=== PATIENT | female | born 1960 | race Caucasian/White ===

== ENCOUNTER 2020-04-13 11:06 | Outpatient (RCR) | payer MEDICARE, OTHER, MEDICAID, SELFPAY | END 2020-08-21 11:43 | disposition home or self-care (01) | LOC: HO.WCC 11:06 | PROVIDERS: PCP Nurse Practitioner Family; Visit Provider Physician Assistant | DX: Z09 Encounter for follow-up examination after completed treatment for conditions other than malignant neoplasm (principal); E11.51 Type 2 diabetes mellitus with diabetic peripheral angiopathy without gangrene | CPT/HCPCS: 11042; 87071; 87077; 87147; 87186; 87205; 97597; 97605; 99212 ==

== ENCOUNTER → 2020-04-24 13:15 | Outpatient (BNVA) | payer MEDICARE, OTHER, MEDICAID, SELFPAY | PROVIDERS: PCP Family Medicine; Visit Provider Internal Medicine | DX: E11.628 Type 2 diabetes mellitus with other skin complications (principal); Z79.899 Other long term (current) drug therapy | CPT/HCPCS: 99212 ==

== ENCOUNTER → 2020-05-03 13:05 | Outpatient (BNVA) | payer MEDICARE, MEDICAID, SELFPAY | PROVIDERS: PCP Family Medicine; Referring Provider Family Medicine; Visit Provider Hospitalist | DX: J44.9 Chronic obstructive pulmonary disease, unspecified (principal); F17.200 Nicotine dependence, unspecified, uncomplicated; Z71.6 Tobacco abuse counseling; Z79.899 Other long term (current) drug therapy | CPT/HCPCS: 99212 ==

== ENCOUNTER 2020-05-28 11:10 | Inpatient (IN) | payer MEDICARE, MEDICAID, SELFPAY ==
[2020-05-28] VITALS (8 sets, daily range): BP systolic 133–168; BP diastolic 53–77; PULSE 59–75; RESP 16–19; TEMP 36.3–37.7; O2SAT 93–98; BMI 33.3
--- NOTE | 2020-05-28 11:44 | ED.WOUNDLAC ---
HPI - Wound/Laceration General Chief Complaint: Wound/Laceration Stated Complaint: FOOT PAIN Time Seen by Provider: 05/28/20 11:34 Source: patient Mode of arrival: ambulatory Limitations: no limitations History of Present Illness HPI narrative: Patient with foot ulceration for 5 months with no improvement. No antibiotics at this time. Patient states no fever or redness. patient is noncompliant with her follow up with ID, and wound clinic as I have reviewed her medical history Onset (ago): month(s) Extremity Location: right: foot Related Data Home Medications Medication Instructions Recorded Confirmed albuterol sulfate 90 mcg/actuation 2 puff PO Q4H PRN 04/24/20 05/28/20 aerosol inhaler aspirin 81 mg tablet,delayed 81 mg PO DAILY 04/24/20 05/28/20 release atorvastatin 40 mg tablet 40 mg PO BEDTIME 04/24/20 05/28/20 bupropion HCl 150 mg tablet,12 hr 150 mg PO BID 04/24/20 05/28/20 sustained-release cholecalciferol (vitamin D3) 50 50 mcg PO DAILY 04/24/20 05/28/20 mcg (2,000 unit) tablet furosemide 20 mg tablet 20 mg PO QAM 04/24/20 05/28/20 insulin degludec 100 unit/mL (3 12 unit SUBCUT QAM 04/24/20 05/28/20 mL) subcutaneous pen lancets 33 gauge #100 ea 04/24/20 05/03/20 lisinopril 10 mg tablet 10 mg PO DAILY 04/24/20 05/28/20 metformin 1,000 mg tablet 1,000 mg PO BIDWMEAL 04/24/20 05/28/20 omeprazole 20 mg capsule,delayed 20 mg PO DAILY 04/24/20 05/28/20 release gabapentin 600 mg tablet 600 mg PO TID 05/03/20 05/28/20 fluticasone propionate [Flovent 2 puff INHALATION BID 05/28/20 05/28/20 HFA] insulin aspart U-100 [Novolog 0 unit SUBCUT QIDACHS 05/28/20 05/28/20 Flexpen U-100 Insulin] methadone [Methadone Intensol] 95 mg DAILY 05/28/20 05/28/20 nicotine 1 patch TRANSDERMAL DAILY 05/28/20 05/28/20 nicotine (polacrilex) 2 mg BUCCAL Q2H PRN 05/28/20 05/28/20 Allergies Allergy/AdvReac Type Severity Reaction Status Date / Time No Known Allergies Allergy Verified 05/03/20 13:17 Review of Systems Constitutional: Constitutional: Reports no additional constitutional complaints Eyes: Eyes: Reports no additional eye complaints ENT: Denies dizziness Cardiovascular: Cardiovascular: Reports no additional cardiovascular complaints Respiratory: Respiratory: Reports as per HPI Gastrointestinal: Gastrointestinal: Reports no additional gastrointestinal complaints Genitourinary: Genitourinary: Reports no additional female genitourinary complaints Musculoskeletal: Musculoskeletal: Reports no additional musculoskeletal complaints Integumentary/Breasts: Skin/Breast: Denies rash Neurologic: Reports system reviewed and no additional complaints, except as documented, Denies dizziness and Denies Sensory deficit (Neuro) Psychiatric: Psychiatric: Denies anxiety [facility] Past Medical History Medical History (Updated 05/28/20 @ 13:36 by Cory Cook MD) COPD (chronic obstructive pulmonary disease) Diabetic foot infection Pulmonary nodule Tobacco dependence Social History Social History (Updated 05/03/20 @ 13:08 by Tram Taylor MA) Alcohol intake: never Smoking Status: Current every day smoker Tobacco Type: Cigarette Packs Per Day: 1 Cigarettes Per Day: 20.0 Years Smoked: 14 years old Use of substances other than those prescribed or required for medical reasons: No Advance Directives: No Advance Directives Information Provided: No Physical Exam Vital Signs: Vital Signs: Last Vital Signs Temp 99.5 F 05/28/20 11:15 Pulse 64 05/28/20 14:00 Resp 18 05/28/20 14:00 BP 154/63 H 05/28/20 14:00 Pulse Ox 96 05/28/20 14:00 Body Mass Index 33.3 Const: Other: Female looking older than stated age Nutritional Appearance: average body habitus Orientation/consciousness: oriented to person and patient oriented x3 Limitations: no limitations HENMT: Head: Yes normal to inspection Ears: external ears normal General nose exam: Normal external nose present Mouth: Normal oral and palatal mucosa present and oropharynx normal Throat: Yes posterior oropharynx normal Eyes: General: appearance normal, both eyes and all related structures Neck: Other: supple Neck: Yes normal visual inspection Chest: Chest palpation & inspection: normal inspection of the chest Resp: Auscultation: clear to auscultation bilaterally Cardio: Jugular venous distension: no JVD Rate: regular rate Rhythm: regular rhythm Heart sounds: S1 normal heart sound present and S2 normal heart sound present GI: Inspection: Yes normal to inspection Palpation (GI): Soft to palpation, nontender and No hepatosplenomegaly present Auscultation: normal bowel sounds : General: Yes no CVA tenderness Back/Spine/Pelvis: Back: no CVA tenderness Skin: General skin exam: no rashes or lesions noted Neuro: General: oriented to person and patient oriented x3 Cranial nerves: Yes CN's II-XII intact bilaterally Motor exam (neuro): 5/5 motor strength present throughout Sensory Exam: No Sensory deficit (Neuro) Extrem: Other: right sole with large ulcer good margins, some pus drainage but not overtly infected, there is a sinus with pus drainage Psych: Appearance: grossly normal Course Course Course Narrative: patient with osteo on xray with a sinus draining pus will start abx and admit Reevaluation(s) Reevaluation #1: discussed with Dr. Spence and Dr. Caro and they agree with plan MDM - Wound/Laceration MDM Narrative Medical decision making narrative: Increasing pain and lytic lesion on foot xray will admit for osteo, increasing elevated WBC 17. Lab Data Result diagrams: 05/28/20 12:33 05/28/20 12:33 Labs: Lab Results 05/28/20 05/28/20 05/28/20 Range/Units 12:33 12:33 12:33 WBC 17.3 H (4.8-10.8) X10*3/uL RBC 4.02 L (4.20-5.50) X10*6/uL Hgb 11.5 L (12.0-16.0) g/dl Hct 35.8 L (37-47) % MCV 89.1 (80-98) fL MCH 28.6 (27.0-33.0) pg MCHC 32.1 (31.0-35.0) g/dl RDW 13.4 (11.0-16.0) % Plt Count 275 (160-400) X10*3/uL MPV 10.5 (9.4-12.3) fL Immature Gran % (Auto) 0.5 H (0.0-0.4) % Neut % (Auto) 85.6 H (45-73) % Lymph % (Auto) 7.4 L (20-40) % [place] % (Auto) 6.1 (2-11) % Eos % (Auto) 0.2 (0-4) % Baso % (Auto) 0.2 (0-2) % Lymph # (Auto) 1.3 (1.2-4.9) X10*3/uL [place] # (Auto) 1.1 (0.1-1.2) X10*3/uL Eos # (Auto) 0.0 (0.0-0.4) X10*3/uL Baso # (Auto) 0.0 (0.0-0.2) X10*3/uL Abs Immat Gran (auto) 0.08 H (0.00-0.03) X10*3/uL Absolute Neuts (auto) 14.8 H (2.0-8.3) X10*3/uL Absolute Nucleated RBC 0.000 (0.0-0.012) X10*3/uL Nucleated RBC % (auto) 0.0 (0.0-0.2) /100WBC ESR 83 H (0-20) MM/HR Sodium 137 (135-145) mmol/L Potassium 4.0 (3.3-5.1) mmol/l Chloride 99 (96-108) mmol/L Carbon Dioxide 30 H (22-29) mmol/L Anion Gap 12 (12-20) BUN 10 (9-16) mg/dL Creatinine 0.76 (0.5-1.4) mg/dL Estim Creat Clear Calc 69.4 Estimated GFR > 60 Random Glucose 274 H (60-115) mg/dL Calcium 9.0 (8.4-10.2) mg/dL Discharge Plan Discharge Clinical Impression: Diabetic foot infection Osteomyelitis Qualifiers: Osteomyelitis type: chronic, with draining sinus Osteomyelitis location: foot Laterality: right Qualified Code(s): M86.471 - Chronic osteomyelitis with draining sinus, right ankle and foot Patient Disposition: Admitted As Inpatient
--- NOTE | 2020-05-28 12:08 | XR_ITS ---
EXAMINATION: XR FOOT, RIGHT CLINICAL INFORMATION: Rule out osteomyelitis COMPARISON: Previous x-ray October 2019, CT December 2019 and MRI January 2020 TECHNIQUE: AP, lateral, and oblique views of the right foot. FINDINGS: There is increasing of bone loss seen at the third, fourth and fifth MTT joints. There is increased sclerosis of the third fourth and fifth metatarsal shafts. There is an overlying soft tissue defect along the lateral and plantar soft tissues. Differential would include chronic osteomyelitis and Charcot changes. There are are degenerative changes of the midfoot. There are plantar calcaneal spurs. No radiopaque soft tissue foreign body is seen. XR/XR foot RT min 3V IMPRESSION: Increasing bone loss at the third fourth and fifth MTT joints, increasing sclerosis of the shafts of the third fourth and fifth metatarsal bones and large overlying plantar and lateral soft tissue ulcer. Differential would include chronic osteomyelitis and Charcot changes.
[2020-05-28 12:46] LABS: Basophils Percent Auto 0.2 % (0-2); Eosinophils Percent Auto 0.2 % (0-4); Hematocrit 35.8 % (37-47); Hemoglobin 11.5 g/dl (12.0-16.0); Imm Gran Abs Auto 0.08 X10*3/uL (0.00-0.03); Imm Gran Pct Auto 0.5 % (0.0-0.4); Lymphocytes Absolute Auto 1.3 X10*3/uL (1.2-4.9); Lymphocytes Percent Auto 7.4 % (20-40); MANUAL DIFF FLAG NO; Mean Corpuscular HGB Conc 32.1 g/dl (31.0-35.0); Mean Corpuscular Hemoglobin 28.6 pg (27.0-33.0); Mean Corpuscular Volume 89.1 fL (80-98); Mean Platelet Volume 10.5 fL (9.4-12.3); Monocytes Absolute Auto 1.1 X10*3/uL (0.1-1.2); Monocytes Percent Auto 6.1 % (2-11); Neutrophils Absolute Auto 14.8 X10*3/uL (2.0-8.3); Neutrophils Percent Auto 85.6 % (45-73); Platelet Count 275 X10*3/uL (160-400); Red Blood Count 4.02 X10*6/uL (4.20-5.50); Red Cell Distribution Width 13.4 % (11.0-16.0); White Blood Count 17.3 X10*3/uL (4.8-10.8)
--- NOTE | 2020-05-28 13:04 | PC.NURSE ---
Patient arrives complaining of ulcer on bottom of right foot. Reports significant increase in pain. Being seen by wound clinic. Patient is alert and oriented. Respirations regular and even. Skin otherwise PWD. Seen by Dr. Cook. Labs drawn by fiberglass product tester. Awaiting results.
[2020-05-28 13:06] LABS: Anion Gap 12 (12-20); Blood Urea Nitrogen 10 mg/dL (9-16); Carbon Dioxide 30 mmol/L (22-29); Chloride 99 mmol/L (96-108); Creatinine Clr Calc Pharmacy 69.4; Estimated Glomerular Filt Rate > 60; Glucose Random 274 mg/dL (60-115); Sodium 137 mmol/L (135-145)
[2020-05-28 13:33] LABS: Erythrocyte Sedimentation Rate 83 MM/HR (0-20)
[2020-05-28] MEDS: Piperacillin Sodium/Tazobactam 3.375 GM in 0.9 % Sodium Chloride 50 ML IV ×2 (13:47→21:05)
--- NOTE | 2020-05-28 13:53 | PC.NURSE ---
IV established and blood cultures drawn. Patient tolerated well. Raman Sarabia Will continue to monitor.
--- NOTE | 2020-05-28 14:49 | PC.NURSE ---
Hung Vancomycin and medicated with patients dose of methadone. Patient tolerating well. Appears comfortable at this time with regular, even, and nonlabored respirations. VSS. Skin otherwise PWD. Awaiting admission orders.
[2020-05-28 15:17] LABS: COVID-19 Test Negative (Negative)
--- NOTE | 2020-05-28 15:42 | P.HPHOSP_ITS ---
History of Present Illness Date of Service: 05/28/20 Chief Complaint: foot pain This is a 60 yo F with a PMH of diabetes and prior diabetic foot infections who presents presents to the hospital with complaints of right foot pain of several days duration. She reports associated chills at home but no fevers. She r eports she is complaint with her visits to the wound care clinic. She reports that she has had a diabetic shoe prescribed to her in the past, but she has not used this. SHe also reports that she completed IV anbitoiics earlier this year for osteo of the same. In the ED, she unnder went work up which showed Leukocytosis of 17, ESR 89, XR consistant with chronic osteo vs charcot changes. She has blood cultures drawn, given a dose of vancomcyin+zosyn and admission was requested. Review of Systems Review of Systems: General - denies fevers, +chills HEENT -denies blurred vision, denies headache, denies sore throat Cardiovascular - denies chest pain or palpitations, denies edema Respiratory - denies shortness of breath, coughing, wheezing Gastrointestinal - denies abdominal pain, nausea, vomiting, diarrhea - denies flank pain, denies dysuria, denies frequency or urgency Musculoskeletal - R foot pain, +ucleration, +drainage Neurological - denies any focal weakness or numbness Skin, denies any bruising or redness Psychiatric - denies any suicidal ideation, hallucinations, homicidal ideation Endocrinology - denies intolerance to hot / cold temperatures ENT: Denies dizziness Neurologic: Reports system reviewed and no additional complaints, except as documented, Denies dizziness and Denies Sensory deficit (Neuro) [facility] Medical History (Updated 05/28/20 @ 16:04 by Leo Spence MD) Chronic prescription opiate use COPD (chronic obstructive pulmonary disease) Depression Diabetes mellitus Diabetic foot infection Dyslipidemia Glaucoma Pulmonary emboli Pulmonary nodule Tobacco dependence Family History (Updated 05/28/20 @ 16:05 by Leo Spence MD) Other CVA (cerebral vascular accident) Surgical History (Updated 05/28/20 @ 16:06 by Leo Spence MD) Cataract extraction status, left eye Cataract extraction status, right eye Hx of cholecystectomy Social History (Updated 05/03/20 @ 13:08 by Tram Taylor MA) Alcohol intake: never Smoking Status: Current every day smoker Tobacco Type: Cigarette Packs Per Day: 1 Cigarettes Per Day: 20.0 Years Smoked: 14 years old Use of substances other than those prescribed or required for medical reasons: No Advance Directives: No Advance Directives Information Provided: No Meds Allergies Allergy/AdvReac Type Severity Reaction Status Date / Time No Known Allergies Allergy Verified 05/03/20 13:17 Home Medications Medication Instructions Recorded Confirmed Type albuterol sulfate 90 mcg/actuation 2 puff PO Q4H PRN 04/24/20 05/28/20 History aerosol inhaler aspirin 81 mg tablet,delayed 81 mg PO DAILY 04/24/20 05/28/20 History release atorvastatin 40 mg tablet 40 mg PO BEDTIME 04/24/20 05/28/20 History bupropion HCl 150 mg tablet,12 hr 150 mg PO BID 04/24/20 05/28/20 History sustained-release cholecalciferol (vitamin D3) 50 50 mcg PO DAILY 04/24/20 05/28/20 History mcg (2,000 unit) tablet furosemide 20 mg tablet 20 mg PO QAM 04/24/20 05/28/20 History insulin degludec 100 unit/mL (3 12 unit SUBCUT QAM 04/24/20 05/28/20 History mL) subcutaneous pen lancets 33 gauge #100 ea 04/24/20 05/03/20 History lisinopril 10 mg tablet 10 mg PO DAILY 04/24/20 05/28/20 History metformin 1,000 mg tablet 1,000 mg PO BIDWMEAL 04/24/20 05/28/20 History omeprazole 20 mg capsule,delayed 20 mg PO DAILY 04/24/20 05/28/20 History release gabapentin 600 mg tablet 600 mg PO TID 05/03/20 05/28/20 History fluticasone propionate [Flovent 2 puff INHALATION BID 05/28/20 05/28/20 History HFA] insulin aspart U-100 [Novolog 0 unit SUBCUT QIDACHS 05/28/20 05/28/20 History Flexpen U-100 Insulin] methadone [Methadone Intensol] 95 mg DAILY 05/28/20 05/28/20 History nicotine 1 patch TRANSDERMAL DAILY 05/28/20 05/28/20 History nicotine (polacrilex) 2 mg BUCCAL Q2H PRN 05/28/20 05/28/20 History Physical Exam Vital Signs and Narrative: Vital Signs: Last Vital Signs Temp 99.5 F 05/28/20 11:15 Pulse 64 05/28/20 14:00 Resp 18 05/28/20 14:00 BP 154/63 H 05/28/20 14:00 Pulse Ox 96 05/28/20 14:00 Body Mass Index 33.3 Constitutional - Awake and Alert, No apparent distress Eyes - PERRLA, EOMI Cardiovascular - S1S2, RRR, No edema Respiratory - Normal lung expansion, Normal respiratory effort, No respiratory distress, CTA bilaterally Gastrointestinal - NT / ND; +BS; No rebound or guarding - No CVA tenderness Extremities - RLE warm compared to L Musculoskeletal - Normal inspection, normal ROM Skin - RLE plantar surface deep 5-6cm x 3-4 ucleration with purulent drainage Neurological - Alert & oriented x3, No focal deficit Psychological - Appropriate affect Neuro: Sensory Exam: No Sensory deficit (Neuro) Results Labs CBC and Chem 7: 05/28/20 12:33 05/28/20 12:33 Labs: Laboratory Results - last 24 hr 05/28/20 05/28/20 05/28/20 12:33 12:33 12:33 MCV 89.1 MCH 28.6 MCHC 32.1 RDW 13.4 Plt Count 275 MPV 10.5 Immature Gran % (Auto) 0.5 H Neut % (Auto) 85.6 H Lymph % (Auto) 7.4 L [place] % (Auto) 6.1 Eos % (Auto) 0.2 Baso % (Auto) 0.2 Lymph # (Auto) 1.3 [place] # (Auto) 1.1 Eos # (Auto) 0.0 Baso # (Auto) 0.0 Abs Immat Gran (auto) 0.08 H Absolute Neuts (auto) 14.8 H Absolute Nucleated RBC 0.000 Nucleated RBC % (auto) 0.0 ESR 83 H Anion Gap 12 Estim Creat Clear Calc 69.4 Estimated GFR > 60 Random Glucose 274 H Calcium 9.0 COVID-19 (SONG) COVID-19 Clin Com 05/28/20 14:47 MCV MCH MCHC RDW Plt Count MPV Immature Gran % (Auto) Neut % (Auto) Lymph % (Auto) [place] % (Auto) Eos % (Auto) Baso % (Auto) Lymph # (Auto) [place] # (Auto) Eos # (Auto) Baso # (Auto) Abs Immat Gran (auto) Absolute Neuts (auto) Absolute Nucleated RBC Nucleated RBC % (auto) ESR Anion Gap Estim Creat Clear Calc Estimated GFR Random Glucose Calcium COVID-19 (SONG) Negative COVID-19 Clin Com See Note Imaging Radiologist's Impressions: Impressions Foot X-Ray 05/28/20 12:08 IMPRESSION: Increasing bone loss at the third fourth and fifth MTT joints, increasing sclerosis of the shafts of the third fourth and fifth metatarsal bones and large overlying plantar and lateral soft tissue ulcer. Differential would include chronic osteomyelitis and Charcot changes. Assessment and Plan (1) Diabetes mellitus: Status: Acute (2) Osteomyelitis: Qualifiers: Laterality: right Osteomyelitis location: foot Osteomyelitis type: chronic, with draining sinus Qualified Code(s): M86.471 - Chronic osteomyelitis with draining sinus, right ankle and foot Status: Acute (3) Diabetic foot infection: Status: Acute This is a 60 yo F with a PMH of DM who presents to the hospital with complaints of R foot pain, swelling and drainage with associated chills. She has has previous OM of the RLE which was treated with IV antibiotics x 6 weeks. She reports that her foot did get better but has become worse over the last several days. She endorses continual smoking. 1. Diabetic Foot infection draining purulent discharge broad spectrum antibiotics -- vancomcyin + zosyn ID and General Surgery consults no signs of sepsis 2. Diabetes lantus + sliding scale POC QIDAC Diabetic Diet 3. HTN lisinopril 4. Chronic opiate dependence continue her methadone 5. Nicotine use patch/gum have advised her cessation 6. PAD statin, aspirin, tobacco cessation 7. Mood continue her home meds Full Code DVT pptx, lovenox
--- NOTE | 2020-05-28 16:01 | PC.NURSE ---
Patient asleep and appears comfortable. Respirations regular and even. Skin otherwise PWD. IV antibiotics almost finished infusing. Awaiting bed assignment.
--- NOTE | 2020-05-28 16:43 | PM.CNGS ---
History of Present Illness Consult details Consult date: 05/28/20 Narrative: 60-year-old female patient with a long history of diabetes and diabetic foot ulcer involving the right plantar surface. The ulcer has previously treated with IV antibiotics and she is currently undergoing [facility] with previous debridements. She presents to the emergency department today with increased pain in the right foot. Foot x-ray in the emergency department reveals: Increasing bone loss at the third fourth and fifth MTT joints, increasing sclerosis of the shafts of the third fourth and fifth metatarsal bones and large overlying plantar and lateral soft tissue ulcer. Differential would include chronic osteomyelitis and Charcot changes. She was found to have an elevated WBC of 17, and is subsequently admitted to the hospitalist service for IV antibiotics. Surgical consultation was requested for wound management and possible debridement. Review of Systems Constitutional: Constitutional: Reports chills, Denies fever(s), Denies headache(s) and Denies poor appetite ENT: Denies dizziness and Denies headache(s) Cardiovascular: Cardiovascular: Denies chest pain, Denies rapid heart rate, Denies palpitations and Denies slow heart rate Respiratory: Respiratory: Denies chest congestion, Denies cough, Denies pain on inspiration and Denies wheezing Gastrointestinal: Gastrointestinal: Denies abdominal pain, Denies bloating, Denies change in stool character, Denies constipation, Denies diarrhea, Denies nausea, Denies vomiting and Denies hematemesis Musculoskeletal: Musculoskeletal: Denies back pain, Denies arthralgias, Denies joint swelling and Denies numbness Integumentary/Breasts: Skin/Breast: Denies change in pigmentation, Denies erythema and Denies rash Neurologic: Reports system reviewed and no additional complaints, except as documented, Denies confusion, Denies dizziness, Denies headache(s), Denies numbness and Denies Sensory deficit (Neuro) Psychiatric: Psychiatric: Denies anxiety, Denies confusion and Denies depression Endocrine: Endocrine: Denies palpitations Hematologic/Lymphatic: Hematologic/Lymphatic: Denies easy bleeding, Denies easy bruising and Denies lymphadenopathy Allergic/Immunologic: Allergic/Immunologic: Denies wheezing PMFSH Past Medical History Medical History Chronic prescription opiate use COPD (chronic obstructive pulmonary disease) Depression Diabetes mellitus Diabetic foot infection Dyslipidemia Glaucoma Pulmonary emboli Pulmonary nodule Tobacco dependence Family History Family History Other CVA (cerebral vascular accident) Surgical History Surgical History Cataract extraction status, left eye Cataract extraction status, right eye Hx of cholecystectomy Social History Social History Alcohol intake: never Smoking Status: Current every day smoker Tobacco Type: Cigarette Packs Per Day: 1 Cigarettes Per Day: 20.0 Years Smoked: 14 years old Use of substances other than those prescribed or required for medical reasons: No Advance Directives: No Advance Directives Information Provided: No Meds Allergies Allergy/AdvReac Type Severity Reaction Status Date / Time No Known Allergies Allergy Verified 05/03/20 13:17 Home Medications Medication Instructions Recorded Confirmed Type albuterol sulfate 90 mcg/actuation 2 puff PO Q4H PRN 04/24/20 05/28/20 History aerosol inhaler aspirin 81 mg tablet,delayed 81 mg PO DAILY 04/24/20 05/28/20 History release atorvastatin 40 mg tablet 40 mg PO BEDTIME 04/24/20 05/28/20 History bupropion HCl 150 mg tablet,12 hr 150 mg PO BID 04/24/20 05/28/20 History sustained-release cholecalciferol (vitamin D3) 50 50 mcg PO DAILY 04/24/20 05/28/20 History mcg (2,000 unit) tablet furosemide 20 mg tablet 20 mg PO QAM 04/24/20 05/28/20 History insulin degludec 100 unit/mL (3 12 unit SUBCUT QAM 04/24/20 05/28/20 History mL) subcutaneous pen lancets 33 gauge #100 ea 04/24/20 05/03/20 History lisinopril 10 mg tablet 10 mg PO DAILY 04/24/20 05/28/20 History metformin 1,000 mg tablet 1,000 mg PO BIDWMEAL 04/24/20 05/28/20 History omeprazole 20 mg capsule,delayed 20 mg PO DAILY 04/24/20 05/28/20 History release gabapentin 600 mg tablet 600 mg PO TID 05/03/20 05/28/20 History fluticasone propionate [Flovent 2 puff INHALATION BID 05/28/20 05/28/20 History HFA] insulin aspart U-100 [Novolog 0 unit SUBCUT QIDACHS 05/28/20 05/28/20 History Flexpen U-100 Insulin] methadone [Methadone Intensol] 95 mg DAILY 05/28/20 05/28/20 History nicotine 1 patch TRANSDERMAL DAILY 05/28/20 05/28/20 History nicotine (polacrilex) 2 mg BUCCAL Q2H PRN 05/28/20 05/28/20 History Physical Exam Vital Signs: Vital Signs: Last Vital Signs Temp 99.5 F 05/28/20 11:15 Pulse 64 05/28/20 14:00 Resp 18 05/28/20 14:00 BP 154/63 H 05/28/20 14:00 Pulse Ox 96 05/28/20 14:00 Body Mass Index 33.3 Const: Other: Patient is in room 18 of the emergency department sleeping, response to voice but very somnolent General: No confusion Orientation/consciousness: No confusion Resp: Other: breathing comfortably on room air, no apparent respiratory distress, no cough no stridor Cardio: Other: regular rate and rhythm, no JVD GI: Other: soft and nondistended, Skin: Other: warm and dry, no rash Neuro: General: No confusion Sensory Exam: No Sensory deficit (Neuro) Extrem: Other: right foot with a plantar ulcer on the lateral surface with fibrin is exudate overlying which appears to be some granulation tissue. No exposed bone noted. No surrounding erythema in the skin. Small amount of purulence discharge is noted with palpation. No ulceration noted in the left foot. Ankle/foot/toe images: 1. Site of ulceration right foot Results Labs Result diagrams: 05/28/20 12:33 05/28/20 12:33 Labs: Abnormal lab results 05/28/20 05/28/20 05/28/20 Range/Units 12:33 12:33 12:33 WBC 17.3 H (4.8-10.8) X10*3/uL RBC 4.02 L (4.20-5.50) X10*6/uL Hgb 11.5 L (12.0-16.0) g/dl Hct 35.8 L (37-47) % Immature Gran % (Auto) 0.5 H (0.0-0.4) % Neut % (Auto) 85.6 H (45-73) % Lymph % (Auto) 7.4 L (20-40) % Abs Immat Gran (auto) 0.08 H (0.00-0.03) X10*3/uL Absolute Neuts (auto) 14.8 H (2.0-8.3) X10*3/uL ESR 83 H (0-20) MM/HR Carbon Dioxide 30 H (22-29) mmol/L Random Glucose 274 H (60-115) mg/dL Short CBC 05/28/20 Range/Units 12:33 WBC 17.3 H (4.8-10.8) X10*3/uL Hgb 11.5 L (12.0-16.0) g/dl Hct 35.8 L (37-47) % Plt Count 275 (160-400) X10*3/uL BMP 05/28/20 12:33 Sodium 137 Potassium 4.0 Chloride 99 Carbon Dioxide 30 H BUN 10 Creatinine 0.76 Calcium 9.0 All other labs normal. X-ray right foot:Increasing bone loss at the third fourth and fifth MTT joints, increasing sclerosis of the shafts of the third fourth and fifth metatarsal bones and large overlying plantar and lateral soft tissue ulcer. Differential would include chronic osteomyelitis and Charcot changes. Assessment and Plan (1) Diabetic foot infection: Status: Acute Patient presents with a nonhealing right foot wound with associated with diabetes mellitus. Patient has previously undergone treatment with prolonged IV antibiotics. She currently is being followed by the [facility] but apparently missed several visits as well. The ulcer is located a very difficult location and she is certainly at risk for limb loss. One option may be debridement with placement of a wound VAC. Will discuss with the primary team in the morning. Procedures Abscess I/D Date of Service: 05/28/20
--- NOTE | 2020-05-28 16:45 | PC.NURSE ---
Called floor to give report, awaiting discharge upstairs, unable to give report until after 530.
--- NOTE | 2020-05-28 18:00 | PC.NURSE ---
Patient remains comfortable resting on stretcher. Respirations remain regular and even. Awaiting available bed on med/surg.
[2020-05-28] MEDS: Enoxaparin Sodium 40 MG/0.4 ML SYRINGE SUBCUT (21:06)
[2020-05-28] MEDS: Insulin Glargine,Hum.rec.anlog 100 UNIT/ML 10 ML VIAL 10 UNIT SUBCUT (21:06)
[2020-05-28] MEDS: Acetaminophen 325 MG TABLET 650 MG PO (21:07)
[2020-05-28] MEDS: Gabapentin 600 MG TABLET PO (21:07)
[2020-05-28] MEDS: Atorvastatin Calcium 40 MG TABLET PO (21:07)
[2020-05-28 21:11] LABS: Glucose, Whole Blood 205 mg/dL (60-115)
[2020-05-28] MEDS: Insulin Lispro 100 UNIT/ML 3 ML VIAL SUBCUT (21:20)
[2020-05-28] MEDS: 0.9 % Sodium Chloride Flush 3 ML SYRINGE IVFLUSH (21:20)
[2020-05-29] VITALS (8 sets, daily range): BP systolic 112–157; BP diastolic 54–74; PULSE 56–78; RESP 15–19; TEMP 36.1–36.9; O2SAT 95–97; BMI 33.3
--- NOTE | 2020-05-29 | US_ITS ---
EXAMINATION: NONINVASIVE ASSESSMENT OF THE ARTERIES OF BOTH LOWER EXTREMITIES WITH PVR EXAM AND BILATERAL LOWER EXTREMITY DUPLEX CLINICAL INFORMATION: None healing ulcer TECHNIQUE: Ankle pulse volume recordings, ankle pressure measurements and ankle brachial indices were obtained of the lower extremity arterial system bilaterally in addition to duplex Doppler techniques with wave form analysis and measurement of velocities in the common femoral, profunda femoral, superficial femoral, popliteal and tibial arteries. The study was performed only at rest. COMPARISON: Previous exam October 2019 and January 2020 FINDINGS: a) AT REST: RIGHT LE. The right ankle-brachial index is: 0.94 2. Right ankle pressure: normal. 3. Right ankle PVR waveform: normal. 4. Right direct duplex Doppler findings: There is evidence of atherosclerotic disease. No visible stenosis is seen. * Common femoral artery: 128 cm/s, Diastolic flow reversal: Yes * Superficial femoral artery (proximal, mid, distal): 166, 181 and 197 cm/s, Diastolic flow reversal: No * Popliteal artery: 121 cm/s, Diastolic flow reversal: No * Posterior tibial artery: 67 cm/s, Diastolic flow reversal: No LEFT LE. The left ankle-brachial index is: 1.1 2. Left ankle pressure: normal. 3. Left ankle PVR waveform: Decreased compared to the right 4. Left direct duplex Doppler findings: There is evidence of atherosclerotic disease. The left distal superficial femoral artery is difficult to visualize. * Common femoral artery: 138 cm/s, Diastolic flow reversal: Yes * Superficial femoral artery (proximal, mid, distal): 155, 186 and 62 cm/s, Diastolic flow reversal: No * Popliteal artery: 104 cm/s, Diastolic flow reversal: No * Posterior tibial artery: 104 cm/s, Diastolic flow reversal: No AURELIANO Reference: * >0.97-1.25 = normal - no significant arterial disease * 0.75-0.96 = mild peripheral arterial disease * 0.5-0.74 = moderate peripheral arterial disease * <0.50 = severe peripheral arterial disease US/US arterial duplex LE BI IMPRESSION: The ankle brachial indices are normal. The right AURELIANO is 0.94 and the left AURELIANO is 1.1. Peak systolic velocities are normal throughout. There are abnormal waveforms distal to the common femoral arteries bilaterally. The left distal superficial femoral artery is difficult to visualize.
[2020-05-29] MEDS: Piperacillin Sodium/Tazobactam 3.375 GM in 0.9 % Sodium Chloride 50 ML IV ×4 (02:05→20:36)
[2020-05-29] MEDS: 0.9 % Sodium Chloride Flush 3 ML SYRINGE IVFLUSH ×4 (02:06→23:32)
[2020-05-29] MEDS: vancomycin HCL 1,000 MG in 0.9 % Sodium Chloride 250 ML 270 MG IV ×2 (05:48→18:50)
[2020-05-29 07:01] LABS: MANUAL DIFF FLAG NO
[2020-05-29 07:10] LABS: Basophils Absolute Auto 0.1 X10*3/uL (0.0-0.2); Basophils Percent Auto 0.4 % (0-2); Eosinophils Absolute Auto 0.1 X10*3/uL (0.0-0.4); Eosinophils Percent Auto 0.3 % (0-4); Hematocrit 32.5 % (37-47); Hemoglobin 10.3 g/dl (12.0-16.0); Imm Gran Abs Auto 0.06 X10*3/uL (0.00-0.03); Imm Gran Pct Auto 0.4 % (0.0-0.4); Lymphocytes Absolute Auto 1.9 X10*3/uL (1.2-4.9); Mean Corpuscular HGB Conc 31.7 g/dl (31.0-35.0); Mean Corpuscular Hemoglobin 28.5 pg (27.0-33.0); Mean Platelet Volume 11.2 fL (9.4-12.3); Monocytes Absolute Auto 1.2 X10*3/uL (0.1-1.2); Monocytes Percent Auto 8.2 % (2-11); Neutrophils Absolute Auto 11.4 X10*3/uL (2.0-8.3); Neutrophils Percent Auto 77.7 % (45-73); Platelet Count 266 X10*3/uL (160-400); Red Blood Count 3.61 X10*6/uL (4.20-5.50); Red Cell Distribution Width 13.4 % (11.0-16.0); White Blood Count 14.7 X10*3/uL (4.8-10.8)
[2020-05-29 07:44] LABS: Anion Gap 12 (12-20); Blood Urea Nitrogen 14 mg/dL (9-16); Calcium 8.4 mg/dL (8.4-10.2); Carbon Dioxide 29 mmol/L (22-29); Chloride 101 mmol/L (96-108); Creatinine Clr Calc Pharmacy 66.7; Estimated Glomerular Filt Rate > 60; Glucose Random 209 mg/dL (60-115); Potassium 3.3 mmol/l (3.3-5.1); Sodium 139 mmol/L (135-145)
[2020-05-29 08:14] LABS: Glucose, Whole Blood 234 mg/dL (60-115)
[2020-05-29] MEDS: Fluticasone Propionate 100 MCG BLST.W.DEV 2 PUFF INHALE ×2 (08:14→20:28)
[2020-05-29] MEDS: Insulin Lispro 100 UNIT/ML 3 ML VIAL SUBCUT ×4 (08:18→20:42)
[2020-05-29] MEDS: Nicotine 14 MG PATCH.TD24 TRANSDERMA (08:19)
[2020-05-29] MEDS: lisinopriL 10 MG TABLET PO (08:20)
[2020-05-29] MEDS: buPROPion HCl XL 300 MG TAB.ER.24H PO (08:20)
[2020-05-29] MEDS: Aspirin Enteric Coated 81 MG TABLET.DR PO (08:20)
[2020-05-29] MEDS: Gabapentin 600 MG TABLET PO ×3 (08:20→20:38)
[2020-05-29] MEDS: Cholecalciferol (Vitamin D3) 25 MCG TABLET 50 MCG PO (08:20)
[2020-05-29] MEDS: Omeprazole 20 MG CAPSULE.DR PO (08:20)
[2020-05-29] MEDS: Furosemide 20 MG TABLET PO (08:20)
--- NOTE | 2020-05-29 09:00 | P.PNIM_ITS ---
Subjective Subjective Date of Service: 05/29/20 Interval History: seen and examined foot pain controlled no other complaints Review of Systems General - denies fevers, +chills Cardiovascular - denies chest pain or palpitations, denies edema Respiratory - denies shortness of breath, coughing, wheezing Gastrointestinal - denies abdominal pain, nausea, vomiting, diarrhea Musculoskeletal - R foot pain, +ucleration, +drainage Physical Exam Vital Signs: Vital Signs: Last Vital Signs Temp 98.3 F 05/29/20 08:02 Pulse 72 05/29/20 08:20 Resp 18 05/29/20 08:02 BP 152/63 H 05/29/20 08:20 Pulse Ox 97 05/29/20 08:02 Body Mass Index 33.3 Constitutional - Awake and Alert, No apparent distress Eyes - PERRLA, EOMI Cardiovascular - S1S2, RRR, No edema Respiratory - Normal lung expansion, Normal respiratory effort, No respiratory distress, CTA bilaterally Gastrointestinal - NT / ND; +BS; No rebound or guarding - No CVA tenderness Extremities - RLE warm compared to L Musculoskeletal - Normal inspection, normal ROM Skin - dressing in place Neurological - Alert & oriented x3, No focal deficit Psychological - Appropriate affect Objective Data Current Medications Generic Name Dose Route Start Last Admin Trade Name Freq PRN Reason Stop Dose Admin Acetaminophen 650 mg 05/28/20 20:10 05/28/20 21:07 Acetaminophen 325 Mg Tablet PO 650 mg Q6H PRN Administration Pain and Fever Aspirin 81 mg 05/29/20 09:00 05/29/20 08:20 Aspirin Enteric Coated 81 Mg Tablet.Dr PO 81 mg DAILY PRECIOUS Administration Atorvastatin Calcium 40 mg 05/28/20 21:00 05/28/20 21:07 Atorvastatin Calcium 40 Mg Tablet PO 40 mg BEDTIME PRECIOUS Administration Bupropion HCl 300 mg 05/29/20 09:00 05/29/20 08:20 Bupropion Hcl Xl 300 Mg Tab.Er.24h PO 300 mg DAILY PRECIOUS Administration Docusate Sodium 100 mg 05/28/20 20:10 Docusate Sodium 100 Mg Capsule PO DAILY PRN Constipation Enoxaparin Sodium 40 mg 05/28/20 21:00 05/28/20 21:06 Enoxaparin Sodium 40 Mg/0.4 Ml Syringe SUBCUT 40 mg Q24H PRECIOUS Administration Fluticasone Propionate 2 puff 05/29/20 08:00 05/29/20 08:14 Fluticasone Propionate 100 Mcg Blst.W.Dev INHALE 2 puff RBID PRECIOUS Administration Furosemide 20 mg 05/29/20 09:00 05/29/20 08:20 Furosemide 20 Mg Tablet PO 20 mg DAILY PRECIOUS Administration Protocol Gabapentin 600 mg 05/28/20 21:00 05/29/20 08:20 Gabapentin 600 Mg Tablet PO 600 mg TID PRECIOUS Administration Vancomycin HCl 1,000 mg/ 270 mls @ 270 mls/hr 05/29/20 06:00 05/29/20 07:09 Sodium Chloride IV Infused Q12H PRECIOUS Infusion Piperacillin Sod/Tazobactam 50 mls @ 100 mls/hr 05/28/20 20:00 05/29/20 08:55 Sod 3.375 gm/ Sodium Chloride IV Infused Q6H PRECIOUS Infusion Insulin Human Lispro 0 unit 05/28/20 20:10 05/29/20 08:18 Insulin Lispro 100 Unit/Ml 3 Ml Vial SUBCUT 4 unit QIDACHS [facility] Administration Protocol Lisinopril 10 mg 05/29/20 09:00 05/29/20 08:20 Lisinopril 10 Mg Tablet PO 10 mg DAILY [facility] Administration Protocol Methadone HCl 90 mg 05/29/20 09:00 Methadone Hcl 1 Mg/0.1 Ml Oral.Conc PO DAILY PRECIOUS Nicotine 14 mg 05/29/20 09:00 05/29/20 08:19 Nicotine 14 Mg Patch.Td24 TRANSDERMA 14 mg DAILY PRECIOUS Administration Nicotine Polacrilex 2 mg 05/28/20 20:10 Nicotine Polacrilex 2 Mg Gum BUCCAL Q2H PRN CRAVINGS Omeprazole 20 mg 05/29/20 09:00 05/29/20 08:20 Omeprazole 20 Mg Capsule.Dr PO 20 mg DAILY PRECIOUS Administration Ondansetron HCl 4 mg 05/28/20 20:10 Ondansetron Hcl 4 Mg/2 Ml Vial IVPUSH Q8H PRN Nausea and Vomiting Pharmacy Consult 1 each 05/28/20 14:05 Consult Rx Perform Med Rec MISCELLANE ONCE PRN Consult order Pharmacy Consult 1 each 05/28/20 20:10 Consult Rx Vancomycin Dosing MISCELLANE DAILY PRN Consult order Sodium Chloride 3 ml 05/28/20 20:10 05/29/20 08:21 0.9 % Sodium Chloride Flush 3 Ml Syringe IVFLUSH 3 ml QSHIFT PRECIOUS Administration Vitamin D 50 mcg 05/29/20 09:00 05/29/20 08:20 Cholecalciferol (Vitamin D3) 25 Mcg Tablet PO 50 mcg DAILY PRECIOUS Administration Labs CBC & Chem 7: 05/29/20 06:13 05/29/20 06:13 Microbiology Microbiology Results: Microbiology 05/28/20 13:38 Blood - Venous Blood Culture - Preliminary 05/28/20 13:38 Blood - Venous Blood Culture - Preliminary Assessment and Plan (1) Diabetes mellitus: Status: Acute (2) Osteomyelitis: Status: Acute (3) Diabetic foot infection: Status: Acute Assessment and Plan: This is a 60 yo F with a PMH of DM who presents to the hospital with complaints of R foot pain, swelling and drainage with associated chills. She has has previous OM of the RLE which was treated with IV antibiotics x 6 weeks. She reports that her foot did get better but has become worse over the last several days. She endorses continual smoking. 1. Diabetic Foot infection vancomcyin/zosyn for now until blood cx negative ID consult Gen Surg input appreciated will ask vascular for input as well given her history of stenting f/u cultures 2. Diabetes lantus + sliding scale POC QIDAC Diabetic Diet 3. HTN lisinopril 4. Chronic opiate dependence continue her methadone 5. Nicotine use patch/gum have advised her cessation 6. PAD statin, aspirin, tobacco cessation 7. Mood continue her home meds Full Code DVT pptx, lovenox
[2020-05-29] MEDS: Acetaminophen 325 MG TABLET 650 MG PO (09:34)
--- NOTE | 2020-05-29 10:59 | MHC.CM.PN ---
nurse client care representative note electronic medical record reviewed along with case discussed with staff nurse and on multiple disciplinary rounds, met with patient explained the helen of the nurse client care representative ,in the transition from the hospital to home. patient reported that she lives with her and adult daughter they hep her with her poc and dressing changes and transportation to the [facility] wound clinic she also has history of substance abuse and goes to a methadone clinic, (she also has history of prescription opiod use for pain), she has no vna , no dme services presently , patient is active with the [facility] wound clinic . she was admitted as inpatient with diabetic ulcer. she has a surgical .vascular and id consult ordered. 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 home with no services vs home with vna for nursing (with patients permission imitated referrals to several vna agencies to see whom may have the nursing ability tita through weekend( pending culture reports and id consult s input . nurse client care representative to brenna loera for discharge needs. sef resumtpion of her methadone clinic ?resumption imedicately pst discharge with her [facility] wound
[2020-05-29 11:41] LABS: Glucose, Whole Blood 347 mg/dL (60-115)
--- NOTE | 2020-05-29 13:15 | PM.EVENT ---
Event Note Date of Service: 05/29/20 Event Note: Full consult dictated. Arterial testing ordered.
--- NOTE | 2020-05-29 13:26 | P.CNID_ITS ---
History of Present Illness Data of Consult Service Date: 05/29/20 Requesting physician: Leo Spence Primary Care Provider: Ellen Cheema MD [facility] Reason for consult: foot discomfort She presents to hospital with discomfort right foot. She has been using new diabetic foot shoes for last month. She feels they dont fit right. She has some increased oozing of purulent area foot She has XRay shows chronic osteomyelitis of foot She is seeing Wound Clinic Review of Systems Review of Systems: Yes all other systems are reviewed and are negative Constitutional: Constitutional: Denies headache(s) ENT: Denies dizziness and Denies headache(s) Musculoskeletal: Musculoskeletal: Denies numbness Neurologic: Reports system reviewed and no additional complaints, except as documented, Denies confusion, Denies dizziness, Denies headache(s), Denies numbness and Denies Sensory deficit (Neuro) Psychiatric: Psychiatric: Denies confusion PMFSH Past Medical History Medical History Chronic prescription opiate use COPD (chronic obstructive pulmonary disease) Depression Diabetes mellitus Diabetic foot infection Dyslipidemia Glaucoma Pulmonary emboli Pulmonary nodule Tobacco dependence Family History Family History Other CVA (cerebral vascular accident) Family history: reviewed and not pertinent Surgical History Surgical History Cataract extraction status, left eye Cataract extraction status, right eye Hx of cholecystectomy Social History Social History Household Members: Family Housing: Apartment Alcohol intake: never Smoking Status: Current every day smoker Tobacco Type: Cigarette Packs Per Day: 1 Cigarettes Per Day: 20.0 Years Smoked: 14 years old Second Hand Smoke Exposure: No service: Yes (hx on methadone) Current occupational status: unemployed Meds Allergies Allergy/AdvReac Type Severity Reaction Status Date / Time No Known Allergies Allergy Verified 05/03/20 13:17 Home Medications Medication Instructions Recorded Confirmed Type albuterol sulfate 90 mcg/actuation 2 puff PO Q4H PRN 04/24/20 05/28/20 History aerosol inhaler aspirin 81 mg tablet,delayed 81 mg PO DAILY 04/24/20 05/28/20 History release atorvastatin 40 mg tablet 40 mg PO BEDTIME 04/24/20 05/28/20 History bupropion HCl 150 mg tablet,12 hr 150 mg PO BID 04/24/20 05/28/20 History sustained-release cholecalciferol (vitamin D3) 50 50 mcg PO DAILY 04/24/20 05/28/20 History mcg (2,000 unit) tablet furosemide 20 mg tablet 20 mg PO QAM 04/24/20 05/28/20 History insulin degludec 100 unit/mL (3 12 unit SUBCUT QAM 04/24/20 05/28/20 History mL) subcutaneous pen lancets 33 gauge #100 ea 04/24/20 05/29/20 History lisinopril 10 mg tablet 10 mg PO DAILY 04/24/20 05/28/20 History metformin 1,000 mg tablet 1,000 mg PO BIDWMEAL 04/24/20 05/28/20 History omeprazole 20 mg capsule,delayed 20 mg PO DAILY 04/24/20 05/28/20 History release gabapentin 600 mg tablet 600 mg PO TID 05/03/20 05/28/20 History Flovent HFA 2 puff INHALATION BID 05/28/20 05/28/20 History insulin aspart U-100 [Novolog 0 unit SUBCUT QIDACHS 05/28/20 05/28/20 History Flexpen U-100 Insulin] methadone [Methadone Intensol] 95 mg DAILY 05/28/20 05/28/20 History nicotine 1 patch TRANSDERMAL DAILY 05/28/20 05/28/20 History nicotine (polacrilex) 2 mg BUCCAL Q2H PRN 05/28/20 05/28/20 History Physical Exam Vital Signs: Vital Signs: Last Vital Signs Temp 98.4 F 05/29/20 11:34 Pulse 56 05/29/20 11:34 Resp 18 05/29/20 11:34 BP 123/54 L 05/29/20 11:34 Pulse Ox 97 05/29/20 11:34 Body Mass Index 33.3 Const: General: No confusion Orientation/consciousness: No confusion HENMT: Head: Yes normal to inspection Resp: Effort & Inspection: normal respiratory effort Cardio: Rate: regular rate Rhythm: regular rhythm GI: Inspection: Yes normal to inspection : General: Yes no CVA tenderness Back/Spine/Pelvis: Back: no CVA tenderness Neuro: General: No confusion Sensory Exam: No Sensory deficit (Neuro) Extrem: Ankle/foot/toe images: 1. 3x6 cm area beefy red,mild exudate ulcer Assessment and Plan (1) Osteomyelitis: Qualifiers: Laterality: right Osteomyelitis location: foot Osteomyelitis type: chronic, with draining sinus Qualified Code(s): M86.471 - Chronic osteomyelitis with draining sinus, right ankle and foot Problem details: This is acute exacerbation of osteomyelitis right foot She has poorly fitting footwear as source for discomfort She has chronic osteomyelitis and organisms have included MRSA,proteus,Group A strep and Klebsiella. I had seen her last in office in April and her foot although not healing over did not have purulence but open area and foot today actually looks similar She has received IV antibiotics earlier in year She sees Wound Clinic and is seeing Vascular as well Status: Acute IV antibiotics while here Would not give PICC line with IV antibiotics for 6 weeks again as had this before and wound didnt heal over so would be pointless and potentially harmful Would see what results of Vascular evaluation is Would probably give po Doxycycline for two weeks outpatient and f/u with Wound Clinic and Vascular and obtain proper footware Would stop tobacco and maintain best possible diabetic control (2) Diabetes mellitus: Status: Acute Results Labs CBC & Chem 7: 05/31/20 04:55 05/31/20 05:00 Labs: Short CBC 05/29/20 Range/Units 06:13 WBC 14.7 H (4.8-10.8) X10*3/uL Hgb 10.3 L (12.0-16.0) g/dl Hct 32.5 L (37-47) % Plt Count 266 (160-400) X10*3/uL BMP 05/29/20 06:13 Sodium 139 Potassium 3.3 Chloride 101 Carbon Dioxide 29 BUN 14 Creatinine 0.79 Calcium 8.4 D Microbiology Microbiology Results: Microbiology 05/28/20 13:38 Blood - Venous Blood Culture - Preliminary 05/28/20 13:38 Blood - Venous Blood Culture - Preliminary
--- NOTE | 2020-05-29 14:43 | MHC.CM.PN ---
NURSE ENGINEERING OFFICER NOTE ACCEPPPTED BY ELIAS SHEFFIELD. IN [place] FOR POSSIBLE D/C THURSDAY -THU- THURSDAY BY KIRSTIN ENGINEERING OFFICER TO CONTINUE TO FOLLOW
--- NOTE | 2020-05-29 15:37 | CONS_ITS ---
DATE OF SERVICE: 05/29/2020 REASON FOR CONSULTATION: Nonhealing right lower extremity ulceration. HISTORY OF PRESENT ILLNESS: A 60-year-old female with diabetic foot ulcerations, presented with increasing pain and discomfort of the right lower extremity. She has reported some fevers and chills. She has been seen by the Wound Care Clinic. She had been treated with IV antibiotics for osteomyelitis. She actually was seen by me and on December 14, 2019 underwent plasty of the right popliteal artery by me as well. She now presents to us for vascular evaluation. PAST MEDICAL HISTORY: Significant for hypertension, hyperlipidemia, COPD, depression, diabetes, diabetic foot infection, glaucoma, pulmonary emboli, pulmonary nodule. PAST SURGICAL HISTORY: Includes the above-mentioned right lower extremity endovascular intervention, cataract extraction, right eye and left eye; and cholecystectomy. MEDICATIONS: Medication list was reviewed per nursing MAR. ALLERGIES: THE PATIENT HAS NO KNOWN DRUG ALLERGIES. SOCIAL HISTORY: Nondrinker. Smoking history. She also has a history of chronic prescription of opioid use. FAMILY HISTORY: No history of advanced coronary artery disease or peripheral vascular disease. REVIEW OF SYSTEMS: 13-point review was performed. At the current time, denies any headache, dizziness, nausea, vomiting, diarrhea, or shortness of breath. Denies any significant pain in the right lower extremity. Rest of 13-point review was essentially negative. PHYSICAL EXAMINATION: GENERAL: Afebrile. VITAL SIGNS: Stable. HEAD AND NECK: Demonstrates no bruits. CHEST: Moving air bilaterally. CARDIAC: Positive S1 and S2. ABDOMEN: Soft. EXTREMITIES: Upper extremities have good radial and ulnar pulses. Lower extremities warm with good capillary refill. Motor and sensation are intact. SKIN: Right lower extremity plantar surface approximately 5 cm diameter ulceration with some drainage. NEUROLOGIC: II through XII grossly intact. PSYCH: Mood and affect appear within normal limits. IMPRESSION: Nonhealing right lower extremity ulceration, being seen by General Surgery in regard to the wound by Dr. Bennett. I have taken the liberty of ordering noninvasive arterial testing and I will follow up after testing. We will follow with you. Thank you for allowing us to assist in this patient's care. If there are any questions or concerns, please do not hesitate to contact us. MD PRINCESS Peralta/BETHANY / [phone]
[2020-05-29 16:21] LABS: Glucose, Whole Blood 241 mg/dL (60-115)
[2020-05-29] MEDS: Atorvastatin Calcium 40 MG TABLET PO (20:38)
[2020-05-29] MEDS: Enoxaparin Sodium 40 MG/0.4 ML SYRINGE SUBCUT (20:39)
[2020-05-29 20:43] LABS: Glucose, Whole Blood 277 mg/dL (60-115)
[2020-05-30] MEDS: Piperacillin Sodium/Tazobactam 3.375 GM in 0.9 % Sodium Chloride 50 ML IV ×4 (01:41→20:10)
[2020-05-30] MEDS: vancomycin HCL 1,000 MG in 0.9 % Sodium Chloride 250 ML 250 MG IV ×2 (05:43→18:16)
[2020-05-30 06:48] LABS: Hematocrit 31.3 % (37-47); Hemoglobin 9.9 g/dl (12.0-16.0); Mean Corpuscular HGB Conc 31.6 g/dl (31.0-35.0); Mean Corpuscular Hemoglobin 28.6 pg (27.0-33.0); Mean Corpuscular Volume 90.5 fL (80-98); Mean Platelet Volume 11.2 fL (9.4-12.3); Platelet Count 250 X10*3/uL (160-400); Red Blood Count 3.46 X10*6/uL (4.20-5.50); Red Cell Distribution Width 13.5 % (11.0-16.0); White Blood Count 9.2 X10*3/uL (4.8-10.8)
[2020-05-30 07:18] VITALS: BP 156/65; PULSE 59; RESP 20; TEMP 36.9; O2SAT 97
[2020-05-30 07:22] LABS: Anion Gap 12 (12-20); Blood Urea Nitrogen 13 mg/dL (9-16); Calcium 8.4 mg/dL (8.4-10.2); Carbon Dioxide 30 mmol/L (22-29); Chloride 101 mmol/L (96-108); Creatinine Clr Calc Pharmacy 72.3; Estimated Glomerular Filt Rate > 60; Glucose Random 166 mg/dL (60-115); Potassium 3.8 mmol/l (3.3-5.1); Sodium 139 mmol/L (135-145)
[2020-05-30 08:02] LABS: Glucose, Whole Blood 179 mg/dL (60-115)
[2020-05-30 08:05] VITALS: PULSE 67; O2SAT 95
[2020-05-30] MEDS: Insulin Lispro 100 UNIT/ML 3 ML VIAL SUBCUT ×4 (08:59→21:04)
[2020-05-30] MEDS: Cholecalciferol (Vitamin D3) 25 MCG TABLET 50 MCG PO (09:03)
[2020-05-30] MEDS: Aspirin Enteric Coated 81 MG TABLET.DR PO (09:05)
[2020-05-30] MEDS: lisinopriL 10 MG TABLET PO (09:06)
[2020-05-30] MEDS: buPROPion HCl XL 300 MG TAB.ER.24H PO (09:06)
[2020-05-30] MEDS: Gabapentin 600 MG TABLET PO ×3 (09:06→21:04)
[2020-05-30] MEDS: Furosemide 20 MG TABLET PO (09:06)
[2020-05-30] MEDS: 0.9 % Sodium Chloride Flush 3 ML SYRINGE IVFLUSH ×2 (09:09→17:08)
--- NOTE | 2020-05-30 10:27 | P.PNVS_ITS ---
Subjective Subjective Date of Service: 05/30/20 Patient reports: no new complaints and feels better Interval history: Patient seen and examined for nonhealing right lower extremity ulcer. Has been maintained antibiotics. Appears to be doing relatively well. She continues to note some right lower extremity hip and leg pain. Unclear what the etiology of that is. In terms of her foot she feels fairly well. Of note she has had noninvasive arterial testing performed yesterday. Now for vascular follow-up. Physical Exam Vital Signs: Vital Signs: Last Vital Signs Temp 98.5 F 05/30/20 07:18 Pulse 67 05/30/20 08:05 Resp 20 05/30/20 07:18 BP 156/65 H 05/30/20 07:18 Pulse Ox 97 05/30/20 07:18 Body Mass Index 33.3 Const: General: cooperative, healthy appearing and no acute distress Orientation/consciousness: oriented to person, oriented to place and oriented to time HENMT: Head: Yes normal to inspection Neck: Carotids: no bruits Chest: Chest palpation & inspection: normal inspection of the chest Resp: Effort & Inspection: normal respiratory effort and able to speak in comp lete sentences Auscultation: clear to auscultation bilaterally Cardio: Rate: regular rate Heart sounds: S1 normal heart sound present and S2 normal heart sound present GI: Inspection: Yes normal to inspection Skin: General skin exam: no rashes or lesions noted Wounds: wounds noted (Right plantar surface nonhealing ulcer) Neuro: General: oriented to person, oriented to place, oriented to time and CN's II-XI intact bilaterally Extrem: General: Yes normal to inspection, Yes full ROM and Yes no clubbing, cyanosis or edema Psych: Appearance: grossly normal and well kempt Speech and movement: Normal speech and movement present Affect: normal affect Progress Note: A&P Assessment and plan (1) Osteomyelitis: Problem details: This is acute exacerbation of osteomyelitis right foot She has poorly fitting footwear as source for discomfort She has chronic osteomyelitis and organisms have included MRSA,proteus,Group A strep and Klebsiella. I had seen her last in office in April and her foot although not healing over did not have purulence but open area and foot today actually looks similar She has received IV antibiotics earlier in year She sees Wound Clinic and is seeing Vascular as well Status: Acute Assessment and Plan: Chronic nonhealing right foot ulceration. She has undergone extensive treatment in terms of antibiotics and long-term wound care. From a vascular standpoint it appears to be stable. She has an AURELIANO on the right of 0.94 with no evidence of flow-limiting stenosis. This should be enough to heal the wound. I do agree that she is at a very high risk for amputation. Continue with local wound care per General surgery. We will follow up with her as an outpatient. Thank you for allowing us to assist in her care. If there are any questions or concerns please do not hesitate to contact us. Fall Risk Details Current Medications: Current Medications Generic Name Dose Route Start Last Admin Trade Name Freq PRN Reason Stop Dose Admin Acetaminophen 650 mg 05/28/20 20:10 05/29/20 09:34 Acetaminophen 325 Mg Tablet PO 650 mg Q6H PRN Administration Pain and Fever Aspirin 81 mg 05/29/20 09:00 05/30/20 09:05 Aspirin Enteric Coated 81 Mg Tablet.Dr PO 81 mg DAILY PRECIOUS Administration Atorvastatin Calcium 40 mg 05/28/20 21:00 05/29/20 20:38 Atorvastatin Calcium 40 Mg Tablet PO 40 mg BEDTIME PRECIOUS Administration Bupropion HCl 300 mg 05/29/20 09:00 05/30/20 09:06 Bupropion Hcl Xl 300 Mg Tab.Er.24h PO 300 mg DAILY PRECIOUS Administration Docusate Sodium 100 mg 05/28/20 20:10 Docusate Sodium 100 Mg Capsule PO DAILY PRN Constipation Enoxaparin Sodium 40 mg 05/28/20 21:00 05/29/20 20:39 Enoxaparin Sodium 40 Mg/0.4 Ml Syringe SUBCUT 40 mg Q24H PRECIOUS Administration Fluticasone Propionate 2 puff 05/29/20 08:00 05/29/20 20:28 Fluticasone Propionate 100 Mcg Blst.W.Dev INHALE 2 puff RBID PRECIOUS Administration Furosemide 20 mg 05/29/20 09:00 05/30/20 09:06 Furosemide 20 Mg Tablet PO 20 mg DAILY PRECIOUS Administration Protocol Gabapentin 600 mg 05/28/20 21:00 05/30/20 09:06 Gabapentin 600 Mg Tablet PO 600 mg TID PRECIOUS Administration Vancomycin HCl 1,000 mg/ 270 mls @ 270 mls/hr 05/29/20 06:00 05/30/20 08:01 Sodium Chloride IV Infused Q12H PRECIOUS Infusion Piperacillin Sod/Tazobactam 50 mls @ 100 mls/hr 05/28/20 20:00 05/30/20 09:48 Sod 3.375 gm/ Sodium Chloride IV Infused Q6H PRECIOUS Infusion Insulin Human Lispro 0 unit 05/28/20 20:10 05/30/20 08:59 Insulin Lispro 100 Unit/Ml 3 Ml Vial SUBCUT 2 unit QIDACHS PRECIOUS Administration Protocol Lisinopril 10 mg 05/29/20 09:00 05/30/20 09:06 Lisinopril 10 Mg Tablet PO 10 mg DAILY PRECIOUS Administration Protocol Methadone HCl 90 mg 05/29/20 09:00 05/30/20 09:03 Methadone Hcl 1 Mg/0.1 Ml Oral.Conc PO 90 mg DAILY PRECIOUS Administration Nicotine 14 mg 05/29/20 09:00 05/29/20 08:19 Nicotine 14 Mg Patch.Td24 TRANSDERMA 14 mg DAILY PRECIOUS Administration Nicotine Polacrilex 2 mg 05/28/20 20:10 Nicotine Polacrilex 2 Mg Gum BUCCAL Q2H PRN CRAVINGS Omeprazole 20 mg 05/29/20 09:00 05/29/20 08:20 Omeprazole 20 Mg Capsule.Dr PO 20 mg DAILY PRECIOUS Administration Ondansetron HCl 4 mg 05/28/20 20:10 Ondansetron Hcl 4 Mg/2 Ml Vial IVPUSH Q8H PRN Nausea and Vomiting Pharmacy Consult 1 each 05/28/20 14:05 Consult Rx Perform Med Rec MISCELLANE ONCE PRN Consult order Pharmacy Consult 1 each 05/28/20 20:10 Consult Rx Vancomycin Dosing MISCELLANE DAILY PRN Consult order Sodium Chloride 3 ml 05/28/20 20:10 05/30/20 09:09 0.9 % Sodium Chloride Flush 3 Ml Syringe IVFLUSH 3 ml QSHIFT PRECIOUS Administration Vitamin D 50 mcg 05/29/20 09:00 05/30/20 09:03 Cholecalciferol (Vitamin D3) 25 Mcg Tablet PO 50 mcg DAILY PRECIOUS Administration Time Spent With Patient Time: Total time spent is greater than 50% in coordination of care (as documented) at patient's floor/unit and/or counseling patient: Time with patient: 15 - 24 minutes
--- NOTE | 2020-05-30 10:55 | HO.PM.IMPN ---
Subjective Subjective Date of Service: 05/30/20 Interval History: feels well Cardiovascular Cardiovascular: Reports no additional cardiovascular complaints Respiratory Respiratory: Reports no additional respiratory complaints Physical Exam Vital Signs: Vital Signs: Last Vital Signs Temp 98.5 F 05/30/20 07:18 Pulse 67 05/30/20 08:05 Resp 20 05/30/20 07:18 BP 156/65 H 05/30/20 07:18 Pulse Ox 97 05/30/20 07:18 Body Mass Index 33.3 General: AO X 3, no acute distress Resp: CTA bilateral CVS: S1,S2,RRR GI: soft, non tender, non distended Neuro: motor grossly intact Psych: appropriate affect RLE: right plantar nonhealing ulcer Objective Data Current Medications Generic Name Dose Route Start Last Admin Trade Name Freq PRN Reason Stop Dose Admin Acetaminophen 650 mg 05/28/20 20:10 05/29/20 09:34 Acetaminophen 325 Mg Tablet PO 650 mg Q6H PRN Administration Pain and Fever Aspirin 81 mg 05/29/20 09:00 05/30/20 09:05 Aspirin Enteric Coated 81 Mg Tablet.Dr PO 81 mg DAILY PRECIOUS Administration Atorvastatin Calcium 40 mg 05/28/20 21:00 05/29/20 20:38 Atorvastatin Calcium 40 Mg Tablet PO 40 mg BEDTIME PRECIOUS Administration Bupropion HCl 300 mg 05/29/20 09:00 05/30/20 09:06 Bupropion Hcl Xl 300 Mg Tab.Er.24h PO 300 mg DAILY PRECIOUS Administration Docusate Sodium 100 mg 05/28/20 20:10 Docusate Sodium 100 Mg Capsule PO DAILY PRN Constipation Enoxaparin Sodium 40 mg 05/28/20 21:00 05/29/20 20:39 Enoxaparin Sodium 40 Mg/0.4 Ml Syringe SUBCUT 40 mg Q24H PRECIOUS Administration Fluticasone Propionate 2 puff 05/29/20 08:00 05/29/20 20:28 Fluticasone Propionate 100 Mcg Blst.W.Dev INHALE 2 puff RBID PRECIOUS Administration Furosemide 20 mg 05/29/20 09:00 05/30/20 09:06 Furosemide 20 Mg Tablet PO 20 mg DAILY PRECIOUS Administration Protocol Gabapentin 600 mg 05/28/20 21:00 05/30/20 09:06 Gabapentin 600 Mg Tablet PO 600 mg TID PRECIOUS Administration Vancomycin HCl 1,000 mg/ 270 mls @ 270 mls/hr 05/29/20 06:00 05/30/20 08:01 Sodium Chloride IV Infused Q12H PRECIOUS Infusion Piperacillin Sod/Tazobactam 50 mls @ 100 mls/hr 05/28/20 20:00 05/30/20 09:48 Sod 3.375 gm/ Sodium Chloride IV Infused Q6H PRECIOUS Infusion Insulin Human Lispro 0 unit 05/28/20 20:10 05/30/20 08:59 Insulin Lispro 100 Unit/Ml 3 Ml Vial SUBCUT 2 unit QIDACHS PRECIOUS Administration Protocol Lisinopril 10 mg 05/29/20 09:00 05/30/20 09:06 Lisinopril 10 Mg Tablet PO 10 mg DAILY [facility] Administration Protocol Methadone HCl 90 mg 05/29/20 09:00 05/30/20 09:03 Methadone Hcl 1 Mg/0.1 Ml Oral.Conc PO 90 mg DAILY PRECIOUS Administration Nicotine 14 mg 05/29/20 09:00 05/29/20 08:19 Nicotine 14 Mg Patch.Td24 TRANSDERMA 14 mg DAILY PRECIOUS Administration Nicotine Polacrilex 2 mg 05/28/20 20:10 Nicotine Polacrilex 2 Mg Gum BUCCAL Q2H PRN CRAVINGS Omeprazole 20 mg 05/29/20 09:00 05/29/20 08:20 Omeprazole 20 Mg Capsule.Dr PO 20 mg DAILY PRECIOUS Administration Ondansetron HCl 4 mg 05/28/20 20:10 Ondansetron Hcl 4 Mg/2 Ml Vial IVPUSH Q8H PRN Nausea and Vomiting Pharmacy Consult 1 each 05/28/20 14:05 Consult Rx Perform Med Rec MISCELLANE ONCE PRN Consult order Pharmacy Consult 1 each 05/28/20 20:10 Consult Rx Vancomycin Dosing MISCELLANE DAILY PRN Consult order Sodium Chloride 3 ml 05/28/20 20:10 05/30/20 09:09 0.9 % Sodium Chloride Flush 3 Ml Syringe IVFLUSH 3 ml QSHIFT [facility] Administration Vitamin D 50 mcg 05/29/20 09:00 05/30/20 09:03 Cholecalciferol (Vitamin D3) 25 Mcg Tablet PO 50 mcg DAILY PRECIOUS Administration Labs CBC & Chem 7: 05/30/20 06:05 05/30/20 06:05 Microbiology Microbiology Results: Microbiology 05/28/20 13:38 Blood - Venous Blood Culture - Preliminary Strep agalactiae (Grp B) 05/28/20 13:38 Blood - Venous Blood Culture - Preliminary Strep agalactiae (Grp B) Assessment and Plan (1) Diabetes mellitus: Status: Acute (2) Osteomyelitis: Problem details: This is acute exacerbation of osteomyelitis right foot She has poorly fitting footwear as source for discomfort She has chronic osteomyelitis and organisms have included MRSA,proteus,Group A strep and Klebsiella. I had seen her last in office in April and her foot although not healing over did not have purulence but open area and foot today actually looks similar She has received IV antibiotics earlier in year She sees Wound Clinic and is seeing Vascular as well Status: Acute (3) Diabetic foot infection: Status: Acute Assessment and Plan: 60 yo F with a PMH of DM who presented to the hospital with complaints of R foot pain, swelling and drainage with associated chills. She has has previous OM of the RLE which was treated with IV antibiotics x 6 weeks. She reports that her foot did get better but has become worse over the last several days. She endorses continual smoking. Diabetic Foot infection vancomcyin/zosyn for now ID appreciated, likely doxy 2 weeks on dc vascular appreciated, good AURELIANO, follow up gen surg for local care Diabetes lantus + sliding scale POC QIDAC Diabetic Diet HTN lisinopril Chronic opiate dependence continue her methadone Nicotine use patch/gum have advised her cessation PAD statin, aspirin, tobacco cessation Mood continue her home meds Full Code DVT pptx, lovenox
[2020-05-30 11:20] VITALS: BP 140/58; PULSE 58; RESP 20; TEMP 36.3; O2SAT 94
[2020-05-30] MEDS: Nicotine 14 MG PATCH.TD24 TRANSDERMA (11:39)
[2020-05-30] MEDS: Omeprazole 20 MG CAPSULE.DR PO (11:39)
[2020-05-30 12:24] LABS: Glucose, Whole Blood 275 mg/dL (60-115)
--- NOTE | 2020-05-30 12:47 | PM.PNGS ---
Subjective Subjective Date of Service: 05/30/20 Interval history: Denies right foot pain, some bloody discharge noted on dressings. Physical Exam Vital Signs: Vital Signs: Last Vital Signs Temp 97.3 F 05/30/20 11:20 Pulse 58 05/30/20 11:20 Resp 20 05/30/20 11:20 BP 140/58 H 05/30/20 11:20 Pulse Ox 94 05/30/20 11:20 Body Mass Index 33.3 Const: Other: Awake and alert, in no acute distress, sitting up in chair Neck: Neck: Yes normal visual inspection Resp: Other: breathing comfortably on room air, no respiratory distress, no coughing Skin: Other: warm and dry, no rashes Extrem: Other: right foot with a plantar ulcer measuring 4 x 2.5 x 1 cm deep located on the lateral surface. Granulation tissue noted throughout the wound which bleeds easily. No purulence drainage or underlying abscess is appreciated at this time. Ankle/foot/toe images: 1. 4 x 2.5 x 1 cm ulcer right foot plantar surface Progress Note: A&P Assessment and plan (1) Diabetic foot infection: Status: Acute Assessment and Plan: patient presents with a nonhealing wound involving the plantar surface of the right foot. Excellent granulation tissue is noted at the base. I discussed the wound VAC placement with patient and she agrees with the plan. I will place the wound VAC at the bedside today. Will plan on changing in approximately 2-3 days. Fall Risk Details Current Medications: Current Medications Generic Name Dose Route Start Last Admin Trade Name Freq PRN Reason Stop Dose Admin Acetaminophen 650 mg 05/28/20 20:10 05/29/20 09:34 Acetaminophen 325 Mg Tablet PO 650 mg Q6H PRN Administration Pain and Fever Aspirin 81 mg 05/29/20 09:00 05/30/20 09:05 Aspirin Enteric Coated 81 Mg Tablet. PO 81 mg DAILY PRECIOUS Administration Atorvastatin Calcium 40 mg 05/28/20 21:00 05/29/20 20:38 Atorvastatin Calcium 40 Mg Tablet PO 40 mg BEDTIME PRECIOUS Administration Bupropion HCl 300 mg 05/29/20 09:00 05/30/20 09:06 Bupropion Hcl Xl 300 Mg Tab.Er.24h PO 300 mg DAILY PRECIOUS Administration Docusate Sodium 100 mg 05/28/20 20:10 Docusate Sodium 100 Mg Capsule PO DAILY PRN Constipation Enoxaparin Sodium 40 mg 05/28/20 21:00 05/29/20 20:39 Enoxaparin Sodium 40 Mg/0.4 Ml Syringe SUBCUT 40 mg Q24H PRECIOUS Administration Fluticasone Propionate 2 puff 05/29/20 08:00 05/29/20 20:28 Fluticasone Propionate 100 Mcg Blst.W.Dev INHALE 2 puff RBID PRECIOUS Administration Furosemide 20 mg 05/29/20 09:00 05/30/20 09:06 Furosemide 20 Mg Tablet PO 20 mg DAILY [facility] Administration Protocol Gabapentin 600 mg 05/28/20 21:00 05/30/20 09:06 Gabapentin 600 Mg Tablet PO 600 mg TID PRECIOUS Administration Vancomycin HCl 1,000 mg/ 270 mls @ 270 mls/hr 05/29/20 06:00 05/30/20 08:01 Sodium Chloride IV Infused Q12H PRECIOUS Infusion Piperacillin Sod/Tazobactam 50 mls @ 100 mls/hr 05/28/20 20:00 05/30/20 09:48 Sod 3.375 gm/ Sodium Chloride IV Infused Q6H PRECIOUS Infusion Insulin Human Lispro 0 unit 05/28/20 20:10 05/30/20 11:41 Insulin Lispro 100 Unit/Ml 3 Ml Vial SUBCUT 6 unit QIDACHS [facility] Administration Protocol Lisinopril 10 mg 05/29/20 09:00 05/30/20 09:06 Lisinopril 10 Mg Tablet PO 10 mg DAILY [facility] Administration Protocol Methadone HCl 90 mg 05/29/20 09:00 05/30/20 09:03 Methadone Hcl 1 Mg/0.1 Ml Oral.Conc PO 90 mg DAILY PRECIOUS Administration Nicotine 14 mg 05/29/20 09:00 05/30/20 11:39 Nicotine 14 Mg Patch.Td24 TRANSDERMA 14 mg DAILY PRECIOUS Administration Nicotine Polacrilex 2 mg 05/28/20 20:10 Nicotine Polacrilex 2 Mg Gum BUCCAL Q2H PRN CRAVINGS Omeprazole 20 mg 05/29/20 09:00 05/30/20 11:39 Omeprazole 20 Mg Capsule.Dr PO 20 mg DAILY PRECIOUS Administration Ondansetron HCl 4 mg 05/28/20 20:10 Ondansetron Hcl 4 Mg/2 Ml Vial IVPUSH Q8H PRN Nausea and Vomiting Pharmacy Consult 1 each 05/28/20 14:05 Consult Rx Perform Med Rec MISCELLANE ONCE PRN Consult order Pharmacy Consult 1 each 05/28/20 20:10 Consult Rx Vancomycin Dosing MISCELLANE DAILY PRN Consult order Sodium Chloride 3 ml 05/28/20 20:10 05/30/20 09:09 0.9 % Sodium Chloride Flush 3 Ml Syringe IVFLUSH 3 ml QSHIFT PRECIOUS Administration Vitamin D 50 mcg 05/29/20 09:00 05/30/20 09:03 Cholecalciferol (Vitamin D3) 25 Mcg Tablet PO 50 mcg DAILY PRECIOUS Administration Time Spent With Patient Time: Total time spent is greater than 50% in coordination of care (as documented) at patient's floor/unit and/or counseling patient: Time with patient: 25 - 35 minutes Procedures Procedure Note Procedure Note: Procedure: Placement of wound VAC right foot Anesthesia: None Indications: Nonhealing ulcer of the right foot as noted above Operative findings: 4 x 2.5 x 1 cm ulcer on the plantar surface right foot Wound VAC applied using a 4 x 2.5 cm black sponge with a bridge up the lateral surface of the foot. Excellent seal noted when connected to devices. Patient tolerated wound VAC placement well without any significant pain. Plan: Dressing change in 2-3 days.
[2020-05-30 15:54] VITALS: BP 139/66; PULSE 66; RESP 17; TEMP 36.6; O2SAT 96
[2020-05-30 16:26] LABS: Glucose, Whole Blood 327 mg/dL (60-115)
[2020-05-30] MEDS: Atorvastatin Calcium 40 MG TABLET PO (21:04)
[2020-05-30] MEDS: Enoxaparin Sodium 40 MG/0.4 ML SYRINGE SUBCUT (21:04)
[2020-05-30] MEDS: Fluticasone Propionate 100 MCG BLST.W.DEV 2 PUFF INHALE (21:06)
[2020-05-30 21:20] LABS: Glucose, Whole Blood 251 mg/dL (60-115)
[2020-05-30 23:42] VITALS: BP 139/72; PULSE 72; RESP 19; TEMP 36.4; O2SAT 98
[2020-05-31] MEDS: 0.9 % Sodium Chloride Flush 3 ML SYRINGE IVFLUSH ×4 (00:16→20:58)
[2020-05-31] MEDS: Piperacillin Sodium/Tazobactam 3.375 GM in 0.9 % Sodium Chloride 50 ML IV ×4 (02:29→20:57)
[2020-05-31 03:14] VITALS: BP 145/66; PULSE 68; RESP 19; TEMP 36.3; O2SAT 97
[2020-05-31 05:14] LABS: Basophils Percent Auto 0.4 % (0-2); Eosinophils Absolute Auto 0.1 X10*3/uL (0.0-0.4); Hematocrit 29.9 % (37-47); Hemoglobin 9.5 g/dl (12.0-16.0); Imm Gran Abs Auto 0.03 X10*3/uL (0.00-0.03); Imm Gran Pct Auto 0.4 % (0.0-0.4); Lymphocytes Absolute Auto 1.7 X10*3/uL (1.2-4.9); Lymphocytes Percent Auto 20.1 % (20-40); MANUAL DIFF FLAG NO; Mean Corpuscular HGB Conc 31.8 g/dl (31.0-35.0); Mean Corpuscular Hemoglobin 28.4 pg (27.0-33.0); Mean Corpuscular Volume 89.3 fL (80-98); Mean Platelet Volume 11.1 fL (9.4-12.3); Monocytes Absolute Auto 0.8 X10*3/uL (0.1-1.2); Monocytes Percent Auto 9.2 % (2-11); Neutrophils Absolute Auto 5.8 X10*3/uL (2.0-8.3); Neutrophils Percent Auto 68.9 % (45-73); Platelet Count 243 X10*3/uL (160-400); Red Blood Count 3.35 X10*6/uL (4.20-5.50); Red Cell Distribution Width 13.2 % (11.0-16.0); White Blood Count 8.4 X10*3/uL (4.8-10.8)
[2020-05-31 05:39] LABS: Anion Gap 10 (12-20); Blood Urea Nitrogen 11 mg/dL (9-16); Calcium 8.5 mg/dL (8.4-10.2); Carbon Dioxide 32 mmol/L (22-29); Chloride 99 mmol/L (96-108); Creatinine Clr Calc Pharmacy 69.4; Estimated Glomerular Filt Rate > 60; Glucose Fasting 287 mg/dL (60-99); Potassium 4.4 mmol/l (3.3-5.1); Sodium 137 mmol/L (135-145)
[2020-05-31 06:08] LABS: Vancomycin Trough 12.9 mcg/mL (10.0-20.0)
[2020-05-31] MEDS: vancomycin HCL 1,000 MG in 0.9 % Sodium Chloride 250 ML 250 MG IV ×2 (06:28→17:54)
[2020-05-31 08:53] VITALS: BP 188/87; PULSE 64; RESP 18; TEMP 36.6; O2SAT 97
[2020-05-31 09:11] LABS: Glucose, Whole Blood 350 mg/dL (60-115)
[2020-05-31] MEDS: Fluticasone Propionate 100 MCG BLST.W.DEV 2 PUFF INHALE ×2 (09:14→21:28)
[2020-05-31 09:21] VITALS: PULSE 65; O2SAT 96
[2020-05-31] MEDS: Insulin Lispro 100 UNIT/ML 3 ML VIAL SUBCUT ×4 (09:22→20:57)
[2020-05-31] MEDS: Nicotine 14 MG PATCH.TD24 TRANSDERMA (09:23)
[2020-05-31] MEDS: Gabapentin 600 MG TABLET PO ×3 (09:24→20:57)
[2020-05-31] MEDS: Furosemide 20 MG TABLET PO (09:24)
[2020-05-31] MEDS: Aspirin Enteric Coated 81 MG TABLET.DR PO (09:24)
[2020-05-31] MEDS: Cholecalciferol (Vitamin D3) 25 MCG TABLET 50 MCG PO (09:24)
[2020-05-31] MEDS: lisinopriL 10 MG TABLET PO (09:24)
[2020-05-31] MEDS: buPROPion HCl XL 300 MG TAB.ER.24H PO (09:25)
[2020-05-31] MEDS: Omeprazole 20 MG CAPSULE.DR PO (09:27)
--- NOTE | 2020-05-31 10:18 | PM.PNGS ---
Subjective Subjective Date of Service: 05/31/20 Patient reports: no new complaints Interval history: seen to be ambulating, putting weight on right foot Physical Exam Vital Signs: Vital Signs: Last Vital Signs Temp 97.8 F 05/31/20 08:53 Pulse 65 05/31/20 09:21 Resp 18 05/31/20 08:53 BP 188/87 H 05/31/20 08:53 Pulse Ox 97 05/31/20 08:53 Body Mass Index 33.3 Chemistry 05/28/20 05/29/20 05/30/20 12:33 06:13 06:05 Sodium 137 139 139 Potassium 4.0 3.3 3.8 Carbon Dioxide 30 H 29 30 H BUN 10 14 13 Creatinine 0.76 0.79 0.73 Calcium 9.0 8.4 D 8.4 05/31/20 05:00 Sodium 137 Potassium 4.4 Carbon Dioxide 32 H BUN 11 Creatinine 0.76 Calcium 8.5 Hematology 05/28/20 05/29/20 05/30/20 12:33 06:13 06:05 WBC 17.3 H 14.7 H 9.2 Hgb 11.5 L 10.3 L 9.9 L Plt Count 275 266 250 05/31/20 04:55 WBC 8.4 Hgb 9.5 L Plt Count 243 Const: General: comfortable and alert Extrem: Other: woundvac in place on right foot, no leak Progress Note: A&P Assessment and plan (1) Diabetic foot infection: Status: Acute Assessment and Plan: woundvac placed yesterday ok dc home after first dressing change - tommy or Sat? will need VNA lissy Hospitalist Fall Risk Details Current Medications: Current Medications Generic Name Dose Route Start Last Admin Trade Name Freq PRN Reason Stop Dose Admin Acetaminophen 650 mg 05/28/20 20:10 05/29/20 09:34 Acetaminophen 325 Mg Tablet PO 650 mg Q6H PRN Administration Pain and Fever Aspirin 81 mg 05/29/20 09:00 05/31/20 09:24 Aspirin Enteric Coated 81 Mg Tablet. PO 81 mg DAILY PRECIOUS Administration Atorvastatin Calcium 40 mg 05/28/20 21:00 05/30/20 21:04 Atorvastatin Calcium 40 Mg Tablet PO 40 mg BEDTIME PRECIOUS Administration Bupropion HCl 300 mg 05/29/20 09:00 05/31/20 09:25 Bupropion Hcl Xl 300 Mg Tab.Er.24h PO 300 mg DAILY PRECIOUS Administration Docusate Sodium 100 mg 05/28/20 20:10 Docusate Sodium 100 Mg Capsule PO DAILY PRN Constipation Enoxaparin Sodium 40 mg 05/28/20 21:00 05/30/20 21:04 Enoxaparin Sodium 40 Mg/0.4 Ml Syringe SUBCUT 40 mg Q24H PRECIOUS Administration Fluticasone Propionate 2 puff 05/29/20 08:00 05/31/20 09:14 Fluticasone Propionate 100 Mcg Blst.W.Dev INHALE 2 puff RBID PRECIOUS Administration Furosemide 20 mg 05/29/20 09:00 05/31/20 09:24 Furosemide 20 Mg Tablet PO 20 mg DAILY PRECIOUS Administration Protocol Gabapentin 600 mg 05/28/20 21:00 05/31/20 09:24 Gabapentin 600 Mg Tablet PO 600 mg TID PRECIOUS Administration Vancomycin HCl 1,000 mg/ 270 mls @ 270 mls/hr 05/29/20 06:00 05/31/20 09:26 Sodium Chloride IV Infused Q12H PRECIOUS Infusion Piperacillin Sod/Tazobactam 50 mls @ 100 mls/hr 05/28/20 20:00 05/31/20 10:01 Sod 3.375 gm/ Sodium Chloride IV Infused Q6H PRECIOUS Infusion Insulin Human Lispro 0 unit 05/28/20 20:10 05/31/20 09:22 Insulin Lispro 100 Unit/Ml 3 Ml Vial SUBCUT 8 unit QIDACHS PRECIOUS Administration Protocol Lisinopril 10 mg 05/29/20 09:00 05/31/20 09:24 Lisinopril 10 Mg Tablet PO 10 mg DAILY PRECIOUS Administration Protocol Methadone HCl 90 mg 05/29/20 09:00 05/31/20 09:22 Methadone Hcl 1 Mg/0.1 Ml Oral.Conc PO 90 mg DAILY PRECIOUS Administration Nicotine 14 mg 05/29/20 09:00 05/31/20 09:23 Nicotine 14 Mg Patch.Td24 TRANSDERMA 14 mg DAILY PRECIOUS Administration Nicotine Polacrilex 2 mg 05/28/20 20:10 Nicotine Polacrilex 2 Mg Gum BUCCAL Q2H PRN CRAVINGS Omeprazole 20 mg 05/29/20 09:00 05/31/20 09:27 Omeprazole 20 Mg Capsule.Dr PO 20 mg DAILY PRECIOUS Administration Ondansetron HCl 4 mg 05/28/20 20:10 Ondansetron Hcl 4 Mg/2 Ml Vial IVPUSH Q8H PRN Nausea and Vomiting Pharmacy Consult 1 each 05/28/20 14:05 Consult Rx Perform Med Rec MISCELLANE ONCE PRN Consult order Pharmacy Consult 1 each 05/28/20 20:10 Consult Rx Vancomycin Dosing MISCELLANE DAILY PRN Consult order Sodium Chloride 3 ml 05/28/20 20:10 05/31/20 09:22 0.9 % Sodium Chloride Flush 3 Ml Syringe IVFLUSH 3 ml QSHIFT PRECIOUS Administration Vitamin D 50 mcg 05/29/20 09:00 05/31/20 09:24 Cholecalciferol (Vitamin D3) 25 Mcg Tablet PO 50 mcg DAILY PRECIOUS Administration Time Spent With Patient Time: Total time spent is greater than 50% in coordination of care (as documented) at patient's floor/unit and/or counseling patient: Time with patient: less than 15 minutes
--- NOTE | 2020-05-31 10:54 | HO.PM.IMPN ---
Subjective Subjective Date of Service: 05/31/20 Interval History: feels well Cardiovascular Cardiovascular: Reports no additional cardiovascular complaints Respiratory Respiratory: Reports no additional respiratory complaints Physical Exam Vital Signs: Vital Signs: Last Vital Signs Temp 97.8 F 05/31/20 08:53 Pulse 65 05/31/20 09:21 Resp 18 05/31/20 08:53 BP 188/87 H 05/31/20 08:53 Pulse Ox 97 05/31/20 08:53 Body Mass Index 33.3 General: AO X 3, no acute distress Resp: CTA bilateral CVS: S1,S2,RRR GI: soft, non tender, non distended Neuro: motor grossly intact Psych: appropriate affect Objective Data Current Medications Generic Name Dose Route Start Last Admin Trade Name Freq PRN Reason Stop Dose Admin Acetaminophen 650 mg 05/28/20 20:10 05/29/20 09:34 Acetaminophen 325 Mg Tablet PO 650 mg Q6H PRN Administration Pain and Fever Aspirin 81 mg 05/29/20 09:00 05/31/20 09:24 Aspirin Enteric Coated 81 Mg Tablet.Dr PO 81 mg DAILY PRECIOUS Administration Atorvastatin Calcium 40 mg 05/28/20 21:00 05/30/20 21:04 Atorvastatin Calcium 40 Mg Tablet PO 40 mg BEDTIME PRECIOUS Administration Bupropion HCl 300 mg 05/29/20 09:00 05/31/20 09:25 Bupropion Hcl Xl 300 Mg Tab.Er.24h PO 300 mg DAILY PRECIOUS Administration Docusate Sodium 100 mg 05/28/20 20:10 Docusate Sodium 100 Mg Capsule PO DAILY PRN Constipation Enoxaparin Sodium 40 mg 05/28/20 21:00 05/30/20 21:04 Enoxaparin Sodium 40 Mg/0.4 Ml Syringe SUBCUT 40 mg Q24H PRECIOUS Administration Fluticasone Propionate 2 puff 05/29/20 08:00 05/31/20 09:14 Fluticasone Propionate 100 Mcg Blst.W.Dev INHALE 2 puff RBID PRECIOUS Administration Furosemide 20 mg 05/29/20 09:00 05/31/20 09:24 Furosemide 20 Mg Tablet PO 20 mg DAILY PRECIOUS Administration Protocol Gabapentin 600 mg 05/28/20 21:00 05/31/20 09:24 Gabapentin 600 Mg Tablet PO 600 mg TID PRECIOUS Administration Vancomycin HCl 1,000 mg/ 270 mls @ 270 mls/hr 05/29/20 06:00 05/31/20 09:26 Sodium Chloride IV Infused Q12H PRECIOUS Infusion Piperacillin Sod/Tazobactam 50 mls @ 100 mls/hr 05/28/20 20:00 05/31/20 10:01 Sod 3.375 gm/ Sodium Chloride IV Infused Q6H PRECIOUS Infusion Insulin Human Lispro 0 unit 05/28/20 20:10 05/31/20 09:22 Insulin Lispro 100 Unit/Ml 3 Ml Vial SUBCUT 8 unit QIDACHS [facility] Administration Protocol Lisinopril 10 mg 05/29/20 09:00 05/31/20 09:24 Lisinopril 10 Mg Tablet PO 10 mg DAILY [facility] Administration Protocol Methadone HCl 90 mg 05/29/20 09:00 05/31/20 09:22 Methadone Hcl 1 Mg/0.1 Ml Oral.Conc PO 90 mg DAILY PRECIOUS Administration Nicotine 14 mg 05/29/20 09:00 05/31/20 09:23 Nicotine 14 Mg Patch.Td24 TRANSDERMA 14 mg DAILY [facility] Administration Nicotine Polacrilex 2 mg 05/28/20 20:10 Nicotine Polacrilex 2 Mg Gum BUCCAL Q2H PRN CRAVINGS Omeprazole 20 mg 05/29/20 09:00 05/31/20 09:27 Omeprazole 20 Mg Capsule.Dr PO 20 mg DAILY [facility] Administration Ondansetron HCl 4 mg 05/28/20 20:10 Ondansetron Hcl 4 Mg/2 Ml Vial IVPUSH Q8H PRN Nausea and Vomiting Pharmacy Consult 1 each 05/28/20 14:05 Consult Rx Perform Med Rec MISCELLANE ONCE PRN Consult order Pharmacy Consult 1 each 05/28/20 20:10 Consult Rx Vancomycin Dosing MISCELLANE DAILY PRN Consult order Sodium Chloride 3 ml 05/28/20 20:10 05/31/20 09:22 0.9 % Sodium Chloride Flush 3 Ml Syringe IVFLUSH 3 ml QSHIFT [facility] Administration Vitamin D 50 mcg 05/29/20 09:00 05/31/20 09:24 Cholecalciferol (Vitamin D3) 25 Mcg Tablet PO 50 mcg DAILY PRECIOUS Administration Labs CBC & Chem 7: 05/31/20 04:55 05/31/20 05:00 Microbiology Microbiology Results: Microbiology 05/28/20 13:38 Blood - Venous Blood Culture - Preliminary Strep agalactiae (Grp B) 05/28/20 13:38 Blood - Venous Blood Culture - Preliminary Strep agalactiae (Grp B) Assessment and Plan (1) Diabetes mellitus: Status: Acute (2) Osteomyelitis: Problem details: This is acute exacerbation of osteomyelitis right foot She has poorly fitting footwear as source for discomfort She has chronic osteomyelitis and organisms have included MRSA,proteus,Group A strep and Klebsiella. I had seen her last in office in April and her foot although not healing over did not have purulence but open area and foot today actually looks similar She has received IV antibiotics earlier in year She sees Wound Clinic and is seeing Vascular as well Status: Acute (3) Diabetic foot infection: Status: Acute Assessment and Plan: 60 yo F with a PMH of DM who presented to the hospital with complaints of R foot pain, swelling and drainage with associated chills. She has has previous OM of the RLE which was treated with IV antibiotics x 6 weeks. She reports that her foot did get better but has become worse over the last several days. She endorses continual smoking. Diabetic Foot infection vancomcyin/zosyn for now ID appreciated, likely doxy 2 weeks on dc vascular appreciated, good AURELIANO, follow up gen surg for local care s/p wound vac yesterday, plan for dressing change tomorrow Diabetes lantus + sliding scale POC QIDAC Diabetic Diet HTN lisinopril Chronic opiate dependence continue her methadone Nicotine use patch/gum have advised her cessation PAD statin, aspirin, tobacco cessation Mood continue her home meds Full Code DVT pptx, lovenox
[2020-05-31 11:20] LABS: Glucose, Whole Blood 329 mg/dL (60-115)
[2020-05-31 15:47] VITALS: BP 167/73; PULSE 59; RESP 18; TEMP 36.8; O2SAT 96
[2020-05-31] MEDS: Acetaminophen 325 MG TABLET 650 MG PO (15:58)
[2020-05-31 16:33] LABS: Glucose, Whole Blood 295 mg/dL (60-115)
[2020-05-31] MEDS: Enoxaparin Sodium 40 MG/0.4 ML SYRINGE SUBCUT (20:57)
[2020-05-31] MEDS: Atorvastatin Calcium 40 MG TABLET PO (20:57)
[2020-05-31 20:59] LABS: Glucose, Whole Blood 303 mg/dL (60-115)
[2020-05-31 21:29] VITALS: PULSE 70; O2SAT 96
[2020-05-31 23:28] VITALS: BP 158/62; PULSE 62; RESP 16; TEMP 36.8; O2SAT 96
[2020-06-01] MEDS: Piperacillin Sodium/Tazobactam 3.375 GM in 0.9 % Sodium Chloride 50 ML IV ×2 (02:04→08:51)
[2020-06-01] MEDS: vancomycin HCL 1,000 MG in 0.9 % Sodium Chloride 250 ML 250 MG IV (05:35)
[2020-06-01 08:00] VITALS: BP 164/69; PULSE 66; RESP 16; TEMP 36.9; O2SAT 100
[2020-06-01 08:37] LABS: Glucose, Whole Blood 328 mg/dL (60-115)
--- NOTE | 2020-06-01 08:38 | P.PNGS_ITS ---
Subjective Subjective Date of Service: 06/01/20 Patient reports: no new complaints and feels better Interval history: Denies any ongoing symptoms. Tolerated the wound VAC without any issues. Physical Exam Vital Signs: Vital Signs: Last Vital Signs Temp 98.5 F 06/01/20 08:00 Pulse 66 06/01/20 08:00 Resp 16 06/01/20 08:00 BP 164/69 H 06/01/20 08:00 Pulse Ox 100 06/01/20 08:00 Body Mass Index 33.3 Const: Other: Awake and alert no apparent distress Resp: Other: breathing comfortably on room air no respiratory distress Skin: Other: warm and dry, no rash Extrem: Other: wound VAC remains in place with no air leak in no drainage. Output within the wound VAC device is serosanguineous Ankle/foot/toe images: 1. right plantar ulcer: 3.5 by 2.5 by 1 cm; wound compl etely granulated; no necrotic tissue or purulent discharge. Progress Note: A&P Assessment and plan (1) Diabetic foot infection: Status: Acute Assessment and Plan: The wound vac was changed today and definite improvement noted in the wound with granulation tissue now covering the entire wound. Wound is reduced in length by 0.5 cm. New wound vac applied today. No debridement required today. Patient is ready for discharge from my standpoint and may be followed at the wound care center post discharge. She will need a post operative shoe for the right foot. Wound vac will need to be changed 3 times per week, next change anticipated for Thursday with VNA. A small sponge measuring 3.5 x 2.5 thinned to 1/2 the thickness was applied today. A small bridge was applied and the suction tubing applied to the ventral surface of the foot. Fall Risk Details Current Medications: Current Medications Generic Name Dose Route Start Last Admin Trade Name Freq PRN Reason Stop Dose Admin Acetaminophen 650 mg 05/28/20 20:10 05/31/20 15:58 Acetaminophen 325 Mg Tablet PO 650 mg Q6H PRN Administration Pain and Fever Aspirin 81 mg 05/29/20 09:00 05/31/20 09:24 Aspirin Enteric Coated 81 Mg Tablet.Dr PO 81 mg DAILY PRECIOUS Administration Atorvastatin Calcium 40 mg 05/28/20 21:00 05/31/20 20:57 Atorvastatin Calcium 40 Mg Tablet PO 40 mg BEDTIME PRECIOUS Administration Bupropion HCl 300 mg 05/29/20 09:00 05/31/20 09:25 Bupropion Hcl Xl 300 Mg Tab.Er.24h PO 300 mg DAILY PRECIOUS Administration Docusate Sodium 100 mg 05/28/20 20:10 Docusate Sodium 100 Mg Capsule PO DAILY PRN Constipation Enoxaparin Sodium 40 mg 05/28/20 21:00 05/31/20 20:57 Enoxaparin Sodium 40 Mg/0.4 Ml Syringe SUBCUT 40 mg Q24H PRECIOUS Administration Fluticasone Propionate 2 puff 05/29/20 08:00 06/01/20 07:50 Fluticasone Propionate 100 Mcg Blst.W.Dev INHALE Not Given RBID PRECIOUS Furosemide 20 mg 05/29/20 09:00 05/31/20 09:24 Furosemide 20 Mg Tablet PO 20 mg DAILY PRECIOUS Administration Protocol Gabapentin 600 mg 05/28/20 21:00 05/31/20 20:57 Gabapentin 600 Mg Tablet PO 600 mg TID PRECIOUS Administration Vancomycin HCl 1,000 mg/ 270 mls @ 270 mls/hr 05/29/20 06:00 06/01/20 06:42 Sodium Chloride IV Infused Q12H PRECIOUS Infusion Piperacillin Sod/Tazobactam 50 mls @ 100 mls/hr 05/28/20 20:00 06/01/20 03:23 Sod 3.375 gm/ Sodium Chloride IV Infused Q6H PRECIOUS Infusion Insulin Human Lispro 0 unit 05/28/20 20:10 05/31/20 20:57 Insulin Lispro 100 Unit/Ml 3 Ml Vial SUBCUT 8 unit QIDACHS [facility] Administration Protocol Lisinopril 10 mg 05/29/20 09:00 05/31/20 09:24 Lisinopril 10 Mg Tablet PO 10 mg DAILY PRECIOUS Administration Protocol Methadone HCl 90 mg 05/29/20 09:00 05/31/20 09:22 Methadone Hcl 1 Mg/0.1 Ml Oral.Conc PO 90 mg DAILY PRECIOUS Administration Nicotine 14 mg 05/29/20 09:00 05/31/20 09:23 Nicotine 14 Mg Patch.Td24 TRANSDERMA 14 mg DAILY PRECIUOS Administration Nicotine Polacrilex 2 mg 05/28/20 20:10 Nicotine Polacrilex 2 Mg Gum BUCCAL Q2H PRN CRAVINGS Omeprazole 20 mg 05/29/20 09:00 05/31/20 09:27 Omeprazole 20 Mg Capsule. PO 20 mg DAILY PRECIOUS Administration Ondansetron HCl 4 mg 05/28/20 20:10 Ondansetron Hcl 4 Mg/2 Ml Vial IVPUSH Q8H PRN Nausea and Vomiting Pharmacy Consult 1 each 05/28/20 14:05 Consult Rx Perform Med Rec MISCELLANE ONCE PRN Consult order Pharmacy Consult 1 each 05/28/20 20:10 Consult Rx Vancomycin Dosing MISCELLANE DAILY PRN Consult order Sodium Chloride 3 ml 05/28/20 20:10 05/31/20 20:58 0.9 % Sodium Chloride Flush 3 Ml Syringe IVFLUSH 3 ml QSHIFT PRECIOUS Administration Vitamin D 50 mcg 05/29/20 09:00 05/31/20 09:24 Cholecalciferol (Vitamin D3) 25 Mcg Tablet PO 50 mcg DAILY PRECIOUS Administration Time Spent With Patient Time: Total time spent is greater than 50% in coordination of care (as documented) at patient's floor/unit and/or counseling patient: Time with patient: 25 - 35 minutes
--- NOTE | 2020-06-01 08:42 | HO.VASCPN ---
Subjective Subjective Date of Service: 06/04/20 Patient reports: no new complaints and feels better Interval history: Pt. seen and examined. Events noted. Vac placed on wound. Physical Exam Vital Signs: Vital Signs: Last Vital Signs Temp 98.5 F 06/01/20 08:00 Pulse 66 06/01/20 08:00 Resp 16 06/01/20 08:00 BP 164/69 H 06/01/20 08:00 Pulse Ox 100 06/01/20 08:00 Body Mass Index 33.3 Const: General: cooperative, healthy appearing and no acute distress Orientation/consciousness: oriented to person, oriented to place and oriented to time HENMT: Head: Yes normal to inspection Neck: Carotids: no bruits Chest: Chest palpation & inspection: normal inspection of the chest Resp: Effort & Inspection: normal respiratory effort and able to speak in complete sentences Auscultation: clear to auscultation bilaterally Cardio: Rate: regular rate Heart sounds: S1 normal heart sound present and S2 normal heart sound present GI: Inspection: Yes normal to inspection Skin: General skin exam: no rashes or lesions noted Wounds: wounds noted (vac on foot wound) Neuro: General: oriented to person, oriented to place, oriented to time and CN's II-XI intact bilaterally Extrem: General: Yes normal to inspection, Yes full ROM and Yes no clubbing, cyanosis or edema Psych: Appearance: grossly normal and well kempt Speech and movement: Normal speech and movement present Affect: normal affect Progress Note: A&P Assessment and plan (1) PAD (peripheral artery disease): Status: Acute Assessment and Plan: art status stable. See me as outpt in 2 weeks. Fall Risk Details Current Medications: Current Medications Generic Name Dose Route Start Last Admin Trade Name Freq PRN Reason Stop Dose Admin Acetaminophen 650 mg 05/28/20 20:10 05/31/20 15:58 Acetaminophen 325 Mg Tablet PO 650 mg Q6H PRN Administration Pain and Fever Aspirin 81 mg 05/29/20 09:00 05/31/20 09:24 Aspirin Enteric Coated 81 Mg Tablet. PO 81 mg DAILY PRECIOUS Administration Atorvastatin Calcium 40 mg 05/28/20 21:00 05/31/20 20:57 Atorvastatin Calcium 40 Mg Tablet PO 40 mg BEDTIME PRECIOUS Administration Bupropion HCl 300 mg 05/29/20 09:00 05/31/20 09:25 Bupropion Hcl Xl 300 Mg Tab.Er.24h PO 300 mg DAILY PRECIOUS Administration Docusate Sodium 100 mg 05/28/20 20:10 Docusate Sodium 100 Mg Capsule PO DAILY PRN Constipation Enoxaparin Sodium 40 mg 05/28/20 21:00 05/31/20 20:57 Enoxaparin Sodium 40 Mg/0.4 Ml Syringe SUBCUT 40 mg Q24H PRECIOUS Administration Fluticasone Propionate 2 puff 05/29/20 08:00 06/01/20 07:50 Fluticasone Propionate 100 Mcg Blst.W.Dev INHALE Not Given RBID PRECIOUS Furosemide 20 mg 05/29/20 09:00 05/31/20 09:24 Furosemide 20 Mg Tablet PO 20 mg DAILY PRECIOUS Administration Protocol Gabapentin 600 mg 05/28/20 21:00 05/31/20 20:57 Gabapentin 600 Mg Tablet PO 600 mg TID PRECIOUS Administration Vancomycin HCl 1,000 mg/ 270 mls @ 270 mls/hr 05/29/20 06:00 06/01/20 06:42 Sodium Chloride IV Infused Q12H PRECIOUS Infusion Piperacillin Sod/Tazobactam 50 mls @ 100 mls/hr 05/28/20 20:00 06/01/20 03:23 Sod 3.375 gm/ Sodium Chloride IV Infused Q6H PRECIOUS Infusion Insulin Human Lispro 0 unit 05/28/20 20:10 05/31/20 20:57 Insulin Lispro 100 Unit/Ml 3 Ml Vial SUBCUT 8 unit QIDACHS PRECIOUS Administration Protocol Lisinopril 10 mg 05/29/20 09:00 05/31/20 09:24 Lisinopril 10 Mg Tablet PO 10 mg DAILY PRECIOUS Administration Protocol Methadone HCl 90 mg 05/29/20 09:00 05/31/20 09:22 Methadone Hcl 1 Mg/0.1 Ml Oral.Conc PO 90 mg DAILY PRECIOUS Administration Nicotine 14 mg 05/29/20 09:00 05/31/20 09:23 Nicotine 14 Mg Patch.Td24 TRANSDERMA 14 mg DAILY PRECIOUS Administration Nicotine Polacrilex 2 mg 05/28/20 20:10 Nicotine Polacrilex 2 Mg Gum BUCCAL Q2H PRN CRAVINGS Omeprazole 20 mg 05/29/20 09:00 05/31/20 09:27 Omeprazole 20 Mg Capsule.Dr PO 20 mg DAILY PRECIOUS Administration Ondansetron HCl 4 mg 05/28/20 20:10 Ondansetron Hcl 4 Mg/2 Ml Vial IVPUSH Q8H PRN Nausea and Vomiting Pharmacy Consult 1 each 05/28/20 14:05 Consult Rx Perform Med Rec MISCELLANE ONCE PRN Consult order Pharmacy Consult 1 each 05/28/20 20:10 Consult Rx Vancomycin Dosing MISCELLANE DAILY PRN Consult order Sodium Chloride 3 ml 05/28/20 20:10 05/31/20 20:58 0.9 % Sodium Chloride Flush 3 Ml Syringe IVFLUSH 3 ml QSHIFT PRECIOUS Administration Vitamin D 50 mcg 05/29/20 09:00 05/31/20 09:24 Cholecalciferol (Vitamin D3) 25 Mcg Tablet PO 50 mcg DAILY PRECIOUS Administration Time Spent With Patient Time: Total time spent is greater than 50% in coordination of care (as documented) at patient's floor/unit and/or counseling patient: Time with patient: 15 - 24 minutes
[2020-06-01] MEDS: Insulin Lispro 100 UNIT/ML 3 ML VIAL SUBCUT ×2 (08:50→11:45)
[2020-06-01] MEDS: 0.9 % Sodium Chloride Flush 3 ML SYRINGE IVFLUSH (08:54)
[2020-06-01 08:55] VITALS: BP 164/69; PULSE 66
[2020-06-01] MEDS: buPROPion HCl XL 300 MG TAB.ER.24H PO (08:55)
[2020-06-01] MEDS: Cholecalciferol (Vitamin D3) 25 MCG TABLET 50 MCG PO (08:55)
[2020-06-01] MEDS: Aspirin Enteric Coated 81 MG TABLET.DR PO (08:55)
[2020-06-01] MEDS: Omeprazole 20 MG CAPSULE.DR PO (08:55)
[2020-06-01] MEDS: Furosemide 20 MG TABLET PO (08:55)
[2020-06-01] MEDS: Gabapentin 600 MG TABLET PO (08:55)
[2020-06-01] MEDS: lisinopriL 10 MG TABLET PO (08:55)
[2020-06-01] MEDS: Nicotine 14 MG PATCH.TD24 TRANSDERMA (08:55)
--- NOTE | 2020-06-01 09:53 | MHC.CM.PN ---
NURSE ANIMAL PHYSIOLOGY TEACHER NOTE ELECTRONIC MEDICAL RECORD REVIEWED ALONG WITH CASE DISCUSSED WITH STAFF NURSE , HOSPITLIST AND GENERAL SURGEON. MET WITH PATIENT SHE IS AWARE THAT IF ARRANGEMENTS CANE BE FINALIZED TODAY THAT SHE WILL BE DISCHARGED TODAY HOME WITH NEW WOUND VAC AND ORAL ANTIBIOTICS DISCHARGE [place]HOME WITH 1/ I WOUND VAC SUPPIER THEY WILL DELIVER TODAY TO THE HOS;IGOR ( PATIENT WILL THEN BE DISCHARGED ONCE [facility]OSPIT[facility] WOUND VAC CHNAGED TO [facility] WOUND [facility] . PER SURGEON DR [facility] AND WILL NOT NEED TO BE CHANGED UNTIL THURSDAY. I SPOKE WITH [facility] [phone] AND ALSO [facility] ALL PAPERWORK SENT VIA HAND FAX TO [facility] FAX# [phone] PER [facility] ONCE INSURANCE COVERAGE VERIFIED AND TIME OF DELIVERY I WILL INFRM PATIENT AND HOSPITLAIST 2 SEF RESUMPTION OF HER [facility] AND COUNSELING 3 PCP CASE MANAGEMENT OFFICE TO [facility] FOR APPOINTMENT [facility] FOR FOLLOW UP 4 TRANSPORTATION FAMILY TO TRANSPORT 5.[facility] NURSING FOR DIAGNOSISI SIGHN SYMPTOM MANAGEMENT AND MEDICATION RECONCILATION CARE OF WOUND VAC AND DRESISNG CHANGES MEDICARE IMM UPDATED
--- NOTE | 2020-06-01 10:04 | W.MHC.F2F ---
Service Date Service Date: 06/01/20 Reasons for Services Homebound: Leaving the home is medically contraindicated at this time without the asist of a device and/or another person due th the listed conditions above and below. Certification: Based on the above findings, I certify that this patient is confined to the home and needs intermittent assisted care, physical therapy and/or speech therapy, or continues to need occupational therapy. The patient is under my care, and I have initiated the establishment of the plan of care. The patient will be followed by a physician who will periodically review the plan of care.
--- NOTE | 2020-06-01 10:05 | PM.DS ---
DS: Providers Provider Date of admission: 05/28/20 15:25 Primary care physician: Ellen Cehema MD Consults: 05/28/20 20:10 Consult to Infectious Diseases Routine Consulting Provider: Josefina Caro Reason for consultation: diabetic foot infection Consult to Vascular Surgery Routine Consulting Provider: Hunter Lemus Reason for consultation: diabetic foot infection DS: Diagnosis Discharge Diagnosis (1) Diabetic foot infection: Status: Acute (2) COPD (chronic obstructive pulmonary disease): Status: Acute (3) Tobacco dependence: Status: Acute (4) Diabetes mellitus: Status: Acute DS: Medications Discharge Medications Home Medications: Home Medications Medication Instructions Recorded Confirmed albuterol sulfate 90 mcg/actuation 2 puff PO Q4H PRN 04/24/20 05/28/20 aerosol inhaler aspirin 81 mg tablet,delayed 81 mg PO DAILY 04/24/20 05/28/20 release atorvastatin 40 mg tablet 40 mg PO BEDTIME 04/24/20 05/28/20 bupropion HCl 150 mg tablet,12 hr 150 mg PO BID 04/24/20 05/28/20 sustained-release cholecalciferol (vitamin D3) 50 50 mcg PO DAILY 04/24/20 05/28/20 mcg (2,000 unit) tablet furosemide 20 mg tablet 20 mg PO QAM 04/24/20 05/28/20 insulin degludec 100 unit/mL (3 12 unit SUBCUT QAM 04/24/20 05/28/20 mL) subcutaneous pen lancets 33 gauge #100 ea 04/24/20 05/29/20 lisinopril 10 mg tablet 10 mg PO DAILY 04/24/20 05/28/20 metformin 1,000 mg tablet 1,000 mg PO BIDWMEAL 04/24/20 05/28/20 omeprazole 20 mg capsule,delayed 20 mg PO DAILY 04/24/20 05/28/20 release gabapentin 600 mg tablet 600 mg PO TID 05/03/20 05/28/20 Flovent HFA 2 puff INHALATION BID 05/28/20 05/28/20 insulin aspart U-100 [Novolog 0 unit SUBCUT QIDACHS 05/28/20 05/28/20 Flexpen U-100 Insulin] methadone [Methadone Intensol] 95 mg DAILY 05/28/20 05/28/20 nicotine 1 patch TRANSDERMAL DAILY 05/28/20 05/28/20 nicotine (polacrilex) 2 mg BUCCAL Q2H PRN 05/28/20 05/28/20 Previous Rx's Medication Instructions Recorded doxycycline hyclate 100 mg PO BID #28 tab 06/01/20 DS: Summary Hospital Course Hospital Course: Patient was admitted for acute exacerbation of her diabetic foot ulcer with underlying osteomyelitis. She was seen by infectious disease who recommended avoiding another course of long-term IV antibiotics. And states she will do 2 weeks of p.o. doxy at discharge. She was seen by vascular surgery, AURELIANO was performed which showed good flow. She was seen by General surgery who placed wound VAC. Patient is now medically stable will be discharged home with wound VAC and follow up with wound care. Time Spent with Patient Time attestation: Total time spent providing and/or coordinating discharge services: Physical Exam Vital Signs: Vital Signs: Last Vital Signs Temp 98.5 F 06/01/20 08:00 Pulse 66 06/01/20 08:55 Resp 16 06/01/20 08:00 BP 164/69 H 06/01/20 08:55 Pulse Ox 100 06/01/20 08:00 Body Mass Index 33.3 General: AO X 3, no acute distress Resp: CTA bilateral CVS: S1,S2,RRR GI: soft, non tender, non distended Neuro: motor grossly intact Psych: appropriate affect DS: Data Data Completed and Pending Labs on day of discharge: 05/28/20 Breakfast Diabetic Diet 05/28/20 12:08 XR foot RT min 3V Stat 05/28/20 12:33 Basic Metabolic Panel Stat Complete Blood Count Auto Diff Stat Erythrocyte Sedimentation Rate Stat 05/28/20 13:06 methADONE HCl [Methadose] 95 mg PO ONCE ONE 05/28/20 13:16 Piperacillin Sodium/Tazobactam [Zosyn] 3.375 gm 0.9 % Sodium Chloride [Ns] 50 ml IV ONCE vancomycin HCL 1,500 mg 0.9 % Sodium Chloride [Ns] 250 ml IV ONCE 05/28/20 13:41 Piperacillin Sodium/Tazobactam [Zosyn] 3.375 gm IV .STK-MED ONE 05/28/20 14:35 vancomycin HCL 750 mg IV .STK-MED ONE 05/28/20 14:47 COVID-19 ID NOW ([place]) Stat 05/28/20 15:14 Transfer Order Routine 05/28/20 20:10 Insulin Glargine,Hum.rec.anlog [Lantus] 10 unit SUBCUT BEDTIME ONE 05/28/20 21:01 Piperacillin Sodium/Tazobactam [Zosyn] 3.375 gm IV .STK-MED ONE 05/28/20 21:07 Glucose, Whole Blood Routine 05/29/20 US AURELIANO complete Routine US arterial duplex LE BI Routine 05/29/20 01:49 Piperacillin Sodium/Tazobactam [Zosyn] 3.375 gm IV .STK-MED ONE 05/29/20 05:42 vancomycin HCL 1,000 mg .ROUTE .STK-MED ONE 05/29/20 06:13 Basic Metabolic Panel DAILY@0600 Complete Blood Count Auto Diff DAILY@0600 05/29/20 08:00 Glucose, Whole Blood Routine 05/29/20 08:07 Piperacillin Sodium/Tazobactam [Zosyn] 3.375 gm IV .STK-MED ONE 05/29/20 09:00 methADONE HCl [Methadose] 90 mg PO DAILY 05/29/20 11:33 Glucose, Whole Blood Routine 05/29/20 14:23 Piperacillin Sodium/Tazobactam [Zosyn] 3.375 gm IV .STK-MED ONE 05/29/20 16:15 Glucose, Whole Blood Routine 05/29/20 17:14 Vancomycin Random Routine 05/29/20 18:46 vancomycin HCL 1,000 mg .ROUTE .STK-MED ONE 05/29/20 20:32 Piperacillin Sodium/Tazobactam [Zosyn] 3.375 gm IV .STK-MED ONE 05/29/20 20:37 Glucose, Whole Blood Routine 05/30/20 01:28 Piperacillin Sodium/Tazobactam [Zosyn] 3.375 gm IV .STK-MED ONE 05/30/20 05:39 vancomycin HCL 1,000 mg .ROUTE .STK-MED ONE 05/30/20 06:05 Basic Metabolic Panel DAILY@0600 Complete Blood Count no Diff DAILY@0600 05/30/20 07:25 Glucose, Whole Blood Routine 05/30/20 08:44 Piperacillin Sodium/Tazobactam [Zosyn] 3.375 gm IV .STK-MED ONE 05/30/20 11:18 Glucose, Whole Blood Routine 05/30/20 14:39 Piperacillin Sodium/Tazobactam [Zosyn] 3.375 gm IV .STK-MED ONE 05/30/20 16:16 Glucose, Whole Blood Routine 05/30/20 18:05 vancomycin HCL 1,000 mg .ROUTE .STK-MED ONE 05/30/20 19:53 Piperacillin Sodium/Tazobactam [Zosyn] 3.375 gm IV .STK-MED ONE 05/30/20 20:59 Glucose, Whole Blood Routine 05/31/20 02:25 Piperacillin Sodium/Tazobactam [Zosyn] 3.375 gm IV .STK-MED ONE 05/31/20 04:55 Complete Blood Count Auto Diff Routine Vancomycin Trough Stat 05/31/20 05:00 BMP [Basic Metabolic Panel Fasting] Routine 05/31/20 06:18 vancomycin HCL 1,000 mg .ROUTE .STK-MED ONE 05/31/20 09:07 Glucose, Whole Blood Routine 05/31/20 09:08 Piperacillin Sodium/Tazobactam [Zosyn] 3.375 gm IV .STK-MED ONE 05/31/20 11:15 Glucose, Whole Blood Routine 05/31/20 13:52 Piperacillin Sodium/Tazobactam [Zosyn] 3.375 gm IV .STK-MED ONE 05/31/20 16:30 Glucose, Whole Blood Routine 05/31/20 17:45 vancomycin HCL 1,000 mg .ROUTE .STK-MED ONE 05/31/20 20:48 Glucose, Whole Blood Routine 05/31/20 20:51 Piperacillin Sodium/Tazobactam [Zosyn] 3.375 gm IV .STK-MED ONE 06/01/20 01:57 Piperacillin Sodium/Tazobactam [Zosyn] 3.375 gm IV .STK-MED ONE 06/01/20 05:31 vancomycin HCL 1,000 mg .ROUTE .STK-MED ONE 06/01/20 08:32 Glucose, Whole Blood Routine 06/01/20 08:39 Piperacillin Sodium/Tazobactam [Zosyn] 3.375 gm IV .STK-MED ONE Laboratory Last Values WBC 8.4 X10*3/uL (4.8-10.8) 05/31/20 04:55 RBC 3.35 X10*6/uL (4.20-5.50) L 05/31/20 04:55 Hgb 9.5 g/dl (12.0-16.0) L 05/31/20 04:55 Hct 29.9 % (37-47) L 05/31/20 04:55 MCV 89.3 fL (80-98) 05/31/20 04:55 MCH 28.4 pg (27.0-33.0) 05/31/20 04:55 MCHC 31.8 g/dl (31.0-35.0) 05/31/20 04:55 RDW 13.2 % (11.0-16.0) 05/31/20 04:55 Plt Count 243 X10*3/uL (160-400) 05/31/20 04:55 MPV 11.1 fL (9.4-12.3) 05/31/20 04:55 Immature Gran % (Auto) 0.4 % (0.0-0.4) 05/31/20 04:55 Neut % (Auto) 68.9 % (45-73) 05/31/20 04:55 Lymph % (Auto) 20.1 % (20-40) 05/31/20 04:55 Darke % (Auto) 9.2 % (2-11) 05/31/20 04:55 Eos % (Auto) 1.0 % (0-4) 05/31/20 04:55 Baso % (Auto) 0.4 % (0-2) 05/31/20 04:55 Lymph # (Auto) 1.7 X10*3/uL (1.2-4.9) 05/31/20 04:55 Darke # (Auto) 0.8 X10*3/uL (0.1-1.2) 05/31/20 04:55 Eos # (Auto) 0.1 X10*3/uL (0.0-0.4) 05/31/20 04:55 Baso # (Auto) 0.0 X10*3/uL (0.0-0.2) 05/31/20 04:55 Abs Immat Gran (auto) 0.03 X10*3/uL (0.00-0.03) 05/31/20 04:55 Absolute Neuts (auto) 5.8 X10*3/uL (2.0-8.3) 05/31/20 04:55 Absolute Nucleated RBC 0.000 X10*3/uL (0.0-0.012) 05/31/20 04:55 Nucleated RBC % (auto) 0.0 /100WBC (0.0-0.2) 05/31/20 04:55 ESR 83 MM/HR (0-20) H 05/28/20 12:33 Sodium 137 mmol/L (135-145) 05/31/20 05:00 Potassium 4.4 mmol/l (3.3-5.1) 05/31/20 05:00 Chloride 99 mmol/L (96-108) 05/31/20 05:00 Carbon Dioxide 32 mmol/L (22-29) H 05/31/20 05:00 Anion Gap 10 (12-20) L 05/31/20 05:00 BUN 11 mg/dL (9-16) 05/31/20 05:00 Creatinine 0.76 mg/dL (0.5-1.4) 05/31/20 05:00 Estim Creat Clear Calc 69.4 05/31/20 05:00 Estimated GFR > 60 05/31/20 05:00 POC Glucose 328 mg/dL (60-115) H 06/01/20 08:32 Random Glucose 166 mg/dL (60-115) H 05/30/20 06:05 Fasting Glucose 287 mg/dL (60-99) H 05/31/20 05:00 Calcium 8.5 mg/dL (8.4-10.2) 05/31/20 05:00 Vancomycin Trough 12.9 mcg/mL (10.0-20.0) 05/31/20 04:55 Random Vancomycin 10.0 mcg/mL (15-20) L 05/29/20 17:14 COVID-19 (SONG) Negative (Negative) 05/28/20 14:47 COVID-19 Clin Com See Note 05/28/20 14:47 Preliminary micro results at discharge 05/28/20 13:38 Blood Culture - Preliminary Blood - Venous Strep agalactiae (Grp B) 05/28/20 13:38 Blood Culture - Preliminary Blood - Venous Strep agalactiae (Grp B) Discharge Plan Discharge Patient Disposition: Home Health Service Referrals: [facility] [Other] (new ref to [facility] for nrusing for diagnosis sighn symptom managament and medication reconcilation and wound vac assessment and dressing changes . they estrella start on thursday ) [facility] [Other] (SUPPLIER OF [facility] WOUND [facility] - THEY WILL DELIVVER TO THE [facility]OSP[facility]LA TODAY [facility]) [facility]SELF RESUMPTION [Other] (SELF RESUMPTION OF YOUR SERVICES WITH THEM) [facility] [Other] (PLEASE CALL THEM ON FOR APPOINTMENT IF THEY HAVE NOT CALLED YOU) Ellen Cheema MD [Primary Care Provider] - 1 Week (Nurse will call you with a follow up appointment.) Discharge Medications: New doxycycline hyclate 100 mg tablet 100 mg PO BID Qty: 28 RF: 0 Continued insulin aspart U-100 [Novolog Flexpen U-100 Insulin] 100 unit/mL (3 mL) Insulin Pen 0 unit SUBCUT QIDACHS RF: 0 Flovent HFA 110 mcg/actuation Hfa Aerosol Inhaler 2 puff INHALATION BID RF: 0 nicotine 14 mg/24 hr Patch 24 Hour 1 patch TRANSDERMAL DAILY RF: 0 nicotine (polacrilex) 2 mg Gum 2 mg BUCCAL Q2H PRN (Reason: CRAVINGS) RF: 0 methadone [Methadone Intensol] 10 mg/mL Concentrate 95 mg DAILY RF: 0 gabapentin 600 mg tablet 600 mg PO TID RF: 0 insulin degludec 100 unit/mL (3 mL) insulin pen 12 unit subcut QAM RF: 0 (DME) lancets 33 gauge misc See Rx Instructions ea Not Applicable TID Qty: 100 RF: 0 cholecalciferol (vitamin D3) 50 mcg (2,000 unit) tablet 50 mcg PO DAILY RF: 0 albuterol sulfate 90 mcg/actuation HFA aerosol inhaler 2 puff PO Q4H PRN (Reason: Respiratory Distress) RF: 0 furosemide 20 mg tablet 20 mg PO QAM RF: 0 lisinopril 10 mg tablet 10 mg PO DAILY RF: 0 omeprazole 20 mg capsule,delayed release(DR/EC) 20 mg PO DAILY RF: 0 metformin 1,000 mg tablet 1,000 mg PO BIDWMEAL RF: 0 aspirin 81 mg tablet,delayed release (DR/EC) 81 mg PO DAILY RF: 0 bupropion HCl 150 mg tablet sustained-release 12 hr 150 mg PO BID RF: 0 atorvastatin 40 mg tablet 40 mg PO BEDTIME RF: 0 Discharge Orders: Discharge Order (Routine); Ordered 06/01/20 Ordered By: Neal Ordaz Diet: advance to usual diet Activity on Discharge: As tolerated Visit Report Forms: Patient Portal Discharge page Care Plan Goals: recovery Health Concerns: dfi Plan of Treatment: 2 weeks doxy, wound vac, wound care
[2020-06-01 11:42] LABS: Glucose, Whole Blood 312 mg/dL (60-115)
[2020-06-01 12:09] VITALS: BP 169/79; PULSE 77; RESP 16; TEMP 36.6; O2SAT 96
--- NOTE | 2020-06-01 13:03 | MHC.CM.PN ---
RECEIVED A CALL FROM RAFY BUCKLEY [phone] SHE REPORTED THAT SHE HAS BEEN UNABLE TO REACH ANYONE AVAILABLE TO SALES AND SERVICE OFFICER PATIENT CASED DISCUSSED WITH CASE MANAGEMER MANAGER DISCOVERY, WHOM APPROVED BERNARDO AYALA TO TAKE PATIENT T THE FOLLOWING ADDRESS [address] [place] [address] WHERE JUSTIN IS CURRENTLY STAYING. THESE ARRANGEMENTS WERE MADE AND FINALIZED PATIENT INFORMED ASND ACCEPTING OF THIS
--- NOTE | 2020-06-01 14:26 | MHC.CM.PN ---
nurse toddler caregiver note electronic meidcal record reviewed jose botello with case discussed with discharge plan with staff leonora . patient has home wound vac and all related supplies it estrella be changed from hospitla wound vac to home wound vac and then patient estrella be discharged hoem today , family to transport . discharge packet and summary [facility] via [facility] and hand faxed at their request
--- NOTE | 2020-06-05 09:42 | MHC.CM.PN ---
POST DISCHARGE NOTE CALL RECEIVED FROM PATIENT. PATIENT REPORTS THAT SHE HAS NOT HEARD FROM [facility] AND NEEDS A DRESSING CHANGE CALL TO VASQUEZ AT [facility] ([phone]). VASQUEZ STATES THAT AGENCY SPOKE TO PATIENT ON WEDNESDAY 07/04, AND PATIENT WAS HEADED TO THE PCP OFFICE, AND DENIED A NEED FOR SERVICES ON THURSDAY. [facility] AND PATIENT AGREED THAT THURSDAY (06/06/2020) WAS A GOOD TIME FOR THE [facility] TO VISIT FOR WOUND CARE. VASQUEZ WILL CONTACT PATIENT TO REMIND HER.
== END 2020-06-01 15:00 | disposition home health service (06) | DRG 638 ==
LOC: HO.ED 13:36 → HO.S3 18:33
PROVIDERS: Nurse Practitioner Family; Admitting Provider Family Medicine; Emergency Provider Emergency Medicine; PCP Family Medicine; Visit Provider Internal Medicine
DX: E11.69 Type 2 diabetes mellitus with other specified complication (principal); F11.20 Opioid dependence, uncomplicated; L97.419 Non-pressure chronic ulcer of right heel and midfoot with unspecified severity; M86.471 Chronic osteomyelitis with draining sinus, right ankle and foot; E78.5 Hyperlipidemia, unspecified; E11.621 Type 2 diabetes mellitus with foot ulcer; F17.210 Nicotine dependence, cigarettes, uncomplicated; Z71.6 Tobacco abuse counseling; Z20.828 Contact with and (suspected) exposure to other viral communicable diseases; E11.51 Type 2 diabetes mellitus with diabetic peripheral angiopathy without gangrene; Z79.4 Long term (current) use of insulin; Z79.82 Long term (current) use of aspirin; Z79.51 Long term (current) use of inhaled steroids; Z79.899 Other long term (current) drug therapy
CPT/HCPCS: 36415; 73630; 80048; 80202; 82947; 85025; 85027; 85652; 87040; 87147; 87186; 87635; 93923; 93925; 94640; 96365; 96375; 99285; J1650; J2543; J3370

== ENCOUNTER 2020-07-03 11:39 | Emergency (ER) | payer MEDICARE, MEDICAID, SELFPAY ==
[2020-07-03 12:03] VITALS: BP 178/79; PULSE 79; RESP 20; TEMP 35.6; O2SAT 99; BMI 33.3
[2020-07-03 16:33] LABS: Basophils Percent Auto 0.1 % (0-2); Eosinophils Percent Auto 0.1 % (0-4); Hemoglobin 11.8 g/dl (12.0-16.0); Imm Gran Abs Auto 0.11 X10*3/uL (0.00-0.03); Imm Gran Pct Auto 0.6 % (0.0-0.4); Lymphocytes Absolute Auto 0.5 X10*3/uL (1.2-4.9); Lymphocytes Percent Auto 2.4 % (20-40); Mean Corpuscular HGB Conc 31.9 g/dl (31.0-35.0); Mean Corpuscular Hemoglobin 26.9 pg (27.0-33.0); Mean Corpuscular Volume 84.3 fL (80-98); Mean Platelet Volume 10.8 fL (9.4-12.3); Monocytes Percent Auto 5.4 % (2-11); Neutrophils Percent Auto 91.4 % (45-73); Platelet Count 468 X10*3/uL (160-400); Red Blood Count 4.39 X10*6/uL (4.20-5.50); Red Cell Distribution Width 13.9 % (11.0-16.0); SCAN SMEAR FLAG 1; White Blood Count 18.6 X10*3/uL (4.8-10.8)
[2020-07-03 16:35] LABS: MANUAL DIFF FLAG NO
[2020-07-03 17:24] LABS: Anion Gap 24 (12-20); Blood Urea Nitrogen 30 mg/dL (9-16); Calcium 8.8 mg/dL (8.4-10.2); Carbon Dioxide 19 mmol/L (22-29); Chloride 88 mmol/L (96-108); Creatinine Clr Calc Pharmacy 44.6; Estimated Glomerular Filt Rate 47; Glucose Random 543 mg/dL (60-115); Sodium 127 mmol/L (135-145)
[2020-07-05 07:26] LABS: Glucose, Whole Blood 445 mg/dL (60-115)
== END 2020-07-03 18:33 | disposition left against medical advice (07) ==
LOC: HO.ED 18:34
PROVIDERS: Emergency Provider Emergency Medicine; PCP Family Medicine
DX: R53.1 Weakness (principal)
CPT/HCPCS: 36415; 80048; 82947; 85025; 99282; 99283

== ENCOUNTER 2020-07-04 09:39 | Inpatient (IN) | payer MEDICARE, MEDICAID, SELFPAY ==
[2020-07-04] VITALS (8 sets, daily range): BP systolic 107–224; BP diastolic 62–99; PULSE 74–108; RESP 18–35; TEMP 36.4–37.9; O2SAT 93–100; BMI 33.3; BMI 31.1; BMI 28.3
--- NOTE | 2020-07-04 | NM_ITS ---
EXAMINATION: LIMITED 3 PHASE BONE SCAN. CLINICAL INFORMATION: Osteomyelitis of right metatarsophalangeal joints COMPARISON: Right foot x-ray 05/28/2020 TECHNIQUE: Following intravenous administration of 22 mCi of 90 9M technetium MDP, three-phase bone scan of both feet were obtained. FINDINGS: On first phase of bone scan there is increased perfusion seen in hindfoot and tarsal region. On second phase of bone scan there is increased blood pool activity seen in the similar region of mid foot including the tarsal bones and proximal metatarsals. On third phase bone scan is intense activity seen within approximate third through fifth proximal metatarsals, mid and lateral cuneiform, and talar bone. The third, fourth and fifth proximal metatarsal joint spaces are spared. These findings are highly suspicious for osteomyelitis. The third fourth and fifth tarsometatarsal joint space has no activity on all 3 phases. NM/NM bone 3 phase IMPRESSION: Abnormal three-phase bone scan involving right proximal third, fourth fifth metatarsal, mid and lateral cuneiform bones and likely the talus. These findings are suspicious and highly suggestive of osteomyelitis. Results were discussed in person with Dr. Ledy De Jesus immediately after the exam at 11:20 AM
--- NOTE | 2020-07-04 | ECG_ITS ---
Test Reason : ABDOMINAL PAIN Blood Pressure : / mmHG Vent. Rate : 105 BPM Atrial Rate : 105 BPM P-R Int : 186 ms QRS Dur : 086 ms QT Int : 368 ms P-R-T Axes : 056 004 045 degrees QTc Int : 486 ms Sinus tachycardia with Premature atrial complexes with Aberrant conduction Left ventricular hypertrophy with repolarization abnormality Abnormal ECG When compared with ECG of 04-JUL-2020 10:01, No significant change was found Referred By: Shannon Kenny Electronically Signed By:CATRACHITO NUNEZ
--- NOTE | 2020-07-04 09:56 | XR_ITS ---
EXAMINATION: XR CHEST CLINICAL INFORMATION: Shortness of breath. COMPARISON: 11/05/2018 portable chest. TECHNIQUE: Frontal view of the chest was obtained. FINDINGS: No significant abnormality is noted involving the heart, lungs, mediastinum, bony thorax or soft tissues. XR/XR chest 1V IMPRESSION: No acute cardiopulmonary process.
--- NOTE | 2020-07-04 09:56 | CT_ITS ---
EXAMINATION: CHEST, CT ABDOMEN PELVIS CONTRAST. CLINICAL INFORMATION: Epigastric pain with Covid positive COMPARISON: Chest x-ray 07/04/2020 CT chest 02/27/2020 TECHNIQUE: 5 mm thin axial and reformatted 3 mm thin sagittal and coronal images of chest, abdomen and pelvis were obtained following IV 100 mL Omnipaque 350. DLP 938 FINDINGS: Chest: The lungs are well-expanded with no acute pneumonic consolidation. There is no mass, pulmonary or groundglass density. There is nonspecific haziness in the right middle lobe and lingular segments. There is no pleural effusion on the calcification or thickening. Heart size and the great vessels are normal caliber. The central trachea and the bronchi widely patent. The thyroid lobes are symmetrical and normal. No abnormal size mediastinal or hilar lymph nodes seen. There is no pericardial effusion Abdomen and pelvis: The liver is normal size, shape and homogeneous density. There is no focal lesion or intrahepatic ductal dilatation. The gallbladder has been surgically removed. Visualized spleen, pancreas and bilateral adrenal glands are unremarkable. Both kidneys are normal size, shape and position. There are vascular calcifications in the right hilum. No hydroureteronephrosis seen. The abdominal aorta is normal caliber. No retroperitoneal lymph nodes seen. The bowel gas pattern is nonspecific with scattered stool, diverticuli and gas in the colon. The small bowel loops are normal caliber. No free air or free fluid seen. The abdomen appears unremarkable. Imaging through the pelvis reveals anteverted uterus. There is no adnexal mass, free air free fluid. Bone windows reveal no lytic or sclerotic process seen. There is mild facet joint arthropathy L4-L5 and L5-S1 disc level. No lytic process. There is moderate ventral spondylosis lower dorsal spine. CT/CT abdomen pelvis w con IMPRESSION: No evidence of PE or aortic aneurysm. Suspect mild haziness in the right middle lobe and lingula. Rest of the lungs are well-expanded and clear. No abnormal mediastinal or hilar lymph nodes or mass seen. No acute intra-abdominal process seen. Mild constipation. Scattered sigmoid and descending colon diverticulosis without diverticulitis.
--- NOTE | 2020-07-04 10:00 | ED.ABDPAIN ---
HPI - Abdominal Pain General Chief Complaint: Abdominal Pain Stated Complaint: ABD PAIN,NAUSEA,WEAKNESS X3DAYS Time Seen by Provider: 07/04/20 09:56 History of Present Illness HPI narrative: Patient is 60-year-old female presents today with generalized malaise weakness nausea vomiting for the last 3 days. Patient unable to keep down good amount of p.o.. There has been sick contact in the family that is being tested for coronavirus. Patient denies any coughing congestion upper respiratory symptoms. Positive history of diabetes. Currently on insulin and also on metformin. Patient claims she is compliant with medication. The dose of her medications unchanged. Patient denies any history of recreational drug use. Denies any travel. Denies any chest pain. Denies any a diarrhea. Vomiting mostly consistent with food. Patient from home. Related Data Home Medications Medication Instructions Recorded Confirmed albuterol sulfate 90 mcg/actuation 2 puff PO Q4H PRN 04/24/20 05/28/20 aerosol inhaler aspirin 81 mg tablet,delayed 81 mg PO DAILY 04/24/20 05/28/20 release atorvastatin 40 mg tablet 40 mg PO BEDTIME 04/24/20 05/28/20 bupropion HCl 150 mg tablet,12 hr 150 mg PO BID 04/24/20 05/28/20 sustained-release cholecalciferol (vitamin D3) 50 50 mcg PO DAILY 04/24/20 05/28/20 mcg (2,000 unit) tablet furosemide 20 mg tablet 20 mg PO QAM 04/24/20 05/28/20 insulin degludec 100 unit/mL (3 12 unit SUBCUT QAM 04/24/20 05/28/20 mL) subcutaneous pen lancets 33 gauge #100 ea 04/24/20 05/29/20 lisinopril 10 mg tablet 10 mg PO DAILY 04/24/20 05/28/20 metformin 1,000 mg tablet 1,000 mg PO BIDWMEAL 04/24/20 05/28/20 omeprazole 20 mg capsule,delayed 20 mg PO DAILY 04/24/20 05/28/20 release gabapentin 600 mg tablet 600 mg PO TID 05/03/20 05/28/20 Flovent HFA 2 puff INHALATION BID 05/28/20 05/28/20 insulin aspart U-100 [Novolog 0 unit SUBCUT QIDACHS 05/28/20 05/28/20 Flexpen U-100 Insulin] methadone [Methadone Intensol] 95 mg DAILY 05/28/20 05/28/20 nicotine 1 patch TRANSDERMAL DAILY 05/28/20 05/28/20 nicotine (polacrilex) 2 mg BUCCAL Q2H PRN 05/28/20 05/28/20 Previous Rx's Medication Instructions Recorded doxycycline hyclate 100 mg PO BID #28 tab 06/01/20 Allergies Allergy/AdvReac Type Severity Reaction Status Date / Time No Known Allergies Allergy Verified 05/03/20 13:17 Review of Systems Review of Systems Constitutional: No Weight loss, No Fever, No Chills, No Night Sweats, No Fatigue, positive Malaise ENT/Mouth: No Hearing loss, No Ear Pain, No Nasal Congestion, No Sinus Pain, No Hoarseness, No sore throat, No Rhinorrhea, No Swallowing Difficulty Eyes: No Eye Pain, No Swelling, No Redness, No Foreign Body, No Discharge, No Vision Changes Cardiovascular: No Chest Pain, No SOB, No Dyspnea on Exertion, No Orthopnea, No Edema, No Palpitations Respiratory: No Cough, No Sputum, No Wheezing, No Smoke Exposure, No Dyspnea Gastrointestinal: Positive Nausea, positive Vomiting, No Diarrhea, No Constipation, positive abdominal Pain, No Hematochezia, No Melena Genitourinary: no irregular bleeding, No Dysuria, No Urinary Frequency, No Hematuria, No Urinary Incontinence, No Urgency, No Flank Pain, No Urinary Flow Changes, No Hesitancy Musculoskeletal: No joint pain, No Myalgias, No Joint Swelling Skin: No Skin Lesions, No rash Neuro: No Weakness, No Numbness, No Paresthesias, No Loss of Consciousness, No Dizziness, No Headache Psych: No Anxiety/Panic, No Depression, No SI/HI/AH/VH, No Social Issues, Heme/Lymph: No Bruising, No Bleeding,No Lymphadenopathy Endocrine: No Polyuria, No Polydipsia, No Temperature Intolerance Physical Exam Vital Signs: Vital Signs: Last Vital Signs Temp 100.3 F 07/04/20 14:09 Pulse 105 H 07/04/20 14:09 Resp 24 H 07/04/20 14:09 BP 205/91 H 07/04/20 14:09 Pulse Ox 95 07/04/20 14:09 Body Mass Index 31.1 Appearance: Alert. Oriented X3. No acute distress. Eyes: Pupils equal, round and reactive to light. ENT: Pharynx normal. Neck: Normal inspection. Neck supple. No lymph nodes noted. No crepitus CVS: Normal heart rate and rhythm. Pulses normal. Normal S1 and S2 Respiratory: No respiratory distress. Breath sounds normal. No Wheezing. No rales Abdomen: Soft and nontender. No rigidity. No distention. good BS x4 Skin: Skin warm and dry. Normal skin color. Normal skin turgor. Extremities: No lower extremity edema. Neurovascular intact to all extremities. No Lacerations. No Rash Neuro: Oriented X 3. No motor deficit. No sensory deficit. Moving all extermities. No slurred speech MDM - Abdominal Pain MDM Narrative Medical decision making narrative: Patient's chest x-ray negative for infiltrate positive mild coughing a coronavirus test was done that was positive. Patient had diabetic foot ulcers history history of osteomyelitis right foot was examined it looks chronic ulcers was noted. Given patient did not get IV antibiotics. Was on p.o. antibiotics for 2 weeks back in May. Will start patient on meropenem and a stream in a.m. for potential infection gait based on the resistance pattern. Patient started on insulin. Insulin drip for her DKA. IV fluids ordered. Patient given total order of over 3 L of IV fluids. Cultures were obtained. Initial VBG showed a pH of 7.3 with an anion gap of 26. Patient was started on insulin drip boluses of insulin. Repeat electrolytes showed an anion gap of 24. Bicarb has actually declined. Patient's case discussed with the intensive care team. Patient to be in admitted to the intensive care unit. Tylenol given for fever. CT scan of the chest abdomen pelvis still pending. Lab Data Result diagrams: 07/04/20 10:17 07/04/20 13:10 Labs: Lab Results 07/04/20 07/04/20 07/04/20 Range/Units 10:16 10:17 10:17 WBC 14.8 H (4.8-10.8) X10*3/uL RBC 4.60 (4.20-5.50) X10*6/uL Hgb 12.3 (12.0-16.0) g/dl Hct 39.0 (37-47) % MCV 84.8 (80-98) fL MCH 26.7 L (27.0-33.0) pg MCHC 31.5 (31.0-35.0) g/dl RDW 13.8 (11.0-16.0) % Plt Count 387 (160-400) X10*3/uL MPV 11.1 (9.4-12.3) fL Immature Gran % (Auto) 0.3 (0.0-0.4) % Neut % (Auto) 95.0 H (45-73) % Lymph % (Auto) 2.2 L (20-40) % Reynolds % (Auto) 2.3 (2-11) % Eos % (Auto) 0.1 (0-4) % Baso % (Auto) 0.1 (0-2) % Lymph # (Auto) 0.3 L (1.2-4.9) X10*3/uL Reynolds # (Auto) 0.3 (0.1-1.2) X10*3/uL Eos # (Auto) 0.0 (0.0-0.4) X10*3/uL Baso # (Auto) 0.0 (0.0-0.2) X10*3/uL Abs Immat Gran (auto) 0.05 H (0.00-0.03) X10*3/uL Absolute Neuts (auto) 14.1 H (2.0-8.3) X10*3/uL Absolute Nucleated RBC 0.000 (0.0-0.012) X10*3/uL Nucleated RBC % (auto) 0.0 (0.0-0.2) /100WBC Smear Tech's Comments VERIFIED PT 15.7 H (10.8-13.0) SEC INR 1.3 H (0.9-1.1) VBG pH (7.32-7.43) Sodium (135-145) mmol/L Potassium (3.3-5.1) mmol/l Chloride (96-108) mmol/L Carbon Dioxide (22-29) mmol/L Anion Gap (12-20) BUN (9-16) mg/dL Creatinine (0.5-1.4) mg/dL Estim Creat Clear Calc Estimated GFR POC Glucose (60-115) mg/dL Random Glucose (60-115) mg/dL Lactic Acid 2.3 H* (0.5-2.0) mmol/L Lactic Acid Fup @ 2Hr (0.5-2.0) mmol/L Calcium (8.4-10.2) mg/dL Magnesium (1.6-2.6) mg/dL Total Bilirubin (0.0-1.0) mg/dL Direct Bilirubin (0.0-0.5) mg/dL AST (5-31) U/L ALT (0-31) U/L Alkaline Phosphatase (39-117) U/L Troponin I High Sens (<3.5-17.0) ng/L Total Protein (6.5-8.0) g/dL Albumin (3.5-5.0) g/dL Lipase (8-78) U/L Beta-Hydroxybutyrate/Acetoacetate Acetone, Qual (Negative) Coronavirus (PCR) (Negative) Influenza Type A (PCR) (Negative) Influenza Type B (PCR) (Negative) RSV RNA Qual (PCR) (Negative) 07/04/20 07/04/20 07/04/20 Range/Units 10:17 10:17 10:17 WBC (4.8-10.8) X10*3/uL RBC (4.20-5.50) X10*6/uL Hgb (12.0-16.0) g/dl Hct (37-47) % MCV (80-98) fL MCH (27.0-33.0) pg MCHC (31.0-35.0) g/dl RDW (11.0-16.0) % Plt Count (160-400) X10*3/uL MPV (9.4-12.3) fL Immature Gran % (Auto) (0.0-0.4) % Neut % (Auto) (45-73) % Lymph % (Auto) (20-40) % Reynolds % (Auto) (2-11) % Eos % (Auto) (0-4) % Baso % (Auto) (0-2) % Lymph # (Auto) (1.2-4.9) X10*3/uL Reynolds # (Auto) (0.1-1.2) X10*3/uL Eos # (Auto) (0.0-0.4) X10*3/uL Baso # (Auto) (0.0-0.2) X10*3/uL Abs Immat Gran (auto) (0.00-0.03) X10*3/uL Absolute Neuts (auto) (2.0-8.3) X10*3/uL Absolute Nucleated RBC (0.0-0.012) X10*3/uL Nucleated RBC % (auto) (0.0-0.2) /100WBC Smear Tech's Comments PT (10.8-13.0) SEC INR (0.9-1.1) VBG pH (7.32-7.43) Sodium 129 L (135-145) mmol/L Potassium 3.9 (3.3-5.1) mmol/l Chloride 87 L (96-108) mmol/L Carbon Dioxide 20 L (22-29) mmol/L Anion Gap 26 H (12-20) BUN 25 H (9-16) mg/dL Creatinine 1.19 (0.5-1.4) mg/dL Estim Creat Clear Calc 42.8 Estimated GFR 46 POC Glucose (60-115) mg/dL Random Glucose 517 H* (60-115) mg/dL Lactic Acid (0.5-2.0) mmol/L Lactic Acid Fup @ 2Hr (0.5-2.0) mmol/L Calcium 9.5 D (8.4-10.2) mg/dL Magnesium (1.6-2.6) mg/dL Total Bilirubin 0.6 (0.0-1.0) mg/dL Direct Bilirubin 0.4 (0.0-0.5) mg/dL AST 8 (5-31) U/L ALT 9 (0-31) U/L Alkaline Phosphatase 118 H (39-117) U/L Troponin I High Sens 6.6 (<3.5-17.0) ng/L Total Protein 8.3 H (6.5-8.0) g/dL Albumin 3.2 L (3.5-5.0) g/dL Lipase 10 (8-78) U/L Beta-Hydroxybutyrate/Acetoacetate Cancelled Acetone, Qual Small H (Negative) Coronavirus (PCR) (Negative) Influenza Type A (PCR) (Negative) Influenza Type B (PCR) (Negative) RSV RNA Qual (PCR) (Negative) 07/04/20 07/04/20 07/04/20 Range/Units 10:24 10:53 13:03 WBC (4.8-10.8) X10*3/uL RBC (4.20-5.50) X10*6/uL Hgb (12.0-16.0) g/dl Hct (37-47) % MCV (80-98) fL MCH (27.0-33.0) pg MCHC (31.0-35.0) g/dl RDW (11.0-16.0) % Plt Count (160-400) X10*3/uL MPV (9.4-12.3) fL Immature Gran % (Auto) (0.0-0.4) % Neut % (Auto) (45-73) % Lymph % (Auto) (20-40) % Reynolds % (Auto) (2-11) % Eos % (Auto) (0-4) % Baso % (Auto) (0-2) % Lymph # (Auto) (1.2-4.9) X10*3/uL Reynolds # (Auto) (0.1-1.2) X10*3/uL Eos # (Auto) (0.0-0.4) X10*3/uL Baso # (Auto) (0.0-0.2) X10*3/uL Abs Immat Gran (auto) (0.00-0.03) X10*3/uL Absolute Neuts (auto) (2.0-8.3) X10*3/uL Absolute Nucleated RBC (0.0-0.012) X10*3/uL Nucleated RBC % (auto) (0.0-0.2) /100WBC Smear Tech's Comments PT (10.8-13.0) SEC INR (0.9-1.1) VBG pH 7.30 L (7.32-7.43) Sodium (135-145) mmol/L Potassium (3.3-5.1) mmol/l Chloride (96-108) mmol/L Carbon Dioxide (22-29) mmol/L Anion Gap (12-20) BUN (9-16) mg/dL Creatinine (0.5-1.4) mg/dL Estim Creat Clear Calc Estimated GFR POC Glucose 415 H* (60-115) mg/dL Random Glucose (60-115) mg/dL Lactic Acid (0.5-2.0) mmol/L Lactic Acid Fup @ 2Hr (0.5-2.0) mmol/L Calcium (8.4-10.2) mg/dL Magnesium (1.6-2.6) mg/dL Total Bilirubin (0.0-1.0) mg/dL Direct Bilirubin (0.0-0.5) mg/dL AST (5-31) U/L ALT (0-31) U/L Alkaline Phosphatase (39-117) U/L Troponin I High Sens (<3.5-17.0) ng/L Total Protein (6.5-8.0) g/dL Albumin (3.5-5.0) g/dL Lipase (8-78) U/L Beta-Hydroxybutyrate/Acetoacetate Acetone, Qual (Negative) Coronavirus (PCR) POSITIVE A (Negative) Influenza Type A (PCR) NEGATIVE (Negative) Influenza Type B (PCR) NEGATIVE (Negative) RSV RNA Qual (PCR) NEGATIVE (Negative) 07/04/20 07/04/20 Range/Units 13:10 13:10 WBC (4.8-10.8) X10*3/uL RBC (4.20-5.50) X10*6/uL Hgb (12.0-16.0) g/dl Hct (37-47) % MCV (80-98) fL MCH (27.0-33.0) pg MCHC (31.0-35.0) g/dl RDW (11.0-16.0) % Plt Count (160-400) X10*3/uL MPV (9.4-12.3) fL Immature Gran % (Auto) (0.0-0.4) % Neut % (Auto) (45-73) % Lymph % (Auto) (20-40) % Reynolds % (Auto) (2-11) % Eos % (Auto) (0-4) % Baso % (Auto) (0-2) % Lymph # (Auto) (1.2-4.9) X10*3/uL Reynolds # (Auto) (0.1-1.2) X10*3/uL Eos # (Auto) (0.0-0.4) X10*3/uL Baso # (Auto) (0.0-0.2) X10*3/uL Abs Immat Gran (auto) (0.00-0.03) X10*3/uL Absolute Neuts (auto) (2.0-8.3) X10*3/uL Absolute Nucleated RBC (0.0-0.012) X10*3/uL Nucleated RBC % (auto) (0.0-0.2) /100WBC Smear Tech's Comments PT (10.8-13.0) SEC INR (0.9-1.1) VBG pH (7.32-7.43) Sodium 130 L (135-145) mmol/L Potassium 3.8 (3.3-5.1) mmol/l Chloride 94 L (96-108) mmol/L Carbon Dioxide 16 L (22-29) mmol/L Anion Gap 24 H (12-20) BUN 23 H (9-16) mg/dL Creatinine 0.96 (0.5-1.4) mg/dL Estim Creat Clear Calc 53.0 Estimated GFR 59 POC Glucose (60-115) mg/dL Random Glucose 446 H* (60-115) mg/dL Lactic Acid (0.5-2.0) mmol/L Lactic Acid Fup @ 2Hr 2.1 H* (0.5-2.0) mmol/L Calcium 8.5 D (8.4-10.2) mg/dL Magnesium 1.7 (1.6-2.6) mg/dL Total Bilirubin (0.0-1.0) mg/dL Direct Bilirubin (0.0-0.5) mg/dL AST (5-31) U/L ALT (0-31) U/L Alkaline Phosphatase (39-117) U/L Troponin I High Sens (<3.5-17.0) ng/L Total Protein (6.5-8.0) g/dL Albumin (3.5-5.0) g/dL Lipase (8-78) U/L Beta-Hydroxybutyrate/Acetoacetate Acetone, Qual (Negative) Coronavirus (PCR) (Negative) Influenza Type A (PCR) (Negative) Influenza Type B (PCR) (Negative) RSV RNA Qual (PCR) (Negative) Critical Care Time Critical Care Time Total Critical Care Time: 130 Attestation: I have personally provided 40 minutes of critical care time exclusive of time spent on separately billable procedures. Time includes review of lab data, radiology results, discussion with consultants, and monitoring for potential decompensation. Interventions were performed as documented above Discharge Plan Discharge Clinical Impression: Diabetic foot infection, COVID-19, DKA (diabetic ketoacidoses) Prescriptions: No Action insulin aspart U-100 [Novolog Flexpen U-100 Insulin] 100 unit/mL (3 mL) Insulin Pen 0 unit SUBCUT QIDACHS RF: 0 Flovent HFA 110 mcg/actuation Hfa Aerosol Inhaler 2 puff INHALATION BID RF: 0 nicotine 14 mg/24 hr Patch 24 Hour 1 patch TRANSDERMAL DAILY RF: 0 nicotine (polacrilex) 2 mg Gum 2 mg BUCCAL Q2H PRN (Reason: CRAVINGS) RF: 0 methadone [Methadone Intensol] 10 mg/mL Concentrate 95 mg DAILY RF: 0 doxycycline hyclate 100 mg tablet 100 mg PO BID Qty: 28 RF: 0 gabapentin 600 mg tablet 600 mg PO TID RF: 0 insulin degludec 100 unit/mL (3 mL) insulin pen 12 unit subcut QAM RF: 0 (DME) lancets 33 gauge misc See Rx Instructions ea Not Applicable TID Qty: 100 RF: 0 cholecalciferol (vitamin D3) 50 mcg (2,000 unit) tablet 50 mcg PO DAILY RF: 0 albuterol sulfate 90 mcg/actuation HFA aerosol inhaler 2 puff PO Q4H PRN (Reason: Respiratory Distress) RF: 0 furosemide 20 mg tablet 20 mg PO QAM RF: 0 lisinopril 10 mg tablet 10 mg PO DAILY RF: 0 omeprazole 20 mg capsule,delayed release(DR/EC) 20 mg PO DAILY RF: 0 metformin 1,000 mg tablet 1,000 mg PO BIDWMEAL RF: 0 aspirin 81 mg tablet,delayed release (DR/EC) 81 mg PO DAILY RF: 0 bupropion HCl 150 mg tablet sustained-release 12 hr 150 mg PO BID RF: 0 atorvastatin 40 mg tablet 40 mg PO BEDTIME RF: 0 PMFSH Past Medical History Medical History Chronic prescription opiate use COPD (chronic obstructive pulmonary disease) Depression Diabetes mellitus Diabetic foot infection Dyslipidemia Glaucoma Pulmonary emboli Pulmonary nodule Tobacco dependence Surgical History Cataract extraction status, left eye Cataract extraction status, right eye Hx of cholecystectomy Family History Family History Other CVA (cerebral vascular accident) Social History Social History Household Members: Family Housing: Apartment Alcohol intake: never Smoking Status: Current every day smoker Tobacco Type: Cigarette Packs Per Day: 1 Cigarettes Per Day: 20.0 Years Smoked: 14 years old Smoked in Last 30 Days: No Second Hand Smoke Exposure: No Use of substances other than those prescribed or required for medical reasons: No Advance Directives: No Advance Directives Information Provided: No service: Yes (hx on methadone) Current occupational status: unemployed
[2020-07-04] MEDS: 0.9 % Sodium Chloride 500 ML 999 ML IV ×3 (10:09→14:17)
[2020-07-04 10:35] LABS: Basophils Percent Auto 0.1 % (0-2); Eosinophils Percent Auto 0.1 % (0-4); Hemoglobin 12.3 g/dl (12.0-16.0); Imm Gran Abs Auto 0.05 X10*3/uL (0.00-0.03); Imm Gran Pct Auto 0.3 % (0.0-0.4); Lymphocytes Absolute Auto 0.3 X10*3/uL (1.2-4.9); Lymphocytes Percent Auto 2.2 % (20-40); MANUAL DIFF FLAG SCAN; Mean Corpuscular HGB Conc 31.5 g/dl (31.0-35.0); Mean Corpuscular Hemoglobin 26.7 pg (27.0-33.0); Mean Corpuscular Volume 84.8 fL (80-98); Mean Platelet Volume 11.1 fL (9.4-12.3); Monocytes Absolute Auto 0.3 X10*3/uL (0.1-1.2); Monocytes Percent Auto 2.3 % (2-11); Neutrophils Absolute Auto 14.1 X10*3/uL (2.0-8.3); Platelet Count 387 X10*3/uL (160-400); Red Cell Distribution Width 13.8 % (11.0-16.0); SCAN SMEAR FLAG 1; White Blood Count 14.8 X10*3/uL (4.8-10.8)
[2020-07-04 10:43] LABS: INTERNATIONAL NORM RATIO 1.3 (0.9-1.1); Prothrombin Time 15.7 SEC (10.8-13.0)
[2020-07-04 10:53] LABS: SLIDE REVIEW VERIFIED
[2020-07-04 11:00] LABS: Lactic Acid 2.3 mmol/L (0.5-2.0)
[2020-07-04 11:01] LABS: Alanine Aminotransferase 9 U/L (0-31); Albumin Level 3.2 g/dL (3.5-5.0); Alkaline Phosphatase 118 U/L (39-117); Anion Gap 26 (12-20); Aspartate Amino Transferase 8 U/L (5-31); Bilirubin Direct 0.4 mg/dL (0.0-0.5); Bilirubin Total 0.6 mg/dL (0.0-1.0); Blood Urea Nitrogen 25 mg/dL (9-16); Calcium 9.5 mg/dL (8.4-10.2); Carbon Dioxide 20 mmol/L (22-29); Chloride 87 mmol/L (96-108); Creatinine Clr Calc Pharmacy 42.8; Estimated Glomerular Filt Rate 46; Glucose Random 517 mg/dL (60-115); Lipase 10 U/L (8-78); Potassium 3.9 mmol/l (3.3-5.1); Sodium 129 mmol/L (135-145); Total Protein 8.3 g/dL (6.5-8.0); Troponin-I High Sensitivity 6.6 ng/L (<3.5-17.0)
[2020-07-04 11:07] LABS: Influenza A PCR NEGATIVE (Negative); Influenza B PCR NEGATIVE (Negative); Resp Syncy Virus RNA Qual PCR NEGATIVE (Negative); SARS COV2 PCR INHOUSE POSITIVE (Negative)
[2020-07-04 11:14] LABS: Acetone, serum QL Small (Negative)
[2020-07-04 12:31] LABS: Reflex Lactate? Lactic Acid Added
[2020-07-04] MEDS: Potassium Chloride/H20 10 MEQ/100 ML PIGGYBACK 100 MEQ IV ×2 (12:40→13:59)
[2020-07-04] MEDS: Insulin Regular/NS 100 UNIT/100 ML PLAST..BAG IVCONT (12:48)
[2020-07-04] MEDS: Insulin Regular, Human 100 UNIT/ML 3 ML VIAL IVPUSH (12:51)
[2020-07-04 13:08] LABS: Glucose, Whole Blood 415 mg/dL (60-115)
[2020-07-04 13:46] LABS: ~Lactic Acid-LAB USE ONLY 2.1 mmol/L (0.5-2.0)
[2020-07-04 13:55] LABS: Anion Gap 24 (12-20); Blood Urea Nitrogen 23 mg/dL (9-16); Calcium 8.5 mg/dL (8.4-10.2); Carbon Dioxide 16 mmol/L (22-29); Chloride 94 mmol/L (96-108); Estimated Glomerular Filt Rate 59; Glucose Random 446 mg/dL (60-115); Magnesium 1.7 mg/dL (1.6-2.6); Potassium 3.8 mmol/l (3.3-5.1); Sodium 130 mmol/L (135-145)
[2020-07-04] MEDS: 0.9 % Sodium Chloride 1,000 ML 999 ML IV ×2 (14:01→14:17)
[2020-07-04] MEDS: Acetaminophen 325 MG TABLET 975 MG PO (14:16)
--- NOTE | 2020-07-04 14:22 | PC.NURSE ---
Dr. Kenny aware of pts current BP and ok to give remaining fluid bolus.
--- NOTE | 2020-07-04 14:30 | PC.NURSE ---
Called pharmacy for azo. antibiotic- states they will call back, unsure if it is available.
[2020-07-04] MEDS: iohexoL 350 MG/ML 100 ML INFUS..BTL IV (14:47)
[2020-07-04 15:20] LABS: Reflex Lactate? 2 Y
[2020-07-04] MEDS: Enoxaparin Sodium 40 MG/0.4 ML SYRINGE SUBCUT (15:28)
--- NOTE | 2020-07-04 15:33 | PM.CCHP ---
History of Present Illness Date of Service: 07/04/20 Chief Complaint: 60-YEAR-OLD female with abdominal pain and N/V Type 2 obese diabetic with smoking and COPD several days of inability to hold down food or drink due to abdominal discomfort with nausea and vomiting noted to have positive anion gap metabolic acidosis with trivial lactate and positive urine acetone so presumably diabetic ketoacidosis with glucose of 550 and pseudo hyponatremia in addition Swab was positive for coronavirus but the CT scan shows probable mosaic perfusion pattern consistent with COPD but cannot completely rule out early ground-glass infiltration but room air oxygen saturation 95% without symptom Patient is also in on on a methadone program and denies any illicit drug use or alcohol Elevated white count with left shift and background 1 month ago of a deep penetrating foot ulcer despite circulatory adequacy with evidence of marrow edema on scan implying osteomyelitis but received 5 days of Zosyn and vancomycin and then 2 subsequent weeks of tetracycline only but this was a polymicrobial infection including Proteus methicillin sensitive Staph aureus and strep agalactiae from the wound and bacteremia so I asked after cultures were drawn to give 1 empiric dose of cefepime and meropenem and we will do a triple phase scan to look for evidence of osteomyelitis Patient was given bolus normal saline started on normal saline and potassium replacement drip along with IV insulin drip but the serum bicarb deteriorated in the emergency room so she will be admitted to the ICU Review of Systems Review of Systems: Yes all other systems are reviewed and are negative PMFSH Past Medical History Medical History Chronic prescription opiate use COPD (chronic obstructive pulmonary disease) Depression Diabetes mellitus Diabetic foot infection Dyslipidemia Glaucoma Pulmonary emboli Pulmonary nodule Tobacco dependence Family History Family History Other CVA (cerebral vascular accident) Surgical History Surgical History Cataract extraction status, left eye Cataract extraction status, right eye Hx of cholecystectomy Social History Social History Household Members: Family Housing: Apartment Alcohol intake: never Smoking Status: Current every day smoker Tobacco Type: Cigarette Packs Per Day: 1 Cigarettes Per Day: 20.0 Years Smoked: 14 years old Smoked in Last 30 Days: No Second Hand Smoke Exposure: No Use of substances other than those prescribed or required for medical reasons: No Advance Directives: No Advance Directives Information Provided: No service: Yes (hx on methadone) Current occupational status: unemployed Meds Allergies Allergy/AdvReac Type Severity Reaction Status Date / Time No Known Allergies Allergy Verified 05/03/20 13:17 Home Medications Medication Instructions Recorded Confirmed Type albuterol sulfate 90 mcg/actuation 2 puff PO Q4H PRN 04/24/20 05/28/20 History aerosol inhaler aspirin 81 mg tablet,delayed 81 mg PO DAILY 04/24/20 05/28/20 History release atorvastatin 40 mg tablet 40 mg PO BEDTIME 04/24/20 05/28/20 History bupropion HCl 150 mg tablet,12 hr 150 mg PO BID 04/24/20 05/28/20 History sustained-release cholecalciferol (vitamin D3) 50 50 mcg PO DAILY 04/24/20 05/28/20 History mcg (2,000 unit) tablet furosemide 20 mg tablet 20 mg PO QAM 04/24/20 05/28/20 History insulin degludec 100 unit/mL (3 12 unit SUBCUT QAM 04/24/20 05/28/20 History mL) subcutaneous pen lancets 33 gauge #100 ea 04/24/20 05/29/20 History lisinopril 10 mg tablet 10 mg PO DAILY 04/24/20 05/28/20 History metformin 1,000 mg tablet 1,000 mg PO BIDWMEAL 04/24/20 05/28/20 History omeprazole 20 mg capsule,delayed 20 mg PO DAILY 04/24/20 05/28/20 History release gabapentin 600 mg tablet 600 mg PO TID 05/03/20 05/28/20 History Flovent HFA 2 puff INHALATION BID 05/28/20 05/28/20 History insulin aspart U-100 [Novolog 0 unit SUBCUT QIDACHS 05/28/20 05/28/20 History Flexpen U-100 Insulin] methadone [Methadone Intensol] 95 mg DAILY 05/28/20 05/28/20 History nicotine 1 patch TRANSDERMAL DAILY 05/28/20 05/28/20 History nicotine (polacrilex) 2 mg BUCCAL Q2H PRN 05/28/20 05/28/20 History Physical Exam Vital Signs: Vital Signs: Last Vital Signs Temp 100.3 F 07/04/20 14:09 Pulse 97 07/04/20 15:32 Resp 24 H 07/04/20 15:32 BP 156/67 H 07/04/20 15:32 Pulse Ox 97 07/04/20 15:32 Body Mass Index 31.1 Oriented x3 with nonfocal neurologic exam Cardiac exam with no neck vein distension and good bilateral carotid upstrokes and normal S1 and normal S2 Chest without adventitious sounds Abdomen is soft good bowel sounds nondistended no organomegaly CT of the abdomen did not show an acute process Skin did not show any evidence of active set cellulitis and there was no acrocyanosis Results Labs CBC and Chem 7: 07/04/20 10:17 07/04/20 13:10 Labs: Laboratory Results - last 24 hr 07/04/20 07/04/20 07/04/20 10:16 10:17 10:17 MCV 84.8 MCH 26.7 L MCHC 31.5 RDW 13.8 Plt Count 387 MPV 11.1 Immature Gran % (Auto) 0.3 Neut % (Auto) 95.0 H Lymph % (Auto) 2.2 L [place] % (Auto) 2.3 Eos % (Auto) 0.1 Baso % (Auto) 0.1 Lymph # (Auto) 0.3 L [place] # (Auto) 0.3 Eos # (Auto) 0.0 Baso # (Auto) 0.0 Abs Immat Gran (auto) 0.05 H Absolute Neuts (auto) 14.1 H Absolute Nucleated RBC 0.000 Nucleated RBC % (auto) 0.0 Smear Tech's Comments VERIFIED PT 15.7 H INR 1.3 H VBG pH Anion Gap Estim Creat Clear Calc Estimated GFR POC Glucose Random Glucose Lactic Acid 2.3 H* Lactic Acid Fup @ 2Hr Calcium Magnesium Total Bilirubin Direct Bilirubin AST ALT Alkaline Phosphatase Troponin I High Sens Total Protein Albumin Lipase Beta-Hydroxybutyrate/Acetoacetate Acetone, Qual Coronavirus (PCR) Influenza Type A (PCR) Influenza Type B (PCR) RSV RNA Qual (PCR) 07/04/20 07/04/20 07/04/20 10:17 10:17 10:17 MCV MCH MCHC RDW Plt Count MPV Immature Gran % (Auto) Neut % (Auto) Lymph % (Auto) [place] % (Auto) Eos % (Auto) Baso % (Auto) Lymph # (Auto) [place] # (Auto) Eos # (Auto) Baso # (Auto) Abs Immat Gran (auto) Absolute Neuts (auto) Absolute Nucleated RBC Nucleated RBC % (auto) Smear Tech's Comments PT INR VBG pH Anion Gap 26 H Estim Creat Clear Calc 42.8 Estimated GFR 46 POC Glucose Random Glucose 517 H* Lactic Acid Lactic Acid Fup @ 2Hr Calcium 9.5 D Magnesium Total Bilirubin 0.6 Direct Bilirubin 0.4 AST 8 ALT 9 Alkaline Phosphatase 118 H Troponin I High Sens 6.6 Total Protein 8.3 H Albumin 3.2 L Lipase 10 Beta-Hydroxybutyrate/Acetoacetate Cancelled Acetone, Qual Small H Coronavirus (PCR) Influenza Type A (PCR) Influenza Type B (PCR) RSV RNA Qual (PCR) 07/04/20 07/04/20 07/04/20 10:24 10:53 13:03 MCV MCH MCHC RDW Plt Count MPV Immature Gran % (Auto) Neut % (Auto) Lymph % (Auto) [place] % (Auto) Eos % (Auto) Baso % (Auto) Lymph # (Auto) [place] # (Auto) Eos # (Auto) Baso # (Auto) Abs Immat Gran (auto) Absolute Neuts (auto) Absolute Nucleated RBC Nucleated RBC % (auto) Smear Tech's Comments PT INR VBG pH 7.30 L Anion Gap Estim Creat Clear Calc Estimated GFR POC Glucose 415 H* Random Glucose Lactic Acid Lactic Acid Fup @ 2Hr Calcium Magnesium Total Bilirubin Direct Bilirubin AST ALT Alkaline Phosphatase Troponin I High Sens Total Protein Albumin Lipase Beta-Hydroxybutyrate/Acetoacetate Acetone, Qual Coronavirus (PCR) POSITIVE A Influenza Type A (PCR) NEGATIVE Influenza Type B (PCR) NEGATIVE RSV RNA Qual (PCR) NEGATIVE 07/04/20 07/04/20 13:10 13:10 MCV MCH MCHC RDW Plt Count MPV Immature Gran % (Auto) Neut % (Auto) Lymph % (Auto) [place] % (Auto) Eos % (Auto) Baso % (Auto) Lymph # (Auto) [place] # (Auto) Eos # (Auto) Baso # (Auto) Abs Immat Gran (auto) Absolute Neuts (auto) Absolute Nucleated RBC Nucleated RBC % (auto) Smear Tech's Comments PT INR VBG pH Anion Gap 24 H Estim Creat Clear Calc 53.0 Estimated GFR 59 POC Glucose Random Glucose 446 H* Lactic Acid Lactic Acid Fup @ 2Hr 2.1 H* Calcium 8.5 D Magnesium 1.7 Total Bilirubin Direct Bilirubin AST ALT Alkaline Phosphatase Troponin I High Sens Total Protein Albumin Lipase Beta-Hydroxybutyrate/Acetoacetate Acetone, Qual Coronavirus (PCR) Influenza Type A (PCR) Influenza Type B (PCR) RSV RNA Qual (PCR) Imaging Radiologist's Impressions: Impressions Abdomen/Pelvis CT 07/04/20 09:56 IMPRESSION: No evidence of PE or aortic aneurysm. Suspect mild haziness in the right middle lobe and lingula. Rest of the lungs are well-expanded and clear. No abnormal mediastinal or hilar lymph nodes or mass seen. No acute intra-abdominal process seen. Mild constipation. Scattered sigmoid and descending colon diverticulosis without diverticulitis. Chest X-Ray 07/04/20 09:56 IMPRESSION: No acute cardiopulmonary process. Chest CT 07/04/20 14:04 IMPRESSION: No evidence of PE or aortic aneurysm. Suspect mild haziness in the right middle lobe and lingula. Rest of the lungs are well-expanded and clear. No abnormal mediastinal or hilar lymph nodes or mass seen. No acute intra-abdominal process seen. Mild constipation. Scattered sigmoid and descending colon diverticulosis without diverticulitis. Assessment and Plan (1) COVID-19: Status: Acute (2) DKA (diabetic ketoacidoses): Status: Acute (3) PAD (peripheral artery disease): Status: Acute (4) Depression: Status: Acute (5) Diabetes mellitus: Status: Acute (6) Osteomyelitis: Qualifiers: Laterality: right Osteomyelitis location: foot Osteomyelitis type: chronic, with draining sinus Qualified Code(s): M86.471 - Chronic osteomyelitis with draining sinus, right ankle and foot Problem details: This is acute exacerbation of osteomyelitis right foot She has poorly fitting footwear as source for discomfort She has chronic osteomyelitis and organisms have included MRSA,proteus,Group A strep and Klebsiella. I had seen her last in office in April and her foot although not healing over did not have purulence but open area and foot today actually looks similar She has received IV antibiotics earlier in year She sees Wound Clinic and is seeing Vascular as well Status: Acute (7) Pulmonary nodule: Status: Chronic (8) Tobacco dependence: Status: Acute (9) COPD (chronic obstructive pulmonary disease): Qualifiers: COPD type: chronic bronchitis Chronic bronchitis type: mixed simple and mucopurulent Qualified Code(s): J41.8 - Mixed simple and mucopurulent chronic bronchitis Status: Acute (10) Diabetic foot infection: Status: Acute Plan will be to continue empirically Zosyn and vancomycin for presumed osteomyelitis with bone scan pending and will continue to monitor electrolytes with ongoing of fluid and insulin drip and follow lactic acid as well and monitor oxygen saturation for any sign of progression of the COVID-19 disease
[2020-07-04 16:13] LABS: Amphetamine Screen Urine Not Detected (Not Detect); Barbiturates, Urine Not Detected (Not Detect); Benzodiazepines Screen Urine Not Detected (Not Detect); Cannabinoid Screen Urine Not Detected (Not Detect); Cocaine Screen Urine POSITIVE (Not Detect); Opiate Screen Urine POSITIVE (Not Detect); Phencyclidine Screen Urine Not Detected (Not Detect)
[2020-07-04] MEDS: cefEPime HCl 1 GM in 0.9 % Sodium Chloride 50 ML IV (16:53)
[2020-07-04] MEDS: vancomycin HCL 750 MG in 0.9 % Sodium Chloride 250 ML 265 MG IV (16:56)
--- NOTE | 2020-07-04 17:41 | PC.NURSE ---
Pt presented to the ED with c/o weakness and elevated blood sugar, reportedly in the 600 range. Upon arrival her blood sugar was 435. Dr Kenny saw pt and provided orders. Blood work, urine, and covid swab sent. Pt is covid positive. Plan is to admit to the ICU. Pt currently on an insulin drip that has been titrated to 2.5units per hour. Currently awaiting call back from [facility].
[2020-07-04 18:39] LABS: Glucose, Whole Blood 235 mg/dL (60-115)
[2020-07-04 18:39] LABS: Glucose, Whole Blood 216 mg/dL (60-115)
--- NOTE | 2020-07-04 20:19 | PC.NURSE ---
BG checked 164. pt letheragic but responds to verbal stimului.
[2020-07-04 20:42] LABS: MANUAL DIFF FLAG NO
[2020-07-04 20:44] LABS: Basophils Percent Auto 0.1 % (0-2); Eosinophils Percent Auto 0.1 % (0-4); Hematocrit 33.1 % (37-47); Hemoglobin 10.7 g/dl (12.0-16.0); Imm Gran Abs Auto 0.05 X10*3/uL (0.00-0.03); Imm Gran Pct Auto 0.4 % (0.0-0.4); Lymphocytes Percent Auto 8.1 % (20-40); Mean Corpuscular HGB Conc 32.3 g/dl (31.0-35.0); Mean Corpuscular Hemoglobin 27.2 pg (27.0-33.0); Mean Corpuscular Volume 84.2 fL (80-98); Mean Platelet Volume 10.5 fL (9.4-12.3); Monocytes Absolute Auto 0.4 X10*3/uL (0.1-1.2); Neutrophils Absolute Auto 10.5 X10*3/uL (2.0-8.3); Neutrophils Percent Auto 88.3 % (45-73); Platelet Count 263 X10*3/uL (160-400); Red Blood Count 3.93 X10*6/uL (4.20-5.50); Red Cell Distribution Width 13.8 % (11.0-16.0); White Blood Count 11.9 X10*3/uL (4.8-10.8)
--- NOTE | 2020-07-04 20:59 | PC.NURSE ---
Patient blood sugar check and was 184 and per titration schedule MD to be consulted about switching to subcutaneous insulin. Patient admitted to ICU
[2020-07-04] MEDS: Famotidine/PF 20 MG/2 ML VIAL IVPUSH (21:02)
[2020-07-04 21:16] LABS: ~Lactic Acid-LAB USE ONLY 1.4 mmol/L (0.5-2.0)
[2020-07-04 21:22] LABS: Phosphorus 1.5 mg/dL (2.7-4.5)
[2020-07-04 21:47] LABS: Glucose, Whole Blood 164 mg/dL (60-115)
[2020-07-04 21:55] LABS: Anion Gap 12 (12-20); Blood Urea Nitrogen 17 mg/dL (9-16); Carbon Dioxide 23 mmol/L (22-29); Chloride 103 mmol/L (96-108); Creatinine Clr Calc Pharmacy 79.6; Estimated Glomerular Filt Rate > 60; Glucose Random 160 mg/dL (60-115); Magnesium 1.5 mg/dL (1.6-2.6); Potassium 3.2 mmol/l (3.3-5.1); Sodium 135 mmol/L (135-145)
[2020-07-04 22:34] LABS: Glucose, Whole Blood 140 mg/dL (60-115)
[2020-07-04 22:52] LABS: HCO3 VBG 25 mmol/L; PCO2 VBG 44 mmhg; PO2 VBG 22 mmhg; pH VBG 7.38 (7.32-7.43)
[2020-07-04] MEDS: Potassium Chloride Packet 20 MEQ PACKET PO (22:52)
[2020-07-04] MEDS: Piperacillin Sodium/Tazobactam 3.375 GM in 0.9 % Sodium Chloride 50 ML IV (22:52)
[2020-07-04 22:53] LABS: Base Excess VBG -0.2 mmol/L; Blood Gas Serial # 5396; Oxygen Saturation VBG 38.5 %
[2020-07-04] MEDS: Ketorolac Tromethamine 15 MG/ML VIAL IVPUSH (22:53)
[2020-07-04] MEDS: Gabapentin 600 MG TABLET PO (22:53)
[2020-07-04] MEDS: Insulin Glargine,Hum.rec.anlog 100 UNIT/ML 10 ML VIAL 15 UNIT SUBCUT (23:00)
[2020-07-04] MEDS: lisinopriL 10 MG TABLET PO (23:21)
[2020-07-04] MEDS: Furosemide 20 MG TABLET PO (23:21)
[2020-07-05] VITALS (7 sets, daily range): BP systolic 148–168; BP diastolic 63–74; PULSE 68–99; RESP 16–30; TEMP 37.8–38.1; O2SAT 93–97; BMI 28.7
[2020-07-05 01:33] LABS: Anion Gap 15 (12-20); Blood Urea Nitrogen 15 mg/dL (9-16); Calcium 7.7 mg/dL (8.4-10.2); Carbon Dioxide 20 mmol/L (22-29); Chloride 99 mmol/L (96-108); Creatinine Clr Calc Pharmacy 83.6; Estimated Glomerular Filt Rate > 60; Glucose Random 215 mg/dL (60-115); Potassium 3.2 mmol/l (3.3-5.1); Sodium 131 mmol/L (135-145)
[2020-07-05] MEDS: Insulin Lispro 100 UNIT/ML 3 ML VIAL SUBCUT ×5 (02:13→20:33)
[2020-07-05 05:28] LABS: MANUAL DIFF FLAG NO
[2020-07-05 05:30] LABS: Basophils Percent Auto 0.1 % (0-2); Hematocrit 31.5 % (37-47); Hemoglobin 10.1 g/dl (12.0-16.0); Imm Gran Abs Auto 0.04 X10*3/uL (0.00-0.03); Imm Gran Pct Auto 0.4 % (0.0-0.4); Lymphocytes Absolute Auto 0.7 X10*3/uL (1.2-4.9); Lymphocytes Percent Auto 7.7 % (20-40); Mean Corpuscular HGB Conc 32.1 g/dl (31.0-35.0); Mean Corpuscular Hemoglobin 26.8 pg (27.0-33.0); Mean Corpuscular Volume 83.6 fL (80-98); Mean Platelet Volume 10.8 fL (9.4-12.3); Monocytes Absolute Auto 0.8 X10*3/uL (0.1-1.2); Neutrophils Percent Auto 83.8 % (45-73); Platelet Count 245 X10*3/uL (160-400); Red Blood Count 3.77 X10*6/uL (4.20-5.50); Red Cell Distribution Width 13.8 % (11.0-16.0); White Blood Count 9.6 X10*3/uL (4.8-10.8)
[2020-07-05] MEDS: Piperacillin Sodium/Tazobactam 3.375 GM in 0.9 % Sodium Chloride 50 ML IV ×4 (05:42→20:32)
[2020-07-05] MEDS: vancomycin HCL 750 MG in 0.9 % Sodium Chloride 250 ML 250 MG IV (05:42)
[2020-07-05 05:50] LABS: Base Excess VBG 0.5 mmol/L; HCO3 VBG 22 mmol/L; PCO2 VBG 25 mmhg; PO2 VBG 43 mmhg; pH VBG 7.55 (7.32-7.43)
[2020-07-05 05:56] LABS: INTERNATIONAL NORM RATIO 1.4 (0.9-1.1); Prothrombin Time 17.2 SEC (10.8-13.0)
[2020-07-05 05:59] LABS: Partial Thromboplastin Time 28.9 SEC (24.1-38.0)
[2020-07-05 06:02] LABS: Anion Gap 14 (12-20); Blood Urea Nitrogen 14 mg/dL (9-16); Calcium 7.7 mg/dL (8.4-10.2); Carbon Dioxide 20 mmol/L (22-29); Chloride 103 mmol/L (96-108); Creatinine Clr Calc Pharmacy 80.8; Estimated Glomerular Filt Rate > 60; Glucose Random 187 mg/dL (60-115); Magnesium 1.5 mg/dL (1.6-2.6); Phosphorus 1.3 mg/dL (2.7-4.5); Potassium 3.1 mmol/l (3.3-5.1); Sodium 134 mmol/L (135-145)
--- NOTE | 2020-07-05 06:55 | PM.CCN ---
Critical Care Event Note Summary Code activated: No Narrative: This case had a high probability of a clinically significant, sudden, or life threatening deterioration of this patient's condition which required my full and direct attention, intervention and personal management. Note well the results of the urine toxicology screen This is a methadone patient apparently took illicit opiate probably heroin somewhere be just before admission so this has to do with the timing of her next dose of methadone and also of course cocaine as well so when you check on the methadone dose with the clinic possibly question about timing of administration Also note well the positive blood cultures in relation to my original concern which was 4 the foot infection and possible osteomyelitis as an ongoing source There is a pending bone scan of that right foot and it to confirm and hopefully we done this morning but probably get Infectious Disease involved for this polymicrobial infection Critical Care Time (minutes): 15
[2020-07-05 07:25] LABS: Glucose, Whole Blood 406 mg/dL (60-115)
--- NOTE | 2020-07-05 07:44 | PC.NURSE ---
Patient scheduled for bone scan at 0800 - per [facility] protocol patient is okay to be off monitor for testing. Will continue to monitor.
[2020-07-05 07:51] LABS: Glucose, Whole Blood 185 mg/dL (60-115)
--- NOTE | 2020-07-05 08:15 | PC.NURSE ---
Shift eval 7p-7a: Admitted to ICU 262 @ approx 2140, +covid & DKA. Repeat labs pending upon admission to ICU. When lab results back - Potassium level 3.2 - started IV fluids late - NS w/ 20k, plus ordered extra 20MEQ by Brooke FERGUSON. Anion gap closed - Ordered to keep insulin drip off, which was stopped in ER and start lantus and cover with sliding scale. POC 140 at that time. Plan to transfer [place] [facility] [place] repeat labs at 1am. Repeat labs at 1am still stable - Dr Morillo accepted patient - plan of care changed to [facility] level. Covered lab serum glucose with unscheduled sliding scale insulin per Brooke FERGUSON. Upon admission patient c/o chronic back pain - Brooke FERGUSON made aware - ordered home dose of gabapentin & one time dose of toradol - given to patient. BP elevated upon admission as well - >200 SBP (see VS). Brooke FERGUSON made aware - PO lasix & Lisinopril given. Medicated w/ good effect - BP down to 140's-160's SBP. Right foot lateral diabetic ulcer noted - dressed, but still draining purulent discharge. Plan for bone scan r/t hx osteomyelitis. Edema worse on right lower extremity. Left eye noted to be cloudy w/ small amount discharge.
[2020-07-05] MEDS: Famotidine/PF 20 MG/2 ML VIAL IVPUSH ×2 (08:40→20:33)
[2020-07-05] MEDS: Gabapentin 600 MG TABLET PO ×3 (08:40→20:33)
[2020-07-05] MEDS: Potassium Chloride Packet 20 MEQ PACKET PO (09:36)
[2020-07-05 11:26] LABS: Glucose, Whole Blood 184 mg/dL (60-115)
--- NOTE | 2020-07-05 12:45 | MHC.CM.PN ---
Per MD rounds, pt is Covid positive, but asymptomatic. Admitted with DKA. Pt was seen at [facility] 1 month ago for foot ulcer, and TX with 2 weeks of IV antibiotics. Positive B.C. Dr. Villafana concerned about osteomyelitis. Will have bone scan today. Hx. substance misuse and is on methodone. 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 Referral made to [facility] to follow pending bone scan and need for group home IV therapy. Will follow for d/c needs
--- NOTE | 2020-07-05 12:53 | MHC.CM.PN ---
Bone scan highly suggestive of osteomyelitis. Will place referral and follow for d/c needs
--- NOTE | 2020-07-05 13:45 | P.CDIC_ITS ---
CDI Concurrent Query Service Date: 07/07/20 Documentation Clarification: Please clarify if you are treating a proba ble/suspected/likely or confirmed: Viral Sepsis, present on admission Sepsis, present on admission Provider Response: Other Other Diagnosis: Patient did not have viral sepsis she had as we some iced on upon admission an incompletely treated osteomyelitis of the right foot which was subsequently proven as the precipitating reason for diabetic ketoacidosis PLEASE DO NOT DELETE/MODIFY EXISTING CONTENT Additional information is needed in order to code to the highest accuracy and appropriate Severity of Illness (SOI). Please clarify the information noted below in your progress notes and discharge summary. Risk Factors/Clinical Indicators/Treatments 60 year old female admitted with positive COVID, DKA, PAD, Chronic Osteomyelitis right foot with draining sinus, Acute COPD Acute Diabetic foot infection. WBC 14.8 LA 2.3 T100.3, P 105, R24, BP 205/91, SAT 95% Bone scan pending Blood culture 2/2 gram positive cocci in chains CDS: Connie Gray RN Contact Number: [phone] Please Review the information above and exercise your independent professional judgment in responding to the query. If you concur, pleas document in the PROGRESS NOTES and DISCHARGE SUMMARY. If you do not agree with the query, please document in the query above. THIS QUERY IS PART OF THE PERMANENT MEDICAL RECORD
--- NOTE | 2020-07-05 13:54 | MHC.CM.PN ---
[facility] will follow till they have a bed.
[2020-07-05] MEDS: Enoxaparin Sodium 40 MG/0.4 ML SYRINGE SUBCUT (15:53)
[2020-07-05] MEDS: vancomycin HCL 750 MG in 0.9 % Sodium Chloride 250 ML 265 MG IV (15:53)
[2020-07-05 16:14] LABS: Glucose, Whole Blood 204 mg/dL (60-115)
[2020-07-05 20:13] LABS: Glucose, Whole Blood 170 mg/dL (60-115)
[2020-07-05] MEDS: lisinopriL 10 MG TABLET PO (20:33)
[2020-07-05] MEDS: Insulin Glargine,Hum.rec.anlog 100 UNIT/ML 10 ML VIAL 15 UNIT SUBCUT (20:33)
[2020-07-06] VITALS (8 sets, daily range): BP systolic 107–171; BP diastolic 53–88; PULSE 63–90; RESP 16–22; TEMP 36.3–37.8; O2SAT 96–98
--- NOTE | 2020-07-06 01:27 | PC.NURSE ---
[facility] notified of @ 0120. Declined by [facility], case # [id number].
[2020-07-06] MEDS: Piperacillin Sodium/Tazobactam 3.375 GM in 0.9 % Sodium Chloride 50 ML IV ×4 (03:17→20:18)
[2020-07-06 03:33] LABS: Vancomycin Trough 7.3 mcg/mL (10.0-20.0)
--- NOTE | 2020-07-06 04:07 | PC.NURSE ---
Vancomycin trough 7.3, reported to hospitalist. Dose increased.
[2020-07-06] MEDS: vancomycin HCL 1,000 MG in 0.9 % Sodium Chloride 250 ML 270 MG IV (04:12)
[2020-07-06 07:56] LABS: Glucose, Whole Blood 283 mg/dL (60-115)
[2020-07-06] MEDS: Insulin Lispro 100 UNIT/ML 3 ML VIAL SUBCUT ×4 (08:39→20:19)
[2020-07-06] MEDS: Famotidine/PF 20 MG/2 ML VIAL IVPUSH ×2 (08:39→20:18)
[2020-07-06] MEDS: Gabapentin 600 MG TABLET PO ×3 (08:40→20:20)
[2020-07-06 09:45] LABS: Anion Gap 10 (12-20); Blood Urea Nitrogen 7 mg/dL (9-16); Calcium 7.5 mg/dL (8.4-10.2); Carbon Dioxide 28 mmol/L (22-29); Chloride 98 mmol/L (96-108); Creatinine Clr Calc Pharmacy 85.7; Estimated Glomerular Filt Rate > 60; Glucose Random 271 mg/dL (60-115); Potassium 3.1 mmol/l (3.3-5.1); Sodium 133 mmol/L (135-145)
[2020-07-06 12:04] LABS: Glucose, Whole Blood 223 mg/dL (60-115)
--- NOTE | 2020-07-06 13:54 | P.PNIM_ITS ---
Subjective Subjective Date of Service: 07/06/20 Interval History: Patient admitted for DKA, patient treated with IV fluids insulin blood sugars improved patient transferred to hospitalist service, this a.m. the patient complaining of right foot discomfort. Review of Systems General no headache no dizziness no fever chills. CVS no chest pain, no palpitation. Respiratory no cough no sputum production no respiratory distress. Gastrointestinal no nausea no vomiting, no abdominal pain Physical Exam Vital Signs: Vital Signs: Last Vital Signs Temp 98.3 F 07/06/20 12:00 Pulse 63 07/06/20 12:00 Resp 16 07/06/20 12:00 BP 107/53 L 07/06/20 12:00 Pulse Ox 97 07/06/20 12:00 Body Mass Index 28.7 General patient resting comfortably in no acute distress. Neck is supple no JVD. CVS regular rate rhythm, Respiratory lungs clear to auscultation, no respiratory distressi. Gastrointestinal abdomen soft, nontender, bowel sounds audible, no no guarding , no rigidity. Extremities no clubbing cyanosis or edema. Neuro nonfocal patient moving all 4 extremity speech clear. Skin no rash Objective Data Current Medications Generic Name Dose Route Start Last Admin Trade Name Freq PRN Reason Stop Dose Admin Enoxaparin Sodium 40 mg 07/04/20 15:00 07/05/20 15:53 Enoxaparin Sodium 40 Mg/0.4 Ml Syringe SUBCUT 40 mg Q24H PRECIOUS Administration Famotidine 20 mg 07/04/20 21:00 07/06/20 08:39 Famotidine/Pf 20 Mg/2 Ml Vial IVPUSH 20 mg BID PRECIOUS Administration Gabapentin 600 mg 07/04/20 22:40 07/06/20 08:40 Gabapentin 600 Mg Tablet PO 600 mg TID PRECIOUS Administration Potassium Chloride/Sodium Chloride 20 meq in 1,000 mls @ 100 mls/hr 07/04/20 12:30 07/06/20 11:41 IVCONT Not Given .Q10H PRECIOUS Piperacillin Sod/Tazobactam 50 mls @ 100 mls/hr 07/04/20 22:00 07/06/20 09:14 Sod 3.375 gm/ Sodium Chloride IV Infused Q6H PRECIOUS Infusion Vancomycin HCl 750 mg/ 275 mls @ 183.333 mls/hr 07/06/20 16:00 Vancomycin HCl 500 mg/ Sodium IV Chloride Q12H PRECIOUS Insulin Glargine 15 unit 07/04/20 23:00 07/05/20 20:33 Insulin Glargine,Hum.Rec.Anlog 100 Unit/Ml 10 Ml Vial SUBCUT 15 unit BEDTIME PRECIOUS Administration Insulin Human Lispro 0 unit 07/05/20 00:00 07/06/20 11:59 Insulin Lispro 100 Unit/Ml 3 Ml Vial SUBCUT 4 unit QIDACHS [facility] Administration Protocol Lisinopril 10 mg 07/04/20 23:10 07/05/20 20:33 Lisinopril 10 Mg Tablet PO 10 mg BEDTIME PRECIOUS Administration Protocol Methadone HCl 90 mg 07/06/20 09:00 07/06/20 09:43 Methadone Hcl 1 Mg/0.1 Ml Oral.Conc PO 90 mg DAILY [facility] Administration Pharmacy Consult 1 each 07/04/20 14:30 Consult Rx Vancomycin Dosing MISCELLANE DAILY PRN Consult order Labs CBC & Chem 7: 07/05/20 05:13 07/06/20 08:48 Microbiology Microbiology Results: Microbiology 07/04/20 10:16 Blood - Venous Blood Culture - Preliminary Strep agalactiae (Grp B) 07/04/20 10:26 Blood - Venous Blood Culture - Preliminary Strep agalactiae (Grp B) Assessment and Plan (1) COVID-19: Status: Acute (2) DKA (diabetic ketoacidoses): Status: Acute (3) PAD (peripheral artery disease): Status: Acute (4) Osteomyelitis: Status: Acute (5) Diabetic foot infection: Status: Acute (6) COPD (chronic obstructive pulmonary disease): Status: Acute Assessment and Plan: 60 yo F with a PMH of DM who presented to the hospital with abdominal pain nausea and vomiting and diagnosed to have DKA and COVID infection DKA resolved Blood sugar around 200, on Lantus 15 units bedtime and insulin sliding scale will adjust dose of Lantus for better blood sugar control Sepsis present on admission due to Diabetic Foot infection/right foot osteomy elitis/Gram-positive bacteremia Patient with persistent right foot wound and significant drainage no fever, WBC normalized, blood cultures x2 grew Gram-positive cocci/strep agalactie group B Patient being followed by wound clinic for right foot wound, previously had wound VAC and evaluated by Dr. Lemus and found to have good AURELIANO Bone scan showed right proximal 3rd 4th and 5th metatarsal osteomyelitis patient on IV vancomcyin/zosyn Will obtain ID consultation for duration of antibiotic patient recently was treated with of IV vancomycin and was discharged on 2 weeks of tetracycline, will follow Vanco trough and renal function close Hypokalemia will replace and follow COVID 19 positive, no hypoxia continue supportive care HTN Continue lisinopril 10 mg daily BP stable Chronic opiate dependence Resume methadone PAD Will resume Lipitor, and aspirin Mood continue her home meds COPD no acute exacerbation continue home inhalers Full Code DVT pptx, lovenox
[2020-07-06] MEDS: Enoxaparin Sodium 40 MG/0.4 ML SYRINGE SUBCUT (14:36)
[2020-07-06] MEDS: Potassium Chloride ER 20 MEQ TAB.ER.PRT 40 MEQ PO (14:37)
[2020-07-06 17:09] LABS: Glucose, Whole Blood 171 mg/dL (60-115)
[2020-07-06 20:12] LABS: Glucose, Whole Blood 205 mg/dL (60-115)
[2020-07-06] MEDS: Insulin Glargine,Hum.rec.anlog 100 UNIT/ML 10 ML VIAL 20 UNIT SUBCUT (20:19)
[2020-07-06] MEDS: Atorvastatin Calcium 40 MG TABLET PO (20:20)
[2020-07-06] MEDS: lisinopriL 10 MG TABLET PO (20:20)
[2020-07-06] MEDS: Fluticasone Propionate 100 MCG BLST.W.DEV 2 PUFF INHALE (21:32)
[2020-07-06] MEDS: Acetaminophen 325 MG TABLET 650 MG PO (21:41)
[2020-07-06 22:05] LABS: Lactic Acid 2.4 mmol/L (0.5-2.0)
--- NOTE | 2020-07-06 22:16 | PM.EVENT ---
Event Note Date of Service: 07/06/20 Event Note: Patient had a temperature of a 100.1?. Cultured, basic lab sense, lactic acid found to be elevated at 2.4. Patient already on vanc and Zosyn. Will start him on IV fluids.
[2020-07-06] MEDS: 0.9 % Sodium Chloride 1,000 ML 100 ML IVCONT (22:28)
[2020-07-06 22:37] LABS: Basophils Percent Auto 0.1 % (0-2); Hematocrit 26.5 % (37-47); Hemoglobin 8.5 g/dl (12.0-16.0); Imm Gran Abs Auto 0.09 X10*3/uL (0.00-0.03); Imm Gran Pct Auto 1.1 % (0.0-0.4); Lymphocytes Absolute Auto 1.2 X10*3/uL (1.2-4.9); Lymphocytes Percent Auto 14.1 % (20-40); MANUAL DIFF FLAG NO; Mean Corpuscular HGB Conc 32.1 g/dl (31.0-35.0); Mean Corpuscular Hemoglobin 26.9 pg (27.0-33.0); Mean Corpuscular Volume 83.9 fL (80-98); Mean Platelet Volume 11.3 fL (9.4-12.3); Monocytes Absolute Auto 0.8 X10*3/uL (0.1-1.2); Monocytes Percent Auto 9.2 % (2-11); Neutrophils Absolute Auto 6.5 X10*3/uL (2.0-8.3); Neutrophils Percent Auto 75.5 % (45-73); Platelet Count 223 X10*3/uL (160-400); Red Blood Count 3.16 X10*6/uL (4.20-5.50); Red Cell Distribution Width 13.9 % (11.0-16.0); White Blood Count 8.6 X10*3/uL (4.8-10.8)
[2020-07-06 23:40] LABS: Reflex Lactate? Lactic Acid Added
[2020-07-07] VITALS (8 sets, daily range): BP systolic 147–187; BP diastolic 59–79; PULSE 71–81; RESP 16–20; TEMP 37.1–37.5; O2SAT 96–98
[2020-07-07 00:49] LABS: ~Lactic Acid-LAB USE ONLY 1.9 mmol/L (0.5-2.0)
[2020-07-07] MEDS: Piperacillin Sodium/Tazobactam 3.375 GM in 0.9 % Sodium Chloride 50 ML IV ×4 (05:23→20:57)
[2020-07-07] MEDS: 0.9 % Sodium Chloride 1,000 ML 100 ML IVCONT (06:05)
[2020-07-07 07:34] LABS: Anion Gap 12 (12-20); Blood Urea Nitrogen 7 mg/dL (9-16); Calcium 7.5 mg/dL (8.4-10.2); Carbon Dioxide 27 mmol/L (22-29); Chloride 100 mmol/L (96-108); Creatinine Clr Calc Pharmacy 80.1; Estimated Glomerular Filt Rate > 60; Glucose Random 265 mg/dL (60-115); Potassium 3.5 mmol/l (3.3-5.1); Sodium 135 mmol/L (135-145)
[2020-07-07 07:42] LABS: Glucose, Whole Blood 229 mg/dL (60-115)
[2020-07-07] MEDS: Famotidine/PF 20 MG/2 ML VIAL IVPUSH (08:36)
[2020-07-07] MEDS: Insulin Lispro 100 UNIT/ML 3 ML VIAL SUBCUT ×4 (08:37→20:57)
[2020-07-07] MEDS: Gabapentin 600 MG TABLET PO ×3 (08:37→20:57)
[2020-07-07] MEDS: Cholecalciferol (Vitamin D3) 25 MCG TABLET 50 MCG PO (08:37)
[2020-07-07] MEDS: Aspirin Enteric Coated 81 MG TABLET.DR PO (08:37)
[2020-07-07] MEDS: buPROPion HCl XL 300 MG TAB.ER.24H PO (08:37)
[2020-07-07] MEDS: Fluticasone Propionate 100 MCG BLST.W.DEV 2 PUFF INHALE ×2 (09:38→20:05)
[2020-07-07 11:19] LABS: Glucose, Whole Blood 216 mg/dL (60-115)
--- NOTE | 2020-07-07 13:30 | P.PNIM_ITS ---
Subjective Subjective Date of Service: 07/07/20 Interval History: Patient very upset this morning her daughter committed suicide, no acute issues overnight, patient complaining of mild right foot discomfort, no fever, no chills. Review of Systems General no headache no dizziness no fever chills. CVS no chest pain, no palpitation. Respiratory no cough no sputum production no respiratory distress. Gastrointestinal no nausea no vomiting, no abdominal pain Physical Exam Vital Signs: Vital Signs: Last Vital Signs Temp 98.7 F 07/07/20 11:54 Pulse 71 07/07/20 11:54 Resp 20 07/07/20 11:54 BP 156/70 H 07/07/20 11:54 Pulse Ox 98 07/07/20 11:54 Body Mass Index 28.7 Const: Other: General patient sobbing due to of daughter. Neck supple no JVD. CVS regular rate rhythm, Respiratory lungs clear to auscultation, no respiratory distress Gastrointestinal abdomen soft, nontender, bowel sounds audible,no rigidity. Extremities right foot and dressing in place Neuro nonfocal . Skin no rash Objective Data Current Medications Generic Name Dose Route Start Last Admin Trade Name Freq PRN Reason Stop Dose Admin Acetaminophen 650 mg 07/06/20 20:37 07/06/20 21:41 Acetaminophen 325 Mg Tablet PO 650 mg Q8H PRN Administration Fever Albuterol Sulfate 2 puff 07/06/20 14:18 Albuterol Sulfate 90 Mcg 8 Gm Inhaler INHALE Q4H PRN Respiratory Distress Aspirin 81 mg 07/07/20 09:00 07/07/20 08:37 Aspirin Enteric Coated 81 Mg Tablet. PO 81 mg DAILY PRECIOUS Administration Atorvastatin Calcium 40 mg 07/06/20 21:00 07/06/20 20:20 Atorvastatin Calcium 40 Mg Tablet PO 40 mg BEDTIME PRECIOUS Administration Bupropion HCl 300 mg 07/07/20 09:00 07/07/20 08:37 Bupropion Hcl Xl 300 Mg Tab.Er.24h PO 300 mg DAILY PRECIOUS Administration Enoxaparin Sodium 40 mg 07/04/20 15:00 07/06/20 14:36 Enoxaparin Sodium 40 Mg/0.4 Ml Syringe SUBCUT 40 mg Q24H PRECIOUS Administration Famotidine 20 mg 07/04/20 21:00 07/07/20 08:36 Famotidine/Pf 20 Mg/2 Ml Vial IVPUSH 20 mg BID PRECIOUS Administration Fluticasone Propionate 2 puff 07/06/20 20:00 07/07/20 09:38 Fluticasone Propionate 100 Mcg Blst.W.Dev INHALE 2 puff RBID PRECIOUS Administration Gabapentin 600 mg 07/04/20 22:40 07/07/20 08:37 Gabapentin 600 Mg Tablet PO 600 mg TID PRECIOUS Administration Piperacillin Sod/Tazobactam 50 mls @ 100 mls/hr 07/04/20 22:00 07/07/20 12:05 Sod 3.375 gm/ Sodium Chloride IV Infused Q6H PRECIOUS Infusion Vancomycin HCl 750 mg/ 275 mls @ 183.333 mls/hr 07/06/20 16:00 07/07/20 08:38 Vancomycin HCl 500 mg/ Sodium IV Infused Chloride Q12H PRECIOUS Infusion Sodium Chloride 1,000 mls @ 100 mls/hr 07/06/20 22:15 07/07/20 08:38 Ns IVCONT Not Given .Q10H PRECIOUS Insulin Glargine 20 unit 07/06/20 21:00 07/06/20 20:19 Insulin Glargine,Hum.Rec.Anlog 100 Unit/Ml 10 Ml Vial SUBCUT 20 unit BEDTIME [facility] Administration Insulin Human Lispro 0 unit 07/05/20 00:00 07/07/20 11:22 Insulin Lispro 100 Unit/Ml 3 Ml Vial SUBCUT 4 unit QIDACHS [facility] Administration Protocol Lisinopril 10 mg 07/04/20 23:10 07/06/20 20:20 Lisinopril 10 Mg Tablet PO 10 mg BEDTIME [facility] Administration Protocol Methadone HCl 90 mg 07/06/20 09:00 07/07/20 08:36 Methadone Hcl 1 Mg/0.1 Ml Oral.Conc PO 90 mg DAILY [facility] Administration Pharmacy Consult 1 each 07/04/20 14:30 Consult Rx Vancomycin Dosing MISCELLANE DAILY PRN Consult order Vitamin D 50 mcg 07/07/20 09:00 07/07/20 08:37 Cholecalciferol (Vitamin D3) 25 Mcg Tablet PO 50 mcg DAILY [facility] Administration Labs CBC & Chem 7: 07/06/20 22:27 07/07/20 06:19 Microbiology Microbiology Results: Microbiology 07/04/20 10:26 Blood - Venous Blood Culture - Final Strep agalactiae (Grp B) 07/04/20 10:16 Blood - Venous Blood Culture - Final Strep agalactiae (Grp B) Assessment and Plan (1) COVID-19: Status: Acute Assessment and Plan: 60 yo F with a PMH of DM who presented to the hospital with abdominal pain na usea and vomiting and diagnosed to have DKA and COVID infection DKA resolved Blood sugar around 200, on Lantus 15 units bedtime and insulin sliding scale will adjust dose of Lantus for better blood sugar control Sepsis present on admission due to Diabetic Foot infection/right foot osteomyelitis/Gram-positive bacteremia Patient with persistent right foot wound and significant drainage no fever, WBC normalized, blood cultures x2 grew strep agalactie group B Patient being followed by wound clinic for right foot wound, previously had wound VAC and evaluated by Dr. Lemus and found to have good AURELIANO Bone scan showed right proximal 3rd 4th and 5th metatarsal osteomyelitis patient on IV vancomcyin/zosyn await ID input for duration and choice of antibiotic patient recently was treated with of IV vancomycin and was discharged on 2 weeks of tetracycline, Vanco trough 7.3 will discuss Vanco dosage with pharmacy, follow renal function and Vanco trough closely Will DC IV Pepcid and changed to Prilosec home dose Chronic anemia normal MCV no overt bleeding noted, question dilutional follow hematocrit if drop will transfuse, check stool guaiac and iron studies. Hypokalemia replaced and resolved. Tobacco use disorder patient smokes 1 pack in 2-3 days, requesting for nicotine patch counseling done will place on nicotine 14 mg daily COVID 19 positive, no hypoxia, continue supportive care HTN Continue lisinopril 10 mg daily BP stable Chronic opiate dependence Resume methadone PAD Will resume Lipitor, and aspirin Mood continue home meds COPD no acute exacerbation, continue home inhalers Full Code DVT pptx, lovenox (2) DKA (diabetic ketoacidoses): Status: Acute (3) PAD (peripheral artery disease): Status: Acute (4) Osteomyelitis: Status: Acute (5) Diabetic foot infection: Status: Acute (6) COPD (chronic obstructive pulmonary disease): Status: Acute
[2020-07-07] MEDS: Nicotine 14 MG PATCH.TD24 TRANSDERMA (14:28)
[2020-07-07] MEDS: Enoxaparin Sodium 40 MG/0.4 ML SYRINGE SUBCUT (14:28)
[2020-07-07 15:56] LABS: Vancomycin Trough 15.5 mcg/mL (10.0-20.0)
[2020-07-07 16:17] LABS: Glucose, Whole Blood 287 mg/dL (60-115)
[2020-07-07 20:32] LABS: Glucose, Whole Blood 236 mg/dL (60-115)
[2020-07-07] MEDS: Atorvastatin Calcium 40 MG TABLET PO (20:57)
[2020-07-07] MEDS: Insulin Glargine,Hum.rec.anlog 100 UNIT/ML 10 ML VIAL 20 UNIT SUBCUT (20:58)
[2020-07-07] MEDS: lisinopriL 10 MG TABLET PO (20:58)
[2020-07-08] VITALS (9 sets, daily range): BP systolic 134–177; BP diastolic 62–84; PULSE 70–80; RESP 16–20; TEMP 37.2–37.9; O2SAT 93–98
[2020-07-08] MEDS: Omeprazole 20 MG CAPSULE.DR PO (06:15)
[2020-07-08] MEDS: Piperacillin Sodium/Tazobactam 3.375 GM in 0.9 % Sodium Chloride 50 ML IV ×4 (06:16→21:46)
[2020-07-08 07:15] LABS: Iron 22 mcg/dL (30-160); Percent Iron Saturation 13 % (15-50); Total Iron Binding Capacity 170 mcg/dL (228-428); Unsaturated Iron Binding 148 ug/dL
[2020-07-08] MEDS: Fluticasone Propionate 100 MCG BLST.W.DEV 2 PUFF INHALE ×2 (07:19→20:13)
[2020-07-08 07:37] LABS: Ferritin 355 ng/mL (10-250)
[2020-07-08 08:11] LABS: Glucose, Whole Blood 239 mg/dL (60-115)
[2020-07-08] MEDS: Aspirin Enteric Coated 81 MG TABLET.DR PO (08:52)
[2020-07-08] MEDS: Cholecalciferol (Vitamin D3) 25 MCG TABLET 50 MCG PO (08:52)
[2020-07-08] MEDS: Gabapentin 600 MG TABLET PO ×3 (08:52→21:16)
[2020-07-08] MEDS: Nicotine 14 MG PATCH.TD24 TRANSDERMA (08:53)
[2020-07-08] MEDS: Insulin Lispro 100 UNIT/ML 3 ML VIAL SUBCUT ×4 (08:53→21:16)
[2020-07-08] MEDS: buPROPion HCl XL 300 MG TAB.ER.24H PO (08:53)
[2020-07-08 09:18] LABS: Hematocrit 28.9 % (37-47); Hemoglobin 9.2 g/dl (12.0-16.0)
[2020-07-08 12:22] LABS: Glucose, Whole Blood 280 mg/dL (60-115)
[2020-07-08] MEDS: Enoxaparin Sodium 40 MG/0.4 ML SYRINGE SUBCUT (15:07)
[2020-07-08 16:18] LABS: Glucose, Whole Blood 196 mg/dL (60-115)
--- NOTE | 2020-07-08 16:53 | P.PNIM_ITS ---
Subjective Subjective Date of Service: 07/08/20 Interval History: Patient is sitting comfortably in chair, today is her daughter's , patient denies fever chills no other acute issues, receiving daily dressing changes still with significant drainage from right foot wound. Review of Systems General no headache no dizziness no fever chills. CVS no chest pain, no palpitation. Respiratory no cough, no sputum production no respiratory distress. Gastrointestinal no nausea no vomiting, no abdominal pain Physical Exam Vital Signs: Vital Signs: Last Vital Signs Temp 99.2 F 07/08/20 15:31 Pulse 78 07/08/20 15:31 Resp 18 07/08/20 15:31 BP 144/62 H 07/08/20 15:31 Pulse Ox 93 07/08/20 15:31 Body Mass Index 28.7 Const: Other: General no acute distress. Neck supple no JVD. CVS regular rate rhythm, Respiratory lungs clear to auscultation, no respiratory distress Gastrointestinal abdomen soft, nontender, bowel sounds audible,no rigidity. Extremities right foot dressing in place, swelling extending towards right lower leg Neuro nonfocal . Skin no rash Objective Data Current Medications Generic Name Dose Route Start Last Admin Trade Name Freq PRN Reason Stop Dose Admin Acetaminophen 650 mg 07/06/20 20:37 07/06/20 21:41 Acetaminophen 325 Mg Tablet PO 650 mg Q8H PRN Administration Fever Albuterol Sulfate 2 puff 07/06/20 14:18 Albuterol Sulfate 90 Mcg 8 Gm Inhaler INHALE Q4H PRN Respiratory Distress Aspirin 81 mg 07/07/20 09:00 07/08/20 08:52 Aspirin Enteric Coated 81 Mg Tablet. PO 81 mg DAILY PRECIOUS Administration Atorvastatin Calcium 40 mg 07/06/20 21:00 07/07/20 20:57 Atorvastatin Calcium 40 Mg Tablet PO 40 mg BEDTIME [facility] Administration Bupropion HCl 300 mg 07/07/20 09:00 07/08/20 08:53 Bupropion Hcl Xl 300 Mg Tab.Er.24h PO 300 mg DAILY [facility] Administration Enoxaparin Sodium 40 mg 07/04/20 15:00 07/08/20 15:07 Enoxaparin Sodium 40 Mg/0.4 Ml Syringe SUBCUT 40 mg Q24H PRECIOUS Administration Fluticasone Propionate 2 puff 07/06/20 20:00 07/08/20 07:19 Fluticasone Propionate 100 Mcg Blst.W.Dev INHALE 2 puff RBID PRECIOUS Administration Gabapentin 600 mg 07/04/20 22:40 07/08/20 15:07 Gabapentin 600 Mg Tablet PO 600 mg TID PRECIOUS Administration Piperacillin Sod/Tazobactam 50 mls @ 100 mls/hr 07/04/20 22:00 07/08/20 12:24 Sod 3.375 gm/ Sodium Chloride IV Infused Q6H PRECIOUS Infusion Vancomycin HCl 750 mg/ 275 mls @ 183.333 mls/hr 07/06/20 16:00 07/08/20 07:49 Vancomycin HCl 500 mg/ Sodium IV Infused Chloride Q12H PRECIOUS Infusion Insulin Glargine 20 unit 07/06/20 21:00 07/07/20 20:58 Insulin Glargine,Hum.Rec.Anlog 100 Unit/Ml 10 Ml Vial SUBCUT 20 unit BEDTIME [facility] Administration Insulin Human Lispro 0 unit 07/05/20 00:00 07/08/20 11:48 Insulin Lispro 100 Unit/Ml 3 Ml Vial SUBCUT 6 unit QIDACHS [facility] Administration Protocol Lisinopril 10 mg 07/04/20 23:10 07/07/20 20:58 Lisinopril 10 Mg Tablet PO 10 mg BEDTIME [facility] Administration Protocol Methadone HCl 90 mg 07/06/20 09:00 07/08/20 08:53 Methadone Hcl 1 Mg/0.1 Ml Oral.Conc PO 90 mg DAILY [facility] Administration Nicotine 14 mg 07/07/20 13:45 07/08/20 08:53 Nicotine 14 Mg Patch.Td24 TRANSDERMA 14 mg DAILY [facility] Administration Omeprazole 20 mg 07/08/20 06:30 07/08/20 06:15 Omeprazole 20 Mg Capsule.Dr PO 20 mg DAILY@0630 [facility] Administration Pharmacy Consult 1 each 07/04/20 14:30 Consult Rx Vancomycin Dosing MISCELLANE DAILY PRN Consult order Vitamin D 50 mcg 07/07/20 09:00 07/08/20 08:52 Cholecalciferol (Vitamin D3) 25 Mcg Tablet PO 50 mcg DAILY [facility] Administration Labs CBC & Chem 7: 07/08/20 08:59 07/07/20 06:19 Microbiology Microbiology Results: Microbiology 07/06/20 21:25 Blood - Venous Blood Culture - Preliminary No growth after 24 hours. 01/01/21 21:25 Blood - Venous Blood Culture - Preliminary No growth after 24 hours. 07/04/20 10:26 Blood - Venous Blood Culture - Final Strep agalactiae (Grp B) 07/04/20 10:16 Blood - Venous Blood Culture - Final Strep agalactiae (Grp B) Assessment and Plan (1) COVID-19: Status: Acute Assessment and Plan: 60 yo F with a PMH of DM who presented to the hospital with abdominal pain nausea and vomiting and diagnosed to have DKA and COVID infection DKA resolved Blood sugar around 200, on Lantus 15 units bedtime and insulin sliding scale will adjust dose of Lantus for better blood sugar control Sepsis present on admission due to Diabetic Foot infection/right foot osteomyelitis/Gram-positive bacteremia Patient with chronic right foot osteomyelitis status post multiple courses of IV antibiotic, persistent right foot wound and significant drainage no fever, WBC n ormalized, blood cultures x2 grew strep agalactie group B Patient being followed by wound clinic for right foot wound, previously had wound VAC and evaluated by Dr. Lemus and found to have good AURELIANO Bone scan showed right proximal 3rd 4th and 5th metatarsal osteomyelitis patient on IV vancomcyin/zosyn Vanco trough 15.5 await ID input for duration and choice of antibiotic patient recently was treated with of IV vancomycin and was discharged on 2 weeks of tetracycline, prior to that patient has been treated with 6 weeks of antibiotic follow renal function and Vanco trough closely Will consult Dr. Lemus for possible amputation if patient is not a candidate for repeat long-term antibiotic Chronic anemia normal MCV no overt bleeding noted, noted to have low hematocrit 26.5 on 07/06 repeat hct improved Hypokalemia replaced and resolved. Tobacco use disorder patient smokes 1 pack in 2-3 days, counseling done, continue nicotine 14 mg daily COVID 19 positive, no hypoxia, continue supportive care HTN Continue lisinopril 10 mg daily BP stable Chronic opiate dependence Resume methadone PAD Will resume Lipitor, and aspirin Mood continue home meds COPD no acute exacerbation, continue home inhalers Full Code DVT pptx, lovenox (2) DKA (diabetic ketoacidoses): Status: Acute (3) PAD (peripheral artery disease): Status: Acute (4) Osteomyelitis: Status: Acute (5) Diabetic foot infection: Status: Acute (6) COPD (chronic obstructive pulmonary disease): Status: Acute
[2020-07-08] MEDS: Acetaminophen 325 MG TABLET 650 MG PO (19:57)
[2020-07-08 20:34] LABS: Glucose, Whole Blood 292 mg/dL (60-115)
[2020-07-08] MEDS: lisinopriL 10 MG TABLET PO (21:15)
[2020-07-08] MEDS: Atorvastatin Calcium 40 MG TABLET PO (21:15)
[2020-07-08] MEDS: Insulin Glargine,Hum.rec.anlog 100 UNIT/ML 10 ML VIAL 20 UNIT SUBCUT (21:16)
[2020-07-09] VITALS (9 sets, daily range): BP systolic 114–189; BP diastolic 55–76; PULSE 60–82; RESP 18–20; TEMP 36.7–37.7; O2SAT 93–98
[2020-07-09] MEDS: Piperacillin Sodium/Tazobactam 3.375 GM in 0.9 % Sodium Chloride 50 ML IV ×4 (03:39→21:27)
[2020-07-09] MEDS: Omeprazole 20 MG CAPSULE.DR PO (05:56)
[2020-07-09 07:25] LABS: Anion Gap 16 (12-20); Blood Urea Nitrogen 7 mg/dL (9-16); C Reactive Protein 14.53 mg/dL (< or = 0.50); Calcium 8.4 mg/dL (8.4-10.2); Carbon Dioxide 28 mmol/L (22-29); Chloride 100 mmol/L (96-108); Creatinine Clr Calc Pharmacy 67.8; Estimated Glomerular Filt Rate > 60; Glucose Random 295 mg/dL (60-115); Potassium 3.8 mmol/l (3.3-5.1); Sodium 140 mmol/L (135-145)
[2020-07-09] MEDS: Fluticasone Propionate 100 MCG BLST.W.DEV 2 PUFF INHALE ×2 (08:22→20:14)
[2020-07-09] MEDS: Insulin Lispro 100 UNIT/ML 3 ML VIAL SUBCUT ×3 (08:23→21:33)
[2020-07-09] MEDS: Gabapentin 600 MG TABLET PO ×3 (08:23→21:26)
[2020-07-09] MEDS: Cholecalciferol (Vitamin D3) 25 MCG TABLET 50 MCG PO (08:23)
[2020-07-09] MEDS: Aspirin Enteric Coated 81 MG TABLET.DR PO (08:24)
[2020-07-09] MEDS: Nicotine 14 MG PATCH.TD24 TRANSDERMA (08:24)
[2020-07-09] MEDS: buPROPion HCl XL 300 MG TAB.ER.24H PO (08:24)
[2020-07-09 08:34] LABS: Glucose, Whole Blood 254 mg/dL (60-115)
[2020-07-09 11:39] LABS: Glucose, Whole Blood 222 mg/dL (60-115)
--- NOTE | 2020-07-09 12:04 | MHC.CM.PN ---
Female 60 DX Covid+ and Osteomyelitis. DP TBD by ID. If IV ABX needed, Pt will go to [facility]. Dr Lemus is following. She may require an AMP. CM will follow.
--- NOTE | 2020-07-09 12:14 | PM.EVENT ---
Event Note Date of Service: 07/09/20 Event Note: Nonhealing right foot ulcer. Full consult dictated
--- NOTE | 2020-07-09 13:22 | P.PNIM_ITS ---
Subjective Subjective Date of Service: 07/09/20 Interval History: right foot pain, swelling Cardiovascular Cardiovascular: Reports no additional cardiovascular complaints Respiratory Respiratory: Reports no additional respiratory complaints Physical Exam Vital Signs: Vital Signs: Last Vital Signs Temp 98.3 F 07/09/20 11:34 Pulse 70 07/09/20 11:34 Resp 18 07/09/20 11:34 BP 142/67 H 07/09/20 11:34 Pulse Ox 93 07/09/20 11:34 Body Mass Index 28.7 General: AO X 3, no acute distress Resp: CTA bilateral CVS: S1,S2,RRR GI: soft, non tender, non distended Neuro: motor grossly intact Psych: appropriate affect Objective Data Current Medications Generic Name Dose Route Start Last Admin Trade Name Freq PRN Reason Stop Dose Admin Acetaminophen 650 mg 07/06/20 20:37 07/08/20 19:57 Acetaminophen 325 Mg Tablet PO 650 mg Q8H PRN Administration Fever Albuterol Sulfate 2 puff 07/06/20 14:18 Albuterol Sulfate 90 Mcg 8 Gm Inhaler INHALE Q4H PRN Respiratory Distress Aspirin 81 mg 07/07/20 09:00 07/09/20 08:24 Aspirin Enteric Coated 81 Mg Tablet.Dr PO 81 mg DAILY PRECIOUS Administration Atorvastatin Calcium 40 mg 07/06/20 21:00 07/08/20 21:15 Atorvastatin Calcium 40 Mg Tablet PO 40 mg BEDTIME PRECIOUS Administration Bupropion HCl 300 mg 07/07/20 09:00 07/09/20 08:24 Bupropion Hcl Xl 300 Mg Tab.Er.24h PO 300 mg DAILY PRECIOUS Administration Enoxaparin Sodium 40 mg 07/04/20 15:00 07/08/20 15:07 Enoxaparin Sodium 40 Mg/0.4 Ml Syringe SUBCUT 40 mg Q24H PRECIOUS Administration Fluticasone Propionate 2 puff 07/06/20 20:00 07/09/20 08:22 Fluticasone Propionate 100 Mcg Blst.W.Dev INHALE 2 puff RBID PRECIOUS Administration Gabapentin 600 mg 07/04/20 22:40 07/09/20 08:23 Gabapentin 600 Mg Tablet PO 600 mg TID PRECIOUS Administration Piperacillin Sod/Tazobactam 50 mls @ 100 mls/hr 07/04/20 22:00 07/09/20 11:44 Sod 3.375 gm/ Sodium Chloride IV Infused Q6H PRECIOUS Infusion Vancomycin HCl 750 mg/ 275 mls @ 183.333 mls/hr 07/06/20 16:00 07/09/20 05:52 Vancomycin HCl 500 mg/ Sodium IV Infused Chloride Q12H PRECIOUS Infusion Insulin Glargine 20 unit 07/06/20 21:00 07/08/20 21:16 Insulin Glargine,Hum.Rec.Anlog 100 Unit/Ml 10 Ml Vial SUBCUT 20 unit BEDTIME [facility] Administration Insulin Human Lispro 0 unit 07/05/20 00:00 07/09/20 12:18 Insulin Lispro 100 Unit/Ml 3 Ml Vial SUBCUT 4 unit QIDACHS [facility] Administration Protocol Lisinopril 10 mg 07/04/20 23:10 07/08/20 21:15 Lisinopril 10 Mg Tablet PO 10 mg BEDTIME [facility] Administration Protocol Methadone HCl 90 mg 07/06/20 09:00 07/09/20 08:23 Methadone Hcl 1 Mg/0.1 Ml Oral.Conc PO 90 mg DAILY [facility] Administration Nicotine 14 mg 07/07/20 13:45 07/09/20 08:24 Nicotine 14 Mg Patch.Td24 TRANSDERMA 14 mg DAILY [facility] Administration Omeprazole 20 mg 07/08/20 06:30 07/09/20 05:56 Omeprazole 20 Mg Capsule.Dr PO 20 mg DAILY@0630 [facility] Administration Pharmacy Consult 1 each 07/04/20 14:30 Consult Rx Vancomycin Dosing MISCELLANE DAILY PRN Consult order Vitamin D 50 mcg 07/07/20 09:00 07/09/20 08:23 Cholecalciferol (Vitamin D3) 25 Mcg Tablet PO 50 mcg DAILY [facility] Administration Labs CBC & Chem 7: 07/08/20 08:59 07/09/20 06:19 Microbiology Microbiology Results: Microbiology 07/06/20 21:25 Blood - Venous Blood Culture - Preliminary No growth after 48 hours. 07/06/20 21:25 Blood - Venous Blood Culture - Preliminary No growth after 48 hours. 07/04/20 10:26 Blood - Venous Blood Culture - Final Strep agalactiae (Grp B) 07/04/20 10:16 Blood - Venous Blood Culture - Final Strep agalactiae (Grp B) Assessment and Plan (1) COVID-19: Status: Acute (2) DKA (diabetic ketoacidoses): Status: Acute (3) PAD (peripheral artery disease): Status: Acute (4) Osteomyelitis: Status: Acute (5) Diabetic foot infection: Status: Acute (6) COPD (chronic obstructive pulmonary disease): Status: Acute Assessment and Plan: 60 yo F with a PMH of DM who presented to the hospital with abdominal pain nausea and vomiting and diagnosed to have DKA and COVID infection DKA resolved continue insulin Sepsis present on admission due to Diabetic Foot infection/right foot osteomyelitis/Gram-positive bacteremia Patient with chronic right foot osteomyelitis status post multiple courses of IV antibiotic, persistent right foot wound and significant drainage no fever, WBC normalized, blood cultures x2 grew strep agalactie group B Patient being followed by wound clinic for right foot wound, previously had wound VAC and evaluated by Dr. Lemus and found to have good AURELIANO Bone scan showed right proximal 3rd 4th and 5th metatarsal osteomyelitis patient on IV vancomcyin/zosyn await ID input for duration and choice of antibiotic patient recently was treated with of IV vancomycin and was discharged on 2 weeks of tetracycline, prior to that patient has been treated with 6 weeks of antibiotic follow up dr lemus for possible amputation COVID 19 positive, no hypoxia, continue supportive care HTN Continue lisinopril 10 mg daily BP stable Chronic opiate dependence methadone PAD Lipitor, and aspirin Mood continue home meds COPD no acute exacerbation, continue home inhalers
--- NOTE | 2020-07-09 13:44 | CONS_ITS ---
DATE OF SERVICE: 07/09/2020 REASON FOR CONSULTATION: Nonhealing right lower extremity ulceration. HISTORY OF PRESENT ILLNESS: A 60-year-old female with a history of nonhealing right foot ulcer. She originally presented on July 04 with abdominal pain and nausea and vomiting. In addition, she was found to have respiratory issues. She was subsequently admitted to the ICU and worked up and was found to be COVID positive, have diabetic ketoacidosis along with a nonhealing right foot ulcer. She was subsequently admitted and treated. She has improved since her initial admission and she was subsequently transferred up to the floor. She now presents to us for vascular evaluation. PAST MEDICAL HISTORY: Significant for COPD, depression, diabetes, diabetic foot infections, hyperlipidemia, glaucoma. PAST SURGICAL HISTORY: Cataract surgery bilateral and cholecystectomy. MEDICATIONS: Medication list was reviewed per nursing MAR. SOCIAL HISTORY: Smokes about 1 pack of cigarettes daily. She does have a prior history of drug abuse and is currently being maintained on methadone. FAMILY HISTORY: No history of advanced coronary artery disease or peripheral vascular disease. REVIEW OF SYSTEMS: 13-point review was performed at the current time. Denies any headache, dizziness, nausea, vomiting, diarrhea, or shortness of breath. Her shortness of breath and other issues seem to have significantly improved since admission. She is now on a regular hospital floor bed in the COVID unit. PHYSICAL EXAMINATION: GENERAL: Afebrile. VITAL SIGNS: Stable. HEAD AND NECK: Demonstrates no bruits. CHEST: Moving air bilaterally. CARDIAC: Positive S1-S2. ABDOMEN: Soft. EXTREMITIES: Upper extremities have good radial and ulnar pulses. Lower extremities, warm with good capillary refill. NEUROLOGICAL: II through XII grossly intact. PSYCH: Mood and affect appear within normal limits. SKIN: Right foot ulcer significant deterioration. It appears to be a Charcot foot with a lateral foot ulcer nearly 6 to 7 cm in diameter. There is some serous drainage from there. It appears moist and macerated at the time of my exam. IMPRESSION: Nonhealing right foot ulcer. I had a very jose discussion with the patient. This is recurrent infection of that foot with her current conditions and lack of control of her blood sugars. She may need amputation in the future. I would like her acute issues to resolve including her COPD and improvement in her respiratory status and with the hopes that her positive COVID status does not affect her from a respiratory standpoint. Once these issues do resolve, would pursue possible amputation, which I would offer her as a below-knee amputation. She has completed another course of IV antibiotics from Infectious Disease, continues to be nonhealing and I think with the recurrent infections, this may be the best course of action for her. We will follow with you. Thank you for allowing us to assist in her care. MD PRINCESS Peralta/BETHANY / [phone]
[2020-07-09] MEDS: Enoxaparin Sodium 40 MG/0.4 ML SYRINGE SUBCUT (14:11)
[2020-07-09 16:12] LABS: Vancomycin Trough 22.6 mcg/mL (10.0-20.0)
[2020-07-09 16:51] LABS: Glucose, Whole Blood 131 mg/dL (60-115)
[2020-07-09 20:49] LABS: Glucose, Whole Blood 198 mg/dL (60-115)
[2020-07-09] MEDS: lisinopriL 10 MG TABLET PO (21:26)
[2020-07-09] MEDS: Atorvastatin Calcium 40 MG TABLET PO (21:26)
[2020-07-09] MEDS: Insulin Glargine,Hum.rec.anlog 100 UNIT/ML 10 ML VIAL 20 UNIT SUBCUT (21:33)
[2020-07-10] VITALS (8 sets, daily range): BP systolic 129–159; BP diastolic 61–76; PULSE 66–78; RESP 18–20; TEMP 36.3–37.2; O2SAT 94–97
[2020-07-10] MEDS: vancomycin HCL 1,000 MG in 0.9 % Sodium Chloride 250 ML 270 MG IV ×2 (03:49→18:10)
[2020-07-10] MEDS: Piperacillin Sodium/Tazobactam 3.375 GM in 0.9 % Sodium Chloride 50 ML IV ×4 (03:49→22:00)
[2020-07-10] MEDS: Omeprazole 20 MG CAPSULE.DR PO (04:52)
[2020-07-10 06:58] LABS: MANUAL DIFF FLAG NO
[2020-07-10 07:15] LABS: Basophils Percent Auto 0.2 % (0-2); Eosinophils Percent Auto 0.3 % (0-4); Hematocrit 27.7 % (37-47); Hemoglobin 8.6 g/dl (12.0-16.0); Imm Gran Abs Auto 0.13 X10*3/uL (0.00-0.03); Imm Gran Pct Auto 1.2 % (0.0-0.4); Lymphocytes Absolute Auto 1.7 X10*3/uL (1.2-4.9); Lymphocytes Percent Auto 15.6 % (20-40); Mean Corpuscular Hemoglobin 26.7 pg (27.0-33.0); Mean Platelet Volume 11.2 fL (9.4-12.3); Monocytes Percent Auto 9.5 % (2-11); Neutrophils Percent Auto 73.2 % (45-73); Platelet Count 341 X10*3/uL (160-400); Red Blood Count 3.22 X10*6/uL (4.20-5.50); Red Cell Distribution Width 14.7 % (11.0-16.0); White Blood Count 10.9 X10*3/uL (4.8-10.8)
[2020-07-10 07:34] LABS: Anion Gap 13 (12-20); Blood Urea Nitrogen 8 mg/dL (9-16); Carbon Dioxide 31 mmol/L (22-29); Chloride 98 mmol/L (96-108); Creatinine Clr Calc Pharmacy 66.9; Estimated Glomerular Filt Rate > 60; Glucose Fasting 215 mg/dL (60-99); Potassium 3.9 mmol/l (3.3-5.1); Sodium 138 mmol/L (135-145)
[2020-07-10] MEDS: Fluticasone Propionate 100 MCG BLST.W.DEV 2 PUFF INHALE ×2 (07:35→19:59)
[2020-07-10] MEDS: Insulin Lispro 100 UNIT/ML 3 ML VIAL SUBCUT ×4 (08:24→22:08)
[2020-07-10] MEDS: buPROPion HCl XL 300 MG TAB.ER.24H PO (08:25)
[2020-07-10] MEDS: Aspirin Enteric Coated 81 MG TABLET.DR PO (08:25)
[2020-07-10] MEDS: Gabapentin 600 MG TABLET PO ×3 (08:25→22:07)
[2020-07-10] MEDS: Nicotine 14 MG PATCH.TD24 TRANSDERMA (08:25)
[2020-07-10] MEDS: Cholecalciferol (Vitamin D3) 25 MCG TABLET 50 MCG PO (08:25)
[2020-07-10 08:28] LABS: Glucose, Whole Blood 192 mg/dL (60-115)
--- NOTE | 2020-07-10 11:05 | HO.VASCPN ---
Subjective Subjective Date of Service: 07/10/20 Patient reports: no new complaints and feels better Interval history: Chronic nonhealing right lower extremity ulcer. No events overnight. Doing relatively well. Physical Exam Vital Signs: Vital Signs: Last Vital Signs Temp 97.4 F 07/10/20 08:00 Pulse 71 07/10/20 08:00 Resp 18 07/10/20 08:00 BP 159/76 H 07/10/20 08:00 Pulse Ox 97 07/10/20 08:00 Body Mass Index 28.7 Const: General: cooperative, healthy appearing and no acute distress Orientation/consciousness: oriented to person, oriented to place and oriented to time HENMT: Head: Yes normal to inspection Neck: Carotids: no bruits Chest: Chest palpation & inspection: normal inspection of the chest Resp: Effort & Inspection: normal respiratory effort and able to speak in complete sentences Auscultation: clear to auscultation bilaterally Cardio: Rate: regular rate Heart sounds: S1 normal heart sound present and S2 normal heart sound present GI: Inspection: Yes normal to inspection Skin: General skin exam: no rashes or lesions noted Wounds: wounds noted (Right plantar aspect of the foot. No erythema mild serous drainage) Neuro: General: oriented to person, oriented to place, oriented to time and CN's II-XI intact bilaterally Extrem: General: Yes normal to inspection, Yes full ROM and Yes no clubbing, cyanosis or edema Psych: Appearance: grossly normal and well kempt Speech and movement: Normal speech and movement present Affect: normal affect Progress Note: A&P Assessment and plan (1) Diabetic foot infection: Status: Acute Assessment and Plan: Patient's foot appears to be stable. I did have a jose discussion with her in that she will need a below-knee amputation. Her for she has Charcot foot with a chronic ulcer that has failed conservative antibiotic therapy. I will schedule her electively. I would like the acute COVID issues to resolve prior to any intervention. Her leg appears stable at the current time. She will follow up with me as an outpatient. Thank you for allowing us to assist in her care. Fall Risk Details Current Medications: Current Medications Generic Name Dose Route Start Last Admin Trade Name Freq PRN Reason Stop Dose Admin Acetaminophen 650 mg 07/06/20 20:37 07/08/20 19:57 Acetaminophen 325 Mg Tablet PO 650 mg Q8H PRN Administration Fever Albuterol Sulfate 2 puff 07/06/20 14:18 Albuterol Sulfate 90 Mcg 8 Gm Inhaler INHALE Q4H PRN Respiratory Distress Aspirin 81 mg 07/07/20 09:00 07/10/20 08:25 Aspirin Enteric Coated 81 Mg Tablet. PO 81 mg DAILY PRECIOUS Administration Atorvastatin Calcium 40 mg 07/06/20 21:00 07/09/20 21:26 Atorvastatin Calcium 40 Mg Tablet PO 40 mg BEDTIME PRECIOUS Administration Bupropion HCl 300 mg 07/07/20 09:00 07/10/20 08:25 Bupropion Hcl Xl 300 Mg Tab.Er.24h PO 300 mg DAILY PRECIOUS Administration Enoxaparin Sodium 40 mg 07/04/20 15:00 07/09/20 14:11 Enoxaparin Sodium 40 Mg/0.4 Ml Syringe SUBCUT 40 mg Q24H PRECIOUS Administration Fluticasone Propionate 2 puff 07/06/20 20:00 07/10/20 07:35 Fluticasone Propionate 100 Mcg Blst.W.Dev INHALE 2 puff RBID PRECIOUS Administration Gabapentin 600 mg 07/04/20 22:40 07/10/20 08:25 Gabapentin 600 Mg Tablet PO 600 mg TID PRECIOUS Administration Piperacillin Sod/Tazobactam 50 mls @ 100 mls/hr 07/04/20 22:00 07/10/20 04:40 Sod 3.375 gm/ Sodium Chloride IV Infused Q6H PRECIOUS Infusion Vancomycin HCl 1,000 mg/ 270 mls @ 270 mls/hr 07/10/20 04:00 07/10/20 04:51 Sodium Chloride IV Infused Q12H PRECIOUS Infusion Insulin Glargine 20 unit 07/06/20 21:00 07/09/20 21:33 Insulin Glargine,Hum.Rec.Anlog 100 Unit/Ml 10 Ml Vial SUBCUT 20 unit BEDTIME PRECIOUS Administration Insulin Human Lispro 0 unit 07/05/20 00:00 07/10/20 08:24 Insulin Lispro 100 Unit/Ml 3 Ml Vial SUBCUT 4 unit QIDACHS PRECIOUS Administration Protocol Lisinopril 10 mg 07/04/20 23:10 07/09/20 21:26 Lisinopril 10 Mg Tablet PO 10 mg BEDTIME PRECIOUS Administration Protocol Methadone HCl 90 mg 07/06/20 09:00 07/10/20 08:25 Methadone Hcl 1 Mg/0.1 Ml Oral.Conc PO 90 mg DAILY PRECIOUS Administration Nicotine 14 mg 07/07/20 13:45 07/10/20 08:25 Nicotine 14 Mg Patch.Td24 TRANSDERMA 14 mg DAILY PRECIOUS Administration Omeprazole 20 mg 07/08/20 06:30 07/10/20 04:52 Omeprazole 20 Mg Capsule.Dr PO 20 mg DAILY@0630 PRECIOUS Administration Pharmacy Consult 1 each 07/04/20 14:30 Consult Rx Vancomycin Dosing MISCELLANE DAILY PRN Consult order Vitamin D 50 mcg 07/07/20 09:00 07/10/20 08:25 Cholecalciferol (Vitamin D3) 25 Mcg Tablet PO 50 mcg DAILY PRECIOUS Administration Time Spent With Patient Time: Total time spent is greater than 50% in coordination of care (as documented) at patient's floor/unit and/or counseling patient: Time with patient: 15 - 24 minutes
--- NOTE | 2020-07-10 11:24 | P.PNIM_ITS ---
Subjective Subjective Date of Service: 07/10/20 Interval History: no sob Cardiovascular Cardiovascular: Reports no additional cardiovascular complaints Gastrointestinal Gastrointestinal: Reports no additional gastrointestinal complaints Physical Exam Vital Signs: Vital Signs: Last Vital Signs Temp 97.4 F 07/10/20 08:00 Pulse 71 07/10/20 08:00 Resp 18 07/10/20 08:00 BP 159/76 H 07/10/20 08:00 Pulse Ox 97 07/10/20 08:00 Body Mass Index 28.7 General: AO X 3, no acute distress Resp: CTA bilateral CVS: S1,S2,RRR GI: soft, non tender, non distended Neuro: motor grossly intact Psych: appropriate affect Objective Data Current Medications Generic Name Dose Route Start Last Admin Trade Name Freq PRN Reason Stop Dose Admin Acetaminophen 650 mg 07/06/20 20:37 07/08/20 19:57 Acetaminophen 325 Mg Tablet PO 650 mg Q8H PRN Administration Fever Albuterol Sulfate 2 puff 07/06/20 14:18 Albuterol Sulfate 90 Mcg 8 Gm Inhaler INHALE Q4H PRN Respiratory Distress Aspirin 81 mg 07/07/20 09:00 07/10/20 08:25 Aspirin Enteric Coated 81 Mg Tablet.Dr PO 81 mg DAILY PRECIOUS Administration Atorvastatin Calcium 40 mg 07/06/20 21:00 07/09/20 21:26 Atorvastatin Calcium 40 Mg Tablet PO 40 mg BEDTIME PRECIOUS Administration Bupropion HCl 300 mg 07/07/20 09:00 07/10/20 08:25 Bupropion Hcl Xl 300 Mg Tab.Er.24h PO 300 mg DAILY PRECIOUS Administration Enoxaparin Sodium 40 mg 07/04/20 15:00 07/09/20 14:11 Enoxaparin Sodium 40 Mg/0.4 Ml Syringe SUBCUT 40 mg Q24H PRECIOUS Administration Fluticasone Propionate 2 puff 07/06/20 20:00 07/10/20 07:35 Fluticasone Propionate 100 Mcg Blst.W.Dev INHALE 2 puff RBID PRECIOUS Administration Gabapentin 600 mg 07/04/20 22:40 07/10/20 08:25 Gabapentin 600 Mg Tablet PO 600 mg TID PRECIOUS Administration Piperacillin Sod/Tazobactam 50 mls @ 100 mls/hr 07/04/20 22:00 07/10/20 11:18 Sod 3.375 gm/ Sodium Chloride IV 100 mls/hr Q6H PRECIOUS Administration Vancomycin HCl 1,000 mg/ 270 mls @ 270 mls/hr 07/10/20 04:00 07/10/20 04:51 Sodium Chloride IV Infused Q12H PRECIOUS Infusion Insulin Glargine 20 unit 07/06/20 21:00 07/09/20 21:33 Insulin Glargine,Hum.Rec.Anlog 100 Unit/Ml 10 Ml Vial SUBCUT 20 unit BEDTIME PRECIOUS Administration Insulin Human Lispro 0 unit 07/05/20 00:00 07/10/20 08:24 Insulin Lispro 100 Unit/Ml 3 Ml Vial SUBCUT 4 unit QIDACHS [facility] Administration Protocol Lisinopril 10 mg 07/04/20 23:10 07/09/20 21:26 Lisinopril 10 Mg Tablet PO 10 mg BEDTIME PRECIOUS Administration Protocol Methadone HCl 90 mg 07/06/20 09:00 07/10/20 08:25 Methadone Hcl 1 Mg/0.1 Ml Oral.Conc PO 90 mg DAILY PRECIOUS Administration Nicotine 14 mg 07/07/20 13:45 07/10/20 08:25 Nicotine 14 Mg Patch.Td24 TRANSDERMA 14 mg DAILY PRECIOUS Administration Omeprazole 20 mg 07/08/20 06:30 07/10/20 04:52 Omeprazole 20 Mg Capsule. PO 20 mg DAILY@0630 [facility] Administration Pharmacy Consult 1 each 07/04/20 14:30 Consult Rx Vancomycin Dosing MISCELLANE DAILY PRN Consult order Vitamin D 50 mcg 07/07/20 09:00 07/10/20 08:25 Cholecalciferol (Vitamin D3) 25 Mcg Tablet PO 50 mcg DAILY [facility] Administration Labs CBC & Chem 7: 07/10/20 06:39 07/10/20 06:39 Microbiology Microbiology Results: Microbiology 07/06/20 21:25 Blood - Venous Blood Culture - Preliminary No growth after 48 hours. 07/06/20 21:25 Blood - Venous Blood Culture - Preliminary No growth after 48 hours. 07/04/20 10:26 Blood - Venous Blood Culture - Final Strep agalactiae (Grp B) 07/04/20 10:16 Blood - Venous Blood Culture - Final Strep agalactiae (Grp B) Assessment and Plan (1) COVID-19: Status: Acute (2) DKA (diabetic ketoacidoses): Status: Acute (3) PAD (peripheral artery disease): Status: Acute (4) Osteomyelitis: Status: Acute (5) Diabetic foot infection: Status: Acute (6) COPD (chronic obstructive pulmonary disease): Status: Acute Assessment and Plan: 60 yo F with a PMH of DM who presented to the hospital with abdominal pain nausea and vomiting and diagnosed to have DKA and COVID infection DKA resolved continue insulin Sepsis present on admission due to Diabetic Foot infection/right foot osteomyelitis/GBS bacteremia Patient with chronic right foot osteomyelitis status post multiple courses of IV antibiotic, persistent right foot wound and significant drainage no fever, WBC normalized, blood cultures x2 grew strep agalactie group B Patient being followed by wound clinic for right foot wound, previously had wound VAC and evaluated by Dr. Lemus and found to have good AURELIANO Bone scan showed right proximal 3rd 4th and 5th metatarsal osteomyelitis patient on IV vancomcyin/zosyn given recent covid diagnosis and unclear if patient will develop symptoms, will plan for discharge tomorrow if stable on doxy and augmentin po to bridge for plan for elective BKA for definitive treatment COVID 19 positive, no hypoxia, continue supportive care HTN Continue lisinopril 10 mg daily BP stable Chronic opiate dependence methadone PAD Lipitor, and aspirin Mood continue home meds COPD no acute exacerbation, continue home inhalers
[2020-07-10 11:26] LABS: Glucose, Whole Blood 194 mg/dL (60-115)
--- NOTE | 2020-07-10 12:34 | MHC.CM.PN ---
DP home with PO ABX or [facility] for IV ABX. TBD by ID. Due to Covid+ a surgical intervention may be delayed. CM will follow.
[2020-07-10 16:43] LABS: Glucose, Whole Blood 192 mg/dL (60-115)
[2020-07-10] MEDS: Enoxaparin Sodium 40 MG/0.4 ML SYRINGE SUBCUT (17:14)
[2020-07-10 20:42] LABS: Glucose, Whole Blood 243 mg/dL (60-115)
[2020-07-10] MEDS: lisinopriL 10 MG TABLET PO (22:07)
[2020-07-10] MEDS: Atorvastatin Calcium 40 MG TABLET PO (22:07)
[2020-07-10] MEDS: Insulin Glargine,Hum.rec.anlog 100 UNIT/ML 10 ML VIAL 20 UNIT SUBCUT (22:07)
[2020-07-11 04:00] VITALS: BP 133/62; PULSE 77; RESP 18; TEMP 37.3; O2SAT 96
[2020-07-11] MEDS: vancomycin HCL 1,000 MG in 0.9 % Sodium Chloride 250 ML 270 MG IV (04:43)
[2020-07-11] MEDS: Piperacillin Sodium/Tazobactam 3.375 GM in 0.9 % Sodium Chloride 50 ML IV ×2 (04:43→10:22)
[2020-07-11] MEDS: Omeprazole 20 MG CAPSULE.DR PO (04:44)
[2020-07-11 06:21] LABS: MANUAL DIFF FLAG NO
[2020-07-11 06:47] LABS: Basophils Percent Auto 0.1 % (0-2); Eosinophils Percent Auto 0.3 % (0-4); Hematocrit 24.4 % (37-47); Hemoglobin 7.6 g/dl (12.0-16.0); Imm Gran Pct Auto 1.1 % (0.0-0.4); Lymphocytes Absolute Auto 1.6 X10*3/uL (1.2-4.9); Lymphocytes Percent Auto 17.7 % (20-40); Mean Corpuscular HGB Conc 31.1 g/dl (31.0-35.0); Mean Corpuscular Hemoglobin 26.8 pg (27.0-33.0); Mean Corpuscular Volume 85.9 fL (80-98); Mean Platelet Volume 11.5 fL (9.4-12.3); Monocytes Absolute Auto 0.9 X10*3/uL (0.1-1.2); Monocytes Percent Auto 10.2 % (2-11); Neutrophils Absolute Auto 6.3 X10*3/uL (2.0-8.3); Neutrophils Percent Auto 70.6 % (45-73); Platelet Count 342 X10*3/uL (160-400); Red Blood Count 2.84 X10*6/uL (4.20-5.50); Red Cell Distribution Width 14.9 % (11.0-16.0)
[2020-07-11 06:56] LABS: Anion Gap 16 (12-20); Blood Urea Nitrogen 8 mg/dL (9-16); Calcium 7.8 mg/dL (8.4-10.2); Carbon Dioxide 27 mmol/L (22-29); Chloride 97 mmol/L (96-108); Estimated Glomerular Filt Rate > 60; Glucose Fasting 281 mg/dL (60-99); Potassium 3.9 mmol/l (3.3-5.1); Sodium 136 mmol/L (135-145)
[2020-07-11 07:49] LABS: Glucose, Whole Blood 211 mg/dL (60-115)
[2020-07-11] MEDS: Fluticasone Propionate 100 MCG BLST.W.DEV 2 PUFF INHALE (07:52)
[2020-07-11 07:54] VITALS: PULSE 79; O2SAT 96
[2020-07-11] MEDS: Insulin Lispro 100 UNIT/ML 3 ML VIAL SUBCUT ×2 (07:56→12:21)
[2020-07-11 08:00] VITALS: BP 184/86; PULSE 77; RESP 18; TEMP 36.8; O2SAT 97
--- NOTE | 2020-07-11 10:07 | P.DS_ITS ---
DS: Providers Provider Date of Service: 07/11/20 Date of admission: 07/04/20 14:30 Primary care physician: Unknown Physician Consults: 07/04/20 11:46 Consult to Infectious Diseases Routine Consulting Provider: Liza Villafana Reason for consultation: osteo 07/08/20 17:01 Consult to Vascular Surgery Routine Consulting Provider: Hunter Lemus Reason for consultation: rt foot wound Has provider been notified: No DS: Diagnosis Discharge Diagnosis (1) COVID-19: Status: Acute (2) DKA (diabetic ketoacidoses): Status: Acute (3) PAD (peripheral artery disease): Status: Acute (4) Osteomyelitis: Status: Acute (5) Diabetic foot infection: Status: Acute (6) COPD (chronic obstructive pulmonary disease): Status: Acute (7) Sepsis: Status: Acute DS: Medications Discharge Medications Home Medications: Home Medications Medication Instructions Recorded Confirmed albuterol sulfate 90 mcg/actuation 2 puff PO Q4H PRN 04/24/20 07/04/20 aerosol inhaler aspirin 81 mg tablet,delayed 81 mg PO DAILY 04/24/20 07/04/20 release atorvastatin 40 mg tablet 40 mg PO BEDTIME 04/24/20 07/04/20 bupropion HCl 150 mg tablet,12 hr 150 mg PO BID 04/24/20 07/04/20 sustained-release cholecalciferol (vitamin D3) 50 50 mcg PO DAILY 04/24/20 07/04/20 mcg (2,000 unit) tablet furosemide 20 mg tablet 20 mg PO QAM 04/24/20 07/04/20 insulin degludec 100 unit/mL (3 20 unit SUBCUT BID 04/24/20 07/04/20 mL) subcutaneous pen lancets 33 gauge #100 ea 04/24/20 05/29/20 lisinopril 10 mg tablet 10 mg PO DAILY 04/24/20 07/04/20 metformin 1,000 mg tablet 1,000 mg PO BIDWMEAL 04/24/20 07/04/20 omeprazole 20 mg capsule,delayed 20 mg PO DAILY 04/24/20 07/04/20 release gabapentin 600 mg tablet 600 mg PO TID 05/03/20 07/04/20 Flovent HFA 2 puff INHALATION BID 05/28/20 07/04/20 insulin aspart U-100 [Novolog 0 unit SUBCUT QIDACHS 05/28/20 07/04/20 Flexpen U-100 Insulin] methadone [Methadone Intensol] 95 mg DAILY 05/28/20 07/05/20 Previous Rx's Medication Instructions Recorded amoxicillin-pot clavulanate 1 tab PO Q12H #42 tab 07/11/20 [Augmentin] doxycycline hyclate 100 mg PO BID #42 cap 07/11/20 DS: Summary Hospital Course Hospital Course: Patient was admitted for sepsis due to diabetic foot ulcer/osteomyelitis complicated by group B strep bacteremia and diabetic ketoacidosis. She was briefly admitted to the ICU for her DKA, which resolved, then downgraded to medical floor. Patient was also incidentally noted to have COVID 19, however, she has been asymptomatic. Patient was treated with vancomycin and Zosyn. Her sepsis resolved. She was evaluated by Infectious Disease and vascular surgery. Due to multiple unsuccessful courses of IV antibiotics, patient will need BKA for definitive treatment of her osteomyelitis. However, given COVID diagnosis so be deferred for 2-3 weeks with plan to do electively. In the meantime patient will be treated with p.o. Augmentin and doxycycline to control infection, not for curative intent. Patient is feeling will be discharged home. Time Spent with Patient Time attestation: Total time spent providing and/or coordinating discharge services: Physical Exam Vital Signs: Vital Signs: Last Vital Signs Temp 98.3 F 07/11/20 08:00 Pulse 77 07/11/20 08:00 Resp 18 07/11/20 08:00 BP 184/86 H 07/11/20 08:00 Pulse Ox 97 07/11/20 08:00 Body Mass Index 28.7 General: AO X 3, no acute distress Resp: CTA bilateral CVS: S1,S2,RRR GI: soft, non tender, non distended Neuro: motor grossly intact Psych: appropriate affect right foot: plantar ulcer, charcot, swollen DS: Data Data Completed and Pending Completed studies during hospitalization [Text1]: Procedures Compression of Right Foot using Pressure Dressing (05/28/20) Labs on day of discharge: 07/04/20 ECG 12 lead EKG Stat NM bone 3 phase Routine 07/04/20 09:56 CT abdomen pelvis w con Stat XR chest 1V Stat 07/04/20 10:00 0.9 % Sodium Chloride [Ns] 500 ml IV 999 mls/hr 07/04/20 10:16 Lactic Acid Stat 07/04/20 10:17 Acetone, serum QL Stat Basic Metabolic Panel Stat Complete Blood Count Auto Diff Stat Lipase Stat Liver Panel Stat Prothrombin Time INR Stat SLIDE REVIEW Stat Troponin-I High Sensitivity Stat 07/04/20 10:24 SARS-CoV2/FLU/RSV Stat 07/04/20 10:26 Blood Culture X2 [BC] Stat 07/04/20 10:46 EKG Documentation DIRECTED 07/04/20 10:53 pH VBG Stat 07/04/20 11:30 0.9 % Sodium Chloride [Ns] 500 ml IV 999 mls/hr Insulin Regular/NS [Myxredlin] 100 unit in 100 ml IVCONT 5 mls/hr Potassium Chloride/H20 10 meq in 100 ml IV Q1H 07/04/20 11:36 Insulin Regular, Human [Humulin R] 5 unit IVPUSH ONCE ONE 07/04/20 11:46 Meropenem 1 gm 0.9 % Sodium Chloride [Ns] 100 ml IV ONCE 07/04/20 11:52 Meropenem 1 gm IV .STK-MED ONE 07/04/20 12:30 KCl 20 mEq in 0.9 % Sodium Chl 20 meq in 1,000 ml IVCONT 100 mls/hr 07/04/20 13:03 Glucose, Whole Blood Routine 07/04/20 13:10 Basic Metabolic Panel Stat Magnesium Stat ~Lactic Acid-LAB USE ONLY Stat 07/04/20 14:00 Glucose, Whole Blood Routine 0.9 % Sodium Chloride [Ns] 1,000 ml IV 999 mls/hr 0.9 % Sodium Chloride [Ns] 1,000 ml IV 999 mls/hr 0.9 % Sodium Chloride [Ns] 500 ml IV 999 mls/hr 07/04/20 14:04 CT chest w con Stat 07/04/20 14:12 Acetaminophen [Tylenol] 975 mg PO ONCE ONE 07/04/20 14:30 Intake and Output QSHIFTE 07/04/20 14:32 cefEPime HCl [Maxipime] 1 gm 0.9 % Sodium Chloride [Ns] 50 ml IV ONCE 07/04/20 14:45 Insulin Regular/NS [Myxredlin] 100 unit in 100 ml IVCONT Per Protocol mls/hr 07/04/20 14:46 iohexoL 350 MG/ML [Omnipaque 350 MG/ML] 100 ml IV ONCE ONE 07/04/20 15:00 Piperacillin Sodium/Tazobactam [Zosyn] 3.375 gm 0.9 % Sodium Chloride [Ns] 50 ml IV Q6H 07/04/20 15:33 Drug Screen Urine Stat 07/04/20 16:00 vancomycin HCL 750 mg 0.9 % Sodium Chloride [Ns] 250 ml IV Q12H 07/04/20 16:42 cefEPime HCl [Maxipime] 1 gm IV .STK-MED ONE vancomycin HCL 750 mg IV .STK-MED ONE 07/04/20 17:25 Glucose, Whole Blood Routine 07/04/20 18:35 Glucose, Whole Blood Routine 07/04/20 20:19 Glucose, Whole Blood Routine 07/04/20 20:30 Calcium Stat Phosphorus Stat 07/04/20 20:31 Basic Metabolic Panel Stat Complete Blood Count Auto Diff Stat Magnesium Stat 07/04/20 20:32 ~Lactic Acid-LAB USE ONLY Stat 07/04/20 21:00 Famotidine/PF [Pepcid/PF] 20 mg IVPUSH BID 07/04/20 22:25 Glucose, Whole Blood Routine 07/04/20 22:28 Venous Blood Gas Stat 07/04/20 22:33 Piperacillin Sodium/Tazobactam [Zosyn] 3.375 gm IV .STK-MED ONE 07/04/20 22:37 Potassium Chloride Packet [Klor-Con Packet] 20 meq PO ONCE ONE 07/04/20 22:38 Ketorolac Tromethamine [Toradol] 15 mg IVPUSH ONCE ONE 07/04/20 23:00 Insulin Glargine,Hum.rec.anlog [Lantus] 15 unit SUBCUT BEDTIME 07/04/20 23:10 Furosemide [Lasix] 20 mg PO ONCE ONE 07/05/20 00:51 Basic Metabolic Panel Routine 07/05/20 01:42 Transfer Order Routine 07/05/20 05:13 Basic Metabolic Panel Routine Complete Blood Count Auto Diff Routine Magnesium Routine PTT [Partial Thromboplastin Time] Routine Phosphorus Routine Prothrombin Time INR Routine Venous Blood Gas Routine 07/05/20 05:29 Piperacillin Sodium/Tazobactam [Zosyn] 3.375 gm IV .STK-MED ONE vancomycin HCL 750 mg IV .STK-MED ONE 07/05/20 07:22 Glucose, Whole Blood Routine 07/05/20 08:43 Potassium Chloride Packet [Klor-Con Packet] 20 meq PO ONCE ONE 07/05/20 09:00 Insulin Glargine,Hum.rec.anlog [Lantus] 15 unit SUBCUT DAILY 07/05/20 09:17 Piperacillin Sodium/Tazobactam [Zosyn] 3.375 gm IV .STK-MED ONE 07/05/20 11:19 Glucose, Whole Blood Routine 07/05/20 15:48 Piperacillin Sodium/Tazobactam [Zosyn] 3.375 gm IV .STK-MED ONE vancomycin HCL 750 mg IV .STK-MED ONE 07/05/20 16:04 Glucose, Whole Blood Routine 07/05/20 20:06 Glucose, Whole Blood Routine 07/05/20 20:30 Piperacillin Sodium/Tazobactam [Zosyn] 3.375 gm IV .STK-MED ONE 07/06/20 02:54 Vancomycin Trough Stat 07/06/20 03:14 Piperacillin Sodium/Tazobactam [Zosyn] 3.375 gm IV .STK-MED ONE vancomycin HCL 750 mg IV .STK-MED ONE 07/06/20 04:00 vancomycin HCL 1,000 mg 0.9 % Sodium Chloride [Ns] 250 ml IV Q12H 07/06/20 04:11 vancomycin HCL 1,000 mg .ROUTE .STK-MED ONE 07/06/20 07:41 Glucose, Whole Blood Routine 07/06/20 08:37 Piperacillin Sodium/Tazobactam [Zosyn] 3.375 gm IV .STK-MED ONE 07/06/20 08:48 Basic Metabolic Panel Routine 07/06/20 11:56 Glucose, Whole Blood Routine 07/06/20 14:17 Potassium Chloride ER [Klor-con] 40 meq PO ONCE ONE 07/06/20 16:00 vancomycin HCL 750 mg vancomycin HCL 500 mg 0.9 % Sodium Chloride [Ns] 250 ml IV Q12H 07/06/20 16:39 Piperacillin Sodium/Tazobactam [Zosyn] 3.375 gm IV .STK-MED ONE 07/06/20 17:05 Glucose, Whole Blood Routine 07/06/20 17:11 vancomycin HCL 500 mg IV .STK-MED ONE 07/06/20 19:46 Glucose, Whole Blood Routine 07/06/20 20:06 Piperacillin Sodium/Tazobactam [Zosyn] 3.375 gm IV .STK-MED ONE 07/06/20 21:24 Lactic Acid Stat 07/06/20 22:15 0.9 % Sodium Chloride [Ns] 1,000 ml IVCONT 100 mls/hr 07/06/20 22:27 Complete Blood Count Auto Diff Stat 07/06/20 23:40 ~Lactic Acid-LAB USE ONLY Stat 07/07/20 04:09 Piperacillin Sodium/Tazobactam [Zosyn] 3.375 gm IV .STK-MED ONE 07/07/20 05:10 vancomycin HCL 500 mg IV .STK-MED ONE vancomycin HCL 750 mg IV .STK-MED ONE 07/07/20 06:19 Basic Metabolic Panel Routine 07/07/20 07:35 Glucose, Whole Blood Routine 07/07/20 11:00 Glucose, Whole Blood Routine 07/07/20 11:15 Piperacillin Sodium/Tazobactam [Zosyn] 3.375 gm IV .STK-MED ONE 07/07/20 15:16 Vancomycin Trough Routine 07/07/20 16:08 Glucose, Whole Blood Routine 07/07/20 16:25 Piperacillin Sodium/Tazobactam [Zosyn] 3.375 gm IV .STK-MED ONE 07/07/20 19:48 Glucose, Whole Blood Routine 07/07/20 20:49 Piperacillin Sodium/Tazobactam [Zosyn] 3.375 gm IV .STK-MED ONE 07/08/20 06:04 Piperacillin Sodium/Tazobactam [Zosyn] 3.375 gm IV .STK-MED ONE 07/08/20 06:37 Ferritin Routine IRON PROFILE Routine 07/08/20 07:49 Glucose, Whole Blood Routine 07/08/20 08:59 Hemoglobin and Hematocrit Routine 07/08/20 11:30 Piperacillin Sodium/Tazobactam [Zosyn] 3.375 gm IV .STK-MED ONE 07/08/20 11:39 Glucose, Whole Blood Routine 07/08/20 15:32 Glucose, Whole Blood Routine 07/08/20 17:04 vancomycin HCL 500 mg IV .STK-MED ONE 07/08/20 17:06 Piperacillin Sodium/Tazobactam [Zosyn] 3.375 gm IV .STK-MED ONE 07/08/20 19:37 Glucose, Whole Blood Routine 07/08/20 21:42 Piperacillin Sodium/Tazobactam [Zosyn] 3.375 gm IV .STK-MED ONE 07/09/20 03:27 Piperacillin Sodium/Tazobactam [Zosyn] 3.375 gm IV .STK-MED ONE 07/09/20 06:19 Basic Metabolic Panel Routine C Reactive Protein Routine 07/09/20 08:28 Glucose, Whole Blood Routine 07/09/20 10:30 Piperacillin Sodium/Tazobactam [Zosyn] 3.375 gm IV .STK-MED ONE 07/09/20 11:18 Glucose, Whole Blood Routine 07/09/20 14:58 Vancomycin Trough Routine 07/09/20 16:11 Piperacillin Sodium/Tazobactam [Zosyn] 3.375 gm IV .STK-MED ONE 07/09/20 16:43 Glucose, Whole Blood Routine 07/09/20 17:06 vancomycin HCL 500 mg IV .STK-MED ONE 07/09/20 20:37 Glucose, Whole Blood Routine 07/09/20 21:06 Piperacillin Sodium/Tazobactam [Zosyn] 3.375 gm IV .STK-MED ONE 07/10/20 03:30 Piperacillin Sodium/Tazobactam [Zosyn] 3.375 gm IV .STK-MED ONE 07/10/20 03:31 vancomycin HCL 1,000 mg .ROUTE .STK-MED ONE 07/10/20 06:39 BMP [Basic Metabolic Panel Fasting] Routine Complete Blood Count Auto Diff Routine 07/10/20 08:00 Glucose, Whole Blood Routine 07/10/20 11:08 Piperacillin Sodium/Tazobactam [Zosyn] 3.375 gm IV .STK-MED ONE 07/10/20 11:21 Glucose, Whole Blood Routine 07/10/20 16:37 Glucose, Whole Blood Routine 07/10/20 17:10 Piperacillin Sodium/Tazobactam [Zosyn] 3.375 gm IV .STK-MED ONE 07/10/20 18:10 vancomycin HCL 1,000 mg .ROUTE .STK-MED ONE 07/10/20 20:15 Glucose, Whole Blood Routine 07/10/20 21:58 Piperacillin Sodium/Tazobactam [Zosyn] 3.375 gm IV .STK-MED ONE 07/11/20 04:32 Piperacillin Sodium/Tazobactam [Zosyn] 3.375 gm IV .STK-MED ONE 07/11/20 04:33 vancomycin HCL 1,000 mg .ROUTE .STK-MED ONE 07/11/20 05:07 BMP [Basic Metabolic Panel Fasting] Routine Complete Blood Count Auto Diff Routine 07/11/20 07:40 Glucose, Whole Blood Routine Laboratory Last Values WBC 9.0 X10*3/uL (4.8-10.8) 07/11/20 05:07 RBC 2.84 X10*6/uL (4.20-5.50) L 07/11/20 05:07 Hgb 7.6 g/dl (12.0-16.0) L 07/11/20 05:07 Hct 24.4 % (37-47) L 07/11/20 05:07 MCV 85.9 fL (80-98) 07/11/20 05:07 MCH 26.8 pg (27.0-33.0) L 07/11/20 05:07 MCHC 31.1 g/dl (31.0-35.0) 07/11/20 05:07 RDW 14.9 % (11.0-16.0) 07/11/20 05:07 Plt Count 342 X10*3/uL (160-400) 07/11/20 05:07 MPV 11.5 fL (9.4-12.3) 07/11/20 05:07 Immature Gran % (Auto) 1.1 % (0.0-0.4) H 07/11/20 05:07 Neut % (Auto) 70.6 % (45-73) 07/11/20 05:07 Lymph % (Auto) 17.7 % (20-40) L 07/11/20 05:07 Menard % (Auto) 10.2 % (2-11) 07/11/20 05:07 Eos % (Auto) 0.3 % (0-4) 07/11/20 05:07 Baso % (Auto) 0.1 % (0-2) 07/11/20 05:07 Lymph # (Auto) 1.6 X10*3/uL (1.2-4.9) 07/11/20 05:07 Menard # (Auto) 0.9 X10*3/uL (0.1-1.2) 07/11/20 05:07 Eos # (Auto) 0.0 X10*3/uL (0.0-0.4) 07/11/20 05:07 Baso # (Auto) 0.0 X10*3/uL (0.0-0.2) 07/11/20 05:07 Abs Immat Gran (auto) 0.10 X10*3/uL (0.00-0.03) H 07/11/20 05:07 Absolute Neuts (auto) 6.3 X10*3/uL (2.0-8.3) 07/11/20 05:07 Absolute Nucleated RBC 0.000 X10*3/uL (0.0-0.012) 07/11/20 05:07 Nucleated RBC % (auto) 0.0 /100WBC (0.0-0.2) 07/11/20 05:07 Smear Tech's Comments VERIFIED 07/04/20 10:17 PT 17.2 SEC (10.8-13.0) H 07/05/20 05:13 INR 1.4 (0.9-1.1) H 07/05/20 05:13 APTT 28.9 SEC (24.1-38.0) 07/05/20 05:13 VBG pH 7.55 (7.32-7.43) H 07/05/20 05:13 VBG pCO2 25 mmhg 07/05/20 05:13 VBG pO2 43 mmhg 07/05/20 05:13 VBG HCO3 22 mmol/L 07/05/20 05:13 VBG O2 Saturation 92.0 % 07/05/20 05:13 VBG Base Excess 0.5 mmol/L 07/05/20 05:13 Sodium 136 mmol/L (135-145) 07/11/20 05:07 Potassium 3.9 mmol/l (3.3-5.1) 07/11/20 05:07 Chloride 97 mmol/L (96-108) 07/11/20 05:07 Carbon Dioxide 27 mmol/L (22-29) 07/11/20 05:07 Anion Gap 16 (12-20) 07/11/20 05:07 BUN 8 mg/dL (9-16) L 07/11/20 05:07 Creatinine 0.74 mg/dL (0.5-1.4) 07/11/20 05:07 Estim Creat Clear Calc 66.0 07/11/20 05:07 Estimated GFR > 60 07/11/20 05:07 POC Glucose 211 mg/dL (60-115) H 07/11/20 07:40 Random Glucose 295 mg/dL (60-115) H 07/09/20 06:19 Fasting Glucose 281 mg/dL (60-99) H 07/11/20 05:07 Lactic Acid 2.4 mmol/L (0.5-2.0) H* 07/06/20 21:24 Lactic Acid Fup @ 2Hr 1.9 mmol/L (0.5-2.0) 07/07/20 00:15 Lactic Acid Fup @ 4Hr 1.4 mmol/L (0.5-2.0) 07/04/20 20:32 Calcium 7.8 mg/dL (8.4-10.2) L 07/11/20 05:07 Phosphorus 1.3 mg/dL (2.7-4.5) L 07/05/20 05:13 Magnesium 1.5 mg/dL (1.6-2.6) L 07/05/20 05:13 Iron 22 mcg/dL (30-160) L 07/08/20 06:37 TIBC 170 mcg/dL (228-428) L 07/08/20 06:37 % Saturation 13 % (15-50) L 07/08/20 06:37 Unsat Iron Binding 148 ug/dL 07/08/20 06:37 Ferritin 355 ng/mL (10-250) H 07/08/20 06:37 Total Bilirubin 0.6 mg/dL (0.0-1.0) 07/04/20 10:17 Direct Bilirubin 0.4 mg/dL (0.0-0.5) 07/04/20 10:17 AST 8 U/L (5-31) 07/04/20 10:17 ALT 9 U/L (0-31) 07/04/20 10:17 Alkaline Phosphatase 118 U/L (39-117) H 07/04/20 10:17 Troponin I High Sens 6.6 ng/L (<3.5-17.0) 07/04/20 10:17 C-Reactive Protein 14.53 mg/dL (< or = 0.50) H 07/09/20 06:19 Total Protein 8.3 g/dL (6.5-8.0) H 07/04/20 10:17 Albumin 3.2 g/dL (3.5-5.0) L 07/04/20 10:17 Lipase 10 U/L (8-78) 07/04/20 10:17 Beta-Hydroxybutyrate/Acetoacetate Cancelled 07/04/20 10:17 Vancomycin Trough 22.6 mcg/mL (10.0-20.0) H 07/09/20 14:58 Urine Opiates Screen POSITIVE (Not Detect) H 07/04/20 15:33 Ur Barbiturates Screen Not Detected (Not Detect) 07/04/20 15:33 Ur Phencyclidine Scrn Not Detected (Not Detect) 07/04/20 15:33 Ur Amphetamines Screen Not Detected (Not Detect) 07/04/20 15:33 U Benzodiazepines Scrn Not Detected (Not Detect) 07/04/20 15:33 Urine Cocaine Screen POSITIVE (Not Detect) H 07/04/20 15:33 U Marijuana (THC) Screen Not Detected (Not Detect) 07/04/20 15:33 Acetone, Qual Small (Negative) H 07/04/20 10:17 Coronavirus (PCR) POSITIVE (Negative) A 07/04/20 10:24 Influenza Type A (PCR) NEGATIVE (Negative) 07/04/20 10:24 Influenza Type B (PCR) NEGATIVE (Negative) 07/04/20 10:24 RSV RNA Qual (PCR) NEGATIVE (Negative) 07/04/20 10:24 Preliminary micro results at discharge 07/06/20 21:25 Blood Culture - Preliminary Blood - Venous No growth after 48 hours. 07/06/20 21:25 Blood Culture - Preliminary Blood - Venous No growth after 48 hours. Discharge Plan Discharge Patient Disposition: Home Health Service Referrals: Lauter,Martin, ELECTRONICS TECHNICIAN [Nurse Practitioner] - 1 Week (Please call and schedule a follow up appointment within 1 week office was closed for holiday. ) Discharge Medications: New amoxicillin-pot clavulanate [Augmentin] 875-125 mg tablet 1 tab PO Q12H Qty: 42 RF: 0 doxycycline hyclate 100 mg capsule 100 mg PO BID Qty: 42 RF: 0 Continued insulin aspart U-100 [Novolog Flexpen U-100 Insulin] 100 unit/mL (3 mL) Insulin Pen 0 unit SUBCUT QIDACHS RF: 0 Flovent HFA 110 mcg/actuation Hfa Aerosol Inhaler 2 puff INHALATION BID RF: 0 methadone [Methadone Intensol] 10 mg/mL Concentrate 95 mg DAILY RF: 0 gabapentin 600 mg tablet 600 mg PO TID RF: 0 insulin degludec 100 unit/mL (3 mL) insulin pen 20 unit subcut BID RF: 0 (DME) lancets 33 gauge misc See Rx Instructions ea Not Applicable TID Qty: 100 RF: 0 cholecalciferol (vitamin D3) 50 mcg (2,000 unit) tablet 50 mcg PO DAILY RF: 0 albuterol sulfate 90 mcg/actuation HFA aerosol inhaler 2 puff PO Q4H PRN (Reason: Respiratory Distress) RF: 0 furosemide 20 mg tablet 20 mg PO QAM RF: 0 lisinopril 10 mg tablet 10 mg PO DAILY RF: 0 omeprazole 20 mg capsule,delayed release(DR/EC) 20 mg PO DAILY RF: 0 metformin 1,000 mg tablet 1,000 mg PO BIDWMEAL RF: 0 aspirin 81 mg tablet,delayed release (DR/EC) 81 mg PO DAILY RF: 0 bupropion HCl 150 mg tablet sustained-release 12 hr 150 mg PO BID RF: 0 atorvastatin 40 mg tablet 40 mg PO BEDTIME RF: 0 Discharge Orders: Discharge Order (Routine); Ordered 07/11/20 Ordered By: Neal Ordaz Diet: advance to usual diet Activity on Discharge: As tolerated Visit Report Forms: Patient Portal Discharge page Care Plan Goals: Resolve osteomyelitis Health Concerns: Osteomyelitis COVID Plan of Treatment: Continue oral antibiotics until surgery. Isolate and monitor COVID symptoms. Follow-up with vascular surgery for BKA.
[2020-07-11] MEDS: Nicotine 14 MG PATCH.TD24 TRANSDERMA (10:21)
[2020-07-11] MEDS: Gabapentin 600 MG TABLET PO (10:21)
[2020-07-11] MEDS: Aspirin Enteric Coated 81 MG TABLET.DR PO (10:21)
[2020-07-11] MEDS: Cholecalciferol (Vitamin D3) 25 MCG TABLET 50 MCG PO (10:21)
[2020-07-11] MEDS: buPROPion HCl XL 300 MG TAB.ER.24H PO (10:21)
[2020-07-11 11:21] VITALS: BP 182/84; PULSE 83; RESP 20; TEMP 37.1; O2SAT 95
[2020-07-11 11:59] LABS: Glucose, Whole Blood 234 mg/dL (60-115)
--- NOTE | 2020-07-11 12:17 | MHC.CM.PN ---
IMM 07/11/2020 Female 60 DX Covid+, RLE Osteomyelitis DC today to home with [facility]. She was active with [facility] prior to hospitalization. Referral was made, but agency declined to accept her. The Patient was notified that her prior provider is not available. Patient was provided with other options for homecare agencies. Other referrals were made. The Pt preference is, and Patient has been placed, with [facility]. Pts is providing transportation today.
--- NOTE | 2020-07-11 12:34 | W.MHC.F2F ---
Service Date Service Date: 07/11/20 Reasons for Services Homebound: Leaving the home is medically contraindicated at this time without the asist of a device and/or another person due th the listed conditions above and below. Certification: Based on the above findings, I certify that this patient is confined to the home and needs intermittent group home care, physical therapy and/or speech therapy, or continues to need occupational therapy. The patient is under my care, and I have initiated the establishment of the plan of care. The patient will be followed by a physician who will periodically review the plan of care.
== END 2020-07-11 14:55 | disposition home health service (06) | DRG 871 ==
LOC: HO.ED 14:13 → HO.ICU 17:04 → HO.IMC 07-06 16:34
PROVIDERS: Hospitalist; Internal Medicine; Physician Assistant; Admitting Provider Internal Medicine Cardiovascular Disease; Emergency Provider Emergency Medicine Emergency Medical Services; Visit Provider Internal Medicine
DX: A40.1 Sepsis due to streptococcus, group B (principal); U07.1 COVID-19; E11.10 Type 2 diabetes mellitus with ketoacidosis without coma; F11.20 Opioid dependence, uncomplicated; M86.471 Chronic osteomyelitis with draining sinus, right ankle and foot; Z86.711 Personal history of pulmonary embolism; E11.621 Type 2 diabetes mellitus with foot ulcer; L97.519 Non-pressure chronic ulcer of other part of right foot with unspecified severity; E11.51 Type 2 diabetes mellitus with diabetic peripheral angiopathy without gangrene; E11.69 Type 2 diabetes mellitus with other specified complication; J44.9 Chronic obstructive pulmonary disease, unspecified; E87.6 Hypokalemia; F17.210 Nicotine dependence, cigarettes, uncomplicated; Z71.6 Tobacco abuse counseling; Z79.82 Long term (current) use of aspirin; Z79.4 Long term (current) use of insulin; Z79.899 Other long term (current) drug therapy
CPT/HCPCS: 0241U; 36415; 71045; 71260; 74177; 78315; 80048; 80076; 80202; 80307; 82009; 82010; 82310; 82728; 82800; 82803; 82947; 83540; 83605; 83690; 83735; 84100; 84484; 85014; 85018; 85025; 85610; 85730; 86140; 87040; 87077; 87147; 87186; 93005; 94640; 94664; 96361; 96365; 96375; 99282; 99283; 99285; 99291; 99292; A9503; J0692; J1650; J1885; J2185; J2543; J3370; Q9967

== ENCOUNTER 2020-07-13 09:03 | Inpatient (IN) | payer OTHER, SELFPAY ==
[2020-07-13] VITALS (10 sets, daily range): BP systolic 142–160; BP diastolic 62–78; PULSE 69–110; RESP 19–24; TEMP 36.6–36.9; O2SAT 81–100; BMI 25.0; BMI 25.7
--- NOTE | 2020-07-13 | ECG_ITS ---
Test Reason : SOB Blood Pressure : / mmHG Vent. Rate : 096 BPM Atrial Rate : 096 BPM P-R Int : 138 ms QRS Dur : 086 ms QT Int : 378 ms P-R-T Axes : 056 012 063 degrees QTc Int : 477 ms Poor data quality Sinus rhythm with Premature supraventricular complexes Nonspecific ST and T wave abnormality Abnormal ECG When compared with ECG of 04-JUL-2020 10:08, Nonspecific T wave abnormality has replaced inverted T waves in Anterior leads T wave inversion now evident in Lateral leads Referred By: Joleen Duenas Electronically Signed By:KYAW ANGELES MD
--- NOTE | 2020-07-13 09:25 | XR_ITS ---
EXAMINATION: XR CHEST CLINICAL INFORMATION: Dyspnea. COMPARISON: Chest 07/04/2020 TECHNIQUE: Frontal view of the chest was obtained. FINDINGS: There is diffuse extensive bilateral patchy opacities most prominent and consolidative in the right lower lobe and right middle lobe. Heart size and pulmonary vascularity is normal. Subcarinal cystic changes seen in left humeral head. XR/XR chest 1V IMPRESSION: Diffuse bilateral patchy opacities new since the last study. Most prominent consolidation seen in the right lower lobe. Findings are most likely related to Covid inflammation
[2020-07-13] MEDS: Nitroglycerin 2 % Oint 1 GM Packet 1 INCH TRANSDERMA (09:26)
[2020-07-13] MEDS: Furosemide 100 MG/10 ML VIAL 60 MG IVPUSH (09:26)
[2020-07-13 09:45] LABS: ABG PCO2 43 mmhg (32-45); pH ABG 7.48 (7.35-7.45)
[2020-07-13 09:46] LABS: Blood Gas Serial # 5396; HCO3 ABG 31 mmol/l (22-26); Oxygen Saturation ABG 82.3 %
--- NOTE | 2020-07-13 09:46 | PC.NURSE ---
pt brought in by ems, 66% on ra, hands very cold, pt a&ox4. sts being covid +, test here shows covid + on 06/24/20. pt up to 88-90% on nb, skin appears dusky. pt has bl iv at this time, provider at bedside for eval. ekg completed, pt placed back on non rebreather. provider at bedside obtaining abgs, equipment available in room for potential intubation, pt educated about potential indication for such procedure. medicated per emar. resp therapy at bedside, pt placed on bipap, settings 06/10.
[2020-07-13 09:47] LABS: PO2 ABG 48 mmhg (83-108)
--- NOTE | 2020-07-13 09:55 | CT_ITS ---
EXAMINATION: CT ANGIOGRAM OF THE CHEST WITH AND WITHOUT CONTRAST (CT PULMONARY ANGIOGRAM FOR PE) CLINICAL INFORMATION: Reason for Exam dyspnea COMPARISON: None TECHNIQUE: Prior to contrast administration, noncontrast localization images were obtained. Subsequently, multidetector volumetric imaging was performed from the thoracic inlet to below the diaphragms following the administration of 80 mL Omnipaque 350 intravenous contrast. No contrast reaction reported Sagittal, coronal, and MIP oblique sagittal reformatted images were obtained on the CT workstation, uploaded to PACS, and reviewed. This CT examination was performed using dose optimization techniques as appropriate, variously including the following: *Automated exposure control *Adjustment of mA and/or kV according to patient size (this includes techniques or standardized protocols for targeted exams where dose is matched to indication/reason for exam; i.e. extremities or head) *Use of iterative reconstruction technique Total exam dose-length product 327 mGy-cm FINDINGS: QUALITY OF STUDY/CONTRAST BOLUS: Satisfactory. PULMONARY ARTERIES: No central or segmental pulmonary emboli. THORACIC AORTA: No aneurysm or dissection. LUNG: There is extensive large groundglass opacity seen in both upper lobes, lower lobes right middle lobe and lingula consistent with panlobular infiltrates likely Covid related. PLEURA: No pleural effusion or pneumothorax. MEDIASTINUM: The heart size and the great vessels are normal caliber. Central trachea and the bronchi widely patent. There is no abnormal size mediastinal or hilar lymph nodes. The thyroid lobes are symmetrical. No evidence of septal bowing or right heart strain. CHEST WALL/AXILLA: No axillary or internal mammary lymphadenopathy. There is mild asymmetry in the right breast with question mass posteriorly on axial image 27/6. OSSEOUS STRUCTURES: No lytic or sclerotic process seen. There is moderate ventral spondylosis throughout dorsal spine. UPPER ABDOMEN: Unremarkable. No reflux of contrast into the hepatic veins to suggest elevated right heart pressures. CT/CT angio chest PE protocol IMPRESSION: Diffuse panlobular infiltrates likely Covid related. No evidence of PE. No evidence of aortic dissection. VTE: negative
[2020-07-13 10:14] LABS: Basophils Percent Auto 0.1 % (0-2); Hematocrit 25.9 % (37-47); Imm Gran Abs Auto 0.26 X10*3/uL (0.00-0.03); Lymphocytes Percent Auto 3.7 % (20-40); Mean Corpuscular HGB Conc 30.9 g/dl (31.0-35.0); Mean Corpuscular Hemoglobin 26.5 pg (27.0-33.0); Mean Corpuscular Volume 85.8 fL (80-98); Mean Platelet Volume 10.5 fL (9.4-12.3); Monocytes Absolute Auto 0.7 X10*3/uL (0.1-1.2); Monocytes Percent Auto 2.5 % (2-11); Neutrophils Absolute Auto 24.6 X10*3/uL (2.0-8.3); Neutrophils Percent Auto 92.7 % (45-73); Platelet Count 414 X10*3/uL (160-400); Red Blood Count 3.02 X10*6/uL (4.20-5.50); SCAN SMEAR FLAG 1; White Blood Count 26.5 X10*3/uL (4.8-10.8)
[2020-07-13 10:17] LABS: MANUAL DIFF FLAG NO
[2020-07-13 10:42] LABS: Ethanol < 10 mg/dL
[2020-07-13 10:43] LABS: Lactic Acid 2.3 mmol/L (0.5-2.0)
[2020-07-13 10:44] LABS: Alanine Aminotransferase 8 U/L (0-31); Albumin Level 2.4 g/dL (3.5-5.0); Alkaline Phosphatase 107 U/L (39-117); Anion Gap 16 (12-20); Aspartate Amino Transferase 17 U/L (5-31); Bilirubin Direct 0.4 mg/dL (0.0-0.5); Bilirubin Total 0.7 mg/dL (0.0-1.0); Blood Urea Nitrogen 8 mg/dL (9-16); Carbon Dioxide 31 mmol/L (22-29); Chloride 95 mmol/L (96-108); Creatinine Clr Calc Pharmacy 75.8; Estimated Glomerular Filt Rate > 60; Glucose Random 157 mg/dL (60-115); Potassium 3.9 mmol/l (3.3-5.1); Sodium 138 mmol/L (135-145); Total Protein 6.4 g/dL (6.5-8.0)
[2020-07-13 10:46] LABS: B Type Natriuretic Peptide 1017 pg/mL (<100)
[2020-07-13 10:48] LABS: D Dimer 2248 NG/ML
--- NOTE | 2020-07-13 11:06 | ED_ITS ---
HPI - SOB/Dyspnea General Chief Complaint: Dyspnea Stated Complaint: cough, sob, coughing up diff colors Time Seen by Provider: 07/13/20 09:16 Source: patient and EMS Mode of arrival: EMS Limitations: other (Shortness of breath) History of Present Illness HPI Narrative: Patient comes emergency room complaining of shortness of breath. Patient states she has had shortness of breath for about a week, but it has been getting gradually worse. Patient states she tested positive for COVID on July 04. Per EMS, they were called for respiratory distress, the patient's oxygen saturation was 70% on room air. She was put on 15 L, her oxygen improved to 80%. Patient is able to speak in full sentences, but her o xygen saturation drops even further. Patient states that she has been coughing, denies fever or chills. Patient states she feels very weak, states she is very depressed, her daughter last week of an overdose. MD elicited complaint: shortness of breath Related Data Home Medications Medication Instructions Recorded Confirmed albuterol sulfate 90 mcg/actuation 2 puff PO Q4H PRN 04/24/20 07/13/20 aerosol inhaler aspirin 81 mg tablet,delayed 81 mg PO DAILY 04/24/20 07/13/20 release atorvastatin 40 mg tablet 40 mg PO BEDTIME 04/24/20 07/13/20 bupropion HCl 150 mg tablet,12 hr 150 mg PO BID 04/24/20 07/13/20 sustained-release cholecalciferol (vitamin D3) 50 50 mcg PO DAILY 04/24/20 07/13/20 mcg (2,000 unit) tablet furosemide 20 mg tablet 20 mg PO QAM 04/24/20 07/13/20 insulin degludec 100 unit/mL (3 20 unit SUBCUT BID 04/24/20 07/13/20 mL) subcutaneous pen lancets 33 gauge #100 ea 04/24/20 07/13/20 lisinopril 10 mg tablet 10 mg PO DAILY 04/24/20 07/13/20 metformin 1,000 mg tablet 1,000 mg PO BIDWMEAL 04/24/20 07/13/20 omeprazole 20 mg capsule,delayed 20 mg PO DAILY 04/24/20 07/13/20 release gabapentin 600 mg tablet 600 mg PO TID 05/03/20 07/13/20 Flovent HFA 2 puff INHALATION BID 05/28/20 07/13/20 insulin aspart U-100 [Novolog 0 unit SUBCUT QIDACHS 05/28/20 07/13/20 Flexpen U-100 Insulin] methadone [Methadone Intensol] 95 mg DAILY 05/28/20 07/13/20 Previous Rx's Medication Instructions Recorded amoxicillin-pot clavulanate 1 tab PO Q12H #42 tab 07/11/20 [Augmentin] doxycycline hyclate 100 mg PO BID #42 cap 07/11/20 Allergies Allergy/AdvReac Type Severity Reaction Status Date / Time No Known Allergies Allergy Verified 05/03/20 13:17 Review of Systems Review of Systems: Constitutional : Complaining of malaise, fatigue ENT/Mouth : No Hearing loss, No Ear Pain, No Nasal Congestion, No Sinus Pain, No Hoarseness, No sore throat, No Rhinorrhea, No Swallowing Difficulty Eyes: No Eye Pain, No Swelling, No Redness, No Foreign Body, No Discharge, No Vision Changes Cardiovascular : No Chest Pain, No SOB, No Dyspnea on Exertion, No Orthopnea, No Edema, No Palpitations Respiratory : complaining of cough, severe dyspnea Gastrointestinal : No Nausea, No Vomiting, No Diarrhea, No Constipation, No abdominal Pain, No Hematochezia, No Melena Genitourinary : no irregular bleeding, No Dysuria, No Urinary Frequency, No Hematuria, No Urinary Incontinence, No Urgency, No Flank Pain, No Urinary Flow Changes, No Hesitancy Musculoskeletal : No joint pain, No Myalgias, No Joint Swelling Skin : No Skin Lesions, No rash Neuro : No Weakness, No Numbness, No Paresthesias, No Loss of Consciousness, No Dizziness, No Headache Psych : No Anxiety/Panic, No Depression, No SI/HI/AH/VH, No Social Issues, Heme/Lymph: No Bruising, No Bleeding,No Lymphadenopathy Endocrine : No Polyuria, No Polydipsia, No Temperature Intolerance [facility] Past Medical History Medical History Chronic prescription opiate use COPD (chronic obstructive pulmonary disease) Depression Diabetes mellitus Diabetic foot infection Dyslipidemia Glaucoma Pulmonary emboli Pulmonary nodule Tobacco dependence Surgical History Cataract extraction status, left eye Cataract extraction status, right eye Hx of cholecystectomy Family History Family History Other CVA (cerebral vascular accident) Social History Social History Household Members: Significant Other Housing: Other Alcohol intake: never Smoking Status: Current some day smoker Tobacco Type: Cigarette Packs Per Day: 0.3 Cigarettes Per Day: 6.0 Years Smoked: 14 years old Smoked in Last 30 Days: Yes Second Hand Smoke Exposure: Yes Use of substances other than those prescribed or required for medical reasons: No Substance Use Type: Crack/Cocaine and Heroin Advance Directives: No Advance Directives Information Provided: No service: Yes (hx on methadone) Current occupational status: unemployed Physical Exam Vital Signs: Vital Signs: Last Vital Signs Temp 98.4 F 07/13/20 16:26 Pulse 77 07/13/20 16:26 Resp 22 H 07/13/20 16:26 BP 143/78 H 07/13/20 16:26 Pulse Ox 95 07/13/20 16:26 Body Mass Index 25.0 Appearance: Alert. Winston x3, in moderate to severe respiratory distress Eyes: Pupils equal, round and reactive to light. ENT: Pharynx normal. Neck: Normal inspection. Neck supple. No lymph nodes noted. No crepitus CVS: Normal heart rate and rhythm. Pulses normal. Normal S1 and S2 Respiratory: Moderate to severe respiratory distress, bilateral crackles, no wheezing Abdomen: Soft and nontender. No rigidity. No distention. good BS x4 Skin: Skin warm and dry. Normal skin color. Normal skin turgor. Extremities: No lower extremity edema. No lower extremity edema. No Lace rations. No Rash Neuro: Oriented X 3. No motor deficit. No sensory deficit. Moving all extermities. No slurred speech. Course Course Course Narrative: At this time, it is known that the patient has COVID-19, however she also presents with a clinical presentation likely being CHF exacerbation. Patient has no history of CHF. Patient also has history of pulmonary embolism, she has been off Xarelto. Chest CT for PE protocol pending. Patient's oxygen saturation is 80% on 15 L, however patient is breathing comfortably. At this time, patient will be started on BiPAP, and being treated as well for a possible new CHF exacerbation, pts BNP is 1017 which is new for her. Patient on BiPAP, requiring FiO2 of 100, maintaining oxygen saturation of 94%. I discussed with the patient that in the event that she decompensates, we would have to intubate her, patient agrees with plan. Currently patient remains on BiPAP, FiO2 of 70, oxygen saturation 91%. Patient cannot tolerate being off of BiPAP, patient's oxygen saturation drops to the mid 70s on 15 L on a non-rebreather. At this time, sepsis is not suspected, patient's lactic acid likely secondary to prolong hypoxia. Patient may also have a new onset CHF I discussed with the hospitalist that the patient's current troponin is 512, patient has no chest pain, oxygen saturation is 94% on high-flow, EKG has no acute changes Patient is already admitted to the hospitalist, sign-out given to Dr. Holland MDM - SOB/Dyspnea Lab Data Result diagrams: 07/13/20 10:03 07/13/20 10:03 Labs: Lab Results 07/13/20 07/13/20 07/13/20 Range/Units 09:41 10:03 10:03 WBC 26.5 H (4.8-10.8) X10*3/uL RBC 3.02 L (4.20-5.50) X10*6/uL Hgb 8.0 L (12.0-16.0) g/dl Hct 25.9 L (37-47) % MCV 85.8 (80-98) fL MCH 26.5 L (27.0-33.0) pg MCHC 30.9 L (31.0-35.0) g/dl RDW 15.0 (11.0-16.0) % Plt Count 414 H (160-400) X10*3/uL MPV 10.5 (9.4-12.3) fL Immature Gran % (Auto) 1.0 H (0.0-0.4) % Neut % (Auto) 92.7 H (45-73) % Lymph % (Auto) 3.7 L (20-40) % [place] % (Auto) 2.5 (2-11) % Eos % (Auto) 0.0 (0-4) % Baso % (Auto) 0.1 (0-2) % Lymph # (Auto) 1.0 L (1.2-4.9) X10*3/uL [place] # (Auto) 0.7 (0.1-1.2) X10*3/uL Eos # (Auto) 0.0 (0.0-0.4) X10*3/uL Baso # (Auto) 0.0 (0.0-0.2) X10*3/uL Abs Immat Gran (auto) 0.26 H (0.00-0.03) X10*3/uL Absolute Neuts (auto) 24.6 H (2.0-8.3) X10*3/uL Absolute Nucleated RBC 0.000 (0.0-0.012) X10*3/uL Nucleated RBC % (auto) 0.0 (0.0-0.2) /100WBC D-Dimer NG/ML ABG pH 7.48 H (7.35-7.45) ABG pCO2 43 (32-45) mmhg ABG pO2 48 L* (83-108) mmhg ABG HCO3 31 H (22-26) mmol/l ABG O2 Saturation 82.3 % ABG Base Excess 7.0 Oxygen Given 9-15 L Sodium 138 (135-145) mmol/L Potassium 3.9 (3.3-5.1) mmol/l Chloride 95 L (96-108) mmol/L Carbon Dioxide 31 H (22-29) mmol/L Anion Gap 16 (12-20) BUN 8 L (9-16) mg/dL Creatinine 0.71 (0.5-1.4) mg/dL Estim Creat Clear Calc 75.8 Estimated GFR > 60 Random Glucose 157 H D (60-115) mg/dL Lactic Acid (0.5-2.0) mmol/L Lactic Acid Fup @ 2Hr (0.5-2.0) mmol/L Calcium 8.0 L (8.4-10.2) mg/dL Ferritin (10-250) ng/mL Total Bilirubin 0.7 (0.0-1.0) mg/dL Direct Bilirubin 0.4 (0.0-0.5) mg/dL AST 17 D (5-31) U/L ALT 8 (0-31) U/L Alkaline Phosphatase 107 (39-117) U/L Troponin I High Sens (<3.5-17.0) ng/L B-Natriuretic Peptide (<100) pg/mL Total Protein 6.4 L D (6.5-8.0) g/dL Albumin 2.4 L D (3.5-5.0) g/dL Procalcitonin ng/mL Urine Opiates Screen (Not Detect) Ur Barbiturates Screen (Not Detect) Ur Phencyclidine Scrn (Not Detect) Ur Amphetamines Screen (Not Detect) U Benzodiazepines Scrn (Not Detect) Urine Cocaine Screen (Not Detect) U Marijuana (THC) Screen (Not Detect) Ethyl Alcohol mg/dL Coronavirus (PCR) (Negative) Influenza Type A (PCR) (Negative) Influenza Type B (PCR) (Negative) RSV RNA Qual (PCR) (Negative) 07/13/20 07/13/20 07/13/20 Range/Units 10:03 10:03 10:03 WBC (4.8-10.8) X10*3/uL RBC (4.20-5.50) X10*6/uL Hgb (12.0-16.0) g/dl Hct (37-47) % MCV (80-98) fL MCH (27.0-33.0) pg MCHC (31.0-35.0) g/dl RDW (11.0-16.0) % Plt Count (160-400) X10*3/uL MPV (9.4-12.3) fL Immature Gran % (Auto) (0.0-0.4) % Neut % (Auto) (45-73) % Lymph % (Auto) (20-40) % [place] % (Auto) (2-11) % Eos % (Auto) (0-4) % Baso % (Auto) (0-2) % Lymph # (Auto) (1.2-4.9) X10*3/uL [place] # (Auto) (0.1-1.2) X10*3/uL Eos # (Auto) (0.0-0.4) X10*3/uL Baso # (Auto) (0.0-0.2) X10*3/uL Abs Immat Gran (auto) (0.00-0.03) X10*3/uL Absolute Neuts (auto) (2.0-8.3) X10*3/uL Absolute Nucleated RBC (0.0-0.012) X10*3/uL Nucleated RBC % (auto) (0.0-0.2) /100WBC D-Dimer 2248 NG/ML ABG pH (7.35-7.45) ABG pCO2 (32-45) mmhg ABG pO2 (83-108) mmhg ABG HCO3 (22-26) mmol/l ABG O2 Saturation % ABG Base Excess Oxygen Given Sodium (135-145) mmol/L Potassium (3.3-5.1) mmol/l Chloride (96-108) mmol/L Carbon Dioxide (22-29) mmol/L Anion Gap (12-20) BUN (9-16) mg/dL Creatinine (0.5-1.4) mg/dL Estim Creat Clear Calc Estimated GFR Random Glucose (60-115) mg/dL Lactic Acid 2.3 H* (0.5-2.0) mmol/L Lactic Acid Fup @ 2Hr (0.5-2.0) mmol/L Calcium (8.4-10.2) mg/dL Ferritin (10-250) ng/mL Total Bilirubin (0.0-1.0) mg/dL Direct Bilirubin (0.0-0.5) mg/dL AST (5-31) U/L ALT (0-31) U/L Alkaline Phosphatase (39-117) U/L Troponin I High Sens (<3.5-17.0) ng/L B-Natriuretic Peptide 1017 H (<100) pg/mL Total Protein (6.5-8.0) g/dL Albumin (3.5-5.0) g/dL Procalcitonin ng/mL Urine Opiates Screen (Not Detect) Ur Barbiturates Screen (Not Detect) Ur Phencyclidine Scrn (Not Detect) Ur Amphetamines Screen (Not Detect) U Benzodiazepines Scrn (Not Detect) Urine Cocaine Screen (Not Detect) U Marijuana (THC) Screen (Not Detect) Ethyl Alcohol mg/dL Coronavirus (PCR) (Negative) Influenza Type A (PCR) (Negative) Influenza Type B (PCR) (Negative) RSV RNA Qual (PCR) (Negative) 0107/13/20 07/13/20 Range/Units 10:03 11:24 11:24 WBC (4.8-10.8) X10*3/uL RBC (4.20-5.50) X10*6/uL Hgb (12.0-16.0) g/dl Hct (37-47) % MCV (80-98) fL MCH (27.0-33.0) pg MCHC (31.0-35.0) g/dl RDW (11.0-16.0) % Plt Count (160-400) X10*3/uL MPV (9.4-12.3) fL Immature Gran % (Auto) (0.0-0.4) % Neut % (Auto) (45-73) % Lymph % (Auto) (20-40) % [place] % (Auto) (2-11) % Eos % (Auto) (0-4) % Baso % (Auto) (0-2) % Lymph # (Auto) (1.2-4.9) X10*3/uL [place] # (Auto) (0.1-1.2) X10*3/uL Eos # (Auto) (0.0-0.4) X10*3/uL Baso # (Auto) (0.0-0.2) X10*3/uL Abs Immat Gran (auto) (0.00-0.03) X10*3/uL Absolute Neuts (auto) (2.0-8.3) X10*3/uL Absolute Nucleated RBC (0.0-0.012) X10*3/uL Nucleated RBC % (auto) (0.0-0.2) /100WBC D-Dimer NG/ML ABG pH (7.35-7.45) ABG pCO2 (32-45) mmhg ABG pO2 (83-108) mmhg ABG HCO3 (22-26) mmol/l ABG O2 Saturation % ABG Base Excess Oxygen Given Sodium (135-145) mmol/L Potassium (3.3-5.1) mmol/l Chloride (96-108) mmol/L Carbon Dioxide (22-29) mmol/L Anion Gap (12-20) BUN (9-16) mg/dL Creatinine (0.5-1.4) mg/dL Estim Creat Clear Calc Estimated GFR Random Glucose (60-115) mg/dL Lactic Acid (0.5-2.0) mmol/L Lactic Acid Fup @ 2Hr (0.5-2.0) mmol/L Calcium (8.4-10.2) mg/dL Ferritin 918 H (10-250) ng/mL Total Bilirubin (0.0-1.0) mg/dL Direct Bilirubin (0.0-0.5) mg/dL AST (5-31) U/L ALT (0-31) U/L Alkaline Phosphatase (39-117) U/L Troponin I High Sens (<3.5-17.0) ng/L B-Natriuretic Peptide (<100) pg/mL Total Protein (6.5-8.0) g/dL Albumin (3.5-5.0) g/dL Procalcitonin 0.41 ng/mL Urine Opiates Screen (Not Detect) Ur Barbiturates Screen (Not Detect) Ur Phencyclidine Scrn (Not Detect) Ur Amphetamines Screen (Not Detect) U Benzodiazepines Scrn (Not Detect) Urine Cocaine Screen (Not Detect) U Marijuana (THC) Screen (Not Detect) Ethyl Alcohol < 10 mg/dL Coronavirus (PCR) (Negative) Influenza Type A (PCR) (Negative) Influenza Type B (PCR) (Negative) RSV RNA Qual (PCR) (Negative) 07/13/20 07/13/20 07/13/20 Range/Units 11:24 13:07 13:07 WBC (4.8-10.8) X10*3/uL RBC (4.20-5.50) X10*6/uL Hgb (12.0-16.0) g/dl Hct (37-47) % MCV (80-98) fL MCH (27.0-33.0) pg MCHC (31.0-35.0) g/dl RDW (11.0-16.0) % Plt Count (160-400) X10*3/uL MPV (9.4-12.3) fL Immature Gran % (Auto) (0.0-0.4) % Neut % (Auto) (45-73) % Lymph % (Auto) (20-40) % [place] % (Auto) (2-11) % Eos % (Auto) (0-4) % Baso % (Auto) (0-2) % Lymph # (Auto) (1.2-4.9) X10*3/uL [place] # (Auto) (0.1-1.2) X10*3/uL Eos # (Auto) (0.0-0.4) X10*3/uL Baso # (Auto) (0.0-0.2) X10*3/uL Abs Immat Gran (auto) (0.00-0.03) X10*3/uL Absolute Neuts (auto) (2.0-8.3) X10*3/uL Absolute Nucleated RBC (0.0-0.012) X10*3/uL Nucleated RBC % (auto) (0.0-0.2) /100WBC D-Dimer NG/ML ABG pH (7.35-7.45) ABG pCO2 (32-45) mmhg ABG pO2 (83-108) mmhg ABG HCO3 (22-26) mmol/l ABG O2 Saturation % ABG Base Excess Oxygen Given Sodium (135-145) mmol/L Potassium (3.3-5.1) mmol/l Chloride (96-108) mmol/L Carbon Dioxide (22-29) mmol/L Anion Gap (12-20) BUN (9-16) mg/dL Creatinine (0.5-1.4) mg/dL Estim Creat Clear Calc Estimated GFR Random Glucose (60-115) mg/dL Lactic Acid (0.5-2.0) mmol/L Lactic Acid Fup @ 2Hr 1.4 (0.5-2.0) mmol/L Calcium (8.4-10.2) mg/dL Ferritin (10-250) ng/mL Total Bilirubin (0.0-1.0) mg/dL Direct Bilirubin (0.0-0.5) mg/dL AST (5-31) U/L ALT (0-31) U/L Alkaline Phosphatase (39-117) U/L Troponin I High Sens 512.5 H D (<3.5-17.0) ng/L B-Natriuretic Peptide (<100) pg/mL Total Protein (6.5-8.0) g/dL Albumin (3.5-5.0) g/dL Procalcitonin ng/mL Urine Opiates Screen (Not Detect) Ur Barbiturates Screen (Not Detect) Ur Phencyclidine Scrn (Not Detect) Ur Amphetamines Screen (Not Detect) U Benzodiazepines Scrn (Not Detect) Urine Cocaine Screen (Not Detect) U Marijuana (THC) Screen (Not Detect) Ethyl Alcohol mg/dL Coronavirus (PCR) POSITIVE A (Negative) Influenza Type A (PCR) NEGATIVE (Negative) Influenza Type B (PCR) NEGATIVE (Negative) RSV RNA Qual (PCR) NEGATIVE (Negative) 07/13/20 Range/Units 13:07 WBC (4.8-10.8) X10*3/uL RBC (4.20-5.50) X10*6/uL Hgb (12.0-16.0) g/dl Hct (37-47) % MCV (80-98) fL MCH (27.0-33.0) pg MCHC (31.0-35.0) g/dl RDW (11.0-16.0) % Plt Count (160-400) X10*3/uL MPV (9.4-12.3) fL Immature Gran % (Auto) (0.0-0.4) % Neut % (Auto) (45-73) % Lymph % (Auto) (20-40) % [place] % (Auto) (2-11) % Eos % (Auto) (0-4) % Baso % (Auto) (0-2) % Lymph # (Auto) (1.2-4.9) X10*3/uL [place] # (Auto) (0.1-1.2) X10*3/uL Eos # (Auto) (0.0-0.4) X10*3/uL Baso # (Auto) (0.0-0.2) X10*3/uL Abs Immat Gran (auto) (0.00-0.03) X10*3/uL Absolute Neuts (auto) (2.0-8.3) X10*3/uL Absolute Nucleated RBC (0.0-0.012) X10*3/uL Nucleated RBC % (auto) (0.0-0.2) /100WBC D-Dimer NG/ML ABG pH (7.35-7.45) ABG pCO2 (32-45) mmhg ABG pO2 (83-108) mmhg ABG HCO3 (22-26) mmol/l ABG O2 Saturation % ABG Base Excess Oxygen Given Sodium (135-145) mmol/L Potassium (3.3-5.1) mmol/l Chloride (96-108) mmol/L Carbon Dioxide (22-29) mmol/L Anion Gap (12-20) BUN (9-16) mg/dL Creatinine (0.5-1.4) mg/dL Estim Creat Clear Calc Estimated GFR Random Glucose (60-115) mg/dL Lactic Acid (0.5-2.0) mmol/L Lactic Acid Fup @ 2Hr (0.5-2.0) mmol/L Calcium (8.4-10.2) mg/dL Ferritin (10-250) ng/mL Total Bilirubin (0.0-1.0) mg/dL Direct Bilirubin (0.0-0.5) mg/dL AST (5-31) U/L ALT (0-31) U/L Alkaline Phosphatase (39-117) U/L Troponin I High Sens (<3.5-17.0) ng/L B-Natriuretic Peptide (<100) pg/mL Total Protein (6.5-8.0) g/dL Albumin (3.5-5.0) g/dL Procalcitonin ng/mL Urine Opiates Screen POSITIVE H (Not Detect) Ur Barbiturates Screen Not Detected (Not Detect) Ur Phencyclidine Scrn Not Detected (Not Detect) Ur Amphetamines Screen Not Detected (Not Detect) U Benzodiazepines Scrn Not Detected (Not Detect) Urine Cocaine Screen POSITIVE H (Not Detect) U Marijuana (THC) Screen Not Detected (Not Detect) Ethyl Alcohol mg/dL Coronavirus (PCR) (Negative) Influenza Type A (PCR) (Negative) Influenza Type B (PCR) (Negative) RSV RNA Qual (PCR) (Negative) Imaging Data PE CTA: Radiologist's impression: QUALITY OF STUDY/CONTRAST BOLUS: Satisfactory. PULMONARY ARTERIES: No central or segmental pulmonary emboli. THORACIC AORTA: No aneurysm or dissection. LUNG: There is extensive large groundglass opacity seen in both upper lobes, lower lobes right middle lobe and lingula consistent with panlobular infiltrates likely Covid related. PLEURA: No pleural effusion or pneumothorax. MEDIASTINUM: The heart size and the great vessels are normal caliber. Central trachea and the bronchi widely patent. There is no abnormal size mediastinal or hilar lymph nodes. The thyroid lobes are symmetrical. No evidence of septal bowing or right heart strain. CHEST WALL/AXILLA: No axillary or internal mammary lymphadenopathy. There is mild asymmetry in the right breast with question mass posteriorly on axial image 27/6. OSSEOUS STRUCTURES: No lytic or sclerotic process seen. There is moderate ventral spondylosis throughout dorsal spine. UPPER ABDOMEN: Unremarkable. No reflux of contrast into the hepatic veins to suggest elevated right heart pressures. CT/CT angio chest PE protocol IMPRESSION: Diffuse panlobular infiltrates likely Covid related. No evidence of PE. No evidence of aortic dissection. VTE: negative ECG Data Attestation: I personally reviewed and interpreted this ECG as follows: (EKG 1: Heart rate 96, sinus rhythm, nonspecific ST segment changes, poor quality EKG. EKG 2: Normal sinus rhythm, QTC 486, no ST segment depressions or elevations, nonspecific T-wave inversions in lead III) Discharge Plan Discharge Clinical Impression: Pneumonia due to COVID-19 virus, New onset of congestive heart failure Patient Disposition: Admitted As Inpatient
[2020-07-13] MEDS: iohexoL 350 MG/ML 100 ML INFUS..BTL IV (11:16)
[2020-07-13] MEDS: Piperacillin Sodium/Tazobactam 3.375 GM in 0.9 % Sodium Chloride 50 ML IV (11:34)
--- NOTE | 2020-07-13 11:52 | PC.NURSE ---
blood cultures obtained and sent, medicated per emar. alert to verbal stimuli. provider at bedside, lower fio2 requirements on bipap which pt has been tolerating. wctm.
--- NOTE | 2020-07-13 12:04 | PC.NURSE ---
sterile process coordinator at bedside, lowered fio2 to 60%
[2020-07-13] MEDS: dexAMETHasone sod phosphate 4 MG/ML VIAL 6 MG IVPUSH (12:05)
[2020-07-13 12:08] LABS: Reflex Lactate? Lactic Acid Added
[2020-07-13 12:20] LABS: Procalcitonin 0.41 ng/mL
[2020-07-13 12:40] LABS: Influenza A PCR NEGATIVE (Negative); Influenza B PCR NEGATIVE (Negative); Resp Syncy Virus RNA Qual PCR NEGATIVE (Negative)
[2020-07-13 12:49] LABS: SARS COV2 PCR INHOUSE POSITIVE (Negative)
--- NOTE | 2020-07-13 13:09 | P.PNCC_ITS ---
Critical Care Event Note Summary Code activated: No Narrative: 60-year-old lady with underlying COPD, diastolic dysfunction, diabetes mellitus, hypertension, recent COVID-19 diagnosis being evaluated for admission secondary to acute hypoxic respiratory failure. Upon arrival to ER patient complained of worsening dyspnea over the last week and was noted to be hypoxemic on room air initially put on BiPAP, then titrated to CPAP, and to high-flow nasal cannula. She test positive for COVID on July 04. He will BNP noted to be significantly elevated. Her CT chest showed bilateral ground- glass infiltrate which can be eyes related to COVID, congestive heart failure, combination of post. She was started on diuresis. Since she can maintain her oxygenation on high-flow nasal cannula and has no evidence of CO2 retention at this time she does not require intensive care unit level of monitoring for hypoxia. Critical Care Time (minutes): 0
[2020-07-13 13:20] LABS: Ferritin 918 ng/mL (10-250)
[2020-07-13 13:56] LABS: Amphetamine Screen Urine Not Detected (Not Detect); Barbiturates, Urine Not Detected (Not Detect); Benzodiazepines Screen Urine Not Detected (Not Detect); Cannabinoid Screen Urine Not Detected (Not Detect); Cocaine Screen Urine POSITIVE (Not Detect); Opiate Screen Urine POSITIVE (Not Detect); Phencyclidine Screen Urine Not Detected (Not Detect)
[2020-07-13 14:02] LABS: ~Lactic Acid-LAB USE ONLY 1.4 mmol/L (0.5-2.0)
--- NOTE | 2020-07-13 14:03 | PM.EVENT ---
Event Note Date of Service: 07/13/20 Event Note: Patient seen and examined independently and was present during benjamin portion of E/M service. Agree with midlevel's history, physical, assessment, and plan. 60F presented with sob acute hypoxic respiratory failure and viral sepsis due to covid decadron o2 OM/DFU continue abx, will need bka once resp symptoms resolved
--- NOTE | 2020-07-13 14:05 | P.HPHOSP_ITS ---
History of Present Illness Date of Service: 07/13/20 <MARTY Escoto - Last Filed: 07/13/20 15:34> Chief Complaint: Shortness of breath <MARTY Escoto - Last Filed: 07/13/20 15:34> This is a 60-year-old female with history of diabetes and recent admission for sepsis secondary to diabetic foot ulcer/osteomyelitis/group B strep bacteremia, DKA and asymptomatic covid infection who presents the emergency department with shortness of breath. She was discharged home with Augmentin and doxy 5 colon with plan for BKA in the future. At that time she was asymptomatic with COVID. She now returns with shortness of breath starting last night. She was initially placed on BiPAP due to severe hypoxia. She has been able to be weaned down to high-flow oxygen. Lab work revealed leukocytosis of 26.5. Anemia was at baseline. Lactic acid was 2.3. BNP was 1017 and troponin 512.5. She was evaluated by ICU anesthesiologists' assistant who felt that she could be managed on the medical service. She was treated with a dose of IV Zosyn, IV Lasix, IV Decadron and a decision was made to admit her for further management. <MARTY Escoto - Last Filed: 07/13/20 15:34> Review of Systems Review of Systems: Yes all other systems are reviewed and are negative <MARTY Escoto - Last Filed: 07/13/20 15:34> Constitutional: Constitutional: Denies chills and Denies fever(s) <MARTY Escoto - Last Filed: 07/13/20 15:34> Cardiovascular: Cardiovascular: Denies chest pain and Reports dyspnea <MARTY Escoto - Last Filed: 07/13/20 15:34> Respiratory: Respiratory: Denies cough and Reports dyspnea <MARTY Escoto Last Filed: 07/13/20 15:34> Gastrointestinal: Gastrointestinal: Denies abdominal pain <MARTY Escoto Last Filed: 07/13/20 15:34> [facility] Medical History: Medical History Chronic prescription opiate use COPD (chronic obstructive pulmonary disease) Depression Diabetes mellitus Diabetic foot infection Dyslipidemia Glaucoma Pulmonary emboli Pulmonary nodule Tobacco dependence <MARTY Escoto - Last Filed: 07/13/20 15:34> Functional capacity: independent ambulation <MARTY Escoto - Last Filed: 07/13/20 15:34> Family History: Family History Other CVA (cerebral vascular accident) <MARTY Escoto - Last Filed: 07/13/20 15:34> Family history: reviewed and not pertinent <MARTY Escoto - Last Filed: 07/13/20 15:34> Surgical History: Surgical History Cataract extraction status, left eye Cataract extraction status, right eye Hx of cholecystectomy <MARTY Escoto - Last Filed: 07/13/20 15:34> Social History: Social History Household Members: Significant Other Housing: Other Alcohol intake: never Smoking Status: Current some day smoker Tobacco Type: Cigarette Packs Per Day: 0.3 Cigarettes Per Day: 6.0 Years Smoked: 14 years old Smoked in Last 30 Days: Yes Second Hand Smoke Exposure: Yes Use of substances other than those prescribed or required for medical reasons: No Substance Use Type: Crack/Cocaine and Heroin Advance Directives: No Advance Directives Information Provided: No service: Yes (hx on methadone) Current occupational status: unemployed <MARTY Escoto - Last Filed: 07/13/20 15:34> Meds Allergies/Adverse reactions: Allergies Allergy/AdvReac Type Severity Reaction Status Date / Time No Known Allergies Allergy Verified 05/03/20 13:17 <MARTY Escoto - Last Filed: 07/13/20 15:34> Home medications: Home Medications Medication Instructions Recorded Confirmed Type albuterol sulfate 90 mcg/actuation 2 puff PO Q4H PRN 04/24/20 07/13/20 History aerosol inhaler aspirin 81 mg tablet,delayed 81 mg PO DAILY 04/24/20 07/13/20 History release atorvastatin 40 mg tablet 40 mg PO BEDTIME 04/24/20 07/13/20 History bupropion HCl 150 mg tablet,12 hr 150 mg PO BID 04/24/20 07/13/20 History sustained-release cholecalciferol (vitamin D3) 50 50 mcg PO DAILY 04/24/20 07/13/20 History mcg (2,000 unit) tablet furosemide 20 mg tablet 20 mg PO QAM 04/24/20 07/13/20 History insulin degludec 100 unit/mL (3 20 unit SUBCUT BID 04/24/20 07/13/20 History mL) subcutaneous pen lancets 33 gauge #100 ea 04/24/20 07/13/20 History lisinopril 10 mg tablet 10 mg PO DAILY 04/24/20 07/13/20 History metformin 1,000 mg tablet 1,000 mg PO BIDWMEAL 04/24/20 07/13/20 History omeprazole 20 mg capsule,delayed 20 mg PO DAILY 04/24/20 07/13/20 History release gabapentin 600 mg tablet 600 mg PO TID 05/03/20 07/13/20 History Flovent HFA 2 puff INHALATION BID 05/28/20 07/13/20 History insulin aspart U-100 [Novolog 0 unit SUBCUT QIDACHS 05/28/20 07/13/20 History Flexpen U-100 Insulin] methadone [Methadone Intensol] 95 mg DAILY 05/28/20 07/13/20 History <MARTY Escoto - Last Filed: 07/13/20 15:34> Physical Exam Vital Signs and Narrative: Vital Signs: Last Vital Signs Temp 98.4 F 07/13/20 09:18 Pulse 97 07/13/20 09:18 Resp 23 H 07/13/20 13:04 BP 142/74 H 07/13/20 09:18 Pulse Ox 84 L 07/13/20 09:18 Body Mass Index 25.0 <MARTY Escoto - Last Filed: 07/13/20 15:34> Const: General: alert and awake <MARTY Escoto - Last Filed: 07/13/20 15:34> Nutritional Appearance: well nourished <MARTY Escoto - Last Filed: 07/13/20 15:34> Orientation/consciousness: patient oriented x3 <MARTY Escoto - Last Filed: 07/13/20 15:34> HENMT: Head: Yes normocephalic and Yes atraumatic <MARTY Escoto - Last Filed: 07/13/20 15:34> Eyes: Sclerae: sclerae normal <MARTY Escoto - Last Filed: 07/13/20 15:34> Chest: Chest palpation & inspection: normal inspection of the chest <MARTY Escoto - Last Filed: 07/13/20 15:34> Resp: Effort & Inspection: tachypneic <MARTY Escoto - Last Filed: 07/13/20 15:34> Cardio: Rate: regular rate <MARTY Escoto - Last Filed: 07/13/20 15:34> Rhythm: regular rhythm <MARTY Escoto - Last Filed: 07/13/20 15:34> GI: Palpation (GI): Soft to palpation and nontender <MARTY Escoto - Last Filed: 07/13/20 15:34> Skin: General skin exam: no rashes or lesions noted <MARTY Escoto - Last Filed: 07/13/20 15:34> Neuro: General: patient oriented x3 <MARTY Escoto - Last Filed: 07/13/20 15:34> Cranial nerves: Yes CN's II-XII intact bilaterally and Yes Bilaterally intact EOM present <MARTY Escoto - Last Filed: 07/13/20 15:34> Extrem: Other: Right foot with mild erythema, clean dressing <MARTY Escoto - Last Filed: 07/13/20 15:34> Results Labs CBC and Chem 7: : 07/13/20 10:03 07/13/20 10:03 <MARTY Escoto - Last Filed: 07/13/20 15:34> Labs: Laboratory Results - last 24 hr 07/13/20 07/13/20 07/13/20 09:41 10:03 10:03 MCV 85.8 MCH 26.5 L MCHC 30.9 L RDW 15.0 Plt Count 414 H MPV 10.5 Immature Gran % (Auto) 1.0 H Neut % (Auto) 92.7 H Lymph % (Auto) 3.7 L [place] % (Auto) 2.5 Eos % (Auto) 0.0 Baso % (Auto) 0.1 Lymph # (Auto) 1.0 L [place] # (Auto) 0.7 Eos # (Auto) 0.0 Baso # (Auto) 0.0 Abs Immat Gran (auto) 0.26 H Absolute Neuts (auto) 24.6 H Absolute Nucleated RBC 0.000 Nucleated RBC % (auto) 0.0 D-Dimer ABG pH 7.48 H ABG pCO2 43 ABG pO2 48 L* ABG HCO3 31 H ABG O2 Saturation 82.3 ABG Base Excess 7.0 Oxygen Given 9-15 L Anion Gap 16 Estim Creat Clear Calc 75.8 Estimated GFR > 60 Random Glucose 157 H D Lactic Acid Lactic Acid Fup @ 2Hr Calcium 8.0 L Ferritin Total Bilirubin 0.7 Direct Bilirubin 0.4 AST 17 D ALT 8 Alkaline Phosphatase 107 B-Natriuretic Peptide Total Protein 6.4 L D Albumin 2.4 L D Procalcitonin Urine Opiates Screen Ur Barbiturates Screen Ur Phencyclidine Scrn Ur Amphetamines Screen U Benzodiazepines Scrn Urine Cocaine Screen U Marijuana (THC) Screen Ethyl Alcohol Coronavirus (PCR) Influenza Type A (PCR) Influenza Type B (PCR) RSV RNA Qual (PCR) 07/13/20 07/13/20 07/13/20 10:03 10:03 10:03 MCV MCH MCHC RDW Plt Count MPV Immature Gran % (Auto) Neut % (Auto) Lymph % (Auto) [place] % (Auto) Eos % (Auto) Baso % (Auto) Lymph # (Auto) [place] # (Auto) Eos # (Auto) Baso # (Auto) Abs Immat Gran (auto) Absolute Neuts (auto) Absolute Nucleated RBC Nucleated RBC % (auto) D-Dimer 2248 ABG pH ABG pCO2 ABG pO2 ABG HCO3 ABG O2 Saturation ABG Base Excess Oxygen Given Anion Gap Estim Creat Clear Calc Estimated GFR Random Glucose Lactic Acid 2.3 H* Lactic Acid Fup @ 2Hr Calcium Ferritin Total Bilirubin Direct Bilirubin AST ALT Alkaline Phosphatase B-Natriuretic Peptide 1017 H Total Protein Albumin Procalcitonin Urine Opiates Screen Ur Barbiturates Screen Ur Phencyclidine Scrn Ur Amphetamines Screen U Benzodiazepines Scrn Urine Cocaine Screen U Marijuana (THC) Screen Ethyl Alcohol Coronavirus (PCR) Influenza Type A (PCR) Influenza Type B (PCR) RSV RNA Qual (PCR) 07/13/20 07/13/20 07/13/20 10:03 11:24 11:24 MCV MCH MCHC RDW Plt Count MPV Immature Gran % (Auto) Neut % (Auto) Lymph % (Auto) [place] % (Auto) Eos % (Auto) Baso % (Auto) Lymph # (Auto) [place] # (Auto) Eos # (Auto) Baso # (Auto) Abs Immat Gran (auto) Absolute Neuts (auto) Absolute Nucleated RBC Nucleated RBC % (auto) D-Dimer ABG pH ABG pCO2 ABG pO2 ABG HCO3 ABG O2 Saturation ABG Base Excess Oxygen Given Anion Gap Estim Creat Clear Calc Estimated GFR Random Glucose Lactic Acid Lactic Acid Fup @ 2Hr Calcium Ferritin 918 H Total Bilirubin Direct Bilirubin AST ALT Alkaline Phosphatase B-Natriuretic Peptide Total Protein Albumin Procalcitonin 0.41 Urine Opiates Screen Ur Barbiturates Screen Ur Phencyclidine Scrn Ur Amphetamines Screen U Benzodiazepines Scrn Urine Cocaine Screen U Marijuana (THC) Screen Ethyl Alcohol < 10 Coronavirus (PCR) Influenza Type A (PCR) Influenza Type B (PCR) RSV RNA Qual (PCR) 07/13/20 07/13/20 07/13/20 11:24 13:07 13:07 MCV MCH MCHC RDW Plt Count MPV Immature Gran % (Auto) Neut % (Auto) Lymph % (Auto) [place] % (Auto) Eos % (Auto) Baso % (Auto) Lymph # (Auto) [place] # (Auto) Eos # (Auto) Baso # (Auto) Abs Immat Gran (auto) Absolute Neuts (auto) Absolute Nucleated RBC Nucleated RBC % (auto) D-Dimer ABG pH ABG pCO2 ABG pO2 ABG HCO3 ABG O2 Saturation ABG Base Excess Oxygen Given Anion Gap Estim Creat Clear Calc Estimated GFR Random Glucose Lactic Acid Lactic Acid Fup @ 2Hr 1.4 Calcium Ferritin Total Bilirubin Direct Bilirubin AST ALT Alkaline Phosphatase B-Natriuretic Peptide Total Protein Albumin Procalcitonin Urine Opiates Screen POSITIVE H Ur Barbiturates Screen Not Detected Ur Phencyclidine Scrn Not Detected Ur Amphetamines Screen Not Detected U Benzodiazepines Scrn Not Detected Urine Cocaine Screen POSITIVE H U Marijuana (THC) Screen Not Detected Ethyl Alcohol Coronavirus (PCR) POSITIVE A Influenza Type A (PCR) NEGATIVE Influenza Type B (PCR) NEGATIVE RSV RNA Qual (PCR) NEGATIVE <MARTY Escoto - Last Filed: 07/13/20 15:34> Imaging Radiologist's Impressions: Impressions Chest X-Ray 07/13/20 09:25 IMPRESSION: Diffuse bilateral patchy opacities new since the last study. Most prominent consolidation seen in the right lower lobe. Findings are most likely related to Covid inflammation Chest CTA 07/13/20 09:55 IMPRESSION: Diffuse panlobular infiltrates likely Covid related. No evidence of PE. No evidence of aortic dissection. VTE: negative <MARTY Escoto - Last Filed: 07/13/20 15:34> Assessment and Plan (1) Pneumonia due to COVID-19 virus: Status: Acute <MARTY Escoto - Last Filed: 07/13/20 15:34> (2) Acute respiratory failure with hypoxia: Status: Acute <MARTY Escoto - Last Filed: 07/13/20 15:34> This is a 60 year with diabetes hypertension history of open COPD diastolic CHF recent admission for right diabetic infection/osteomyelitis, asymptomatic osteomyelitis who returns shortness breath found to be in respiratory failure Acute respiratory failure with hypoxia Viral sepsis COVID-19 pneumonia -supportive care with supplemental oxygen as needed, currently on high-flow -IV dexamethasone Acute on chronic diastolic CHF IV diuresis Monitor I's and O's Cardiology consult NSTEMI Troponin 515 No chest pain. Likely demand secondary to hypoxia Continue to cycle cardiac enzymes Echocardiogram Cardiology consult Aspirin, statin Right diabetic foot infection/osteomyelitis Diagnosed on last admission Continue Augmentin/doxycycline Plan for DKA in future for definitive treatment Diabetes SSI, POC Anemia H/H near baseline Trend CBC Opiate dependence Continue methadone once dose has been confirmed by pharmacy Tobacco dependence Continue nicotine replacement therapy Med reconciliation pending at this time DVT prophylaxis-Lovenox Code status-full code This case was discussed with Dr. Ordaz <MARTY Escoto - Last Filed: 07/13/20 15:34>
[2020-07-13 14:08] LABS: Troponin-I High Sensitivity 512.5 ng/L (<3.5-17.0)
[2020-07-13] MEDS: Enoxaparin Sodium 40 MG/0.4 ML SYRINGE SUBCUT (14:32)
--- NOTE | 2020-07-13 18:59 | SUR.OPER ---
CALLED FOR REPORT, AWAITING RETURN CALL FROM RN TAKING PATIENT.
[2020-07-13 20:10] LABS: Troponin-I High Sensitivity 922.4 ng/L (<3.5-17.0)
[2020-07-13 21:20] LABS: Glucose, Whole Blood 199 mg/dL (60-115)
[2020-07-13] MEDS: Furosemide 40 MG/4 ML VIAL IVPUSH (21:42)
[2020-07-13] MEDS: Insulin Lispro 100 UNIT/ML 3 ML VIAL SUBCUT (21:43)
[2020-07-13] MEDS: 0.9 % Sodium Chloride Flush 3 ML SYRINGE IVFLUSH (21:44)
[2020-07-14] VITALS (16 sets, daily range): BP systolic 110–143; BP diastolic 58–65; PULSE 64–80; RESP 18–82; TEMP 36.7–37; O2SAT 85–100
[2020-07-14 06:45] LABS: MANUAL DIFF FLAG NO
[2020-07-14 06:59] LABS: Basophils Percent Auto 0.1 % (0-2); Hematocrit 23.3 % (37-47); Hemoglobin 7.3 g/dl (12.0-16.0); Imm Gran Pct Auto 0.6 % (0.0-0.4); Lymphocytes Absolute Auto 1.2 X10*3/uL (1.2-4.9); Lymphocytes Percent Auto 7.4 % (20-40); Mean Corpuscular HGB Conc 31.3 g/dl (31.0-35.0); Mean Corpuscular Hemoglobin 26.4 pg (27.0-33.0); Mean Corpuscular Volume 84.4 fL (80-98); Mean Platelet Volume 10.7 fL (9.4-12.3); Monocytes Absolute Auto 0.6 X10*3/uL (0.1-1.2); Monocytes Percent Auto 3.5 % (2-11); Neutrophils Absolute Auto 14.5 X10*3/uL (2.0-8.3); Neutrophils Percent Auto 88.4 % (45-73); Platelet Count 389 X10*3/uL (160-400); Red Blood Count 2.76 X10*6/uL (4.20-5.50); Red Cell Distribution Width 15.4 % (11.0-16.0); White Blood Count 16.4 X10*3/uL (4.8-10.8)
[2020-07-14 07:14] LABS: Anion Gap 15 (12-20); Blood Urea Nitrogen 12 mg/dL (9-16); Calcium 7.4 mg/dL (8.4-10.2); Carbon Dioxide 32 mmol/L (22-29); Chloride 91 mmol/L (96-108); Creatinine Clr Calc Pharmacy 80.4; Estimated Glomerular Filt Rate > 60; Glucose Random 349 mg/dL (60-115); Potassium 3.7 mmol/l (3.3-5.1); Sodium 134 mmol/L (135-145)
[2020-07-14 08:05] LABS: Glucose, Whole Blood 328 mg/dL (60-115)
[2020-07-14] MEDS: Nicotine 14 MG PATCH.TD24 TRANSDERMA (08:11)
[2020-07-14] MEDS: Aspirin Enteric Coated 81 MG TABLET.DR PO (08:11)
[2020-07-14] MEDS: Furosemide 40 MG/4 ML VIAL IVPUSH ×2 (08:11→17:03)
[2020-07-14] MEDS: Insulin Lispro 100 UNIT/ML 3 ML VIAL SUBCUT ×4 (08:11→20:34)
[2020-07-14] MEDS: dexAMETHasone sod phosphate 4 MG/ML VIAL 6 MG IVPUSH (08:11)
[2020-07-14] MEDS: 0.9 % Sodium Chloride Flush 3 ML SYRINGE IVFLUSH ×3 (08:11→20:29)
[2020-07-14 12:10] LABS: Glucose, Whole Blood 305 mg/dL (60-115)
--- NOTE | 2020-07-14 12:53 | HO.PM.IMPN ---
Subjective Subjective Date of Service: 07/14/20 Interval History: sob Cardiovascular Cardiovascular: Reports no additional cardiovascular complaints Gastrointestinal Gastrointestinal: Reports no additional gastrointestinal complaints Physical Exam Vital Signs: Vital Signs: Last Vital Signs Temp 98.5 F 07/14/20 12:00 Pulse 80 07/14/20 12:00 Resp 24 H 07/14/20 12:00 BP 137/65 07/14/20 12:00 Pulse Ox 96 07/14/20 12:00 Body Mass Index 25.7 General: Alert, looks/feels better than numbers appear Resp: rhonchi CVS: S1,S2,RRR GI: soft, non tender, non distended Neuro: motor grossly intact Psych: appropriate affect Objective Data Current Medications Generic Name Dose Route Start Last Admin Trade Name Freq PRN Reason Stop Dose Admin Acetaminophen 650 mg 07/13/20 14:03 Acetaminophen 325 Mg Tablet PO Q6H PRN Pain, Mild (Pain Scale 1-3) Amoxicillin/Clavulanate Potassium 875 mg 07/14/20 14:00 Amoxicillin/Potassium Clav 875 Mg Tablet PO Q12H [facility] Aspirin 81 mg 07/14/20 12:45 Aspirin Enteric Coated 81 Mg Tablet.Dr PO DAILY [facility] Atorvastatin Calcium 40 mg 07/14/20 21:00 Atorvastatin Calcium 40 Mg Tablet PO BEDTIME [facility] Dexamethasone Sodium Phosphate 6 mg 07/14/20 09:00 07/14/20 08:11 Dexamethasone Sod Phosphate 4 Mg/Ml Vial IVPUSH 6 mg DAILY [facility] Administration Docusate Sodium 100 mg 07/13/20 14:03 Docusate Sodium 100 Mg Capsule PO DAILY PRN Constipation Enoxaparin Sodium 40 mg 07/13/20 14:03 07/13/20 14:32 Enoxaparin Sodium 40 Mg/0.4 Ml Syringe SUBCUT 40 mg Q24H [facility] Administration Furosemide 40 mg 07/13/20 18:00 07/14/20 08:11 Furosemide 40 Mg/4 Ml Vial IVPUSH 40 mg BID@0900,1800 [facility] Administration Protocol Gabapentin 600 mg 07/14/20 15:00 Gabapentin 600 Mg Tablet PO TID [facility] Insulin Glargine 20 unit 07/14/20 12:45 Insulin Glargine,Hum.Rec.Anlog 100 Unit/Ml 10 Ml Vial SUBCUT DAILY [facility] Insulin Human Lispro 0 unit 07/13/20 16:30 07/14/20 12:13 Insulin Lispro 100 Unit/Ml 3 Ml Vial SUBCUT 8 unit QIDACHS [facility] Administration Protocol Lisinopril 10 mg 07/15/20 09:00 Lisinopril 10 Mg Tablet PO DAILY [facility] Protocol Metformin HCl 1,000 mg 07/14/20 12:45 Metformin Hcl 1,000 Mg Tablet PO BIDWMEAL [facility] Methadone HCl 90 mg 07/14/20 12:45 Methadone Hcl 1 Mg/0.1 Ml Oral.Conc PO DAILY [facility] Nicotine 14 mg 07/14/20 09:00 07/14/20 08:11 Nicotine 14 Mg Patch.Td24 TRANSDERMA 14 mg DAILY [facility] Administration Non-Formulary Medication 150 mg 07/14/20 12:45 Bupropion Hcl PO BID [facility] Non-Formulary Medication 100 mg 07/14/20 12:45 Doxycycline Hyclate PO BID [facility] Non-Formulary Medication 2 puff 07/14/20 12:45 Fluticasone Propionate [Flovent Hfa] INHALE BID [facility] Omeprazole 20 mg 07/15/20 09:00 Omeprazole 20 Mg Capsule. PO DAILY [facility] Ondansetron HCl 4 mg 07/13/20 14:03 Ondansetron Hcl 4 Mg/2 Ml Vial IVPUSH Q8H PRN Nausea and Vomiting Pharmacy Consult 1 each 07/13/20 22:30 Consult Rx Perform Med Rec MISCELLANE ONCE PRN Consult order Sodium Chloride 3 ml 07/13/20 16:00 07/14/20 08:11 0.9 % Sodium Chloride Flush 3 Ml Syringe IVFLUSH 3 ml QSHIFT [facility] Administration Vitamin D 50 mcg 07/14/20 12:45 Cholecalciferol (Vitamin D3) 25 Mcg Tablet PO DAILY [facility] Labs CBC & Chem 7: 07/14/20 05:47 07/14/20 05:47 Assessment and Plan (1) Pneumonia due to COVID-19 virus: Status: Acute (2) Acute respiratory failure with hypoxia: Status: Acute Assessment and Plan: This is a 60 year with diabetes hypertension history of open COPD diastolic CHF recent admission for right diabetic infection/osteomyelitis, asymptomatic osteomyelitis who returned shortness breath found to be in respiratory failure Acute respiratory failure with hypoxia Viral sepsis COVID-19 pneumonia currently on high flow, does well with proning Acute on chronic diastolic CHF IV diuresis Monitor I's and O's Cardiology following NSTEMI likely demand ischemia Right diabetic foot infection/osteomyelitis Diagnosed on last admission Continue Augmentin/doxycycline Plan for BKA in future for definitive treatment Diabetes SSI, POC Anemia H/H near baseline Trend CBC Opiate dependence Continue methadone Tobacco dependence Continue nicotine replacement therapy
[2020-07-14] MEDS: Gabapentin 600 MG TABLET PO ×2 (14:08→20:29)
[2020-07-14] MEDS: Cholecalciferol (Vitamin D3) 25 MCG TABLET 50 MCG PO (14:08)
[2020-07-14] MEDS: Amoxicillin/Potassium Clav 875 MG TABLET PO (14:08)
[2020-07-14] MEDS: Enoxaparin Sodium 40 MG/0.4 ML SYRINGE SUBCUT (14:08)
[2020-07-14] MEDS: Insulin Glargine,Hum.rec.anlog 100 UNIT/ML 10 ML VIAL 20 UNIT SUBCUT (14:09)
--- NOTE | 2020-07-14 15:18 | PM.CNCAR ---
History of Present Illness History of Present Illness Date of Service: 07/14/20 Requesting physician: Neal Ordaz Chief complaint: COVID 19 pneumonia, Respiratory failure, ?CHF Narrative: 60-year-old female with recent COVID-19 infection who left and came back with shortness of breath. She has background history of diastolic heart failure, diabetes, peripheral arterial disease, depression, osteomyelitis, pulmonary nodules, tobacco abuse, COPD and substance abuse. She said she went home and went to methadone clinic but she was not given her medication. She said after this she had to use heroin. She said she was feeling better when she left the hospital but wonder later her breathing worsened and she came back. She said she was sweating at home. She had no chest pain. Chest x-ray is showing bilateral infiltrates. She is saying that she has been running from heroin. Review of Systems Review of Systems: Shortness of breath Yes all other systems are reviewed and are negative PMFSH Past Medical History Medical History Chronic prescription opiate use COPD (chronic obstructive pulmonary disease) Depression Diabetes mellitus Diabetic foot infection Dyslipidemia Glaucoma Pulmonary emboli Pulmonary nodule Tobacco dependence Functional capacity: independent ambulation Family History Family History Other CVA (cerebral vascular accident) Family history: reviewed and not pertinent Surgical History Surgical History Cataract extraction status, left eye Cataract extraction status, right eye Hx of cholecystectomy Social History Social History Household Members: Significant Other Housing: Other Alcohol intake: never Smoking Status: Current some day smoker Tobacco Type: Cigarette Packs Per Day: 0.3 Cigarettes Per Day: 6.0 Years Smoked: 14 years old Smoked in Last 30 Days: Yes Patient Interested in Nicotine Replacement: Yes Second Hand Smoke Exposure: Yes Use of substances other than those prescribed or required for medical reasons: No Substance Use Type: Crack/Cocaine and Heroin Currently Displaying Signs/Symptoms of Drug Intoxication Withdrawal: No Have you been hit, kicked, punched, or otherwise hurt by someone within the past year? If so, by whom?: No Do you feel safe in your current relationship?: Yes Is there a partner from a previous relationship who is making you feel unsafe now?: No Are you made to feel afraid or neglected: No Advance Directives: No Advance Directives Information Provided: No Do you have thoughts of harming others: None Do you have a plan to hurt others: No Plan Recently lost weight without trying: No service: Yes (hx on methadone) Current occupational status: unemployed Meds Allergies Allergy/AdvReac Type Severity Reaction Status Date / Time No Known Allergies Allergy Verified 05/03/20 13:17 Home Medications Medication Instructions Recorded Confirmed Type albuterol sulfate 90 mcg/actuation 2 puff PO Q4H PRN 04/24/20 07/13/20 History aerosol inhaler aspirin 81 mg tablet,delayed 81 mg PO DAILY 04/24/20 07/13/20 History release atorvastatin 40 mg tablet 40 mg PO BEDTIME 04/24/20 07/13/20 History bupropion HCl 150 mg tablet,12 hr 150 mg PO BID 04/24/20 07/13/20 History sustained-release cholecalciferol (vitamin D3) 50 50 mcg PO DAILY 04/24/20 07/13/20 History mcg (2,000 unit) tablet furosemide 20 mg tablet 20 mg PO QAM 04/24/20 07/13/20 History insulin degludec 100 unit/mL (3 20 unit SUBCUT BID 04/24/20 07/13/20 History mL) subcutaneous pen lancets 33 gauge #100 ea 04/24/20 07/13/20 History lisinopril 10 mg tablet 10 mg PO DAILY 04/24/20 07/13/20 History metformin 1,000 mg tablet 1,000 mg PO BIDWMEAL 04/24/20 07/13/20 History omeprazole 20 mg capsule,delayed 20 mg PO DAILY 04/24/20 07/13/20 History release gabapentin 600 mg tablet 600 mg PO TID 05/03/20 07/13/20 History Flovent HFA 2 puff INHALATION BID 05/28/20 07/13/20 History insulin aspart U-100 [Novolog 0 unit SUBCUT QIDACHS 05/28/20 07/13/20 History Flexpen U-100 Insulin] methadone [Methadone Intensol] 95 mg DAILY 05/28/20 07/13/20 History Physical Exam Vital Signs: Vital Signs: Last Vital Signs Temp 98.5 F 07/14/20 12:00 Pulse 80 07/14/20 12:00 Resp 24 H 07/14/20 12:00 BP 137/65 07/14/20 12:00 Pulse Ox 96 07/14/20 12:00 Body Mass Index 25.7 GENERAL APPEARANCE: Short of breath, on high-flow oxygen. HEENT: unremarkable. HEAD: normocephalic, atraumatic. NECK/THYROID: no carotid bruit, mild JVD. SKIN: no suspicious lesions, warm and dry. HEART: no murmurs, regular rate and rhythm, S1, S2 normal. LUNGS: clear to auscultation bilaterally. ABDOMEN: normal, bowel sounds present, soft, nontender, nondistended. EXTREMITIES: no clubbing, cyanosis, or edema. PERIPHERAL PULSES: equal. NEUROLOGIC: nonfocal, alert and oriented. PSYCH: mood/affect full range. Results Labs and Meds Result diagrams: 07/14/20 05:47 07/14/20 05:47 Lab results: Laboratory Results - last 24 hr 07/13/20 07/13/20 07/14/20 19:05 21:16 05:47 WBC 16.4 H RBC 2.76 L Hgb 7.3 L Hct 23.3 L MCV 84.4 MCH 26.4 L MCHC 31.3 RDW 15.4 Plt Count 389 MPV 10.7 Immature Gran % (Auto) 0.6 H Neut % (Auto) 88.4 H Lymph % (Auto) 7.4 L [place] % (Auto) 3.5 Eos % (Auto) 0.0 Baso % (Auto) 0.1 Lymph # (Auto) 1.2 [place] # (Auto) 0.6 Eos # (Auto) 0.0 Baso # (Auto) 0.0 Abs Immat Gran (auto) 0.10 H Absolute Neuts (auto) 14.5 H Absolute Nucleated RBC 0.000 Nucleated RBC % (auto) 0.0 Sodium Potassium Chloride Carbon Dioxide Anion Gap BUN Creatinine Estim Creat Clear Calc Estimated GFR POC Glucose 199 H Random Glucose Calcium Troponin I High Sens 922.4 H D 07/14/20 07/14/20 07/14/20 05:47 07:58 12:07 WBC RBC Hgb Hct MCV MCH MCHC RDW Plt Count MPV Immature Gran % (Auto) Neut % (Auto) Lymph % (Auto) [place] % (Auto) Eos % (Auto) Baso % (Auto) Lymph # (Auto) [place] # (Auto) Eos # (Auto) Baso # (Auto) Abs Immat Gran (auto) Absolute Neuts (auto) Absolute Nucleated RBC Nucleated RBC % (auto) Sodium 134 L Potassium 3.7 Chloride 91 L Carbon Dioxide 32 H Anion Gap 15 BUN 12 Creatinine 0.73 Estim Creat Clear Calc 80.4 Estimated GFR > 60 POC Glucose 328 H 305 H Random Glucose 349 H D Calcium 7.4 L D Troponin I High Sens Assessment and Plan (1) Acute respiratory failure with hypoxia: Status: Acute (2) Pneumonia due to COVID-19 virus: Status: Acute 60-year-old female with complex issues including substance abuse who recently was admitted at [facility] with COVID-19 infection and left and was quickly readmitted for hypoxic respiratory failure. Differential diagnosis include COVID-19 pneumonia versus heart failure. She has no chest pain. She has been on IV diuretics. She has mild JVD. I think she should have a repeat chest x-ray tomorrow morning to see if her lung infiltrates improved or not. If with a negative fluid balance her chest x-ray does not change then the likely thing is that this is infection from COVID-19. In any case I think today she can stay on IV diuretics. She is withdrawing from heroin and will need some medications to help her. She is also anemic and her hemoglobin has dropped significantly since last visit. I do not know the exact etiology of that. This needs further workup. We will follow along very. Thank you for allowing me to participate in the care of your patient. Please feel free to contact me if you have any questions.
[2020-07-14 16:46] LABS: Glucose, Whole Blood 237 mg/dL (60-115)
[2020-07-14] MEDS: metFORMIN HCl 1,000 MG TABLET 1000 MG PO (17:03)
--- NOTE | 2020-07-14 18:26 | PC.NURSE ---
Pt very anxious and satting 85-88% on high flow 55L 100%. Pt place on non rebreather by respiratory. This RN in to prone pt. Pt proned for 1 hr with good effect and not requiring non rebreather. Pt steady to commode by self, educated to ring when needed. Pt able to make needs known, repo's self.
[2020-07-14] MEDS: Atorvastatin Calcium 40 MG TABLET PO (20:29)
[2020-07-14] MEDS: Nystatin Powder 15 GM BOTTLE 1 APPL TOPICAL (20:31)
[2020-07-14 20:34] LABS: Glucose, Whole Blood 152 mg/dL (60-115)
[2020-07-15] VITALS (12 sets, daily range): BP systolic 106–169; BP diastolic 55–69; PULSE 63–84; RESP 18–20; TEMP 36.6–37.1; O2SAT 91–99
--- NOTE | 2020-07-15 | XR_ITS ---
EXAMINATION: XR CHEST CLINICAL INFORMATION: Shortness of breath, follow-up COMPARISON: Chest radiograph from 07/13/2020 TECHNIQUE: Frontal view of the chest was obtained. FINDINGS: Persistent patchy infiltrates throughout the bilateral lung mckeon greatest in the right mid/lower lung mckeon though slightly less dense than prior imaging. There is no pneumothorax. The trachea is midline. Cardiomediastinal silhouette is stable. There is no pleural effusion. Osseous structures are intact with subchondral cystic changes involving the bilateral humeral heads. Soft tissues are unremarkable. XR/XR chest 1V IMPRESSION: Persistent patchy infiltrates throughout the bilateral lung mckeon greatest in the right mid/lower lung mckeon though slightly less dense than prior imaging.
[2020-07-15] MEDS: Amoxicillin/Potassium Clav 875 MG TABLET PO ×2 (01:25→12:27)
[2020-07-15 07:07] LABS: MANUAL DIFF FLAG NO
[2020-07-15 07:11] LABS: Basophils Percent Auto 0.1 % (0-2); Hemoglobin 7.5 g/dl (12.0-16.0); Imm Gran Abs Auto 0.08 X10*3/uL (0.00-0.03); Imm Gran Pct Auto 0.5 % (0.0-0.4); Lymphocytes Absolute Auto 1.7 X10*3/uL (1.2-4.9); Lymphocytes Percent Auto 11.3 % (20-40); Mean Corpuscular HGB Conc 31.3 g/dl (31.0-35.0); Mean Corpuscular Hemoglobin 27.2 pg (27.0-33.0); Mean Platelet Volume 10.8 fL (9.4-12.3); Monocytes Absolute Auto 0.4 X10*3/uL (0.1-1.2); Neutrophils Absolute Auto 12.7 X10*3/uL (2.0-8.3); Neutrophils Percent Auto 85.1 % (45-73); Platelet Count 391 X10*3/uL (160-400); Red Blood Count 2.76 X10*6/uL (4.20-5.50); Red Cell Distribution Width 15.6 % (11.0-16.0); White Blood Count 14.9 X10*3/uL (4.8-10.8)
[2020-07-15 07:53] LABS: Glucose, Whole Blood 136 mg/dL (60-115)
[2020-07-15] MEDS: Fluticasone Propionate 100 MCG BLST.W.DEV 2 PUFF INHALE ×2 (07:55→20:23)
[2020-07-15 07:58] LABS: Anion Gap 13 (12-20); Blood Urea Nitrogen 12 mg/dL (9-16); Calcium 7.9 mg/dL (8.4-10.2); Carbon Dioxide 38 mmol/L (22-29); Chloride 92 mmol/L (96-108); Creatinine Clr Calc Pharmacy 87.6; Estimated Glomerular Filt Rate > 60; Glucose Fasting 146 mg/dL (60-99); Potassium 3.5 mmol/l (3.3-5.1); Sodium 139 mmol/L (135-145)
[2020-07-15] MEDS: Furosemide 40 MG/4 ML VIAL IVPUSH (08:44)
[2020-07-15] MEDS: Aspirin Enteric Coated 81 MG TABLET.DR PO (08:44)
[2020-07-15] MEDS: dexAMETHasone sod phosphate 4 MG/ML VIAL 6 MG IVPUSH (08:44)
[2020-07-15] MEDS: Omeprazole 20 MG CAPSULE.DR PO (08:45)
[2020-07-15] MEDS: lisinopriL 10 MG TABLET PO (08:45)
[2020-07-15] MEDS: Gabapentin 600 MG TABLET PO ×3 (08:45→21:29)
[2020-07-15] MEDS: Insulin Glargine,Hum.rec.anlog 100 UNIT/ML 10 ML VIAL 20 UNIT SUBCUT (08:45)
[2020-07-15] MEDS: Cholecalciferol (Vitamin D3) 25 MCG TABLET 50 MCG PO (08:45)
[2020-07-15] MEDS: buPROPion HCl XL 300 MG TAB.ER.24H PO (08:45)
[2020-07-15] MEDS: metFORMIN HCl 1,000 MG TABLET 1000 MG PO ×2 (08:45→16:53)
[2020-07-15] MEDS: 0.9 % Sodium Chloride Flush 3 ML SYRINGE IVFLUSH ×3 (08:46→21:30)
[2020-07-15] MEDS: Nicotine 14 MG PATCH.TD24 TRANSDERMA (08:46)
[2020-07-15] MEDS: Nystatin Powder 15 GM BOTTLE 1 APPL TOPICAL ×3 (08:58→21:35)
--- NOTE | 2020-07-15 10:41 | P.PNIM_ITS ---
Subjective Subjective Date of Service: 07/15/20 Interval History: a bit better today Respiratory Respiratory: Reports no additional respiratory complaints Gastrointestinal Gastrointestinal: Reports no additional gastrointestinal complaints Physical Exam Vital Signs: Vital Signs: Last Vital Signs Temp 98.7 F 07/15/20 08:00 Pulse 83 07/15/20 08:45 Resp 18 07/15/20 08:00 BP 169/69 H 07/15/20 08:45 Pulse Ox 91 L 07/15/20 08:00 Body Mass Index 25.7 General: AO X 3, no acute distress Resp: diminished CVS: S1,S2,RRR GI: soft, non tender, non distended Neuro: motor grossly intact Psych: appropriate affect Objective Data Current Medications Generic Name Dose Route Start Last Admin Trade Name Freq PRN Reason Stop Dose Admin Acetaminophen 650 mg 07/13/20 14:03 Acetaminophen 325 Mg Tablet PO Q6H PRN Pain, Mild (Pain Scale 1-3) Amoxicillin/Clavulanate Potassium 875 mg 07/14/20 14:00 07/15/20 01:25 Amoxicillin/Potassium Clav 875 Mg Tablet PO 875 mg Q12H PRECIOUS Administration Aspirin 81 mg 07/14/20 12:45 07/15/20 08:44 Aspirin Enteric Coated 81 Mg Tablet.Dr PO 81 mg DAILY PERCIOUS Administration Atorvastatin Calcium 40 mg 07/14/20 21:00 07/14/20 20:29 Atorvastatin Calcium 40 Mg Tablet PO 40 mg BEDTIME PRECIOUS Administration Bupropion HCl 300 mg 07/15/20 09:00 07/15/20 08:45 Bupropion Hcl Xl 300 Mg Tab.Er.24h PO 300 mg DAILY PRECIOUS Administration Dexamethasone Sodium Phosphate 6 mg 07/14/20 09:00 07/15/20 08:44 Dexamethasone Sod Phosphate 4 Mg/Ml Vial IVPUSH 6 mg DAILY PRECIOUS Administration Docusate Sodium 100 mg 07/13/20 14:03 Docusate Sodium 100 Mg Capsule PO DAILY PRN Constipation Doxycycline Hyclate 100 mg 07/14/20 13:00 07/15/20 01:25 Doxycycline Hyclate 100 Mg Tablet PO 100 mg Q12H PRECIOUS Administration Enoxaparin Sodium 40 mg 07/13/20 14:03 07/14/20 14:08 Enoxaparin Sodium 40 Mg/0.4 Ml Syringe SUBCUT 40 mg Q24H PRECIOUS Administration Fluticasone Propionate 2 puff 07/14/20 20:00 07/15/20 07:55 Fluticasone Propionate 100 Mcg Blst.W.Dev INHALE 2 puff RBID PRECIOUS Administration Furosemide 20 mg 07/16/20 09:00 Furosemide 20 Mg Tablet PO DAILY [facility] Protocol Gabapentin 600 mg 07/14/20 15:00 07/15/20 08:45 Gabapentin 600 Mg Tablet PO 600 mg TID PRECIOUS Administration Insulin Glargine 20 unit 07/14/20 12:45 07/15/20 08:45 Insulin Glargine,Hum.Rec.Anlog 100 Unit/Ml 10 Ml Vial SUBCUT 20 unit DAILY PRECIOUS Administration Insulin Human Lispro 0 unit 07/13/20 16:30 07/15/20 08:34 Insulin Lispro 100 Unit/Ml 3 Ml Vial SUBCUT Not Given QIDACHS [facility] Protocol Lisinopril 10 mg 07/15/20 09:00 07/15/20 08:45 Lisinopril 10 Mg Tablet PO 10 mg DAILY PRECIOUS Administration Protocol Metformin HCl 1,000 mg 07/14/20 12:45 07/15/20 08:45 Metformin Hcl 1,000 Mg Tablet PO 1,000 mg BIDWM PRECIOUS Administration Methadone HCl 90 mg 07/14/20 12:45 07/15/20 08:44 Methadone Hcl 1 Mg/0.1 Ml Oral.Conc PO 90 mg DAILY PRECIOUS Administration Nicotine 14 mg 07/14/20 09:00 07/15/20 08:46 Nicotine 14 Mg Patch.Td24 TRANSDERMA 14 mg DAILY PRECIOUS Administration Nystatin 1 appl 07/14/20 15:15 07/15/20 08:58 Nystatin Powder 15 Gm Bottle TOPICAL 1 appl TID [facility] Administration Protocol Omeprazole 20 mg 07/15/20 09:00 07/15/20 08:45 Omeprazole 20 Mg Capsule.Dr PO 20 mg DAILY PRECIOUS Administration Ondansetron HCl 4 mg 07/13/20 14:03 Ondansetron Hcl 4 Mg/2 Ml Vial IVPUSH Q8H PRN Nausea and Vomiting Pharmacy Consult 1 each 07/13/20 22:30 Consult Rx Perform Med Rec MISCELLANE ONCE PRN Consult order Sodium Chloride 3 ml 07/13/20 16:00 07/15/20 08:46 0.9 % Sodium Chloride Flush 3 Ml Syringe IVFLUSH 3 ml QSHIFT [facility] Administration Vitamin D 50 mcg 07/14/20 12:45 07/15/20 08:45 Cholecalciferol (Vitamin D3) 25 Mcg Tablet PO 50 mcg DAILY PRECIOUS Administration Labs CBC & Chem 7: 07/15/20 05:47 07/15/20 05:47 Microbiology Microbiology Results: Microbiology 07/13/20 11:31 Blood - Venous Blood Culture - Preliminary No growth after 24 hours. 07/13/20 11:24 Blood - Venous Blood Culture - Preliminary No growth after 24 hours. Assessment and Plan (1) Pneumonia due to COVID-19 virus: Status: Acute (2) Acute respiratory failure with hypoxia: Status: Acute Assessment and Plan: This is a 60 year with diabetes hypertension history of open COPD diastolic CHF recent admission for right diabetic infection/osteomyelitis, asymptomatic osteomyelitis who returned shortness breath found to be in respiratory failure Acute respiratory failure with hypoxia Viral sepsis COVID-19 pneumonia currently on high flow, taken off nrb, does well with proning Acute on chronic diastolic CHF cxr showing some improvement, evidence that some part of hypoxia due to chf will change to oral lasix anemia inflammatory due to osteomyelitis and covid, no evidence of bleed, keep hgb >7 NSTEMI likely demand ischemia Right diabetic foot infection/osteomyelitis Diagnosed on last admission, BKA was deferred until resolution of covid Continue Augmentin/doxycycline Plan for BKA in future for definitive treatment Diabetes SSI, POC Opiate dependence Continue methadone Tobacco dependence Continue nicotine replacement therapy
[2020-07-15 11:52] LABS: Glucose, Whole Blood 156 mg/dL (60-115)
[2020-07-15] MEDS: Insulin Lispro 100 UNIT/ML 3 ML VIAL SUBCUT ×3 (12:27→21:29)
[2020-07-15] MEDS: Enoxaparin Sodium 40 MG/0.4 ML SYRINGE SUBCUT (12:27)
--- NOTE | 2020-07-15 16:21 | MHC.CM.PN ---
CM ATTEMPTED TO CONTACT PT ON CELL ([phone]) WELL HER HCP, JAREN CHOI. DENTIST/OWNER COMPLETED USING EMR AND IMM WILL BE SENT TO PTS HOME VIA CERTIFIED MAIL. PT LIVES WITH HER AND HER DAUGHTER IS HER ARCHITECTURAL MODEL MAKER. PT USES A WALKER AT BASELINE. DCP TBD PENDING PTS RECOVERY. LIKELY HOME WITH [employer] ARCHITECTURAL MODEL [employer]KER [employer] FAMILY TYPICALLY TRANSPORTS PT
[2020-07-15 16:43] LABS: Glucose, Whole Blood 172 mg/dL (60-115)
--- NOTE | 2020-07-15 19:34 | PC.NURSE ---
Pt repos self, educated on importance of repo and coughing. Able to titrate pt to 60% 55L, satting 95-99%. No c/o sob, trouble breathing. Pt up to commode by self with steady gait. Some assistance needed to clean self.
[2020-07-15 21:16] LABS: Glucose, Whole Blood 164 mg/dL (60-115)
[2020-07-15] MEDS: Atorvastatin Calcium 40 MG TABLET PO (21:29)
[2020-07-16] VITALS (15 sets, daily range): BP systolic 121–162; BP diastolic 58–87; PULSE 65–86; RESP 16–22; TEMP 36.4–37.4; O2SAT 82–98; BMI 25.3
--- NOTE | 2020-07-16 | ECG_ITS ---
Test Reason : CP Blood Pressure : / mmHG Vent. Rate : 074 BPM Atrial Rate : 074 BPM P-R Int : 138 ms QRS Dur : 086 ms QT Int : 410 ms P-R-T Axes : 046 008 -37 degrees QTc Int : 455 ms Normal sinus rhythm Minimal voltage criteria for LVH, may be normal variant ST & T wave abnormality, consider inferior ischemia Abnormal ECG When compared with ECG of 13-JUL-2020 14:52, T wave inversion more evident in Inferior leads Nonspecific T wave abnormality now evident in Anterior leads Referred By: Joleen Duenas Electronically Signed By:KYAW ANGELES MD
[2020-07-16] MEDS: Amoxicillin/Potassium Clav 875 MG TABLET PO ×2 (01:48→14:51)
[2020-07-16 06:29] LABS: MANUAL DIFF FLAG NO
[2020-07-16 06:34] LABS: Basophils Percent Auto 0.1 % (0-2); Eosinophils Percent Auto 0.1 % (0-4); Hemoglobin 7.3 g/dl (12.0-16.0); Imm Gran Abs Auto 0.06 X10*3/uL (0.00-0.03); Imm Gran Pct Auto 0.6 % (0.0-0.4); Lymphocytes Absolute Auto 1.7 X10*3/uL (1.2-4.9); Lymphocytes Percent Auto 16.7 % (20-40); Mean Corpuscular HGB Conc 30.4 g/dl (31.0-35.0); Mean Corpuscular Hemoglobin 26.4 pg (27.0-33.0); Mean Platelet Volume 10.7 fL (9.4-12.3); Monocytes Absolute Auto 0.3 X10*3/uL (0.1-1.2); Monocytes Percent Auto 3.2 % (2-11); Neutrophils Absolute Auto 8.2 X10*3/uL (2.0-8.3); Neutrophils Percent Auto 79.3 % (45-73); Platelet Count 369 X10*3/uL (160-400); Red Blood Count 2.76 X10*6/uL (4.20-5.50); Red Cell Distribution Width 15.3 % (11.0-16.0); White Blood Count 10.3 X10*3/uL (4.8-10.8)
[2020-07-16 07:12] LABS: Anion Gap 14 (12-20); Blood Urea Nitrogen 13 mg/dL (9-16); Carbon Dioxide 38 mmol/L (22-29); Chloride 90 mmol/L (96-108); Estimated Glomerular Filt Rate > 60; Glucose Fasting 176 mg/dL (60-99); Magnesium 1.5 mg/dL (1.6-2.6); Potassium 3.8 mmol/l (3.3-5.1); Sodium 138 mmol/L (135-145)
[2020-07-16 07:57] LABS: Glucose, Whole Blood 151 mg/dL (60-115)
[2020-07-16] MEDS: Aspirin Enteric Coated 81 MG TABLET.DR PO (09:00)
[2020-07-16] MEDS: Gabapentin 600 MG TABLET PO ×3 (09:00→21:01)
[2020-07-16] MEDS: metFORMIN HCl 1,000 MG TABLET 1000 MG PO ×2 (09:00→17:49)
[2020-07-16] MEDS: Cholecalciferol (Vitamin D3) 25 MCG TABLET 50 MCG PO (09:00)
[2020-07-16] MEDS: Furosemide 20 MG TABLET PO (09:00)
[2020-07-16] MEDS: buPROPion HCl XL 300 MG TAB.ER.24H PO (09:00)
[2020-07-16] MEDS: Insulin Glargine,Hum.rec.anlog 100 UNIT/ML 10 ML VIAL 20 UNIT SUBCUT (09:00)
[2020-07-16] MEDS: dexAMETHasone sod phosphate 4 MG/ML VIAL 6 MG IVPUSH (09:00)
[2020-07-16] MEDS: Nicotine 14 MG PATCH.TD24 TRANSDERMA (09:00)
[2020-07-16] MEDS: 0.9 % Sodium Chloride Flush 3 ML SYRINGE IVFLUSH ×3 (09:00→21:10)
[2020-07-16] MEDS: Fluticasone Propionate 100 MCG BLST.W.DEV 2 PUFF INHALE (09:06)
[2020-07-16] MEDS: Omeprazole 20 MG CAPSULE.DR PO (11:21)
[2020-07-16] MEDS: lisinopriL 10 MG TABLET PO (11:24)
[2020-07-16] MEDS: Nystatin Powder 15 GM BOTTLE 1 APPL TOPICAL ×3 (11:58→21:09)
[2020-07-16] MEDS: Insulin Lispro 100 UNIT/ML 3 ML VIAL SUBCUT ×3 (11:58→21:01)
[2020-07-16 12:19] LABS: Glucose, Whole Blood 198 mg/dL (60-115)
[2020-07-16 12:50] LABS: Troponin-I High Sensitivity 147.3 ng/L (<3.5-17.0)
[2020-07-16] MEDS: Magnesium Sulfate/H2O 2 GM/50 ML PIGGYBACK IV (14:00)
--- NOTE | 2020-07-16 14:23 | CA_ITS ---
Transthoracic Echocardiogram Patient (Last, First, Middle): Lazara Driscoll, Gender: Female Date of : 1960 Age: 60 Procedure Date: 07/16/2020 Procedure Type: Transthoracic Echocardiogram Location: [facility] [place] Height: 165.1 cm Weight: 69.85 kg BSA: 1.77 m2 Heart Rate: bpm BP: 129 / 59 mmHg Pressroom Supervisor: KARMEN Referring MD: Rox FERGUSON Fun House Operator: Conrad Smith MD Symptoms: NSTEMI Study Quality: Good ECG Rhythm: Sinus Conclusions: - 1. Normal LV systolic function with mild LVH with pseudonormal filling pattern 2. Mild to moderate left atrial enlargement 3. Mild mitral regurgitation 4. Mildly elevated right ventricular systolic pressure 5. No pericardial effusion Findings Left Ventricle Normal left ventricular size and systolic function. There is mildly increased left ventricular wall thickness. The visually estimated ejection fraction is between 60-65%. Spectral Doppler is indicative of a pseudonormal filling pattern. Right Ventricle Normal right ventricular cavity size and systolic function. Atria The left atrium is mildly dilated. There is no evidence of interatrial shunt. The right atrium is normal in size. Aortic Valve There is mild calcification of the aortic valve. There is no aortic valve stenosis. There is no aortic valve regurgitation. Mitral Valve There is mild anterior and posterior mitral leaflet thickening. There is trace mitral valve regurgitation. There is no mitral valve stenosis. Pulmonic Valve The pulmonic valve was not well visualized. Tricuspid Valve Likely normal tricuspid valve structure and function. There is mild tricuspid valve regurgitation. Mild pulmonary hypertension is present. Great Vessels All visible segments of the aorta are normal in size. The pulmonary artery was not well visualized. Venous The inferior vena cava is normal in size and collapses greater than 50% with inspiration. Pericardium/Pleural There is no evidence of pericardial effusion. Prior Study Comparison Changes noted compared to prior study dated: 09/02/2016. Diastolic filling appears to be pseudonormal Measurements 2D Linear Measurements IVSd: 1.15 0.6-0.9/0.6-1.0 cm LVIDd: 4.13 3.9-5.3/4.2-5.9 cm LVIDd Index: 2.33 2.4-3.2/2.2-3.1 cm/m2 LVIDs: 2.52 2.0-3.6 cm LVPWd: 1.15 0.7-1.1 cm Ao Root: 3.20 2.1-3.5 cm LA Diam: 3.50 2.7-3.8/3.0-4.0 cm LAIDs Index: 1.98 1.5-2.3 cm/m2 LV Mass: 203.22 67-162/88-224 g LV Mass Index: 114.81 43-95/49-115 g/m2 LVOT Diam: 2.10 3.0+(-)1.3 cm Mitral Valve MV Pk E: 0.99 MV PK A: 0.57 MV Decel Time: 282.00 E/A: 1.70 E'Lateral: 10.60 E'Medial: 9.38 E/E' Med: 10.60 E/E' Lat: 9.30 PHT: 83.00 MVA PHT: 2.65 Decel Woodson: 3.51 Aortic Valve AoV Pk Cristi: 2.26 AoV Mn Cristi: 1.42 AoV VTI: 0.48 AoV Pk Grad: 20.00 Aov Mn Grad: 10.00 ANTHONY Cont.VTI: 1.72 LVOT LVOT Pk Cristi: 1.09 LVOT Mn Cristi: 0.71 LVOT VTI: 0.24 LVOT Pk Grad: 5.00 LVOT Mn Grad: 2.00 LVOT Diam: 2.10 LVOT Area: 3.46 Diastolic Function MV Pk E: 0.99 MV Pk A: 0.57 E/A: 1.70 E'Medial: 9.38 E/E' Med: 10.60 E' Laterial: 10.60 E/E' Lat: 9.30 Tricuspid Valve TR Pk Cristi: 3.08 TR Pk Grad: 38.00 RA Press: 3.00 RVSP: 41.00 Great Vessels Aorta Ao Root-2D: 3.20 2.0-3.7 cm Ao Asc: 3.30 2.1-3.4 cm Pulmonary Valve PV Pk Cristi: 0.98 Peak PV Grad: 4.00 Updated in Other Vendor System with Status of Final Conrad Smith MD electronically signed on 07/16/2020 4:39:32 PM with status of Final
[2020-07-16] MEDS: Enoxaparin Sodium 40 MG/0.4 ML SYRINGE SUBCUT (14:51)
--- NOTE | 2020-07-16 16:03 | HO.PM.IMPN ---
Subjective Subjective Date of Service: 07/16/20 Interval History: the patient was seen and evaluated this morning Laying in bed, feels comfortable overall but short of breath with minimal exertion Denies any fever, chills or chest pain Reports some chest tightness mainly after coughing No reported other overnight events. Systemic review: No fever, chills or weakness No chest pain, palpitation Reported shortness of breath or coughing No abdominal pain, nausea or vomiting No urinary symptoms No any rash or wounds Physical Exam Vital Signs: Vital Signs: Last Vital Signs Temp 98.5 F 07/16/20 16:02 Pulse 85 07/16/20 16:02 Resp 20 07/16/20 16:02 BP 134/87 07/16/20 16:02 Pulse Ox 82 L 07/16/20 16:02 Body Mass Index 25.7 Constitutional : Alert, oriented, not in distress Neck : Normal inspection, Supple Cardiovascular : RRR, S1 S2, no lower extremity edema Respiratory : Decreased bilateral air entry, no crackles, wheezes with bilateral rhonchi Gastrointestinal: soft, lax, Normal bowel sounds, Non tender Skin : Warm/Dry, No rash Neurological : Alert & oriented x3, No focal deficit Objective Data Current Medications Generic Name Dose Route Start Last Admin Trade Name Freq PRN Reason Stop Dose Admin Acetaminophen 650 mg 07/13/20 14:03 Acetaminophen 325 Mg Tablet PO Q6H PRN Pain, Mild (Pain Scale 1-3) Albuterol Sulfate 2 puff 07/16/20 12:00 07/16/20 15:16 Albuterol Sulfate 90 Mcg 8 Gm Inhaler INHALE Not Given RQ4H WHILE AWAKE PRECIOUS Amoxicillin/Clavulanate Potassium 875 mg 07/14/20 14:00 07/16/20 14:51 Amoxicillin/Potassium Clav 875 Mg Tablet PO 875 mg Q12H PRECIOUS Administration Aspirin 81 mg 07/14/20 12:45 07/16/20 09:00 Aspirin Enteric Coated 81 Mg Tablet.Dr PO 81 mg DAILY PRECIOUS Administration Atorvastatin Calcium 40 mg 07/14/20 21:00 07/15/20 21:29 Atorvastatin Calcium 40 Mg Tablet PO 40 mg BEDTIME PRECIOUS Administration Bupropion HCl 300 mg 07/15/20 09:00 07/16/20 09:00 Bupropion Hcl Xl 300 Mg Tab.Er.24h PO 300 mg DAILY PRECIOUS Administration Dexamethasone Sodium Phosphate 6 mg 07/14/20 09:00 07/16/20 09:00 Dexamethasone Sod Phosphate 4 Mg/Ml Vial IVPUSH 6 mg DAILY PRECIOUS Administration Docusate Sodium 100 mg 07/13/20 14:03 Docusate Sodium 100 Mg Capsule PO DAILY PRN Constipation Doxycycline Hyclate 100 mg 07/14/20 13:00 07/16/20 11:57 Doxycycline Hyclate 100 Mg Tablet PO 100 mg Q12H PRECIOUS Administration Enoxaparin Sodium 40 mg 07/13/20 14:03 07/16/20 14:51 Enoxaparin Sodium 40 Mg/0.4 Ml Syringe SUBCUT 40 mg Q24H PRECIOUS Administration Fluticasone Propionate 2 puff 07/14/20 20:00 07/16/20 09:06 Fluticasone Propionate 100 Mcg Blst.W.Dev INHALE 2 puff RBID PRECIOUS Administration Furosemide 20 mg 07/16/20 09:00 07/16/20 09:00 Furosemide 20 Mg Tablet PO 20 mg DAILY PRECIOUS Administration Protocol Gabapentin 600 mg 07/14/20 15:00 07/16/20 14:51 Gabapentin 600 Mg Tablet PO 600 mg TID PRECIOUS Administration Insulin Glargine 20 unit 07/14/20 12:45 07/16/20 09:00 Insulin Glargine,Hum.Rec.Anlog 100 Unit/Ml 10 Ml Vial SUBCUT 20 unit DAILY PRECIOUS Administration Insulin Human Lispro 0 unit 07/13/20 16:30 07/16/20 11:58 Insulin Lispro 100 Unit/Ml 3 Ml Vial SUBCUT 1 unit QIDACHS PRECIOUS Administration Protocol Lisinopril 10 mg 07/15/20 09:00 07/16/20 11:24 Lisinopril 10 Mg Tablet PO 10 mg DAILY PRECIOUS Administration Protocol Metformin HCl 1,000 mg 07/14/20 12:45 07/16/20 09:00 Metformin Hcl 1,000 Mg Tablet PO 1,000 mg BIDWM PRECIOUS Administration Methadone HCl 90 mg 07/14/20 12:45 07/16/20 09:00 Methadone Hcl 1 Mg/0.1 Ml Oral.Conc PO 90 mg DAILY PRECIOUS Administration Nicotine 14 mg 07/14/20 09:00 07/16/20 09:00 Nicotine 14 Mg Patch.Td24 TRANSDERMA 14 mg DAILY PRECIOUS Administration Nystatin 1 appl 07/14/20 15:15 07/16/20 14:52 Nystatin Powder 15 Gm Bottle TOPICAL 1 appl TID PRECIOUS Administration Protocol Omeprazole 20 mg 07/15/20 09:00 07/16/20 11:21 Omeprazole 20 Mg Capsule.Dr PO 20 mg DAILY PRECIOUS Administration Ondansetron HCl 4 mg 07/13/20 14:03 Ondansetron Hcl 4 Mg/2 Ml Vial IVPUSH Q8H PRN Nausea and Vomiting Pharmacy Consult 1 each 07/13/20 22:30 Consult Rx Perform Med Rec MISCELLANE ONCE PRN Consult order Sodium Chloride 3 ml 07/13/20 16:00 07/16/20 09:00 0.9 % Sodium Chloride Flush 3 Ml Syringe IVFLUSH 3 ml QSHIFT PRECIOUS Administration Vitamin D 50 mcg 07/14/20 12:45 07/16/20 09:00 Cholecalciferol (Vitamin D3) 25 Mcg Tablet PO 50 mcg DAILY PRECIOUS Administration Labs CBC & Chem 7: 07/16/20 05:37 07/16/20 05:37 Microbiology Microbiology Results: Microbiology 07/13/20 11:31 Blood - Venous Blood Culture - Preliminary No growth after 48 hours. 07/13/20 11:24 Blood - Venous Blood Culture - Preliminary No growth after 48 hours. Assessment and Plan (1) Pneumonia due to COVID-19 virus: Status: Acute (2) Acute respiratory failure with hypoxia: Status: Acute Assessment and Plan: This is a 60 year with diabetes hypertension history of open COPD diastolic CHF recent admission for right diabetic infection/osteomyelitis, asymptomatic osteomyelitis who returned shortness breath found to be in respiratory failure Acute respiratory failure with hypoxia Viral sepsis COVID-19 pneumonia currently on high flow Consider proning if worsen oxygen requirement Continue dexamethasone day 4 Acute on chronic diastolic CHF cxr showing some improvement, evidence that some part of hypoxia due to chf Continue oral lasix anemia inflammatory due to osteomyelitis and covid no evidence of bleed, keep hgb >7 NSTEMI likely demand ischemia Troponin repeated today, significantly Lower Right diabetic foot infection/osteomyelitis Diagnosed on last admission, BKA was deferred until resolution of covid Continue Augmentin/doxycycline Plan for BKA in future for definitive treatment Diabetes SSI, POC Opiate dependence Continue methadone Tobacco dependence Continue nicotine replacement therapy DVT PPX Lovenox
[2020-07-16] MEDS: Albuterol Sulfate 90 MCG 8 GM INHALER 2 PUFF INHALE (16:25)
[2020-07-16 16:53] LABS: Glucose, Whole Blood 160 mg/dL (60-115)
--- NOTE | 2020-07-16 18:19 | PM.PNCARD ---
Subjective Subjective Date of Service: 07/16/20 Principal diagnosis: Elevated troponin, elevated BNP, COVID Interval history: Patient complains of chest tightness. Denies orthopnea, PND. Denies shortness of breath says feels better with oxygen therapy. Currently on high-flow oxygen. Troponin was elevated, repeat pending. Review of Systems Cardiovascular: Reports chest pain (Describes as tightness) and Reports dyspnea Respiratory: Reports dyspnea Gastrointestinal: Reports no additional gastrointestinal complaints Reports system reviewed and no additional complaints, except as documented Endocrine: Reports no additional endocrine complaints Hematologic/Lymphatic: Reports no additional hematologic/lymphatic complaints Physical Exam Vital Signs: Last Vital Signs Temp 98.5 F 07/16/20 16:02 Pulse 75 07/16/20 16:25 Resp 20 07/16/20 16:02 BP 134/87 07/16/20 16:02 Pulse Ox 82 L 07/16/20 16:02 Body Mass Index 25.7 Const General: alert, awake and acute distress mild and respiratory Orientation/consciousness: patient oriented x3 HENMT Head: Yes normocephalic and Yes atraumatic Neck Neck: Yes trachea midline, Yes supple and Yes no JVD Chest Chest palpation & inspection: normal inspection of the chest Resp Auscultation: wheezes left lower and bronchovesicular breath sounds Cardio Jugular venous distension: no JVD Palpation: normal PMI Rate: regular rate Rhythm: regular rhythm Heart sounds: S1 normal heart sound present and S2 normal heart sound present Neuro General: patient oriented x3 Extrem General: Yes no clubbing, cyanosis or edema Psych Appearance: grossly normal Results Labs and Meds Result diagrams: 07/16/20 05:37 07/16/20 05:37 Lab results: Laboratory Results - last 24 hr 07/15/20 07/16/20 07/16/20 20:47 05:37 05:37 WBC 10.3 RBC 2.76 L Hgb 7.3 L Hct 24.0 L MCV 87.0 MCH 26.4 L MCHC 30.4 L RDW 15.3 Plt Count 369 MPV 10.7 Immature Gran % (Auto) 0.6 H Neut % (Auto) 79.3 H Lymph % (Auto) 16.7 L [place] % (Auto) 3.2 Eos % (Auto) 0.1 Baso % (Auto) 0.1 Lymph # (Auto) 1.7 [place] # (Auto) 0.3 Eos # (Auto) 0.0 Baso # (Auto) 0.0 Abs Immat Gran (auto) 0.06 H Absolute Neuts (auto) 8.2 Absolute Nucleated RBC 0.000 Nucleated RBC % (auto) 0.0 Sodium 138 Potassium 3.8 Chloride 90 L Carbon Dioxide 38 H Anion Gap 14 BUN 13 Creatinine 0.66 Estim Creat Clear Calc 89.0 Estimated GFR > 60 POC Glucose 164 H Fasting Glucose 176 H Calcium 8.0 L Magnesium 1.5 L Troponin I High Sens 07/16/20 07/16/20 07/16/20 07:51 11:27 11:55 WBC RBC Hgb Hct MCV MCH MCHC RDW Plt Count MPV Immature Gran % (Auto) Neut % (Auto) Lymph % (Auto) [place] % (Auto) Eos % (Auto) Baso % (Auto) Lymph # (Auto) [place] # (Auto) Eos # (Auto) Baso # (Auto) Abs Immat Gran (auto) Absolute Neuts (auto) Absolute Nucleated RBC Nucleated RBC % (auto) Sodium Potassium Chloride Carbon Dioxide Anion Gap BUN Creatinine Estim Creat Clear Calc Estimated GFR POC Glucose 151 H 198 H Fasting Glucose Calcium Magnesium Troponin I High Sens 147.3 H D 07/16/20 16:36 WBC RBC Hgb Hct MCV MCH MCHC RDW Plt Count MPV Immature Gran % (Auto) Neut % (Auto) Lymph % (Auto) [place] % (Auto) Eos % (Auto) Baso % (Auto) Lymph # (Auto) [place] # (Auto) Eos # (Auto) Baso # (Auto) Abs Immat Gran (auto) Absolute Neuts (auto) Absolute Nucleated RBC Nucleated RBC % (auto) Sodium Potassium Chloride Carbon Dioxide Anion Gap BUN Creatinine Estim Creat Clear Calc Estimated GFR POC Glucose 160 H Fasting Glucose Calcium Magnesium Troponin I High Sens Progress Note: A&P Assessment and plan (1) Acute respiratory failure with hypoxia: Status: Acute Assessment and Plan: Acute respiratory failure with hypoxia secondary to COVID pneumonia. Unlikely represents congestive heart failure despite elevated BNP. Clinically appears to be euvolemic and well compensated. Avoid diuretic therapy at this point time. Continue supportive care. Discussed with her about abstinence from cocaine as well as heroin. Complains of chest tightness which appears to be secondary to bronchospastic airway disease. Would suggest bronchodilator therapy for the same. (2) Elevated troponin: Status: Acute Assessment and Plan: Elevated troponin with rise and fall could be due to myocardial injury secondary to acute hypoxia and COVID infection. Also could be secondary NSTEMI related to hypoxia and COVID related thrombosis. Continue medical therapy and conservative oxygen replacement therapy. No obvious need for IV heparin at this point time. Patient developed recurrent elevation troponin or EKG changes may consider IV heparin at that point in time. (3) Elevated brain natriuretic peptide (BNP) level: Status: Acute Assessment and Plan: Elevated BNP without any evidence of overt heart failure. Unclear etiology could. Could be related to acute RV strain. Avoid significant diuresis. Will sign of the case. Feel free to consult us again. Fall Risk Details Current Medications: Current Medications Generic Name Dose Route Start Last Admin Trade Name Freq PRN Reason Stop Dose Admin Acetaminophen 650 mg 07/13/20 14:03 Acetaminophen 325 Mg Tablet PO Q6H PRN Pain, Mild (Pain Scale 1-3) Albuterol Sulfate 2 puff 07/16/20 12:00 07/16/20 16:25 Albuterol Sulfate 90 Mcg 8 Gm Inhaler INHALE 2 puff RQ4H WHILE AWAKE PRECIOUS Administration Amoxicillin/Clavulanate Potassium 875 mg 07/14/20 14:00 07/16/20 14:51 Amoxicillin/Potassium Clav 875 Mg Tablet PO 875 mg Q12H PRECIOUS Administration Aspirin 81 mg 07/14/20 12:45 07/16/20 09:00 Aspirin Enteric Coated 81 Mg Tablet.Dr PO 81 mg DAILY PRECIOUS Administration Atorvastatin Calcium 40 mg 07/14/20 21:00 07/15/20 21:29 Atorvastatin Calcium 40 Mg Tablet PO 40 mg BEDTIME PRECIOUS Administration Bupropion HCl 300 mg 07/15/20 09:00 07/16/20 09:00 Bupropion Hcl Xl 300 Mg Tab.Er.24h PO 300 mg DAILY PRECIOUS Administration Dexamethasone Sodium Phosphate 6 mg 07/14/20 09:00 07/16/20 09:00 Dexamethasone Sod Phosphate 4 Mg/Ml Vial IVPUSH 6 mg DAILY PRECIOUS Administration Docusate Sodium 100 mg 07/13/20 14:03 Docusate Sodium 100 Mg Capsule PO DAILY PRN Constipation Doxycycline Hyclate 100 mg 07/14/20 13:00 07/16/20 11:57 Doxycycline Hyclate 100 Mg Tablet PO 100 mg Q12H PRECIOUS Administration Enoxaparin Sodium 40 mg 07/13/20 14:03 07/16/20 14:51 Enoxaparin Sodium 40 Mg/0.4 Ml Syringe SUBCUT 40 mg Q24H PRECIOUS Administration Fluticasone Propionate 2 puff 07/14/20 20:00 07/16/20 09:06 Fluticasone Propionate 100 Mcg Blst.W.Dev INHALE 2 puff RBID PRECIOUS Administration Furosemide 20 mg 07/16/20 09:00 07/16/20 09:00 Furosemide 20 Mg Tablet PO 20 mg DAILY PRECIOUS Administration Protocol Gabapentin 600 mg 07/14/20 15:00 07/16/20 14:51 Gabapentin 600 Mg Tablet PO 600 mg TID PRECIOUS Administration Insulin Glargine 20 unit 07/14/20 12:45 07/16/20 09:00 Insulin Glargine,Hum.Rec.Anlog 100 Unit/Ml 10 Ml Vial SUBCUT 20 unit DAILY PRECIOUS Administration Insulin Human Lispro 0 unit 07/13/20 16:30 07/16/20 17:48 Insulin Lispro 100 Unit/Ml 3 Ml Vial SUBCUT 2 unit QIDACHS PRECIOUS Administration Protocol Lisinopril 10 mg 07/15/20 09:00 07/16/20 11:24 Lisinopril 10 Mg Tablet PO 10 mg DAILY PRECIOUS Administration Protocol Metformin HCl 1,000 mg 07/14/20 12:45 07/16/20 17:49 Metformin Hcl 1,000 Mg Tablet PO 1,000 mg BIDWM PRECIOUS Administration Methadone HCl 90 mg 07/14/20 12:45 07/16/20 09:00 Methadone Hcl 1 Mg/0.1 Ml Oral.Conc PO 90 mg DAILY PRECIOUS Administration Nicotine 14 mg 07/14/20 09:00 07/16/20 09:00 Nicotine 14 Mg Patch.Td24 TRANSDERMA 14 mg DAILY PRECIOUS Administration Nystatin 1 appl 07/14/20 15:15 07/16/20 14:52 Nystatin Powder 15 Gm Bottle TOPICAL 1 appl TID [facility] Administration Protocol Omeprazole 20 mg 07/15/20 09:00 07/16/20 11:21 Omeprazole 20 Mg Capsule.Dr PO 20 mg DAILY PRECIOUS Administration Ondansetron HCl 4 mg 07/13/20 14:03 Ondansetron Hcl 4 Mg/2 Ml Vial IVPUSH Q8H PRN Nausea and Vomiting Pharmacy Consult 1 each 07/13/20 22:30 Consult Rx Perform Med Rec MISCELLANE ONCE PRN Consult order Sodium Chloride 3 ml 07/13/20 16:00 07/16/20 17:48 0.9 % Sodium Chloride Flush 3 Ml Syringe IVFLUSH 3 ml QSHIFT PRECIOUS Administration Vitamin D 50 mcg 07/14/20 12:45 07/16/20 09:00 Cholecalciferol (Vitamin D3) 25 Mcg Tablet PO 50 mcg DAILY PRECIOUS Administration Time Spent With Patient Time: Total time spent is greater than 50% in coordination of care (as documented) at patient's floor/unit and/or counseling patient: Time with patient: 25 - 35 minutes
[2020-07-16 20:58] LABS: Glucose, Whole Blood 187 mg/dL (60-115)
[2020-07-16] MEDS: Atorvastatin Calcium 40 MG TABLET PO (21:01)
[2020-07-17] VITALS (14 sets, daily range): BP systolic 116–157; BP diastolic 53–78; PULSE 63–77; RESP 18–20; TEMP 36.1–37.3; O2SAT 90–99
[2020-07-17] MEDS: Amoxicillin/Potassium Clav 875 MG TABLET PO ×2 (02:04→15:01)
[2020-07-17 06:47] LABS: Hematocrit 24.5 % (37-47); Hemoglobin 7.6 g/dl (12.0-16.0); Mean Corpuscular Volume 87.2 fL (80-98); Mean Platelet Volume 10.6 fL (9.4-12.3); Platelet Count 364 X10*3/uL (160-400); Red Blood Count 2.81 X10*6/uL (4.20-5.50); Red Cell Distribution Width 15.4 % (11.0-16.0); White Blood Count 10.5 X10*3/uL (4.8-10.8)
[2020-07-17 07:16] LABS: Anion Gap 16 (12-20); Blood Urea Nitrogen 14 mg/dL (9-16); Calcium 8.2 mg/dL (8.4-10.2); Carbon Dioxide 34 mmol/L (22-29); Chloride 93 mmol/L (96-108); Creatinine Clr Calc Pharmacy 92.6; Estimated Glomerular Filt Rate > 60; Glucose Random 133 mg/dL (60-115); Potassium 4.5 mmol/l (3.3-5.1); Sodium 138 mmol/L (135-145)
[2020-07-17 07:24] LABS: B Type Natriuretic Peptide 210 pg/mL (<100)
[2020-07-17 08:02] LABS: Glucose, Whole Blood 141 mg/dL (60-115)
[2020-07-17] MEDS: dexAMETHasone sod phosphate 4 MG/ML VIAL 6 MG IVPUSH (08:45)
[2020-07-17] MEDS: 0.9 % Sodium Chloride Flush 3 ML SYRINGE IVFLUSH ×3 (08:45→20:46)
[2020-07-17] MEDS: Nicotine 14 MG PATCH.TD24 TRANSDERMA (08:45)
[2020-07-17] MEDS: Omeprazole 20 MG CAPSULE.DR PO (08:57)
[2020-07-17] MEDS: buPROPion HCl XL 300 MG TAB.ER.24H PO (08:57)
[2020-07-17] MEDS: Aspirin Enteric Coated 81 MG TABLET.DR PO (08:57)
[2020-07-17] MEDS: lisinopriL 10 MG TABLET PO (08:58)
[2020-07-17] MEDS: Cholecalciferol (Vitamin D3) 25 MCG TABLET 50 MCG PO (08:58)
[2020-07-17] MEDS: Gabapentin 600 MG TABLET PO ×3 (08:58→20:45)
[2020-07-17] MEDS: metFORMIN HCl 1,000 MG TABLET 1000 MG PO ×2 (08:58→16:44)
[2020-07-17] MEDS: Furosemide 20 MG TABLET PO (08:58)
[2020-07-17] MEDS: Insulin Glargine,Hum.rec.anlog 100 UNIT/ML 10 ML VIAL 20 UNIT SUBCUT (08:59)
[2020-07-17] MEDS: Nystatin Powder 15 GM BOTTLE 1 APPL TOPICAL ×3 (08:59→20:50)
[2020-07-17 11:26] LABS: Glucose, Whole Blood 191 mg/dL (60-115)
[2020-07-17] MEDS: Insulin Lispro 100 UNIT/ML 3 ML VIAL SUBCUT ×2 (11:32→16:44)
[2020-07-17] MEDS: Albuterol Sulfate 90 MCG 8 GM INHALER 2 PUFF INHALE ×3 (12:01→19:05)
[2020-07-17] MEDS: Enoxaparin Sodium 40 MG/0.4 ML SYRINGE SUBCUT (15:01)
--- NOTE | 2020-07-17 16:19 | P.PNIM_ITS ---
Subjective Subjective Date of Service: 07/17/20 Interval History: the patient was seen and evaluated this morning Laying in bed, feels comfortable overall but short of breath with minimal exertion Denies any fever, chills or chest pain Reports some chest tightness mainly after coughing No reported other overnight events. Systemic review: No fever, chills or weakness No chest pain, palpitation Reported shortness of breath or coughing No abdominal pain, nausea or vomiting No urinary symptoms No any rash or wounds Physical Exam Vital Signs: Vital Signs: Last Vital Signs Temp 98.3 F 07/17/20 15:47 Pulse 66 07/17/20 15:47 Resp 19 07/17/20 15:47 BP 145/66 H 07/17/20 15:47 Pulse Ox 99 07/17/20 15:47 Body Mass Index 25.3 Constitutional : Alert, oriented, not in distress Neck : Normal inspection, Supple Cardiovascular : RRR, S1 S2, no lower extremity edema Respiratory : Decreased bilateral air entry, no crackles, wheezes with bilateral rhonchi Gastrointestinal: soft, lax, Normal bowel sounds, Non tender Skin : Warm/Dry, No rash Neurological : Alert & oriented x3, No focal deficit Objective Data Current Medications Generic Name Dose Route Start Last Admin Trade Name Freq PRN Reason Stop Dose Admin Acetaminophen 650 mg 07/13/20 14:03 Acetaminophen 325 Mg Tablet PO Q6H PRN Pain, Mild (Pain Scale 1-3) Albuterol Sulfate 2 puff 07/16/20 12:00 07/17/20 15:40 Albuterol Sulfate 90 Mcg 8 Gm Inhaler INHALE 2 puff RQ4H WHILE AWAKE PRECIOUS Administration Amoxicillin/Clavulanate Potassium 875 mg 07/14/20 14:00 07/17/20 15:01 Amoxicillin/Potassium Clav 875 Mg Tablet PO 875 mg Q12H PRECIOUS Administration Aspirin 81 mg 07/14/20 12:45 07/17/20 08:57 Aspirin Enteric Coated 81 Mg Tablet.Dr PO 81 mg DAILY PRECIOUS Administration Atorvastatin Calcium 40 mg 07/14/20 21:00 07/16/20 21:01 Atorvastatin Calcium 40 Mg Tablet PO 40 mg BEDTIME PRECIOUS Administration Bupropion HCl 300 mg 07/15/20 09:00 07/17/20 08:57 Bupropion Hcl Xl 300 Mg Tab.Er.24h PO 300 mg DAILY PRECIOUS Administration Dexamethasone Sodium Phosphate 6 mg 07/14/20 09:00 07/17/20 08:45 Dexamethasone Sod Phosphate 4 Mg/Ml Vial IVPUSH 6 mg DAILY PRECIOUS Administration Docusate Sodium 100 mg 07/13/20 14:03 Docusate Sodium 100 Mg Capsule PO DAILY PRN Constipation Doxycycline Hyclate 100 mg 07/14/20 13:00 07/17/20 15:01 Doxycycline Hyclate 100 Mg Tablet PO 100 mg Q12H PRECIOUS Administration Enoxaparin Sodium 40 mg 07/13/20 14:03 07/17/20 15:01 Enoxaparin Sodium 40 Mg/0.4 Ml Syringe SUBCUT 40 mg Q24H PRECIOUS Administration Fluticasone Propionate 2 puff 07/14/20 20:00 07/17/20 08:12 Fluticasone Propionate 100 Mcg Blst.W.Dev INHALE Not Given RBID [facility] Furosemide 20 mg 07/16/20 09:00 07/17/20 08:58 Furosemide 20 Mg Tablet PO 20 mg DAILY PRECIOUS Administration Protocol Gabapentin 600 mg 07/14/20 15:00 07/17/20 15:01 Gabapentin 600 Mg Tablet PO 600 mg TID PRECIOUS Administration Insulin Glargine 20 unit 07/14/20 12:45 07/17/20 08:59 Insulin Glargine,Hum.Rec.Anlog 100 Unit/Ml 10 Ml Vial SUBCUT 20 unit DAILY PRECIOUS Administration Insulin Human Lispro 0 unit 07/13/20 16:30 07/17/20 11:32 Insulin Lispro 100 Unit/Ml 3 Ml Vial SUBCUT 2 unit QIDACHS PRECIOUS Administration Protocol Lisinopril 10 mg 07/15/20 09:00 07/17/20 08:58 Lisinopril 10 Mg Tablet PO 10 mg DAILY PRECIOUS Administration Protocol Metformin HCl 1,000 mg 07/14/20 12:45 07/17/20 08:58 Metformin Hcl 1,000 Mg Tablet PO 1,000 mg BIDWM PRECIOUS Administration Methadone HCl 90 mg 07/14/20 12:45 07/17/20 08:45 Methadone Hcl 1 Mg/0.1 Ml Oral.Conc PO 90 mg DAILY PRECIOUS Administration Nicotine 14 mg 07/14/20 09:00 07/17/20 08:45 Nicotine 14 Mg Patch.Td24 TRANSDERMA 14 mg DAILY PRECIOUS Administration Nystatin 1 appl 07/14/20 15:15 07/17/20 15:02 Nystatin Powder 15 Gm Bottle TOPICAL 1 appl TID PRECIOUS Administration Protocol Omeprazole 20 mg 07/15/20 09:00 07/17/20 08:57 Omeprazole 20 Mg Capsule. PO 20 mg DAILY PRECIOUS Administration Ondansetron HCl 4 mg 07/13/20 14:03 Ondansetron Hcl 4 Mg/2 Ml Vial IVPUSH Q8H PRN Nausea and Vomiting Pharmacy Consult 1 each 07/13/20 22:30 Consult Rx Perform Med Rec MISCELLANE ONCE PRN Consult order Sodium Chloride 3 ml 07/13/20 16:00 07/17/20 15:03 0.9 % Sodium Chloride Flush 3 Ml Syringe IVFLUSH 3 ml QSHIFT PRECIOUS Administration Vitamin D 50 mcg 07/14/20 12:45 07/17/20 08:58 Cholecalciferol (Vitamin D3) 25 Mcg Tablet PO 50 mcg DAILY PRECIOUS Administration Labs CBC & Chem 7: 07/17/20 05:39 07/17/20 05:39 Microbiology Microbiology Results: Microbiology 07/13/20 11:31 Blood - Venous Blood Culture - Preliminary No growth after 48 hours. 07/13/20 11:24 Blood - Venous Blood Culture - Preliminary No growth after 48 hours. Assessment and Plan (1) Pneumonia due to COVID-19 virus: Status: Acute (2) Acute respiratory failure with hypoxia: Status: Acute Assessment and Plan: This is a 60 year with diabetes hypertension history of open COPD diastolic CHF recent admission for right diabetic infection/osteomyelitis, asymptomatic osteomyelitis who returned shortness breath found to be in respiratory failure Acute respiratory failure with hypoxia Viral sepsis COVID-19 pneumonia currently on high flow Consider proning if worsen oxygen requirement Continue dexamethasone day 5 Acute on chronic diastolic CHF cxr showing some improvement, evidence that some part of hypoxia due to chf Continue oral lasix anemia inflammatory due to osteomyelitis and covid no evidence of bleed, keep hgb >7 NSTEMI likely demand ischemia Troponin repeated today, significantly Lower Right diabetic foot infection/osteomyelitis Diagnosed on last admission, BKA was deferred until resolution of covid Continue Augmentin/doxycycline Plan for BKA in future for definitive treatment Diabetes SSI, POC Opiate dependence Continue methadone Tobacco dependence Continue nicotine replacement therapy DVT PPX Lovenox
[2020-07-17 16:32] LABS: Glucose, Whole Blood 237 mg/dL (60-115)
[2020-07-17] MEDS: Fluticasone Propionate 100 MCG BLST.W.DEV 2 PUFF INHALE ×2 (19:05→19:06)
[2020-07-17 19:52] LABS: Glucose, Whole Blood 128 mg/dL (60-115)
[2020-07-17] MEDS: Atorvastatin Calcium 40 MG TABLET PO (20:45)
[2020-07-18] VITALS (9 sets, daily range): BP systolic 122–161; BP diastolic 58–86; PULSE 68–78; RESP 18–20; TEMP 36.8–37; O2SAT 90–96
[2020-07-18] MEDS: Amoxicillin/Potassium Clav 875 MG TABLET PO ×2 (01:54→13:02)
[2020-07-18] MEDS: ondansetron HCL 4 MG/2 ML VIAL IVPUSH (05:25)
[2020-07-18 07:18] LABS: Anion Gap 13 (12-20); Blood Urea Nitrogen 14 mg/dL (9-16); Calcium 8.3 mg/dL (8.4-10.2); Carbon Dioxide 35 mmol/L (22-29); Chloride 95 mmol/L (96-108); Creatinine Clr Calc Pharmacy 83.3; Estimated Glomerular Filt Rate > 60; Glucose Random 93 mg/dL (60-115); Potassium 4.4 mmol/l (3.3-5.1); Sodium 139 mmol/L (135-145)
[2020-07-18 07:59] LABS: Glucose, Whole Blood 127 mg/dL (60-115)
[2020-07-18] MEDS: dexAMETHasone sod phosphate 4 MG/ML VIAL 6 MG IVPUSH (08:44)
[2020-07-18] MEDS: Insulin Glargine,Hum.rec.anlog 100 UNIT/ML 10 ML VIAL 20 UNIT SUBCUT (08:44)
[2020-07-18] MEDS: 0.9 % Sodium Chloride Flush 3 ML SYRINGE IVFLUSH ×3 (08:44→20:44)
--- NOTE | 2020-07-18 09:13 | MHC.CM.PN ---
DP Female 60 DX Covid+ and DM foot infection. She was discharged last week with plan to return for a BKA. At that time Covid symptoms were not an issue. Once home Signs and symptoms of Covid emerged and the Pt returns for treatment of COVID. DP is home with services. Family will provide transportation. CM will follow.
[2020-07-18] MEDS: Gabapentin 600 MG TABLET PO ×2 (11:03→20:44)
[2020-07-18] MEDS: Furosemide 20 MG TABLET PO (11:03)
[2020-07-18] MEDS: metFORMIN HCl 1,000 MG TABLET 1000 MG PO ×2 (11:03→17:02)
[2020-07-18] MEDS: Cholecalciferol (Vitamin D3) 25 MCG TABLET 50 MCG PO (11:04)
[2020-07-18] MEDS: lisinopriL 10 MG TABLET PO (11:04)
[2020-07-18] MEDS: Aspirin Enteric Coated 81 MG TABLET.DR PO (11:04)
[2020-07-18] MEDS: buPROPion HCl XL 300 MG TAB.ER.24H PO (11:04)
[2020-07-18] MEDS: Nicotine 14 MG PATCH.TD24 TRANSDERMA (11:04)
[2020-07-18] MEDS: Nystatin Powder 15 GM BOTTLE 1 APPL TOPICAL ×3 (11:04→20:47)
[2020-07-18] MEDS: Omeprazole 20 MG CAPSULE.DR PO (11:04)
[2020-07-18] MEDS: Albuterol Sulfate 90 MCG 8 GM INHALER 2 PUFF INHALE ×2 (11:08→15:09)
[2020-07-18 11:39] LABS: Glucose, Whole Blood 176 mg/dL (60-115)
[2020-07-18] MEDS: Insulin Lispro 100 UNIT/ML 3 ML VIAL SUBCUT (11:55)
[2020-07-18] MEDS: Enoxaparin Sodium 40 MG/0.4 ML SYRINGE SUBCUT (13:02)
--- NOTE | 2020-07-18 13:52 | HO.PM.IMPN ---
Subjective Subjective Date of Service: 07/18/20 Interval History: the patient was seen and evaluated this morning Laying in bed, feels comfortable overall but short of breath with minimal exertion Decrease oxygen requirement to 8 L Denies any fever, chills or chest pain Reports some chest tightness mainly after coughing No reported other overnight events. Systemic review: No fever, chills or weakness No chest pain, palpitation Reported shortness of breath or coughing No abdominal pain, nausea or vomiting No urinary symptoms No any rash or wounds Physical Exam Vital Signs: Vital Signs: Last Vital Signs Temp 98.4 F 07/18/20 10:53 Pulse 78 07/18/20 11:04 Resp 18 07/18/20 10:53 BP 161/69 H 07/18/20 11:04 Pulse Ox 94 07/18/20 12:18 Body Mass Index 25.3 Constitutional : Alert, oriented, not in distress Neck : Normal inspection, Supple Cardiovascular : RRR, S1 S2, no lower extremity edema Respiratory : On nasal cannula, bilateral chest wall movement, in mild respiratory distress Gastrointestinal: soft, lax, Normal bowel sounds, Non tender Skin : Warm/Dry, No rash, right Charcot foot Neurological : Alert & oriented x3, No focal deficit Objective Data Current Medications Generic Name Dose Route Start Last Admin Trade Name Freq PRN Reason Stop Dose Admin Acetaminophen 650 mg 07/13/20 14:03 Acetaminophen 325 Mg Tablet PO Q6H PRN Pain, Mild (Pain Scale 1-3) Albuterol Sulfate 2 puff 07/16/20 12:00 07/18/20 11:08 Albuterol Sulfate 90 Mcg 8 Gm Inhaler INHALE 2 puff RQ4H WHILE AWAKE PRECIOUS Administration Amoxicillin/Clavulanate Potassium 875 mg 07/14/20 14:00 07/18/20 13:02 Amoxicillin/Potassium Clav 875 Mg Tablet PO 875 mg Q12H PRECIOUS Administration Aspirin 81 mg 07/14/20 12:45 07/18/20 11:04 Aspirin Enteric Coated 81 Mg Tablet.Dr PO 81 mg DAILY PRECIOUS Administration Atorvastatin Calcium 40 mg 07/14/20 21:00 07/17/20 20:45 Atorvastatin Calcium 40 Mg Tablet PO 40 mg BEDTIME PRECIOUS Administration Bupropion HCl 300 mg 07/15/20 09:00 07/18/20 11:04 Bupropion Hcl Xl 300 Mg Tab.Er.24h PO 300 mg DAILY PRECIOUS Administration Dexamethasone Sodium Phosphate 6 mg 07/14/20 09:00 07/18/20 08:44 Dexamethasone Sod Phosphate 4 Mg/Ml Vial IVPUSH 6 mg DAILY PRECIOUS Administration Docusate Sodium 100 mg 07/13/20 14:03 Docusate Sodium 100 Mg Capsule PO DAILY PRN Constipation Doxycycline Hyclate 100 mg 07/14/20 13:00 07/18/20 13:02 Doxycycline Hyclate 100 Mg Tablet PO 100 mg Q12H PRECIOUS Administration Enoxaparin Sodium 40 mg 07/13/20 14:03 07/18/20 13:02 Enoxaparin Sodium 40 Mg/0.4 Ml Syringe SUBCUT 40 mg Q24H PRECIOUS Administration Fluticasone Propionate 2 puff 07/14/20 20:00 07/18/20 07:23 Fluticasone Propionate 100 Mcg Blst.W.Dev INHALE Not Given RBID [facility] Furosemide 20 mg 07/16/20 09:00 07/18/20 11:03 Furosemide 20 Mg Tablet PO 20 mg DAILY PRECIOUS Administration Protocol Gabapentin 600 mg 07/14/20 15:00 07/18/20 11:03 Gabapentin 600 Mg Tablet PO 600 mg TID PRECIOUS Administration Insulin Glargine 20 unit 07/14/20 12:45 07/18/20 08:44 Insulin Glargine,Hum.Rec.Anlog 100 Unit/Ml 10 Ml Vial SUBCUT 20 unit DAILY PRECIOUS Administration Insulin Human Lispro 0 unit 07/13/20 16:30 07/18/20 11:55 Insulin Lispro 100 Unit/Ml 3 Ml Vial SUBCUT 2 unit QIDACHS PRECIOUS Administration Protocol Lisinopril 10 mg 07/15/20 09:00 07/18/20 11:04 Lisinopril 10 Mg Tablet PO 10 mg DAILY PRECIOUS Administration Protocol Metformin HCl 1,000 mg 07/14/20 12:45 07/18/20 11:03 Metformin Hcl 1,000 Mg Tablet PO 1,000 mg BIDWM PRECIOUS Administration Methadone HCl 90 mg 07/14/20 12:45 07/18/20 11:04 Methadone Hcl 1 Mg/0.1 Ml Oral.Conc PO 90 mg DAILY PRECIOUS Administration Nicotine 14 mg 07/14/20 09:00 07/18/20 11:04 Nicotine 14 Mg Patch.Td24 TRANSDERMA 14 mg DAILY PRECIOUS Administration Nystatin 1 appl 07/14/20 15:15 07/18/20 11:04 Nystatin Powder 15 Gm Bottle TOPICAL 1 appl TID PRECIOUS Administration Protocol Omeprazole 20 mg 07/15/20 09:00 07/18/20 11:04 Omeprazole 20 Mg Capsule. PO 20 mg DAILY PRECIOUS Administration Ondansetron HCl 4 mg 07/13/20 14:03 07/18/20 05:25 Ondansetron Hcl 4 Mg/2 Ml Vial IVPUSH 4 mg Q8H PRN Administration Nausea and Vomiting Pharmacy Consult 1 each 07/13/20 22:30 Consult Rx Perform Med Rec MISCELLANE ONCE PRN Consult order Sodium Chloride 3 ml 07/13/20 16:00 07/18/20 08:44 0.9 % Sodium Chloride Flush 3 Ml Syringe IVFLUSH 3 ml QSHIFT PRECIOUS Administration Vitamin D 50 mcg 07/14/20 12:45 07/18/20 11:04 Cholecalciferol (Vitamin D3) 25 Mcg Tablet PO 50 mcg DAILY PRECIOUS Administration Labs CBC & Chem 7: 07/17/20 05:39 07/18/20 06:04 Microbiology Microbiology Results: Microbiology 07/13/20 11:31 Blood - Venous Blood Culture - Final No growth after 5 days. 07/13/20 11:24 Blood - Venous Blood Culture - Final No growth after 5 days. Assessment and Plan (1) Pneumonia due to COVID-19 virus: Status: Acute (2) Acute respiratory failure with hypoxia: Status: Acute Assessment and Plan: This is a 60 year with diabetes hypertension history of open COPD diastolic CHF recent admission for right diabetic infection/osteomyelitis, asymptomatic osteomyelitis who returned shortness breath found to be in respiratory failure Acute respiratory failure with hypoxia Viral sepsis COVID-19 pneumonia currently on high flow Consider proning if worsen oxygen requirement Continue dexamethasone day 6 Acute on chronic diastolic CHF cxr showing some improvement, evidence that some part of hypoxia due to chf Continue oral lasix anemia inflammatory due to osteomyelitis and covid no evidence of bleed, keep hgb >7 NSTEMI likely demand ischemia Troponin repeated today, significantly Lower Right diabetic foot infection/osteomyelitis Diagnosed on last admission, BKA was deferred until resolution of covid Continue doxycycline DC Augmentin for GI symptoms Plan for BKA in future for definitive treatment Diabetes SSI, POC Opiate dependence Continue methadone Tobacco dependence Continue nicotine replacement therapy DVT PPX Lovenox
[2020-07-18 16:34] LABS: Glucose, Whole Blood 149 mg/dL (60-115)
[2020-07-18 20:41] LABS: Glucose, Whole Blood 132 mg/dL (60-115)
[2020-07-18] MEDS: Atorvastatin Calcium 40 MG TABLET PO (20:44)
[2020-07-19] VITALS (11 sets, daily range): BP systolic 122–143; BP diastolic 59–71; PULSE 60–75; RESP 17–20; TEMP 36.5–37.1; O2SAT 94–98; BMI 25.2
[2020-07-19 08:08] LABS: Glucose, Whole Blood 114 mg/dL (60-115)
[2020-07-19] MEDS: Albuterol Sulfate 90 MCG 8 GM INHALER 2 PUFF INHALE ×3 (08:12→21:11)
[2020-07-19] MEDS: Omeprazole 20 MG CAPSULE.DR PO (08:37)
[2020-07-19] MEDS: Aspirin Enteric Coated 81 MG TABLET.DR PO (08:37)
[2020-07-19] MEDS: dexAMETHasone sod phosphate 4 MG/ML VIAL 6 MG IVPUSH (08:37)
[2020-07-19] MEDS: metFORMIN HCl 1,000 MG TABLET 1000 MG PO ×2 (08:37→17:04)
[2020-07-19] MEDS: Cholecalciferol (Vitamin D3) 25 MCG TABLET 50 MCG PO (08:38)
[2020-07-19] MEDS: Furosemide 20 MG TABLET PO (08:38)
[2020-07-19] MEDS: Gabapentin 600 MG TABLET PO ×3 (08:38→20:50)
[2020-07-19] MEDS: lisinopriL 10 MG TABLET PO (08:38)
[2020-07-19] MEDS: buPROPion HCl XL 300 MG TAB.ER.24H PO (08:39)
[2020-07-19] MEDS: Insulin Glargine,Hum.rec.anlog 100 UNIT/ML 10 ML VIAL 20 UNIT SUBCUT (08:39)
[2020-07-19] MEDS: 0.9 % Sodium Chloride Flush 3 ML SYRINGE IVFLUSH ×3 (08:40→20:50)
[2020-07-19] MEDS: Nicotine 14 MG PATCH.TD24 TRANSDERMA (08:41)
[2020-07-19] MEDS: Nystatin Powder 15 GM BOTTLE 1 APPL TOPICAL ×3 (08:42→20:50)
[2020-07-19 11:36] LABS: Glucose, Whole Blood 170 mg/dL (60-115)
[2020-07-19] MEDS: Insulin Lispro 100 UNIT/ML 3 ML VIAL SUBCUT (11:57)
[2020-07-19] MEDS: Enoxaparin Sodium 40 MG/0.4 ML SYRINGE SUBCUT (14:56)
[2020-07-19 16:57] LABS: Glucose, Whole Blood 120 mg/dL (60-115)
--- NOTE | 2020-07-19 17:03 | HO.PM.IMPN ---
Subjective Subjective Date of Service: 07/19/20 Interval History: the patient was seen and evaluated this morning Laying in bed, feels comfortable overall but short of breath with minimal exertion Decrease oxygen requirement to 8 L Denies any fever, chills or chest pain Reports some chest tightness mainly after coughing No reported other overnight events. Systemic review: No fever, chills or weakness No chest pain, palpitation Reported shortness of breath or coughing No abdominal pain, nausea or vomiting No urinary symptoms No any rash or wounds Physical Exam Vital Signs: Vital Signs: Last Vital Signs Temp 98.2 F 07/19/20 15:47 Pulse 67 07/19/20 15:47 Resp 18 07/19/20 15:47 BP 124/67 07/19/20 15:47 Pulse Ox 97 07/19/20 15:47 Body Mass Index 25.3 Constitutional : Alert, oriented, not in distress Neck : Normal inspection, Supple Cardiovascular : RRR, S1 S2, no lower extremity edema Respiratory : On nasal cannula, bilateral chest wall movement, in mild respiratory distress Gastrointestinal: soft, lax, Normal bowel sounds, Non tender Skin : Warm/Dry, No rash, right Charcot foot Neurological : Alert & oriented x3, No focal deficit Objective Data Current Medications Generic Name Dose Route Start Last Admin Trade Name Freq PRN Reason Stop Dose Admin Acetaminophen 650 mg 07/13/20 14:03 Acetaminophen 325 Mg Tablet PO Q6H PRN Pain, Mild (Pain Scale 1-3) Albuterol Sulfate 2 puff 07/16/20 12:00 07/19/20 15:29 Albuterol Sulfate 90 Mcg 8 Gm Inhaler INHALE Not Given RQ4H WHILE AWAKE PRECIOUS Aspirin 81 mg 07/14/20 12:45 07/19/20 08:37 Aspirin Enteric Coated 81 Mg Tablet. PO 81 mg DAILY PRECIOUS Administration Atorvastatin Calcium 40 mg 07/14/20 21:00 07/18/20 20:44 Atorvastatin Calcium 40 Mg Tablet PO 40 mg BEDTIME PRECIOUS Administration Bupropion HCl 300 mg 07/15/20 09:00 07/19/20 08:39 Bupropion Hcl Xl 300 Mg Tab.Er.24h PO 300 mg DAILY PRECIOUS Administration Dexamethasone Sodium Phosphate 6 mg 07/14/20 09:00 07/19/20 08:37 Dexamethasone Sod Phosphate 4 Mg/Ml Vial IVPUSH 6 mg DAILY PRECIOUS Administration Docusate Sodium 100 mg 07/13/20 14:03 Docusate Sodium 100 Mg Capsule PO DAILY PRN Constipation Doxycycline Hyclate 100 mg 07/18/20 20:00 07/19/20 08:38 Doxycycline Hyclate 100 Mg Tablet PO 100 mg Q12H PRECIOUS Administration Enoxaparin Sodium 40 mg 07/13/20 14:03 07/19/20 14:56 Enoxaparin Sodium 40 Mg/0.4 Ml Syringe SUBCUT 40 mg Q24H PRECIOUS Administration Fluticasone Propionate 2 puff 07/14/20 20:00 07/19/20 08:13 Fluticasone Propionate 100 Mcg Blst.W.Dev INHALE Not Given RBID [facility] Furosemide 20 mg 07/16/20 09:00 07/19/20 08:38 Furosemide 20 Mg Tablet PO 20 mg DAILY PRECIOUS Administration Protocol Gabapentin 600 mg 07/14/20 15:00 07/19/20 14:56 Gabapentin 600 Mg Tablet PO 600 mg TID PRECIOUS Administration Insulin Glargine 20 unit 07/14/20 12:45 07/19/20 08:39 Insulin Glargine,Hum.Rec.Anlog 100 Unit/Ml 10 Ml Vial SUBCUT 20 unit DAILY PRECIOUS Administration Insulin Human Lispro 0 unit 07/13/20 16:30 07/19/20 11:57 Insulin Lispro 100 Unit/Ml 3 Ml Vial SUBCUT 2 unit QIDACHS [facility] Administration Protocol Lisinopril 10 mg 07/15/20 09:00 07/19/20 08:38 Lisinopril 10 Mg Tablet PO 10 mg DAILY PRECIOUS Administration Protocol Metformin HCl 1,000 mg 07/14/20 12:45 07/19/20 08:37 Metformin Hcl 1,000 Mg Tablet PO 1,000 mg BIDWM PRECIOUS Administration Methadone HCl 90 mg 07/14/20 12:45 07/19/20 08:40 Methadone Hcl 1 Mg/0.1 Ml Oral.Conc PO 90 mg DAILY PRECIOUS Administration Nicotine 14 mg 07/14/20 09:00 07/19/20 08:41 Nicotine 14 Mg Patch.Td24 TRANSDERMA 14 mg DAILY PRECIOUS Administration Nystatin 1 appl 07/14/20 15:15 07/19/20 15:08 Nystatin Powder 15 Gm Bottle TOPICAL 1 appl TID [facility] Administration Protocol Omeprazole 20 mg 07/15/20 09:00 07/19/20 08:37 Omeprazole 20 Mg Capsule. PO 20 mg DAILY PRECIOUS Administration Ondansetron HCl 4 mg 07/13/20 14:03 07/18/20 05:25 Ondansetron Hcl 4 Mg/2 Ml Vial IVPUSH 4 mg Q8H PRN Administration Nausea and Vomiting Pharmacy Consult 1 each 07/13/20 22:30 Consult Rx Perform Med Rec MISCELLANE ONCE PRN Consult order Sodium Chloride 3 ml 07/13/20 16:00 07/19/20 14:59 0.9 % Sodium Chloride Flush 3 Ml Syringe IVFLUSH 3 ml QSHIFT PRECIOUS Administration Vitamin D 50 mcg 07/14/20 12:45 07/19/20 08:38 Cholecalciferol (Vitamin D3) 25 Mcg Tablet PO 50 mcg DAILY PRECIOUS Administration Labs CBC & Chem 7: 07/17/20 05:39 07/18/20 06:04 Microbiology Microbiology Results: Microbiology 07/13/20 11:31 Blood - Venous Blood Culture - Final No growth after 5 days. 07/13/20 11:24 Blood - Venous Blood Culture - Final No growth after 5 days. Assessment and Plan (1) Pneumonia due to COVID-19 virus: Status: Acute (2) Acute respiratory failure with hypoxia: Status: Acute Assessment and Plan: This is a 60 year with diabetes hypertension history of open COPD diastolic CHF recent admission for right diabetic infection/osteomyelitis, asymptomatic osteomyelitis who returned shortness breath found to be in respiratory failure Acute respiratory failure with hypoxia Viral sepsis COVID-19 pneumonia currently on high flow Consider proning if worsen oxygen requirement Continue dexamethasone day 7 Acute on chronic diastolic CHF cxr showing some improvement, evidence that some part of hypoxia due to chf Continue oral lasix anemia inflammatory due to osteomyelitis and covid no evidence of bleed, keep hgb >7 NSTEMI likely demand ischemia Troponin repeated today, significantly Lower Right diabetic foot infection/osteomyelitis Diagnosed on last admission, BKA was deferred until resolution of covid Continue doxycycline DC Augmentin for GI symptoms Plan for BKA in future for definitive treatment Diabetes SSI, POC Opiate dependence Continue methadone Tobacco dependence Continue nicotine replacement therapy DVT PPX Lovenox
[2020-07-19 20:26] LABS: Glucose, Whole Blood 130 mg/dL (60-115)
[2020-07-19] MEDS: Atorvastatin Calcium 40 MG TABLET PO (20:50)
[2020-07-19] MEDS: Fluticasone Propionate 100 MCG BLST.W.DEV 2 PUFF INHALE (21:11)
[2020-07-20] VITALS (11 sets, daily range): BP systolic 99–130; BP diastolic 53–61; PULSE 62–74; RESP 16–20; TEMP 36.2–36.9; O2SAT 86–98
[2020-07-20 07:14] LABS: Anion Gap 16 (12-20); Blood Urea Nitrogen 18 mg/dL (9-16); Calcium 8.6 mg/dL (8.4-10.2); Carbon Dioxide 31 mmol/L (22-29); Chloride 94 mmol/L (96-108); Creatinine Clr Calc Pharmacy 75.7; Estimated Glomerular Filt Rate > 60; Glucose Random 149 mg/dL (60-115); Potassium 4.7 mmol/l (3.3-5.1); Sodium 136 mmol/L (135-145)
[2020-07-20] MEDS: Fluticasone Propionate 100 MCG BLST.W.DEV 2 PUFF INHALE ×2 (08:06→20:20)
[2020-07-20] MEDS: Albuterol Sulfate 90 MCG 8 GM INHALER 2 PUFF INHALE ×4 (08:07→20:05)
[2020-07-20 08:17] LABS: Glucose, Whole Blood 141 mg/dL (60-115)
[2020-07-20] MEDS: Insulin Glargine,Hum.rec.anlog 100 UNIT/ML 10 ML VIAL 20 UNIT SUBCUT (08:20)
[2020-07-20] MEDS: dexAMETHasone sod phosphate 4 MG/ML VIAL 6 MG IVPUSH (08:21)
[2020-07-20] MEDS: Aspirin Enteric Coated 81 MG TABLET.DR PO (08:22)
[2020-07-20] MEDS: Omeprazole 20 MG CAPSULE.DR PO (08:22)
[2020-07-20] MEDS: Nicotine 14 MG PATCH.TD24 TRANSDERMA (08:22)
[2020-07-20] MEDS: Gabapentin 600 MG TABLET PO ×3 (08:22→20:00)
[2020-07-20] MEDS: lisinopriL 10 MG TABLET PO (08:24)
[2020-07-20] MEDS: buPROPion HCl XL 300 MG TAB.ER.24H PO (08:24)
[2020-07-20] MEDS: metFORMIN HCl 1,000 MG TABLET 1000 MG PO ×2 (08:26→16:40)
[2020-07-20] MEDS: Cholecalciferol (Vitamin D3) 25 MCG TABLET 50 MCG PO (08:26)
[2020-07-20] MEDS: Furosemide 20 MG TABLET PO (08:26)
[2020-07-20] MEDS: Nystatin Powder 15 GM BOTTLE 1 APPL TOPICAL ×3 (08:27→20:05)
[2020-07-20] MEDS: 0.9 % Sodium Chloride Flush 3 ML SYRINGE IVFLUSH ×3 (08:27→20:22)
[2020-07-20 11:42] LABS: Glucose, Whole Blood 200 mg/dL (60-115)
[2020-07-20] MEDS: Insulin Lispro 100 UNIT/ML 3 ML VIAL SUBCUT ×3 (11:42→20:18)
--- NOTE | 2020-07-20 12:59 | MHC.CM.PN ---
Patient is on 4 liters O2 and IV dexamethasone for COVID +. Discharge plan is home with resumption of [employer] services. Patient might need transport home. CM will continue to follow patient for discharge needs.
--- NOTE | 2020-07-20 14:20 | P.PNIM_ITS ---
Subjective Subjective Date of Service: 07/20/20 Interval History: The patient was seen and evaluated this morning Laying in bed, feels comfortable overall and shortness of breath improving Decrease oxygen requirement to 4 L Denies any fever, chills or chest pain Reports some chest tightness mainly after coughing No reported other overnight events. Systemic review: No fever, chills or weakness No chest pain, palpitation Reported shortness of breath or coughing No abdominal pain, nausea or vomiting No urinary symptoms No any rash or wounds Physical Exam Vital Signs: Vital Signs: Last Vital Signs Temp 98.2 F 07/20/20 11:16 Pulse 74 07/20/20 11:16 Resp 20 07/20/20 11:16 BP 128/61 07/20/20 11:16 Pulse Ox 96 07/20/20 11:16 Body Mass Index 25.2 Constitutional : Alert, oriented, not in distress Neck : Normal inspection, Supple Cardiovascular : RRR, S1 S2, no lower extremity edema Respiratory : On nasal cannula, bilateral chest wall movement, in mild respiratory distress Gastrointestinal: soft, lax, Normal bowel sounds, Non tender Skin : Warm/Dry, No rash, right Charcot foot Neurological : Alert & oriented x3, No focal deficit Objective Data Current Medications Generic Name Dose Route Start Last Admin Trade Name Freq PRN Reason Stop Dose Admin Acetaminophen 650 mg 07/13/20 14:03 Acetaminophen 325 Mg Tablet PO Q6H PRN Pain, Mild (Pain Scale 1-3) Albuterol Sulfate 2 puff 07/16/20 12:00 07/20/20 11:44 Albuterol Sulfate 90 Mcg 8 Gm Inhaler INHALE 2 puff RQ4H WHILE AWAKE PRECIOUS Administration Aspirin 81 mg 07/14/20 12:45 07/20/20 08:22 Aspirin Enteric Coated 81 Mg Tablet.Dr PO 81 mg DAILY PRECIOUS Administration Atorvastatin Calcium 40 mg 07/14/20 21:00 07/19/20 20:50 Atorvastatin Calcium 40 Mg Tablet PO 40 mg BEDTIME PRECIOUS Administration Bupropion HCl 300 mg 07/15/20 09:00 07/20/20 08:24 Bupropion Hcl Xl 300 Mg Tab.Er.24h PO 300 mg DAILY PRECIOUS Administration Dexamethasone Sodium Phosphate 6 mg 07/14/20 09:00 07/20/20 08:21 Dexamethasone Sod Phosphate 4 Mg/Ml Vial IVPUSH 6 mg DAILY PRECIOUS Administration Docusate Sodium 100 mg 07/13/20 14:03 Docusate Sodium 100 Mg Capsule PO DAILY PRN Constipation Doxycycline Hyclate 100 mg 07/18/20 20:00 07/20/20 08:22 Doxycycline Hyclate 100 Mg Tablet PO 100 mg Q12H PRECIOUS Administration Enoxaparin Sodium 40 mg 07/13/20 14:03 07/19/20 14:56 Enoxaparin Sodium 40 Mg/0.4 Ml Syringe SUBCUT 40 mg Q24H PRECIOUS Administration Fluticasone Propionate 2 puff 07/14/20 20:00 07/20/20 08:06 Fluticasone Propionate 100 Mcg Blst.W.Dev INHALE 2 puff RBID PRECIOUS Administration Furosemide 20 mg 07/16/20 09:00 07/20/20 08:26 Furosemide 20 Mg Tablet PO 20 mg DAILY PRECIOUS Administration Protocol Gabapentin 600 mg 07/14/20 15:00 07/20/20 08:22 Gabapentin 600 Mg Tablet PO 600 mg TID PRECIOUS Administration Insulin Glargine 20 unit 07/14/20 12:45 07/20/20 08:20 Insulin Glargine,Hum.Rec.Anlog 100 Unit/Ml 10 Ml Vial SUBCUT 20 unit DAILY PRECIOUS Administration Insulin Human Lispro 0 unit 07/13/20 16:30 07/20/20 11:42 Insulin Lispro 100 Unit/Ml 3 Ml Vial SUBCUT 2 unit QIDACHS [facility] Administration Protocol Lisinopril 10 mg 07/15/20 09:00 07/20/20 08:24 Lisinopril 10 Mg Tablet PO 10 mg DAILY PRECIOUS Administration Protocol Metformin HCl 1,000 mg 07/14/20 12:45 07/20/20 08:26 Metformin Hcl 1,000 Mg Tablet PO 1,000 mg BIDWM PRECIOUS Administration Methadone HCl 90 mg 07/14/20 12:45 07/20/20 08:22 Methadone Hcl 1 Mg/0.1 Ml Oral.Conc PO 90 mg DAILY PRECIOUS Administration Nicotine 14 mg 07/14/20 09:00 07/20/20 08:22 Nicotine 14 Mg Patch.Td24 TRANSDERMA 14 mg DAILY PRECIOUS Administration Nystatin 1 appl 07/14/20 15:15 07/20/20 08:27 Nystatin Powder 15 Gm Bottle TOPICAL 1 appl TID [facility] Administration Protocol Omeprazole 20 mg 07/15/20 09:00 07/20/20 08:22 Omeprazole 20 Mg Capsule. PO 20 mg DAILY PRECIOUS Administration Ondansetron HCl 4 mg 07/13/20 14:03 07/18/20 05:25 Ondansetron Hcl 4 Mg/2 Ml Vial IVPUSH 4 mg Q8H PRN Administration Nausea and Vomiting Pharmacy Consult 1 each 07/13/20 22:30 Consult Rx Perform Med Rec MISCELLANE ONCE PRN Consult order Sodium Chloride 3 ml 07/13/20 16:00 07/20/20 08:27 0.9 % Sodium Chloride Flush 3 Ml Syringe IVFLUSH 3 ml QSHIFT PRECIOUS Administration Vitamin D 50 mcg 07/14/20 12:45 07/20/20 08:26 Cholecalciferol (Vitamin D3) 25 Mcg Tablet PO 50 mcg DAILY PRECIOUS Administration Labs CBC & Chem 7: 07/17/20 05:39 07/20/20 05:44 Microbiology Microbiology Results: Microbiology 07/13/20 11:31 Blood - Venous Blood Culture - Final No growth after 5 days. 07/13/20 11:24 Blood - Venous Blood Culture - Final No growth after 5 days. Assessment and Plan (1) Pneumonia due to COVID-19 virus: Status: Acute (2) Acute respiratory failure with hypoxia: Status: Acute Assessment and Plan: This is a 60 year with diabetes hypertension history of open COPD diastolic CHF recent admission for right diabetic infection/osteomyelitis, asymptomatic osteomyelitis who returned shortness breath found to be in respiratory failure Acute respiratory failure with hypoxia Viral sepsis COVID-19 pneumonia Decrease oxygen supplement to 4L continue to wean down as tolerated Continue dexamethasone day 8 Acute on chronic diastolic CHF CXR showing some improvement, evidence that some part of hypoxia due to chf Continue oral lasix anemia inflammatory due to osteomyelitis and covid no evidence of bleed, keep hgb >7 NSTEMI likely demand ischemia Troponin repeated today, significantly Lower Right diabetic foot infection/osteomyelitis Diagnosed on last admission, BKA was deferred until resolution of covid Continue doxycycline DC Augmentin for GI symptoms Plan for BKA in future for definitive treatment, to follow with Dr Lemus as OP post discharge Diabetes SSI, POC Opiate dependence Continue methadone Tobacco dependence Continue nicotine replacement therapy DVT PPX Lovenox
[2020-07-20] MEDS: Enoxaparin Sodium 40 MG/0.4 ML SYRINGE SUBCUT (14:26)
[2020-07-20 16:27] LABS: Glucose, Whole Blood 212 mg/dL (60-115)
--- NOTE | 2020-07-20 16:41 | W.PM.IDCN ---
History of Present Illness Data of Consult Service Date: 07/20/20 Requesting physician: Ayla Garcia Primary Care Provider: Ellen Cheema MD HPI Reason for consult: foot infection ,diabetes She presents to hospital with worsening shortness of breath She also is planned for BKA She has COVID Review of Systems Review of Systems: Yes all other systems are reviewed and are negative Neurologic: Reports system reviewed and no additional complaints, except as documented PMFSH Past Medical History Medical History Chronic prescription opiate use COPD (chronic obstructive pulmonary disease) Depression Diabetes mellitus Diabetic foot infection Dyslipidemia Glaucoma Pulmonary emboli Pulmonary nodule Tobacco dependence Functional capacity: independent ambulation Family History Family History Other CVA (cerebral vascular accident) Family history: reviewed and not pertinent Surgical History Surgical History Cataract extraction status, left eye Cataract extraction status, right eye Hx of cholecystectomy Social History Social History Household Members: Significant Other Housing: Other Alcohol intake: never Smoking Status: Current some day smoker Tobacco Type: Cigarette Packs Per Day: 0.3 Cigarettes Per Day: 6.0 Years Smoked: 14 years old Second Hand Smoke Exposure: Yes Substance Use Type: Crack/Cocaine and Heroin service: No (hx on methadone) Current occupational status: unemployed Meds Allergies Allergy/AdvReac Type Severity Reaction Status Date / Time No Known Allergies Allergy Verified 05/03/20 13:17 Home Medications Medication Instructions Recorded Confirmed Type albuterol sulfate 90 mcg/actuation 2 puff PO Q4H PRN 04/24/20 07/13/20 History aerosol inhaler aspirin 81 mg tablet,delayed 81 mg PO DAILY 04/24/20 07/13/20 History release atorvastatin 40 mg tablet 40 mg PO BEDTIME 04/24/20 07/13/20 History bupropion HCl 150 mg tablet,12 hr 150 mg PO BID 04/24/20 07/13/20 History sustained-release cholecalciferol (vitamin D3) 50 50 mcg PO DAILY 04/24/20 07/13/20 History mcg (2,000 unit) tablet furosemide 20 mg tablet 20 mg PO QAM 04/24/20 07/13/20 History insulin degludec 100 unit/mL (3 20 unit SUBCUT BID 04/24/20 07/13/20 History mL) subcutaneous pen lancets 33 gauge #100 ea 04/24/20 07/13/20 History lisinopril 10 mg tablet 10 mg PO DAILY 04/24/20 07/13/20 History metformin 1,000 mg tablet 1,000 mg PO BIDWMEAL 04/24/20 07/13/20 History omeprazole 20 mg capsule,delayed 20 mg PO DAILY 04/24/20 07/13/20 History release gabapentin 600 mg tablet 600 mg PO TID 05/03/20 07/13/20 History Flovent HFA 2 puff INHALATION BID 05/28/20 07/13/20 History insulin aspart U-100 [Novolog 0 unit SUBCUT QIDACHS 05/28/20 07/13/20 History Flexpen U-100 Insulin] methadone [Methadone Intensol] 95 mg DAILY 05/28/20 07/13/20 History Physical Exam Vital Signs: Vital Signs: Last Vital Signs Temp 97.2 F 07/20/20 15:01 Pulse 71 07/20/20 15:01 Resp 20 07/20/20 15:01 BP 107/53 L 07/20/20 15:01 Pulse Ox 97 07/20/20 15:01 Body Mass Index 25.2 HENMT: Head: Yes normal to inspection Face and sinus: Yes normal facial exam Resp: Effort & Inspection: normal respiratory effort Cardio: Rate: regular rate Rhythm: regular rhythm GI: Palpation (GI): Soft to palpation and nontender Skin: Other: diabetic foot wounds plantar Assessment and Plan (1) Osteomyelitis: Qualifiers: Laterality: right Osteomyelitis location: foot Osteomyelitis type: chronic, with draining sinus Qualified Code(s): M86.471 - Chronic osteomyelitis with draining sinus, right ankle and foot Problem details: There is concern over longstanding foot infection Status: Acute Doxycycline 100 mg po bid for 30 days (2) Pneumonia due to COVID-19 virus: Status: Resolved Results Labs CBC & Chem 7: 07/21/20 05:43 07/21/20 05:43 Labs: BMP 07/20/20 05:44 Sodium 136 Potassium 4.7 Chloride 94 L Carbon Dioxide 31 H BUN 18 H Creatinine 0.77 Calcium 8.6 Microbiology Microbiology Results: Microbiology 07/13/20 11:31 Blood - Venous Blood Culture - Final No growth after 5 days. 07/13/20 11:24 Blood - Venous Blood Culture - Final No growth after 5 days.
[2020-07-20] MEDS: Atorvastatin Calcium 40 MG TABLET PO (20:00)
[2020-07-20 20:25] LABS: Glucose, Whole Blood 169 mg/dL (60-115)
[2020-07-21] VITALS (9 sets, daily range): BP systolic 102–132; BP diastolic 52–61; PULSE 61–72; RESP 16–20; TEMP 36.6–37.1; O2SAT 93–100
--- NOTE | 2020-07-21 05:51 | PC.NURSE ---
Alert and oriented x 4, afebrile. Lung sounds clear/diminished, tolerating oxygen at 3 LPM nasal cannula. Slept all night with no acute issues noted.
[2020-07-21 06:21] LABS: Hematocrit 27.8 % (37-47); Hemoglobin 8.3 g/dl (12.0-16.0); Mean Corpuscular HGB Conc 29.9 g/dl (31.0-35.0); Mean Corpuscular Hemoglobin 26.7 pg (27.0-33.0); Mean Corpuscular Volume 89.4 fL (80-98); Mean Platelet Volume 10.6 fL (9.4-12.3); Platelet Count 349 X10*3/uL (160-400); Red Blood Count 3.11 X10*6/uL (4.20-5.50); Red Cell Distribution Width 17.1 % (11.0-16.0); White Blood Count 7.5 X10*3/uL (4.8-10.8)
[2020-07-21 06:39] LABS: Anion Gap 16 (12-20); Blood Urea Nitrogen 26 mg/dL (9-16); Carbon Dioxide 30 mmol/L (22-29); Chloride 95 mmol/L (96-108); Creatinine Clr Calc Pharmacy 63.3; Estimated Glomerular Filt Rate > 60; Glucose Random 177 mg/dL (60-115); Potassium 5.1 mmol/l (3.3-5.1); Sodium 136 mmol/L (135-145)
[2020-07-21] MEDS: Albuterol Sulfate 90 MCG 8 GM INHALER 2 PUFF INHALE ×4 (08:04→19:41)
[2020-07-21 08:05] LABS: Glucose, Whole Blood 156 mg/dL (60-115)
[2020-07-21] MEDS: Insulin Lispro 100 UNIT/ML 3 ML VIAL SUBCUT ×3 (08:21→16:40)
[2020-07-21] MEDS: Insulin Glargine,Hum.rec.anlog 100 UNIT/ML 10 ML VIAL 20 UNIT SUBCUT (08:22)
[2020-07-21] MEDS: Nicotine 14 MG PATCH.TD24 TRANSDERMA (08:22)
[2020-07-21] MEDS: dexAMETHasone sod phosphate 4 MG/ML VIAL 6 MG IVPUSH (08:23)
[2020-07-21] MEDS: 0.9 % Sodium Chloride Flush 3 ML SYRINGE IVFLUSH ×3 (08:25→20:24)
[2020-07-21] MEDS: metFORMIN HCl 1,000 MG TABLET 1000 MG PO ×2 (08:28→15:48)
[2020-07-21] MEDS: Gabapentin 600 MG TABLET PO ×3 (08:28→20:23)
[2020-07-21] MEDS: Cholecalciferol (Vitamin D3) 25 MCG TABLET 50 MCG PO (08:28)
[2020-07-21] MEDS: Omeprazole 20 MG CAPSULE.DR PO (08:28)
[2020-07-21] MEDS: Aspirin Enteric Coated 81 MG TABLET.DR PO (08:28)
[2020-07-21] MEDS: Furosemide 20 MG TABLET PO (08:29)
[2020-07-21] MEDS: buPROPion HCl XL 300 MG TAB.ER.24H PO (08:30)
[2020-07-21] MEDS: lisinopriL 10 MG TABLET PO (08:31)
[2020-07-21] MEDS: Nystatin Powder 15 GM BOTTLE 1 APPL TOPICAL ×3 (08:34→20:24)
[2020-07-21 11:46] LABS: Glucose, Whole Blood 171 mg/dL (60-115)
[2020-07-21] MEDS: Enoxaparin Sodium 40 MG/0.4 ML SYRINGE SUBCUT (12:10)
--- NOTE | 2020-07-21 15:50 | P.PNIM_ITS ---
Subjective Subjective Date of Service: 07/21/20 Interval History: The patient was seen and evaluated this morning Laying in bed, feels comfortable overall and shortness of breath improving Decrease oxygen requirement to 2L Denies any fever, chills or chest pain Reports some chest tightness mainly after coughing No reported other overnight events. Systemic review: No fever, chills or weakness No chest pain, palpitation Reported shortness of breath or coughing No abdominal pain, nausea or vomiting No urinary symptoms No any rash or wounds Physical Exam Vital Signs: Vital Signs: Last Vital Signs Temp 97.9 F 07/21/20 11:46 Pulse 68 07/21/20 11:46 Resp 18 07/21/20 11:46 BP 102/53 L 07/21/20 11:46 Pulse Ox 97 07/21/20 11:46 Body Mass Index 25.2 Constitutional : Alert, oriented, not in distress Neck : Normal inspection, Supple Cardiovascular : RRR, S1 S2, no lower extremity edema Respiratory : On nasal cannula, bilateral chest wall movement, in mild respiratory distress Gastrointestinal: soft, lax, Normal bowel sounds, Non tender Skin : Warm/Dry, No rash, right Charcot foot Neurological : Alert & oriented x3, No focal deficit Objective Data Current Medications Generic Name Dose Route Start Last Admin Trade Name Freq PRN Reason Stop Dose Admin Acetaminophen 650 mg 07/13/20 14:03 Acetaminophen 325 Mg Tablet PO Q6H PRN Pain, Mild (Pain Scale 1-3) Albuterol Sulfate 2 puff 07/16/20 12:00 07/21/20 15:34 Albuterol Sulfate 90 Mcg 8 Gm Inhaler INHALE 2 puff RQ4H WHILE AWAKE PRECIOUS Administration Aspirin 81 mg 07/14/20 12:45 07/21/20 08:28 Aspirin Enteric Coated 81 Mg Tablet.Dr PO 81 mg DAILY PRECIOUS Administration Atorvastatin Calcium 40 mg 07/14/20 21:00 07/20/20 20:00 Atorvastatin Calcium 40 Mg Tablet PO 40 mg BEDTIME PRECIOUS Administration Bupropion HCl 300 mg 07/15/20 09:00 07/21/20 08:30 Bupropion Hcl Xl 300 Mg Tab.Er.24h PO 300 mg DAILY PRECIOUS Administration Dexamethasone Sodium Phosphate 6 mg 07/14/20 09:00 07/21/20 08:23 Dexamethasone Sod Phosphate 4 Mg/Ml Vial IVPUSH 6 mg DAILY PRECIOUS Administration Docusate Sodium 100 mg 07/13/20 14:03 Docusate Sodium 100 Mg Capsule PO DAILY PRN Constipation Doxycycline Hyclate 100 mg 07/18/20 20:00 07/21/20 08:30 Doxycycline Hyclate 100 Mg Tablet PO 100 mg Q12H PRECIOUS Administration Enoxaparin Sodium 40 mg 07/13/20 14:03 07/21/20 12:10 Enoxaparin Sodium 40 Mg/0.4 Ml Syringe SUBCUT 40 mg Q24H PRECIOUS Administration Furosemide 20 mg 07/16/20 09:00 07/21/20 08:29 Furosemide 20 Mg Tablet PO 20 mg DAILY PRECIOUS Administration Protocol Gabapentin 600 mg 07/14/20 15:00 07/21/20 15:49 Gabapentin 600 Mg Tablet PO 600 mg TID PRECIOUS Administration Insulin Glargine 20 unit 07/14/20 12:45 07/21/20 08:22 Insulin Glargine,Hum.Rec.Anlog 100 Unit/Ml 10 Ml Vial SUBCUT 1 unit DAILY PRECIOUS Administration Insulin Human Lispro 0 unit 07/13/20 16:30 07/21/20 12:09 Insulin Lispro 100 Unit/Ml 3 Ml Vial SUBCUT 2 unit QIDACHS [facility] Administration Protocol Lisinopril 10 mg 07/15/20 09:00 07/21/20 08:31 Lisinopril 10 Mg Tablet PO 10 mg DAILY [facility]OSU Administration Protocol Metformin HCl 1,000 mg 07/14/20 12:45 07/21/20 15:48 Metformin Hcl 1,000 Mg Tablet PO 1,000 mg BIDWM PRECIOUS Administration Methadone HCl 90 mg 07/14/20 12:45 07/21/20 08:25 Methadone Hcl 1 Mg/0.1 Ml Oral.Conc PO 90 mg DAILY PRECIOUS Administration Nicotine 14 mg 07/14/20 09:00 07/21/20 08:22 Nicotine 14 Mg Patch.Td24 TRANSDERMA 14 mg DAILY PRECIOUS Administration Nystatin 1 appl 07/14/20 15:15 07/21/20 15:49 Nystatin Powder 15 Gm Bottle TOPICAL 1 appl TID [facility] Administration Protocol Omeprazole 20 mg 07/15/20 09:00 07/21/20 08:28 Omeprazole 20 Mg Capsule.Dr PO 20 mg DAILY PRECIOUS Administration Ondansetron HCl 4 mg 07/13/20 14:03 07/18/20 05:25 Ondansetron Hcl 4 Mg/2 Ml Vial IVPUSH 4 mg Q8H PRN Administration Nausea and Vomiting Pharmacy Consult 1 each 07/13/20 22:30 Consult Rx Perform Med Rec MISCELLANE ONCE PRN Consult order Sodium Chloride 3 ml 07/13/20 16:00 07/21/20 15:49 0.9 % Sodium Chloride Flush 3 Ml Syringe IVFLUSH 3 ml QSHIFT PRECIOUS Administration Vitamin D 50 mcg 07/14/20 12:45 07/21/20 08:28 Cholecalciferol (Vitamin D3) 25 Mcg Tablet PO 50 mcg DAILY PRECIOUS Administration Labs CBC & Chem 7: 07/21/20 05:43 07/21/20 05:43 Microbiology Microbiology Results: Microbiology 07/13/20 11:31 Blood - Venous Blood Culture - Final No growth after 5 days. 07/13/20 11:24 Blood - Venous Blood Culture - Final No growth after 5 days. Assessment and Plan (1) Pneumonia due to COVID-19 virus: Status: Acute (2) Acute respiratory failure with hypoxia: Status: Acute Assessment and Plan: This is a 60 year with diabetes hypertension history of open COPD diastolic CHF recent admission for right diabetic infection/osteomyelitis, asymptomatic osteomyelitis who returned shortness breath found to be in respiratory failure Acute respiratory failure with hypoxia Viral sepsis COVID-19 pneumonia Decrease oxygen supplement to 2L continue to wean down as tolerated Continue dexamethasone day 9 Acute on chronic diastolic CHF CXR showing some improvement, evidence that some part of hypoxia due to chf Continue oral lasix anemia inflammatory due to osteomyelitis and covid no evidence of bleed, keep hgb >7 NSTEMI likely demand ischemia Troponin repeated today, significantly Lower Right diabetic foot infection/osteomyelitis Diagnosed on last admission, BKA was deferred until resolution of covid Continue doxycycline for 30 days per ID DC Augmentin for GI symptoms Plan for BKA in future for definitive treatment, to follow with Dr Lemus as OP post discharge Diabetes SSI, POC Opiate dependence Continue methadone Tobacco dependence Continue nicotine replacement therapy DVT PPX Lovenox
[2020-07-21 16:32] LABS: Glucose, Whole Blood 177 mg/dL (60-115)
[2020-07-21 20:17] LABS: Glucose, Whole Blood 143 mg/dL (60-115)
[2020-07-21] MEDS: Atorvastatin Calcium 40 MG TABLET PO (20:23)
[2020-07-22 03:46] VITALS: BP 134/62; PULSE 61; RESP 18; TEMP 36.9; O2SAT 93
[2020-07-22 07:56] LABS: Glucose, Whole Blood 183 mg/dL (60-115)
[2020-07-22 08:00] VITALS: BP 118/60; PULSE 69; RESP 18; TEMP 36.7; O2SAT 93
[2020-07-22 08:07] VITALS: PULSE 64; O2SAT 92
[2020-07-22] MEDS: Albuterol Sulfate 90 MCG 8 GM INHALER 2 PUFF INHALE ×2 (08:07→11:35)
[2020-07-22] MEDS: Nicotine 14 MG PATCH.TD24 TRANSDERMA (08:42)
[2020-07-22] MEDS: Cholecalciferol (Vitamin D3) 25 MCG TABLET 50 MCG PO (08:42)
[2020-07-22] MEDS: Omeprazole 20 MG CAPSULE.DR PO (08:42)
[2020-07-22] MEDS: Gabapentin 600 MG TABLET PO (08:42)
[2020-07-22] MEDS: metFORMIN HCl 1,000 MG TABLET 1000 MG PO (08:42)
[2020-07-22] MEDS: Furosemide 20 MG TABLET PO (08:42)
[2020-07-22] MEDS: 0.9 % Sodium Chloride Flush 3 ML SYRINGE IVFLUSH (08:43)
[2020-07-22] MEDS: dexAMETHasone sod phosphate 4 MG/ML VIAL 6 MG IVPUSH (08:43)
[2020-07-22] MEDS: Insulin Lispro 100 UNIT/ML 3 ML VIAL SUBCUT ×2 (08:46→11:41)
[2020-07-22] MEDS: Aspirin Enteric Coated 81 MG TABLET.DR PO (08:47)
[2020-07-22] MEDS: Insulin Glargine,Hum.rec.anlog 100 UNIT/ML 10 ML VIAL 20 UNIT SUBCUT (08:47)
[2020-07-22] MEDS: buPROPion HCl XL 300 MG TAB.ER.24H PO (08:48)
[2020-07-22] MEDS: lisinopriL 10 MG TABLET PO (08:49)
[2020-07-22] MEDS: Nystatin Powder 15 GM BOTTLE 1 APPL TOPICAL (08:50)
--- NOTE | 2020-07-22 10:16 | MHC.CM.PN ---
Patient has been medically cleared for dc to home today no skilled services ([employer] services should resume as before). Last IMM addressed on 07/20/20.
[2020-07-22 11:41] LABS: Glucose, Whole Blood 162 mg/dL (60-115)
--- NOTE | 2020-07-22 14:01 | PM.DS ---
DS: Providers Provider Date of Service: 07/22/20 Date of admission: 07/13/20 14:03 Primary care physician: Ellen Cheema MD Consults: 07/13/20 14:23 Consult to Cardiology Routine Consulting Provider: Omid De Guzman Reason for consultation: NSTEMI Has provider been notified: No 07/20/20 08:26 Consult to Infectious Diseases Routine Consulting Provider: Josefina Caro Reason for consultation: Charcot foot, plan to BKA, Covid19, plan for DC until surgery DS: Diagnosis Discharge Diagnosis (1) Pneumonia due to COVID-19 virus: Status: Acute (2) Acute respiratory failure with hypoxia: Status: Acute (3) New onset of congestive heart failure: Status: Acute (4) Diabetic foot infection: Status: Acute (5) Osteomyelitis: Status: Acute Problem details: There is concern over longstanding foot infection DS: Medications Discharge Medications Home Medications: Home Medications Medication Instructions Recorded Confirmed albuterol sulfate 90 mcg/actuation 2 puff PO Q4H PRN 04/24/20 07/13/20 aerosol inhaler aspirin 81 mg tablet,delayed 81 mg PO DAILY 04/24/20 07/13/20 release atorvastatin 40 mg tablet 40 mg PO BEDTIME 04/24/20 07/13/20 bupropion HCl 150 mg tablet,12 hr 150 mg PO BID 04/24/20 07/13/20 sustained-release cholecalciferol (vitamin D3) 50 50 mcg PO DAILY 04/24/20 07/13/20 mcg (2,000 unit) tablet furosemide 20 mg tablet 20 mg PO QAM 04/24/20 07/13/20 insulin degludec 100 unit/mL (3 20 unit SUBCUT BID 04/24/20 07/13/20 mL) subcutaneous pen lancets 33 gauge #100 ea 04/24/20 07/13/20 lisinopril 10 mg tablet 10 mg PO DAILY 04/24/20 07/13/20 metformin 1,000 mg tablet 1,000 mg PO BIDWMEAL 04/24/20 07/13/20 omeprazole 20 mg capsule,delayed 20 mg PO DAILY 04/24/20 07/13/20 release gabapentin 600 mg tablet 600 mg PO TID 05/03/20 07/13/20 Flovent HFA 2 puff INHALATION BID 05/28/20 07/13/20 insulin aspart U-100 [Novolog 0 unit SUBCUT QIDACHS 05/28/20 07/13/20 Flexpen U-100 Insulin] methadone [Methadone Intensol] 95 mg DAILY 05/28/20 07/13/20 Previous Rx's Medication Instructions Recorded doxycycline hyclate 100 mg PO Q12H #60 tab 07/22/20 DS: Summary Hospital Course Hospital Course: Admission note HPI This is a 60-year-old female with history of diabetes and recent admission for sepsis secondary to diabetic foot ulcer/osteomyelitis/group B strep bacteremia, DKA and asymptomatic covid infection who presents the emergency department with shortness of breath. She was discharged home with Augmentin and doxy 5 colon with plan for BKA in the future. At that time she was asymptomatic with COVID. She now returns with shortness of breath starting last night. She was initially placed on BiPAP due to severe hypoxia. She has been able to be weaned down to high-flow oxygen. Lab work revealed leukocytosis of 26.5. Anemia was at baseline. Lactic acid was 2.3. BNP was 1017 and troponin 512.5. 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 She was treated with a dose of IV Zosyn, IV Lasix, IV Decadron and a decision was made to admit her for further management. Hospital course The patient was admitted to the hospital for evaluation of shortness of breath. Found to be in hypoxic respiratory failure secondary to COVID-19 infection. She was treated with IV dexamethasone for total of 10 days during the hospital stay with good response as her oxygen requirement decreased down to room air. She was also evaluated by Cardiology for acute CHF exacerbation. Echo was done showing EF of 60 65%. Evaluated for NSTEMI with EKG not showing any acute findings suggest ACS and mildly elevated troponin which was thought to be secondary to demand ischemia from infection. She has right diabetic foot infection with osteomyelitis and Charcot joint. Evaluated by ID and vascular surgery who recommended to hold on surgical intervention at this point at the ultimate treatment with be amputation. To be discharged on 30 days of doxycycline and to follow-up with Dr. Lemus as outpatient to arrange for the surgery. Time Spent with Patient Time attestation: Total time spent providing and/or coordinating discharge services: Discharge coordination time: Greater than 30 minutes Physical Exam Vital Signs: Vital Signs: Last Vital Signs Temp 98.1 F 07/22/20 08:00 Pulse 69 07/22/20 08:00 Resp 18 07/22/20 08:00 BP 118/60 07/22/20 08:00 Pulse Ox 93 07/22/20 08:00 Body Mass Index 25.2 Constitutional : Alert, oriented, not in distress Neck : Normal inspection, Supple Cardiovascular : RRR, S1 S2, no lower extremity edema Respiratory : On room air, bilateral chest wall movement, no respiratory distress Gastrointestinal: soft, lax, Normal bowel sounds, Non tender Skin : Warm/Dry, No rash, right Charcot foot covered with dressing Neurological : Alert & oriented x3, No focal deficit DS: Data Data Completed and Pending Completed studies during hospitalization [Text1]: Procedures Compression of Right Foot using Pressure Dressing (05/28/20) Labs on day of discharge: Laboratory Tests 07/13/20 07/13/20 07/13/20 09:41 10:03 10:03 WBC 26.5 H RBC 3.02 L Hgb 8.0 L Hct 25.9 L MCV 85.8 MCH 26.5 L MCHC 30.9 L RDW 15.0 Plt Count 414 H MPV 10.5 Immature Gran % (Auto) 1.0 H Neut % (Auto) 92.7 H Lymph % (Auto) 3.7 L [place] % (Auto) 2.5 Eos % (Auto) 0.0 Baso % (Auto) 0.1 Lymph # (Auto) 1.0 L [place] # (Auto) 0.7 Eos # (Auto) 0.0 Baso # (Auto) 0.0 Abs Immat Gran (auto) 0.26 H Absolute Neuts (auto) 24.6 H Absolute Nucleated RBC 0.000 Nucleated RBC % (auto) 0.0 D-Dimer ABG pH 7.48 H ABG pCO2 43 ABG pO2 48 L* ABG HCO3 31 H ABG O2 Saturation 82.3 ABG Base Excess 7.0 Oxygen Given 9-15 L Sodium 138 Potassium 3.9 Chloride 95 L Carbon Dioxide 31 H Anion Gap 16 BUN 8 L Creatinine 0.71 Estim Creat Clear Calc 75.8 Estimated GFR > 60 POC Glucose Random Glucose 157 H D Fasting Glucose Lactic Acid Lactic Acid Fup @ 2Hr Calcium 8.0 L Magnesium Ferritin Total Bilirubin 0.7 Direct Bilirubin 0.4 AST 17 D ALT 8 Alkaline Phosphatase 107 Troponin I High Sens B-Natriuretic Peptide Total Protein 6.4 L D Albumin 2.4 L D Procalcitonin Urine Opiates Screen Ur Barbiturates Screen Ur Phencyclidine Scrn Ur Amphetamines Screen U Benzodiazepines Scrn Urine Cocaine Screen U Marijuana (THC) Screen Ethyl Alcohol Coronavirus (PCR) Influenza Type A (PCR) Influenza Type B (PCR) RSV RNA Qual (PCR) 07/13/20 07/13/20 07/13/20 10:03 10:03 10:03 WBC RBC Hgb Hct MCV MCH MCHC RDW Plt Count MPV Immature Gran % (Auto) Neut % (Auto) Lymph % (Auto) [place] % (Auto) Eos % (Auto) Baso % (Auto) Lymph # (Auto) [place] # (Auto) Eos # (Auto) Baso # (Auto) Abs Immat Gran (auto) Absolute Neuts (auto) Absolute Nucleated RBC Nucleated RBC % (auto) D-Dimer 2248 ABG pH ABG pCO2 ABG pO2 ABG HCO3 ABG O2 Saturation ABG Base Excess Oxygen Given Sodium Potassium Chloride Carbon Dioxide Anion Gap BUN Creatinine Estim Creat Clear Calc Estimated GFR POC Glucose Random Glucose Fasting Glucose Lactic Acid 2.3 H* Lactic Acid Fup @ 2Hr Calcium Magnesium Ferritin Total Bilirubin Direct Bilirubin AST ALT Alkaline Phosphatase Troponin I High Sens B-Natriuretic Peptide 1017 H Total Protein Albumin Procalcitonin Urine Opiates Screen Ur Barbiturates Screen Ur Phencyclidine Scrn Ur Amphetamines Screen U Benzodiazepines Scrn Urine Cocaine Screen U Marijuana (THC) Screen Ethyl Alcohol Coronavirus (PCR) Influenza Type A (PCR) Influenza Type B (PCR) RSV RNA Qual (PCR) 07/13/20 07/13/20 07/13/20 10:03 11:24 11:24 WBC RBC Hgb Hct MCV MCH MCHC RDW Plt Count MPV Immature Gran % (Auto) Neut % (Auto) Lymph % (Auto) [place] % (Auto) Eos % (Auto) Baso % (Auto) Lymph # (Auto) [place] # (Auto) Eos # (Auto) Baso # (Auto) Abs Immat Gran (auto) Absolute Neuts (auto) Absolute Nucleated RBC Nucleated RBC % (auto) D-Dimer ABG pH ABG pCO2 ABG pO2 ABG HCO3 ABG O2 Saturation ABG Base Excess Oxygen Given Sodium Potassium Chloride Carbon Dioxide Anion Gap BUN Creatinine Estim Creat Clear Calc Estimated GFR POC Glucose Random Glucose Fasting Glucose Lactic Acid Lactic Acid Fup @ 2Hr Calcium Magnesium Ferritin 918 H Total Bilirubin Direct Bilirubin AST ALT Alkaline Phosphatase Troponin I High Sens B-Natriuretic Peptide Total Protein Albumin Procalcitonin 0.41 Urine Opiates Screen Ur Barbiturates Screen Ur Phencyclidine Scrn Ur Amphetamines Screen U Benzodiazepines Scrn Urine Cocaine Screen U Marijuana (THC) Screen Ethyl Alcohol < 10 Coronavirus (PCR) Influenza Type A (PCR) Influenza Type B (PCR) RSV RNA Qual (PCR) 07/13/20 07/13/20 07/13/20 11:24 13:07 13:07 WBC RBC Hgb Hct MCV MCH MCHC RDW Plt Count MPV Immature Gran % (Auto) Neut % (Auto) Lymph % (Auto) [place] % (Auto) Eos % (Auto) Baso % (Auto) Lymph # (Auto) [place] # (Auto) Eos # (Auto) Baso # (Auto) Abs Immat Gran (auto) Absolute Neuts (auto) Absolute Nucleated RBC Nucleated RBC % (auto) D-Dimer ABG pH ABG pCO2 ABG pO2 ABG HCO3 ABG O2 Saturation ABG Base Excess Oxygen Given Sodium Potassium Chloride Carbon Dioxide Anion Gap BUN Creatinine Estim Creat Clear Calc Estimated GFR POC Glucose Random Glucose Fasting Glucose Lactic Acid Lactic Acid Fup @ 2Hr 1.4 Calcium Magnesium Ferritin Total Bilirubin Direct Bilirubin AST ALT Alkaline Phosphatase Troponin I High Sens 512.5 H D B-Natriuretic Peptide Total Protein Albumin Procalcitonin Urine Opiates Screen Ur Barbiturates Screen Ur Phencyclidine Scrn Ur Amphetamines Screen U Benzodiazepines Scrn Urine Cocaine Screen U Marijuana (THC) Screen Ethyl Alcohol Coronavirus (PCR) POSITIVE A Influenza Type A (PCR) NEGATIVE Influenza Type B (PCR) NEGATIVE RSV RNA Qual (PCR) NEGATIVE 07/13/20 07/13/20 07/13/20 13:07 19:05 21:16 WBC RBC Hgb Hct MCV MCH MCHC RDW Plt Count MPV Immature Gran % (Auto) Neut % (Auto) Lymph % (Auto) [place] % (Auto) Eos % (Auto) Baso % (Auto) Lymph # (Auto) [place] # (Auto) Eos # (Auto) Baso # (Auto) Abs Immat Gran (auto) Absolute Neuts (auto) Absolute Nucleated RBC Nucleated RBC % (auto) D-Dimer ABG pH ABG pCO2 ABG pO2 ABG HCO3 ABG O2 Saturation ABG Base Excess Oxygen Given Sodium Potassium Chloride Carbon Dioxide Anion Gap BUN Creatinine Estim Creat Clear Calc Estimated GFR POC Glucose 199 H Random Glucose Fasting Glucose Lactic Acid Lactic Acid Fup @ 2Hr Calcium Magnesium Ferritin Total Bilirubin Direct Bilirubin AST ALT Alkaline Phosphatase Troponin I High Sens 922.4 H D B-Natriuretic Peptide Total Protein Albumin Procalcitonin Urine Opiates Screen POSITIVE H Ur Barbiturates Screen Not Detected Ur Phencyclidine Scrn Not Detected Ur Amphetamines Screen Not Detected U Benzodiazepines Scrn Not Detected Urine Cocaine Screen POSITIVE H U Marijuana (THC) Screen Not Detected Ethyl Alcohol Coronavirus (PCR) Influenza Type A (PCR) Influenza Type B (PCR) RSV RNA Qual (PCR) 07/14/20 07/14/20 07/14/20 05:47 05:47 07:58 WBC 16.4 H RBC 2.76 L Hgb 7.3 L Hct 23.3 L MCV 84.4 MCH 26.4 L MCHC 31.3 RDW 15.4 Plt Count 389 MPV 10.7 Immature Gran % (Auto) 0.6 H Neut % (Auto) 88.4 H Lymph % (Auto) 7.4 L [place] % (Auto) 3.5 Eos % (Auto) 0.0 Baso % (Auto) 0.1 Lymph # (Auto) 1.2 [place] # (Auto) 0.6 Eos # (Auto) 0.0 Baso # (Auto) 0.0 Abs Immat Gran (auto) 0.10 H Absolute Neuts (auto) 14.5 H Absolute Nucleated RBC 0.000 Nucleated RBC % (auto) 0.0 D-Dimer ABG pH ABG pCO2 ABG pO2 ABG HCO3 ABG O2 Saturation ABG Base Excess Oxygen Given Sodium 134 L Potassium 3.7 Chloride 91 L Carbon Dioxide 32 H Anion Gap 15 BUN 12 Creatinine 0.73 Estim Creat Clear Calc 80.4 Estimated GFR > 60 POC Glucose 328 H Random Glucose 349 H D Fasting Glucose Lactic Acid Lactic Acid Fup @ 2Hr Calcium 7.4 L D Magnesium Ferritin Total Bilirubin Direct Bilirubin AST ALT Alkaline Phosphatase Troponin I High Sens B-Natriuretic Peptide Total Protein Albumin Procalcitonin Urine Opiates Screen Ur Barbiturates Screen Ur Phencyclidine Scrn Ur Amphetamines Screen U Benzodiazepines Scrn Urine Cocaine Screen U Marijuana (THC) Screen Ethyl Alcohol Coronavirus (PCR) Influenza Type A (PCR) Influenza Type B (PCR) RSV RNA Qual (PCR) 07/14/20 07/14/20 07/14/20 12:07 16:41 20:30 WBC RBC Hgb Hct MCV MCH MCHC RDW Plt Count MPV Immature Gran % (Auto) Neut % (Auto) Lymph % (Auto) [place] % (Auto) Eos % (Auto) Baso % (Auto) Lymph # (Auto) [place] # (Auto) Eos # (Auto) Baso # (Auto) Abs Immat Gran (auto) Absolute Neuts (auto) Absolute Nucleated RBC Nucleated RBC % (auto) D-Dimer ABG pH ABG pCO2 ABG pO2 ABG HCO3 ABG O2 Saturation ABG Base Excess Oxygen Given Sodium Potassium Chloride Carbon Dioxide Anion Gap BUN Creatinine Estim Creat Clear Calc Estimated GFR POC Glucose 305 H 237 H 152 H Random Glucose Fasting Glucose Lactic Acid Lactic Acid Fup @ 2Hr Calcium Magnesium Ferritin Total Bilirubin Direct Bilirubin AST ALT Alkaline Phosphatase Troponin I High Sens B-Natriuretic Peptide Total Protein Albumin Procalcitonin Urine Opiates Screen Ur Barbiturates Screen Ur Phencyclidine Scrn Ur Amphetamines Screen U Benzodiazepines Scrn Urine Cocaine Screen U Marijuana (THC) Screen Ethyl Alcohol Coronavirus (PCR) Influenza Type A (PCR) Influenza Type B (PCR) RSV RNA Qual (PCR) 07/15/20 07/15/20 07/15/20 05:47 05:47 07:48 WBC 14.9 H RBC 2.76 L Hgb 7.5 L Hct 24.0 L MCV 87.0 MCH 27.2 MCHC 31.3 RDW 15.6 Plt Count 391 MPV 10.8 Immature Gran % (Auto) 0.5 H Neut % (Auto) 85.1 H Lymph % (Auto) 11.3 L [place] % (Auto) 3.0 Eos % (Auto) 0.0 Baso % (Auto) 0.1 Lymph # (Auto) 1.7 [place] # (Auto) 0.4 Eos # (Auto) 0.0 Baso # (Auto) 0.0 Abs Immat Gran (auto) 0.08 H Absolute Neuts (auto) 12.7 H Absolute Nucleated RBC 0.000 Nucleated RBC % (auto) 0.0 D-Dimer ABG pH ABG pCO2 ABG pO2 ABG HCO3 ABG O2 Saturation ABG Base Excess Oxygen Given Sodium 139 Potassium 3.5 Chloride 92 L Carbon Dioxide 38 H Anion Gap 13 BUN 12 Creatinine 0.67 Estim Creat Clear Calc 87.6 Estimated GFR > 60 POC Glucose 136 H Random Glucose Fasting Glucose 146 H D Lactic Acid Lactic Acid Fup @ 2Hr Calcium 7.9 L D Magnesium Ferritin Total Bilirubin Direct Bilirubin AST ALT Alkaline Phosphatase Troponin I High Sens B-Natriuretic Peptide Total Protein Albumin Procalcitonin Urine Opiates Screen Ur Barbiturates Screen Ur Phencyclidine Scrn Ur Amphetamines Screen U Benzodiazepines Scrn Urine Cocaine Screen U Marijuana (THC) Screen Ethyl Alcohol Coronavirus (PCR) Influenza Type A (PCR) Influenza Type B (PCR) RSV RNA Qual (PCR) 07/15/20 07/15/20 07/15/20 11:47 16:33 20:47 WBC RBC Hgb Hct MCV MCH MCHC RDW Plt Count MPV Immature Gran % (Auto) Neut % (Auto) Lymph % (Auto) [place] % (Auto) Eos % (Auto) Baso % (Auto) Lymph # (Auto) [place] # (Auto) Eos # (Auto) Baso # (Auto) Abs Immat Gran (auto) Absolute Neuts (auto) Absolute Nucleated RBC Nucleated RBC % (auto) D-Dimer ABG pH ABG pCO2 ABG pO2 ABG HCO3 ABG O2 Saturation ABG Base Excess Oxygen Given Sodium Potassium Chloride Carbon Dioxide Anion Gap BUN Creatinine Estim Creat Clear Calc Estimated GFR POC Glucose 156 H 172 H 164 H Random Glucose Fasting Glucose Lactic Acid Lactic Acid Fup @ 2Hr Calcium Magnesium Ferritin Total Bilirubin Direct Bilirubin AST ALT Alkaline Phosphatase Troponin I High Sens B-Natriuretic Peptide Total Protein Albumin Procalcitonin Urine Opiates Screen Ur Barbiturates Screen Ur Phencyclidine Scrn Ur Amphetamines Screen U Benzodiazepines Scrn Urine Cocaine Screen U Marijuana (THC) Screen Ethyl Alcohol Coronavirus (PCR) Influenza Type A (PCR) Influenza Type B (PCR) RSV RNA Qual (PCR) 07/16/20 07/16/20 07/16/20 05:37 05:37 07:51 WBC 10.3 RBC 2.76 L Hgb 7.3 L Hct 24.0 L MCV 87.0 MCH 26.4 L MCHC 30.4 L RDW 15.3 Plt Count 369 MPV 10.7 Immature Gran % (Auto) 0.6 H Neut % (Auto) 79.3 H Lymph % (Auto) 16.7 L [place] % (Auto) 3.2 Eos % (Auto) 0.1 Baso % (Auto) 0.1 Lymph # (Auto) 1.7 [place] # (Auto) 0.3 Eos # (Auto) 0.0 Baso # (Auto) 0.0 Abs Immat Gran (auto) 0.06 H Absolute Neuts (auto) 8.2 Absolute Nucleated RBC 0.000 Nucleated RBC % (auto) 0.0 D-Dimer ABG pH ABG pCO2 ABG pO2 ABG HCO3 ABG O2 Saturation ABG Base Excess Oxygen Given Sodium 138 Potassium 3.8 Chloride 90 L Carbon Dioxide 38 H Anion Gap 14 BUN 13 Creatinine 0.66 Estim Creat Clear Calc 89.0 Estimated GFR > 60 POC Glucose 151 H Random Glucose Fasting Glucose 176 H Lactic Acid Lactic Acid Fup @ 2Hr Calcium 8.0 L Magnesium 1.5 L Ferritin Total Bilirubin Direct Bilirubin AST ALT Alkaline Phosphatase Troponin I High Sens B-Natriuretic Peptide Total Protein Albumin Procalcitonin Urine Opiates Screen Ur Barbiturates Screen Ur Phencyclidine Scrn Ur Amphetamines Screen U Benzodiazepines Scrn Urine Cocaine Screen U Marijuana (THC) Screen Ethyl Alcohol Coronavirus (PCR) Influenza Type A (PCR) Influenza Type B (PCR) RSV RNA Qual (PCR) 07/16/20 07/16/20 07/16/20 11:27 11:55 16:36 WBC RBC Hgb Hct MCV MCH MCHC RDW Plt Count MPV Immature Gran % (Auto) Neut % (Auto) Lymph % (Auto) [place] % (Auto) Eos % (Auto) Baso % (Auto) Lymph # (Auto) [place] # (Auto) Eos # (Auto) Baso # (Auto) Abs Immat Gran (auto) Absolute Neuts (auto) Absolute Nucleated RBC Nucleated RBC % (auto) D-Dimer ABG pH ABG pCO2 ABG pO2 ABG HCO3 ABG O2 Saturation ABG Base Excess Oxygen Given Sodium Potassium Chloride Carbon Dioxide Anion Gap BUN Creatinine Estim Creat Clear Calc Estimated GFR POC Glucose 198 H 160 H Random Glucose Fasting Glucose Lactic Acid Lactic Acid Fup @ 2Hr Calcium Magnesium Ferritin Total Bilirubin Direct Bilirubin AST ALT Alkaline Phosphatase Troponin I High Sens 147.3 H D B-Natriuretic Peptide Total Protein Albumin Procalcitonin Urine Opiates Screen Ur Barbiturates Screen Ur Phencyclidine Scrn Ur Amphetamines Screen U Benzodiazepines Scrn Urine Cocaine Screen U Marijuana (THC) Screen Ethyl Alcohol Coronavirus (PCR) Influenza Type A (PCR) Influenza Type B (PCR) RSV RNA Qual (PCR) 07/16/20 07/17/20 07/17/20 20:51 05:39 05:39 WBC 10.5 RBC 2.81 L Hgb 7.6 L Hct 24.5 L MCV 87.2 MCH 27.0 MCHC 31.0 RDW 15.4 Plt Count 364 MPV 10.6 Immature Gran % (Auto) Neut % (Auto) Lymph % (Auto) [place] % (Auto) Eos % (Auto) Baso % (Auto) Lymph # (Auto) [place] # (Auto) Eos # (Auto) Baso # (Auto) Abs Immat Gran (auto) Absolute Neuts (auto) Absolute Nucleated RBC 0.000 Nucleated RBC % (auto) 0.0 D-Dimer ABG pH ABG pCO2 ABG pO2 ABG HCO3 ABG O2 Saturation ABG Base Excess Oxygen Given Sodium 138 Potassium 4.5 Chloride 93 L Carbon Dioxide 34 H Anion Gap 16 BUN 14 Creatinine 0.63 Estim Creat Clear Calc 92.6 Estimated GFR > 60 POC Glucose 187 H Random Glucose 133 H D Fasting Glucose Lactic Acid Lactic Acid Fup @ 2Hr Calcium 8.2 L Magnesium Ferritin Total Bilirubin Direct Bilirubin AST ALT Alkaline Phosphatase Troponin I High Sens B-Natriuretic Peptide Total Protein Albumin Procalcitonin Urine Opiates Screen Ur Barbiturates Screen Ur Phencyclidine Scrn Ur Amphetamines Screen U Benzodiazepines Scrn Urine Cocaine Screen U Marijuana (THC) Screen Ethyl Alcohol Coronavirus (PCR) Influenza Type A (PCR) Influenza Type B (PCR) RSV RNA Qual (PCR) 07/17/20 07/17/20 07/17/20 05:39 07:54 11:16 WBC RBC Hgb Hct MCV MCH MCHC RDW Plt Count MPV Immature Gran % (Auto) Neut % (Auto) Lymph % (Auto) [place] % (Auto) Eos % (Auto) Baso % (Auto) Lymph # (Auto) [place] # (Auto) Eos # (Auto) Baso # (Auto) Abs Immat Gran (auto) Absolute Neuts (auto) Absolute Nucleated RBC Nucleated RBC % (auto) D-Dimer ABG pH ABG pCO2 ABG pO2 ABG HCO3 ABG O2 Saturation ABG Base Excess Oxygen Given Sodium Potassium Chloride Carbon Dioxide Anion Gap BUN Creatinine Estim Creat Clear Calc Estimated GFR POC Glucose 141 H 191 H Random Glucose Fasting Glucose Lactic Acid Lactic Acid Fup @ 2Hr Calcium Magnesium Ferritin Total Bilirubin Direct Bilirubin AST ALT Alkaline Phosphatase Troponin I High Sens B-Natriuretic Peptide 210 H Total Protein Albumin Procalcitonin Urine Opiates Screen Ur Barbiturates Screen Ur Phencyclidine Scrn Ur Amphetamines Screen U Benzodiazepines Scrn Urine Cocaine Screen U Marijuana (THC) Screen Ethyl Alcohol Coronavirus (PCR) Influenza Type A (PCR) Influenza Type B (PCR) RSV RNA Qual (PCR) 07/17/20 07/17/20 07/18/20 16:27 19:45 06:04 WBC RBC Hgb Hct MCV MCH MCHC RDW Plt Count MPV Immature Gran % (Auto) Neut % (Auto) Lymph % (Auto) [place] % (Auto) Eos % (Auto) Baso % (Auto) Lymph # (Auto) [place] # (Auto) Eos # (Auto) Baso # (Auto) Abs Immat Gran (auto) Absolute Neuts (auto) Absolute Nucleated RBC Nucleated RBC % (auto) D-Dimer ABG pH ABG pCO2 ABG pO2 ABG HCO3 ABG O2 Saturation ABG Base Excess Oxygen Given Sodium 139 Potassium 4.4 Chloride 95 L Carbon Dioxide 35 H Anion Gap 13 BUN 14 Creatinine 0.70 Estim Creat Clear Calc 83.3 Estimated GFR > 60 POC Glucose 237 H 128 H Random Glucose 93 Fasting Glucose Lactic Acid Lactic Acid Fup @ 2Hr Calcium 8.3 L Magnesium Ferritin Total Bilirubin Direct Bilirubin AST ALT Alkaline Phosphatase Troponin I High Sens B-Natriuretic Peptide Total Protein Albumin Procalcitonin Urine Opiates Screen Ur Barbiturates Screen Ur Phencyclidine Scrn Ur Amphetamines Screen U Benzodiazepines Scrn Urine Cocaine Screen U Marijuana (THC) Screen Ethyl Alcohol Coronavirus (PCR) Influenza Type A (PCR) Influenza Type B (PCR) RSV RNA Qual (PCR) 07/18/20 07/18/20 07/18/20 07:51 11:34 16:30 WBC RBC Hgb Hct MCV MCH MCHC RDW Plt Count MPV Immature Gran % (Auto) Neut % (Auto) Lymph % (Auto) [place] % (Auto) Eos % (Auto) Baso % (Auto) Lymph # (Auto) [place] # (Auto) Eos # (Auto) Baso # (Auto) Abs Immat Gran (auto) Absolute Neuts (auto) Absolute Nucleated RBC Nucleated RBC % (auto) D-Dimer ABG pH ABG pCO2 ABG pO2 ABG HCO3 ABG O2 Saturation ABG Base Excess Oxygen Given Sodium Potassium Chloride Carbon Dioxide Anion Gap BUN Creatinine Estim Creat Clear Calc Estimated GFR POC Glucose 127 H 176 H 149 H Random Glucose Fasting Glucose Lactic Acid Lactic Acid Fup @ 2Hr Calcium Magnesium Ferritin Total Bilirubin Direct Bilirubin AST ALT Alkaline Phosphatase Troponin I High Sens B-Natriuretic Peptide Total Protein Albumin Procalcitonin Urine Opiates Screen Ur Barbiturates Screen Ur Phencyclidine Scrn Ur Amphetamines Screen U Benzodiazepines Scrn Urine Cocaine Screen U Marijuana (THC) Screen Ethyl Alcohol Coronavirus (PCR) Influenza Type A (PCR) Influenza Type B (PCR) RSV RNA Qual (PCR) 07/18/20 07/19/20 07/19/20 20:31 07:55 11:20 WBC RBC Hgb Hct MCV MCH MCHC RDW Plt Count MPV Immature Gran % (Auto) Neut % (Auto) Lymph % (Auto) [place] % (Auto) Eos % (Auto) Baso % (Auto) Lymph # (Auto) [place] # (Auto) Eos # (Auto) Baso # (Auto) Abs Immat Gran (auto) Absolute Neuts (auto) Absolute Nucleated RBC Nucleated RBC % (auto) D-Dimer ABG pH ABG pCO2 ABG pO2 ABG HCO3 ABG O2 Saturation ABG Base Excess Oxygen Given Sodium Potassium Chloride Carbon Dioxide Anion Gap BUN Creatinine Estim Creat Clear Calc Estimated GFR POC Glucose 132 H 114 170 H Random Glucose Fasting Glucose Lactic Acid Lactic Acid Fup @ 2Hr Calcium Magnesium Ferritin Total Bilirubin Direct Bilirubin AST ALT Alkaline Phosphatase Troponin I High Sens B-Natriuretic Peptide Total Protein Albumin Procalcitonin Urine Opiates Screen Ur Barbiturates Screen Ur Phencyclidine Scrn Ur Amphetamines Screen U Benzodiazepines Scrn Urine Cocaine Screen U Marijuana (THC) Screen Ethyl Alcohol Coronavirus (PCR) Influenza Type A (PCR) Influenza Type B (PCR) RSV RNA Qual (PCR) 07/19/20 07/19/20 07/20/20 16:47 20:16 05:44 WBC RBC Hgb Hct MCV MCH MCHC RDW Plt Count MPV Immature Gran % (Auto) Neut % (Auto) Lymph % (Auto) [place] % (Auto) Eos % (Auto) Baso % (Auto) Lymph # (Auto) [place] # (Auto) Eos # (Auto) Baso # (Auto) Abs Immat Gran (auto) Absolute Neuts (auto) Absolute Nucleated RBC Nucleated RBC % (auto) D-Dimer ABG pH ABG pCO2 ABG pO2 ABG HCO3 ABG O2 Saturation ABG Base Excess Oxygen Given Sodium 136 Potassium 4.7 Chloride 94 L Carbon Dioxide 31 H Anion Gap 16 BUN 18 H Creatinine 0.77 Estim Creat Clear Calc 75.7 Estimated GFR > 60 POC Glucose 120 H 130 H Random Glucose 149 H D Fasting Glucose Lactic Acid Lactic Acid Fup @ 2Hr Calcium 8.6 Magnesium Ferritin Total Bilirubin Direct Bilirubin AST ALT Alkaline Phosphatase Troponin I High Sens B-Natriuretic Peptide Total Protein Albumin Procalcitonin Urine Opiates Screen Ur Barbiturates Screen Ur Phencyclidine Scrn Ur Amphetamines Screen U Benzodiazepines Scrn Urine Cocaine Screen U Marijuana (THC) Screen Ethyl Alcohol Coronavirus (PCR) Influenza Type A (PCR) Influenza Type B (PCR) RSV RNA Qual (PCR) 07/20/20 07/20/20 07/20/20 08:05 11:35 16:22 WBC RBC Hgb Hct MCV MCH MCHC RDW Plt Count MPV Immature Gran % (Auto) Neut % (Auto) Lymph % (Auto) [place] % (Auto) Eos % (Auto) Baso % (Auto) Lymph # (Auto) [place] # (Auto) Eos # (Auto) Baso # (Auto) Abs Immat Gran (auto) Absolute Neuts (auto) Absolute Nucleated RBC Nucleated RBC % (auto) D-Dimer ABG pH ABG pCO2 ABG pO2 ABG HCO3 ABG O2 Saturation ABG Base Excess Oxygen Given Sodium Potassium Chloride Carbon Dioxide Anion Gap BUN Creatinine Estim Creat Clear Calc Estimated GFR POC Glucose 141 H 200 H 212 H Random Glucose Fasting Glucose Lactic Acid Lactic Acid Fup @ 2Hr Calcium Magnesium Ferritin Total Bilirubin Direct Bilirubin AST ALT Alkaline Phosphatase Troponin I High Sens B-Natriuretic Peptide Total Protein Albumin Procalcitonin Urine Opiates Screen Ur Barbiturates Screen Ur Phencyclidine Scrn Ur Amphetamines Screen U Benzodiazepines Scrn Urine Cocaine Screen U Marijuana (THC) Screen Ethyl Alcohol Coronavirus (PCR) Influenza Type A (PCR) Influenza Type B (PCR) RSV RNA Qual (PCR) 07/20/20 07/21/20 07/21/20 20:13 05:43 05:43 WBC 7.5 RBC 3.11 L Hgb 8.3 L Hct 27.8 L MCV 89.4 MCH 26.7 L MCHC 29.9 L RDW 17.1 H Plt Count 349 MPV 10.6 Immature Gran % (Auto) Neut % (Auto) Lymph % (Auto) [place] % (Auto) Eos % (Auto) Baso % (Auto) Lymph # (Auto) [place] # (Auto) Eos # (Auto) Baso # (Auto) Abs Immat Gran (auto) Absolute Neuts (auto) Absolute Nucleated RBC 0.000 Nucleated RBC % (auto) 0.0 D-Dimer ABG pH ABG pCO2 ABG pO2 ABG HCO3 ABG O2 Saturation ABG Base Excess Oxygen Given Sodium 136 Potassium 5.1 Chloride 95 L Carbon Dioxide 30 H Anion Gap 16 BUN 26 H Creatinine 0.92 Estim Creat Clear Calc 63.3 Estimated GFR > 60 POC Glucose 169 H Random Glucose 177 H Fasting Glucose Lactic Acid Lactic Acid Fup @ 2Hr Calcium 9.0 Magnesium Ferritin Total Bilirubin Direct Bilirubin AST ALT Alkaline Phosphatase Troponin I High Sens B-Natriuretic Peptide Total Protein Albumin Procalcitonin Urine Opiates Screen Ur Barbiturates Screen Ur Phencyclidine Scrn Ur Amphetamines Screen U Benzodiazepines Scrn Urine Cocaine Screen U Marijuana (THC) Screen Ethyl Alcohol Coronavirus (PCR) Influenza Type A (PCR) Influenza Type B (PCR) RSV RNA Qual (PCR) 07/21/20 07/21/20 07/21/20 07:55 11:41 16:24 WBC RBC Hgb Hct MCV MCH MCHC RDW Plt Count MPV Immature Gran % (Auto) Neut % (Auto) Lymph % (Auto) [place] % (Auto) Eos % (Auto) Baso % (Auto) Lymph # (Auto) [place] # (Auto) Eos # (Auto) Baso # (Auto) Abs Immat Gran (auto) Absolute Neuts (auto) Absolute Nucleated RBC Nucleated RBC % (auto) D-Dimer ABG pH ABG pCO2 ABG pO2 ABG HCO3 ABG O2 Saturation ABG Base Excess Oxygen Given Sodium Potassium Chloride Carbon Dioxide Anion Gap BUN Creatinine Estim Creat Clear Calc Estimated GFR POC Glucose 156 H 171 H 177 H Random Glucose Fasting Glucose Lactic Acid Lactic Acid Fup @ 2Hr Calcium Magnesium Ferritin Total Bilirubin Direct Bilirubin AST ALT Alkaline Phosphatase Troponin I High Sens B-Natriuretic Peptide Total Protein Albumin Procalcitonin Urine Opiates Screen Ur Barbiturates Screen Ur Phencyclidine Scrn Ur Amphetamines Screen U Benzodiazepines Scrn Urine Cocaine Screen U Marijuana (THC) Screen Ethyl Alcohol Coronavirus (PCR) Influenza Type A (PCR) Influenza Type B (PCR) RSV RNA Qual (PCR) 07/21/20 07/22/20 07/22/20 20:04 07:47 11:36 WBC RBC Hgb Hct MCV MCH MCHC RDW Plt Count MPV Immature Gran % (Auto) Neut % (Auto) Lymph % (Auto) [place] % (Auto) Eos % (Auto) Baso % (Auto) Lymph # (Auto) [place] # (Auto) Eos # (Auto) Baso # (Auto) Abs Immat Gran (auto) Absolute Neuts (auto) Absolute Nucleated RBC Nucleated RBC % (auto) D-Dimer ABG pH ABG pCO2 ABG pO2 ABG HCO3 ABG O2 Saturation ABG Base Excess Oxygen Given Sodium Potassium Chloride Carbon Dioxide Anion Gap BUN Creatinine Estim Creat Clear Calc Estimated GFR POC Glucose 143 H 183 H 162 H Random Glucose Fasting Glucose Lactic Acid Lactic Acid Fup @ 2Hr Calcium Magnesium Ferritin Total Bilirubin Direct Bilirubin AST ALT Alkaline Phosphatase Troponin I High Sens B-Natriuretic Peptide Total Protein Albumin Procalcitonin Urine Opiates Screen Ur Barbiturates Screen Ur Phencyclidine Scrn Ur Amphetamines Screen U Benzodiazepines Scrn Urine Cocaine Screen U Marijuana (THC) Screen Ethyl Alcohol Coronavirus (PCR) Influenza Type A (PCR) Influenza Type B (PCR) RSV RNA Qual (PCR) Discharge Plan Discharge Patient Disposition: Home, Self-Care Referrals: Ellen Cheema MD [Primary Care Provider] - 1 Week (TELE VISIT 08/03/[address] Hong will call you to discuss your hospital stay.) Discharge Medications: New doxycycline hyclate 100 mg Tablet 100 mg PO Q12H Qty: 60 RF: 0 Continued insulin aspart U-100 [Novolog Flexpen U-100 Insulin] 100 unit/mL (3 mL) Insulin Pen 0 unit SUBCUT QIDACHS RF: 0 Flovent HFA 110 mcg/actuation Hfa Aerosol Inhaler 2 puff INHALATION BID RF: 0 methadone [Methadone Intensol] 10 mg/mL Concentrate 95 mg DAILY RF: 0 gabapentin 600 mg tablet 600 mg PO TID RF: 0 insulin degludec 100 unit/mL (3 mL) insulin pen 20 unit subcut BID RF: 0 (DME) lancets 33 gauge misc See Rx Instructions ea Not Applicable TID Qty: 100 RF: 0 cholecalciferol (vitamin D3) 50 mcg (2,000 unit) tablet 50 mcg PO DAILY RF: 0 albuterol sulfate 90 mcg/actuation HFA aerosol inhaler 2 puff PO Q4H PRN (Reason: Respiratory Distress) RF: 0 furosemide 20 mg tablet 20 mg PO QAM RF: 0 lisinopril 10 mg tablet 10 mg PO DAILY RF: 0 omeprazole 20 mg capsule,delayed release(DR/EC) 20 mg PO DAILY RF: 0 metformin 1,000 mg tablet 1,000 mg PO BIDWMEAL RF: 0 aspirin 81 mg tablet,delayed release (DR/EC) 81 mg PO DAILY RF: 0 bupropion HCl 150 mg tablet sustained-release 12 hr 150 mg PO BID RF: 0 atorvastatin 40 mg tablet 40 mg PO BEDTIME RF: 0 Discontinued amoxicillin-pot clavulanate [Augmentin] 875-125 mg tablet 1 tab PO Q12H Qty: 42 RF: 0 doxycycline hyclate 100 mg capsule 100 mg PO BID Qty: 42 RF: 0 Discharge Orders: Discharge Order (Routine); Ordered 07/22/20 Ordered By: Jas Westfall Diet: advance to usual diet Activity on Discharge: As tolerated Discharge Date/Time: 07/22/20 12:56 Visit Report Forms: Patient Portal Discharge page Care Plan Goals: Read below Health Concerns: Read below Plan of Treatment: You were admitted to the hospital for evaluation of shortness of breath as a result of COVID-19 infection. You were treated for total of 10 days with steroids, oxygen with good response as you were weaned off the oxygen she. You were also evaluated by infectious disease specialist and surgeon for right foot infection. Dr. Lemus suggested surgery as definite treatment. To continue doxycycline for 30 days and to follow-up with Dr. Lemus in the office to arrange for surgery.
== END 2020-07-22 12:56 | disposition home or self-care (01) | DRG 871 ==
LOC: HO.ED 11:55 → HO.IMC 17:37
PROVIDERS: Physician Assistant Medical; Admitting Provider Internal Medicine; Emergency Provider Emergency Medicine; PCP Family Medicine; Visit Provider Student in an Organized Health Care Education/Training Program
DX: A41.89 Other specified sepsis (principal); U07.1 COVID-19; J12.82 Pneumonia due to coronavirus disease 2019; J96.01 Acute respiratory failure with hypoxia; I21.A1 Myocardial infarction type 2; I50.33 Acute on chronic diastolic (congestive) heart failure; F11.20 Opioid dependence, uncomplicated; M86.9 Osteomyelitis, unspecified; E78.5 Hyperlipidemia, unspecified; Z86.711 Personal history of pulmonary embolism; F17.210 Nicotine dependence, cigarettes, uncomplicated; E11.621 Type 2 diabetes mellitus with foot ulcer; E11.69 Type 2 diabetes mellitus with other specified complication; L97.519 Non-pressure chronic ulcer of other part of right foot with unspecified severity; Z71.6 Tobacco abuse counseling; Z79.4 Long term (current) use of insulin; Z79.899 Other long term (current) drug therapy
CPT/HCPCS: 0241U; 36415; 71045; 71275; 80048; 80076; 80307; 80320; 82728; 82803; 82947; 83605; 83735; 83880; 84145; 84484; 85025; 85027; 85379; 87040; 93005; 93306; 94640; 94660; 96365; 96375; 96376; 99285; J1100; J1650; J1940; J2405; J2543; J3475; Q9967

== ENCOUNTER 2020-10-11 12:11 | Emergency (ER) | payer OTHER, SELFPAY ==
--- NOTE | ~2020-10-11 | XR_ITS ---
EXAMINATION: XR ANKLE, RIGHT CLINICAL INFORMATION: Ankle pain. COMPARISON: 05/28/2020 x-ray. Bone scan 07/04/2020 demonstrated findings suspicious for acute osteomyelitis. TECHNIQUE: 4 views of the right ankle. FINDINGS: Soft tissue swelling around the ankle. Extensive bony bony abnormality, with bony destructive changes,, fragmentation or fractures in the mid and hindfoot, involving the talus, calcaneus; extensive involvement in the midfoot, involving the cuneiforms, cuboid, metatarsal bases, with evaluation limited due to overlapping structures. Limited evaluation the navicular, with probable involvement of this as well. There is prominent osseous displacement and prominent malalignment of the subtalar articulation, the Chopart and Lisfranc joints. No discrete fracture is identified of the distal tibia or fibula, with overlapping densities limiting evaluation. Limited evaluation of the tibiotalar articulation, with apparent mild anterior subluxation of the talus with respect to the distal tibia. XR/XR ankle RT 2V IMPRESSION: Extensive bony abnormality with bony destructive changes, comminution and marked malalignment in the mid and hindfoot. This includes prominent malalignment in the subtalar joint, the Chopart and Lisfranc joints. These findings are suspicious for extensive worsening osteomyelitis, given the abnormal bone scan on 07/04/2020. There may be component of Charcot's arthropathy. Travis Carbajal indicates history of fall, and there could be a component of acute fractures superimposed on the infectious process. This critical result was discussed with MARTY Moore at 1317 hours on 10/11/2020 and it was ascertained that the content and urgency of the report was understood at the time of direct communication.
[2020-10-11 12:21] VITALS: BP 151/73; PULSE 67; RESP 16; TEMP 36.8; O2SAT 98; BMI 33.3
--- NOTE | 2020-10-11 13:29 | ED.EXTPRO ---
HPI - Extremity Problem General Chief complaint: Extremity Problem Stated complaint: ankle pain Time Seen by Provider: 10/11/20 13:09 History of Present Illness HPI Narrative: Patient with history of osteomyelitis for many months in the right foot resistant to treatment complains of worsening pain in the right foot over the last 2 weeks with several falls She had a skin ulcer over this area which is healing, denies fever chills denies any other injury in her falls, she is diabetic Related Data Home Medications Medication Instructions Recorded Confirmed albuterol sulfate 90 mcg/actuation 2 puff PO Q4H PRN 04/24/20 07/13/20 aerosol inhaler aspirin 81 mg tablet,delayed 81 mg PO DAILY 04/24/20 07/13/20 release atorvastatin 40 mg tablet 40 mg PO BEDTIME 04/24/20 07/13/20 bupropion HCl 150 mg tablet,12 hr 150 mg PO BID 04/24/20 07/13/20 sustained-release cholecalciferol (vitamin D3) 50 50 mcg PO DAILY 04/24/20 07/13/20 mcg (2,000 unit) tablet furosemide 20 mg tablet 20 mg PO QAM 04/24/20 07/13/20 insulin degludec 100 unit/mL (3 20 unit SUBCUT BID 04/24/20 07/13/20 mL) subcutaneous pen lancets 33 gauge #100 ea 04/24/20 07/13/20 lisinopril 10 mg tablet 10 mg PO DAILY 04/24/20 07/13/20 metformin 1,000 mg tablet 1,000 mg PO BIDWMEAL 04/24/20 07/13/20 omeprazole 20 mg capsule,delayed 20 mg PO DAILY 04/24/20 07/13/20 release gabapentin 600 mg tablet 600 mg PO TID 05/03/20 07/13/20 Flovent HFA 2 puff INHALATION BID 05/28/20 07/13/20 insulin aspart U-100 [Novolog 0 unit SUBCUT QIDACHS 05/28/20 07/13/20 Flexpen U-100 Insulin] methadone [Methadone Intensol] 95 mg DAILY 05/28/20 07/13/20 Previous Rx's Medication Instructions Recorded doxycycline hyclate 100 mg PO Q12H #60 tab 07/22/20 walker #1 ea 10/11/20 Allergies Allergy/AdvReac Type Severity Reaction Status Date / Time No Known Allergies Allergy Verified 05/03/20 13:17 Review of Systems Review of Systems: Positive for right foot pain Negatives no fever no chills no dizziness no weakness no chest pain no shortness of breath no abdominal pain PMFSH Past Medical History Source: nursing notes reviewed Medical History Chronic prescription opiate use COPD (chronic obstructive pulmonary disease) Depression Diabetes mellitus Diabetic foot infection Dyslipidemia Glaucoma Pulmonary emboli Pulmonary nodule Tobacco dependence Surgical History Cataract extraction status, left eye Cataract extraction status, right eye Hx of cholecystectomy Family History Family History Other CVA (cerebral vascular accident) Social History Social History Household Members: Significant Other Housing: Other Alcohol intake: never Smoking Status: Current every day smoker Tobacco Type: Cigarette Packs Per Day: 0.3 Cigarettes Per Day: 6.0 Years Smoked: 14 years old Second Hand Smoke Exposure: Yes Use of substances other than those prescribed or required for medical reasons: No Substance Use Type: Crack/Cocaine and Heroin Advance Directives: No Advance Directives Information Provided: No service: No (hx on methadone) Current occupational status: unemployed Physical Exam Vital Signs: Vital Signs: Last Vital Signs Temp 98.3 F 10/11/20 12:21 Pulse 67 10/11/20 12:21 Resp 16 10/11/20 12:21 BP 151/73 H 10/11/20 12:21 Pulse Ox 98 10/11/20 12:21 Body Mass Index 33.3 General appearance no acute distress cooperative A&O x3 Head is normocephalic atraumatic Neck is supple Respiratory no distress Abdomen nontender Extremities is the right foot has dorsal swelling some ecchymosis there is some scarring of an old healed wound, there is decreased sensation in the toes, she can move the toes it is not red or warm there is no discharge there is no open wound Course Course Course Narrative: X-ray of the foot showed multiple pathologic fractures likely from osteomyelitis I informed patient that sugar was elevated at 525 and we would add a test to check for ketones and hydrate the patient and give insulin and when we returned to the room she had left and gone home so I called her at home she said she would take her insulin she can check her sugar she had no anion gap and bicarb was normal on her labs as well as her vital signs For major issue of pathologic fractures in her foot I advised her to follow closely with primary care for appropriate referrals and I gave her referrals to both Dr. Richter of Orthopedic I gave the phone number over the phone and Dr. Bennett surgeon so she will have follow-up for this badly injured foot, and she is informed she can return any time I did not start any new antibiotics as the medical record showed she had already been treated at length with IV without success and there was concern that her osteomyelitis had maxed out on treatment MDM - Extremity (Nontraumatic) Lab Data Attestation: I reviewed the patient's lab results. Result diagrams: 10/11/20 13:52 10/11/20 13:52 Labs: Lab Results 10/11/20 10/11/20 10/11/20 Range/Units 13:52 13:52 13:52 WBC 7.3 (4.8-10.8) X10*3/uL RBC 3.83 L D (4.20-5.50) X10*6/uL Hgb 10.5 L D (12.0-16.0) g/dl Hct 32.7 L (37-47) % MCV 85.4 (80-98) fL MCH 27.4 (27.0-33.0) pg MCHC 32.1 (31.0-35.0) g/dl RDW 14.4 (11.0-16.0) % Plt Count 248 D (160-400) X10*3/uL MPV 10.6 (9.4-12.3) fL Immature Gran % (Auto) 0.5 H (0.0-0.4) % Neut % (Auto) 62.5 (45-73) % Lymph % (Auto) 29.5 (20-40) % [place] % (Auto) 6.3 (2-11) % Eos % (Auto) 0.7 (0-4) % Baso % (Auto) 0.5 (0-2) % Lymph # (Auto) 2.2 (1.2-4.9) X10*3/uL [place] # (Auto) 0.5 (0.1-1.2) X10*3/uL Eos # (Auto) 0.1 (0.0-0.4) X10*3/uL Baso # (Auto) 0.0 (0.0-0.2) X10*3/uL Abs Immat Gran (auto) 0.04 H (0.00-0.03) X10*3/uL Absolute Neuts (auto) 4.6 (2.0-8.3) X10*3/uL Absolute Nucleated RBC 0.000 (0.0-0.012) X10*3/uL Nucleated RBC % (auto) 0.0 (0.0-0.2) /100WBC ESR 50 H (0-20) MM/HR Sodium 135 (135-145) mmol/L Potassium 4.7 (3.3-5.1) mmol/L Chloride 97 (96-108) mmol/L Carbon Dioxide 29 (22-29) mmol/L Anion Gap 14 (12-20) BUN 12 D (9-16) mg/dL Creatinine 1.29 (0.5-1.4) mg/dL Estim Creat Clear Calc 40.9 Estimated GFR 42 Random Glucose 539 H* (60-115) mg/dL Calcium 9.6 D (8.4-10.2) mg/dL C-Reactive Protein 0.59 H (< or = 0.50) mg/dL Discharge Plan Discharge Clinical Impression: Osteomyelitis Patient Disposition: Elopement Prescriptions: New (DME) walker Misc See Rx Instructions .ROUTE .MEDSUPPLY Qty: 1 RF: 0 No Action doxycycline hyclate 100 mg Tablet 100 mg PO Q12H Qty: 60 RF: 0 insulin aspart U-100 [Novolog Flexpen U-100 Insulin] 100 unit/mL (3 mL) Insulin Pen 0 unit SUBCUT QIDACHS RF: 0 Flovent HFA 110 mcg/actuation Hfa Aerosol Inhaler 2 puff INHALATION BID RF: 0 methadone [Methadone Intensol] 10 mg/mL Concentrate 95 mg DAILY RF: 0 gabapentin 600 mg tablet 600 mg PO TID RF: 0 insulin degludec 100 unit/mL (3 mL) insulin pen 20 unit subcut BID RF: 0 (DME) lancets 33 gauge misc See Rx Instructions ea Not Applicable TID Qty: 100 RF: 0 cholecalciferol (vitamin D3) 50 mcg (2,000 unit) tablet 50 mcg PO DAILY RF: 0 albuterol sulfate 90 mcg/actuation HFA aerosol inhaler 2 puff PO Q4H PRN (Reason: Respiratory Distress) RF: 0 furosemide 20 mg tablet 20 mg PO QAM RF: 0 lisinopril 10 mg tablet 10 mg PO DAILY RF: 0 omeprazole 20 mg capsule,delayed release(DR/EC) 20 mg PO DAILY RF: 0 metformin 1,000 mg tablet 1,000 mg PO BIDWMEAL RF: 0 aspirin 81 mg tablet,delayed release (DR/EC) 81 mg PO DAILY RF: 0 bupropion HCl 150 mg tablet sustained-release 12 hr 150 mg PO BID RF: 0 atorvastatin 40 mg tablet 40 mg PO BEDTIME RF: 0 Interventions: ED Discharge Assessment Last Done: 10/11/20 15:00 Discharge Date/Time: 10/11/20 15:00
[2020-10-11 13:59] LABS: MANUAL DIFF FLAG NO
[2020-10-11 14:09] LABS: Basophils Percent Auto 0.5 % (0-2); Eosinophils Absolute Auto 0.1 X10*3/uL (0.0-0.4); Eosinophils Percent Auto 0.7 % (0-4); Hematocrit 32.7 % (37-47); Hemoglobin 10.5 g/dl (12.0-16.0); Imm Gran Abs Auto 0.04 X10*3/uL (0.00-0.03); Imm Gran Pct Auto 0.5 % (0.0-0.4); Lymphocytes Absolute Auto 2.2 X10*3/uL (1.2-4.9); Lymphocytes Percent Auto 29.5 % (20-40); Mean Corpuscular HGB Conc 32.1 g/dl (31.0-35.0); Mean Corpuscular Hemoglobin 27.4 pg (27.0-33.0); Mean Corpuscular Volume 85.4 fL (80-98); Mean Platelet Volume 10.6 fL (9.4-12.3); Monocytes Absolute Auto 0.5 X10*3/uL (0.1-1.2); Monocytes Percent Auto 6.3 % (2-11); Neutrophils Absolute Auto 4.6 X10*3/uL (2.0-8.3); Neutrophils Percent Auto 62.5 % (45-73); Platelet Count 248 X10*3/uL (160-400); Red Blood Count 3.83 X10*6/uL (4.20-5.50); Red Cell Distribution Width 14.4 % (11.0-16.0); White Blood Count 7.3 X10*3/uL (4.8-10.8)
[2020-10-11 14:38] LABS: Anion Gap 14 (12-20); Blood Urea Nitrogen 12 mg/dL (9-16); C Reactive Protein 0.59 mg/dL (< or = 0.50); Calcium 9.6 mg/dL (8.4-10.2); Carbon Dioxide 29 mmol/L (22-29); Chloride 97 mmol/L (96-108); Creatinine Clr Calc Pharmacy 40.9; Estimated Glomerular Filt Rate 42; Glucose Random 539 mg/dL (60-115); Potassium 4.7 mmol/L (3.3-5.1); Sodium 135 mmol/L (135-145)
[2020-10-11 14:55] LABS: Erythrocyte Sedimentation Rate 50 MM/HR (0-20)
--- NOTE | 2020-10-11 14:57 | PC.NURSE ---
PT NOT IN ROOM, PT ELOPED. THIS NURSE WENT OUTSIDE TO FIND PATIENT. PT WAS GETTING INTO HER CAR WITH HER . STATED I'M NOT STAYING WHEN ASKED IF SHE WILL COME BACK IN SO WE CAN TREAT HER. PT DROVE AWAY WITH FAMILY.
== END 2020-10-11 15:00 | disposition left against medical advice (07) ==
PROVIDERS: Physician Assistant Medical; Emergency Provider Emergency Medicine; PCP Family Medicine
DX: M86.471 Chronic osteomyelitis with draining sinus, right ankle and foot (principal); M79.671 Pain in right foot; E11.9 Type 2 diabetes mellitus without complications; E78.5 Hyperlipidemia, unspecified; J44.9 Chronic obstructive pulmonary disease, unspecified; F17.210 Nicotine dependence, cigarettes, uncomplicated; Z86.711 Personal history of pulmonary embolism; Z79.899 Other long term (current) drug therapy; Z79.82 Long term (current) use of aspirin; Z79.02 Long term (current) use of antithrombotics/antiplatelets; Z79.4 Long term (current) use of insulin; Z79.891 Long term (current) use of opiate analgesic
CPT/HCPCS: 36415; 73600; 80048; 85025; 85652; 86140; 99283; 99284

== ENCOUNTER 2020-12-25 23:14 | Inpatient (IN) | payer MEDICARE, MEDICAID, SELFPAY ==
--- NOTE | ~2020-12-25 | MR_ITS ---
EXAMINATION: MRI FOOT WITHOUT AND WITH CONTRAST, RIGHT CLINICAL INFORMATION: Evaluate for osteomyelitis COMPARISON: Radiographs 12/26/2020. MRI 01/16/2020 TECHNIQUE: MRI without and with intravenous administration of 7 mL of Gadavist is performed of the right foot. FINDINGS: Chronic neuropathic changes throughout the midfoot with fractures and fragmentation, collapse of the arch with destruction of the distal talus and plantar flexion, as well as fragmentation of the navicular, cuboid and cuneiforms and forefoot adduction, significantly progressed since 01/16/2020. There is cutaneous irregularity and possible shallow ulceration plantar to the base of the 5th metatarsal much less conspicuous than the prior study. There is cortical irregularity with thickening, edema with loss of T1 fatty marrow signal and mild enhancement of the 4th and 5th metatarsal bases. There is a linear region of fluid plantar to the talus with surrounding soft tissue edema and enhancement. MR/MR foot RT wo/w con IMPRESSION: Chronic neuropathic changes throughout the midfoot which have significantly progressed since 01/16/2020. There is residual irregularity of the skin, possibly a persistent or recurrent shallow ulcer, plantar to the 5th metatarsal which is the site of the ulcer and underlying osteomyelitis on the prior study. Imaging features of a neuropathic foot and infection can be indistinguishable. As no sinus tract is identified extending from the skin wound to the underlying bone changes, which appear chronic, superimposed active osteomyelitis is considered less likely.
--- NOTE | ~2020-12-25 | XR_ITS ---
EXAMINATION: XR FOOT, RIGHT CLINICAL INFORMATION: Ulceration. Question osteomyelitis, lateral COMPARISON: 05/28/2020 TECHNIQUE: AP, lateral, and both oblique views of the right foot. FINDINGS: Since the prior study, there has been marked progression of neuropathic arthropathy at the right midfoot with extensive osseous destruction, fragmentation, and disorganization centered around the tarsometatarsal, naviculocuneiform, and Chopart joints. Much of the navicular, lateral cuneiform, cuboid, and anterior process of the calcaneus are fragmented and absent. There is marked remodeling at the bases of the third through fifth metatarsals. Surrounding soft tissues are edematous. Acute superimposed osteolysis is possible, though not definitively seen. Bones are osteopenic. A ulceration is present in the lateral soft tissues at the level of the fifth metatarsal base. XR/XR foot RT min 3V IMPRESSION: Marked progression of the Charcot arthropathy in the left midfoot since 05/28/2020. No clear radiographic findings of osteomyelitis, though sensitivity and specificity are somewhat limited given the background of neuropathic arthropathy. Consider correlation with MRI with and without contrast if clinically warrant.
--- NOTE | ~2020-12-25 | US_ITS ---
EXAMINATION: US VENOUS ULTRASOUND WITH DOPPLER LOWER EXTREMITY, RIGHT CLINICAL INFORMATION: Swelling. Pain. COMPARISON: CT abdomen pelvis dated 07/04/2020. TECHNIQUE: Ultrasound of the deep veins is performed from the hip to the calf with compression sonography and color and pulse Doppler assessment. Spectral analysis with color-flow imaging is performed. FINDINGS: There is normal venous compression and respiratory variation and augmented flow. The visualized common femoral vein, superficial femoral vein, profunda femoral vein, popliteal vein, and the trifurcation region shows no evidence of deep venous thrombosis. There is no significant popliteal fossa cyst. No evidence of thrombus in the left common femoral vein. Of note, there are multiple prominent right inguinal lymph nodes, similar to the prior CT from 07/04/2020. These measure up to 1.8 cm in short axis. The lymph nodes appear to have a normal morphology with fatty kiko. If the patient's symptoms persist, followup ultrasound in 5 days 7 days might be of value to exclude proximal propagation from a non-visualized calf vein. US/US venous duplex LE RT IMPRESSION: No DVT demonstrated in the right lower extremity. Enlarged right inguinal lymph nodes, measuring up to 1.8 cm in short axis diameter. These lymph nodes have a normal morphology and may be reactive in nature.
--- NOTE | ~2020-12-25 | XR_ITS ---
EXAMINATION: XR CHEST CLINICAL INFORMATION: Cough COMPARISON: Chest 07/15/2020 TECHNIQUE: Frontal view of the chest was obtained. FINDINGS: The lungs are well-expanded and clear of acute pneumonic process. The heart size and pulmonary vascularity is normal. Moderate spondylosis dorsal spine. XR/XR chest 1V IMPRESSION: Expanded lungs without acute process.
[2020-12-25 23:25] VITALS: BP 198/85; PULSE 93; RESP 20; TEMP 37.3; O2SAT 97; BMI 30.3
[2020-12-26] VITALS (12 sets, daily range): BP systolic 97–134; BP diastolic 45–68; PULSE 53–70; RESP 15–18; TEMP 36.8–37.6; O2SAT 95–99
--- NOTE | 2020-12-26 02:25 | PC.NURSE ---
pt right foot swollen and pt states she had a ulcer that started one year ago.
--- NOTE | 2020-12-26 03:59 | ECG_ITS ---
Test Reason : INFECTION Blood Pressure : / mmHG Vent. Rate : 058 BPM Atrial Rate : 058 BPM P-R Int : 134 ms QRS Dur : 086 ms QT Int : 570 ms P-R-T Axes : 060 022 010 degrees QTc Int : 559 ms Sinus bradycardia T wave abnormality, consider anterior ischemia Prolonged QT Abnormal ECG When compared with ECG of 16-JUL-2020 15:49, Inverted T waves have replaced nonspecific T wave abnormality in Anterior leads QT has lengthened Referred By: Eileen Cannon Electronically Signed By:Omid De Guzman
--- NOTE | 2020-12-26 04:01 | ED_ITS ---
HPI - General Adult General Chief complaint: General Medical Stated complaint: Leg pain/Fever/Vomiting Time Seen by Provider: 12/25/20 23:17 Source: patient Mode of arrival: wheelchair History of Present Illness HPI narrative: 60-year-old female diabetic who presents with nonhealing right foot ulcer wound and subsequent fever, chills, lower extremity swelling and pain. Otherwise, patient denies shortness of breath, chest pain/palpitations. Related Data Home Medications Medication Instructions Recorded Confirmed albuterol sulfate 90 mcg/actuation 2 puff PO Q4H PRN 04/24/20 07/13/20 aerosol inhaler aspirin 81 mg tablet,delayed 81 mg PO DAILY 04/24/20 07/13/20 release atorvastatin 40 mg tablet 40 mg PO BEDTIME 04/24/20 07/13/20 bupropion HCl 150 mg tablet,12 hr 150 mg PO BID 04/24/20 07/13/20 sustained-release cholecalciferol (vitamin D3) 50 50 mcg PO DAILY 04/24/20 07/13/20 mcg (2,000 unit) tablet furosemide 20 mg tablet 20 mg PO QAM 04/24/20 07/13/20 insulin degludec 100 unit/mL (3 20 unit SUBCUT BID 04/24/20 07/13/20 mL) subcutaneous pen lancets 33 gauge #100 ea 04/24/20 07/13/20 lisinopril 10 mg tablet 10 mg PO DAILY 04/24/20 07/13/20 metformin 1,000 mg tablet 1,000 mg PO BIDWMEAL 04/24/20 07/13/20 omeprazole 20 mg capsule,delayed 20 mg PO DAILY 04/24/20 07/13/20 release gabapentin 600 mg tablet 600 mg PO TID 05/03/20 07/13/20 Flovent HFA 2 puff INHALATION BID 05/28/20 07/13/20 insulin aspart U-100 [Novolog 0 unit SUBCUT QIDACHS 05/28/20 07/13/20 Flexpen U-100 Insulin] methadone [Methadone Intensol] 95 mg DAILY 05/28/20 07/13/20 Previous Rx's Medication Instructions Recorded doxycycline hyclate 100 mg PO Q12H #60 tab 07/22/20 walker #1 ea 10/11/20 Allergies Allergy/AdvReac Type Severity Reaction Status Date / Time No Known Allergies Allergy Verified 05/03/20 13:17 Review of Systems Review of Systems: Pertinent positives and negatives as stated in HPI 10 point review systems is otherwise negative. [facility] Past Medical History Source: nursing notes reviewed Medical History Chronic prescription opiate use COPD (chronic obstructive pulmonary disease) Depression Diabetes mellitus Diabetic foot infection Dyslipidemia Glaucoma New onset of congestive heart failure Pulmonary emboli Pulmonary nodule Tobacco dependence Surgical History Cataract extraction status, left eye Cataract extraction status, right eye Hx of cholecystectomy Family History Family History Other CVA (cerebral vascular accident) Social History Social History Household Members: Significant Other Housing: Other Housing Other:: hotel Do you presently have visiting nurse or other home services: Yes (nurse helps w/ foot ulcer) Alcohol intake: never Patient Tobacco Use Status: Current everyday Tobacco user Cigarette Packs Per Day: 0.3 Cigarettes Per Day: 6.0 Years Smoked: 14 years old Smoked in Last 30 Days: Yes Second Hand Smoke Exposure: Yes Use of substances other than those prescribed or required for medical reasons: No Substance Use Type: Crack/Cocaine and Heroin Advance Directives: No Advance Directives Information Provided: No Patient : No service: No (hx on methadone) Current occupational status: unemployed Physical Exam Vital Signs: Vital Signs: Last Vital Signs Temp 99.4 F 12/26/20 06:00 Pulse 61 12/26/20 07:19 Resp 18 12/26/20 07:19 BP 115/54 L 12/26/20 07:19 Pulse Ox 98 12/26/20 07:19 Body Mass Index 30.3 VITAL SIGNS: Reviewed. GENERAL: Well developed, well nourished, in no acute distress. 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 No adventitious sounds or accessory muscle use. SpO2<98> CARDIOVASCULAR: Regular rate and rhythm without noted murmurs ABDOMEN: Soft, non-tender, non-distended with bowel sounds. Right lower extremity: There is noted swelling and pain on palpation to the right lower leg without erythema and an obvious Charcot foot arthropathy with nonhealing ulcer to the lateral midfoot SKIN: Inspection of the skin reveals no rashes NEUROLOGIC: Alert and oriented x 4. Strength and sensation to light touch were grossly intact x 4. Course Course Course Narrative: 0400: This is a 60-year-old female with history and clinical presentation consistent with likely nonhealing ulcer and subsequent osteomyelitis but will rule out DVT. Lactic acid, blood cultures, antibiotics were completed. No indication at this time for sepsis fluids. Review of all investigations demonstrates evidence of infection with elevated CRP and leukocytosis. Ultrasound negative for DVT and plain x-ray findings consistent with OM. I discussed this case with inpatient hospitalist team who is agreeable for admission. Medical Decision Making Lab Data Result diagrams: 12/26/20 06:00 12/26/20 06:00 Labs: Lab Results 12/26/20 12/26/20 12/26/20 Range/Units 05:52 06:00 06:00 WBC 27.6 H (4.8-10.8) X10*3/uL RBC 3.93 L (4.20-5.50) X10*6/uL Hgb 11.7 L (12.0-16.0) g/dl Hct 34.6 L (37-47) % MCV 88.0 (80-98) fL MCH 29.8 (27.0-33.0) pg MCHC 33.8 (31.0-35.0) g/dl RDW 13.5 (11.0-16.0) % Plt Count 241 (160-400) X10*3/uL MPV 10.6 (9.4-12.3) fL Immature Gran % (Auto) 0.9 H (0.0-0.4) % Neut % (Auto) 88.0 H (45-73) % Lymph % (Auto) 6.3 L (20-40) % [place] % (Auto) 4.6 (2-11) % Eos % (Auto) 0.0 (0-4) % Baso % (Auto) 0.2 (0-2) % Lymph # (Auto) 1.8 (1.2-4.9) X10*3/uL [place] # (Auto) 1.3 H (0.1-1.2) X10*3/uL Eos # (Auto) 0.0 (0.0-0.4) X10*3/uL Baso # (Auto) 0.1 (0.0-0.2) X10*3/uL Abs Immat Gran (auto) 0.25 H (0.00-0.03) X10*3/uL Absolute Neuts (auto) 24.3 H (2.0-8.3) X10*3/uL Absolute Nucleated RBC 0.000 (0.0-0.012) X10*3/uL Nucleated RBC % (auto) 0.0 (0.0-0.2) /100WBC Smear Tech's Comments VERIFIED PT (10.8-13.0) SEC INR (0.9-1.1) Sodium 136 (135-145) mmol/L Potassium 5.1 (3.3-5.1) mmol/L Chloride 96 (96-108) mmol/L Carbon Dioxide 28 (22-29) mmol/L Anion Gap 17 (12-20) BUN 18 H (9-16) mg/dL Creatinine 0.91 (0.5-1.4) mg/dL Estim Creat Clear Calc 55.1 Estimated GFR > 60 POC Glucose (60-115) mg/dL Random Glucose 263 H D (60-115) mg/dL Lactic Acid (0.5-2.0) mmol/L Calcium 9.7 (8.4-10.2) mg/dL Magnesium 1.8 (1.6-2.6) mg/dL Total Bilirubin 0.9 (0.0-1.0) mg/dL AST 14 (5-31) U/L ALT < 6 (0-31) U/L Alkaline Phosphatase 93 (39-117) U/L C-Reactive Protein 7.86 H (< or = 0.50) mg/dL Total Protein 7.4 (6.5-8.0) g/dL Albumin 3.9 D (3.5-5.0) g/dL Acetone, Qual (Negative) COVID-19 ([facility]G) Negative (Negative) COVID-19 Clin Com See Note 12/26/20 12/26/20 12/26/20 Range/Units 06:00 06:00 06:00 WBC (4.8-10.8) X10*3/uL RBC (4.20-5.50) X10*6/uL Hgb (12.0-16.0) g/dl Hct (37-47) % MCV (80-98) fL MCH (27.0-33.0) pg MCHC (31.0-35.0) g/dl RDW (11.0-16.0) % Plt Count (160-400) X10*3/uL MPV (9.4-12.3) fL Immature Gran % (Auto) (0.0-0.4) % Neut % (Auto) (45-73) % Lymph % (Auto) (20-40) % [place] % (Auto) (2-11) % Eos % (Auto) (0-4) % Baso % (Auto) (0-2) % Lymph # (Auto) (1.2-4.9) X10*3/uL [place] # (Auto) (0.1-1.2) X10*3/uL Eos # (Auto) (0.0-0.4) X10*3/uL Baso # (Auto) (0.0-0.2) X10*3/uL Abs Immat Gran (auto) (0.00-0.03) X10*3/uL Absolute Neuts (auto) (2.0-8.3) X10*3/uL Absolute Nucleated RBC (0.0-0.012) X10*3/uL Nucleated RBC % (auto) (0.0-0.2) /100WBC Smear Tech's Comments PT 11.7 D (10.8-13.0) SEC INR 1.0 (0.9-1.1) Sodium (135-145) mmol/L Potassium (3.3-5.1) mmol/L Chloride (96-108) mmol/L Carbon Dioxide (22-29) mmol/L Anion Gap (12-20) BUN (9-16) mg/dL Creatinine (0.5-1.4) mg/dL Estim Creat Clear Calc Estimated GFR POC Glucose (60-115) mg/dL Random Glucose (60-115) mg/dL Lactic Acid 1.7 (0.5-2.0) mmol/L Calcium (8.4-10.2) mg/dL Magnesium (1.6-2.6) mg/dL Total Bilirubin (0.0-1.0) mg/dL AST (5-31) U/L ALT (0-31) U/L Alkaline Phosphatase (39-117) U/L C-Reactive Protein (< or = 0.50) mg/dL Total Protein (6.5-8.0) g/dL Albumin (3.5-5.0) g/dL Acetone, Qual Negative (Negative) COVID-19 ([facility]G) (Negative) COVID-19 Clin Com 12/26/20 Range/Units 06:09 WBC (4.8-10.8) X10*3/uL RBC (4.20-5.50) X10*6/uL Hgb (12.0-16.0) g/dl Hct (37-47) % MCV (80-98) fL MCH (27.0-33.0) pg MCHC (31.0-35.0) g/dl RDW (11.0-16.0) % Plt Count (160-400) X10*3/uL MPV (9.4-12.3) fL Immature Gran % (Auto) (0.0-0.4) % Neut % (Auto) (45-73) % Lymph % (Auto) (20-40) % [place] % (Auto) (2-11) % Eos % (Auto) (0-4) % Baso % (Auto) (0-2) % Lymph # (Auto) (1.2-4.9) X10*3/uL [place] # (Auto) (0.1-1.2) X10*3/uL Eos # (Auto) (0.0-0.4) X10*3/uL Baso # (Auto) (0.0-0.2) X10*3/uL Abs Immat Gran (auto) (0.00-0.03) X10*3/uL Absolute Neuts (auto) (2.0-8.3) X10*3/uL Absolute Nucleated RBC (0.0-0.012) X10*3/uL Nucleated RBC % (auto) (0.0-0.2) /100WBC Smear Tech's Comments PT (10.8-13.0) SEC INR (0.9-1.1) Sodium (135-145) mmol/L Potassium (3.3-5.1) mmol/L Chloride (96-108) mmol/L Carbon Dioxide (22-29) mmol/L Anion Gap (12-20) BUN (9-16) mg/dL Creatinine (0.5-1.4) mg/dL Estim Creat Clear Calc Estimated GFR POC Glucose 235 H (60-115) mg/dL Random Glucose (60-115) mg/dL Lactic Acid (0.5-2.0) mmol/L Calcium (8.4-10.2) mg/dL Magnesium (1.6-2.6) mg/dL Total Bilirubin (0.0-1.0) mg/dL AST (5-31) U/L ALT (0-31) U/L Alkaline Phosphatase (39-117) U/L C-Reactive Protein (< or = 0.50) mg/dL Total Protein (6.5-8.0) g/dL Albumin (3.5-5.0) g/dL Acetone, Qual (Negative) COVID-19 ([facility]) (Negative) COVID-19 Clin Com ECG Data Attestation: I personally reviewed and interpreted this ECG as follows: Prior ECG tracings: available for review (07/16/2020 changes are inverted T- waves in V3/V4) Interpretation: Sinus bradycardia, HR -58, inverted T-waves in V3/V4 but no STEMI, TX/QRS are within normal limits but QTC is prolonged at 5:59 a.m. Discharge Plan Discharge Clinical Impression: Diabetic foot infection, Sepsis Patient Disposition: Admitted As Inpatient Prescriptions: No Action doxycycline hyclate 100 mg Tablet 100 mg PO Q12H Qty: 60 RF: 0 (DME) walker Misc See Rx Instructions .ROUTE .MEDSUPPLY Qty: 1 RF: 0 insulin aspart U-100 [Novolog Flexpen U-100 Insulin] 100 unit/mL (3 mL) Insulin Pen 0 unit SUBCUT QIDACHS RF: 0 Flovent HFA 110 mcg/actuation Hfa Aerosol Inhaler 2 puff INHALATION BID RF: 0 methadone [Methadone Intensol] 10 mg/mL Concentrate 95 mg DAILY RF: 0 gabapentin 600 mg tablet 600 mg PO TID RF: 0 insulin degludec 100 unit/mL (3 mL) insulin pen 20 unit subcut BID RF: 0 (DME) lancets 33 gauge misc See Rx Instructions ea Not Applicable TID Qty: 100 RF: 0 cholecalciferol (vitamin D3) 50 mcg (2,000 unit) tablet 50 mcg PO DAILY RF: 0 albuterol sulfate 90 mcg/actuation HFA aerosol inhaler 2 puff PO Q4H PRN (Reason: Respiratory Distress) RF: 0 furosemide 20 mg tablet 20 mg PO QAM RF: 0 lisinopril 10 mg tablet 10 mg PO DAILY RF: 0 omeprazole 20 mg capsule,delayed release(DR/EC) 20 mg PO DAILY RF: 0 metformin 1,000 mg tablet 1,000 mg PO BIDWMEAL RF: 0 aspirin 81 mg tablet,delayed release (DR/EC) 81 mg PO DAILY RF: 0 bupropion HCl 150 mg tablet sustained-release 12 hr 150 mg PO BID RF: 0 atorvastatin 40 mg tablet 40 mg PO BEDTIME RF: 0
[2020-12-26 06:08] LABS: Basophils Absolute Auto 0.1 X10*3/uL (0.0-0.2); Basophils Percent Auto 0.2 % (0-2); Hematocrit 34.6 % (37-47); Hemoglobin 11.7 g/dl (12.0-16.0); Imm Gran Abs Auto 0.25 X10*3/uL (0.00-0.03); Imm Gran Pct Auto 0.9 % (0.0-0.4); Lymphocytes Absolute Auto 1.8 X10*3/uL (1.2-4.9); Lymphocytes Percent Auto 6.3 % (20-40); Mean Corpuscular HGB Conc 33.8 g/dl (31.0-35.0); Mean Corpuscular Hemoglobin 29.8 pg (27.0-33.0); Mean Platelet Volume 10.6 fL (9.4-12.3); Monocytes Absolute Auto 1.3 X10*3/uL (0.1-1.2); Monocytes Percent Auto 4.6 % (2-11); Neutrophils Absolute Auto 24.3 X10*3/uL (2.0-8.3); Platelet Count 241 X10*3/uL (160-400); Red Blood Count 3.93 X10*6/uL (4.20-5.50); Red Cell Distribution Width 13.5 % (11.0-16.0); SCAN SMEAR FLAG 1; White Blood Count 27.6 X10*3/uL (4.8-10.8)
[2020-12-26 06:09] LABS: MANUAL DIFF FLAG SCAN
[2020-12-26 06:13] LABS: Prothrombin Time 11.7 SEC (10.8-13.0)
[2020-12-26 06:17] LABS: Glucose, Whole Blood 235 mg/dL (60-115)
[2020-12-26 06:23] LABS: Acetone, serum QL Negative (Negative)
[2020-12-26 06:23] LABS: COVID-19 Test Negative (Negative); IDNOW Serial# 9DD0AD1C
[2020-12-26] MEDS: Piperacillin Sodium/Tazobactam 3.375 GM in 0.9 % Sodium Chloride 50 ML IV (06:26)
[2020-12-26 06:31] LABS: Alanine Aminotransferase < 6 U/L (0-31); Albumin Level 3.9 g/dL (3.5-5.0); Alkaline Phosphatase 93 U/L (39-117); Anion Gap 17 (12-20); Aspartate Amino Transferase 14 U/L (5-31); Bilirubin Total 0.9 mg/dL (0.0-1.0); Blood Urea Nitrogen 18 mg/dL (9-16); C Reactive Protein 7.86 mg/dL (< or = 0.50); Calcium 9.7 mg/dL (8.4-10.2); Carbon Dioxide 28 mmol/L (22-29); Chloride 96 mmol/L (96-108); Creatinine Clr Calc Pharmacy 55.1; Estimated Glomerular Filt Rate > 60; Glucose Random 263 mg/dL (60-115); Potassium 5.1 mmol/L (3.3-5.1); Sodium 136 mmol/L (135-145); Total Protein 7.4 g/dL (6.5-8.0)
[2020-12-26 06:34] LABS: SLIDE REVIEW VERIFIED
[2020-12-26 06:36] LABS: Lactic Acid 1.7 mmol/L (0.5-2.0)
[2020-12-26 07:20] LABS: Magnesium 1.8 mg/dL (1.6-2.6)
--- NOTE | 2020-12-26 10:14 | P.HPHOSP_ITS ---
History of Present Illness Date of Service: 12/26/20 Chief Complaint: right foot pain 60-year-old female with diabetes, hypertension right Charcot foot/joint who presented with apin in the right foot/ankle area. There is an open wound in the area with scant drainage. She has significant pain with ambulation, and la lately she has been experiencing fever. Workup in the emergency room revealed WBC 27K, xrau of foot showed no evidence of osteomyelitis, however an MRI and recommended. CRP is elevated 7. She has received Zosyn in the emergency room and is being admitted for further workup. Review of Systems Review of Systems: Gen: no fever Resp: no sob, no cough CV: no chest, no MÉNDEZ, no leg edema GI: No n/v, no abd pain Neuro: No confusion [place]: right foot pain PMFSH Medical History Chronic prescription opiate use COPD (chronic obstructive pulmonary disease) Depression Diabetes mellitus Diabetic foot infection Dyslipidemia Glaucoma New onset of congestive heart failure Pulmonary emboli Pulmonary nodule Tobacco dependence Family History Other CVA (cerebral vascular accident) Surgical History Cataract extraction status, left eye Cataract extraction status, right eye Hx of cholecystectomy Social History Household Members: Significant Other Housing: Other Housing Other:: hotel Do you presently have visiting nurse or other home services: Yes (nurse helps w/ foot ulcer) Alcohol intake: never Patient Tobacco Use Status: Current everyday Tobacco user Cigarette Packs Per Day: 0.3 Cigarettes Per Day: 6.0 Years Smoked: 14 years old Smoked in Last 30 Days: Yes Second Hand Smoke Exposure: Yes Use of substances other than those prescribed or required for medical reasons: No Substance Use Type: Crack/Cocaine and Heroin Advance Directives: No Advance Directives Information Provided: No Patient : No service: No (hx on methadone) Current occupational status: unemployed Meds Allergies Allergy/AdvReac Type Severity Reaction Status Date / Time No Known Allergies Allergy Verified 05/03/20 13:17 Active Medications: Current Medications Generic Name Dose Route Start Last Admin Trade Name Freq PRN Reason Stop Dose Admin Pharmacy Consult 1 each 12/26/20 07:47 Consult Rx Perform Med Rec MISCELLANE ONCE PRN Consult order Home Medications Medication Instructions Recorded Confirmed Last Taken Type albuterol sulfate 90 mcg/actuation 2 puff PO Q4H PRN 04/24/20 12/26/20 Unknown History aerosol inhaler aspirin 81 mg tablet,delayed 81 mg PO DAILY 04/24/20 12/26/20 12/24/20 History release atorvastatin 40 mg tablet 40 mg PO BEDTIME 04/24/20 12/26/20 12/24/20 History bupropion HCl 150 mg tablet,12 hr 150 mg PO BID 04/24/20 12/26/20 12/24/20 History sustained-release cholecalciferol (vitamin D3) 50 50 mcg PO DAILY 04/24/20 12/26/20 12/24/20 History mcg (2,000 unit) tablet furosemide 20 mg tablet 20 mg PO QAM 04/24/20 12/26/20 12/24/20 History insulin degludec 100 unit/mL (3 20 unit SUBCUT BID 04/24/20 12/26/20 12/25/20 History mL) subcutaneous pen lancets 33 gauge #100 ea 04/24/20 07/13/20 Unknown History lisinopril 10 mg tablet 10 mg PO DAILY 04/24/20 12/26/20 12/24/20 History metformin 1,000 mg tablet 1,000 mg PO BIDWMEAL 04/24/20 12/26/20 12/24/20 Hist ory omeprazole 20 mg capsule,delayed 20 mg PO DAILY 04/24/20 12/26/20 12/24/20 History release gabapentin 600 mg tablet 600 mg PO TID 05/03/20 12/26/20 12/24/20 History Flovent HFA 2 puff INHALATION BID 05/28/20 12/26/20 12/24/20 History methadone [Methadone Intensol] 95 mg DAILY 05/28/20 12/26/20 12/25/20 History insulin aspart U-100 [Novolog 4 - 28 unit SUBCUT TID 12/26/20 12/26/20 12/25/20 History Flexpen U-100 Insulin] Physical Exam Vital Signs and Narrative: Vital Signs: Last Vital Signs Temp 98.2 F 12/26/20 10:06 Pulse 56 12/26/20 10:06 Resp 15 12/26/20 10:06 BP 119/55 L 12/26/20 10:06 Pulse Ox 96 12/26/20 10:06 Body Mass Index 30.3 Results Labs CBC and Chem 7: 12/26/20 06:00 12/26/20 06:00 Labs: Laboratory Results - last 24 hr 12/26/20 12/26/20 12/26/20 05:52 06:00 06:00 WBC 27.6 H MCV 88.0 MCH 29.8 MCHC 33.8 RDW 13.5 Plt Count 241 MPV 10.6 Immature Gran % (Auto) 0.9 H Neut % (Auto) 88.0 H Lymph % (Auto) 6.3 L [place] % (Auto) 4.6 Eos % (Auto) 0.0 Baso % (Auto) 0.2 Lymph # (Auto) 1.8 [place] # (Auto) 1.3 H Eos # (Auto) 0.0 Baso # (Auto) 0.1 Abs Immat Gran (auto) 0.25 H Absolute Neuts (auto) 24.3 H Absolute Nucleated RBC 0.000 Nucleated RBC % (auto) 0.0 Smear Tech's Comments VERIFIED PT INR Anion Gap 17 Estim Creat Clear Calc 55.1 Estimated GFR > 60 POC Glucose Random Glucose 263 H D Lactic Acid Calcium 9.7 Magnesium 1.8 Total Bilirubin 0.9 AST 14 ALT < 6 Alkaline Phosphatase 93 Troponin I High Sens C-Reactive Protein 7.86 H Total Protein 7.4 Albumin 3.9 D Acetone, Qual COVID-19 ([facility]) Negative COVID-19 Clin Com See Note 12/26/20 12/26/20 12/26/20 06:00 06:00 06:00 WBC MCV MCH MCHC RDW Plt Count MPV Immature Gran % (Auto) Neut % (Auto) Lymph % (Auto) [place] % (Auto) Eos % (Auto) Baso % (Auto) Lymph # (Auto) [place] # (Auto) Eos # (Auto) Baso # (Auto) Abs Immat Gran (auto) Absolute Neuts (auto) Absolute Nucleated RBC Nucleated RBC % (auto) Smear Tech's Comments PT 11.7 D INR 1.0 Anion Gap Estim Creat Clear Calc Estimated GFR POC Glucose Random Glucose Lactic Acid 1.7 Calcium Magnesium Total Bilirubin AST ALT Alkaline Phosphatase Troponin I High Sens C-Reactive Protein Total Protein Albumin Acetone, Qual Negative COVID-19 ([facility]G) COVID-19 Clin Com 12/26/20 12/26/20 06:00 06:09 WBC MCV MCH MCHC RDW Plt Count MPV Immature Gran % (Auto) Neut % (Auto) Lymph % (Auto) [place] % (Auto) Eos % (Auto) Baso % (Auto) Lymph # (Auto) [place] # (Auto) Eos # (Auto) Baso # (Auto) Abs Immat Gran (auto) Absolute Neuts (auto) Absolute Nucleated RBC Nucleated RBC % (auto) Smear Tech's Comments PT INR Anion Gap Estim Creat Clear Calc Estimated GFR POC Glucose 235 H Random Glucose Lactic Acid Calcium Magnesium Total Bilirubin AST ALT Alkaline Phosphatase Troponin I High Sens 7.0 C-Reactive Protein Total Protein Albumin Acetone, Qual COVID-19 (SONG) COVID-19 Clin Com Imaging Radiologist's Impressions: Impressions Venous Duplex 12/26/20 03:59 IMPRESSION: No DVT demonstrated in the right lower extremity. Enlarged right inguinal lymph nodes, measuring up to 1.8 cm in short axis diameter. These lymph nodes have a normal morphology and may be reactive in nature. Foot X-Ray 12/26/20 04:00 IMPRESSION: Marked progression of the Charcot arthropathy in the left midfoot since 05/28/2020. No clear radiographic findings of osteomyelitis, though sensitivity and specificity are somewhat limited given the background of neuropathic arthropathy. Consider correlation with MRI with and without contrast if clinically warrant. Chest X-Ray 12/26/20 07:38 IMPRESSION: Expanded lungs without acute process. Assessment and Plan (1) Osteomyelitis: Qualifiers: Laterality: right Osteomyelitis location: foot Osteomyelitis type: chronic, with draining sinus Qualified Code(s): M86.471 - Chronic osteomyelitis with draining sinus, right ankle and foot Status: Acute (2) Diabetic foot infection: Status: Acute (3) Sepsis: Status: Acute (4) Sepsis: Status: Acute 60-year-old female with diabetes Charcot's foot presented pain in the foot concern cellulitis and osteomyelitis 1/osteomyelitis/cellulitis: Continue IV antibiotics with vancomycin and Zosyn. Id consult. MRI of the foot. 2/diabetes: Continue insulin diabetic diet. 3/hypertension continue lisinopril 4/hyperlipidemia continue Lipitor 5/opioid dependence: Continue methadone 6/GERD: Omeprazole 7/depression continue Bupropion 8/DVT prophylaxis: Lovenox Code: Full Quality Stroke Does the patient have a stroke diagnosis?: No VTE Prior VTE?: Yes VTE Risk Level:: Medical - moderate - high VTE Device Contraindication: N/A - Device Ordered VTE Drug Contraindication: N/A - Med Ordered
[2020-12-26] MEDS: Magnesium Sulfate/D5W 1 GM/100 ML PIGGYBACK IV (11:01)
[2020-12-26] MEDS: Gabapentin 600 MG TABLET PO ×3 (11:02→20:15)
[2020-12-26] MEDS: Furosemide 20 MG TABLET PO (11:02)
[2020-12-26] MEDS: buPROPion HCl XL 300 MG TAB.ER.24H PO (11:02)
[2020-12-26] MEDS: Cholecalciferol (Vitamin D3) 25 MCG TABLET 50 MCG PO (11:02)
[2020-12-26] MEDS: lisinopriL 10 MG TABLET PO (11:02)
[2020-12-26] MEDS: metFORMIN HCl 1,000 MG TABLET 1000 MG PO ×2 (11:03→17:46)
[2020-12-26] MEDS: Aspirin Enteric Coated 81 MG TABLET.DR PO (11:03)
[2020-12-26] MEDS: Enoxaparin Sodium 40 MG/0.4 ML SYRINGE SUBCUT (11:15)
[2020-12-26] MEDS: vancomycin HCL 750 MG in 0.9 % Sodium Chloride 250 ML 265 MG IV (12:24)
--- NOTE | 2020-12-26 16:39 | P.CNID_ITS ---
History of Present Illness Data of Consult Service Date: 12/26/20 Requesting physician: Leroy Espinoza Primary Care Provider: Ellen Cheema MD [facility] Reason for consult: right diabetic foot infection She presents with new onset right foot drainage and pain last two days and low grade fever I had seen her in July,Group B strep infection,chronic osteomyelitis She has [facility] Past Medical History Medical History Chronic prescription opiate use COPD (chronic obstructive pulmonary disease) Depression Diabetes mellitus Diabetic foot infection Dyslipidemia Glaucoma New onset of congestive heart failure Pulmonary emboli Pulmonary nodule Tobacco dependence Family History Family History Other CVA (cerebral vascular accident) Family history: reviewed and not pertinent Surgical History Surgical History Cataract extraction status, left eye Cataract extraction status, right eye Hx of cholecystectomy Social History Social History Household Members: Significant Other Housing: Other Housing Other:: hotel Do you presently have visiting nurse or other home services: Yes (nurse helps w/ foot ulcer) Alcohol intake: never Patient Tobacco Use Status: Current everyday Tobacco user Cigarette Packs Per Day: 0.3 Cigarettes Per Day: 6.0 Years Smoked: 14 years old Smoked in Last 30 Days: Yes Second Hand Smoke Exposure: Yes Use of substances other than those prescribed or required for medical reasons: No Substance Use Type: Crack/Cocaine and Heroin Advance Directives: No Advance Directives Information Provided: No Patient : No service: No (hx on methadone) Current occupational status: unemployed Meds Allergies Allergy/AdvReac Type Severity Reaction Status Date / Time No Known Allergies Allergy Verified 05/03/20 13:17 Active Medications: Current Medications Generic Name Dose Route Start Last Admin Trade Name Freq PRN Reason Stop Dose Admin Albuterol Sulfate 2 puff 12/26/20 10:16 Albuterol Sulfate 90 Mcg 8 Gm Inhaler INHALE Q4H PRN Respiratory Distress Aspirin 81 mg 12/26/20 10:30 12/26/20 11:03 Aspirin Enteric Coated 81 Mg Tablet. PO 81 mg DAILY [facility] Administration Atorvastatin Calcium 40 mg 12/26/20 21:00 Atorvastatin Calcium 40 Mg Tablet PO BEDTIME [facility] Bupropion HCl 300 mg 12/26/20 10:30 12/26/20 11:02 Bupropion Hcl Xl 300 Mg Tab.Er.24h PO 300 mg DAILY [facility] Administration Enoxaparin Sodium 40 mg 12/26/20 10:30 12/26/20 11:15 Enoxaparin Sodium 40 Mg/0.4 Ml Syringe SUBCUT 40 mg Q24H [facility] Administration Fluticasone Propionate 2 puff 12/26/20 20:00 Fluticasone Propionate 100 Mcg Blst.W.Dev INHALE RBID [facility] Furosemide 20 mg 12/26/20 10:30 12/26/20 11:02 Furosemide 20 Mg Tablet PO 20 mg DAILY [facility] Administration Protocol Gabapentin 600 mg 12/26/20 10:30 12/26/20 16:17 Gabapentin 600 Mg Tablet PO 600 mg TID [facility] Administration Vancomycin HCl 750 mg/ Sodium 265 mls @ 265 mls/hr 12/26/20 13:00 12/26/20 13:24 Chloride IV Infused Q12H [facility] Infusion Insulin Glargine 14 unit 12/26/20 21:00 Insulin Glargine,Hum.Rec.Anlog 100 Unit/Ml 10 Ml Vial SUBCUT BID [facility] Lisinopril 10 mg 12/26/20 11:00 12/26/20 11:02 Lisinopril 10 Mg Tablet PO 10 mg DAILY [facility] Administration Protocol Melatonin 3 mg 12/26/20 10:22 Melatonin 3 Mg Tablet PO BEDTIME PRN Sleep Metformin HCl 1,000 mg 12/26/20 10:30 12/26/20 11:03 Metformin Hcl 1,000 Mg Tablet PO 1,000 mg BIDWM [facility] Administration Methadone HCl 95 mg 12/27/20 09:00 Methadone Hcl 1 Mg/0.1 Ml Oral.Conc PO DAILY [facility] Omeprazole 20 mg 12/27/20 06:30 Omeprazole 20 Mg Capsule. PO DAILY@0630 [facility] Pharmacy Consult 1 each 12/26/20 07:47 Consult Rx Perform Med Rec MISCELLANE ONCE PRN Consult order Pharmacy Consult 1 each 12/26/20 11:56 Consult Rx Vancomycin Dosing MISCELLANE DAILY PRN Consult order Sodium Chloride 3 ml 12/26/20 16:00 0.9 % Sodium Chloride Flush 3 Ml Syringe IVFLUSH QSHIFT [facility] Vitamin D 50 mcg 12/26/20 10:30 12/26/20 11:02 Cholecalciferol (Vitamin D3) 25 Mcg Tablet PO 50 mcg DAILY [facility] Administration Home Medications Medication Instructions Recorded Confirmed Last Taken Type albuterol sulfate 90 mcg/actuation 2 puff PO Q4H PRN 04/24/20 12/26/20 Unknown History aerosol inhaler aspirin 81 mg tablet,delayed 81 mg PO DAILY 04/24/20 12/26/20 12/24/20 History release atorvastatin 40 mg tablet 40 mg PO BEDTIME 04/24/20 12/26/20 12/24/20 History bupropion HCl 150 mg tablet,12 hr 150 mg PO BID 04/24/20 12/26/20 12/24/20 History sustained-release cholecalciferol (vitamin D3) 50 50 mcg PO DAILY 04/24/20 12/26/20 12/24/20 History mcg (2,000 unit) tablet furosemide 20 mg tablet 20 mg PO QAM 04/24/20 12/26/20 12/24/20 History insulin degludec 100 unit/mL (3 20 unit SUBCUT BID 04/24/20 12/26/20 12/25/20 History mL) subcutaneous pen lancets 33 gauge #100 ea 04/24/20 07/13/20 Unknown History lisinopril 10 mg tablet 10 mg PO DAILY 04/24/20 12/26/20 12/24/20 History metformin 1,000 mg tablet 1,000 mg PO BIDWMEAL 04/24/20 12/26/20 12/24/20 Histo ry omeprazole 20 mg capsule,delayed 20 mg PO DAILY 04/24/20 12/26/20 12/24/20 History release gabapentin 600 mg tablet 600 mg PO TID 05/03/20 12/26/20 12/24/20 History Flovent HFA 2 puff INHALATION BID 05/28/20 12/26/20 12/24/20 History methadone [Methadone Intensol] 95 mg DAILY 05/28/20 12/26/20 12/25/20 History insulin aspart U-100 [Novolog 4 - 28 unit SUBCUT TID 12/26/20 12/26/20 12/25/20 History Flexpen U-100 Insulin] Physical Exam Vital Signs: Vital Signs: Last Vital Signs Temp 98.5 F 12/26/20 15:22 Pulse 53 12/26/20 15:22 Resp 16 12/26/20 15:22 BP 97/45 L 12/26/20 15:22 Pulse Ox 95 12/26/20 15:22 Body Mass Index 30.3 Const: General: cooperative HENMT: Head: Yes normal to inspection Resp: Effort & Inspection: normal respiratory effort Cardio: Rate: regular rate Rhythm: regular rhythm GI: Palpation (GI): Soft to palpation and nontender Extrem: Other: no purulence,no cellulitis,mild swelling right foot Results Labs CBC & Chem 7: 12/26/20 06:00 12/26/20 06:00 Labs: Short CBC 12/26/20 Range/Units 06:00 WBC 27.6 H (4.8-10.8) X10*3/uL Hgb 11.7 L (12.0-16.0) g/dl Hct 34.6 L (37-47) % Plt Count 241 (160-400) X10*3/uL BMP 12/26/20 06:00 Sodium 136 Potassium 5.1 Chloride 96 Carbon Dioxide 28 BUN 18 H Creatinine 0.91 Calcium 9.7 Liver Function 12/26/20 Range/Units 06:00 Total Bilirubin 0.9 (0.0-1.0) mg/dL AST 14 (5-31) U/L ALT < 6 (0-31) U/L Alkaline Phosphatase 93 (39-117) U/L Albumin 3.9 D (3.5-5.0) g/dL Assessment and Plan (1) Sepsis: Status: Acute (2) Osteomyelitis: Qualifiers: Laterality: right Osteomyelitis location: foot Osteomyelitis type: chronic, with draining sinus Qualified Code(s): M86.471 - Chronic osteomyelitis with draining sinus, right ankle and foot Status: Acute Recurrent right foot osteomyelitis Nonhealing She has some pain and swelling Suggest Continue Vancomycin at this time Await cultures MR Surgery evaluation
[2020-12-26 17:01] LABS: Glucose, Whole Blood 243 mg/dL (60-115)
[2020-12-26] MEDS: 0.9 % Sodium Chloride Flush 3 ML SYRINGE IVFLUSH (17:46)
[2020-12-26] MEDS: Atorvastatin Calcium 40 MG TABLET PO (20:15)
[2020-12-26 20:22] LABS: Glucose, Whole Blood 301 mg/dL (60-115)
--- NOTE | 2020-12-26 20:24 | PC.NURSE ---
patient stated she goes to methadone clinic in [address] . methadone clinic is closed at this time Methadone must be verified in am
[2020-12-26] MEDS: Insulin Glargine,Hum.rec.anlog 100 UNIT/ML 10 ML VIAL 14 UNIT SUBCUT (20:26)
[2020-12-27] MEDS: vancomycin HCL 750 MG in 0.9 % Sodium Chloride 250 ML 265 MG IV ×2 (00:13→13:44)
[2020-12-27] MEDS: 0.9 % Sodium Chloride Flush 3 ML SYRINGE IVFLUSH ×2 (00:18→07:50)
[2020-12-27 03:34] VITALS: BP 116/57; PULSE 58; RESP 18; TEMP 36.7; O2SAT 98
[2020-12-27] MEDS: Omeprazole 20 MG CAPSULE.DR PO (06:16)
[2020-12-27 07:15] LABS: Glucose, Whole Blood 316 mg/dL (60-115)
[2020-12-27 07:28] VITALS: BP 139/63; PULSE 55; RESP 18; TEMP 36.5; O2SAT 100
[2020-12-27] MEDS: metFORMIN HCl 1,000 MG TABLET 1000 MG PO (07:50)
[2020-12-27] MEDS: Insulin Glargine,Hum.rec.anlog 100 UNIT/ML 10 ML VIAL 14 UNIT SUBCUT (08:48)
[2020-12-27 08:49] VITALS: BP 139/63; PULSE 55
[2020-12-27] MEDS: buPROPion HCl XL 300 MG TAB.ER.24H PO (08:49)
[2020-12-27] MEDS: Gabapentin 600 MG TABLET PO ×2 (08:49→14:19)
[2020-12-27] MEDS: Cholecalciferol (Vitamin D3) 25 MCG TABLET 50 MCG PO (08:49)
[2020-12-27] MEDS: Furosemide 20 MG TABLET PO (08:49)
[2020-12-27] MEDS: lisinopriL 10 MG TABLET PO (08:49)
[2020-12-27] MEDS: Aspirin Enteric Coated 81 MG TABLET.DR PO (08:50)
[2020-12-27 08:54] LABS: Hematocrit 31.2 % (37-47); Mean Corpuscular HGB Conc 32.1 g/dl (31.0-35.0); Mean Corpuscular Hemoglobin 29.3 pg (27.0-33.0); Mean Corpuscular Volume 91.5 fL (80-98); Mean Platelet Volume 10.9 fL (9.4-12.3); Platelet Count 202 X10*3/uL (160-400); Red Blood Count 3.41 X10*6/uL (4.20-5.50); Red Cell Distribution Width 14.3 % (11.0-16.0); White Blood Count 9.1 X10*3/uL (4.8-10.8)
[2020-12-27 10:09] LABS: Erythrocyte Sedimentation Rate 69 MM/HR (0-20)
--- NOTE | 2020-12-27 10:16 | MHC.CM.PN ---
met with pt who reports having a [employer] ,she has had vna in the past but none at this time pt s drives her to [place] methad[facility] clinic daily dc plan is for home with resumption of [employer] services and methadone clinic ,new referral to a vna
[2020-12-27] MEDS: Enoxaparin Sodium 40 MG/0.4 ML SYRINGE SUBCUT (10:30)
[2020-12-27 11:02] LABS: Glucose, Whole Blood 300 mg/dL (60-115)
[2020-12-27 11:07] VITALS: BP 135/63; PULSE 56; RESP 18; TEMP 36.8; O2SAT 96
[2020-12-27] MEDS: Insulin Lispro 100 UNIT/ML 3 ML VIAL SUBCUT (11:47)
--- NOTE | 2020-12-27 12:33 | P.CONGS_ITS ---
History of Present Illness Consult details Consult date: 12/27/20 Reason for consult: wound care Narrative: Very pleasant 60-year-old female well known to me for Charcot foot and valgus deformity of the right foot. She had been doing well in all ulcers had healed. Most recently she was displaced from her home and developed a blister on the lateral aspect of her foot. She presented to the emergency room yesterday with some pain and discomfort. It was noted that she had a white count of 27. She was subsequently admitted and worked up. She now presents to us for vascular evaluation. Review of Systems Review of Systems: Yes all other systems are reviewed and are negative Constitutional: Constitutional: Reports no additional constitutional complaints ENT: Reports Normal hearing present Cardiovascular: Cardiovascular: Denies chest pain, Denies chest pain at rest, Denies chest pain with activity and Denies pedal edema Respiratory: Respiratory: Denies cough Gastrointestinal: Gastrointestinal: Denies abdominal pain Musculoskeletal: Musculoskeletal: Denies abnormal gait, Denies muscle cramps and Denies radiating pain into limb Integumentary/Breasts: Skin/Breast: Denies skin ulcer and Denies wounds Neurologic: Reports Normal hearing present and Denies abnormal gait Psychiatric: Psychiatric: Reports no additional psychiatric complaints PMFSH Past Medical History Medical History Chronic prescription opiate use COPD (chronic obstructive pulmonary disease) Depression Diabetes mellitus Diabetic foot infection Dyslipidemia Glaucoma New onset of congestive heart failure Pulmonary emboli Pulmonary nodule Tobacco dependence Family History Family History Other CVA (cerebral vascular accident) Family history: reviewed and not pertinent Surgical History Surgical History Cataract extraction status, left eye Cataract extraction status, right eye Hx of cholecystectomy Social History Social History Household Members: Spouse Housing: House Housing Other:: hotel Do you presently have visiting nurse or other home services: No Alcohol intake: never Patient Tobacco Use Status: Current everyday Tobacco user Tobacco use type: Cigarette Cigarette Packs Per Day: 0.3 Cigarettes Per Day: 6 Years Smoked: 14 years old Smoked in Last 30 Days: Yes e-Cigarette/Vaping Use: Currently Using Patient Interested in Nicotine Replacement: Yes (would like patch) Patient Given Instructions on How to Stop Smoking: Yes (would like to quit) Date Education Initiated: 12/26/20 Second Hand Smoke Exposure: No Use of substances other than those prescribed or required for medical reasons: Yes Substance Use Type: Heroin Substance Use Frequency: Daily Last Used Substance: Weeks (ago) Last Used Substance Other:: 2 months Currently Displaying Signs/Symptoms of Drug Intoxication Withdrawal: No Any prior treatment program specific to substance use: Yes ([facility]) Have you been hit, kicked, punched, or otherwise hurt by someone within the past year? If so, by whom?: No Do you feel safe in your current relationship?: Yes Is there a partner from a previous relationship who is making you feel unsafe now?: No Are you made to feel afraid or neglected: No Advance Directives: No Advance Directives Information Provided: No Do you have thoughts of harming others: None Do you have a plan to hurt others: No Plan Recently lost weight without trying: No Nutrition Risks: No Nutritional Risk Patient : No : No Poor oral hygiene: No service: No (hx on methadone) Current occupational status: unemployed Meds Allergies Allergy/AdvReac Type Severity Reaction Status Date / Time No Known Allergies Allergy Verified 05/03/20 13:17 Active Medications: Current Medications Generic Name Dose Route Start Last Admin Trade Name Freq PRN Reason Stop Dose Admin Albuterol Sulfate 2 puff 12/26/20 10:16 Albuterol Sulfate 90 Mcg 8 Gm Inhaler INHALE Q4H PRN Respiratory Distress Aspirin 81 mg 12/26/20 10:30 12/27/20 08:50 Aspirin Enteric Coated 81 Mg Tablet.Dr PO 81 mg DAILY [facility] Administration Atorvastatin Calcium 40 mg 12/26/20 21:00 12/26/20 20:15 Atorvastatin Calcium 40 Mg Tablet PO 40 mg BEDTIME [facility] Administration Bupropion HCl 300 mg 12/26/20 10:30 12/27/20 08:49 Bupropion Hcl Xl 300 Mg Tab.Er.24h PO 300 mg DAILY [facility] Administration Enoxaparin Sodium 40 mg 12/26/20 10:30 12/27/20 10:30 Enoxaparin Sodium 40 Mg/0.4 Ml Syringe SUBCUT 40 mg Q24H [facility] Administration Fluticasone Propionate 2 puff 12/26/20 20:00 12/27/20 07:22 Fluticasone Propionate 100 Mcg Blst.W.Dev INHALE Not Given RBID [facility] Furosemide 20 mg 12/26/20 10:30 12/27/20 08:49 Furosemide 20 Mg Tablet PO 20 mg DAILY [facility] Administration Protocol Gabapentin 600 mg 12/26/20 10:30 12/27/20 08:49 Gabapentin 600 Mg Tablet PO 600 mg TID [facility] Administration Vancomycin HCl 750 mg/ Sodium 265 mls @ 265 mls/hr 12/26/20 13:00 12/27/20 01:18 Chloride IV Infused Q12H [facility] Infusion Insulin Glargine 14 unit 12/26/20 21:00 12/27/20 08:48 Insulin Glargine,Hum.Rec.Anlog 100 Unit/Ml 10 Ml Vial SUBCUT 14 unit BID [facility] Administration Insulin Human Lispro 0 unit 12/27/20 11:30 12/27/20 11:47 Insulin Lispro 100 Unit/Ml 3 Ml Vial SUBCUT 6 unit QIDACHS [facility] Administration Protocol Lisinopril 10 mg 12/26/20 11:00 12/27/20 08:49 Lisinopril 10 Mg Tablet PO 10 mg DAILY [facility] Administration Protocol Melatonin 3 mg 12/26/20 10:22 Melatonin 3 Mg Tablet PO BEDTIME PRN Sleep Metformin HCl 1,000 mg 12/26/20 10:30 12/27/20 07:50 Metformin Hcl 1,000 Mg Tablet PO 1,000 mg BIDWM [facility] Administration Methadone HCl 90 mg 12/27/20 09:00 12/27/20 08:49 Methadone Hcl 1 Mg/0.1 Ml Oral.Conc PO 90 mg DAILY [facility] Administration Omeprazole 20 mg 12/27/20 06:30 12/27/20 06:16 Omeprazole 20 Mg Capsule.Dr PO 20 mg DAILY@0630 [facility] Administration Pharmacy Consult 1 each 12/26/20 07:47 Consult Rx Perform Med Rec MISCELLANE ONCE PRN Consult order Pharmacy Consult 1 each 12/26/20 11:56 Consult Rx Vancomycin Dosing MISCELLANE DAILY PRN Consult order Sodium Chloride 3 ml 12/26/20 16:00 12/27/20 07:50 0.9 % Sodium Chloride Flush 3 Ml Syringe IVFLUSH 3 ml QSHIFT [facility] Administration Vitamin D 50 mcg 12/26/20 10:30 12/27/20 08:49 Cholecalciferol (Vitamin D3) 25 Mcg Tablet PO 50 mcg DAILY [facility] Administration Home Medications Medication Instructions Recorded Confirmed Last Taken Type albuterol sulfate 90 mcg/actuation 2 puff PO Q4H PRN 04/24/20 12/26/20 Unknown History aerosol inhaler aspirin 81 mg tablet,delayed 81 mg PO DAILY 04/24/20 12/26/20 12/24/20 History release atorvastatin 40 mg tablet 40 mg PO BEDTIME 04/24/20 12/26/20 12/24/20 History bupropion HCl 150 mg tablet,12 hr 150 mg PO BID 04/24/20 12/26/20 12/24/20 History sustained-release cholecalciferol (vitamin D3) 50 50 mcg PO DAILY 04/24/20 12/26/20 12/24/20 History mcg (2,000 unit) tablet furosemide 20 mg tablet 20 mg PO QAM 04/24/20 12/26/20 12/24/20 History insulin degludec 100 unit/mL (3 20 unit SUBCUT BID 04/24/20 12/26/20 12/25/20 History mL) subcutaneous pen lancets 33 gauge #100 ea 04/24/20 07/13/20 Unknown History lisinopril 10 mg tablet 10 mg PO DAILY 04/24/20 12/26/20 12/24/20 History metformin 1,000 mg tablet 1,000 mg PO BIDWMEAL 04/24/20 12/26/20 12/24/20 History omeprazole 20 mg capsule,delayed 20 mg PO DAILY 04/24/20 12/26/20 12/24/20 History release gabapentin 600 mg tablet 600 mg PO TID 05/03/20 12/26/20 12/24/20 History Flovent HFA 2 puff INHALATION BID 05/28/20 12/26/20 12/24/20 History methadone [Methadone Intensol] 95 mg DAILY 05/28/20 12/26/20 12/25/20 History insulin aspart U-100 [Novolog 4 - 28 unit SUBCUT TID 12/26/20 12/26/20 12/25/20 History Flexpen U-100 Insulin] Physical Exam Vital Signs: Vital Signs: Last Vital Signs Temp 98.3 F 12/27/20 11:07 Pulse 56 12/27/20 11:07 Resp 18 12/27/20 11:07 BP 135/63 12/27/20 11:07 Pulse Ox 96 12/27/20 11:07 Body Mass Index 30.3 Const: General: cooperative, healthy appearing and comfortable Orientation/consciousness: oriented to person, oriented to place and oriented to time HENMT: Head: Yes normal to inspection Neck: Neck: Yes normal visual inspection Carotids: no bruits Chest: Chest palpation & inspection: normal inspection of the chest Resp: Effort & Inspection: normal respiratory effort and able to speak in complete sentences Auscultation: clear to auscultation bilaterally, no crackles, no rales, no rhonchi and no wheezes Cardio: Rate: regular rate Rhythm: regular rhythm Heart sounds: S1 normal heart sound present and S2 normal heart sound present Bruits: no carotid bruits Peripheral pulses: Peripheral pulses 2+ throughout GI: Inspection: Yes normal to inspection Skin: Wounds: wounds noted (Right lateral foot with overlying callus, clean no collection) Hair: normal Neuro: General: oriented to person, oriented to place and oriented to time Cranial nerves: Yes CN's II-XII intact bilaterally and Yes Normal hearing present Cognition (Neuro): normal cognition Motor exam (neuro): 5/5 motor strength present throughout Extrem: Other: venous exam: No significant superficial varicosities or spider telangiectasias, minimal edema General: No clubbing, No cyanosis and No edema Psych: Appearance: grossly normal Mental Status: mental status grossly normal Speech and movement: Normal speech and movement present Results Labs Result diagrams: 12/27/20 08:32 12/26/20 06:00 Labs: Abnormal lab results 12/26/20 12/26/20 12/27/20 Range/Units 16:58 20:17 07:06 RBC (4.20-5.50) X10*6/uL Hgb (12.0-16.0) g/dl Hct (37-47) % ESR (0-20) MM/HR POC Glucose 243 H 301 H 316 H (60-115) mg/dL 12/27/20 12/27/20 12/27/20 Range/Units 08:32 08:32 10:59 RBC 3.41 L (4.20-5.50) X10*6/uL Hgb 10.0 L (12.0-16.0) g/dl Hct 31.2 L (37-47) % ESR 69 H (0-20) MM/HR POC Glucose 300 H (60-115) mg/dL Short CBC 12/27/20 Range/Units 08:32 WBC 9.1 (4.8-10.8) X10*3/uL Hgb 10.0 L (12.0-16.0) g/dl Hct 31.2 L (37-47) % Plt Count 202 (160-400) X10*3/uL All other labs normal. Assessment and Plan (1) Diabetic foot ulcer: Status: Acute In short patient has diabetic foot ulcer. It appears to be clean. In addition she has palpable pulses. Her white count today is 10 and I believe the 1 yesterday was artifactually elevated. Would continue local wound care. MRI reviewed and does not appear to have osteomyelitis. Would recommend follow-up as an outpatient with me for her peripheral vascular disease and also will follow [facility] with [facility]. Stable from my perspective for discharge. Thank you for allowing us to assist in her care. Procedures Date of Service Date of Service: 12/27/20
--- NOTE | 2020-12-27 14:48 | P.DS_ITS ---
DS: Providers Provider Date of Service: 12/27/20 Date of admission: 12/26/20 10:22 Primary care physician: Ellen Cheema MD Consults: 12/26/20 11:02 Consult to Infectious Diseases Routine Consulting Provider: Josefina Caro Reason for consultation: osteomylitis Has provider been notified: No 12/27/20 08:16 Consult to Vascular Surgery Routine Consulting Provider: Hunter Lemus Reason for consultation: ? osteo ? surgery required Has provider been notified: No DS: Diagnosis Discharge Diagnosis (1) Diabetic foot ulcer: Status: Acute DS: Medications Discharge Medications Home Medications: Home Medications Medication Instructions Recorded Confirmed albuterol sulfate 90 mcg/actuation 2 puff PO Q4H PRN 04/24/20 12/26/20 aerosol inhaler aspirin 81 mg tablet,delayed 81 mg PO DAILY 04/24/20 12/26/20 release atorvastatin 40 mg tablet 40 mg PO BEDTIME 04/24/20 12/26/20 bupropion HCl 150 mg tablet,12 hr 150 mg PO BID 04/24/20 12/26/20 sustained-release cholecalciferol (vitamin D3) 50 50 mcg PO DAILY 04/24/20 12/26/20 mcg (2,000 unit) tablet furosemide 20 mg tablet 20 mg PO QAM 04/24/20 12/26/20 insulin degludec 100 unit/mL (3 20 unit SUBCUT BID 04/24/20 12/26/20 mL) subcutaneous pen lancets 33 gauge #100 ea 04/24/20 07/13/20 lisinopril 10 mg tablet 10 mg PO DAILY 04/24/20 12/26/20 metformin 1,000 mg tablet 1,000 mg PO BIDWMEAL 04/24/20 12/26/20 omeprazole 20 mg capsule,delayed 20 mg PO DAILY 04/24/20 12/26/20 release gabapentin 600 mg tablet 600 mg PO TID 05/03/20 12/26/20 Flovent HFA 2 puff INHALATION BID 05/28/20 12/26/20 methadone [Methadone Intensol] 95 mg DAILY 05/28/20 12/26/20 insulin aspart U-100 [Novolog 4 - 28 unit SUBCUT TID 12/26/20 12/26/20 Flexpen U-100 Insulin] Previous Rx's Medication Instructions Recorded walker #1 ea 04/08/21 DS: Summary Hospital Course Hospital Course: From H&P on day of admission 60-year-old female with diabetes, hypertension right Charcot foot/joint who presented with apin in the right foot/ankle area. There is an open wound in the area with scant drainage. She has significant pain with ambulation, and la lately she has been experiencing fever. Workup in the emergency room revealed WBC 27K, xrau of foot showed no evidence of osteomyelitis, however an MRI and recommended. CRP is elevated 7. She has received Zosyn in the emergency room and is being admitted for further workup. Patient was admitted due to concern for right foot osteomyelitis. Initial white count was 27, repeat today leukocytosis has resolved. Seems like initial WBC may have been lab error. X-ray of the foot showed chronic changes with no obvious osteomyelitis. She was seen in consultation by Infectious Disease who recommended MRI. MRI was done an again showed chronic changes with superimposed active osteomyelitis being less likely. He was seen in consultation by Dr. Lemus vascular surgery who did not feel like she needed any surgical intervention. Blood cultures have remained negative times 24 hours. ID has recommended to discharge the patient with 7 days of doxycycline. She should call to schedule follow-up appointment with Dr. Lemus as well as the wound clinic. Time Spent with Patient Time attestation: Total time spent providing and/or coordinating discharge services: Discharge coordination time: Greater than 30 minutes Quality: Stroke Does the patient have a stroke diagnosis?: No Physical Exam Vital Signs: Vital Signs: Last Vital Signs Temp 98.3 F 12/27/20 11:07 Pulse 56 12/27/20 11:07 Resp 18 12/27/20 11:07 BP 135/63 12/27/20 11:07 Pulse Ox 96 12/27/20 11:07 Body Mass Index 30.3 Const: Nutritional Appearance: well nourished Orientation/consciousness: patient oriented x3 HENMT: Head: Yes normocephalic and Yes atraumatic Eyes: Sclerae: sclerae normal Resp: Effort & Inspection: normal respiratory effort and no respiratory distress Cardio: Rate: regular rate Rhythm: regular rhythm GI: Palpation (GI): Soft to palpation and nontender Skin: Other: dry foot ulcer plantar aspect right foot. no drainage, no erythema Neuro: General: patient oriented x3 Cranial nerves: Yes CN's II-XII intact bilaterally and Yes Bilaterally intact EOM present DS: Data Data Completed and Pending Completed studies during hospitalization [Text1]: Procedures Compression of Right Foot using Pressure Dressing (05/28/20) Labs on day of discharge: Laboratory Results - last 24 hr 12/26/20 12/26/20 12/27/20 16:58 20:17 07:06 WBC RBC Hgb Hct MCV MCH MCHC RDW Plt Count MPV Absolute Nucleated RBC Nucleated RBC % (auto) ESR POC Glucose 243 H 301 H 316 H 12/27/20 12/27/20 12/27/20 08:32 08:32 10:59 WBC 9.1 RBC 3.41 L Hgb 10.0 L Hct 31.2 L MCV 91.5 MCH 29.3 MCHC 32.1 RDW 14.3 Plt Count 202 MPV 10.9 Absolute Nucleated RBC 0.000 Nucleated RBC % (auto) 0.0 ESR 69 H POC Glucose 300 H Preliminary micro results at discharge 12/26/20 06:00 Blood Culture - Preliminary Blood - Venous No growth after 24 hours. 12/26/20 06:00 Blood Culture - Preliminary Blood - Venous No growth after 24 hours. Discharge Plan Discharge Patient Disposition: Home, Self-Care Discharge Diagnosis: Chronic foot wound Referrals: Laura Chance PA [Physician Marketing Coordinator] - 1 Week Ellen Cheema MD [Primary Care Provider] - 1 Week Discharge Medications: New doxycycline hyclate 100 mg capsule 100 mg PO BID 7 Days Qty: 14 RF: 0 Continued Flovent HFA 110 mcg/actuation Hfa Aerosol Inhaler 2 puff INHALATION BID RF: 0 methadone [Methadone Intensol] 10 mg/mL Concentrate 95 mg DAILY RF: 0 insulin aspart U-100 [Novolog Flexpen U-100 Insulin] 100 unit/mL (3 mL) insulin pen 4 - 28 unit subcut TID RF: 0 gabapentin 600 mg tablet 600 mg PO TID RF: 0 insulin degludec 100 unit/mL (3 mL) insulin pen 20 unit subcut BID RF: 0 cholecalciferol (vitamin D3) 50 mcg (2,000 unit) tablet 50 mcg PO DAILY RF: 0 albuterol sulfate 90 mcg/actuation HFA aerosol inhaler 2 puff PO Q4H PRN (Reason: Respiratory Distress) RF: 0 furosemide 20 mg tablet 20 mg PO QAM RF: 0 lisinopril 10 mg tablet 10 mg PO DAILY RF: 0 omeprazole 20 mg capsule,delayed release(DR/EC) 20 mg PO DAILY RF: 0 metformin 1,000 mg tablet 1,000 mg PO BIDWMEAL RF: 0 aspirin 81 mg tablet,delayed release (DR/EC) 81 mg PO DAILY RF: 0 bupropion HCl 150 mg tablet sustained-release 12 hr 150 mg PO BID RF: 0 atorvastatin 40 mg tablet 40 mg PO BEDTIME RF: 0 No Action (DME) walker Misc See Rx Instructions .ROUTE .MEDSUPPLY Qty: 1 RF: 0 (DME) lancets 33 gauge misc See Rx Instructions ea Not Applicable TID Qty: 100 RF: 0 Discharge Orders: Discharge Order (Routine); Ordered 12/27/20 Ordered By: Rox Byers Activity on Discharge: As tolerated Stand Alone Forms: Patient Portal Discharge page Care Plan Goals: See below Health Concerns: Chronic foot wound Plan of Treatment: Call to schedule follow-up appointment with Dr. Lemus Call to schedule follow-up appointment with wound care center Take antibiotics untll completion Assessment: See discharge summary
[2020-12-27 15:05] VITALS: BP 124/58; PULSE 62; RESP 18; TEMP 36.7; O2SAT 97
--- NOTE | 2020-12-27 15:08 | MHC.CM.PN ---
Patient has been medically cleared for dc to home today, no services. IMM addressed this morning.
== END 2020-12-27 15:47 | disposition home or self-care (01) | DRG 638 ==
LOC: HO.ED 12-26 07:48 → HO.EDOVER 12-26 10:31 → HO.IMC 12-26 15:48
PROVIDERS: Physician Assistant Medical; Admitting Provider Internal Medicine; Emergency Provider Student in an Organized Health Care Education/Training Program; PCP Family Medicine; Visit Provider Family Medicine
DX: E11.621 Type 2 diabetes mellitus with foot ulcer (principal); M86.471 Chronic osteomyelitis with draining sinus, right ankle and foot; F11.20 Opioid dependence, uncomplicated; E11.69 Type 2 diabetes mellitus with other specified complication; K21.9 Gastro-esophageal reflux disease without esophagitis; E11.610 Type 2 diabetes mellitus with diabetic neuropathic arthropathy; E78.5 Hyperlipidemia, unspecified; I10 Essential (primary) hypertension; F17.210 Nicotine dependence, cigarettes, uncomplicated; L97.519 Non-pressure chronic ulcer of other part of right foot with unspecified severity; Z71.6 Tobacco abuse counseling; Z20.822 Contact with and (suspected) exposure to COVID-19; Z79.4 Long term (current) use of insulin; Z79.82 Long term (current) use of aspirin; Z79.899 Other long term (current) drug therapy
CPT/HCPCS: 36415; 71045; 73630; 73720; 80053; 82009; 82947; 83605; 83735; 84484; 85025; 85027; 85610; 85652; 86140; 87040; 87635; 93005; 93971; 99285; A9585; J1650; J2543; J3370; J3475

== ENCOUNTER 2021-01-03 12:46 | Outpatient (RCR) | payer MEDICARE, MEDICAID, SELFPAY ==
--- NOTE | ~2021-01-03 | XR_ITS ---
EXAMINATION: XR FOOT, RIGHT CLINICAL INFORMATION: Non-healing foot wound. COMPARISON: Previous x-rays, most recent 12/26/2020. TECHNIQUE: AP, lateral, and oblique views of the right foot. FINDINGS: There are severe Charcot changes of the foot involving the talus, talocalcaneal joint and talonavicular, naviculocuneiform and metatarsocuneiform joints with fracture or dislocation. There is marked bone loss and fragmentation of the anterior talus, navicular bone, cuneiform bones, cuboid bone and base of the 3rd through 5th metatarsal bones. This does not appear appreciably changed from recent exam. There is a visible defect in the lateral soft tissues adjacent to the 5th metatarsal bone and cuboid bone and plantar soft tissues over the midfoot. This is unchanged. No x-ray evidence of osteomyelitis is seen. There is diffuse soft tissue swelling of the foot. There are calcaneal spurs. There is soft tissue arterial calcification. XR/XR foot RT min 3V IMPRESSION: Advanced Charcot changes of the foot, unchanged from recent exam 12/26/2020.
== END 2021-05-03 12:29 | disposition home or self-care (01) ==
LOC: HO.WCC 12:46
PROVIDERS: PCP Family Medicine; Visit Provider Surgery
DX: E11.621 Type 2 diabetes mellitus with foot ulcer (principal); L97.512 Non-pressure chronic ulcer of other part of right foot with fat layer exposed; E11.610 Type 2 diabetes mellitus with diabetic neuropathic arthropathy; R60.0 Localized edema; E11.40 Type 2 diabetes mellitus with diabetic neuropathy, unspecified; I10 Essential (primary) hypertension; Z79.4 Long term (current) use of insulin; Z79.899 Other long term (current) drug therapy; F17.210 Nicotine dependence, cigarettes, uncomplicated; Z86.718 Personal history of other venous thrombosis and embolism
CPT/HCPCS: 11042; 11043; 73630; 99212

== ENCOUNTER 2021-01-12 10:57 | Observation (INO) | payer MEDICARE, MEDICAID, SELFPAY ==
[2021-01-12] VITALS (8 sets, daily range): BP systolic 132–232; BP diastolic 57–95; PULSE 61–91; RESP 13–20; TEMP 36.8–37.2; O2SAT 95–100; BMI 29.2
--- NOTE | ~2021-01-12 | CT_ITS ---
EXAMINATION: CT ABDOMEN AND PELVIS WITHOUT CONTRAST CLINICAL INFORMATION: 61-year-old female patient with vomiting. Consider small bowel obstruction. COMPARISON: Last CT of the abdomen and pelvis on 07/04/2020. (Mild constipation). Total of seven prior [address] exams of the abdomen spanning from July 2010 through February 2020. TECHNIQUE: Multidetector volumetric imaging was performed from the superior aspect of the liver through the pubic symphysis. Sagittal and coronal reformatted images were obtained on the technologist's workstation. This CT examination was performed using dose optimization techniques as appropriate, variously including the following: *Automated exposure control *Adjustment of mA and/or kV according to patient size (this includes techniques or standardized protocols for targeted exams where dose is matched to indication/reason for exam; i.e. extremities or head) *Use of iterative reconstruction technique DLP: 461 mGy-cm FINDINGS: [employer]: Clips in the right upper quadrant are secondary to previous cholecystectomy. There is no evidence of intestinal obstruction. A significant burden of formed stool is seen throughout the mildly dilated colon from cecum to sigmoid. LUNG BASES: The visualized lung bases are unremarkable except for mild subsegmental atelectasis in the left lower lobe. Focal calcification is seen in the region of the mitral valve. There is a probable small hiatal hernia. LIVER, GALLBLADDER, AND BILIARY TREE: The noncontrast enhanced liver is normal in size, shape, and attenuation. No focal hepatic lesion or biliary ductal dilatation is present. The gallbladder has been surgically removed. PANCREAS: Mild atrophy. No peripancreatic effusions. SPLEEN: Unremarkable. ADRENAL GLANDS: Unremarkable. KIDNEYS AND URETERS: The kidneys are normal in size, shape, and attenuation. No hydronephrosis, or hydroureter. A minute punctate calculus is present in the lower pole the right kidney. As mentioned previously, there is dense calcification within the peripheral portion of the right renal artery. No perinephric stranding. BLADDER: Distended showing no wall thickening or intraluminal stone formation. GASTROINTESTINAL TRACT: There is a moderately large td-Vaterian duodenal diverticulum. The small bowel and stomach are not dilated. As mentioned, there is a significant burden of formed stool in the colon from cecum to descending colon. No sign of pericolonic inflammatory reaction. The appendix is normal. ABDOMINAL WALL: No significant hernia is appreciated. LYMPH NODES: Normal. VASCULAR: Aorta is normal in caliber. Numerous arterial vascular calcifications are present throughout the aorta and branch vessels. This includes the uterine arteries. PELVIC VISCERA: Uterus is multiparous in size considering this postmenopausal patient. No abnormal pelvic masses are seen. OSSEOUS STRUCTURES: There is mild anterolisthesis of L4 and L5 due to significant erosive facet arthropathy at L4-L5 as well as L5-S1. CT/CT abdomen pelvis wo con IMPRESSION: 1. No evidence of small bowel obstruction. 2. Chronic findings as enumerated above. 3. Significant burden of formed stool in the colon.
--- NOTE | 2021-01-12 11:12 | ECG_ITS ---
Test Reason : VOMITING Blood Pressure : / mmHG Vent. Rate : 070 BPM Atrial Rate : 070 BPM P-R Int : 138 ms QRS Dur : 088 ms QT Int : 430 ms P-R-T Axes : 066 027 093 degrees QTc Int : 464 ms Normal sinus rhythm Left ventricular hypertrophy with repolarization abnormality Abnormal ECG When compared with ECG of 26-DEC-2020 06:34, T wave inversion now evident in Lateral leads QT has shortened Referred By: Soha Smith Electronically Signed By:CATRACHITO NUNEZ
[2021-01-12 11:14] LABS: Glucose, Whole Blood 368 mg/dL (60-115)
--- NOTE | 2021-01-12 11:17 | ED.NAVMDI ---
HPI - Nausea/Vomiting/Diarrhea General Chief complaint: Nausea/Vomiting/Diarrhea Stated complaint: vomiting Time Seen by Provider: 01/12/21 11:05 Source: patient and old records reviewed Mode of arrival: ambulatory Limitations: no limitations History of Present Illness HPI Narrative: 61 yo female with PAD, DM - R foot charcot just had wound completed doxy, COPD, s/p cholecystectomy comes in with c/o vomiting and nausea although able to keep her meds down x 4 days after eating a sandwhich, no diarrhea, some epigastric pain, + flatus MD elicited complaint: nausea, vomiting and abdominal pain Onset (ago): day(s) (4) Description of vomiting: food contents Associated nausea: Yes Associated abdominal pain: Yes Location of pain: epigastric Pain consistency: intermittent Severity: mild Quality: aching Exacerbating factors: eating Relieving factors: none Context: possible food poisoning Associated symptoms: loss of appetite and nausea/vomiting Related Data Home Medications Medication Instructions Recorded Confirmed albuterol sulfate 90 mcg/actuation 2 puff PO Q4H PRN 04/24/20 01/12/21 aerosol inhaler aspirin 81 mg tablet,delayed 81 mg PO DAILY 04/24/20 01/12/21 release atorvastatin 40 mg tablet 40 mg PO BEDTIME 04/24/20 01/12/21 bupropion HCl 150 mg tablet,12 hr 150 mg PO BID 04/24/20 01/12/21 sustained-release cholecalciferol (vitamin D3) 50 50 mcg PO DAILY 04/24/20 01/12/21 mcg (2,000 unit) tablet furosemide 20 mg tablet 20 mg PO QAM 04/24/20 01/12/21 lancets 33 gauge #100 ea 04/24/20 07/13/20 lisinopril 10 mg tablet 10 mg PO DAILY 04/24/20 01/12/21 metformin 1,000 mg tablet 1,000 mg PO BIDWMEAL 04/24/20 01/12/21 omeprazole 20 mg capsule,delayed 20 mg PO DAILY 04/24/20 01/12/21 release gabapentin 600 mg tablet 600 mg PO TID 05/03/20 01/12/21 Flovent HFA 2 puff INHALATION BID 05/28/20 01/12/21 methadone [Methadone Intensol] 95 mg DAILY 05/28/20 01/12/21 insulin aspart U-100 [Novolog 4 - 28 unit SUBCUT TID 12/26/20 01/12/21 Flexpen U-100 Insulin] insulin degludec [Tresiba 20 unit SUBCUT BID 01/12/21 01/12/21 FlexTouch U-100] Previous Rx's Medication Instructions Recorded walker #1 ea 10/11/20 Allergies Allergy/AdvReac Type Severity Reaction Status Date / Time No Known Allergies Allergy Verified 05/03/20 13:17 Review of Systems Review of Systems: Constitutional : No Weight loss, No Fever, No Chills ENT/Mouth : No sore throat, No Rhinorrhea Eyes: No Swelling, No Redness Cardiovascular : No Chest Pain, No SOB, NoEdema Respiratory : No Cough, No Sputum, No Wheezing Gastrointestinal : Positive Nausea, Positive Vomiting, no Diarrhea, positive abdominal Pain, No Hematochezia, No Melena Genitourinary : No Dysuria, No Urinary Frequency, No Hematuria, No Urgency Musculoskeletal : No joint pain, No Myalgias, No Joint Swelling Skin : No Skin Lesions, No rash Neuro : No Weakness, No Numbness, No Dizziness, No Headache Psych : No Anxiety/Panic, No Depression Heme/Lymph: No Bruising, No Lymphadenopathy Endocrine : No Polyuria, No Polydipsia All other systems reviewed and are negative. Gastrointestinal: Gastrointestinal: Reports nausea PMFSH Past Medical History Attestation statement: The following information was validated with the patient. Medical History Chronic prescription opiate use COPD (chronic obstructive pulmonary disease) Depression Diabetes mellitus Dyslipidemia Glaucoma New onset of congestive heart failure Pulmonary emboli Pulmonary nodule Tobacco dependence Surgical History Cataract extraction status, left eye Cataract extraction status, right eye Hx of cholecystectomy Family History Family History Other CVA (cerebral vascular accident) Social History Social History Household Members: Spouse Housing: House Housing Other:: hotel Do you presently have visiting nurse or other home services: No Alcohol intake: never Patient Tobacco Use Status: Current everyday Tobacco user Tobacco use type: Cigarette Cigarette Packs Per Day: 0.3 Cigarettes Per Day: 6 Years Smoked: 14 years old e-Cigarette/Vaping Use: Currently Using Second Hand Smoke Exposure: No Substance Use Type: Heroin Advance Directives: Yes Advance Directives on File: Yes Advance Directives Date on File: 12/26/20 Patient : No service: No (hx on methadone) Current occupational status: unemployed Physical Exam Vital Signs: Vital Signs: Last Vital Signs Temp 98.9 F 01/12/21 14:46 Pulse 67 01/12/21 15:33 Resp 16 01/12/21 15:33 BP 164/57 H 01/12/21 15:33 Pulse Ox 95 01/12/21 14:46 Body Mass Index 29.2 Appearance: Alert. Oriented X3. No acute distress. Eyes: Pupils equal, round and reactive to light. ENT: Pharynx normal. Neck: Normal inspection. Neck supple. CVS: Normal heart rate and rhythm. Pulses normal. Respiratory: No respiratory distress. Breath sounds normal. Abdomen: Soft and mild epigastric ttp no rebound or guarding Skin: Skin warm and dry. Normal skin color. Normal skin turgor. Extremities: No lower extremity edema. No calf ttp R foot well healed no signs of infection at this time Neuro: Oriented X 3. No motor deficit. No sensory deficit. Course Course Course Narrative: no response to IV hydralazine will order IV labetalol good response to labetalol, still nauseated will obtain CT scan to r/o obstruction will need admisson for intractable n/v MDM - Nausea/Vomiting/Diarrhea MDM Narrative Medical decision making narrative: 61 yo female with PAD, DM - R foot charcot just had wound completed doxy, COPD, s/p cholecystectomy comes in with c/o vomiting and nausea although able to keep her meds down x 4 days after eating a sandwhich, no diarrhea, some epigastric pain, + flatus at this time overall abdomen is benign will hydrate treat with anti emetics and pepcid, dispo per results and improvement, no lower abdominal pain + flatus seems atypical for obstruction Lab Data Result diagrams: 01/12/21 11:22 01/12/21 16:17 Labs: Lab Results 01/12/21 01/12/21 01/12/21 Range/Units 11:11 11:22 11:22 WBC 8.8 (4.8-10.8) X10*3/uL RBC 4.84 D (4.20-5.50) X10*6/uL Hgb 14.3 D (12.0-16.0) g/dl Hct 40.9 D (37-47) % MCV 84.5 (80-98) fL MCH 29.5 (27.0-33.0) pg MCHC 35.0 (31.0-35.0) g/dl RDW 12.2 (11.0-16.0) % Plt Count 291 D (160-400) X10*3/uL MPV 11.3 (9.4-12.3) fL Immature Gran % (Auto) 0.2 (0.0-0.4) % Neut % (Auto) 71.8 (45-73) % Lymph % (Auto) 18.8 L (20-40) % [place] % (Auto) 8.4 (2-11) % Eos % (Auto) 0.2 (0-4) % Baso % (Auto) 0.6 (0-2) % Lymph # (Auto) 1.7 (1.2-4.9) X10*3/uL [place] # (Auto) 0.7 (0.1-1.2) X10*3/uL Eos # (Auto) 0.0 (0.0-0.4) X10*3/uL Baso # (Auto) 0.1 (0.0-0.2) X10*3/uL Abs Immat Gran (auto) 0.02 (0.00-0.03) X10*3/uL Absolute Neuts (auto) 6.4 (2.0-8.3) X10*3/uL Absolute Nucleated RBC 0.000 (0.0-0.012) X10*3/uL Nucleated RBC % (auto) 0.0 (0.0-0.2) /100WBC VBG pH (7.32-7.43) VBG pCO2 mmHg VBG pO2 mmHg VBG HCO3 (22-26) mmol/L VBG O2 Saturation % VBG Base Excess mmol/L Sodium 131 L (135-145) mmol/L Potassium 3.8 D (3.3-5.1) mmol/L Chloride 90 L (96-108) mmol/L Carbon Dioxide 27 (22-29) mmol/L Anion Gap 18 (12-20) BUN 41 H D (9-16) mg/dL Creatinine 1.58 H (0.5-1.4) mg/dL Estim Creat Clear Calc 30.8 Estimated GFR 33 POC Glucose 368 H* (60-115) mg/dL Random Glucose 424 H* (60-115) mg/dL Calcium 10.4 H D (8.4-10.2) mg/dL Magnesium 2.2 (1.6-2.6) mg/dL Total Bilirubin 1.4 H (0.0-1.0) mg/dL Direct Bilirubin 0.4 (0.0-0.5) mg/dL AST 9 (5-31) U/L ALT < 6 (0-31) U/L Alkaline Phosphatase 112 D (39-117) U/L Troponin I High Sens (<3.5-17.0) ng/L Total Protein 8.1 H (6.5-8.0) g/dL Albumin 4.3 (3.5-5.0) g/dL Lipase 15 (8-78) U/L Urine Color Urine Appearance Urine pH (5.0-8.0) Ur Specific [place] (1.005-1.025) Urine Protein (NEG-TRACE) MG/DL Urine Glucose (UA) (NEG) MG/DL Urine Ketones (NEG) MG/DL Urine Blood (NEG) Urine Nitrite (NEG) Ur Leukocyte Esterase (NEG) Urine RBC (0) /HPF Urine WBC (0-4) /HPF Ur Squamous Epith Cells /LPF Urine Bacteria /LPF Acetone, Qual Negative (Negative) COVID-19 (SONG) (Negative) COVID-19 Clin Com 01/12/21 01/12/21 01/12/21 Range/Units 11:22 11:32 13:03 WBC (4.8-10.8) X10*3/uL RBC (4.20-5.50) X10*6/uL Hgb (12.0-16.0) g/dl Hct (37-47) % MCV (80-98) fL MCH (27.0-33.0) pg MCHC (31.0-35.0) g/dl RDW (11.0-16.0) % Plt Count (160-400) X10*3/uL MPV (9.4-12.3) fL Immature Gran % (Auto) (0.0-0.4) % Neut % (Auto) (45-73) % Lymph % (Auto) (20-40) % [place] % (Auto) (2-11) % Eos % (Auto) (0-4) % Baso % (Auto) (0-2) % Lymph # (Auto) (1.2-4.9) X10*3/uL [place] # (Auto) (0.1-1.2) X10*3/uL Eos # (Auto) (0.0-0.4) X10*3/uL Baso # (Auto) (0.0-0.2) X10*3/uL Abs Immat Gran (auto) (0.00-0.03) X10*3/uL Absolute Neuts (auto) (2.0-8.3) X10*3/uL Absolute Nucleated RBC (0.0-0.012) X10*3/uL Nucleated RBC % (auto) (0.0-0.2) /100WBC VBG pH 7.38 (7.32-7.43) VBG pCO2 45 mmHg VBG pO2 35 mmHg VBG HCO3 27 H (22-26) mmol/L VBG O2 Saturation 58.0 % VBG Base Excess 1.8 mmol/L Sodium (135-145) mmol/L Potassium (3.3-5.1) mmol/L Chloride (96-108) mmol/L Carbon Dioxide (22-29) mmol/L Anion Gap (12-20) BUN (9-16) mg/dL Creatinine (0.5-1.4) mg/dL Estim Creat Clear Calc Estimated GFR POC Glucose (60-115) mg/dL Random Glucose (60-115) mg/dL Calcium (8.4-10.2) mg/dL Magnesium (1.6-2.6) mg/dL Total Bilirubin (0.0-1.0) mg/dL Direct Bilirubin (0.0-0.5) mg/dL AST (5-31) U/L ALT (0-31) U/L Alkaline Phosphatase (39-117) U/L Troponin I High Sens 10.5 (<3.5-17.0) ng/L Total Protein (6.5-8.0) g/dL Albumin (3.5-5.0) g/dL Lipase (8-78) U/L Urine Color STRAW Urine Appearance CLEAR Urine pH 6.0 (5.0-8.0) Ur Specific [place] 1.010 (1.005-1.025) Urine Protein NEG (NEG-TRACE) MG/DL Urine Glucose (UA) >=1000 H (NEG) MG/DL Urine Ketones 15 (NEG) MG/DL Urine Blood TRACE (NEG) Urine Nitrite NEG (NEG) Ur Leukocyte Esterase NEG (NEG) Urine RBC 0-2 (0) /HPF Urine WBC 0-2 (0-4) /HPF Ur Squamous Epith Cells 1+ /LPF Urine Bacteria NONE /LPF Acetone, Qual (Negative) COVID-19 (SONG) (Negative) COVID-19 Clin Com 01/12/21 01/12/21 01/12/21 Range/Units 14:50 16:17 16:17 WBC (4.8-10.8) X10*3/uL RBC (4.20-5.50) X10*6/uL Hgb (12.0-16.0) g/dl Hct (37-47) % MCV (80-98) fL MCH (27.0-33.0) pg MCHC (31.0-35.0) g/dl RDW (11.0-16.0) % Plt Count (160-400) X10*3/uL MPV (9.4-12.3) fL Immature Gran % (Auto) (0.0-0.4) % Neut % (Auto) (45-73) % Lymph % (Auto) (20-40) % [place] % (Auto) (2-11) % Eos % (Auto) (0-4) % Baso % (Auto) (0-2) % Lymph # (Auto) (1.2-4.9) X10*3/uL [place] # (Auto) (0.1-1.2) X10*3/uL Eos # (Auto) (0.0-0.4) X10*3/uL Baso # (Auto) (0.0-0.2) X10*3/uL Abs Immat Gran (auto) (0.00-0.03) X10*3/uL Absolute Neuts (auto) (2.0-8.3) X10*3/uL Absolute Nucleated RBC (0.0-0.012) X10*3/uL Nucleated RBC % (auto) (0.0-0.2) /100WBC VBG pH (7.32-7.43) VBG pCO2 mmHg VBG pO2 mmHg VBG HCO3 (22-26) mmol/L VBG O2 Saturation % VBG Base Excess mmol/L Sodium 135 (135-145) mmol/L Potassium 3.9 (3.3-5.1) mmol/L Chloride 97 (96-108) mmol/L Carbon Dioxide 28 (22-29) mmol/L Anion Gap 14 (12-20) BUN 30 H (9-16) mg/dL Creatinine 1.25 (0.5-1.4) mg/dL Estim Creat Clear Calc 38.9 Estimated GFR 44 POC Glucose 287 H (60-115) mg/dL Random Glucose 336 H (60-115) mg/dL Calcium 9.3 D (8.4-10.2) mg/dL Magnesium (1.6-2.6) mg/dL Total Bilirubin (0.0-1.0) mg/dL Direct Bilirubin (0.0-0.5) mg/dL AST (5-31) U/L ALT (0-31) U/L Alkaline Phosphatase (39-117) U/L Troponin I High Sens (<3.5-17.0) ng/L Total Protein (6.5-8.0) g/dL Albumin (3.5-5.0) g/dL Lipase (8-78) U/L Urine Color Urine Appearance Urine pH (5.0-8.0) Ur Specific [place] (1.005-1.025) Urine Protein (NEG-TRACE) MG/DL Urine Glucose (UA) (NEG) MG/DL Urine Ketones (NEG) MG/DL Urine Blood (NEG) Urine Nitrite (NEG) Ur Leukocyte Esterase (NEG) Urine RBC (0) /HPF Urine WBC (0-4) /HPF Ur Squamous Epith Cells /LPF Urine Bacteria /LPF Acetone, Qual (Negative) COVID-19 (SONG) Negative (Negative) COVID-19 Clin Com See Note ECG Data Attestation: I personally reviewed and interpreted this ECG as follows: ECG interpretation date: 01/12/21 ECG interpretation time: 11:37 Interpretation: Rate: 70 Rhythm: NSR [place]: normal , LVH Normal P waves. Normal LUIS ALBERTO. Normal QRS complex. ST T wave : no HALIE, inverted 1 and aVL, V1-V6 qTC: normal prior studies: some mild changes in inf leads diffusely but no acute ischemia has had inversions in the past The study has been interpreted contemporaneously by me. . Critical Care Time Critical Care Time Critical Care Time: Yes Total Critical Care Time: 35 Attestation: IV HTN medications x 2, IVF x 2L I attest to this time spent taking care of the patient Discharge Plan Discharge Clinical Impression: AUBRIE (acute kidney injury), Uncontrolled hypertension, Acute hyperglycemia Vomiting Qualifiers: Vomiting type: unspecified Vomiting Intractability: intractable Nausea presence: with nausea Qualified Code(s): R11.2 - Nausea with vomiting, unspecified Patient Disposition: Admitted As Inpatient
[2021-01-12] MEDS: 0.9 % Sodium Chloride 1,000 ML 999 ML IVCONT ×2 (11:29→12:58)
[2021-01-12] MEDS: Metoclopramide HCl 10 MG/2 ML VIAL 5 MG IVPUSH (11:30)
[2021-01-12] MEDS: Famotidine/PF 20 MG/2 ML VIAL IVPUSH ×2 (11:30→21:22)
[2021-01-12] MEDS: diphenhydrAMINE HCL 50 MG/ML VIAL 25 MG IVPUSH (11:30)
[2021-01-12 11:36] LABS: MANUAL DIFF FLAG NO
[2021-01-12 11:37] LABS: Basophils Absolute Auto 0.1 X10*3/uL (0.0-0.2); Basophils Percent Auto 0.6 % (0-2); Eosinophils Percent Auto 0.2 % (0-4); Hematocrit 40.9 % (37-47); Hemoglobin 14.3 g/dl (12.0-16.0); Imm Gran Abs Auto 0.02 X10*3/uL (0.00-0.03); Imm Gran Pct Auto 0.2 % (0.0-0.4); Lymphocytes Absolute Auto 1.7 X10*3/uL (1.2-4.9); Lymphocytes Percent Auto 18.8 % (20-40); Mean Corpuscular Hemoglobin 29.5 pg (27.0-33.0); Mean Corpuscular Volume 84.5 fL (80-98); Mean Platelet Volume 11.3 fL (9.4-12.3); Monocytes Absolute Auto 0.7 X10*3/uL (0.1-1.2); Monocytes Percent Auto 8.4 % (2-11); Neutrophils Absolute Auto 6.4 X10*3/uL (2.0-8.3); Neutrophils Percent Auto 71.8 % (45-73); Platelet Count 291 X10*3/uL (160-400); Red Blood Count 4.84 X10*6/uL (4.20-5.50); Red Cell Distribution Width 12.2 % (11.0-16.0); White Blood Count 8.8 X10*3/uL (4.8-10.8)
[2021-01-12 11:40] LABS: VBG Base Excess 1.8 mmol/L; VBG HCO3 27 mmol/L (22-26); VBG pCO2 45 mmHg; VBG pH 7.38 (7.32-7.43); VBG pO2 35 mmHg
[2021-01-12 11:41] LABS: Venous Blood Gas Refer to POC result
[2021-01-12 11:54] LABS: Acetone, serum QL Negative (Negative)
[2021-01-12 12:06] LABS: Alanine Aminotransferase < 6 U/L (0-31); Albumin Level 4.3 g/dL (3.5-5.0); Alkaline Phosphatase 112 U/L (39-117); Aspartate Amino Transferase 9 U/L (5-31); Bilirubin Direct 0.4 mg/dL (0.0-0.5); Bilirubin Total 1.4 mg/dL (0.0-1.0); Lipase 15 U/L (8-78); Magnesium 2.2 mg/dL (1.6-2.6); Total Protein 8.1 g/dL (6.5-8.0)
[2021-01-12 12:31] LABS: Anion Gap 18 (12-20); Blood Urea Nitrogen 41 mg/dL (9-16); Calcium 10.4 mg/dL (8.4-10.2); Carbon Dioxide 27 mmol/L (22-29); Chloride 90 mmol/L (96-108); Creatinine Clr Calc Pharmacy 30.8; Estimated Glomerular Filt Rate 33; Glucose Random 424 mg/dL (60-115); Potassium 3.8 mmol/L (3.3-5.1); Sodium 131 mmol/L (135-145); Troponin-I High Sensitivity 10.5 ng/L (<3.5-17.0)
[2021-01-12] MEDS: Insulin Regular, Human 100 UNIT/ML 3 ML VIAL IVPUSH (12:57)
[2021-01-12 13:10] LABS: Glucose Urine UA >=1000 MG/DL (NEG); Leukocyte Esterase Urine NEG (NEG); Nitrite Urine NEG (NEG); Urine Blood TRACE (NEG); Urine Ketones 15 MG/DL (NEG); Urine Protein NEG (NEG-TRACE)
[2021-01-12 13:20] LABS: Appearance Urine CLEAR; Color Urine STRAW
[2021-01-12] MEDS: hydrALAZINE HCl 20 MG/ML VIAL 10 MG IVPUSH (13:27)
[2021-01-12 13:41] LABS: RBC Urine 0-2 /HPF (0); Squamous Epithelial Cell Urine 1+ /LPF; WBC Urine 0-2 /HPF (0-4)
[2021-01-12 14:55] LABS: Glucose, Whole Blood 287 mg/dL (60-115)
[2021-01-12] MEDS: Labetalol HCL 100 MG/20 ML VIAL 10 MG IVPUSH (14:59)
[2021-01-12] MEDS: ondansetron HCL 4 MG/2 ML VIAL IVPUSH (15:33)
--- NOTE | 2021-01-12 16:41 | PM.EVENT ---
Event Note Date of Service: 01/12/21 Event Note: Patient seen examined case discussed with APC 61-year-old female with past medical history significant for DM , R foot charcot just had wound completed doxy, COPD, came to emergency room with symptoms of nausea vomiting and epigastric pain denies diarrhea symptoms started after eating a sandwich, abdominal and pelvic CT without contrast showed no evidence of small-bowel obstruction was significant burden of formed stools in the colon On examination patient awake alert Abdomen mild epigastric tenderness, good bowel sounds, no distension Assessment and plan Intractable nausea vomiting and epigastric pain likely due to gastroenteritis/constipation Will treat patient with analgesics anti emetics and stool softener, placed on clear liquid diet IV fluids Continue home medication
[2021-01-12 16:42] LABS: COVID-19 Test Negative (Negative)
[2021-01-12 16:50] LABS: Anion Gap 14 (12-20); Blood Urea Nitrogen 30 mg/dL (9-16); Calcium 9.3 mg/dL (8.4-10.2); Carbon Dioxide 28 mmol/L (22-29); Chloride 97 mmol/L (96-108); Creatinine Clr Calc Pharmacy 38.9; Estimated Glomerular Filt Rate 44; Glucose Random 336 mg/dL (60-115); Potassium 3.9 mmol/L (3.3-5.1); Sodium 135 mmol/L (135-145)
[2021-01-12] MEDS: Enoxaparin Sodium 40 MG/0.4 ML SYRINGE SUBCUT (18:00)
[2021-01-12] MEDS: 0.9 % Sodium Chloride 1,000 ML 100 ML IVCONT (19:17)
[2021-01-12 21:16] LABS: Glucose, Whole Blood 263 mg/dL (60-115)
[2021-01-12] MEDS: Atorvastatin Calcium 40 MG TABLET PO (21:21)
[2021-01-12] MEDS: Insulin Glargine,Hum.rec.anlog 100 UNIT/ML 10 ML VIAL 30 UNIT SUBCUT (21:21)
[2021-01-12] MEDS: Gabapentin 600 MG TABLET PO (21:21)
[2021-01-13] MEDS: 0.9 % Sodium Chloride 1,000 ML 100 ML IVCONT ×2 (05:14→15:28)
[2021-01-13 05:59] VITALS: BP 161/75; PULSE 77; RESP 19; O2SAT 97
[2021-01-13 06:57] LABS: MANUAL DIFF FLAG NO
[2021-01-13 07:12] LABS: Basophils Percent Auto 0.4 % (0-2); Eosinophils Absolute Auto 0.1 X10*3/uL (0.0-0.4); Eosinophils Percent Auto 0.5 % (0-4); Hematocrit 34.8 % (37-47); Hemoglobin 11.9 g/dl (12.0-16.0); Imm Gran Abs Auto 0.04 X10*3/uL (0.00-0.03); Imm Gran Pct Auto 0.4 % (0.0-0.4); Lymphocytes Absolute Auto 2.3 X10*3/uL (1.2-4.9); Lymphocytes Percent Auto 25.1 % (20-40); Mean Corpuscular HGB Conc 34.2 g/dl (31.0-35.0); Mean Corpuscular Hemoglobin 29.8 pg (27.0-33.0); Mean Platelet Volume 11.5 fL (9.4-12.3); Monocytes Absolute Auto 0.8 X10*3/uL (0.1-1.2); Monocytes Percent Auto 8.6 % (2-11); Neutrophils Absolute Auto 6.1 X10*3/uL (2.0-8.3); Platelet Count 248 X10*3/uL (160-400); Red Cell Distribution Width 12.7 % (11.0-16.0); White Blood Count 9.3 X10*3/uL (4.8-10.8)
[2021-01-13 07:23] LABS: Glucose, Whole Blood 285 mg/dL (60-115)
[2021-01-13 07:34] LABS: Anion Gap 14 (12-20); Blood Urea Nitrogen 26 mg/dL (9-16); Calcium 9.1 mg/dL (8.4-10.2); Carbon Dioxide 26 mmol/L (22-29); Chloride 100 mmol/L (96-108); Creatinine Clr Calc Pharmacy 42.7; Estimated Glomerular Filt Rate 48; Glucose Random 352 mg/dL (60-115); Potassium 3.6 mmol/L (3.3-5.1); Sodium 136 mmol/L (135-145)
[2021-01-13] MEDS: Insulin Lispro 100 UNIT/ML 3 ML VIAL SUBCUT ×2 (07:40→17:30)
[2021-01-13 08:11] VITALS: BP 172/66; PULSE 67
[2021-01-13] MEDS: Cholecalciferol (Vitamin D3) 25 MCG TABLET 50 MCG PO (08:11)
[2021-01-13] MEDS: buPROPion HCl XL 300 MG TAB.ER.24H PO (08:11)
[2021-01-13] MEDS: lisinopriL 10 MG TABLET PO (08:11)
[2021-01-13] MEDS: Gabapentin 600 MG TABLET PO ×2 (08:11→14:08)
[2021-01-13] MEDS: Famotidine/PF 20 MG/2 ML VIAL IVPUSH (08:12)
[2021-01-13] MEDS: Furosemide 20 MG TABLET PO (08:12)
[2021-01-13] MEDS: Fluticasone Propionate 250 MCG BLST.W.DEV 1 PUFF INHALE (08:47)
[2021-01-13 10:12] VITALS: BP 146/65; PULSE 95
[2021-01-13] MEDS: polyethylene glycoL 3350 17 GM POWD.PACK PO (10:12)
[2021-01-13] MEDS: amLODIPine Besylate 2.5 MG TABLET PO (10:12)
--- NOTE | 2021-01-13 11:23 | PM.DS ---
DS: Providers Provider Date of Service: 01/13/21 Date of admission: 01/12/21 17:59 Date of discharge: 01/13/21 Primary care physician: Ellen Cheema MD Admitting clinician: Lucille Perez Attending physician on admission: Edita Choi Attending physician on discharge: Edita Choi Discharging clinician: Lucille Perez DS: Diagnosis Discharge Diagnosis (1) Gastroenteritis: Status: Acute (2) Constipation: Status: Acute DS: Medications Discharge Medications Home Medications: Home Medications Medication Instructions Recorded Confirmed albuterol sulfate 90 mcg/actuation 2 puff PO Q4H PRN 04/24/20 01/12/21 aerosol inhaler aspirin 81 mg tablet,delayed 81 mg PO DAILY 04/24/20 01/12/21 release atorvastatin 40 mg tablet 40 mg PO BEDTIME 04/24/20 01/12/21 bupropion HCl 150 mg tablet,12 hr 150 mg PO BID 04/24/20 01/12/21 sustained-release cholecalciferol (vitamin D3) 50 50 mcg PO DAILY 04/24/20 01/12/21 mcg (2,000 unit) tablet furosemide 20 mg tablet 20 mg PO QAM 04/24/20 01/12/21 lancets 33 gauge #100 ea 04/24/20 01/13/21 lisinopril 10 mg tablet 10 mg PO DAILY 04/24/20 01/12/21 metformin 1,000 mg tablet 1,000 mg PO BIDWMEAL 04/24/20 01/12/21 omeprazole 20 mg capsule,delayed 20 mg PO DAILY 04/24/20 01/12/21 release gabapentin 600 mg tablet 600 mg PO TID 05/03/20 01/12/21 Flovent HFA 2 puff INHALATION BID 05/28/20 01/12/21 methadone [Methadone Intensol] 95 mg DAILY 05/28/20 01/12/21 insulin aspart U-100 [Novolog 4 - 28 unit SUBCUT TID 12/26/20 01/12/21 Flexpen U-100 Insulin] insulin degludec [Tresiba 20 unit SUBCUT BID 01/12/21 01/12/21 FlexTouch U-100] Previous Rx's Medication Instructions Recorded walker #1 ea 10/11/20 DS: Summary Hospital Course Hospital Course: 61 year old women with history of diabetes, hypertension and tobacco use admitted with intractable nausea and vomiting. She had these symptoms for about 4 days after she had a sandwich. She was started on clear liquid diet, IV pepcid, IV fluids. Her nausea improved. Abdominal cat scan showed no bowel obstruction, but noted stool burden. She was given miralax and bisacodyl suppositories. Her diet was advanced and she had no further nausea or vomiting. Symptoms likely secondary to gastroenteritis secondary to outside food and some degree of constipation. Increase fiber in diet and may use over the counter stool softeners and laxatives. Time Spent with Patient Time attestation: Total time spent providing and/or coordinating discharge services: Discharge coordination time: Greater than 30 minutes Quality: Stroke Does the patient have a stroke diagnosis?: No Physical Exam Vital Signs: Vital Signs: Last Vital Signs Temp 98.9 F 01/12/21 14:46 Pulse 95 01/13/21 10:12 Resp 19 01/13/21 05:59 BP 146/65 H 01/13/21 10:12 Pulse Ox 97 01/13/21 05:59 Body Mass Index 29.2 Appearing in no acute distress head is normocephalic atraumatic eyes pupils are PERRLA sclera is anicteric mouth throat mucous membranes are intact and moist neck is supple no lymphadenopathy, no JVD noted lung sounds are clear to auscultation heart regular rate rhythm, clear S1, S2 positive bowel sounds, abdomen is soft, nontender neuro patient is alert x3, no focal deficits DS: Data Data Completed and Pending Completed studies during hospitalization [Text1]: Procedures Compression of Right Foot using Pressure Dressing (05/28/20) Labs on day of discharge: Laboratory Results - last 24 hr 01/12/21 01/12/21 01/12/21 11:22 11:22 11:22 WBC 8.8 RBC 4.84 D Hgb 14.3 D Hct 40.9 D MCV 84.5 MCH 29.5 MCHC 35.0 RDW 12.2 Plt Count 291 D MPV 11.3 Immature Gran % (Auto) 0.2 Neut % (Auto) 71.8 Lymph % (Auto) 18.8 L [place] % (Auto) 8.4 Eos % (Auto) 0.2 Baso % (Auto) 0.6 Lymph # (Auto) 1.7 [place] # (Auto) 0.7 Eos # (Auto) 0.0 Baso # (Auto) 0.1 Abs Immat Gran (auto) 0.02 Absolute Neuts (auto) 6.4 Absolute Nucleated RBC 0.000 Nucleated RBC % (auto) 0.0 VBG pH VBG pCO2 VBG pO2 VBG HCO3 VBG O2 Saturation VBG Base Excess Sodium 131 L Potassium 3.8 D Chloride 90 L Carbon Dioxide 27 Anion Gap 18 BUN 41 H D Creatinine 1.58 H Estim Creat Clear Calc 30.8 Estimated GFR 33 POC Glucose Random Glucose 424 H* Calcium 10.4 H D Magnesium 2.2 Total Bilirubin 1.4 H Direct Bilirubin 0.4 AST 9 ALT < 6 Alkaline Phosphatase 112 D Troponin I High Sens 10.5 Total Protein 8.1 H Albumin 4.3 Lipase 15 Urine Color Urine Appearance Urine pH Ur Specific [place] Urine Protein Urine Glucose (UA) Urine Ketones Urine Blood Urine Nitrite Ur Leukocyte Esterase Urine RBC Urine WBC Ur Squamous Epith Cells Urine Bacteria Acetone, Qual Negative COVID-19 (SONG) COVID-19 [employer] 01/12/21 01/12/21 01/12/21 11:32 13:03 14:50 WBC RBC Hgb Hct MCV MCH MCHC RDW Plt Count MPV Immature Gran % (Auto) Neut % (Auto) Lymph % (Auto) [place] % (Auto) Eos % (Auto) Baso % (Auto) Lymph # (Auto) [place] # (Auto) Eos # (Auto) Baso # (Auto) Abs Immat Gran (auto) Absolute Neuts (auto) Absolute Nucleated RBC Nucleated RBC % (auto) VBG pH 7.38 VBG pCO2 45 VBG pO2 35 VBG HCO3 27 H VBG O2 Saturation 58.0 VBG Base Excess 1.8 Sodium Potassium Chloride Carbon Dioxide Anion Gap BUN Creatinine Estim Creat Clear Calc Estimated GFR POC Glucose 287 H Random Glucose Calcium Magnesium Total Bilirubin Direct Bilirubin AST ALT Alkaline Phosphatase Troponin I High Sens Total Protein Albumin Lipase Urine Color STRAW Urine Appearance CLEAR Urine pH 6.0 Ur Specific [place] 1.010 Urine Protein NEG Urine Glucose (UA) >=1000 H Urine Ketones 15 Urine Blood TRACE Urine Nitrite NEG Ur Leukocyte Esterase NEG Urine RBC 0-2 Urine WBC 0-2 Ur Squamous Epith Cells 1+ Urine Bacteria NONE Acetone, Qual COVID-19 (SONG) COVID-19 [employer] 01/12/21 01/12/21 01/12/21 16:17 16:17 21:12 WBC RBC Hgb Hct MCV MCH MCHC RDW Plt Count MPV Immature Gran % (Auto) Neut % (Auto) Lymph % (Auto) [place] % (Auto) Eos % (Auto) Baso % (Auto) Lymph # (Auto) [place] # (Auto) Eos # (Auto) Baso # (Auto) Abs Immat Gran (auto) Absolute Neuts (auto) Absolute Nucleated RBC Nucleated RBC % (auto) VBG pH VBG pCO2 VBG pO2 VBG HCO3 VBG O2 Saturation VBG Base Excess Sodium 135 Potassium 3.9 Chloride 97 Carbon Dioxide 28 Anion Gap 14 BUN 30 H Creatinine 1.25 Estim Creat Clear Calc 38.9 Estimated GFR 44 POC Glucose 263 H Random Glucose 336 H Calcium 9.3 D Magnesium Total Bilirubin Direct Bilirubin AST ALT Alkaline Phosphatase Troponin I High Sens Total Protein Albumin Lipase Urine Color Urine Appearance Urine pH Ur Specific [place] Urine Protein Urine Glucose (UA) Urine Ketones Urine Blood Urine Nitrite Ur Leukocyte Esterase Urine RBC Urine WBC Ur Squamous Epith Cells Urine Bacteria Acetone, Qual COVID-19 (SONG) Negative COVID-19 Clin Com See Note 01/13/21 01/13/21 01/13/21 06:34 06:34 07:19 WBC 9.3 RBC 4.00 L Hgb 11.9 L Hct 34.8 L MCV 87.0 MCH 29.8 MCHC 34.2 RDW 12.7 Plt Count 248 MPV 11.5 Immature Gran % (Auto) 0.4 Neut % (Auto) 65.0 Lymph % (Auto) 25.1 [place] % (Auto) 8.6 Eos % (Auto) 0.5 Baso % (Auto) 0.4 Lymph # (Auto) 2.3 [place] # (Auto) 0.8 Eos # (Auto) 0.1 Baso # (Auto) 0.0 Abs Immat Gran (auto) 0.04 H Absolute Neuts (auto) 6.1 Absolute Nucleated RBC 0.000 Nucleated RBC % (auto) 0.0 VBG pH VBG pCO2 VBG pO2 VBG HCO3 VBG O2 Saturation VBG Base Excess Sodium 136 Potassium 3.6 Chloride 100 Carbon Dioxide 26 Anion Gap 14 BUN 26 H Creatinine 1.14 Estim Creat Clear Calc 42.7 Estimated GFR 48 POC Glucose 285 H Random Glucose 352 H* Calcium 9.1 Magnesium Total Bilirubin Direct Bilirubin AST ALT Alkaline Phosphatase Troponin I High Sens Total Protein Albumin Lipase Urine Color Urine Appearance Urine pH Ur Specific [place] Urine Protein Urine Glucose (UA) Urine Ketones Urine Blood Urine Nitrite Ur Leukocyte Esterase Urine RBC Urine WBC Ur Squamous Epith Cells Urine Bacteria Acetone, Qual COVID-19 (SONG) COVID-19 Clin Com Discharge Plan Discharge Anticipated Discharge Date/Time: 01/13/21 11:17 Patient Disposition: Home, Self-Care Discharge Diagnosis: Gastroenteritis Constipation Referrals: Ellen Cheema MD [Primary Care Provider] - 1 Week Discharge Medications: New amlodipine 2.5 mg Tablet 2.5 mg PO DAILY Qty: 30 RF: 0 Continued (DME) walker Misc See Rx Instructions .ROUTE .MEDSUPPLY Qty: 1 RF: 0 Tresiba FlexTouch U-100 100 unit/mL (3 mL) insulin pen 20 unit subcut BID RF: 0 Flovent HFA 110 mcg/actuation Hfa Aerosol Inhaler 2 puff INHALATION BID RF: 0 methadone [Methadone Intensol] 10 mg/mL Concentrate 95 mg DAILY RF: 0 insulin aspart U-100 [Novolog Flexpen U-100 Insulin] 100 unit/mL (3 mL) insulin pen 4 - 28 unit subcut TID RF: 0 gabapentin 600 mg tablet 600 mg PO TID RF: 0 (DME) lancets 33 gauge misc See Rx Instructions ea Not Applicable TID Qty: 100 RF: 0 cholecalciferol (vitamin D3) 50 mcg (2,000 unit) tablet 50 mcg PO DAILY RF: 0 albuterol sulfate 90 mcg/actuation HFA aerosol inhaler 2 puff PO Q4H PRN (Reason: Respiratory Distress) RF: 0 furosemide 20 mg tablet 20 mg PO QAM RF: 0 lisinopril 10 mg tablet 10 mg PO DAILY RF: 0 omeprazole 20 mg capsule,delayed release(DR/EC) 20 mg PO DAILY RF: 0 metformin 1,000 mg tablet 1,000 mg PO BIDWMEAL RF: 0 aspirin 81 mg tablet,delayed release (DR/EC) 81 mg PO DAILY RF: 0 bupropion HCl 150 mg tablet sustained-release 12 hr 150 mg PO BID RF: 0 atorvastatin 40 mg tablet 40 mg PO BEDTIME RF: 0 Discharge Orders: Discharge Order (Routine); Ordered 01/13/21 Ordered By: Lucille Perez Diet: advance to usual diet Activity on Discharge: As tolerated Stand Alone Forms: Patient Portal Discharge page Care Plan Goals: Resolution of nausea and vomiting Health Concerns: Gastroenteritis Constipation Plan of Treatment: Follow-up with primary care provider as needed May use over the counter stool softeners or laxatives as needed for constipation, increase fiber in your diet. Assessment: see discharge summary
[2021-01-13 13:00] VITALS: BP 125/63; PULSE 60; RESP 18; TEMP 36.1; O2SAT 99
[2021-01-13 13:08] LABS: Glucose, Whole Blood 163 mg/dL (60-115)
[2021-01-13] MEDS: bisacodyL 10 MG SUPP.RECT PR (13:16)
--- NOTE | 2021-01-13 13:52 | MHC.CM.PN ---
CM met with Patient at bedside and addressed CAMACHO with her, providing her with the original and placing a copy on the chart. Patient lives in an apartment with her and adult Daughter and she uses both a cane and a walker to assist with mobility. Patient's goal is to return home with new [facility] and CM has initiated and will follow for dc planning. PCP is Dr. Ellen Cheema.
[2021-01-13] MEDS: Acetaminophen 325 MG TABLET 650 MG PO (15:27)
[2021-01-13 15:33] VITALS: BP 172/75; PULSE 65; RESP 18; TEMP 36.6; O2SAT 65
[2021-01-13 16:20] LABS: Glucose, Whole Blood 222 mg/dL (60-115)
--- NOTE | 2021-01-13 16:59 | PM.EVENT ---
Event Note Date of Service: 01/13/21 Event Note: Patient seen examined this a.m. case discussed with APC Patient nausea vomiting and abdominal pain resolved, remained constipated, tolerating clear liquid diet, asking for methadone On examination Abdomen soft nontender bowel sounds are audible no distension Assessment and plan Intractable nausea vomiting abdominal pain and constipation, all symptoms resolved except remains constipated will be aggressively treated with bowel regimes will advance diet to regular if patient tolerates regular diet and have a bowel movement will be discharged home on all of her baseline medication since she is on methadone will need daily stool softeners and high-fiber diet.
--- NOTE | 2021-01-14 10:23 | HP_ITS ---
DATE OF SERVICE: 01/12/2021 CHIEF COMPLAINT: Nausea and vomiting. HISTORY OF PRESENT ILLNESS: A 61-year-old woman with a history of diabetes mellitus, peripheral arterial disease, COPD, presenting to the ER with complaining of worsening nausea and vomiting over the last 4-5 days. She reports epigastric pain with belching and flatus. She denies any recent travel, fever, chills. Apparently, these episodes started after eating a sandwich. She denied any diarrhea or blood in her stools or emesis. She was recently discharged from [facility] on December 27 and at that time treated for osteomyelitis of the right foot. She was discharged with 7 days of doxycycline and completed that treatment. In the ER, labs all within acceptable limits. She was noted to have elevated blood pressure with highest reading of 229/94. She was given some Zofran, IV fluid, Pepcid, Reglan and Benadryl in the ER and this seemed to help, her symptoms did improve some. She will be placed on observation for intractable nausea and vomiting. PAST MEDICAL HISTORY: 1. COPD. 2. Chronic opiate abuse, on methadone. 3. Depression. 4. Diabetes mellitus. 5. Diabetic foot infection with history of osteomyelitis. 6. Hyperlipidemia. 7. Glaucoma. 8. Congestive heart failure. 9. History of pulmonary embolus. 10. History of pulmonary nodule. 11. Tobacco dependence. 12. Left cataract extraction. 13. Right cataract extraction. 14. Cholecystectomy. SOCIAL HISTORY: Smokes half pack of cigarettes a day. Previous opiate abuse. Last use 3 years ago on methadone. Denies any heavy alcohol use. ALLERGIES: NO KNOWN ALLERGIES. MEDICATIONS: 1. Albuterol sulfate 90 mcg 2 puffs p.o. q.4 hours p.r.n. 2. Aspirin 81 mg p.o. daily. 3. Atorvastatin 40 mg p.o. at bedtime. 4. Bupropion 150 mg p.o. b.i.d. 5. Cholecalciferol 50 mcg p.o. daily. 6. Flovent 2 puffs b.i.d. 7. Furosemide 20 mg p.o. daily. 8. Gabapentin 600 mg p.o. t.i.d. 9. Insulin Aspar sliding scale t.i.d. 10. Tresiba 20 units subcu b.i.d. 11. Lisinopril 10 mg p.o. daily. 12. Metformin 1000 mg p.o. b.i.d. 13. Methadone Intensol 95 mg daily. 14. Omeprazole 20 mg p.o. daily. REVIEW OF SYSTEMS: CONSTITUTIONAL: Denies any recent fever, chills, or decrease in appetite. RESPIRATORY: Denies any shortness of breath, cough, or sputum production. CARDIOVASCULAR: Denies any chest pain, orthopnea, PND, or edema. GASTROINTESTINAL: See HPI. GENITOURINARY: Denies any dysuria, frequency, hematuria. MUSCULOSKELETAL: Denies joint pain or swelling. NEUROPSYCH: Denies any weakness or seizures. All other systems are reviewed and are negative. PHYSICAL EXAMINATION: CONSTITUTIONAL: Resting in bed. No acute distress. VITAL SIGNS: 98.9, 67, 16, 164/57, 95% on room air. SKIN: Intact without rash or open sores. HEENT: Head is normocephalic, atraumatic. Eyes, pupils are PERRLA. Sclerae anicteric. Mouth and Throat: Mucous membranes are intact and moist. NECK: Supple. No lymphadenopathy. No JVD noted. CHEST: Clear to auscultation without wheezes, rhonchi, or rales. HEART: Regular rate and rhythm. Clear S1, S2. No murmurs, rubs, gallops. ABDOMEN: Positive bowel sounds. Abdomen is soft, mildly tender to the epigastrium. NEURO: The patient is alert x3. Cranial nerves II through XII are grossly intact without focal deficits. LABORATORY DATA: Sodium 135, potassium 3.9, chloride 97, BUN 30, creatinine 1.25. WBC 8.8, hemoglobin 14.3, hematocrit 40.9, and platelets 291. COVID negative. Negative acetone. ASSESSMENT AND PLAN: A 61-year-old woman who is being admitted with intractable nausea and vomiting. No diabetic ketoacidosis. The patient reports symptoms started about 4-5 days ago, have somewhat improved. She did present with hypertensive urgency. However, this did improve with some beta-pablo. 1. Intractable nausea and vomiting. IV fluids, clear liquid diet, antiemetics, PPI. If symptoms do not improve, consider consulting Gastroenterology. 2. Hypertensive urgency. Resolved with beta-pablo and hydralazine. Continue home dose of lisinopril. Add another agent if blood pressure continues to be elevated. 3. Diabetes mellitus. No diabetes ketoacidosis. We will hold metformin for now, sliding scale. Clear liquid diet and advanced ADA when tolerating. 4. Chronic obstructive pulmonary disease. No exacerbation. Continue albuterol. 5. Peripheral arterial disease. Continue aspirin and statin. 6. Mental health. Continue bupropion. 7. Diabetic neuropathy. Continue gabapentin. 8. Deep vein thrombosis prophylaxis with heparin. 9. Case discussed with Dr. Choi. 10. Full code. RANDOLPH Pichardo MD JR/MODL / [id number]
== END 2021-01-13 18:00 | disposition home or self-care (01) ==
LOC: HO.ED 15:16 → HO.EDOVER 18:21 → HO.IMC 01-13 11:19
PROVIDERS: Admitting Provider Nurse Practitioner Acute Care; Emergency Provider Emergency Medicine; PCP Family Medicine; Visit Provider Hospitalist
DX: K52.9 Noninfective gastroenteritis and colitis, unspecified (principal); K59.00 Constipation, unspecified; N17.9 Acute kidney failure, unspecified; R11.2 Nausea with vomiting, unspecified; I10 Essential (primary) hypertension; I51.7 Cardiomegaly; R73.9 Hyperglycemia, unspecified; E78.5 Hyperlipidemia, unspecified; F17.210 Nicotine dependence, cigarettes, uncomplicated; Z20.822 Contact with and (suspected) exposure to COVID-19; Z79.899 Other long term (current) drug therapy
CPT/HCPCS: 36415; 74176; 80048; 80076; 81001; 82009; 82947; 83690; 83735; 84484; 85025; 87635; 93005; 96361; 96374; 96375; 96376; 99219; 99285; 99291; J1200; J1650; J2405; J2765

== ENCOUNTER 2021-02-06 15:40 | Outpatient (REF) | payer MEDICARE, MEDICAID, SELFPAY ==
--- NOTE | ~2021-02-06 | US_ITS ---
EXAMINATION: US VENOUS ULTRASOUND WITH DOPPLER LOWER EXTREMITY, RIGHT CLINICAL INFORMATION: Right leg pain and swelling. COMPARISON: None TECHNIQUE: Ultrasound of the deep veins is performed from the hip to the calf with compression sonography and color and pulse Doppler assessment. Spectral analysis with color-flow imaging is performed. FINDINGS: There is normal venous compression and respiratory variation and augmented flow. The visualized common femoral vein, superficial femoral vein, profunda femoral vein, popliteal vein, and the trifurcation region shows no evidence of deep venous thrombosis. There is no significant popliteal fossa cyst. The posterior tibial vein was seen with difficulty. The peroneal vein is not well visualized. If the patient's symptoms persist, followup ultrasound in 5 days 7 days might be of value to exclude proximal propagation from a non-visualized calf vein. US/US venous duplex LE RT IMPRESSION: No DVT demonstrated in the right lower extremity.
== END 2021-02-06 15:41 | disposition home or self-care (01) ==
LOC: HO.US 15:40
PROVIDERS: PCP Family Medicine; Visit Provider Surgery
DX: M79.604 Pain in right leg (principal); M79.89 Other specified soft tissue disorders
CPT/HCPCS: 93971

== ENCOUNTER 2021-05-23 12:48 | Emergency (ER) | payer MEDICARE, MEDICAID, SELFPAY ==
--- NOTE | ~2021-05-23 | XR_ITS ---
EXAMINATION: XR SHOULDER, LEFT CLINICAL INFORMATION: Trauma, pain COMPARISON: Chest radiograph 12/26/2020, 07/15/2020 TECHNIQUE: Left shoulder is imaged in 3 views. FINDINGS: There is no fracture or dislocation. Again, there are degenerative changes acromioclavicular joint and the glenohumeral joint. Chronic circumscribed small cystic changes are again seen humeral head similar to prior radiographs. No interval destructive process or periostitis. No rotator cuff calcifications. XR/XR shoulder LT min 2V IMPRESSION: 1. No fracture or dislocation. 2. Degenerative changes glenohumeral joint and acromioclavicular joint.
[2021-05-23 14:09] VITALS: BP 125/48; PULSE 64; RESP 17; TEMP 36.3; O2SAT 96; BMI 29.2
[2021-05-23 14:45] LABS: Glucose, Whole Blood 414 mg/dL (60-115)
--- NOTE | 2021-05-23 14:49 | ED_ITS ---
HPI - Extremity Problem General Chief complaint: Extremity Injury, Upper Stated complaint: FALL SHOULDER INJ Time Seen by Provider: 05/23/21 14:43 Source: patient and family (Son at the bedside) Mode of arrival: ambulatory Limitations: no limitations History of Present Illness HPI Narrative: 61-year-old female past medical history significant for peripheral artery disease, depression, diabetes, COPD presents to the emergency department with left shoulder pain status post fallyeerday at midnight. Patient states last night she was sitting on her walker, and she fell asleep and fell forward she landed on her left shoulder. She states she has been having 10/10 constant pain since last night at midnight. She has not taken anything for her pain. She states that the pain is severe and sharp. Pain is worse with movement better at rest. Patient is able to move the left upper extremity however, it causes her severe pain. No chest pain, shortness of breath, fevers, chills, headache, vision changes, loss of consciousness, vomiting, nausea, abdominal pain.Patient on ASA no other blood thinners MD Complaint: extremity pain Onset (ago): day(s) (1) Pain Consistency: constant Location: left Severity scale (1-10): 10 Quality: sharp and constant Radiation: none Relieving factors: nothing Exacerbating factors: nothing Associated symptoms: denies other symptoms Related Data Home Medications Medication Instructions Recorded Confirmed albuterol sulfate 90 mcg/actuation 2 puff PO Q4H PRN 04/24/20 01/12/21 aerosol inhaler aspirin 81 mg tablet,delayed 81 mg PO DAILY 04/24/20 01/12/21 release atorvastatin 40 mg tablet 40 mg PO BEDTIME 04/24/20 01/12/21 bupropion HCl 150 mg tablet,12 hr 150 mg PO BID 04/24/20 01/12/21 sustained-release cholecalciferol (vitamin D3) 50 50 mcg PO DAILY 04/24/20 01/12/21 mcg (2,000 unit) tablet furosemide 20 mg tablet 20 mg PO QAM 04/24/20 01/12/21 lancets 33 gauge #100 ea 04/24/20 01/13/21 lisinopril 10 mg tablet 10 mg PO DAILY 04/24/20 01/12/21 metformin 1,000 mg tablet 1,000 mg PO BIDWMEAL 04/24/20 01/12/21 omeprazole 20 mg capsule,delayed 20 mg PO DAILY 04/24/20 01/12/21 release gabapentin 600 mg tablet 600 mg PO TID 05/03/20 01/12/21 fluticasone propionate 110 2 puff INHALATION BID 05/28/20 01/12/21 mcg/actuation HFA aerosol inhaler (Flovent HFA) methadone 10 mg/mL oral 95 mg DAILY 05/28/20 01/12/21 concentrate (Methadone Intensol) insulin aspart U-100 100 unit/mL 4 - 28 unit SUBCUT TID 12/26/20 01/12/21 (3 mL) subcutaneous pen (Novolog Flexpen U-100 Insulin aspart) insulin degludec 100 unit/mL (3 20 unit SUBCUT BID 01/12/21 01/12/21 mL) subcutaneous pen (Tresiba FlexTouch U-100 insulin) Previous Rx's Medication Instructions Recorded walker #1 ea 10/11/20 amlodipine 2.5 mg tablet 2.5 mg PO DAILY #30 tab 01/13/21 Allergies Allergy/AdvReac Type Severity Reaction Status Date / Time No Known Allergies Allergy Verified 05/23/21 14:09 Review of Systems Review of Systems: Constitutional : No Weight loss, No Fever, No Chills, No Fatigue, No Malaise ENT/Mouth : No sore throat, No Rhinorrhea Eyes: No Eye Pain, No Swelling, No Redness Cardiovascular : No Chest Pain, No SOB, No Dyspnea on Exertion, No Orthopnea, No Edema, No Palpitations Respiratory : No Cough, No Sputum, No Wheezing Gastrointestinal : No Nausea, No Vomiting, No Diarrhea, No Constipation, No abdominal Pain, No Hematochezia, No Melena Genitourinary : No Dysuria, No Urinary Frequency, No Hematuria, Musculoskeletal : + joint pain, No Myalgias, No Joint Swelling Skin : No Skin Lesions, No rash Neuro : No Weakness, No Numbness, No Dizziness, No Headache All other systems reviewed and are negative [facility] Past Medical History Attestation statement: The following information was validated with the patient. Source: old records reviewed and nursing notes reviewed Medical History Chronic prescription opiate use COPD (chronic obstructive pulmonary disease) Depression Diabetes mellitus Dyslipidemia Glaucoma New onset of congestive heart failure Pulmonary emboli Pulmonary nodule Tobacco dependence Surgical History Cataract extraction status, left eye Cataract extraction status, right eye Hx of cholecystectomy Family History Family History Other CVA (cerebral vascular accident) Social History Social History Household Members: Spouse Housing: House Housing Other:: hotel Do you presently have visiting nurse or other home services: No Alcohol intake: never Patient Tobacco Use Status: Current everyday Tobacco user Tobacco use type: Cigarette Cigarette Packs Per Day: 0.5 Cigarettes Per Day: 10.0 Years Smoked: 45 e-Cigarette/Vaping Use: Currently Using Second Hand Smoke Exposure: No Substance Use Type: Heroin Advance Directives: Yes Advance Directives Information Provided: Yes Advance Directives on File: No Advance Directives Date on File: 12/26/20 Patient : No service: No (hx on methadone) Current occupational status: disabled Physical Exam Vital Signs: Vital Signs: Last Vital Signs Temp 97.4 F 05/23/21 14:09 Pulse 64 05/23/21 14:09 Resp 19 05/23/21 15:29 BP 125/48 L 05/23/21 14:09 Pulse Ox 96 05/23/21 14:09 Body Mass Index 29.2 Appearance: Alert.? Oriented X3.? No acute distress.? Head: Normocephalic, atraumatic, no step-offs or deformities Eyes: Pupils equal, round and reactive to light.? ENT: Pharynx normal.? Neck: Normal inspection.? Neck supple.? CVS: Normal heart rate and rhythm.? Pulses normal.? Respiratory: No respiratory distress.? Breath sounds normal.? Abdomen: Soft and nontender.? Skin: Skin warm and dry.? Normal skin color.? Normal skin turgor.? Extremities: No lower extremity edema.? No calf ttp. 5/5 strength to bilateral upper and lower extremities + painful range of motion to left shoulder + pain to palpation to left shoulder Right shoulder normal. 2+ pulses equal and bilateral to upper extemities. Back: No midline tenderness, no C-spine tenderness, full range of motion, no CVA tenderness bilaterally Neuro: Oriented X 3.? No motor deficit.? No sensory deficit. Course Reevaluation(s) Reevaluation #1: Patient's son and patient admits that patient ate a lot of candy this morning, therefore her sugar is elevated. They also state that she has not taken her medications today, they would rather take her medications at home when they get home. I expressed concern about patient's blood sugar, they told me that they promise that when they got home they would administer her medication, they did not get to this morning because they were in a rash, and she was in a lot of pain. For this reason I will hold on giving any medicine for diabetes as the patient and family feel more comfortable with her getting this medication at home. Time: 15:01 Reevaluation #2: X-ray of left shoulder negative for fractures and dislocations, there are degenerative changes noted. Will discuss these findings with patient. She will be placed in a sling she should wear this for a few days as needed for comfort. She has been advised to return to the emergency department with new or worsening symptoms and she should follow-up with her primary care provider. Time: 15:14 MDM - Extremity (Nontraumatic) MDM Narrative Medical decision making narrative: [id number] 61-year-old female PMHX significant for PAD, depression, DM, COPD presents to the ED with left shoulder pain status post fall off her walker yesterday at midnight landing on her left shoulder. Denies paresthesias, numbness, LOC. She did not hit her head. On ASA Upon physical examination patient appears comfortable and in no acute distress. Lungs are clear to auscultation bilaterally. S1-S2 appreciated free of murmurs.There is painful range of motion to left shoulder and pain to palpation to left shoulder. No distracting injury. Right shoulder normal. 2+ pulses equal and bilateral to upper extremities. Nuerovascularly intact. Patient sensory and motor intact to b/l uper extremities. Normal strength to upper extremities. Plan- administer toradol for pain, xray of left shoulder to rule out dislocation and fx. Lab Data Labs: Lab Results 05/23/21 Range/Units 14:38 POC Glucose 414 H* (60-115) mg/dL Imaging Data Xray left shoulder : Attestation: I personally reviewed and interpreted this imaging study as follows: Radiologist's impression: FINDINGS: There is no fracture or dislocation. Again, there are degenerative changes acromioclavicular joint and the glenohumeral joint. Chronic circumscribed small cystic changes are again seen humeral head similar to prior radiographs. No interval destructive process or periostitis. No rotator cuff calcifications.? XR/XR shoulder LT min 2V IMPRESSION: ? 1. No fracture or dislocation. 2. Degenerative changes glenohumeral joint and acromioclavicular joint. Critical Care Time Critical Care Time Critical Care Time: No Discharge Plan Discharge Clinical Impression: Osteoarthritis Patient Disposition: Home, Self-Care Instructions: Osteoarthritis (ED) Additional Instructions: Take your medications as prescribed. Follow-up with your primary care provider this week. Take ibuprofen every 6 hours and Tylenol every four as needed for pain Return to the emergency department with new or worsening symptoms. In case of emergency call 911 take your diabetic medications Prescriptions: No Action (DME) walker Misc See Rx Instructions .ROUTE .MEDSUPPLY Qty: 1 RF: 0 Tresiba FlexTouch U-100 100 unit/mL (3 mL) insulin pen 20 unit subcut BID RF: 0 amlodipine 2.5 mg Tablet 2.5 mg PO DAILY Qty: 30 RF: 0 Flovent HFA 110 mcg/actuation Hfa Aerosol Inhaler 2 puff INHALATION BID RF: 0 methadone [Methadone Intensol] 10 mg/mL Concentrate 95 mg DAILY RF: 0 insulin aspart U-100 [Novolog Flexpen U-100 Insulin] 100 unit/mL (3 mL) insulin pen 4 - 28 unit subcut TID RF: 0 gabapentin 600 mg tablet 600 mg PO TID RF: 0 (DME) lancets 33 gauge misc See Rx Instructions ea Not Applicable TID Qty: 100 RF: 0 cholecalciferol (vitamin D3) 50 mcg (2,000 unit) tablet 50 mcg PO DAILY RF: 0 albuterol sulfate 90 mcg/actuation HFA aerosol inhaler 2 puff PO Q4H PRN (Reason: Respiratory Distress) RF: 0 furosemide 20 mg tablet 20 mg PO QAM RF: 0 lisinopril 10 mg tablet 10 mg PO DAILY RF: 0 omeprazole 20 mg capsule,delayed release(DR/EC) 20 mg PO DAILY RF: 0 metformin 1,000 mg tablet 1,000 mg PO BIDWMEAL RF: 0 aspirin 81 mg tablet,delayed release (DR/EC) 81 mg PO DAILY RF: 0 bupropion HCl 150 mg tablet sustained-release 12 hr 150 mg PO BID RF: 0 atorvastatin 40 mg tablet 40 mg PO BEDTIME RF: 0 Referrals: Ellen Cheema MD [Primary Care Provider] - 2 days Interventions: ED Discharge Assessment Last Done: 05/23/21 15:30 Discharge Date/Time: 05/23/21 15:32
[2021-05-23] MEDS: Ketorolac Tromethamine 15 MG/ML VIAL 30 MG IM (14:58)
[2021-05-23 15:29] VITALS: RESP 19
--- NOTE | 2021-05-23 15:29 | PC.NURSE ---
EDUCATION DONE REGARDING BLOOD GLUCOSE. PT WILL TAKE HER DM MEDS SOON SHE LEAVES ED.
== END 2021-05-23 15:32 | disposition home or self-care (01) ==
PROVIDERS: Emergency Provider Emergency Medicine Emergency Medical Services; PCP Family Medicine
DX: M19.012 Primary osteoarthritis, left shoulder (principal); M25.512 Pain in left shoulder; E11.9 Type 2 diabetes mellitus without complications; F17.200 Nicotine dependence, unspecified, uncomplicated; E78.5 Hyperlipidemia, unspecified; Z79.02 Long term (current) use of antithrombotics/antiplatelets; Z79.4 Long term (current) use of insulin; Z79.899 Other long term (current) drug therapy
CPT/HCPCS: 73030; 82947; 96372; 99284; J1885

== ENCOUNTER 2021-06-04 12:44 | Emergency (ER) | payer MEDICARE, MEDICAID, SELFPAY ==
[2021-06-04] VITALS (11 sets, daily range): BP systolic 137–171; BP diastolic 43–83; PULSE 68–92; RESP 16–20; TEMP 36.4–37.4; O2SAT 97–100; BMI 29.2
--- NOTE | ~2021-06-04 | CT_ITS ---
EXAMINATION: CT ANGIOGRAM HEAD CT ANGIOGRAM NECK CLINICAL INFORMATION: Two days of vision change. Neck pain. Arm swelling. COMPARISON: CT head from 09/15/2019. TECHNIQUE: Initial noncontrast detective private eye imaging of the head and neck was performed. Noncontrast head CT was also performed. Test bolus sequences followed by intravenous administration 70 mL of Omnipaque 350. Helical imaging was performed in the axial plane from the aortic arch to the skull vertex. Delayed postcontrast imaging of the head was also performed. The data was processed at the wood technologist's workstation for generation of MIP sequences. Angled MIPs and volume rendered reformatted images were also generated at an offline 3D workstation. Stenoses are assessed in accordance with NASCET criteria unless otherwise indicated. This CT examination was performed using dose optimization techniques as appropriate, variously including the following: *Automated exposure control. *Adjustment of mA and/or kV according to patient size (this includes techniques or standardized protocols for targeted exams where dose is matched to indication/reason for exam; i.e. extremities or head). *Use of iterative reconstruction technique. DLP: 2290 mGy-cm FINDINGS: CT Head: There is no evidence of acute intracranial hemorrhage or edematous territorial infarction. Scattered hypoattenuation in the periventricular and deep white matter are consistent with moderate microangiopathy. Bustos-white matter differentiation is preserved. Potential absence of the septum pellucidum. Proportional prominence of the ventricles and sulcal spaces. No evidence for obstructive hydrocephalus. No abnormal mass effect or midline shift. No extra-axial fluid collections. No pathologic intra-axial enhancement or regional oligemia. No acute soft tissue or osseous abnormalities. Mild mucosal thickening of the paranasal sinuses. The mastoid air cells and middle ear cavities are clear. The patient is edentulous. Left-sided scleral banding. There is elongation of the left globe. Bilateral lens extractions. CT Neck: The thyroid gland and remaining cervical soft tissues are within normal limits. Moderate degenerative disc disease from C3-T3 with disc-osteophyte complex formation. Facet and uncovertebral joint arthropathy leads to osseous encroachment on the neural foramina from C5-T1. CT Upper Chest: Mosaic attenuation pattern of the visualized upper lungs. Coronary artery calcifications. The visualized lung apices and upper mediastinum are within normal limits. Neck CTA: Aortic Arch: Normal contour and caliber with mild calcific atherosclerotic disease. Variant three vessel branching pattern with the left common carotid artery arising from the previous trunk and the left vertebral artery arising directly from the arch between the left common carotid and left subclavian arteries. Great Vessel Origins: No significant stenosis of the branch origins. Right Common Carotid Artery: No focal stenosis or occlusion. Cervical Right Internal Carotid Artery: Atherosclerotic disease of the carotid bulb and proximal internal carotid artery causing less than 50% stenosis. Left Common Carotid Artery: No focal stenosis or occlusion. Cervical Left Internal Carotid Artery: Mild calcific atherosclerotic disease of the carotid bulb and proximal internal carotid artery without flow-limiting stenosis. Cervical Right Vertebral Artery: Mildly dominant. Atherosclerotic disease causes moderate stenosis of the origin. No additional focal stenosis or occlusion. Cervical Left Vertebral Artery: No focal stenosis or occlusion. Brain CTA: Intracranial Internal Carotid Arteries: Heavy calcific atherosclerotic disease of the intracranial internal carotid arteries without occlusion.. There is moderate stenosis of the paraophthalmic segment of the right ICA. Normal opacification of the bilateral proximal segments of the ophthalmic arteries. Right Anterior Cerebral Artery: Normal A1 segment. Normal opacification of the distal MARY segments. Left Anterior Cerebral Artery: Normal A1 segment. Normal opacification of the distal MARY segments. Anterior Communicating Artery: Normal. Right Middle Cerebral Artery: Normal M1 segment of the MCA without focal stenosis or occlusion. Normal arborization of the distal segments. Left Middle Cerebral Artery: Normal M1 segment of the MCA without focal stenosis or occlusion. Normal arborization of the distal segments. Right Vertebral Artery: Normal V4 segment. Normal opacification of the proximal segments of the posterior inferior cerebellar artery. Left Vertebral Artery: Normal V4 segment. Normal opacification of the proximal segments of the posterior inferior cerebellar artery. Basilar Artery: Normal without focal stenosis or occlusion. Normal appearance of the proximal superior cerebellar arteries. Right Posterior Cerebral Artery: Normal P1 segment. Normal opacification of the distal ASSISTANT MAINTENANCE MANAGER segments. Left Posterior Cerebral Artery: Normal P1 segment. Normal opacification of the distal ASSISTANT MAINTENANCE MANAGER segments. Normal opacification of the superior sagittal, straight, transverse, and sigmoid sinuses. CT/CT angio head neck IMPRESSION: 1. No evidence of acute intracranial hemorrhage or edematous territorial infarction. Moderate underlying microangiopathy and generalized cerebral volume loss. 2. CTA of the head and neck without proximal occlusion. Calcific atherosclerotic disease causes moderate stenosis of the paraophthalmic segment of the right ICA. No additional flow-limiting stenoses. 3. Moderate multilevel degenerative spondyloarthropathy of the cervical spine.
--- NOTE | ~2021-06-04 | US_ITS ---
EXAMINATION: US VENOUS WITH DOPPLER UPPER EXTREMITY, LEFT CLINICAL INFORMATION: Left upper extremity swelling and edema COMPARISON: None TECHNIQUE: Ultrasound of the upper extremity is performed using compression sonography and color and pulse Doppler flow with assessment of augmentation of flow. There is also imaging and Doppler assessment of the jugular and subclavian veins. Spectral analysis with color-flow imaging is performed. FINDINGS: Respiratory variation, normal compression, and augmented flow are noted throughout the upper extremity including the axillary (not optimally seen), brachial, cubital, and radial and ulnar veins. There is normal flow in the internal jugular and subclavian veins. There is no visible deep or superficial thrombophlebitis. If the patient's symptoms progress, a followup ultrasound in 5 -7 days might be of value to exclude proximal propagation from a nonvisualized distal arm vein. US/US venous duplex UE LT IMPRESSION: No DVT demonstrated in the left upper extremity
--- NOTE | ~2021-06-04 | CT_ITS ---
EXAMINATION: CT CHEST, ABDOMEN AND PELVIS WITHOUT CONTRAST CLINICAL INFORMATION: Shortness of breath, concern for bleeding COMPARISON: CT angiogram of the chest 07/13/2020 via the abdomen and pelvis 01/12/2021 TECHNIQUE: Multidetector volumetric CT imaging of the chest, abdomen, and pelvis was performed without contrast. Axial MIP volume rendering provided. Sagittal and coronal reformatted images were obtained. This CT examination was performed using dose optimization techniques as appropriate, variously including the following: *Automated exposure control *Adjustment of mA and/or kV according to patient size (this includes techniques or standardized protocols for targeted exams where dose is matched to indication/reason for exam; i.e. extremities or head) *Use of iterative reconstruction technique DLP: 1251 mGy-cm. FINDINGS: CHEST: LUNGS: There is some residual interstitial thickening and groundglass opacities in a peribronchovascular distribution throughout both lungs, significantly improved since the prior study. There is some atelectasis versus scarring in the medial left lung base in the lower right upper lobe, and in the lingula. No suspicious nodule or mass. The central airways are patent. MEDIASTINUM: Normal thyroid gland. No significant mediastinal or hilar lymphadenopathy. Normal heart size. Scattered coronary calcifications. Normal caliber of the thoracic aorta with scattered atherosclerotic calcifications. PLEURA: There is no pleural effusion. No pleural mass or thickening. AXILLA: No lymphadenopathy. ABDOMEN AND PELVIS: LIVER, GALLBLADDER, AND BILIARY TREE: The liver is normal in size, shape, and attenuation. No focal hepatic lesion or biliary ductal dilatation is present. The gallbladder is surgically absent. PANCREAS: There is fatty atrophy of the pancreas. No focal lesion. SPLEEN: Unremarkable. ADRENAL GLANDS: Unremarkable. KIDNEYS AND URETERS: The kidneys are normal in size, shape, and attenuation. No hydronephrosis, hydroureter, or calculi seen. No perinephric stranding. There is residual contrast from the earlier CT angiogram of the head and neck within the bilateral renal collecting systems and the bladder. BLADDER: Unremarkable. GASTROINTESTINAL TRACT: Stomach and small bowel are not dilated. No evidence of obstruction. No pericolonic inflammatory change. Normal appendix. ABDOMINAL WALL: No significant hernia is appreciated. LYMPH NODES: Normal. VASCULAR: Normal caliber of the abdominal aorta. Moderate atherosclerotic calcifications. PELVIC VISCERA: Unremarkable. OSSEOUS STRUCTURES: No acute or suspicious osseous abnormality. Multilevel degenerative changes of the spine. CT/CT abdomen pelvis wo con IMPRESSION: 1. Residual interstitial thickening and groundglass opacities throughout both lungs, in a peribronchovascular distribution, may represent residuum of prior infection or inflammation. 2. No acute intra-abdominal or intrapelvic pathology. No bowel obstruction or focal inflammatory change. 3. No evidence of intraperitoneal or retroperitoneal hemorrhage.
--- NOTE | ~2021-06-04 | US_ITS ---
EXAMINATION: NONINVASIVE ASSESSMENT OF THE ARTERIES OF THE LEFT UPPER EXTREMITY Cory Mott MD CLINICAL INFORMATION: Arm swelling and pain TECHNIQUE: Doppler exam of the extremities of the was performed. Velocity measurements and color flow Doppler imaging were performed in the subclavian arteries, axillary arteries, brachial arteries radial artery and ulnar artery. COMPARISON: CTA neck 06/04/2021 FINDINGS: Left upper extremity: Plaque is present in the left subclavian artery and and only a small lumen is seen. However, on the CTA performed earlier, a milder area of stenosis was present in the ultrasound which suggest. Other than plaque in the subclavian, minimal plaque is seen and multiphasic flow is noted throughout entire left upper extremity. Below, velocities are reported in cm per second along with wave form. Proximal subclavian: 172 triphasic Mid subclavian: 144 triphasic Distal subclavian: 123 triphasic Axillary artery: 147 biphasic Brachial artery proximal: 147 biphasic Brachial artery mid: 118 biphasic Brachial artery distal: 136 triphasic Radial artery mid: 87 biphasic Ulnar artery mid: 92 triphasic US/US arterial duplex UE LT IMPRESSION: A stenosis is present in the proximal left subclavian with narrowing of the lumen best demonstrated on the CTA neck performed earlier in the evening. Critical stenosis is not seen and no significant disease is seen elsewhere in the left upper extremity.
--- NOTE | 2021-06-04 16:14 | ED_ITS ---
HPI - General Adult General Chief complaint: General Medical Stated complaint: L Side Arm Pain Swollen Hand Source: patient Mode of arrival: ambulatory Limitations: no limitations History of Present Illness HPI narrative: 61-year-old female presents with left shoulder and arm pain with swelling and changes in vision. Patient does have a history of glaucoma, states that she has seen black foam around her eyes. States that she was evaluated in this emergency department 05/23/2021 for similar complaints of the arm. Onset (ago): day(s) Location: head, eyes and upper extremity Radiation: non-radiation Severity: moderate Severity scale (1-10): 6 Quality: aching Pain Consistency: constant Relieving factors: none Exacerbating factors: movement Associated symptoms: headaches and other (Changes in vision) Treatments prior to arrival: none Related Data Home Medications Medication Instructions Recorded Confirmed albuterol sulfate 90 mcg/actuation 2 puff PO Q4H PRN 04/24/20 06/04/21 aerosol inhaler aspirin 81 mg tablet,delayed 81 mg PO DAILY 04/24/20 06/04/21 release atorvastatin 40 mg tablet 40 mg PO DAILY 04/24/20 06/04/21 bupropion HCl 150 mg tablet,12 hr 150 mg PO BID 04/24/20 06/04/21 sustained-release cholecalciferol (vitamin D3) 50 50 mcg PO DAILY 04/24/20 06/04/21 mcg (2,000 unit) tablet furosemide 20 mg tablet 20 mg PO QAM 04/24/20 06/04/21 lancets 33 gauge #100 ea 04/24/20 06/04/21 lisinopril 10 mg tablet 10 mg PO DAILY 04/24/20 06/04/21 metformin 1,000 mg tablet 1,000 mg PO BIDWMEAL 04/24/20 06/04/21 omeprazole 20 mg capsule,delayed 20 mg PO DAILY 04/24/20 06/04/21 release gabapentin 600 mg tablet 600 mg PO TID 05/03/20 06/04/21 fluticasone propionate 110 2 puff INHALATION BID 05/28/20 06/04/21 mcg/actuation HFA aerosol inhaler (Flovent HFA) methadone 10 mg/mL oral 95 mg DAILY 05/28/20 06/04/21 concentrate (Methadone Intensol) insulin aspart U-100 100 unit/mL See Rx Instructions .ROUTE .COMPLEX 12/26/20 06/04/21 (3 mL) subcutaneous pen (Novolog Flexpen U-100 Insulin aspart) insulin degludec 100 unit/mL (3 40 unit SUBCUT DAILY 06/04/21 06/04/21 mL) subcutaneous pen (Tresiba FlexTouch U-100 insulin) Previous Rx's Medication Instructions Recorded walker #1 ea 10/11/20 Allergies Allergy/AdvReac Type Severity Reaction Status Date / Time No Known Allergies Allergy Verified 05/23/21 14:09 Review of Systems Review of Systems: Constitutional: No Fever, No Chills ENT/Mouth: No Ear Pain, No Hoarseness, No sore throat Eyes: Positive changes in vision, No Eye Pain, No Swelling, No Redness, No Foreign Body Cardiovascular: No Chest Pain, No SOB Respiratory: No Cough, No Dyspnea Gastrointestinal: No Nausea, No Vomiting, No Diarrhea, No abdominal Pain Genitourinary: No Dysuria, No Hematuria Musculoskeletal: positive left arm pain and swelling No Myalgias, No Joint Swelling Skin: No Skin lacerations, No rash Neuro: No Weakness, No Numbness, No Paresthesias, No Loss of Consciousness, No Dizziness, No Headache Psych: No Anxiety/Panic, No Depression Heme/Lymph: no easy bruising, no Lymphadenopathy Endocrine: No Polyuria, No Polydipsia Yes all other systems are reviewed and are negative [facility] Past Medical History Attestation statement: The following information was validated with the patient. Source: old records reviewed Medical History Chronic prescription opiate use COPD (chronic obstructive pulmonary disease) Depression Diabetes mellitus Dyslipidemia Glaucoma New onset of congestive heart failure Pulmonary emboli Pulmonary nodule Tobacco dependence Surgical History Cataract extraction status, left eye Cataract extraction status, right eye Hx of cholecystectomy Family History Family History Other CVA (cerebral vascular accident) Social History Social History Household Members: Spouse Housing: House Housing Other:: hotel Do you presently have visiting nurse or other home services: No Alcohol intake: never Patient Tobacco Use Status: Current everyday Tobacco user Tobacco use type: Cigarette Cigarette Packs Per Day: 0.5 Cigarettes Per Day: 10.0 Years Smoked: 45 e-Cigarette/Vaping Use: Currently Using Second Hand Smoke Exposure: No Use of substances other than those prescribed or required for medical reasons: No Substance Use Type: Heroin Advance Directives: No Advance Directives Information Provided: No Advance Directives Date on File: 12/26/20 service: No (hx on methadone) Current occupational status: disabled Physical Exam Vital Signs: Vital Signs: Last Vital Signs Temp 99.3 F 06/04/21 22:54 Pulse 68 06/04/21 22:54 Resp 20 06/04/21 22:54 BP 160/58 H 06/04/21 22:54 Pulse Ox 97 06/04/21 22:52 Body Mass Index 29.2 Appearance: Alert. Oriented X3. No acute distress. Head: Normal external exam. Normocephalic. Atraumatic. No Amys signs noted. No raccoon eyes noted Eyes: Bilateral glaucoma. Conjunctiva and sclera normal. Eyelids normal. ENT: TM's Normal. Pharynx normal. Uvula midline. Moist mucous membranes. No trismus noted. No drooling noted. No muffled voice noted. Neck: Normal inspection. Neck supple. No adenopathy. No meningeal signs. No ne ck mass noted. No vertebral tenderness or step-offs. CVS: Normal heart rate and rhythm. Heart sound normal. No murmurs noted. Pulses equal to all extremities. Respiratory: No respiratory distress. Painless inspiration. Breath sounds normal. No wheezes/rales/rhonchi noted. Chest nontender. No accessory muscle usage noted or decreased air movement noted. Abdomen: Soft and nontender. Bowel sounds normal in all 4 quadrants. No distention noted. No organomegaly noted. No visible injury noted. Back: No CVA tenderness. Full range of motion noted. Skin: Skin warm and dry. Normal skin color. Normal skin turgor. No rashes/lesions/lacerations noted. Extremities: No lower extremity edema. Extremities exhibit normal range of motion. Left upper extremity tender with edema. Right lower extremity with orthotic boot. Neuro: cranial nerves 2-12 intact, no focal neural deficits, strength 5/5 to all extremities, No motor deficit. No sensory deficit. NIH Stroke Scale Internal: Initial- Upon Arrival Level of Consciousness: Alert Level of Consciousness Questions: Answers both questions correctly Level of Consciousness Commands: Performs both tasks correctly Best Gaze: Normal Visual: No visual loss Facial Palsy: Normal Motor Arm (Right): No drift Motor Arm (Left): No drift Motor Leg (Right): No drift Motor Leg (Left): No drift Limb Ataxia: Absent Sensory: Normal Best Language: No aphasia Dysarthia: Normal Extinction and Inattention: No abnormality Score: 0 Course Course Course Narrative: 61-year-old female presents with left upper extremity pain and swelling as well as changes in vision for approximately [address] angio and neck and duplex of the left upper extremity. Patient was evaluated on 05/23/2021, patient stated that symptoms have progressively worsened since then. Left eye is cloudy and occluded per baseline, legally blind to that side. There is some pitting edema to the left upper extremity and decreased range of motion secondary to swelling. Decreased adduction and abduction secondary to pain. Able to flex and extend without difficulty. Patient was eating upon my assessment. She was advised to stop eating, became visibly upset and started crying. Emotional support was provided. Patient did understand that if she ate further that could delay her care. Blood consent completed. Left eye tonometry 42, right eye 14. Left eye in known to have blindness, cataract and glaucoma. 11:23 p.m. multiple discussions with hospitalist, patient's conditions are chronic with the exception left extremity swelling and pain. Do not feel that the patient is well enough to be discharged home, I will order case Management dialysis social worker for possible placement. 1:27 p.m. case management pending. Physician observation started this time. Sign-out to Dr. Cannon. Consultations Consultation #1: Yisel Time: 23:24 Medical Decision Making Differential Diagnosis Differential Diagnosis: CVA, DVT Medical Records Medical records reviewed: Yes I reviewed the patient's medical records. Lab Data Lab results reviewed: Yes I reviewed the patient's lab results. Result diagrams: 06/04/21 17:30 06/04/21 17:30 Labs: Lab Results 06/04/21 06/04/21 06/04/21 Range/Units 16:33 17:30 17:30 WBC 14.8 H (4.8-10.8) X10*3/uL RBC 2.90 L (4.20-5.50) X10*6/uL Hgb 7.2 L (12.0-16.0) g/dl Hct 24.3 L (37.0-47.0) % MCV 83.8 (80.0-98.0) fL MCH 24.8 L (27.0-33.0) pg MCHC 29.6 L (31.0-35.0) g/dl RDW 15.2 (11.0-16.0) % Plt Count 499 H (160-400) X10*3/uL MPV 10.3 (9.4-12.3) fL Immature Gran % (Auto) 1.1 H (0.0-0.4) % Neut % (Auto) 77.9 H (45-73) % Lymph % (Auto) 15.3 L (20-40) % Louisa % (Auto) 5.3 (2-11) % Eos % (Auto) 0.3 (0-4) % Baso % (Auto) 0.1 (0-2) % Lymph # (Auto) 2.3 (1.2-4.9) X10*3/uL [place] # (Auto) 0.8 (0.1-1.2) X10*3/uL Eos # (Auto) 0.0 (0.0-0.4) X10*3/uL Baso # (Auto) 0.0 (0.0-0.2) X10*3/uL Abs Immat Gran (auto) 0.16 H (0.00-0.03) X10*3/uL Absolute Neuts (auto) 11.6 H (2.0-8.3) x10*3/uL Absolute Nucleated RBC 0.000 (0.0-0.012) X10*3/uL Nucleated RBC % (auto) 0.0 (0.0-0.2) /100WBC PT 12.8 (9.9-13.0) SEC INR 1.1 (0.9-1.1) APTT 29.4 (24.1-38.0) SEC Sodium (135-145) mmol/L Potassium (3.3-5.1) mmol/L Chloride (96-108) mmol/L Carbon Dioxide (22-29) mmol/L Anion Gap (12-20) BUN (9-16) mg/dL Creatinine (0.5-1.4) mg/dL Estim Creat Clear Calc Estimated GFR POC Glucose 248 H (60-115) mg/dL Random Glucose (60-115) mg/dL Calcium (8.4-10.2) mg/dL Ferritin (10-250) ng/mL Total Bilirubin (0.0-1.0) mg/dL Direct Bilirubin (0.0-0.5) mg/dL AST (5-31) U/L ALT (0-31) U/L Alkaline Phosphatase (39-117) U/L Troponin I High Sens (<3.5-17.0) ng/L Total Protein (6.5-8.0) g/dL Albumin (3.5-5.0) g/dL Lipase (8-78) U/L Vitamin B12 (200-900) pg/mL Folate (> or = 4.0) ng/mL Urine Color Urine Appearance Urine pH (5.0-8.0) Ur Specific [place] (1.005-1.025) Urine Protein (NEG-TRACE) MG/DL Urine Glucose (UA) (NEG) MG/DL Urine Ketones (NEG) MG/DL Urine Blood (NEG) Urine Nitrite (NEG) Ur Leukocyte Esterase (NEG) Stool Occult Blood (NEGATIVE) COVID-19 (SONG) (Negative) COVID-19 Clin Com Blood Type Antibody Screen Crossmatch 06/04/21 06/04/21 06/04/21 Range/Units 17:30 17:30 17:34 WBC (4.8-10.8) X10*3/uL RBC (4.20-5.50) X10*6/uL Hgb (12.0-16.0) g/dl Hct (37.0-47.0) % MCV (80.0-98.0) fL MCH (27.0-33.0) pg MCHC (31.0-35.0) g/dl RDW (11.0-16.0) % Plt Count (160-400) X10*3/uL MPV (9.4-12.3) fL Immature Gran % (Auto) (0.0-0.4) % Neut % (Auto) (45-73) % Lymph % (Auto) (20-40) % Louisa % (Auto) (2-11) % Eos % (Auto) (0-4) % Baso % (Auto) (0-2) % Lymph # (Auto) (1.2-4.9) X10*3/uL [place] # (Auto) (0.1-1.2) X10*3/uL Eos # (Auto) (0.0-0.4) X10*3/uL Baso # (Auto) (0.0-0.2) X10*3/uL Abs Immat Gran (auto) (0.00-0.03) X10*3/uL Absolute Neuts (auto) (2.0-8.3) x10*3/uL Absolute Nucleated RBC (0.0-0.012) X10*3/uL Nucleated RBC % (auto) (0.0-0.2) /100WBC PT (9.9-13.0) SEC INR (0.9-1.1) APTT (24.1-38.0) SEC Sodium 136 (135-145) mmol/L Potassium 4.4 D (3.3-5.1) mmol/L Chloride 94 L (96-108) mmol/L Carbon Dioxide 35 H (22-29) mmol/L Anion Gap 11 L (12-20) BUN 10 D (9-16) mg/dL Creatinine 0.76 (0.5-1.4) mg/dL Estim Creat Clear Calc 64.1 Estimated GFR > 60 POC Glucose (60-115) mg/dL Random Glucose 259 H (60-115) mg/dL Calcium 8.6 (8.4-10.2) mg/dL Ferritin 405 H (10-250) ng/mL Total Bilirubin < 0.2 (0.0-1.0) mg/dL Direct Bilirubin < 0.2 (0.0-0.5) mg/dL AST 11 (5-31) U/L ALT 6 (0-31) U/L Alkaline Phosphatase 132 H (39-117) U/L Troponin I High Sens < 3.5 D (<3.5-17.0) ng/L Total Protein 7.8 (6.5-8.0) g/dL Albumin 2.4 L D (3.5-5.0) g/dL Lipase 8 (8-78) U/L Vitamin B12 246 (200-900) pg/mL Folate 8.2 (> or = 4.0) ng/mL Urine Color Urine Appearance Urine pH (5.0-8.0) Ur Specific [place] (1.005-1.025) Urine Protein (NEG-TRACE) MG/DL Urine Glucose (UA) (NEG) MG/DL Urine Ketones (NEG) MG/DL Urine Blood (NEG) Urine Nitrite (NEG) Ur Leukocyte Esterase (NEG) Stool Occult Blood (NEGATIVE) COVID-19 (SONG) (Negative) COVID-19 Clin Com Blood Type Antibody Screen Crossmatch 06/04/21 06/04/21 06/04/21 Range/Units 19:03 19:03 19:03 WBC (4.8-10.8) X10*3/uL RBC (4.20-5.50) X10*6/uL Hgb (12.0-16.0) g/dl Hct (37.0-47.0) % MCV (80.0-98.0) fL MCH (27.0-33.0) pg MCHC (31.0-35.0) g/dl RDW (11.0-16.0) % Plt Count (160-400) X10*3/uL MPV (9.4-12.3) fL Immature Gran % (Auto) (0.0-0.4) % Neut % (Auto) (45-73) % Lymph % (Auto) (20-40) % Louisa % (Auto) (2-11) % Eos % (Auto) (0-4) % Baso % (Auto) (0-2) % Lymph # (Auto) (1.2-4.9) X10*3/uL [place] # (Auto) (0.1-1.2) X10*3/uL Eos # (Auto) (0.0-0.4) X10*3/uL Baso # (Auto) (0.0-0.2) X10*3/uL Abs Immat Gran (auto) (0.00-0.03) X10*3/uL Absolute Neuts (auto) (2.0-8.3) x10*3/uL Absolute Nucleated RBC (0.0-0.012) X10*3/uL Nucleated RBC % (auto) (0.0-0.2) /100WBC PT (9.9-13.0) SEC INR (0.9-1.1) APTT (24.1-38.0) SEC Sodium (135-145) mmol/L Potassium (3.3-5.1) mmol/L Chloride (96-108) mmol/L Carbon Dioxide (22-29) mmol/L Anion Gap (12-20) BUN (9-16) mg/dL Creatinine (0.5-1.4) mg/dL Estim Creat Clear Calc Estimated GFR POC Glucose (60-115) mg/dL Random Glucose (60-115) mg/dL Calcium (8.4-10.2) mg/dL Ferritin (10-250) ng/mL Total Bilirubin (0.0-1.0) mg/dL Direct Bilirubin (0.0-0.5) mg/dL AST (5-31) U/L ALT (0-31) U/L Alkaline Phosphatase (39-117) U/L Troponin I High Sens (<3.5-17.0) ng/L Total Protein (6.5-8.0) g/dL Albumin (3.5-5.0) g/dL Lipase (8-78) U/L Vitamin B12 (200-900) pg/mL Folate (> or = 4.0) ng/mL Urine Color YELLOW Urine Appearance CLEAR Urine pH 5.5 (5.0-8.0) Ur Specific [place] 1.025 (1.005-1.025) Urine Protein TRACE (NEG-TRACE) MG/DL Urine Glucose (UA) 250 H (NEG) MG/DL Urine Ketones NEG (NEG) MG/DL Urine Blood NEG (NEG) Urine Nitrite NEG (NEG) Ur Leukocyte Esterase NEG (NEG) Stool Occult Blood (NEGATIVE) COVID-19 (SONG) Negative (Negative) COVID-19 Clin Com See Note Blood Type O Positive Antibody Screen NEGATIVE Crossmatch See Detail 06/04/21 Range/Units 19:28 WBC (4.8-10.8) X10*3/uL RBC (4.20-5.50) X10*6/uL Hgb (12.0-16.0) g/dl Hct (37.0-47.0) % MCV (80.0-98.0) fL MCH (27.0-33.0) pg MCHC (31.0-35.0) g/dl RDW (11.0-16.0) % Plt Count (160-400) X10*3/uL MPV (9.4-12.3) fL Immature Gran % (Auto) (0.0-0.4) % Neut % (Auto) (45-73) % Lymph % (Auto) (20-40) % Louis[place] % (Auto) (2-11) % Eos % (Auto) (0-4) % Baso % (Auto) (0-2) % Lymph # (Auto) (1.2-4.9) X10*3/uL [place] # (Auto) (0.1-1.2) X10*3/uL Eos # (Auto) (0.0-0.4) X10*3/uL Baso # (Auto) (0.0-0.2) X10*3/uL Abs Immat Gran (auto) (0.00-0.03) X10*3/uL Absolute Neuts (auto) (2.0-8.3) x10*3/uL Absolute Nucleated RBC (0.0-0.012) X10*3/uL Nucleated RBC % (auto) (0.0-0.2) /100WBC PT (9.9-13.0) SEC INR (0.9-1.1) APTT (24.1-38.0) SEC Sodium (135-145) mmol/L Potassium (3.3-5.1) mmol/L Chloride (96-108) mmol/L Carbon Dioxide (22-29) mmol/L Anion Gap (12-20) BUN (9-16) mg/dL Creatinine (0.5-1.4) mg/dL Estim Creat Clear Calc Estimated GFR POC Glucose (60-115) mg/dL Random Glucose (60-115) mg/dL Calcium (8.4-10.2) mg/dL Ferritin (10-250) ng/mL Total Bilirubin (0.0-1.0) mg/dL Direct Bilirubin (0.0-0.5) mg/dL AST (5-31) U/L ALT (0-31) U/L Alkaline Phosphatase (39-117) U/L Troponin I High Sens (<3.5-17.0) ng/L Total Protein (6.5-8.0) g/dL Albumin (3.5-5.0) g/dL Lipase (8-78) U/L Vitamin B12 (200-900) pg/mL Folate (> or = 4.0) ng/mL Urine Color Urine Appearance Urine pH (5.0-8.0) Ur Specific [place] (1.005-1.025) Urine Protein (NEG-TRACE) MG/DL Urine Glucose (UA) (NEG) MG/DL Urine Ketones (NEG) MG/DL Urine Blood (NEG) Urine Nitrite (NEG) Ur Leukocyte Esterase (NEG) Stool Occult Blood NEGATIVE (NEGATIVE) COVID-19 (SONG) (Negative) COVID-19 Clin Com Blood Type Antibody Screen Crossmatch Imaging Data Left upper venous duplex: Attestation: I personally reviewed and interpreted this imaging study as follows: Radiologist's impression: EXAMINATION:? US VENOUS WITH DOPPLER UPPER EXTREMITY, LEFT CLINICAL INFORMATION:? Left upper extremity swelling and edema COMPARISON:? None TECHNIQUE: Ultrasound of the upper extremity is performed using compression sonography and color and pulse Doppler flow with assessment of augmentation of flow. There is also imaging and Doppler assessment of the jugular and subclavian veins. Spectral analysis with color-flow imaging is performed. FINDINGS: Respiratory variation, normal compression, and augmented flow are noted throughout the upper extremity including the axillary (not optimally seen), brachial, cubital, and radial and ulnar veins. There is normal flow in the internal jugular and subclavian veins. There is no visible deep or superficial thrombophlebitis. If the patient's symptoms progress, a followup ultrasound in 5 -7 days might be of value to exclude proximal propagation from a nonvisualized distal arm vein. US/US venous duplex UE LT IMPRESSION: No DVT demonstrated in the left upper extremity CTA head neck: Attestation: I personally reviewed and interpreted this imaging study as follows: Radiologist's impression: FINDINGS: CT Head: There is no evidence of acute intracranial hemorrhage or edematous territorial infarction. Scattered hypoattenuation in the periventricular and deep white matter are consistent with moderate microangiopathy. Bustos-white matter differentiation is preserved. Potential absence of the septum pellucidum. Proportional prominence of the ventricles and sulcal spaces. No evidence for obstructive hydrocephalus. No abnormal mass effect or midline shift. No extra-axial fluid collections. No pathologic intra-axial enhancement or regional oligemia. No acute soft tissue or osseous abnormalities. Mild mucosal thickening of the paranasal sinuses. The mastoid air cells and middle ear cavities are clear. The patient is edentulous. Left-sided scleral banding. There is elongation of the left globe. Bilateral lens extractions. CT Neck: The thyroid gland and remaining cervical soft tissues are within normal limits. Moderate degenerative disc disease from C3-T3 with disc-osteophyte complex formation. Facet and uncovertebral joint arthropathy leads to osseous encroachment on the neural foramina from C5-T1. CT Upper Chest: Mosaic attenuation pattern of the visualized upper lungs. Coronary artery calcifications. The visualized lung apices and upper mediastinum are within normal limits. Neck CTA: Aortic Arch: Normal contour and caliber with mild calcific atherosclerotic disease. Variant three vessel branching pattern with the left common carotid artery arising from the previous trunk and the left vertebral artery arising directly from the arch between the left common carotid and left subclavian arteries. Great Vessel Origins: No significant stenosis of the branch origins. Right Common Carotid Artery: No focal stenosis or occlusion. Cervical Right Internal Carotid Artery: Atherosclerotic disease of the carotid bulb and proximal internal carotid artery causing less than 50% stenosis. Left Common Carotid Artery: No focal stenosis or occlusion. Cervical Left Internal Carotid Artery: Mild calcific atherosclerotic disease of the carotid bulb and proximal internal carotid artery without flow-limiting stenosis. Cervical Right Vertebral Artery: Mildly dominant. Atherosclerotic disease causes moderate stenosis of the origin. No additional focal stenosis or occlusion. Cervical Left Vertebral Artery: No focal stenosis or occlusion. Brain CTA: Intracranial Internal Carotid Arteries: Heavy calcific atherosclerotic disease of the intracranial internal carotid arteries without occlusion.. There is moderate stenosis of the paraophthalmic segment of the right ICA. Normal opacification of the bilateral proximal segments of the ophthalmic arteries. Right Anterior Cerebral Artery: Normal A1 segment. Normal opacification of the distal MARY segments. Left Anterior Cerebral Artery: Normal A1 segment. Normal opacification of the distal MARY segments. Anterior Communicating Artery: Normal. Right Middle Cerebral Artery: Normal M1 segment of the MCA without focal stenosis or occlusion. Normal arborization of the distal segments. Left Middle Cerebral Artery: Normal M1 segment of the MCA without focal stenosis or occlusion. Normal arborization of the distal segments. Right Vertebral Artery: Normal V4 segment. Normal opacification of the proximal segments of the posterior inferior cerebellar artery. Left Vertebral Artery: Normal V4 segment. Normal opacification of the proximal segments of the posterior inferior cerebellar artery. Basilar Artery: Normal without focal stenosis or occlusion. Normal appearance of the proximal superior cerebellar arteries. Right Posterior Cerebral Artery: Normal P1 segment. Normal opacification of the distal [employer] segments. Left Posterior Cerebral Artery: Normal P1 segment. Normal opacification of the distal [employer]OR segments. Normal opacification of the superior sagittal, straight, transverse, and sigmoid sinuses. CT/CT angio head neck IMPRESSION: 1. No evidence of acute intracranial hemorrhage or edematous territorial infarction. Moderate underlying microangiopathy and generalized cerebral volume loss. ? 2. CTA of the head and neck without proximal occlusion. Calcific atherosclerotic disease causes moderate stenosis of the paraophthalmic segment of the right ICA. No additional flow-limiting stenoses. ? 3. Moderate multilevel degenerative spondyloarthropathy of the cervical spine. CT chest abdomen: Attestation: I personally reviewed and interpreted this imaging study as follows: Radiologist's impression: FINDINGS: CHEST: LUNGS: There is some residual interstitial thickening and groundglass opacities in a peribronchovascular distribution throughout both lungs, significantly improved since the prior study. There is some atelectasis versus scarring in the medial left lung base in the lower right upper lobe, and in the lingula. No suspicious nodule or mass. The central airways are patent.? MEDIASTINUM: Normal thyroid gland. No significant mediastinal or hilar lymphadenopathy. Normal heart size. Scattered coronary calcifications. Normal caliber of the thoracic aorta with scattered atherosclerotic calcifications.? PLEURA: There is no pleural effusion. No pleural mass or thickening.? AXILLA: No lymphadenopathy.? ABDOMEN AND PELVIS: LIVER, GALLBLADDER, AND BILIARY TREE: The liver is normal in size, shape, and attenuation. No focal hepatic lesion or biliary ductal dilatation is present. The gallbladder is surgically absent.? PANCREAS: There is fatty atrophy of the pancreas. No focal lesion.? SPLEEN: Unremarkable.? ADRENAL GLANDS: Unremarkable.? KIDNEYS AND URETERS: The kidneys are normal in size, shape, and attenuation. No hydronephrosis, hydroureter, or calculi seen. No perinephric stranding. There is residual contrast from the earlier CT angiogram of the head and neck within the bilateral renal collecting systems and the bladder.? BLADDER: Unremarkable.? GASTROINTESTINAL TRACT: Stomach and small bowel are not dilated. No evidence of obstruction. No pericolonic inflammatory change. Normal appendix.? ABDOMINAL WALL: No significant hernia is appreciated.? LYMPH NODES: Normal. VASCULAR: Normal caliber of the abdominal aorta. Moderate atherosclerotic calcifications. PELVIC VISCERA: Unremarkable. OSSEOUS STRUCTURES: No acute or suspicious osseous abnormality. Multilevel degenerative changes of the spine.? CT/CT chest wo con IMPRESSION: ? 1. Residual interstitial thickening and groundglass opacities throughout both lungs, in a peribronchovascular distribution, may represent residuum of prior infection or inflammation. 2. No acute intra-abdominal or intrapelvic pathology. No bowel obstruction or focal inflammatory change. 3. No evidence of intraperitoneal or retroperitoneal hemorrhage. ? Arterial duplex: Attestation: I personally reviewed and interpreted this imaging study as follows: Radiologist's impression: EXAMINATION: NONINVASIVE ASSESSMENT OF THE ARTERIES OF THE LEFT UPPER EXTREMITY Cory Mott MD CLINICAL INFORMATION: Arm swelling and pain TECHNIQUE: Doppler exam of the extremities of the was performed. Velocity measurements and color flow Doppler imaging were performed in the subclavian arteries, axillary arteries, brachial arteries radial artery and ulnar artery. COMPARISON: CTA neck 06/04/2021 FINDINGS: Left upper extremity: Plaque is present in the left subclavian artery and and only a small lumen is seen. However, on the CTA performed earlier, a milder area of stenosis was present in the ultrasound which suggest. Other than plaque in the subclavian, minimal plaque is seen and multiphasic flow is noted throughout entire left upper extremity. Below, velocities are reported in cm per second along with wave form. Proximal subclavian: 172 triphasic Mid subclavian: 144 triphasic Distal subclavian: 123 triphasic Axillary artery: 147 biphasic Brachial artery proximal: 147 biphasic Brachial artery mid: 118 biphasic Brachial artery distal: 136 triphasic Radial artery mid: 87 biphasic Ulnar artery mid: 92 triphasic US/US arterial duplex UE LT IMPRESSION: A stenosis is present in the proximal left subclavian with narrowing of the lumen best demonstrated on the CTA neck performed earlier in the evening. Critical stenosis is not seen and no significant disease is seen elsewhere in the left upper extremity. ECG Data Attestation: I personally reviewed and interpreted this ECG as follows: Prior ECG tracings: available for review Interpretation: Vent. rate 68 BPM RI interval 128 ms QRS duration 86 ms QT/QTc 454/482 ms P-R-T axes 22 6 19 Normal sinus rhythm Normal ECG When compared with ECG of 12-JAN-2021 11:26, T wave inversion no longer evident in Jason lateral leads Critical Care Time Critical Care Time Critical Care Time: Yes Total Critical Care Time: 65 Attestation: I have personally provided critical care time exclusive of time spent on separately billable procedures. Time includes review of laboratory data, radiology results, discussion with consultants, and monitoring for potential decompensation. Interventions were performed as documented. Discharge Plan Discharge Clinical Impression: COPD (chronic obstructive pulmonary disease) Qualifiers: COPD type: unspecified COPD Qualified Code(s): J44.9 - Chronic obstructive pulmonary disease, unspecified Anemia Qualifiers: Anemia type: due to chronic kidney disease Chronic kidney disease stage: unsp ecified stage Qualified Code(s): N18.9 - Chronic kidney disease, unspecified Instructions: COPD (Chronic Obstructive Pulmonary Disease) (ED), Anemia (ED) Prescriptions: No [facility] (DME) walker Misc See Rx Instructions .ROUTE .MEDSUPPLY Qty: 1 RF: 0 Flovent HFA 110 mcg/actuation Hfa Aerosol Inhaler 2 puff INHALATION BID RF: 0 methadone [Methadone Intensol] 10 mg/mL Concentrate 95 mg DAILY RF: 0 insulin aspart U-100 [Novolog Flexpen U-100 Insulin] 100 unit/mL (3 mL) insulin pen See Rx Instructions .ROUTE .COMPLEX RF: 0 Tresiba FlexTouch U-100 100 unit/mL (3 mL) insulin pen 40 unit subcut DAILY RF: 0 gabapentin 600 mg tablet 600 mg PO TID RF: 0 (DME) lancets 33 gauge misc See Rx Instructions ea Not Applicable TID Qty: 100 RF: 0 cholecalciferol (vitamin D3) 50 mcg (2,000 unit) tablet 50 mcg PO DAILY RF: 0 albuterol sulfate 90 mcg/actuation HFA aerosol inhaler 2 puff PO Q4H PRN (Reason: Respiratory Distress) RF: 0 furosemide 20 mg tablet 20 mg PO QAM RF: 0 lisinopril 10 mg tablet 10 mg PO DAILY RF: 0 omeprazole 20 mg capsule,delayed release(DR/EC) 20 mg PO DAILY RF: 0 metformin 1,000 mg tablet 1,000 mg PO BIDWMEAL RF: 0 aspirin 81 mg tablet,delayed release (DR/EC) 81 mg PO DAILY RF: 0 bupropion HCl 150 mg tablet sustained-release 12 hr 150 mg PO BID RF: 0 atorvastatin 40 mg tablet 40 mg PO DAILY RF: 0
--- NOTE | 2021-06-04 16:19 | ECG_ITS ---
Test Reason : general Blood Pressure : / mmHG Vent. Rate : 068 BPM Atrial Rate : 068 BPM P-R Int : 128 ms QRS Dur : 086 ms QT Int : 472 ms P-R-T Axes : 022 006 019 degrees QTc Int : 502 ms Normal sinus rhythm Prolonged QT interval Abnormal EKG When compared with ECG of 12-JAN-2021 11:26, T wave inversion no longer evident in Anterolateral leads Referred By: Oxana Howell Electronically Signed By:CATRACHITO NUNEZ
[2021-06-04 16:37] LABS: Glucose, Whole Blood 248 mg/dL (60-115)
--- NOTE | 2021-06-04 16:57 | PC.NURSE ---
Pt assissted to change into jphnny at arrival to bed. LUE is swollen, cap refill is sluggish, palpable but weak radial pulse. no active ROM.
--- NOTE | 2021-06-04 17:27 | PC.NURSE ---
c/o blackness in vision o right eye. pupil is reactive . this rn will consult MD. left eye is hazy with glaucoma.
[2021-06-04 17:37] LABS: MANUAL DIFF FLAG NO
[2021-06-04 17:40] LABS: Basophils Percent Auto 0.1 % (0-2); Eosinophils Percent Auto 0.3 % (0-4); Hematocrit 24.3 % (37.0-47.0); Hemoglobin 7.2 g/dl (12.0-16.0); Imm Gran Abs Auto 0.16 X10*3/uL (0.00-0.03); Imm Gran Pct Auto 1.1 % (0.0-0.4); Lymphocytes Absolute Auto 2.3 X10*3/uL (1.2-4.9); Lymphocytes Percent Auto 15.3 % (20-40); Mean Corpuscular HGB Conc 29.6 g/dl (31.0-35.0); Mean Corpuscular Hemoglobin 24.8 pg (27.0-33.0); Mean Corpuscular Volume 83.8 fL (80.0-98.0); Mean Platelet Volume 10.3 fL (9.4-12.3); Monocytes Absolute Auto 0.8 X10*3/uL (0.1-1.2); Monocytes Percent Auto 5.3 % (2-11); Neutrophils Absolute Auto 11.6 x10*3/uL (2.0-8.3); Neutrophils Percent Auto 77.9 % (45-73); Platelet Count 499 X10*3/uL (160-400); Red Cell Distribution Width 15.2 % (11.0-16.0); White Blood Count 14.8 X10*3/uL (4.8-10.8)
[2021-06-04 17:42] LABS: INTERNATIONAL NORM RATIO 1.1 (0.9-1.1); Prothrombin Time 12.8 SEC (9.9-13.0)
[2021-06-04 17:45] LABS: Partial Thromboplastin Time 29.4 SEC (24.1-38.0)
--- NOTE | 2021-06-04 17:54 | PC.NURSE ---
update to on phone. Mr Driscoll [phone]
[2021-06-04 18:03] LABS: Alanine Aminotransferase 6 U/L (0-31); Albumin Level 2.4 g/dL (3.5-5.0); Alkaline Phosphatase 132 U/L (39-117); Anion Gap 11 (12-20); Aspartate Amino Transferase 11 U/L (5-31); Bilirubin Direct < 0.2 mg/dL (0.0-0.5); Bilirubin Total < 0.2 mg/dL (0.0-1.0); Blood Urea Nitrogen 10 mg/dL (9-16); Calcium 8.6 mg/dL (8.4-10.2); Carbon Dioxide 35 mmol/L (22-29); Chloride 94 mmol/L (96-108); Creatinine Clr Calc Pharmacy 64.1; Estimated Glomerular Filt Rate > 60; Glucose Random 259 mg/dL (60-115); Lipase 8 U/L (8-78); Potassium 4.4 mmol/L (3.3-5.1); Sodium 136 mmol/L (135-145); Total Protein 7.8 g/dL (6.5-8.0)
[2021-06-04 18:04] LABS: Troponin-I High Sensitivity < 3.5 ng/L (<3.5-17.0)
[2021-06-04] MEDS: iohexoL 350 MG/ML 100 ML INFUS..BTL IV (18:44)
--- NOTE | 2021-06-04 18:55 | PC.NURSE ---
PATIENT WAS ASSISTED ON BED [place] BY THIS PCT .
[2021-06-04 19:18] LABS: Appearance Urine CLEAR; Color Urine YELLOW; Glucose Urine UA 250 MG/DL (NEG); Leukocyte Esterase Urine NEG (NEG); Nitrite Urine NEG (NEG); PH 5.5 (5.0-8.0); Specific Gravity - Urine 1.025 (1.005-1.025); Urine Blood NEG (NEG); Urine Ketones NEG (NEG); Urine Protein TRACE MG/DL (NEG-TRACE)
--- NOTE | 2021-06-04 19:25 | PC.NURSE ---
message left to update . rings were cut off and are in patient's belonging bag.
--- NOTE | 2021-06-04 19:25 | PHA.MEDREC ---
Pharmacy Consult ? Medication Reconciliation Pharmacy has completed the medication reconciliation.
[2021-06-04 19:33] LABS: COVID-19 Test Negative (Negative); IDNOW Serial# 08D9AD1C
[2021-06-04 19:37] LABS: OBS1 NEGATIVE (NEGATIVE)
[2021-06-04 19:38] LABS: OBS Int Ctl Valid YES
[2021-06-04 21:04] LABS: Ferritin 405 ng/mL (10-250)
[2021-06-04 22:07] LABS: Folate 8.2 ng/mL (> or = 4.0); Vitamin B12 246 pg/mL (200-900)
[2021-06-04] MEDS: Morphine Sulfate 2 MG/ML CARTRIDGE IVPUSH (23:39)
[2021-06-05] VITALS (9 sets, daily range): BP systolic 128–150; BP diastolic 55–60; PULSE 55–73; RESP 12–20; TEMP 36.8–36.9; O2SAT 94–99
--- NOTE | 2021-06-05 03:35 | PC.NURSE ---
pt sleeping and repositioned or comfort. Will continue to monitor. no sign of distress at this time.
[2021-06-05] MEDS: oxyCODONE HCl Immed Release 5 MG TABLET PO (07:30)
[2021-06-05] MEDS: Acetaminophen 325 MG TABLET 650 MG PO (07:30)
[2021-06-05 07:38] LABS: Glucose, Whole Blood 119 mg/dL (60-115)
[2021-06-05] MEDS: Fluticasone Propionate 100 MCG BLST.W.DEV 2 PUFF INHALE ×2 (08:01→20:29)
[2021-06-05] MEDS: Aspirin Enteric Coated 81 MG TABLET.DR PO (08:30)
[2021-06-05] MEDS: Cholecalciferol (Vitamin D3) 25 MCG TABLET 50 MCG PO (08:30)
[2021-06-05] MEDS: lisinopriL 10 MG TABLET PO (08:31)
[2021-06-05] MEDS: Omeprazole 20 MG CAPSULE.DR PO (08:31)
[2021-06-05] MEDS: Atorvastatin Calcium 40 MG TABLET PO (08:31)
[2021-06-05] MEDS: Gabapentin 600 MG TABLET PO ×3 (08:31→20:29)
[2021-06-05] MEDS: Furosemide 20 MG TABLET PO (08:31)
[2021-06-05] MEDS: metFORMIN HCl 1,000 MG TABLET 1000 MG PO ×2 (08:31→18:24)
[2021-06-05] MEDS: methADONE HCl 20 MG/2 ML ORAL.CONC 95 MG PO (08:31)
[2021-06-05] MEDS: Insulin Glargine,Hum.rec.anlog 100 UNIT/ML 10 ML VIAL 32 UNIT SUBCUT (08:31)
[2021-06-05] MEDS: buPROPion HCl XL 300 MG TAB.ER.24H PO (08:59)
--- NOTE | 2021-06-05 11:15 | MHC.CM.ED ---
Received case management consult overnight. Patient came to ER due to arm pain. Work up essentially negative. Physical therapy eval completed. Short term rehab is recommended. Met with patient in regards to discharge planning. Patient lives in an apartment with her , uses walker/cane for mobility and is active with [facility] in [place] for Methadone. PCP verified. Copy of HCP verified to be on file. Patient received J&J vaccine on 10/13/20. Patient understands short term rehab is needed and that placement may be difficult due to Methadone. Patient agreeable to referral being broadcasted. Referral broadcasted in [employer]. Continue to monitor for d/c needs.
[2021-06-05 12:14] LABS: Glucose, Whole Blood 225 mg/dL (60-115)
--- NOTE | 2021-06-05 12:57 | MHC.RECOVSUP ---
Recovery Support note: Patient is a 61 year old Malawian speaking female who presented to [facility] ED on 06/04 due to shoulder pain, eye pain and vision issues. This remote mortgage underwriter met with patient to discuss substance use and mental health. Patient reports she has been on methadone for about two years and that it has been helpful to her recovery. Patient reports no recent heroin use. Patient denies mental health concerns at this time. Patient reports some feelings of depression, stating her daughter this month last year. Patient reports she finds it helpful to discuss these feelings with her family. Patient reports no anxiety. Patient denies SI/HI/AH/VH at this time. Discussed case with patient's senior case manager.
[2021-06-05] MEDS: Insulin Lispro 100 UNIT/ML 3 ML VIAL SUBCUT ×3 (13:35→21:00)
--- NOTE | 2021-06-05 15:22 | MHC.CM.ED ---
[facility] and [facility] are able to offer a bed. [facility] is patient's first choice. Due to methadone, patient will need an exemption letter from [facility]. Information already submitted to [facility]. Continue to monitor for d/c needs.
[2021-06-05 17:04] LABS: Glucose, Whole Blood 173 mg/dL (60-115)
[2021-06-05 20:35] LABS: Glucose, Whole Blood 213 mg/dL (60-115)
[2021-06-06 02:00] VITALS: BP 128/62; PULSE 72; RESP 20; O2SAT 98
[2021-06-06 06:11] VITALS: BP 133/58; PULSE 68; RESP 16; O2SAT 96
[2021-06-06 07:41] LABS: Glucose, Whole Blood 85 mg/dL (60-115)
[2021-06-06] MEDS: Fluticasone Propionate 100 MCG BLST.W.DEV 2 PUFF INHALE (07:45)
[2021-06-06 07:46] VITALS: PULSE 72; O2SAT 99
--- NOTE | 2021-06-06 08:26 | MHC.CM.ED ---
Patient remains in ER. Waiting for [facility] letter. T/W left voicemail at [facility] inquiring about letter. Continue to monitor for d/c needs.
--- NOTE | 2021-06-06 08:50 | MHC.CM.ED ---
[facility]RR letter obtained. Waiting to hear from [facility] if they are able to offer a bed. Continue to monitor for d/c needs.
[2021-06-06] MEDS: buPROPion HCl XL 300 MG TAB.ER.24H PO (09:00)
[2021-06-06] MEDS: Aspirin Enteric Coated 81 MG TABLET.DR PO (09:00)
[2021-06-06] MEDS: metFORMIN HCl 1,000 MG TABLET 1000 MG PO (09:00)
[2021-06-06] MEDS: Cholecalciferol (Vitamin D3) 25 MCG TABLET 50 MCG PO (09:00)
[2021-06-06] MEDS: Furosemide 20 MG TABLET PO (09:00)
[2021-06-06] MEDS: Gabapentin 600 MG TABLET PO (09:00)
[2021-06-06 09:01] VITALS: BP 134/63; PULSE 72
[2021-06-06] MEDS: Atorvastatin Calcium 40 MG TABLET PO (09:01)
[2021-06-06] MEDS: methADONE HCl 20 MG/2 ML ORAL.CONC 95 MG PO (09:01)
[2021-06-06] MEDS: Omeprazole 20 MG CAPSULE.DR PO (09:01)
[2021-06-06] MEDS: lisinopriL 10 MG TABLET PO (09:01)
--- NOTE | 2021-06-06 09:19 | PC.NURSE ---
PT FOLLOWED BY CASE MANAGEMENT, LOOKING IN TO PLACEMENT. PT IS STATING SHE HAS BEEN HAVING TROUBLE SEEING SINCE THURSDAY, PROVIDER AWARE. PT AOX3 TOLERATING PO NEEDS BEING MET.
[2021-06-06 11:00] VITALS: BP 142/73; PULSE 72; RESP 18; TEMP 37.1; O2SAT 98
--- NOTE | 2021-06-06 12:02 | PC.NURSE ---
verbal report given to [facility] in [place]
[2021-06-06 12:19] LABS: Glucose, Whole Blood 115 mg/dL (60-115)
--- NOTE | 2021-06-06 12:26 | MHC.CM.ED ---
Received notification that patient's spouse, Ashwin wants to speak to case management. Spoke with Ashwin via telephone at [phone]. Ashwin is very upset patient is going to rehab. He stated my son gets paid to take care of her. My daughter and I help her too. T/W tried to explain patient failed physical therapy and requires short term rehab. Also explained because patient is on Methadone, only rehab choices are [facility] [place] and [facility]. Ashwin stated I drive her to Methadone everyday. T/W tried to explain that [facility] would transport patient back and forth to Methadone. Ashwin concerned patient hasn't seen an eye doctor for her vision problems considering there is an eye doctor across the street. T/W tried to explain that patient's symptoms are chronic and would not require an eye doctor appointment at this time. Ashwin became aggitated via telephone and stated I'm coming in there. I can take care of her. T/W tried to inquire what has changed since patient came in and now that patient has been here for 2 days that she can safely return home. Ashwin unable to verbalize how discharge plan home would be safe. Cyndy MEZA and charge nurse, Marietta kwon.
--- NOTE | 2021-06-06 13:02 | PC.NURSE ---
patient a&o, pt refusing to discharge to rehab facility, is at bedside stating he and his family get paid to take care of her at home and that she needs an operations staff specialist security not a rehab, case management was notified, ems crew was released and is taking patient home
--- NOTE | 2021-06-06 15:21 | MHC.CM.ED ---
Late entry from 1245: Ashwin arrived to ER. Patient agreeable to being discharged home. Ashwin will transport patient home. [facility] and [facility] aware.
== END 2021-06-06 13:12 | disposition home or self-care (01) ==
PROVIDERS: Nurse Practitioner Family; Emergency Provider Emergency Medicine; PCP Family Medicine
DX: J44.9 Chronic obstructive pulmonary disease, unspecified (principal); D63.1 Anemia in chronic kidney disease; E11.22 Type 2 diabetes mellitus with diabetic chronic kidney disease; I13.0 Hypertensive heart and chronic kidney disease with heart failure and stage 1 through stage 4 chronic kidney disease, or unspecified chronic kidney disease; I50.9 Heart failure, unspecified; N18.9 Chronic kidney disease, unspecified; M79.602 Pain in left arm; R60.0 Localized edema; R51.9 Headache, unspecified; Z20.822 Contact with and (suspected) exposure to COVID-19; E78.5 Hyperlipidemia, unspecified; F17.200 Nicotine dependence, unspecified, uncomplicated; Z79.4 Long term (current) use of insulin; Z79.02 Long term (current) use of antithrombotics/antiplatelets; Z79.899 Other long term (current) drug therapy; Z79.82 Long term (current) use of aspirin; Z79.891 Long term (current) use of opiate analgesic; Z86.711 Personal history of pulmonary embolism
CPT/HCPCS: 36415; 36430; 70496; 70498; 71250; 74176; 80048; 80076; 81003; 82272; 82607; 82728; 82746; 82947; 83690; 84484; 85025; 85610; 85730; 86850; 86900; 86901; 86923; 87635; 93005; 93931; 93971; 94640; 96374; 97162; 99285; 99291; J2270; P9016; Q9967

== ENCOUNTER 2021-10-20 11:43 | Emergency (ER) | payer MEDICARE, MEDICAID, SELFPAY ==
--- NOTE | ~2021-10-20 | XR_ITS ---
EXAMINATION: XR SHOULDER, LEFT CLINICAL INFORMATION: Rule out osteomyelitis abscess in the shoulder COMPARISON: 05/23/2021 TECHNIQUE: AP external rotation, Grashey, scapular Y, and axillary views of the left shoulder. FINDINGS: There is soft tissue irregularity over the left proximal humerus with possible small bubbles of gas suggested in the biceps area as well as skin thickening. There are marked degenerative changes in the left glenohumeral joint limited for evaluation. No obvious osseous destruction seen. If clinically indicated follow-up by CT or MRI. . XR/XR shoulder LT min 2V IMPRESSION: Soft tissue abnormality suspicious for small amount of soft tissue gas and edema over the left proximal humerus with possible skin thickening. Marked changes of osteoarthritis of the left glenohumeral joint
[2021-10-20 12:31] VITALS: BP 182/68; PULSE 72; RESP 16; TEMP 37; O2SAT 98; BMI 26.2
[2021-10-20] MEDS: oxyCODONE HCl Immed Release 5 MG TABLET PO (13:43)
[2021-10-20] MEDS: Lidocaine HCl 1 % 20 ML VIAL 10 ML INFILTRATI (13:50)
--- NOTE | 2021-10-20 14:18 | ED.SKABFB ---
HPI - Skin/Abscess/Foreign Bdy General Chief complaint: Skin/Abscess/Foreign Body Stated complaint: ABSCESS Time Seen by Provider: 10/20/21 13:08 Source: patient Mode of arrival: ambulatory Limitations: no limitations History of Present Illness HPI narrative: 61-year-old female who is diabetic presents for left shoulder pain and swelling. Patient had a fall 2 months ago, had negative x-rays at that time, numerous small bump on her left anterior shoulder. Since that time the bump has gotten bigger is more painful is ?she, is warm and red. Related Data Home Medications Medication Instructions Recorded Confirmed albuterol sulfate 90 mcg/actuation 2 puff PO Q4H PRN 04/24/20 06/04/21 aerosol inhaler aspirin 81 mg tablet,delayed 81 mg PO DAILY 04/24/20 06/04/21 release atorvastatin 40 mg tablet 40 mg PO DAILY 04/24/20 06/04/21 bupropion HCl 150 mg tablet,12 hr 150 mg PO BID 04/24/20 06/04/21 sustained-release cholecalciferol (vitamin D3) 50 50 mcg PO DAILY 04/24/20 06/04/21 mcg (2,000 unit) tablet furosemide 20 mg tablet 20 mg PO QAM 04/24/20 06/04/21 lancets 33 gauge #100 ea 04/24/20 06/04/21 lisinopril 10 mg tablet 10 mg PO DAILY 04/24/20 06/04/21 metformin 1,000 mg tablet 1,000 mg PO BIDWMEAL 04/24/20 06/04/21 omeprazole 20 mg capsule,delayed 20 mg PO DAILY 04/24/20 06/04/21 release gabapentin 600 mg tablet 600 mg PO TID 05/03/20 06/04/21 fluticasone propionate 110 2 puff INHALATION BID 05/28/20 06/04/21 mcg/actuation HFA aerosol inhaler (Flovent HFA) methadone 10 mg/mL oral 95 mg DAILY 05/28/20 06/04/21 concentrate (Methadone Intensol) insulin aspart U-100 100 unit/mL See Rx Instructions .ROUTE .COMPLEX 12/26/20 06/04/21 (3 mL) subcutaneous pen (Novolog Flexpen U-100 Insulin aspart) insulin degludec 100 unit/mL (3 40 unit SUBCUT BEDTIME 06/04/21 06/06/21 mL) subcutaneous pen (Tresiba FlexTouch U-100 insulin) Previous Rx's Medication Instructions Recorded walker #1 ea 10/11/20 doxycycline hyclate 100 mg tablet 100 mg PO BID 10 Days #20 tab 10/20/21 Allergies Allergy/AdvReac Type Severity Reaction Status Date / Time No Known Allergies Allergy Verified 05/23/21 14:09 Review of Systems Constitutional: Constitutional: Denies body ache(s), Denies chills, Denies fatigue, Denies fever(s), Denies headache(s), Denies malaise and Denies weakness Eyes: Eyes: Denies diplopia ENT: Denies vertigo, Denies dizziness, Denies headache(s) and Denies throat swelling Cardiovascular: Cardiovascular: Denies chest pain, Denies syncope, Denies leg edema, Denies lightheadedness, Denies Loss of Consciousness, Denies palpitations and Denies dyspnea Respiratory: Respiratory: Denies chest congestion, Denies cough and Denies dyspnea Gastrointestinal: Gastrointestinal: Denies abdominal pain, Denies hematochezia, Denies constipation, Denies diarrhea and Denies vomiting Musculoskeletal: Musculoskeletal: Reports no additional musculoskeletal complaints Integumentary/Breasts: Skin/Breast: Reports furuncle, Reports skin pain and Reports skin swelling Neurologic: Denies confusion, Denies vertigo, Denies dizziness, Denies syncope, Denies headache(s) and Denies weakness Psychiatric: Psychiatric: Denies anxiety, Denies confusion and Denies depression Endocrine: Endocrine: Denies fatigue and Denies palpitations Allergic/Immunologic: Allergic/Immunologic: Denies throat swelling [facility] Past Medical History Medical History Chronic prescription opiate use COPD (chronic obstructive pulmonary disease) Depression Diabetes mellitus Dyslipidemia Glaucoma New onset of congestive heart failure Pulmonary emboli Pulmonary nodule Tobacco dependence Surgical History Cataract extraction status, left eye Cataract extraction status, right eye Hx of cholecystectomy Family History Family History Other CVA (cerebral vascular accident) Social History Social History Household Members: Spouse Housing: House Housing Other:: hotel Do you presently have visiting nurse or other home services: No Alcohol intake: never Patient Tobacco Use Status: Current everyday Tobacco user Tobacco use type: Cigarette Cigarette Packs Per Day: 0.5 Cigarettes Per Day: 10.0 Years Smoked: 45 e-Cigarette/Vaping Use: Currently Using Second Hand Smoke Exposure: No Substance Use Type: Heroin Advance Directives: Yes Advance Directives Information Provided: Yes Advance Directives on File: No Advance Directives Date on File: 12/26/20 Patient : No service: No (hx on methadone) Current occupational status: disabled Physical Exam Vital Signs: Vital Signs: Last Vital Signs Temp 98.6 F 10/20/21 12:31 Pulse 72 10/20/21 12:31 Resp 18 10/20/21 14:45 BP 182/68 H 10/20/21 12:31 Pulse Ox 98 10/20/21 12:31 BMI result Body Mass Index 26.2 Const: General: No confusion Nutritional Appearance: well nourished Orientation/consciousness: No confusion Limitations: no limitations Eyes: Conjunctivae: conjunctivae normal Pupils: Equal, round and reactive pupils present EOM: EOMs intact bilaterally Neck: Neck: Yes full ROM, Yes no lymphadenopathy and Yes supple Resp: Effort & Inspection: normal respiratory effort and able to speak in complete sentences Auscultation: clear to auscultation bilaterally, no crackles, no rales, no rhonchi and no wheezes Cardio: Rate: regular rate Rhythm: regular rhythm Heart sounds: S1 normal heart sound present and S2 normal heart sound present GI: Inspection: Yes normal to inspection Palpation (GI): Soft to palpation, nontender, no guarding and not rigid Percussion: Yes normal to percussion Auscultation: normal bowel sounds Skin: Other: Large abscess anterior right shoulder. Neuro: General: No confusion Cranial nerves: Yes Equal, round and reactive pupils present Extrem: General: Yes normal to inspection and Yes full ROM Psych: Appearance: grossly normal Affect: normal affect Attitude: cooperative Thought process: Normal thought process present Course Course Course Narrative: Incision and drainage was performed, a gross amount of purulence fluid was expressed, about 100 cc. Area was packed, patient was counseled to return to emergency room in 2 days for recheck. X-ray was performed to rule out osteomyelitis or in shoulder joint which was negative. Culture was obtained, patient was started on doxycycline. Return precautions were given. All patient's questions were answered. XR/XR shoulder LT min 2V IMPRESSION: Soft tissue abnormality suspicious for small amount of soft tissue gas and edema over the left proximal humerus with possible skin thickening. Marked changes of osteoarthritis of the left glenohumeral joint No osteomyelitis on XR Procedures Abscess I/D Site: upper extremity Side (if applicable): left Local Anesthetic: lidocaine 1% Amount of anesthesia used (mL): 8 Technique: incised with blade Amount of fluid expressed (mL): 100 Sent for culture/gram staining?: Yes Irrigation: No Packing used?: iodoform Discharge Plan Discharge Clinical Impression: Abscess Patient Disposition: Home, Self-Care Instructions: Abscess Follow-up (ED), Abscess Incision and Drainage (DC) Additional Instructions: Please return to the emergency room in 2 days for recheck of your abscess. Please take your antibiotic starting today as prescribed. Your x-ray did not show any bone infection. Please call your primary care provider for follow-up appointment. Prescriptions: New doxycycline hyclate 100 mg tablet 100 mg PO BID 10 Days Qty: 20 0RF No Action (DME) walker Misc See Rx Instructions .ROUTE .MEDSUPPLY Qty: 1 0RF Rx Instructions: As directed Flovent HFA 110 mcg/actuation Hfa Aerosol Inhaler 2 puff INHALATION BID 0RF methadone [Methadone Intensol] 10 mg/mL Concentrate 95 mg DAILY 0RF insulin aspart U-100 [Novolog Flexpen U-100 Insulin] 100 unit/mL (3 mL) insulin pen See Rx Instructions .ROUTE .COMPLEX 0RF Rx Instructions: SLIDING SCALE Tresiba FlexTouch U-100 100 unit/mL (3 mL) insulin pen 40 unit subcut BEDTIME 0RF Rx Instructions: TAKES 40-45 IN THE MORNING gabapentin 600 mg tablet 600 mg PO TID 0RF (DME) lancets 33 gauge misc See Rx Instructions ea Not Applicable TID Qty: 100 0RF Rx Instructions: As directed cholecalciferol (vitamin D3) 50 mcg (2,000 unit) tablet 50 mcg PO DAILY 0RF albuterol sulfate 90 mcg/actuation HFA aerosol inhaler 2 puff PO Q4H PRN (Reason: Respiratory Distress) 0RF furosemide 20 mg tablet 20 mg PO QAM 0RF lisinopril 10 mg tablet 10 mg PO DAILY 0RF omeprazole 20 mg capsule,delayed release(DR/EC) 20 mg PO DAILY 0RF metformin 1,000 mg tablet 1,000 mg PO BIDWMEAL 0RF aspirin 81 mg tablet,delayed release (DR/EC) 81 mg PO DAILY 0RF bupropion HCl 150 mg tablet sustained-release 12 hr 150 mg PO BID 0RF atorvastatin 40 mg tablet 40 mg PO DAILY 0RF Interventions: ED Discharge Assessment Last Done: 10/20/21 15:18 Discharge Date/Time: 10/20/21 15:21
[2021-10-20 14:45] VITALS: RESP 18
== END 2021-10-20 15:21 | disposition home or self-care (01) ==
PROVIDERS: Emergency Provider Emergency Medicine; PCP Family Medicine
DX: L02.414 Cutaneous abscess of left upper limb (principal); E11.9 Type 2 diabetes mellitus without complications; J44.9 Chronic obstructive pulmonary disease, unspecified; Z86.711 Personal history of pulmonary embolism
CPT/HCPCS: 10060; 73030; 87071; 87077; 87186; 87205; 99284

== ENCOUNTER 2021-10-23 12:24 | Emergency (ER) | payer MEDICARE, MEDICAID, SELFPAY ==
[2021-10-23 13:36] VITALS: BP 172/64; PULSE 83; RESP 18; TEMP 36.4; O2SAT 95; BMI 26.4
--- NOTE | 2021-10-23 15:00 | ED.WOUNDLAC ---
HPI - Wound/Laceration General Chief Complaint: Wound/Laceration Stated Complaint: last here thursday, told to return today for absces Time Seen by Provider: 10/23/21 14:59 Source: patient Mode of arrival: ambulatory Limitations: no limitations History of Present Illness HPI narrative: 61 y/o year old female presents to the ER for wound re-evaluation and packing removal. She was seen here on 10/20 for an abscess on the left proximal arm that was incised and drained and packing was placed. She was discharged on oral antibiotics which she has been compliant with. She reports significant improvement in the pain and discomfort of the area and she denies any fevers. She reports adequate glucose control. She has kept the dressing in place since she was discharged from the ER. There is some brownish discoloration of the gauze but no purulent material. She has full range of motion of the arm and shoulder. Onset (ago): day(s) Extremity Location: left: shoulder Patient tetanus UTD: Yes Associated symptoms: none Treatments prior to arrival: bandage Related Data Home Medications Medication Instructions Recorded Confirmed albuterol sulfate 90 mcg/actuation 2 puff PO Q4H PRN 04/24/20 06/04/21 aerosol inhaler aspirin 81 mg tablet,delayed 81 mg PO DAILY 04/24/20 06/04/21 release atorvastatin 40 mg tablet 40 mg PO DAILY 04/24/20 06/04/21 bupropion HCl 150 mg tablet,12 hr 150 mg PO BID 04/24/20 06/04/21 sustained-release cholecalciferol (vitamin D3) 50 50 mcg PO DAILY 04/24/20 06/04/21 mcg (2,000 unit) tablet furosemide 20 mg tablet 20 mg PO QAM 04/24/20 06/04/21 lancets 33 gauge #100 ea 04/24/20 06/04/21 lisinopril 10 mg tablet 10 mg PO DAILY 04/24/20 06/04/21 metformin 1,000 mg tablet 1,000 mg PO BIDWMEAL 04/24/20 06/04/21 omeprazole 20 mg capsule,delayed 20 mg PO DAILY 04/24/20 06/04/21 release gabapentin 600 mg tablet 600 mg PO TID 05/03/20 06/04/21 fluticasone propionate 110 2 puff INHALATION BID 05/28/20 06/04/21 mcg/actuation HFA aerosol inhaler (Flovent HFA) methadone 10 mg/mL oral 95 mg DAILY 05/28/20 06/04/21 concentrate (Methadone Intensol) insulin aspart U-100 100 unit/mL See Rx Instructions .ROUTE .COMPLEX 12/26/20 06/04/21 (3 mL) subcutaneous pen (Novolog Flexpen U-100 Insulin aspart) insulin degludec 100 unit/mL (3 40 unit SUBCUT BEDTIME 06/04/21 06/06/21 mL) subcutaneous pen (Tresiba FlexTouch U-100 insulin) Previous Rx's Medication Instructions Recorded walker #1 ea 10/11/20 doxycycline hyclate 100 mg tablet 100 mg PO BID 10 Days #20 tab 10/20/21 Allergies Allergy/AdvReac Type Severity Reaction Status Date / Time No Known Allergies Allergy Verified 10/23/21 13:36 Review of Systems Review of Systems: Constitutional: No Fever, No Chills Cardiovascular: No Chest Pain, No SOB Respiratory: No Cough, No Sputum Gastrointestinal: No Nausea, No Vomiting, No abdominal Pain Musculoskeletal: No joint pain, No Myalgias Skin: + Skin Lesions, No rash Neuro: No Weakness, No Numbness Heme/Lymph: No Bruising, No Lymphadenopathy PMFSH Past Medical History Medical History Chronic prescription opiate use COPD (chronic obstructive pulmonary disease) Depression Diabetes mellitus Dyslipidemia Glaucoma New onset of congestive heart failure Pulmonary emboli Pulmonary nodule Tobacco dependence Surgical History Cataract extraction status, left eye Cataract extraction status, right eye Hx of cholecystectomy Family History Family History Other CVA (cerebral vascular accident) Social History Social History Household Members: Spouse Housing: House Housing Other:: hotel Do you presently have visiting nurse or other home services: No Alcohol intake: never Patient Tobacco Use Status: Current everyday Tobacco user Tobacco use type: Cigarette Cigarette Packs Per Day: 0.5 Cigarettes Per Day: 10.0 Years Smoked: 45 e-Cigarette/Vaping Use: Currently Using Second Hand Smoke Exposure: No Substance Use Type: Heroin Advance Directives: No Advance Directives Information Provided: No Advance Directives Date on File: 12/26/20 service: No (hx on methadone) Current occupational status: disabled Physical Exam Vital Signs: Vital Signs: Last Vital Signs Temp 97.6 F 10/23/21 13:36 Pulse 83 10/23/21 13:36 Resp 18 10/23/21 13:36 BP 172/64 H 10/23/21 13:36 Pulse Ox 95 10/23/21 13:36 BMI result Body Mass Index 26.4 Appearance: Alert. Oriented X3. No acute distress. HEENT: normal inspection CVS: Normal heart rate and rhythm. Pulses normal. Respiratory: No respiratory distress. Skin: Skin warm and dry. Normal skin color. Normal skin turgor. No rashes. Extremities: Left proximal arm with a moderate-sized healing abscess with packing in place, this was removed with some bloody, serosanguineous discharge on the packing itself without any further drainage of pus. No further fluctuance. Mild induration with minimal erythema, improved from prior. Neuro: Oriented X 3. No motor deficit. No sensory deficit. Course Course Course Narrative: 61-year-old female presents to the ER for abscess and wound follow-up. She was here 2 days ago and had an abscess on her left shoulder it incised and drained with packing placed. She reports improvement in pain, swelling. She has had the dressing in place since discharge and is slightly soiled with brown discharge. About 3 in of packing removed from the wound in the left proximal arm patient tolerated well. A smaller amount of packing was placed and patient tolerated well. At this time the wound appears to be healing appropriately. She is agreeable to take out the packing at home and continue to monitor the wound at home. She will follow-up with her PCP. We discussed wound care management and dressing changes. Stable for DC home with continuing her oral antibiotics and local wound care. Critical Care Time Critical Care Time Critical Care Time: No Discharge Plan Discharge Clinical Impression: Abscess Patient Disposition: Home, Self-Care Instructions: Abscess Follow-up (ED) Additional Instructions: You can take your packing out in 2 days. No need for more packing. Keep wound covered with clean gauze, change the dressing whenever it gets soiled. Continue taking your previously prescribed antibiotics. Follow up with your doctor as needed. Prescriptions: No Action (DME) walker Misc See Rx Instructions .ROUTE .MEDSUPPLY Qty: 1 0RF Rx Instructions: As directed Flovent HFA 110 mcg/actuation Hfa Aerosol Inhaler 2 puff INHALATION BID 0RF methadone [Methadone Intensol] 10 mg/mL Concentrate 95 mg DAILY 0RF insulin aspart U-100 [Novolog Flexpen U-100 Insulin] 100 unit/mL (3 mL) insulin pen See Rx Instructions .ROUTE .COMPLEX 0RF Rx Instructions: SLIDING SCALE Tresiba FlexTouch U-100 100 unit/mL (3 mL) insulin pen 40 unit subcut BEDTIME 0RF Rx Instructions: TAKES 40-45 IN THE MORNING doxycycline hyclate 100 mg tablet 100 mg PO BID 10 Days Qty: 20 0RF gabapentin 600 mg tablet 600 mg PO TID 0RF (DME) lancets 33 gauge misc See Rx Instructions ea Not Applicable TID Qty: 100 0RF Rx Instructions: As directed cholecalciferol (vitamin D3) 50 mcg (2,000 unit) tablet 50 mcg PO DAILY 0RF albuterol sulfate 90 mcg/actuation HFA aerosol inhaler 2 puff PO Q4H PRN (Reason: Respiratory Distress) 0RF furosemide 20 mg tablet 20 mg PO QAM 0RF lisinopril 10 mg tablet 10 mg PO DAILY 0RF omeprazole 20 mg capsule,delayed release(DR/EC) 20 mg PO DAILY 0RF metformin 1,000 mg tablet 1,000 mg PO BIDWMEAL 0RF aspirin 81 mg tablet,delayed release (DR/EC) 81 mg PO DAILY 0RF bupropion HCl 150 mg tablet sustained-release 12 hr 150 mg PO BID 0RF atorvastatin 40 mg tablet 40 mg PO DAILY 0RF
== END 2021-10-23 15:39 | disposition home or self-care (01) ==
PROVIDERS: Emergency Provider Emergency Medicine; PCP Family Medicine
DX: L02.414 Cutaneous abscess of left upper limb (principal); E11.9 Type 2 diabetes mellitus without complications; J44.9 Chronic obstructive pulmonary disease, unspecified; F17.210 Nicotine dependence, cigarettes, uncomplicated; Z86.711 Personal history of pulmonary embolism; Z79.891 Long term (current) use of opiate analgesic; Z98.890 Other specified postprocedural states
CPT/HCPCS: 99283

== ENCOUNTER 2021-11-18 17:04 | Emergency (ER) | payer MEDICARE, MEDICAID, SELFPAY ==
[2021-11-18 17:08] VITALS: BP 165/78; PULSE 89; RESP 18; TEMP 36.2; O2SAT 99; BMI 26.2
[2021-11-18 17:18] LABS: MANUAL DIFF FLAG NO
[2021-11-18 17:20] LABS: Basophils Percent Auto 0.4 % (0-2); Eosinophils Absolute Auto 0.1 X10*3/uL (0.0-0.4); Eosinophils Percent Auto 0.8 % (0-4); Hematocrit 32.6 % (37.0-47.0); Imm Gran Abs Auto 0.02 X10*3/uL (0.00-0.03); Imm Gran Pct Auto 0.3 % (0.0-0.4); Lymphocytes Percent Auto 28.2 % (20-40); Mean Corpuscular HGB Conc 30.7 g/dl (31.0-35.0); Mean Corpuscular Hemoglobin 26.1 pg (27.0-33.0); Mean Corpuscular Volume 85.1 fL (80.0-98.0); Monocytes Absolute Auto 0.6 X10*3/uL (0.1-1.2); Neutrophils Absolute Auto 4.4 x10*3/uL (2.0-8.3); Neutrophils Percent Auto 62.3 % (45-73); Platelet Count 332 X10*3/uL (160-400); Red Blood Count 3.83 X10*6/uL (4.20-5.50); Red Cell Distribution Width 14.5 % (11.0-16.0); White Blood Count 7.1 X10*3/uL (4.8-10.8)
[2021-11-18 17:44] LABS: Anion Gap 12 (12-20); Blood Urea Nitrogen 19 mg/dL (9-16); Calcium 9.2 mg/dL (8.4-10.2); Carbon Dioxide 30 mmol/L (22-29); Chloride 95 mmol/L (96-108); Creatinine Clr Calc Pharmacy 34.2; Estimated Glomerular Filt Rate 40; Glucose Random 505 mg/dL (60-115); Potassium 4.6 mmol/L (3.3-5.1); Sodium 132 mmol/L (135-145)
== END 2021-11-18 21:52 | disposition left against medical advice (07) ==
PROVIDERS: Emergency Provider Emergency Medicine; PCP Family Medicine
DX: M25.512 Pain in left shoulder (principal); Z79.899 Other long term (current) drug therapy
CPT/HCPCS: 36415; 80048; 85025; 99283

== ENCOUNTER 2021-11-19 14:20 | Emergency (ER) | payer MEDICARE, MEDICAID, SELFPAY ==
--- NOTE | ~2021-11-19 | XR_ITS ---
EXAMINATION: XR SHOULDER, LEFT CLINICAL INFORMATION: Pain COMPARISON: 10/20/2021 TECHNIQUE: Two views of the left shoulder. XR/XR shoulder LT min 2V FINDINGS/IMPRESSION: There are mottled throughout the left humeral head with disruption of the subchondral bone plate of the humeral head and likely erosive changes along the medial humeral head and throughout the glenoid. Findings could be compatible with septic arthritis or severe inflammatory arthropathy.
[2021-11-19 14:53] VITALS: BP 176/58; PULSE 64; RESP 18; TEMP 36.9; O2SAT 98; BMI 26.2
--- NOTE | 2021-11-19 15:17 | ED_ITS ---
HPI - General Adult General Chief complaint: Skin/Abscess/Foreign Body Stated complaint: abcess Time Seen by Provider: 11/19/21 15:17 Source: patient Mode of arrival: ambulatory Limitations: no limitations History of Present Illness HPI narrative: Patient is a 61 year old female presenting to the emergency department today with left shoulder pain. Patient states that she has had an abscess on her left upper arm that keeps draining, getting better, and then coming back. Patient states that she has diabetes and that she doesn't maintain her sugars well. Patient states that she is here today because her PCP told her to come here. Patient's paperwork from her PCP shows that her culture from 10/20 of the abscessed area grew MRSA that was resistant to doxy.. Patient denies any dizziness, lightheadedness, abdominal pain, nausea, vomiting, fever, chills, blurry vision, double vision, loss of vision, chest pain, difficulty breathing, shortness of breath, back pain, night sweats, pain with urination, increased urinary frequency, increased urinary urgency, blood in her urine or stool, syncope or a near syncopal episode, recent trauma or falls, bowel incontinence, bladder incontinence, bowel retention, bladder retention, or any other complaints at this time. Onset (ago): month(s) Location: left and upper extremity Radiation: non-radiation Severity: mild Severity scale (1-10): 3 Quality: dull Pain Consistency: intermittent Relieving factors: none Exacerbating factors: movement Associated symptoms: denies other symptoms Treatments prior to arrival: none Related Data Home Medications Medication Instructions Recorded Confirmed albuterol sulfate 90 mcg/actuation 2 puff PO Q4H PRN 04/24/20 06/04/21 aerosol inhaler aspirin 81 mg tablet,delayed 81 mg PO DAILY 04/24/20 06/04/21 release atorvastatin 40 mg tablet 40 mg PO DAILY 04/24/20 06/04/21 bupropion HCl 150 mg tablet,12 hr 150 mg PO BID 04/24/20 06/04/21 sustained-release cholecalciferol (vitamin D3) 50 50 mcg PO DAILY 04/24/20 06/04/21 mcg (2,000 unit) tablet furosemide 20 mg tablet 20 mg PO QAM 04/24/20 06/04/21 lancets 33 gauge #100 ea 04/24/20 06/04/21 lisinopril 10 mg tablet 10 mg PO DAILY 04/24/20 06/04/21 metformin 1,000 mg tablet 1,000 mg PO BIDWMEAL 04/24/20 06/04/21 omeprazole 20 mg capsule,delayed 20 mg PO DAILY 04/24/20 06/04/21 release gabapentin 600 mg tablet 600 mg PO TID 05/03/20 06/04/21 fluticasone propionate 110 2 puff INHALATION BID 05/28/20 06/04/21 mcg/actuation HFA aerosol inhaler (Flovent HFA) methadone 10 mg/mL oral 95 mg DAILY 05/28/20 06/04/21 concentrate (Methadone Intensol) insulin aspart U-100 100 unit/mL See Rx Instructions .ROUTE .COMPLEX 12/26/20 06/04/21 (3 mL) subcutaneous pen (Novolog Flexpen U-100 Insulin aspart) insulin degludec 100 unit/mL (3 40 unit SUBCUT BEDTIME 06/04/21 06/06/21 mL) subcutaneous pen (Tresiba FlexTouch U-100 insulin) Previous Rx's Medication Instructions Recorded walker #1 ea 10/11/20 doxycycline hyclate 100 mg tablet 100 mg PO BID 10 Days #20 tab 10/20/21 Allergies Allergy/AdvReac Type Severity Reaction Status Date / Time No Known Allergies Allergy Verified 11/19/21 14:53 Review of Systems Constitutional: Constitutional: Reports no additional constitutional complaints, Denies chills, Denies fever(s) and Denies night sweats Eyes: Eyes: Reports no additional eye complaints, Denies blurry vision, Denies change in vision, Denies diplopia, Denies eye discharge, Denies loss of vision and Denies eye pain ENT: Denies dizziness Cardiovascular: Cardiovascular: Reports no additional cardiovascular complaints, Denies chest pain, Denies lightheadedness, Denies Loss of Consciousness and Denies dyspnea Respiratory: Respiratory: Reports no additional respiratory complaints and Denies dyspnea Gastrointestinal: Gastrointestinal: Reports no additional gastrointestinal complaints, Denies abdominal pain, Denies melena, Denies hematochezia, Denies change in bowel habits and Denies change in stool character Genitourinary: Genitourinary: Denies hematuria, Denies urinary frequency, Denies dysuria, Denies urinary incontinence, Denies urinary hesitancy and Denies urinary urgency Musculoskeletal: Musculoskeletal: Reports no additional musculoskeletal complaints, Denies numbness and Denies tingling Comments: left shoulder pain Neurologic: Denies dizziness, Denies loss of vision, Denies numbness and Denies tingling Psychiatric: Psychiatric: Reports no additional psychiatric complaints Endocrine: Endocrine: Reports no additional endocrine complaints Hematologic/Lymphatic: Hematologic/Lymphatic: Reports no additional hematologic/lymphatic complaints Allergic/Immunologic: Allergic/Immunologic: Reports no additional allergic /immunologic complaints PMFSH Past Medical History Attestation statement: The following information was validated with the patient. Source: old records reviewed Medical History Chronic prescription opiate use COPD (chronic obstructive pulmonary disease) Depression Diabetes mellitus Dyslipidemia Glaucoma New onset of congestive heart failure Pulmonary emboli Pulmonary nodule Tobacco dependence Surgical History Cataract extraction status, left eye Cataract extraction status, right eye Hx of cholecystectomy Family History Family History Other CVA (cerebral vascular accident) Social History Social History Household Members: Spouse Housing: House Housing Other:: hotel Do you presently have visiting nurse or other home services: No Alcohol intake: never Patient Tobacco Use Status: Current everyday Tobacco user Tobacco use type: Cigarette Cigarette Packs Per Day: 0.5 Cigarettes Per Day: 10.0 Years Smoked: 45 e-Cigarette/Vaping Use: Currently Using Second Hand Smoke Exposure: No Substance Use Type: Heroin Advance Directives: No Advance Directives Information Provided: No Advance Directives Date on File: 12/26/20 service: No (hx on methadone) Current occupational status: disabled Physical Exam ED Vital Signs: Vital Signs - 24 hr 11/19/21 14:53 Temperature 98.5 F Pulse Rate 64 Respiratory Rate 18 Blood Pressure 176/58 H Pulse Oximetry 98 BMI result Body Mass Index 26.2 Const General: cooperative, no acute distress, alert and awake Nutritional Appearance: well nourished Orientation/consciousness: patient oriented x3 Limitations: no limitations HENMT Head: Yes normal to inspection and Yes atraumatic Ears: hearing grossly normal bilaterally and external ears normal General nose exam: Normal external nose present, no nasal discharge noted and no epistaxis Face and sinus: Yes normal facial exam, No abrasion and No laceration Mouth: Normal oral and palatal mucosa present, no drooling and no muffled voice Eyes General: appearance normal, both eyes and all related structures Periorbital: periorbital findings normal Eyelids: Yes eyelids normal Conjunctivae: conjunctivae normal Pupils: Equal, round and reactive pupils present EOM: EOMs intact bilaterally Neck Neck: Yes normal visual inspection, Yes full ROM and Yes no lymphadenopathy Chest Chest palpation & inspection: normal inspection of the chest Resp Effort & Inspection: normal respiratory effort and able to speak in complete sentences Auscultation: clear to auscultation bilaterally Cardio Rate: regular rate Rhythm: regular rhythm GI Inspection: Yes normal to inspection Skin Other: Neuro General: patient oriented x3 and moves all extremities Cranial nerves: Yes Equal, round and reactive pupils present Cognition (Neuro): normal cognition Motor exam (neuro): 5/5 motor strength present throughout Sensory Exam: Normal double simultaneous stimulation for sensation Coordination: [id number] test normal Extrem Other: pain with abduction of the left shoulder General: Yes normal to inspection, Yes full ROM and Yes capillary refill normal Psych Appearance: grossly normal Mental Status: mental status grossly normal Affect: normal affect Attitude: cooperative Thought process: Normal thought process present Thought content: Normal thought content present Insight: Good insight present (Psych) Medical Decision Making [facility] Narrative Medical decision making narrative: Patient is a 61 year old female presenting to the emergency department today with left shoulder pain. Patient's physical exam showed slight pain with abduction of the left shoulder and a small ulcer where the previous abscess on the left lateral humerus was. There was no warmth, erythema, or swelling around the previously abscessed area. There was no signs of acute infection in the area. There was no pain to palpation of the left shoulder joint. Patient's blood work showed an elevated ESR and CRP but was otherwise unremarkable. Patient's left shoulder x-ray showed disruption of the subchondral bone plate of the humeral head and likely erosive changes along the medial humeral head and throughout the glenoid. The radiologist notes that this findings could be compatible with either septic arthritis or severe inflammatory arthropathy. However, when I compared this shoulder XR to her previous left shoulder XR, I did not see any acute changes. I spoke to Judy, the ortho PA front office clerk who agreed that the wound does not look infected at this time and she does not fit the clinical picture of an acute infection or a septic arthritis. I explained my physical exam findings as well as all test results to the patient. I answered all questions asked by the patient. I stressed the importance of the patient taking her medication as prescribed. I stressed the importance of the patient following up with her primary care provider, an orthopedist, and a corporate specialist. I stressed the importance of the patient returning to the emergency department immediately if her symptoms were to worsen or if she were to develop any dizziness, shortness of breath, difficulty breathing, chest pain, blurry vision, loss of vision, nausea, vomiting, abdominal pain, fever, chills, back pain, or any other complaints. Patient verbalized agreement and understanding with this treatment plan and discharge. Differential Diagnosis Differential Diagnosis: rotator cuff injury, poorly controlled diabetic Medical Records Medical records reviewed: Yes I reviewed the patient's medical records. Lab Data Lab results reviewed: Yes I reviewed the patient's lab results. Result diagrams: 11/19/21 15:11/19/21 15: Labs: Lab Results 11/19/21 11/19/21 11/19/21 Range/Units 15:01 15:01 15:01 WBC 7.9 (4.8-10.8) X10*3/uL RBC 3.67 L (4.20-5.50) X10*6/uL Hgb 9.7 L (12.0-16.0) g/dl Hct 31.1 L (37.0-47.0) % MCV 84.7 (80.0-98.0) fL MCH 26.4 L (27.0-33.0) pg MCHC 31.2 (31.0-35.0) g/dl RDW 13.9 (11.0-16.0) % Plt Count 294 (160-400) X10*3/uL MPV 10.3 (9.4-12.3) fL Immature Gran % (Auto) 0.3 (0.0-0.4) % Neut % (Auto) 69.7 (45-73) % Lymph % (Auto) 22.0 (20-40) % [place] % (Auto) 7.1 (2-11) % Eos % (Auto) 0.5 (0-4) % Baso % (Auto) 0.4 (0-2) % Lymph # (Auto) 1.7 (1.2-4.9) X10*3/uL [place] # (Auto) 0.6 (0.1-1.2) X10*3/uL Eos # (Auto) 0.0 (0.0-0.4) X10*3/uL Baso # (Auto) 0.0 (0.0-0.2) X10*3/uL Abs Immat Gran (auto) 0.02 (0.00-0.03) X10*3/uL Absolute Neuts (auto) 5.5 (2.0-8.3) x10*3/uL Absolute Nucleated RBC 0.000 (0.0-0.012) X10*3/uL Nucleated RBC % (auto) 0.0 (0.0-0.2) /100WBC ESR 99 H (0-20) MM/HR Sodium 132 L (135-145) mmol/L Potassium 4.8 (3.3-5.1) mmol/L Chloride 96 (96-108) mmol/L Carbon Dioxide 29 (22-29) mmol/L Anion Gap 12 (12-20) BUN 13 (9-16) mg/dL Creatinine 1.23 (0.5-1.4) mg/dL Estim Creat Clear Calc 37.5 Estimated GFR 44 Random Glucose 490 H* (60-115) mg/dL Calcium 9.4 (8.4-10.2) mg/dL C-Reactive Protein 4.84 H (< or = 0.50) mg/dL Imaging Data Left shoulder x-ray: Attestation: I personally reviewed and interpreted this imaging study as follows: Radiologist's impression: EXAMINATION: XR SHOULDER, LEFT CLINICAL INFORMATION: Pain? COMPARISON: 10/20/2021? TECHNIQUE: Two views of the left shoulder. XR/XR shoulder LT min 2V FINDINGS/IMPRESSION: There are mottled throughout the left humeral head with disruption of the subchondral bone plate of the humeral head and likely erosive changes along the medial humeral head and throughout the glenoid. Findings could be compatible with septic arthritis or severe inflammatory arthropathy. Dictated By: Conrad Recio MD Signed By: Electronically signed by Conrad Recio MD 11/19/21 [id number] Discharge Plan Discharge Clinical Impression: Acute shoulder pain, Uncontrolled diabetes mellitus with hyperglycemia Patient Disposition: Home, Self-Care Instructions: Shoulder Pain (ED) Additional Instructions: Follow up with your primary care provider, orthopedics, and wound care. Return to the emergency department immediately if your symptoms worsen or if you develo p any dizziness, shortness of breath, difficulty breathing, chest pain, blurry vision, loss of vision, nausea, vomiting, abdominal pain, fever, chills, back pain, or any other complaints. Prescriptions: No Action (DME[facility] See Rx Instructions .ROUTE .MEDSUPPLY Qty: 1 0RF Rx Instructions: As directed Flovent HFA 110 mcg/actuation Hfa Aerosol Inhaler 2 puff INHALATION BID 0RF methadone [Methadone Intensol] 10 mg/mL Concentrate 95 mg DAILY 0RF insulin aspart U-100 [Novolog Flexpen U-100 Insulin] 100 unit/mL (3 mL) insulin pen See Rx Instructions .ROUTE .COMPLEX 0RF Rx Instructions: SLIDING SCALE Tresiba FlexTouch U-100 100 unit/mL (3 mL) insulin pen 40 unit subcut BEDTIME 0RF Rx Instructions: TAKES 40-45 IN THE MORNING doxycycline hyclate 100 mg tablet 100 mg PO BID 10 Days Qty: 20 0RF gabapentin 600 mg tablet 600 mg PO TID 0RF (DME) lancets 33 gauge [facility] [place] See Rx Instructions ea Not Applicable TID Qty: 100 0RF Rx Instructions: As directed cholecalciferol (vitamin D3) 50 mcg (2,000 unit) tablet 50 mcg PO DAILY 0RF albuterol sulfate 90 mcg/actuation HFA aerosol inhaler 2 puff PO Q4H PRN (Reason: Respiratory Distress) 0RF furosemide 20 mg tablet 20 mg PO QAM 0RF lisinopril 10 mg tablet 10 mg PO DAILY 0RF omeprazole 20 mg capsule,delayed release(DR/EC) 20 mg PO DAILY 0RF metformin 1,000 mg tablet 1,000 mg PO BIDWMEAL 0RF aspirin 81 mg tablet,delayed release (DR/EC) 81 mg PO DAILY 0RF bupropion HCl 150 mg tablet sustained-release 12 hr 150 mg PO BID 0RF atorvastatin 40 mg tablet 40 mg PO DAILY 0RF Ref[place]: [facility] [place] [facility] [Provider Group] [facility] [place] [facility] [Provider Group] Ellen Cheema MD [Primary Care Provider] - Interventions: ED Discharge Assessment Last Done: 11/19/21 18:35 Discharge Date/Time: 11/19/21 18:37 Print Language: Bur[place]ian
[2021-11-19 15:21] LABS: MANUAL DIFF FLAG NO
[2021-11-19 15:25] LABS: Basophils Percent Auto 0.4 % (0-2); Eosinophils Percent Auto 0.5 % (0-4); Hematocrit 31.1 % (37.0-47.0); Hemoglobin 9.7 g/dl (12.0-16.0); Imm Gran Abs Auto 0.02 X10*3/uL (0.00-0.03); Imm Gran Pct Auto 0.3 % (0.0-0.4); Lymphocytes Absolute Auto 1.7 X10*3/uL (1.2-4.9); Mean Corpuscular HGB Conc 31.2 g/dl (31.0-35.0); Mean Corpuscular Hemoglobin 26.4 pg (27.0-33.0); Mean Corpuscular Volume 84.7 fL (80.0-98.0); Mean Platelet Volume 10.3 fL (9.4-12.3); Monocytes Absolute Auto 0.6 X10*3/uL (0.1-1.2); Monocytes Percent Auto 7.1 % (2-11); Neutrophils Absolute Auto 5.5 x10*3/uL (2.0-8.3); Neutrophils Percent Auto 69.7 % (45-73); Platelet Count 294 X10*3/uL (160-400); Red Blood Count 3.67 X10*6/uL (4.20-5.50); Red Cell Distribution Width 13.9 % (11.0-16.0); White Blood Count 7.9 X10*3/uL (4.8-10.8)
[2021-11-19 15:52] LABS: Anion Gap 12 (12-20); Blood Urea Nitrogen 13 mg/dL (9-16); Calcium 9.4 mg/dL (8.4-10.2); Carbon Dioxide 29 mmol/L (22-29); Chloride 96 mmol/L (96-108); Creatinine Clr Calc Pharmacy 37.5; Estimated Glomerular Filt Rate 44; Glucose Random 490 mg/dL (60-115); Potassium 4.8 mmol/L (3.3-5.1); Sodium 132 mmol/L (135-145)
[2021-11-19 17:46] LABS: C Reactive Protein 4.84 mg/dL (< or = 0.50)
[2021-11-19 18:19] LABS: Erythrocyte Sedimentation Rate 99 MM/HR (0-20)
== END 2021-11-19 18:37 | disposition home or self-care (01) ==
PROVIDERS: Physician Assistant Medical; Emergency Provider Emergency Medicine; PCP Family Medicine
DX: M25.512 Pain in left shoulder (principal); E11.65 Type 2 diabetes mellitus with hyperglycemia; Z79.899 Other long term (current) drug therapy
CPT/HCPCS: 36415; 73030; 80048; 85025; 85652; 86140; 99283

== ENCOUNTER 2022-01-11 12:55 | Inpatient (IN) | payer MEDICARE, MEDICAID, SELFPAY ==
--- NOTE | ~2022-01-11 | XR_ITS ---
EXAMINATION: XR FOOT, RIGHT XR ANKLE, RIGHT CLINICAL INFORMATION: Severe osteomyelitis. Wound. COMPARISON: Right foot 01/02/2021. TECHNIQUE: 3 views right foot and 3 views right ankle. FINDINGS: Right Foot and Ankle: There is significant deformity involving the tarsal bones. Most of the tarsal bones are absorbed with loss of joint space, bony erosive changes, osteopenia and bone loss consistent with severe Charcot disease. The findings have significantly progressed since the last exam 02/01/2021. There is moderate soft tissue swelling along the right ankle joint. The ankle mortise and subtalar joints are completely absorbed and not visualized. There is significant osteopenia around the ankle joint. Bilateral medial and lateral malleolar soft tissue swelling is seen slightly more prominent than last exam. XR/XR foot RT min 3V IMPRESSION: Interval worsening of deformity around the right ankle joint and right hindfoot and midfoot regions consistent with severe Charcot disease. There is deformity, moderate soft tissue swelling, bone absorption with individual tarsal bones hard to identify.
--- NOTE | ~2022-01-11 | XR_ITS ---
EXAMINATION: XR FOOT, RIGHT XR ANKLE, RIGHT CLINICAL INFORMATION: Severe osteomyelitis. Wound. COMPARISON: Right foot 01/02/2021. TECHNIQUE: 3 views right foot and 3 views right ankle. FINDINGS: Right Foot and Ankle: There is significant deformity involving the tarsal bones. Most of the tarsal bones are absorbed with loss of joint space, bony erosive changes, osteopenia and bone loss consistent with severe Charcot disease. The findings have significantly progressed since the last exam 02/01/2021. There is moderate soft tissue swelling along the right ankle joint. The ankle mortise and subtalar joints are completely absorbed and not visualized. There is significant osteopenia around the ankle joint. Bilateral medial and lateral malleolar soft tissue swelling is seen slightly more prominent than last exam. XR/XR ankle RT min 3V IMPRESSION: Interval worsening of deformity around the right ankle joint and right hindfoot and midfoot regions consistent with severe Charcot disease. There is deformity, moderate soft tissue swelling, bone absorption with individual tarsal bones hard to identify.
--- NOTE | 2022-01-11 13:09 | ED.LOWEXIN ---
HPI - Extremity Injury (Lower) General Chief Complaint: Wound/Laceration Stated Complaint: FOOT ULCER Time Seen by Provider: 01/11/22 13:09 Source: patient Mode of arrival: EMS Limitations: no limitations History of Present Illness HPI Narrative: 62-year-old female with past medical history of poorly controlled insulin-dependent diabetes, glaucoma, COPD, PE, CHF, prescribed chronic opioid use, who presents for 2 days of pain in her right foot. Patient has neuropathy in her feet, however her right heel has been very painful. Patient has had a diabetic ulcer on the lateral side of her right ankle and was being seen by wound care, her last appointment was 05/09/2020. That note states patient had missed a number of appointments Patient has another wound clinic appointment January 17. Denies chest pain, fevers, shortness of breath, abdominal pain, vomiting, diarrhea, nausea, lightheadedness, focal neuro symptoms Nursing tells me as patient was being transferred from a stretcher to hospital bed, a lot of pus came out of her foot, RN says about 50 cc Related Data Home Medications Medication Instructions Recorded Confirmed albuterol sulfate 90 mcg/actuation 2 puff PO Q4H PRN Respiratory 04/24/20 06/04/21 aerosol inhaler Distress aspirin 81 mg tablet,delayed 81 mg PO DAILY 04/24/20 06/04/21 release atorvastatin 40 mg tablet 40 mg PO DAILY 04/24/20 06/04/21 bupropion HCl 150 mg tablet,12 hr 150 mg PO BID 04/24/20 06/04/21 sustained-release cholecalciferol (vitamin D3) 50 50 mcg PO DAILY 04/24/20 06/04/21 mcg (2,000 unit) tablet furosemide 20 mg tablet 20 mg PO QAM 04/24/20 06/04/21 lancets 33 gauge #100 ea 04/24/20 06/04/21 lisinopril 10 mg tablet 10 mg PO DAILY 04/24/20 06/04/21 metformin 1,000 mg tablet 1,000 mg PO BIDWMEAL 04/24/20 06/04/21 omeprazole 20 mg capsule,delayed 20 mg PO DAILY 04/24/20 06/04/21 release gabapentin 600 mg tablet 600 mg PO TID 05/03/20 06/04/21 fluticasone propionate 110 2 puff inhalation BID 05/28/20 06/04/21 mcg/actuation HFA aerosol inhaler (Flovent HFA) methadone 10 mg/mL oral 95 mg DAILY 05/28/20 06/04/21 concentrate (Methadone Intensol) insulin aspart U-100 100 unit/mL See Rx Instructions .Route .COMPLEX 12/26/20 06/04/21 (3 mL) subcutaneous pen (Novolog Flexpen U-100 Insulin aspart) insulin degludec 100 unit/mL (3 40 unit subcut BEDTIME 06/04/21 06/06/21 mL) subcutaneous pen (Tresiba FlexTouch U-100 insulin) Previous Rx's Medication Instructions Recorded walker #1 ea 10/11/20 doxycycline hyclate 100 mg tablet 100 mg PO BID 10 days #20 tabs 10/20/21 Allergies Allergy/AdvReac Type Severity Reaction Status Date / Time No Known Allergies Allergy Verified 11/19/21 14:53 [facility] Past Medical History Medical History Chronic prescription opiate use COPD (chronic obstructive pulmonary disease) Depression Diabetes mellitus Dyslipidemia Glaucoma New onset of congestive heart failure Pulmonary emboli Pulmonary nodule Tobacco dependence Surgical History Cataract extraction status, left eye Cataract extraction status, right eye Hx of cholecystectomy Family History Family History Other CVA (cerebral vascular accident) Social History Social History Household Members: Spouse Housing: House Housing Other:: hotel Do you presently have visiting nurse or other home services: No Alcohol intake: never Patient Tobacco Use Status: Current everyday Tobacco user Tobacco use type: Cigarette Cigarette Packs Per Day: 0.5 Cigarettes Per Day: 10.0 Years Smoked: 45 e-Cigarette/Vaping Use: Currently Using Second Hand Smoke Exposure: No Substance Use Type: Heroin Advance Directives: Yes Advance Directives Information Provided: Yes Advance Directives on File: No Advance Directives Date on File: 12/26/20 service: No (hx on methadone) Current occupational status: disabled Physical Exam Vital Signs: Vital Signs: Last Vital Signs Temp 96.7 F L 01/11/22 13:10 Pulse 70 01/11/22 13:10 Resp 18 01/11/22 13:10 BP 153/68 H 01/11/22 13:10 Pulse Ox 98 01/11/22 13:10 O2 Del Method 01/11/22 13:10 BMI result Body Mass Index 25.2 Const: General: cooperative, no acute distress, alert, awake and ill appearing chronically Nutritional Appearance: underweight Orientation/consciousness: patient oriented x3 Limitations: no limitations Eyes: Conjunctivae: conjunctivae normal Pupils: Equal, round and reactive pupils present EOM: EOMs intact bilaterally Neck: Neck: Yes full ROM, Yes no lymphadenopathy and Yes supple Resp: Effort & Inspection: normal respiratory effort and able to speak in complete sentences Auscultation: clear to auscultation bilaterally, no crackles, no rales, no rhonchi and no wheezes Cardio: Rate: regular rate Rhythm: regular rhythm Heart sounds: S1 normal heart sound present and S2 normal heart sound present GI: Inspection: Yes normal to inspection Palpation (GI): Soft to palpation, nontender, no guarding and not rigid Percussion: Yes normal to percussion Auscultation: normal bowel sounds Skin: Other: Necrotic diabetic ulcer to right lateral ankle, right lateral ankle is deformed, red, swollen, warm, with necrotic lesions Neuro: General: patient oriented x3, tone normal and moves all extremities Cranial nerves: Yes Equal, round and reactive pupils present Extrem: Other: Left lower extremity: normal capillary refill, edema and foot (Necrotic diabetic ulcer to right lateral ankle) Psych: Appearance: grossly normal Affect: normal affect Attitude: cooperative Thought process: Normal thought process present Course Course Course Narrative: 62-year-old poorly controlled diabetic presents with wound to right lateral ankle with deformity, necrosis, redness, swelling, warmth Vitals are stable. Patient has no leukocytosis, white blood cell count is 10.7, H&H is 9 and 28.8. Patient is hyponatremic at 01:29, potassium 4.9, elevated blood sugar 508. Lactic 1.5, COVID negative. Blood cultures taken, wound culture taken. Patient given fluids, insulin, started on vancomycin and cefepime. X-ray shows severe Charcot foot disease with bone absorption Ordered urine, VBG, acetone in the setting of hyperglycemia, to rule out DKA Will pursue admission Reevaluation(s) Reevaluation #1: XR/XR foot RT min 3V IMPRESSION: Interval worsening of deformity around the right ankle joint and right hindfoot and midfoot regions consistent with severe Charcot disease. There is deformity, moderate soft tissue swelling, bone absorption with individual tarsal bones hard to identify.? ABG within normal limits, patient has negative acetone, patient not in DKA MDM - Extremity Injury (Lower) Lab Data Result diagrams: 01/11/22 14:32 01/11/22 14:32 Labs: Lab Results 01/11/22 01/11/22 01/11/22 Range/Units 14:32 14:32 14:32 WBC 10.7 (4.8-10.8) X10*3/uL RBC 3.35 L (4.20-5.50) X10*6/uL Hgb 9.0 L (12.0-16.0) g/dl Hct 28.8 L (37.0-47.0) % MCV 86.0 (80.0-98.0) fL MCH 26.9 L (27.0-33.0) pg MCHC 31.3 (31.0-35.0) g/dl RDW 13.5 (11.0-16.0) % Plt Count 313 (160-400) X10*3/uL MPV 10.6 (9.4-12.3) fL Immature Gran % (Auto) 0.5 H (0.0-0.4) % Neut % (Auto) 80.8 H (45-73) % Lymph % (Auto) 11.8 L (20-40) % [place] % (Auto) 6.4 (2-11) % Eos % (Auto) 0.3 (0-4) % Baso % (Auto) 0.2 (0-2) % Lymph # (Auto) 1.3 (1.2-4.9) X10*3/uL [place] # (Auto) 0.7 (0.1-1.2) X10*3/uL Eos # (Auto) 0.0 (0.0-0.4) X10*3/uL Baso # (Auto) 0.0 (0.0-0.2) X10*3/uL Abs Immat Gran (auto) 0.05 H (0.00-0.03) X10*3/uL Absolute Neuts (auto) 8.6 H (2.0-8.3) x10*3/uL Absolute Nucleated RBC 0.000 (0.0-0.012) X10*3/uL Nucleated RBC % (auto) 0.0 (0.0-0.2) /100WBC Sodium 129 L (135-145) mmol/L Potassium 4.9 (3.3-5.1) mmol/L Chloride 93 L (96-108) mmol/L Carbon Dioxide 30 H (22-29) mmol/L Anion Gap 11 L (12-20) BUN 13 (9-16) mg/dL Creatinine 1.15 (0.5-1.4) mg/dL Estim Creat Clear Calc 38.8 Estimated GFR 48 Random Glucose 508 H* (60-115) mg/dL Lactic Acid 1.5 (0.5-2.0) mmol/L Calcium 8.7 D (8.4-10.2) mg/dL Total Bilirubin 0.2 (0.0-1.0) mg/dL AST 4 L D (5-31) U/L ALT < 6 (0-31) U/L Alkaline Phosphatase 109 (39-117) U/L Total Protein 8.0 (6.5-8.0) g/dL Albumin 2.6 L (3.5-5.0) g/dL Acetone, Qual Negative (Negative) COVID-19 (SONG) (Negative) COVID-19 Clin Com 01/11/22 Range/Units 14:59 WBC (4.8-10.8) X10*3/uL RBC (4.20-5.50) X10*6/uL Hgb (12.0-16.0) g/dl Hct (37.0-47.0) % MCV (80.0-98.0) fL MCH (27.0-33.0) pg MCHC (31.0-35.0) g/dl RDW (11.0-16.0) % Plt Count (160-400) X10*3/uL MPV (9.4-12.3) fL Immature Gran % (Auto) (0.0-0.4) % Neut % (Auto) (45-73) % Lymph % (Auto) (20-40) % [place] % (Auto) (2-11) % Eos % (Auto) (0-4) % Baso % (Auto) (0-2) % Lymph # (Auto) (1.2-4.9) X10*3/uL [place] # (Auto) (0.1-1.2) X10*3/uL Eos # (Auto) (0.0-0.4) X10*3/uL Baso # (Auto) (0.0-0.2) X10*3/uL Abs Immat Gran (auto) (0.00-0.03) X10*3/uL Absolute Neuts (auto) (2.0-8.3) x10*3/uL Absolute Nucleated RBC (0.0-0.012) X10*3/uL Nucleated RBC % (auto) (0.0-0.2) /100WBC Sodium (135-145) mmol/L Potassium (3.3-5.1) mmol/L Chloride (96-108) mmol/L Carbon Dioxide (22-29) mmol/L Anion Gap (12-20) BUN (9-16) mg/dL Creatinine (0.5-1.4) mg/dL Estim Creat Clear Calc Estimated GFR Random Glucose (60-115) mg/dL Lactic Acid (0.5-2.0) mmol/L Calcium (8.4-10.2) mg/dL Total Bilirubin (0.0-1.0) mg/dL AST (5-31) U/L ALT (0-31) U/L Alkaline Phosphatase (39-117) U/L Total Protein (6.5-8.0) g/dL Albumin (3.5-5.0) g/dL Acetone, Qual (Negative) COVID-19 (SONG) Negative (Negative) COVID-19 Clin Com See Note Discharge Plan Discharge Clinical Impression: Diabetic foot ulcer, Cellulitis, Acute hyperglycemia, Charcot foot due to diabetes mellitus Patient Disposition: Admitted As Inpatient
[2022-01-11 13:10] VITALS: BP 153/68; PULSE 70; RESP 18; TEMP 35.9; O2SAT 98; BMI 25.2
[2022-01-11 14:50] LABS: MANUAL DIFF FLAG NO
[2022-01-11 14:57] LABS: Basophils Percent Auto 0.2 % (0-2); Eosinophils Percent Auto 0.3 % (0-4); Hematocrit 28.8 % (37.0-47.0); Imm Gran Abs Auto 0.05 X10*3/uL (0.00-0.03); Imm Gran Pct Auto 0.5 % (0.0-0.4); Lymphocytes Absolute Auto 1.3 X10*3/uL (1.2-4.9); Lymphocytes Percent Auto 11.8 % (20-40); Mean Corpuscular HGB Conc 31.3 g/dl (31.0-35.0); Mean Corpuscular Hemoglobin 26.9 pg (27.0-33.0); Mean Platelet Volume 10.6 fL (9.4-12.3); Monocytes Absolute Auto 0.7 X10*3/uL (0.1-1.2); Monocytes Percent Auto 6.4 % (2-11); Neutrophils Absolute Auto 8.6 x10*3/uL (2.0-8.3); Neutrophils Percent Auto 80.8 % (45-73); Platelet Count 313 X10*3/uL (160-400); Red Blood Count 3.35 X10*6/uL (4.20-5.50); Red Cell Distribution Width 13.5 % (11.0-16.0); White Blood Count 10.7 X10*3/uL (4.8-10.8)
[2022-01-11] MEDS: Morphine Sulfate 4 MG/ML CARTRIDGE IVPUSH (15:01)
[2022-01-11] MEDS: 0.9 % Sodium Chloride 1,000 ML 999 ML IV (15:02)
[2022-01-11] MEDS: cefEPime HCl 2 GM in 0.9 % Sodium Chloride 50 ML IV (15:02)
[2022-01-11 15:04] LABS: Lactic Acid 1.5 mmol/L (0.5-2.0)
[2022-01-11 15:17] LABS: Alanine Aminotransferase < 6 U/L (0-31); Albumin Level 2.6 g/dL (3.5-5.0); Alkaline Phosphatase 109 U/L (39-117); Anion Gap 11 (12-20); Aspartate Amino Transferase 4 U/L (5-31); Bilirubin Total 0.2 mg/dL (0.0-1.0); Blood Urea Nitrogen 13 mg/dL (9-16); Calcium 8.7 mg/dL (8.4-10.2); Carbon Dioxide 30 mmol/L (22-29); Chloride 93 mmol/L (96-108); Creatinine Clr Calc Pharmacy 38.8; Estimated Glomerular Filt Rate 48; Glucose Random 508 mg/dL (60-115); Potassium 4.9 mmol/L (3.3-5.1); Sodium 129 mmol/L (135-145)
[2022-01-11 15:26] LABS: COVID-19 Test Negative (Negative)
[2022-01-11] MEDS: vancomycin HCL 1,500 MG in 0.9 % Sodium Chloride 500 ML 333.33 MG IV (15:53)
[2022-01-11] MEDS: Insulin Regular, Human 100 UNIT/ML 3 ML VIAL 10 UNIT IVPUSH (16:12)
[2022-01-11 17:09] LABS: Acetone, serum QL Negative (Negative)
--- NOTE | 2022-01-11 17:51 | P.HPHOSP_ITS ---
History of Present Illness Date of Service: 01/11/22 Chief Complaint: pain in the foot, redness and drainage 62-year-old female with diabetes insulin dependent and not well controlled, hypertension, on meds, right? Charcot foot/joint With an ulcer at the right malleolus. She presents with increasing pain in the right foot, specifically at the right ankle are with an open wound with purulent drainage.. Xray shows Interval worsening of deformity around the right ankle joint and right hindfoot and midfoot regions consistent with severe Charcot disease. There is deformity, moderate soft tissue swelling, bone absorption with individual tarsal bones hard to identify. Blood sugar is 508 but without acidosis Review of Systems Review of Systems: Gen: no fever Resp: no sob, no cough CV: no chest, no MÉNDEZ, no leg edema GI: No n/v, no abd pain Neuro: No confusion MSK: right ankl pain Yes all other systems are reviewed and are negative [facility] Medical History Chronic prescription opiate use COPD (chronic obstructive pulmonary disease) Depression Diabetes mellitus Dyslipidemia Glaucoma New onset of congestive heart failure Pulmonary emboli Pulmonary nodule Tobacco dependence Family History Other CVA (cerebral vascular accident) Surgical History Cataract extraction status, left eye Cataract extraction status, right eye Hx of cholecystectomy Social History Household Members: Spouse Housing: House Housing Other:: hotel Do you presently have visiting nurse or other home services: No Alcohol intake: never Patient Tobacco Use Status: Current everyday Tobacco user Tobacco use type: Cigarette Cigarette Packs Per Day: 0.5 Cigarettes Per Day: 10.0 Years Smoked: 45 e-Cigarette/Vaping Use: Currently Using Second Hand Smoke Exposure: No Substance Use Type: Heroin Advance Directives: Yes Advance Directives Information Provided: Yes Advance Directives on File: No Advance Directives Date on File: 12/26/20 service: No (hx on methadone) Current occupational status: disabled Meds Allergies Allergy/AdvReac Type Severity Reaction Status Date / Time No Known Allergies Allergy Verified 11/19/21 14:53 Home Medications Medication Instructions Recorded Confirmed Last Taken Type albuterol sulfate 90 mcg/actuation 2 puff PO Q4H PRN Respiratory 04/24/20 01/11/22 06/03/21 History aerosol inhaler Distress aspirin 81 mg tablet,delayed 81 mg PO DAILY 04/24/20 01/11/22 06/03/21 History release atorvastatin 40 mg tablet 40 mg PO DAILY 04/24/20 01/11/22 06/03/21 History bupropion HCl 150 mg tablet,12 hr 150 mg PO BID 04/24/20 01/11/22 06/03/21 History sustained-release cholecalciferol (vitamin D3) 50 50 mcg PO DAILY 04/24/20 01/11/22 06/03/21 Histo ry mcg (2,000 unit) tablet lancets 33 gauge #100 ea 04/24/20 06/04/21 06/03/21 History lisinopril 10 mg tablet 10 mg PO DAILY 04/24/20 01/11/22 06/03/21 History metformin 1,000 mg tablet 1,000 mg PO BIDWMEAL 04/24/20 01/11/22 06/03/21 History omeprazole 20 mg capsule,delayed 20 mg PO DAILY 04/24/20 01/11/22 06/03/21 History release gabapentin 600 mg tablet 600 mg PO TID 05/03/20 01/11/22 06/03/21 History fluticasone propionate 110 2 puff inhalation BID 05/28/20 01/11/22 06/03/21 History mcg/actuation HFA aerosol inhaler (Flovent HFA) methadone 10 mg/mL oral 100 mg PO DAILY 05/28/20 01/12/22 06/04/21 History concentrate (Methadone Intensol) insulin aspart U-100 100 unit/mL See Rx Instructions .Route .COMPLEX 12/26/20 01/11/22 06/03/21 History (3 mL) subcutaneous pen (Novolog Flexpen U-100 Insulin aspart) insulin degludec 100 unit/mL (3 40 unit subcut BEDTIME 06/04/21 01/11/22 06/03/21 History mL) subcutaneous pen (Tresiba FlexTouch U-100 insulin) Physical Exam Vital Signs and Narrative: Vital Signs: Last Vital Signs Temp 96.7 F L 01/11/22 13:10 Pulse 70 01/11/22 13:10 Resp 18 01/11/22 13:10 BP 153/68 H 01/11/22 13:10 Pulse Ox 98 01/11/22 13:10 O2 Del Method 01/11/22 13:10 BMI result Body Mass Index 25.2 Const: Other: Constitutional: Alert, in no distress, overweight. Mental Status: Oriented to person, place and time. Eyes: Pupils are equal, round and reactive to light. Ear, Nose and Throat: Oropharynx clear, mucous membranes moist. Ears and nose without eformities. Trachea midline. Respiratory: Clear to auscultation. No wheezing, rales or rhonchi. Cardiovascular: S1 S2 regular. No murmurs, rubs or gallops. Gastrointestinal: Abdomen soft, non-tender, non-distended. Normal bowel sounds.? Neurologic: Cranial nerves II-XII grossly intact. No focal neurological deficits. Moves all extremities spontaneously.? Skin: deformity of right foot, drainage at right malleolous, swelling the foot, extending to leg--? Musculoskeletal: No cyanosis or clubbing. Psychiatric: Normal mood and affect? Results Labs CBC and Chem 7: 01/11/22 14:32 01/12/22 06:16 Labs: Laboratory Results - last 24 hr 01/11/22 01/11/22 01/11/22 14:32 14:32 14:32 MCV 86.0 MCH 26.9 L MCHC 31.3 RDW 13.5 Plt Count 313 MPV 10.6 Immature Gran % (Auto) 0.5 H Neut % (Auto) 80.8 H Lymph % (Auto) 11.8 L [place] % (Auto) 6.4 Eos % (Auto) 0.3 Baso % (Auto) 0.2 Lymph # (Auto) 1.3 [place] # (Auto) 0.7 Eos # (Auto) 0.0 Baso # (Auto) 0.0 Abs Immat Gran (auto) 0.05 H Absolute Neuts (auto) 8.6 H Absolute Nucleated RBC 0.000 Nucleated RBC % (auto) 0.0 Anion Gap 11 L Estim Creat Clear Calc 38.8 Estimated GFR 48 Random Glucose 508 H* Lactic Acid 1.5 Calcium 8.7 D Total Bilirubin 0.2 AST 4 L D ALT < 6 Alkaline Phosphatase 109 Total Protein 8.0 Albumin 2.6 L Acetone, Qual Negative COVID-19 (SONG) COVID-19 Clin Com 01/11/22 14:59 MCV MCH MCHC RDW Plt Count MPV Immature Gran % (Auto) Neut % (Auto) Lymph % (Auto) [place] % (Auto) Eos % (Auto) Baso % (Auto) Lymph # (Auto) [place] # (Auto) Eos # (Auto) Baso # (Auto) Abs Immat Gran (auto) Absolute Neuts (auto) Absolute Nucleated RBC Nucleated RBC % (auto) Anion Gap Estim Creat Clear Calc Estimated GFR Random Glucose Lactic Acid Calcium Total Bilirubin AST ALT Alkaline Phosphatase Total Protein Albumin Acetone, Qual COVID-19 (SONG) Negative COVID-19 Clin Com See Note Imaging Radiologist's Impressions: Impressions Ankle X-Ray 01/11/22 14:22 IMPRESSION: Interval worsening of deformity around the right ankle joint and right hindfoot and midfoot regions consistent with severe Charcot disease. There is deformity, moderate soft tissue swelling, bone absorption with individual tarsal bones hard to identify. Foot X-Ray 01/11/22 14:22 IMPRESSION: Interval worsening of deformity around the right ankle joint and right hindfoot and midfoot regions consistent with severe Charcot disease. There is deformity, moderate soft tissue swelling, bone absorption with individual tarsal bones hard to identify. Assessment and Plan (1) Cellulitis: Status: Acute (2) Charcot foot due to diabetes mellitus: Status: Acute (3) Diabetes mellitus: Status: Acute Plan 60-year-old female with diabetes Charcot's foot presented pain in the foot concern cellulitis and osteomyelitis 1/Right ankle charcoal join ulcer/ cellulitis, cannot rule osteomylitis - Continue IV antibiotics with vancomycin and Zosyn.? Id and Surgery consult.? MRI of the foot. 2/diabetes with hyperglycemia, IV, insulin and continue monitoring. diabetic diet. 3/hypertension continue meds following med rec 4/hyperlipidemia continue Lipitor 5/opioid dependence:? Continue methadone 6/GERD:? Omeprazole 7/depression continue Bupropion 8/DVT prophylaxis:? Lovenox Code: Full Admission to [facility] 2 at least 2 midnights for management of cellulitis and vigil spected osteomylitis Quality Stroke Does the patient have a stroke diagnosis?: No VTE Prior VTE?: No VTE Risk Level:: Medical - moderate - high VTE Device Contraindication: Treatment Not Indicated VTE Drug Contraindication: N/A - Med Ordered
[2022-01-11 17:55] LABS: Venous Blood Gas Refer to POC result
[2022-01-11 17:56] LABS: VBG Base Excess 3.1 mmol/L; VBG HCO3 28 mmol/L (22-26); VBG pCO2 44 mmHg; VBG pO2 65 mmHg
--- NOTE | 2022-01-11 18:23 | PHA.MEDREC ---
Pharmacy Consult ? Medication Reconciliation Pharmacy has reviewed the medication reconciliation completed by Aarti. There are no remarkable issues for provider's attention. RN still needs to contact methadone clinic for patient's methadone dose, if unreachable tonight due the time AM nurse will need to reach out. Ladonna Craig, PharmD
--- NOTE | 2022-01-11 18:49 | PHA.PROG ---
Admission Date/Time: January 11, 2022 18:12 Indication: Cellulitis, possible osteomylitis Weight in k.699 kg Adjusted body weight in Kg: N/A [place] body weight in Kg: N/A Obesity Dosing Indication % IBW: N/A Serum Creatinine - Last 168 Hours 01/11/22 14:32 Creatinine 1.15 Estimated CrCl and GFR - Last 168 Hours 01/11/22 14:32 Estim Creat Clear Calc 38.8 Estimated GFR 48 Vancomycin Loading Dose: 1500 mg (26.5 mg/kg) Current Vancomycin Dosing Regimen: 500 mg Q12H Date and Time for next Vancomycin Level to be drawn: 01/13/22 @ 0500 Pharmacist Comments on Vancomycin Plan: Patient has poor renal function with a CrCl of 38.3. Patient was given a loading dose of vancomycin 1500 mg given in the ED 01/11 @ 1553. Maintenance dose vancomcyin 500 mg Q12H to begin 01/12 @ 0700. Expected AUC 471 with a trough of 16.2. Maintenance dose is to started in 15 hours instead of 12 hours to allow some vancomcyin to clear as patient received a loading dose > 25 mg/kg and to allow for pharmacy to properly examine vancomcyin levels. Pharmacy will continue to monitor renal function daily Ladonna Craig PharmD Vancomycin dosing will take advantage of [employer] as a clinical decision support tool that uses Bayesian modeling to calculate individual patient's pharmacokinetic parameters and forecast the patient's drug concentration time course with the target goal AUC 24 range of 400 - 600 mg/L/hr.
--- NOTE | 2022-01-11 19:29 | P.CONGS_ITS ---
History of Present Illness Consult details Consult date: 01/11/22 Requesting physician: Leroy Espinoza Narrative: 62-year-old female patient returning with a right ankle abscess. She has a long history of diabetes mellitus and diabetic foot ulcers involving the plantar surface of the foot. She has undergone previous wound care treatments as well as debridement and vascular workup. Patient noted increased pain and drainage of pus from the back of the ankle with swelling extending up the leg. Foot x- ray in the emergency department revealed marked bone loss at the ankle with Charcot deformity. She is admitted to the hospitalist service for IV antibiotics and surgical consultation was requested for wound management. Review of Systems Constitutional: Constitutional: Reports chills, Denies fever(s), Denies headache(s) and Denies poor appetite ENT: Denies dizziness and Denies headache(s) Cardiovascular: Cardiovascular: Denies chest pain, Denies rapid heart rate, D enies palpitations and Denies slow heart rate Respiratory: Respiratory: Denies chest congestion, Denies cough, Denies pain on inspiration and Denies wheezing Gastrointestinal: Gastrointestinal: Denies abdominal pain, Denies bloating, Denies change in stool character, Denies constipation, Denies diarrhea, Denies nausea, Denies vomiting and Denies hematemesis Musculoskeletal: Musculoskeletal: Reports as per HPI, Denies back pain, Report s arthralgias, Reports joint swelling and Denies numbness Integumentary/Breasts: Skin/Breast: Denies change in pigmentation, Reports erythema, Denies rash, Reports skin swelling and Reports skin ulcer Neurologic: Reports system reviewed and no additional complaints, except as documented, Denies confusion, Denies dizziness, Denies headache(s), Denies numbness and Denies Sensory deficit (Neuro) Psychiatric: Psychiatric: Denies anxiety, Denies confusion and Denies depression Endocrine: Endocrine: Denies palpitations Hematologic/Lymphatic: Hematologic/Lymphatic: Denies easy bleeding, Denies easy bruising and Denies lymphadenopathy Allergic/Immunologic: Allergic/Immunologic: Denies wheezing PMFSH Past Medical History Medical History Chronic prescription opiate use COPD (chronic obstructive pulmonary disease) Depression Diabetes mellitus Dyslipidemia Glaucoma New onset of congestive heart failure Pulmonary emboli Pulmonary nodule Tobacco dependence Family History Family History Other CVA (cerebral vascular accident) Surgical History Surgical History Cataract extraction status, left eye Cataract extraction status, right eye Hx of cholecystectomy Social History Social History Household Members: Spouse Housing: House Housing Other:: hotel Do you presently have visiting nurse or other home services: No Alcohol intake: never Patient Tobacco Use Status: Current everyday Tobacco user Tobacco use type: Cigarette Cigarette Packs Per Day: 0.5 Cigarettes Per Day: 10.0 Years Smoked: 45 e-Cigarette/Vaping Use: Currently Using Second Hand Smoke Exposure: No Substance Use Type: Heroin Advance Directives: Yes Advance Directives Information Provided: Yes Advance Directives on File: No Advance Directives Date on File: 12/26/20 service: No (hx on methadone) Current occupational status: disabled Meds Allergies Allergy/AdvReac Type Severity Reaction Status Date / Time No Known Allergies Allergy Verified 11/19/21 14:53 Active Medications: Current Medications Enoxaparin Sodium (Enoxaparin Sodium 40 Mg/0.4 Ml Syringe) 40 mg SUBCUT Q24H [facility]CI[facility] Vancomycin HCl 500 mg/ Sodium (Chloride) 110 mls @ 110 mls/hr IV Q12H [facility] Insulin Human Lispro (Insulin Lispro 100 Unit/Ml 3 Ml Vial) 0 unit SUBCUT QIDACHS [facility]; Protocol Morphine Sulfate (Morphine Sulfate 2 Mg/Ml Cartridge) 2 mg IVPUSH Q4H PRN; Protocol PRN Reason: Pain, Severe (Pain Scale 7-10) Pharmacy Consult (Consult Rx Vancomycin Dosing) 1 each MISCELLANE DAILY PRN PRN Reason: Consult order Sodium Chloride (0.9 % Sodium Chloride Flush 3 Ml Syringe) 3 ml IVFLUSH QSHIFT [facility] Home Medications Medication Instructions Recorded Confirmed Last Taken Type albuterol sulfate 90 mcg/actuation 2 puff PO Q4H PRN Respiratory 04/24/20 01/11/22 06/03/21 History aerosol inhaler Distress aspirin 81 mg tablet,delayed 81 mg PO DAILY 04/24/20 01/11/22 06/03/21 History release atorvastatin 40 mg tablet 40 mg PO DAILY 04/24/20 01/11/22 06/03/21 History bupropion HCl 150 mg tablet,12 hr 150 mg PO BID 04/24/20 01/11/22 06/03/21 History sustained-release cholecalciferol (vitamin D3) 50 50 mcg PO DAILY 04/24/20 01/11/22 06/03/21 History mcg (2,000 unit) tablet lancets 33 gauge #100 ea 04/24/20 06/04/21 06/03/21 History lisinopril 10 mg tablet 10 mg PO DAILY 04/24/20 01/11/22 06/03/21 History metformin 1,000 mg tablet 1,000 mg PO BIDWMEAL 04/24/20 01/11/22 06/03/21 History omeprazole 20 mg capsule,delayed 20 mg PO DAILY 04/24/20 01/11/22 06/03/21 History release gabapentin 600 mg tablet 600 mg PO TID 05/03/20 01/11/22 06/03/21 History fluticasone propionate 110 2 puff inhalation BID 05/28/20 01/11/22 06/03/21 History mcg/actuation HFA aerosol inhaler (Flovent HFA) methadone 10 mg/mL oral 95 mg DAILY 05/28/20 06/04/21 06/04/21 History concentrate (Methadone Intensol) insulin aspart U-100 100 unit/mL See Rx Instructions .Route .COMPLEX 12/26/20 01/11/22 06/03/21 History (3 mL) subcutaneous pen (Novolog Flexpen U-100 Insulin aspart) insulin degludec 100 unit/mL (3 40 unit subcut BEDTIME 06/04/21 01/11/22 06/03/21 History mL) subcutaneous pen (Tresiba FlexTouch U-100 insulin) Physical Exam Vital Signs: Vital Signs: Last Vital Signs Temp 96.7 F L 01/11/22 13:10 Pulse 70 01/11/22 13:10 Resp 18 01/11/22 13:10 BP 153/68 H 01/11/22 13:10 Pulse Ox 98 01/11/22 13:10 O2 Del Method 01/11/22 13:10 BMI result Body Mass Index 25.2 Const: General: No confusion Orientation/consciousness: No confusion Resp: Other: breathing comfortably on room air, no apparent respiratory distress, no cough no stridor Cardio: Other: regular rate and rhythm, no JVD GI: Other: soft and nondistended, Skin: Other: warm and dry, no rash Neuro: General: No confusion Sensory Exam: No Sensory deficit (Neuro) Extrem: Other: right foot with marked swelling and deformity with ulceration in the posterior and lateral ankle. Purulent discharge is noted. There is no mobility within the ankle. Brawny edema is noted extending up the calf as well. Foot is rotated inward due to the deformity. Results Labs Result diagrams: 01/11/22 14:32 01/11/22 14:32 Labs: Abnormal lab results 01/11/22 01/11/22 01/11/22 Range/Units 14:32 14:32 17:52 RBC 3.35 L (4.20-5.50) X10*6/uL Hgb 9.0 L (12.0-16.0) g/dl Hct 28.8 L (37.0-47.0) % MCH 26.9 L (27.0-33.0) pg Immature Gran % (Auto) 0.5 H (0.0-0.4) % Neut % (Auto) 80.8 H (45-73) % Lymph % (Auto) 11.8 L (20-40) % Abs Immat Gran (auto) 0.05 H (0.00-0.03) X10*3/uL Absolute Neuts (auto) 8.6 H (2.0-8.3) x10*3/uL VBG HCO3 28 H (22-26) mmol/L Sodium 129 L (135-145) mmol/L Chloride 93 L (96-108) mmol/L Carbon Dioxide 30 H (22-29) mmol/L Anion Gap 11 L (12-20) Random Glucose 508 H* (60-115) mg/dL AST 4 L D (5-31) U/L Albumin 2.6 L (3.5-5.0) g/dL Short CBC 01/11/22 Range/Units 14:32 WBC 10.7 (4.8-10.8) X10*3/uL Hgb 9.0 L (12.0-16.0) g/dl Hct 28.8 L (37.0-47.0) % Plt Count 313 (160-400) X10*3/uL BMP 01/11/22 14:32 Sodium 129 L Potassium 4.9 Chloride 93 L Carbon Dioxide 30 H BUN 13 Creatinine 1.15 Calcium 8.7 D Liver Function 01/11/22 Range/Units 14:32 Total Bilirubin 0.2 (0.0-1.0) mg/dL AST 4 L D (5-31) U/L ALT < 6 (0-31) U/L Alkaline Phosphatase 109 (39-117) U/L Albumin 2.6 L (3.5-5.0) g/dL All other labs normal. Assessment and Plan (1) Charcot foot due to diabetes mellitus: Status: Acute (2) Diabetic foot ulcer: Status: Acute Plan Patient has severe chronic deformity of the right foot with an extensive abscess involving the ankle and cellulitis extending up leg. Wounds are unlikely to heal with continued wound care and IV antibiotics. Recommend continuing IV antibiotics to decrease the cellulitis in the calf. Patient will probably need below-knee amputation once the erythema improves. Discussed with patient and she is willing to proceed. Will discuss with Dr. Espinoza. Procedures Date of Service Date of Service: 01/11/22
[2022-01-11] MEDS: Enoxaparin Sodium 40 MG/0.4 ML SYRINGE SUBCUT (19:32)
[2022-01-11] MEDS: 0.9 % Sodium Chloride 250 ML 999 ML IV (19:33)
[2022-01-11 21:08] LABS: Glucose, Whole Blood 213 mg/dL (60-115)
[2022-01-11 21:17] VITALS: BP 146/54; PULSE 68; RESP 18; TEMP 37.1; O2SAT 100
[2022-01-11 21:24] LABS: Appearance Urine CLEAR; Color Urine YELLOW; Glucose Urine UA >=1000 MG/DL (NEG); Leukocyte Esterase Urine NEG (NEG); Nitrite Urine NEG (NEG); PH 5.5 (5.0-8.0); Specific Gravity - Urine 1.015 (1.005-1.025); UACC Culture Trigger NO; Urine Blood TRACE (NEG); Urine Ketones NEG (NEG); Urine Protein TRACE MG/DL (NEG-TRACE)
[2022-01-11 21:35] LABS: Bacteria Urine 1+ /LPF; RBC Urine 0-2 /HPF (0); Squamous Epithelial Cell Urine 1+ /LPF; WBC Urine 0 /HPF (0-4)
[2022-01-11] MEDS: Insulin Lispro 100 UNIT/ML 3 ML VIAL SUBCUT (22:19)
--- NOTE | 2022-01-11 23:39 | P.CNID_ITS ---
History of Present Illness Data of Consult Service Date: 01/11/22 Requesting physician: Leroy Espinoza Primary Care Provider: Unknown Physician HPI Reason for consult: right foot infection PMFSH Past Medical History Medical History Chronic prescription opiate use COPD (chronic obstructive pulmonary disease) Depression Diabetes mellitus Dyslipidemia Glaucoma New onset of congestive heart failure Pulmonary emboli Pulmonary nodule Tobacco dependence Family History Family History Other CVA (cerebral vascular accident) Surgical History Surgical History Cataract extraction status, left eye Cataract extraction status, right eye Hx of cholecystectomy Social History Social History Household Members: Spouse Housing: House Housing Other:: hotel Do you presently have visiting nurse or other home services: No Alcohol intake: never Patient Tobacco Use Status: Current everyday Tobacco user Tobacco use type: Cigarette Cigarette Packs Per Day: 0.5 Cigarettes Per Day: 10.0 Years Smoked: 45 e-Cigarette/Vaping Use: Currently Using Second Hand Smoke Exposure: No Substance Use Type: Heroin Advance Directives: Yes Advance Directives Information Provided: Yes Advance Directives on File: No Advance Directives Date on File: 12/26/20 service: No (hx on methadone) Current occupational status: disabled Meds Allergies Allergy/AdvReac Type Severity Reaction Status Date / Time No Known Allergies Allergy Verified 11/19/21 14:53 Active Medications: Current Medications Enoxaparin Sodium (Enoxaparin Sodium 40 Mg/0.4 Ml Syringe) 40 mg SUBCUT Q24H PRECIOUS Last Admin: 01/11/22 19:32 Dose: 40 mg Vancomycin HCl 500 mg/ Sodium (Chloride) 110 mls @ 110 mls/hr IV Q12H [facility] Insulin Human Lispro (Insulin Lispro 100 Unit/Ml 3 Ml Vial) 0 unit SUBCUT QIDACHS [facility]; Protocol Last Admin: 01/11/22 22:19 Dose: 4 unit Morphine Sulfate (Morphine Sulfate 2 Mg/Ml Cartridge) 2 mg IVPUSH Q4H PRN; Protocol PRN Reason: Pain, Severe (Pain Scale 7-10) Pharmacy Consult (Consult Rx Vancomycin Dosing) 1 each MISCELLANE DAILY PRN PRN Reason: Consult order Sodium Chloride (0.9 % Sodium Chloride Flush 3 Ml Syringe) 3 ml IVFLUSH [facility] Home Medications Medication Instructions Recorded Confirmed Last Taken Type albuterol sulfate 90 mcg/actuation 2 puff PO Q4H PRN Respiratory 04/24/20 01/11/22 06/03/21 History aerosol inhaler Distress aspirin 81 mg tablet,delayed 81 mg PO DAILY 04/24/20 01/11/22 06/03/21 History release atorvastatin 40 mg tablet 40 mg PO DAILY 04/24/20 01/11/22 06/03/21 History bupropion HCl 150 mg tablet,12 hr 150 mg PO BID 04/24/20 01/11/22 06/03/21 History sustained-release cholecalciferol (vitamin D3) 50 50 mcg PO DAILY 04/24/20 01/11/22 06/03/21 History mcg (2,000 unit) tablet lancets 33 gauge #100 ea 04/24/20 06/04/21 06/03/21 History lisinopril 10 mg tablet 10 mg PO DAILY 04/24/20 01/11/22 06/03/21 History metformin 1,000 mg tablet 1,000 mg PO BIDWMEAL 04/24/20 01/11/22 06/03/21 History omeprazole 20 mg capsule,delayed 20 mg PO DAILY 04/24/20 01/11/22 06/03/21 History release gabapentin 600 mg tablet 600 mg PO TID 05/03/20 01/11/22 06/03/21 History fluticasone propionate 110 2 puff inhalation BID 05/28/20 01/11/22 06/03/21 History mcg/actuation HFA aerosol inhaler (Flovent HFA) methadone 10 mg/mL oral 95 mg DAILY 05/28/20 06/04/21 06/04/21 History concentrate (Methadone Intensol) insulin aspart U-100 100 unit/mL See Rx Instructions .Route .COMPLEX 12/26/20 01/11/22 06/03/21 History (3 mL) subcutaneous pen (Novolog Flexpen U-100 Insulin aspart) insulin degludec 100 unit/mL (3 40 unit subcut BEDTIME 06/04/21 01/11/22 06/03/21 History mL) subcutaneous pen (Tresiba FlexTouch U-100 insulin) Physical Exam Vital Signs: Vital Signs: Last Vital Signs Temp 98.7 F 01/11/22 21:17 Pulse 68 01/11/22 21:17 Resp 18 01/11/22 21:17 BP 146/54 H 01/11/22 21:17 Pulse Ox 100 01/11/22 21:17 O2 Del Method 01/11/22 21:17 BMI result Body Mass Index 25.2 Results Labs CBC & Chem 7: 01/11/22 14:32 01/11/22 14:32 Labs: Short CBC 01/11/22 Range/Units 14:32 WBC 10.7 (4.8-10.8) X10*3/uL Hgb 9.0 L (12.0-16.0) g/dl Hct 28.8 L (37.0-47.0) % Plt Count 313 (160-400) X10*3/uL BMP 01/11/22 14:32 Sodium 129 L Potassium 4.9 Chloride 93 L Carbon Dioxide 30 H BUN 13 Creatinine 1.15 Calcium 8.7 D Liver Function 01/11/22 Range/Units 14:32 Total Bilirubin 0.2 (0.0-1.0) mg/dL AST 4 L D (5-31) U/L ALT < 6 (0-31) U/L Alkaline Phosphatase 109 (39-117) U/L Albumin 2.6 L (3.5-5.0) g/dL Urine 01/11/22 Range/Units 21:15 Urine Color YELLOW Urine Appearance CLEAR Urine pH 5.5 (5.0-8.0) Ur Specific [place] 1.015 (1.005-1.025) Urine Protein TRACE (NEG-TRACE) MG/DL Urine Glucose (UA) >=1000 H (NEG) MG/DL
[2022-01-11 23:45] VITALS: BP 148/56; PULSE 68; RESP 18; O2SAT 100
--- NOTE | 2022-01-12 05:56 | PC.NURSE ---
Pt used bed banks, changed bed faustino and the faustino for the foot, it was still draining.
[2022-01-12 07:01] VITALS: BP 141/51; PULSE 62; RESP 16; TEMP 36.9; O2SAT 98
[2022-01-12 07:12] LABS: Glucose, Whole Blood 393 mg/dL (60-115)
[2022-01-12 07:23] LABS: Creatinine Clr Calc Pharmacy 54.6; Estimated Glomerular Filt Rate > 60
[2022-01-12] MEDS: vancomycin HCL 500 MG in 0.9 % Sodium Chloride 100 ML 110 MG IV ×2 (07:29→18:04)
[2022-01-12] MEDS: Insulin Lispro 100 UNIT/ML 3 ML VIAL SUBCUT ×4 (07:29→18:07)
[2022-01-12] MEDS: 0.9 % Sodium Chloride Flush 3 ML SYRINGE IVFLUSH ×3 (07:30→21:14)
--- NOTE | 2022-01-12 07:50 | PC.NURSE ---
Spoke with Amandeep at [facility] who reports pts last Methadone dose was yesterday 03/12/22 at 1030am where she received 100mg.
--- NOTE | 2022-01-12 08:10 | PC.NURSE ---
pt POC 393 - TC sent to Dr. Espinoza regarding high POC, order to given 5 additional units of insulin on top of the 10u. awaiting orders in the computer. Dr. Bennett at bedside to see pt, plan for surgery tomorrow.
--- NOTE | 2022-01-12 08:15 | HE.PHANOTE ---
myesha martines will continue current dose for safety reasons. trough tomorrow 01/13@0500
--- NOTE | 2022-01-12 08:20 | P.PNGS_ITS ---
Subjective Subjective Date of Service: 01/12/22 Interval history: Continued right foot pain although of seems somewhat improved this morning. She continues to have purulent discharge. She feels the redness in the leg is improved however. Physical Exam Vital Signs: Vital Signs: Last Vital Signs Temp 98.5 F 01/12/22 07:01 Pulse 62 01/12/22 07:01 Resp 16 01/12/22 07:01 BP 141/51 H 01/12/22 07:01 Pulse Ox 98 01/12/22 07:01 O2 Del Method 01/12/22 07:01 BMI result Body Mass Index 25.2 Const: General: comfortable and no acute distress Nutritional Appearance: well nourished Orientation/consciousness: patient oriented x3 Resp: Effort & Inspection: normal respiratory effort, no audible wheezes, no cough and no respiratory distress GI: Inspection: Yes normal to inspection Neuro: General: patient oriented x3 Extrem: Other: Continued purulence discharge from the right foot posterior open wound. Overall the erythema is much improved extending to just above the ankle. Left foot is normal. Objective Data Active Medications Albuterol Sulfate (Albuterol Sulfate 90 Mcg 8 Gm Inhaler) 2 puff INHALE Q4H PRN PRN Reason: Respiratory Distress Aspirin (Aspirin Enteric Coated 81 Mg Tablet.) 81 mg PO DAILY [facility] Atorvastatin Calcium (Atorvastatin Calcium 40 Mg Tablet) 40 mg PO BEDTIME [facility] Enoxaparin Sodium (Enoxaparin Sodium 40 Mg/0.4 Ml Syringe) 40 mg SUBCUT Q24H [facility] Last Admin: 01/11/22 19:32 Dose: 40 mg Documented By: CHLOÉ Gabapentin (Gabapentin 600 Mg Tablet) 600 mg PO TID [facility] Vancomycin HCl 500 mg/ Sodium (Chloride) 110 mls @ 110 mls/hr IV Q12H [facility] Last Admin: 01/12/22 07:29 Dose: 110 mls/hr Documented By: CARLOS Insulin Human Lispro (Insulin Lispro 100 Unit/Ml 3 Ml Vial) 0 unit SUBCUT QIDACHS [facility]; Protocol Last Admin: 01/12/22 07:29 Dose: 10 unit Documented By: CARLOS Insulin Human Lispro (Insulin Lispro 100 Unit/Ml 3 Ml Vial) 5 unit SUBCUT QIDACHS [facility] Lisinopril (Lisinopril 10 Mg Tablet) 10 mg PO DAILY [facility]; Protocol Metformin HCl (Metformin Hcl 1,000 Mg Tablet) 1,000 mg PO BIDWM [facility] Methadone HCl (Methadone Hcl 20 Mg/2 Ml Oral.Conc) 100 mg PO DAILY [facility] Morphine Sulfate (Morphine Sulfate 2 Mg/Ml Cartridge) 2 mg IVPUSH Q4H PRN; Protocol PRN Reason: Pain, Severe (Pain Scale 7-10) Non-Formulary Medication (Bupropion Hcl) 150 mg PO BID [facility] Non-Formulary Medication (Fluticasone Propionate [Flovent Hfa]) 2 puff INHALE BID [facility] Non-Formulary Medication (Insulin Degludec [Tresiba Flextouch U-100]) 40 unit SUBCUT BEDTIME [facility] Omeprazole (Omeprazole 20 Mg Capsule.Dr) 20 mg PO DAILY@0630 [facility] Pharmacy Consult (Consult Rx Vancomycin Dosing) 1 each MISCELLANE DAILY PRN PRN Reason: Consult order Sodium Chloride (0.9 % Sodium Chloride Flush 3 Ml Syringe) 3 ml IVFLUSH QSHIFT [facility] Last Admin: 01/12/22 07:30 Dose: 3 ml Documented By: CARLOS Vitamin D (Cholecalciferol (Vitamin D3) 25 Mcg Tablet) 50 mcg PO DAILY [facility] Labs CBC & Chem 7: 01/11/22 14:32 01/12/22 06:16 Labs: Laboratory Results - last 24 hr 01/11/22 01/11/22 01/11/22 14:32 14:32 14:32 MCV 86.0 MCH 26.9 L MCHC 31.3 RDW 13.5 Plt Count 313 MPV 10.6 Immature Gran % (Auto) 0.5 H Neut % (Auto) 80.8 H Lymph % (Auto) 11.8 L [place] % (Auto) 6.4 Eos % (Auto) 0.3 Baso % (Auto) 0.2 Lymph # (Auto) 1.3 [place] # (Auto) 0.7 Eos # (Auto) 0.0 Baso # (Auto) 0.0 Abs Immat Gran (auto) 0.05 H Absolute Neuts (auto) 8.6 H Absolute Nucleated RBC 0.000 Nucleated RBC % (auto) 0.0 VBG pH VBG pCO2 VBG pO2 VBG HCO3 VBG O2 Saturation VBG Base Excess Anion Gap 11 L Estim Creat Clear Calc 38.8 Estimated GFR 48 POC Glucose Random Glucose 508 H* Lactic Acid 1.5 Calcium 8.7 D Total Bilirubin 0.2 AST 4 L D ALT < 6 Alkaline Phosphatase 109 Total Protein 8.0 Albumin 2.6 L Urine Color Urine Appearance Urine pH Ur Specific [place] Urine Protein Urine Glucose (UA) Urine Ketones Urine Blood Urine Nitrite Ur Leukocyte Esterase Urine RBC Urine WBC Ur Squamous Epith Cells Urine Bacteria Acetone, Qual Negative COVID-19 ([facility]) COVID-19 Clin Com 01/11/22 01/11/22 01/11/22 14:59 17:52 21:04 MCV MCH MCHC RDW Plt Count MPV Immature Gran % (Auto) Neut % (Auto) Lymph % (Auto) [place] % (Auto) Eos % (Auto) Baso % (Auto) Lymph # (Auto) [place] # (Auto) Eos # (Auto) Baso # (Auto) Abs Immat Gran (auto) Absolute Neuts (auto) Absolute Nucleated RBC Nucleated RBC % (auto) VBG pH 7.40 VBG pCO2 44 VBG pO2 65 VBG HCO3 28 H VBG O2 Saturation 92.0 VBG Base Excess 3.1 Anion Gap Estim Creat Clear Calc Estimated GFR POC Glucose 213 H Random Glucose Lactic Acid Calcium Total Bilirubin AST ALT Alkaline Phosphatase Total Protein Albumin Urine Color Urine Appearance Urine pH Ur Specific [place] Urine Protein Urine Glucose (UA) Urine Ketones Urine Blood Urine Nitrite Ur Leukocyte Esterase Urine RBC Urine WBC Ur Squamous Epith Cells Urine Bacteria Acetone, Qual COVID-19 ([facility]) Negative COVID-19 Clin Com See Note 01/11/22 01/12/22 01/12/22 21:15 06:16 07:00 MCV MCH MCHC RDW Plt Count MPV Immature Gran % (Auto) Neut % (Auto) Lymph % (Auto) [place] % (Auto) Eos % (Auto) Baso % (Auto) Lymph # (Auto) [place] # (Auto) Eos # (Auto) Baso # (Auto) Abs Immat Gran (auto) Absolute Neuts (auto) Absolute Nucleated RBC Nucleated RBC % (auto) VBG pH VBG pCO2 VBG pO2 VBG HCO3 VBG O2 Saturation VBG Base Excess Anion Gap Estim Creat Clear Calc 54.6 Estimated GFR > 60 POC Glucose 393 H* Random Glucose Lactic Acid Calcium Total Bilirubin AST ALT Alkaline Phosphatase Total Protein Albumin Urine Color YELLOW Urine Appearance CLEAR Urine pH 5.5 Ur Specific [place] 1.015 Urine Protein TRACE Urine Glucose (UA) >=1000 H Urine Ketones NEG Urine Blood TRACE Urine Nitrite NEG Ur Leukocyte Esterase NEG Urine RBC 0-2 Urine WBC 0 Ur Squamous Epith Cells 1+ Urine Bacteria 1+ Acetone, Qual COVID-19 ([facility]) COVID-19 Clin Com Microbiology Microbiology Results: Microbiology 01/11/22 17:46 Gram Stain - Final Foot Right Procedures Date of Service Date of Service: 01/12/22 Progress Note: A&P Assessment and plan (1) Charcot foot due to diabetes mellitus: Status: Acute (2) Osteomyelitis of ankle: Status: Acute Plan Patient with severe destruction of the right ankle with bone loss due to chronic infection. Wounds are unlikely to heal with antibiotics and patient be best served with an amputation (below-knee amputation). 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 She gives her consent for the surgery which will be placed on the add on schedule for tomorrow. Discussed with Dr. Espinoza. Time Spent With Patient Time: Total time spent is greater than 50% in coordination of care (as documented) at patient's floor/unit and/or counseling patient: Quality Stroke Does the patient have a stroke diagnosis?: No VTE Prior VTE?: No VTE Risk Level:: Medical - moderate - high VTE Device Contraindication: Treatment Not Indicated VTE Drug Contraindication: N/A - Med Ordered
[2022-01-12] MEDS: Morphine Sulfate 2 MG/ML CARTRIDGE IVPUSH (08:37)
[2022-01-12] MEDS: Gabapentin 600 MG TABLET PO ×3 (08:37→21:11)
[2022-01-12] MEDS: Cholecalciferol (Vitamin D3) 25 MCG TABLET 50 MCG PO (08:38)
[2022-01-12] MEDS: Aspirin Enteric Coated 81 MG TABLET.DR PO (08:38)
[2022-01-12] MEDS: lisinopriL 10 MG TABLET PO (08:38)
[2022-01-12] MEDS: Omeprazole 20 MG CAPSULE.DR PO (08:38)
[2022-01-12] MEDS: metFORMIN HCl 1,000 MG TABLET 1000 MG PO ×2 (08:38→17:59)
--- NOTE | 2022-01-12 08:46 | PC.NURSE ---
called pharmacy for missing med
[2022-01-12 09:29] VITALS: BP 136/64; PULSE 59; RESP 16; O2SAT 98
[2022-01-12] MEDS: methADONE HCl 20 MG/2 ML ORAL.CONC 100 MG PO (09:57)
--- NOTE | 2022-01-12 10:20 | HO.PM.IMPN ---
Subjective Subjective Date of Service: 01/12/22 Interval History: f/u on diabetic foot ulcer and likely osteomylitis interval history: persitant drainage for the right ankle, pain, swelling Review of Systems pain in the foot Physical Exam Vital Signs: Vital Signs: Last Vital Signs Temp 98.5 F 01/12/22 07:01 Pulse 59 01/12/22 09:29 Resp 16 01/12/22 09:29 BP 136/64 01/12/22 09:29 Pulse Ox 98 01/12/22 09:29 O2 Del Method 01/12/22 09:29 BMI result Body Mass Index 25.2 Const: Other: Constitutional: Alert, in no distress, overweight. Mental Status: Oriented to person, place and time. Respiratory: Clear to auscultation. No wheezing, rales or rhonchi. Cardiovascular: S1 S2 regular. No murmurs, rubs or gallops. Gastrointestinal: Abdomen soft, non-tender, non-distended. Normal bowel sounds.? Neurologic: Cranial nerves II-XII grossly intact. No focal neurological deficits. Moves all extremities spontaneously.? Skin: deformity of right foot, drainage at right malleolous, swelling the foot, extending to leg--? Musculoskeletal: No cyanosis or clubbing. Psychiatric: Normal mood and affect? Objective Data Active Medications Albuterol Sulfate (Albuterol Sulfate 90 Mcg 8 Gm Inhaler) 2 puff INHALE Q4H PRN PRN Reason: Respiratory Distress Aspirin (Aspirin Enteric Coated 81 Mg Tablet.) 81 mg PO DAILY [facility] Last Admin: 01/12/22 08:38 Dose: 81 mg Documented By: CARLOS Atorvastatin Calcium (Atorvastatin Calcium 40 Mg Tablet) 40 mg PO BEDTIME [facility] Bupropion HCl (Bupropion Hcl 75 Mg Tablet) 75 mg PO BID [facility] Enoxaparin Sodium (Enoxaparin Sodium 40 Mg/0.4 Ml Syringe) 40 mg SUBCUT Q24H [facility] Last Admin: 01/11/22 19:32 Dose: 40 mg Documented By: CHLOÉ Fluticasone Propionate (Fluticasone Propionate 100 Mcg Blst.W.Dev) 2 puff INHALE RBID [facility] Gabapentin (Gabapentin 600 Mg Tablet) 600 mg PO TID [facility] Last Admin: 01/12/22 08:37 Dose: 600 mg Documented By: CARLOS Vancomycin HCl 500 mg/ Sodium (Chloride) 110 mls @ 110 mls/hr IV Q12H [facility] Last Infusion: 01/12/22 09:09 Dose: 0 mls/hr Documented By: CARLOS Insulin Glargine (Insulin Glargine,Hum.Rec.Anlog 100 Unit/Ml 10 Ml Vial) 25 unit SUBCUT BEDTIME [facility] Insulin Human Lispro (Insulin Lispro 100 Unit/Ml 3 Ml Vial) 0 unit SUBCUT QIDACHS [facility]; Protocol Last Admin: 01/12/22 07:29 Dose: 10 unit Documented By: CARLOS Insulin Human Lispro (Insulin Lispro 100 Unit/Ml 3 Ml Vial) 5 unit SUBCUT QIDACHS [facility] Lisinopril (Lisinopril 10 Mg Tablet) 10 mg PO DAILY [facility]; Protocol Last Admin: 01/12/22 08:38 Dose: 10 mg Documented By: CARLOS Metformin HCl (Metformin Hcl 1,000 Mg Tablet) 1,000 mg PO BIDWM [facility] Last Admin: 01/12/22 08:38 Dose: 1,000 mg Documented By: CARLOS Methadone HCl (Methadone Hcl 20 Mg/2 Ml Oral.Conc) 100 mg PO DAILY [facility] Last Admin: 01/12/22 09:57 Dose: 100 mg Documented By: CARLOS Morphine Sulfate (Morphine Sulfate 2 Mg/Ml Cartridge) 2 mg IVPUSH Q4H PRN; Protocol PRN Reason: Pain, Severe (Pain Scale 7-10) Last Admin: 01/12/22 08:37 Dose: 2 mg Documented By: CARLOS Omeprazole (Omeprazole 20 Mg Capsule.Dr) 20 mg PO DAILY@0630 [facility] Last Admin: 01/12/22 08:38 Dose: 20 mg Documented By: CARLOS Pharmacy Consult (Consult Rx Vancomycin Dosing) 1 each MISCELLANE DAILY PRN PRN Reason: Consult order Sodium Chloride (0.9 % Sodium Chloride Flush 3 Ml Syringe) 3 ml IVFLUSH QSHIFT [facility] Last Admin: 01/12/22 07:30 Dose: 3 ml Documented By: CARLOS Vitamin D (Cholecalciferol (Vitamin D3) 25 Mcg Tablet) 50 mcg PO DAILY [facility] Last Admin: 01/12/22 08:38 Dose: 50 mcg Documented By: CARLOS Labs CBC & Chem 7: 01/11/22 14:32 01/12/22 06:16 Labs: Laboratory Results - last 24 hr 01/11/22 01/11/22 01/11/22 14:32 14:32 14:32 MCV 86.0 MCH 26.9 L MCHC 31.3 RDW 13.5 Plt Count 313 MPV 10.6 Immature Gran % (Auto) 0.5 H Neut % (Auto) 80.8 H Lymph % (Auto) 11.8 L K[place]haw % (Auto) 6.4 Eos % (Auto) 0.3 Baso % (Auto) 0.2 Lymph # (Auto) 1.3 [place]haw # (Auto) 0.7 Eos # (Auto) 0.0 Baso # (Auto) 0.0 Abs Immat Gran (auto) 0.05 H Absolute Neuts (auto) 8.6 H Absolute Nucleated RBC 0.000 Nucleated RBC % (auto) 0.0 VBG pH VBG pCO2 VBG pO2 VBG HCO3 VBG O2 Saturation VBG Base Excess Anion Gap 11 L Estim Creat Clear Calc 38.8 Estimated GFR 48 POC Glucose Random Glucose 508 H* Lactic Acid 1.5 Calcium 8.7 D Total Bilirubin 0.2 AST 4 L D ALT < 6 Alkaline Phosphatase 109 Total Protein 8.0 Albumin 2.6 L Urine Color Urine Appearance Urine pH Ur Specific Edison Urine Protein Urine Glucose (UA) Urine Ketones Urine Blood Urine Nitrite Ur Leukocyte Esterase Urine RBC Urine WBC Ur Squamous Epith Cells Urine Bacteria Acetone, Qual Negative COVID-19 ([facility]) COVID-19 Clin Com 01/11/22 01/11/22 01/11/22 14:59 17:52 21:04 MCV MCH MCHC RDW Plt Count MPV Immature Gran % (Auto) Neut % (Auto) Lymph % (Auto) [place]haw % (Auto) Eos % (Auto) Baso % (Auto) Lymph # (Auto) [place] # (Auto) Eos # (Auto) Baso # (Auto) Abs Immat Gran (auto) Absolute Neuts (auto) Absolute Nucleated RBC Nucleated RBC % (auto) VBG pH 7.40 VBG pCO2 44 VBG pO2 65 VBG HCO3 28 H VBG O2 Saturation 92.0 VBG Base Excess 3.1 Anion Gap Estim Creat Clear Calc Estimated GFR POC Glucose 213 H Random Glucose Lactic Acid Calcium Total Bilirubin AST ALT Alkaline Phosphatase Total Protein Albumin Urine Color Urine Appearance Urine pH Ur Specific Edison Urine Protein Urine Glucose (UA) Urine Ketones Urine Blood Urine Nitrite Ur Leukocyte Esterase Urine RBC Urine WBC Ur Squamous Epith Cells Urine Bacteria Acetone, Qual COVID-19 (SONG) Negative COVID-19 Clin Com See Note 01/11/22 01/12/22 01/12/22 21:15 06:16 07:00 MCV MCH MCHC RDW Plt Count MPV Immature Gran % (Auto) Neut % (Auto) Lymph % (Auto) [place] % (Auto) Eos % (Auto) Baso % (Auto) Lymph # (Auto) [place] # (Auto) Eos # (Auto) Baso # (Auto) Abs Immat Gran (auto) Absolute Neuts (auto) Absolute Nucleated RBC Nucleated RBC % (auto) VBG pH VBG pCO2 VBG pO2 VBG HCO3 VBG O2 Saturation VBG Base Excess Anion Gap Estim Creat Clear Calc 54.6 Estimated GFR > 60 POC Glucose 393 H* Random Glucose Lactic Acid Calcium Total Bilirubin AST ALT Alkaline Phosphatase Total Protein Albumin Urine Color YELLOW Urine Appearance CLEAR Urine pH 5.5 Ur Specific Edison 1.015 Urine Protein TRACE Urine Glucose (UA) >=1000 H Urine Ketones NEG Urine Blood TRACE Urine Nitrite NEG Ur Leukocyte Esterase NEG Urine RBC 0-2 Urine WBC 0 Ur Squamous Epith Cells 1+ Urine Bacteria 1+ Acetone, Qual COVID-19 ([facility]) COVID-19 Clin Com Microbiology Microbiology Results: Microbiology 01/11/22 17:46 Gram Stain - Final Foot Right Assessment and Plan (1) Pneumonia due to COVID-19 virus: Status: Resolved (2) Acute respiratory failure with hypoxia: Status: Resolved Plan 60-year-old female with diabetes Charcot's foot presented pain in the foot concern cellulitis and osteomyelitis 1/Right ankle charcoal join destructive ulcer/ cellulitis, cannot rule osteomylitis--low likelyhood of healing with Abx - Continue IV antibiotics with vancomycin for now.? I agree with surgery with amputation which has been discussed in the past, patient is agreable and will be done tomorrow -morphine for pain 2/diabetes with hyperglycemia, Metformin, pre meal insulin, SSI, Lantus and continue monitoring.? diabetic diet. 3/hypertension continue Lisinopril 4/hyperlipidemia continue Lipitor 5/opioid dependence:? Continue methadone 6/GERD:? Omeprazole 7/depression continue Bupropion 8/DVT prophylaxis:? Lovenox Need for inaptient: Diabetic foot ulcer that needs ampuation planned for 01/13 Quality Stroke Does the patient have a stroke diagnosis?: No VTE Prior VTE?: No VTE Risk Level:: Medical - moderate - high VTE Device Contraindication: Treatment Not Indicated VTE Drug Contraindication: N/A - Med Ordered
[2022-01-12] MEDS: buPROPion HCL 75 MG TABLET PO ×2 (10:28→21:11)
[2022-01-12 11:01] VITALS: BP 139/92; PULSE 57; RESP 19; TEMP 36.7; O2SAT 100
[2022-01-12 13:53] LABS: Glucose, Whole Blood 284 mg/dL (60-115)
[2022-01-12 14:13] VITALS: BP 150/61; PULSE 56; RESP 16; O2SAT 100
[2022-01-12] MEDS: Enoxaparin Sodium 40 MG/0.4 ML SYRINGE SUBCUT (17:59)
[2022-01-12 18:03] LABS: Glucose, Whole Blood 154 mg/dL (60-115)
[2022-01-12 20:17] LABS: Glucose, Whole Blood 75 mg/dL (60-115)
[2022-01-12] MEDS: Atorvastatin Calcium 40 MG TABLET PO (21:11)
[2022-01-12 23:19] VITALS: BP 124/63; PULSE 77; RESP 16; TEMP 36.1; O2SAT 100
[2022-01-13] VITALS (31 sets, daily range): BP systolic 117–194; BP diastolic 62–116; PULSE 61–85; RESP 12–20; TEMP 36–37.1; O2SAT 98–100
[2022-01-13] MEDS: Omeprazole 20 MG CAPSULE.DR PO (06:17)
[2022-01-13] MEDS: Lactated Ringers 1,000 ML 100 ML IVCONT ×2 (06:17→17:53)
[2022-01-13 06:29] LABS: Vancomycin Trough 14.3 mcg/mL (10.0-20.0)
[2022-01-13 06:30] LABS: Estimated Glomerular Filt Rate > 60
--- NOTE | 2022-01-13 06:35 | HE.PHANOTE ---
SUN BAKER, CONTINUE CURRENT DOSE, NEXT TROUGH SCHEDULED FOR 01/14 @1700
[2022-01-13] MEDS: vancomycin HCL 500 MG in 0.9 % Sodium Chloride 100 ML 110 MG IV ×2 (06:49→18:57)
[2022-01-13 07:35] LABS: Glucose, Whole Blood 234 mg/dL (60-115)
[2022-01-13] MEDS: Morphine Sulfate 2 MG/ML CARTRIDGE IVPUSH ×2 (07:55→17:52)
[2022-01-13] MEDS: buPROPion HCL 75 MG TABLET PO ×2 (07:56→22:41)
[2022-01-13] MEDS: Cholecalciferol (Vitamin D3) 25 MCG TABLET 50 MCG PO (07:56)
[2022-01-13] MEDS: Gabapentin 600 MG TABLET PO ×2 (07:56→22:41)
[2022-01-13] MEDS: Aspirin Enteric Coated 81 MG TABLET.DR PO (07:56)
[2022-01-13] MEDS: metFORMIN HCl 1,000 MG TABLET 1000 MG PO ×2 (07:56→18:00)
[2022-01-13] MEDS: lisinopriL 10 MG TABLET PO (07:56)
[2022-01-13] MEDS: methADONE HCl 20 MG/2 ML ORAL.CONC 100 MG PO (07:57)
--- NOTE | 2022-01-13 08:41 | P.PNIM_ITS ---
Subjective Subjective Date of Service: 01/13/22 Interval History: f/u on diabetic foot ulcer and likely osteomylitis interval history: No change in drainage, pain is controlled with IV morphine Review of Systems pain in the foot Physical Exam Vital Signs: Vital Signs: Last Vital Signs Temp 98.1 F 01/13/22 07:19 Pulse 65 01/13/22 07:19 Resp 18 01/13/22 07:19 BP 152/80 H 01/13/22 07:19 Pulse Ox 98 01/13/22 07:19 O2 Del Method 01/13/22 07:19 BMI result Body Mass Index 25.2 Const: Other: Constitutional: Alert, in no distress, overweight. Mental Status: Oriented to person, place and time. Respiratory: Clear to auscultation. No wheezing, rales or rhonchi. Cardiovascular: S1 S2 regular. No murmurs, rubs or gallops. Gastrointestinal: Abdomen soft, non-tender, non-distended. Normal bowel sounds.? Neurologic: Cranial nerves II-XII grossly intact. No focal neurological deficits. Moves all extremities spontaneously.? Skin: deformity of right foot, drainage at right malleolous, swelling the foot, extending to leg--? Musculoskeletal: No cyanosis or clubbing. Psychiatric: Normal mood and affect? Objective Data Active Medications Albuterol Sulfate (Albuterol Sulfate 90 Mcg 8 Gm Inhaler) 2 puff INHALE Q4H PRN PRN Reason: Respiratory Distress Aspirin (Aspirin Enteric Coated 81 Mg Tablet.) 81 mg PO DAILY [facility] Last Admin: 01/13/22 07:56 Dose: 81 mg Documented By: KYRA Atorvastatin Calcium (Atorvastatin Calcium 40 Mg Tablet) 40 mg PO BEDTIME [facility] Last Admin: 01/12/22 21:11 Dose: 40 mg Documented By: MARKEL Bupropion HCl (Bupropion Hcl 75 Mg Tablet) 75 mg PO BID [facility] Last Admin: 01/13/22 07:56 Dose: 75 mg Documented By: KYRA Enoxaparin Sodium (Enoxaparin Sodium 40 Mg/0.4 Ml Syringe) 40 mg SUBCUT Q24H [facility] Last Admin: 01/12/22 17:59 Dose: 40 mg Documented By: MARTI Fluticasone Propionate (Fluticasone Propionate 100 Mcg Blst.W.Dev) 2 puff INHALE RBID [facility] Last Admin: 01/12/22 19:53 Dose: Not Given Documented By: BUBBA Non-Admin Reason: Med Not Available Gabapentin (Gabapentin 600 Mg Tablet) 600 mg PO TID [facility] Last Admin: 01/13/22 07:56 Dose: 600 mg Documented By: KYRA Vancomycin HCl 500 mg/ Sodium (Chloride) 110 mls @ 110 mls/hr IV Q12H [facility] Last Infusion: 01/13/22 07:57 Dose: 0 mls/hr Documented By: KYRA Lactated Ringer's (Lr) 1,000 mls @ 100 mls/hr IVCONT .Q10H [facility] Last Admin: 01/13/22 06:17 Dose: 100 mls/hr Documented By: MARKEL Insulin Glargine (Insulin Glargine,Hum.Rec.Anlog 100 Unit/Ml 10 Ml Vial) 25 unit SUBCUT BEDTIME [facility] Last Admin: 01/12/22 21:12 Dose: Not Given Documented By: MARKEL Non-Admin Reason: No Insulin Coverage Insulin Human Lispro (Insulin Lispro 100 Unit/Ml 3 Ml Vial) 0 unit SUBCUT QIDACHS [facility]; Protocol Last Admin: 01/13/22 07:43 Dose: Not Given Documented By: KYRA Non-Admin Reason: NPO Insulin Human Lispro (Insulin Lispro 100 Unit/Ml 3 Ml Vial) 5 unit SUBCUT QIDACHS [facility] Last Admin: 01/13/22 07:43 Dose: Not Given Documented By: KYRA Non-Admin Reason: NPO Lisinopril (Lisinopril 10 Mg Tablet) 10 mg PO DAILY [facility]; Protocol Last Admin: 01/13/22 07:56 Dose: 10 mg Documented By: KYRA Metformin HCl (Metformin Hcl 1,000 Mg Tablet) 1,000 mg PO BIDWM [facility] Last Admin: 01/13/22 07:56 Dose: 1,000 mg Documented By: KYRA Methadone HCl (Methadone Hcl 20 Mg/2 Ml Oral.Conc) 100 mg PO DAILY [facility] Last Admin: 01/13/22 07:57 Dose: 100 mg Documented By: KYRA Morphine Sulfate (Morphine Sulfate 2 Mg/Ml Cartridge) 2 mg IVPUSH Q4H PRN; Pro tocol PRN Reason: Pain, Severe (Pain Scale 7-10) Last Admin: 01/13/22 07:55 Dose: 2 mg Documented By: KYRA Omeprazole (Omeprazole 20 Mg ) 20 mg PO DAILY@0630 [facility] Last Admin: 01/13/22 06:17 Dose: 20 mg Documented By: MARKEL Pharmacy Consult (Consult Rx Vancomycin Dosing) 1 each MISCELLANE DAILY PRN PRN Reason: Consult order Sodium Chloride (0.9 % Sodium Chloride Flush 3 Ml Syringe) 3 ml IVFLUSH QSHIFT [facility] Last Admin: 01/13/22 07:57 Dose: Not Given Documented By: KYRA Non-Admin Reason: IV Running Vitamin D (Cholecalciferol (Vitamin D3) 25 Mcg Tablet) 50 mcg PO DAILY [facility] Last Admin: 01/13/22 07:56 Dose: 50 mcg Documented By: KYRA Labs CBC & Chem 7: 01/11/22 14:32 01/13/22 05:08 Labs: Laboratory Results - last 24 hr 01/12/22 01/12/22 01/12/22 13:44 17:58 20:14 Estim Creat Clear Calc Estimated GFR POC Glucose 284 H 154 H 75 Vancomycin Trough 01/13/22 01/13/22 01/13/22 05:08 05:08 07:23 Estim Creat Clear Calc 52.0 Estimated GFR > 60 POC Glucose 234 H Vancomycin Trough 14.3 Microbiology Microbiology Results: Microbiology 01/11/22 17:46 Gram Stain - Final Foot Right Routine Culture - Preliminary Proteus mirabilis 01/11/22 14:59 Blood Culture - Preliminary Blood - Venous No growth after 24 hours. 01/11/22 14:32 Blood Culture - Preliminary Blood - Venous No growth after 24 hours. Assessment and Plan (1) Pneumonia due to COVID-19 virus: Status: Resolved (2) Acute respiratory failure with hypoxia: Status: Resolved Plan 60-year-old female with diabetes Charcot's foot presented pain in the foot concern cellulitis and osteomyelitis 1/Right ankle charcoal join destructive ulcer/ cellulitis, cannot rule osteomylitis--low likelyhood of healing with Abx - Continue IV antibiotics with vancomycin until after amputation. -BKA today by Dr. Bennett -IVmorphine for pain -No further testing indicating before surgery, at average risk 2/diabetes with hyperglycemia, hold Metformin, pre meal insulin, SSI, Lantus and continue monitoring.? diabetic diet. 3/hypertension continue Lisinopril 4/hyperlipidemia continue Lipitor 5/opioid dependence:? Continue methadone 6/GERD:? Omeprazole 7/depression continue Bupropion 8/DVT prophylaxis:? Lovenox Need for inaptient: Diabetic foot ulcer that needs ampuation planned for today 01/13 Quality Stroke Does the patient have a stroke diagnosis?: No VTE Prior VTE?: No VTE Risk Level:: Medical - moderate - high VTE Device Contraindication: Treatment Not Indicated VTE Drug Contraindication: N/A - Med Ordered
[2022-01-13 11:27] LABS: Glucose, Whole Blood 270 mg/dL (60-115)
--- NOTE | 2022-01-13 12:31 | P.CONAN_ITS ---
[facility] Active Problems Active Problems: All Active Problems (Updated 01/12/22 @ 08:22 by Giovany Bennett MD) Osteomyelitis of ankle (Acute) Cellulitis (Acute) Acute hyperglycemia (Acute) Charcot foot due to diabetes mellitus (Acute) Gastroenteritis (Acute) Gastritis (Acute) Constipation (Acute) Diabetic foot ulcer (Acute) COVID-19 (Acute) DKA (diabetic ketoacidoses) (Acute) PAD (peripheral artery disease) (Acute) Depression (Acute) Diabetes mellitus (Acute) Pulmonary nodule (Chronic) Tobacco dependence (Acute) COPD (chronic obstructive pulmonary disease) (Acute) Past Medical History Medical History Chronic prescription opiate use COPD (chronic obstructive pulmonary disease) Depression Diabetes mellitus Dyslipidemia Glaucoma New onset of congestive heart failure Pulmonary emboli Pulmonary nodule Tobacco dependence Family History Family History Other CVA (cerebral vascular accident) Surgical History Surgical History Cataract extraction status, left eye Cataract extraction status, right eye Hx of cholecystectomy History of Problems with Anesthesia: No Social History Social History Household Members: Spouse Housing: Apartment Housing Other:: hotel Do you presently have visiting nurse or other home services: No Unable to assess alcohol history related to: Unknown Alcohol intake: never Patient Tobacco Use Status: Current everyday Tobacco user Tobacco use type: Cigarette Cigarette Packs Per Day: 0.5 Cigarettes Per Day: 5 Years Smoked: 45 e-Cigarette/Vaping Use: Currently Using Second Hand Smoke Exposure: No Substance Use Type: Heroin Advance Directives Date on File: 01/12/22 service: No (hx on methadone) Current occupational status: disabled Meds Allergies Allergy/AdvReac Type Severity Reaction Status Date / Time No Known Allergies Allergy Verified 11/19/21 14:53 Active Medications: Current Medications Albuterol Sulfate (Albuterol Sulfate 90 Mcg 8 Gm Inhaler) 2 puff INHALE Q4H PRN PRN Reason: Respiratory Distress Aspirin (Aspirin Enteric Coated 81 Mg Tablet.) 81 mg PO DAILY PRECIOUS Last Admin: 01/13/22 07:56 Dose: 81 mg Atorvastatin Calcium (Atorvastatin Calcium 40 Mg Tablet) 40 mg PO BEDTIME PRECIOUS Last Admin: 01/12/22 21:11 Dose: 40 mg Bupropion HCl (Bupropion Hcl 75 Mg Tablet) 75 mg PO BID [facility] Last Admin: 01/13/22 07:56 Dose: 75 mg Enoxaparin Sodium (Enoxaparin Sodium 40 Mg/0.4 Ml Syringe) 40 mg SUBCUT Q24H [facility] Last Admin: 01/12/22 17:59 Dose: 40 mg Fluticasone Propionate (Fluticasone Propionate 100 Mcg Blst.W.Dev) 2 puff INHALE RBID [facility] Last Admin: 01/13/22 09:07 Dose: Not Given Gabapentin (Gabapentin 600 Mg Tablet) 600 mg PO TID [facility] Last Admin: 01/13/22 07:56 Dose: 600 mg Vancomycin HCl 500 mg/ Sodium (Chloride) 110 mls @ 110 mls/hr IV Q12H [facility] Last Infusion: 01/13/22 07:57 Dose: Infused Lactated Ringer's (Lr) 1,000 mls @ 100 mls/hr IVCONT .Q10H [facility] Last Admin: 01/13/22 06:17 Dose: 100 mls/hr Insulin Glargine (Insulin Glargine,Hum.Rec.Anlog 100 Unit/Ml 10 Ml Vial) 25 unit SUBCUT BEDTIME [facility] Last Admin: 01/12/22 21:12 Dose: Not Given Insulin Human Lispro (Insulin Lispro 100 Unit/Ml 3 Ml Vial) 0 unit SUBCUT QIDACHS [facility]; Protocol Last Admin: 01/13/22 11:27 Dose: Not Given Insulin Human Lispro (Insulin Lispro 100 Unit/Ml 3 Ml Vial) 5 unit SUBCUT QIDACHS [facility] Last Admin: 01/13/22 11:26 Dose: Not Given Lisinopril (Lisinopril 10 Mg Tablet) 10 mg PO DAILY [facility]; Protocol Last Admin: 01/13/22 07:56 Dose: 10 mg Metformin HCl (Metformin Hcl 1,000 Mg Tablet) 1,000 mg PO BIDWM [facility] Last Admin: 01/13/22 07:56 Dose: 1,000 mg Methadone HCl (Methadone Hcl 20 Mg/2 Ml Oral.Conc) 100 mg PO DAILY [facility] Last Admin: 01/13/22 07:57 Dose: 100 mg Morphine Sulfate (Morphine Sulfate 2 Mg/Ml Cartridge) 2 mg IVPUSH Q4H PRN; Protocol PRN Reason: Pain, Severe (Pain Scale 7-10) Last Admin: 01/13/22 07:55 Dose: 2 mg Omeprazole (Omeprazole 20 Mg Capsule.) 20 mg PO DAILY@0630 [facility] Last Admin: 01/13/22 06:17 Dose: 20 mg Pharmacy Consult (Consult Rx Vancomycin Dosing) 1 each MISCELLANE DAILY PRN PRN Reason: Consult order Sodium Chloride (0.9 % Sodium Chloride Flush 3 Ml Syringe) 3 ml IVFLUSH QSHIFT [facility] Last Admin: 01/13/22 07:57 Dose: Not Given Vitamin D (Cholecalciferol (Vitamin D3) 25 Mcg Tablet) 50 mcg PO DAILY [facility] Last Admin: 01/13/22 07:56 Dose: 50 mcg Home Medications Medication Instructions Recorded Confirmed Last Taken Type albuterol sulfate 90 mcg/actuation 2 puff PO Q4H PRN Respiratory 04/24/20 01/11/22 06/03/21 History aerosol inhaler Distress aspirin 81 mg tablet,delayed 81 mg PO DAILY 04/24/20 01/11/22 06/03/21 History release atorvastatin 40 mg tablet 40 mg PO DAILY 04/24/20 01/11/22 06/03/21 History bupropion HCl 150 mg tablet,12 hr 150 mg PO BID 04/24/20 01/11/22 06/03/21 History sustained-release cholecalciferol (vitamin D3) 50 50 mcg PO DAILY 04/24/20 01/11/22 06/03/21 History mcg (2,000 unit) tablet lancets 33 gauge #100 ea 04/24/20 06/04/21 06/03/21 History lisinopril 10 mg tablet 10 mg PO DAILY 04/24/20 01/11/22 06/03/21 History metformin 1,000 mg tablet 1,000 mg PO BIDWMEAL 04/24/20 01/11/22 06/03/21 History omeprazole 20 mg capsule,delayed 20 mg PO DAILY 04/24/20 01/11/22 06/03/21 History release gabapentin 600 mg tablet 600 mg PO TID 05/03/20 01/11/22 06/03/21 History fluticasone propionate 110 2 puff inhalation BID 05/28/20 01/11/22 06/03/21 History mcg/actuation HFA aerosol inhaler (Flovent HFA) methadone 10 mg/mL oral 100 mg PO DAILY 05/28/20 01/12/22 06/04/21 History concentrate (Methadone Intensol) insulin aspart U-100 100 unit/mL See Rx Instructions .Route .COMPLEX 12/26/20 01/11/22 06/03/21 History (3 mL) subcutaneous pen (Novolog Flexpen U-100 Insulin aspart) insulin degludec 100 unit/mL (3 40 unit subcut BEDTIME 06/04/21 01/11/22 06/03/21 History mL) subcutaneous pen (Tresiba FlexTouch U-100 insulin) Exam Exam Date and Time: January 13, 2022 1231 Height,Weight and Vital Signs: Height 4 ft 11 in Weight 56.699 kg Last Vital Signs Temp 97.1 F 01/13/22 11:17 Pulse 70 01/13/22 11:17 Resp 16 01/13/22 11:17 BP 168/70 H 01/13/22 11:17 Pulse Ox 99 01/13/22 11:17 O2 Del Method 01/13/22 11:17 Pertinent Lab Results Pertinent Lab Results: Laboratory Tests 01/11/22 01/11/22 01/11/22 14:32 14:32 14:32 WBC 10.7 RBC 3.35 L Hgb 9.0 L Hct 28.8 L MCV 86.0 MCH 26.9 L MCHC 31.3 RDW 13.5 Plt Count 313 MPV 10.6 Immature Gran % (Auto) 0.5 H Neut % (Auto) 80.8 H Lymph % (Auto) 11.8 L Fisher % (Auto) 6.4 Eos % (Auto) 0.3 Baso % (Auto) 0.2 Lymph # (Auto) 1.3 Fisher # (Auto) 0.7 Eos # (Auto) 0.0 Baso # (Auto) 0.0 Abs Immat Gran (auto) 0.05 H Absolute Neuts (auto) 8.6 H Absolute Nucleated RBC 0.000 Nucleated RBC % (auto) 0.0 VBG pH VBG pCO2 VBG pO2 VBG HCO3 VBG O2 Saturation VBG Base Excess Sodium 129 L Potassium 4.9 Chloride 93 L Carbon Dioxide 30 H Anion Gap 11 L BUN 13 Creatinine 1.15 Estim Creat Clear Calc 38.8 Estimated GFR 48 POC Glucose Random Glucose 508 H* Lactic Acid 1.5 Calcium 8.7 D Total Bilirubin 0.2 AST 4 L D ALT < 6 Alkaline Phosphatase 109 Total Protein 8.0 Albumin 2.6 L Urine Color Urine Appearance Urine pH Ur Specific [place] Urine Protein Urine Glucose (UA) Urine Ketones Urine Blood Urine Nitrite Ur Leukocyte Esterase Urine RBC Urine WBC Ur Squamous Epith Cells Urine Bacteria Vancomycin Trough Acetone, Qual Negative COVID-19 ([facility]) COVID-19 Clin Com 01/11/22 01/11/22 01/11/22 14:59 17:52 21:04 WBC RBC Hgb Hct MCV MCH MCHC RDW Plt Count MPV Immature Gran % (Auto) Neut % (Auto) Lymph % (Auto) Fisher % (Auto) Eos % (Auto) Baso % (Auto) Lymph # (Auto) Fisher # (Auto) Eos # (Auto) Baso # (Auto) Abs Immat Gran (auto) Absolute Neuts (auto) Absolute Nucleated RBC Nucleated RBC % (auto) VBG pH 7.40 VBG pCO2 44 VBG pO2 65 VBG HCO3 28 H VBG O2 Saturation 92.0 VBG Base Excess 3.1 Sodium Potassium Chloride Carbon Dioxide Anion Gap BUN Creatinine Estim Creat Clear Calc Estimated GFR POC Glucose 213 H Random Glucose Lactic Acid Calcium Total Bilirubin AST ALT Alkaline Phosphatase Total Protein Albumin Urine Color Urine Appearance Urine pH Ur Specific [place] Urine Protein Urine Glucose (UA) Urine Ketones Urine Blood Urine Nitrite Ur Leukocyte Esterase Urine RBC Urine WBC Ur Squamous Epith Cells Urine Bacteria Vancomycin Trough Acetone, Qual COVID-19 (SONG) Negative COVID-19 Clin Com See Note 01/11/22 01/12/22 01/12/22 21:15 06:16 07:00 WBC RBC Hgb Hct MCV MCH MCHC RDW Plt Count MPV Immature Gran % (Auto) Neut % (Auto) Lymph % (Auto) Fisher % (Auto) Eos % (Auto) Baso % (Auto) Lymph # (Auto) Fisher # (Auto) Eos # (Auto) Baso # (Auto) Abs Immat Gran (auto) Absolute Neuts (auto) Absolute Nucleated RBC Nucleated RBC % (auto) VBG pH VBG pCO2 VBG pO2 VBG HCO3 VBG O2 Saturation VBG Base Excess Sodium Potassium Chloride Carbon Dioxide Anion Gap BUN Creatinine 0.82 Estim Creat Clear Calc 54.6 Estimated GFR > 60 POC Glucose 393 H* Random Glucose Lactic Acid Calcium Total Bilirubin AST ALT Alkaline Phosphatase Total Protein Albumin Urine Color YELLOW Urine Appearance CLEAR Urine pH 5.5 Ur Specific [place] 1.015 Urine Protein TRACE Urine Glucose (UA) >=1000 H Urine Ketones NEG Urine Blood TRACE Urine Nitrite NEG Ur Leukocyte Esterase NEG Urine RBC 0-2 Urine WBC 0 Ur Squamous Epith Cells 1+ Urine Bacteria 1+ Vancomycin Trough Acetone, Qual COVID-19 (SONG) COVID-19 Clin Com 01/12/22 01/12/22 01/12/22 13:44 17:58 20:14 WBC RBC Hgb Hct MCV MCH MCHC RDW Plt Count MPV Immature Gran % (Auto) Neut % (Auto) Lymph % (Auto) Fisher % (Auto) Eos % (Auto) Baso % (Auto) Lymph # (Auto) Fisher # (Auto) Eos # (Auto) Baso # (Auto) Abs Immat Gran (auto) Absolute Neuts (auto) Absolute Nucleated RBC Nucleated RBC % (auto) VBG pH VBG pCO2 VBG pO2 VBG HCO3 VBG O2 Saturation VBG Base Excess Sodium Potassium Chloride Carbon Dioxide Anion Gap BUN Creatinine Estim Creat Clear Calc Estimated GFR POC Glucose 284 H 154 H 75 Random Glucose Lactic Acid Calcium Total Bilirubin AST ALT Alkaline Phosphatase Total Protein Albumin Urine Color Urine Appearance Urine pH Ur Specific [place] Urine Protein Urine Glucose (UA) Urine Ketones Urine Blood Urine Nitrite Ur Leukocyte Esterase Urine RBC Urine WBC Ur Squamous Epith Cells Urine Bacteria Vancomycin Trough Acetone, Qual COVID-19 (SONG) COVID-19 Clin Com 01/13/22 01/13/22 01/13/22 05:08 05:08 07:23 WBC RBC Hgb Hct MCV MCH MCHC RDW Plt Count MPV Immature Gran % (Auto) Neut % (Auto) Lymph % (Auto) Fisher % (Auto) Eos % (Auto) Baso % (Auto) Lymph # (Auto) Fisher # (Auto) Eos # (Auto) Baso # (Auto) Abs Immat Gran (auto) Absolute Neuts (auto) Absolute Nucleated RBC Nucleated RBC % (auto) VBG pH VBG pCO2 VBG pO2 VBG HCO3 VBG O2 Saturation VBG Base Excess Sodium Potassium Chloride Carbon Dioxide Anion Gap BUN Creatinine 0.86 Estim Creat Clear Calc 52.0 Estimated GFR > 60 POC Glucose 234 H Random Glucose Lactic Acid Calcium Total Bilirubin AST ALT Alkaline Phosphatase Total Protein Albumin Urine Color Urine Appearance Urine pH Ur Specific [place] Urine Protein Urine Glucose (UA) Urine Ketones Urine Blood Urine Nitrite Ur Leukocyte Esterase Urine RBC Urine WBC Ur Squamous Epith Cells Urine Bacteria Vancomycin Trough 14.3 Acetone, Qual COVID-19 ([facility]G) COVID-19 [facility] 01/13/22 11:21 WBC RBC Hgb Hct MCV MCH MCHC RDW Plt Count MPV Immature Gran % (Auto) Neut % (Auto) Lymph % (Auto) Fisher % (Auto) Eos % (Auto) Baso % (Auto) Lymph # (Auto) Fisher # (Auto) Eos # (Auto) Baso # (Auto) Abs Immat Gran (auto) Absolute Neuts (auto) Absolute Nucleated RBC Nucleated RBC % (auto) VBG pH VBG pCO2 VBG pO2 VBG HCO3 VBG O2 Saturation VBG Base Excess Sodium Potassium Chloride Carbon Dioxide Anion Gap BUN Creatinine Estim Creat Clear Calc Estimated GFR POC Glucose 270 H Random Glucose Lactic Acid Calcium Total Bilirubin AST ALT Alkaline Phosphatase Total Protein Albumin Urine Color Urine Appearance Urine pH Ur Specific [place] Urine Protein Urine Glucose (UA) Urine Ketones Urine Blood Urine Nitrite Ur Leukocyte Esterase Urine RBC Urine WBC Ur Squamous Epith Cells Urine Bacteria Vancomycin Trough Acetone, Qual COVID-19 ([facility]) COVID-19 [employer] Com Airway Mallampati Class: II TM Dist: >3cm Neck ROM: Full Loose/Missing/Broken Teeth: Yes, Upper and Lower Heart: RRR Lungs: CTA Assessment and Plan Assessment Anesthesia Assessment: Anesthesia Plan Discussed and Chart Reviewed Final Anesthetic Review History of Problems with Anesthesia: No NPO: Yes ASA Class: III Patient Risk: Intermediate Procedure Risk: Low Anesthetic Plan Anesthetic Plan: GA Disposition: Standard PACU
--- NOTE | 2022-01-13 12:53 | MHC.CDI.CONC ---
CDI Concurrent Query Documentation Clarification: PHYSICIAN'S DOCUMENTATION REQUEST Date of Query: 01/13/22 1254 Patient Name: Lazara Driscoll Admit Date: 01/11/22 Dear Doctor, A review of the medical record indicates additional documentation may be needed. Please review below and update the documentation accordingly. Clinical Indicators: Risk Factors/Clinical Indicators/Treatments PN: Plan - patient with diabetes Charcot's foot presented pain in the foot, concern cellulitis and osteomyelitis. Right ankle Charcot's joint destructive ulcer/cellulitis. BKA planned IV morphine IV antibiotics Please clarify the following regarding Diabetes Mellitus (DM)/cellulitis: Cellulitis due to Diabetes mellitus Cellulitis is not due to Diabetes mellitus (insulin dependent) No complications of DM Other complication ? please specify Unable to determine Use of terms such as suspected, likely, concern for, or probable (associated with a specific diagnosis that is being evaluated, monitored, or treated as if it exists) are acceptable and can be coded in the inpatient setting, when documented at the time of discharge. Thank you, Kaitlynn Graves [facility], CDIS Extension: [phone] Please use your independent medical judgment in providing your response. THIS QUERY IS PART OF THE PERMANENT MEDICAL RECORD Provider Response: Other Other Diagnosis: Cellulites due to complications of diabetes
--- NOTE | 2022-01-13 14:58 | P.OP_ITS ---
Operative Note Operative Note Date of Service: 01/13/22 Narrative: Preoperative diagnosis: Osteomyelitis right ankle Postoperative diagnosis: same Procedure: below-knee amputation right leg Surgeon: Giovany Bennett MD Chief Operating Officer: Lillie Braden PA-C, JLUIS Romero Anesthesia: general LMA Indications for procedure: 62-year-old female patient with a long history of diabetic foot ulcers on the right side presenting with severe osteomyelitis involving the right ankle with disintegration distal tib-fib. And ankle. Patient presents for below-knee amputation. Operative findings: Severe deformity of the right foot and ankle Specimen: right below-knee amputation Estimated blood loss: 5 mL Complications: none Procedure details: patient was brought to the OR placed in a supine position. After administering general anesthesia the patient's right foot and leg were prepped with Betadine and draped in a sterile fashion. Should be noted a tourniquet was applied above the knee. A surgical time-out was called and consent confirmed. Patient received preoperative antibiotics and Venodyne boots were in place on the left leg. A fishmouth type incision was then made in the mid calf with electrocautery. This carried down through subcutaneous tissue up to the tibia. The incision was continued down around the tibia to include muscle. Vessels were individually ligated and divided. Fibulas also encountered and freed from the surrounding muscular attachments. Periosteal elevator was used to free up the tib and fib more proximal. Bone cutter was then used to divide fibula and tibia. Remaining soft tissue was divided using electrocautery and the specimen removed. Wounds were checked for hemostasis. The muscular tissue was reapproximated using interrupted 3-0 Polysorb sutures. Dermis was reapproximated using interrupted 3-0 Polysorb sutures. Skin was closed using skin maria luisa and 3-0 nylon sutures. Sterile dressings consisting of fluff gauze, ABD pad, Kerlix and 6 in Ramiro bandage were then applied. The tourniquet was let down after approxima tely 38 minutes. The patient tolerated the procedure well. Sponge, instrument, and needle counts reported as correct. The patient was transferred to PACU in stable condition.
[2022-01-13] MEDS: fentaNYL citrate/PF 100 MCG/2 ML VIAL 50 MCG IVPUSH ×4 (15:11→15:27)
[2022-01-13] MEDS: HYDROmorphone HCl 0.5 MG/0.5 ML SYRINGE IVPUSH ×3 (15:32→15:47)
[2022-01-13] MEDS: Midazolam HCl/PF 2 MG/2 ML VIAL IVPUSH (15:48)
--- NOTE | 2022-01-13 16:09 | MHC.CM.PN ---
CM MET WITH PT AND HER AT BEDSIDE PT REPORTS SHE LIVES WITH HER WHO IS ALSO HER VALIDATION INTERN SHE REPORTS SHE HAS NO OTHER SERVICES AND HAS A CANE AND WALKER SHE USES NEEDED PT HAS A HCP ON FILE AND REPORTS SHE IS VACCINATED AGAINST COVID-19 WITH [facility] SHE REPORTS HER PCP IS MIGUEL WANG IMM DELIVERED PT REPORTS SHE FEELS SHE MAY NEED STR CM INFORMED HER OF THE LIMITED SNF CHOICES DUE TO HER BEING ON [employer] SHE REPORTS SHE UNDERSTANDS AND REQUESTS THE REFERRALS BE MADE SHE REPORTS SHE GOES TO [facility] IN [place] FOR HER MMTP HER CM AT [facility] IS ROYA MANJARREZ [facility]# [phone]
[2022-01-13] MEDS: HYDROmorphone HCl 0.5 MG/0.5 ML SYRINGE 0.25 MG IVPUSH ×2 (16:10→16:25)
[2022-01-13 17:45] LABS: Glucose, Whole Blood 237 mg/dL (60-115)
[2022-01-13] MEDS: 0.9 % Sodium Chloride Flush 3 ML SYRINGE IVFLUSH (17:53)
[2022-01-13] MEDS: Insulin Lispro 100 UNIT/ML 3 ML VIAL SUBCUT ×4 (18:00→22:45)
[2022-01-13] MEDS: Enoxaparin Sodium 40 MG/0.4 ML SYRINGE SUBCUT (18:00)
[2022-01-13 19:36] LABS: Glucose, Whole Blood 187 mg/dL (60-115)
[2022-01-13] MEDS: Morphine Sulfate 4 MG/ML CARTRIDGE 3 MG IVPUSH ×2 (20:36→23:44)
[2022-01-13] MEDS: Atorvastatin Calcium 40 MG TABLET PO (22:41)
[2022-01-13] MEDS: Insulin Glargine,Hum.rec.anlog 100 UNIT/ML 10 ML VIAL 25 UNIT SUBCUT (22:45)
[2022-01-14] VITALS (10 sets, daily range): BP systolic 115–168; BP diastolic 55–73; PULSE 60–76; RESP 16–18; TEMP 36.6–36.9; O2SAT 97–100
[2022-01-14] MEDS: Morphine Sulfate 4 MG/ML CARTRIDGE 3 MG IVPUSH ×2 (04:21→07:40)
[2022-01-14] MEDS: Lactated Ringers 1,000 ML 100 ML IVCONT (04:24)
[2022-01-14] MEDS: Omeprazole 20 MG CAPSULE.DR PO (05:49)
[2022-01-14] MEDS: vancomycin HCL 500 MG in 0.9 % Sodium Chloride 100 ML 110 MG IV (06:07)
[2022-01-14 06:57] LABS: Creatinine Clr Calc Pharmacy 57.3; Estimated Glomerular Filt Rate > 60
[2022-01-14] MEDS: Cholecalciferol (Vitamin D3) 25 MCG TABLET 50 MCG PO (07:43)
[2022-01-14] MEDS: metFORMIN HCl 1,000 MG TABLET 1000 MG PO ×2 (07:43→16:30)
[2022-01-14] MEDS: Aspirin Enteric Coated 81 MG TABLET.DR PO (07:43)
[2022-01-14] MEDS: Gabapentin 600 MG TABLET PO ×3 (07:43→21:25)
[2022-01-14] MEDS: lisinopriL 10 MG TABLET PO (07:43)
[2022-01-14] MEDS: buPROPion HCL 75 MG TABLET PO ×2 (07:43→21:25)
[2022-01-14] MEDS: methADONE HCl 20 MG/2 ML ORAL.CONC 100 MG PO (07:44)
[2022-01-14 07:50] LABS: Glucose, Whole Blood 130 mg/dL (60-115)
--- NOTE | 2022-01-14 09:16 | PM.PNGS ---
Subjective Subjective Date of Service: 01/14/22 Interval history: Pt reports pain at the site of amputation. Says she did not sleep all night. Meds are only helping a little. Reports she has been trying to move and stretch her leg. Physical Exam Vital Signs: Vital Signs: Last Vital Signs Temp 98.2 F 01/14/22 07:26 Pulse 65 01/14/22 07:26 Resp 16 01/14/22 07:26 BP 159/73 H 01/14/22 07:26 Pulse Ox 99 01/14/22 07:26 O2 Del Method 01/14/22 07:26 O2 Flow Rate 2.0 01/14/22 07:26 BMI result Body Mass Index 25.2 Const: General: cooperative and no acute distress Resp: Effort & Inspection: normal respiratory effort Extrem: Other: R BKA site dressing C/D/I, no strikethrough drainage , no visible erythema of R leg above dressing Objective Data Active Medications Albuterol Sulfate (Albuterol Sulfate 90 Mcg 8 Gm Inhaler) 2 puff INHALE Q4H PRN PRN Reason: Respiratory Distress Aspirin (Aspirin Enteric Coated 81 Mg Tablet.) 81 mg PO DAILY [facility] Last Admin: 01/14/22 07:43 Dose: 81 mg Documented By: BOBO Atorvastatin Calcium (Atorvastatin Calcium 40 Mg Tablet) 40 mg PO BEDTIME [facility] Last Admin: 01/13/22 22:41 Dose: 40 mg Documented By: IMELDA Bupropion HCl (Bupropion Hcl 75 Mg Tablet) 75 mg PO BID [facility] Last Admin: 01/14/22 07:43 Dose: 75 mg Documented By: BOBO Enoxaparin Sodium (Enoxaparin Sodium 40 Mg/0.4 Ml Syringe) 40 mg SUBCUT Q24H [facility] Last Admin: 01/13/22 18:00 Dose: 40 mg Documented By: KYRA Fluticasone Propionate (Fluticasone Propionate 100 Mcg Blst.W.Dev) 2 puff INHALE RBID [facility] Last Admin: 01/13/22 20:58 Dose: Not Given Documented By: JULIO Non-Admin Reason: Patient Asleep Gabapentin (Gabapentin 600 Mg Tablet) 600 mg PO TID [facility] Last Admin: 01/14/22 07:43 Dose: 600 mg Documented By: BOBO Hydromorphone HCl (Hydromorphone Hcl 0.5 Mg/0.5 Ml Syringe) 0.5 mg IVPUSH Q5M PRN; Protocol PRN Reason: Pain, Severe (Pain Scale 7-10) Vancomycin HCl 500 mg/ Sodium (Chloride) 110 mls @ 110 mls/hr IV Q12H [facility] Last Infusion: 01/14/22 07:10 Dose: 0 mls/hr Documented By: BOBO Lactated Ringer's (Lr) 1,000 mls @ 100 mls/hr IVCONT .Q10H [facility] Last Admin: 01/14/22 04:24 Dose: 100 mls/hr Documented By: DELROY Insulin Glargine (Insulin Glargine,Hum.Rec.Anlog 100 Unit/Ml 10 Ml Vial) 25 unit SUBCUT BEDTIME [facility] Last Admin: 01/13/22 22:45 Dose: 25 unit Documented By: IMELDA Insulin Human Lispro (Insulin Lispro 100 Unit/Ml 3 Ml Vial) 0 unit SUBCUT QIDACHS [facility]; Protocol Last Admin: 01/14/22 07:44 Dose: Not Given Documented By: BOBO Non-Admin Reason: No Insulin Coverage Insulin Human Lispro (Insulin Lispro 100 Unit/Ml 3 Ml Vial) 5 unit SUBCUT QIDACHS [facility] Last Admin: 01/13/22 22:00 Dose: 5 unit Documented By: IMELDA Lisinopril (Lisinopril 10 Mg Tablet) 10 mg PO DAILY [facility]; Protocol Last Admin: 01/14/22 07:43 Dose: 10 mg Documented By: BOBO Metformin HCl (Metformin Hcl 1,000 Mg Tablet) 1,000 mg PO BIDWM [facility] Last Admin: 01/14/22 07:43 Dose: 1,000 mg Documented By: BOBO Methadone HCl (Methadone Hcl 20 Mg/2 Ml Oral.Conc) 100 mg PO DAILY [facility] Last Admin: 01/14/22 07:44 Dose: 100 mg Documented By: BOBO Morphine Sulfate (Morphine Sulfate 4 Mg/Ml Cartridge) 5 mg IVPUSH Q3H PRN; Protocol PRN Reason: Pain, Severe (Pain Scale 7-10) Omeprazole (Omeprazole 20 Mg Capsule.Dr) 20 mg PO DAILY@0630 [facility] Last Admin: 01/14/22 05:49 Dose: 20 mg Documented By: DELROY Pharmacy Consult (Consult Rx Vancomycin Dosing) 1 each MISCELLANE DAILY PRN PRN Reason: Consult order Sodium Chloride (0.9 % Sodium Chloride Flush 3 Ml Syringe) 3 ml IVFLUSH QSHIFT [facility] Last Admin: 01/14/22 07:59 Dose: Not Given Documented By: BOBO Non-Admin Reason: IV Running Vitamin D (Cholecalciferol (Vitamin D3) 25 Mcg Tablet) 50 mcg PO DAILY [facility] Last Admin: 01/14/22 07:43 Dose: 50 mcg Documented By: BOBO Labs CBC & Chem 7: 01/11/22 14:32 01/14/22 05:11 Labs: Laboratory Results - last 24 hr 01/13/22 01/13/22 01/13/22 11:21 17:40 19:32 Estim Creat Clear Calc Estimated GFR POC Glucose 270 H 237 H 187 H 01/14/22 01/14/22 05:11 07:23 Estim Creat Clear Calc 57.3 Estimated GFR > 60 POC Glucose 130 H Microbiology Microbiology Results: Microbiology 01/11/22 17:46 Gram Stain - Final Foot Right Routine Culture - Preliminary Proteus mirabilis 01/11/22 14:59 Blood Culture - Preliminary Blood - Venous No growth after 48 hours. 01/11/22 14:32 Blood Culture - Preliminary Blood - Venous No growth after 48 hours. Procedures Date of Service Date of Service: 01/14/22 Progress Note: A&P Assessment and plan (1) Osteomyelitis of ankle: Status: Acute (2) Cellulitis: Status: Acute (3) Below-knee amputation of right lower extremity: Status: Acute Plan Increase pain meds- morphine 5mg q3h Diabetic diet Maintain dressing today Continue IV antibiotics- IV vanco Keep leg elevated, pt encouraged to continue ROM of knee joint PT consult Pt seen and discussed with Dr. Bennett. Time Spent With Patient Time: Total time spent is greater than 50% in coordination of care (as documented) at patient's floor/unit and/or counseling patient: Quality Stroke Does the patient have a stroke diagnosis?: No VTE Prior VTE?: No VTE Risk Level:: Medical - moderate - high VTE Device Contraindication: Treatment Not Indicated VTE Drug Contraindication: N/A - Med Ordered
--- NOTE | 2022-01-14 09:18 | HE.PHANOTE ---
SUN BAKER Continue current dose, next trough due @1700
[2022-01-14] MEDS: Insulin Lispro 100 UNIT/ML 3 ML VIAL SUBCUT ×4 (09:19→21:26)
[2022-01-14] MEDS: Fluticasone Propionate 100 MCG BLST.W.DEV 2 PUFF INHALE ×2 (09:56→19:52)
--- NOTE | 2022-01-14 10:34 | HO.PM.IMPN ---
Subjective Subjective Date of Service: 01/14/22 Interval History: f/u on diabetic foot ulcer and likely osteomylitis s/p BKA 01/13 interval history: amputation went well, having lots of pain this morning and did not sleep well Review of Systems pain in the foot Physical Exam Vital Signs: Vital Signs: Last Vital Signs Temp 98.2 F 01/14/22 07:26 Pulse 65 01/14/22 09:46 Resp 16 01/14/22 09:57 BP 159/73 H 01/14/22 09:46 Pulse Ox 99 01/14/22 09:46 O2 Del Method 01/14/22 07:26 O2 Flow Rate 2.0 01/14/22 07:26 BMI result Body Mass Index 25.2 Const: Other: General: AO X 3, no acute distress Resp: CTA bilateral CVS: S1,S2,RRR GI: +BS, NT, no distention Skin: R BKA, wound look dry/clean/intact Neuro: motor grossly intact Psych: appropriate affect Objective Data Active Medications Albuterol Sulfate (Albuterol Sulfate 90 Mcg 8 Gm Inhaler) 2 puff INHALE Q4H PRN PRN Reason: Respiratory Distress Aspirin (Aspirin Enteric Coated 81 Mg Tablet.) 81 mg PO DAILY [facility] Last Admin: 01/14/22 07:43 Dose: 81 mg Documented By: BOBO Atorvastatin Calcium (Atorvastatin Calcium 40 Mg Tablet) 40 mg PO BEDTIME [facility] Last Admin: 01/13/22 22:41 Dose: 40 mg Documented By: IMELDA Bupropion HCl (Bupropion Hcl 75 Mg Tablet) 75 mg PO BID [facility] Last Admin: 01/14/22 07:43 Dose: 75 mg Documented By: BOBO Enoxaparin Sodium (Enoxaparin Sodium 40 Mg/0.4 Ml Syringe) 40 mg SUBCUT Q24H [facility] Last Admin: 01/13/22 18:00 Dose: 40 mg Documented By: KYRA Fluticasone Propionate (Fluticasone Propionate 100 Mcg Blst.W.Dev) 2 puff INHALE RBID [facility] Last Admin: 01/14/22 09:56 Dose: 2 puff Documented By: MARIO Gabapentin (Gabapentin 600 Mg Tablet) 600 mg PO TID [facility] Last Admin: 01/14/22 07:43 Dose: 600 mg Documented By: BOBO Hydromorphone HCl (Hydromorphone Hcl 0.5 Mg/0.5 Ml Syringe) 0.5 mg IVPUSH Q5M PRN; Protocol PRN Reason: Pain, Severe (Pain Scale 7-10) Vancomycin HCl 500 mg/ Sodium (Chloride) 110 mls @ 110 mls/hr IV Q12H [facility] Last Infusion: 01/14/22 07:10 Dose: 0 mls/hr Documented By: BOBO Acetaminophen (Ofirmev) 1,000 mg in 100 mls @ 400 mls/hr IV Q6H [facility] Last Admin: 01/14/22 10:14 Dose: 400 mls/hr Documented By: BOBO Insulin Glargine (Insulin Glargine,Hum.Rec.Anlog 100 Unit/Ml 10 Ml Vial) 25 unit SUBCUT BEDTIME [facility] Last Admin: 01/13/22 22:45 Dose: 25 unit Documented By: IMELDA Insulin Human Lispro (Insulin Lispro 100 Unit/Ml 3 Ml Vial) 0 unit SUBCUT QIDAS [facility]; Protocol Last Admin: 01/14/22 07:44 Dose: Not Given Documented By: BOBO Non-Admin Reason: No Insulin Coverage Insulin Human Lispro (Insulin Lispro 100 Unit/Ml 3 Ml Vial) 5 unit SUBCUT QIDAS [facility] Last Admin: 01/14/22 09:19 Dose: 5 unit Documented By: BOBO Lisinopril (Lisinopril 10 Mg Tablet) 10 mg PO DAILY [facility]; Protocol Last Admin: 01/14/22 07:43 Dose: 10 mg Documented By: BOBO Metformin HCl (Metformin Hcl 1,000 Mg Tablet) 1,000 mg PO BIDWM [facility] Last Admin: 01/14/22 07:43 Dose: 1,000 mg Documented By: BOBO Methadone HCl (Methadone Hcl 20 Mg/2 Ml Oral.Conc) 100 mg PO DAILY [facility] Last Admin: 01/14/22 07:44 Dose: 100 mg Documented By: BOBO Morphine Sulfate (Morphine Sulfate 4 Mg/Ml Cartridge) 5 mg IVPUSH Q3H PRN; Protocol PRN Reason: Pain, Severe (Pain Scale 7-10) Omeprazole (Omeprazole 20 Mg Capsule.Dr) 20 mg PO DAILY@0630 [facility] Last Admin: 01/14/22 05:49 Dose: 20 mg Documented By: DELROY Pharmacy Consult (Consult Rx Vancomycin Dosing) 1 each MISCELLANE DAILY PRN PRN Reason: Consult order Sodium Chloride (0.9 % Sodium Chloride Flush 3 Ml Syringe) 3 ml IVFLUSH QSHIFT [facility] Last Admin: 01/14/22 07:59 Dose: Not Given Documented By: BOBO Non-Admin Reason: IV Running Vitamin D (Cholecalciferol (Vitamin D3) 25 Mcg Tablet) 50 mcg PO DAILY [facility] Last Admin: 01/14/22 07:43 Dose: 50 mcg Documented By: BOBO Labs CBC & Chem 7: 01/11/22 14:32 01/14/22 05:11 Labs: Laboratory Results - last 24 hr 01/13/22 01/13/22 01/13/22 11:21 17:40 19:32 Estim Creat Clear Calc Estimated GFR POC Glucose 270 H 237 H 187 H 01/14/22 01/14/22 05:11 07:23 Estim Creat Clear Calc 57.3 Estimated GFR > 60 POC Glucose 130 H Microbiology Microbiology Results: Microbiology 01/11/22 17:46 Gram Stain - Final Foot Right Routine Culture - Preliminary Proteus mirabilis 01/11/22 14:59 Blood Culture - Preliminary Blood - Venous No growth after 48 hours. 01/11/22 14:32 Blood Culture - Preliminary Blood - Venous No growth after 48 hours. Assessment and Plan (1) Pneumonia due to COVID-19 virus: Status: Resolved (2) Acute respiratory failure with hypoxia: Status: Resolved Plan 60-year-old female with diabetes Charcot's foot presented pain in the foot concern cellulitis and osteomyelitis 1/Right ankle charcoal join destructive ulcer/ cellulitis, cannot rule osteomylitis--s/p R BKA 01/13 - Continue IV antibiotics with vancomycin until after amputation. -Change morphine to dilaudid for pain 2/diabetes with hyperglycemia, hold Metformin, pre meal insulin, SSI, Lantus and continue monitoring.? diabetic diet. 3/hypertension continue Lisinopril 4/hyperlipidemia continue Lipitor 5/opioid dependence:? Continue methadone 6/GERD:? Omeprazole 7/depression continue Bupropion 8/DVT prophylaxis:? Lovenox Need for inaptient: Diabetic foot ulcer that needs ampuation planned for today 01/13 Quality Stroke Does the patient have a stroke diagnosis?: No VTE Prior VTE?: No VTE Risk Level:: Medical - moderate - high VTE Device Contraindication: Treatment Not Indicated VTE Drug Contraindication: N/A - Med Ordered
--- NOTE | 2022-01-14 11:23 | HO.POSTANES ---
Post Anesthesia Evaluation Post Anesthesia Evaluation Vital Signs: Vital Signs Temp Pulse Resp BP Pulse Ox O2 Del Method O2 Flow Rate 01/14/22 09:57 16 01/14/22 09:46 65 159/73 H 99 01/14/22 07:26 98.2 F 65 16 159/73 H 99 Nasal Cannula 2.0 01/14/22 04:00 98.1 F 67 17 168/71 H 100 Room Air 01/14/22 00:00 18 01/13/22 23:34 98.8 F 68 17 154/70 H 99 Room Air Anesthesia: General Mental Status: Awake Pain Control: Satisfactory (pain difficult to control) Nausea/Vomiting: Mild Hydration: Adequate Anesthesia-Related Issues: No Anes. Related Issues
[2022-01-14 11:28] LABS: Glucose, Whole Blood 121 mg/dL (60-115)
--- NOTE | 2022-01-14 14:27 | MHC.CM.PN ---
PATIENT ASKS TO GO HOME AND NOT DC TO SNF SHE IS AWARE THAT ONLY BED OFFER IS IN [facility] (PER PATIENT REQUEST) IS WILLING TO OFFER. PLAN IS DC HOME THURSDAY
[2022-01-14 15:43] LABS: Glucose, Whole Blood 66 mg/dL (60-115)
[2022-01-14 16:18] LABS: Glucose, Whole Blood 202 mg/dL (60-115)
[2022-01-14 17:43] LABS: Vancomycin Trough 14.1 mcg/mL (10.0-20.0)
--- NOTE | 2022-01-14 18:10 | HE.PHANOTE ---
[place] Addendum Increasing dose to 750mg Q12 with random level to be drawn 01/15/22 @1700. Predicted AUC 564mg/L hr. Kidney function has improved, will continue to monitor.
[2022-01-14] MEDS: Enoxaparin Sodium 40 MG/0.4 ML SYRINGE SUBCUT (18:54)
[2022-01-14] MEDS: vancomycin HCL 750 MG in 0.9 % Sodium Chloride 250 ML 265 MG IV (18:54)
[2022-01-14 21:18] LABS: Glucose, Whole Blood 284 mg/dL (60-115)
[2022-01-14 21:23] LABS: Glucose, Whole Blood 317 mg/dL (60-115)
[2022-01-14] MEDS: Atorvastatin Calcium 40 MG TABLET PO (21:25)
[2022-01-14] MEDS: Insulin Glargine,Hum.rec.anlog 100 UNIT/ML 10 ML VIAL 25 UNIT SUBCUT (21:26)
[2022-01-14] MEDS: 0.9 % Sodium Chloride Flush 3 ML SYRINGE IVFLUSH (22:29)
[2022-01-15] VITALS (7 sets, daily range): BP systolic 114–167; BP diastolic 49–70; PULSE 57–86; RESP 16–18; TEMP 36–36.9; O2SAT 95–100
[2022-01-15] MEDS: Omeprazole 20 MG CAPSULE.DR PO (05:51)
[2022-01-15] MEDS: vancomycin HCL 750 MG in 0.9 % Sodium Chloride 250 ML 265 MG IV (05:56)
[2022-01-15 06:25] LABS: Creatinine Clr Calc Pharmacy 55.9; Estimated Glomerular Filt Rate > 60
--- NOTE | 2022-01-15 07:30 | HE.PHANOTE ---
SUN BAKER CONTINUE CURRENT DOSE, NEXT TROUGH DUE AT 1700
[2022-01-15 07:38] LABS: Glucose, Whole Blood 64 mg/dL (60-115)
[2022-01-15] MEDS: Gabapentin 600 MG TABLET PO ×3 (07:58→20:26)
[2022-01-15] MEDS: lisinopriL 10 MG TABLET PO (07:58)
[2022-01-15] MEDS: metFORMIN HCl 1,000 MG TABLET 1000 MG PO (07:59)
[2022-01-15] MEDS: Aspirin Enteric Coated 81 MG TABLET.DR PO (07:59)
[2022-01-15] MEDS: buPROPion HCL 75 MG TABLET PO ×2 (07:59→20:26)
[2022-01-15] MEDS: Cholecalciferol (Vitamin D3) 25 MCG TABLET 50 MCG PO (07:59)
[2022-01-15] MEDS: methADONE HCl 20 MG/2 ML ORAL.CONC 100 MG PO (08:01)
[2022-01-15] MEDS: 0.9 % Sodium Chloride Flush 3 ML SYRINGE IVFLUSH ×3 (08:02→20:30)
[2022-01-15] MEDS: Fluticasone Propionate 100 MCG BLST.W.DEV 2 PUFF INHALE ×2 (09:18→19:57)
--- NOTE | 2022-01-15 10:36 | PM.PNGS ---
Subjective Subjective Date of Service: 01/15/22 Interval history: Patient feels more comfortable today still has some incisional pain at the right stump. Was able to sleep during the night. She reports getting up with a walker with physical therapy yesterday. Physical Exam Vital Signs: Vital Signs: Last Vital Signs Temp 97.3 F 01/15/22 07:31 Pulse 64 01/15/22 09:19 Resp 16 01/15/22 09:19 BP 120/56 L 01/15/22 07:31 Pulse Ox 100 01/15/22 07:31 O2 Del Method 01/15/22 07:31 O2 Flow Rate 2 01/15/22 07:31 BMI result Body Mass Index 25.2 Const: General: comfortable and no acute distress Nutritional Appearance: well nourished Orientation/consciousness: patient oriented x3 Resp: Effort & Inspection: normal respiratory effort Neuro: General: patient oriented x3 Extrem: Other: Dressings remained clean and intact without redness or discharge. Objective Data Active Medications Albuterol Sulfate (Albuterol Sulfate 90 Mcg 8 Gm Inhaler) 2 puff INHALE Q4H PRN PRN Reason: Respiratory Distress Aspirin (Aspirin Enteric Coated 81 Mg Tablet.) 81 mg PO DAILY [facility] Last Admin: 01/15/22 07:59 Dose: 81 mg Documented By: CIPRIANO Atorvastatin Calcium (Atorvastatin Calcium 40 Mg Tablet) 40 mg PO BEDTIME [facility] Last Admin: 01/14/22 21:25 Dose: 40 mg Documented By: MARYLU Bupropion HCl (Bupropion Hcl 75 Mg Tablet) 75 mg PO BID [facility] Last Admin: 01/15/22 07:59 Dose: 75 mg Documented By: CIPRIANO Enoxaparin Sodium (Enoxaparin Sodium 40 Mg/0.4 Ml Syringe) 40 mg SUBCUT Q24H [facility] Last Admin: 01/14/22 18:54 Dose: 40 mg Documented By: BOBO Fluticasone Propionate (Fluticasone Propionate 100 Mcg Blst.W.Dev) 2 puff INHALE RBID [facility] Last Admin: 01/15/22 09:18 Dose: 2 puff Documented By: LIONEL Gabapentin (Gabapentin 600 Mg Tablet) 600 mg PO TID [facility] Last Admin: 01/15/22 07:58 Dose: 600 mg Documented By: CIPRIANO Hydromorphone HCl (Hydromorphone Hcl 0.5 Mg/0.5 Ml Syringe) 0.5 mg IVPUSH Q5M PRN; Protocol PRN Reason: Pain, Severe (Pain Scale 7-10) Acetaminophen (Ofirmev) 1,000 mg in 100 mls @ 400 mls/hr IV Q6H [facility] Last Admin: 01/15/22 10:25 Dose: 400 mls/hr Documented By: CIPRIANO Vancomycin HCl 750 mg/ Sodium (Chloride) 265 mls @ 265 mls/hr IV Q12H [facility] Last Infusion: 01/15/22 07:07 Dose: 0 mls/hr Documented By: CIPRIANO Insulin Glargine (Insulin Glargine,Hum.Rec.Anlog 100 Unit/Ml 10 Ml Vial) 25 unit SUBCUT BEDTIME [facility] Last Admin: 01/14/22 21:26 Dose: 25 unit Documented By: MARYLU Insulin Human Lispro (Insulin Lispro 100 Unit/Ml 3 Ml Vial) 0 unit SUBCUT QIDACHS [facility]; Protocol Last Admin: 01/15/22 07:43 Dose: Not Given Documented By: CIPRIANO Non-Admin Reason: No Insulin Coverage Insulin Human Lispro (Insulin Lispro 100 Unit/Ml 3 Ml Vial) 5 unit SUBCUT QIDACHS [facility] Last Admin: 01/15/22 07:44 Dose: Not Given Documented By: CIPRIANO Non-Admin Reason: lower blood sugar Lisinopril (Lisinopril 10 Mg Tablet) 10 mg PO DAILY [facility]; Protocol Last Admin: 01/15/22 07:58 Dose: 10 mg Documented By: CIPRIANO Metformin HCl (Metformin Hcl 1,000 Mg Tablet) 1,000 mg PO BIDWM [facility] Last Admin: 01/15/22 07:59 Dose: 1,000 mg Documented By: CIPRIANO Methadone HCl (Methadone Hcl 20 Mg/2 Ml Oral.Conc) 100 mg PO DAILY [facility] Last Admin: 01/15/22 08:01 Dose: 100 mg Documented By: CIPRIANO Morphine Sulfate (Morphine Sulfate 4 Mg/Ml Cartridge) 5 mg IVPUSH Q3H PRN; Protocol PRN Reason: Pain, Severe (Pain Scale 7-10) Omeprazole (Omeprazole 20 Mg Capsule.Dr) 20 mg PO DAILY@0630 [facility] Last Admin: 01/15/22 05:51 Dose: 20 mg Documented By: MARYLU Pharmacy Consult (Consult Rx Vancomycin Dosing) 1 each MISCELLANE DAILY PRN PRN Reason: Consult order Sodium Chloride (0.9 % Sodium Chloride Flush 3 Ml Syringe) 3 ml IVFLUSH QSHIFT [facility] Last Admin: 01/15/22 08:02 Dose: 3 ml Documented By: CIPRIANO Vitamin D (Cholecalciferol (Vitamin D3) 25 Mcg Tablet) 50 mcg PO DAILY [facility] Last Admin: 01/15/22 07:59 Dose: 50 mcg Documented By: CIPRIANO Labs CBC & Chem 7: 01/11/22 14:32 01/15/22 05:22 Labs: Laboratory Results - last 24 hr 01/14/22 01/14/22 01/14/22 11:02 15:10 16:10 Estim Creat Clear Calc Estimated GFR POC Glucose 121 H 66 202 H Vancomycin Trough 01/14/22 01/14/22 01/14/22 17:09 19:14 21:19 Estim Creat Clear Calc Estimated GFR POC Glucose 284 H 317 H Vancomycin Trough 14.1 01/15/22 01/15/22 05:22 07:34 Estim Creat Clear Calc 55.9 Estimated GFR > 60 POC Glucose 64 Vancomycin Trough Microbiology Microbiology Results: Microbiology 01/11/22 17:46 Gram Stain - Final Foot Right Routine Culture - Preliminary Proteus mirabilis Staphylococcus aureus Procedures Date of Service Date of Service: 01/15/22 Progress Note: A&P Assessment and plan (1) Below-knee amputation of right lower extremity: Status: Acute (2) Osteomyelitis of ankle: Status: Acute Plan 62-year-old female status post right below-knee amputation for osteomyelitis of ankle. She reports improved pain control today. Will change dressings later today. Continue physical therapy. Patient is willing to go to short-term rehab upon discharge. Would anticipate two more days prior to discharge. Time Spent With Patient Time: Total time spent is greater than 50% in coordination of care (as documented) at patient's floor/unit and/or counseling patient: Quality Stroke Does the patient have a stroke diagnosis?: No VTE Prior VTE?: No VTE Risk Level:: Medical - moderate - high VTE Device Contraindication: Treatment Not Indicated VTE Drug Contraindication: N/A - Med Ordered
[2022-01-15 11:16] LABS: Glucose, Whole Blood 55 mg/dL (60-115)
[2022-01-15 11:38] LABS: Glucose, Whole Blood 66 mg/dL (60-115)
--- NOTE | 2022-01-15 12:26 | P.PNIM_ITS ---
Subjective Subjective Date of Service: 01/15/22 Interval History: postop pain at incision site no fever/chills working with PT Review of Systems Review of Systems: Yes all other systems are reviewed and are negative Physical Exam Vital Signs: Vital Signs: Last Vital Signs Temp 97.6 F 01/15/22 11:05 Pulse 75 01/15/22 11:05 Resp 18 01/15/22 11:05 BP 167/70 H 01/15/22 11:05 Pulse Ox 98 01/15/22 11:05 O2 Del Method 01/15/22 11:05 O2 Flow Rate 2 01/15/22 07:31 BMI result Body Mass Index 25.2 Gen: in no acute distress HEENT: sclera anicteric, moist mucus membranes Neck: supple Lungs: clear to auscultation bilaterally Heart: regular rate and rhythm, no murmurs Abd: soft, non-tender, non-distended Ext: s/p R BKA, wound dressing dry Skin: warm/well-perfused Neuro: alert and oriented x3, no focal findings Psych: appropriate affect Objective Data Active Medications Albuterol Sulfate (Albuterol Sulfate 90 Mcg 8 Gm Inhaler) 2 puff INHALE Q4H PRN PRN Reason: Respiratory Distress Aspirin (Aspirin Enteric Coated 81 Mg Tablet.) 81 mg PO DAILY [facility] Last Admin: 01/15/22 07:59 Dose: 81 mg Documented By: CIPRIANO Atorvastatin Calcium (Atorvastatin Calcium 40 Mg Tablet) 40 mg PO BEDTIME [facility] Last Admin: 01/14/22 21:25 Dose: 40 mg Documented By: MARYLU Bupropion HCl (Bupropion Hcl 75 Mg Tablet) 75 mg PO BID [facility] Last Admin: 01/15/22 07:59 Dose: 75 mg Documented By: CIPRIANO Enoxaparin Sodium (Enoxaparin Sodium 40 Mg/0.4 Ml Syringe) 40 mg SUBCUT Q24H [facility] Last Admin: 01/14/22 18:54 Dose: 40 mg Documented By: BOBO Fluticasone Propionate (Fluticasone Propionate 100 Mcg Blst.W.Dev) 2 puff INHALE RBID [facility] Last Admin: 01/15/22 09:18 Dose: 2 puff Documented By: LIONEL Gabapentin (Gabapentin 600 Mg Tablet) 600 mg PO TID [facility] Last Admin: 01/15/22 07:58 Dose: 600 mg Documented By: CIPRIANO Hydromorphone HCl (Hydromorphone Hcl 0.5 Mg/0.5 Ml Syringe) 0.5 mg IVPUSH Q5M PRN; Protocol PRN Reason: Pain, Severe (Pain Scale 7-10) Acetaminophen (Ofirmev) 1,000 mg in 100 mls @ 400 mls/hr IV Q6H [facility] Last Infusion: 01/15/22 10:41 Dose: 0 mls/hr Documented By: CIPRIANO Vancomycin HCl 750 mg/ Sodium (Chloride) 265 mls @ 265 mls/hr IV Q12H [facility] Last Infusion: 01/15/22 07:07 Dose: 0 mls/hr Documented By: CIPRIANO Insulin Glargine (Insulin Glargine,Hum.Rec.Anlog 100 Unit/Ml 10 Ml Vial) 25 unit SUBCUT BEDTIME [facility] Last Admin: 01/14/22 21:26 Dose: 25 unit Documented By: MARYLU Insulin Human Lispro (Insulin Lispro 100 Unit/Ml 3 Ml Vial) 0 unit SUBCUT QIDACHS [facility]; Protocol Last Admin: 01/15/22 11:38 Dose: Not Given Documented By: CIPRIANO Non-Admin Reason: No Insulin Coverage Insulin Human Lispro (Insulin Lispro 100 Unit/Ml 3 Ml Vial) 5 unit SUBCUT QIDACHS [facility] Last Admin: 01/15/22 11:38 Dose: Not Given Documented By: CIPRIANO Non-Admin Reason: blood sugar low Lisinopril (Lisinopril 10 Mg Tablet) 10 mg PO DAILY [facility]; Protocol Last Admin: 01/15/22 07:58 Dose: 10 mg Documented By: CIPRIANO Metformin HCl (Metformin Hcl 1,000 Mg Tablet) 1,000 mg PO BIDWM [facility] Last Admin: 01/15/22 07:59 Dose: 1,000 mg Documented By: CIPRIANO Methadone HCl (Methadone Hcl 20 Mg/2 Ml Oral.Conc) 100 mg PO DAILY [facility] Last Admin: 01/15/22 08:01 Dose: 100 mg Documented By: CIPRIANO Morphine Sulfate (Morphine Sulfate 4 Mg/Ml Cartridge) 5 mg IVPUSH Q3H PRN; Protocol PRN Reason: Pain, Severe (Pain Scale 7-10) Omeprazole (Omeprazole 20 Mg Capsule.) 20 mg PO DAILY@0630 [facility] Last Admin: 01/15/22 05:51 Dose: 20 mg Documented By: MARYLU Pharmacy Consult (Consult Rx Vancomycin Dosing) 1 each MISCELLANE DAILY PRN PRN Reason: Consult order Sodium Chloride (0.9 % Sodium Chloride Flush 3 Ml Syringe) 3 ml IVFLUSH QSHIFT [facility] Last Admin: 01/15/22 08:02 Dose: 3 ml Documented By: CIPRIANO Vitamin D (Cholecalciferol (Vitamin D3) 25 Mcg Tablet) 50 mcg PO DAILY [facility] Last Admin: 01/15/22 07:59 Dose: 50 mcg Documented By: CIPRIANO Labs CBC & Chem 7: 01/11/22 14:32 01/15/22 05:22 Labs: Laboratory Results - last 24 hr 01/14/22 01/14/22 01/14/22 15:10 16:10 17:09 Estim Creat Clear Calc Estimated GFR POC Glucose 66 202 H Vancomycin Trough 14.1 01/14/22 01/14/22 01/15/22 19:14 21:19 05:22 Estim Creat Clear Calc 55.9 Estimated GFR > 60 POC Glucose 284 H 317 H Vancomycin Trough 01/15/22 01/15/22 01/15/22 07:34 11:10 11:33 Estim Creat Clear Calc Estimated GFR POC Glucose 64 55 L* 66 Vancomycin Trough Microbiology Microbiology Results: Microbiology 01/11/22 17:46 Gram Stain - Final Foot Right Routine Culture - Preliminary Proteus mirabilis Staphylococcus aureus Assessment and Plan (1) Pneumonia due to COVID-19 virus: Status: Resolved (2) Acute respiratory failure with hypoxia: Status: Resolved Plan hospital d#5 60yo F with DM2 with Charcot foot admitted with severe osteomyelitis involving the right ankle with disintegration distal tib-fib and ankle, s/p BKA 01/13/22 # osteomyelitis - POD #2 BKA, Surgery following, PT/OT - currently on vancomycin, wound Cx growing St. aureus [MRSA status pending] + Proteus, ID consultation requested - prn oxycodone + IV morphine for pain # DM2 with hyperglycemia - MTF held, basal/bolus insulin # HTN - continue lisinopril # HLD - continue atorvastatin # opioid use disorder - continue methadone # DM neuropathy - continue gabapentin # GERD - continue PPI # depression - continue bupropion # VTE ppx: LMWH # dispo: STR In my clinical judgment, the patient requires continued hospitalization for the following reasons: postop, IV ABX pending wound Cx Quality Stroke Does the patient have a stroke diagnosis?: No VTE Prior VTE?: No VTE Risk Level:: Medical - moderate - high VTE Device Contraindication: Treatment Not Indicated VTE Drug Contraindication: N/A - Med Ordered
--- NOTE | 2022-01-15 13:31 | W.PM.IDCN ---
History of Present Illness Data of Consult Service Date: 01/15/22 Requesting physician: Cody Smith Primary Care Provider: Unknown Physician HPI Reason for consult: proteus,MSSA foot wound She presents to hospital with nonhealing right foot with discharge and redness. She has had multiple infections foot. She has had no fever or chills. Review of Systems Review of Systems: Yes all other systems are reviewed and are negative PMFSH Past Medical History Medical History Chronic prescription opiate use COPD (chronic obstructive pulmonary disease) Depression Diabetes mellitus Dyslipidemia Glaucoma New onset of congestive heart failure Pulmonary emboli Pulmonary nodule Tobacco dependence Family History Family History Other CVA (cerebral vascular accident) Family history: reviewed and not pertinent Surgical History Surgical History Cataract extraction status, left eye Cataract extraction status, right eye Hx of cholecystectomy Social History Social History Household Members: Spouse Housing: Apartment Housing Other:: hotel Do you presently have visiting nurse or other home services: No Unable to assess alcohol history related to: Unknown Alcohol intake: never Patient Tobacco Use Status: Current everyday Tobacco user Tobacco use type: Cigarette Cigarette Packs Per Day: 0.5 Cigarettes Per Day: 5 Years Smoked: 45 e-Cigarette/Vaping Use: Currently Using Second Hand Smoke Exposure: No Substance Use Type: Heroin Advance Directives Date on File: 01/12/22 service: No (hx on methadone) Current occupational status: disabled Meds Allergies Allergy/AdvReac Type Severity Reaction Status Date / Time No Known Allergies Allergy Verified 11/19/21 14:53 Active Medications: Current Medications Albuterol Sulfate (Albuterol Sulfate 90 Mcg 8 Gm Inhaler) 2 puff INHALE Q4H PRN PRN Reason: Respiratory Distress Aspirin (Aspirin Enteric Coated 81 Mg Tablet.) 81 mg PO DAILY [facility] Last Admin: 01/15/22 07:59 Dose: 81 mg Atorvastatin Calcium (Atorvastatin Calcium 40 Mg Tablet) 40 mg PO BEDTIME [facility] Last Admin: 01/14/22 21:25 Dose: 40 mg Bupropion HCl (Bupropion Hcl 75 Mg Tablet) 75 mg PO BID [facility] Last Admin: 01/15/22 07:59 Dose: 75 mg Enoxaparin Sodium (Enoxaparin Sodium 40 Mg/0.4 Ml Syringe) 40 mg SUBCUT Q24H [facility] Last Admin: 01/14/22 18:54 Dose: 40 mg Fluticasone Propionate (Fluticasone Propionate 100 Mcg Blst.W.Dev) 2 puff INHALE RBID [facility] Last Admin: 01/15/22 09:18 Dose: 2 puff Gabapentin (Gabapentin 600 Mg Tablet) 600 mg PO TID [facility] Last Admin: 01/15/22 07:58 Dose: 600 mg Acetaminophen (Ofirmev) 1,000 mg in 100 mls @ 400 mls/hr IV Q6H [facility] Last Infusion: 01/15/22 10:41 Dose: Infused Insulin Glargine (Insulin Glargine,Hum.Rec.Anlog 100 Unit/Ml 10 Ml Vial) 25 unit SUBCUT BEDTIME [facility] Last Admin: 01/14/22 21:26 Dose: 25 unit Insulin Human Lispro (Insulin Lispro 100 Unit/Ml 3 Ml Vial) 0 unit SUBCUT QIDACHS [facility]; Protocol Last Admin: 01/15/22 11:38 Dose: Not Given Insulin Human Lispro (Insulin Lispro 100 Unit/Ml 3 Ml Vial) 5 unit SUBCUT QIDACHS [facility] Last Admin: 01/15/22 11:38 Dose: Not Given Lisinopril (Lisinopril 10 Mg Tablet) 10 mg PO DAILY [facility]; Protocol Last Admin: 01/15/22 07:58 Dose: 10 mg Metformin HCl (Metformin Hcl 1,000 Mg Tablet) 1,000 mg PO BIDWM [facility] Last Admin: 01/15/22 07:59 Dose: 1,000 mg Methadone HCl (Methadone Hcl 20 Mg/2 Ml Oral.Conc) 100 mg PO DAILY [facility] Last Admin: 01/15/22 08:01 Dose: 100 mg Morphine Sulfate (Morphine Sulfate 4 Mg/Ml Cartridge) 5 mg IVPUSH Q3H PRN; Protocol PRN Reason: Pain, Severe (Pain Scale 7-10) Omeprazole (Omeprazole 20 Mg Capsule.Dr) 20 mg PO DAILY@0630 [facility] Last Admin: 01/15/22 05:51 Dose: 20 mg Oxycodone HCl (Oxycodone Hcl Immed Release 5 Mg Tablet) 5 mg PO Q4H PRN PRN Reason: moderate pain Pharmacy Consult (Consult Rx Vancomycin Dosing) 1 each MISCELLANE DAILY PRN PRN Reason: Consult order Sodium Chloride (0.9 % Sodium Chloride Flush 3 Ml Syringe) 3 ml IVFLUSH QSHIFT [facility] Last Admin: 01/15/22 08:02 Dose: 3 ml Vitamin D (Cholecalciferol (Vitamin D3) 25 Mcg Tablet) 50 mcg PO DAILY [facility] Last Admin: 01/15/22 07:59 Dose: 50 mcg Home Medications Medication Instructions Recorded Confirmed Last Taken Type albuterol sulfate 90 mcg/actuation 2 puff PO Q4H PRN Respiratory 04/24/20 01/11/22 06/03/21 History aerosol inhaler Distress aspirin 81 mg tablet,delayed 81 mg PO DAILY 04/24/20 01/11/22 06/03/21 History release atorvastatin 40 mg tablet 40 mg PO DAILY 04/24/20 01/11/22 06/03/21 History bupropion HCl 150 mg tablet,12 hr 150 mg PO BID 04/24/20 01/11/22 06/03/21 History sustained-release cholecalciferol (vitamin D3) 50 50 mcg PO DAILY 04/24/20 01/11/22 06/03/21 History mcg (2,000 unit) tablet lancets 33 gauge #100 ea 04/24/20 06/04/21 06/03/21 History lisinopril 10 mg tablet 10 mg PO DAILY 04/24/20 01/11/22 06/03/21 History metformin 1,000 mg tablet 1,000 mg PO BIDWMEAL 04/24/20 01/11/22 06/03/21 History omeprazole 20 mg capsule,delayed 20 mg PO DAILY 04/24/20 01/11/22 06/03/21 History release gabapentin 600 mg tablet 600 mg PO TID 05/03/20 01/11/22 06/03/21 History fluticasone propionate 110 2 puff inhalation BID 05/28/20 01/11/22 06/03/21 History mcg/actuation HFA aerosol inhaler (Flovent HFA) methadone 10 mg/mL oral 100 mg PO DAILY 05/28/20 01/12/22 06/04/21 History concentrate (Methadone Intensol) insulin aspart U-100 100 unit/mL See Rx Instructions .Route .COMPLEX 12/26/20 01/11/22 06/03/21 History (3 mL) subcutaneous pen (Novolog Flexpen U-100 Insulin aspart) insulin degludec 100 unit/mL (3 40 unit subcut BEDTIME 06/04/21 01/11/22 06/03/21 History mL) subcutaneous pen (Tresiba FlexTouch U-100 insulin) Physical Exam Vital Signs: Vital Signs: Last Vital Signs Temp 97.6 F 01/15/22 11:05 Pulse 75 01/15/22 11:05 Resp 18 01/15/22 11:05 BP 167/70 H 01/15/22 11:05 Pulse Ox 98 01/15/22 11:05 O2 Del Method 01/15/22 11:05 O2 Flow Rate 2 01/15/22 07:31 BMI result Body Mass Index 25.2 Const: General: cooperative HEENT: Head: Yes normal to inspection Face and sinus: Yes normal facial exam Mouth: Normal oral and palatal mucosa present Teeth and gingiva: dentition normal Eyes: General: appearance normal, both eyes and all related structures Pupils: Equal, round and reactive pupils present Resp: Effort & Inspection: normal respiratory effort Cardio: Rate: regular rate Rhythm: regular rhythm GI: Palpation (GI): Soft to palpation and nontender : General: Yes no CVA tenderness Back/Spine/Pelvis: Back: no CVA tenderness Skin: General skin exam: no rashes or lesions noted Neuro: General: moves all extremities Cranial nerves: Yes Equal, round and reactive pupils present Extrem: Other: right BKA ,looks clear Psych: Appearance: grossly normal Results Labs CBC & Chem 7: 01/11/22 14:32 01/15/22 05:22 Labs: BMP 01/15/22 05:22 Creatinine 0.80 Microbiology Microbiology Results: Microbiology 01/11/22 17:46 Foot Right Gram Stain - Final 01/11/22 17:46 Foot Right Routine Culture - Preliminary Proteus mirabilis Staphylococcus aureus 01/11/22 14:59 Blood - Venous Blood Culture - Preliminary No growth after 48 hours. 01/11/22 14:32 Blood - Venous Blood Culture - Preliminary No growth after 48 hours. Assessment and Plan (1) Below-knee amputation of right lower extremity: Status: Acute (2) Osteomyelitis of ankle: Status: Acute She has proteus and MSSA ankle All infected area is removed She has no bacteremia Plan Would not give any further antibiotics as all infected tissue removed and there is no bacteremia.
[2022-01-15 14:16] LABS: Glucose, Whole Blood 61 mg/dL (60-115)
--- NOTE | 2022-01-15 15:36 | MHC.CM.PN ---
Patient accepted at [facility] for STR. Met with patient, she prefers closer SNF, explained no other beds available. She is agreeable and plans to have family visit this evening prior to dc tomorrow. [facility] requested Methadone be set up through [facility] in [place]. Worked with Shanita from [facility]. She has Guest Dosing Paperwork completed, but unable to obtain their MD signature today. Will obtain tomorrow morning and fax to [facility]. [facility] able to accept patient once [facility] confirms approval with them.
[2022-01-15 15:39] LABS: Glucose, Whole Blood 108 mg/dL (60-115)
[2022-01-15] MEDS: Enoxaparin Sodium 40 MG/0.4 ML SYRINGE SUBCUT (18:06)
[2022-01-15 19:49] LABS: Glucose, Whole Blood 158 mg/dL (60-115)
[2022-01-15] MEDS: Atorvastatin Calcium 40 MG TABLET PO (20:26)
[2022-01-15] MEDS: Insulin Lispro 100 UNIT/ML 3 ML VIAL SUBCUT ×2 (20:27→20:28)
[2022-01-15] MEDS: Insulin Glargine,Hum.rec.anlog 100 UNIT/ML 10 ML VIAL 25 UNIT SUBCUT (20:28)
[2022-01-16 03:44] VITALS: BP 105/53; PULSE 64; RESP 17; TEMP 36; O2SAT 97
[2022-01-16] MEDS: Omeprazole 20 MG CAPSULE.DR PO (05:47)
[2022-01-16 06:39] LABS: Creatinine Clr Calc Pharmacy 55.9; Estimated Glomerular Filt Rate > 60
[2022-01-16 07:00] VITALS: BP 132/61; PULSE 62; RESP 18; TEMP 36.2; O2SAT 100
[2022-01-16 07:08] LABS: Glucose, Whole Blood 50 mg/dL (60-115)
[2022-01-16 07:41] LABS: Glucose, Whole Blood 76 mg/dL (60-115)
[2022-01-16] MEDS: lisinopriL 10 MG TABLET PO (07:47)
[2022-01-16] MEDS: Cholecalciferol (Vitamin D3) 25 MCG TABLET 50 MCG PO (07:47)
[2022-01-16] MEDS: methADONE HCl 20 MG/2 ML ORAL.CONC 100 MG PO (07:48)
[2022-01-16] MEDS: Gabapentin 600 MG TABLET PO ×2 (07:48→15:06)
[2022-01-16] MEDS: Aspirin Enteric Coated 81 MG TABLET.DR PO (07:48)
--- NOTE | 2022-01-16 07:55 | P.PNGS_ITS ---
Subjective Subjective Date of Service: 01/16/22 Interval history: Patient feels much improved this morning with less pain. She is able to bend her knee easily and seems very motivated to continue physical therapy. She denies any new complaints. Physical Exam Vital Signs: Vital Signs: Last Vital Signs Temp 97.2 F 01/16/22 07:00 Pulse 62 01/16/22 07:00 Resp 18 01/16/22 07:00 BP 132/61 01/16/22 07:00 Pulse Ox 100 01/16/22 07:00 O2 Del Method 01/16/22 07:00 O2 Flow Rate 2 01/15/22 07:31 BMI result Body Mass Index 25.2 Const: General: comfortable and no acute distress Nutritional Appearance: well nourished Orientation/consciousness: patient oriented x3 Resp: Other: Breathing comfortably on room air, no respiratory distress Skin: Other: Warm, dry, no rash Neuro: General: patient oriented x3 Extrem: Other: Right BKA dressing is clean and intact Objective Data Active Medications Albuterol Sulfate (Albuterol Sulfate 90 Mcg 8 Gm Inhaler) 2 puff INHALE Q4H PRN PRN Reason: Respiratory Distress Aspirin (Aspirin Enteric Coated 81 Mg Tablet.) 81 mg PO DAILY [facility] Last Admin: 01/16/22 07:48 Dose: 81 mg Documented By: CIPRIANO Atorvastatin Calcium (Atorvastatin Calcium 40 Mg Tablet) 40 mg PO BEDTIME [facility] Last Admin: 01/15/22 20:26 Dose: 40 mg Documented By: JCARLOS Bupropion HCl (Bupropion Hcl 75 Mg Tablet) 75 mg PO BID [facility] Last Admin: 01/15/22 20:26 Dose: 75 mg Documented By: JCARLOS Enoxaparin Sodium (Enoxaparin Sodium 40 Mg/0.4 Ml Syringe) 40 mg SUBCUT Q24H [facility] Last Admin: 01/15/22 18:06 Dose: 40 mg Documented By: CIPRIANO Fluticasone Propionate (Fluticasone Propionate 100 Mcg Blst.W.Dev) 2 puff INHALE RBID [facility] Last Admin: 01/15/22 19:57 Dose: 1 puff Documented By: HARINI Gabapentin (Gabapentin 600 Mg Tablet) 600 mg PO TID [facility] Last Admin: 01/16/22 07:48 Dose: 600 mg Documented By: CIPRIANO Acetaminophen (Ofirmev) 1,000 mg in 100 mls @ 400 mls/hr IV Q6H [facility] Last Infusion: 01/16/22 02:48 Dose: 0 mls/hr Documented By: JCARLOS Insulin Glargine (Insulin Glargine,Hum.Rec.Anlog 100 Unit/Ml 10 Ml Vial) 15 unit SUBCUT BEDTIME [facility] Insulin Human Lispro (Insulin Lispro 100 Unit/Ml 3 Ml Vial) 0 unit SUBCUT QIDACHS [facility]; Protocol Last Admin: 01/16/22 07:51 Dose: Not Given Documented By: CIPRIANO Non-Admin Reason: No Insulin Coverage Insulin Human Lispro (Insulin Lispro 100 Unit/Ml 3 Ml Vial) 5 unit SUBCUT QIDACHS [facility] Last Admin: 01/16/22 07:52 Dose: Not Given Documented By: CIPRIANO Non-Admin Reason: blood sugar low Lisinopril (Lisinopril 10 Mg Tablet) 10 mg PO DAILY [facility]; Protocol Last Admin: 01/16/22 07:47 Dose: 10 mg Documented By: CIPRIANO Metformin HCl (Metformin Hcl 1,000 Mg Tablet) 1,000 mg PO BIDWM [facility] Last Admin: 01/16/22 07:52 Dose: Not Given Documented By: CIPRIANO Non-Admin Reason: blood sugar low Methadone HCl (Methadone Hcl 20 Mg/2 Ml Oral.Conc) 100 mg PO DAILY [facility] Last Admin: 01/16/22 07:48 Dose: 100 mg Documented By: CIPRIANO Morphine Sulfate (Morphine Sulfate 4 Mg/Ml Cartridge) 5 mg IVPUSH Q3H PRN; Protocol PRN Reason: Pain, Severe (Pain Scale 7-10) Omeprazole (Omeprazole 20 Mg Capsule.Dr) 20 mg PO DAILY@0630 [facility] Last Admin: 01/16/22 05:47 Dose: 20 mg Documented By: JCARLOS Oxycodone HCl (Oxycodone Hcl Immed Release 5 Mg Tablet) 5 mg PO Q4H PRN PRN Reason: moderate pain Pharmacy Consult (Consult Rx Vancomycin Dosing) 1 each MISCELLANE DAILY PRN PRN Reason: Consult order Sodium Chloride (0.9 % Sodium Chloride Flush 3 Ml Syringe) 3 ml IVFLUSH QSHIFT [facility] Last Admin: 01/15/22 20:30 Dose: 3 ml Documented By: JCARLOS Vitamin D (Cholecalciferol (Vitamin D3) 25 Mcg Tablet) 50 mcg PO DAILY [facility] Last Admin: 01/16/22 07:47 Dose: 50 mcg Documented By: CIPRIANO Labs CBC & Chem 7: 01/11/22 14:32 01/16/22 05:08 Labs: Laboratory Results - last 24 hr 01/15/22 01/15/22 01/15/22 11:10 11:33 14:06 Estim Creat Clear Calc Estimated GFR POC Glucose 55 L* 66 61 01/15/22 01/15/22 01/16/22 15:35 19:45 05:08 Estim Creat Clear Calc 55.9 Estimated GFR > 60 POC Glucose 108 158 H 01/16/22 01/16/22 07:04 07:37 Estim Creat Clear Calc Estimated GFR POC Glucose 50 L* 76 Microbiology Microbiology Results: Microbiology 01/11/22 17:46 Gram Stain - Final Foot Right Routine Culture - Final Proteus mirabilis Methicillin Res Staph Aureus Procedures Date of Service Date of Service: 01/16/22 Progress Note: A&P Assessment and plan (1) Osteomyelitis of ankle: Status: Acute (2) Below-knee amputation of right lower extremity: Status: Acute Plan Patient is doing well following right BKA pod 3. Dressings were changed yesterday evening and the wounds are clean and intact without redness or discharge. Dressing should be changed every other day with 4 x 4 gauze followed by Kerlix followed by a 4 in Ramiro bandage. Patient will need to follow up in the office in approximately 2 weeks if discharged to rehab today. As per Dr. Caro no prolonged antibiotics required at this time. Time Spent With Patient Time: Total time spent is greater than 50% in coordination of care (as documented) at patient's floor/unit and/or counseling patient: Quality Stroke Does the patient have a stroke diagnosis?: No VTE Prior VTE?: No VTE Risk Level:: Medical - moderate - high VTE Device Contraindication: Treatment Not Indicated VTE Drug Contraindication: N/A - Med Ordered
[2022-01-16] MEDS: Fluticasone Propionate 100 MCG BLST.W.DEV 2 PUFF INHALE (08:10)
[2022-01-16 08:11] VITALS: PULSE 69; RESP 16; O2SAT 100
[2022-01-16] MEDS: buPROPion HCL 75 MG TABLET PO (09:10)
[2022-01-16 09:38] VITALS: PULSE 69
[2022-01-16 10:59] VITALS: BP 120/58; PULSE 65; RESP 18; TEMP 37; O2SAT 99
[2022-01-16 11:21] LABS: Glucose, Whole Blood 147 mg/dL (60-115)
[2022-01-16 12:48] LABS: COVID-19 Test Negative (Negative)
--- NOTE | 2022-01-16 13:20 | P.DS_ITS ---
DS: Providers Provider Date of Service: 01/16/22 Date of admission: 01/11/22 18:12 Date of discharge: 01/16/22 Primary care physician: Unknown Physician Consults: 01/11/22 18:14 Consult to Infectious Diseases Routine Consulting Provider: Josefina Caro Reason for consultation: cellulitis and probable osteo of right ankle Has provider been notified: No 01/11/22 18:15 Consult to General Surgery Routine Consulting Provider: Giovany Bennett Reason for consultation: foot ulcer ? need for debridment Has provider been notified: No 01/15/22 08:19 Consult to Infectious Diseases Routine Consulting Provider: Josefina Caro Reason for consultation: osteo s/p BKA, growing St aureus + proteus DS: Diagnosis Discharge Diagnosis (1) Osteomyelitis of ankle: Status: Acute (2) Below-knee amputation of right lower extremity: Status: Acute (3) Diabetic osteomyelitis: Status: Acute DS: Summary Hospital Course Hospital Course: from admission H+P by hospitalist Leroy Espinoza MD, 01/11/22: 62-year-old female with diabetes insulin dependent and not well controlled, hypertension, on meds,? right? Charcot foot/joint With an ulcer at the right malleolus. She presents with increasing pain in the right foot, specifically at the right ankle? are with an open wound with purulent drainage.. Xray shows Interval worsening of deformity around the right ankle joint and right hindfoot and midfoot regions consistent with severe Charcot disease. There is deformity, moderate soft tissue swelling, bone absorption with individual tarsal bones hard to identify. Blood sugar is 508 but without acidosis This 62yo F with DM2 with Charcot foot was admitted with severe osteomyelitis involving the right ankle with disintegration distal tib-fib and ankle. ID and General Surgery were consulted and she was placed on IV vancomycin. She underwent right BKA on 01/13/22. She was discharged to a SNF for short-term rehabilitation and given definitive source control, no further antibiotics are necessary. She will follow up with General Surgery in 1-2 weeks. She should see her primary care doctor after discharged from rehabilitation. Time Spent with Patient Time attestation: Total time spent providing and/or coordinating discharge services: Discharge coordination time: Greater than 30 minutes Quality: Safe Use of Opioids Does Pt have an Active Cancer Diagnosis on the Problem List?: No Quality: Stroke Does the patient have a stroke diagnosis?: No Physical Exam Vital Signs: Vital Signs: Last Vital Signs Temp 98.6 F 01/16/22 10:59 Pulse 65 01/16/22 10:59 Resp 18 01/16/22 10:59 BP 120/58 L 01/16/22 10:59 Pulse Ox 99 01/16/22 10:59 O2 Del Method 01/16/22 10:59 O2 Flow Rate 2 01/15/22 07:31 BMI result Body Mass Index 25.2 Gen: in no acute distress HEENT: sclera anicteric, moist mucus membranes Neck: supple Lungs: clear to auscultation bilaterally Heart: regular rate and rhythm, no murmurs Abd: soft, non-tender, non-distended Ext: s/p R BKA, wound dressing dry Skin: warm/well-perfused Neuro: alert and oriented x3, no focal findings Psych: appropriate affect DS: Data Data Completed and Pending Completed studies during hospitalization [Text1]: Laboratory Results WBC 10.7 X10*3/uL (4.8-10.8) 01/11/22 14:32 RBC 3.35 X10*6/uL (4.20-5.50) L 01/11/22 14:32 Hgb 9.0 g/dl (12.0-16.0) L 01/11/22 14:32 Hct 28.8 % (37.0-47.0) L 01/11/22 14:32 MCV 86.0 fL (80.0-98.0) 01/11/22 14:32 MCH 26.9 pg (27.0-33.0) L 01/11/22 14:32 MCHC 31.3 g/dl (31.0-35.0) 01/11/22 14:32 RDW 13.5 % (11.0-16.0) 01/11/22 14:32 Plt Count 313 X10*3/uL (160-400) 01/11/22 14:32 MPV 10.6 fL (9.4-12.3) 01/11/22 14:32 Immature Gran % (Auto) 0.5 % (0.0-0.4) H 01/11/22 14:32 Neut % (Auto) 80.8 % (45-73) H 01/11/22 14:32 Lymph % (Auto) 11.8 % (20-40) L 01/11/22 14:32 Giles % (Auto) 6.4 % (2-11) 01/11/22 14:32 Eos % (Auto) 0.3 % (0-4) 01/11/22 14:32 Baso % (Auto) 0.2 % (0-2) 01/11/22 14:32 Lymph # (Auto) 1.3 X10*3/uL (1.2-4.9) 01/11/22 14:32 Giles # (Auto) 0.7 X10*3/uL (0.1-1.2) 01/11/22 14:32 Eos # (Auto) 0.0 X10*3/uL (0.0-0.4) 01/11/22 14:32 Baso # (Auto) 0.0 X10*3/uL (0.0-0.2) 01/11/22 14:32 Abs Immat Gran (auto) 0.05 X10*3/uL (0.00-0.03) H 01/11/22 14:32 Absolute Neuts (auto) 8.6 x10*3/uL (2.0-8.3) H 01/11/22 14:32 Absolute Nucleated RBC 0.000 X10*3/uL (0.0-0.012) 01/11/22 14:32 Nucleated RBC % (auto) 0.0 /100WBC (0.0-0.2) 01/11/22 14:32 VBG pH 7.40 (7.32-7.43) 01/11/22 17:52 VBG pCO2 44 mmHg 01/11/22 17:52 VBG pO2 65 mmHg 01/11/22 17:52 VBG HCO3 28 mmol/L (22-26) H 01/11/22 17:52 VBG O2 Saturation 92.0 % 01/11/22 17:52 VBG Base Excess 3.1 mmol/L 01/11/22 17:52 Sodium 129 mmol/L (135-145) L 01/11/22 14:32 Potassium 4.9 mmol/L (3.3-5.1) 01/11/22 14:32 Chloride 93 mmol/L (96-108) L 01/11/22 14:32 Carbon Dioxide 30 mmol/L (22-29) H 01/11/22 14:32 Anion Gap 11 (12-20) L 01/11/22 14:32 BUN 13 mg/dL (9-16) 01/11/22 14:32 Creatinine 0.80 mg/dL (0.5-1.4) 01/16/22 05:08 Estim Creat Clear Calc 55.9 01/16/22 05:08 Estimated GFR > 60 01/16/22 05:08 POC Glucose 147 mg/dL (60-115) H 01/16/22 11:02 Random Glucose 508 mg/dL (60-115) H* 01/11/22 14:32 Lactic Acid 1.5 mmol/L (0.5-2.0) 01/11/22 14:32 Calcium 8.7 mg/dL (8.4-10.2) D 01/11/22 14:32 Total Bilirubin 0.2 mg/dL (0.0-1.0) 01/11/22 14:32 AST 4 U/L (5-31) L D 01/11/22 14:32 ALT < 6 U/L (0-31) 01/11/22 14:32 Alkaline Phosphatase 109 U/L (39-117) 01/11/22 14:32 Total Protein 8.0 g/dL (6.5-8.0) 01/11/22 14:32 Albumin 2.6 g/dL (3.5-5.0) L 01/11/22 14:32 Urine Color YELLOW 01/11/22 21:15 Urine Appearance CLEAR 01/11/22 21:15 Urine pH 5.5 (5.0-8.0) 01/11/22 21:15 Ur Specific [place] 1.015 (1.005-1.025) 01/11/22 21:15 Urine Protein TRACE MG/DL (NEG-TRACE) 01/11/22 21:15 Urine Glucose (UA) >=1000 MG/DL (NEG) H 01/11/22 21:15 Urine Ketones NEG MG/DL (NEG) 01/11/22 21:15 Urine Blood TRACE (NEG) 01/11/22 21:15 Urine Nitrite NEG (NEG) 01/11/22 21:15 Ur Leukocyte Esterase NEG (NEG) 01/11/22 21:15 Urine RBC 0-2 /HPF (0) 01/11/22 21:15 Urine WBC 0 /HPF (0-4) 01/11/22 21:15 Ur Squamous Epith Cells 1+ /LPF 01/11/22 21:15 Urine Bacteria 1+ /LPF 01/11/22 21:15 Vancomycin Trough 14.1 mcg/mL (10.0-20.0) 01/14/22 17:09 Acetone, Qual Negative (Negative) 01/11/22 14:32 COVID-19 (SONG) Negative (Negative) 01/16/22 12:00 COVID-19 Clin Com See Note 01/16/22 12:00 Impressions Ankle X-Ray 01/11/22 14:22 IMPRESSION: Interval worsening of deformity around the right ankle joint and right hindfoot and midfoot regions consistent with severe Charcot disease. There is deformity, moderate soft tissue swelling, bone absorption with individual tarsal bones hard to identify. Foot X-Ray 01/11/22 14:22 IMPRESSION: Interval worsening of deformity around the right ankle joint and right hindfoot and midfoot regions consistent with severe Charcot disease. There is deformity, moderate soft tissue swelling, bone absorption with individual tarsal bones hard to identify. Microbiology 01/11/22 17:46 Foot Right Gram Stain - Final 01/11/22 17:46 Foot Right Routine Culture - Final Proteus mirabilis Methicillin Res Staph Aureus 01/11/22 14:59 Blood - Venous Blood Culture - Preliminary No growth after 48 hours. 01/11/22 14:32 Blood - Venous Blood Culture - Preliminary No growth after 48 hours. Pending studies at discharge: Pending at discharge 01/13/22 14:32 Surgical [PTH] Stat Discharge Plan Discharge Patient Disposition: Xfer SNF Discharge Diagnosis: osteomyelitis Referrals: Paige Caldera [Nurse Practitioner] - 1 Week Giovany Bennett MD [Physician] - 1 Week Discharge Medications: New insulin glargine [Lantus U-100 Insulin] 100 unit/mL Solution 15 unit subcut BEDTIME Qty: 10 0RF oxycodone 5 mg Tablet 5 mg PO Q4H PRN (Reason: moderate pain) Qty: 18 0RF Rx Instructions: Partial Fill upon patient request. [place] [facility] [place] .ROUTE .MEDSUPPLY Qty: 1 0RF Rx Instructions: As directed fluticasone propionate [Flovent HFA] 110 mcg/actuation Hfa Aerosol Inhaler 2 puff INHALATION BID methadone [Methadone Intensol] 10 mg/mL Concentrate 100 mg PO DAILY insulin aspart U-100 [Novolog Flexpen U-100 Insulin] 100 unit/mL (3 mL) insulin pen See Rx Instructions .ROUTE .COMPLEX Rx Instructions: SLIDING SCALE gabapentin 600 mg tablet 600 mg PO TID (DME) lancets 33 gauge [facility] [place] See Rx Instructions Not Applicable TID Qty: 100 Rx Instructions: As directed cholecalciferol (vitamin D3) 50 mcg (2,000 unit) tablet 50 mcg PO DAILY albuterol sulfate 90 mcg/actuation HFA aerosol inhaler 2 puff PO Q4H PRN (Reason: Respiratory Distress) lisinopril 10 mg tablet 10 mg PO DAILY omeprazole 20 mg capsule,delayed release(DR/EC) 20 mg PO DAILY metformin 1,000 mg tablet 1,000 mg PO BIDWMEAL aspirin 81 mg tablet,delayed release (DR/EC) 81 mg PO DAILY bupropion HCl 150 mg tablet sustained-release 12 hr 150 mg PO BID atorvastatin 40 mg tablet 40 mg PO DAILY Discontinued Tresiba FlexTouch U-100 100 unit/mL (3 mL) insulin pen 40 unit subcut BEDTIME Rx Instructions: TAKES 40-45 IN THE MORNING Discharge Orders: Discharge Order (Routine); Ordered 01/16/22 Ordered By: Cody Smith Activity on Discharge: Walk with crutches Stand Alone Forms: Patient Portal Discharge page Care Plan Goals: recover from surgery Health Concerns: diabetic osteomyelitis Plan of Treatment: To short-term rehabilitation No antibiotics required Dressing should be changed every other day with 4 x 4 gauze followed by Kerlix followed by a 4 in Ramiro bandage.? follow up with Dr Bennett from [facility] [place] General Surgery in 1-2 weeks See your primary care doctor after discharge from rehabilitation Assessment: See Discharge Summary
--- NOTE | 2022-01-16 13:55 | MHC.CM.PN ---
Addendum entered by Gabrielle Davis 01/16/22 16:01: [facility] HAS INDICATED THEY HAVE EVERYTHING THEY NEED TO ADMIT PT TRANSPORT REQUESTED WITH [facility] FOR 1800 HOURS PT WILL START RECEIVING HER METHADONE DOSE AT [facility] IN [place] TOMORROW Original Note: PT IS CLEARED TO DC TO STR TODAY [facility] IS OFFERING A BED PENDING PT BEING SET UP AT [facility] IN [place] FOR GUEST METHADONE DOSING CM HAS CONTACTED [facility] MULTIPLE TIMES TO GET CONFIRMATION THAT PT IS SET TO DC. THEY REPORT IT IS STILL PENDING SABAS HAS CONTACTED LALO [phone] AT [facility] IN [facility] [place]. LALO REPORTS SHE SPOKE TO [facility] AND THEY INDICATED PT WOULD BE READY TO START CARE THERE TOMORROW PENDING RECEIPT OF HER DOSE HX AND SIGNED DC SUMMARY BOTH WERE FAXED TO THE NUMBER PROVIDED [phone] SABAS HAS LEFT TWO MESSAGES FOR [facility] INFORMING HER OF ABOVE. CURRENTLY AWAITING CONFIRMATION THAT THEY ARE PREPARED TO ACCEPT PT.
[2022-01-16 15:30] VITALS: BP 126/58; PULSE 66; RESP 18; TEMP 36.5; O2SAT 98
[2022-01-16 15:50] LABS: Glucose, Whole Blood 160 mg/dL (60-115)
[2022-01-16] MEDS: Insulin Lispro 100 UNIT/ML 3 ML VIAL SUBCUT ×2 (16:46→16:47)
[2022-01-16] MEDS: metFORMIN HCl 1,000 MG TABLET 1000 MG PO (16:47)
== END 2022-01-16 18:27 | disposition skilled nursing facility (03) | DRG 617 ==
LOC: HO.ED 17:24 → HO.EDOVER 18:17 → HO.S3 01-12 18:26
PROVIDERS: Physician Assistant; Surgery; Admitting Provider Internal Medicine; Emergency Provider Emergency Medicine; PCP Nurse Practitioner Family; Visit Provider Family Medicine
PROC: 0Y6H0Z2 Detachment at Right Lower Leg, Mid, Open Approach (ICD-10-PCS; CPT 27880; principal; 2022-01-13 12:30)
DX: E11.69 Type 2 diabetes mellitus with other specified complication (principal); F11.20 Opioid dependence, uncomplicated; L03.115 Cellulitis of right lower limb; M86.9 Osteomyelitis, unspecified; E11.610 Type 2 diabetes mellitus with diabetic neuropathic arthropathy; E11.621 Type 2 diabetes mellitus with foot ulcer; L97.519 Non-pressure chronic ulcer of other part of right foot with unspecified severity; E11.40 Type 2 diabetes mellitus with diabetic neuropathy, unspecified; K21.9 Gastro-esophageal reflux disease without esophagitis; E78.5 Hyperlipidemia, unspecified; E11.628 Type 2 diabetes mellitus with other skin complications; F32.A Depression, unspecified; E11.65 Type 2 diabetes mellitus with hyperglycemia; B96.4 Proteus (mirabilis) (morganii) as the cause of diseases classified elsewhere; B95.61 Methicillin susceptible Staphylococcus aureus infection as the cause of diseases classified elsewhere; F17.210 Nicotine dependence, cigarettes, uncomplicated; Z71.6 Tobacco abuse counseling; Z20.822 Contact with and (suspected) exposure to COVID-19; Z86.711 Personal history of pulmonary embolism; Z98.42 Cataract extraction status, left eye; Z98.41 Cataract extraction status, right eye; Z79.4 Long term (current) use of insulin; Z79.51 Long term (current) use of inhaled steroids; Z79.84 Long term (current) use of oral hypoglycemic drugs; Z79.899 Other long term (current) drug therapy
CPT/HCPCS: 36415; 73610; 73630; 80053; 80202; 81001; 82009; 82565; 82803; 82947; 83605; 85025; 87040; 87071; 87077; 87186; 87205; 87635; 88307; 88311; 94640; 94664; 96361; 96365; 96375; 97110; 97116; 97162; 99285; J0131; J0690; J0692; J1170; J1650; J2250; J2270; J3010; J3370

== ENCOUNTER → 2022-02-20 13:14 | Outpatient (BNVA) | payer MEDICARE, MEDICAID, SELFPAY | PROVIDERS: PCP Nurse Practitioner Family; Visit Provider Surgery | DX: E11.610 Type 2 diabetes mellitus with diabetic neuropathic arthropathy (principal); E11.69 Type 2 diabetes mellitus with other specified complication; M86.9 Osteomyelitis, unspecified; Z89.511 Acquired absence of right leg below knee; Z79.4 Long term (current) use of insulin; Z09 Encounter for follow-up examination after completed treatment for conditions other than malignant neoplasm | CPT/HCPCS: 99212 ==

== ENCOUNTER 2022-09-11 23:32 | Emergency (ER) | payer MEDICARE, MEDICAID, SELFPAY ==
--- NOTE | ~2022-09-11 | CT_ITS ---
EXAMINATION: CT ABDOMEN AND PELVIS WITHOUT CONTRAST CLINICAL INFORMATION: Upper abdominal pain COMPARISON: 06/04/2021 TECHNIQUE: Multidetector volumetric imaging was performed from the superior aspect of the liver through the pubic symphysis. Sagittal and coronal reformatted images were obtained on the technologist's workstation. This CT examination was performed using dose optimization techniques as appropriate, variously including the following: *Automated exposure control *Adjustment of mA and/or kV according to patient size (this includes techniques or standardized protocols for targeted exams where dose is matched to indication/reason for exam; i.e. extremities or head) *Use of iterative reconstruction technique DLP: 439 mGy-cm FINDINGS: IMAGED THORAX: Chronic interstitial thickening lower lungs and bronchial thickening. Coronary calcifications. LIVER, GALLBLADDER, AND BILIARY TREE: The liver is normal in size, shape, and attenuation. No focal hepatic lesion or biliary ductal dilatation is present. Cholecystectomy. PANCREAS: Unremarkable. SPLEEN: Unremarkable. ADRENAL GLANDS: Unremarkable. KIDNEYS AND URETERS: The kidneys are normal in size, shape, and attenuation. There are 2 punctate nonobstructive calculi right kidney. No hydronephrosis or hydroureter. No perinephric stranding. BLADDER: Unremarkable. GASTROINTESTINAL TRACT: The small and large bowel are unremarkable. The appendix is unremarkable. ABDOMINAL WALL: No significant hernia is appreciated. LYMPH NODES: Normal. VASCULAR: Aorta shows extensive calcific atherosclerosis. No aortic aneurysm. PELVIC VISCERA: Uterus and adnexa unremarkable. OSSEOUS STRUCTURES: No acute or suspicious osseous abnormalities. CT/CT abdomen pelvis wo IV con IMPRESSION: * No acute findings within the abdomen or pelvis to explain the patient's symptomatology. * Cholecystectomy. * Nonobstructive right intrarenal calculi.
[2022-09-11 23:46] VITALS: BP 118/60; BP 131/71; PULSE 66; PULSE 78; RESP 16; TEMP 36.9; O2SAT 97; BMI 24.5
--- NOTE | 2022-09-12 00:33 | ED_ITS ---
HPI - Abdominal Pain General Chief Complaint: Nausea/Vomiting/Diarrhea Stated Complaint: ABD Pain with N/V Time Seen by Provider: 09/12/22 00:26 Source: patient Mode of arrival: ambulatory Limitations: no limitations History of Present Illness HPI narrative: Patient diabetic otherwise healthy complaining of pain in upper abdomen epigastric area is 3 days with nausea and vomiting multiple times unable to hold any liquids down blood sugar was elevated in 300 range no history of kidney stone or gallstones no fever or chills no urinary symptoms Related Data Home Medications Medication Instructions Recorded Confirmed albuterol sulfate 90 mcg/actuation 2 puff PO Q4H PRN Respiratory 04/24/20 04/15/22 aerosol inhaler Distress aspirin 81 mg tablet,delayed 81 mg PO DAILY 04/24/20 04/15/22 release atorvastatin 40 mg tablet 40 mg PO DAILY 04/24/20 04/15/22 bupropion HCl 150 mg tablet,12 hr 150 mg PO BID 04/24/20 04/15/22 sustained-release cholecalciferol (vitamin D3) 50 50 mcg PO DAILY 04/24/20 04/15/22 mcg (2,000 unit) tablet lancets 33 gauge #100 ea 04/24/20 04/15/22 lisinopril 10 mg tablet 10 mg PO DAILY 04/24/20 04/15/22 metformin 1,000 mg tablet 1,000 mg PO BIDWMEAL 04/24/20 04/15/22 omeprazole 20 mg capsule,delayed 20 mg PO DAILY 04/24/20 04/15/22 release gabapentin 600 mg tablet 600 mg PO TID 05/03/20 04/15/22 fluticasone propionate 110 2 puff inhalation BID 05/28/20 04/15/22 mcg/actuation HFA aerosol inhaler (Flovent HFA) methadone 10 mg/mL oral 100 mg PO DAILY 05/28/20 04/15/22 concentrate (Methadone Intensol) insulin aspart U-100 100 unit/mL See Rx Instructions .Route .COMPLEX 12/26/20 04/15/22 (3 mL) subcutaneous pen (Novolog FlexPen U-100 Insulin aspart) Previous Rx's Medication Instructions Recorded walker #1 ea 10/11/20 insulin glargine 100 unit/mL 15 unit (0.15 mL) subcut BEDTIME 01/16/22 subcutaneous solution (Lantus #10 mL U-100 Insulin) oxycodone 5 mg tablet 5 mg PO Q4H PRN moderate pain #18 01/16/22 tabs Allergies Allergy/AdvReac Type Severity Reaction Status Date / Time No Known Allergies Allergy Verified 04/15/22 10:15 Review of Systems Review of Systems Constitutional : No Weight loss, No Fever, No Chills ENT/Mouth : No sore throat, No Rhinorrhea Eyes: No Eye Pain, No Swelling Cardiovascular : No Chest Pain, no palpitations Respiratory : No Cough, No Sputum, no shortness of breath Gastrointestinal : + Nausea, + Vomiting, No Diarrhea, + abdominal Pain, no black stools Genitourinary : No Dysuria, No Urinary Frequency Musculoskeletal : No joint pain, No Myalgias, No Joint Swelling Skin : No Skin Lesions, No rash Neuro : No Weakness, No Numbness, No Dizziness, No Headache Psych : No Anxiety/Panic, No Depression Heme/Lymph: No Bruising, No Lymphadenopathy Endocrine : No Polyuria, No Polydipsia All other systems reviewed and are negative Yes all other systems are reviewed and are negative [facility] Past Medical History Medical History Acute hyperglycemia Below-knee amputation of right lower extremity Cellulitis Charcot foot due to diabetes mellitus Chronic prescription opiate use COPD (chronic obstructive pulmonary disease) Depression Diabetes mellitus Diabetic foot ulcer Dyslipidemia Glaucoma New onset of congestive heart failure Osteomyelitis of ankle Pulmonary emboli Pulmonary nodule Tobacco dependence Surgical History Cataract extraction status, left eye Cataract extraction status, right eye History of below-knee amputation of right lower extremity (01/13/22) Hx of cholecystectomy Family History Family History Other CVA (cerebral vascular accident) Social History Social History Household Members: Spouse Housing: Apartment Housing Other:: hotel Do you presently have visiting nurse or other home services: No Unable to assess alcohol history related to: Unknown Alcohol intake: never Patient Tobacco Use Status: Current everyday Tobacco user Tobacco use type: Cigarette Cigarette Packs Per Day: 0.5 Cigarettes Per Day: 5 Years Smoked: 45 e-Cigarette/Vaping Use: Currently Using Second Hand Smoke Exposure: No Substance Use Type: Heroin Advance Directives: Yes Advance Directives on File: Yes Advance Directives Date on File: 01/12/22 service: No (hx on methadone) Current occupational status: disabled Physical Exam ED Vital Signs: Vital Signs - 24 hr 09/11/22 23:46 Temperature 98.4 F Pulse Rate 66 Respiratory Rate 16 Blood Pressure 131/71 Pulse Oximetry 97 Oxygen Delivery Method Room Air BMI result Body Mass Index 24.5 Appearance: Alert. Oriented X3. In mild distress. Eyes: PERRLA, No Nystagmus ENT: Pharynx normal. Oral Mucosa moist Neck: Normal inspection. Neck supple. CVS: Normal heart rate and rhythm. Pulses normal. Respiratory: No respiratory distress. Equal air entry bilateral, no wheezing/rales/rhonchi Abdomen: Soft , tenderness in epigastric no rebound tenderness or guarding Villeda sign negative Bowel sounds are present, no mass palpable, right CVA tenderness Skin: Skin warm and dry. Normal skin color. Normal skin turgor. Extremities: No lower extremity edema. No calf tenderness Neuro: Oriented X 3. No motor deficit. No sensory deficit. Medical Decision Making Medical Decision Making [facility] Narrative: Patient with upper abdominal pain for last 3 days lab workup shows leukocytosis blood glucose of 363 CT scan preliminary report read myself negative final report is pending UA is pending patient signed of Dr. Duenas for follow-up the reports and disposition accordingly Differential Diagnosis Cholecystitis/pancreatitis/gastritis/UTI Lab Data [facility] Lab Attestation statement: I reviewed the patient's lab results. 09/12/22 00:55 09/12/22 00:55 Labs: Lab Results 09/12/22 09/12/22 09/12/22 Range/Units 00:42 00:55 00:55 WBC 14.7 H (4.8-10.8) X10*3/uL RBC 4.42 D (4.20-5.50) X10*6/uL Hgb 11.3 L D (12.0-16.0) g/dl Hct 34.9 L D (37.0-47.0) % MCV 79.0 L (80.0-98.0) fL MCH 25.6 L (27.0-33.0) pg MCHC 32.4 (31.0-35.0) g/dl RDW 15.1 (11.0-16.0) % Plt Count 452 H D (160-400) X10*3/uL MPV 10.1 (9.4-12.3) fL Immature Gran % (Auto) 0.5 H (0.0-0.4) % Neut % (Auto) 80.5 H (45-73) % Lymph % (Auto) 12.0 L (20-40) % [place] % (Auto) 6.7 (2-11) % Eos % (Auto) 0.1 (0-4) % Baso % (Auto) 0.2 (0-2) % Lymph # (Auto) 1.8 (1.2-4.9) X10*3/uL [place] # (Auto) 1.0 (0.1-1.2) X10*3/uL Eos # (Auto) 0.0 (0.0-0.4) X10*3/uL Baso # (Auto) 0.0 (0.0-0.2) X10*3/uL Abs Immat Gran (auto) 0.07 H (0.00-0.03) X10*3/uL Absolute Neuts (auto) 11.9 H (2.0-8.3) x10*3/uL Absolute Nucleated RBC 0.000 (0.0-0.012) X10*3/uL Nucleated RBC % (auto) 0.0 (0.0-0.2) /100WBC Sodium 128 L (135-145) mmol/L Potassium 4.4 (3.3-5.1) mmol/L Chloride 90 L (96-108) mmol/L Carbon Dioxide 26 (22-29) mmol/L Anion Gap 16 (12-20) BUN 32 H (9-16) mg/dL Creatinine 1.31 (0.5-1.4) mg/dL Estim Creat Clear Calc 33.7 Estimated GFR 41 POC Glucose 313 H (60-115) mg/dL Random Glucose 363 H* (60-115) mg/dL Lactic Acid (0.5-2.0) mmol/L Calcium 9.6 D (8.4-10.2) mg/dL Magnesium 1.5 L (1.6-2.6) mg/dL Total Bilirubin 0.5 (0.0-1.0) mg/dL AST 7 (5-31) U/L ALT < 6 (0-31) U/L Alkaline Phosphatase 118 H (39-117) U/L Total Protein 8.0 (6.5-8.0) g/dL Albumin 3.6 (3.5-5.0) g/dL Lipase 21 (8-78) U/L Acetone, Qual Negative (Negative) COVID-19 ([facility]) (Negative) COVID-19 Clin Com 09/12/22 09/12/22 Range/Units 00:55 00:55 WBC (4.8-10.8) X10*3/uL RBC (4.20-5.50) X10*6/uL Hgb (12.0-16.0) g/dl Hct (37.0-47.0) % MCV (80.0-98.0) fL MCH (27.0-33.0) pg MCHC (31.0-35.0) g/dl RDW (11.0-16.0) % Plt Count (160-400) X10*3/uL MPV (9.4-12.3) fL Immature Gran % (Auto) (0.0-0.4) % Neut % (Auto) (45-73) % Lymph % (Auto) (20-40) % [place] % (Auto) (2-11) % Eos % (Auto) (0-4) % Baso % (Auto) (0-2) % Lymph # (Auto) (1.2-4.9) X10*3/uL [place] # (Auto) (0.1-1.2) X10*3/uL Eos # (Auto) (0.0-0.4) X10*3/uL Baso # (Auto) (0.0-0.2) X10*3/uL Abs Immat Gran (auto) (0.00-0.03) X10*3/uL Absolute Neuts (auto) (2.0-8.3) x10*3/uL Absolute Nucleated RBC (0.0-0.012) X10*3/uL Nucleated RBC % (auto) (0.0-0.2) /100WBC Sodium (135-145) mmol/L Potassium (3.3-5.1) mmol/L Chloride (96-108) mmol/L Carbon Dioxide (22-29) mmol/L Anion Gap (12-20) BUN (9-16) mg/dL Creatinine (0.5-1.4) mg/dL Estim Creat Clear Calc Estimated GFR POC Glucose (60-115) mg/dL Random Glucose (60-115) mg/dL Lactic Acid 1.0 (0.5-2.0) mmol/L Calcium (8.4-10.2) mg/dL Magnesium (1.6-2.6) mg/dL Total Bilirubin (0.0-1.0) mg/dL AST (5-31) U/L ALT (0-31) U/L Alkaline Phosphatase (39-117) U/L Total Protein (6.5-8.0) g/dL Albumin (3.5-5.0) g/dL Lipase (8-78) U/L Acetone, Qual (Negative) COVID-19 ([facility]G) Negative (Negative) COVID-19 Clin Com See Note Medications Administered Discontinued Medications Generic Name Dose Route Start Last Admin Trade Name Freq PRN Reason Stop Dose Admin Famotidine 20 mg 09/12/22 00:44 09/12/22 01:09 Famotidine/Pf 20 Mg/2 Ml Vial IVPUSH 09/12/22 00:45 20 mg ONCE ONE Administration Sodium Chloride 1,000 mls @ 999 mls/hr 09/12/22 00:44 09/12/22 00:56 Ns IV 09/12/22 01:44 999 mls/hr .Q1H1M ONE Administration Morphine Sulfate 4 mg 09/12/22 00:44 09/12/22 01:09 Morphine Sulfate 4 Mg/Ml Cartridge IVPUSH 09/12/22 00:45 4 mg ONCE ONE Administration Protocol Ondansetron HCl 4 mg 09/12/22 00:44 09/12/22 01:09 Ondansetron Hcl 4 Mg/2 Ml Vial IVPUSH 09/12/22 00:45 4 mg ONCE ONE Administration Discharge Plan Discharge Clinical Impression: Abdominal pain Patient Disposition: Still a Patient Prescriptions: No Action (DME) saad Samuel See Rx Instructions .ROUTE .MEDSUPPLY Qty: 1 0RF Rx Instructions: As directed fluticasone propionate [Flovent HFA] 110 mcg/actuation Hfa Aerosol Inhaler 2 puff INHALATION BID methadone [Methadone Intensol] 10 mg/mL Concentrate 100 mg PO DAILY insulin aspart U-100 [Novolog FlexPen U-100 Insulin] 100 unit/mL (3 mL) insulin pen See Rx Instructions .ROUTE .COMPLEX Rx Instructions: SLIDING SCALE insulin glargine [Lantus U-100 Insulin] 100 unit/mL Solution 15 unit subcut BEDTIME Qty: 10 0RF oxycodone 5 mg Tablet 5 mg PO Q4H PRN (Reason: moderate pain) Qty: 18 0RF Rx Instructions: Partial Fill upon patient request. gabapentin 600 mg tablet 600 mg PO TID (DME) lancets 33 gauge misc See Rx Instructions Not Applicable TID Qty: 100 Rx Instructions: As directed cholecalciferol (vitamin D3) 50 mcg (2,000 unit) tablet 50 mcg PO DAILY albuterol sulfate 90 mcg/actuation HFA aerosol inhaler 2 puff PO Q4H PRN (Reason: Respiratory Distress) lisinopril 10 mg tablet 10 mg PO DAILY omeprazole 20 mg capsule,delayed release(DR/EC) 20 mg PO DAILY metformin 1,000 mg tablet 1,000 mg PO BIDWMEAL aspirin 81 mg tablet,delayed release (DR/EC) 81 mg PO DAILY bupropion HCl 150 mg tablet sustained-release 12 hr 150 mg PO BID atorvastatin 40 mg tablet 40 mg PO DAILY
[2022-09-12 00:46] LABS: Glucose, Whole Blood 313 mg/dL (60-115)
[2022-09-12] MEDS: 0.9 % Sodium Chloride 1,000 ML 999 ML IV (00:56)
[2022-09-12 01:02] LABS: MANUAL DIFF FLAG NO
[2022-09-12 01:03] LABS: Basophils Percent Auto 0.2 % (0-2); Eosinophils Percent Auto 0.1 % (0-4); Hematocrit 34.9 % (37.0-47.0); Hemoglobin 11.3 g/dl (12.0-16.0); Imm Gran Abs Auto 0.07 X10*3/uL (0.00-0.03); Imm Gran Pct Auto 0.5 % (0.0-0.4); Lymphocytes Absolute Auto 1.8 X10*3/uL (1.2-4.9); Mean Corpuscular HGB Conc 32.4 g/dl (31.0-35.0); Mean Corpuscular Hemoglobin 25.6 pg (27.0-33.0); Mean Platelet Volume 10.1 fL (9.4-12.3); Monocytes Percent Auto 6.7 % (2-11); Neutrophils Absolute Auto 11.9 x10*3/uL (2.0-8.3); Neutrophils Percent Auto 80.5 % (45-73); Platelet Count 452 X10*3/uL (160-400); Red Blood Count 4.42 X10*6/uL (4.20-5.50); Red Cell Distribution Width 15.1 % (11.0-16.0); White Blood Count 14.7 X10*3/uL (4.8-10.8)
[2022-09-12] MEDS: Famotidine/PF 20 MG/2 ML VIAL IVPUSH (01:09)
[2022-09-12] MEDS: Morphine Sulfate 4 MG/ML CARTRIDGE IVPUSH (01:09)
[2022-09-12] MEDS: ondansetron HCL 4 MG/2 ML VIAL IVPUSH (01:09)
[2022-09-12 01:16] LABS: COVID-19 Test Negative (Negative); IDNOW Serial# BCCEAD1C
[2022-09-12 01:28] LABS: Acetone, serum QL Negative (Negative)
[2022-09-12 01:31] LABS: Alanine Aminotransferase < 6 U/L (0-31); Albumin Level 3.6 g/dL (3.5-5.0); Alkaline Phosphatase 118 U/L (39-117); Anion Gap 16 (12-20); Aspartate Amino Transferase 7 U/L (5-31); Bilirubin Total 0.5 mg/dL (0.0-1.0); Blood Urea Nitrogen 32 mg/dL (9-16); Calcium 9.6 mg/dL (8.4-10.2); Carbon Dioxide 26 mmol/L (22-29); Chloride 90 mmol/L (96-108); Creatinine Clr Calc Pharmacy 33.7; Estimated Glomerular Filt Rate 41; Glucose Random 363 mg/dL (60-115); Lipase 21 U/L (8-78); Magnesium 1.5 mg/dL (1.6-2.6); Potassium 4.4 mmol/L (3.3-5.1); Sodium 128 mmol/L (135-145)
[2022-09-12] MEDS: Insulin Lispro 100 UNIT/ML 3 ML VIAL 12 UNIT SUBCUT (03:06)
[2022-09-12 03:09] VITALS: BP 139/77; PULSE 62; RESP 16; TEMP 36.8; O2SAT 97
--- NOTE | 2022-09-12 03:09 | PC.NURSE ---
Medicated per Sep, Notified SUSANA [place]
[2022-09-12 06:21] VITALS: BP 117/68; PULSE 61; RESP 16; TEMP 36.9; O2SAT 96
[2022-09-12 06:40] LABS: Color Urine Yellow; Glucose Urine UA >=1000 mg/dL (Negative); Leukocyte Esterase Urine Negative (Negative); Nitrite Urine Negative (Negative); PH 5.5 (5.0-9.0); Specific Gravity - Urine 1.025 (1.005-1.025); UMIC TRIGGER UACC YES; Urine Blood Negative (Negative); Urine Ketones 15 mg/dL (Negative); Urine Protein 300 (3+) mg/dL (Neg-Trace)
[2022-09-12 06:41] LABS: Appearance Urine Hazy
[2022-09-12 06:43] LABS: Bacteria Urine None Seen (None Seen); Hyaline Casts Urine 0-2 /LPF (0-2); RBC Urine 0-2 /HPF (0-2); WBC Urine 0-5 /HPF (0-5)
[2022-09-12 06:52] LABS: Glucose, Whole Blood 116 mg/dL (60-115)
[2022-09-12 07:22] VITALS: BP 139/82; PULSE 63; RESP 16; TEMP 36.7; O2SAT 98
[2022-09-12 07:35] LABS: Anion Gap 13 (12-20); Blood Urea Nitrogen 32 mg/dL (9-16); Calcium 9.3 mg/dL (8.4-10.2); Carbon Dioxide 29 mmol/L (22-29); Chloride 96 mmol/L (96-108); Estimated Glomerular Filt Rate 49; Glucose Random 136 mg/dL (60-115); Potassium 3.6 mmol/L (3.3-5.1); Sodium 134 mmol/L (135-145)
--- NOTE | 2022-09-12 08:28 | PC.NURSE ---
Ashwin (spouse) [phone] call when pt ready for d/c
== END 2022-09-12 09:27 | disposition home or self-care (01) ==
PROVIDERS: Emergency Medicine; Emergency Provider Internal Medicine; PCP Internal Medicine
DX: R11.2 Nausea with vomiting, unspecified (principal); R19.7 Diarrhea, unspecified; Z20.822 Contact with and (suspected) exposure to COVID-19; Z20.828 Contact with and (suspected) exposure to other viral communicable diseases; Z79.899 Other long term (current) drug therapy
CPT/HCPCS: 36415; 74176; 80048; 80053; 81001; 82009; 82947; 83605; 83690; 83735; 85025; 87040; 87635; 96361; 96374; 96375; 99284; 99285; J2270; J2405

== ENCOUNTER 2022-11-25 13:14 | Outpatient (REF) | payer MEDICARE, MEDICAID, SELFPAY ==
--- NOTE | ~2022-11-25 | MM_ITS ---
EXAMINATION: MM SCREENING DIGITAL BREAST TOMOSYNTHESIS, BILATERAL CLINICAL INFORMATION: Screening. Asymptomatic. The lifetime risk of breast cancer based on the Tyrer-Cuzick Model is 5.2%. COMPARISON: Mammography: February 04, 2016 and July 18, 2009 TECHNIQUE: Digital breast tomosynthesis is performed in both the craniocaudal and mediolateral oblique views along with computer-aided detection (CAD). Synthesized 2D images are generated from the tomosynthesis. FINDINGS: The breasts are heterogeneously dense, which may obscure small masses (ACR BI-RADS breast composition Category c). There are no significant masses, abnormal calcifications, or other abnormalities. MM/MM tomosynthesis screening BI IMPRESSION: No significant changes from prior exam. ASSESSMENT: BI-RADS 1: Negative RECOMMENDATION: Routine annual mammography screening. This patient's information was entered into a reminder system with a target due date for their next mammogram.
--- NOTE | ~2022-11-25 | MM_ITS ---
EXAMINATION: BONE DENSITOMETRY CLINICAL INDICATION: Postmenopausal. COMPARISON: None (current study represents initial baseline exam). TECHNIQUE: Using a [employer] DXA System (software version: 13.1) manufactured by [email or web address], dual-energy x-ray absorptiometry was performed of the lumbar spine and left hip. The images are of good technical quality. Summary results are attached. FINDINGS: AP SPINE L1-L4: BMD 1.167 g/cm2, Z-score 1.4, T-score -0.1, normal. LEFT FEMUR, NECK: BMD 0.587 g/cm2, Z-score -1.9, T-score -3.2, osteoporosis. LEFT FEMUR, TOTAL: BMD 0.702 g/cm2, Z-score -1.3, T-score -2.4, osteopenia. IDENTIFIED RISK FACTORS: History of fracture (adult), menopause, tobacco user (current smoker), type 1 diabetes. HISTORY OF FRACTURE: Wrist. MEDICATIONS: Vitamin D. MM/XR DEXA axial skeleton IMPRESSION: 1. DIAGNOSIS: Osteoporosis based on the lowest T-score value of -3.2 in the femoral neck applying World Health Organization criteria. 2. 10-YEAR FRACTURE RISK PREDICTION, FRAX: According to the guidelines, FRAX calculation should only be performed on patients in the osteopenia bone density category. Therefore, FRAX was not performed on this patient. 3. Treatment Recommendations: NOF guidelines recommend consideration for treatment in postmenopausal women and men age 50 and older presenting with the following: -A hip or vertebral (clinical or morphometric) fracture. -T-score less than or equal to -2.5 at the femoral neck or spine after appropriate evaluation to exclude secondary causes. -Low bone mass at the hip or spine and a 10-year fracture probability by FRAX of greater than or equal to 3% for hip fracture or greater than or equal to 20% for major osteoporotic fracture based on the [place] adapted WHO algorithm. 4. Other Recommendations: All treatment decisions require clinical judgment and consideration of individual patient factors, including patient preferences, comorbidities, previous drug use, risk factors not captured in the FRAX model (e.g. frailty, falls, vitamin D deficiency, increased bone turnover, interval significant decline in bone density) and possible under or overestimation of fracture risk by FRAX. Additional medical evaluation for secondary cause of low bone mineral density may be appropriate. FUTURE SCAN RECOMMENDATION: People with diagnosed cases of osteoporosis or at high risk for fracture should have regular bone mineral density tests. For patients eligible for Medicare, routine testing is allowed once every 2 years. The testing frequency can be increased to one year for patients who have rapidly progressing disease, those who are receiving or discontinuing medical therapy to restore bone mass, or have additional risk factors.
== END 2022-11-25 13:15 | disposition home or self-care (01) ==
LOC: HO.MAMMO 13:14
PROVIDERS: PCP Internal Medicine; Visit Provider Internal Medicine
DX: Z12.31 Encounter for screening mammogram for malignant neoplasm of breast (principal); Z13.820 Encounter for screening for osteoporosis; Z78.0 Asymptomatic menopausal state
CPT/HCPCS: 77063; 77067; 77080

== ENCOUNTER 2022-12-08 23:02 | Emergency (ER) | payer MEDICARE, MEDICAID, SELFPAY ==
--- NOTE | ~2022-12-08 | CT_ITS ---
EXAMINATION: CT ABDOMEN AND PELVIS WITH CONTRAST CLINICAL INFORMATION: Diffuse abdominal pain COMPARISON: 09/12/2022 TECHNIQUE: Multidetector volumetric images were obtained from the superior aspect of the liver through the pubic symphysis following administration 85 mL of Omnipaque 350 intravenous contrast. Sagittal and coronal reformatted images were obtained on the technologist's workstation. Oral contrast: No This CT examination was performed using dose optimization techniques as appropriate, variously including the following: *Automated exposure control *Adjustment of mA and/or kV according to patient size (this includes techniques or standardized protocols for targeted exams where dose is matched to indication/reason for exam; i.e. extremities or head) *Use of iterative reconstruction technique DLP: 590 mGy-cm FINDINGS: LUNG BASES: Bibasilar atelectasis. Coronary artery calcifications. LIVER, GALLBLADDER, AND BILIARY TREE: The liver is normal in size, shape, and attenuation. No focal hepatic lesion or biliary ductal dilatation is present. Cholecystectomy. Dilated common bile duct without ductal filling defect. PANCREAS: Mild diffuse atrophy. No focal lesion. SPLEEN: Unremarkable. ADRENAL GLANDS: Unremarkable. KIDNEYS AND URETERS: The kidneys are normal in size, shape, and attenuation. No hydronephrosis, hydroureter, or calculi seen. No perinephric stranding. BLADDER: Unremarkable. GASTROINTESTINAL TRACT: The small and large bowel are unremarkable. The appendix is unremarkable. ABDOMINAL WALL: No significant hernia is appreciated. LYMPH NODES: Normal. VASCULAR: Normal caliber aorta with severe atherosclerotic calcification. PELVIC VISCERA: The uterus and adnexa are unremarkable. OSSEOUS STRUCTURES: No acute osseous abnormality. Degenerative changes throughout the spine. Vacuum disc phenomenon at L4-L5. CT/CT abdomen pelvis w IV con IMPRESSION: No acute findings in the abdomen or pelvis. No inflammatory changes. Fleischner guidelines were followed.
[2022-12-08 23:09] VITALS: BP 187/89; BP 200/72; PULSE 62; PULSE 64; RESP 20; TEMP 37.2; O2SAT 98; BMI 26.3
[2022-12-08 23:27] LABS: Glucose, Whole Blood 233 mg/dL (60-115)
[2022-12-08 23:40] LABS: MANUAL DIFF FLAG NO
[2022-12-09 00:02] LABS: Alanine Aminotransferase 9 U/L (0-31); Albumin Level 4.3 g/dL (3.5-5.0); Alkaline Phosphatase 115 U/L (39-117); Anion Gap 17 (12-20); Aspartate Amino Transferase 12 U/L (5-31); Bilirubin Total 0.5 mg/dL (0.0-1.0); Blood Urea Nitrogen 17 mg/dL (9-16); Calcium 9.9 mg/dL (8.4-10.2); Carbon Dioxide 25 mmol/L (22-29); Chloride 98 mmol/L (96-108); Creatinine Clr Calc Pharmacy 49.5; Estimated Glomerular Filt Rate > 60; Glucose Random 251 mg/dL (60-115); Potassium 4.3 mmol/L (3.3-5.1); Sodium 136 mmol/L (135-145)
--- NOTE | 2022-12-09 00:02 | ED.ABDPAIN ---
HPI - Abdominal Pain General Chief Complaint: Abdominal Pain Stated Complaint: N/V Time Seen by Provider: 12/08/22 23:12 History of Present Illness HPI narrative: Patient is a 62-year-old female with a history diabetes, hypertension, tobacco use presents today with having nausea vomiting generalized malaise diffuse abdominal pain that is been ongoing for days. Patient unable to give details. She does have a history of diabetes. She has a history of smoking history of COPD. Feels very weak tired. Patient has been admitted in the past for something similar approximately 2 years ago. Patient also has a history of diabetes. With a history of DKA in the past. Denies any chest pain. Feels very weak and tired. Related Data Home Medications Medication Instructions Recorded Confirmed albuterol sulfate 90 mcg/actuation 2 puff PO Q4H PRN Respiratory 04/24/20 04/15/22 aerosol inhaler Distress aspirin 81 mg tablet,delayed 81 mg PO DAILY 04/24/20 04/15/22 release atorvastatin 40 mg tablet 40 mg PO DAILY 04/24/20 04/15/22 bupropion HCl 150 mg tablet,12 hr 150 mg PO BID 04/24/20 04/15/22 sustained-release cholecalciferol (vitamin D3) 50 50 mcg PO DAILY 04/24/20 04/15/22 mcg (2,000 unit) tablet lancets 33 gauge #100 ea 04/24/20 04/15/22 lisinopril 10 mg tablet 10 mg PO DAILY 04/24/20 04/15/22 metformin 1,000 mg tablet 1,000 mg PO BIDWMEAL 04/24/20 04/15/22 omeprazole 20 mg capsule,delayed 20 mg PO DAILY 04/24/20 04/15/22 release gabapentin 600 mg tablet 600 mg PO TID 05/03/20 04/15/22 fluticasone propionate 110 2 puff inhalation BID 05/28/20 04/15/22 mcg/actuation HFA aerosol inhaler (Flovent HFA) methadone 10 mg/mL oral 100 mg PO DAILY 05/28/20 04/15/22 concentrate (Methadone Intensol) insulin aspart U-100 100 unit/mL See Rx Instructions .Route .COMPLEX 12/26/20 04/15/22 (3 mL) subcutaneous pen (Novolog FlexPen U-100 Insulin aspart) Previous Rx's Medication Instructions Recorded walker #1 ea 10/11/20 insulin glargine 100 unit/mL 15 unit (0.15 mL) subcut BEDTIME 01/16/22 subcutaneous solution (Lantus #10 mL U-100 Insulin) oxycodone 5 mg tablet 5 mg PO Q4H PRN moderate pain #18 01/16/22 tabs ondansetron 4 mg disintegrating 4 mg PO TID PRN nausea and 12/09/22 tablet vomiting 5 days #10 tabs Allergies Allergy/AdvReac Type Severity Reaction Status Date / Time No Known Allergies Allergy Verified 04/15/22 10:15 Review of Systems Review of Systems Positive generalized malaise nausea diarrhea abdominal pain Yes all other systems are reviewed and are negative [facility] Past Medical History Attestation statement: The following information was validated with the patient. Medical History Acute hyperglycemia Below-knee amputation of right lower extremity Cellulitis Charcot foot due to diabetes mellitus Chronic prescription opiate use COPD (chronic obstructive pulmonary disease) Depression Diabetes mellitus Diabetic foot ulcer Dyslipidemia Glaucoma New onset of congestive heart failure Osteomyelitis of ankle Pulmonary emboli Pulmonary nodule Tobacco dependence Surgical History Cataract extraction status, left eye Cataract extraction status, right eye History of below-knee amputation of right lower extremity (01/13/22) Hx of cholecystectomy Family History Family History Other CVA (cerebral vascular accident) Social History Social History Household Members: Spouse Housing: Apartment Housing Other:: hotel Do you presently have visiting nurse or other home services: No Unable to assess alcohol history related to: Unknown Alcohol intake: never Patient Tobacco Use Status: Current everyday Tobacco user Tobacco use type: Cigarette Cigarette Packs Per Day: 0.5 Cigarettes Per Day: 5 Years Smoked: 45 e-Cigarette/Vaping Use: Currently Using Second Hand Smoke Exposure: No Substance Use Type: Heroin Advance Directives: Yes Advance Directives on File: Yes Advance Directives Date on File: 01/12/22 service: No (hx on methadone) Current occupational status: disabled Physical Exam ED Vital Signs: Vital Signs - 24 hr 12/08/22 23:09 12/09/22 02:33 12/09/22 03:20 Temperature 99.0 F 99 F Pulse Rate 62 67 66 Respiratory Rate 20 21 H 18 Blood Pressure 200/72 H 204/81 H 198/79 H Pulse Oximetry 98 98 98 Oxygen Delivery Method Room Air Room Air Room Air 12/09/22 04:51 Temperature 98.2 F Pulse Rate 78 Respiratory Rate 9 L Blood Pressure 200/88 H Pulse Oximetry 96 Oxygen Delivery Method Room Air BMI result Body Mass Index 26.3 Appearance: Alert. Oriented X3. No acute distress. Eyes: Pupils equal, round and reactive to light. ENT: Pharynx normal. Neck: Normal inspection. Neck supple. No lymph nodes noted. No crepitus CVS: Normal heart rate and rhythm. Pulses normal. Normal S1 and S2 Respiratory: No respiratory distress. Breath sounds normal. No Wheezing. No rales Abdomen: Soft and nontender. No rigidity. No distention. good BS x4 Skin: Skin warm and dry. Normal skin color. Normal skin turgor. Extremities: No lower extremity edema. Neurovascular intact to all extremities. No Lacerations. No Rash Neuro: Oriented X 3. No motor deficit. No sensory deficit. Moving all extermities. No slurred speech Medical Decision Making Medical Decision Making [facility] Narrative: Patient complaining of nausea vomiting diarrhea. CT of the abdomen showed no acute evidence of obstruction. No abscess no perforation. The white count was normal. Electrolytes show a BUN of 17 creatinine of 0.92. No gross renal failure. Sugars at 250 acceptable for acute stressful event. Patient's urine showed no signs of infection. Now tolerating fluids. Will give Zofran. Will discharge patient home. Repeat abdominal exam was soft nontender. Differential Diagnosis Differential Diagnoses: The differential diagnosis associated with the presentation includes Obstruction, abscess, perforation, diverticulitis, DKA Lab Data [facility] Lab Attestation statement: I reviewed the patient's lab results. 12/08/22 23:36 12/08/22 23:36 Labs: Lab Results 12/08/22 12/08/22 12/08/22 Range/Units 23:22 23:36 23:36 WBC 7.7 (4.8-10.8) X10*3/uL RBC 4.27 (4.20-5.50) X10*6/uL Hgb 11.6 L (12.0-16.0) g/dl Hct 35.7 L (37.0-47.0) % MCV 83.6 (80.0-98.0) fL MCH 27.2 (27.0-33.0) pg MCHC 32.5 (31.0-35.0) g/dl RDW 17.6 H (11.0-16.0) % Plt Count 291 D (160-400) X10*3/uL MPV 10.2 (9.4-12.3) fL Immature Gran % (Auto) 0.5 H (0.0-0.4) % Neut % (Auto) 84.0 H (45-73) % Lymph % (Auto) 11.8 L (20-40) % [place] % (Auto) 3.4 (2-11) % Eos % (Auto) 0.0 (0-4) % Baso % (Auto) 0.3 (0-2) % Lymph # (Auto) 0.9 L (1.2-4.9) X10*3/uL [place] # (Auto) 0.3 (0.1-1.2) X10*3/uL Eos # (Auto) 0.0 (0.0-0.4) X10*3/uL Baso # (Auto) 0.0 (0.0-0.2) X10*3/uL Abs Immat Gran (auto) 0.04 H (0.00-0.03) X10*3/uL Absolute Neuts (auto) 6.5 (2.0-8.3) x10*3/uL Absolute Nucleated RBC 0.000 (0.0-0.012) X10*3/uL Nucleated RBC % (auto) 0.0 (0.0-0.2) /100WBC Sodium 136 (135-145) mmol/L Potassium 4.3 (3.3-5.1) mmol/L Chloride 98 (96-108) mmol/L Carbon Dioxide 25 (22-29) mmol/L Anion Gap 17 (12-20) BUN 17 H (9-16) mg/dL Creatinine 0.92 (0.5-1.4) mg/dL Estim Creat Clear Calc 49.5 Estimated GFR > 60 POC Glucose 233 H (60-115) mg/dL Random Glucose 251 H (60-115) mg/dL Calcium 9.9 D (8.4-10.2) mg/dL Total Bilirubin 0.5 (0.0-1.0) mg/dL AST 12 (5-31) U/L ALT 9 (0-31) U/L Alkaline Phosphatase 115 (39-117) U/L Total Protein 9.0 H (6.5-8.0) g/dL Albumin 4.3 (3.5-5.0) g/dL Urine Color Urine Appearance Urine pH (5.0-9.0) Ur Specific [place] (1.005-1.025) Urine Protein (Neg-Trace) mg/dL Urine Glucose (UA) (Negative) mg/dL Urine Ketones (Negative) mg/dL Urine Blood (Negative) Urine Nitrite (Negative) Ur Leukocyte Esterase (Negative) 12/09/22 Range/Units 05:52 WBC (4.8-10.8) X10*3/uL RBC (4.20-5.50) X10*6/uL Hgb (12.0-16.0) g/dl Hct (37.0-47.0) % MCV (80.0-98.0) fL MCH (27.0-33.0) pg MCHC (31.0-35.0) g/dl RDW (11.0-16.0) % Plt Count (160-400) X10*3/uL MPV (9.4-12.3) fL Immature Gran % (Auto) (0.0-0.4) % Neut % (Auto) (45-73) % Lymph % (Auto) (20-40) % [place] % (Auto) (2-11) % Eos % (Auto) (0-4) % Baso % (Auto) (0-2) % Lymph # (Auto) (1.2-4.9) X10*3/uL [place] # (Auto) (0.1-1.2) X10*3/uL Eos # (Auto) (0.0-0.4) X10*3/uL Baso # (Auto) (0.0-0.2) X10*3/uL Abs Immat Gran (auto) (0.00-0.03) X10*3/uL Absolute Neuts (auto) (2.0-8.3) x10*3/uL Absolute Nucleated RBC (0.0-0.012) X10*3/uL Nucleated RBC % (auto) (0.0-0.2) /100WBC Sodium (135-145) mmol/L Potassium (3.3-5.1) mmol/L Chloride (96-108) mmol/L Carbon Dioxide (22-29) mmol/L Anion Gap (12-20) BUN (9-16) mg/dL Creatinine (0.5-1.4) mg/dL Estim Creat Clear Calc Estimated GFR POC Glucose (60-115) mg/dL Random Glucose (60-115) mg/dL Calcium (8.4-10.2) mg/dL Total Bilirubin (0.0-1.0) mg/dL AST (5-31) U/L ALT (0-31) U/L Alkaline Phosphatase (39-117) U/L Total Protein (6.5-8.0) g/dL Albumin (3.5-5.0) g/dL Urine Color Yellow Urine Appearance Clear Urine pH 6.5 (5.0-9.0) Ur Specific [place] >= 1.030 H (1.005-1.025) Urine Protein 300 (3+) H (Neg-Trace) mg/dL Urine Glucose (UA) 500 H (Negative) mg/dL Urine Ketones Trace (Negative) mg/dL Urine Blood Small (1+) H (Negative) Urine Nitrite Negative (Negative) Ur Leukocyte Esterase Negative (Negative) Medications Administered Discontinued Medications Generic Name Dose Route Start Last Admin Trade Name Freq PRN Reason Stop Dose Admin Sodium Chloride 1,000 mls @ 999 mls/hr 12/09/22 00:15 12/09/22 02:32 Ns IV 12/09/22 01:15 Infused .Q1H1M PRECIOUS Infusion Iohexol 85 ml 12/09/22 04:47 12/09/22 04:47 Iohexol 350 Mg/Ml 100 Ml Infus..Btl IV 12/09/22 04:48 85 ml ONCE ONE Administration Lisinopril 10 mg 12/09/22 05:01 12/09/22 05:17 Lisinopril 10 Mg Tablet PO 12/09/22 05:02 10 mg ONCE ONE Administration Protocol Ondansetron HCl 4 mg 12/09/22 02:24 12/09/22 02:32 Ondansetron Hcl 4 Mg/2 Ml Vial IVPUSH 12/09/22 02:25 4 mg ONCE ONE Administration Discharge Plan Discharge Clinical Impression: Gastroenteritis Patient Disposition: Home, Self-Care Instructions: Gastroenteritis (DC) Prescriptions: New ondansetron 4 mg tablet,disintegrating 4 mg PO TID PRN (Reason: nausea and vomiting) 5 Days Qty: 10 0RF No Action (DME) walker Misc See Rx Instructions .ROUTE .MEDSUPPLY Qty: 1 0RF Rx Instructions: As directed fluticasone propionate [Flovent HFA] 110 mcg/actuation Hfa Aerosol Inhaler 2 puff INHALATION BID methadone [Methadone Intensol] 10 mg/mL Concentrate 100 mg PO DAILY insulin aspart U-100 [Novolog FlexPen U-100 Insulin] 100 unit/mL (3 mL) insulin pen See Rx Instructions .ROUTE .COMPLEX Rx Instructions: SLIDING SCALE insulin glargine [Lantus U-100 Insulin] 100 unit/mL Solution 15 unit subcut BEDTIME Qty: 10 0RF oxycodone 5 mg Tablet 5 mg PO Q4H PRN (Reason: moderate pain) Qty: 18 0RF Rx Instructions: Partial Fill upon patient request. gabapentin 600 mg tablet 600 mg PO TID (DME) lancets 33 gauge misc See Rx Instructions Not Applicable TID Qty: 100 Rx Instructions: As directed cholecalciferol (vitamin D3) 50 mcg (2,000 unit) tablet 50 mcg PO DAILY albuterol sulfate 90 mcg/actuation HFA aerosol inhaler 2 puff PO Q4H PRN (Reason: Respiratory Distress) lisinopril 10 mg tablet 10 mg PO DAILY omeprazole 20 mg capsule,delayed release(DR/EC) 20 mg PO DAILY metformin 1,000 mg tablet 1,000 mg PO BIDWMEAL aspirin 81 mg tablet,delayed release (DR/EC) 81 mg PO DAILY bupropion HCl 150 mg tablet sustained-release 12 hr 150 mg PO BID atorvastatin 40 mg tablet 40 mg PO DAILY Referrals: Kevon Herring MD [Primary Care Provider] - 12/11/22
[2022-12-09 00:16] LABS: Basophils Percent Auto 0.3 % (0-2); Hematocrit 35.7 % (37.0-47.0); Hemoglobin 11.6 g/dl (12.0-16.0); Imm Gran Abs Auto 0.04 X10*3/uL (0.00-0.03); Imm Gran Pct Auto 0.5 % (0.0-0.4); Lymphocytes Absolute Auto 0.9 X10*3/uL (1.2-4.9); Lymphocytes Percent Auto 11.8 % (20-40); Mean Corpuscular HGB Conc 32.5 g/dl (31.0-35.0); Mean Corpuscular Hemoglobin 27.2 pg (27.0-33.0); Mean Corpuscular Volume 83.6 fL (80.0-98.0); Mean Platelet Volume 10.2 fL (9.4-12.3); Monocytes Absolute Auto 0.3 X10*3/uL (0.1-1.2); Monocytes Percent Auto 3.4 % (2-11); Neutrophils Absolute Auto 6.5 x10*3/uL (2.0-8.3); Platelet Count 291 X10*3/uL (160-400); Red Blood Count 4.27 X10*6/uL (4.20-5.50); Red Cell Distribution Width 17.6 % (11.0-16.0); White Blood Count 7.7 X10*3/uL (4.8-10.8)
[2022-12-09] MEDS: 0.9 % Sodium Chloride 1,000 ML 999 ML IV (00:27)
[2022-12-09] MEDS: ondansetron HCL 4 MG/2 ML VIAL IVPUSH (02:32)
[2022-12-09 02:33] VITALS: BP 204/81; PULSE 67; RESP 21; O2SAT 98
--- NOTE | 2022-12-09 02:36 | PC.NURSE ---
pt had episode of vomiting pt medicated according to mar. bp elevated upon arrival. dr barber made aware. bp at this time 204/81. dr barber made aware
[2022-12-09 03:20] VITALS: BP 198/79; PULSE 66; RESP 18; TEMP 37.2; O2SAT 98
--- NOTE | 2022-12-09 03:55 | PC.NURSE ---
dr barber made aware of bp 198/79. no new orders placed pt awaiting CT scan
[2022-12-09] MEDS: iohexoL 350 MG/ML 100 ML INFUS..BTL 85 ML IV (04:47)
[2022-12-09 04:51] VITALS: BP 200/88; PULSE 78; RESP 9; TEMP 36.8; O2SAT 96
[2022-12-09] MEDS: lisinopriL 10 MG TABLET PO (05:17)
[2022-12-09 05:59] LABS: Appearance Urine Clear; Color Urine Yellow; Glucose Urine UA 500 mg/dL (Negative); Leukocyte Esterase Urine Negative (Negative); Nitrite Urine Negative (Negative); PH 6.5 (5.0-9.0); Specific Gravity - Urine >= 1.030 (1.005-1.025); UMIC TRIGGER UACC YES; Urine Blood Small (1+) (Negative); Urine Ketones Trace mg/dL (Negative); Urine Protein 300 (3+) mg/dL (Neg-Trace)
[2022-12-09 06:24] LABS: Bacteria Urine None Seen (None Seen); Hyaline Casts Urine 0-2 /LPF (0-2); WBC Urine 0-5 /HPF (0-5)
== END 2022-12-09 06:40 | disposition home or self-care (01) ==
PROVIDERS: Emergency Provider Emergency Medicine Emergency Medical Services; PCP Internal Medicine
DX: K52.9 Noninfective gastroenteritis and colitis, unspecified (principal); R11.2 Nausea with vomiting, unspecified; E11.9 Type 2 diabetes mellitus without complications; E78.5 Hyperlipidemia, unspecified; F17.210 Nicotine dependence, cigarettes, uncomplicated; Z79.899 Other long term (current) drug therapy; Z79.82 Long term (current) use of aspirin; Z79.02 Long term (current) use of antithrombotics/antiplatelets; Z79.4 Long term (current) use of insulin; Z79.891 Long term (current) use of opiate analgesic
CPT/HCPCS: 36415; 51701; 74177; 80053; 81001; 82947; 85025; 96361; 96374; 99284; J2405; Q9967

== ENCOUNTER 2022-12-10 12:04 | Emergency (ER) | payer MEDICARE, MEDICAID, SELFPAY ==
[2022-12-10 12:15] VITALS: BP 200/101; PULSE 70; O2SAT 99
[2022-12-10 12:20] VITALS: BP 203/84; PULSE 67; RESP 12; TEMP 37; O2SAT 98; BMI 26.2
--- NOTE | 2022-12-10 12:30 | ED.ABDPAIN ---
HPI - Abdominal Pain General Chief Complaint: Nausea/Vomiting/Diarrhea Stated Complaint: N/V per EMS Time Seen by Provider: 12/10/22 12:29 Source: patient Mode of arrival: EMS Limitations: no limitations History of Present Illness HPI narrative: Patient diabetic on insulin uncontrolled, hypertension, with right Charcot foot status post right BKA and? Gastroparesis was seen here on 12/08 for vomiting and upper abdominal pain which is going on for few days and history of same in the past likely patient has gastroparesis patient does get his symptoms off and on couple of times in a year not been evaluated by print production associate. Today she came as she continued to vomit and cannot take her medications patient has CT scan done of abdomen yesterday which was negative Related Data Home Medications Medication Instructions Recorded Confirmed albuterol sulfate 90 mcg/actuation 2 puff PO Q4H PRN Respiratory 04/24/20 04/15/22 aerosol inhaler Distress aspirin 81 mg tablet,delayed 81 mg PO DAILY 04/24/20 04/15/22 release atorvastatin 40 mg tablet 40 mg PO DAILY 04/24/20 04/15/22 bupropion HCl 150 mg tablet,12 hr 150 mg PO BID 04/24/20 04/15/22 sustained-release cholecalciferol (vitamin D3) 50 50 mcg PO DAILY 04/24/20 04/15/22 mcg (2,000 unit) tablet lancets 33 gauge #100 ea 04/24/20 04/15/22 lisinopril 10 mg tablet 10 mg PO DAILY 04/24/20 04/15/22 metformin 1,000 mg tablet 1,000 mg PO BIDWMEAL 04/24/20 04/15/22 omeprazole 20 mg capsule,delayed 20 mg PO DAILY 04/24/20 04/15/22 release gabapentin 600 mg tablet 600 mg PO TID 05/03/20 04/15/22 fluticasone propionate 110 2 puff inhalation BID 05/28/20 04/15/22 mcg/actuation HFA aerosol inhaler (Flovent HFA) methadone 10 mg/mL oral 100 mg PO DAILY 05/28/20 04/15/22 concentrate (Methadone Intensol) insulin aspart U-100 100 unit/mL See Rx Instructions .Route .COMPLEX 12/26/20 04/15/22 (3 mL) subcutaneous pen (Novolog FlexPen U-100 Insulin aspart) Previous Rx's Medication Instructions Recorded walker #1 ea 10/11/20 insulin glargine 100 unit/mL 15 unit (0.15 mL) subcut BEDTIME 01/16/22 subcutaneous solution (Lantus #10 mL U-100 Insulin) oxycodone 5 mg tablet 5 mg PO Q4H PRN moderate pain #18 01/16/22 tabs ondansetron 4 mg disintegrating 4 mg PO TID PRN nausea and 12/09/22 tablet vomiting 5 days #10 tabs dicyclomine 20 mg tablet 20 mg PO TID PRN abdominal pain 12/10/22 #20 tabs metoclopramide HCl 10 mg tablet 10 mg PO Q8H PRN nausea and 12/10/22 (Reglan) vomiting #40 tabs Allergies Allergy/AdvReac Type Severity Reaction Status Date / Time No Known Allergies Allergy Verified 04/15/22 10:15 Review of Systems Review of Systems Yes all other systems are reviewed and are negative PMFSH Past Medical History Medical History Acute hyperglycemia Below-knee amputation of right lower extremity Cellulitis Charcot foot due to diabetes mellitus Chronic prescription opiate use COPD (chronic obstructive pulmonary disease) Depression Diabetes mellitus Diabetic foot ulcer Dyslipidemia Glaucoma New onset of congestive heart failure Osteomyelitis of ankle Pulmonary emboli Pulmonary nodule Tobacco dependence Surgical History Cataract extraction status, left eye Cataract extraction status, right eye History of below-knee amputation of right lower extremity (01/13/22) Hx of cholecystectomy Family History Family History Other CVA (cerebral vascular accident) Social History Social History Household Members: Spouse Housing: Apartment Housing Other:: hotel Do you presently have visiting nurse or other home services: No Unable to assess alcohol history related to: Unknown Alcohol intake: never Patient Tobacco Use Status: Current everyday Tobacco user Tobacco use type: Cigarette Cigarette Packs Per Day: 0.5 Cigarettes Per Day: 5 Years Smoked: 45 e-Cigarette/Vaping Use: Currently Using Second Hand Smoke Exposure: No Substance Use Type: Heroin Advance Directives: Yes Advance Directives on File: Yes Advance Directives Date on File: 01/12/22 service: No (hx on methadone) Current occupational status: disabled Physical Exam ED Vital Signs: Vital Signs - 24 hr 12/10/22 12:20 12/10/22 15:45 Temperature 98.6 F Pulse Rate 67 66 Respiratory Rate 12 18 Blood Pressure 203/84 H 124/63 Pulse Oximetry 98 99 Oxygen Delivery Method Room Air Room Air BMI result Body Mass Index 26.2 Appearance: Alert. Oriented X3. No acute distress. Eyes: PERRLA, No Nystagmus ENT: Pharynx normal. Oral Mucosa moist Neck: Normal inspection. Neck supple. CVS: Normal heart rate and rhythm. Pulses normal. Respiratory: No respiratory distress. Equal air entry bilateral, no wheezing/rales/rhonchi Abdomen: Soft , tender upper abdomen no rebound or guard Bowel sounds are present, no mass palpable, no CVA tenderness Skin: Skin warm and dry. Normal skin color. Normal skin turgor. Extremities: No lower extremity edema. Right BKA No calf tenderness Neuro: Oriented X 3. No motor deficit. No sensory deficit.No cerebellar signs , cranial nerves II-XII intact Medical Decision Making Medical Decision Making [facility] Narrative: Patient with frequent abdominal pain with vomiting with diabetes likely gastroparesis was seen here yesterday with workup negative again today lab workup was negative unable take her blood pressure medication blood pressure slightly elevated which responded to p.o. lisinopril will discharge patient home advised to take Reglan before meals and follow up with Gastroenterology Lab Data [facility] Lab Attestation statement: I reviewed the patient's lab results. 12/10/22 12:43 12/10/22 12:43 Labs: Lab Results 12/10/22 12/10/22 Range/Units 12:43 12:43 WBC 10.1 (4.8-10.8) X10*3/uL RBC 4.40 (4.20-5.50) X10*6/uL Hgb 12.0 (12.0-16.0) g/dl Hct 37.5 (37.0-47.0) % MCV 85.2 (80.0-98.0) fL MCH 27.3 (27.0-33.0) pg MCHC 32.0 (31.0-35.0) g/dl RDW 17.2 H (11.0-16.0) % Plt Count 310 (160-400) X10*3/uL MPV 10.7 (9.4-12.3) fL Immature Gran % (Auto) 0.2 (0.0-0.4) % Neut % (Auto) 85.1 H (45-73) % Lymph % (Auto) 10.5 L (20-40) % [place] % (Auto) 3.8 (2-11) % Eos % (Auto) 0.1 (0-4) % Baso % (Auto) 0.3 (0-2) % Lymph # (Auto) 1.1 L (1.2-4.9) X10*3/uL [place] # (Auto) 0.4 (0.1-1.2) X10*3/uL Eos # (Auto) 0.0 (0.0-0.4) X10*3/uL Baso # (Auto) 0.0 (0.0-0.2) X10*3/uL Abs Immat Gran (auto) 0.02 (0.00-0.03) X10*3/uL Absolute Neuts (auto) 8.6 H (2.0-8.3) x10*3/uL Absolute Nucleated RBC 0.000 (0.0-0.012) X10*3/uL Nucleated RBC % (auto) 0.0 (0.0-0.2) /100WBC Sodium 133 L (135-145) mmol/L Potassium 3.8 (3.3-5.1) mmol/L Chloride 99 (96-108) mmol/L Carbon Dioxide 23 (22-29) mmol/L Anion Gap 15 (12-20) BUN 24 H (9-16) mg/dL Creatinine 1.07 (0.5-1.4) mg/dL Estim Creat Clear Calc 42.5 Estimated GFR 52 Random Glucose 265 H (60-115) mg/dL Calcium 9.4 (8.4-10.2) mg/dL Magnesium 1.7 (1.6-2.6) mg/dL Total Bilirubin 0.6 (0.0-1.0) mg/dL AST 12 (5-31) U/L ALT 10 (0-31) U/L Alkaline Phosphatase 108 (39-117) U/L Total Protein 8.2 H (6.5-8.0) g/dL Albumin 4.0 (3.5-5.0) g/dL Lipase 42 (8-78) U/L Medications Administered Discontinued Medications Generic Name Dose Route Start Last Admin Trade Name Freq PRN Reason Stop Dose Admin Al Hydroxide/Mg Hydroxide 30 ml 12/10/22 13:50 12/10/22 14:08 Magnesium Hydrox/Alum Hydrox 30 Ml Oral.Susp PO 12/10/22 13:51 30 ml ONCE ONE Administration Dicyclomine HCl 20 mg 12/10/22 13:49 12/10/22 14:08 Dicyclomine Hcl 10 Mg Capsule PO 12/10/22 13:50 20 mg ONCE ONE Administration Famotidine 20 mg 12/10/22 13:50 12/10/22 14:08 Famotidine/Pf 20 Mg/2 Ml Vial IVPUSH 12/10/22 13:51 20 mg ONCE ONE Administration Sodium Chloride 1,000 mls @ 999 mls/hr 12/10/22 12:30 12/10/22 14:08 Ns IV 12/10/22 13:30 Infused .Q1H1M ONE Infusion Lisinopril 10 mg 12/10/22 12:30 12/10/22 12:49 Lisinopril 10 Mg Tablet PO 12/10/22 12:31 10 mg ONCE ONE Administration Protocol Morphine Sulfate 4 mg 12/10/22 12:31 12/10/22 12:49 Morphine Sulfate 4 Mg/Ml Cartridge IVPUSH 12/10/22 12:32 4 mg ONCE ONE Administration Protocol Discharge Plan Discharge Clinical Impression: Diabetes mellitus with gastroparesis Patient Disposition: Home, Self-Care Instructions: Diabetic Gastroparesis (DC) Additional Instructions: Likely your symptoms are from gastroparesis Have small meals multiple times Take Reglan 1 tablet 1 hour before meals 3 times a day Dicyclomine 1 tablet every 8 hours as needed for abdominal cramps Follow your PCP/print production associate Prescriptions: New metoclopramide HCl [Reglan] 10 mg tablet 10 mg PO Q8H PRN (Reason: nausea and vomiting) Qty: 40 0RF Rx Instructions: Take 1 tablet 1 hour prior to meals dicyclomine 20 mg tablet 20 mg PO TID PRN (Reason: abdominal pain) Qty: 20 0RF No Action (DME) walker Misc See Rx Instructions .ROUTE .MEDSUPPLY Qty: 1 0RF Rx Instructions: As directed fluticasone propionate [Flovent HFA] 110 mcg/actuation Hfa Aerosol Inhaler 2 puff INHALATION BID methadone [Methadone Intensol] 10 mg/mL Concentrate 100 mg PO DAILY insulin aspart U-100 [Novolog FlexPen U-100 Insulin] 100 unit/mL (3 mL) insulin pen See Rx Instructions .ROUTE .COMPLEX Rx Instructions: SLIDING SCALE insulin glargine [Lantus U-100 Insulin] 100 unit/mL Solution 15 unit subcut BEDTIME Qty: 10 0RF oxycodone 5 mg Tablet 5 mg PO Q4H PRN (Reason: moderate pain) Qty: 18 0RF Rx Instructions: Partial Fill upon patient request. ondansetron 4 mg tablet,disintegrating 4 mg PO TID PRN (Reason: nausea and vomiting) 5 Days Qty: 10 0RF gabapentin 600 mg tablet 600 mg PO TID (DME) lancets 33 gauge misc See Rx Instructions Not Applicable TID Qty: 100 Rx Instructions: As directed cholecalciferol (vitamin D3) 50 mcg (2,000 unit) tablet 50 mcg PO DAILY albuterol sulfate 90 mcg/actuation HFA aerosol inhaler 2 puff PO Q4H PRN (Reason: Respiratory Distress) lisinopril 10 mg tablet 10 mg PO DAILY omeprazole 20 mg capsule,delayed release(DR/EC) 20 mg PO DAILY metformin 1,000 mg tablet 1,000 mg PO BIDWMEAL aspirin 81 mg tablet,delayed release (DR/EC) 81 mg PO DAILY bupropion HCl 150 mg tablet sustained-release 12 hr 150 mg PO BID atorvastatin 40 mg tablet 40 mg PO DAILY
[2022-12-10] MEDS: lisinopriL 10 MG TABLET PO (12:49)
[2022-12-10] MEDS: Morphine Sulfate 4 MG/ML CARTRIDGE IVPUSH (12:49)
[2022-12-10] MEDS: 0.9 % Sodium Chloride 1,000 ML 999 ML IV (12:50)
[2022-12-10 13:03] LABS: MANUAL DIFF FLAG NO
[2022-12-10 13:07] LABS: Basophils Percent Auto 0.3 % (0-2); Eosinophils Percent Auto 0.1 % (0-4); Hematocrit 37.5 % (37.0-47.0); Imm Gran Abs Auto 0.02 X10*3/uL (0.00-0.03); Imm Gran Pct Auto 0.2 % (0.0-0.4); Lymphocytes Absolute Auto 1.1 X10*3/uL (1.2-4.9); Lymphocytes Percent Auto 10.5 % (20-40); Mean Corpuscular Hemoglobin 27.3 pg (27.0-33.0); Mean Corpuscular Volume 85.2 fL (80.0-98.0); Mean Platelet Volume 10.7 fL (9.4-12.3); Monocytes Absolute Auto 0.4 X10*3/uL (0.1-1.2); Monocytes Percent Auto 3.8 % (2-11); Neutrophils Absolute Auto 8.6 x10*3/uL (2.0-8.3); Neutrophils Percent Auto 85.1 % (45-73); Platelet Count 310 X10*3/uL (160-400); Red Cell Distribution Width 17.2 % (11.0-16.0); White Blood Count 10.1 X10*3/uL (4.8-10.8)
[2022-12-10 13:30] LABS: Alanine Aminotransferase 10 U/L (0-31); Alkaline Phosphatase 108 U/L (39-117); Anion Gap 15 (12-20); Aspartate Amino Transferase 12 U/L (5-31); Bilirubin Total 0.6 mg/dL (0.0-1.0); Blood Urea Nitrogen 24 mg/dL (9-16); Calcium 9.4 mg/dL (8.4-10.2); Carbon Dioxide 23 mmol/L (22-29); Chloride 99 mmol/L (96-108); Creatinine Clr Calc Pharmacy 42.5; Estimated Glomerular Filt Rate 52; Glucose Random 265 mg/dL (60-115); Lipase 42 U/L (8-78); Magnesium 1.7 mg/dL (1.6-2.6); Potassium 3.8 mmol/L (3.3-5.1); Sodium 133 mmol/L (135-145); Total Protein 8.2 g/dL (6.5-8.0)
[2022-12-10] MEDS: Famotidine/PF 20 MG/2 ML VIAL IVPUSH (14:08)
[2022-12-10] MEDS: Magnesium Hydrox/Alum Hydrox 30 ML ORAL.SUSP PO (14:08)
[2022-12-10] MEDS: Dicyclomine HCl 10 MG CAPSULE 20 MG PO (14:08)
[2022-12-10 15:45] VITALS: BP 124/63; PULSE 66; RESP 18; O2SAT 99
== END 2022-12-10 16:56 | disposition home or self-care (01) ==
PROVIDERS: Emergency Provider Internal Medicine; PCP Internal Medicine
DX: E11.43 Type 2 diabetes mellitus with diabetic autonomic (poly)neuropathy (principal); K31.84 Gastroparesis; E78.5 Hyperlipidemia, unspecified; F17.210 Nicotine dependence, cigarettes, uncomplicated; F11.20 Opioid dependence, uncomplicated; Z79.899 Other long term (current) drug therapy
CPT/HCPCS: 36415; 80053; 83690; 83735; 85025; 96361; 96374; 96375; 99283; 99284; J2270

== ENCOUNTER 2023-02-05 10:32 | Emergency (ER) | payer MEDICARE, MEDICAID, SELFPAY ==
--- NOTE | 2023-02-05 | ECG_ITS ---
Test Reason : Fall Blood Pressure : / mmHG Vent. Rate : 062 BPM Atrial Rate : 062 BPM P-R Int : 144 ms QRS Dur : 088 ms QT Int : 460 ms P-R-T Axes : 055 004 019 degrees QTc Int : 466 ms Normal sinus rhythm Normal ECG When compared with ECG of 04-JUN-2021 17:44, No significant change was found Referred By: Generic ED Physician Electronically Signed By:CATRACHITO NUNEZ
--- NOTE | ~2023-02-05 | CT_ITS ---
Examination: CT brain, CT cervical spine and CT facial bones without contrast. CLINICAL INDICATION: Fall, head strike. COMPARISON: CT brain 06/04/2021. TECHNIQUE: 5 mm thin axial and reformatted 2 mm thin sagittal and coronal images of brain were obtained. Subsequently axial 3 mm thin and reformatted 2 minutes thin sagittal and coronal images of cervical spine were obtained. Lastly axial 3 mm thin and reformatted 1.5 mm thin sagittal and coronal images of facial bones were obtained. DLP [address] examination was performed using dose optimization technique as appropriate, variously including the following: Automated exposure control Adjustment of MA and/or KV according to patient size(this includes techniques or standardized protocols for targeted exams where dose is matched to indication/reason for exam; extremities or head. Use of iterative reconstruction techniques. FINDINGS: There is no acute intra-axial, extra-axial bleed, masses or midline shift. There is no acute infarction evolution. There is mild periventricular hypodensity in both several hemispheres especially in both frontal and parietal lobes. The lateral ventricles are moderately enlarged with absent central septum pellucidum. The cortical sulci are normal symmetrical and normal. Bone windows reveal no calvarial abnormality. There is no scalp soft tissue abnormality. There is a right periorbital soft tissue swelling at the left lobe scleral band. There are bilateral lens extractions. Facial bones: There is mild deformity of right nasal bone likely fracture but no associated soft tissue swelling. This may be an old injury. There is no visible acute fracture involving maxillofacial or nasal bones. The bony orbits are intact. There is moderate right periorbital soft tissue swelling. The paranasal sinuses are well-aerated with mild mucoperiosteal thickening left maxillary sinus. Rest of the paranasal sinuses are clear. The nasal septum is midline. Bilateral mastoid air cells are well-aerated and clear. Cervical spine: On sagittal reconstructed images is maintained cervical lordosis. The vertebral heights and alignment is normal. Mild loss of C4-C5, C5-C6, C6-C7 and C7-T1 disc heights is noted. The craniovertebral junction and the C1-C2 alignment is normal. No visible acute fracture, dislocation or subluxation seen. The prevertebral and paravertebral soft tissues are normal. No aggressive lytic or sclerotic process seen. The airway is widely patent. Lung apices are clear CT/CT cervical spine wo IV con IMPRESSION: 1. No acute intracranial process seen. 2. Age-related cerebral volume loss with chronic small vessel ischemic changes in both cerebral hemispheres. 3. There is no maxillofacial, nasal or mandibular fracture. There is right periorbital soft tissue swelling. 4. There is no acute fracture or dislocation in cervical spine. There are degenerative disc changes C4-C5 through C7-T1 disc levels.
[2023-02-05 10:42] VITALS: BP 160/96; BP 164/64; PULSE 70; PULSE 75; RESP 16; TEMP 37.2; O2SAT 98; BMI 29.1
--- NOTE | 2023-02-05 11:07 | PC.NURSE ---
pt a&ox3, vss, nsr on the radiation monitor, pt comes in via ems post fall at home around [id number] this am. pt fell from toilet after stating she was tired and fell to the ground. +headstrike, -LOC, -thinners. bruising and swelling noted to the right eye. warm to touch, tender upon palpation. pt able to open eye and visualize surroundings. no drainage noted coming from right eye. pt denies ant radiating pain. call franks placed within reach.
--- NOTE | 2023-02-05 12:10 | ED.GENADULT ---
HPI - General Adult General Chief complaint: Fall Stated complaint: FALL,-LOC,-THINNERS,+HS, Time Seen by Provider: 02/05/23 12:10 Source: patient and EMS Mode of arrival: EMS Limitations: no limitations History of Present Illness HPI narrative: Patient is a 63 year old assigned female at with a history of right BKA, diabetes, and left eye blindness presenting to the emergency department today with right sided facial swelling. Patient states that she was on the toilet this morning when she fell forward and hit the right side of her face. Patient denies any loss of consciousness. Patient denies any dizziness, lightheadedness, abdominal pain, nausea, vomiting, fever, chills, blurry vision, double vision, loss of vision, chest pain, difficulty breathing, shortness of breath, back pain, night sweats, pain with urination, increased urinary frequency, increased urinary urgency, blood in her urine or stool, syncope or a near syncopal episode, bowel incontinence, bladder incontinence, bowel retention, bladder retention, or any other complaints at this time. Onset (ago): hour(s) Location: face and right Radiation: non-radiation Severity: mild Severity scale (1-10): 3 Quality: aching and dull Pain Consistency: constant Relieving factors: none Exacerbating factors: none Associated symptoms: denies other symptoms Treatments prior to arrival: none Related Data Home Medications Medication Instructions Recorded Confirmed albuterol sulfate 90 mcg/actuation 2 puff PO Q4H PRN Respiratory 04/24/20 04/15/22 aerosol inhaler Distress aspirin 81 mg tablet,delayed 81 mg PO DAILY 04/24/20 04/15/22 release atorvastatin 40 mg tablet 40 mg PO DAILY 04/24/20 04/15/22 bupropion HCl 150 mg tablet,12 hr 150 mg PO BID 04/24/20 04/15/22 sustained-release cholecalciferol (vitamin D3) 50 50 mcg PO DAILY 04/24/20 04/15/22 mcg (2,000 unit) tablet lancets 33 gauge #100 ea 04/24/20 04/15/22 lisinopril 10 mg tablet 10 mg PO DAILY 04/24/20 04/15/22 metformin 1,000 mg tablet 1,000 mg PO BIDWMEAL 04/24/20 04/15/22 omeprazole 20 mg capsule,delayed 20 mg PO DAILY 04/24/20 04/15/22 release gabapentin 600 mg tablet 600 mg PO TID 05/03/20 04/15/22 fluticasone propionate 110 2 puff inhalation BID 05/28/20 04/15/22 mcg/actuation HFA aerosol inhaler (Flovent HFA) methadone 10 mg/mL oral 100 mg PO DAILY 05/28/20 04/15/22 concentrate (Methadone Intensol) insulin aspart U-100 100 unit/mL See Rx Instructions .Route .COMPLEX 12/26/20 04/15/22 (3 mL) subcutaneous pen (Novolog FlexPen U-100 Insulin aspart) Previous Rx's Medication Instructions Recorded walker #1 ea 10/11/20 insulin glargine 100 unit/mL 15 unit (0.15 mL) subcut BEDTIME 01/16/22 subcutaneous solution (Lantus #10 mL U-100 Insulin) oxycodone 5 mg tablet 5 mg PO Q4H PRN moderate pain #18 01/16/22 tabs ondansetron 4 mg disintegrating 4 mg PO TID PRN nausea and 12/09/22 tablet vomiting 5 days #10 tabs dicyclomine 20 mg tablet 20 mg PO TID PRN abdominal pain 12/10/22 #20 tabs metoclopramide HCl 10 mg tablet 10 mg PO Q8H PRN nausea and 12/10/22 (Reglan) vomiting #40 tabs Allergies Allergy/AdvReac Type Severity Reaction Status Date / Time No Known Allergies Allergy Verified 02/05/23 10:41 Review of Systems Constitutional: Constitutional: Reports no additional constitutional complaints, Denies chills, Denies fever(s) and Denies night sweats Eyes: Eyes: Reports no additional eye complaints, Denies blurry vision, Denies change in vision, Denies diplopia, Denies eye discharge and Denies loss of vision Comments: right eye swelling ENT: Denies dizziness Cardiovascular: Cardiovascular: Reports no additional cardiovascular complaints, Denies chest pain, Denies lightheadedness, Denies Loss of Consciousness and Denies dyspnea Respiratory: Respiratory: Reports no additional respiratory complaints and Denies dyspnea Gastrointestinal: Gastrointestinal: Reports no additional gastrointestinal complaints, Denies abdominal pain, Denies melena, Denies hematochezia, Denies change in bowel habits and Denies change in stool character Genitourinary: Genitourinary: Denies hematuria, Denies urinary frequency, Denies dysuria, Denies urinary incontinence, Denies urinary hesitancy and Denies urinary urgency Musculoskeletal: Musculoskeletal: Reports no additional musculoskeletal complaints, Denies numbness and Denies tingling Comments: right BKA - chronic for the patient Neurologic: Denies dizziness, Denies loss of vision, Denies numbness and Denies tingling Psychiatric: Psychiatric: Reports no additional psychiatric complaints Endocrine: Endocrine: Reports no additional endocrine complaints Hematologic/Lymphatic: Hematologic/Lymphatic: Reports no additional hematologic/lymphatic complaints Allergic/Immunologic: Allergic/Immunologic: Reports no additional allergic/immunologic complaints [facility] Past Medical History Attestation statement: The following information was validated with the patient. Source: old records reviewed and nursing notes reviewed Medical History Acute hyperglycemia Below-knee amputation of right lower extremity Cellulitis Charcot foot due to diabetes mellitus Chronic prescription opiate use Constipation COPD (chronic obstructive pulmonary disease) COVID-19 Depression Diabetes mellitus Diabetic foot ulcer Diabetic osteomyelitis DKA (diabetic ketoacidoses) Dyslipidemia Gastritis Gastroenteritis Glaucoma New onset of congestive heart failure Osteomyelitis of ankle Pulmonary emboli Pulmonary nodule Tobacco dependence Surgical History Cataract extraction status, left eye Cataract extraction status, right eye History of below-knee amputation of right lower extremity (01/13/22) Hx of cholecystectomy Family History Family History Other CVA (cerebral vascular accident) Social History Social History Household Members: Spouse Housing: Apartment Housing Other:: hotel Do you presently have visiting nurse or other home services: No Unable to assess alcohol history related to: Unknown Alcohol intake: never Patient Tobacco Use Status: Current everyday Tobacco user Tobacco use type: Cigarette Cigarette Packs Per Day: 0.5 Cigarettes Per Day: 5 Years Smoked: 45 Smoked in Last 30 Days: Yes e-Cigarette/Vaping Use: Currently Using Second Hand Smoke Exposure: No Use of substances other than those prescribed or required for medical reasons: No Substance Use Type: Heroin Advance Directives: Yes Advance Directives on File: Yes Advance Directives Date on File: 01/12/22 Patient : No service: No (hx on methadone) Current occupational status: disabled Physical Exam ED Vital Signs: Vital Signs - 24 hr 02/05/23 10:42 02/05/23 13:14 Temperature 99.0 F 98.4 F Pulse Rate 70 54 Respiratory Rate 16 16 Blood Pressure 164/64 H 93/71 Pulse Oximetry 98 99 Oxygen Delivery Method Room Air Room Air BMI result Body Mass Index 29.1 Const General: cooperative, no acute distress, alert and awake Nutritional Appearance: well nourished Orientation/consciousness: patient oriented x3 Limitations: no limitations HENMT Head: Yes normal to inspection and Yes atraumatic Ears: hearing grossly normal bilaterally and external ears normal General nose exam: Normal external nose present, no nasal discharge noted and no epistaxis Face and sinus: Yes normal facial exam, No abrasion and No laceration Mouth: Normal oral and palatal mucosa present, no drooling and no muffled voice Eyes Periorbital: periorbital findings abnormal right periorbital ecchymosis Conjunctivae: conjunctivae normal Pupils: Equal, round and reactive pupils present EOM: EOMs intact bilaterally Neck Neck: Yes normal visual inspection, Yes full ROM and Yes no lymphadenopathy Chest Chest palpation & inspection: normal inspection of the chest Resp Effort & Inspection: normal respiratory effort and able to speak in complete sentences GI Inspection: Yes normal to inspection Neuro General: patient oriented x3 and moves all extremities Cranial nerves: Yes Equal, round and reactive pupils present Cognition (Neuro): normal cognition Motor exam (neuro): 5/5 motor strength present throughout Sensory Exam: Normal double simultaneous stimulation for sensation Coordination: [id number] test normal Extrem Other: left BKA - chronic for the patient General: Yes capillary refill normal Psych Appearance: grossly normal Mental Status: mental status grossly normal Affect: normal affect Attitude: cooperative Thought process: Normal thought process present Thought content: Normal thought content present Insight: Good insight present (Psych) Medical Decision Making Medical Decision Making MDM Narrative: Patient is a 63 year old assigned female at with a history of left eye blindness, diabetes, and right BKA presenting to the emergency department today with right eye bruising / swelling. Patient's physical exam showed periorbital bruising of the right eye however, the globe and all eyeball related structures were normal. Patient's head, C-spine, and face CTs showed no acute process. Patient continued to adamantly deny any dizziness / lightheadedness before or after the incident and is certain this was a mechanical fall forward while leaning forward on the toilet. I explained my physical exam findings as well as all test results to the patient. I answered all questions asked by the patient. I stressed the importance of the patient taking her medication as prescribed. I stressed the importance of the patient following up with her primary care provider. I stressed the importance of the patient returning to the emergency department immediately if her symptoms were to worsen or if she were to develop any dizziness, shortness of breath, difficulty breathing, chest pain, blurry vision, loss of vision, nausea, vomiting, abdominal pain, fever, chills, back pain, or any other complaints. Patient verbalized agreement and understanding with this treatment plan and discharge. Differential Diagnosis Differential Diagnoses: The differential diagnosis associated with the presentation includes Mechanical fall Right eye bruising Maxillary fracture Orbital fracture Head injury Admission/Observation Consideration of admission/observation: Escalation of care including admission/observation considered Patient would have been admitted to the hospital had her work up had any findings where hospital admission was appropriate and her clinical presentation warranted hospital admission. Independent Interpretation I performed an independent interpretation of an: CT Scan Interpretation: My interpretation is in agreement with the radiologist's impression of these imaging studies. Examination: CT brain, CT cervical spine and CT facial bones without contrast. CLINICAL INDICATION: Fall, head strike. COMPARISON: CT brain 06/04/2021. TECHNIQUE: 5 mm thin axial and reformatted 2 mm thin sagittal and coronal images of brain were obtained. Subsequently axial 3 mm thin and reformatted 2 minutes thin sagittal and coronal images of cervical spine were obtained. Lastly axial 3 mm thin and reformatted 1.5 mm thin sagittal and coronal images of facial bones were obtained. DLP [address] examination was performed using dose optimization technique as appropriate, variously including the following: Automated exposure control Adjustment of MA and/or KV according to patient size(this includes techniques or standardized protocols for targeted exams where dose is matched to indication/reason for exam;? extremities or head. Use of iterative reconstruction techniques. FINDINGS: There is no acute intra-axial, extra-axial bleed, masses or midline shift. There is no acute infarction evolution. There is mild periventricular hypodensity in both several hemispheres especially in both frontal and parietal lobes. The lateral ventricles are moderately enlarged with absent central septum pellucidum. The cortical sulci are normal symmetrical and normal. Bone windows reveal no calvarial abnormality. There is no scalp soft tissue abnormality. There is a right periorbital soft tissue swelling at the left lobe scleral band. There are bilateral lens extractions. Facial bones: There is mild deformity of right nasal bone likely fracture but no associated soft tissue swelling. This may be an old injury. There is no visible acute fracture involving maxillofacial or nasal bones. The bony orbits are intact. There is moderate right periorbital soft tissue swelling. The paranasal sinuses are well-aerated with mild mucoperiosteal thickening left maxillary sinus. Rest of the paranasal sinuses are clear. The nasal septum is midline. Bilateral mastoid air cells are well-aerated and clear. Cervical spine: On sagittal reconstructed images is maintained cervical lordosis. The vertebral heights and alignment is normal. Mild loss of C4-C5, C5-C6, C6-C7 and C7-T1 disc heights is noted. The craniovertebral junction and the C1-C2 alignment is normal. No visible acute fracture, dislocation or subluxation seen. The prevertebral and paravertebral soft tissues are normal. No aggressive lytic or sclerotic process seen. The airway is widely patent. Lung apices are clear CT/CT head/brain wo IV con IMPRESSION: 1.? No acute intracranial process seen. 2.? Age-related cerebral volume loss with chronic small vessel ischemic changes in both cerebral hemispheres. 3.? There is no maxillofacial, nasal or mandibular fracture. There is right periorbital soft tissue swelling. 4.? There is no acute fracture or dislocation in cervical spine. There are? degenerative disc changes C4-C5 through C7-T1 disc levels. Dictated By: Luke Toscano MD Signed By: Electronically signed by Luke Toscano MD 02/05/23 1444 Vent. Rate: 062 BPM ? ? Atrial Rate: 062 BPM P-R Int: 144 ms? QRS Dur: 088 ms QT Int: 460 ms ? ? ? P-R-T Axes: 055 004 019 degrees QTc Int: 466 ms ? Normal sinus rhythm Normal ECG When compared with ECG of 04-JUN-2021 17:44, No significant change was found DD/ 1157 Radiology Impression Discussion of test interpretation with radiology: I have reviewed the radiologist's reading. Independent Historian Clinical information obtained from an independent historian. History obtained from or confirmed by: EMS (EMS provided additional history and confirmed the history provided by the patient) Chronic Conditions Patient?s care impacted by: Diabetes Discharge Plan Discharge Clinical Impression: Fall Patient Disposition: Home, Self-Care Instructions: Fall Prevention (ED) Additional Instructions: Follow up with your primary care provider. Return to the emergency department immediately if your symptoms worsen or if you develop any dizziness, shortness of breath, difficulty breathing, chest pain, blurry vision, loss of vision, nausea, vomiting, abdominal pain, fever, chills, back pain, or any other complaints. Prescriptions: No Action (DME) walker Misc See Rx Instructions .ROUTE .MEDSUPPLY Qty: 1 0RF Rx Instructions: As directed fluticasone propionate [Flovent HFA] 110 mcg/actuation Hfa Aerosol Inhaler 2 puff INHALATION BID methadone [Methadone Intensol] 10 mg/mL Concentrate 100 mg PO DAILY insulin aspart U-100 [Novolog FlexPen U-100 Insulin] 100 unit/mL (3 mL) insulin pen See Rx Instructions .ROUTE .COMPLEX Rx Instructions: SLIDING SCALE insulin glargine [Lantus U-100 Insulin] 100 unit/mL Solution 15 unit subcut BEDTIME Qty: 10 0RF oxycodone 5 mg Tablet 5 mg PO Q4H PRN (Reason: moderate pain) Qty: 18 0RF Rx Instructions: Partial Fill upon patient request. ondansetron 4 mg tablet,disintegrating 4 mg PO TID PRN (Reason: nausea and vomiting) 5 Days Qty: 10 0RF metoclopramide HCl [Reglan] 10 mg tablet 10 mg PO Q8H PRN (Reason: nausea and vomiting) Qty: 40 0RF Rx Instructions: Take 1 tablet 1 hour prior to meals dicyclomine 20 mg tablet 20 mg PO TID PRN (Reason: abdominal pain) Qty: 20 0RF gabapentin 600 mg tablet 600 mg PO TID (DME) lancets 33 gauge misc See Rx Instructions Not Applicable TID Qty: 100 Rx Instructions: As directed cholecalciferol (vitamin D3) 50 mcg (2,000 unit) tablet 50 mcg PO DAILY albuterol sulfate 90 mcg/actuation HFA aerosol inhaler 2 puff PO Q4H PRN (Reason: Respiratory Distress) lisinopril 10 mg tablet 10 mg PO DAILY omeprazole 20 mg capsule,delayed release(DR/EC) 20 mg PO DAILY metformin 1,000 mg tablet 1,000 mg PO BIDWMEAL aspirin 81 mg tablet,delayed release (DR/EC) 81 mg PO DAILY bupropion HCl 150 mg tablet sustained-release 12 hr 150 mg PO BID atorvastatin 40 mg tablet 40 mg PO DAILY Referrals: Kevon Herring MD [Primary Care Provider] - Interventions: ED Discharge Assessment Last Done: 02/05/23 15:09 Print Language: Setswana
--- NOTE | 2023-02-05 12:45 | PC.NURSE ---
pt to radiology
[2023-02-05 13:14] VITALS: BP 93/71; PULSE 54; RESP 16; TEMP 36.9; O2SAT 99
--- NOTE | 2023-02-05 13:15 | PC.NURSE ---
pt a&ox3, vss, bradycardic on the nuclear monitoring technician. pt verbalizing pain in right eye 7/10 pain level. pt resting comfortably in no apparent distress. call franks placed within reach. will continue to monitor.
== END 2023-02-05 15:10 | disposition home or self-care (01) ==
PROVIDERS: Emergency Provider Student in an Organized Health Care Education/Training Program; PCP Internal Medicine
DX: S09.90XA Unspecified injury of head, initial encounter (principal); S13.4XXA Sprain of ligaments of cervical spine, initial encounter; R51.9 Headache, unspecified; M54.2 Cervicalgia; W18.11XA Fall from or off toilet without subsequent striking against object, initial encounter; Y93.9 Activity, unspecified; Y92.9 Unspecified place or not applicable; Y99.9 Unspecified external cause status; F17.210 Nicotine dependence, cigarettes, uncomplicated; Z79.899 Other long term (current) drug therapy; Z71.6 Tobacco abuse counseling
CPT/HCPCS: 70450; 70486; 72125; 93005; 99284

== ENCOUNTER → 2023-02-05 11:57 | Outpatient (BNV) | payer MEDICARE, MEDICAID, SELFPAY | PROVIDERS: Emergency Provider Student in an Organized Health Care Education/Training Program; PCP Internal Medicine; Visit Provider Internal Medicine | DX: R55 Syncope and collapse (principal) | CPT/HCPCS: 93010 ==

== ENCOUNTER 2023-03-01 09:01 | Emergency (ER) | payer MEDICARE, MEDICAID, SELFPAY ==
--- NOTE | ~2023-03-01 | XR_ITS ---
EXAMINATION: XR SHOULDER, LEFT CLINICAL INFORMATION: Swelling and pain. Prior surgery. COMPARISON: 05/23/2021, 10/20/2021 and 11/19/2021 TECHNIQUE: Four views of the left shoulder. FINDINGS: There are old and worsening erosions of the glenoid and humeral head compared to 11/19/2021. The deformity could represent sequela of previously treated septic arthritis with osteomyelitis. There appear to be areas of curvilinear heterotopic ossification at the anterior-inferior glenoid and projecting inferiorly from the coracoid. No intra-articular osteochondral body. No aggressive periostitis. No acute fracture or malalignment. The subacromial space is maintained. No evidence of calcific tendinitis. XR/XR shoulder LT min 2V IMPRESSION: Interval worsening of chronic erosive deformity of left glenohumeral joint. Correlation with details of patient's past medical history needed. Findings could represent sequela of previously treated septic arthritis and osteomyelitis. This examination does not exclude any recurrent or ongoing indolent inflammation at the glenohumeral joint. If there is clinical suspicion for a recurrent septic arthritis or soft tissue abscess, then obtain MRI of the shoulder without and with IV contrast.
[2023-03-01 09:28] VITALS: BP 142/53; PULSE 66; RESP 16; TEMP 37.4; O2SAT 98; BMI 26.3
--- NOTE | 2023-03-01 10:40 | ED_ITS ---
HPI - Extremity Problem General Chief complaint: Extremity Injury, Upper Stated complaint: Lump L shoulder Time Seen by Provider: 03/01/23 09:39 Source: patient Mode of arrival: ambulatory Limitations: no limitations History of Present Illness HPI Narrative: Patient is a 63-year-old female presenting to the emergency department with left shoulder pain and deformity since yesterday. Reports history of surgery to left upper arm approximately 1 year prior in [place]. Patient states she is unsure of what surgery she had performed. She denies any fall or other trauma. Reports limited range of motion to left arm. States pain radiates to left upper arm. Denies any numbness or tingling to left arm. Took Tylenol prior to arrival with little relief. MD Complaint: joint swelling and joint pain Onset (ago): hour(s) Pain Consistency: constant Location: left and upper extremity Quality: aching Radiation: distal Relieving factors: rest Exacerbating factors: range of motion and palpation Associated symptoms: denies other symptoms Related Data Home Medications Medication Instructions Recorded Confirmed albuterol sulfate 90 mcg/actuation 2 puff PO Q4H PRN Respiratory 04/24/20 04/15/22 aerosol inhaler Distress aspirin 81 mg tablet,delayed 81 mg PO DAILY 04/24/20 04/15/22 release atorvastatin 40 mg tablet 40 mg PO DAILY 04/24/20 04/15/22 bupropion HCl 150 mg tablet,12 hr 150 mg PO BID 04/24/20 04/15/22 sustained-release cholecalciferol (vitamin D3) 50 50 mcg PO DAILY 04/24/20 04/15/22 mcg (2,000 unit) tablet lancets 33 gauge #100 ea 04/24/20 04/15/22 lisinopril 10 mg tablet 10 mg PO DAILY 04/24/20 04/15/22 metformin 1,000 mg tablet 1,000 mg PO BIDWMEAL 04/24/20 04/15/22 omeprazole 20 mg capsule,delayed 20 mg PO DAILY 04/24/20 04/15/22 release gabapentin 600 mg tablet 600 mg PO TID 05/03/20 04/15/22 fluticasone propionate 110 2 puff inhalation BID 05/28/20 04/15/22 mcg/actuation HFA aerosol inhaler (Flovent HFA) methadone 10 mg/mL oral 100 mg PO DAILY 05/28/20 04/15/22 concentrate (Methadone Intensol) insulin aspart U-100 100 unit/mL See Rx Instructions .Route .COMPLEX 12/26/20 04/15/22 (3 mL) subcutaneous pen (Novolog FlexPen U-100 Insulin aspart) Previous Rx's Medication Instructions Recorded walker #1 ea 10/11/20 insulin glargine 100 unit/mL 15 unit (0.15 mL) subcut BEDTIME 01/16/22 subcutaneous solution (Lantus #10 mL U-100 Insulin) oxycodone 5 mg tablet 5 mg PO Q4H PRN moderate pain #18 01/16/22 tabs ondansetron 4 mg disintegrating 4 mg PO TID PRN nausea and 12/09/22 tablet vomiting 5 days #10 tabs dicyclomine 20 mg tablet 20 mg PO TID PRN abdominal pain 12/10/22 #20 tabs metoclopramide HCl 10 mg tablet 10 mg PO Q8H PRN nausea and 12/10/22 (Reglan) vomiting #40 tabs lidocaine 5 % topical patch 1 patch topical DAILY #15 ea 03/01/23 Allergies Allergy/AdvReac Type Severity Reaction Status Date / Time No Known Allergies Allergy Verified 03/01/23 09:31 Review of Systems Review of Systems: As per HPI. Yes all other systems are reviewed and are negative Constitutional: Constitutional: Reports as per HPI [facility] Past Medical History Medical History Acute hyperglycemia Below-knee amputation of right lower extremity Cellulitis Charcot foot due to diabetes mellitus Chronic prescription opiate use Constipation COPD (chronic obstructive pulmonary disease) COVID-19 Depression Diabetes mellitus Diabetic foot ulcer Diabetic osteomyelitis DKA (diabetic ketoacidoses) Dyslipidemia Gastritis Gastroenteritis Glaucoma New onset of congestive heart failure Osteomyelitis of ankle Pulmonary emboli Pulmonary nodule Tobacco dependence Surgical History Cataract extraction status, left eye Cataract extraction status, right eye History of below-knee amputation of right lower extremity (01/13/22) Hx of cholecystectomy Family History Family History Other CVA (cerebral vascular accident) Social History Social History Household Members: Spouse Housing: Apartment Housing Other:: hotel Do you presently have visiting nurse or other home services: No Unable to assess alcohol history related to: Unknown Alcohol intake: never Patient Tobacco Use Status: Current everyday Tobacco user Tobacco use type: Cigarette Cigarette Packs Per Day: 0.5 Cigarettes Per Day: 5 Years Smoked: 45 e-Cigarette/Vaping Use: Currently Using Second Hand Smoke Exposure: No Substance Use Type: Heroin Advance Directives: No Advance Directives Information Provided: No Advance Directives Date on File: 01/12/22 service: No (hx on methadone) Current occupational status: disabled Physical Exam Vital Signs: Vital Signs: Last Vital Signs Temp 96.2 F L 03/01/23 13:24 Pulse 57 03/01/23 13:24 Resp 15 03/01/23 13:24 BP 150/72 H 03/01/23 13:24 Pulse Ox 98 03/01/23 13:24 O2 Del Method Room Air 03/01/23 13:24 BMI result Body Mass Index 26.3 Vital signs have been reviewed and appear to be correct. Blood pressure normal. Heart rate normal. Respiratory rate normal. Temperature normal. Oxygen saturation normal. Const: General: cooperative, healthy appearing and no acute distress Orientation/consciousness: oriented to person, oriented to place, oriented to time and patient oriented x3 Limitations: no limitations HEENT: Head: Yes normocephalic and Yes atraumatic Ears: external ears normal General nose exam: Normal external nose present Face and sinus: Yes face symmetric Mouth: oropharynx normal and moist mucous membranes Throat: Yes uvula midline Eyes: Pupils: Equal, round and reactive pupils present Neck: Neck: Yes normal visual inspection and Yes supple Resp: Effort & Inspection: normal respiratory effort and able to speak in complete sentences Auscultation: clear to auscultation bilaterally Cardio: Rate: regular rate Rhythm: regular rhythm Heart sounds: S1 normal heart sound present and S2 normal heart sound present GI: Palpation (GI): Soft to palpation and nontender Auscultation: normoactive bowel sounds : General: Yes no CVA tenderness Back/Spine/Pelvis: Back: no CVA tenderness Skin: General skin exam: elasticity normal and turgor normal Neuro: General: oriented to person, oriented to place, oriented to time, patient oriented x3, moves all extremities, no focal motor deficits and CN's II-XI intact bilaterally Cranial nerves: Yes Equal, round and reactive pupils present Cognition (Neuro): normal cognition Extrem: General: Yes normal exam except as noted, Yes no pedal edema and Yes no calf tenderness Right upper extremity: full ROM Left upper extremity: normal capillary refill and shoulder/upper arm (no erythema or calor) Details: abnormal to inspection (anterior deformity), tenderness Location: of the A-C joint and of the proximal humerus and abnormal ROM Details: held in an abnormal fashion Details: in ADduction; no ecchymosis and no unsual warmth Right lower extremity: full ROM Left lower extremity: full ROM Psych: Mental Status: mental status grossly normal Affect: normal affect Thought process: Normal thought process present Medical Decision Making Medical Decision Making [facility] Narrative: Patient is a 63-year-old female presenting to the emergency department with left shoulder pain and deformity since yesterday. On exam patient is awake, A+Ox3, VS WNL, afebrile, normal neurological exam without focal deficits, deformity to anterior left shoulder with extremely limited ROM, arm held in adduction, neurovascularly intact distal. Given reported symptoms and physical exam findings, initial differential includes fracture, dislocation, contusion, malign rosalind, hardware derangement. Given history septic arthritis, osteomyelitis also possible. Labs notable for no leukocytosis, no left shift, anemia consistent with baseline and patient denies any bright red blood in stool or dark, tarry stool. Potassium mildly elevated but also slightly hemolyzed. ESR and CRP elevated consistent with prior values. X-ray notable for interval worsening of chronic erosive deformity of left glenohumeral joint. My interpretation is in agreement with the radiologist's interpretation. Discussed case with Binta from ortho who feels likely chronic, patient can be seen outpatient. Discussed case with Dr. Raymond who evaluated patient, performed bedside ultrasound with no evidence of abscess. Given that patient is afebrile, not tachycardic, normotensive feel patient is stable for discharge home with outpatient ortho follow up for further evaluation/possible MRI. Advised patient to utilize Tylenol and application of ice for discomfort. Unable to prescribe opiate pain medication as patient is already on methadone. Will prescribe topical lidocaine patches. All results and plan discussed with patient patient is agreeable to this. Return precautions discussed at bedside. Differential Diagnosis Differential Diagnoses: The differential diagnosis associated with the presentation includes As per [facility] Admission/Observation Consideration of admission/observation: Escalation of care including admission/observation considered Consult Healthcare Provider Management of the patient was discussed with: Public Relations Coordinator (see Judd; Dr. Raymond) Lab Data [facility] Lab Attestation statement: I reviewed the patient's lab results. As per [facility] 03/01/23 12:06 03/01/23 12:06 Labs: Lab Results 03/01/23 03/01/23 03/01/23 Range/Units 12:06 12:06 12:06 WBC 10.8 (4.8-10.8) X10*3/uL RBC 3.17 L D (4.20-5.50) X10*6/uL Hgb 8.9 L D (12.0-16.0) g/dl Hct 28.0 L D (37.0-47.0) % MCV 88.3 (80.0-98.0) fL MCH 28.1 (27.0-33.0) pg MCHC 31.8 (31.0-35.0) g/dl RDW 13.2 (11.0-16.0) % Plt Count 375 (160-400) X10*3/uL MPV 10.0 (9.4-12.3) fL Immature Gran % (Auto) 0.2 (0.0-0.4) % Neut % (Auto) 68.1 (45-73) % Lymph % (Auto) 21.9 (20-40) % [place] % (Auto) 7.9 (2-11) % Eos % (Auto) 1.5 (0-4) % Baso % (Auto) 0.4 (0-2) % Lymph # (Auto) 2.4 (1.2-4.9) X10*3/uL [place] # (Auto) 0.9 (0.1-1.2) X10*3/uL Eos # (Auto) 0.2 (0.0-0.4) X10*3/uL Baso # (Auto) 0.0 (0.0-0.2) X10*3/uL Abs Immat Gran (auto) 0.02 (0.00-0.03) X10*3/uL Absolute Neuts (auto) 7.4 (2.0-8.3) x10*3/uL Absolute Nucleated RBC 0.000 (0.0-0.012) X10*3/uL Nucleated RBC % (auto) 0.0 (0.0-0.2) /100WBC ESR 116 H (0-20) MM/HR Sodium 139 (135-145) mmol/L Potassium 5.6 H D (3.3-5.1) mmol/L Chloride 106 (96-108) mmol/L Carbon Dioxide 23 (22-29) mmol/L Anion Gap 16 (12-20) BUN 15 (9-16) mg/dL Creatinine 0.91 (0.5-1.4) mg/dL Estim Creat Clear Calc 49.4 Estimated GFR > 60 Random Glucose 208 H (60-115) mg/dL Calcium 10.0 D (8.4-10.2) mg/dL C-Reactive Protein 12.55 H (< or = 0.50) mg/dL Independent Interpretation I performed an independent interpretation of an: Plain X-Ray Interpretation: worsening of chronic erosive deformity to left glenohumeral joint Radiology Impression Discussion of test interpretation with radiology: I have reviewed the radiologist's reading. Radiologist Impression: XR/XR shoulder LT min 2V IMPRESSION: Interval worsening of chronic erosive deformity of left glenohumeral joint. ? Correlation with details of patient's past medical history needed. Findings could represent sequela of previously treated septic arthritis and osteomyelitis. This examination does not exclude any recurrent or ongoing indolent inflammation at the glenohumeral joint. ? If there is clinical suspicion for a recurrent septic arthritis or soft tissue abscess, then obtain MRI of the shoulder without and with IV contrast. External Record Review External record reviewed: Inpatient record, Office record and Outpatient record Prescription Management I considered prescription management with: Pain Medication Chronic Conditions Patient?s care impacted by: Diabetes Discharge Plan Discharge Clinical Impression: Left shoulder pain Patient Disposition: Home, Self-Care Instructions: Shoulder Pain (ED) Additional Instructions: You were evaluated in the emergency department today for left shoulder pain and swelling. Your evaluation did not show evidence of any conditions requiring emergent treatment. It is recommended that you follow-up with orthopedics for further evaluation of your symptoms. Please call their office tomorrow morning to establish an appointment. We recommend you take Tylenol 650mg every 6 hours as needed for pain. You are being prescribed topical lidocaine patches which you can apply to the affected area for up to 12 hours in a 24 hour period, do not apply heat directly over the patches. You can also apply ice to the area for 10-15 minutes at a time several times daily, using caution not to apply ice directly to skin. You are given a sling in the emergency department today, do not wear this for more than 2 days. Return to the emergency department for worsening pain, worsening swelling, new weakness, numbness, or tingling to your arm, color change your arm, fever 100.4? F or greater, or any other concerning symptoms. Prescriptions: New lidocaine 5 % adhesive patch,medicated 1 patch topical DAILY Qty: 15 0RF Rx Instructions: leave on most painful area for up to 12 hrs No Action (DME) walker Misc See Rx Instructions .ROUTE .MEDSUPPLY Qty: 1 0RF Rx Instructions: As directed fluticasone propionate [Flovent HFA] 110 mcg/actuation Hfa Aerosol Inhaler 2 puff INHALATION BID methadone [Methadone Intensol] 10 mg/mL Concentrate 100 mg PO DAILY insulin aspart U-100 [Novolog FlexPen U-100 Insulin] 100 unit/mL (3 mL) insulin pen See Rx Instructions .ROUTE .COMPLEX Rx Instructions: SLIDING SCALE insulin glargine [Lantus U-100 Insulin] 100 unit/mL Solution 15 unit subcut BEDTIME Qty: 10 0RF oxycodone 5 mg Tablet 5 mg PO Q4H PRN (Reason: moderate pain) Qty: 18 0RF Rx Instructions: Partial Fill upon patient request. ondansetron 4 mg tablet,disintegrating 4 mg PO TID PRN (Reason: nausea and vomiting) 5 Days Qty: 10 0RF metoclopramide HCl [Reglan] 10 mg tablet 10 mg PO Q8H PRN (Reason: nausea and vomiting) Qty: 40 0RF Rx Instructions: Take 1 tablet 1 hour prior to meals dicyclomine 20 mg tablet 20 mg PO TID PRN (Reason: abdominal pain) Qty: 20 0RF gabapentin 600 mg tablet 600 mg PO TID (DME) lancets 33 gauge misc See Rx Instructions Not Applicable TID Qty: 100 Rx Instructions: As directed cholecalciferol (vitamin D3) 50 mcg (2,000 unit) tablet 50 mcg PO DAILY albuterol sulfate 90 mcg/actuation HFA aerosol inhaler 2 puff PO Q4H PRN (Reason: Respiratory Distress) lisinopril 10 mg tablet 10 mg PO DAILY omeprazole 20 mg capsule,delayed release(DR/EC) 20 mg PO DAILY metformin 1,000 mg tablet 1,000 mg PO BIDWMEAL aspirin 81 mg tablet,delayed release (DR/EC) 81 mg PO DAILY bupropion HCl 150 mg tablet sustained-release 12 hr 150 mg PO BID atorvastatin 40 mg tablet 40 mg PO DAILY Referrals: [facility] [place] [facility] [Provider Group]
[2023-03-01 12:10] LABS: MANUAL DIFF FLAG NO
[2023-03-01 12:14] LABS: Basophils Percent Auto 0.4 % (0-2); Eosinophils Absolute Auto 0.2 X10*3/uL (0.0-0.4); Eosinophils Percent Auto 1.5 % (0-4); Hemoglobin 8.9 g/dl (12.0-16.0); Imm Gran Abs Auto 0.02 X10*3/uL (0.00-0.03); Imm Gran Pct Auto 0.2 % (0.0-0.4); Lymphocytes Absolute Auto 2.4 X10*3/uL (1.2-4.9); Lymphocytes Percent Auto 21.9 % (20-40); Mean Corpuscular HGB Conc 31.8 g/dl (31.0-35.0); Mean Corpuscular Hemoglobin 28.1 pg (27.0-33.0); Mean Corpuscular Volume 88.3 fL (80.0-98.0); Monocytes Absolute Auto 0.9 X10*3/uL (0.1-1.2); Monocytes Percent Auto 7.9 % (2-11); Neutrophils Absolute Auto 7.4 x10*3/uL (2.0-8.3); Neutrophils Percent Auto 68.1 % (45-73); Platelet Count 375 X10*3/uL (160-400); Red Blood Count 3.17 X10*6/uL (4.20-5.50); Red Cell Distribution Width 13.2 % (11.0-16.0); White Blood Count 10.8 X10*3/uL (4.8-10.8)
[2023-03-01 12:25] LABS: Anion Gap 16 (12-20); Blood Urea Nitrogen 15 mg/dL (9-16); C Reactive Protein 12.55 mg/dL (< or = 0.50); Carbon Dioxide 23 mmol/L (22-29); Chloride 106 mmol/L (96-108); Creatinine Clr Calc Pharmacy 49.4; Estimated Glomerular Filt Rate > 60; Glucose Random 208 mg/dL (60-115); Potassium 5.6 mmol/L (3.3-5.1); Sodium 139 mmol/L (135-145)
[2023-03-01 12:59] LABS: Erythrocyte Sedimentation Rate 116 MM/HR (0-20)
[2023-03-01 13:24] VITALS: BP 150/72; PULSE 57; RESP 15; TEMP 35.7; O2SAT 98
== END 2023-03-01 14:42 | disposition home or self-care (01) ==
PROVIDERS: Registered Nurse Emergency; Emergency Provider Emergency Medicine; PCP Internal Medicine
DX: M25.512 Pain in left shoulder (principal)
CPT/HCPCS: 36415; 73030; 80048; 85025; 85652; 86140; 99282; 99284

== ENCOUNTER 2023-03-19 14:13 | Outpatient (AMB) | payer MEDICARE, MEDICAID, SELFPAY ==
--- NOTE | 2023-03-19 14:27 | A.OFFVIS_ITS ---
Intake Intake Visit Reasons: New Pt - Left Shoulder Pain Intake Note: Lazara is a 63 year old right hand dominant female who presents today with complaints of left shoulder pain. She was [place] [facility] due to concerns of left shoulder deformity , reports history of shoulder surgery but unsure what was done in this surgery believe it may have been muscle/tendon repair. She explains that this all started after falling on 11/19/22. Allergies No Known Allergies Allergy (Verified 03/01/23 09:31) HPI New Pt - Left Shoulder Pain HPI Details This is a 63-year-old woman with inability to abduct her left shoulder and with pain. She describes a history of left shoulder surgery in [place] She is unsure what the surgery was and exactly when it was. She does not know if she had an infection. She does have a scar over the anterior biceps of the left arm [facility] Medical History (Updated 03/20/23 @ 10:30 by Kendrick Richter MD) Diabetic osteomyelitis Below-knee amputation of right lower extremity Osteomyelitis of ankle Charcot foot due to diabetes mellitus Acute hyperglycemia Cellulitis Gastroenteritis Gastritis Constipation Diabetic foot ulcer New onset of congestive heart failure DKA (diabetic ketoacidoses) COVID-19 Dyslipidemia Glaucoma Pulmonary emboli Depression Chronic prescription opiate use Diabetes mellitus Pulmonary nodule Tobacco dependence COPD (chronic obstructive pulmonary disease) Surgical History History of below-knee amputation of right lower extremity (01/13/22) Cataract extraction status, right eye Cataract extraction status, left eye Hx of cholecystectomy Family History Other CVA (cerebral vascular accident) Social History Household Members: Spouse Housing: Apartment Housing Other:: hotel Do you presently have visiting nurse or other home services: No Unable to assess alcohol history related to: Unknown Alcohol intake: never Patient Tobacco Use Status: Current everyday Tobacco user Tobacco use type: Cigarette Cigarette Packs Per Day: 0.5 Cigarettes Per Day: 5 Years Smoked: 45 e-Cigarette/Vaping Use: Currently Using Second Hand Smoke Exposure: No Substance Use Type: Heroin Advance Directives Date on File: 01/12/22 service: No (hx on methadone) Current occupational status: disabled Physical Exam Extrem Other: 60 degrees of abduction and painful and minimal external rotation both passively and actively. She does a well-healed incision over the biceps from the mid humerus up proximally. She has some soreness in the axillary region and the biceps and adjacent to the pectoralis musculature. Results Reviewed Results Reviewed: I personally reviewed relevant radiographs. Interval worsening of chronic erosive deformity of left glenohumeral joint. Correlation with details of patient's past medical history needed. Findings could represent sequela of previously treated septic arthritis and osteomyelitis. This examination does not exclude any recurrent or ongoing indolent inflammation at the glenohumeral joint. If there is clinical suspicion for a recurrent septic arthritis or soft tissue abscess, then obtain MRI of the shoulder without and with IV contrast. Assessment & Plan Assessment & Plan (1) PAD (peripheral artery disease): Code(s): I73.9 - Peripheral vascular disease, unspecified (2) Diabetic osteomyelitis: Code(s): E11.69 - Type 2 diabetes mellitus with other specified complication; M86.9 - Osteomyelitis, unspecified Plan: This is a 63-year-old woman with what appears to be worsening degeneration of the left glenohumeral joint with pain. She has a history of diabetic osteomyelitis and reports having has surgery of her left shoulder in [place]. I would like to see the information regarding that surgery she does have a large anterior scar over her left anterior arm. It is unclear whether this was vascular orthopedic in nature. She is a poor historian. This has been ongoing for some time and there is no active evidence of infection other than pain and radiographic findings at least in her shoulder. I discussed this with her she will return when she has the information regarding her prior surgery. Quality Reporting (2019) Adult ([facility] 138/08/27/68) Smoking risk assessment performed?: Yes Patient Tobacco Use Status: Current everyday Tobacco user Coding Level of Care Code New Pt Level 4 (44748) Diagnoses PAD (peripheral artery disease) I73.9 Diabetic osteomyelitis E11.69; M86.9
== END 2023-03-19 14:57 | disposition home or self-care (01) ==
PROVIDERS: PCP Internal Medicine; Visit Provider Orthopaedic Surgery
DX: M21.211 Flexion deformity, right shoulder (principal); I73.9 Peripheral vascular disease, unspecified; M86.9 Osteomyelitis, unspecified
CPT/HCPCS: 99203

== ENCOUNTER → 2023-03-19 14:13 | Outpatient (BNVA) | payer MEDICARE, MEDICAID, SELFPAY | PROVIDERS: PCP Internal Medicine; Visit Provider Orthopaedic Surgery ==

== ENCOUNTER 2023-06-09 17:20 | Emergency (ER) | payer MEDICARE, MEDICAID, SELFPAY ==
[2023-06-09 17:32] VITALS: BP 130/78; PULSE 74; O2SAT 100
[2023-06-09 18:18] VITALS: BP 128/62; PULSE 63; RESP 16; TEMP 36.3; O2SAT 98; BMI 27.5
--- NOTE | 2023-06-09 18:23 | ED_ITS ---
HPI - General Adult General Chief complaint: Wound/Laceration Stated complaint: unkown mass on shoulder Time Seen by Provider: 06/09/23 22:38 Source: patient Mode of arrival: ambulatory History of Present Illness HPI narrative: 63-year-old female, history of diabetes who presents with worsening redness and she suspects abscess to left shoulder for 4 days denies any associated fever or chills and patient states she has tried warm moist compresses without significant success. Patient states that she has had these previously. Related Data Home Medications Medication Instructions Recorded Confirmed albuterol sulfate 90 mcg/actuation 2 puff PO Q4H PRN Respiratory 04/24/20 04/15/22 aerosol inhaler Distress aspirin 81 mg tablet,delayed 81 mg PO DAILY 04/24/20 04/15/22 release atorvastatin 40 mg tablet 40 mg PO DAILY 04/24/20 04/15/22 bupropion HCl 150 mg tablet,12 hr 150 mg PO BID 04/24/20 04/15/22 sustained-release cholecalciferol (vitamin D3) 50 50 mcg PO DAILY 04/24/20 04/15/22 mcg (2,000 unit) tablet lancets 33 gauge #100 ea 04/24/20 04/15/22 lisinopril 10 mg tablet 10 mg PO DAILY 04/24/20 04/15/22 metformin 1,000 mg tablet 1,000 mg PO BIDWMEAL 04/24/20 04/15/22 omeprazole 20 mg capsule,delayed 20 mg PO DAILY 04/24/20 04/15/22 release gabapentin 600 mg tablet 600 mg PO TID 05/03/20 04/15/22 methadone 10 mg/mL oral 100 mg PO DAILY 05/28/20 04/15/22 concentrate (Methadone Intensol) insulin aspart U-100 100 unit/mL See Rx Instructions .Route .COMPLEX 12/26/20 04/15/22 (3 mL) subcutaneous pen (Novolog FlexPen U-100 Insulin aspart) Previous Rx's Medication Instructions Recorded walker #1 ea 10/11/20 insulin glargine 100 unit/mL 15 unit (0.15 mL) subcut BEDTIME 01/16/22 subcutaneous solution (Lantus #10 mL U-100 Insulin) ondansetron 4 mg disintegrating 4 mg PO TID PRN nausea and 12/09/22 tablet vomiting 5 days #10 tabs metoclopramide HCl 10 mg tablet 10 mg PO Q8H PRN nausea and 12/10/22 (Reglan) vomiting #40 tabs lidocaine 5 % topical patch 1 patch topical DAILY #15 ea 03/01/23 cephalexin 500 mg capsule 500 mg PO BID 7 days #14 caps 06/10/23 doxycycline monohydrate 100 mg 100 mg PO BID 7 days #14 caps 06/10/23 capsule Allergies Allergy/AdvReac Type Severity Reaction Status Date / Time No Known Allergies Allergy Verified 03/01/23 09:31 Review of Systems 2 Review of Systems: Pertinent positives and negatives as stated in [facility] Past Medical History Source: nursing notes reviewed Medical History Diabetic osteomyelitis Below-knee amputation of right lower extremity Osteomyelitis of ankle Charcot foot due to diabetes mellitus Acute hyperglycemia Cellulitis Gastroenteritis Gastritis Constipation Diabetic foot ulcer New onset of congestive heart failure DKA (diabetic ketoacidoses) COVID-19 Dyslipidemia Glaucoma Pulmonary emboli Depression Chronic prescription opiate use Diabetes mellitus Pulmonary nodule Tobacco dependence COPD (chronic obstructive pulmonary disease) Surgical History History of below-knee amputation of right lower extremity (01/13/22) Cataract extraction status, right eye Cataract extraction status, left eye Hx of cholecystectomy Family History Family History Other CVA (cerebral vascular accident) Social History Social History Household Members: Spouse Housing: Apartment Housing Other:: hotel Do you presently have visiting nurse or other home services: No Unable to assess alcohol history related to: Unknown Alcohol intake: never Comment: refused telesitter Patient Tobacco Use Status: Current everyday Tobacco user Tobacco use type: Cigarette Cigarette Packs Per Day: 0.5 Cigarettes Per Day: 5 Years Smoked: 45 e-Cigarette/Vaping Use: Currently Using Second Hand Smoke Exposure: No Substance Use Type: Heroin Advance Directives: Yes Advance Directives on File: Yes Advance Directives Date on File: 01/12/22 service: No (hx on methadone) Current occupational status: disabled Physical Exam ED Vital Signs: Vital Signs - 24 hr 06/09/23 18:18 Temperature 97.3 F Pulse Rate 63 Respiratory Rate 16 Blood Pressure 128/62 Pulse Oximetry 98 Oxygen Delivery Method Room Air BMI result Body Mass Index 27.5 VITAL SIGNS: Reviewed. GENERAL: Well developed, well nourished, in no acute distress. HEAD: Normocephalic/atraumatic EYES: PERRLA, EOMI LUNGS: Normal breath sounds. No adventitious sounds or accessory muscle use. SpO2<98> CARDIOVASCULAR: Regular rate and rhythm without noted murmurs ABDOMEN: Soft, non-tender, non-distended with bowel sounds. MUSCULOSKELETAL: No tenderness, deformities, or effusions noted on gross inspection. EXTREMITIES: No cyanosis, clubbing or edema. LEFT SHOULDER: 6 cm abscess to anterior aspect of left shoulder, neurovascular intact distally SKIN: Inspection of the skin reveals no rashes NEUROLOGIC: Alert and oriented x 4. Strength and sensation to light touch were grossly intact x 4. Course Course Course Narrative: This is a rapid medical exam: Additional HPI, ROS, PE not included below will be deferred to primary provider. Patient is a 63-year-old female presenting to the emergency department with complaint of abscess to left anterior shoulder. Patient denies attempting to drain herself, denies any spontaneous drainage. Denies fevers. Plan: labs Procedures Abscess I/D Site: upper extremity Side (if applicable): left Local Anesthetic: lidocaine 1% Amount of anesthesia used (mL): 2 Technique: incised with blade Amount of fluid expressed (mL): 110 Sent for culture/gram staining?: No Irrigation: Yes Packing used?: none Medical Decision Making Medical Decision Making MDM Narrative: 63-year-old female with history and clinical presentation, DDX: Abscess, doubt fracture or dislocation. I reviewed all investigations and hematologic indices demonstrates a mild leukocytosis without left shift, there is no thrombocytopenia there is a stable normocytic anemia. Chemistry indices are grossly within normal limits and there is no demonstrated AUBRIE I or electrolyte derangement. Incision and drainage completed at the left anterior shoulder with the expression of over 100 cc of purulence drainage, irrigation was conducted, patient tolerated procedure well and received initial antibiotics here in the emergency room and is otherwise discharged home with remaining course and strict instructions to follow-up with her primary care doctor for further management. Differential Diagnosis Differential Diagnoses: The differential diagnosis associated with the presentation includes Please see the discussion above Admission/Observation Consideration of admission/observation: Escalation of care including admission/observation considered Please see the discussion above Lab Data MDM Lab Attestation statement: I reviewed the patient's lab results. Please see the discussion above 06/09/23 18:51 06/09/23 18:51 Labs: Lab Results 06/09/23 Range/Units 18:51 WBC 11.8 H (4.8-10.8) X10*3/uL RBC 3.61 L (4.20-5.50) X10*6/uL Hgb 9.5 L (12.0-16.0) g/dl Hct 31.0 L (37.0-47.0) % MCV 85.9 (80.0-98.0) fL MCH 26.3 L (27.0-33.0) pg MCHC 30.6 L (31.0-35.0) g/dl RDW 15.3 (11.0-16.0) % Plt Count 465 H (160-400) X10*3/uL MPV 9.6 (9.4-12.3) fL Immature Gran % (Auto) 0.3 (0.0-0.4) % Neut % (Auto) 71.1 (45-73) % Lymph % (Auto) 20.6 (20-40) % [place] % (Auto) 6.1 (2-11) % Eos % (Auto) 1.4 (0-4) % Baso % (Auto) 0.5 (0-2) % Lymph # (Auto) 2.4 (1.2-4.9) X10*3/uL [place] # (Auto) 0.7 (0.1-1.2) X10*3/uL Eos # (Auto) 0.2 (0.0-0.4) X10*3/uL Baso # (Auto) 0.1 (0.0-0.2) X10*3/uL Abs Immat Gran (auto) 0.04 H (0.00-0.03) X10*3/uL Absolute Neuts (auto) 8.4 H (2.0-8.3) x10*3/uL Absolute Nucleated RBC 0.000 (0.0-0.012) X10*3/uL Nucleated RBC % (auto) 0.0 (0.0-0.2) /100WBC Sodium 139 (135-145) mmol/L Potassium 4.7 (3.3-5.1) mmol/L Chloride 103 (96-108) mmol/L Carbon Dioxide 27 (22-29) mmol/L Anion Gap 14 (12-20) BUN 16 (9-16) mg/dL Creatinine 1.00 (0.5-1.4) mg/dL Estim Creat Clear Calc 46.0 Estimated GFR 56 Random Glucose 82 (60-115) mg/dL Calcium 9.7 (8.4-10.2) mg/dL External Record Review External record reviewed: Outpatient record and Prior outpatient labs Chronic Conditions Patient?s care impacted by: Diabetes Critical Care Time Critical Care Time Critical Care Time: Yes Total Critical Care Time: 30 Attestation: I personally attest to this time spent taking care of the patient. Discharge Plan Discharge Clinical Impression: Abscess, Encounter for incision and drainage procedure Patient Disposition: Home, Self-Care Instructions: Abscess (ED), Abscess Follow-up (ED), Incision and Drainage (ED) Additional Instructions: 1. Resume all home medications as prescribed 2. Complete the entire course of antibiotics as prescribed. 3. Please follow-up with your primary care provider by calling the office 1st thing in the morning and setting up an appointment for re-evaluation further outpatient management. Return to the ER for any worsening symptoms. Prescriptions: New doxycycline monohydrate 100 mg capsule 100 mg PO BID 7 Days Qty: 14 0RF cephalexin 500 mg capsule 500 mg PO BID 7 Days Qty: 14 0RF No Action (DME) [facility] See Rx Instructions .ROUTE .MEDSUPPLY Qty: 1 0RF Rx Instructions: As directed methadone [Methadone Intensol] 10 mg/mL Concentrate 100 mg PO DAILY insulin aspart U-100 [Novolog FlexPen U-100 Insulin] 100 unit/mL (3 mL) insulin pen See Rx Instructions .ROUTE .COMPLEX Rx Instructions: SLIDING SCALE insulin glargine [Lantus U-100 Insulin] 100 unit/mL Solution 15 unit subcut BEDTIME Qty: 10 0RF ondansetron 4 mg tablet,disintegrating 4 mg PO TID PRN (Reason: nausea and vomiting) 5 Days Qty: 10 0RF metoclopramide HCl [Reglan] 10 mg tablet 10 mg PO Q8H PRN (Reason: nausea and vomiting) Qty: 40 0RF Rx Instructions: Take 1 tablet 1 hour prior to meals lidocaine 5 % adhesive patch,medicated 1 patch topical DAILY Qty: 15 0RF Rx Instructions: leave on most painful area for up to 12 hrs gabapentin 600 mg tablet 600 mg PO TID (DME) lancets 33 gauge misc See Rx Instructions Not Applicable TID Qty: 100 Rx Instructions: As directed cholecalciferol (vitamin D3) 50 mcg (2,000 unit) tablet 50 mcg PO DAILY albuterol sulfate 90 mcg/actuation HFA aerosol inhaler 2 puff PO Q4H PRN (Reason: Respiratory Distress) lisinopril 10 mg tablet 10 mg PO DAILY omeprazole 20 mg capsule,delayed release(DR/EC) 20 mg PO DAILY metformin 1,000 mg tablet 1,000 mg PO BIDWMEAL aspirin 81 mg tablet,delayed release (DR/EC) 81 mg PO DAILY bupropion HCl 150 mg tablet sustained-release 12 hr 150 mg PO BID atorvastatin 40 mg tablet 40 mg PO DAILY Referrals: Kevon Herring MD [Primary Care Provider] -
[2023-06-09 18:56] LABS: MANUAL DIFF FLAG NO
[2023-06-09 19:01] LABS: Basophils Absolute Auto 0.1 X10*3/uL (0.0-0.2); Basophils Percent Auto 0.5 % (0-2); Eosinophils Absolute Auto 0.2 X10*3/uL (0.0-0.4); Eosinophils Percent Auto 1.4 % (0-4); Hemoglobin 9.5 g/dl (12.0-16.0); Imm Gran Abs Auto 0.04 X10*3/uL (0.00-0.03); Imm Gran Pct Auto 0.3 % (0.0-0.4); Lymphocytes Absolute Auto 2.4 X10*3/uL (1.2-4.9); Lymphocytes Percent Auto 20.6 % (20-40); Mean Corpuscular HGB Conc 30.6 g/dl (31.0-35.0); Mean Corpuscular Hemoglobin 26.3 pg (27.0-33.0); Mean Corpuscular Volume 85.9 fL (80.0-98.0); Mean Platelet Volume 9.6 fL (9.4-12.3); Monocytes Absolute Auto 0.7 X10*3/uL (0.1-1.2); Monocytes Percent Auto 6.1 % (2-11); Neutrophils Absolute Auto 8.4 x10*3/uL (2.0-8.3); Neutrophils Percent Auto 71.1 % (45-73); Platelet Count 465 X10*3/uL (160-400); Red Blood Count 3.61 X10*6/uL (4.20-5.50); Red Cell Distribution Width 15.3 % (11.0-16.0); White Blood Count 11.8 X10*3/uL (4.8-10.8)
[2023-06-09 19:11] LABS: Anion Gap 14 (12-20); Blood Urea Nitrogen 16 mg/dL (9-16); Calcium 9.7 mg/dL (8.4-10.2); Carbon Dioxide 27 mmol/L (22-29); Chloride 103 mmol/L (96-108); Estimated Glomerular Filt Rate 56; Glucose Random 82 mg/dL (60-115); Potassium 4.7 mmol/L (3.3-5.1); Sodium 139 mmol/L (135-145)
[2023-06-10] MEDS: Doxycycline Monohydrate 100 MG CAPSULE PO (01:06)
[2023-06-10] MEDS: cephALEXin 500 MG CAPSULE PO (01:07)
[2023-06-10 01:27] VITALS: BP 115/60; PULSE 59; RESP 18; O2SAT 99
== END 2023-06-10 01:28 | disposition home or self-care (01) ==
PROVIDERS: Registered Nurse Emergency; Emergency Provider Student in an Organized Health Care Education/Training Program; PCP Internal Medicine
DX: L02.414 Cutaneous abscess of left upper limb (principal); F17.210 Nicotine dependence, cigarettes, uncomplicated; Z79.899 Other long term (current) drug therapy; Z71.6 Tobacco abuse counseling
CPT/HCPCS: 10060; 36415; 80048; 85025; 99283; 99284

== ENCOUNTER 2023-06-25 14:03 | Emergency (ER) | payer MEDICARE, MEDICAID, SELFPAY ==
--- NOTE | ~2023-06-25 | XR_ITS ---
EXAMINATION: XR HIP, LEFT CLINICAL INFORMATION: Left-sided pain COMPARISON: None available. TECHNIQUE: Two views of the left hip. FINDINGS: No fracture, dislocation or destructive process. Joint spaces are well preserved. No erosive change. Extensive vascular calcifications however are noted in the pelvis and in the left thigh. AP view of the pelvis shows a large stool burden the colon. There is degenerative change in the right hip with vascular calcifications noted overlying the right pelvis and right thigh. XR/XR hip LT w [id number] IMPRESSION: No acute findings regarding the left hip.
[2023-06-25 15:25] VITALS: BP 164/64; PULSE 70; RESP 18; TEMP 36.2; O2SAT 99; BMI 29.3
--- NOTE | 2023-06-25 15:25 | ED_ITS ---
HPI - Extremity Injury (Upper) General Chief Complaint: Skin/Abscess/Foreign Body Stated Complaint: Lump on shoulder Time Seen by Provider: 06/25/23 18:38 Source: patient, RN notes reviewed and old records reviewed Mode of arrival: ambulatory Limitations: no limitations History of Present Illness HPI narrative: 63-year-old female presents for evaluation of multiple complaints. She reports that she has recurrent abscess to her left anterior shoulder She was seen here on 06/09/2023 and had a drain She finished a course of antibiotics She states that distally started to grow again over the last 2 days Patient reports that today it popped open and ?drained a lot of pus. ? She denies any fevers or chills She also complains of left lower back/hip pain which started today Denies any recent falls, numbness, tingling or weakness Her pain is a 12/13 Patient's glucose was checked prior to my evaluation right and was noted to be low at 41. The patient reports that she feels well but ?cold. ? She was given crackers, orange juice Related Data Home Medications Medication Instructions Recorded Confirmed albuterol sulfate 90 mcg/actuation 2 puff PO Q4H PRN Respiratory 04/24/20 04/15/22 aerosol inhaler Distress aspirin 81 mg tablet,delayed 81 mg PO DAILY 04/24/20 04/15/22 release atorvastatin 40 mg tablet 40 mg PO DAILY 04/24/20 04/15/22 bupropion HCl 150 mg tablet,12 hr 150 mg PO BID 04/24/20 04/15/22 sustained-release cholecalciferol (vitamin D3) 50 50 mcg PO DAILY 04/24/20 04/15/22 mcg (2,000 unit) tablet lancets 33 gauge #100 ea 04/24/20 04/15/22 lisinopril 10 mg tablet 10 mg PO DAILY 04/24/20 04/15/22 metformin 1,000 mg tablet 1,000 mg PO BIDWMEAL 04/24/20 04/15/22 omeprazole 20 mg capsule,delayed 20 mg PO DAILY 04/24/20 04/15/22 release gabapentin 600 mg tablet 600 mg PO TID 05/03/20 04/15/22 methadone 10 mg/mL oral 100 mg PO DAILY 05/28/20 04/15/22 concentrate (Methadone Intensol) insulin aspart U-100 100 unit/mL See Rx Instructions .Route .COMPLEX 12/26/20 04/15/22 (3 mL) subcutaneous pen (Novolog FlexPen U-100 Insulin aspart) Previous Rx's Medication Instructions Recorded walker #1 ea 10/11/20 insulin glargine 100 unit/mL 15 unit (0.15 mL) subcut BEDTIME 01/16/22 subcutaneous solution (Lantus #10 mL U-100 Insulin) ondansetron 4 mg disintegrating 4 mg PO TID PRN nausea and 12/09/22 tablet vomiting 5 days #10 tabs metoclopramide HCl 10 mg tablet 10 mg PO Q8H PRN nausea and 12/10/22 (Reglan) vomiting #40 tabs lidocaine 5 % topical patch 1 patch topical DAILY #15 ea 03/01/23 cephalexin 500 mg capsule 500 mg PO BID 7 days #14 caps 06/10/23 doxycycline monohydrate 100 mg 100 mg PO BID 7 days #14 caps 06/10/23 capsule cephalexin 500 mg capsule 500 mg PO QID #28 caps 06/25/23 doxycycline hyclate 100 mg tablet 100 mg PO BID #14 tabs 06/25/23 Allergies Allergy/AdvReac Type Severity Reaction Status Date / Time No Known Allergies Allergy Verified 06/25/23 15:25 Review of Systems Constitutional: Constitutional: Denies chills and Denies fever(s) ENT: Denies sore throat Cardiovascular: Cardiovascular: Denies chest pain and Denies dyspnea Respiratory: Respiratory: Denies cough and Denies dyspnea Gastrointestinal: Gastrointestinal: Denies abdominal pain, Denies nausea and Denies vomiting Musculoskeletal: Musculoskeletal: Reports back pain, Reports arthralgias, Denies joint swelling and Denies limited range of motion Integumentary/Breasts: Skin/Breast: Reports furuncle and Reports erythema Psychiatric: Psychiatric: Denies anxiety PMFSH Past Medical History Medical History Diabetic osteomyelitis Below-knee amputation of right lower extremity Osteomyelitis of ankle Charcot foot due to diabetes mellitus Acute hyperglycemia Cellulitis Gastroenteritis Gastritis Constipation Diabetic foot ulcer New onset of congestive heart failure DKA (diabetic ketoacidoses) COVID-19 Dyslipidemia Glaucoma Pulmonary emboli Depression Chronic prescription opiate use Diabetes mellitus Pulmonary nodule Tobacco dependence COPD (chronic obstructive pulmonary disease) Surgical History History of below-knee amputation of right lower extremity (01/13/22) Cataract extraction status, right eye Cataract extraction status, left eye Hx of cholecystectomy Family History Family History Other CVA (cerebral vascular accident) Social History Social History Household Members: Spouse Housing: Apartment Housing Other:: hotel Do you presently have visiting nurse or other home services: No Unable to assess alcohol history related to: Unknown Alcohol intake: never Comment: refused telesitter Patient Tobacco Use Status: Current everyday Tobacco user Tobacco use type: Cigarette Cigarette Packs Per Day: 0.5 Cigarettes Per Day: 5 Years Smoked: 45 e-Cigarette/Vaping Use: Currently Using Second Hand Smoke Exposure: No Substance Use Type: Heroin Advance Directives: Yes Advance Directives on File: No Advance Directives Date on File: 01/12/22 service: No (hx on methadone) Current occupational status: disabled Physical Exam Vital Signs: Vital Signs: Last Vital Signs Temp 97.2 F 06/25/23 15:25 Pulse 64 06/25/23 18:37 Resp 18 06/25/23 18:37 BP 167/55 H 06/25/23 18:37 Pulse Ox 98 06/25/23 18:37 O2 Del Method Room Air 06/25/23 18:37 BMI result Body Mass Index 29.3 Const: General: healthy appearing, comfortable, no acute distress, alert and awake Nutritional Appearance: well nourished Orientation/consciousness: patient oriented x3 HEENT: Head: Yes normocephalic and Yes atraumatic Eyes: Eyelids: Yes eyelids normal Conjunctivae: conjunctivae normal Sclerae: sclerae normal Corneas: corneas normal Pupils: Equal, round and reactive pupils present EOM: EOMs intact bilaterally Neck: Neck: Yes full ROM Resp: Effort & Inspection: normal respiratory effort, able to speak in complete sentences and not labored GI: Inspection: No distended Palpation (GI): Soft to palpation, not firm, nontender, no guarding and not rigid Back/Spine/Pelvis: Other: Mild left lumbar paraspinous muscle tenderness without vertebral tenderness or deformity. Patient has full range of motion to the left hip. There is no left hip tenderness with no shortening or rotation of the left lower extremity Skin: Other: Patient has an area of induration to the left anterior shoulder. This is approximately 6 cm in diameter. There is trace erythema. There is no fluctuance. There is a central opening with minimal purulent drainage, nontender palpation General skin exam: elasticity normal Neuro: General: patient oriented x3 Cranial nerves: Yes Equal, round and reactive pupils present and Yes Bilaterally intact EOM present Cognition (Neuro): normal cognition Course Course Course Narrative: RME: 63yoF w/PMHx COPD, depression, DM PAD, c/o abscess to L shoulder x few weeks > was seen & tx in the ED on 06/09 had I&D & Rx Abx which she reports compliance, however recollected 2-3 days ago. Also reports L hip pain since this AM, no reported falls L shoulder abscess w/central fluctuance and surrounding erythema/warmth. Difficult to fully assess in triage. Hip x-ray ordered Full HPI, ROS and PE to be performed by primary ED provider. Medical Decision Making Medical Decision Making [facility] [place] Narrative: Patient has a recurrent abscess to left shoulder, it burst open and drained prior to arrival line unwell to express any further purulent drainage from these opening. There is no fluctuance, denies see indication for further incision or drainage. There is no evidence of substance normal patient's are any fevers, chills or systemic symptoms parents she also complains of left lower back pain. This is likely muscular an urgent care The left hip was unremarkable. The patient denies any recent trauma or falls. No warning signs to suggest cauda equina syndrome. So we symptomatic treatment. Given the hypoglycemia, the patient was given orange juice and crackers, will repeat point of care glucose prior to discharge. Her 1st dose of antibiotics was given in the ER. She also be given a general surgery referral for return abscess Differential Diagnosis Differential Diagnoses: The differential diagnosis associated with the presentation includes Cellulitis Abscess Back pain Hip pain Radiculopathy Sciatica Lab Data Labs: Lab Results 06/25/23 Range/Units 18:34 POC Glucose 41 L* (60-115) mg/dL Independent Interpretation I performed an independent interpretation of an: Plain X-Ray (No obvious deformity the left hip) Radiology Impression Discussion of test interpretation with radiology: I have reviewed the radiologist's reading. (No acute findings regarding the left hip) Tests considered The following testing was considered but not selected: Labs were considered below patient has no systemic symptoms, stable vital signs. Low suspicion for sepsis. Discharge Plan Discharge Clinical Impression: Abscess, Low back pain, Hypoglycemia Patient Disposition: Home, Self-Care Instructions: Abscess (ED) Additional Instructions: You have a recurrent abscess of the left shoulder Take the antibiotics again for 7 days Call General surgery tomorrow morning to schedule follow-up due to the recurrent abscess Your x-ray did not show any concerning abnormalities Use ibuprofen or Tylenol for the pain Check your sugar frequently as your blood sugar was low in the ER today Prescriptions: New doxycycline hyclate 100 mg tablet 100 mg PO BID Qty: 14 0RF cephalexin 500 mg capsule 500 mg PO QID Qty: 28 0RF No Action (DME) walker Misc See Rx Instructions .ROUTE .MEDSUPPLY Qty: 1 0RF Rx Instructions: As directed methadone [Methadone Intensol] 10 mg/mL Concentrate 100 mg PO DAILY insulin aspart U-100 [Novolog FlexPen U-100 Insulin] 100 unit/mL (3 mL) insulin pen See Rx Instructions .ROUTE .COMPLEX Rx Instructions: SLIDING SCALE insulin glargine [Lantus U-100 Insulin] 100 unit/mL Solution 15 unit subcut BEDTIME Qty: 10 0RF ondansetron 4 mg tablet,disintegrating 4 mg PO TID PRN (Reason: nausea and vomiting) 5 Days Qty: 10 0RF metoclopramide HCl [Reglan] 10 mg tablet 10 mg PO Q8H PRN (Reason: nausea and vomiting) Qty: 40 0RF Rx Instructions: Take 1 tablet 1 hour prior to meals lidocaine 5 % adhesive patch,medicated 1 patch topical DAILY Qty: 15 0RF Rx Instructions: leave on most painful area for up to 12 hrs doxycycline monohydrate 100 mg capsule 100 mg PO BID 7 Days Qty: 14 0RF cephalexin 500 mg capsule 500 mg PO BID 7 Days Qty: 14 0RF gabapentin 600 mg tablet 600 mg PO TID (DME) lancets 33 gauge misc See Rx Instructions Not Applicable TID Qty: 100 Rx Instructions: As directed cholecalciferol (vitamin D3) 50 mcg (2,000 unit) tablet 50 mcg PO DAILY albuterol sulfate 90 mcg/actuation HFA aerosol inhaler 2 puff PO Q4H PRN (Reason: Respiratory Distress) lisinopril 10 mg tablet 10 mg PO DAILY omeprazole 20 mg capsule,delayed release(DR/EC) 20 mg PO DAILY metformin 1,000 mg tablet 1,000 mg PO BIDWMEAL aspirin 81 mg tablet,delayed release (DR/EC) 81 mg PO DAILY bupropion HCl 150 mg tablet sustained-release 12 hr 150 mg PO BID atorvastatin 40 mg tablet 40 mg PO DAILY Referrals: Hawk Fischer MD [Physician] - (Recurrent abscess left shoulder)
[2023-06-25 18:37] VITALS: BP 167/55; PULSE 64; RESP 18; O2SAT 98
[2023-06-25 18:38] LABS: Glucose, Whole Blood 41 mg/dL (60-115)
--- NOTE | 2023-06-25 18:40 | PC.NURSE ---
POC BGL 41 in triage. A and o x 4. Skin p/w/d. Speech clear and congruent. VSS. Pt given ORowdy and suad yusufers.
[2023-06-25 18:53] LABS: Glucose, Whole Blood 47 mg/dL (60-115)
[2023-06-25] MEDS: Doxycycline Monohydrate 100 MG CAPSULE PO (19:45)
[2023-06-25] MEDS: cephALEXin 500 MG CAPSULE PO (19:46)
[2023-06-25 19:47] LABS: Glucose, Whole Blood 88 mg/dL (60-115)
[2023-06-25 20:37] LABS: Glucose, Whole Blood 138 mg/dL (60-115)
[2023-06-25 21:15] VITALS: BP 138/52; PULSE 59; RESP 18; TEMP 36.9; O2SAT 100
== END 2023-06-25 21:15 | disposition home or self-care (01) ==
PROVIDERS: Emergency Provider Internal Medicine; PCP Internal Medicine
DX: L02.212 Cutaneous abscess of back [any part, except buttock and flank] (principal); E11.649 Type 2 diabetes mellitus with hypoglycemia without coma; M54.50 Low back pain, unspecified; M25.552 Pain in left hip; F17.210 Nicotine dependence, cigarettes, uncomplicated; Z79.4 Long term (current) use of insulin; Z79.899 Other long term (current) drug therapy; Z71.6 Tobacco abuse counseling
CPT/HCPCS: 73502; 82947; 99283; 99284

== ENCOUNTER 2023-09-11 11:54 | Outpatient (REF) | payer MEDICARE, MEDICAID, SELFPAY ==
--- NOTE | ~2023-09-11 | XR_ITS ---
EXAMINATION: XR SHOULDER, LEFT CLINICAL INFORMATION: Pain and unspecified shoulder. COMPARISON: 03/01/2023 TECHNIQUE: 3 views of the left shoulder. FINDINGS: The bones are diffusely demineralized. Redemonstration of advanced erosive changes and sclerosis with deformity along the superomedial aspect of the humeral head and glenoid. Redemonstration of curvilinear dense ossification, possibly heterotopic ossification, along the anterior inferior glenoid and projecting inferiorly from the coracoid. XR/XR shoulder LT min 2V IMPRESSION: Continued worsening of advanced erosive deformity of the left glenohumeral joint. Correlation with clinical exam and history recommended to determine further management including possible additional imaging with MRI. Differential considerations include infectious/inflammatory process/septic arthritis/osteomyelitis versus other pathology. MRI is recommended for further evaluation.
== END 2023-09-11 11:55 | disposition home or self-care (01) ==
LOC: HO.HOSX 11:54
PROVIDERS: PCP Internal Medicine; Visit Provider Orthopaedic Surgery
DX: M25.512 Pain in left shoulder (principal); M86.9 Osteomyelitis, unspecified; E11.69 Type 2 diabetes mellitus with other specified complication
CPT/HCPCS: 73030; 99212

== ENCOUNTER 2023-09-11 11:54 | Outpatient (AMB) | payer MEDICARE, MEDICAID, SELFPAY ==
--- NOTE | 2023-09-11 11:59 | A.OFFVIS_ITS ---
Intake Intake Visit Reasons: OV-left shoulder pain/swelling-discuss surgery? Allergies No Known Allergies Allergy (Verified 06/25/23 15:25) HPI OV-left shoulder pain/swelling-discuss surgery? HPI Details This is a 63-year-old woman with inability to abduct her left shoulder and with pain. She describes a history of left shoulder surgery in [place] She is unsure what the surgery was and exactly when it was. She does not know if she had an infection. She does have a scar over the anterior biceps of the left arm Hx of Osteomyelitis. Records from [facility] were obtained but included little additional information about the left shoulder. Left arm Intramuscular Abcess that was drained with them 03/25/2022 but patient reports that this was drained multiple other times at unknown locations. FORMERLY [facility] Medical History Diabetic osteomyelitis Below-knee amputation of right lower extremity Osteomyelitis of ankle Charcot foot due to diabetes mellitus Acute hyperglycemia Cellulitis Gastroenteritis Gastritis Constipation Diabetic foot ulcer New onset of congestive heart failure DKA (diabetic ketoacidoses) COVID-19 Dyslipidemia Glaucoma Pulmonary emboli Depression Chronic prescription opiate use Diabetes mellitus Pulmonary nodule Tobacco dependence COPD (chronic obstructive pulmonary disease) Surgical History History of below-knee amputation of right lower extremity (01/13/22) Cataract extraction status, right eye Cataract extraction status, left eye Hx of cholecystectomy Family History Other CVA (cerebral vascular accident) Social History Household Members: Spouse Housing: Apartment Housing Other:: hotel Do you presently have visiting nurse or other home services: No Unable to assess alcohol history related to: Unknown Alcohol intake: never Comment: refused telesitter Patient Tobacco Use Status: Current everyday Tobacco user Tobacco use type: Cigarette Cigarette Packs Per Day: 0.5 Cigarettes Per Day: 5 Years Smoked: 45 e-Cigarette/Vaping Use: Currently Using Second Hand Smoke Exposure: No Substance Use Type: Heroin Advance Directives Date on File: 01/12/22 service: No (hx on methadone) Current occupational status: disabled Review of Systems Const Reports body aches, Reports fatigue and Reports night sweats Endo Reports fatigue Physical Exam Const General: cooperative, healthy appearing, no acute distress, well developed and alert HEENT Head: Yes normal to inspection, Yes normocephalic and Yes atraumatic Mouth: moist mucous membranes Eyes General: appearance normal, both eyes and all related structures EOM: EOMs intact bilaterally Chest Other: no audible wheezing. Resp Other: No audible wheezing Effort & Inspection: normal respiratory effort Back/Spine/Pelvis Cervical Spine: normal cervical lordosis Skin General skin exam: no rashes or lesions noted Neuro General: no focal motor deficits Extrem Other: left arm with deltopectoral incision with jose purulent discharge Psych Appearance: grossly normal and well kempt Mental Status: mental status grossly normal Speech and movement: Normal speech and movement present Affect: normal affect Attitude: cooperative Results Reviewed Results Reviewed: I personally reviewed relevant radiographs. chronic erosive deformity of left glenohumeral joint. Assessment & Plan Assessment & Plan (1) Diabetic osteomyelitis: Code(s): E11.69 - Type 2 diabetes mellitus with other specified complication; M86.9 - Osteomyelitis, unspecified Plan: (2) Osteomyelitis of left shoulder: Code(s): M86.9 - Osteomyelitis, unspecified Plan: This is a 63 old osteomyelitis left proximal. She draining and appearing shoulder. Poor historian appears that to 2 years ago she infected left shoulder. This was treated debridement. Comes in today with purulent discharge and minimal pain. Radiographs reveal destruction of the proximal humerus. She has a draining wound I recommend debridement of the left shoulder. This includes deep debridement of the bone in the glenoid in the hopes of eradicating bony infection. She will need IV antibiotics subsequently. She will also need to cleared for surgery by her PCP. I discussed this with her. She expressed understanding proceed forward accordingly. Orders: Orders XR shoulder LT min 2V Today M25.519 - Pain in unspecified shoulder Quality Reporting (2019) Adult ([facility] /[birth year]) Smoking risk assessment performed?: Yes Patient Tobacco Use Status: Current everyday Tobacco user Coding Level of Care Code Est Pt Level 4 (64650) Diagnoses Diabetic osteomyelitis E11.69; M86.9 Osteomyelitis of left shoulder M86.9
== END 2023-09-11 12:57 | disposition home or self-care (01) ==
PROVIDERS: PCP Internal Medicine; Visit Provider Orthopaedic Surgery
DX: M86.9 Osteomyelitis, unspecified (principal); E11.69 Type 2 diabetes mellitus with other specified complication
CPT/HCPCS: 99214

== ENCOUNTER → 2023-10-13 | Outpatient (BNV) | payer MEDICARE, MEDICAID, SELFPAY | PROVIDERS: PCP Internal Medicine; Visit Provider Orthopaedic Surgery | DX: M86.9 Osteomyelitis, unspecified (principal) | CPT/HCPCS: 11044; 23035; 99024; 99499 ==

== ENCOUNTER → 2023-10-13 | Outpatient (BNV) | payer MEDICARE, MEDICAID, SELFPAY | PROVIDERS: PCP Internal Medicine; Visit Provider Physician Assistant | DX: M86.9 Osteomyelitis, unspecified (principal); E11.69 Type 2 diabetes mellitus with other specified complication | CPT/HCPCS: 99221; 99499 ==

== ENCOUNTER 2023-10-14 10:28 | Inpatient (IN) | payer MEDICARE, MEDICAID, SELFPAY ==
--- NOTE | 2023-09-25 15:08 | HO.ANESPROP2 ---
Documented by User: Natalee Felix NP 10/12/23 11:39 HPI - Anesthesia Eval Consult details Narrative: 63yo F for Left I&D of the Shoulder, 10/14/23 Methadone daily Medically cleared PMFSH Active Problems Active Problems: All Active Problems (Updated 09/11/23 @ 15:12 by Kendrick Richter MD) Osteomyelitis of left shoulder (Acute) Diabetic osteomyelitis (Acute) PAD (peripheral artery disease) (Acute) Depression (Acute) Pulmonary nodule (Chronic) Tobacco dependence (Acute) COPD (chronic obstructive pulmonary disease) (Acute) Past Medical History Medical History Diabetic osteomyelitis Below-knee amputation of right lower extremity Osteomyelitis of ankle Charcot foot due to diabetes mellitus Acute hyperglycemia Cellulitis Gastroenteritis Gastritis Constipation Diabetic foot ulcer New onset of congestive heart failure DKA (diabetic ketoacidoses) COVID-19 Dyslipidemia Glaucoma Pulmonary emboli Depression Chronic prescription opiate use Diabetes mellitus Pulmonary nodule Tobacco dependence COPD (chronic obstructive pulmonary disease) Family History Family History Other CVA (cerebral vascular accident) Surgical History Surgical History History of below-knee amputation of right lower extremity (01/13/22) Cataract extraction status, right eye Cataract extraction status, left eye Hx of cholecystectomy History of Problems with Anesthesia: No Social History Social History Household Members: Spouse Housing: Apartment Housing Other:: hotel Do you presently have visiting nurse or other home services: No Unable to assess alcohol history related to: Unknown Alcohol intake: never Comment: refused telesitter Patient Tobacco Use Status: Current everyday Tobacco user Tobacco use type: Cigarette Cigarette Packs Per Day: 0.5 Cigarettes Per Day: 5 Years Smoked: 45 e-Cigarette/Vaping Use: Currently Using Second Hand Smoke Exposure: No Substance Use Type: Heroin Are you DNR?: No Advance Directives Date on File: 01/12/22 service: No (hx on methadone) Current occupational status: disabled Meds Allergies Allergy/AdvReac Type Severity Reaction Status Date / Time No Known Allergies Allergy Verified 10/13/23 14:13 Home Medications ?Medication ?Instructions ?Recorded ?Confirmed ?Last Taken ?Type albuterol sulfate 90 mcg/actuation 2 puff PO Q4H PRN Respiratory 04/24/20 10/13/23 10/12/23 History aerosol inhaler Distress aspirin 81 mg tablet,delayed 81 mg PO DAILY 04/24/20 10/13/23 10/11/23 History release atorvastatin 40 mg tablet 40 mg PO DAILY 04/24/20 10/13/23 10/12/23 History bupropion HCl 150 mg tablet,12 hr 150 mg PO BID 04/24/20 10/13/23 10/12/23 History sustained-release lancets 33 gauge #100 ea 04/24/20 10/13/23 10/12/23 History lisinopril 10 mg tablet 10 mg PO DAILY 04/24/20 10/13/23 10/12/23 History metformin 1,000 mg tablet 1,000 mg PO BIDWMEAL 04/24/20 10/13/23 10/12/23 History omeprazole 20 mg capsule,delayed 20 mg PO DAILY 04/24/20 10/13/23 10/12/23 History release gabapentin 600 mg tablet 600 mg PO TID 05/03/20 10/13/23 10/12/23 History methadone 10 mg/mL oral 100 mg PO DAILY 05/28/20 10/13/23 10/12/23 History concentrate (Methadone Intensol) insulin aspart U-100 100 unit/mL See Rx Instructions .Route .COMPLEX 12/26/20 10/13/23 10/12/23 History (3 mL) subcutaneous pen (Novolog FlexPen U-100 Insulin aspart) Exam Pertinent Lab Results Pertinent Lab Results: Laboratory Tests 06/09/23 18:51 WBC 11.8 H Hgb 9.5 L Hct 31.0 L Plt Count 465 H Sodium 139 Potassium 4.7 Chloride 103 Carbon Dioxide 27 BUN 16 Creatinine 1.00 Narrative Narrative: EKG 02/2023 Vent. Rate : 062 BPM Atrial Rate : 062 BPM P-R Int : 144 ms QRS Dur : 088 ms QT Int : 460 ms P-R-T Axes : 055 004 019 degrees QTc Int : 466 ms Normal sinus rhythm Normal ECG When compared with ECG of 04-JUN-2021 17:44, No significant change was found ECHO 2020 Conclusions: - 1. Normal LV systolic function with mild LVH with pseudonormal filling pattern 2. Mild to moderate left atrial enlargement 3. Mild mitral regurgitation 4. Mildly elevated right ventricular systolic pressure 5. No pericardial effusion Assessment and Plan Assessment Anesthesia Assessment: Chart Reviewed Final Anesthetic Review History of Problems with Anesthesia: No Documented by User: Ajit Currie MD 10/13/23 15:08 [facility] Past Medical History Medical History Diabetic osteomyelitis Below-knee amputation of right lower extremity Osteomyelitis of ankle Charcot foot due to diabetes mellitus Acute hyperglycemia Cellulitis Gastroenteritis Gastritis Constipation Diabetic foot ulcer New onset of congestive heart failure DKA (diabetic ketoacidoses) COVID-19 Dyslipidemia Glaucoma Pulmonary emboli Depression Chronic prescription opiate use Diabetes mellitus Pulmonary nodule Tobacco dependence COPD (chronic obstructive pulmonary disease) Family History Family History Other CVA (cerebral vascular accident) Family history of problems with anesthesia: No Surgical History Surgical History History of below-knee amputation of right lower extremity (01/13/22) Cataract extraction status, right eye Cataract extraction status, left eye Hx of cholecystectomy Social History Social History Household Members: Spouse Housing: Apartment Housing Other:: hotel Do you presently have visiting nurse or other home services: No Unable to assess alcohol history related to: Unknown Alcohol intake: never Comment: refused telesitter Patient Tobacco Use Status: Current everyday Tobacco user Tobacco use type: Cigarette Cigarette Packs Per Day: 0.5 Cigarettes Per Day: 5 Years Smoked: 45 e-Cigarette/Vaping Use: Currently Using Second Hand Smoke Exposure: No Substance Use Type: Heroin Are you DNR?: No Advance Directives Date on File: 01/12/22 service: No (hx on methadone) Current occupational status: disabled Meds Allergies Allergy/AdvReac Type Severity Reaction Status Date / Time No Known Allergies Allergy Verified 10/13/23 14:13 Home Medications ?Medication ?Instructions ?Recorded ?Confirmed ?Last Taken ?Type albuterol sulfate 90 mcg/actuation 2 puff PO Q4H PRN Respiratory 04/24/20 10/13/23 10/12/23 History aerosol inhaler Distress aspirin 81 mg tablet,delayed 81 mg PO DAILY 04/24/20 10/13/23 10/11/23 History release atorvastatin 40 mg tablet 40 mg PO DAILY 04/24/20 10/13/23 10/12/23 History bupropion HCl 150 mg tablet,12 hr 150 mg PO BID 04/24/20 10/13/23 10/12/23 History sustained-release lancets 33 gauge #100 ea 04/24/20 10/13/23 10/12/23 History lisinopril 10 mg tablet 10 mg PO DAILY 04/24/20 10/13/23 10/12/23 History metformin 1,000 mg tablet 1,000 mg PO BIDWMEAL 04/24/20 10/13/23 10/12/23 History omeprazole 20 mg capsule,delayed 20 mg PO DAILY 04/24/20 10/13/23 10/12/23 History release gabapentin 600 mg tablet 600 mg PO TID 05/03/20 10/13/23 10/12/23 History methadone 10 mg/mL oral 100 mg PO DAILY 05/28/20 10/13/23 10/12/23 History concentrate (Methadone Intensol) insulin aspart U-100 100 unit/mL See Rx Instructions .Route .COMPLEX 12/26/20 10/13/23 10/12/23 History (3 mL) subcutaneous pen (Novolog FlexPen U-100 Insulin aspart) Exam Airway Mallampati Class: II TM Dist: <=3cm Neck ROM: Full Denture: Upper and Lower Loose/Missing/Broken Teeth: No Heart: rrr Lungs: cta b/l Assessment and Plan Assessment Anesthesia Assessment: Anesthesia Plan Discussed and Smoking Cess. Discussed Final Anesthetic Review Family History of Problems with Anesthesia: No NPO: Yes ASA Class: III Final Preanesthetic Review: No Changes in Pt Med Stat, Meds/Allgs Chart Reviewed, Consent Obtained/Reviewed and Anes Risks/Benef Reviewed Patient Risk: Intermediate Procedure Risk: Low Anesthetic Plan Anesthetic Plan: GA Disposition: Standard PACU
[2023-10-13] VITALS (11 sets, daily range): BP systolic 115–183; BP diastolic 39–99; PULSE 49–67; RESP 13–20; TEMP 36–36.4; O2SAT 95–100; BMI 33.3
--- NOTE | 2023-10-13 13:59 | MHC.SHP ---
Pre-Procedural Eval Section A - 24 Hr Update-Section A only Date of Service: 10/13/23 The patient is an INPATIENT: No Changes since office visit: No Cold of Flu in the past 2 weeks, No New Medical Problems, No Changes in Medication and No Patient answered all questions The patient has been examined within 24 hours of the surgical procedure. The History & Physical has been completed within 30 days and I have reviewed it.: Yes Section B - Complete if H&P > 30 days Chief Complaint: Osteomyelitis, unspecified Allergies: Allergies Allergy/AdvReac Type Severity Reaction Status Date / Time No Known Allergies Allergy Verified 06/25/23 15:25 Plan I have reviewed the history and physical and performed a pertinent physical examination on my patient. No changes have occurred unless specified. Time Spent With Patient Time: Total time managing care of this patient today ____ minutes.
[2023-10-13] MEDS: Lactated Ringers 1,000 ML 100 ML IVCONT ×2 (14:33→18:52)
[2023-10-13 16:43] LABS: Glucose, Whole Blood 144 mg/dL (60-115)
[2023-10-13] MEDS: HYDROmorphone HCl 0.5 MG/0.5 ML SYRINGE IVPUSH (16:45)
--- NOTE | 2023-10-13 16:49 | PM.OP ---
Brief Operative Note Date of Service: 10/13/23 Pre-op diagnosis: left shoulder abcess with bony involvement, likely osteomyelitis Post-op diagnosis: same Procedure: Incision and debridement left shoulder Implants: none Surgeon: Kendrick Richter MD Anesthesia: GLMA Was an Machine Tool Electrician used for this Procedure?: No Estimated blood loss (mL): 50 IV fluids (mL): 800 Pathology: other Condition: stable Disposition: PACU
--- NOTE | 2023-10-13 17:25 | P.OP_ITS ---
Operative Note Operative Note Date of Service: 10/13/23 Narrative: Date of Service: 10/13/23 Pre-op diagnosis: left shoulder abcess with bony involvement, likely osteomyelitis Post-op diagnosis: same Procedure: Incision and debridement left shoulder Implants: none Surgeon: Kendrick Richter MD Anesthesia: GLMA Was an Slide Machine Tender used for this Procedure?: No Estimated blood loss (mL): 50 IV fluids (mL): 800 Pathology: other Condition: stable Disposition: PACU Patient was brought to the operating room and placed supine on the surgical table. She was prepped and draped in standard sterile fashion and a time out was called to identify proper site, proper procedure and IV antibiotics per weight were held. I began by opening up the open and chronic draining wound approximately 3 cm proximally. Cultures were taken and IV antibiotics were started. I gently debrided down through the fibrous tissue and there was a open joint capsule and the wound travel deep into the shoulder joint. I debrided this and suctioned out fibrinous/necrotic material with minimal purulence. The bone had been infected for some time with loss of a portion of the femoral head. At this point however there was no obvious deep in active infection. I debrided with a curette and a rongeur and then copiously irrigated with pulse lavage. A drain was placed and the capsule was closed. Nylon was used to close the skin and sterile dressings were applied. Patient was extubated brought to recovery room stable condition there were no known complications.
[2023-10-13] MEDS: 0.9 % Sodium Chloride Flush 3 ML SYRINGE IVFLUSH (18:44)
[2023-10-13] MEDS: vancomycin/NS 2,000 MG/500 ML PLAST..BAG 250 MG IV (19:05)
--- NOTE | 2023-10-13 19:12 | PC.NURSE ---
pt up to floor by pacu RNs, pt drowsy upon arrival, wakes to light pain, follows simple commands while awake. DAMARIS drain emptied, sanguinous fluid - see I+O. VSS, LR started per SEP. Handoff report given to overnight RN.
[2023-10-13 19:15] LABS: Creatinine Clr Calc Pharmacy 46.6; Estimated Glomerular Filt Rate 51
[2023-10-13 19:17] LABS: Vancomycin Trough < 2.0 mcg/mL (10.0-20.0)
--- NOTE | 2023-10-13 19:46 | PHA.MEDREC ---
Pharmacy Consult ? Medication Reconciliation Pharmacy has reviewed the medication reconciliation done by nursing staff. Also spoke to patient, she said the only insulin she's taking is tresiba 20 units at bedtime.
[2023-10-13 19:57] LABS: Glucose, Whole Blood 152 mg/dL (60-115)
--- NOTE | 2023-10-13 20:03 | P.CONHOSP_ITS ---
History of Present Illness Data of Consult Service Date: 10/13/23 Requesting physician: Kendrick Richter Primary Care Provider: Kevon Herring MD HPI Reason for consult: medical management 63-year-old female with history of insulin-dependent type 2 diabetes, COPD, PAD s/p R BKA, history of opiate use disorder on methadone, GERD, hypertension admitted to orthopedic surgery for management of left shoulder abscess with osteomyelitis s/p I&D with consult placed to hospitalist service for medical management. The patient reports remote history of polysubstance abuse but has not used in years. She is compliant with methadone. Denies any alcohol use, ongoing illicit drug use. She has a current 0.5 pack per day cigarette smoker. She has no complaints at this time. She is noted to have a bandage on the stump of the right lower extremity. She reports she fell accidentally earlier today and injured the area. Denies any pain or drainage. No fevers. Review of Systems 2 Review of Systems: General: No fevers, malaise, unintentional weight loss HEENT: No blurred vision, diplopia. No sore throat, nasal congestion, rhinorrhea, sinus pain, ear pain Cardiovascular: No chest pain, palpitations, or leg edema Respiratory: No shortness of breath, wheezing, cough GI: No abdominal pain, nausea, vomiting, diarrhea, constipation, melena, hematochezia : No dysuria, hematuria, increased urinary frequency, decreased urinary output MSK: No myalgia, back pain Neuro: No headaches, weakness, paresthesias Skin: No rashes or lesions [facility] Medical History Diabetic osteomyelitis Below-knee amputation of right lower extremity Osteomyelitis of ankle Charcot foot due to diabetes mellitus Acute hyperglycemia Cellulitis Gastroenteritis Gastritis Constipation Diabetic foot ulcer New onset of congestive heart failure DKA (diabetic ketoacidoses) COVID-19 Dyslipidemia Glaucoma Pulmonary emboli Depression Chronic prescription opiate use Diabetes mellitus Pulmonary nodule Tobacco dependence COPD (chronic obstructive pulmonary disease) Family History Other CVA (cerebral vascular accident) Surgical History History of below-knee amputation of right lower extremity (01/13/22) Cataract extraction status, right eye Cataract extraction status, left eye Hx of cholecystectomy Social History Household Members: Spouse Housing: Apartment Housing Other:: hotel Do you presently have visiting nurse or other home services: Yes (VNA services) Unable to assess alcohol history related to: Unknown Alcohol intake: never Comment: refused telesitter Patient Tobacco Use Status: Current everyday Tobacco user Tobacco use type: Cigarette Cigarette Packs Per Day: 0.5 Cigarettes Per Day: 5 Years Smoked: 45 e-Cigarette/Vaping Use: Currently Using Second Hand Smoke Exposure: No Substance Use Type: Former Substance User Advance Directives Date on File: 01/12/22 service: No (hx on methadone) Current occupational status: disabled Meds Allergies Allergy/AdvReac Type Severity Reaction Status Date / Time No Known Allergies Allergy Verified 10/13/23 14:13 Active Medications: Current Medications Acetaminophen (Acetaminophen 325 Mg Tablet) 325 mg PO Q4H PRN PRN Reason: Pain, Mild (Pain Scale 1-3) Albuterol Sulfate (Albuterol Sulfate 90 Mcg 8 Gm Inhaler) 2 puff INHALE Q4H PRN PRN Reason: Respiratory Distress Bupropion HCl (Bupropion Hcl Xl 300 Mg Tab.Er.24h) 300 mg PO DAILY PRECIOUS Gabapentin (Gabapentin 600 Mg Tablet) 600 mg PO TID PRECIOUS Glucose (Glucose Gel 15 Gm Gel..Gram.) 15 gm PO Q15M PRN; Protocol PRN Reason: per Hypoglycemia Standing Ord. Hydromorphone HCl (Hydromorphone Hcl 0.5 Mg/0.5 Ml Syringe) 0.5 mg IVPUSH Q5M PRN; Protocol PRN Reason: Pain, Severe (Pain Scale 7-10) Stop: 10/13/23 22:48 Last Admin: 10/13/23 16:45 Dose: 0.5 mg Lactated Ringer's (Lr) 1,000 mls @ 100 mls/hr IVCONT .Q10H PRECIOUS Stop: 10/14/23 15:44 Last Infusion: 10/13/23 19:07 Dose: 0 mls/hr Vancomycin HCl (Vancomycin/Ns) 2,000 mg in 500 mls @ 250 mls/hr IV ONCE ONE Stop: 10/13/23 20:59 Last Admin: 10/13/23 19:05 Dose: 250 mls/hr Vancomycin HCl 750 mg/ Sodium (Chloride) 265 mls @ 265 mls/hr IV Q12H [facility] Dextrose (D10) 250 mls @ 750 mls/hr IV Q15M PRN; Protocol PRN Reason: per Hypoglycemia Standing Ord. Insulin Human Lispro (Insulin Lispro 100 Unit/Ml 3 Ml Vial) 0 unit SUBCUT QIDACHS [facility]; Protocol Methadone HCl (Methadone Hcl 20 Mg/2 Ml Oral.Conc) 100 mg PO DAILY [facility] Metoclopramide HCl (Metoclopramide Hcl 10 Mg Tablet) 10 mg PO Q8H PRN PRN Reason: nausea and vomiting Omeprazole (Omeprazole 20 Mg Capsule.Dr) 20 mg PO DAILY@0630 [facility] Ondansetron HCl (Ondansetron Hcl 4 Mg/2 Ml Vial) 4 mg IVPUSH ONCE PRN PRN Reason: Nausea and Vomiting Stop: 10/13/23 22:48 Ondansetron HCl (Ondansetron Hcl 4 Mg/2 Ml Vial) 4 mg IVPUSH ONCE PRN PRN Reason: Nausea and Vomiting Stop: 10/13/23 22:55 Oxycodone HCl (Oxycodone Hcl Immed Release 5 Mg Tablet) 10 mg PO ONCE PRN PRN Reason: Pain, Severe (Pain Scale 7-10) Stop: 10/13/23 22:48 Oxycodone HCl (Oxycodone Hcl Immed Release 5 Mg Tablet) 10 mg PO Q4H PRN PRN Reason: Pain, Moderate(Pain Scale 4-6) Pharmacy Consult (Consult Rx Vancomycin Dosing) 1 each MISCELLANE DAILY PRN PRN Reason: Consult order Sodium Chloride (0.9 % Sodium Chloride Flush 3 Ml Syringe) [facility] Last Admin: 10/13/23 18:44 Dose: 3 ml Home Medications ?Medication ?Instructions ?Recorded ?Confirmed ?Last Taken ?Type albuterol sulfate 90 mcg/actuation 2 puff PO Q4H PRN Respiratory 04/24/20 10/13/23 10/12/23 History aerosol inhaler Distress aspirin 81 mg tablet,delayed 81 mg PO DAILY 04/24/20 10/13/23 10/11/23 History release atorvastatin 40 mg tablet 40 mg PO DAILY 04/24/20 10/13/23 10/12/23 History bupropion HCl 150 mg tablet,12 hr 150 mg PO BID 04/24/20 10/13/23 10/12/23 History sustained-release lancets 33 gauge #100 ea 04/24/20 10/13/23 10/12/23 History lisinopril 10 mg tablet 10 mg PO DAILY 04/24/20 10/13/23 10/12/23 History metformin 1,000 mg tablet 1,000 mg PO BIDWMEAL 04/24/20 10/13/23 10/12/23 History omeprazole 20 mg capsule,delayed 20 mg PO DAILY 04/24/20 10/13/23 10/12/23 History release gabapentin 600 mg tablet 600 mg PO TID 05/03/20 10/13/23 10/12/23 History methadone 10 mg/mL oral 100 mg PO DAILY 05/28/20 10/13/23 10/12/23 History concentrate (Methadone Intensol) insulin degludec 100 unit/mL (3 20 unit subcut BEDTIME 10/13/23 10/13/23 10/11/23 History mL) subcutaneous pen (Tresiba FlexTouch U-100 insulin) Physical Exam 2 Vital Signs and Narrative: Vital Signs: Last Vital Signs Temp 96.8 F 10/13/23 19:42 Pulse 60 10/13/23 19:42 Resp 16 10/13/23 19:42 BP 178/66 H 10/13/23 19:42 Pulse Ox 98 10/13/23 19:42 O2 Del Method Nasal Cannula 10/13/23 19:42 O2 Flow Rate 2 10/13/23 19:42 BMI result Body Mass Index 33.3 Constitutional - Awake and Alert, No apparent distress Eyes - PERRLA, EOMI Cardiovascular - S1S2, RRR, No edema Respiratory - Normal lung expansion, Normal respiratory effort, No respiratory distress, CTA bilaterally Gastrointestinal - NT / ND; +BS; No rebound or guarding Extremities - no calf tenderness bilaterally, no swelling Musculoskeletal - post op bandage in place with drain in place Skin - Warm/Dry. Shallow ulcerations of the LLE stump. No surrounding erythema, warmth, or purulent drainage Neurological - Alert & oriented x3, CN II-XII in tact, 5/5 strength BUE and BLE Psychological - Appropriate affect Results Labs 10/13/23 18:40 Labs: Laboratory Results - last 24 hr 10/13/23 10/13/23 10/13/23 14:21 18:40 19:49 Estim Creat Clear Calc 46.6 Estimated GFR 51 POC Glucose 144 H 152 H Vancomycin Trough < 2.0 L Assessment and Plan (1) Osteomyelitis of left shoulder: Status: Acute (2) Diabetic osteomyelitis: Status: Acute Plan 63-year-old female with history of insulin-dependent type 2 diabetes, COPD, PAD s/p R BKA, history of opiate use disorder on methadone, GERD, hypertension admitted to orthopedic surgery for management of left shoulder abscess with osteomyelitis s/p I&D with consult placed to hospitalist service for medical management. #L Shoulder abscess and osteomyelitis -continue vanco. If concern for osteomyelitis, would recommend ID consult for abx recs and duration -plan per ortho surgery # insulin-dependent type 2 diabetes -dose adjusted basal insulin, Admelog on sliding scale. Hold metformin -POC glucose, diabetic diet # hypertension -resume lisinopril a.m. # COPD -no acute exacerbation -albuterol p.r.n. # history opioid use disorder maintained on methadone -continue methadone # GERD -continue PPI Thank you for allowing me to participate in this consult. Signing off at this time. Please do not hesitate to call for further questions or for any acute medical issues
[2023-10-13] MEDS: Insulin Glargine,Hum.rec.anlog 100 UNIT/ML 10 ML VIAL 10 UNIT SUBCUT (20:24)
[2023-10-13] MEDS: Insulin Lispro 100 UNIT/ML 3 ML VIAL SUBCUT (20:24)
[2023-10-13] MEDS: Gabapentin 600 MG TABLET PO (20:24)
[2023-10-14 03:06] VITALS: BP 170/81; PULSE 65; RESP 16; TEMP 36.9; O2SAT 98
[2023-10-14] MEDS: oxyCODONE HCl Immed Release 5 MG TABLET 10 MG PO ×3 (03:09→22:56)
[2023-10-14] MEDS: Lactated Ringers 1,000 ML 100 ML IVCONT ×2 (04:03→15:11)
[2023-10-14] MEDS: Gabapentin 600 MG TABLET PO ×3 (07:17→20:44)
[2023-10-14] MEDS: Acetaminophen 325 MG TABLET PO (07:17)
[2023-10-14] MEDS: buPROPion HCl XL 300 MG TAB.ER.24H PO (07:17)
[2023-10-14] MEDS: Omeprazole 20 MG CAPSULE.DR PO (07:17)
[2023-10-14 07:31] LABS: Creatinine Clr Calc Pharmacy 61.1; Estimated Glomerular Filt Rate > 60
[2023-10-14 07:34] LABS: Glucose, Whole Blood 62 mg/dL (60-115)
[2023-10-14 07:47] VITALS: BP 176/77; PULSE 61; RESP 17; TEMP 36.8; O2SAT 98
--- NOTE | 2023-10-14 09:40 | PM.PNORT ---
Subjective Subjective Date of Service: 10/14/23 Interval history: POD1 s/p left shoulder I&D Patient is resting in bed No overnight events Reports pain No additional complaints Physical Exam Vital Signs: Vital Signs: Last Vital Signs Temp 98.2 F 10/14/23 07:47 Pulse 61 10/14/23 07:47 Resp 17 10/14/23 07:47 BP 176/77 H 10/14/23 07:47 Pulse Ox 98 10/14/23 07:47 O2 Del Method Nasal Cannula 10/14/23 07:47 O2 Flow Rate 1.0 10/14/23 07:47 BMI result Body Mass Index 33.3 Const: General: cooperative, healthy appearing and no acute distress Resp: Effort & Inspection: normal respiratory effort and able to speak in complete sentences Cardio: Rate: regular rate Peripheral pulses: Peripheral pulses 2+ throughout GI: Palpation (GI): Soft to palpation Skin: Lesions: no lesions Rashes: no rashes Extrem: Other: left shoulder drain is intact. Bandages are c/d/i. Able to flex and extend the wrist. Sensation intact. Capillary refill is brisk. Procedures Date of Service Date of Service: 10/14/23 Progress Note: A&P Assessment and plan (1) Osteomyelitis of left shoulder: Status: Acute Plan Continue pain mgmnt Plan for drain removal tomorrow Sling for comfort Keep dressings c/d/i Dispo planning-Pending ID consult for likely PICC line, pain mgmnt Time Spent With Patient Time: Total time managing care of this patient today ____ minutes. Quality Stroke Does the patient have a stroke diagnosis?: No VTE Prior VTE?: No VTE Risk Level:: Medical - moderate - high VTE Device Contraindication: N/A - Device Ordered VTE Drug Contraindication: N/A - Med Ordered
[2023-10-14] MEDS: vancomycin HCL 750 MG in 0.9 % Sodium Chloride 250 ML 265 MG IV (09:43)
[2023-10-14 11:11] LABS: Glucose, Whole Blood 169 mg/dL (60-115)
[2023-10-14] MEDS: Insulin Lispro 100 UNIT/ML 3 ML VIAL SUBCUT ×2 (11:44→20:45)
--- NOTE | 2023-10-14 13:10 | HO.PICC ---
PICC Line Insertion NPICC INSERTION Diagnosis: LEFT SHOULDER INFECTION Indication: AUTO WASH BUFFER ANTIBX Pertinent Labs: REVIEWED LABS Technique: Following informed consent including risks, benefits and alternatives and using sterile technique including cap and mask, sterile gown, glove and drape, the RIGHT arm was prepped and draped in the usual sterile fashion of full barrier technique with [facility]. Following completion of [place] Protocol the skin and soft tissues were anesthetized with 1% Lidocaine plain. Using ultrasound guidance, RIGHT BASILIC vein access was obtained. Over an 0.018 wire through peel-away sheath, a 4FR SINGLE POWERPICC SOLO PASV line was positioned. Catheter length is 38CM internal length, OCM external length, for a total trimmed length of 38CM. The procedure was performed in RM 272. Tip verification was performed by Zhen Berry with Bala 3CG. Tip located in SVC. Ultrasound was used to document vein patency and for needle entry. A formal ultrasound picture and cardiac rhythm strip was recorded. Vascular Review Rn has released the line for use and it is currently dressed with a StatLock, Tegaderm, and CHG disc. Verification has been performed for blood return and line patency. Arm Circumference: 38CM Equipment:[employer] POWERPICC CATHETER Catheter Type: SINGLE LUMEN PASV POWERPICC SOLO Lot #: [id number]
--- NOTE | 2023-10-14 13:45 | MHC.CM.PN ---
pt lives with who is in rehab she has [facility] that manages her lock box daily she own transport home
[2023-10-14] MEDS: 0.9 % Sodium Chloride Flush 10 ML SYRINGE 5 ML IVFLUSH (13:51)
--- NOTE | 2023-10-14 13:54 | PM.EVENT ---
Event Note Date of Service: 10/14/23 Event Note: Pt seen in follow up for htn, copd, opiate use disorder. Recommend resuming lisinopril 10mg now due to hypertension. Discontinue supplemental O2. Continue methadone. Further abx recs per ID. Thank you for allowing me to participate in this consult. Signing off at this time. Please do not hesitate to call for further questions or for any acute medical issues. Time Spent With Patient Time: Total time managing care of this patient today ____ minutes.
[2023-10-14] MEDS: lisinopriL 10 MG TABLET PO (15:11)
[2023-10-14 15:23] VITALS: BP 160/72; PULSE 56; RESP 18; TEMP 36.2; O2SAT 98
[2023-10-14 16:04] LABS: Glucose, Whole Blood 79 mg/dL (60-115)
--- NOTE | 2023-10-14 16:41 | HO.WOUND ---
Wound Consult: Initial 63yr old [place] [facility] [place] See progress notes and H&P for detailed history.? Wound consult placed for Right Knee traumatic injury after fall at home.? Patient agreeable to assessment and photo documentation.? Patient reports she was getting ready to come to hospital for scheduled I&D and fell without her prosthetic in place on her tile floor. She reports pain and tenderness. Advised to contact her prosthetic tech is wound remains longer than one week to ensure proper fit. Right BKA Site Etiology: Traumatic injury s/p fall at home ??Present on Admission Measurements: 2.5cm x 2cm x c0.2m Wound Bed: pale pink yellow wound bed - moist Drainage / Odor: creamy yellow drainage no odor noted Edges: ? irregular Heidy wound:Intact No Induration, Fluctuance or Warmth noted Pain: tender and painful to touch Goals of Treatment: ? Moisture management with Durafiber AG and Foam dressing Recommendations: 1. Turn and Reposition every 2 hours and as needed for patient comfort.? Use pillows or wedges to support off loading positions. 2. Off Load all bony prominences with use of pillows and heel boots if needed.? Apply Preventative foams where needed. ? 3. Monitor for incontinence and moisture control, use barrier creams when needed for prevention and treatment. 4. Provide adequate and supplemental nutrition.? 5.When applicable maintain blood glucose levels per Providers order. 6. Right BKA site - Cleanse with NS moist gauze, pat dry. Apply Skin prep to periwound allow to dry cut to size Durafiber AG cover with foam dressing, Change every 2-3 days. Re-consult wound care Nurse for wound deterioration or wound changes.
[2023-10-14 16:48] VITALS: O2SAT 98
--- NOTE | 2023-10-14 18:20 | HE.PHANOTE ---
RE: METHADONE DOSING Methadone dose is 130 mg, take home filled 09/30/23 - 10/14/2023 per Josee at [facility].
[2023-10-14 19:41] VITALS: BP 148/66; PULSE 62; RESP 18; TEMP 36.5; O2SAT 97
[2023-10-14 20:10] LABS: Glucose, Whole Blood 158 mg/dL (60-115)
[2023-10-14 20:45] LABS: Vancomycin Random 22.9 mcg/mL (15-20)
[2023-10-14] MEDS: Insulin Glargine,Hum.rec.anlog 100 UNIT/ML 10 ML VIAL 10 UNIT SUBCUT (20:45)
--- NOTE | 2023-10-14 20:53 | HE.PHANOTE ---
Addendum entered by Dianne Hernandes [facility] 10/14/23 21:01: chose to push back dose a little further to ensure patients level falls into therapeutic range again before giving another dose. due to this push back we are limited to when we can get a level as pharmacy will not be open after 2 doses. Will put random in for -10/15 @1200. And dose is now pushed back by 4 hours. Original Note: RE [facility] Patients level came back this evening at 22.9. Will push back dosing interval by 1 hour to allow some more time to clear and also decrease dose to 500 mg Q12H. Next level will be after 2 doses of the 500 mg, 10/15/23 @2100. Predicted AUC 448.
--- NOTE | 2023-10-14 22:45 | P.CNID_ITS ---
History of Present Illness Data of Consult Service Date: 10/14/23 Requesting physician: Kendrick Richter Primary Care Provider: Kevon Herring MD HPI Reason for consult: left shoulder abscess She presents with left shoulder discomfort ,worse over last week. She has no fever or chills at this time. She had shoulder abscess ,deep and culture taken. Review of Systems 2 Review of Systems: Yes all other systems are reviewed and are negative PMFSH Past Medical History Medical History Diabetic osteomyelitis Below-knee amputation of right lower extremity Osteomyelitis of ankle Charcot foot due to diabetes mellitus Acute hyperglycemia Cellulitis Gastroenteritis Gastritis Constipation Diabetic foot ulcer New onset of congestive heart failure DKA (diabetic ketoacidoses) COVID-19 Dyslipidemia Glaucoma Pulmonary emboli Depression Chronic prescription opiate use Diabetes mellitus Pulmonary nodule Tobacco dependence COPD (chronic obstructive pulmonary disease) Family History Family History Other CVA (cerebral vascular accident) Family history: reviewed and not pertinent Surgical History Surgical History History of below-knee amputation of right lower extremity (01/13/22) Cataract extraction status, right eye Cataract extraction status, left eye Hx of cholecystectomy Social History Social History Household Members: Spouse Housing: Apartment Housing Other:: hotel Do you presently have visiting nurse or other home services: Yes (VNA services) Unable to assess alcohol history related to: Unknown Alcohol intake: never Comment: refused telesitter Patient Tobacco Use Status: Current everyday Tobacco user Tobacco use type: Cigarette Cigarette Packs Per Day: 0.5 Cigarettes Per Day: 5 Years Smoked: 45 Smoked in Last 30 Days: Yes e-Cigarette/Vaping Use: Currently Using Patient Interested in Nicotine Replacement: No Patient Given Instructions on How to Stop Smoking: Yes Date Education Initiated: 10/13/23 Second Hand Smoke Exposure: No Use of substances other than those prescribed or required for medical reasons: Yes Substance Use Type: Former Substance User Currently Displaying Signs/Symptoms of Drug Intoxication Withdrawal: No Have you been hit, kicked, punched, or otherwise hurt by someone within the past year? If so, by whom?: No Do you feel safe in your current relationship?: Yes Is there a partner from a previous relationship who is making you feel unsafe now?: No Are you made to feel afraid or neglected: No Are you DNR?: No Advance Directives: Yes Advance Directives on File: Yes Advance Directives Date on File: 01/12/22 Do you have thoughts of harming others: None Do you have a plan to hurt others: No Plan Recently lost weight without trying: No How much weight loss: Not applicable Eating poorly because of decreased appetite: No Nutrition screen score: 0 Nutrition Risks: No Nutritional Risk Patient : No : No Poor oral hygiene: No service: No Current occupational status: disabled Meds Allergies Allergy/AdvReac Type Severity Reaction Status Date / Time No Known Allergies Allergy Verified 10/13/23 14:13 Active Medications: Current Medications Acetaminophen (Acetaminophen 325 Mg Tablet) 325 mg PO Q4H PRN PRN Reason: Pain, Mild (Pain Scale 1-3) Last Admin: 10/14/23 07:17 Dose: 325 mg Albuterol Sulfate (Albuterol Sulfate 90 Mcg 8 Gm Inhaler) 2 puff INHALE Q4H PRN PRN Reason: Respiratory Distress Bupropion HCl (Bupropion Hcl Xl 300 Mg Tab.Er.24h) 300 mg PO DAILY [facility] Last Admin: 10/14/23 07:17 Dose: 300 mg Gabapentin (Gabapentin 600 Mg Tablet) 600 mg PO TID [facility] Last Admin: 10/14/23 20:44 Dose: 600 mg Glucose (Glucose Gel 15 Gm Gel..Gram.) 15 gm PO Q15M PRN; Protocol PRN Reason: per Hypoglycemia Standing Ord. Dextrose (D10) 250 mls @ 750 mls/hr IV Q15M PRN; Protocol PRN Reason: per Hypoglycemia Standing Ord. Vancomycin HCl 500 mg/ Sodium (Chloride) 110 mls @ 110 mls/hr IV Q12H [facility] Insulin Glargine (Insulin Glargine,Hum.Rec.Anlog 100 Unit/Ml 10 Ml Vial) 10 unit SUBCUT BEDTIME [facility] Last Admin: 10/14/23 20:45 Dose: 10 unit Insulin Human Lispro (Insulin Lispro 100 Unit/Ml 3 Ml Vial) 0 unit SUBCUT QIDACHS [facility]; Protocol Last Admin: 10/14/23 20:45 Dose: 2 unit Lisinopril (Lisinopril 10 Mg Tablet) 10 mg PO DAILY [facility]; Protocol Last Admin: 10/14/23 15:11 Dose: 10 mg Methadone HCl (Methadone Hcl 20 Mg/2 Ml Oral.Conc) 130 mg PO DAILY [facility] Last Admin: 10/14/23 18:37 Dose: Not Given Metoclopramide HCl (Metoclopramide Hcl 10 Mg Tablet) 10 mg PO Q8H PRN PRN Reason: nausea and vomiting Omeprazole (Omeprazole 20 Mg Capsule.Dr) 20 mg PO DAILY@0630 [facility] Last Admin: 10/14/23 07:17 Dose: 20 mg Oxycodone HCl (Oxycodone Hcl Immed Release 5 Mg Tablet) 10 mg PO Q4H PRN PRN Reason: Pain, Moderate(Pain Scale 4-6) Last Admin: 10/14/23 07:17 Dose: 10 mg Pharmacy Consult (Consult Rx Vancomycin Dosing) 1 each MISCELLANE DAILY PRN PRN Reason: Consult order Sodium Chloride (0.9 % Sodium Chloride Flush 3 Ml Syringe) [facility] Last Admin: 10/14/23 15:13 Dose: Not Given Home Medications ?Medication ?Instructions ?Recorded ?Confirmed ?Last Taken ?Type albuterol sulfate 90 mcg/actuation 2 puff PO Q4H PRN Respiratory 04/24/20 10/13/23 10/12/23 History aerosol inhaler Distress aspirin 81 mg tablet,delayed 81 mg PO DAILY 04/24/20 10/13/23 10/11/23 History release atorvastatin 40 mg tablet 40 mg PO DAILY 04/24/20 10/13/23 10/12/23 History bupropion HCl 150 mg tablet,12 hr 150 mg PO BID 04/24/20 10/13/23 10/12/23 History sustained-release lancets 33 gauge #100 ea 04/24/20 10/13/23 10/12/23 History lisinopril 10 mg tablet 10 mg PO DAILY 04/24/20 10/13/23 10/12/23 History metformin 1,000 mg tablet 1,000 mg PO BIDWMEAL 04/24/20 10/13/23 10/12/23 History omeprazole 20 mg capsule,delayed 20 mg PO DAILY 04/24/20 10/13/23 10/12/23 History release gabapentin 600 mg tablet 600 mg PO TID 05/03/20 10/13/23 10/12/23 History methadone 10 mg/mL oral 130 mg PO DAILY 05/28/20 10/14/23 10/12/23 History concentrate (Methadone Intensol) insulin degludec 100 unit/mL (3 20 unit subcut BEDTIME 10/13/23 10/13/23 10/11/23 History mL) subcutaneous pen (Tresiba FlexTouch U-100 insulin) Physical Exam 2 Vital Signs: Vital Signs: Last Vital Signs Temp 97.7 F 10/14/23 19:41 Pulse 62 10/14/23 19:41 Resp 18 10/14/23 19:41 BP 148/66 H 10/14/23 19:41 Pulse Ox 97 10/14/23 19:41 O2 Del Method Room Air 10/14/23 19:41 O2 Flow Rate 1.0 10/14/23 07:47 BMI result Body Mass Index 33.3 Extrem: Other: shoulder wrapped Results Labs 10/14/23 06:59 Labs: BMP 10/14/23 06:59 Creatinine 0.83 Microbiology Microbiology Results: Microbiology 10/13/23 16:11 Shoulder Left Gram Stain - Final 10/13/23 16:11 Shoulder Left Routine Culture - Preliminary Staphylococcus species 10/13/23 16:11 Shoulder Left Anaerobic Culture - Preliminary Assessment and Plan (1) Osteomyelitis of left shoulder: Status: Acute (2) Diabetic osteomyelitis: Status: Acute Plan There is concern over MSSA or MRSA since staph growing She has seen me before 01/15/2022 proteus,MSSA right foot. She has right BKA . Would continue Vancomycin. Likely need six weeks IV antibiotics followed by oral.
[2023-10-14] MEDS: Melatonin 3 MG TABLET 6 MG PO (23:44)
[2023-10-15] MEDS: vancomycin HCL 500 MG in 0.9 % Sodium Chloride 100 ML 110 MG IV ×2 (01:37→13:43)
[2023-10-15] MEDS: Metoclopramide HCl 10 MG TABLET PO (01:46)
[2023-10-15] MEDS: oxyCODONE HCl Immed Release 5 MG TABLET 10 MG PO (02:34)
[2023-10-15 04:00] VITALS: BP 167/71; PULSE 67; RESP 18; TEMP 36.3; O2SAT 98
[2023-10-15 07:20] VITALS: BP 161/80; PULSE 70; RESP 16; TEMP 36.7; O2SAT 100
[2023-10-15 07:28] LABS: Estimated Glomerular Filt Rate > 60
[2023-10-15 07:28] LABS: Glucose, Whole Blood 192 mg/dL (60-115)
[2023-10-15] MEDS: methADONE HCl 20 MG/2 ML ORAL.CONC 130 MG PO (07:44)
[2023-10-15 11:01] LABS: Glucose, Whole Blood 199 mg/dL (60-115)
[2023-10-15] MEDS: 0.9 % Sodium Chloride Flush 3 ML SYRINGE IVFLUSH ×2 (11:35→17:29)
[2023-10-15] MEDS: Acetaminophen 1,000 MG/100 ML PIGGYBACK 400 MG IV ×3 (11:35→22:19)
[2023-10-15] MEDS: ondansetron HCL 4 MG/2 ML VIAL IVPUSH ×2 (11:36→17:28)
[2023-10-15] MEDS: Insulin Lispro 100 UNIT/ML 3 ML VIAL SUBCUT (11:36)
--- NOTE | 2023-10-15 13:39 | PM.PNORT ---
Subjective Subjective Date of Service: 10/15/23 Interval history: POD2 s/p left shoulder I&D Patient is resting in bed No overnight events Reports pain and nausea No additional complaints Physical Exam Vital Signs: Vital Signs: Last Vital Signs Temp 98.1 F 10/15/23 07:20 Pulse 70 10/15/23 07:20 Resp 16 10/15/23 07:20 BP 161/80 H 10/15/23 07:20 Pulse Ox 100 10/15/23 07:20 O2 Del Method Room Air 10/15/23 07:20 O2 Flow Rate 1.0 10/14/23 07:47 BMI result Body Mass Index 33.3 Const: General: cooperative, healthy appearing and no acute distress Resp: Effort & Inspection: normal respiratory effort and able to speak in complete sentences Cardio: Rate: regular rate Peripheral pulses: Peripheral pulses 2+ throughout GI: Palpation (GI): Soft to palpation Skin: Lesions: no lesions Rashes: no rashes Extrem: Other: left shoulder drain is intact. No drainage from incision. Able to flex and extend the wrist. Sensation intact. Capillary refill is brisk. Procedures Date of Service Date of Service: 10/15/23 Progress Note: A&P Assessment and plan (1) Osteomyelitis of left shoulder: Status: Acute Plan Continue pain mgmnt drain removed with 50cc blood Sling for comfort Keep dressings c/d/i ID rec 6weeks iv vanco Dispo planning-home vs rehab Time Spent With Patient Time: Total time managing care of this patient today ____ minutes. Quality Stroke Does the patient have a stroke diagnosis?: No VTE Prior VTE?: No VTE Risk Level:: Medical - moderate - high VTE Device Contraindication: N/A - Device Ordered VTE Drug Contraindication: N/A - Med Ordered
--- NOTE | 2023-10-15 13:53 | P.DS_ITS ---
DS: Providers Provider Date of Service: 10/16/23 <ELGIN Junior Last Filed: 10/15/23 13:59> Date of admission: 10/14/23 10:28 <ELGIN Junior Last Filed: 10/15/23 13:59> Primary care physician: Kevon Herring MD <ELGIN Junior Last Filed: 10/15/23 13:59> Consults: 10/13/23 18:25 Consult to Hospitalist Routine Comment: Consulting Provider: Hospitalist Reason For Exam: diabetes management 10/13/23 20:07 Consult to Wound Care Routine Reason for consultation: superficial ulceration RLE stump 10/14/23 09:19 Consult to Infectious Diseases Routine Consulting Provider: [facility] Infectious Disease Reason for consultation: left shoulder infection <ELGIN Junior Last Filed: 10/15/23 13:59> DS: Diagnosis Discharge Diagnosis (1) Osteomyelitis of left shoulder: Status: Acute <ELGIN Junior Filed: 10/15/23 13:59> DS: Summary Hospital Course Hospital Course: The patient underwent a successful Left shoulder I&D on 10/13/23 was transferred to PACU and then to the floor to recover. During their stay, their vitals were stable, afebrile at 98.1. POD 1 she had a picc line placed PICC Line Insertion NPICC INSERTION Diagnosis: LEFT SHOULDER INFECTION Indication: INTERMEDIATE ANTIBX Pertinent Labs: REVIEWED LABS Technique: Following informed consent including risks, benefits and alternatives and using sterile technique including cap and mask, sterile gown, glove and drape, the RIGHT arm was prepped and draped in the usual sterile fashion of full barrier technique with CHG. Following completion of Sullivan Protocol the skin and soft tissues were anesthetized with 1% Lidocaine plain. Using ultrasound guidance, RIGHT BASILIC vein access was obtained. Over an 0.018 wire through peel-away sheath, a 4FR SINGLE POWERPICC SOLO PASV line was positioned. Catheter length is 38CM internal length, OCM external length, for a total trimmed length of 38CM. The procedure was performed in 272. Tip verification was performed by Zhen Berry with Bala 3CG. Tip located in SVC. Ultrasound was used to document vein patency and for needle entry. A formal ultrasound picture and cardiac rhythm strip was recorded. Vascular Heating And Ventilating Worker has released the line for use and it is currently dressed with a StatLock, Tegaderm, and CHG disc. Verification has been performed for blood return and line patency. Arm Circumference: 38CM Equipment:[employer] POWERPICC CATHETER Catheter Type: SINGLE LUMEN PASV POWERPICC SOLO Lot #: [id number] ID consult: Assessment and Plan (1) Osteomyelitis of left shoulder: Status: Acute (2) Diabetic osteomyelitis: Status: Acute Plan There is concern over MSSA or MRSA since staph growing She has seen me before 01/15/2022 proteus,MSSA right foot. She has right BKA . Would continue Vancomycin. Likely need six weeks IV antibiotics followed by oral. Picc line care and Labs: * weekly CBC w diff, BUN/creatinine * Check Vanco trough levels after 4th dose * Keep Vanco trough level between 10 and 20 * Flush PICC line with 10 cc of normal saline 3 times a day Prior to discharge, her dressing was changed, incision clean dry and intact, ok to perform dry dressing changes prn. Any concerns with the dressing, please contact orthopedic office. No showering. The plan is to be discharged to [facility] Post op appt: 10/22/23 @ 2:15pm <Binta Saucedo PA-C - Last Filed: 10/15/23 13:59> Time Attestation Total time managing care of this patient today: 30 mintues. <Judy Beckham PA-C - Last Filed: 10/16/23 08:18> Discharge Coordination Time (in mins): 30 <ELGIN Fermin Last Filed: 10/16/23 08:18> Quality: Safe Use of Opioids Does Pt have an Active Cancer Diagnosis on the Problem List?: No <Binta Saucedo PA-C - Last Filed: 10/15/23 13:59> Quality: Stroke Does the patient have a stroke diagnosis?: No <Binta Saucedo PA-C - Last Filed: 10/15/23 13:59> Physical Exam Vital Signs: Vital Signs: Last Vital Signs Temp 98.1 F 10/15/23 07:20 Pulse 70 10/15/23 07:20 Resp 16 10/15/23 07:20 BP 161/80 H 10/15/23 07:20 Pulse Ox 100 10/15/23 07:20 O2 Del Method Room Air 10/15/23 07:20 O2 Flow Rate 1.0 10/14/23 07:47 BMI result Body Mass Index 33.3 <Binta Saucedo PA-C - Last Filed: 10/15/23 13:59> Const: General: cooperative, healthy appearing and no acute distress <SAMEER FerminC - Last Filed: 10/16/23 08:18> Resp: Effort & Inspection: normal respiratory effort and able to speak in complete sentences <Judy Beckham PA-C - Last Filed: 10/16/23 08:18> Cardio: Rate: regular rate <Judy Beckham PA-C - Last Filed: 10/16/23 08:18> Peripheral pulses: Peripheral pulses 2+ throughout <Judy Beckham PA-C - Last Filed: 10/16/23 08:18> GI: Palpation (GI): Soft to palpation <Judy Beckham PA-C - Last Fi led: 10/16/23 08:18> Skin: Lesions: no lesions <SAMEER FerminC - Last Filed: 10/16/23 08:18> Rashes: no rashes <Judy Beckham PA-C - Last Filed: 10/16/23 08:18> Extrem: Other: left shoulder dressing is intact with mild staining. Able to flex and extend the wrist. Sensation intact. Capillary refill is brisk. <Judy Beckham PA-C - Last Filed: 10/16/23 08:18> DS: Data Data Completed and Pending Completed studies during hospitalization [Text1]: Procedures Compression of Right Foot using Pressure Dressing (05/28/20) Detachment at Right Lower Leg, Mid, Open Approach (01/11/22) <Binta Saucedo PA-C - Last Filed: 10/15/23 13:59> Labs on day of discharge: Laboratory Results - last 24 hr 10/14/23 10/14/23 10/14/23 15:54 19:33 20:12 Creatinine Estim Creat Clear Calc Estimated GFR POC Glucose 79 158 H Random Vancomycin 22.9 H 10/15/23 10/15/23 10/15/23 06:53 07:20 10:56 Creatinine 0.86 Estim Creat Clear Calc 59.0 Estimated GFR > 60 POC Glucose 192 H 199 H Random Vancomycin Preliminary micro results at discharge 10/13/23 16:11 Routine Culture - Preliminary Shoulder Left Staphylococcus aureus Anaerobic Culture - Preliminary Culture in progress. <Binta Saucedo PA-C - Last Filed: 10/15/23 13:59> Discharge Plan Discharge Anticipated Discharge Date/Time: 10/16/23 08:16 <Binta Saucedo PA-C - Last Filed: 10/15/23 13:59> Patient Disposition: er SNF <Binta Saucedo PA-C - Last Filed: 10/15/23 13:59> Discharge Diagnosis: LT shlder I&D <Binta Saucedo PA-C - Last Filed: 10/15/23 13:59> LT shlder I&D <Judy Beckham PA-C - Last Filed: 10/16/23 08:18> Referrals: Judy Beckham PA-C [Physician Ticket Taker] - 2 Weeks (10/22/23 2:15 [facility] Orthopedic Surgeons Judy Beckham PA-C) <Binta Saucedo PA-C - Last Filed: 10/15/23 13:59> Discharge Medications: New hydrocodone-acetaminophen 5-325 mg Tablet 1 tab PO Q4H PRN (Reason: Pain, Moderate(Pain Scale 4-6)) 7 Days Qty: 42 0RF Rx Instructions: Partial Fill upon patient request. Continued (DME) walker [facility] See Rx Instructions .ROUTE .MEDSUPPLY Qty: 1 0RF Rx Instructions: As directed methadone [Methadone Intensol] 10 mg/mL Concentrate 130 mg PO DAILY ondansetron 4 mg tablet,disintegrating 4 mg PO TID PRN (Reason: nausea and vomiting) 5 Days Qty: 10 0RF metoclopramide HCl [Reglan] 10 mg tablet 10 mg PO Q8H PRN (Reason: nausea and vomiting) Qty: 40 0RF Rx Instructions: Take 1 tablet 1 hour prior to meals insulin degludec [Tresiba FlexTouch U-100] 100 unit/mL (3 mL) insulin pen 20 unit subcut BEDTIME gabapentin 600 mg tablet 600 mg PO TID (DME) lancets 33 gauge misc See Rx Instructions Not Applicable TID Qty: 100 Rx Instructions: As directed albuterol sulfate 90 mcg/actuation HFA aerosol inhaler 2 puff PO Q4H PRN (Reason: Respiratory Distress) lisinopril 10 mg tablet 10 mg PO DAILY omeprazole 20 mg capsule,delayed release(DR/EC) 20 mg PO DAILY metformin 1,000 mg tablet 1,000 mg PO BIDWMEAL aspirin 81 mg tablet,delayed release (DR/EC) 81 mg PO DAILY bupropion HCl 150 mg tablet sustained-release 12 hr 150 mg PO BID atorvastatin 40 mg tablet 40 mg PO DAILY <ELGIN Junior Last Filed: 10/15/23 13:59> Discharge Orders: Discharge Order (Routine); Ordered 10/16/23 Ordered By: Judy Beckham <ELGIN Junior Last Filed: 10/15/23 13:59> Diet: Regular diet <ELGIN Junior Last Filed: 10/15/23 13:59> Regular diet <ELGIN Fermin Last Filed: 10/16/23 08:18> Activity on Discharge: Use cane or walker <ELGIN Junior Last Filed: 10/15/23 13:59> Use cane or walker <ELGIN Fermin Last Filed: 10/16/23 08:18> Stand Alone Forms: Patient Portal Discharge page <ELGIN Junior Last Filed: 10/15/23 13:59> Print Language: [place] Islander <ELGIN Junior Last Filed: 10/15/23 13:59> Care Plan Goals: Restore function of joint <ELGIN Junior Last Filed: 10/15/23 13:59> Health Concerns: minotor infection monitor diabetes <Binta Saucedo PA-C - Last Filed: 10/15/23 13:59> Plan of Treatment: IV abx x6 weeks <Binta Saucedo PA-C - Last Filed: 10/15/23 13:59> Assessment: * Wear sling for the first 48 hours after surgery-OK to remove for pendulum exercises throughout the day * No heavy lifting-OK to move arm at elbow and wrist * Do not bathe or shower--keep bandage clean , dry and intact * Call [facility] orthopedics with any questions or concerns. <Binta Saucedo PA-C - Last Filed: 10/15/23 13:59>
[2023-10-15 15:05] VITALS: BP 207/94; PULSE 68; RESP 20; TEMP 36.6; O2SAT 100
--- NOTE | 2023-10-15 15:46 | MHC.CM.PN ---
Addendum entered by Gabrielle Davis 10/15/23 16:22: LEVEL I COMPLETE Original Note: CM MET WITH PT TO DISCUSS DC PLANNING PT HAS A PICC AND WILL NEED LT IV ABX SHE AGREES TO STR PLACEMENT FOR THIS TREATMENT [facility] IS PREFERRED SNF PT REPORTS HER HOME [facility] CLINIC IS [facility] [place] CM WILL CONTACT [facility] IN [place] FIRST THING THURSDAY MORNING TO INITIATE GUEST DOSING
[2023-10-15 15:54] VITALS: O2SAT 100
[2023-10-15 16:28] LABS: Glucose, Whole Blood 147 mg/dL (60-115)
[2023-10-15 20:00] VITALS: BP 86/60; PULSE 72; RESP 20; TEMP 36.2; O2SAT 96
[2023-10-15 20:17] LABS: Glucose, Whole Blood 145 mg/dL (60-115)
--- NOTE | 2023-10-15 20:51 | PC.NURSE ---
Contacted Dr. Cantrell at 2039 to inform him that pt's bp was low manually at 88/60, left arm, supine. She is also a diabetic, POC at 2039 was 147 and she is scheduled for 10 units of Lantus at . Dr. Cantrell approved 5 units of Lantus, as she has not been eating today d/t N/V. Gave suad gonzalez with her Lantus.
[2023-10-15] MEDS: Gabapentin 600 MG TABLET PO (20:58)
[2023-10-15] MEDS: Insulin Glargine,Hum.rec.anlog 100 UNIT/ML 10 ML VIAL 10 UNIT SUBCUT (20:58)
[2023-10-15] MEDS: 0.9 % Sodium Chloride 1,000 ML 999 ML IV (20:59)
[2023-10-15 22:50] VITALS: BP 100/40
[2023-10-16] MEDS: 0.9 % Sodium Chloride Flush 3 ML SYRINGE IVFLUSH ×3 (00:49→16:55)
[2023-10-16] MEDS: vancomycin HCL 500 MG in 0.9 % Sodium Chloride 100 ML 110 MG IV ×2 (02:30→13:21)
[2023-10-16 04:00] VITALS: BP 162/78; PULSE 57; RESP 16; TEMP 36.2; O2SAT 98
[2023-10-16] MEDS: Acetaminophen 1,000 MG/100 ML PIGGYBACK 400 MG IV (05:43)
[2023-10-16] MEDS: Omeprazole 20 MG CAPSULE.DR PO (05:43)
[2023-10-16 07:28] LABS: Creatinine Clr Calc Pharmacy 40.3; Estimated Glomerular Filt Rate 43
[2023-10-16 07:37] VITALS: BP 120/74; PULSE 52; RESP 16; TEMP 36.3; O2SAT 99
[2023-10-16 07:49] LABS: Glucose, Whole Blood 108 mg/dL (60-115)
[2023-10-16] MEDS: buPROPion HCl XL 300 MG TAB.ER.24H PO (08:39)
[2023-10-16] MEDS: Gabapentin 600 MG TABLET PO ×3 (08:40→20:15)
[2023-10-16] MEDS: lisinopriL 10 MG TABLET PO (08:40)
[2023-10-16] MEDS: methADONE HCl 20 MG/2 ML ORAL.CONC 130 MG PO (08:40)
[2023-10-16 11:15] LABS: Glucose, Whole Blood 145 mg/dL (60-115)
[2023-10-16 12:45] LABS: Vancomycin Random 18.3 mcg/mL (15-20)
--- NOTE | 2023-10-16 12:55 | HE.PHANOTE ---
Velvet Ramsey: Renal function has decline (SCr went from 0.86 to 1.26). Continue current dose 500mg Q12H, predicted AUC 573. Next random trough to be drawn 10/16 12:00.
--- NOTE | 2023-10-16 15:34 | P.PNID_ITS ---
Subjective Subjective Date of Service: 10/16/23 Critical Care Time (minutes): 15 Comment: she has MRSA shoulder wound Objective Data Labs 10/16/23 06:47 Labs: Laboratory Results - last 24 hr 10/15/23 10/15/23 10/16/23 16:13 20:13 06:47 Creatinine 1.26 Estim Creat Clear Calc 40.3 Estimated GFR 43 POC Glucose 147 H 145 H Random Vancomycin 10/16/23 10/16/23 10/16/23 07:43 11:10 12:11 Creatinine Estim Creat Clear Calc Estimated GFR POC Glucose 108 145 H Random Vancomycin 18.3 Microbiology Microbiology Results: Microbiology 10/13/23 16:11 Shoulder Left Gram Stain - Final 10/13/23 16:11 Shoulder Left Routine Culture - Final Methicillin Res Staph Aureus 10/13/23 16:11 Shoulder Left Anaerobic Culture - Preliminary Culture in progress. Physical Exam 2 Vital Signs: Vital Signs: Last Vital Signs Temp 97.3 F 10/16/23 07:37 Pulse 52 10/16/23 07:37 Resp 16 10/16/23 07:37 BP 120/74 10/16/23 07:37 Pulse Ox 99 10/16/23 07:37 O2 Del Method Room Air 10/16/23 07:37 O2 Flow Rate 1.0 10/14/23 07:47 BMI result Body Mass Index 33.3 Const: General: cooperative HEENT: Head: Yes normal to inspection Face and sinus: Yes normal facial exam Mouth: Normal oral and palatal mucosa present Teeth and gingiva: d entition normal Eyes: General: appearance normal, both eyes and all related structures P upils: Equal, round and reactive pupils present Resp: Effort & Inspection: normal respiratory effort Cardio: Rate: regular rate Rhythm: regular rhythm GI: Palpation (GI): Soft to palpation and nontender : General: Yes no CVA tenderness Back/Spine/Pelvis: Back: no CVA tenderness Skin: General skin exam: no rashes or lesions noted Neuro: General: moves all extremities Cranial nerves: Yes Equal, round and reactive pupils present Extrem: Other: shoulder discomfort,left Psych: Appearance: grossly normal Assessment and Plan Assessment and plan (1) Osteomyelitis of left shoulder: Problem details: She should receive six weeks Vancomycin or Daptomycin and then Bactrim po DS daily for some luke Status: Acute Time Spent With Patient Time: Total time managing care of this patient today ____ minutes.
[2023-10-16 15:41] VITALS: BP 140/60; PULSE 63; RESP 18; TEMP 36.3
[2023-10-16 16:00] VITALS: O2SAT 93; O2SAT 98
[2023-10-16 16:42] LABS: Glucose, Whole Blood 210 mg/dL (60-115)
[2023-10-16] MEDS: Insulin Lispro 100 UNIT/ML 3 ML VIAL SUBCUT ×2 (16:54→20:14)
[2023-10-16 19:46] VITALS: BP 141/89; PULSE 74; RESP 16; TEMP 36.3; O2SAT 96
[2023-10-16 19:59] LABS: Glucose, Whole Blood 175 mg/dL (60-115)
[2023-10-16] MEDS: Insulin Glargine,Hum.rec.anlog 100 UNIT/ML 10 ML VIAL 10 UNIT SUBCUT (20:14)
[2023-10-17] MEDS: vancomycin HCL 500 MG in 0.9 % Sodium Chloride 100 ML 110 MG IV ×2 (01:13→13:49)
[2023-10-17 03:36] VITALS: BP 160/69; PULSE 61; RESP 16; TEMP 36.4; O2SAT 96
[2023-10-17] MEDS: Acetaminophen 325 MG TABLET 650 MG PO (03:45)
[2023-10-17 06:06] LABS: Creatinine Clr Calc Pharmacy 39.6; Estimated Glomerular Filt Rate 42
[2023-10-17] MEDS: Omeprazole 20 MG CAPSULE.DR PO (06:27)
[2023-10-17 07:49] VITALS: BP 165/60; PULSE 54; RESP 17; TEMP 36.4; O2SAT 97
[2023-10-17 07:53] LABS: Glucose, Whole Blood 96 mg/dL (60-115)
--- NOTE | 2023-10-17 08:53 | P.EN_ITS ---
Event Note Date of Service: 10/17/23 Event Note: patient was suppose to be dc to [facility] yesterday-per CM not able to dc now until Thursday. vanco trough 18 which is within recommended levels cont dry dressing changes cont iv abx Time Spent With Patient Time: Total time managing care of this patient today ____ minutes.
[2023-10-17] MEDS: methADONE HCl 20 MG/2 ML ORAL.CONC 130 MG PO (09:23)
[2023-10-17] MEDS: lisinopriL 10 MG TABLET PO (09:24)
[2023-10-17] MEDS: buPROPion HCl XL 300 MG TAB.ER.24H PO (09:24)
[2023-10-17] MEDS: Gabapentin 600 MG TABLET PO ×3 (09:24→20:44)
[2023-10-17] MEDS: 0.9 % Sodium Chloride Flush 3 ML SYRINGE IVFLUSH ×2 (09:25→16:05)
[2023-10-17 11:28] LABS: Glucose, Whole Blood 259 mg/dL (60-115)
[2023-10-17] MEDS: Insulin Lispro 100 UNIT/ML 3 ML VIAL SUBCUT ×2 (11:59→20:46)
[2023-10-17 12:25] LABS: Vancomycin Random 18.7 mcg/mL (15-20)
[2023-10-17 15:38] VITALS: BP 121/58; PULSE 55; RESP 20; TEMP 36.1; O2SAT 99
[2023-10-17 16:00] VITALS: O2SAT 99
[2023-10-17 16:30] LABS: Glucose, Whole Blood 67 mg/dL (60-115)
[2023-10-17 19:14] VITALS: BP 145/70; PULSE 69; RESP 20; TEMP 36.8; O2SAT 100
[2023-10-17 19:42] LABS: Glucose, Whole Blood 231 mg/dL (60-115)
[2023-10-17] MEDS: Insulin Glargine,Hum.rec.anlog 100 UNIT/ML 10 ML VIAL 10 UNIT SUBCUT (20:45)
[2023-10-18] MEDS: vancomycin HCL 500 MG in 0.9 % Sodium Chloride 100 ML 110 MG IV ×2 (01:25→14:02)
[2023-10-18 03:09] VITALS: BP 169/70; PULSE 60; RESP 16; TEMP 36.3; O2SAT 99
[2023-10-18] MEDS: Omeprazole 20 MG CAPSULE.DR PO (05:38)
[2023-10-18 06:42] LABS: Creatinine Clr Calc Pharmacy 61.1; Estimated Glomerular Filt Rate > 60
[2023-10-18 07:22] LABS: Glucose, Whole Blood 132 mg/dL (60-115)
[2023-10-18 07:25] VITALS: BP 161/70; PULSE 58; RESP 18; TEMP 36.7; O2SAT 97
[2023-10-18] MEDS: lisinopriL 10 MG TABLET PO (09:01)
[2023-10-18] MEDS: Gabapentin 600 MG TABLET PO ×3 (09:01→21:29)
[2023-10-18] MEDS: buPROPion HCl XL 300 MG TAB.ER.24H PO (09:01)
[2023-10-18] MEDS: 0.9 % Sodium Chloride Flush 3 ML SYRINGE IVFLUSH ×3 (09:02→21:30)
[2023-10-18] MEDS: methADONE HCl 20 MG/2 ML ORAL.CONC 130 MG PO (09:03)
[2023-10-18 11:09] LABS: Glucose, Whole Blood 246 mg/dL (60-115)
[2023-10-18] MEDS: Insulin Lispro 100 UNIT/ML 3 ML VIAL SUBCUT ×2 (11:33→21:30)
[2023-10-18 12:12] LABS: Vancomycin Random 17.2 mcg/mL (15-20)
--- NOTE | 2023-10-18 12:18 | HE.PHANOTE ---
RE: VANCO DOSING Random came back as 17.2 which is higher than the predicted 15.8. Continue on 500 mg q12h, will draw another level @1200 on 10/19/23.
[2023-10-18 15:13] VITALS: BP 125/62; PULSE 59; RESP 18; TEMP 36.1; O2SAT 95
[2023-10-18 15:37] VITALS: O2SAT 95
[2023-10-18 15:38] VITALS: O2SAT 95
[2023-10-18 16:31] LABS: Glucose, Whole Blood 144 mg/dL (60-115)
[2023-10-18 19:52] VITALS: BP 162/74; PULSE 71; RESP 18; TEMP 36.5; O2SAT 94
[2023-10-18 21:04] LABS: Glucose, Whole Blood 215 mg/dL (60-115)
[2023-10-18] MEDS: Insulin Glargine,Hum.rec.anlog 100 UNIT/ML 10 ML VIAL 10 UNIT SUBCUT (21:29)
--- NOTE | 2023-10-18 21:48 | PM.EVENT ---
Event Note Date of Service: 10/18/23 Event Note: Spoke to nurse ( sania) in regards to patient. She is currently sleeping. Vanco trough 17.2 No overnight events and no events or concerns today plan to dc to rehab tomorrow Time Spent With Patient Time: Total time managing care of this patient today ____ minutes.
[2023-10-19] MEDS: vancomycin HCL 500 MG in 0.9 % Sodium Chloride 100 ML 110 MG IV (01:38)
[2023-10-19 03:16] VITALS: BP 113/55; PULSE 61; RESP 18; TEMP 36.2; O2SAT 97
[2023-10-19] MEDS: Omeprazole 20 MG CAPSULE.DR PO (05:55)
[2023-10-19 07:17] LABS: Glucose, Whole Blood 141 mg/dL (60-115)
[2023-10-19 07:19] LABS: Creatinine Clr Calc Pharmacy 36.2; Estimated Glomerular Filt Rate 38
[2023-10-19 07:21] VITALS: BP 107/53; PULSE 62; RESP 18; TEMP 36.9; O2SAT 95
[2023-10-19] MEDS: buPROPion HCl XL 300 MG TAB.ER.24H PO (08:19)
[2023-10-19] MEDS: Gabapentin 600 MG TABLET PO (08:19)
[2023-10-19] MEDS: 0.9 % Sodium Chloride Flush 3 ML SYRINGE IVFLUSH (08:20)
[2023-10-19] MEDS: methADONE HCl 20 MG/2 ML ORAL.CONC 130 MG PO (08:20)
--- NOTE | 2023-10-19 08:21 | MHC.CM.PN ---
Addendum entered by Gabrielle Davis 10/19/23 10:40: [facility] HAS CONFIRMED THEY ARE ABLE TO ACCEPT PT TODAY DCS AND LAST DOSE LETTER SENT BLS TRANSPORT BOOKED FOR 1200 HOURS CM MT WITH PT TO CONFIRM DCP, SHE STATES HER IS AT [facility], AND SHE WISHES SHE COULD GO THERE CM EXPLAINED THEY HAVE NOT BEEN TAKING ANY NEW METHADONE PTS FOR SOME TIME AND IF THEY DID, HER GUEST DOSING WOULD NOT BE ABLE TO BE CHANGED DUE TO THE HOLIDAY SHE STATES UNDERSTANDING AND IS AGREEABLE TO DCP Original Note: PTS GUEST DOSING WAS ARRANGED WITH [facility] IN [place] BY CM ON THURSDAY. CM HAS LEFT A MESSAGE WITH [facility] TO CONFIRM THEY ARE ABLE TO TAKE PT TODAY
[2023-10-19 11:16] LABS: Glucose, Whole Blood 216 mg/dL (60-115)
--- NOTE | 2023-10-30 15:16 | P.CDIM_ITS ---
PROVIDER RESPONSE TEXT: To clarify, the appropriate diagnosis supported by the clinical indicators: Excisional debridement QUERY TEXT: PHYSICIAN'S DOCUMENTATION REQUEST Date of Query: 10/29/2023 08:01 AM EDT Patient Name: Lazara Driscoll Admit Date: 10/14/2023 Dear Kendrick Richter MD, RETROSPECTIVE QUERY A review of the medical record indicates additional documentation may be needed. Please review below and update the documentation accordingly. Clinical Indicators: I&D dated 10/13/23: Left shoulder abscess with bony involvement, likely osteomyelitis Incision and Debridement left shoulder I gently debrided down through the fibrous tissue and there was a open joint capsule and the wound tr aveled deep into the shoulder joint. The bone had been infected for some time. I debrided with curette and a rongeur and then copiously ir rigated with pulse lavage. A drain was placed and the capsule was closed. Could you provide, in the Progress Notes, further clarification regarding the type of debridement per formed: Excisional debridement Non-excisional debridement Other (explain) Clinically unable to determine (explain) Thank you, Kaitlynn Graves, CCS, CDIS Use of terms such as suspected, likely, concern for, or probable (associated with a specific diagnosi s that is being evaluated, monitored, or treated as if it exists) are acceptable and can be coded in the inpatient se tting, when documented at the time of discharge. Please use your independent medical judgment in providing your response. THIS QUERY IS PART OF THE PERMANENT MEDICAL RECORD
== END 2023-10-19 12:09 | disposition skilled nursing facility (03) | DRG 988 ==
LOC: HO.SSS 10:30 → HO.S3 10:30
PROVIDERS: Admitting Provider Physician Assistant; PCP Internal Medicine; Visit Provider Orthopaedic Surgery
PROC: 0RBK0ZZ Excision of Left Shoulder Joint, Open Approach (ICD-10-PCS; principal; 2023-10-13 15:30)
DX: E11.69 Type 2 diabetes mellitus with other specified complication (principal); F11.20 Opioid dependence, uncomplicated; Z59.01 Sheltered homelessness; M86.9 Osteomyelitis, unspecified; I10 Essential (primary) hypertension; J44.9 Chronic obstructive pulmonary disease, unspecified; K21.9 Gastro-esophageal reflux disease without esophagitis; B95.62 Methicillin resistant Staphylococcus aureus infection as the cause of diseases classified elsewhere; F17.210 Nicotine dependence, cigarettes, uncomplicated; Z71.6 Tobacco abuse counseling; Z89.511 Acquired absence of right leg below knee; Z79.4 Long term (current) use of insulin; Z79.82 Long term (current) use of aspirin; Z79.84 Long term (current) use of oral hypoglycemic drugs; Z79.899 Other long term (current) drug therapy
CPT/HCPCS: 36415; 36573; 80202; 82565; 82947; 87070; 87073; 87077; 87186; 87205; C1751; J0131; J0690; J1170; J2405; J2704; J2795; J3010; J3370; J7120

== ENCOUNTER → 2023-10-14 10:28 | Outpatient (BNV) | payer MEDICARE, MEDICAID, SELFPAY | PROVIDERS: Admitting Provider Physician Assistant; PCP Internal Medicine; Visit Provider Internal Medicine | DX: M86.9 Osteomyelitis, unspecified (principal) | CPT/HCPCS: 99222; 99232 ==

== ENCOUNTER 2023-10-22 13:56 | Outpatient (AMB) | payer MEDICARE, MEDICAID, SELFPAY ==
--- NOTE | 2023-10-22 14:12 | A.OFFVIS_ITS ---
Vital Signs 10/22/23 14:13 Height 4 ft 11 in Weight 145 lb BMI 29.3 Intake Visit Reasons: PO LT shoulder I&D 10/14/23 NE Intake Note: Lazara a 63 year old female who presents today for a post operative left shoulder I&D on 10/14/23. Patient reports that she is doing well, she denies any pain or discomfort. Allergies No Known Allergies Allergy (Verified 10/22/23 14:31) HPI HPI PO LT shoulder I&D 10/14/23 NE: Details: 63-year-old female who presents in the office today 9 days status post left shoulder incision and drainage, which was performed on 10/13/[address] Richter. [facility] Medical History Diabetic osteomyelitis Below-knee amputation of right lower extremity Osteomyelitis of ankle Charcot foot due to diabetes mellitus Acute hyperglycemia Cellulitis Gastroenteritis Gastritis Constipation Diabetic foot ulcer New onset of congestive heart failure DKA (diabetic ketoacidoses) COVID-19 Dyslipidemia Glaucoma Pulmonary emboli Depression Chronic prescription opiate use Diabetes mellitus Pulmonary nodule Tobacco dependence COPD (chronic obstructive pulmonary disease) Surgical History History of below-knee amputation of right lower extremity (01/13/22) Cataract extraction status, right eye Cataract extraction status, left eye Hx of cholecystectomy Family History Other CVA (cerebral vascular accident) Social History Household Members: Spouse Housing: Apartment Housing Other:: hotel Do you presently have visiting nurse or other home services: Yes ([facility] services) Unable to assess alcohol history related to: Unknown Alcohol intake: never Comment: refused telesitter Patient Tobacco Use Status: Current everyday Tobacco user Tobacco use type: Cigarette Cigarette Packs Per Day: 0.5 Cigarettes Per Day: 5 Years Smoked: 45 e-Cigarette/Vaping Use: Currently Using Second Hand Smoke Exposure: No Substance Use Type: Former Substance User Advance Directives Date on File: 01/12/22 service: No Current occupational status: disabled Review of Systems Const All systems reviewed & are unremarkable except as noted in HPI and below Physical Exam Vital Signs: BMI result Body Mass Index 29.3 Const General: cooperative, healthy appearing and no acute distress Resp Effort & Inspection: normal respiratory effort and able to speak in complete sentences Cardio Rate: regular rate Peripheral pulses: Peripheral pulses 2+ throughout GI Palpation (GI): Soft to palpation Skin Lesions: no lesions Rashes: no rashes Extrem Other: Left shoulder: Incision site is clean, dry, and intact. No surrounding erythema or drainage. No signs of infection. Sutures intact. Quality Reporting (2019) Adult ([facility] 138/08/27/68) Smoking risk assessment performed?: Yes Patient Tobacco Use Status: Current everyday Tobacco user Assessment & Plan Assessment & Plan (1) Diabetic osteomyelitis: Code(s): E11.69 - Type 2 diabetes mellitus with other specified complication; M86.9 - Osteomyelitis, unspecified Category: Medical (2) Osteomyelitis of left shoulder: Comment: She should receive six weeks Vancomycin or Daptomycin and then Bactrim po DS daily for some time Code(s): M86.9 - Osteomyelitis, unspecified Category: Medical Plan Ms. Driscoll is a 63-year-old female who presents in the office today 9 days status post left shoulder incision and drainage, which was performed on 10/13/[address] Richter. Sutures were removed and steri-stripes were applied. She will continue with 6 weeks of IV antibiotics. Follow up will be in [address] Richter, or sooner if needed. Patient Instructions: Scribed by Yue Aguirre medical office receptionist, for Judy Beckham PA-C on 10/22/2023 at 1:58 pm, EST.
[2023-10-22 14:13] VITALS: BMI 29.3
== END 2023-10-22 14:31 | disposition home or self-care (01) ==
PROVIDERS: PCP Internal Medicine; Visit Provider Physician Assistant
DX: E11.69 Type 2 diabetes mellitus with other specified complication (principal); M86.9 Osteomyelitis, unspecified
CPT/HCPCS: 99024

== ENCOUNTER → 2023-10-22 13:56 | Outpatient (BNVA) | payer MEDICARE, MEDICAID, SELFPAY | PROVIDERS: PCP Internal Medicine; Visit Provider Physician Assistant | DX: E11.69 Type 2 diabetes mellitus with other specified complication (principal); M86.8X1 Other osteomyelitis, shoulder; Z79.891 Long term (current) use of opiate analgesic | CPT/HCPCS: 99212 ==

== ENCOUNTER 2023-11-02 13:53 | Outpatient (AMB) | payer MEDICARE, MEDICAID, SELFPAY ==
[2023-11-02 14:38] VITALS: PULSE 61; TEMP 36.7; O2SAT 98
--- NOTE | 2023-11-02 14:38 | MHC.OFFVIS ---
Vital Signs 11/02/23 14:38 Height 4 ft 11 in Pulse 61 Pulse Source Pulse Oximeter Temp 98.1 F Temp Source Oral Pulse Oximetry (%) 98 Intake Visit Reasons: Ref.[facility].Osteomyelitis of left shoulder ([facility]) Allergies No Known Allergies Allergy (Verified 11/02/23 14:39) HPI HPI Ref.C.Osteomyelitis of left shoulder ([facility]): Details: She still has some shoulder leakage. [facility] Medical History Diabetic osteomyelitis Below-knee amputation of right lower extremity Osteomyelitis of ankle Charcot foot due to diabetes mellitus Acute hyperglycemia Cellulitis Gastroenteritis Gastritis Constipation Diabetic foot ulcer New onset of congestive heart failure DKA (diabetic ketoacidoses) COVID-19 Dyslipidemia Glaucoma Pulmonary emboli Depression Chronic prescription opiate use Diabetes mellitus Pulmonary nodule Tobacco dependence COPD (chronic obstructive pulmonary disease) Surgical History History of below-knee amputation of right lower extremity (01/13/22) Cataract extraction status, right eye Cataract extraction status, left eye Hx of cholecystectomy Family History Other CVA (cerebral vascular accident) Social History Household Members: Spouse Housing: Apartment Housing Other:: hotel Do you presently have visiting nurse or other home services: Yes (VNA services) Unable to assess alcohol history related to: Unknown Alcohol intake: never Comment: refused telesitter Patient Tobacco Use Status: Current everyday Tobacco user Tobacco use type: Cigarette Cigarette Packs Per Day: 0.5 Cigarettes Per Day: 5 Years Smoked: 45 e-Cigarette/Vaping Use: Currently Using Second Hand Smoke Exposure: No Substance Use Type: Former Substance User Advance Directives Date on File: 01/12/22 service: No Current occupational status: disabled Review of Systems Const All systems reviewed & are unremarkable except as noted in HPI and below Physical Exam Vital Signs: Last Vital Signs Temp 98.1 F 11/02/23 14:38 Pulse 61 11/02/23 14:38 Pulse Ox 98 11/02/23 14:38 Const Other: General: cooperative Orientation/consciousness: patient oriented x3 HEENT Head: Yes normal to inspection Mouth: Normal oral and palatal mucosa present Eyes General: appearance normal, both eyes and all related structures Pupils: Equal, round and reactive pupils present Resp Effort & Inspection: normal respiratory effort Cardio Rate: regular rate Rhythm: regular rhythm GI Palpation (GI): Soft to palpation and nontender General: Yes no CVA tenderness Back/Spine/Pelvis Back: no CVA tenderness Skin General skin exam: no rashes or lesions noted Neuro General: patient oriented x3 Cranial nerves: Yes CN's II-XII intact bilaterally and Yes Equal, round and reactive pupils present Extrem General: Yes normal to inspection Psych Appearance: grossly normal Quality Reporting (2019) Adult ([facility] 13808/27/68) Smoking risk assessment performed?: Yes Patient Tobacco Use Status: Current everyday Tobacco user Assessment & Plan Assessment & Plan (1) Osteomyelitis of left shoulder: Comment: She should receive six weeks Vancomycin or Daptomycin and then Bactrim po DS daily for some time Code(s): M86.9 - Osteomyelitis, unspecified Category: Medical Plan: This is 2/6 week Daptomycin. Return in 3 weeks and stop med in four weeks and then po Bactrim 3x a week. Coding Level of Care Code Est Pt Level 3 (95459) Diagnoses Osteomyelitis of left shoulder M86.9
== END 2023-11-02 15:03 | disposition home or self-care (01) ==
LOC: HO.HID 13:54
PROVIDERS: PCP Internal Medicine; Visit Provider Internal Medicine
DX: M86.9 Osteomyelitis, unspecified (principal)
CPT/HCPCS: 99213

== ENCOUNTER → 2023-11-02 13:53 | Outpatient (BNVA) | payer MEDICARE, MEDICAID, SELFPAY | PROVIDERS: PCP Internal Medicine; Visit Provider Internal Medicine | DX: M86.9 Osteomyelitis, unspecified (principal) | CPT/HCPCS: 99212 ==

== ENCOUNTER 2023-11-16 13:56 | Outpatient (AMB) | payer MEDICARE, MEDICAID, SELFPAY ==
[2023-11-16 13:57] VITALS: PULSE 61; TEMP 36.3; O2SAT 98
--- NOTE | 2023-11-16 13:57 | A.OFFVIS_ITS ---
Vital Signs 3 11/16/23 13:57 Pulse 61 Pulse Source Pulse Oximeter Temp 97.4 F Temp Source Oral Pulse Oximetry (%) 98 Intake Visit Reasons: f/u,3 wks Allergies No Known Allergies Allergy (Verified 11/19/23 10:07) HPI HPI f/u,3 wks : Details: She is doing well She is done with Daptomycin on 11/29. [facility] Medical History Diabetic osteomyelitis Below-knee amputation of right lower extremity Osteomyelitis of ankle Charcot foot due to diabetes mellitus Acute hyperglycemia Cellulitis Gastroenteritis Gastritis Constipation Diabetic foot ulcer New onset of congestive heart failure DKA (diabetic ketoacidoses) COVID-19 Dyslipidemia Glaucoma Pulmonary emboli Depression Chronic prescription opiate use Diabetes mellitus Pulmonary nodule Tobacco dependence COPD (chronic obstructive pulmonary disease) Surgical History History of below-knee amputation of right lower extremity (01/13/22) Cataract extraction status, right eye Cataract extraction status, left eye Hx of cholecystectomy Family History Other CVA (cerebral vascular accident) Social History Household Members: Spouse Housing: Apartment Housing Other:: hotel Do you presently have visiting nurse or other home services: Yes (VNA services) Unable to assess alcohol history related to: Unknown Alcohol intake: never Comment: refused telesitter Patient Tobacco Use Status: Current everyday Tobacco user Tobacco use type: Cigarette Cigarette Packs Per Day: 0.5 Cigarettes Per Day: 5 Years Smoked: 45 e-Cigarette/Vaping Use: Currently Using Second Hand Smoke Exposure: No Substance Use Type: Former Substance User Advance Directives Date on File: 01/12/22 service: No Current occupational status: disabled Physical Exam Vital Signs: Last Vital Signs Temp 97.4 F 11/16/23 13:57 Pulse 61 11/16/23 13:57 Pulse Ox 98 11/16/23 13:57 Const Other: General: cooperative Orientation/consciousness: patient oriented x3 HEENT Head: Yes normal to inspection Mouth: Normal oral and palatal mucosa present Eyes General: appearance normal, both eyes and all related structures Pupils: Equal, round and reactive pupils present Resp Effort & Inspection: normal respiratory effort Cardio Rate: regular rate Rhythm: regular rhythm GI Palpation (GI): Soft to palpation and nontender General: Yes no CVA tenderness Back/Spine/Pelvis Back: no CVA tenderness Skin General skin exam: no rashes or lesions noted Neuro General: patient oriented x3 Cranial nerves: Yes CN's II-XII intact bilaterally and Yes Equal, round and reactive pupils present Extrem General: Yes normal to inspection Psych Appearance: grossly normal Quality Reporting (2019) Adult ([facility] 138/08/27/68) Smoking risk assessment performed?: Yes Patient Tobacco Use Status: Current everyday Tobacco user Assessment & Plan Assessment & Plan (1) Osteomyelitis of left shoulder: Comment: She should receive six weeks Vancomycin or Daptomycin and then Bactrim po DS daily for some time Code(s): M86.9 - Osteomyelitis, unspecified Category: Medical Plan: na Orders: Orders 2 IR cvc remove any age 0511/16/23 M86.9 - Osteomyelitis, unspecified Medications: New 2 sulfamethoxazole-trimethoprim 800-160 mg (Bactrim DS) 1 tab PO 3XW 13 tabs 5RF 30 days Coding Level of Care Code Est Pt Level 3 (53938) Diagnoses Osteomyelitis of left shoulder M86.9
== END 2023-11-16 14:37 | disposition home or self-care (01) ==
LOC: HO.HID 13:56
PROVIDERS: PCP Internal Medicine; Visit Provider Internal Medicine
DX: M86.9 Osteomyelitis, unspecified (principal)
CPT/HCPCS: 99213

== ENCOUNTER → 2023-11-16 13:56 | Outpatient (BNVA) | payer MEDICARE, MEDICAID, SELFPAY | PROVIDERS: PCP Internal Medicine; Visit Provider Internal Medicine | DX: M86.9 Osteomyelitis, unspecified (principal) | CPT/HCPCS: 99212 ==

== ENCOUNTER 2023-11-19 09:58 | Outpatient (AMB) | payer MEDICARE, MEDICAID, SELFPAY ==
--- NOTE | 2023-11-19 10:02 | A.OFFVIS_ITS ---
Vital Signs 11/19/23 10:04 Height 4 ft 11 in Weight 175 lb BMI 35.3 Intake Visit Reasons: PO LT shoulder I&D 10/14/23 NE Intake Note: Lazara is a 63 year old female who presents today for a post operative left shoulder I&D 10/14/23. Patient reports that she is doing well, but is having some sharp stabbing pain during the night time. She has occasional numbness and tingling in bilateral hands. Allergies No Known Allergies Allergy (Verified 11/19/23 10:07) HPI HPI PO LT shoulder I&D 10/14/23 NE: Details: Six weeks status post left shoulder I and D. She continues to be on IV antibiotics. She states she feels some pressure in her left shoulder but there has been no more drainage. [facility] Medical History Diabetic osteomyelitis Below-knee amputation of right lower extremity Osteomyelitis of ankle Charcot foot due to diabetes mellitus Acute hyperglycemia Cellulitis Gastroenteritis Gastritis Constipation Diabetic foot ulcer New onset of congestive heart failure DKA (diabetic ketoacidoses) COVID-19 Dyslipidemia Glaucoma Pulmonary emboli Depression Chronic prescription opiate use Diabetes mellitus Pulmonary nodule Tobacco dependence COPD (chronic obstructive pulmonary disease) Surgical History History of below-knee amputation of right lower extremity (01/13/22) Cataract extraction status, right eye Cataract extraction status, left eye Hx of cholecystectomy Family History Other CVA (cerebral vascular accident) Social History Household Members: Spouse Housing: Apartment Housing Other:: hotel Do you presently have visiting nurse or other home services: Yes (VNA services) Unable to assess alcohol history related to: Unknown Alcohol intake: never Comment: refused telesitter Patient Tobacco Use Status: Current everyday Tobacco user Tobacco use type: Cigarette Cigarette Packs Per Day: 0.5 Cigarettes Per Day: 5 Years Smoked: 45 e-Cigarette/Vaping Use: Currently Using Second Hand Smoke Exposure: No Substance Use Type: Former Substance User Advance Directives Date on File: 01/12/22 service: No Current occupational status: disabled Physical Exam Vital Signs: BMI result Body Mass Index 35.3 Extrem Other: The wound is healed. She has minimal motion of the left shoulder. Quality Reporting (2019) Adult ([facility] 13808/27/68) Smoking risk assessment performed?: Yes Patient Tobacco Use Status: Current everyday Tobacco user Assessment & Plan Assessment & Plan (1) Osteomyelitis of left shoulder: Comment: She should receive six weeks Vancomycin or Daptomycin and then Bactrim po DS daily for some time Code(s): M86.9 - Osteomyelitis, unspecified Category: Medical Plan: This is a 63-year-old with left shoulder chronic osteomyelitis. She is being treated with antibiotics now and she should continue that course and follow up with me in approximately 6 weeks. Coding Level of Care Code Global (97950) Diagnoses Osteomyelitis of left shoulder M86.9
[2023-11-19 10:04] VITALS: BMI 35.3
== END 2023-11-19 10:28 | disposition home or self-care (01) ==
PROVIDERS: PCP Internal Medicine; Visit Provider Orthopaedic Surgery
DX: M86.9 Osteomyelitis, unspecified (principal)
CPT/HCPCS: 99024

== ENCOUNTER → 2023-11-19 09:58 | Outpatient (BNVA) | payer MEDICARE, MEDICAID, SELFPAY | PROVIDERS: PCP Internal Medicine; Visit Provider Orthopaedic Surgery | DX: M86.612 Other chronic osteomyelitis, left shoulder (principal) | CPT/HCPCS: 99212 ==

== ENCOUNTER 2023-12-29 11:27 | Emergency (ER) | payer MEDICARE, MEDICAID, SELFPAY ==
[2023-12-29] VITALS (10 sets, daily range): BP systolic 169–207; BP diastolic 52–87; PULSE 52–63; RESP 14–36; TEMP 36.6–36.9; O2SAT 93–98; BMI 23.7
--- NOTE | ~2023-12-29 | XR_ITS ---
EXAMINATION: XR CHEST CLINICAL INFORMATION: Tachypnea COMPARISON: Chest radiograph 12/26/2020 TECHNIQUE: Frontal view of the chest was obtained. FINDINGS: Heart size normal. There is upper zone redistribution. Slight increase in interstitial prominence since the prior study. No large pleural effusions are seen. There is relative increased opacity seen at the right lung apex and an area of focal consolidation could be present. Again noted are severe degenerative changes both shoulders. XR/XR chest 1V IMPRESSION: 1. Upper zone redistribution with slight increase in interstitial prominence could represent mild CHF. 2. Question of right upper lobe consolidation.
--- NOTE | ~2023-12-29 | CT_ITS ---
EXAMINATION: CT ABDOMEN AND PELVIS WITH CONTRAST CLINICAL INFORMATION: Periumbilical pain COMPARISON: 12/09/2022 TECHNIQUE: Multidetector volumetric images were obtained from the superior aspect of the liver through the pubic symphysis following administration 85 mL of Omnipaque 350 intravenous contrast. Sagittal and coronal reformatted images were obtained on the technologist's workstation. Oral contrast: No This CT examination was performed using dose optimization techniques as appropriate, variously including the following: *Automated exposure control *Adjustment of mA and/or kV according to patient size (this includes techniques or standardized protocols for targeted exams where dose is matched to indication/reason for exam; i.e. extremities or head) *Use of iterative reconstruction technique DLP: 504 mGy-cm FINDINGS: BEAD MAKER: Nonobstructive bowel pattern. Phleboliths. Increased AP diameter to the chest. LUNG BASES: Hyperinflated appearing lungs with mixed groundglass and normal-appearing lung parenchyma. 7 mm right lower lobe pleural-based nodule, 3:27 and question 3 mm subpleural RLL nodule, 8:27. Nonenlarged heart. LIVER, GALLBLADDER, AND BILIARY TREE: The liver is normal in size, shape, and attenuation. No focal hepatic lesion or biliary ductal dilatation is present. The gallbladder has been surgically removed. PANCREAS: Poorly delineated from unopacified bowel loops. SPLEEN: Unremarkable. ADRENAL GLANDS: Unremarkable. KIDNEYS AND URETERS: The kidneys are normal in size, shape, and attenuation. Mildly lobulated right renal contour. Hyperdensities in the right upper pole likely vascular. No hydronephrosis, hydroureter, or calculi seen. No perinephric stranding. BLADDER: Unremarkable. GASTROINTESTINAL TRACT: Study limited without oral contrast. Small hiatal hernia. Stomach is well distended with air-fluid level. Nonobstructive bowel pattern. Unremarkable appendix. No right lower quadrant inflammatory changes. Moderately severe fecal retention. ABDOMINAL WALL: No significant hernia is appreciated. LYMPH NODES: No pathologic lymphadenopathy. VASCULAR: Dense atherosclerotic calcifications nonaneurysmal aorta, iliac and common femoral arteries, possibly hemodynamically significant. Atherosclerotic calcifications extend into the mesenteric and renal arteries, left greater than right. Normal caliber inferior vena cava. Patent portal system. PELVIC VISCERA: Unremarkable. OSSEOUS STRUCTURES: Degenerative changes. CT/CT abdomen pelvis w IV con IMPRESSION: No acute intra-abdominal or pelvic pathology. Moderately severe fecal retention. Atherosclerotic disease, correlate clinically. Possible mosaic attenuation to the lung parenchyma and right lower lobe lung nodules, largest 7 mm. Consider completion chest CT.
--- NOTE | ~2023-12-29 | CT_ITS ---
EXAMINATION: CT CHEST WITHOUT CONTRAST CLINICAL INFORMATION: Rule out pulmonary nodule COMPARISON: Previous chest CT May 2021 and chest x-ray from earlier the same day TECHNIQUE: Multidetector volumetric CT imaging of the chest was done. Axial MIP volume rendering provided. Sagittal and coronal reformatted images were obtained. This CT examination was performed using dose optimization techniques as appropriate, variously including the following: *Automated exposure control *Adjustment of mA and/or kV according to patient size (this includes techniques or standardized protocols for targeted exams where dose is matched to indication/reason for exam; i.e. extremities or head) *Use of iterative reconstruction technique DLP: 259 mGy-cm FINDINGS: LUNGS: Exam is limited due to artifact from respiratory motion. Scattered areas of bronchial wall thickening. Diffuse central areas of increased groundglass attenuation area. Findings are increased compared to May 2021 exam. No discrete nodules seen. MEDIASTINUM: Normal heart size. No pericardial effusion. Small mediastinal lymph nodes. No enlarged lymph nodes. Severe atherosclerotic disease of the aorta. CORONARY ARTERY CALCIFICATION: Moderate to severe. There is also aortic valve calcification. PLEURA: There is no pleural effusion. No pleural mass or thickening. AXILLA: No lymphadenopathy. UPPER ABDOMEN: Treated contrast in both renal collecting systems. Constipation. Severe atherosclerotic disease. OSSEOUS STRUCTURES: Severe inflammatory arthritis at the left shoulder joint soft tissue with marked joint space narrowing, erosive or destructive changes, joint effusion and adjacent soft tissue swelling. Marked joint space narrowing at the right shoulder joint. Findings are suggestive of inflammatory arthritis. Particular rheumatoid arthritis. Multiple rib fractures of varying ages. No definite acute fracture seen. CT/CT chest wo IV con IMPRESSION: Diffuse central areas of increased groundglass attenuation. There are also scattered areas of bronchial wall thickening. Differential would include infectious and inflammatory pneumonitis. Atypical viral pneumonia, interstitial lung disease related to collagen vascular disease or arthritis such as nonspecific interstitial pneumonitis and drug reaction should be considered. Fleischner guidelines were followed.
[2023-12-29 11:56] LABS: Glucose, Whole Blood 225 mg/dL (60-115)
--- NOTE | 2023-12-29 12:09 | ECG_ITS ---
Test Reason : HTN Blood Pressure : / mmHG Vent. Rate : 056 BPM Atrial Rate : 056 BPM P-R Int : 156 ms QRS Dur : 088 ms QT Int : 484 ms P-R-T Axes : 067 026 046 degrees QTc Int : 467 ms Sinus bradycardia Otherwise normal ECG When compared with ECG of 05-FEB-2023 11:57, No significant change was found Referred By: Joleen Duenas Electronically Signed By:KYAW ANGELES MD
--- NOTE | 2023-12-29 12:14 | ED.GENADULT ---
HPI - General Adult General Chief complaint: Nausea/Vomiting/Diarrhea Stated complaint: Diabetic. Not feeling well. Nausea, per ems Time Seen by Provider: 12/29/23 12:00 Source: patient and EMS Mode of arrival: EMS Limitations: other History of Present Illness ED Provider: Dr. Joleen Duenas HPI narrative: Patient comes to the emergency room via ambulance from home. Patient states that he has not been feeling well. Patient is poor historian, selectively answering questions. Patient states that she has been vomiting and having productive cough. Patient states that she has not taking her methadone today. Of note, patient had recent osteomyelitis of the left shoulder couple of months ago. Was recently discharged from short-term rehab to home. Related Data Home Medications ?Medication ?Instructions ?Recorded ?Confirmed albuterol sulfate 90 mcg/actuation 2 puff PO Q4H PRN Respiratory 04/24/20 10/13/23 aerosol inhaler Distress aspirin 81 mg tablet,delayed 81 mg PO DAILY 04/24/20 10/13/23 release atorvastatin 40 mg tablet 40 mg PO DAILY 04/24/20 10/13/23 bupropion HCl 150 mg tablet,12 hr 150 mg PO BID 04/24/20 10/13/23 sustained-release lancets 33 gauge #100 ea 04/24/20 10/13/23 lisinopril 10 mg tablet 10 mg PO DAILY 04/24/20 10/13/23 metformin 1,000 mg tablet 1,000 mg PO BIDWMEAL 04/24/20 10/13/23 omeprazole 20 mg capsule,delayed 20 mg PO DAILY 04/24/20 10/13/23 release gabapentin 600 mg tablet 600 mg PO TID 05/03/20 10/13/23 methadone 10 mg/mL oral 130 mg PO DAILY 05/28/20 10/14/23 concentrate (Methadone Intensol) insulin degludec 100 unit/mL (3 20 unit subcut BEDTIME 10/13/23 10/13/23 mL) subcutaneous pen (Tresiba FlexTouch U-100 insulin) acetaminophen 325 mg capsule 325 mg PO QID PRN 11/02/23 bisacodyl 10 mg rectal suppository 10 mg AK DAILY PRN 11/02/23 dextrose 40 % oral gel 10 g PO Q15M PRN 11/02/23 glucagon 1 mg solution for 1 mg subcut Q20M PRN 11/02/23 injection (Glucagon Emergency Kit) insulin degludec 100 unit/mL (3 100 unit subcut DAILY 11/02/23 mL) subcutaneous pen magnesium hydroxide 400 mg/5 mL 400 mg PO DAILY PRN 11/02/23 oral suspension (Milk of Magnesia) nicotine 14 mg/24 hr daily 1 patch transdermal DAILY 11/02/23 transdermal patch sodium phosphates 19 gram-7 118 ml AK DAILY PRN 11/02/23 gram/118 mL enema (Fleet Enema) vancomycin 500 mg intravenous 500 mg PO QID 11/02/23 solution Previous Rx's ?Medication ?Instructions ?Recorded walker #1 ea 10/11/20 ondansetron 4 mg disintegrating 4 mg PO TID PRN nausea and 12/09/22 tablet vomiting 5 days #10 tabs sulfamethoxazole 800 1 tab PO 3XW 30 days #13 tabs 11/16/23 mg-trimethoprim 160 mg tablet (Bactrim DS) amlodipine 10 mg tablet 10 mg PO DAILY #90 tabs 12/29/23 lisinopril 40 mg tablet 40 mg PO DAILY #90 tabs 12/29/23 Allergies Allergy/AdvReac Type Severity Reaction Status Date / Time No Known Allergies Allergy Verified 12/29/23 11:49 Review of Systems Review of Systems: Constitutional : No Weight loss, No Fever, No Chills, No Night Sweats, No Fatigue, No Malaise ENT/Mouth : No Hearing loss, No Ear Pain, No Nasal Congestion, No Sinus Pain, No Hoarseness, No sore throat, No Rhinorrhea, No Swallowing Difficulty Eyes: No Eye Pain, No Swelling, No Redness, No Foreign Body, No Discharge, No Vision Changes Cardiovascular : No Chest Pain, No SOB, No Dyspnea on Exertion, No Orthopnea, No Edema, No Palpitations Respiratory : Complaining of productive cough, No Wheezing, No Smoke Exposure, No Dyspnea Gastrointestinal : complaining of nausea and vomiting,No Diarrhea, No Constipation, No abdominal Pain, No Hematochezia, No Melena Genitourinary : no irregular bleeding, No Dysuria, No Urinary Frequency, No Hematuria, No Urinary Incontinence, No Urgency, No Flank Pain, No Urinary Flow Changes, No Hesitancy Musculoskeletal : chronic pain of left shoulder No Myalgias, No Joint Swelling Skin : No Skin Lesions, No rash Neuro : No Weakness, No Numbness, No Paresthesias, No Loss of Consciousness, No Dizziness, No Headache Psych : No Anxiety/Panic, No Depression, No SI/HI/AH/VH, states she does not use methadone today Heme/Lymph: No Bruising, No Bleeding,No Lymphadenopathy Endocrine : No Polyuria, No Polydipsia, No Temperature Intolerance FOR[facility]LY [facility] Past Medical History Medical History Diabetic osteomyelitis Below-knee amputation of right lower extremity Osteomyelitis of ankle Charcot foot due to diabetes mellitus Acute hyperglycemia Cellulitis Gastroenteritis Gastritis Constipation Diabetic foot ulcer New onset of congestive heart failure DKA (diabetic ketoacidoses) COVID-19 Dyslipidemia Glaucoma Pulmonary emboli Depression Chronic prescription opiate use Diabetes mellitus Pulmonary nodule Tobacco dependence COPD (chronic obstructive pulmonary disease) Surgical History History of below-knee amputation of right lower extremity (01/13/22) Cataract extraction status, right eye Cataract extraction status, left eye Hx of cholecystectomy Family History Family History Other CVA (cerebral vascular accident) Social History Social History Household Members: Spouse Housing: Apartment Housing Other:: hotel Do you presently have visiting nurse or other home services: Yes ([facility] services) Unable to assess alcohol history related to: Unknown Alcohol intake: never Comment: refused telesitter Patient Tobacco Use Status: Current everyday Tobacco user Tobacco use type: Cigarette Cigarette Packs Per Day: 0.5 Cigarettes Per Day: 5 Years Smoked: 45 Smoked in Last 30 Days: No e-Cigarette/Vaping Use: Currently Using Second Hand Smoke Exposure: No Use of substances other than those prescribed or required for medical reasons: No Substance Use Type: Former Substance User Advance Directives: Yes Advance Directives on File: Yes Advance Directives Date on File: 01/12/22 service: No Current occupational status: disabled Physical Exam ED Vital Signs: Vital Signs - 24 hr 12/29/23 11:46 12/29/23 11:49 12/29/23 12:18 Temperature 98.5 F 98.5 F Pulse Rate 54 52 54 Respiratory Rate 36 H 32 H Blood Pressure 191/59 H 191/59 H 207/77 H Pulse Oximetry 98 Oxygen Delivery Method Room Air Room Air Oxygen Flow Rate 12/29/23 13:36 12/29/23 16:13 12/29/23 17:20 Temperature Pulse Rate 61 57 Respiratory Rate 26 H 26 H Blood Pressure 197/87 H 196/65 H 196/65 H Pulse Oximetry 96 95 Oxygen Delivery Method Nasal Cannula Room Air Oxygen Flow Rate 2 12/29/23 17:53 12/29/23 18:34 12/29/23 19:55 Temperature 98.1 F Pulse Rate 56 57 Respiratory Rate 14 16 Blood Pressure 206/72 H 195/73 H 169/52 H Pulse Oximetry 94 93 Oxygen Delivery Method Room Air Room Air Oxygen Flow Rate BMI result Body Mass Index 23.7 Const Other: Appearance: Alert. Oriented X3. seems weak, uncomfortable, not answering all the questions Eyes: Pupils equal, round and reactive to light. ENT: Pharynx normal. Neck: Normal inspection. Neck supple. No lymph nodes noted. No crepitus CVS: Normal heart rate and rhythm. Pulses normal. Normal S1 and S2 Respiratory: No respiratory distress. Breath sounds normal. No Wheezing. No rales Abdomen: Soft , pain to palpation in the periumbilical area, mild guarding, no rebound Skin: Skin warm and dry. Normal skin color. Normal skin turgor. Extremities: No lower extremity edema. No Lacerations. No Rash Neuro: Oriented X 3. No motor deficit. No sensory deficit. Moving all extremities. No slurred speech. CN 2 through 12 grossly intact Psych: calm, cooperative, normal affect Course Course Course Narrative: - all of patient's labs pending - CT scan pending - patient receiving IV fluids, labetalol, patient already received 4 mg of Zofran in the ambulance, he was getting prochlorperazine 10 mg IV push Medications Administered Discontinued Medications Generic Name Dose Route Start Last Admin Trade Name Freq PRN Reason Stop Dose Admin Amlodipine Besylate 10 mg 12/29/23 17:33 12/29/23 18:34 Amlodipine Besylate 10 Mg Tablet PO 12/29/23 17:34 10 mg ONCE ONE Administration Protocol Sodium Chloride 1,000 mls @ 999 mls/hr 12/29/23 12:11 12/29/23 14:02 Ns IVCONT 12/29/23 13:11 Infused .Q1H1M ONE Infusion Iohexol 100 ml 12/29/23 14:41 12/29/23 14:42 Iohexol 350 Mg/Ml 100 Ml Infus..Btl IV 12/29/23 14:42 85 ml ONCE ONE Administration Labetalol HCl 10 mg 12/29/23 12:11 12/29/23 12:18 Labetalol Hcl 100 Mg/20 Ml Vial IVPUSH 12/29/23 12:12 10 mg ONCE ONE Administration Lisinopril 40 mg 12/29/23 17:03 12/29/23 17:20 Lisinopril 40 Mg Tablet PO 12/29/23 17:04 40 mg ONCE ONE Administration Protocol Prochlorperazine Edisylate 10 mg 12/29/23 12:11 12/29/23 12:18 Prochlorperazine Edisylate 10 Mg/2 Ml Vial IVPUSH 12/29/23 12:12 10 mg ONCE ONE Administration Medical Decision Making Medical Decision Making MDM Narrative: - my interpretation of labs, hematology at baseline, chronically anemic. Patient's chemistry came at baseline, troponin negative, lipase normal, urinalysis negative for UTI, positive for fentanyl and methadone. Ethanol level negative. Serology negative for COVID and influenza - patient's blood pressure has been above 200, patient was giving labetalol, lisinopril, no changes in blood pressure, patient was given 10 mg of amlodipine. 0- My interpretation of CT scan of the abdomen: No obvious abnormality. Radiology report: Possible lung nodule, a CT scan of the lungs have urine ordered - CT scan of the chest does not mention any nodules. It had to be done without contrast a 2nd time because patient had already contrast done the 1st time. Patient instructed to follow-up with the primary care physician, they may want to repeated in a few weeks/ months with contrast. - Blood pressure improved, no 69/52, patient states that she feels well ready for discharge Differential Diagnosis Differential Diagnoses: The differential diagnosis associated with the presentation includes ( hypertension, viral illness, pulmonary nodule) Admission/Observation Consideration of admission/observation: Escalation of care including admission/observation considered ( given patient's vital signs, labs and radiology reports, admission/ observation was considered) Lab Data [facility] Lab Attestation statement: I reviewed the patient's lab results. 12/29/23 13:05 12/29/23 13:21 Labs: Lab Results 12/29/23 12/29/23 12/29/23 Range/Units 11:53 13:05 13:20 WBC 9.0 (4.8-10.8) X10*3/uL RBC 3.55 L (4.20-5.50) X10*6/uL Hgb 9.9 L (12.0-16.0) g/dl Hct 30.1 L (37.0-47.0) % MCV 84.8 (80.0-98.0) fL MCH 27.9 (27.0-33.0) pg MCHC 32.9 (31.0-35.0) g/dl RDW 16.0 (11.0-16.0) % Plt Count 257 D (160-400) X10*3/uL MPV 10.8 (9.4-12.3) fL Immature Gran % (Auto) 0.4 (0.0-0.4) % Neut % (Auto) 85.0 H (45-73) % Lymph % (Auto) 10.1 L (20-40) % Metcalfe % (Auto) 4.1 (2-11) % Eos % (Auto) 0.2 (0-4) % Baso % (Auto) 0.2 (0-2) % Lymph # (Auto) 0.9 L (1.2-4.9) X10*3/uL Metcalfe # (Auto) 0.4 (0.1-1.2) X10*3/uL Eos # (Auto) 0.0 (0.0-0.4) X10*3/uL Baso # (Auto) 0.0 (0.0-0.2) X10*3/uL Abs Immat Gran (auto) 0.04 H (0.00-0.03) X10*3/uL Absolute Neuts (auto) 7.6 (2.0-8.3) x10*3/uL Absolute Nucleated RBC 0.000 (0.0-0.012) X10*3/uL Nucleated RBC % (auto) 0.0 (0.0-0.2) /100WBC PT (11.1-13.3) SEC INR (0.9-1.1) Sodium (135-145) mmol/L Potassium (3.3-5.1) mmol/L Chloride (96-108) mmol/L Carbon Dioxide (22-29) mmol/L Anion Gap (12-20) BUN (9-16) mg/dL Creatinine (0.5-1.4) mg/dL Estim Creat Clear Calc Estimated GFR POC Glucose 225 H (60-115) mg/dL Random Glucose (60-115) mg/dL Lactic Acid (0.5-2.0) mmol/L Calcium (8.4-10.2) mg/dL Magnesium (1.6-2.6) mg/dL Total Bilirubin (0.0-1.0) mg/dL Direct Bilirubin (0.0-0.5) mg/dL AST (5-31) U/L ALT (0-31) U/L Alkaline Phosphatase (39-117) U/L Troponin I High Sens < 2.7 (<3.5-17.0) ng/L Total Protein (6.5-8.0) g/dL Albumin (3.5-5.0) g/dL Lipase (8-78) U/L Urine Color Yellow Urine Appearance Clear Urine pH 5.5 (5.0-9.0) Ur Specific Wolford 1.010 (1.005-1.025) Urine Protein 30 (1+) H (Neg-Trace) mg/dL Urine Glucose (UA) 500 H (Negative) mg/dL Urine Ketones Trace (Negative) mg/dL Urine Blood Trace H (Negative) Urine Nitrite Negative (Negative) Ur Leukocyte Esterase Negative (Negative) Urine RBC 0-2 (0-2) /HPF Urine WBC 0-5 (0-5) /HPF Ur Squamous Epith Cells 0-2 (0-2) /HPF Urine Bacteria None Seen (None Seen) Hyaline Casts 0-2 (0-2) /LPF Urine Opiates Screen Not Detected (Not Detect) Ur Buprenorphine Scrn Not Detected (Not Detect) ng/mL Ur Oxycodone Screen Not Detected (Not Detect) ng/mL Urine Methadone Screen Positive H (Not Detect) ng/mL Urine Fentanyl Screen POSITIVE H (Not Detect) Ur Barbiturates Screen Not Detected (Not Detect) Ur Phencyclidine Scrn Not Detected (Not Detect) Ur Amphetamines Screen Not Detected (Not Detect) U Benzodiazepines Scrn Not Detected (Not Detect) Urine Cocaine Screen Not Detected (Not Detect) U Marijuana (THC) Screen Not Detected (Not Detect) Ethyl Alcohol mg/dL COVID-19 (SONG) (Negative) COVID-19 Clin Com Influenza Type A (RUFUS) (Negative) Influenza Type B (RUFUS) (Negative) Influenza A & B Note 12/29/23 Range/Units 13:21 WBC (4.8-10.8) X10*3/uL RBC (4.20-5.50) X10*6/uL Hgb (12.0-16.0) g/dl Hct (37.0-47.0) % MCV (80.0-98.0) fL MCH (27.0-33.0) pg MCHC (31.0-35.0) g/dl RDW (11.0-16.0) % Plt Count (160-400) X10*3/uL MPV (9.4-12.3) fL Immature Gran % (Auto) (0.0-0.4) % Neut % (Auto) (45-73) % Lymph % (Auto) (20-40) % Metcalfe % (Auto) (2-11) % Eos % (Auto) (0-4) % Baso % (Auto) (0-2) % Lymph # (Auto) (1.2-4.9) X10*3/uL Metcalfe # (Auto) (0.1-1.2) X10*3/uL Eos # (Auto) (0.0-0.4) X10*3/uL Baso # (Auto) (0.0-0.2) X10*3/uL Abs Immat Gran (auto) (0.00-0.03) X10*3/uL Absolute Neuts (auto) (2.0-8.3) x10*3/uL Absolute Nucleated RBC (0.0-0.012) X10*3/uL Nucleated RBC % (auto) (0.0-0.2) /100WBC PT 12.8 (11.1-13.3) SEC INR 1.1 (0.9-1.1) Sodium 137 (135-145) mmol/L Potassium 4.5 (3.3-5.1) mmol/L Chloride 108 (96-108) mmol/L Carbon Dioxide 19 L (22-29) mmol/L Anion Gap 15 (12-20) BUN 19 H (9-16) mg/dL Creatinine 0.85 (0.5-1.4) mg/dL Estim Creat Clear Calc 53.6 Estimated GFR > 60 POC Glucose (60-115) mg/dL Random Glucose 239 H (60-115) mg/dL Lactic Acid 1.0 (0.5-2.0) mmol/L Calcium 9.6 (8.4-10.2) mg/dL Magnesium 1.7 (1.6-2.6) mg/dL Total Bilirubin 0.2 (0.0-1.0) mg/dL Direct Bilirubin < 0.2 (0.0-0.5) mg/dL AST 9 (5-31) U/L ALT 5 (0-31) U/L Alkaline Phosphatase 98 (39-117) U/L Troponin I High Sens (<3.5-17.0) ng/L Total Protein 9.0 H (6.5-8.0) g/dL Albumin 4.0 (3.5-5.0) g/dL Lipase 34 (8-78) U/L Urine Color Urine Appearance Urine pH (5.0-9.0) Ur Specific Wolford (1.005-1.025) Urine Protein (Neg-Trace) mg/dL Urine Glucose (UA) (Negative) mg/dL Urine Ketones (Negative) mg/dL Urine Blood (Negative) Urine Nitrite (Negative) Ur Leukocyte Esterase (Negative) Urine RBC (0-2) /HPF Urine WBC (0-5) /HPF Ur Squamous Epith Cells (0-2) /HPF Urine Bacteria (None Seen) Hyaline Casts (0-2) /LPF Urine Opiates Screen (Not Detect) Ur Buprenorphine Scrn (Not Detect) ng/mL Ur Oxycodone Screen (Not Detect) ng/mL Urine Methadone Screen (Not Detect) ng/mL Urine Fentanyl Screen (Not Detect) Ur Barbiturates Screen (Not Detect) Ur Phencyclidine Scrn (Not Detect) Ur Amphetamines Screen (Not Detect) U Benzodiazepines Scrn (Not Detect) Urine Cocaine Screen (Not Detect) U Marijuana (THC) Screen (Not Detect) Ethyl Alcohol < 10 mg/dL COVID-19 (SONG) Negative (Negative) COVID-19 Clin Com See Note Influenza Type A (RUFUS) Negative (Negative) Influenza Type B (RUFUS) Negative (Negative) Influenza A & B Note See Note Independent Interpretation I performed an independent interpretation of an: EKG ( my interpretation of EKG: Normal sinus rhythm, heart rate 54, no ST segment depression or elevation, no T-wave inversion, QTC 467) Critical Care Time Critical Care Time Critical Care Time: Yes Total Critical Care Time: 75 Attestation: I have personally provided critical care time. Time includes review of lab data, radiology results, discussion with consultants, and monitoring for potential decompensation. Intervention performed as documented. Discharge Plan Discharge Clinical Impression: Hypertension, Fentanyl adverse reaction Patient Disposition: Home, Self-Care Instructions: Hypertension (ED) Additional Instructions: Please follow-up with your primary care physician tomorrow. If you have any worsening or new symptoms, please return to the emergency room or call 911 Prescriptions: New lisinopril 40 mg tablet 40 mg PO DAILY Qty: 90 0RF amlodipine 10 mg tablet 10 mg PO DAILY Qty: 90 0RF No Action (DME) walker Misc See Rx Instructions .ROUTE .MEDSUPPLY Qty: 1 0RF Rx Instructions: As directed methadone [Methadone Intensol] 10 mg/mL Concentrate 130 mg PO DAILY ondansetron 4 mg tablet,disintegrating 4 mg PO TID PRN (Reason: nausea and vomiting) 5 Days Qty: 10 0RF insulin degludec [Tresiba FlexTouch U-100] 100 unit/mL (3 mL) insulin pen 20 unit subcut BEDTIME gabapentin 600 mg tablet 600 mg PO TID (DME) lancets 33 gauge misc See Rx Instructions Not Applicable TID Qty: 100 Rx Instructions: As directed albuterol sulfate 90 mcg/actuation HFA aerosol inhaler 2 puff PO Q4H PRN (Reason: Respiratory Distress) lisinopril 10 mg tablet 10 mg PO DAILY omeprazole 20 mg capsule,delayed release(DR/EC) 20 mg PO DAILY metformin 1,000 mg tablet 1,000 mg PO BIDWMEAL aspirin 81 mg tablet,delayed release (DR/EC) 81 mg PO DAILY bupropion HCl 150 mg tablet sustained-release 12 hr 150 mg PO BID atorvastatin 40 mg tablet 40 mg PO DAILY vancomycin 500 mg recon soln 500 mg PO QID nicotine 14 mg/24 hr patch 24 hour 1 patch transdermal DAILY insulin degludec 100 unit/mL (3 mL) insulin pen 100 unit subcut DAILY Glucagon Emergency Kit (human) 1 mg recon soln 1 mg subcut Q20M PRN Rx Instructions: until target blood sugar attained dextrose 40 % gel 10 g PO Q15M PRN Rx Instructions: until symptoms of low blood sugar are controlled Fleet Enema 19-7 gram/118 mL enema 118 ml AK DAILY PRN magnesium hydroxide [Milk of Magnesia] 400 mg/5 mL suspension 400 mg PO DAILY PRN bisacodyl 10 mg suppository 10 mg AK DAILY PRN acetaminophen 325 mg capsule 325 mg PO QID PRN sulfamethoxazole-trimethoprim [Bactrim DS] 800-160 mg tablet 1 tab PO 3XW 30 Days Qty: 13 5RF Print Language: Slovenian
[2023-12-29] MEDS: Labetalol HCL 100 MG/20 ML VIAL 10 MG IVPUSH (12:18)
[2023-12-29] MEDS: Prochlorperazine Edisylate 10 MG/2 ML VIAL IVPUSH (12:18)
[2023-12-29] MEDS: 0.9 % Sodium Chloride 1,000 ML 999 ML IVCONT (12:20)
[2023-12-29 13:08] LABS: MANUAL DIFF FLAG NO
[2023-12-29 13:25] LABS: Basophils Percent Auto 0.2 % (0-2); Eosinophils Percent Auto 0.2 % (0-4); Hematocrit 30.1 % (37.0-47.0); Hemoglobin 9.9 g/dl (12.0-16.0); Imm Gran Abs Auto 0.04 X10*3/uL (0.00-0.03); Imm Gran Pct Auto 0.4 % (0.0-0.4); Lymphocytes Absolute Auto 0.9 X10*3/uL (1.2-4.9); Lymphocytes Percent Auto 10.1 % (20-40); Mean Corpuscular HGB Conc 32.9 g/dl (31.0-35.0); Mean Corpuscular Hemoglobin 27.9 pg (27.0-33.0); Mean Corpuscular Volume 84.8 fL (80.0-98.0); Mean Platelet Volume 10.8 fL (9.4-12.3); Monocytes Absolute Auto 0.4 X10*3/uL (0.1-1.2); Monocytes Percent Auto 4.1 % (2-11); Neutrophils Absolute Auto 7.6 x10*3/uL (2.0-8.3); Platelet Count 257 X10*3/uL (160-400); Red Blood Count 3.55 X10*6/uL (4.20-5.50)
[2023-12-29 13:30] LABS: Troponin-I High Sensitivity < 2.7 ng/L (<3.5-17.0)
[2023-12-29 13:33] LABS: Appearance Urine Clear; Color Urine Yellow; Glucose Urine UA 500 mg/dL (Negative); Leukocyte Esterase Urine Negative (Negative); Nitrite Urine Negative (Negative); PH 5.5 (5.0-9.0); UMIC TRIGGER UACC YES; Urine Blood Trace (Negative); Urine Ketones Trace mg/dL (Negative); Urine Protein 30 (1+) mg/dL (Neg-Trace)
[2023-12-29 13:37] LABS: INTERNATIONAL NORM RATIO 1.1 (0.9-1.1); Prothrombin Time 12.8 SEC (11.1-13.3)
[2023-12-29 13:46] LABS: Amphetamine Screen Urine Not Detected (Not Detect); Barbiturates, Urine Not Detected (Not Detect); Benzodiazepines Screen Urine Not Detected (Not Detect); Buprenorphine Scr Not Detected (Not Detect); Cannabinoid Screen Urine Not Detected (Not Detect); Cocaine Screen Urine Not Detected (Not Detect); Fentanyl, urine POSITIVE (Not Detect); Methadone Screen, Urine Positive (Not Detect); Opiate Screen Urine Not Detected (Not Detect); Oxycodone Screen Urine Not Detected (Not Detect); Phencyclidine Screen Urine Not Detected (Not Detect)
[2023-12-29 13:54] LABS: Alanine Aminotransferase 5 U/L (0-31); Alkaline Phosphatase 98 U/L (39-117); Anion Gap 15 (12-20); Aspartate Amino Transferase 9 U/L (5-31); Bilirubin Direct < 0.2 mg/dL (0.0-0.5); Bilirubin Total 0.2 mg/dL (0.0-1.0); Blood Urea Nitrogen 19 mg/dL (9-16); Calcium 9.6 mg/dL (8.4-10.2); Carbon Dioxide 19 mmol/L (22-29); Chloride 108 mmol/L (96-108); Creatinine Clr Calc Pharmacy 53.6; Estimated Glomerular Filt Rate > 60; Ethanol < 10 mg/dL; Glucose Random 239 mg/dL (60-115); Lipase 34 U/L (8-78); Magnesium 1.7 mg/dL (1.6-2.6); Potassium 4.5 mmol/L (3.3-5.1); Sodium 137 mmol/L (135-145)
[2023-12-29 13:56] LABS: COVID-19 Test Negative (Negative); IDNOW Serial# 152EDE1D
[2023-12-29 13:57] LABS: Bacteria Urine None Seen (None Seen); Hyaline Casts Urine 0-2 /LPF (0-2); RBC Urine 0-2 /HPF (0-2); Squamous Epithelial Cell Urine 0-2 /HPF (0-2); WBC Urine 0-5 /HPF (0-5)
[2023-12-29 13:58] LABS: IDNOW Serial# 08D9AD1C; Influenza A Negative (Negative); Influenza B2 Negative (Negative)
[2023-12-29] MEDS: iohexoL 350 MG/ML 100 ML INFUS..BTL IV (14:42)
--- NOTE | 2023-12-29 15:12 | HE.PHANOTE ---
METHADONE Dose: 130mg per Melvina RN at [facility]. Last dosed on 12/29/23.
[2023-12-29] MEDS: lisinopriL 40 MG TABLET PO (17:20)
[2023-12-29] MEDS: amLODIPine Besylate 10 MG TABLET PO (18:34)
== END 2023-12-29 20:29 | disposition home or self-care (01) ==
PROVIDERS: Emergency Provider Emergency Medicine; PCP Internal Medicine
DX: R11.2 Nausea with vomiting, unspecified (principal); I10 Essential (primary) hypertension; F11.10 Opioid abuse, uncomplicated; R11.10 Vomiting, unspecified; R05.9 Cough, unspecified; F17.210 Nicotine dependence, cigarettes, uncomplicated; Z79.899 Other long term (current) drug therapy
CPT/HCPCS: 36415; 71045; 71250; 74177; 80048; 80076; 80307; 81001; 82947; 83605; 83690; 83735; 84484; 85025; 85610; 87040; 87502; 87635; 93005; 96361; 96374; 96375; 99284; 99285; J0737; J1920; Q9967

== ENCOUNTER → 2023-12-29 12:09 | Outpatient (BNV) | payer MEDICARE, MEDICAID, SELFPAY | PROVIDERS: Emergency Provider Emergency Medicine; PCP Internal Medicine; Visit Provider Internal Medicine Cardiovascular Disease | DX: I10 Essential (primary) hypertension (principal); R00.1 Bradycardia, unspecified | CPT/HCPCS: 93010 ==

== ENCOUNTER 2023-12-31 15:13 | Inpatient (IN) | payer MEDICARE, MEDICAID, SELFPAY ==
[2023-12-31] VITALS (7 sets, daily range): BP systolic 114–134; BP diastolic 63–72; PULSE 70–83; RESP 14–24; TEMP 36.5; O2SAT 87–96; BMI 24.8
--- NOTE | ~2023-12-31 | NM_ITS ---
PULMONARY PERFUSION ONLY STUDY: CLINICAL INDICATION: History of PE. Low O2 saturation. Elevated d-dimer. PROCEDURE: Following the intravenous administration of 4.0 millicuries technetium 99m MAA, images of the chest were obtained in multiple projections using a gamma scintiphotographic camera. COMPARISON: Chest radiograph done on 12/31/2023. PERFUSION IMAGES: At least one segmental perfusion defect is seen at right upper lobe of the lung. Heterogeneous radiotracer distribution is present within the remainder of the lung mckeon bilaterally. Patchy decreased tracer avidity is also noted at both lower lobes. When correlating with the chest radiograph, multilobar bilateral airspace disease is noted at right upper lobe and both lower lobe. NM/NM pul perfusion IMPRESSION: Based on perfusion only modified PIOPED 2 criteria, the findings are considered nondiagnostic for pulmonary thromboembolism. Alternative imaging modality including CTA scan of the chest with intravenous contrast per PE protocol is recommended for further clarification.
--- NOTE | ~2023-12-31 | XR_ITS ---
EXAMINATION: XR CHEST CLINICAL INFORMATION: Wheezing. COMPARISON: Chest radiograph dated 12/29/2023. TECHNIQUE: 2 views of the chest were obtained. FINDINGS: The heart is normal in size. Again seen is streaky opacity within the right upper lobe. There is a left lower lobe airspace opacity, new from prior examination. There is no pneumothorax. No pleural effusion. There are severe degenerative changes of the glenohumeral joints. XR/XR chest 2V IMPRESSION: Again seen is streaky right upper lobe airspace disease. There is new left lower lobe airspace disease. Multifocal infection is suspected.
--- NOTE | ~2023-12-31 | CT_ITS ---
EXAMINATION: CT ABDOMEN AND PELVIS WITHOUT CONTRAST CLINICAL INFORMATION: Epigastric abdominal pain COMPARISON: CT abdomen from 12/29/2023 6 TECHNIQUE: Multidetector volumetric imaging was performed from the superior aspect of the liver through the pubic symphysis. Sagittal and coronal reformatted images were obtained on the technologist's workstation. This CT examination was performed using dose optimization techniques as appropriate, variously including the following: *Automated exposure control *Adjustment of mA and/or kV according to patient size (this includes techniques or standardized protocols for targeted exams where dose is matched to indication/reason for exam; i.e. extremities or head) *Use of iterative reconstruction technique DLP: 433 mGy-cm FINDINGS: LUNG BASES: Redemonstration of extensive reticular and interstitial lung markings with bronchial thickening and groundglass opacities throughout the visualized bilateral lung mckeon, increased from prior imaging. No pneumothorax. No large pleural effusion. Elevation right hemidiaphragm. LIVER, GALLBLADDER, AND BILIARY TREE: Liver is borderline enlarged measuring 17.3 cm. Left-sided pneumobilia, unclear etiology. No focal hepatic lesion or biliary ductal dilatation is present. The gallbladder is surgically absent. PANCREAS: Fatty atrophy of the pancreas. SPLEEN: Unremarkable. ADRENAL GLANDS: Unremarkable. KIDNEYS AND URETERS: The kidneys are normal in size, shape, and attenuation. No hydronephrosis, hydroureter, or calculi seen. No perinephric stranding. BLADDER: Urinary bladder is well-distended measuring up to 10.7 cm in the craniocaudad dimension. GASTROINTESTINAL TRACT: Small hiatal hernia. Mild to moderate fecal loading throughout the colon. The small and large bowel are unremarkable. The appendix is unremarkable. ABDOMINAL WALL: Fat filled umbilical hernia. Small fat filled right inguinal hernia. LYMPH NODES: A few mildly prominent bilateral inguinal mesenteric and periaortic lymph nodes are noted the largest in the right inguinal region measuring 1.1 cm in short axis, not enlarged per size criteria. VASCULAR: Abdominal aorta is nonaneurysmal. Atherosclerotic calcifications of the abdominal aorta and its branches. Atherosclerotic calcifications with likely element of narrowing involving the celiac and superior mesenteric artery PELVIC VISCERA: Anteverted uterus with calcifications throughout the fundus which may be vascular in etiology versus underlying calcified uterine fibroids. OSSEOUS STRUCTURES: Osteopenia. Grade 1 anterolisthesis of L4 and L5. Multilevel degenerative changes of the thoracolumbar lumbosacral spine. CT/CT abdomen pelvis wo IV con IMPRESSION: 1. Redemonstration of extensive reticular and interstitial lung markings with bronchial thickening and groundglass opacities throughout the visualized bilateral lung mckeon, increased from prior imaging. 2. Liver is borderline enlarged measuring 17.3 cm. 3. Left-sided hepatic pneumobilia, unclear etiology possibly postoperative. 4. Status post cholecystectomy. 5. Urinary bladder is well-distended measuring up to 10.7 cm in the craniocaudad dimension. 6. Small hiatal hernia. 7. A few mildly prominent bilateral inguinal mesenteric and periaortic lymph nodes are noted the largest in the right inguinal region measuring 1.1 cm in short axis, not enlarged per size criteria. 8. Osteomeatal atherosclerotic calcifications but likely an element of narrowing involving the celiac and superior mesenteric artery. 9. Osteopenia. Grade 1 anterolisthesis of L4 and L5.
--- NOTE | 2023-12-31 15:30 | ECG_ITS ---
Test Reason : SOB Blood Pressure : / mmHG Vent. Rate : 076 BPM Atrial Rate : 076 BPM P-R Int : 134 ms QRS Dur : 082 ms QT Int : 462 ms P-R-T Axes : 052 019 052 degrees QTc Int : 519 ms Normal sinus rhythm Minimal voltage criteria for LVH, may be normal variant ( David product ) Nonspecific ST abnormality Prolonged QT Abnormal ECG When compared with ECG of 29-DEC-2023 12:16, QT has lengthened Referred By: Generic ED Physician Electronically Signed By:KYAW ANGELES MD
[2023-12-31 15:31] LABS: Glucose, Whole Blood 320 mg/dL (60-115)
[2023-12-31 15:58] LABS: VBG HCO3 18 mmol/L (22-26); VBG pCO2 34 mmHg; VBG pH 7.33 (7.32-7.43); VBG pO2 60 mmHg
[2023-12-31 16:02] LABS: Hematocrit 33.3 % (37.0-47.0); Hemoglobin 11.3 g/dl (12.0-16.0); Mean Corpuscular HGB Conc 33.9 g/dl (31.0-35.0); Mean Corpuscular Hemoglobin 28.1 pg (27.0-33.0); Mean Corpuscular Volume 82.8 fL (80.0-98.0); Mean Platelet Volume 10.9 fL (9.4-12.3); Platelet Count 397 X10*3/uL (160-400); Red Blood Count 4.02 X10*6/uL (4.20-5.50); Red Cell Distribution Width 15.7 % (11.0-16.0); White Blood Count 23.8 X10*3/uL (4.8-10.8)
[2023-12-31 16:11] LABS: Venous Blood Gas Refer to POC result
--- NOTE | 2023-12-31 16:14 | ED.ABDPAIN ---
HPI - Abdominal Pain General Chief Complaint: Abdominal Pain Stated Complaint: not feeling well, abd pain Time Seen by Provider: 12/31/23 16:04 Source: EMS, RN notes reviewed and old records reviewed Mode of arrival: EMS Limitations: no limitations History of Present Illness ED Provider: DAVE SUAREZ PA-C HPI narrative: 63-year-old female with past medical history significant for COPD, tobacco dependence, PE on Xarelto, PAD, type 2 diabetes presents to the ED today for evaluation of epigastric abdominal pain that began yesterday. Patient is overall poor historian and is selectively answering questions. Her abdominal pain has been constant since onset yesterday. Denies radiation. Reports multiple episodes of vomiting. Additionally she tells me she has not had a bowel movement in a few days which is typical for her. Does not take bowel regimen. Denies etoh consumption. Denies ilicit substance use. Per EMS, patient was satting 84% on room air initially. She was placed on 3 L nasal cannula with O2 improvement to 92%. She was noted to have wheezes throughout her lungs. Her POC on arrival was 320. She was seen in our ED 2 days ago with similar symptoms. Related Data Home Medications ?Medication ?Instructions ?Recorded ?Confirmed albuterol sulfate 90 mcg/actuation 2 puff PO Q4H PRN Respiratory 04/24/20 10/13/23 aerosol inhaler Distress aspirin 81 mg tablet,delayed 81 mg PO DAILY 04/24/20 10/13/23 release atorvastatin 40 mg tablet 40 mg PO DAILY 04/24/20 12/31/23 bupropion HCl 150 mg tablet,12 hr 150 mg PO BID 04/24/20 12/31/23 sustained-release lancets 33 gauge #100 ea 04/24/20 10/13/23 lisinopril 10 mg tablet 10 mg PO DAILY 04/24/20 12/31/23 metformin 1,000 mg tablet 1,000 mg PO BIDWMEAL 04/24/20 12/31/23 omeprazole 20 mg capsule,delayed 20 mg PO DAILY 04/24/20 12/31/23 release gabapentin 600 mg tablet 600 mg PO TID 05/03/20 12/31/23 methadone 10 mg/mL oral 130 mg PO DAILY 05/28/20 10/14/23 concentrate (Methadone Intensol) insulin degludec 100 unit/mL (3 20 unit subcut BEDTIME 10/13/23 10/13/23 mL) subcutaneous pen (Tresiba FlexTouch U-100 insulin) acetaminophen 325 mg capsule 325 mg PO QID PRN 11/02/23 bisacodyl 10 mg rectal suppository 10 mg SC DAILY PRN 11/02/23 dextrose 40 % oral gel 10 g PO Q15M PRN 11/02/23 glucagon 1 mg solution for 1 mg subcut Q20M PRN 11/02/23 injection (Glucagon Emergency Kit) insulin degludec 100 unit/mL (3 100 unit subcut DAILY 11/02/23 mL) subcutaneous pen magnesium hydroxide 400 mg/5 mL 400 mg PO DAILY PRN 11/02/23 oral suspension (Milk of Magnesia) nicotine 14 mg/24 hr daily 1 patch transdermal DAILY 11/02/23 transdermal patch sodium phosphates 19 gram-7 118 ml SC DAILY PRN 11/02/23 gram/118 mL enema (Fleet Enema) vancomycin 500 mg intravenous 500 mg PO QID 11/02/23 solution insulin aspart (niacinamide) 0 sliding scale dose subcut QIDACHS 12/31/23 12/31/23 (U-100) 100 unit/mL subcutaneous solution (Fiasp U-100 Insulin) metoprolol succinate 25 mg 25 mg PO DAILY 12/31/23 12/31/23 tablet,extended release 24 hr mirtazapine 7.5 mg tablet 7.5 mg PO BEDTIME 12/31/23 12/31/23 Previous Rx's ?Medication ?Instructions ?Recorded walker #1 ea 10/11/20 ondansetron 4 mg disintegrating 4 mg PO TID PRN nausea and 12/09/22 tablet vomiting 5 days #10 tabs sulfamethoxazole 800 1 tab PO 3XW 30 days #13 tabs 11/16/23 mg-trimethoprim 160 mg tablet (Bactrim DS) amlodipine 10 mg tablet 10 mg PO DAILY #90 tabs 12/29/23 lisinopril 40 mg tablet 40 mg PO DAILY #90 tabs 12/29/23 Allergies Allergy/AdvReac Type Severity Reaction Status Date / Time No Known Allergies Allergy Verified 12/31/23 15:29 Review of Systems Review of Systems Constitutional: No fever, chills, fatigue, night sweats, weight changes ENT/Mouth: No ear pain, hearing loss, nasal congestion, sinus pain, rhinorrhea, sore throat Eyes: No eye pain, swelling, redness, vision changes, discharge Cardio: No chest pain, palpitations, MÉNDEZ, orthopnea, peripheral edema Pulm: No SOB, cough, sputum, wheezing, dyspnea, hemoptysis GI: No hematemesis, diarrhea, constipation, hematochezia, melena, +epigastric pain, +nausea, +vomiting : No irregular bleeding, dysuria, frequency, urgency, hesitancy, hematuria, flank pain, urinary flow changes, urinary incontinence or retention MSK: No back pain, neck pain, joint pain, myalgias Skin: No lesions, rashes Neuro: No weakness, numbness, paresthesias, LOC, dizziness, headache Psych: No anxiety/panic, depression, SI/HI, AH/VH All other systems reviewed and are negative. [facility] Past Medical History Attestation statement: The following information was validated with the patient. Source: old records reviewed and nursing notes reviewed Medical History Diabetic osteomyelitis Below-knee amputation of right lower extremity Osteomyelitis of ankle Charcot foot due to diabetes mellitus Acute hyperglycemia Cellulitis Gastroenteritis Gastritis Constipation Diabetic foot ulcer New onset of congestive heart failure DKA (diabetic ketoacidoses) COVID-19 Dyslipidemia Glaucoma Pulmonary emboli Depression Chronic prescription opiate use Diabetes mellitus Pulmonary nodule Tobacco dependence COPD (chronic obstructive pulmonary disease) Surgical History History of below-knee amputation of right lower extremity (01/13/22) Cataract extraction status, right eye Cataract extraction status, left eye Hx of cholecystectomy Family History Family History Other CVA (cerebral vascular accident) Social History Social History Household Members: Spouse Housing: Apartment Housing Other:: hotel Do you presently have visiting nurse or other home services: Yes (VNA services) Unable to assess alcohol history related to: Unknown Alcohol intake: never Comment: refused telesitter Patient Tobacco Use Status: Current everyday Tobacco user Tobacco use type: Cigarette Cigarette Packs Per Day: 0.5 Cigarettes Per Day: 5 Years Smoked: 45 Smoked in Last 30 Days: Yes e-Cigarette/Vaping Use: Currently Using Second Hand Smoke Exposure: No Use of substances other than those prescribed or required for medical reasons: No Substance Use Type: Former Substance User Advance Directives: Yes Advance Directives on File: Yes Advance Directives Date on File: 01/12/22 Do you have a plan to hurt others: No Plan service: No Current occupational status: disabled Physical Exam ED Vital Signs: Vital Signs - 24 hr 12/31/23 15:24 12/31/23 17:10 12/31/23 18:56 Temperature 97.7 F Pulse Rate 83 75 70 Respiratory Rate 18 24 H 18 Blood Pressure 130/72 121/64 Pulse Oximetry 91 L 93 Oxygen Delivery Method Nasal Cannula Nasal Cannula Oxygen Flow Rate 2 BMI result Body Mass Index 24.8 Patient is satting 91% on 2 L nasal cannula. Vitals otherwise WNL. Afebrile. Const Other: Patient somnolent appearing, responsive to verbal stimuli General: no acute distress and ill appearing Orientation/consciousness: patient oriented x3 Limitations: no limitations HENMT Head: Yes normal to inspection Eyes General: appearance normal, both eyes and all related structures Pupils: Equal, round and reactive pupils present Neck Neck: Yes normal visual inspection, Yes full ROM, Yes no lymphadenopathy, Yes no meningeal signs and Yes no JVD Chest Chest palpation & inspection: normal inspection of the chest and normal palpation of entire chest wall Resp Other: No respiratory distress noted. No tripoding. No increased effort of breathing. On auscultation, diffuse rhonchi. Cardio Rate: regular rate Rhythm: regular rhythm GI Other: Abdomen soft, nondistended, tender to palpation of the epigastric region without rebound tenderness or guarding. Hyperactive bowel sounds. General: Yes no CVA tenderness Back/Spine/Pelvis Back: no CVA tenderness Skin General skin exam: no rashes or lesions noted Neuro General: patient oriented x3 and no meningeal signs Cranial nerves: Yes Equal, round and reactive pupils present Extrem General: Yes normal to inspection Course Course Course Narrative: 1655-- CBC with leukocytosis to 23.8 with left shift. This is quite an increase from visit to our ED 3 days ago. At that time WBC was noted to be 9. Will repeat CBC to ensure this is an accurate reading. Chronic normocytic anemia improved when compared to priors. Chemistry showing hyponatremia to 132. AUBRIE with creatinine 1.85 and BUN 32. IV fluids ordered. Glucose 354. BNP elevated to 282, there is low suspicion for acute CHF. She tested negative for COVID, flu, RSV. > ED bronch protocol ordered along with IV Solu-Medrol > urinalysis, utox, lactic, blood cultures, chest x-ray and CT abdomen/pelvis pending. > she does have a history of pulmonary emboli, previously on Xarelto however tells me that she is no longer taking this. Given she is hypoxic and does not typically require oxygen, will add on D-dimer to assess for pulmonary emboli, although less likely. 1901-- chest x-ray shows redemonstration of streaky right upper lobe airspace disease with new left lower lobe airspace disease with multifocal infection suspected. I did review CTA chest obtained 2 days ago on December 28 which shows diffuse central areas of increased ground-glass attenuation with scattered areas of bronchial wall thickening. Differential includes infectious/inflammatory pneumonitis, atypical viral pneumonia, interstitial lung disease could also be considered. As patient was seen 2 days ago for fentanyl adverse reaction, concern that patient may have. She did receive empiric vanc and Zosyn today which covers aspiration pneumonia. > her D-dimer is elevated to 1955. she does have new AUBRIE. I did discuss this with my attending Dr. White who has also evaluated patient at bedside. CT angio unable to be obtained secondary to new AUBRIE. Given suspected pneumonitis, pulmonary embolism is less likely however will speak to hospitalist regarding admission with possible V/Q scan. 2001-- I spoke with hospitalist, Dr. Shah, who agrees to admission for acute hypoxic respiratory failure likely secondary to bronchitis and AUBRIE. Dr. Shah to place admission orders. Bed request placed. Medical Decision Making Medical Decision Making [facility] Narrative: 63-year-old female with past medical history significant for COPD, tobacco dependence, PAD, type 2 diabetes presents to the ED today for evaluation of epigastric abdominal pain that began yesterday. Patient is satting 91% on 3 L nasal cannula. Vitals otherwise WNL. Afebrile. Patient somnolent however responsive to verbal stimuli. Ill appaering. nO Differential diagnosis includes pancreatitis, viral syndrome, gastritis, pneumonia, COPD exacerbation, acute bronchitis, hypoxic respiratory failure. Plan for labs, coags, trop, ekg, inglammatory markers, UA, utox, Differential Diagnosis Differential Diagnoses: The differential diagnosis associated with the presentation includes As above Admission/Observation Consideration of admission/observation: Escalation of care including admission/observation considered Patietn admitted to medicine for hypoxic respiratory failure likely secondry to acute bronchitis, AUBRIE, and leukocytosis. Consult Healthcare Provider Management of the patient was discussed with: Hospitalist (Dr. Shah) Lab Data MDM Lab Attestation statement: I reviewed the patient's lab results. As above 12/31/23 17:04 12/31/23 15:47 Labs: Lab Results 12/31/23 12/31/23 12/31/23 Range/Units 15:28 15:46 15:47 WBC 23.8 H (4.8-10.8) X10*3/uL RBC 4.02 L (4.20-5.50) X10*6/uL Hgb 11.3 L (12.0-16.0) g/dl Hct 33.3 L (37.0-47.0) % MCV 82.8 (80.0-98.0) fL MCH 28.1 (27.0-33.0) pg MCHC 33.9 (31.0-35.0) g/dl RDW 15.7 (11.0-16.0) % Plt Count 397 D (160-400) X10*3/uL MPV 10.9 (9.4-12.3) fL Immature Gran % (Auto) Cancelled Neut % (Auto) Cancelled Lymph % (Auto) Cancelled [place]land % (Auto) Cancelled Eos % (Auto) Cancelled Baso % (Auto) Cancelled Lymph # (Auto) Cancelled [place] # (Auto) Cancelled Eos # (Auto) Cancelled Baso # (Auto) Cancelled Abs Immat Gran (auto) Cancelled Absolute Neuts (auto) Cancelled Absolute Nucleated RBC 0.000 (0.0-0.012) X10*3/uL Nucleated RBC % (auto) 0.0 (0.0-0.2) /100WBC Neutrophils % (Manual) 80 H (45-73) % Band Neutrophils % 8 H (3-5) % Lymphocytes % (Manual) 9 L (20-40) % Monocytes % (Manual) 3 (2-11) % Abs Neuts (Manual) 20.9 H (2.0-8.3) X10*3/uL Lymphocytes # (Manual) 2.1 (1.2-4.9) X10*3/uL Monocytes # (Manual) 0.7 (0.1-1.2) X10*3/uL Platelet Estimate NORMAL (NORMAL) Plt Morphology Comment NORMAL RBC Morphology NORMAL Smear Tech's Comments MANUAL DIFF D-Dimer High Sensitivty NG/ML Hold Blue Top VBG pH (7.32-7.43) VBG pCO2 mmHg VBG pO2 mmHg VBG HCO3 (22-26) mmol/L VBG O2 Saturation % VBG Base Excess mmol/L Sodium 132 L (135-145) mmol/L Potassium 4.3 (3.3-5.1) mmol/L Chloride 100 (96-108) mmol/L Carbon Dioxide 20 L (22-29) mmol/L Anion Gap 16 (12-20) BUN 32 H (9-16) mg/dL Creatinine 1.85 H (0.5-1.4) mg/dL Estim Creat Clear Calc 23.6 Estimated GFR 28 POC Glucose 320 H (60-115) mg/dL Random Glucose 354 H* (60-115) mg/dL Lactic Acid (0.5-2.0) mmol/L Calcium 10.0 (8.4-10.2) mg/dL Magnesium 1.6 (1.6-2.6) mg/dL Total Bilirubin 0.4 (0.0-1.0) mg/dL AST 8 (5-31) U/L ALT 5 (0-31) U/L Alkaline Phosphatase 105 (39-117) U/L Troponin I High Sens 10.2 D (<3.5-17.0) ng/L C-Reactive Protein (< or = 0.50) mg/dL B-Natriuretic Peptide 282 H (<100) pg/mL Total Protein 8.8 H (6.5-8.0) g/dL Albumin 3.9 (3.5-5.0) g/dL Ethyl Alcohol mg/dL Influenza Type A (PCR) NEGATIVE (Negative) Influenza Type B (PCR) NEGATIVE (Negative) RSV RNA Qual (PCR) NEGATIVE (Negative) SARS-CoV-2 RNA (RT-PCR) NEGATIVE (Negative) 12/31/23 12/31/23 12/31/23 Range/Units 15:48 15:50 17:04 WBC 25.9 H (4.8-10.8) X10*3/uL RBC 3.95 L (4.20-5.50) X10*6/uL Hgb 10.9 L (12.0-16.0) g/dl Hct 32.7 L (37.0-47.0) % MCV 82.8 (80.0-98.0) fL MCH 27.6 (27.0-33.0) pg MCHC 33.3 (31.0-35.0) g/dl RDW 15.6 (11.0-16.0) % Plt Count 386 (160-400) X10*3/uL MPV 10.6 (9.4-12.3) fL Immature Gran % (Auto) 0.7 H Neut % (Auto) 89.1 H Lymph % (Auto) 5.4 L [place]land % (Auto) 4.6 Eos % (Auto) 0.0 Baso % (Auto) 0.2 Lymph # (Auto) 1.4 [place] # (Auto) 1.2 Eos # (Auto) 0.0 Baso # (Auto) 0.1 Abs Immat Gran (auto) 0.17 H Absolute Neuts (auto) 23.1 H Absolute Nucleated RBC 0.000 (0.0-0.012) X10*3/uL Nucleated RBC % (auto) 0.0 (0.0-0.2) /100WBC Neutrophils % (Manual) (45-73) % Band Neutrophils % (3-5) % Lymphocytes % (Manual) (20-40) % Monocytes % (Manual) (2-11) % Abs Neuts (Manual) (2.0-8.3) X10*3/uL Lymphocytes # (Manual) (1.2-4.9) X10*3/uL Monocytes # (Manual) (0.1-1.2) X10*3/uL Platelet Estimate (NORMAL) Plt Morphology Comment RBC Morphology Smear Tech's Comments D-Dimer High Sensitivty 1955 NG/ML Hold Blue Top SEE NOTE VBG pH 7.33 (7.32-7.43) VBG pCO2 34 mmHg VBG pO2 60 mmHg VBG HCO3 18 L (22-26) mmol/L VBG O2 Saturation 85.0 % VBG Base Excess -6.0 mmol/L Sodium (135-145) mmol/L Potassium (3.3-5.1) mmol/L Chloride (96-108) mmol/L Carbon Dioxide (22-29) mmol/L Anion Gap (12-20) BUN (9-16) mg/dL Creatinine (0.5-1.4) mg/dL Estim Creat Clear Calc Estimated GFR POC Glucose (60-115) mg/dL Random Glucose (60-115) mg/dL Lactic Acid 1.6 (0.5-2.0) mmol/L Calcium (8.4-10.2) mg/dL Magnesium (1.6-2.6) mg/dL Total Bilirubin (0.0-1.0) mg/dL AST (5-31) U/L ALT (0-31) U/L Alkaline Phosphatase (39-117) U/L Troponin I High Sens (<3.5-17.0) ng/L C-Reactive Protein 18.75 H (< or = 0.50) mg/dL B-Natriuretic Peptide (<100) pg/mL Total Protein (6.5-8.0) g/dL Albumin (3.5-5.0) g/dL Ethyl Alcohol < 10 mg/dL Influenza Type A (PCR) (Negative) Influenza Type B (PCR) (Negative) RSV RNA Qual (PCR) (Negative) SARS-CoV-2 RNA (RT-PCR) (Negative) Independent Interpretation I performed an independent interpretation of an: EKG, Plain X-Ray and CT Scan Interpretation: EKG showing normal sinus rhythm with a rate of 76 beats per minute, QT 462, QTC 519, no acute ischemic changes or ST elevations. Chest x-ray with left lower lobe opacity, agree with radiologist's interpretation. CT abdomen/ pelvis showing fecal retention, no evidence of obstruction, agree with radiologist's interpretation. Radiology Impression Discussion of test interpretation with radiology: I have reviewed the radiologist's reading. Radiologist Impression: EXAMINATION: XR CHEST CLINICAL INFORMATION: Wheezing. COMPARISON: Chest radiograph dated 12/29/2023. TECHNIQUE: 2 views of the chest were obtained. FINDINGS: The heart is normal in size. Again seen is streaky opacity within the right upper lobe. There is a left lower lobe airspace opacity, new from prior examination. There is no pneumothorax. No pleural effusion. There are severe degenerative changes of the glenohumeral joints. XR/XR chest 2V IMPRESSION: Again seen is streaky right upper lobe airspace disease. There is new left lower lobe airspace disease. Multifocal infection is suspected. EXAMINATION: CT ABDOMEN AND PELVIS WITHOUT CONTRAST CLINICAL INFORMATION: Epigastric abdominal pain COMPARISON: CT abdomen from 12/29/2023 6 TECHNIQUE: Multidetector volumetric imaging was performed from the superior aspect of the liver through the pubic symphysis. Sagittal and coronal reformatted images were obtained on the technologist's workstation. This CT examination was performed using dose optimization techniques as appropriate, variously including the following: *Automated exposure control *Adjustment of mA and/or kV according to patient size (this includes techniques or standardized protocols for targeted exams where dose is matched to indication/reason for exam; i.e. extremities or head) *Use of iterative reconstruction technique DLP: 433 mGy-cm FINDINGS: LUNG BASES: Redemonstration of extensive reticular and interstitial lung markings with bronchial thickening and groundglass opacities throughout the visualized bilateral lung mckeon, increased from prior imaging. No pneumothorax. No large pleural effusion. Elevation right hemidiaphragm. LIVER, GALLBLADDER, AND BILIARY TREE: Liver is borderline enlarged measuring 17.3 cm. Left-sided pneumobilia, unclear etiology. No focal hepatic lesion or biliary ductal dilatation is present. The gallbladder is surgically absent. PANCREAS: Fatty atrophy of the pancreas. SPLEEN: Unremarkable. ADRENAL GLANDS: Unremarkable. KIDNEYS AND URETERS: The kidneys are normal in size, shape, and attenuation. No hydronephrosis, hydroureter, or calculi seen. No perinephric stranding. BLADDER: Urinary bladder is well-distended measuring up to 10.7 cm in the craniocaudad dimension. GASTROINTESTINAL TRACT: Small hiatal hernia. Mild to moderate fecal loading throughout the colon. The small and large bowel are unremarkable. The appendix is unremarkable. ABDOMINAL WALL: Fat filled umbilical hernia. Small fat filled right inguinal hernia. LYMPH NODES: A few mildly prominent bilateral inguinal mesenteric and periaortic lymph nodes are noted the largest in the right inguinal region measuring 1.1 cm in short axis, not enlarged per size criteria. VASCULAR: Abdominal aorta is nonaneurysmal. Atherosclerotic calcifications of the abdominal aorta and its branches. Atherosclerotic calcifications with likely element of narrowing involving the celiac and superior mesenteric artery PELVIC VISCERA: Anteverted uterus with calcifications throughout the fundus which may be vascular in etiology versus underlying calcified uterine fibroids. OSSEOUS STRUCTURES: Osteopenia. Grade 1 anterolisthesis of L4 and L5. Multilevel degenerative changes of the thoracolumbar lumbosacral spine. CT/CT abdomen pelvis wo IV con IMPRESSION: 1. Redemonstration of extensive reticular and interstitial lung markings with bronchial thickening and groundglass opacities throughout the visualized bilateral lung mckeon, increased from prior imaging. 2. Liver is borderline enlarged measuring 17.3 cm. 3. Left-sided hepatic pneumobilia, unclear etiology possibly postoperative. 4. Status post cholecystectomy. 5. Urinary bladder is well-distended measuring up to 10.7 cm in the craniocaudad dimension. 6. Small hiatal hernia. 7. A few mildly prominent bilateral inguinal mesenteric and periaortic lymph nodes are noted the largest in the right inguinal region measuring 1.1 cm in short axis, not enlarged per size criteria. 8. Osteomeatal atherosclerotic calcifications but likely an element of narrowing involving the celiac and superior mesenteric artery. 9. Osteopenia. Grade 1 anterolisthesis of L4 and L5. Independent Historian Clinical information obtained from an independent historian. History obtained from or confirmed by: EMS External Record Review External record reviewed: Inpatient record, Office record, Outpatient record, Prior outpatient labs, Prior outpatient radiology, Primary care record and Outside ED record Prescription Management I considered prescription management with: Pain Medication and Antibiotic Chronic Conditions Patient?s care impacted by: Diabetes and Other (COPD) Social Determinants Patient?s care significantly limited by Social Determinants of Health including: Alcoholism and drug addiction in family and Other Social Determinant of Health Medications Administered Generic Name Dose Route Start Last Admin Trade Name Freq PRN Reason Stop Dose Admin Bisacodyl 5 mg 12/31/23 21:00 12/31/23 21:11 Bisacodyl 5 Mg Tablet.Dr PO 5 mg BEDTIME PRECIOUS Administration Enoxaparin Sodium 60 mg 12/31/23 22:00 12/31/23 22:46 Enoxaparin Sodium 60 Mg/0.6 Ml Syringe 1 mg/kg (60 mg) 60 mg SUBCUT Administration Q24H PRECIOUS Azithromycin 500 mg/ Sodium 250 mls @ 125 mls/hr 12/31/23 22:00 12/31/23 21:23 Chloride IV 125 mls/hr Q24H PRECIOUS Administration Sodium Chloride 1,000 mls @ 75 mls/hr 12/31/23 20:15 12/31/23 21:12 Ns IVCONT 75 mls/hr .[id number] PRECIOUS Administration Insulin Glargine 10 unit 12/31/23 21:00 12/31/23 21:12 Insulin Glargine,Hum.Rec.Anlog 100 Unit/Ml 10 Ml Vial SUBCUT 10 unit BEDTIME PRECIOUS Administration Insulin Human Lispro 0 unit 12/31/23 21:00 12/31/23 21:24 Insulin Lispro 100 Unit/Ml 3 Ml Vial SUBCUT 8 unit QIDACHS PRECIOUS Administration Protocol Pantoprazole Sodium 40 mg 12/31/23 20:10 12/31/23 21:11 Pantoprazole Sodium 40 Mg/10 Ml Vial IVPUSH 40 mg DAILY PRECIOUS Administration Sodium Chloride 3 ml 01/01/24 00:00 01/01/24 00:57 0.9 % Sodium Chloride Flush 3 Ml Syringe IVFLUSH Not Given QSHIFT [facility] Discontinued Medications Generic Name Dose Route Start Last Admin Trade Name Yuryq PRN Reason Stop Dose Admin Albuterol Sulfate 2.5 mg 12/31/23 20:08 12/31/23 20:22 Albuterol Sulfate (0.083%) 2.5 Mg/3 Ml Vial.Neb INHALE 12/31/23 20:09 2.5 mg ONCE STA Administration Albuterol Sulfate 5 mg/ 0 mg 12/31/23 16:57 12/31/23 17:09 Albuterol/Ipratropium 3 ml INHALE 12/31/23 16:58 5 each ONCE ONE Administration Sodium Chloride 1,000 mls @ 999 mls/hr 12/31/23 16:45 12/31/23 18:54 Ns IV 12/31/23 17:45 Infused .Q1H1M PRECIOUS Infusion Piperacillin Sod/Tazobactam 50 mls @ 100 mls/hr 12/31/23 17:55 12/31/23 19:36 Sod 3.375 gm/ Sodium Chloride IV 12/31/23 18:24 Infused ONCE ONE Infusion Vancomycin HCl 1,500 mg/ 500 mls @ 333.333 mls/hr 12/31/23 17:55 12/31/23 21:27 Sodium Chloride IV 12/31/23 19:24 Infused ONCE ONE Infusion Magnesium Sulfate 2 gm in 50 mls @ 150 mls/hr 12/31/23 18:10 12/31/23 19:37 Magnesium Sulfate/H2o IV 12/31/23 18:29 Infused ONCE ONE Infusion Insulin Human Lispro 7 unit 12/31/23 20:11 12/31/23 21:11 Insulin Lispro 100 Unit/Ml 3 Ml Vial SUBCUT 12/31/23 20:12 7 unit ONCE STA Administration Ketorolac Tromethamine 30 mg 12/31/23 17:07 12/31/23 17:15 Ketorolac Tromethamine 30 Mg/Ml Vial IVPUSH 12/31/23 17:08 30 mg ONCE ONE Administration Methylprednisolone Sodium Succinate 125 mg 12/31/23 16:43 12/31/23 17:15 Methylprednisolone Sod Succ 125 Mg/2 Ml Vial IVPUSH 12/31/23 16:44 125 mg ONCE ONE Administration Senna 15 ml 12/31/23 20:12 12/31/23 21:11 Senna [place] Extract Oral Syrup 15 Ml Syrup PO 12/31/23 20:13 15 ml ONCE STA Administration Critical Care Time Critical Care Time Critical Care Time: Yes Total Critical Care Time: 36 Attestation: Critical care time in the amount of 36 minutes has been provided to the patient in terms of direct patient care, frequent reevaluation, consultation with hospitalist, review and interpretation of medical data and results, and management of potentially life-threatening conditions. This is all outside of any medical procedures. Discharge Plan Discharge Clinical Impression: Acute hypoxic respiratory failure, Leukocytosis, Acute kidney injury, Constipation Patient Disposition: Admitted As Inpatient
[2023-12-31 16:21] LABS: B Type Natriuretic Peptide 282 pg/mL (<100)
[2023-12-31 16:24] LABS: Troponin-I High Sensitivity 10.2 ng/L (<3.5-17.0)
[2023-12-31 16:31] LABS: Alanine Aminotransferase 5 U/L (0-31); Albumin Level 3.9 g/dL (3.5-5.0); Alkaline Phosphatase 105 U/L (39-117); Anion Gap 16 (12-20); Aspartate Amino Transferase 8 U/L (5-31); Bilirubin Total 0.4 mg/dL (0.0-1.0); Blood Urea Nitrogen 32 mg/dL (9-16); Carbon Dioxide 20 mmol/L (22-29); Chloride 100 mmol/L (96-108); Creatinine Clr Calc Pharmacy 23.6; Estimated Glomerular Filt Rate 28; Glucose Random 354 mg/dL (60-115); Magnesium 1.6 mg/dL (1.6-2.6); Potassium 4.3 mmol/L (3.3-5.1); Sodium 132 mmol/L (135-145); Total Protein 8.8 g/dL (6.5-8.0)
[2023-12-31 16:43] LABS: Influenza A PCR NEGATIVE (Negative); Influenza B PCR NEGATIVE (Negative); Resp Syncy Virus RNA Qual PCR NEGATIVE (Negative); SARS COV2 PCR INHOUSE NEGATIVE (Negative)
[2023-12-31 16:45] LABS: SLIDE REVIEW MANUAL DIFF
[2023-12-31 16:49] LABS: Band Neutrophils Percent 8 % (3-5); Lymphocytes Absolute Manual 2.1 X10*3/uL (1.2-4.9); Lymphocytes Percent Manual 9 % (20-40); Monocytes Absolute Manual 0.7 X10*3/uL (0.1-1.2); Monocytes Percent Manual 3 % (2-11); Neutrophils Absolute Manual 20.9 X10*3/uL (2.0-8.3); Neutrophils Percent Manual 80 % (45-73); RBC Morphology NORMAL
[2023-12-31 16:54] LABS: Platelet Estimate NORMAL (NORMAL); Platelet Morphology Comment NORMAL
[2023-12-31] MEDS: Albuterol Sulfate 5 MG, Albuterol/Iprat 2.5/0.5MG 3 ML 3 ML INHALE (17:09)
[2023-12-31 17:13] LABS: Basophils Absolute Auto 0.1 X10*3/uL (0.0-0.2); Basophils Percent Auto 0.2 % (0-2); Hematocrit 32.7 % (37.0-47.0); Hemoglobin 10.9 g/dl (12.0-16.0); Imm Gran Abs Auto 0.17 X10*3/uL (0.00-0.03); Imm Gran Pct Auto 0.7 % (0.0-0.4); Lymphocytes Absolute Auto 1.4 X10*3/uL (1.2-4.9); Lymphocytes Percent Auto 5.4 % (20-40); MANUAL DIFF FLAG SCAN; Mean Corpuscular HGB Conc 33.3 g/dl (31.0-35.0); Mean Corpuscular Hemoglobin 27.6 pg (27.0-33.0); Mean Corpuscular Volume 82.8 fL (80.0-98.0); Mean Platelet Volume 10.6 fL (9.4-12.3); Monocytes Absolute Auto 1.2 X10*3/uL (0.1-1.2); Monocytes Percent Auto 4.6 % (2-11); Neutrophils Absolute Auto 23.1 x10*3/uL (2.0-8.3); Neutrophils Percent Auto 89.1 % (45-73); Platelet Count 386 X10*3/uL (160-400); Red Blood Count 3.95 X10*6/uL (4.20-5.50); Red Cell Distribution Width 15.6 % (11.0-16.0); SCAN SMEAR FLAG 1; White Blood Count 25.9 X10*3/uL (4.8-10.8)
[2023-12-31] MEDS: 0.9 % Sodium Chloride 1,000 ML 999 ML IV (17:15)
[2023-12-31] MEDS: Ketorolac Tromethamine 30 MG/ML VIAL IVPUSH (17:15)
[2023-12-31] MEDS: methylPREDNISolone Sod Succ 125 MG/2 ML VIAL IVPUSH (17:15)
[2023-12-31 17:22] LABS: Lactic Acid 1.6 mmol/L (0.5-2.0)
[2023-12-31 17:25] LABS: Ethanol < 10 mg/dL
[2023-12-31 17:56] LABS: D Dimer High Sensitivity 1955 NG/ML
[2023-12-31] MEDS: Magnesium Sulfate/H2O 2 GM/50 ML PIGGYBACK IV (18:51)
[2023-12-31] MEDS: Piperacillin Sodium/Tazobactam 3.375 GM in 0.9 % Sodium Chloride 50 ML IV (18:51)
[2023-12-31 19:05] LABS: C Reactive Protein 18.75 mg/dL (< or = 0.50)
[2023-12-31] MEDS: vancomycin HCL 1,500 MG in 0.9 % Sodium Chloride 500 ML 333.33 MG IV (19:38)
[2023-12-31] MEDS: Albuterol Sulfate (0.083%) 2.5 MG/3 ML VIAL.NEB INHALE (20:22)
--- NOTE | 2023-12-31 20:23 | PM.IMHP ---
History of Present Illness Date of Service: 12/31/23 Attending physician on admission: Tabatha Mittal Chief Complaint: Epigastric pain Lazara Driscoll is a 63 years old woman with past medical history significant for constipation, dyslipidemia, PE on Xarelto, COPD on home oxygen, type 2 diabetes mellitus on insulin, drug use on methadone and ongoing tobacco smoking was brought to the emergency department via EMS due to epigastric pain that started 2 days ago associated with yellowish nonbloody emesis x2. The pain is constant with an intensity of 8/10 without radiation. Denied diarrhea or constipation. She also complained of productive cough and mild shortness on breath. Her O2 sat was found to be low by EMS and was placed on supplemental oxygen. Denies chest pain, palpitations or dizziness. She did not report any fever, chills or pain with urination. Patient denied alcohol abuse or illicit drug use. Patient was evaluated in the emergency department yesterday for productive cough, vomiting and not feeling well. She underwent abdominal pelvis CT scan that is remarkable for moderate severe fecal retention. She also underwent a chest CTA that showed diffuse antral areas of increased ground-glass attenuations and also scattered areas of bronchial wall thickening, possibly due to atypical viral pneumonia, interstitial lung disease or nonspecific interstitial pneumonitis. In the ED, she was found to have stable vital signs but still requiring supplemental oxygen. Blood workup is remarkable for mild leukocytosis of 25.9, hemoglobin of 10.9 normal platelets. There is no lactic acidosis. CRP is elevated, 18.75. Her blood glucose is 254. BNP is 282. Creatinine is 1.85 (baseline is 0.85), urinalysis showed no evidence of UTI. Venous blood gas showed no respiratory acidosis. CXR showed new left lower lobe airspace disease. ED tx: NS 1 L bolus, Solu-Medrol 125 mg IV, albuterol neb, ketorolac 30 mg IV, and 3.375 g IV, vancomycin 1.5 mg IV magnesium 2 g IV. Review of Systems Review of Systems: All 12 systems were reviewed and normal except as noted in HPI. [facility] Medical History Diabetic osteomyelitis Below-knee amputation of right lower extremity Osteomyelitis of ankle Charcot foot due to diabetes mellitus Acute hyperglycemia Cellulitis Gastroenteritis Gastritis Constipation Diabetic foot ulcer New onset of congestive heart failure DKA (diabetic ketoacidoses) COVID-19 Dyslipidemia Glaucoma Pulmonary emboli Depression Chronic prescription opiate use Diabetes mellitus Pulmonary nodule Tobacco dependence COPD (chronic obstructive pulmonary disease) Family History Other CVA (cerebral vascular accident) Surgical History History of below-knee amputation of right lower extremity (01/13/22) Cataract extraction status, right eye Cataract extraction status, left eye Hx of cholecystectomy Social History Household Members: Spouse Housing: Apartment Housing Other:: hotel Do you presently have visiting nurse or other home services: Yes ([facility] services) Unable to assess alcohol history related to: Unknown Alcohol intake: never Comment: refused telesitter Patient Tobacco Use Status: Current everyday Tobacco user Tobacco use type: Cigarette Cigarette Packs Per Day: 0.5 Cigarettes Per Day: 5 Years Smoked: 45 Smoked in Last 30 Days: Yes e-Cigarette/Vaping Use: Currently Using Second Hand Smoke Exposure: No Use of substances other than those prescribed or required for medical reasons: No Substance Use Type: Former Substance User Advance Directives: Yes Advance Directives on File: Yes Advance Directives Date on File: 01/12/22 Do you have a plan to hurt others: No Plan service: No Current occupational status: disabled Meds Allergies Allergy/AdvReac Type Severity Reaction Status Date / Time No Known Allergies Allergy Verified 12/31/23 15:29 Active Medications: Current Medications Acetaminophen (Acetaminophen 325 Mg Tablet) 650 mg PO Q6H PRN PRN Reason: Pain, Mild (Pain Scale 1-3), fever or headache Albuterol/Ipratropium (Albuterol/Iprat 2.5/0.5mg 3 Ml Ampul.Neb) 3 ml INHALE RQ4H WHILE AWAKE PRECIOUS Calcium Carbonate (Calcium Carbonate 750 Mg Tab.Chew) 750 mg PO Q4H PRN PRN Reason: Heartburn Glucose (Glucose Gel 15 Gm Gel..Gram.) 15 gm PO Q15M PRN; Protocol PRN Reason: per Hypoglycemia Standing Ord. Azithromycin 500 mg/ Sodium (Chloride) 250 mls @ 125 mls/hr IV Q24H PRECIOUS Sodium Chloride (Ns) 1,000 mls @ 75 mls/hr IVCONT .[id number] [facility] Dextrose (D10) 250 mls @ 750 mls/hr IV Q15M PRN; Protocol PRN Reason: per Hypoglycemia Standing Ord. Insulin Human Lispro (Insulin Lispro 100 Unit/Ml 3 Ml Vial) 0 unit SUBCUT QIDACHS [facility]; Protocol Magnesium Hydroxide (Milk Of Magnesia 30 Ml Oral.Susp) 30 ml PO DAILY PRN PRN Reason: Constipation Melatonin (Melatonin 3 Mg Tablet) 6 mg PO BEDTIME PRN PRN Reason: Insomnia Ondansetron HCl (Ondansetron Hcl 4 Mg/2 Ml Vial) 4 mg IVPUSH Q8H PRN PRN Reason: Nausea and Vomiting Pantoprazole Sodium (Pantoprazole Sodium 40 Mg/10 Ml Vial) 40 mg IVPUSH DAILY [facility] Sodium Chloride (0.9 % Sodium Chloride Flush 3 Ml Syringe) 3 ml IVFLUSH QSHIFT [facility] Home Medications ?Medication ?Instructions ?Recorded ?Confirmed ?Last Taken ?Type albuterol sulfate 90 mcg/actuation 2 puff PO Q4H PRN Respiratory 04/24/20 10/13/23 10/12/23 History aerosol inhaler Distress aspirin 81 mg tablet,delayed 81 mg PO DAILY 04/24/20 10/13/23 10/11/23 History release atorvastatin 40 mg tablet 40 mg PO DAILY 04/24/20 10/13/23 10/12/23 History bupropion HCl 150 mg tablet,12 hr 150 mg PO BID 04/24/20 10/13/23 10/12/23 History sustained-release lancets 33 gauge #100 ea 04/24/20 10/13/23 10/12/23 History lisinopril 10 mg tablet 10 mg PO DAILY 04/24/20 10/13/23 10/12/23 History metformin 1,000 mg tablet 1,000 mg PO BIDWMEAL 04/24/20 10/13/23 10/12/23 History omeprazole 20 mg capsule,delayed 20 mg PO DAILY 04/24/20 10/13/23 10/12/23 History release gabapentin 600 mg tablet 600 mg PO TID 05/03/20 10/13/23 10/12/23 History methadone 10 mg/mL oral 130 mg PO DAILY 05/28/20 10/14/23 10/12/23 History concentrate (Methadone Intensol) insulin degludec 100 unit/mL (3 20 unit subcut BEDTIME 10/13/23 10/13/23 10/11/23 History mL) subcutaneous pen (Tresiba FlexTouch U-100 insulin) acetaminophen 325 mg capsule 325 mg PO QID PRN 11/02/23 Unknown History bisacodyl 10 mg rectal suppository 10 mg TX DAILY PRN 11/02/23 Unknown History dextrose 40 % oral gel 10 g PO Q15M PRN 11/02/23 Unknown History glucagon 1 mg solution for 1 mg subcut Q20M PRN 11/02/23 Unknown History injection (Glucagon Emergency Kit) insulin degludec 100 unit/mL (3 100 unit subcut DAILY 11/02/23 Unknown History mL) subcutaneous pen magnesium hydroxide 400 mg/5 mL 400 mg PO DAILY PRN 11/02/23 Unknown History oral suspension (Milk of Magnesia) nicotine 14 mg/24 hr daily 1 patch transdermal DAILY 11/02/23 Unknown History transdermal patch sodium phosphates 19 gram-7 118 ml TX DAILY PRN 11/02/23 Unknown History gram/118 mL enema (Fleet Enema) vancomycin 500 mg intravenous 500 mg PO QID 11/02/23 Unknown History solution Physical Exam Vital Signs and Narrative: Vital Signs: Last Vital Signs Temp 97.7 F 12/31/23 15:24 Pulse 70 12/31/23 18:56 Resp 18 12/31/23 18:56 BP 121/64 12/31/23 18:56 Pulse Ox 93 12/31/23 18:56 O2 Del Method Nasal Cannula 12/31/23 18:56 O2 Flow Rate 2 12/31/23 18:56 Oxygen Flow Rate 2 12/31/23 15:24 BMI result Body Mass Index 24.8 Constitutional - Awake and Alert. Looks uncomfortable due to pain. Pleasant. Cooperate. HEENT - PERRL, EOMI. Dry oral mucosa. Heart - RRR. No murmus. Lungs - Normal lung expansion, Normal respiratory effort, No respiratory distress. Tachypnea. Bilateral rhonchi in all lung mckeon. No wheezing. No crackles. Abdomen - Nondistended. Increased bowel sounds. Epigastric tenderness without rebound or guarding. Extremities - no calf tenderness bilaterally, no swelling Musculoskeletal - Normal inspection, normal ROM Skin - Warm/Dry Neurological - Alert & oriented x3. No facial droop. No focal weakness grossly noted. Normal speech. Psychological - Depressed affect Results Labs 12/31/23 17:04 12/31/23 15:47 Labs: Laboratory Results - last 24 hr 12/31/23 12/31/23 12/31/23 15:28 15:46 15:47 MCV 82.8 MCH 28.1 MCHC 33.9 RDW 15.7 Plt Count 397 D MPV 10.9 Immature Gran % (Auto) Cancelled Neut % (Auto) Cancelled Lymph % (Auto) Cancelled [place] % (Auto) Cancelled Eos % (Auto) Cancelled Baso % (Auto) Cancelled Lymph # (Auto) Cancelled [place] # (Auto) Cancelled Eos # (Auto) Cancelled Baso # (Auto) Cancelled Abs Immat Gran (auto) Cancelled Absolute Neuts (auto) Cancelled Absolute Nucleated RBC 0.000 Nucleated RBC % (auto) 0.0 Neutrophils % (Manual) 80 H Band Neutrophils % 8 H Lymphocytes % (Manual) 9 L Monocytes % (Manual) 3 Abs Neuts (Manual) 20.9 H Lymphocytes # (Manual) 2.1 Monocytes # (Manual) 0.7 Platelet Estimate NORMAL Plt Morphology Comment NORMAL RBC Morphology NORMAL Smear Tech's Comments MANUAL DIFF D-Dimer High Sensitivty Hold Blue Top VBG pH VBG pCO2 VBG pO2 VBG HCO3 VBG O2 Saturation VBG Base Excess Anion Gap 16 Estim Creat Clear Calc 23.6 Estimated GFR 28 POC Glucose 320 H Random Glucose 354 H* Lactic Acid Calcium 10.0 Magnesium 1.6 Total Bilirubin 0.4 AST 8 ALT 5 Alkaline Phosphatase 105 Troponin I High Sens 10.2 D C-Reactive Protein B-Natriuretic Peptide 282 H Total Protein 8.8 H Albumin 3.9 Ethyl Alcohol Influenza Type A (PCR) NEGATIVE Influenza Type B (PCR) NEGATIVE RSV RNA Qual (PCR) NEGATIVE SARS-CoV-2 RNA (RT-PCR) NEGATIVE 12/31/23 12/31/23 12/31/23 15:48 15:50 17:04 MCV 82.8 MCH 27.6 MCHC 33.3 RDW 15.6 Plt Count 386 MPV 10.6 Immature Gran % (Auto) 0.7 H Neut % (Auto) 89.1 H Lymph % (Auto) 5.4 L [place] % (Auto) 4.6 Eos % (Auto) 0.0 Baso % (Auto) 0.2 Lymph # (Auto) 1.4 [place] # (Auto) 1.2 Eos # (Auto) 0.0 Baso # (Auto) 0.1 Abs Immat Gran (auto) 0.17 H Absolute Neuts (auto) 23.1 H Absolute Nucleated RBC 0.000 Nucleated RBC % (auto) 0.0 Neutrophils % (Manual) Band Neutrophils % Lymphocytes % (Manual) Monocytes % (Manual) Abs Neuts (Manual) Lymphocytes # (Manual) Monocytes # (Manual) Platelet Estimate Plt Morphology Comment RBC Morphology Smear Tech's Comments D-Dimer High Sensitivty 1954 Hold Blue Top SEE NOTE VBG pH 7.33 VBG pCO2 34 VBG pO2 60 VBG HCO3 18 L VBG O2 Saturation 85.0 VBG Base Excess -6.0 Anion Gap Estim Creat Clear Calc Estimated GFR POC Glucose Random Glucose Lactic Acid 1.6 Calcium Magnesium Total Bilirubin AST ALT Alkaline Phosphatase Troponin I High Sens C-Reactive Protein 18.75 H B-Natriuretic Peptide Total Protein Albumin Ethyl Alcohol < 10 Influenza Type A (PCR) Influenza Type B (PCR) RSV RNA Qual (PCR) SARS-CoV-2 RNA (RT-PCR) Imaging Radiologist's Impressions: Impressions Chest X-Ray 12/31/23 18:20 IMPRESSION: Again seen is streaky right upper lobe airspace disease. There is new left lower lobe airspace disease. Multifocal infection is suspected. Assessment and Plan (1) Hypoxic respiratory failure: Qualifiers: Chronicity: acute Qualified Code(s): J96.01 - Acute respiratory failure with hypoxia Status: Acute (2) AUBRIE (acute kidney injury): Status: Resolved Plan Lazara Driscoll is a 63 y/o woman admitted with: Hypoxic respiratory failure likely secondary to acute bronchitis, possible underlying interstitial pneumonia and/or acute COPD exacerbation. Admit to hospitalist service. Telemetry. Pulse oximetry. Keep O2 sats > 90%. Elevated d-dimer (hx of PE, now hypoxic) -will obtain VQ scan and start empiric anticoagulation with Lovenox subQ. Continue bronchodilator therapy, IV steroids and empiric IV antibiotic therapy with azithromycin. Check venous blood gas stat. Avoid sedative. Acute kidney injury, likely secondary to poor p.o. intake and vomiting. Continue IV fluids. Avoid nephrotoxic agents. Continue to monitor renal function. Epigastric pain associated with nausea and vomiting, unclear etiology. Acute gastritis? Abdomen pelvis CT scan done yesterday showed severe constipation. Tylenol and Protonix IV. Elevated white count. Likely secondary to vomiting and dehydration. Doubt sepsis: No lactic acidosis, no fever, no tachycardia. Blood culture obtained follow results. Continue IV hydration. Continue to monitor WBC count. Constipation. Stool softeners, laxative. Type 2 diabetes mellitus, uncontrolled. BG checks before meals at bedtime. Insulin sliding scale. Hold metformin due to AUBRIE. Diabetic diet. History of drug abuse. Continue methadone 135 mg p.o. daily. Dyslipidemia. Continue statin. Tobacco smoking. Patient was quoted to stop tobacco smoking. History of pulmonary embolism. Lovenox subcut. DVT prophylaxis: Lovenox subQ GI prophylaxis: Protonix IV Code status: Full Patient needs hospitalization for at least 2 midnights for hypoxic respiratory failure and AUBRIE treatment with IV fluids, empiric IV antibiotic therapy, IV steroids, bronchodilator therapy and supplemental oxygen. Quality Stroke Does the patient have a stroke diagnosis?: No VTE Prior VTE?: No VTE Risk Level:: Medical - moderate - high VTE Device Contraindication: Treatment Not Indicated VTE Drug Contraindication: N/A - Med Ordered
[2023-12-31] MEDS: bisacodyL 5 MG TABLET.DR PO (21:11)
[2023-12-31] MEDS: Pantoprazole Sodium 40 MG/10 ML VIAL IVPUSH (21:11)
[2023-12-31] MEDS: Insulin Lispro 100 UNIT/ML 3 ML VIAL 7 UNIT SUBCUT (21:11)
[2023-12-31] MEDS: 0.9 % Sodium Chloride 1,000 ML 75 ML IVCONT (21:12)
[2023-12-31] MEDS: Insulin Glargine,Hum.rec.anlog 100 UNIT/ML 10 ML VIAL 10 UNIT SUBCUT (21:12)
[2023-12-31 21:23] LABS: Glucose, Whole Blood 343 mg/dL (60-115)
[2023-12-31] MEDS: Azithromycin 500 MG in 0.9 % Sodium Chloride 250 ML 125 MG IV (21:23)
[2023-12-31] MEDS: Insulin Lispro 100 UNIT/ML 3 ML VIAL SUBCUT (21:24)
--- NOTE | 2023-12-31 21:39 | PHA.MEDREC ---
Pharmacy Consult ? Medication Reconciliation Pharmacy has completed the medication reconciliation. Tried to confirm medications with patient but patient fell asleep during questioning and I attempted to call and Daughter but both phones were off. I tried calling her health care proxy [facility] with no luck and left a voicemail. I when through pharmacy claims and confirmed what I could with Pharmacy Claims. Will be following up AM 12/31/23 to confirm rest of the meds.
--- NOTE | 2023-12-31 21:56 | PC.NURSE ---
Attempted to call patient's erasto with number provided, no answer, no voicemail.
[2023-12-31 22:01] LABS: VBG Base Excess -9.6 mmol/L; VBG HCO3 16 mmol/L (22-26); VBG pCO2 35 mmHg; VBG pH 7.26 (7.32-7.43); VBG pO2 52 mmHg
[2023-12-31 22:24] LABS: Venous Blood Gas Refer to POC result
[2023-12-31 22:36] LABS: Appearance Urine Cloudy; Color Urine Yellow; Glucose Urine UA >=1000 mg/dL (Negative); Leukocyte Esterase Urine Negative (Negative); Nitrite Urine Negative (Negative); UMIC TRIGGER UACC YES; Urine Blood Negative (Negative); Urine Ketones 15 mg/dL (Negative); Urine Protein 100 (2+) mg/dL (Neg-Trace)
[2023-12-31 22:43] LABS: Amphetamine Screen Urine Not Detected (Not Detect); Barbiturates, Urine Not Detected (Not Detect); Benzodiazepines Screen Urine Not Detected (Not Detect); Buprenorphine Scr Not Detected (Not Detect); Cannabinoid Screen Urine Not Detected (Not Detect); Cocaine Screen Urine Not Detected (Not Detect); Fentanyl, urine POSITIVE (Not Detect); Methadone Screen, Urine Positive (Not Detect); Opiate Screen Urine Not Detected (Not Detect); Oxycodone Screen Urine Not Detected (Not Detect); Phencyclidine Screen Urine Not Detected (Not Detect)
[2023-12-31] MEDS: Enoxaparin Sodium 60 MG/0.6 ML SYRINGE SUBCUT (22:46)
[2023-12-31 22:48] LABS: Bacteria Urine None Seen (None Seen); Hyaline Casts Urine 0-2 /LPF (0-2); RBC Urine 0-2 /HPF (0-2); Squamous Epithelial Cell Urine 0-2 /HPF (0-2); WBC Urine 0-5 /HPF (0-5)
--- NOTE | 2024-01-01 00:59 | PC.NURSE ---
Pt resting quietly in stretcher, denies any needs at this time.
[2024-01-01 03:46] VITALS: BP 133/57; PULSE 54; RESP 13; O2SAT 99
[2024-01-01 05:57] LABS: Glucose, Whole Blood 421 mg/dL (60-115)
--- NOTE | 2024-01-01 05:57 | PC.NURSE ---
Oxygen removed per respiratory at this time. Oxygen saturation 95% on room air. Pts blood glucose 421, Dr. Shah made aware via tigertext.
[2024-01-01 06:29] LABS: Basophils Percent Auto 0.1 % (0-2); Hematocrit 28.3 % (37.0-47.0); Hemoglobin 9.5 g/dl (12.0-16.0); Imm Gran Abs Auto 0.08 X10*3/uL (0.00-0.03); Imm Gran Pct Auto 0.6 % (0.0-0.4); Lymphocytes Absolute Auto 0.6 X10*3/uL (1.2-4.9); Lymphocytes Percent Auto 3.9 % (20-40); MANUAL DIFF FLAG SCAN; Mean Corpuscular HGB Conc 33.6 g/dl (31.0-35.0); Mean Corpuscular Hemoglobin 28.4 pg (27.0-33.0); Mean Corpuscular Volume 84.7 fL (80.0-98.0); Mean Platelet Volume 10.6 fL (9.4-12.3); Monocytes Absolute Auto 0.3 X10*3/uL (0.1-1.2); Neutrophils Absolute Auto 13.2 x10*3/uL (2.0-8.3); Neutrophils Percent Auto 93.4 % (45-73); Platelet Count 270 X10*3/uL (160-400); Red Blood Count 3.34 X10*6/uL (4.20-5.50); Red Cell Distribution Width 15.9 % (11.0-16.0); SCAN SMEAR FLAG 1; White Blood Count 14.1 X10*3/uL (4.8-10.8)
[2024-01-01] MEDS: Insulin Lispro 100 UNIT/ML 3 ML VIAL 10 UNIT SUBCUT (06:38)
[2024-01-01 06:49] LABS: Anion Gap 18 (12-20); Blood Urea Nitrogen 33 mg/dL (9-16); Calcium 8.6 mg/dL (8.4-10.2); Carbon Dioxide 14 mmol/L (22-29); Chloride 105 mmol/L (96-108); Creatinine Clr Calc Pharmacy 27.5; Estimated Glomerular Filt Rate 33; Glucose Random 429 mg/dL (60-115); Potassium 3.8 mmol/L (3.3-5.1); Sodium 133 mmol/L (135-145)
--- NOTE | 2024-01-01 06:50 | PC.NURSE ---
Ashwin can be reached at [phone]
[2024-01-01 07:08] LABS: SLIDE REVIEW VERIFIED
[2024-01-01 08:00] VITALS: BP 192/82; PULSE 68; RESP 20; TEMP 36.3; O2SAT 95
[2024-01-01 08:35] LABS: Glucose, Whole Blood 371 mg/dL (60-115)
[2024-01-01] MEDS: Insulin Lispro 100 UNIT/ML 3 ML VIAL SUBCUT ×3 (08:41→21:53)
[2024-01-01] MEDS: 0.9 % Sodium Chloride Flush 3 ML SYRINGE IVFLUSH (08:42)
[2024-01-01] MEDS: Pantoprazole Sodium 40 MG/10 ML VIAL IVPUSH (08:43)
--- NOTE | 2024-01-01 11:14 | MHC.CM.PN ---
Addendum entered by Keyanna Vizcarra 01/01/24 13:11: Pt is active with [facility] Original Note: IMM 01/01/24, Pt. lives with her son, she has a nurse that visit daily to give her medication, including her Methadone, she did not know name of agency, CM wll reach out to [facility] to inquire. HCP on file and confirmed, naming [facility], PCP confirmed: Dr. Herring. Methadone clinic is [facility] in [place]. Pt has a cane and walker, her son will transport home at [place]. DCP: home, resume services. CM to follow for DC needs.
--- NOTE | 2024-01-01 11:15 | PHA.MEDREC ---
Pharmacy Consult ? Medication Reconciliation Pharmacy has completed the medication reconciliation. Spoke to patient to confirm med list. Patient was Awake and alert. She was able to confirm her medications. Patient stat she Use Fiasp U-100 per sliding scale, however she didn't know the sliding scale doses. Tresiba Flex Touch 20 units at bedtime.
[2024-01-01 11:50] VITALS: BP 167/76; PULSE 60; RESP 20; TEMP 36.1; O2SAT 97
[2024-01-01 11:50] LABS: Glucose, Whole Blood 286 mg/dL (60-115)
[2024-01-01 11:54] VITALS: BMI 25.6
--- NOTE | 2024-01-01 12:23 | HO.PM.IMPN ---
Subjective Subjective Date of Service: 01/01/24 Interval History: Being followed for acute hypoxic respiratory failure, nausea vomiting and constipation. Patient denies nausea, no vomiting, no abdominal pain, had no bowel movement complaining of mild shortness of breath, denies chest tightness, denies fever, no chills requesting for nicotine patch. No left leg swelling or pain. Review of Systems All other system reviewed and negative Physical Exam Vital Signs: Vital Signs: Last Vital Signs Temp 97.0 F 01/01/24 11:50 Pulse 60 01/01/24 11:50 Resp 20 01/01/24 11:50 BP 167/76 H 01/01/24 11:50 Pulse Ox 97 01/01/24 11:50 O2 Del Method Room Air 01/01/24 11:50 O2 Flow Rate 5 01/01/24 08:00 Oxygen Flow Rate 2 12/31/23 15:24 BMI result Body Mass Index 25.6 Const: Other: Gen: Awake alert x3, in no acute distress HEENT: sclera anicteric, moist mucus membranes Neck: supple Lungs: Coarse breath sounds bilaterally with few expiratory rhonchi Heart: regular rate and rhythm, no murmurs Abd: soft, non-tender, non-distended, bowel sounds audible Ext: s/p R BKA Skin: warm/well-perfused Neuro: alert and oriented x3, no focal findings Psych: appropriate affect Objective Data Active Medications Albuterol/Ipratropium (Albuterol/Iprat 2.5/0.5mg 3 Ml Ampul.Neb) 3 ml INHALE RQ4H WHILE AWAKE [facility] Amlodipine Besylate (Amlodipine Besylate 10 Mg Tablet) 10 mg PO DAILY [facility]; Protocol Aspirin (Aspirin Enteric Coated 81 Mg Tablet.) 81 mg PO DAILY [facility] Bisacodyl (Bisacodyl 5 Mg Tablet.) 5 mg PO BEDTIME [facility] Last Admin: 12/31/23 21:11 Dose: 5 mg Documented By: VIVIAN Calcium Carbonate (Calcium Carbonate 750 Mg Tab.Chew) 750 mg PO Q4H PRN PRN Reason: Heartburn Enoxaparin Sodium (Enoxaparin Sodium 60 Mg/0.6 Ml Syringe) 60 mg 1 mg/kg (60 mg) SUBCUT Q24H [facility] Last Admin: 12/31/23 22:46 Dose: 60 mg Documented By: VIVIAN Glucose (Glucose Gel 15 Gm Gel..Gram.) 15 gm PO Q15M PRN; Protocol PRN Reason: per Hypoglycemia Standing Ord. Azithromycin 500 mg/ Sodium (Chloride) 250 mls @ 125 mls/hr IV Q24H [facility] Last Infusion: 01/01/24 07:35 Dose: Infused Documented By: LORI Sodium Chloride (Ns) 1,000 mls @ 75 mls/hr IVCONT .[id number] [facility] Last Infusion: 01/01/24 09:42 Dose: 0 mls/hr Documented By: LORI Dextrose (D10) 250 mls @ 750 mls/hr IV Q15M PRN; Protocol PRN Reason: per Hypoglycemia Standing Ord. Acetaminophen (Ofirmev) 1,000 mg in 100 mls @ 400 mls/hr IV Q6H PRN PRN Reason: Pain, Severe (Pain Scale 7-10) Stop: 01/01/24 15:29 Insulin Glargine (Insulin Glargine,Hum.Rec.Anlog 100 Unit/Ml 10 Ml Vial) 10 unit SUBCUT BEDTIME [facility] Last Admin: 12/31/23 21:12 Dose: 10 unit Documented By: VIVIAN Insulin Human Lispro (Insulin Lispro 100 Unit/Ml 3 Ml Vial) 0 unit SUBCUT QIDACHS [facility]; Protocol Last Admin: 01/01/24 08:41 Dose: 10 unit Documented By: LORI Magnesium Hydroxide (Milk Of Magnesia 30 Ml Oral.Susp) 30 ml PO DAILY PRN PRN Reason: Constipation Melatonin (Melatonin 3 Mg Tablet) 6 mg PO BEDTIME PRN PRN Reason: Insomnia Methadone HCl (Methadone Hcl 20 Mg/2 Ml Oral.Conc) 130 mg PO DAILY [facility] Metoprolol Succinate (Metoprolol Succinate Er 25 Mg Tab.Er.24h) 25 mg PO DAILY [facility]; Protocol Mirtazapine (Mirtazapine 7.5 Mg Tablet) 7.5 mg PO BEDTIME [facility] Non-Formulary Medication (Bupropion Hcl) 150 mg PO BID [facility] Ondansetron HCl (Ondansetron Hcl 4 Mg/2 Ml Vial) 4 mg IVPUSH Q8H PRN PRN Reason: Nausea and Vomiting Pantoprazole Sodium (Pantoprazole Sodium 40 Mg/10 Ml Vial) 40 mg IVPUSH DAILY [facility] Last Admin: 01/01/24 08:43 Dose: 40 mg Documented By: LORI Prochlorperazine Edisylate (Prochlorperazine Edisylate 10 Mg/2 Ml Vial) 5 mg IVPUSH Q4H PRN PRN Reason: Nausea and Vomiting Sodium Chloride (0.9 % Sodium Chloride Flush 3 Ml Syringe) 3 ml IVFLUSH QSHIFT [facility] Last Admin: 01/01/24 08:42 Dose: 3 ml Documented By: LORI Labs 01/01/24 06:05 01/01/24 06:05 Labs: Laboratory Results - last 24 hr 12/31/23 12/31/23 12/31/23 15:28 15:46 15:47 MCV 82.8 MCH 28.1 MCHC 33.9 RDW 15.7 Plt Count 397 D MPV 10.9 Immature Gran % (Auto) Cancelled Neut % (Auto) Cancelled Lymph % (Auto) Cancelled [place] % (Auto) Cancelled Eos % (Auto) Cancelled Baso % (Auto) Cancelled Lymph # (Auto) Cancelled [place] # (Auto) Cancelled Eos # (Auto) Cancelled Baso # (Auto) Cancelled Abs Immat Gran (auto) Cancelled Absolute Neuts (auto) Cancelled Absolute Nucleated RBC 0.000 Nucleated RBC % (auto) 0.0 Neutrophils % (Manual) 80 H Band Neutrophils % 8 H Lymphocytes % (Manual) 9 L Monocytes % (Manual) 3 Abs Neuts (Manual) 20.9 H Lymphocytes # (Manual) 2.1 Monocytes # (Manual) 0.7 Platelet Estimate NORMAL Plt Morphology Comment NORMAL RBC Morphology NORMAL Smear Tech's Comments MANUAL DIFF D-Dimer High Sensitivty Hold Blue Top VBG pH VBG pCO2 VBG pO2 VBG HCO3 VBG O2 Saturation VBG Base Excess Anion Gap 16 Estim Creat Clear Calc 23.6 Estimated GFR 28 POC Glucose 320 H Random Glucose 354 H* Lactic Acid Calcium 10.0 Magnesium 1.6 Total Bilirubin 0.4 AST 8 ALT 5 Alkaline Phosphatase 105 Troponin I High Sens 10.2 D C-Reactive Protein B-Natriuretic Peptide 282 H Total Protein 8.8 H Albumin 3.9 Urine Color Urine Appearance Urine pH Ur Specific [place] Urine Protein Urine Glucose (UA) Urine Ketones Urine Blood Urine Nitrite Ur Leukocyte Esterase Urine RBC Urine WBC Ur Squamous Epith Cells Urine Bacteria Hyaline Casts Urine Opiates Screen Ur Buprenorphine Scrn Ur Oxycodone Screen Urine Methadone Screen Urine Fentanyl Screen Ur Barbiturates Screen Ur Phencyclidine Scrn Ur Amphetamines Screen U Benzodiazepines Scrn Urine Cocaine Screen U Marijuana (THC) Screen Ethyl Alcohol Influenza Type A (PCR) NEGATIVE Influenza Type B (PCR) NEGATIVE RSV RNA Qual (PCR) NEGATIVE SARS-CoV-2 RNA (RT-PCR) NEGATIVE 12/31/23 12/31/23 12/31/23 15:48 15:50 17:04 MCV 82.8 MCH 27.6 MCHC 33.3 RDW 15.6 Plt Count 386 MPV 10.6 Immature Gran % (Auto) 0.7 H Neut % (Auto) 89.1 H Lymph % (Auto) 5.4 L [place] % (Auto) 4.6 Eos % (Auto) 0.0 Baso % (Auto) 0.2 Lymph # (Auto) 1.4 [place] # (Auto) 1.2 Eos # (Auto) 0.0 Baso # (Auto) 0.1 Abs Immat Gran (auto) 0.17 H Absolute Neuts (auto) 23.1 H Absolute Nucleated RBC 0.000 Nucleated RBC % (auto) 0.0 Neutrophils % (Manual) Band Neutrophils % Lymphocytes % (Manual) Monocytes % (Manual) Abs Neuts (Manual) Lymphocytes # (Manual) Monocytes # (Manual) Platelet Estimate Plt Morphology Comment RBC Morphology Smear Tech's Comments D-Dimer High Sensitivty 1954 Hold Blue Top SEE NOTE VBG pH 7.33 VBG pCO2 34 VBG pO2 60 VBG HCO3 18 L VBG O2 Saturation 85.0 VBG Base Excess -6.0 Anion Gap Estim Creat Clear Calc Estimated GFR POC Glucose Random Glucose Lactic Acid 1.6 Calcium Magnesium Total Bilirubin AST ALT Alkaline Phosphatase Troponin I High Sens C-Reactive Protein 18.75 H B-Natriuretic Peptide Total Protein Albumin Urine Color Urine Appearance Urine pH Ur Specific [place] Urine Protein Urine Glucose (UA) Urine Ketones Urine Blood Urine Nitrite Ur Leukocyte Esterase Urine RBC Urine WBC Ur Squamous Epith Cells Urine Bacteria Hyaline Casts Urine Opiates Screen Ur Buprenorphine Scrn Ur Oxycodone Screen Urine Methadone Screen Urine Fentanyl Screen Ur Barbiturates Screen Ur Phencyclidine Scrn Ur Amphetamines Screen U Benzodiazepines Scrn Urine Cocaine Screen U Marijuana (THC) Screen Ethyl Alcohol < 10 Influenza Type A (PCR) Influenza Type B (PCR) RSV RNA Qual (PCR) SARS-CoV-2 RNA (RT-PCR) 12/31/23 12/31/23 12/31/23 21:10 21:51 22:19 MCV MCH MCHC RDW Plt Count MPV Immature Gran % (Auto) Neut % (Auto) Lymph % (Auto) [place] % (Auto) Eos % (Auto) Baso % (Auto) Lymph # (Auto) [place] # (Auto) Eos # (Auto) Baso # (Auto) Abs Immat Gran (auto) Absolute Neuts (auto) Absolute Nucleated RBC Nucleated RBC % (auto) Neutrophils % (Manual) Band Neutrophils % Lymphocytes % (Manual) Monocytes % (Manual) Abs Neuts (Manual) Lymphocytes # (Manual) Monocytes # (Manual) Platelet Estimate Plt Morphology Comment RBC Morphology Smear Tech's Comments D-Dimer High Sensitivty Hold Blue Top VBG pH 7.26 L VBG pCO2 35 VBG pO2 52 VBG HCO3 16 L VBG O2 Saturation 72.0 VBG Base Excess -9.6 Anion Gap Estim Creat Clear Calc Estimated GFR POC Glucose 343 H Random Glucose Lactic Acid Calcium Magnesium Total Bilirubin AST ALT Alkaline Phosphatase Troponin I High Sens C-Reactive Protein B-Natriuretic Peptide Total Protein Albumin Urine Color Yellow Urine Appearance Cloudy Urine pH 5.0 Ur Specific [place] 1.020 Urine Protein 100 (2+) H Urine Glucose (UA) >=1000 H Urine Ketones 15 Urine Blood Negative Urine Nitrite Negative Ur Leukocyte Esterase Negative Urine RBC 0-2 Urine WBC 0-5 Ur Squamous Epith Cells 0-2 Urine Bacteria None Seen Hyaline Casts 0-2 Urine Opiates Screen Not Detected Ur Buprenorphine Scrn Not Detected Ur Oxycodone Screen Not Detected Urine Methadone Screen Positive H Urine Fentanyl Screen POSITIVE H Ur Barbiturates Screen Not Detected Ur Phencyclidine Scrn Not Detected Ur Amphetamines Screen Not Detected U Benzodiazepines Scrn Not Detected Urine Cocaine Screen Not Detected U Marijuana (THC) Screen Not Detected Ethyl Alcohol Influenza Type A (PCR) Influenza Type B (PCR) RSV RNA Qual (PCR) SARS-CoV-2 RNA (RT-PCR) 01/01/24 01/01/24 01/01/24 05:53 06:05 07:53 MCV 84.7 MCH 28.4 MCHC 33.6 RDW 15.9 Plt Count 270 D MPV 10.6 Immature Gran % (Auto) 0.6 H Neut % (Auto) 93.4 H Lymph % (Auto) 3.9 L [place] % (Auto) 2.0 Eos % (Auto) 0.0 Baso % (Auto) 0.1 Lymph # (Auto) 0.6 L [place] # (Auto) 0.3 Eos # (Auto) 0.0 Baso # (Auto) 0.0 Abs Immat Gran (auto) 0.08 H Absolute Neuts (auto) 13.2 H Absolute Nucleated RBC 0.000 Nucleated RBC % (auto) 0.0 Neutrophils % (Manual) Band Neutrophils % Lymphocytes % (Manual) Monocytes % (Manual) Abs Neuts (Manual) Lymphocytes # (Manual) Monocytes # (Manual) Platelet Estimate Plt Morphology Comment RBC Morphology Smear Tech's Comments VERIFIED D-Dimer High Sensitivty Hold Blue Top VBG pH VBG pCO2 VBG pO2 VBG HCO3 VBG O2 Saturation VBG Base Excess Anion Gap 18 Estim Creat Clear Calc 27.5 Estimated GFR 33 POC Glucose 421 H* 371 H* Random Glucose 429 H* Lactic Acid Calcium 8.6 D Magnesium Total Bilirubin AST ALT Alkaline Phosphatase Troponin I High Sens C-Reactive Protein B-Natriuretic Peptide Total Protein Albumin Urine Color Urine Appearance Urine pH Ur Specific [place] Urine Protein Urine Glucose (UA) Urine Ketones Urine Blood Urine Nitrite Ur Leukocyte Esterase Urine RBC Urine WBC Ur Squamous Epith Cells Urine Bacteria Hyaline Casts Urine Opiates Screen Ur Buprenorphine Scrn Ur Oxycodone Screen Urine Methadone Screen Urine Fentanyl Screen Ur Barbiturates Screen Ur Phencyclidine Scrn Ur Amphetamines Screen U Benzodiazepines Scrn Urine Cocaine Screen U Marijuana (THC) Screen Ethyl Alcohol Influenza Type A (PCR) Influenza Type B (PCR) RSV RNA Qual (PCR) SARS-CoV-2 RNA (RT-PCR) 01/01/24 10:58 MCV MCH MCHC RDW Plt Count MPV Immature Gran % (Auto) Neut % (Auto) Lymph % (Auto) [place] % (Auto) Eos % (Auto) Baso % (Auto) Lymph # (Auto) [place] # (Auto) Eos # (Auto) Baso # (Auto) Abs Immat Gran (auto) Absolute Neuts (auto) Absolute Nucleated RBC Nucleated RBC % (auto) Neutrophils % (Manual) Band Neutrophils % Lymphocytes % (Manual) Monocytes % (Manual) Abs Neuts (Manual) Lymphocytes # (Manual) Monocytes # (Manual) Platelet Estimate Plt Morphology Comment RBC Morphology Smear Tech's Comments D-Dimer High Sensitivty Hold Blue Top VBG pH VBG pCO2 VBG pO2 VBG HCO3 VBG O2 Saturation VBG Base Excess Anion Gap Estim Creat Clear Calc Estimated GFR POC Glucose 286 H Random Glucose Lactic Acid Calcium Magnesium Total Bilirubin AST ALT Alkaline Phosphatase Troponin I High Sens C-Reactive Protein B-Natriuretic Peptide Total Protein Albumin Urine Color Urine Appearance Urine pH Ur Specific [place] Urine Protein Urine Glucose (UA) Urine Ketones Urine Blood Urine Nitrite Ur Leukocyte Esterase Urine RBC Urine WBC Ur Squamous Epith Cells Urine Bacteria Hyaline Casts Urine Opiates Screen Ur Buprenorphine Scrn Ur Oxycodone Screen Urine Methadone Screen Urine Fentanyl Screen Ur Barbiturates Screen Ur Phencyclidine Scrn Ur Amphetamines Screen U Benzodiazepines Scrn Urine Cocaine Screen U Marijuana (THC) Screen Ethyl Alcohol Influenza Type A (PCR) Influenza Type B (PCR) RSV RNA Qual (PCR) SARS-CoV-2 RNA (RT-PCR) Assessment and Plan (1) Acute kidney injury: Status: Acute (2) Constipation: Status: Acute (3) Leukocytosis: Status: Acute (4) Acute hypoxic respiratory failure: Status: Acute (5) Tobacco dependence: Status: Acute Plan Lazara Driscoll is a 63 y/o woman admitted with nonbloody emesis of 2 days, abdominal pain, constipation, mild shortness of breath and cough and diagnosed with following medical issues.: Hypoxic respiratory failure likely secondary to infectious/inflammatory pneumonitis, atypical pneumonia question interstitial lung disease and acute COPD exacerbation. V/Q scan nondiagnostic, chronically increased D-dimer, WBC trending down, blood cultures pending. Hypoxia resolved, not on home O2, pH 7.26, pCO2 35 bicarb 16, elevated CRP Continue IV azithromycin and IV ceftriaxone, cough medication, IV steroids Obtain pulmonary consult DC therapeutic Lovenox Acute kidney injury, likely secondary to poor p.o. intake and vomiting, creatinine improved from 1.8-1.6 continue IV fluids, avoid hypotension, hold lisinopril, Follow renal function. Epigastric pain associated with nausea and vomiting, unclear etiology, likely due to constipation, resolved, Abdomen pelvis CT scan done yesterday showed severe constipation. DC IV Protonix and transition to by mouth PPI, add lactulose Elevated white count. Likely secondary to vomiting and dehydration, No lactic acidosis, no fever, no tachycardia. Blood culture pending WBC trending down Constipation. Likely due to chronic methadone use continue stool softeners, laxative. Type 2 diabetes mellitus, uncontrolled. BG checks before meals at bedtime, hold Tresiba, placed on Lantus and Insulin sliding scale, continue diabetic diet. History of drug abuse. Continue methadone 135 mg p.o. daily. Dyslipidemia. Continue statin. Tobacco smoking. Counseling done will place on nicotine patch. History of pulmonary embolism. Pulmonary perfusion scan non diagnostic, no left lower extremity swelling, hypoxia resolved will DC anticoagulation . Hypertension elevated blood pressure resume metoprolol hold lisinopril due to AUBRIE follow BP DVT prophylaxis: Lovenox subQ Code status: Full Patient needs continued inpatient hospitalization for AUBRIE,on IV fluids, empiric IV antibiotic therapy, IV steroids, bronchodilator therapy and need for expert consultation. Quality Stroke Does the patient have a stroke diagnosis?: No VTE Prior VTE?: No VTE Risk Level:: Medical - moderate - high VTE Device Contraindication: Treatment Not Indicated VTE Drug Contraindication: N/A - Med Ordered
[2024-01-01] MEDS: 0.9 % Sodium Chloride 1,000 ML 75 ML IVCONT ×2 (12:41→23:50)
--- NOTE | 2024-01-01 12:41 | HE.PHANOTE ---
METHADONE Dose: 130mg per SUSANA Wang at [facility]. Last dose 12/30/23 [facility]NA patient, take home bottles for 1 weeks getting her through 01/06/24.
[2024-01-01] MEDS: Metoprolol Succinate ER 25 MG TAB.ER.24H PO (12:42)
[2024-01-01] MEDS: amLODIPine Besylate 10 MG TABLET PO (12:42)
[2024-01-01] MEDS: methADONE HCl 20 MG/2 ML ORAL.CONC 130 MG PO (13:07)
[2024-01-01] MEDS: Lactulose 20 GM/30 ML SOLUTION PO (14:35)
[2024-01-01] MEDS: methylPREDNISolone Sod Succ 40 MG/ML VIAL IVPUSH (14:35)
[2024-01-01] MEDS: Nicotine 14 MG PATCH.TD24 TRANSDERMA (14:35)
[2024-01-01 15:40] VITALS: BP 129/63; PULSE 54; RESP 16; TEMP 36.2; O2SAT 94
[2024-01-01 16:23] LABS: Glucose, Whole Blood 110 mg/dL (60-115)
[2024-01-01 20:00] VITALS: BP 117/53; PULSE 53; RESP 17; TEMP 36.4; O2SAT 95
[2024-01-01 21:43] LABS: Glucose, Whole Blood 336 mg/dL (60-115)
[2024-01-01] MEDS: Insulin Glargine,Hum.rec.anlog 100 UNIT/ML 10 ML VIAL 10 UNIT SUBCUT (21:53)
[2024-01-01] MEDS: Mirtazapine 7.5 MG TABLET PO (21:55)
[2024-01-01] MEDS: bisacodyL 5 MG TABLET.DR PO (21:55)
[2024-01-01] MEDS: Milk of Magnesia 30 ML ORAL.SUSP PO (21:56)
[2024-01-01] MEDS: Calcium Carbonate 750 MG TAB.CHEW PO (21:56)
[2024-01-01] MEDS: Azithromycin 500 MG in 0.9 % Sodium Chloride 250 ML 125 MG IV (21:58)
[2024-01-01] MEDS: Albuterol/Iprat 2.5/0.5MG 3 ML AMPUL.NEB INHALE (22:13)
[2024-01-01 22:14] VITALS: PULSE 65; RESP 18; O2SAT 95
[2024-01-02] VITALS (11 sets, daily range): BP systolic 128–163; BP diastolic 59–86; PULSE 59–76; RESP 16–20; TEMP 36.3–36.6; O2SAT 94–99
[2024-01-02] MEDS: methylPREDNISolone Sod Succ 40 MG/ML VIAL IVPUSH ×2 (01:02→13:06)
[2024-01-02] MEDS: Omeprazole 40 MG CAPSULE.DR PO (06:39)
[2024-01-02 07:22] LABS: Glucose, Whole Blood 323 mg/dL (60-115)
[2024-01-02] MEDS: buPROPion HCl XL 300 MG TAB.ER.24H PO (08:06)
[2024-01-02] MEDS: Aspirin Enteric Coated 81 MG TABLET.DR PO (08:06)
[2024-01-02] MEDS: Atorvastatin Calcium 40 MG TABLET PO (08:06)
[2024-01-02] MEDS: methADONE HCl 20 MG/2 ML ORAL.CONC 130 MG PO (08:07)
[2024-01-02] MEDS: Nicotine 14 MG PATCH.TD24 TRANSDERMA (08:07)
[2024-01-02] MEDS: Insulin Lispro 100 UNIT/ML 3 ML VIAL SUBCUT ×4 (08:07→21:29)
[2024-01-02] MEDS: 0.9 % Sodium Chloride Flush 3 ML SYRINGE IVFLUSH ×3 (08:08→21:29)
[2024-01-02] MEDS: Metoprolol Succinate ER 25 MG TAB.ER.24H PO (08:14)
[2024-01-02] MEDS: amLODIPine Besylate 10 MG TABLET PO (08:15)
[2024-01-02] MEDS: Albuterol/Iprat 2.5/0.5MG 3 ML AMPUL.NEB INHALE ×3 (08:30→20:01)
[2024-01-02] MEDS: Insulin Glargine,Hum.rec.anlog 100 UNIT/ML 10 ML VIAL 10 UNIT SUBCUT ×2 (09:00→21:28)
[2024-01-02] MEDS: Enoxaparin Sodium 30 MG/0.3 ML SYRINGE SUBCUT (09:01)
--- NOTE | 2024-01-02 11:43 | HO.PM.IMPN ---
Subjective Subjective Date of Service: 01/02/24 Interval History: Being followed for hypoxic respiratory failure. Complaining of feeling tired, less shortness of breath and nausea denies fever chills, tolerating diet no acute events overnight. Review of Systems All other system reviewed and are negative. Physical Exam Vital Signs: Vital Signs: Last Vital Signs Temp 97.6 F 01/02/24 08:00 Pulse 64 01/02/24 08:33 Resp 18 01/02/24 08:33 BP 163/72 H 01/02/24 08:15 Pulse Ox 96 01/02/24 08:00 O2 Del Method Room Air 01/02/24 08:00 O2 Flow Rate 5 01/01/24 08:00 Oxygen Flow Rate 2 12/31/23 15:24 BMI result Body Mass Index 25.6 Const: Other: Gen: Awake alert x3, in no acute distress. HEENT: sclera anicteric, moist mucus membranes. Neck: supple. Lungs: Bilateral expiratory wheeze Heart: regular rate and rhythm, no murmurs Abd: soft, non-tender, non-distended, bowel sounds audible Ext: s/p R BKA Skin: warm/well-perfused Neuro: alert and oriented x3, no focal findings Psych: appropriate affect Objective Data Active Medications Albuterol Sulfate (Albuterol Sulfate (0.083%) 2.5 Mg/3 Ml Vial.Neb) 2.5 mg INHALE Q2H PRN PRN Reason: Shortness of Breath/Wheezing Albuterol/Ipratropium (Albuterol/Iprat 2.5/0.5mg 3 Ml Ampul.Neb) 3 ml INHALE RQ4H WHILE AWAKE [facility] Last Admin: 01/02/24 08:30 Dose: 3 ml Documented By: UMU Amlodipine Besylate (Amlodipine Besylate 10 Mg Tablet) 10 mg PO DAILY [facility]; Protocol Last Admin: 01/02/24 08:15 Dose: 10 mg Documented By: PHUONG Aspirin (Aspirin Enteric Coated 81 Mg Tablet.) 81 mg PO DAILY [facility] Last Admin: 01/02/24 08:06 Dose: 81 mg Documented By: PHUONG Atorvastatin Calcium (Atorvastatin Calcium 40 Mg Tablet) 40 mg PO DAILY [facility] Last Admin: 01/02/24 08:06 Dose: 40 mg Documented By: PHUONG Bisacodyl (Bisacodyl 5 Mg Tablet.Dr) 5 mg PO BEDTIME [facility] Last Admin: 01/01/24 21:55 Dose: 5 mg Documented By: SARITA Bupropion HCl (Bupropion Hcl Xl 300 Mg Tab.Er.24h) 300 mg PO DAILY [facility] Last Admin: 01/02/24 08:06 Dose: 300 mg Documented By: PHUONG Calcium Carbonate (Calcium Carbonate 750 Mg Tab.Chew) 750 mg PO Q4H PRN PRN Reason: Heartburn Last Admin: 01/01/24 21:56 Dose: 750 mg Documented By: SARITA Enoxaparin Sodium (Enoxaparin Sodium 30 Mg/0.3 Ml Syringe) 30 mg SUBCUT Q24H [facility] Last Admin: 01/02/24 09:01 Dose: 30 mg Documented By: PHUONG Glucose (Glucose Gel 15 Gm Gel..Gram.) 15 gm PO Q15M PRN; Protocol PRN Reason: per Hypoglycemia Standing Ord. Guaifenesin/Dextromethorphan (Guaifenesin Dm 100/10/5 Ml 5 Ml Syrup) 5 ml PO Q6H PRN PRN Reason: cough Azithromycin 500 mg/ Sodium (Chloride) 250 mls @ 125 mls/hr IV Q24H [facility] Last Infusion: 01/02/24 02:18 Dose: Infused Documented By: SARITA Sodium Chloride (Ns) 1,000 mls @ 75 mls/hr IVCONT .[id number] [facility] Last Admin: 01/01/24 23:50 Dose: 75 mls/hr Documented By: SARITA Dextrose (D10) 250 mls @ 750 mls/hr IV Q15M PRN; Protocol PRN Reason: per Hypoglycemia Standing Ord. Insulin Glargine (Insulin Glargine,Hum.Rec.Anlog 100 Unit/Ml 10 Ml Vial) 10 unit SUBCUT BEDTIME [facility] Last Admin: 01/01/24 21:53 Dose: 10 unit Documented By: SARITA Insulin Glargine (Insulin Glargine,Hum.Rec.Anlog 100 Unit/Ml 10 Ml Vial) 10 unit SUBCUT DAILY [facility] Last Admin: 01/02/24 09:00 Dose: 10 unit Documented By: PHUONG Insulin Human Lispro (Insulin Lispro 100 Unit/Ml 3 Ml Vial) 0 unit SUBCUT QIDACHS [facility]; Protocol Last Admin: 01/02/24 08:07 Dose: 8 unit Documented By: PHUONG Magnesium Hydroxide (Milk Of Magnesia 30 Ml Oral.Susp) 30 ml PO DAILY PRN PRN Reason: Constipation Last Admin: 01/01/24 21:56 Dose: 30 ml Documented By: SARITA Melatonin (Melatonin 3 Mg Tablet) 6 mg PO BEDTIME PRN PRN Reason: Insomnia Methadone HCl (Methadone Hcl 20 Mg/2 Ml Oral.Conc) 130 mg PO DAILY [facility] Last Admin: 01/02/24 08:07 Dose: 130 mg Documented By: PHUONG Methylprednisolone Sodium Succinate (Methylprednisolone Sod Succ 40 Mg/Ml Vial) 40 mg IVPUSH Q12H [facility] Last Admin: 01/02/24 01:02 Dose: 40 mg Documented By: SARITA Metoprolol Succinate (Metoprolol Succinate Er 25 Mg Tab.Er.24h) 25 mg PO DAILY [facility]; Protocol Last Admin: 01/02/24 08:14 Dose: 25 mg Documented By: PHUONG Mirtazapine (Mirtazapine 7.5 Mg Tablet) 7.5 mg PO BEDTIME [facility] Last Admin: 01/01/24 21:55 Dose: 7.5 mg Documented By: SARITA Morphine Sulfate (Morphine Sulfate 2 Mg/Ml Cartridge) 2 mg IVPUSH Q3H PRN; Protocol PRN Reason: Pain, Severe (Pain Scale 7-10) Nicotine (Nicotine 14 Mg Patch.Td24) 14 mg TRANSDERMA DAILY [facility] Last Admin: 01/02/24 08:07 Dose: 14 mg Documented By: PHUONG Omeprazole (Omeprazole 40 Mg Capsule.Dr) 40 mg PO DAILY@0630 [facility] Last Admin: 01/02/24 06:39 Dose: 40 mg Documented By: SARITA Ondansetron HCl (Ondansetron Hcl 4 Mg/2 Ml Vial) 4 mg IVPUSH Q8H PRN PRN Reason: Nausea and Vomiting Prochlorperazine Edisylate (Prochlorperazine Edisylate 10 Mg/2 Ml Vial) 5 mg IVPUSH Q4H PRN PRN Reason: Nausea and Vomiting Sodium Chloride (0.9 % Sodium Chloride Flush 3 Ml Syringe) 3 ml IVFLUSH QSHIFT [facility]CI[facility] Last Admin: 01/02/24 08:08 Dose: 3 ml Documented By: PHUONG Labs 01/01/24 06:05 01/01/24 06:05 Labs: Laboratory Results - last 24 hr 01/01/24 01/01/24 01/01/24 10:58 16:15 21:23 POC Glucose 286 H 110 336 H 01/02/24 07:04 POC Glucose 323 H Microbiology Microbiology Results: Microbiology 12/31/23 17:04 Blood Culture - Preliminary Blood - Venous No growth after 24 hours. 12/31/23 17:04 Blood Culture - Preliminary Blood - Venous No growth after 24 hours. Assessment and Plan (1) Acute kidney injury: Status: Acute (2) Constipation: Status: Acute (3) Leukocytosis: Status: Acute (4) Acute hypoxic respiratory failure: Status: Acute (5) Tobacco dependence: Status: Acute Plan Lazara Driscoll is a 63 y/o woman admitted with nonbloody emesis of 2 days, abdominal pain, constipation, mild shortness of breath and cough and diagnosed with following medical issues.: Acute Hypoxic respiratory failure likely secondary to infectious/inflammatory pneumonitis, atypical pneumonia, question interstitial lung disease and acute COPD exacerbation. Shortness of breath improving persistent bilateral expiratory wheeze V/Q scan nondiagnostic, chronically increased D-dimer, WBC trending down, blood cultures pending. Hypoxia resolved, not on home O2, pH 7.26, pCO2 35 bicarb 16, likely due to tachypnea, elevated CRP Continue IV azithromycin and IV ceftriaxone day 2/, cough medication, IV steroids pulmonary consult Acute kidney injury, likely secondary to poor p.o. intake and vomiting, creatinine improved from 1.8-1.6 ,avoid hypotension, hold lisinopril, Follow renal function. Epigastric pain associated with nausea and vomiting, unclear etiology, likely due to constipation, resolved, Abdomen pelvis CT scan showed severe constipation. Continue PPI, lactulose, constipation resolved Constipation. Resolved, was Likely due to chronic methadone use continue stool softeners, laxative. Type 2 diabetes mellitus, uncontrolled. Likely due to steroids will place on Lantus 10 units b.i.d. adjust insulin sliding scale, follow point of care q.i.d.ac History of drug abuse. Continue methadone 135 mg p.o. daily. Dyslipidemia. Continue statin. Tobacco smoking. Counseling done , on nicotine patch. History of pulmonary embolism. Pulmonary perfusion scan non diagnostic, no left lower extremity swelling, hypoxia resolved will DC anticoagulation . Hypertension continue Norvasc, metoprolol , continue to hold lisinopril due to AUBIRE follow BP DVT prophylaxis: Lovenox subQ Code status: Full Patient needs continued inpatient hospitalization for AUBRIE,on IV fluids, empiric IV antibiotic therapy, IV steroids, bronchodilator therapy and need for expert consultation. Quality Stroke Does the patient have a stroke diagnosis?: No VTE Prior VTE?: No VTE Risk Level:: Medical - moderate - high VTE Device Contraindication: Treatment Not Indicated VTE Drug Contraindication: N/A - Med Ordered
[2024-01-02 12:01] LABS: Glucose, Whole Blood 387 mg/dL (60-115)
[2024-01-02 12:18] LABS: Hematocrit 26.9 % (37.0-47.0); Hemoglobin 8.9 g/dl (12.0-16.0); Mean Corpuscular HGB Conc 33.1 g/dl (31.0-35.0); Mean Corpuscular Hemoglobin 28.3 pg (27.0-33.0); Mean Corpuscular Volume 85.4 fL (80.0-98.0); Mean Platelet Volume 11.1 fL (9.4-12.3); Platelet Count 299 X10*3/uL (160-400); Red Blood Count 3.15 X10*6/uL (4.20-5.50); Red Cell Distribution Width 16.4 % (11.0-16.0); White Blood Count 14.7 X10*3/uL (4.8-10.8)
[2024-01-02 12:42] LABS: Anion Gap 20 (12-20); Blood Urea Nitrogen 22 mg/dL (9-16); Calcium 8.7 mg/dL (8.4-10.2); Carbon Dioxide 21 mmol/L (22-29); Chloride 104 mmol/L (96-108); Creatinine Clr Calc Pharmacy 40.4; Estimated Glomerular Filt Rate 50; Glucose Random 415 mg/dL (60-115); Potassium 4.5 mmol/L (3.3-5.1); Sodium 140 mmol/L (135-145)
[2024-01-02 16:34] LABS: Glucose, Whole Blood 266 mg/dL (60-115)
[2024-01-02] MEDS: bisacodyL 5 MG TABLET.DR PO (19:59)
[2024-01-02] MEDS: Mirtazapine 7.5 MG TABLET PO (19:59)
[2024-01-02 21:24] LABS: Glucose, Whole Blood 264 mg/dL (60-115)
[2024-01-02] MEDS: Azithromycin 500 MG in 0.9 % Sodium Chloride 250 ML 125 MG IV (21:29)
[2024-01-03] VITALS (11 sets, daily range): BP systolic 131–176; BP diastolic 64–86; PULSE 59–74; RESP 18; TEMP 36.2–36.7; O2SAT 92–98
[2024-01-03] MEDS: methylPREDNISolone Sod Succ 40 MG/ML VIAL IVPUSH ×2 (01:12→14:06)
[2024-01-03] MEDS: Omeprazole 40 MG CAPSULE.DR PO (05:11)
[2024-01-03] MEDS: Albuterol/Iprat 2.5/0.5MG 3 ML AMPUL.NEB INHALE ×4 (07:51→20:11)
[2024-01-03 07:53] LABS: Glucose, Whole Blood 309 mg/dL (60-115)
[2024-01-03] MEDS: Metoprolol Succinate ER 25 MG TAB.ER.24H PO (08:08)
[2024-01-03] MEDS: Atorvastatin Calcium 40 MG TABLET PO (08:08)
[2024-01-03] MEDS: buPROPion HCl XL 300 MG TAB.ER.24H PO (08:08)
[2024-01-03] MEDS: methADONE HCl 20 MG/2 ML ORAL.CONC 130 MG PO (08:08)
[2024-01-03] MEDS: Aspirin Enteric Coated 81 MG TABLET.DR PO (08:08)
[2024-01-03] MEDS: amLODIPine Besylate 10 MG TABLET PO (08:08)
[2024-01-03] MEDS: Insulin Lispro 100 UNIT/ML 3 ML VIAL SUBCUT ×4 (08:09→21:26)
[2024-01-03] MEDS: Enoxaparin Sodium 30 MG/0.3 ML SYRINGE SUBCUT (08:09)
[2024-01-03] MEDS: Nicotine 14 MG PATCH.TD24 TRANSDERMA (08:10)
[2024-01-03] MEDS: Insulin Glargine,Hum.rec.anlog 100 UNIT/ML 10 ML VIAL 10 UNIT SUBCUT ×2 (08:10→21:20)
[2024-01-03] MEDS: 0.9 % Sodium Chloride Flush 3 ML SYRINGE IVFLUSH ×3 (08:11→21:33)
[2024-01-03] MEDS: cefTRIAXone sodium 1 GM in 0.9 % Sodium Chloride 50 ML IV (08:18)
[2024-01-03 11:19] LABS: Glucose, Whole Blood 384 mg/dL (60-115)
--- NOTE | 2024-01-03 11:23 | P.CONPL_ITS ---
History of Present Illness History of Present Illness Consult date: 01/03/24 Chief complaint: Hypoxic respiratory failure Narrative: This is an inpatient pulmonary consultation. The patient is a 63 years old woman with past medical history significant for PE on Xarelto, COPD on home oxygen, type 2 diabetes mellitus on insulin, drug use on methadone and ongoing tobacco smoking was brought to the emergency department via EMS due to epigastric pain that started 2 days ago associated with yellowish nonbloody emesis x2. The pain is constant with an intensity of 8/10 without radiation. Denied diarrhea or constipation. She also complained of productive cough and mild shortness on breath. Her O2 sat was found to be low by EMS and was placed on supplemental oxygen. Denies chest pain, palpitations or dizziness. She did not report any fever, chills or pain with urination. Patient denied alcohol abuse or illicit drug use.The Patient was evaluated in the emergency department yesterday for productive cough, vomiting and not feeling well. She underwent abdominal pelvis CT scan that is remarkable for moderate severe fecal retention. She also underwent a chest CTA , personally reviewed by me, showed diffuse antral areas of increased ground-glass attenuations and also scattered areas of bronchial wall thickening, possibly related to aspiration pneumonitis versus drug-induced based on her positive tox screen. Current the patient has been feeling better. She is still having crackles and rhonchi on examination. Review of Systems 2 Review of Systems: General: No fevers, malaise, unintentional weight loss HEENT: No blurred vision, diplopia. No sore throat, nasal congestion, rhinorrhea, sinus pain, ear pain Cardiovascular: No chest pain, palpitations, or leg edema Respiratory: No shortness of breath, wheezing, +cough GI: No abdominal pain, nausea, vomiting, diarrhea, constipation, melena, hematochezia : No dysuria, hematuria, increased urinary frequency, decreased urinary output MSK: No myalgia, back pain Neuro: No headaches, weakness, paresthesias Skin: No rashes or lesions PMFSH Past Medical History Medical History Diabetic osteomyelitis Below-knee amputation of right lower extremity Osteomyelitis of ankle Charcot foot due to diabetes mellitus Acute hyperglycemia Cellulitis Gastroenteritis Gastritis Constipation Diabetic foot ulcer New onset of congestive heart failure DKA (diabetic ketoacidoses) COVID-19 Dyslipidemia Glaucoma Pulmonary emboli Depression Chronic prescription opiate use Diabetes mellitus Pulmonary nodule Tobacco dependence COPD (chronic obstructive pulmonary disease) Family History Family History Other CVA (cerebral vascular accident) Surgical History Surgical History History of below-knee amputation of right lower extremity (01/13/22) Cataract extraction status, right eye Cataract extraction status, left eye Hx of cholecystectomy Social History Social History Household Members: Children Housing: Apartment Housing Other:: hotel Do you presently have visiting nurse or other home services: Yes Unable to assess alcohol history related to: Unknown Alcohol intake: never Comment: refused telesitter Patient Tobacco Use Status: Current everyday Tobacco user Tobacco use type: Cigarette Cigarette Packs Per Day: 0.3 Cigarettes Per Day: 6.0 Years Smoked: 50 e-Cigarette/Vaping Use: Currently Using Second Hand Smoke Exposure: No Substance Use Type: Former Substance User Advance Directives Date on File: 01/12/22 service: No Current occupational status: disabled Meds Allergies Allergy/AdvReac Type Severity Reaction Status Date / Time No Known Allergies Allergy Verified 12/31/23 15:29 Active Medications: Current Medications Albuterol Sulfate (Albuterol Sulfate (0.083%) 2.5 Mg/3 Ml Vial.Neb) 2.5 mg INHALE Q2H PRN PRN Reason: Shortness of Breath/Wheezing Albuterol/Ipratropium (Albuterol/Iprat 2.5/0.5mg 3 Ml Ampul.Neb) 3 ml INHALE RQ4H WHILE AWAKE [facility] Last Admin: 01/03/24 07:51 Dose: 3 ml Amlodipine Besylate (Amlodipine Besylate 10 Mg Tablet) 10 mg PO DAILY [facility]; Protocol Last Admin: 01/03/24 08:08 Dose: 10 mg Aspirin (Aspirin Enteric Coated 81 Mg Tablet.) 81 mg PO DAILY [facility] Last Admin: 01/03/24 08:08 Dose: 81 mg Atorvastatin Calcium (Atorvastatin Calcium 40 Mg Tablet) 40 mg PO DAILY [facility] Last Admin: 01/03/24 08:08 Dose: 40 mg Bisacodyl (Bisacodyl 5 Mg Tablet.Dr) 5 mg PO BEDTIME [facility] Last Admin: 01/02/24 19:59 Dose: 5 mg Bupropion HCl (Bupropion Hcl Xl 300 Mg Tab.Er.24h) 300 mg PO DAILY [facility] Last Admin: 01/03/24 08:08 Dose: 300 mg Calcium Carbonate (Calcium Carbonate 750 Mg Tab.Chew) 750 mg PO Q4H PRN PRN Reason: Heartburn Last Admin: 01/01/24 21:56 Dose: 750 mg Enoxaparin Sodium (Enoxaparin Sodium 30 Mg/0.3 Ml Syringe) 30 mg SUBCUT Q24H [facility] Last Admin: 01/03/24 08:09 Dose: 30 mg Glucose (Glucose Gel 15 Gm Gel..Gram.) 15 gm PO Q15M PRN; Protocol PRN Reason: per Hypoglycemia Standing Ord. Guaifenesin/Dextromethorphan (Guaifenesin Dm 100/10/5 Ml 5 Ml Syrup) 5 ml PO Q6H PRN PRN Reason: cough Azithromycin 500 mg/ Sodium (Chloride) 250 mls @ 125 mls/hr IV Q24H [facility] Last Infusion: 01/02/24 23:56 Dose: Infused Dextrose (D10) 250 mls @ 750 mls/hr IV Q15M PRN; Protocol PRN Reason: per Hypoglycemia Standing Ord. Ceftriaxone Sodium 1 gm/ (Sodium Chloride) 50 mls @ 100 mls/hr IV Q24H [facility] Last Infusion: 01/03/24 09:37 Dose: Infused Insulin Glargine (Insulin Glargine,Hum.Rec.Anlog 100 Unit/Ml 10 Ml Vial) 10 unit SUBCUT BEDTIME [facility] Last Admin: 01/02/24 21:28 Dose: 10 unit Insulin Glargine (Insulin Glargine,Hum.Rec.Anlog 100 Unit/Ml 10 Ml Vial) 10 unit SUBCUT DAILY [facility] Last Admin: 01/03/24 08:10 Dose: 10 unit Insulin Human Lispro (Insulin Lispro 100 Unit/Ml 3 Ml Vial) 0 unit SUBCUT QIDACHS [facility]; Protocol Last Admin: 01/03/24 08:09 Dose: 12 unit Magnesium Hydroxide (Milk Of Magnesia 30 Ml Oral.Susp) 30 ml PO DAILY PRN PRN Reason: Constipation Last Admin: 01/01/24 21:56 Dose: 30 ml Melatonin (Melatonin 3 Mg Tablet) 6 mg PO BEDTIME PRN PRN Reason: Insomnia Methadone HCl (Methadone Hcl 20 Mg/2 Ml Oral.Conc) 130 mg PO DAILY [facility] Last Admin: 01/03/24 08:08 Dose: 130 mg Methylprednisolone Sodium Succinate (Methylprednisolone Sod Succ 40 Mg/Ml Vial) 40 mg IVPUSH Q12H [facility] Last Admin: 01/03/24 01:12 Dose: 40 mg Metoprolol Succinate (Metoprolol Succinate Er 25 Mg Tab.Er.24h) 25 mg PO DAILY [facility]; Protocol Last Admin: 01/03/24 08:08 Dose: 25 mg Mirtazapine (Mirtazapine 7.5 Mg Tablet) 7.5 mg PO BEDTIME [facility] Last Admin: 01/02/24 19:59 Dose: 7.5 mg Morphine Sulfate (Morphine Sulfate 2 Mg/Ml Cartridge) 2 mg IVPUSH Q3H PRN; Protocol PRN Reason: Pain, Severe (Pain Scale 7-10) Nicotine (Nicotine 14 Mg Patch.Td24) 14 mg TRANSDERMA DAILY [facility] Last Admin: 01/03/24 08:10 Dose: 14 mg Omeprazole (Omeprazole 40 Mg Capsule.Dr) 40 mg PO DAILY@0630 [facility] Last Admin: 01/03/24 05:11 Dose: 40 mg Ondansetron HCl (Ondansetron Hcl 4 Mg/2 Ml Vial) 4 mg IVPUSH Q8H PRN PRN Reason: Nausea and Vomiting Sodium Chloride (0.9 % Sodium Chloride Flush 3 Ml Syringe) 3 ml IVFLUSH QSHIFT [facility] Last Admin: 01/03/24 08:11 Dose: 3 ml Home Medications ?Medication ?Instructions ?Recorded ?Confirmed ?Last Taken ?Type albuterol sulfate 90 mcg/actuation 2 puff PO Q4H PRN Respiratory 04/24/20 01/01/24 10/12/23 History aerosol inhaler Distress aspirin 81 mg tablet,delayed 81 mg PO DAILY 04/24/20 01/01/24 12/29/23 History release atorvastatin 40 mg tablet 40 mg PO DAILY 04/24/20 01/01/24 12/29/23 History bupropion HCl 150 mg tablet,12 hr 150 mg PO BID 04/24/20 01/01/24 12/29/23 History sustained-release lancets 33 gauge #100 ea 04/24/20 10/13/2324 History lisinopril 10 mg tablet 10 mg PO DAILY 04/24/20 01/01/24 12/29/23 History metformin 1,000 mg tablet 1,000 mg PO BIDWM 04/24/20 01/01/24 12/29/23 History omeprazole 20 mg capsule,delayed 20 mg PO DAILY@0630 04/24/20 01/01/24 12/29/23 History release gabapentin 600 mg tablet 600 mg PO TID 05/03/20 01/01/24 12/29/23 History insulin degludec 100 unit/mL (3 20 unit subcut BEDTIME 10/13/23 01/01/24 12/29/23 History mL) subcutaneous pen (Tresiba FlexTouch U-100 insulin) acetaminophen 325 mg capsule 325 mg PO QID PRN Pain 11/02/23 01/01/24 Unknown History insulin aspart (niacinamide) 0 sliding scale dose subcut 12/31/23 01/01/24 12/29/23 History (U-100) 100 unit/mL subcutaneous USEASDIRECTD solution (Fiasp U-100 Insulin) metoprolol succinate 25 mg 25 mg PO DAILY 12/31/23 01/01/24 12/29/23 History tablet,extended release 24 hr mirtazapine 7.5 mg tablet 7.5 mg PO BEDTIME 12/31/23 01/01/24 12/29/23 History fluticasone furoate 100 1 inh inhalation DAILY 01/01/24 01/01/24 12/29/23 History mcg/actuation blister powder for inhalation (Arnuity Ellipta) methadone 10 mg/mL oral concentrate 130 mg PO DAILY 01/01/24 01/01/24 12/30/23 History sulfamethoxazole 800 1 tab PO MOWEFR 01/01/24 01/01/24 12/29/23 History mg-trimethoprim 160 mg tablet (Bactrim DS) zolpidem 10 mg tablet 10 mg PO BEDTIME PRN Sleep 01/01/24 01/01/24 Unknown History Physical Exam 2 Vital Signs: Vital Signs: Last Vital Signs Temp 97.2 F 01/03/24 08:00 Pulse 60 01/03/24 08:00 Resp 18 01/03/24 08:00 BP 176/86 H 01/03/24 08:00 Pulse Ox 98 01/03/24 08:00 O2 Del Method Room Air 01/03/24 08:00 O2 Flow Rate 5 01/01/24 08:00 Oxygen Flow Rate 2 12/31/23 15:24 BMI result Body Mass Index 25.6 Const: Other: Gen: Awake alert x3, in no acute distress. HEENT: sclera anicteric, moist mucus membranes. Neck: supple. Lungs: Bilateral expiratory wheeze +fine crackles and rhonhi Heart: regular rate and rhythm, no murmurs Abd: soft, non-tender, non-distended, bowel sounds audible Ext: s/p R BKA Skin: warm/well-perfused Neuro: alert and oriented x3, no focal findings Psych: appropriate affect Results Laboratory Findings 01/02/24 12:03 01/02/24 12:03 Abnormal lab findings: Abnormal Labs 12/31/23 12/31/23 12/31/23 15:28 15:47 15:50 WBC 23.8 H RBC 4.02 L Hgb 11.3 L Hct 33.3 L RDW Immature Gran % (Auto) Neut % (Auto) Lymph % (Auto) Lymph # (Auto) Abs Immat Gran (auto) Absolute Neuts (auto) Neutrophils % (Manual) 80 H Band Neutrophils % 8 H Lymphocytes % (Manual) 9 L Abs Neuts (Manual) 20.9 H VBG pH VBG HCO3 18 L Sodium 132 L Carbon Dioxide 20 L BUN 32 H Creatinine 1.85 H POC Glucose 320 H Random Glucose 354 H* C-Reactive Protein B-Natriuretic Peptide 282 H Total Protein 8.8 H Urine Protein Urine Glucose (UA) Urine Methadone Screen Urine Fentanyl Screen 12/31/23 12/31/23 12/31/23 17:04 21:10 21:51 WBC 25.9 H RBC 3.95 L Hgb 10.9 L Hct 32.7 L RDW Immature Gran % (Auto) 0.7 H Neut % (Auto) 89.1 H Lymph % (Auto) 5.4 L Lymph # (Auto) Abs Immat Gran (auto) 0.17 H Absolute Neuts (auto) 23.1 H Neutrophils % (Manual) Band Neutrophils % Lymphocytes % (Manual) Abs Neuts (Manual) VBG pH 7.26 L VBG HCO3 16 L Sodium Carbon Dioxide BUN Creatinine POC Glucose 343 H Random Glucose C-Reactive Protein 18.75 H B-Natriuretic Peptide Total Protein Urine Protein Urine Glucose (UA) Urine Methadone Screen Urine Fentanyl Screen 12/31/23 01/01/24 01/01/24 22:19 05:53 06:05 WBC 14.1 H RBC 3.34 L Hgb 9.5 L Hct 28.3 L RDW Immature Gran % (Auto) 0.6 H Neut % (Auto) 93.4 H Lymph % (Auto) 3.9 L Lymph # (Auto) 0.6 L Abs Immat Gran (auto) 0.08 H Absolute Neuts (auto) 13.2 H Neutrophils % (Manual) Band Neutrophils % Lymphocytes % (Manual) Abs Neuts (Manual) VBG pH VBG HCO3 Sodium 133 L Carbon Dioxide 14 L BUN 33 H Creatinine 1.59 H POC Glucose 421 H* Random Glucose 429 H* C-Reactive Protein B-Natriuretic Peptide Total Protein Urine Protein 100 (2+) H Urine Glucose (UA) >=1000 H Urine Methadone Screen Positive H Urine Fentanyl Screen POSITIVE H 01/01/24 01/01/24 01/01/24 07:53 10:58 21:23 WBC RBC Hgb Hct RDW Immature Gran % (Auto) Neut % (Auto) Lymph % (Auto) Lymph # (Auto) Abs Immat Gran (auto) Absolute Neuts (auto) Neutrophils % (Manual) Band Neutrophils % Lymphocytes % (Manual) Abs Neuts (Manual) VBG pH VBG HCO3 Sodium Carbon Dioxide BUN Creatinine POC Glucose 371 H* 286 H 336 H Random Glucose C-Reactive Protein B-Natriuretic Peptide Total Protein Urine Protein Urine Glucose (UA) Urine Methadone Screen Urine Fentanyl Screen 01/02/24 01/02/24 01/02/24 07:04 11:55 12:03 WBC 14.7 H RBC 3.15 L Hgb 8.9 L Hct 26.9 L RDW 16.4 H Immature Gran % (Auto) Neut % (Auto) Lymph % (Auto) Lymph # (Auto) Abs Immat Gran (auto) Absolute Neuts (auto) Neutrophils % (Manual) Band Neutrophils % Lymphocytes % (Manual) Abs Neuts (Manual) VBG pH VBG HCO3 Sodium Carbon Dioxide 21 L BUN 22 H Creatinine POC Glucose 323 H 387 H* Random Glucose 415 H* C-Reactive Protein B-Natriuretic Peptide Total Protein Urine Protein Urine Glucose (UA) Urine Methadone Screen Urine Fentanyl Screen 01/02/24 01/02/24 01/03/24 15:59 20:36 07:46 WBC RBC Hgb Hct RDW Immature Gran % (Auto) Neut % (Auto) Lymph % (Auto) Lymph # (Auto) Abs Immat Gran (auto) Absolute Neuts (auto) Neutrophils % (Manual) Band Neutrophils % Lymphocytes % (Manual) Abs Neuts (Manual) VBG pH VBG HCO3 Sodium Carbon Dioxide BUN Creatinine POC Glucose 266 H 264 H 309 H Random Glucose C-Reactive Protein B-Natriuretic Peptide Total Protein Urine Protein Urine Glucose (UA) Urine Methadone Screen Urine Fentanyl Screen 01/03/24 11:10 WBC RBC Hgb Hct RDW Immature Gran % (Auto) Neut % (Auto) Lymph % (Auto) Lymph # (Auto) Abs Immat Gran (auto) Absolute Neuts (auto) Neutrophils % (Manual) Band Neutrophils % Lymphocytes % (Manual) Abs Neuts (Manual) VBG pH VBG HCO3 Sodium Carbon Dioxide BUN Creatinine POC Glucose 384 H* Random Glucose C-Reactive Protein B-Natriuretic Peptide Total Protein Urine Protein Urine Glucose (UA) Urine Methadone Screen Urine Fentanyl Screen Microbiology: Microbiology 12/31/23 17:04 Blood - Venous Blood Culture - Preliminary No growth after 48 hours. 12/31/23 17:04 Blood - Venous Blood Culture - Preliminary No growth after 48 hours. Assessment and Plan (1) Acute hypoxic respiratory failure: Status: Acute (2) Pneumonitis: Status: Acute Plan My suspicions patient has some component of drug-induced pneumonitis due to the fact that she is positive for fentanyl her tox screen. Usually due to the in organic material added to the the drugs both in the intravenous or in the inhaled formulation. The patient also found vomiting some for aspiration pneumonitis is also in differential infectious etiologies also less likely. Patient currently on room air Would switch to p.o. prednisone with slow taper Change to p.o. antibiotics, Augmentin, to complete a 8- 10 day course Tobacco cessation Continue respiratory therapy Will benefit from outpatient pulmonary follow-up Procedures Date of Service Date of Service: 01/03/24
--- NOTE | 2024-01-03 14:32 | P.PNIM_ITS ---
Subjective Subjective Date of Service: 01/03/24 Interval History: Being followed for hypoxic respiratory failure likely secondary to infectious/inflammatory pneumonitis, atypical pneumonia/? Interstitial lung disease and acute COPD. Patient feels better this morning with less shortness of breath and cough, no fevers, no chills, does not feel to be at her baseline Tolerating diet no nausea, no vomiting, no abdominal pain Elevated blood sugars Review of Systems All other system reviewed and are negative Physical Exam 2 Vital Signs: Vital Signs: Last Vital Signs Temp 97.6 F 01/03/24 12:00 Pulse 66 01/03/24 12:25 Resp 18 01/03/24 12:25 BP 164/75 H 01/03/24 12:00 Pulse Ox 96 01/03/24 12:00 O2 Del Method Room Air 01/03/24 12:00 O2 Flow Rate 5 01/01/24 08:00 Oxygen Flow Rate 2 12/31/23 15:24 BMI result Body Mass Index 25.6 Const: Other: Gen: Awake alert x3, in no acute distress. HEENT: sclera anicteric, moist mucus membranes. Neck: supple. Lungs: Scattered expiratory wheeze, no use of accessory muscle Heart: regular rate and rhythm, no murmurs Abd: soft, non-tender, non-distended, bowel sounds audible Ext: s/p R BKA Skin: warm/well-perfused Neuro: alert and oriented x3, no focal findings Psych: appropriate affect Objective Data Active Medications Acetaminophen (Acetaminophen 325 Mg Tablet) 650 mg PO Q6H PRN PRN Reason: Pain, Mild (Pain Scale 1-3) Albuterol Sulfate (Albuterol Sulfate (0.083%) 2.5 Mg/3 Ml Vial.Neb) 2.5 mg INHALE Q2H PRN PRN Reason: Shortness of Breath/Wheezing Albuterol/Ipratropium (Albuterol/Iprat 2.5/0.5mg 3 Ml Ampul.Neb) 3 ml INHALE RQ4H WHILE AWAKE [facility] Last Admin: 01/03/24 12:24 Dose: 3 ml Documented By: CHARITY Amlodipine Besylate (Amlodipine Besylate 10 Mg Tablet) 10 mg PO DAILY [facility]; Protocol Last Admin: 01/03/24 08:08 Dose: 10 mg Documented By: ANDRES Aspirin (Aspirin Enteric Coated 81 Mg Tablet.) 81 mg PO DAILY [facility] Last Admin: 01/03/24 08:08 Dose: 81 mg Documented By: ANDRES Atorvastatin Calcium (Atorvastatin Calcium 40 Mg Tablet) 40 mg PO DAILY [facility] Last Admin: 01/03/24 08:08 Dose: 40 mg Documented By: ANDRES Bisacodyl (Bisacodyl 5 Mg Tablet.) 5 mg PO BEDTIME [facility] Last Admin: 01/02/24 19:59 Dose: 5 mg Documented By: ISSAC Bupropion HCl (Bupropion Hcl Xl 300 Mg Tab.Er.24h) 300 mg PO DAILY [facility] Last Admin: 01/03/24 08:08 Dose: 300 mg Documented By: ANDRES Calcium Carbonate (Calcium Carbonate 750 Mg Tab.Chew) 750 mg PO Q4H PRN PRN Reason: Heartburn Last Admin: 01/01/24 21:56 Dose: 750 mg Documented By: SARITA Enoxaparin Sodium (Enoxaparin Sodium 30 Mg/0.3 Ml Syringe) 30 mg SUBCUT Q24H [facility] Last Admin: 01/03/24 08:09 Dose: 30 mg Documented By: ANDRES Glucose (Glucose Gel 15 Gm Gel..Gram.) 15 gm PO Q15M PRN; Protocol PRN Reason: per Hypoglycemia Standing Ord. Guaifenesin/Dextromethorphan (Guaifenesin Dm 100/10/5 Ml 5 Ml Syrup) 5 ml PO Q6H PRN PRN Reason: cough Azithromycin 500 mg/ Sodium (Chloride) 250 mls @ 125 mls/hr IV Q24H [facility] Last Infusion: 01/02/24 23:56 Dose: Infused Documented By: ISSAC Dextrose (D10) 250 mls @ 750 mls/hr IV Q15M PRN; Protocol PRN Reason: per Hypoglycemia Standing Ord. Ceftriaxone Sodium 1 gm/ (Sodium Chloride) 50 mls @ 100 mls/hr IV Q24H [facility] Last Infusion: 01/03/24 09:37 Dose: Infused Documented By: ANDRES Insulin Glargine (Insulin Glargine,Hum.Rec.Anlog 100 Unit/Ml 10 Ml Vial) 10 unit SUBCUT BEDTIME [facility] Last Admin: 01/02/24 21:28 Dose: 10 unit Documented By: ISSAC Insulin Glargine (Insulin Glargine,Hum.Rec.Anlog 100 Unit/Ml 10 Ml Vial) 10 unit SUBCUT DAILY [facility] Last Admin: 01/03/24 08:10 Dose: 10 unit Documented By: ANDRES Insulin Human Lispro (Insulin Lispro 100 Unit/Ml 3 Ml Vial) 0 unit SUBCUT QIDACHS [facility]; Protocol Last Admin: 01/03/24 12:17 Dose: 14 unit Documented By: ANDRES Magnesium Hydroxide (Milk Of Magnesia 30 Ml Oral.Susp) 30 ml PO DAILY PRN PRN Reason: Constipation Last Admin: 01/01/24 21:56 Dose: 30 ml Documented By: SARIAT Melatonin (Melatonin 3 Mg Tablet) 6 mg PO BEDTIME PRN PRN Reason: Insomnia Methadone HCl (Methadone Hcl 20 Mg/2 Ml Oral.Conc) 130 mg PO DAILY [facility] Last Admin: 01/03/24 08:08 Dose: 130 mg Documented By: ANDRES Metoprolol Succinate (Metoprolol Succinate Er 25 Mg Tab.Er.24h) 25 mg PO DAILY [facility]; Protocol Last Admin: 01/03/24 08:08 Dose: 25 mg Documented By: ANDRES Mirtazapine (Mirtazapine 7.5 Mg Tablet) 7.5 mg PO BEDTIME [facility] Last Admin: 01/02/24 19:59 Dose: 7.5 mg Documented By: ISSAC Morphine Sulfate (Morphine Sulfate 2 Mg/Ml Cartridge) 2 mg IVPUSH Q3H PRN; Protocol PRN Reason: Pain, Severe (Pain Scale 7-10) Nicotine (Nicotine 14 Mg Patch.Td24) 14 mg TRANSDERMA DAILY [facility] Last Admin: 01/03/24 08:10 Dose: 14 mg Documented By: ANDRSE Omeprazole (Omeprazole 40 Mg Capsule.Dr) 40 mg PO DAILY@30 [facility] Last Admin: 01/03/24 05:11 Dose: 40 mg Documented By: ISSAC Ondansetron HCl (Ondansetron Hcl 4 Mg/2 Ml Vial) 4 mg IVPUSH Q8H PRN PRN Reason: Nausea and Vomiting Sodium Chloride (0.9 % Sodium Chloride Flush 3 Ml Syringe) 3 ml IVFLUSH QSHIFT [facility] Last Admin: 01/03/24 14:07 Dose: 3 ml Documented By: ANDRES Labs 01/02/24 12:03 01/02/24 12:03 Labs: Laboratory Results - last 24 hr 01/02/24 01/02/24 01/03/24 15:59 20:36 07:46 POC Glucose 266 H 264 H 309 H 01/03/24 11:10 POC Glucose 384 H* Microbiology Microbiology Results: Microbiology 12/31/23 17:04 Blood Culture - Preliminary Blood - Venous No growth after 48 hours. 12/31/23 17:04 Blood Culture - Preliminary Blood - Venous No growth after 48 hours. Assessment and Plan (1) Acute kidney injury: Status: Acute (2) Constipation: Status: Acute (3) Leukocytosis: Status: Acute (4) Acute hypoxic respiratory failure: Status: Acute (5) Tobacco dependence: Status: Acute Plan Lazara Driscoll is a 63 y/o woman admitted with nonbloody emesis of 2 days, abdominal pain, constipation, mild shortness of breath and cough and diagnosed with following medical issues.: Acute Hypoxic respiratory failure likely secondary to infectious/inflammatory pneumonitis, atypical pneumonia, question interstitial lung disease and acute COPD exacerbation. Shortness of breath improving , hypoxia resolved V/Q scan nondiagnostic, chronically increased D-dimer, WBC trending down, blood cultures neg Continue IV azithromycin and IV ceftriaxone day 3, cough medication, change IV steroids to prednisone from 01/03 Pulmonary consult pending. If remains stable will discharge home on tapering dose of steroids. Acute kidney injury, likely secondary to poor p.o. intake and vomiting, creatinine normalized, will resume lisinopril Epigastric pain associated with nausea and vomiting, unclear etiology, likely due to constipation, Abdomen pelvis CT scan showed severe constipation. Continue PPI, lactulose, constipation resolved was likely due to methadone use Type 2 diabetes mellitus, uncontrolled. Likely due to steroids will place on Lantus 10 units b.i.d. , insulin sliding scale, follow point of care q.i.d.ac, at home on Tresiba 20 units at bedtime, metformin 1000 b.i.d. and insulin aspartate sliding scale History of drug abuse. Continue methadone 135 mg p.o. daily. Dyslipidemia. Continue statin. Tobacco smoking. Counseling done , on nicotine patch 14 mg daily. History of pulmonary embolism. Pulmonary perfusion scan non diagnostic, no left lower extremity swelling, hypoxia resolved, therapeutic anticoagulation discontinued . Hypertension elevated blood pressures, continue Norvasc, metoprolol , and resume lisinopril 20 mg daily was on lisinopril 50 mg at home . DVT prophylaxis: Lovenox subQ Code status: Full Patient needs continued inpatient hospitalization for IV antibiotic therapy, IV steroids, bronchodilator therapy and need for expert consultation. Quality Stroke Does the patient have a stroke diagnosis?: No VTE Prior VTE?: No VTE Risk Level:: Medical - moderate - high VTE Device Contraindication: Treatment Not Indicated VTE Drug Contraindication: N/A - Med Ordered
[2024-01-03] MEDS: Acetaminophen 325 MG TABLET 650 MG PO (14:53)
[2024-01-03] MEDS: lisinopriL 20 MG TABLET PO (14:53)
[2024-01-03 16:25] LABS: Glucose, Whole Blood 158 mg/dL (60-115)
[2024-01-03 20:44] LABS: Glucose, Whole Blood 348 mg/dL (60-115)
[2024-01-03] MEDS: bisacodyL 5 MG TABLET.DR PO (21:20)
[2024-01-03] MEDS: Mirtazapine 7.5 MG TABLET PO (21:20)
[2024-01-03] MEDS: Azithromycin 500 MG in 0.9 % Sodium Chloride 250 ML 125 MG IV (21:26)
[2024-01-04 03:55] VITALS: BP 161/72; PULSE 56; RESP 18; TEMP 36.3; O2SAT 95
[2024-01-04] MEDS: Omeprazole 40 MG CAPSULE.DR PO (05:15)
[2024-01-04 07:13] LABS: Glucose, Whole Blood 366 mg/dL (60-115)
[2024-01-04 07:50] VITALS: PULSE 56; RESP 18
[2024-01-04] MEDS: Albuterol/Iprat 2.5/0.5MG 3 ML AMPUL.NEB INHALE ×2 (07:50→11:33)
[2024-01-04 08:00] VITALS: BP 171/77; PULSE 61; RESP 17; TEMP 36.5; O2SAT 96
[2024-01-04 08:09] LABS: Glucose, Whole Blood 150 mg/dL (60-115)
[2024-01-04] MEDS: methADONE HCl 20 MG/2 ML ORAL.CONC 130 MG PO (09:10)
[2024-01-04] MEDS: amLODIPine Besylate 10 MG TABLET PO (09:11)
[2024-01-04] MEDS: buPROPion HCl XL 300 MG TAB.ER.24H PO (09:11)
[2024-01-04] MEDS: Aspirin Enteric Coated 81 MG TABLET.DR PO (09:11)
[2024-01-04] MEDS: predniSONE 10 MG TABLET 30 MG PO (09:11)
[2024-01-04] MEDS: Atorvastatin Calcium 40 MG TABLET PO (09:12)
[2024-01-04] MEDS: Nicotine 14 MG PATCH.TD24 TRANSDERMA (09:12)
[2024-01-04] MEDS: cefTRIAXone sodium 1 GM in 0.9 % Sodium Chloride 50 ML IV (09:13)
[2024-01-04] MEDS: Metoprolol Succinate ER 25 MG TAB.ER.24H PO (09:13)
[2024-01-04] MEDS: Insulin Glargine,Hum.rec.anlog 100 UNIT/ML 10 ML VIAL 10 UNIT SUBCUT ×2 (09:13→09:15)
[2024-01-04] MEDS: lisinopriL 20 MG TABLET PO (09:13)
[2024-01-04] MEDS: 0.9 % Sodium Chloride Flush 3 ML SYRINGE IVFLUSH (09:14)
[2024-01-04] MEDS: Enoxaparin Sodium 30 MG/0.3 ML SYRINGE SUBCUT (10:54)
[2024-01-04 11:27] VITALS: BP 146/70; PULSE 76; RESP 18; TEMP 36.3; O2SAT 94
[2024-01-04 11:34] VITALS: PULSE 76; RESP 18
--- NOTE | 2024-01-04 11:55 | P.F2F_ITS ---
Service Date Service Date: 01/04/24 Encounter Date of encounter: 01/04/24 Reasons for Services Signs and symptoms assessed: weakness/balance, please attach PT evaluation from 01/04/24 Reason for physical therapy: home safety and mobility, gait/transfer training, assess need for DME, ADL training and energy conservation MD Overseeing Care: Kevon Herring Homebound: Leaving the home is medically contraindicated at this time without the asist of a device and/or another person due th the listed conditions above and below. Reason homebound: unsteady gait / fall risk and shortness of breath with minimal effort Certification: Based on the above findings, I certify that this patient is confined to the home and needs intermittent nursing home care, physical therapy and/or speech therapy, or continues to need occupational therapy. The patient is under my care, and I have initiated the establishment of the plan of care. The patient will be followed by a physician who will periodically review the plan of care. Time Spent With Patient Time: Total time managing care of this patient today ____ minutes.
--- NOTE | 2024-01-04 12:05 | P.DS_ITS ---
DS: Providers Provider Date of Service: 01/04/24 Date of admission: 12/31/23 20:05 Date of discharge: 01/04/24 Primary care physician: Kevon Herring MD Consults: 01/01/24 13:22 Consult to Pulmonology Routine Consulting Provider: Rubio Perez Reason for consultation: abnormal ct chest/hypoxia Has provider been notified: No 01/04/24 11:57 Addiction Medicine Routine Consulting Provider: Addiction Covering Reason for consultation: fentanyl on tox screen, ready for d/c today, on methadone 135 mg/d DS: Diagnosis Discharge Diagnosis (1) Acute kidney injury: Status: Acute (2) Constipation: Status: Acute (3) Acute hypoxic respiratory failure: Status: Acute (4) Tobacco dependence: Status: Acute (5) Pneumonitis: Status: Acute (6) COPD exacerbation: Status: Acute (7) Opioid use disorder: Status: Acute DS: Summary Hospital Course Hospital Course: From the history and physical by the admitting hospitalist, Tabatha Ortez MD, 12/31/23: Lazara Driscoll is a 63 years old woman with past medical history significant for constipation, dyslipidemia, PE on Xarelto, COPD on home oxygen, type 2 diabetes mellitus on insulin, drug use on methadone and ongoing tobacco smoking was brought to the emergency department via EMS due to epigastric pain that started 2 days ago associated with yellowish nonbloody emesis x2. The pain is constant with an intensity of 8/10 without radiation. Denied diarrhea or constipation. She also complained of productive cough and mild shortness on breath. Her O2 sat was found to be low by EMS and was placed on supplemental oxygen. Denies chest pain, palpitations or dizziness. She did not report any fever, chills or pain with urination. Patient denied alcohol abuse or illicit drug use. Patient was evaluated in the emergency department yesterday for productive cough, vomiting and not feeling well. She underwent abdominal pelvis CT scan that is remarkable for moderate severe fecal retention. She also underwent a chest CTA [sic; actually was CT, not a CTA] that showed diffuse antral areas of increased ground-glass attenuations and also scattered areas of bronchial wall thickening, possibly due to atypical viral pneumonia, interstitial lung disease or nonspecific interstitial pneumonitis. In the ED, she was found to have stable vital signs but still requiring supplemental oxygen. Blood workup is remarkable for mild leukocytosis of 25.9, hemoglobin of 10.9 normal platelets. There is no lactic acidosis. CRP is elevated, 18.75. Her blood glucose is 254. BNP is 282. Creatinine is 1.85 (baseline is 0.85), urinalysis showed no evidence of UTI. Venous blood gas showed no respiratory acidosis. CXR showed new left lower lobe airspace disease. ED tx: NS 1 L bolus, Solu-Medrol 125 mg IV, albuterol neb, ketorolac 30 mg IV, and 3.375 g IV, vancomycin 1.5 mg IV magnesium 2 g IV. 63yo M admitted with hypoxia due to infectious/inflammatory pneumonitis and acute COPD exacerbation. She was treated with IV ceftrixone and azithromycin as well as IV steroids. She gradually improved and was weaned off supplemental oxygen. Pulmonology was consulted and recommended prednisone taper as well as amoxicillin-clavulanate due to likely drug-induced and/or aspiration pneumonitis [she tested positive for fentanyl on her admission urine drug screen]. She met with the Addiction Medicine team, which recommended continuing her methadone dosing. She denied using fentanyl. Acute kidney injury was likely prerenal azotemia due to vomiting and resolved with holding lisinopril and giving IV fluids. Lisinopril was resumed and she should recheck BMP in 1 week. he was discharged home with [facility] services for home PT and should follow up with Primary Care and Pulmonology in 1-2 weeks. Time Attestation Discharge Coordination Time (in mins): 40 Quality: Safe Use of Opioids Does Pt have an Active Cancer Diagnosis on the Problem List?: No Quality: Stroke Does the patient have a stroke diagnosis?: No Physical Exam Vital Signs: Vital Signs: Last Vital Signs Temp 97.4 F 01/04/24 11:27 Pulse 76 01/04/24 11:34 Resp 18 01/04/24 11:34 BP 146/70 H 01/04/24 11:27 Pulse Ox 94 01/04/24 11:27 O2 Del Method Room Air 01/04/24 11:27 O2 Flow Rate 5 01/01/24 08:00 Oxygen Flow Rate 2 12/31/23 15:24 BMI result Body Mass Index 25.6 Gen: in no acute distress HEENT: sclera anicteric, moist mucus membranes Neck: supple Lungs: a few inspiratory crackles at base with inspiration but otherwise clear Heart: regular rate and rhythm, no murmurs Abd: soft, non-tender, non-distended Ext: no edema Skin: warm/well-perfused Neuro: alert and oriented x3, no focal findings Psych: appropriate affect DS: Data Data Completed and Pending Completed studies during hospitalization [Text1]: Laboratory Results WBC 14.7 X10*3/uL (4.8-10.8) H 01/02/24 12:03 RBC 3.15 X10*6/uL (4.20-5.50) L 01/02/24 12:03 Hgb 8.9 g/dl (12.0-16.0) L 01/02/24 12:03 Hct 26.9 % (37.0-47.0) L 01/02/24 12:03 MCV 85.4 fL (80.0-98.0) 01/02/24 12:03 MCH 28.3 pg (27.0-33.0) 01/02/24 12:03 MCHC 33.1 g/dl (31.0-35.0) 01/02/24 12:03 RDW 16.4 % (11.0-16.0) H 01/02/24 12:03 Plt Count 299 X10*3/uL (160-400) 01/02/24 12:03 MPV 11.1 fL (9.4-12.3) 01/02/24 12:03 Immature Gran % (Auto) 0.6 % (0.0-0.4) H 01/01/24 06:05 Neut % (Auto) 93.4 % (45-73) H 01/01/24 06:05 Lymph % (Auto) 3.9 % (20-40) L 01/01/24 06:05 [place] % (Auto) 2.0 % (2-11) 01/01/24 06:05 Eos % (Auto) 0.0 % (0-4) 01/01/24 06:05 Baso % (Auto) 0.1 % (0-2) 01/01/24 06:05 Lymph # (Auto) 0.6 X10*3/uL (1.2-4.9) L 01/01/24 06:05 [place] # (Auto) 0.3 X10*3/uL (0.1-1.2) 01/01/24 06:05 Eos # (Auto) 0.0 X10*3/uL (0.0-0.4) 01/01/24 06:05 Baso # (Auto) 0.0 X10*3/uL (0.0-0.2) 01/01/24 06:05 Abs Immat Gran (auto) 0.08 X10*3/uL (0.00-0.03) H 01/01/24 06:05 Absolute Neuts (auto) 13.2 x10*3/uL (2.0-8.3) H 01/01/24 06:05 Absolute Nucleated RBC 0.000 X10*3/uL (0.0-0.012) 01/02/24 12:03 Nucleated RBC % (auto) 0.0 /100WBC (0.0-0.2) 01/02/24 12:03 Neutrophils % (Manual) 80 % (45-73) H 12/31/23 15:47 Band Neutrophils % 8 % (3-5) H 12/31/23 15:47 Lymphocytes % (Manual) 9 % (20-40) L 12/31/23 15:47 Monocytes % (Manual) 3 % (2-11) 12/31/23 15:47 Abs Neuts (Manual) 20.9 X10*3/uL (2.0-8.3) H 12/31/23 15:47 Lymphocytes # (Manual) 2.1 X10*3/uL (1.2-4.9) 12/31/23 15:47 Monocytes # (Manual) 0.7 X10*3/uL (0.1-1.2) 12/31/23 15:47 Platelet Estimate NORMAL (NORMAL) 12/31/23 15:47 Plt Morphology Comment NORMAL 12/31/23 15:47 RBC Morphology NORMAL 12/31/23 15:47 Smear Tech's Comments VERIFIED 01/01/24 06:05 D-Dimer High Sensitivty 1955 NG/ML 12/31/23 15:48 Hold Blue Top SEE NOTE 12/31/23 15:48 VBG pH 7.26 (7.32-7.43) L 12/31/23 21:51 VBG pCO2 35 mmHg 12/31/23 21:51 VBG pO2 52 mmHg 12/31/23 21:51 VBG HCO3 16 mmol/L (22-26) L 12/31/23 21:51 VBG O2 Saturation 72.0 % 12/31/23 21:51 VBG Base Excess -9.6 mmol/L 12/31/23 21:51 Sodium 140 mmol/L (135-145) 01/02/24 12:03 Potassium 4.5 mmol/L (3.3-5.1) 01/02/24 12:03 Chloride 104 mmol/L (96-108) 01/02/24 12:03 Carbon Dioxide 21 mmol/L (22-29) L 01/02/24 12:03 Anion Gap 20 (12-20) 01/02/24 12:03 BUN 22 mg/dL (9-16) H 01/02/24 12:03 Creatinine 1.10 mg/dL (0.5-1.4) 01/02/24 12:03 Estim Creat Clear Calc 40.4 01/02/24 12:03 Estimated GFR 50 01/02/24 12:03 POC Glucose 150 mg/dL (60-115) H 01/04/24 08:05 Random Glucose 415 mg/dL (60-115) H* 01/02/24 12:03 Lactic Acid 1.6 mmol/L (0.5-2.0) 12/31/23 17:04 Calcium 8.7 mg/dL (8.4-10.2) 01/02/24 12:03 Magnesium 1.6 mg/dL (1.6-2.6) 12/31/23 15:47 Total Bilirubin 0.4 mg/dL (0.0-1.0) 12/31/23 15:47 AST 8 U/L (5-31) 12/31/23 15:47 ALT 5 U/L (0-31) 12/31/23 15:47 Alkaline Phosphatase 105 U/L (39-117) 12/31/23 15:47 Troponin I High Sens 10.2 ng/L (<3.5-17.0) D 12/31/23 15:47 C-Reactive Protein 18.75 mg/dL (< or = 0.50) H 12/31/23 17:04 B-Natriuretic Peptide 282 pg/mL (<100) H 12/31/23 15:47 Total Protein 8.8 g/dL (6.5-8.0) H 12/31/23 15:47 Albumin 3.9 g/dL (3.5-5.0) 12/31/23 15:47 Urine Color Yellow 12/31/23 22:19 Urine Appearance Cloudy 12/31/23 22:19 Urine pH 5.0 (5.0-9.0) 12/31/23 22:19 Ur Specific [place] 1.020 (1.005-1.025) 12/31/23 22:19 Urine Protein 100 (2+) mg/dL (Neg-Trace) H 12/31/23 22:19 Urine Glucose (UA) >=1000 mg/dL (Negative) H 12/31/23 22:19 Urine Ketones 15 mg/dL (Negative) 12/31/23 22:19 Urine Blood Negative (Negative) 12/31/23 22:19 Urine Nitrite Negative (Negative) 12/31/23 22:19 Ur Leukocyte Esterase Negative (Negative) 12/31/23 22:19 Urine RBC 0-2 /HPF (0-2) 12/31/23 22:19 Urine WBC 0-5 /HPF (0-5) 12/31/23 22:19 Ur Squamous Epith Cells 0-2 /HPF (0-2) 12/31/23 22:19 Urine Bacteria None Seen (None Seen) 12/31/23 22:19 Hyaline Casts 0-2 /LPF (0-2) 12/31/23 22:19 Urine Opiates Screen Not Detected (Not Detect) 12/31/23 22:19 Ur Buprenorphine Scrn Not Detected ng/mL (Not Detect) 12/31/23 22:19 Ur Oxycodone Screen Not Detected ng/mL (Not Detect) 12/31/23 22:19 Urine Methadone Screen Positive ng/mL (Not Detect) H 12/31/23 22:19 Urine Fentanyl Screen POSITIVE (Not Detect) H 12/31/23 22:19 Ur Barbiturates Screen Not Detected (Not Detect) 12/31/23 22:19 Ur Phencyclidine Scrn Not Detected (Not Detect) 12/31/23 22:19 Ur Amphetamines Screen Not Detected (Not Detect) 12/31/23 22:19 U Benzodiazepines Scrn Not Detected (Not Detect) 12/31/23 22:19 Urine Cocaine Screen Not Detected (Not Detect) 12/31/23 22:19 U Marijuana (THC) Screen Not Detected (Not Detect) 12/31/23 22:19 Ethyl Alcohol < 10 mg/dL 12/31/23 17:04 Influenza Type A (PCR) NEGATIVE (Negative) 12/31/23 15:46 Influenza Type B (PCR) NEGATIVE (Negative) 12/31/23 15:46 RSV RNA Qual (PCR) NEGATIVE (Negative) 12/31/23 15:46 SARS-CoV-2 RNA (RT-PCR) NEGATIVE (Negative) 12/31/23 15:46 Impressions Chest X-Ray 12/31/23 18:20 IMPRESSION: Again seen is streaky right upper lobe airspace disease. There is new left lower lobe airspace disease. Multifocal infection is suspected. Abdomen/Pelvis CT 12/31/23 18:52 IMPRESSION: 1. Redemonstration of extensive reticular and interstitial lung markings with bronchial thickening and groundglass opacities throughout the visualized bilateral lung mckeon, increased from prior imaging. 2. Liver is borderline enlarged measuring 17.3 cm. 3. Left-sided hepatic pneumobilia, unclear etiology possibly postoperative. 4. Status post cholecystectomy. 5. Urinary bladder is well-distended measuring up to 10.7 cm in the craniocaudad dimension. 6. Small hiatal hernia. 7. A few mildly prominent bilateral inguinal mesenteric and periaortic lymph nodes are noted the largest in the right inguinal region measuring 1.1 cm in short axis, not enlarged per size criteria. 8. Osteomeatal atherosclerotic calcifications but likely an element of narrowing involving the celiac and superior mesenteric artery. 9. Osteopenia. Grade 1 anterolisthesis of L4 and L5. Pulmonary Perfusion Imaging 01/01/24 10:00 IMPRESSION: Based on perfusion only modified PIOPED 2 criteria, the findings are considered nondiagnostic for pulmonary thromboembolism. Alternative imaging modality including CTA scan of the chest with intravenous contrast per PE protocol is recommended for further clarification. Discharge Plan Discharge Anticipated Discharge Date/Time: 01/04/24 11:54 Patient Disposition: Home Health Service Discharge Diagnosis: pneumonitis, COPD exacerbation, acute kidney injury Referrals: [facility] [Outside] - 1 Week Kevon Herring MD [Primary Care Provider] - 1 Week Discharge Medications: New nicotine 14 mg/24 hr Patch 24 Hour 14 mg transdermal DAILY Qty: 30 0RF amoxicillin-pot clavulanate 875-125 mg tablet 1 tab PO BID Qty: 12 0RF prednisone 10 mg tablet See Rx Instructions .ROUTE .COMPLEX Qty: 12 0RF Rx Instructions: 30 mg daily x 2 days, then 20 mg daily x 2 days, then 10 mg daily x 2 days Continued (DME) walker Misc See Rx Instructions .ROUTE .MEDSUPPLY Qty: 1 0RF Rx Instructions: As directed ondansetron 4 mg tablet,disintegrating 4 mg PO TID PRN (Reason: nausea and vomiting) 5 Days Qty: 10 0RF insulin degludec [Tresiba FlexTouch U-100] 100 unit/mL (3 mL) insulin pen 20 unit subcut BEDTIME lisinopril 40 mg tablet 40 mg PO DAILY Qty: 90 0RF amlodipine 10 mg tablet 10 mg PO DAILY Qty: 90 0RF metoprolol succinate 25 mg tablet extended release 24 hr 25 mg PO DAILY mirtazapine 7.5 mg tablet 7.5 mg PO BEDTIME Fiasp U-100 Insulin 100 unit/mL solution 0 sliding scale dose subcut USEASDIRECTD zolpidem 10 mg tablet 10 mg PO BEDTIME PRN (Reason: Sleep) Arnuity Ellipta 100 mcg/actuation blister with device 1 inh inhalation DAILY sulfamethoxazole-trimethoprim [Bactrim DS] 800-160 mg tablet 1 tab PO MOWEFR methadone 10 mg/mL Concentrate 130 mg PO DAILY gabapentin 600 mg tablet 600 mg PO TID (DME) lancets 33 gauge misc See Rx Instructions Not Applicable TID Qty: 100 Rx Instructions: As directed albuterol sulfate 90 mcg/actuation HFA aerosol inhaler 2 puff PO Q4H PRN (Reason: Respiratory Distress) omeprazole 20 mg capsule,delayed release(DR/EC) 20 mg PO DAILY@0630 metformin 1,000 mg tablet 1,000 mg PO BIDWM aspirin 81 mg tablet,delayed release (DR/EC) 81 mg PO DAILY bupropion HCl 150 mg tablet sustained-release 12 hr 150 mg PO BID atorvastatin 40 mg tablet 40 mg PO DAILY acetaminophen 325 mg capsule 325 mg PO QID PRN (Reason: Pain) Discontinued lisinopril 10 mg tablet 10 mg PO DAILY Discharge Orders: Discharge Order (Routine); Ordered 01/04/24 Ordered By: Coyd Smith Diet: Advance to usual diet Activity on Discharge: As tolerated Stand Alone Forms: Patient Portal Discharge page Print Language: Libyan Other Ambulatory Orders: Basic Metabolic Panel (Routine) Timeframe: 1 Week Facility: [facility] - Location: Laboratory Ordered By: Cody Smith Care Plan Goals: pulmonary health Health Concerns: pneumonitis, COPD exacerbation, acute kidney injury Plan of Treatment: prednisone 10 mg tabs, taper as follows: 30 mg (3 tabs) daily x 2 days, then 20 mg (2 tabs) daily x 2 days, then 10 mg (1 tab) daily x 2 days amoxicillin-clavulanate 875-125 mg twice daily for 6 days quit smoking; use nicotine patch to help [place] [facility] [place] 2 weeks recheck labs in 1 week: BMP [no fasting needed] Please follow up with your primary care doctor within 1 week. Return to the hospital if you experience recurrent or worsening symptoms. avoid drugs of abuse; continue methadone Assessment: See Discharge Summary.
--- NOTE | 2024-01-04 14:34 | MHC.RECOVRN ---
Met with pt in 483 after consult placed to Addiction Medicine for positive UDS. Pt had presented to the ED c/o stomach pain, sat 84% on RA, 92% on 3L wheezy throughout lungs, POC 320. Upon evaluation, pt admitted for hypoxic respiratory failure and AUBRIE. Pt sitting in bed, awake, alert, easily engages in conversation, appears comfortable. Pt reports she is currently on methadone, 130 mg daily through [facility] in [place]. Pt reports she has been at this dose for quite some time, had initiated methadone 4 years ago. Pt reports last opioid use was 4-5 months ago. Pt is unsure why UDS was positive for fentanyl on admission. Pt reports she is comfortable with her current methadone dose, denies withdrawal, denies cravings. Pt reports she has been successful with recovery due to staying busy with the [employer] and all of my appointments. Discussed recovery resources and supports, pt is not interested in referrals at this time, states I don't want to get overwhelmed. Provided pt with written resources as well as t/w contact information. Plan for pt to look over resources once at home and will call t/w if she feels she needs more support with recovery. Pt denies questions or concerns for t/w. Discussed with Rachel Payne APRN.
--- NOTE | 2024-01-04 15:27 | MHC.CM.PN ---
Second IMM 01/04/24, pt has been medically cleared for DC, her son will transport her home, she will resume home care services from [facility], with the addition of OT.
== END 2024-01-04 19:20 | disposition home health service (06) | DRG 917 ==
LOC: HO.ED 16:14 → HO.EDOVER 20:17 → HO.IMC 01-01 04:30
PROVIDERS: Hospitalist; Physician Assistant Medical; Admitting Provider Internal Medicine; Emergency Provider Emergency Medicine; PCP Internal Medicine; Visit Provider Family Medicine
DX: T40.411A Poisoning by fentanyl or fentanyl analogs, accidental (unintentional), initial encounter (principal); J69.0 Pneumonitis due to inhalation of food and vomit; J96.01 Acute respiratory failure with hypoxia; F11.20 Opioid dependence, uncomplicated; N17.9 Acute kidney failure, unspecified; Z59.01 Sheltered homelessness; J44.0 Chronic obstructive pulmonary disease with (acute) lower respiratory infection; J20.9 Acute bronchitis, unspecified; J70.4 Drug-induced interstitial lung disorders, unspecified; E11.9 Type 2 diabetes mellitus without complications; E78.5 Hyperlipidemia, unspecified; F17.210 Nicotine dependence, cigarettes, uncomplicated; K59.00 Constipation, unspecified; Z71.6 Tobacco abuse counseling; Z20.822 Contact with and (suspected) exposure to COVID-19; Z86.711 Personal history of pulmonary embolism; Z89.511 Acquired absence of right leg below knee; Z99.81 Dependence on supplemental oxygen; Z79.4 Long term (current) use of insulin; Z79.51 Long term (current) use of inhaled steroids; Z79.84 Long term (current) use of oral hypoglycemic drugs; Z79.899 Other long term (current) drug therapy
CPT/HCPCS: 0241U; 36415; 71045; 71046; 71250; 74176; 74177; 78580; 80048; 80053; 80076; 80307; 81001; 82803; 82947; 83605; 83690; 83735; 83880; 84484; 85007; 85025; 85027; 85379; 85610; 86140; 87040; 87502; 87635; 93005; 94640; 97161; 99285; A9540; C9113; J0456; J0696; J1650; J1885; J2543; J2919; J3371; J3475; Q9967

== ENCOUNTER → 2023-12-31 15:30 | Outpatient (BNV) | payer MEDICARE, MEDICAID, SELFPAY | PROVIDERS: Admitting Provider Internal Medicine; Emergency Provider Emergency Medicine; PCP Internal Medicine; Visit Provider Internal Medicine Cardiovascular Disease | DX: R06.02 Shortness of breath (principal); R94.31 Abnormal electrocardiogram [ECG] [EKG] | CPT/HCPCS: 93010 ==

== ENCOUNTER → 2023-12-31 20:05 | Outpatient (BNV) | payer MEDICARE, MEDICAID, SELFPAY | PROVIDERS: Admitting Provider Internal Medicine; Emergency Provider Emergency Medicine; PCP Internal Medicine; Visit Provider Hospitalist | DX: J96.01 Acute respiratory failure with hypoxia (principal); J98.4 Other disorders of lung | CPT/HCPCS: 99223 ==

== ENCOUNTER → 2023-12-31 20:05 | Outpatient (BNV) | payer MEDICARE, MEDICAID, SELFPAY | PROVIDERS: Admitting Provider Internal Medicine; Emergency Provider Emergency Medicine; PCP Internal Medicine; Visit Provider Internal Medicine | DX: N17.9 Acute kidney failure, unspecified (principal); K59.00 Constipation, unspecified; D72.829 Elevated white blood cell count, unspecified; J96.01 Acute respiratory failure with hypoxia; F17.200 Nicotine dependence, unspecified, uncomplicated | CPT/HCPCS: 99223; 99232; 99239; G0180 ==

== ENCOUNTER 2024-01-11 16:04 | Inpatient (IN) | payer MEDICARE, MEDICAID, SELFPAY ==
[2024-01-11] VITALS (8 sets, daily range): BP systolic 71–135; BP diastolic 37–68; PULSE 57–89; RESP 16–22; TEMP 34.6–36.8; O2SAT 96–100; BMI 22.3
--- NOTE | ~2024-01-11 | CT_ITS ---
EXAMINATION: CT ABDOMEN AND PELVIS WITHOUT CONTRAST CLINICAL INFORMATION: Elevated white blood cell count. Elevated lactic acid. COMPARISON: None available. TECHNIQUE: Multidetector volumetric imaging was performed from the superior aspect of the liver through the pubic symphysis. Sagittal and coronal reformatted images were obtained on the technologist's workstation. This CT examination was performed using dose optimization techniques as appropriate, variously including the following: *Automated exposure control *Adjustment of mA and/or kV according to patient size (this includes techniques or standardized protocols for targeted exams where dose is matched to indication/reason for exam; i.e. extremities or head) *Use of iterative reconstruction technique DLP: 661 mGy-cm FINDINGS: LUNG BASES: There are bilateral lower lung field infiltrates. LIVER, GALLBLADDER, AND BILIARY TREE: The liver is normal in size, shape, and attenuation. No focal hepatic lesion or biliary ductal dilatation is present. There has been a prior cholecystectomy. PANCREAS: Unremarkable. SPLEEN: Unremarkable. ADRENAL GLANDS: Unremarkable. KIDNEYS AND URETERS: The kidneys are normal in size, shape, and attenuation. No hydronephrosis, hydroureter, or calculi seen. No perinephric stranding. BLADDER: The urinary bladder is decompressed with a Lau catheter in place. There is a small amount of air within the urinary bladder. GASTROINTESTINAL TRACT: The colon is mostly decompressed but does appear to be mildly thickened. The appendix is visualized and is within normal limits. ABDOMINAL WALL: No significant hernia is appreciated. LYMPH NODES: Normal. VASCULAR: There is atherosclerotic plaque of the abdominal aorta and proximal branches. PELVIC VISCERA: Unremarkable. OSSEOUS STRUCTURES: There is mild to moderate diffuse thoracolumbar disc and facet degenerative change CT/CT abdomen pelvis wo IV con IMPRESSION: 1. The colon is mostly decompressed but does appear to be mildly thickened. Colitis a consideration. 2. There are bilateral lower lung field infiltrates. Suspect pneumonia.. 3.The urinary bladder is decompressed with a Lau catheter in place. There is a small amount of air within the urinary bladder. Fleischner guidelines were followed.
--- NOTE | ~2024-01-11 | XR_ITS ---
EXAMINATION: XR CHEST CLINICAL INFORMATION: Evaluate for pneumonia COMPARISON: Chest x-ray on 12/31/2023 TECHNIQUE: Frontal view of the chest was obtained. FINDINGS: The cardiac silhouette is normal. There is mild diffuse bronchial wall thickening. There are multiple bilateral areas of increased hazy opacity. There are no pleural effusions or pneumothoraces. The bones and soft tissues are unremarkable for the patient's age. XR/XR chest 1V IMPRESSION: Bronchial wall thickening and multiple bilateral areas of increased hazy opacity suspicious for multifocal pneumonia.
--- NOTE | 2024-01-11 16:59 | ED.GENADULT ---
HPI - General Adult General Chief complaint: Nausea/Vomiting/Diarrhea Stated complaint: N/V/DRUG USE PER EMS Time Seen by Provider: 01/11/24 16:32 Source: patient Mode of arrival: ambulatory Limitations: no limitations History of Present Illness ED Provider: Bobby Oliveira PA-C HPI narrative: 64 yold female with pmh of Diabetes, Peripheral Artery disease, COPD, brought to the ED for nausea and vomitting after drug use. Patient's son denies patient using drugs. EMS suspects patient using drugs. Can not get much history from patient. Arben seems under the influence. Patience is sleepy with emesis on shirt. Patient seen here before for fentanyl use Related Data Home Medications ?Medication ?Instructions ?Recorded ?Confirmed albuterol sulfate 90 mcg/actuation 2 puff PO Q4H PRN Respiratory 04/24/20 01/01/24 aerosol inhaler Distress aspirin 81 mg tablet,delayed 81 mg PO DAILY 04/24/20 01/01/24 release atorvastatin 40 mg tablet 40 mg PO DAILY 04/24/20 01/01/24 bupropion HCl 150 mg tablet,12 hr 150 mg PO BID 04/24/20 01/01/24 sustained-release lancets 33 gauge #100 ea 04/24/20 10/13/23 metformin 1,000 mg tablet 1,000 mg PO BIDWM 04/24/20 01/01/24 omeprazole 20 mg capsule,delayed 20 mg PO DAILY@0630 04/24/20 01/01/24 release gabapentin 600 mg tablet 600 mg PO TID 05/03/20 01/01/24 insulin degludec 100 unit/mL (3 20 unit subcut BEDTIME 10/13/23 01/01/24 mL) subcutaneous pen (Tresiba FlexTouch U-100 insulin) acetaminophen 325 mg capsule 325 mg PO QID PRN Pain 11/02/23 01/01/24 insulin aspart (niacinamide) 0 sliding scale dose subcut 12/31/23 01/01/24 (U-100) 100 unit/mL subcutaneous USEASDIRECTD solution (Fiasp U-100 Insulin) metoprolol succinate 25 mg 25 mg PO DAILY 12/31/23 01/01/24 tablet,extended release 24 hr mirtazapine 7.5 mg tablet 7.5 mg PO BEDTIME 12/31/23 01/01/24 fluticasone furoate 100 1 inh inhalation DAILY 01/01/24 01/01/24 mcg/actuation blister powder for inhalation (Arnuity Ellipta) methadone 10 mg/mL oral concentrate 130 mg PO DAILY 01/01/24 01/01/24 sulfamethoxazole 800 1 tab PO MOWEFR 01/01/24 01/01/24 mg-trimethoprim 160 mg tablet (Bactrim DS) zolpidem 10 mg tablet 10 mg PO BEDTIME PRN Sleep 01/01/24 01/01/24 Previous Rx's ?Medication ?Instructions ?Recorded walker #1 ea 10/11/20 ondansetron 4 mg disintegrating 4 mg PO TID PRN nausea and 12/09/22 tablet vomiting 5 days #10 tabs amlodipine 10 mg tablet 10 mg PO DAILY #90 tabs 12/29/23 lisinopril 40 mg tablet 40 mg PO DAILY #90 tabs 12/29/23 amoxicillin 875 mg-potassium 1 tab PO BID #12 tabs 01/04/24 clavulanate 125 mg tablet nicotine 14 mg/24 hr daily 14 mg transdermal DAILY #30 ea 01/04/24 transdermal patch prednisone 10 mg tablet See Rx Instructions .Route 01/04/24 .COMPLEX #12 tabs Allergies Allergy/AdvReac Type Severity Reaction Status Date / Time No Known Allergies Allergy Verified 01/11/24 16:30 Review of Systems Review of Systems: drug use Yes all other systems are reviewed and are negative [facility] Past Medical History Medical History Diabetic osteomyelitis Below-knee amputation of right lower extremity Osteomyelitis of ankle Charcot foot due to diabetes mellitus Acute hyperglycemia Cellulitis Gastroenteritis Gastritis Constipation Diabetic foot ulcer New onset of congestive heart failure DKA (diabetic ketoacidoses) COVID-19 Dyslipidemia Glaucoma Pulmonary emboli Depression Chronic prescription opiate use Diabetes mellitus Pulmonary nodule Tobacco dependence COPD (chronic obstructive pulmonary disease) Surgical History History of below-knee amputation of right lower extremity (01/13/22) Cataract extraction status, right eye Cataract extraction status, left eye Hx of cholecystectomy Family History Family History Other CVA (cerebral vascular accident) Social History Social History Household Members: Children Housing: Apartment Housing Other:: hotel Do you presently have visiting nurse or other home services: Yes Unable to assess alcohol history related to: Unknown Alcohol intake: never Comment: refused telesitter Patient Tobacco Use Status: Current everyday Tobacco user Tobacco use type: Cigarette Cigarette Packs Per Day: 0.3 Cigarettes Per Day: 6.0 Years Smoked: 50 e-Cigarette/Vaping Use: Currently Using Second Hand Smoke Exposure: No Substance Use Type: Former Substance User Advance Directives: Yes Advance Directives on File: Yes Advance Directives Date on File: 10/20/23 service: No Current occupational status: disabled Physical Exam ED Vital Signs: Vital Signs - 24 hr 01/11/24 17:30 01/11/24 19:10 01/11/24 22:30 Temperature 98.2 F Pulse Rate 60 89 62 Respiratory Rate 18 22 H 17 Blood Pressure 82/37 L 135/59 L 71/40 L Pulse Oximetry 98 96 98 Oxygen Delivery Method Room Air Nasal Cannula Nasal Cannula Oxygen Flow Rate 2 2 01/11/24 22:52 01/11/24 23:01 01/11/24 23:48 Temperature Pulse Rate 62 65 57 Respiratory Rate 17 18 16 Blood Pressure 84/42 L 93/48 L 87/44 L Pulse Oximetry 100 100 100 Oxygen Delivery Method Nasal Cannula Nasal Cannula Nasal Cannula Oxygen Flow Rate 2 2 2 01/11/24 23:55 01/12/24 00:05 01/12/24 00:18 Temperature 94.2 F L 94.1 F L Pulse Rate 61 58 Respiratory Rate 16 15 Blood Pressure 102/52 L 98/52 L Pulse Oximetry 98 95 Oxygen Delivery Method Nasal Cannula Nasal Cannula Oxygen Flow Rate 2 2 01/12/24 00:33 01/12/24 00:47 01/12/24 00:52 Temperature 94.1 F L Pulse Rate 54 56 54 Respiratory Rate 20 Blood Pressure 83/41 L 88/44 L 81/44 L Pulse Oximetry 94 Oxygen Delivery Method Nasal Cannula Oxygen Flow Rate 2 01/12/24 00:57 01/12/24 01:02 01/12/24 01:04 Temperature 94.3 F L Pulse Rate 56 61 59 Respiratory Rate 14 Blood Pressure 80/43 L 88/46 L 112/58 L Pulse Oximetry 97 Oxygen Delivery Method Nasal Cannula Oxygen Flow Rate 2 01/12/24 01:08 01/12/24 01:11 01/12/24 01:21 Temperature 94.5 F L Pulse Rate 62 61 59 Respiratory Rate 14 Blood Pressure 121/73 151/64 H 116/56 L Pulse Oximetry 97 93 Oxygen Delivery Method Nasal Cannula Nasal Cannula Oxygen Flow Rate 2 2 BMI result Body Mass Index 23.8 Const General: cooperative, healthy appearing, comfortable, no acute distress, well developed and awake [facility] Head: Yes normal to inspection, Yes No palpable skull fracture present, Yes normocephalic and Yes atraumatic Ears: hearing grossly normal bilaterally, external ears normal, TM's normal bilaterally, TM normal on the right, TM normal on the left, EAC's normal, mastoids normal and no periauricular adenopathy Eyes Other: Right eye cataract blind. Left eye pupil constricited Neck Neck: Yes normal visual inspection, Yes full ROM, Yes no lymphadenopathy, Yes no meningeal signs, Yes trachea midline, Yes supple, No anterior neck swelling and No tender Chest Chest palpation & inspection: normal inspection of the chest and normal palpation of entire chest wall Resp Effort & Inspection: normal respiratory effort and able to speak in complete sentences Auscultation: clear to auscultation bilaterally Cardio Jugular venous distension: no JVD Heart sounds: S1 normal heart sound present and S2 normal heart sound present GI Inspection: Yes normal to inspection Palpation (GI): Soft to palpation, not firm, nontender, no guarding and not rigid General: No CVA tenderness and Yes no CVA tenderness Back/Spine/Pelvis Back: no CVA tenderness, No CVA tenderness and No back tenderness Skin General skin exam: no rashes or lesions noted and elasticity normal Neuro Other: Patient is sleepy/lethargic General: no meningeal signs Extrem Other: Right BKA Psych Appearance: grossly normal, well kempt and not disheveled Medications Administered Generic Name Dose Route Start Last Admin Trade Name Freq PRN Reason Stop Dose Admin Dextrose 250 mls @ 750 mls/hr 01/11/24 18:01 01/11/24 18:27 D10 IV Infused Q15M PRN Infusion per Hypoglycemia Standing Ord. Dextrose/Sodium Chloride 1,000 mls @ 100 mls/hr 01/11/24 18:15 01/11/24 22:58 D51/2ns IVCONT 0 mls/hr .Q10H PRECIOUS Infusion Norepinephrine Bitartrate 8 mg in 250 mls @ 0 mls/hr 01/12/24 01:00 01/12/24 01:11 Levophed IV 0.05 mcg/kg/min .Q0M PRECIOUS 5.9 mls/hr Titration Protocol Per Protocol Discontinued Medications Generic Name Dose Route Start Last Admin Trade Name Freq PRN Reason Stop Dose Admin Haloperidol Lactate 5 mg 01/11/24 19:16 01/11/24 19:23 Haloperidol Lactate 5 Mg/Ml Vial IM 01/11/24 19:17 5 mg STAT STA Administration Sodium Chloride 1,000 mls @ 999 mls/hr 01/11/24 17:18 01/11/24 19:13 Ns IV 01/11/24 18:18 Infused .Q1H1M STA Infusion Ceftriaxone Sodium 1 gm/ 50 mls @ 100 mls/hr 01/11/24 18:06 01/11/24 19:13 Sodium Chloride IV 01/11/24 18:35 Infused ONCE ONE Infusion Sodium Chloride 1,000 mls @ 999 mls/hr 01/11/24 22:30 01/11/24 23:46 Ns IV 01/11/24 23:30 Infused .Q1H1M STA Infusion Sodium Chloride 1,000 mls @ 999 mls/hr 01/11/24 23:31 01/12/24 00:25 Ns IV 01/12/24 00:31 Infused .Q1H1M STA Infusion Lorazepam 1 mg 01/11/24 19:47 01/11/24 19:51 Lorazepam 2 Mg/Ml Vial IVPUSH 01/11/24 19:48 1 mg STAT STA Administration Naloxone HCl 4 mg 01/11/24 17:16 01/11/24 17:18 Naloxone Hcl Nasal 4 Mg [place] NOSTRILALT 01/11/24 17:17 4 mg ONCE ONE Administration Medical Decision Making Medical Decision Making MDM Narrative: 64-year-old female with history of testis abuse, COPD, and diabetes presents to the ED lethargic pupils constricted with nausea vomiting after drug use. Patient is drowsy and sleepy. Patient given Narcan. Patient hypotensive. Will order labs and fluids. 6:05pm: After Narcan patient is now alert oriented x3. Her visiting nurse called the ambulance. Patient will not admit to using drugs. Patient admits to not taking her diabetes medication. Fingerstick ordered for glucose 48. D10 ordered. Antibiotics ordered. 11:22pm: patient had mutliple normal blood pressure of systolic over 120's on monitor, but was not documented. Patient is now hypotenisve. I believe to be hypotensive due to being given haldol and ativan. Patient was given Ativan and Haldol due to patient's flashing herself on the bed and saying she is itchy and wants meds to help her calm down. See him as if patient is going to withdrawal due to given Narcan. Ativan have the was given. Patient fell asleep and now blood pressure soft. Patient was WIll be given more fluids. Case initially presented to Dr. Shah of hospitalist, but will presents to ICU if no improvement 1:29am: Should now hypothermic and still hypotensive. Patient is placed on Joseline huggers. Lau placed. After 3rd bag of fluids patient is still hypotensive. Patient placed on Levophed. Case discussed with Dr. Stubbs ICU for admission for multifocal pneumonia sepsis. She recommend abdominal CT scan. Differential Diagnosis Differential Diagnoses: The differential diagnosis associated with the presentation includes (UTI, pneumonia, substance abuse, rhabdomyolysis, sepsis) Admission/Observation Consideration of admission/observation: Escalation of care including admission/observation considered Consult Healthcare Provider Management of the patient was discussed with: Hospitalist (Dr. Shah) and Practice Support Specialist (Dr. Sotelo) Lab Data MDM Lab Attestation statement: I reviewed the patient's lab results. 01/11/24 17:23 01/12/24 00:23 Labs: Lab Results 01/11/24 01/11/24 01/11/24 Range/Units 17:23 17:59 18:04 WBC 23.0 H (4.8-10.8) X10*3/uL RBC 3.34 L (4.20-5.50) X10*6/uL Hgb 9.5 L (12.0-16.0) g/dl Hct 29.5 L (37.0-47.0) % MCV 88.3 (80.0-98.0) fL MCH 28.4 (27.0-33.0) pg MCHC 32.2 (31.0-35.0) g/dl RDW 16.7 H (11.0-16.0) % Plt Count 358 (160-400) X10*3/uL MPV 11.1 (9.4-12.3) fL Immature Gran % (Auto) 0.7 H (0.0-0.4) % Neut % (Auto) 85.2 H (45-73) % Lymph % (Auto) 8.9 L (20-40) % [place] % (Auto) 5.0 (2-11) % Eos % (Auto) 0.0 (0-4) % Baso % (Auto) 0.2 (0-2) % Lymph # (Auto) 2.1 (1.2-4.9) X10*3/uL [place] # (Auto) 1.2 (0.1-1.2) X10*3/uL Eos # (Auto) 0.0 (0.0-0.4) X10*3/uL Baso # (Auto) 0.0 (0.0-0.2) X10*3/uL Abs Immat Gran (auto) 0.17 H (0.00-0.03) X10*3/uL Absolute Neuts (auto) 19.6 H (2.0-8.3) x10*3/uL Absolute Nucleated RBC 0.000 (0.0-0.012) X10*3/uL Nucleated RBC % (auto) 0.0 (0.0-0.2) /100WBC Sodium 135 (135-145) mmol/L Potassium 4.7 (3.3-5.1) mmol/L Chloride 102 (96-108) mmol/L Carbon Dioxide 20 L (22-29) mmol/L Anion Gap 18 (12-20) BUN 54 H (9-16) mg/dL Creatinine 3.29 H (0.5-1.4) mg/dL Estim Creat Clear Calc 14.9 Estimated GFR 14 POC Glucose 48 L* (60-115) mg/dL Random Glucose 54 L* (60-115) mg/dL Lactic Acid 2.1 H* (0.5-2.0) mmol/L Lactic Acid F/U @ 2Hr (0.5-2.0) mmol/L Lactic Acid F/U @ 4Hr (0.5-2.0) mmol/L Calcium 9.1 (8.4-10.2) mg/dL Magnesium 1.9 (1.6-2.6) mg/dL Total Bilirubin 0.3 (0.0-1.0) mg/dL AST 11 (5-31) U/L ALT 7 (0-31) U/L Alkaline Phosphatase 104 (39-117) U/L Total Creatine Kinase 58 (26-140) U/L Troponin I High Sens (<3.5-17.0) ng/L B-Natriuretic Peptide 144 H (<100) pg/mL Total Protein 7.0 (6.5-8.0) g/dL Albumin 3.2 L (3.5-5.0) g/dL Beta-Hydroxybutyrate 0.20 (0.02-0.27) mmol/L TSH 0.30 L (0.32-4.0) uIU/mL Free T4 0.98 (0.71-1.85) ng/dL Urine Color Yellow Urine Appearance Cloudy Urine pH 5.0 (5.0-9.0) Ur Specific [place] 1.020 (1.005-1.025) Urine Protein 30 (1+) H (Neg-Trace) mg/dL Urine Glucose (UA) 250 H (Negative) mg/dL Urine Ketones Trace (Negative) mg/dL Urine Blood Negative (Negative) Urine Nitrite Negative (Negative) Ur Leukocyte Esterase Small (1+) H (Negative) Urine RBC 0-2 (0-2) /HPF Urine WBC 0-5 (0-5) /HPF Ur Squamous Epith Cells 3-5 (0-2) /HPF Urine Bacteria None Seen (None Seen) Hyaline Casts 3-5 (0-2) /LPF Urine Yeast Present Urine Opiates Screen (Not Detect) Ur Buprenorphine Scrn (Not Detect) ng/mL Ur Oxycodone Screen (Not Detect) ng/mL Urine Methadone Screen (Not Detect) ng/mL Urine Fentanyl Screen (Not Detect) Ur Barbiturates Screen (Not Detect) Ur Phencyclidine Scrn (Not Detect) Ur Amphetamines Screen (Not Detect) U Benzodiazepines Scrn (Not Detect) Urine Cocaine Screen (Not Detect) U Marijuana (THC) Screen (Not Detect) Ethyl Alcohol < 10 mg/dL 0701/11/24 01/11/24 Range/Units 18:05 18:58 21:24 WBC (4.8-10.8) X10*3/uL RBC (4.20-5.50) X10*6/uL Hgb (12.0-16.0) g/dl Hct (37.0-47.0) % MCV (80.0-98.0) fL MCH (27.0-33.0) pg MCHC (31.0-35.0) g/dl RDW (11.0-16.0) % Plt Count (160-400) X10*3/uL MPV (9.4-12.3) fL Immature Gran % (Auto) (0.0-0.4) % Neut % (Auto) (45-73) % Lymph % (Auto) (20-40) % [place] % (Auto) (2-11) % Eos % (Auto) (0-4) % Baso % (Auto) (0-2) % Lymph # (Auto) (1.2-4.9) X10*3/uL [place] # (Auto) (0.1-1.2) X10*3/uL Eos # (Auto) (0.0-0.4) X10*3/uL Baso # (Auto) (0.0-0.2) X10*3/uL Abs Immat Gran (auto) (0.00-0.03) X10*3/uL Absolute Neuts (auto) (2.0-8.3) x10*3/uL Absolute Nucleated RBC (0.0-0.012) X10*3/uL Nucleated RBC % (auto) (0.0-0.2) /100WBC Sodium (135-145) mmol/L Potassium (3.3-5.1) mmol/L Chloride (96-108) mmol/L Carbon Dioxide (22-29) mmol/L Anion Gap (12-20) BUN (9-16) mg/dL Creatinine (0.5-1.4) mg/dL Estim Creat Clear Calc Estimated GFR POC Glucose 157 H (60-115) mg/dL Random Glucose (60-115) mg/dL Lactic Acid (0.5-2.0) mmol/L Lactic Acid F/U @ 2Hr 2.6 H* (0.5-2.0) mmol/L Lactic Acid F/U @ 4Hr (0.5-2.0) mmol/L Calcium (8.4-10.2) mg/dL Magnesium (1.6-2.6) mg/dL Total Bilirubin (0.0-1.0) mg/dL AST (5-31) U/L ALT (0-31) U/L Alkaline Phosphatase (39-117) U/L Total Creatine Kinase (26-140) U/L Troponin I High Sens 8.6 (<3.5-17.0) ng/L B-Natriuretic Peptide (<100) pg/mL Total Protein (6.5-8.0) g/dL Albumin (3.5-5.0) g/dL Beta-Hydroxybutyrate (0.02-0.27) mmol/L TSH (0.32-4.0) uIU/mL Free T4 (0.71-1.85) ng/dL Urine Color Urine Appearance Urine pH (5.0-9.0) Ur Specific [place] (1.005-1.025) Urine Protein (Neg-Trace) mg/dL Urine Glucose (UA) (Negative) mg/dL Urine Ketones (Negative) mg/dL Urine Blood (Negative) Urine Nitrite (Negative) Ur Leukocyte Esterase (Negative) Urine RBC (0-2) /HPF Urine WBC (0-5) /HPF Ur Squamous Epith Cells (0-2) /HPF Urine Bacteria (None Seen) Hyaline Casts (0-2) /LPF Urine Yeast Urine Opiates Screen POSITIVE H (Not Detect) Ur Buprenorphine Scrn Not Detected (Not Detect) ng/mL Ur Oxycodone Screen Not Detected (Not Detect) ng/mL Urine Methadone Screen Positive H (Not Detect) ng/mL Urine Fentanyl Screen POSITIVE H (Not Detect) Ur Barbiturates Screen Not Detected (Not Detect) Ur Phencyclidine Scrn Not Detected (Not Detect) Ur Amphetamines Screen Not Detected (Not Detect) U Benzodiazepines Scrn Not Detected (Not Detect) Urine Cocaine Screen POSITIVE H (Not Detect) U Marijuana (THC) Screen Not Detected (Not Detect) Ethyl Alcohol mg/dL 01/11/24 01/12/24 01/12/24 Range/Units 22:27 00:23 00:38 WBC (4.8-10.8) X10*3/uL RBC (4.20-5.50) X10*6/uL Hgb (12.0-16.0) g/dl Hct (37.0-47.0) % MCV (80.0-98.0) fL MCH (27.0-33.0) pg MCHC (31.0-35.0) g/dl RDW (11.0-16.0) % Plt Count (160-400) X10*3/uL MPV (9.4-12.3) fL Immature Gran % (Auto) (0.0-0.4) % Neut % (Auto) (45-73) % Lymph % (Auto) (20-40) % [place] % (Auto) (2-11) % Eos % (Auto) (0-4) % Baso % (Auto) (0-2) % Lymph # (Auto) (1.2-4.9) X10*3/uL [place] # (Auto) (0.1-1.2) X10*3/uL Eos # (Auto) (0.0-0.4) X10*3/uL Baso # (Auto) (0.0-0.2) X10*3/uL Abs Immat Gran (auto) (0.00-0.03) X10*3/uL Absolute Neuts (auto) (2.0-8.3) x10*3/uL Absolute Nucleated RBC (0.0-0.012) X10*3/uL Nucleated RBC % (auto) (0.0-0.2) /100WBC Sodium 134 L (135-145) mmol/L Potassium 4.3 (3.3-5.1) mmol/L Chloride 106 (96-108) mmol/L Carbon Dioxide 21 L (22-29) mmol/L Anion Gap 11 L (12-20) BUN 47 H (9-16) mg/dL Creatinine 2.66 H (0.5-1.4) mg/dL Estim Creat Clear Calc 18.4 Estimated GFR 18 POC Glucose 259 H 213 H (60-115) mg/dL Random Glucose 249 H (60-115) mg/dL Lactic Acid (0.5-2.0) mmol/L Lactic Acid F/U @ 2Hr (0.5-2.0) mmol/L Lactic Acid F/U @ 4Hr 1.3 (0.5-2.0) mmol/L Calcium 7.5 L D (8.4-10.2) mg/dL Magnesium (1.6-2.6) mg/dL Total Bilirubin 0.1 (0.0-1.0) mg/dL AST 11 (5-31) U/L ALT 7 (0-31) U/L Alkaline Phosphatase 86 (39-117) U/L Total Creatine Kinase (26-140) U/L Troponin I High Sens (<3.5-17.0) ng/L B-Natriuretic Peptide (<100) pg/mL Total Protein 5.5 L (6.5-8.0) g/dL Albumin 2.5 L (3.5-5.0) g/dL Beta-Hydroxybutyrate (0.02-0.27) mmol/L TSH (0.32-4.0) uIU/mL Free T4 (0.71-1.85) ng/dL Urine Color Urine Appearance Urine pH (5.0-9.0) Ur Specific [place] (1.005-1.025) Urine Protein (Neg-Trace) mg/dL Urine Glucose (UA) (Negative) mg/dL Urine Ketones (Negative) mg/dL Urine Blood (Negative) Urine Nitrite (Negative) Ur Leukocyte Esterase (Negative) Urine RBC (0-2) /HPF Urine WBC (0-5) /HPF Ur Squamous Epith Cells (0-2) /HPF Urine Bacteria (None Seen) Hyaline Casts (0-2) /LPF Urine Yeast Urine Opiates Screen (Not Detect) Ur Buprenorphine Scrn (Not Detect) ng/mL Ur Oxycodone Screen (Not Detect) ng/mL Urine Methadone Screen (Not Detect) ng/mL Urine Fentanyl Screen (Not Detect) Ur Barbiturates Screen (Not Detect) Ur Phencyclidine Scrn (Not Detect) Ur Amphetamines Screen (Not Detect) U Benzodiazepines Scrn (Not Detect) Urine Cocaine Screen (Not Detect) U Marijuana (THC) Screen (Not Detect) Ethyl Alcohol mg/dL Independent Interpretation I performed an independent interpretation of an: Plain X-Ray Radiology Impression Discussion of test interpretation with radiology: I have reviewed the radiologist's reading. Independent Historian Clinical information obtained from an independent historian. History obtained from or confirmed by: EMS and Other (patient) External Record Review External record reviewed: Other (prior visits) Critical Care Time Critical Care Time Critical Care Time: Yes Total Critical Care Time: 60 Attestation: Patient presents hypotensive some medical workup was started. Narcan given to awaken patient. POC shows glucose of 48. D10 ordered. D5 fluids given. Antibiotics started. Patient has multifocal pneumonia. Patient is still hypotensive tugging on pressors. Patient is hypothermic patient is placed on [facility] Discharge Plan Discharge Clinical Impression: Pneumonia Patient Disposition: Admitted As Inpatient Print Language: German
[2024-01-11] MEDS: Naloxone HCl Nasal 4 MG SPRAY NOSTRILALT (17:18)
[2024-01-11 17:29] LABS: MANUAL DIFF FLAG NO
[2024-01-11 17:34] LABS: Basophils Percent Auto 0.2 % (0-2); Hematocrit 29.5 % (37.0-47.0); Hemoglobin 9.5 g/dl (12.0-16.0); Imm Gran Abs Auto 0.17 X10*3/uL (0.00-0.03); Imm Gran Pct Auto 0.7 % (0.0-0.4); Lymphocytes Absolute Auto 2.1 X10*3/uL (1.2-4.9); Lymphocytes Percent Auto 8.9 % (20-40); Mean Corpuscular HGB Conc 32.2 g/dl (31.0-35.0); Mean Corpuscular Hemoglobin 28.4 pg (27.0-33.0); Mean Corpuscular Volume 88.3 fL (80.0-98.0); Mean Platelet Volume 11.1 fL (9.4-12.3); Monocytes Absolute Auto 1.2 X10*3/uL (0.1-1.2); Neutrophils Absolute Auto 19.6 x10*3/uL (2.0-8.3); Neutrophils Percent Auto 85.2 % (45-73); Platelet Count 358 X10*3/uL (160-400); Red Blood Count 3.34 X10*6/uL (4.20-5.50); Red Cell Distribution Width 16.7 % (11.0-16.0)
--- NOTE | 2024-01-11 17:34 | ECG_ITS ---
Test Reason : HYPOTENSION Blood Pressure : / mmHG Vent. Rate : 083 BPM Atrial Rate : 083 BPM P-R Int : 284 ms QRS Dur : 092 ms QT Int : 514 ms P-R-T Axes : 063 016 049 degrees QTc Int : 603 ms Sinus rhythm with 1st degree A-V block Minimal voltage criteria for LVH, may be normal variant ( [place] product ) Nonspecific ST and T wave abnormality Abnormal ECG When compared with ECG of 31-DEC-2023 15:31, VT interval has increased Nonspecific T wave abnormality now evident in Inferior leads Nonspecific T wave abnormality now evident in Anterolateral leads QT has lengthened Referred By: Bobby Oliveira Electronically Signed By:Omid De Guzman
--- NOTE | 2024-01-11 17:36 | PC.NURSE ---
Patient alert and responsive, but slow to respond. Denies pain or discomfort. Denies drug or etoh use. Per ems patient with nausea and vomiting. VNA nurse stated to EMS that he belives patient has used drugs, son and neighbor state patient without recent drug use
[2024-01-11] MEDS: 0.9 % Sodium Chloride 1,000 ML 999 ML IV ×3 (18:05→23:47)
[2024-01-11] MEDS: Dextrose 10 % 250 ML 750 ML IV (18:06)
[2024-01-11 18:07] LABS: Glucose, Whole Blood 48 mg/dL (60-115)
[2024-01-11 18:08] LABS: B Type Natriuretic Peptide 144 pg/mL (<100)
[2024-01-11 18:12] LABS: Glucose Urine UA 250 mg/dL (Negative); Leukocyte Esterase Urine Small (1+) (Negative); Nitrite Urine Negative (Negative); UMIC TRIGGER UACC YES; Urine Blood Negative (Negative); Urine Ketones Trace mg/dL (Negative); Urine Protein 30 (1+) mg/dL (Neg-Trace)
[2024-01-11] MEDS: cefTRIAXone sodium 1 GM in 0.9 % Sodium Chloride 50 ML IV (18:14)
[2024-01-11 18:19] LABS: Appearance Urine Cloudy; Color Urine Yellow
[2024-01-11] MEDS: Dextrose 5 % and 0.45 % NaCl 1,000 ML 100 ML IVCONT (18:27)
--- NOTE | 2024-01-11 18:41 | PC.NURSE ---
Patient alert and oriented, reports feeling twitchy. maintenance fluids running per order , no s/s of hypoglycemia
[2024-01-11 18:45] LABS: Bacteria Urine None Seen (None Seen); RBC Urine 0-2 /HPF (0-2); UACC Culture Trigger YES; WBC Urine 0-5 /HPF (0-5)
[2024-01-11 18:45] LABS: Troponin-I High Sensitivity 8.6 ng/L (<3.5-17.0)
[2024-01-11 18:47] LABS: Lactic Acid 2.1 mmol/L (0.5-2.0)
[2024-01-11 18:48] LABS: Alanine Aminotransferase 7 U/L (0-31); Albumin Level 3.2 g/dL (3.5-5.0); Alkaline Phosphatase 104 U/L (39-117); Anion Gap 18 (12-20); Aspartate Amino Transferase 11 U/L (5-31); Blood Urea Nitrogen 54 mg/dL (9-16); Calcium 9.1 mg/dL (8.4-10.2); Carbon Dioxide 20 mmol/L (22-29); Chloride 102 mmol/L (96-108); Creatinine Clr Calc Pharmacy 14.9; Estimated Glomerular Filt Rate 14; Ethanol < 10 mg/dL; Glucose Random 54 mg/dL (60-115); Magnesium 1.9 mg/dL (1.6-2.6); Potassium 4.7 mmol/L (3.3-5.1); Sodium 135 mmol/L (135-145)
[2024-01-11 18:49] LABS: Amphetamine Screen Urine Not Detected (Not Detect); Barbiturates, Urine Not Detected (Not Detect); Benzodiazepines Screen Urine Not Detected (Not Detect); Buprenorphine Scr Not Detected (Not Detect); Cannabinoid Screen Urine Not Detected (Not Detect); Cocaine Screen Urine POSITIVE (Not Detect); Fentanyl, urine POSITIVE (Not Detect); Methadone Screen, Urine Positive (Not Detect); Opiate Screen Urine POSITIVE (Not Detect); Oxycodone Screen Urine Not Detected (Not Detect); Phencyclidine Screen Urine Not Detected (Not Detect)
[2024-01-11 19:02] LABS: Glucose, Whole Blood 157 mg/dL (60-115)
--- NOTE | 2024-01-11 19:04 | PC.NURSE ---
Addendum entered by Gwendolyn Valentine 01/11/24 19:13: upon entering room NS and ceftriaxone infused unsure of end time, ended in sep. Original Note: assumed care of pt at this time. pt is flailing in bed stating she is twitching d/t being narcaned. poc 157. Bobby FERGUSON to bedside.
[2024-01-11 19:09] LABS: Bilirubin Total 0.3 mg/dL (0.0-1.0)
--- NOTE | 2024-01-11 19:20 | PC.NURSE ---
Addendum entered by Gwendolyn Valentine 01/11/24 19:29: by MARTY* Original Note: haldol IM ordered per mar by ; not a restraint as pt requesting medication, pt not being held down to administer IM.
[2024-01-11] MEDS: Haloperidol Lactate 5 MG/ML VIAL IM (19:23)
--- NOTE | 2024-01-11 19:29 | PC.NURSE ---
pt medicated per sep. pt verbalized agreement for medication and administered to R. deltoid. will reassess sx.
[2024-01-11] MEDS: LORazepam 2 MG/ML VIAL 1 MG IVPUSH (19:51)
--- NOTE | 2024-01-11 19:53 | PC.NURSE ---
pt remains flailing yelling out reporting she is twitching/in pain. PA made aware and medicated per sep.
[2024-01-11 20:09] LABS: Reflex Lactate? Lactic Acid Added
--- NOTE | 2024-01-11 20:41 | PC.NURSE ---
sx improved slightly from previous assessment but patient remains uncomfortable, hyperactive in bed reporting aches and inability to stay still. pt remains axox4 speaking full clear sentences. PA made aware.
[2024-01-11 22:01] LABS: ~Lactic Acid-LAB USE ONLY 2.6 mmol/L (0.5-2.0)
[2024-01-11 22:49] LABS: Glucose, Whole Blood 259 mg/dL (60-115)
--- NOTE | 2024-01-11 22:52 | PC.NURSE ---
2229 - pt is arousable to painful stimuli. bp low 71/40 sats 98% on 2L NC. poc 259. pt repositioned PA notified. IVF Bolus hung per sep. at this time BP improving 84/42. bed linen changed td care provided. resp even and unlabored nsr on monitor at 62 bpm. sats 100% on 2L NC. pt placed in trendelenberg position and ivf infusing on pressure bag.
--- NOTE | 2024-01-11 22:59 | PC.NURSE ---
d5 paused at this time per PA as poc 259. bp improving 93/48.
[2024-01-11 23:28] LABS: Reflex Lactate? 2 Y
[2024-01-12] VITALS (40 sets, daily range): BP systolic 80–163; BP diastolic 41–73; PULSE 54–74; RESP 13–25; TEMP 34.5–37.2; O2SAT 91–100; BMI 23.8
--- NOTE | 2024-01-12 | ECG_ITS ---
Test Reason : prolong qct Blood Pressure : / mmHG Vent. Rate : 060 BPM Atrial Rate : 060 BPM P-R Int : 148 ms QRS Dur : 092 ms QT Int : 482 ms P-R-T Axes : 046 020 019 degrees QTc Int : 482 ms Normal sinus rhythm Nonspecific T wave abnormality Prolonged QT Abnormal ECG No previous ECGs available Referred By: Daniella Sotelo Electronically Signed By:Omid De Guzman
--- NOTE | 2024-01-12 00:19 | PC.NURSE ---
rectal temp 94.2 PA notified blayne graham on pt. temp sensing phipps inserted per PA. repeat chem and lactic being drawn at this time. pt arousable with painful stimuli and following commands appropriately.
[2024-01-12 00:41] LABS: ~Lactic Acid-LAB USE ONLY 1.3 mmol/L (0.5-2.0)
[2024-01-12 00:45] LABS: Glucose, Whole Blood 213 mg/dL (60-115)
[2024-01-12] MEDS: Norepinephrine Bitartrate/D5W 8 MG/250 ML PLAST..BAG 5.9 MG IV (00:47)
--- NOTE | 2024-01-12 00:47 | PC.NURSE ---
Addendum entered by Gwendolyn Valentine 01/12/24 00:48: HR 56 BP 88/44 Original Note: levophed started at bedscale weight 62.9k, at starting rate 0.05mcg/kg/min.
[2024-01-12 00:50] LABS: Alanine Aminotransferase 7 U/L (0-31); Albumin Level 2.5 g/dL (3.5-5.0); Alkaline Phosphatase 86 U/L (39-117); Anion Gap 11 (12-20); Aspartate Amino Transferase 11 U/L (5-31); Bilirubin Total 0.1 mg/dL (0.0-1.0); Blood Urea Nitrogen 47 mg/dL (9-16); Calcium 7.5 mg/dL (8.4-10.2); Carbon Dioxide 21 mmol/L (22-29); Chloride 106 mmol/L (96-108); Creatinine Clr Calc Pharmacy 18.4; Estimated Glomerular Filt Rate 18; Glucose Random 249 mg/dL (60-115); Potassium 4.3 mmol/L (3.3-5.1); Sodium 134 mmol/L (135-145); Total Protein 5.5 g/dL (6.5-8.0)
[2024-01-12 01:07] LABS: Free T4 (Free Thyroxine) 0.98 ng/dL (0.71-1.85)
[2024-01-12] MEDS: Albumin Human 25 % 100 ML 133.33 ML IV ×2 (01:41→02:37)
--- NOTE | 2024-01-12 02:14 | PM.CCHP ---
History of Present Illness Date of Service: 01/12/24 Attending physician on admission: Daniella Sotelo Chief Complaint: Nausea and vomiting The patient is a? 63-year-old female with a past medical history of COPD,? PE (?? if patient is on Xarelto),? type 2 diabetes mellitus, polysubstance abuse on methadone, dyslipidemia, constipation, tobacco use? and recent admission 12/31/23 to 01/04/24 for hypoxia due to infectious inflammatory pneumonitis, acute COPD exacerbation? and she came back positive for fentanyl? was discharged with Augmentin, prednisone taper,? home nurse? services and advised to continue her methadone.? ?She presented to the emergency department after home nurse called EMS and? reported patient confused with nausea/vomiting /diarrhea. ? She had a recent admission from. On arrival to the emergency department,? patient was lethargic,? pupils constricted,? she received Narcan and became alert and oriented x3, Vital signs were stable.? She later became confused,? agitated? require administration of Ativan and Haldol.? After Ativan and Haldol patient became obtunded,? blood pressure dropped to 80s systolic despite 3 L bolus.? Requiring initiation of pressors. ? Laboratory data was significant for WBC 23, serum bicarb 21, anion gap 11, BUN 47, creatinine 2.66, lactic acid 2.6, calcium 7.5, albumin 2.5, Finger POC was only 48.? She received dextrose.?? TOXICOLOGY:? positive for opiates, methadone, fentanyl, and cocaine IMAGING:? ?Chest x-ray:? with signs of aspiration and multifocal pneumonia ED course:? she received naloxone 4 mg IN, ? ceftriaxone 1 g, 3 L normal saline bolus, Ativan 1 g, Haldol 5 mg, and started on Levophed Review of Systems Review of Systems: Yes Unobtainable due to mental status PMFSH Past Medical History Medical History Diabetic osteomyelitis Below-knee amputation of right lower extremity Osteomyelitis of ankle Charcot foot due to diabetes mellitus Acute hyperglycemia Cellulitis Gastroenteritis Gastritis Constipation Diabetic foot ulcer New onset of congestive heart failure DKA (diabetic ketoacidoses) COVID-19 Dyslipidemia Glaucoma Pulmonary emboli Depression Chronic prescription opiate use Diabetes mellitus Pulmonary nodule Tobacco dependence COPD (chronic obstructive pulmonary disease) Family History Family History Other CVA (cerebral vascular accident) Surgical History Surgical History History of below-knee amputation of right lower extremity (01/13/22) Cataract extraction status, right eye Cataract extraction status, left eye Hx of cholecystectomy Social History Social History Household Members: Unknown / Unable to assess Housing: Unknown / Unable to assess Housing Other:: hotel Do you presently have visiting nurse or other home services: Yes Unable to assess alcohol history related to: Unknown Alcohol intake: never Comment: refused telesitter Patient Tobacco Use Status: Tobacco use Unknown Tobacco use type: Cigarette Cigarette Packs Per Day: 0.3 Cigarettes Per Day: 6.0 Years Smoked: 50 e-Cigarette/Vaping Use: Currently Using Second Hand Smoke Exposure: No Use of substances other than those prescribed or required for medical reasons: Unable to respond Substance Use Type: Former Substance User Last Used Substance: Just Prior to Admission Advance Directives: Yes Advance Directives on File: Yes Advance Directives Date on File: 10/20/23 Recently lost weight without trying: Unsure Patient : No service: No Current occupational status: disabled Meds Allergies Allergy/AdvReac Type Severity Reaction Status Date / Time No Known Allergies Allergy Verified 01/11/24 16:30 Active Medications: Current Medications Heparin Sodium (Porcine) (Heparin Sodium,Porcine 5,000 Unit/Ml Vial) 5,000 unit SUBCUT Q8H [facility] Dextrose (D10) 250 mls @ 750 mls/hr IV Q15M PRN PRN Reason: per Hypoglycemia Standing Ord. Last Infusion: 01/11/24 18:27 Dose: Infused Dextrose/Sodium Chloride (D51/2ns) 1,000 mls @ 100 mls/hr IVCONT .Q10H PRECIOUS Last Infusion: 01/12/24 01:48 Dose: Infused Norepinephrine Bitartrate (Levophed) 8 mg in 250 mls @ 0 mls/hr IV .Q0M PRECIOUS; Protocol Last Titration: 01/12/24 01:11 Dose: 0.05 mcg/kg/min, 5.9 mls/hr Albumin Human (Kedbumin 25 %) 100 mls @ 133.333 mls/hr IV Q1H [facility] Stop: 01/12/24 03:44 Last Admin: 01/12/24 01:41 Dose: 133.33 mls/hr Vancomycin HCl 1,000 mg/ (Sodium Chloride) 270 mls @ 270 mls/hr IV ONCE ONE Stop: 01/12/24 02:48 Piperacillin Sod/Tazobactam (Sod 4.5 gm/ Sodium Chloride) 100 mls @ 200 mls/hr IV Q8H [facility] Pharmacy Consult (Consult Rx Vancomycin Dosing) 1 each MISCELLANE DAILY PRN PRN Reason: Consult order Home Medications ?Medication ?Instructions ?Recorded ?Confirmed ?Last Taken ?Type albuterol sulfate 90 mcg/actuation 2 puff PO Q4H PRN Respiratory 04/24/20 01/12/24 10/12/23 History aerosol inhaler Distress aspirin 81 mg tablet,delayed 81 mg PO DAILY 04/24/20 01/12/24 12/29/23 History release atorvastatin 40 mg tablet 40 mg PO DAILY 04/24/20 01/12/24 12/29/23 History bupropion HCl 150 mg tablet,12 hr 150 mg PO BID 04/24/20 01/12/24 12/29/23 History sustained-release lancets 33 gauge #100 ea 04/24/20 01/12/24 10/12/23 History metformin 1,000 mg tablet 1,000 mg PO BIDWM 04/24/20 01/12/24 12/29/23 History omeprazole 20 mg capsule,delayed 20 mg PO DAILY@0630 04/24/20 01/12/24 12/29/23 History release gabapentin 600 mg tablet 600 mg PO TID 05/03/20 01/12/24 12/29/23 History insulin degludec 100 unit/mL (3 20 unit subcut BEDTIME 10/13/23 01/12/24 12/29/23 History mL) subcutaneous pen (Tresiba FlexTouch U-100 insulin) acetaminophen 325 mg capsule 325 mg PO QID PRN Pain 11/02/23 01/12/24 Unknown History insulin aspart (niacinamide) 0 sliding scale dose subcut 12/31/23 01/12/24 12/29/23 History (U-100) 100 unit/mL subcutaneous USEASDIRECTD solution (Fiasp U-100 Insulin) metoprolol succinate 25 mg 25 mg PO DAILY 12/31/23 01/12/24 12/29/23 History tablet,extended release 24 hr mirtazapine 7.5 mg tablet 7.5 mg PO BEDTIME 12/31/23 01/12/24 12/29/23 History fluticasone furoate 100 1 inh inhalation DAILY 01/01/24 01/12/24 12/29/23 History mcg/actuation blister powder for inhalation (Arnuity Ellipta) methadone 10 mg/mL oral concentrate 130 mg PO DAILY 01/01/24 01/12/24 12/30/23 History sulfamethoxazole 800 1 tab PO MOWEFR 01/01/24 01/12/24 12/29/23 History mg-trimethoprim 160 mg tablet (Bactrim DS) zolpidem 10 mg tablet 10 mg PO BEDTIME PRN Sleep 01/01/24 01/12/24 Unknown History Physical Exam Vital Signs: Vital Signs: Last Vital Signs Temp 94.5 F L 01/12/24 01:08 Pulse 59 01/12/24 01:21 Resp 14 01/12/24 01:08 BP 116/56 L 01/12/24 01:21 Pulse Ox 93 01/12/24 01:21 O2 Del Method Nasal Cannula 01/12/24 01:21 O2 Flow Rate 2 01/12/24 01:21 BMI result Body Mass Index 23.8 Focused assesment performed at 0130 ?General:? Patient obtunded, protecting airway, opens eyes to painful stimuli. ?HEENT:? Head is normocephalic, atraumatic, right pupil equal round reactive to light accommodation bilaterally.? Left eye has cataract, Extraocular movements appear intact.? Buccal mucosa is moist, Neck is supple ?Cardiac:? Clear S1-S2, no murmurs rubs or gallops. ?Pulmonary:? Clear to auscultation, no wheezes, rales or rhonchi. ?Abdomen:? ?Abdomen soft, non-tender, non-distended. Normal bowel sounds. No pulsatile mass. No hepatosplenomegaly. ?Musculoskeletal:? Moving all 4 extremities randomly. Right BKA, left Charcot foot ?Neurologic:? No focal deficits noted ?Skin:? Skin is dry, scattered bruises Vascular:? 2+ pulses upper extremities distally.? Left foot pulses +2 Results Labs 01/12/24 05:29 01/12/24 05:29 Labs: Laboratory Results - last 24 hr 01/11/24 01/11/24 01/11/24 17:23 17:59 18:04 MCV 88.3 MCH 28.4 MCHC 32.2 RDW 16.7 H Plt Count 358 MPV 11.1 Immature Gran % (Auto) 0.7 H Neut % (Auto) 85.2 H Lymph % (Auto) 8.9 L [place] % (Auto) 5.0 Eos % (Auto) 0.0 Baso % (Auto) 0.2 Lymph # (Auto) 2.1 [place] # (Auto) 1.2 Eos # (Auto) 0.0 Baso # (Auto) 0.0 Abs Immat Gran (auto) 0.17 H Absolute Neuts (auto) 19.6 H Absolute Nucleated RBC 0.000 Nucleated RBC % (auto) 0.0 Anion Gap 18 Estim Creat Clear Calc 14.9 Estimated GFR 14 POC Glucose 48 L* Random Glucose 54 L* Lactic Acid 2.1 H* Lactic Acid F/U @ 2Hr Lactic Acid F/U @ 4Hr Calcium 9.1 Magnesium 1.9 Total Bilirubin 0.3 AST 11 ALT 7 Alkaline Phosphatase 104 Total Creatine Kinase 58 Troponin I High Sens B-Natriuretic Peptide 144 H Total Protein 7.0 Albumin 3.2 L Beta-Hydroxybutyrate 0.20 TSH 0.30 L Free T4 0.98 Urine Color Yellow Urine Appearance Cloudy Urine pH 5.0 Ur Specific [place] 1.020 Urine Protein 30 (1+) H Urine Glucose (UA) 250 H Urine Ketones Trace Urine Blood Negative Urine Nitrite Negative Ur Leukocyte Esterase Small (1+) H Urine RBC 0-2 Urine WBC 0-5 Ur Squamous Epith Cells 3-5 Urine Bacteria None Seen Hyaline Casts 3-5 Urine Yeast Present Urine Opiates Screen Ur Buprenorphine Scrn Ur Oxycodone Screen Urine Methadone Screen Urine Fentanyl Screen Ur Barbiturates Screen Ur Phencyclidine Scrn Ur Amphetamines Screen U Benzodiazepines Scrn Urine Cocaine Screen U Marijuana (THC) Screen Ethyl Alcohol < 10 01/11/24 01/11/24 01/11/24 18:05 18:58 21:24 MCV MCH MCHC RDW Plt Count MPV Immature Gran % (Auto) Neut % (Auto) Lymph % (Auto) [place] % (Auto) Eos % (Auto) Baso % (Auto) Lymph # (Auto) [place] # (Auto) Eos # (Auto) Baso # (Auto) Abs Immat Gran (auto) Absolute Neuts (auto) Absolute Nucleated RBC Nucleated RBC % (auto) Anion Gap Estim Creat Clear Calc Estimated GFR POC Glucose 157 H Random Glucose Lactic Acid Lactic Acid F/U @ 2Hr 2.6 H* Lactic Acid F/U @ 4Hr Calcium Magnesium Total Bilirubin AST ALT Alkaline Phosphatase Total Creatine Kinase Troponin I High Sens 8.6 B-Natriuretic Peptide Total Protein Albumin Beta-Hydroxybutyrate TSH Free T4 Urine Color Urine Appearance Urine pH Ur Specific [place] Urine Protein Urine Glucose (UA) Urine Ketones Urine Blood Urine Nitrite Ur Leukocyte Esterase Urine RBC Urine WBC Ur Squamous Epith Cells Urine Bacteria Hyaline Casts Urine Yeast Urine Opiates Screen POSITIVE H Ur Buprenorphine Scrn Not Detected Ur Oxycodone Screen Not Detected Urine Methadone Screen Positive H Urine Fentanyl Screen POSITIVE H Ur Barbiturates Screen Not Detected Ur Phencyclidine Scrn Not Detected Ur Amphetamines Screen Not Detected U Benzodiazepines Scrn Not Detected Urine Cocaine Screen POSITIVE H U Marijuana (THC) Screen Not Detected Ethyl Alcohol 01/11/24 01/12/24 01/12/24 22:27 00:23 00:38 MCV MCH MCHC RDW Plt Count MPV Immature Gran % (Auto) Neut % (Auto) Lymph % (Auto) [place] % (Auto) Eos % (Auto) Baso % (Auto) Lymph # (Auto) [place] # (Auto) Eos # (Auto) Baso # (Auto) Abs Immat Gran (auto) Absolute Neuts (auto) Absolute Nucleated RBC Nucleated RBC % (auto) Anion Gap 11 L Estim Creat Clear Calc 18.4 Estimated GFR 18 POC Glucose 259 H 213 H Random Glucose 249 H Lactic Acid Lactic Acid F/U @ 2Hr Lactic Acid F/U @ 4Hr 1.3 Calcium 7.5 L D Magnesium Total Bilirubin 0.1 AST 11 ALT 7 Alkaline Phosphatase 86 Total Creatine Kinase Troponin I High Sens B-Natriuretic Peptide Total Protein 5.5 L Albumin 2.5 L Beta-Hydroxybutyrate TSH Free T4 Urine Color Urine Appearance Urine pH Ur Specific [place] Urine Protein Urine Glucose (UA) Urine Ketones Urine Blood Urine Nitrite Ur Leukocyte Esterase Urine RBC Urine WBC Ur Squamous Epith Cells Urine Bacteria Hyaline Casts Urine Yeast Urine Opiates Screen Ur Buprenorphine Scrn Ur Oxycodone Screen Urine Methadone Screen Urine Fentanyl Screen Ur Barbiturates Screen Ur Phencyclidine Scrn Ur Amphetamines Screen U Benzodiazepines Scrn Urine Cocaine Screen U Marijuana (THC) Screen Ethyl Alcohol Imaging Radiologist's Impressions: Impressions Chest X-Ray 01/11/24 18:38 IMPRESSION: Bronchial wall thickening and multiple bilateral areas of increased hazy opacity suspicious for multifocal pneumonia. Assessment and Plan (1) Septic shock: Status: Acute (2) Aspiration pneumonia: Status: Acute (3) Metabolic encephalopathy: Status: Acute (4) Acute hypoxic respiratory failure: Status: Resolved (5) AUBRIE (acute kidney injury): Status: Resolved (6) Hypoglycemia: Status: Inactive Plan 63-year-old female with a past medical history of COPD,? PE (?? if patient is on Xarelto),? type 2 diabetes mellitus, polysubstance abuse on methadone, dyslipidemia, constipation, tobacco use admitted to ICU for septic shock likely from pulmonary source Neuro:? ?Metabolic encephalopathy:? patient is obtunded,? likely from combination of Ativan and Haldol and previous drug use.? She does respond to painful stimuli,? is protecting airway.? Should resolve with more time.? Cardiac:?? ?Septic shock:? lactate was elevated to 2.6,? blood pressures dropped to systolic of 80s,? Cause for? septic shock seems to be possible aspiration due to multiple drug use.? Will also obtain abdominal CT due to chief complaint being nausea and vomiting. ? Wean off Levophed as tolerated.? Pulmonary:? ?Acute hypoxic respiratory failure:? she had a recent admission for inflammatory pneumonitis and acute COPD exacerbation and was sent home on Augmentin,? at the time of the admission cause for inflammatory pneumonitis was deemed to be drug abuse.? Hypoxia due to aspiration from multiple drug abuse this time.? Continue antibiotics.? Wean off supplemental oxygenation as tolerated.? Renal:?? AUBRIE- ? nonoliguric,? Creatinine 2.66 today, from hypoperfusion,? received 3 L of fluids in the? ED.? her albumin is low,? will add albumin replacement. . Continue to check renal indices and urine output.? GI:?? ?Nausea and vomiting:? abdomen is nondistended, ? she does have a mild degree of metabolic acidosis, ? We will obtain abdominal CT to rule out possible abdominal sources of? infection/? abnormality Endo:?? ?Hypoglycemia- ? could be related to septic shock,? she? does have underlying history of diabetes mellitus. ? Will continue? fluid with dextrose due to patient mental status Heme/Onc:? ?No acute? issues ID:? ?Aspiration pneumonia:? chest x-ray does show some signs of aspiration pneumonia,? treated with ceftriaxone in the emergency department.? Will broaden antibiotic coverage Psych:? Patient's toxicology positive for opiates, fentanyl, cocaine and methadone. Previous admission she was positive for fentanyl, but was adamant that she was not doing any drugs, she met with the addiction medicine, and recommended continue methadone. Prophylaxis:? Heparin subcut Code? status: ? ? FULL CODE Critical care time: x 60 min of critical care time?
--- NOTE | 2024-01-12 02:22 | PC.NURSE ---
pt to ct scan and back to room without issues. phipps bag emptied 1200 mL urine, Preston FERGUSON aware of output. vitals stable upon transfer to icu. verbal report given to Jessie and pt now in icu.
[2024-01-12 02:32] LABS: VBG Base Excess -4.1 mmol/L; VBG HCO3 19 mmol/L (22-26); VBG pCO2 30 mmHg; VBG pH 7.41 (7.32-7.43); VBG pO2 45 mmHg
[2024-01-12] MEDS: Piperacillin Sodium/Tazobactam 4.5 GM in 0.9 % Sodium Chloride 100 ML IV ×3 (02:38→18:21)
[2024-01-12 02:40] LABS: Venous Blood Gas Refer to POC result
[2024-01-12 02:45] LABS: Ammonia 28 umol/L (13-55)
[2024-01-12] MEDS: vancomycin HCL 1,000 MG in 0.9 % Sodium Chloride 250 ML 270 MG IV (03:10)
--- NOTE | 2024-01-12 05:31 | PC.NURSE ---
Pt admitted to ICU from ED at approx 0215. Upon initial assessment- pt obtunded, minimally responsive to noxious stimuli, FINISH OFF OPERATOR Roberts aware. Temp down to 95.5 via core bladder probe, Joseline hugger applied. NSR/SB on tele, HR 50-60s. Levophed ordered and titrated to maintain MAP > 65. SpO2 > 92% on 2L NC. Urinary catheter in place, UOP as charted. Skin overall intact, R BKA. Repositioned in bed q2hr, bed alarm on and locked in lowest position.
[2024-01-12 05:35] LABS: VBG Base Excess -1.6 mmol/L; VBG HCO3 21 mmol/L (22-26); VBG pCO2 27 mmHg; VBG pH 7.48 (7.32-7.43); VBG pO2 77 mmHg
[2024-01-12 05:43] LABS: MANUAL DIFF FLAG NO
[2024-01-12 05:44] LABS: Basophils Percent Auto 0.2 % (0-2); Eosinophils Percent Auto 0.1 % (0-4); Hematocrit 21.7 % (37.0-47.0); Hemoglobin 7.1 g/dl (12.0-16.0); Imm Gran Abs Auto 0.08 X10*3/uL (0.00-0.03); Imm Gran Pct Auto 0.5 % (0.0-0.4); Lymphocytes Absolute Auto 2.2 X10*3/uL (1.2-4.9); Lymphocytes Percent Auto 15.1 % (20-40); Mean Corpuscular HGB Conc 32.7 g/dl (31.0-35.0); Mean Corpuscular Hemoglobin 28.2 pg (27.0-33.0); Mean Corpuscular Volume 86.1 fL (80.0-98.0); Mean Platelet Volume 11.1 fL (9.4-12.3); Monocytes Absolute Auto 0.7 X10*3/uL (0.1-1.2); Monocytes Percent Auto 4.8 % (2-11); Neutrophils Absolute Auto 11.7 x10*3/uL (2.0-8.3); Neutrophils Percent Auto 79.3 % (45-73); Platelet Count 231 X10*3/uL (160-400); Red Blood Count 2.52 X10*6/uL (4.20-5.50); Red Cell Distribution Width 16.4 % (11.0-16.0); White Blood Count 14.7 X10*3/uL (4.8-10.8)
[2024-01-12 05:51] LABS: Venous Blood Gas Refer to POC result
[2024-01-12] MEDS: Heparin Sodium,Porcine 5,000 UNIT/ML VIAL 5000 UNIT SUBCUT ×2 (05:53→14:31)
[2024-01-12 06:00] LABS: Alanine Aminotransferase 6 U/L (0-31); Albumin Level 3.3 g/dL (3.5-5.0); Alkaline Phosphatase 80 U/L (39-117); Anion Gap 13 (12-20); Aspartate Amino Transferase 10 U/L (5-31); Bilirubin Total 0.3 mg/dL (0.0-1.0); Blood Urea Nitrogen 40 mg/dL (9-16); Calcium 7.9 mg/dL (8.4-10.2); Carbon Dioxide 20 mmol/L (22-29); Chloride 108 mmol/L (96-108); Creatinine Clr Calc Pharmacy 21.4; Estimated Glomerular Filt Rate 21; Glucose Random 250 mg/dL (60-115); Magnesium 1.7 mg/dL (1.6-2.6); Phosphorus 2.8 mg/dL (2.7-4.5); Potassium 4.1 mmol/L (3.3-5.1); Sodium 137 mmol/L (135-145); Total Protein 6.1 g/dL (6.5-8.0)
--- NOTE | 2024-01-12 07:31 | PHA.PROG ---
Admission Date/Time: January 12, 2024 01:47 Indication: Sepsis Weight in k.9 kg Adjusted body weight in Kg: [place] body weight in Kg: Obesity Dosing Indication % IBW: BMI 23.8 Serum Creatinine - Last 168 Hours 01/11/24 01/12/24 01/12/24 18:04 00:23 05:29 Creatinine 3.29 H 2.66 H 2.29 H Estimated CrCl and GFR - Last 168 Hours 01/11/24 01/12/24 01/12/24 18:04 00:23 05:29 Estim Creat Clear Calc 14.9 18.4 21.4 Estimated GFR 14 18 21 Vancomycin Loading Dose: 1000 X1 Current Vancomycin Dosing Regimen: 750mg Q24h Vancomycin Monitoring using AUC goal of 400 - 600 range with trough as surrogate marker: 558 Date and Time for next Vancomycin Level to be drawn: 01/12 @2100 Pharmacist Comments on Vancomycin Plan: renal function is poor, only giving one dose after load before checking level. Vancomycin dosing will take advantage of [employer] as a clinical decision support tool that uses Bayesian modeling to calculate individual patient's pharmacokinetic parameters and forecast the patient's drug concentration time course with the target goal AUC 24 range of 400 - 600 mg/L/hr.
[2024-01-12] MEDS: Calcium Gluconate/NaCl,Iso-Osm 1 GM/50 ML PLAST..BAG IV (08:17)
[2024-01-12] MEDS: 0.9 % Sodium Chloride Flush 3 ML SYRINGE IVFLUSH ×2 (08:17→16:18)
--- NOTE | 2024-01-12 09:05 | PHA.MEDREC ---
Pharmacy Consult ? Medication Reconciliation Pharmacy has reviewed the medication reconciliation completed by nursing. Patient was just here 12/30. During the last visit and this visit we have tried to confirm medications with patient but patient fell asleep during questioning. We have attempted to call and Daughter but both phones were off. We have tried calling her health care proxy Anderson with no luck and left a voicemail. Called [facility] to confirm medication directions. We've confirmed meds through pharmacy claims. Called [facility] to confirm meds, Tresiba 20 units daily, last filled 09/07. Pt was recently prescribed Augmentin 7/2 for 3 days, and Bactrim 7/2 for 6 days, if pt was taking as prescribed, she should have completed them. Pharmacy has not filled Zofran in over a year.
[2024-01-12 09:25] LABS: Glucose, Whole Blood 199 mg/dL (60-115)
[2024-01-12] MEDS: Albumin Human 25 % 100 ML IV ×2 (09:34→14:10)
--- NOTE | 2024-01-12 09:44 | MHC.CM.PN ---
Pt in ICU w/aspiration pna and hypotension. Very lethargic and unable to participate in CM assessment - falls asleep during conversation. Message left for HCP Anderson to call back. Also attempted to contact pt's spouse, Ashwin: no ability to leave a message. Information obtained from EMR notes pt has VNA services - unknown agency. and HCP in chart. CM to await HCP callback or improvement in pt mentation.
[2024-01-12] MEDS: Magnesium Sulfate/D5W 1 GM/100 ML PIGGYBACK IV (10:54)
--- NOTE | 2024-01-12 11:19 | HO.SKINPHOTO ---
Addendum entered by Christine Mittal RN 01/12/24 17:09: Location: left inner thigh Original Note: Location: Right BKA Scar Category: Stage:
[2024-01-12 12:23] LABS: MANUAL DIFF FLAG NO
[2024-01-12 12:27] LABS: Basophils Percent Auto 0.2 % (0-2); Eosinophils Percent Auto 0.3 % (0-4); Hematocrit 21.5 % (37.0-47.0); Imm Gran Abs Auto 0.05 X10*3/uL (0.00-0.03); Imm Gran Pct Auto 0.5 % (0.0-0.4); Lymphocytes Absolute Auto 1.3 X10*3/uL (1.2-4.9); Lymphocytes Percent Auto 11.5 % (20-40); Mean Corpuscular HGB Conc 32.6 g/dl (31.0-35.0); Mean Corpuscular Hemoglobin 28.5 pg (27.0-33.0); Mean Corpuscular Volume 87.4 fL (80.0-98.0); Mean Platelet Volume 11.1 fL (9.4-12.3); Monocytes Absolute Auto 0.6 X10*3/uL (0.1-1.2); Monocytes Percent Auto 5.1 % (2-11); Neutrophils Absolute Auto 9.1 x10*3/uL (2.0-8.3); Neutrophils Percent Auto 82.4 % (45-73); Platelet Count 209 X10*3/uL (160-400); Red Blood Count 2.46 X10*6/uL (4.20-5.50); Red Cell Distribution Width 16.7 % (11.0-16.0); White Blood Count 11.1 X10*3/uL (4.8-10.8)
[2024-01-12 12:38] LABS: Anion Gap 13 (12-20); Blood Urea Nitrogen 33 mg/dL (9-16); Calcium 8.4 mg/dL (8.4-10.2); Carbon Dioxide 23 mmol/L (22-29); Chloride 108 mmol/L (96-108); Creatinine Clr Calc Pharmacy 24.5; Estimated Glomerular Filt Rate 25; Glucose Random 217 mg/dL (60-115); Magnesium 1.9 mg/dL (1.6-2.6); Phosphorus 2.7 mg/dL (2.7-4.5); Sodium 140 mmol/L (135-145)
--- NOTE | 2024-01-12 15:39 | HO.WOUND ---
Wound Consult: Initial 64yr old [place] [facility] [place] See progress notes and H&P for detailed history.? Wound consult placed for Right Knee traumatic injury after fall at home.? Patient agreeable to assessment and photo documentation.? Chart review revelas patient was seen by this sign writer hand and revealed the wound is secondary to a fall. Patient reports she was getting ready to come to hospital during previous admission for scheduled I&D and fell without her prosthetic in place on her tile floor. Advised to contact her prosthetic tech to ensure proper fit. 10/2023 Todays assessment 01/12/24 Right BKA Site Etiology: Traumatic injury s/p fall at home ??Present on Admission Measurements: 1cm x 0.4cm x 0.2cm Wound Bed: pale pink yellow wound bed - moist Drainage / Odor: yellow drainage no odor noted Edges: ? irregular Heidy wound:Intact No Induration, Fluctuance or Warmth noted Pain: tender to touch Goals of Treatment: ? Moisture management with Durafiber AG and Foam dressing Recommendations: 1. Turn and Reposition every 2 hours and as needed for patient comfort.? Use pillows or wedges to support off loading positions. 2. Off Load all bony prominences with use of pillows and heel boots if needed.? Apply Preventative foams where needed. ? 3. Monitor for incontinence and moisture control, use barrier creams when needed for prevention and treatment. 4. Provide adequate and supplemental nutrition.? 5.When applicable maintain blood glucose levels per Providers order. 6. Right BKA site - Cleanse with NS moist gauze, pat dry. Apply Skin prep to periwound allow to dry cut to size Durafiber AG cover with foam dressing, Change every 2-3 days. Re-consult wound care Nurse for wound deterioration or wound changes.
[2024-01-12] MEDS: Furosemide 20 MG/2 ML VIAL 10 MG IVPUSH (16:17)
[2024-01-12 18:04] LABS: Glucose, Whole Blood 154 mg/dL (60-115)
[2024-01-12 19:34] LABS: Basophils Percent Auto 0.3 % (0-2); Eosinophils Percent Auto 0.2 % (0-4); Imm Gran Pct Auto 0.6 % (0.0-0.4); Lymphocytes Absolute Auto 1.2 X10*3/uL (1.2-4.9); Lymphocytes Percent Auto 7.7 % (20-40); MANUAL DIFF FLAG SCAN; Mean Corpuscular HGB Conc 33.3 g/dl (31.0-35.0); Mean Corpuscular Hemoglobin 28.8 pg (27.0-33.0); Mean Corpuscular Volume 86.5 fL (80.0-98.0); Mean Platelet Volume 11.4 fL (9.4-12.3); Monocytes Absolute Auto 0.8 X10*3/uL (0.1-1.2); Neutrophils Absolute Auto 13.7 x10*3/uL (2.0-8.3); Neutrophils Percent Auto 86.2 % (45-73); PLT CLUMP 1; Red Blood Count 3.12 X10*6/uL (4.20-5.50); Red Cell Distribution Width 16.8 % (11.0-16.0); SCAN SMEAR FLAG 1
[2024-01-12 19:57] LABS: Platelet Count 193 X10*3/uL (160-400); SLIDE REVIEW VERIFIED; White Blood Count 15.9 X10*3/uL (4.8-10.8)
[2024-01-12 20:29] LABS: Glucose, Whole Blood 147 mg/dL (60-115)
[2024-01-13] VITALS (9 sets, daily range): BP systolic 103–161; BP diastolic 46–82; PULSE 53–81; RESP 16–23; TEMP 36.4–37.1; O2SAT 94–99
[2024-01-13] MEDS: 0.9 % Sodium Chloride Flush 3 ML SYRINGE IVFLUSH ×4 (00:12→23:57)
[2024-01-13] MEDS: vancomycin HCL 750 MG in 0.9 % Sodium Chloride 250 ML 265 MG IV ×2 (00:12→22:35)
[2024-01-13] MEDS: Piperacillin Sodium/Tazobactam 4.5 GM in 0.9 % Sodium Chloride 100 ML IV ×3 (01:16→17:03)
[2024-01-13] MEDS: Heparin Sodium,Porcine 5,000 UNIT/ML VIAL 5000 UNIT SUBCUT ×3 (05:14→22:34)
[2024-01-13 05:43] LABS: Glucose, Whole Blood 119 mg/dL (60-115)
[2024-01-13 06:38] LABS: MANUAL DIFF FLAG NO
[2024-01-13 06:45] LABS: Basophils Percent Auto 0.2 % (0-2); Eosinophils Percent Auto 0.4 % (0-4); Hematocrit 27.4 % (37.0-47.0); Hemoglobin 9.1 g/dl (12.0-16.0); Imm Gran Abs Auto 0.06 X10*3/uL (0.00-0.03); Imm Gran Pct Auto 0.5 % (0.0-0.4); Lymphocytes Absolute Auto 1.4 X10*3/uL (1.2-4.9); Lymphocytes Percent Auto 12.4 % (20-40); Mean Corpuscular HGB Conc 33.2 g/dl (31.0-35.0); Mean Corpuscular Hemoglobin 29.4 pg (27.0-33.0); Mean Corpuscular Volume 88.4 fL (80.0-98.0); Mean Platelet Volume 11.1 fL (9.4-12.3); Monocytes Absolute Auto 0.6 X10*3/uL (0.1-1.2); Monocytes Percent Auto 5.4 % (2-11); Neutrophils Absolute Auto 9.2 x10*3/uL (2.0-8.3); Neutrophils Percent Auto 81.1 % (45-73); Platelet Count 208 X10*3/uL (160-400); Red Cell Distribution Width 16.6 % (11.0-16.0); White Blood Count 11.4 X10*3/uL (4.8-10.8)
[2024-01-13 07:01] LABS: Anion Gap 13 (12-20); Blood Urea Nitrogen 24 mg/dL (9-16); Calcium 8.8 mg/dL (8.4-10.2); Carbon Dioxide 25 mmol/L (22-29); Chloride 106 mmol/L (96-108); Creatinine Clr Calc Pharmacy 29.2; Estimated Glomerular Filt Rate 31; Glucose Random 126 mg/dL (60-115); Magnesium 1.6 mg/dL (1.6-2.6); Phosphorus 2.1 mg/dL (2.7-4.5); Potassium 4.2 mmol/L (3.3-5.1); Sodium 140 mmol/L (135-145)
--- NOTE | 2024-01-13 07:42 | HO.PM.IMPN ---
Subjective Subjective Date of Service: 01/13/24 Interval History: f/u on septic shock from PNA, complicated acute hypoxic respriatory failure and required vasopressors in the ICU overall better, no longer hypotensive, and no sob Physical Exam Vital Signs: Vital Signs: Last Vital Signs Temp 97.8 F 01/13/24 03:53 Pulse 57 01/13/24 03:53 Resp 22 H 01/13/24 03:53 BP 143/64 H 01/13/24 03:53 Pulse Ox 98 01/13/24 03:53 O2 Del Method Nasal Cannula 01/13/24 03:53 O2 Flow Rate 3 01/12/24 19:41 Oxygen Flow Rate 2 01/12/24 01:47 BMI result Body Mass Index 23.8 Const: Other: Gen: Awake alert x3, in no acute distress Lungs: Coarse breath sounds bilaterally with few expiratory rhonchi Heart: regular rate and rhythm, no murmurs Abd: soft, non-tender, non-distended, bowel sounds audible Ext: s/p R BKA, stump ok Skin: warm/well-perfused Neuro: alert and oriented x3, no focal findings Psych: appropriate affect Objective Data Active Medications Albuterol Sulfate (Albuterol Sulfate 90 Mcg 8 Gm Inhaler) 2 puff INHALE Q4H PRN PRN Reason: Respiratory Distress Amlodipine Besylate (Amlodipine Besylate 10 Mg Tablet) 10 mg PO DAILY [facility], [facility]; Protocol Aspirin (Aspirin Enteric Coated 81 Mg Tablet.Dr) 81 mg PO DAILY [facility] Atorvastatin Calcium (Atorvastatin Calcium 40 Mg Tablet) 40 mg PO DAILY [facility] Gabapentin (Gabapentin 600 Mg Tablet) 600 mg PO TID [facility] Glucose (Glucose Gel 15 Gm Gel..Gram.) 15 gm PO Q15M PRN; Protocol PRN Reason: per Hypoglycemia Standing Ord. Heparin Sodium (Porcine) (Heparin Sodium,Porcine 5,000 Unit/Ml Vial) 5,000 unit SUBCUT Q8H [facility]1983 Last Admin: 01/13/24 05:14 Dose: 5,000 unit Documented By: ANTOIC Dextrose (D10) 250 mls @ 750 mls/hr IV Q15M PRN PRN Reason: per Hypoglycemia Standing Ord. Last Infusion: 01/11/24 18:27 Dose: Infused Documented By: KENNEY Piperacillin Sod/Tazobactam (Sod 4.5 gm/ Sodium Chloride) 100 mls @ 200 mls/hr IV Q8H [facility] Last Infusion: 01/13/24 01:52 Dose: Infused Documented By: ANTOIC Vancomycin HCl 750 mg/ Sodium (Chloride) 265 mls @ 265 mls/hr IV Q24H [facility] Last Infusion: 01/13/24 01:16 Dose: Infused Documented By: ANTOIC Dextrose (D10) 250 mls @ 750 mls/hr IV Q15M PRN; Protocol PRN Reason: per Hypoglycemia Standing Ord. Insulin Human Lispro (Insulin Lispro 100 Unit/Ml 3 Ml Vial) 0 unit SUBCUT QIDACHS [facility]; Protocol Methadone HCl (Methadone Hcl 20 Mg/2 Ml Oral.Conc) 130 mg PO DAILY [facility] Metoprolol Succinate (Metoprolol Succinate Er 25 Mg Tab.Er.24h) 25 mg PO DAILY [facility]; Protocol Mirtazapine (Mirtazapine 7.5 Mg Tablet) 7.5 mg PO BEDTIME [facility] Nicotine (Nicotine 14 Mg Patch.Td24) 14 mg TRANSDERMA DAILY [facility]1983 Non-Formulary Medication (Bupropion Hcl) 150 mg PO BID [facility]1983 Non-Formulary Medication (Fluticasone Furoate [Arnuity Ellipta]) 1 inhalation INHALE DAILY [facility] Omeprazole (Omeprazole 20 Mg Capsule.Dr) 20 mg PO DAILY@0630 [facility]1983 Pharmacy Consult (Consult Rx Vancomycin Dosing) 1 each MISCELLANE DAILY PRN PRN Reason: Consult order Sodium Chloride (0.9 % Sodium Chloride Flush 3 Ml Syringe) 3 ml IVFLUSH QSHIFT [facility] Last Admin: 01/13/24 07:34 Dose: 3 ml Documented By: ANA Zolpidem Tartrate (Zolpidem Tartrate 5 Mg Tablet) 10 mg PO BEDTIME PRN PRN Reason: Sleep Labs 01/13/24 06:00 01/13/24 06:00 Labs: Laboratory Results - last 24 hr 01/12/24 01/12/24 01/12/24 08:05 09:22 12:03 MCV 87.4 MCH 28.5 MCHC 32.6 RDW 16.7 H Plt Count 209 MPV 11.1 Immature Gran % (Auto) 0.5 H Neut % (Auto) 82.4 H Lymph % (Auto) 11.5 L Nicholas % (Auto) 5.1 Eos % (Auto) 0.3 Baso % (Auto) 0.2 Lymph # (Auto) 1.3 Nicholas # (Auto) 0.6 Eos # (Auto) 0.0 Baso # (Auto) 0.0 Abs Immat Gran (auto) 0.05 H Absolute Neuts (auto) 9.1 H Absolute Nucleated RBC 0.000 Nucleated RBC % (auto) 0.0 Smear Tech's Comments Anion Gap 13 Estim Creat Clear Calc 24.5 Estimated GFR 25 POC Glucose 199 H Random Glucose 217 H Calcium 8.4 D Phosphorus 2.7 Magnesium 1.9 Blood Type O Positive Antibody Screen NEGATIVE Crossmatch See Detail 01/12/24 01/12/24 01/12/24 18:00 19:10 20:19 MCV 86.5 MCH 28.8 MCHC 33.3 RDW 16.8 H Plt Count 193 MPV 11.4 Immature Gran % (Auto) 0.6 H Neut % (Auto) 86.2 H Lymph % (Auto) 7.7 L Nicholas % (Auto) 5.0 Eos % (Auto) 0.2 Baso % (Auto) 0.3 Lymph # (Auto) 1.2 Nicholas # (Auto) 0.8 Eos # (Auto) 0.0 Baso # (Auto) 0.0 Abs Immat Gran (auto) 0.10 H Absolute Neuts (auto) 13.7 H Absolute Nucleated RBC 0.000 Nucleated RBC % (auto) 0.0 Smear Tech's Comments VERIFIED Anion Gap Estim Creat Clear Calc Estimated GFR POC Glucose 154 H 147 H Random Glucose Calcium Phosphorus Magnesium Blood Type Antibody Screen Crossmatch 01/13/24 01/13/24 05:39 06:00 MCV 88.4 MCH 29.4 MCHC 33.2 RDW 16.6 H Plt Count 208 MPV 11.1 Immature Gran % (Auto) 0.5 H Neut % (Auto) 81.1 H Lymph % (Auto) 12.4 L Nicholas % (Auto) 5.4 Eos % (Auto) 0.4 Baso % (Auto) 0.2 Lymph # (Auto) 1.4 Nicholas # (Auto) 0.6 Eos # (Auto) 0.0 Baso # (Auto) 0.0 Abs Immat Gran (auto) 0.06 H Absolute Neuts (auto) 9.2 H Absolute Nucleated RBC 0.000 Nucleated RBC % (auto) 0.0 Smear Tech's Comments Anion Gap 13 Estim Creat Clear Calc 29.2 Estimated GFR 31 POC Glucose 119 H Random Glucose 126 H Calcium 8.8 Phosphorus 2.1 L Magnesium 1.6 Blood Type Antibody Screen Crossmatch Microbiology Microbiology Results: Microbiology 01/11/24 18:22 Blood Culture - Preliminary Blood - Venous No growth after 24 hours. 01/11/24 18:05 Blood Culture - Preliminary Blood - Venous No growth after 24 hours. 01/11/24 18:04 Urine Culture - Preliminary Urine Catheterized - Straight Catheter Culture too young to evaluate. Assessment and Plan (1) Septic shock: Status: Acute (2) Metabolic encephalopathy: Status: Acute (3) Aspiration pneumonia: Status: Acute Plan 63 y/o opioid dependence, DM, HTN, HLD, recent hospitalization (12/30 to 01/03) for inflamatory PNA/copd exacerbation and acute hypoxic respiratory failure, unclear if she took Farideh. She was admitted through the ICU with acute hypoxic respiratory failure and septic shock presumed to be related to aspiration pneumonia Acute hypoxic respiratory failure d/t PNA, possibly aspiration type--hypoxia resolved -treat underlying PNA Septic shock d/t aspiration pneumonia steming from drug use, shock resolved. -continue IV Zosyn and Vanco, DC Vanco given no MRSA Metabolic encephalopathy--due to above, and drugs--resolved Acute kidney injury, likely early ATN from septic shock, resolved, back to baseline CKD ( baseline not well established) -Nephro consult Type 2 diabetes mellitus, with hypoglycemia now resolved. -hold Lantus, restart if sugar going up and Metformin (should be avoded d/t CKD) -SSI - diabetic diet - A1C = 7 Substance use disorder/opioid dependence (+cocain, fentanyl, methadone) -continue Methadone -addiction med consult -counceled on cessation. HLD--continue Lipitor HTN--septic shock and hypotension resolved -restart Norvasc 10, Toprol 25.. Hold Lisinopril 20 Tobacco smoking. Counseled, NRT DVT prophylaxis: Heparin Code status: Full Need for inatient: management for severe sepsis, septic shock needing needing vasopressors and now on broad spec Abx Quality Stroke Does the patient have a stroke diagnosis?: No VTE Prior VTE?: No VTE Risk Level:: Medical - moderate - high VTE Device Contraindication: N/A - Device Ordered VTE Drug Contraindication: N/A - Med Ordered
[2024-01-13] MEDS: Nicotine 14 MG PATCH.TD24 TRANSDERMA (08:14)
[2024-01-13] MEDS: Gabapentin 600 MG TABLET PO ×3 (08:15→20:17)
[2024-01-13] MEDS: Metoprolol Succinate ER 25 MG TAB.ER.24H PO (08:15)
[2024-01-13] MEDS: buPROPion HCl XL 300 MG TAB.ER.24H PO (08:15)
[2024-01-13] MEDS: Aspirin Enteric Coated 81 MG TABLET.DR PO (08:15)
[2024-01-13] MEDS: amLODIPine Besylate 10 MG TABLET PO (08:15)
[2024-01-13] MEDS: Atorvastatin Calcium 40 MG TABLET PO (08:15)
--- NOTE | 2024-01-13 08:28 | MHC.CM.PN ---
IMM 01/13/24, pt lives with her son, Anderson, he is her HCP. She receives home care services of daily visits to give her Methadone, from [facility]. she was DC's from this [facility] on 01/04/24, and [facility] was planning to add service of OT, they had not started this yet. Pt said she had been at [facility] in the Spring, and that had gone well for her. PCP is Dr. Herring. DCP: home with current VNA services, CM to follow for DC needs.
--- NOTE | 2024-01-13 08:37 | HE.PHANOTE ---
METHADONE Patient receives from [facility] ([phone]). Per Willa at facility states pt receives 130mg, pt given take home bottles on 01/05. Pt states she last took take home bottle on 01/11/24.
[2024-01-13 08:52] LABS: Estimated Average Glucose 169 mg/dL; Hemoglobin A1c % 7.5 % (<6.0)
[2024-01-13] MEDS: methADONE HCl 20 MG/2 ML ORAL.CONC 130 MG PO (09:24)
--- NOTE | 2024-01-13 10:37 | ECG_ITS ---
Test Reason : QTC MONITORING Blood Pressure : / mmHG Vent. Rate : 076 BPM Atrial Rate : 076 BPM P-R Int : 138 ms QRS Dur : 084 ms QT Int : 432 ms P-R-T Axes : 045 020 011 degrees QTc Int : 486 ms Normal sinus rhythm Nonspecific ST abnormality Abnormal ECG When compared with ECG of 12-JAN-2024 12:20, No significant change was found Referred By: Daniella Sotelo Electronically Signed By:Omid De Guzman
[2024-01-13 10:56] LABS: Glucose, Whole Blood 300 mg/dL (60-115)
[2024-01-13] MEDS: Insulin Lispro 100 UNIT/ML 3 ML VIAL SUBCUT ×3 (11:21→20:17)
[2024-01-13] MEDS: Fluticasone Propionate 100 MCG BLST.W.DEV 1 PUFF INHALE ×2 (11:51→19:15)
--- NOTE | 2024-01-13 14:58 | MHC.SL.SWA ---
Dysphasia Diet Status: DOWNGRADE solids Liquid Consistency and Strategies for Safe Swallow: Liquid Intake Recommendation: Thin Solid Food Consistency: Dietary Recommendations: Chopped/Advanced (NDD3) Oral Medication Intake: Whole with Liquid Please contact the pharmacy regarding appropriate crushable or liquid drug formulations that are available whenever modified delivery is recommended. Compensatory Strategies and Precautions to be Taken for Safe Swallow: Sitting Upright (90 deg) Small Bites and Sips Rate of Ingestion Change Supervision While Eating and Drinking for Safe Swallow: Intermittent Supervision Recommendation for Speech: Inpatient Speech Therapy Comment: Recommend DOWNGRADE solids to CHOPPED/ADVANCED (NDD3) d/t prolonged mastication on solids in edentulous state. Recommend pt continue w/ thin liquids and pills whole w/ liquid. SALES FLOOR MANAGER to f/u 1-2x. Frequency/Duration: 1-2x [employer] Developer Clinican/Clinical Fellow: No Supervisory Statement: I have reviewed and agree with the student/clinical fellow's documentation: N/A Speech Language Pathologist: Maryjane Atwood M.A., CCC-SALES FLOOR MANAGER
--- NOTE | 2024-01-13 15:47 | PM.CNNEP ---
History of Present Illness Reason for Consult Consult date: 01/13/24 Reason for consult: CKD Chief Complaint Chief complaint: sepsis/ hypotension History of Present Illness Narrative: 63 years old woman with a h/o constipation, dyslipidemia, PE on Xarelto, COPD on home oxygen, type 2 diabetes mellitus on insulin, drug use on methadone and ongoing tobacco smoking Consult requested for CKD Baseline creatinine < 1 Sustained AUBRIE with creatinine of 3.0 and now trending down Review of Systems Review of Systems Yes Unobtainable due to mental status PMFSH Past Medical History Medical History Diabetic osteomyelitis Below-knee amputation of right lower extremity Osteomyelitis of ankle Charcot foot due to diabetes mellitus Acute hyperglycemia Cellulitis Gastroenteritis Gastritis Constipation Diabetic foot ulcer New onset of congestive heart failure DKA (diabetic ketoacidoses) COVID-19 Dyslipidemia Glaucoma Pulmonary emboli Depression Chronic prescription opiate use Diabetes mellitus Pulmonary nodule Tobacco dependence COPD (chronic obstructive pulmonary disease) Family History Family History Other CVA (cerebral vascular accident) Surgical History Surgical History History of below-knee amputation of right lower extremity (01/13/22) Cataract extraction status, right eye Cataract extraction status, left eye Hx of cholecystectomy Social History Social History Household Members: Unknown / Unable to assess Housing: Unknown / Unable to assess Housing Other:: hotel Do you presently have visiting nurse or other home services: Yes Unable to assess alcohol history related to: Unknown Alcohol intake: never Comment: refused telesitter Patient Tobacco Use Status: Tobacco use Unknown Tobacco use type: Cigarette Cigarette Packs Per Day: 0.3 Cigarettes Per Day: 6.0 Years Smoked: 50 e-Cigarette/Vaping Use: Currently Using Second Hand Smoke Exposure: No Use of substances other than those prescribed or required for medical reasons: Unable to respond Substance Use Type: Former Substance User Last Used Substance: Just Prior to Admission Currently Displaying Signs/Symptoms of Drug Intoxication Withdrawal: No Advance Directives: Yes Advance Directives on File: Yes Advance Directives Date on File: 10/20/23 Recently lost weight without trying: Unsure Patient : No service: No Current occupational status: disabled [employer] Allergies Allergy/AdvReac Type Severity Reaction Status Date / Time No Known Allergies Allergy Verified 01/11/24 16:30 Active Medications: Current Medications Albuterol Sulfate (Albuterol Sulfate 90 Mcg 8 Gm Inhaler) 2 puff INHALE Q4H PRN PRN Reason: Respiratory Distress Amlodipine Besylate (Amlodipine Besylate 10 Mg Tablet) 10 mg PO DAILY [facility]; Protocol Last Admin: 01/13/24 08:15 Dose: 10 mg Aspirin (Aspirin Enteric Coated 81 Mg Tablet.Dr) 81 mg PO DAILY [facility] Last Admin: 01/13/24 08:15 Dose: 81 mg Atorvastatin Calcium (Atorvastatin Calcium 40 Mg Tablet) 40 mg PO DAILY [facility] Last Admin: 01/13/24 08:15 Dose: 40 mg Bupropion HCl (Bupropion Hcl Xl 300 Mg Tab.Er.24h) 300 mg PO DAILY [facility] Last Admin: 01/13/24 08:15 Dose: 300 mg Fluticasone Propionate (Fluticasone Propionate 100 Mcg Blst.W.Dev) 1 puff INHALE RBID [facility] Last Admin: 01/13/24 11:51 Dose: 1 puff Gabapentin (Gabapentin 600 Mg Tablet) 600 mg PO TID [facility] Last Admin: 01/13/24 14:51 Dose: 600 mg Glucose (Glucose Gel 15 Gm Gel..Gram.) 15 gm PO Q15M PRN; Protocol PRN Reason: per Hypoglycemia Standing Ord. Heparin Sodium (Porcine) (Heparin Sodium,Porcine 5,000 Unit/Ml Vial) 5,000 unit SUBCUT Q8H [facility] Last Admin: 01/13/24 14:51 Dose: 5,000 unit Dextrose (D10) 250 mls @ 750 mls/hr IV Q15M PRN PRN Reason: per Hypoglycemia Standing Ord. Last Infusion: 01/11/24 18:27 Dose: Infused Piperacillin Sod/Tazobactam (Sod 4.5 gm/ Sodium Chloride) 100 mls @ 200 mls/hr IV Q8H [facility] Last Infusion: 01/13/24 10:11 Dose: Infused Vancomycin HCl 750 mg/ Sodium (Chloride) 265 mls @ 265 mls/hr IV Q24H [facility] Last Infusion: 01/13/24 01:16 Dose: Infused Dextrose (D10) 250 mls @ 750 mls/hr IV Q15M PRN; Protocol PRN Reason: per Hypoglycemia Standing Ord. Insulin Human Lispro (Insulin Lispro 100 Unit/Ml 3 Ml Vial) 0 unit SUBCUT QIDACHS [facility]; Protocol Last Admin: 01/13/24 11:21 Dose: 6 unit Methadone HCl (Methadone Hcl 20 Mg/2 Ml Oral.Conc) 130 mg PO DAILY [facility] Last Admin: 01/13/24 09:24 Dose: 130 mg Metoprolol Succinate (Metoprolol Succinate Er 25 Mg Tab.Er.24h) 25 mg PO DAILY [facility]; Protocol Last Admin: 01/13/24 08:15 Dose: 25 mg Mirtazapine (Mirtazapine 7.5 Mg Tablet) 7.5 mg PO BEDTIME [facility] Nicotine (Nicotine 14 Mg Patch.Td24) 14 mg TRANSDERMA DAILY [facility] Last Admin: 01/13/24 08:14 Dose: 14 mg Omeprazole (Omeprazole 20 Mg Capsule.Dr) 20 mg PO DAILY@0630 [facility] Pharmacy Consult (Consult Rx Vancomycin Dosing) 1 each MISCELLANE DAILY PRN PRN Reason: Consult order Sodium Chloride (0.9 % Sodium Chloride Flush 3 Ml Syringe) 3 ml IVFLUSH QSHIFT [facility] Last Admin: 01/13/24 14:51 Dose: 3 ml Zolpidem Tartrate (Zolpidem Tartrate 5 Mg Tablet) 10 mg PO BEDTIME PRN PRN Reason: Sleep Home Medications ?Medication ?Instructions ?Recorded ?Confirmed ?Last Taken ?Type albuterol sulfate 90 mcg/actuation 2 puff PO Q4H PRN Respiratory 04/24/20 01/12/24 10/12/23 History aerosol inhaler Distress aspirin 81 mg tablet,delayed 81 mg PO DAILY 04/24/20 01/12/24 12/29/23 History release atorvastatin 40 mg tablet 40 mg PO DAILY 04/24/20 01/12/24 12/29/23 History bupropion HCl 150 mg tablet,12 hr 150 mg PO BID 04/24/20 01/12/24 12/29/23 History sustained-release lancets 33 gauge #100 ea 04/24/20 01/12/24 10/12/23 History metformin 1,000 mg tablet 1,000 mg PO BIDWM 04/24/20 01/12/24 12/29/23 History omeprazole 20 mg capsule,delayed 20 mg PO DAILY@0630 04/24/20 01/12/24 12/29/23 History release gabapentin 600 mg tablet 600 mg PO TID 05/03/20 01/12/24 12/29/23 History insulin degludec 100 unit/mL (3 20 unit subcut BEDTIME 10/13/23 01/12/24 12/29/23 History mL) subcutaneous pen (Tresiba FlexTouch U-100 insulin) acetaminophen 325 mg capsule 325 mg PO QID PRN Pain 11/02/23 01/12/24 Unknown History insulin aspart (niacinamide) 0 sliding scale dose subcut 12/31/23 01/12/24 12/29/23 History (U-100) 100 unit/mL subcutaneous USEASDIRECTD solution (Fiasp U-100 Insulin) metoprolol succinate 25 mg 25 mg PO DAILY 12/31/23 01/12/24 12/29/23 History tablet,extended release 24 hr mirtazapine 7.5 mg tablet 7.5 mg PO BEDTIME 12/31/23 01/12/24 12/29/23 History fluticasone furoate 100 1 inh inhalation DAILY 01/01/24 01/12/24 12/29/23 History mcg/actuation blister powder for inhalation (Arnuity Ellipta) methadone 10 mg/mL oral concentrate 130 mg PO DAILY 01/01/24 01/12/24 12/30/23 History sulfamethoxazole 800 1 tab PO MOWEFR 01/01/24 01/12/24 12/29/23 History mg-trimethoprim 160 mg tablet (Bactrim DS) zolpidem 10 mg tablet 10 mg PO BEDTIME PRN Sleep 01/01/24 01/12/24 Unknown History Physical Exam Vital Signs: Last Vital Signs Temp 98.4 F 01/13/24 11:24 Pulse 80 01/13/24 11:52 Resp 16 01/13/24 11:52 BP 120/56 L 01/13/24 11:24 Pulse Ox 96 01/13/24 11:24 O2 Del Method Nasal Cannula 01/13/24 11:24 O2 Flow Rate 3 01/13/24 11:24 Oxygen Flow Rate 2 01/12/24 01:47 BMI result Body Mass Index 23.8 Const General: ill appearing Neck Neck: Yes supple Resp Auscultation: clear to auscultation bilaterally Cardio Palpation: no palpable S3 Heart sounds: no rubs GI Palpation (GI): Soft to palpation Auscultation: normal bowel sounds Neuro Motor exam (neuro): no asterixis Results Lab Results 01/13/24 06:00 01/13/24 06:00 Lab results: Chemistry 01/11/24 01/12/24 01/12/24 18:04 00:23 05:29 Sodium 135 134 L 137 Potassium 4.7 4.3 4.1 Carbon Dioxide 20 L 21 L 20 L BUN 54 H 47 H 40 H Creatinine 3.29 H 2.66 H 2.29 H Calcium 9.1 7.5 L D 7.9 L Phosphorus 2.8 01/12/24 01/13/24 12:03 06:00 Sodium 140 140 Potassium 4.0 4.2 Carbon Dioxide 23 25 BUN 33 H 24 H Creatinine 2.00 H 1.68 H Calcium 8.4 D 8.8 Phosphorus 2.7 2.1 L Hematology 01/11/24 01/12/24 01/12/24 17:23 05:29 12:03 WBC 23.0 H 14.7 H 11.1 H Hgb 9.5 L 7.1 L D 7.0 L* Plt Count 358 231 D 209 01/12/24 01/13/24 19:10 06:00 WBC 15.9 H 11.4 H Hgb 9.0 L D 9.1 L Plt Count 193 208 Urinalysis 01/11/24 18:04 Urine Color Yellow Urine Appearance Cloudy Urine pH 5.0 Ur Specific [place] 1.020 Urine Protein 30 (1+) H Urine Glucose (UA) 250 H Urine Ketones Trace Urine Blood Negative Urine Nitrite Negative Ur Leukocyte Esterase Small (1+) H Urine RBC 0-2 Urine WBC 0-5 Ur Squamous Epith Cells 3-5 Hyaline Casts 3-5 Assessment and Plan (1) Acute kidney injury: Status: Resolved Plan AUBRIE most likely due to TUbular injury from ischemic /Low BP Renal function is improving Suggest Urine Na/CR/Pro and UA Hold ACEi Avoid hypotension Watch UO Avoid nephrotoxins /Vanco No indication for dialysis Procedures Date of Service Date of Service: 01/13/24
[2024-01-13 16:31] LABS: Glucose, Whole Blood 176 mg/dL (60-115)
[2024-01-13 19:48] LABS: Glucose, Whole Blood 195 mg/dL (60-115)
[2024-01-13] MEDS: Mirtazapine 7.5 MG TABLET PO (20:17)
[2024-01-13 21:26] LABS: Vancomycin Random 13.9 mcg/mL (15-20)
[2024-01-14] VITALS (8 sets, daily range): BP systolic 100–149; BP diastolic 52–69; PULSE 52–60; RESP 18–20; TEMP 36–37; O2SAT 94–99; BMI 22.0
[2024-01-14 00:29] LABS: Glucose, Whole Blood 319 mg/dL (60-115)
[2024-01-14] MEDS: Zolpidem Tartrate 5 MG TABLET 10 MG PO ×2 (00:55→22:40)
[2024-01-14] MEDS: Piperacillin Sodium/Tazobactam 4.5 GM in 0.9 % Sodium Chloride 100 ML IV ×3 (02:31→17:14)
[2024-01-14] MEDS: Heparin Sodium,Porcine 5,000 UNIT/ML VIAL 5000 UNIT SUBCUT ×3 (05:45→21:11)
[2024-01-14] MEDS: Omeprazole 20 MG CAPSULE.DR PO (05:46)
[2024-01-14 06:08] LABS: Glucose, Whole Blood 300 mg/dL (60-115)
[2024-01-14 06:36] LABS: MANUAL DIFF FLAG NO
[2024-01-14 07:03] LABS: Basophils Percent Auto 0.3 % (0-2); Eosinophils Absolute Auto 0.1 X10*3/uL (0.0-0.4); Hematocrit 26.8 % (37.0-47.0); Hemoglobin 8.8 g/dl (12.0-16.0); Imm Gran Abs Auto 0.04 X10*3/uL (0.00-0.03); Imm Gran Pct Auto 0.6 % (0.0-0.4); Lymphocytes Absolute Auto 1.6 X10*3/uL (1.2-4.9); Lymphocytes Percent Auto 22.1 % (20-40); Mean Corpuscular HGB Conc 32.8 g/dl (31.0-35.0); Mean Corpuscular Hemoglobin 29.1 pg (27.0-33.0); Mean Corpuscular Volume 88.7 fL (80.0-98.0); Mean Platelet Volume 10.9 fL (9.4-12.3); Monocytes Absolute Auto 0.5 X10*3/uL (0.1-1.2); Neutrophils Absolute Auto 4.9 x10*3/uL (2.0-8.3); Platelet Count 207 X10*3/uL (160-400); Red Blood Count 3.02 X10*6/uL (4.20-5.50); Red Cell Distribution Width 16.5 % (11.0-16.0); White Blood Count 7.1 X10*3/uL (4.8-10.8)
[2024-01-14 07:06] LABS: Anion Gap 13 (12-20); Blood Urea Nitrogen 18 mg/dL (9-16); Calcium 8.8 mg/dL (8.4-10.2); Carbon Dioxide 24 mmol/L (22-29); Chloride 105 mmol/L (96-108); Creatinine Clr Calc Pharmacy 32.9; Estimated Glomerular Filt Rate 35; Glucose Random 315 mg/dL (60-115); Phosphorus 2.9 mg/dL (2.7-4.5); Potassium 3.8 mmol/L (3.3-5.1); Sodium 138 mmol/L (135-145)
[2024-01-14 07:20] LABS: Glucose, Whole Blood 280 mg/dL (60-115)
[2024-01-14 07:35] LABS: Magnesium 1.4 mg/dL (1.6-2.6)
[2024-01-14] MEDS: Fluticasone Propionate 100 MCG BLST.W.DEV 1 PUFF INHALE ×2 (08:16→20:41)
[2024-01-14] MEDS: Insulin Lispro 100 UNIT/ML 3 ML VIAL SUBCUT ×4 (08:51→21:11)
[2024-01-14] MEDS: Atorvastatin Calcium 40 MG TABLET PO (08:52)
[2024-01-14] MEDS: buPROPion HCl XL 300 MG TAB.ER.24H PO (08:53)
[2024-01-14] MEDS: amLODIPine Besylate 10 MG TABLET PO (08:53)
[2024-01-14] MEDS: Aspirin Enteric Coated 81 MG TABLET.DR PO (08:53)
[2024-01-14] MEDS: Metoprolol Succinate ER 25 MG TAB.ER.24H PO (08:53)
[2024-01-14] MEDS: Gabapentin 600 MG TABLET PO ×3 (08:53→21:11)
[2024-01-14] MEDS: 0.9 % Sodium Chloride Flush 3 ML SYRINGE IVFLUSH ×3 (08:54→21:12)
[2024-01-14] MEDS: Nicotine 14 MG PATCH.TD24 TRANSDERMA (08:54)
[2024-01-14] MEDS: methADONE HCl 20 MG/2 ML ORAL.CONC 130 MG PO (08:55)
--- NOTE | 2024-01-14 09:42 | MHC.SL.SWA ---
Speech Pathologist Impression: Risk of Aspiration Due to: Dysphasia Diet Status: Recommend continue on Chopped Advanced with thin liquids, pills whole with liquid. Liquid Consistency and Strategies for Safe Swallow: Liquid Intake Recommendation: Thin Liquid Intake Strategies: Solid Food Consistency: Dietary Recommendations: Chopped/Advanced (NDD3) Additional Modifications to Solid Foods: Oral Medication Intake: Whole with Liquid Please contact the pharmacy regarding appropriate crushable or liquid drug formulations that are available whenever modified delivery is recommended. Compensatory Strategies and Precautions to be Taken for Safe Swallow: Sitting Upright (90 deg) Small Bites and Sips Rate of Ingestion Change Supervision While Eating and Drinking for Safe Swallow: Intermittent Supervision Foods to Avoid: Swallowing Recommended Treatments: Recommendation for Speech: Inpatient Speech Therapy Comment: Patient was seen at conclusion of breakfast. Communicating in Latvian, Patient reported that she had eaten everything and found the food to be delicious. Patient was observed taking sips of coffee, evidencing timely oral phase and timely swallow, no clinical signs of aspiration. Patient appears to be on appropriate diet and tolerating well. FITTER HAND to f/u X1.. Frequency/Duration: Date Range for Service Req: Timeline to reassess: Book Cleaner Clinican/Clinical Fellow: No Supervisory Statement: I have reviewed and agree with the student/clinical fellow's documentation: N/A Speech Language Pathologist: Yanique Vance M.A., CCC-FITTER HAND
--- NOTE | 2024-01-14 10:37 | ECG_ITS ---
Test Reason : QTc Monitoring Blood Pressure : / mmHG Vent. Rate : 052 BPM Atrial Rate : 052 BPM P-R Int : 146 ms QRS Dur : 082 ms QT Int : 460 ms P-R-T Axes : 002 -06 -11 degrees QTc Int : 427 ms Sinus bradycardia Otherwise normal ECG When compared with ECG of 13-JAN-2024 09:24, Inverted T waves have replaced nonspecific T wave abnormality in Inferior leads QT has shortened Referred By: Daniella Sotelo Electronically Signed By:Omid De Guzman
[2024-01-14 11:09] LABS: Glucose, Whole Blood 279 mg/dL (60-115)
--- NOTE | 2024-01-14 11:16 | P.PNIM_ITS ---
Subjective Subjective Date of Service: 01/14/24 Interval History: Seen and examined this morning Follow-up for respiratory failure, pneumonia Breathing improving, blood pressure stable Review of Systems Review of Systems: Yes all other systems are reviewed and are negative Constitutional Constitutional: Denies chills and Denies fever(s) ENT Ears, Nose, Mouth, and Throat: Denies dizziness Cardiovascular Cardiovascular: Denies chest pain and Reports dyspnea Respiratory Respiratory: Reports cough and Reports dyspnea Gastrointestinal Gastrointestinal: Denies abdominal pain Neurologic Neurologic: Denies dizziness Physical Exam 2 Vital Signs: Vital Signs: Last Vital Signs Temp 98.1 F 01/14/24 07:56 Pulse 58 01/14/24 08:16 Resp 18 01/14/24 08:16 BP 149/69 H 01/14/24 07:56 Pulse Ox 98 01/14/24 07:56 O2 Del Method Nasal Cannula 01/14/24 07:56 O2 Flow Rate 3 01/14/24 07:56 Oxygen Flow Rate 2 01/12/24 01:47 BMI result Body Mass Index 22.0 Const: General: cooperative, comfortable, alert and awake Nutritional Appearance: average body habitus Orientation/consciousness: patient oriented x3 Resp: Other: course breath sounds b/l, no wheeze Effort & Inspection: normal respiratory effort, no respiratory distress and no use of accessory muscles Cardio: Rate: regular rate GI: Inspection: No distended Palpation (GI): Soft to palpation and nontender Neuro: General: patient oriented x3 Extrem: Other: s/p rigth BKA Objective Data Active Medications Albuterol Sulfate (Albuterol Sulfate 90 Mcg 8 Gm Inhaler) 2 puff INHALE Q4H PRN PRN Reason: Respiratory Distress Amlodipine Besylate (Amlodipine Besylate 10 Mg Tablet) 10 mg PO DAILY [facility]; Protocol Last Admin: 01/14/24 08:53 Dose: 10 mg Documented By: CHIN Aspirin (Aspirin Enteric Coated 81 Mg Tablet.Dr) 81 mg PO DAILY [facility] Last Admin: 01/14/24 08:53 Dose: 81 mg Documented By: CHIN Atorvastatin Calcium (Atorvastatin Calcium 40 Mg Tablet) 40 mg PO DAILY [facility] Last Admin: 01/14/24 08:52 Dose: 40 mg Documented By: CHIN Bupropion HCl (Bupropion Hcl Xl 300 Mg Tab.Er.24h) 300 mg PO DAILY [facility] Last Admin: 01/14/24 08:53 Dose: 300 mg Documented By: CHIN Fluticasone Propionate (Fluticasone Propionate 100 Mcg Blst.W.Dev) 1 puff INHALE RBID [facility] Last Admin: 01/14/24 08:16 Dose: 1 puff Documented By: FAHEEM Gabapentin (Gabapentin 600 Mg Tablet) 600 mg PO TID [facility] Last Admin: 01/14/24 08:53 Dose: 600 mg Documented By: CHIN Glucose (Glucose Gel 15 Gm Gel..Gram.) 15 gm PO Q15M PRN; Protocol PRN Reason: per Hypoglycemia Standing Ord. Heparin Sodium (Porcine) (Heparin Sodium,Porcine 5,000 Unit/Ml Vial) 5,000 unit SUBCUT Q8H [facility] Last Admin: 01/14/24 05:45 Dose: 5,000 unit Documented By: KORINA Dextrose (D10) 250 mls @ 750 mls/hr IV Q15M PRN PRN Reason: per Hypoglycemia Standing Ord. Last Infusion: 01/11/24 18:27 Dose: Infused Documented By: KENNEY Piperacillin Sod/Tazobactam (Sod 4.5 gm/ Sodium Chloride) 100 mls @ 200 mls/hr IV Q8H [facility] Last Infusion: 01/14/24 10:19 Dose: Infused Documented By: KELLY Vancomycin HCl 750 mg/ Sodium (Chloride) 265 mls @ 265 mls/hr IV Q24H [facility] Last Infusion: 01/13/24 23:59 Dose: Infused Documented By: KORINA Dextrose (D10) 250 mls @ 750 mls/hr IV Q15M PRN; Protocol PRN Reason: per Hypoglycemia Standing Ord. Insulin Human Lispro (Insulin Lispro 100 Unit/Ml 3 Ml Vial) 0 unit SUBCUT QIDACHS [facility]; Protocol Last Admin: 01/14/24 08:51 Dose: 6 unit Documented By: CHIN Methadone HCl (Methadone Hcl 20 Mg/2 Ml Oral.Conc) 130 mg PO DAILY [facility] Last Admin: 01/14/24 08:55 Dose: 130 mg Documented By: CHIN Metoprolol Succinate (Metoprolol Succinate Er 25 Mg Tab.Er.24h) 25 mg PO DAILY [facility]; Protocol Last Admin: 01/14/24 08:53 Dose: 25 mg Documented By: CHIN Mirtazapine (Mirtazapine 7.5 Mg Tablet) 7.5 mg PO BEDTIME [facility] Last Admin: 01/13/24 20:17 Dose: 7.5 mg Documented By: THU Nicotine (Nicotine 14 Mg Patch.Td24) 14 mg TRANSDERMA DAILY [facility] Last Admin: 01/14/24 08:54 Dose: 14 mg Documented By: CHIN Omeprazole (Omeprazole 20 Mg Capsule.Dr) 20 mg PO DAILY@0630 [facility] Last Admin: 01/14/24 05:46 Dose: 20 mg Documented By: KORINA Pharmacy Consult (Consult Rx Vancomycin Dosing) 1 each MISCELLANE DAILY PRN PRN Reason: Consult order Sodium Chloride (0.9 % Sodium Chloride Flush 3 Ml Syringe) 3 ml IVFLUSH QSHIFT [facility] Last Admin: 01/14/24 08:54 Dose: 3 ml Documented By: CHIN Zolpidem Tartrate (Zolpidem Tartrate 5 Mg Tablet) 10 mg PO BEDTIME PRN PRN Reason: Sleep Last Admin: 01/14/24 00:55 Dose: 10 mg Documented By: KORINA Labs 01/14/24 06:05 01/14/24 06:05 Labs: Laboratory Results - last 24 hr 01/13/24 01/13/24 01/13/24 16:26 19:38 20:59 MCV MCH MCHC RDW Plt Count MPV Immature Gran % (Auto) Neut % (Auto) Lymph % (Auto) [place] % (Auto) Eos % (Auto) Baso % (Auto) Lymph # (Auto) [place] # (Auto) Eos # (Auto) Baso # (Auto) Abs Immat Gran (auto) Absolute Neuts (auto) Absolute Nucleated RBC Nucleated RBC % (auto) Anion Gap Estim Creat Clear Calc Estimated GFR POC Glucose 176 H 195 H Random Glucose Calcium Phosphorus Magnesium Random Vancomycin 13.9 L 01/14/24 01/14/24 01/14/24 00:25 06:04 06:05 MCV 88.7 MCH 29.1 MCHC 32.8 RDW 16.5 H Plt Count 207 MPV 10.9 Immature Gran % (Auto) 0.6 H Neut % (Auto) 69.0 Lymph % (Auto) 22.1 [place] % (Auto) 7.0 Eos % (Auto) 1.0 Baso % (Auto) 0.3 Lymph # (Auto) 1.6 [place] # (Auto) 0.5 Eos # (Auto) 0.1 Baso # (Auto) 0.0 Abs Immat Gran (auto) 0.04 H Absolute Neuts (auto) 4.9 Absolute Nucleated RBC 0.000 Nucleated RBC % (auto) 0.0 Anion Gap 13 Estim Creat Clear Calc 32.9 Estimated GFR 35 POC Glucose 319 H 300 H Random Glucose 315 H Calcium 8.8 Phosphorus 2.9 Magnesium 1.4 L* Random Vancomycin 01/14/24 01/14/24 07:03 10:50 MCV MCH MCHC RDW Plt Count MPV Immature Gran % (Auto) Neut % (Auto) Lymph % (Auto) [place] % (Auto) Eos % (Auto) Baso % (Auto) Lymph # (Auto) [place] # (Auto) Eos # (Auto) Baso # (Auto) Abs Immat Gran (auto) Absolute Neuts (auto) Absolute Nucleated RBC Nucleated RBC % (auto) Anion Gap Estim Creat Clear Calc Estimated GFR POC Glucose 280 H 279 H Random Glucose Calcium Phosphorus Magnesium Random Vancomycin Microbiology Microbiology Results: Microbiology 01/11/24 18:22 Blood Culture - Preliminary Blood - Venous No growth after 48 hours. 01/11/24 18:05 Blood Culture - Preliminary Blood - Venous No growth after 48 hours. 01/11/24 18:04 Urine Culture - Preliminary Urine Catheterized - Straight Catheter Yeast Assessment and Plan (1) Septic shock: Status: Acute (2) Aspiration pneumonia: Status: Acute Plan This is a 63 y/o female with history of opioid dependence, DM, HTN, HLD, recent hospitalization (12/30 to 01/03) for inflammatory PNA/copd exacerbation and acute hypoxic respiratory failure, unclear if she took antibiotics. She was admitted through the ICU with acute hypoxic respiratory failure and septic shock presumed to be related to aspiration pneumonia Acute hypoxic respiratory failure d/t PNA, possibly aspiration type treat underlying PNA Wean oxygen as tolerated Septic shock d/t aspiration pneumonia steming from drug use, shock resolved. continue IV Zosyn and Vanco, DC Vanco given no MRSA Blood cultures negative Metabolic encephalopathy--due to above, and drugs--resolved Acute kidney injury, likely early ATN from septic shock, resolved, back to baseline CKD ( baseline not well established) Nephro following hold lisinopril Hypomagnesemia Replace Follow levels Type 2 diabetes mellitus, with hypoglycemia now resolved. BS trending up will resume Lantus at 10U (on tresiba at baseline) hold Metformin (should be avoided d/t CKD) -SSI - diabetic diet - A1C = 7 Substance use disorder/opioid dependence (+cocain, fentanyl, methadone) -continue Methadone -addiction med consult -counseled on cessation. HLD--continue Lipitor HTN--septic shock and hypotension resolved -restart Norvasc 10, Toprol 25.. Hold Lisinopril 40 for ines Tobacco use disorder Counseled, NRT Mood continue baseline meds DVT prophylaxis: Heparin Code status: Full Need for inatient: management for severe sepsis, septic shock needing needing vasopressors and now on broad spec Abx Quality Stroke Does the patient have a stroke diagnosis?: No VTE Prior VTE?: No VTE Risk Level:: Medical - moderate - high VTE Device Contraindication: N/A - Device Ordered VTE Drug Contraindication: N/A - Med Ordered
[2024-01-14] MEDS: Magnesium Sulfate/H2O 2 GM/50 ML PIGGYBACK IV (12:06)
--- NOTE | 2024-01-14 13:20 | P.PNNP_ITS ---
Subjective Subjective Date of Service: 01/14/24 Interval history: Seen and examined this morning Follow-up for respiratory failure, pneumonia Breathing improving, blood pressure stable Physical Exam 2 Vital Signs: Vital Signs: Last Vital Signs Temp 98.2 F 01/14/24 11:24 Pulse 59 01/14/24 11:24 Resp 20 01/14/24 11:24 BP 105/56 L 01/14/24 11:24 Pulse Ox 94 01/14/24 11:24 O2 Del Method Nasal Cannula 01/14/24 11:24 O2 Flow Rate 3 01/14/24 11:24 Oxygen Flow Rate 2 01/12/24 01:47 BMI result Body Mass Index 22.0 Neck: Neck: Yes supple Resp: Auscultation: clear to auscultation bilaterally Cardio: Palpation: no palpable S3 Heart sounds: no rubs GI: Palpation (GI): Soft to palpation Auscultation: normal bowel sounds Neuro: Motor exam (neuro): no asterixis Objective Data Labs 01/14/24 06:05 01/14/24 06:05 Labs: Laboratory Results - last 24 hr 01/13/24 01/13/24 01/13/24 16:26 19:38 20:59 WBC RBC Hgb Hct MCV MCH MCHC RDW Plt Count MPV Immature Gran % (Auto) Neut % (Auto) Lymph % (Auto) [place] % (Auto) Eos % (Auto) Baso % (Auto) Lymph # (Auto) [place] # (Auto) Eos # (Auto) Baso # (Auto) Abs Immat Gran (auto) Absolute Neuts (auto) Absolute Nucleated RBC Nucleated RBC % (auto) Sodium Potassium Chloride Carbon Dioxide Anion Gap BUN Creatinine Estim Creat Clear Calc Estimated GFR POC Glucose 176 H 195 H Random Glucose Calcium Phosphorus Magnesium Random Vancomycin 13.9 L 01/14/24 01/14/24 01/14/24 00:25 06:04 06:05 WBC 7.1 RBC 3.02 L Hgb 8.8 L Hct 26.8 L MCV 88.7 MCH 29.1 MCHC 32.8 RDW 16.5 H Plt Count 207 MPV 10.9 Immature Gran % (Auto) 0.6 H Neut % (Auto) 69.0 Lymph % (Auto) 22.1 [place] % (Auto) 7.0 Eos % (Auto) 1.0 Baso % (Auto) 0.3 Lymph # (Auto) 1.6 [place] # (Auto) 0.5 Eos # (Auto) 0.1 Baso # (Auto) 0.0 Abs Immat Gran (auto) 0.04 H Absolute Neuts (auto) 4.9 Absolute Nucleated RBC 0.000 Nucleated RBC % (auto) 0.0 Sodium 138 Potassium 3.8 Chloride 105 Carbon Dioxide 24 Anion Gap 13 BUN 18 H Creatinine 1.49 H Estim Creat Clear Calc 32.9 Estimated GFR 35 POC Glucose 319 H 300 H Random Glucose 315 H Calcium 8.8 Phosphorus 2.9 Magnesium 1.4 L* Random Vancomycin 01/14/24 01/14/24 07:03 10:50 WBC RBC Hgb Hct MCV MCH MCHC RDW Plt Count MPV Immature Gran % (Auto) Neut % (Auto) Lymph % (Auto) [place] % (Auto) Eos % (Auto) Baso % (Auto) Lymph # (Auto) [place] # (Auto) Eos # (Auto) Baso # (Auto) Abs Immat Gran (auto) Absolute Neuts (auto) Absolute Nucleated RBC Nucleated RBC % (auto) Sodium Potassium Chloride Carbon Dioxide Anion Gap BUN Creatinine Estim Creat Clear Calc Estimated GFR POC Glucose 280 H 279 H Random Glucose Calcium Phosphorus Magnesium Random Vancomycin Microbiology Microbiology Results: Microbiology 01/11/24 18:04 Urine Catheterized - Straight Catheter Urine Culture - Preliminary Yeast 01/11/24 18:22 Blood - Venous Blood Culture - Preliminary No growth after 48 hours. 01/11/24 18:05 Blood - Venous Blood Culture - Preliminary No growth after 48 hours. Procedures Date of Service Date of Service: 01/14/24 Assessment & Plan Assessment and plan (1) Acute kidney injury: Status: Resolved Plan AUBRIE most likely due to TUbular injury from ischemic /Low BP Renal function is improving Suggest Urine Na/CR/Pro and UA Hold ACEi Avoid hypotension Watch UO Avoid nephrotoxins /Vanco No indication for dialysis Time Spent With Patient Time: Total time managing care of this patient today ____ minutes. Progress Note: Quality Stroke Does the patient have a stroke diagnosis?: No
--- NOTE | 2024-01-14 13:26 | MHC.RECOVRN ---
Met with pt in 468 after consult placed to Addiction Medicine for multiple substance use. Pt had presented to the ED with nausea/vomiting and ?substance use per [facility]. Upon evaluation, pt admitted for septic shock, aspiration pneumonia, metabolic encephalopathy, acute hypoxic respiratory failure, AUBRIE, and hypoglycemia. Pt sitting in bed, awake, alert, engages in conversation, familiar with t/w from consult on 01/03. Pt continues to receive methadone from [facility] in [place], 130 mg daily. Pt guarded regarding substance use, does disclose that she had used 1 or 2 bags of heroin/fentanyl, [place]. Pt reports this was precipitated by stress. Pt difficult to engage in further discussion regarding substance use. Discussed recovery resources and supports, pt is interested in meeting with a oil recovery unit operator while in the hospital. Pt was provided with additional written information, very grateful to have the opportunity to gain more support. Pt also provided with t/w contact information if needed. Denies questions or concerns at this time. Plan for oil recovery unit operator to meet with pt this evening.
[2024-01-14 15:45] LABS: Glucose, Whole Blood 201 mg/dL (60-115)
--- NOTE | 2024-01-14 18:27 | MHC.RECOVSUP ---
? Reason for consult Recovery Support. o Current location: [facility] o Identified substance use concern: Opiates - Support ? Intervention: o Community resources provided o Harm reduction discussion ? Plan: o Patient to follow up with [facility] after discharge ? Additional information: Met with Patient and we talked about recovery and harm reduction. Patient stated that she would like to start with a assistant women's tennis coach.. And maybe work on her mental health.
[2024-01-14 20:31] LABS: Glucose, Whole Blood 263 mg/dL (60-115)
[2024-01-14] MEDS: Mirtazapine 7.5 MG TABLET PO (21:11)
[2024-01-14] MEDS: Insulin Glargine,Hum.rec.anlog 100 UNIT/ML 10 ML VIAL 10 UNIT SUBCUT (21:12)
[2024-01-14 21:24] LABS: Vancomycin Random 15.5 mcg/mL (15-20)
[2024-01-15] VITALS (10 sets, daily range): BP systolic 107–153; BP diastolic 54–79; PULSE 53–69; RESP 12–20; TEMP 36.1–37.1; O2SAT 94–97; BMI 22.3
[2024-01-15] MEDS: Piperacillin Sodium/Tazobactam 4.5 GM in 0.9 % Sodium Chloride 100 ML IV ×3 (02:21→17:27)
[2024-01-15 06:19] LABS: MANUAL DIFF FLAG NO
[2024-01-15 06:23] LABS: Basophils Percent Auto 0.3 % (0-2); Eosinophils Absolute Auto 0.1 X10*3/uL (0.0-0.4); Eosinophils Percent Auto 0.9 % (0-4); Hematocrit 27.5 % (37.0-47.0); Hemoglobin 8.7 g/dl (12.0-16.0); Imm Gran Abs Auto 0.02 X10*3/uL (0.00-0.03); Imm Gran Pct Auto 0.3 % (0.0-0.4); Lymphocytes Absolute Auto 1.6 X10*3/uL (1.2-4.9); Lymphocytes Percent Auto 23.2 % (20-40); Mean Corpuscular HGB Conc 31.6 g/dl (31.0-35.0); Mean Corpuscular Hemoglobin 28.9 pg (27.0-33.0); Mean Corpuscular Volume 91.4 fL (80.0-98.0); Mean Platelet Volume 10.7 fL (9.4-12.3); Monocytes Absolute Auto 0.5 X10*3/uL (0.1-1.2); Monocytes Percent Auto 7.8 % (2-11); Neutrophils Absolute Auto 4.6 x10*3/uL (2.0-8.3); Neutrophils Percent Auto 67.5 % (45-73); Platelet Count 199 X10*3/uL (160-400); Red Blood Count 3.01 X10*6/uL (4.20-5.50); Red Cell Distribution Width 16.4 % (11.0-16.0); White Blood Count 6.8 X10*3/uL (4.8-10.8)
[2024-01-15] MEDS: Omeprazole 20 MG CAPSULE.DR PO (06:25)
[2024-01-15] MEDS: Heparin Sodium,Porcine 5,000 UNIT/ML VIAL 5000 UNIT SUBCUT ×3 (06:25→22:32)
[2024-01-15 06:51] LABS: Anion Gap 13 (12-20); Blood Urea Nitrogen 19 mg/dL (9-16); Calcium 8.9 mg/dL (8.4-10.2); Carbon Dioxide 23 mmol/L (22-29); Chloride 106 mmol/L (96-108); Creatinine Clr Calc Pharmacy 32.6; Estimated Glomerular Filt Rate 35; Glucose Random 364 mg/dL (60-115); Magnesium 1.6 mg/dL (1.6-2.6); Potassium 4.1 mmol/L (3.3-5.1); Sodium 138 mmol/L (135-145)
[2024-01-15] MEDS: Fluticasone Propionate 100 MCG BLST.W.DEV 1 PUFF INHALE ×2 (07:41→19:38)
[2024-01-15 08:02] LABS: Glucose, Whole Blood 325 mg/dL (60-115)
[2024-01-15] MEDS: Atorvastatin Calcium 40 MG TABLET PO (08:09)
[2024-01-15] MEDS: Gabapentin 600 MG TABLET PO ×3 (08:09→22:32)
[2024-01-15] MEDS: Aspirin Enteric Coated 81 MG TABLET.DR PO (08:09)
[2024-01-15] MEDS: methADONE HCl 20 MG/2 ML ORAL.CONC 130 MG PO (08:09)
[2024-01-15] MEDS: buPROPion HCl XL 300 MG TAB.ER.24H PO (08:10)
[2024-01-15] MEDS: Nicotine 14 MG PATCH.TD24 TRANSDERMA (08:10)
[2024-01-15] MEDS: amLODIPine Besylate 10 MG TABLET PO (08:10)
[2024-01-15] MEDS: Insulin Lispro 100 UNIT/ML 3 ML VIAL SUBCUT ×4 (08:11→22:31)
[2024-01-15] MEDS: 0.9 % Sodium Chloride Flush 3 ML SYRINGE IVFLUSH ×3 (08:12→22:38)
--- NOTE | 2024-01-15 09:06 | MHC.SL.SWA ---
Speech Pathologist Impression: Risk of Aspiration Due to: Dysphasia Diet Status: Recommend Patient continue on Chopped Advanced (NDD3) with THIN liquids, pills whole with liquid while inpatient. Patient can resume typical diet of softer foods on discharge/next level of care. Liquid Consistency and Strategies for Safe Swallow: Liquid Intake Recommendation: Thin Liquid Intake Strategies: Solid Food Consistency: Dietary Recommendations: Chopped/Advanced (NDD3) Additional Modifications to Solid Foods: Oral Medication Intake: Whole with Liquid Please contact the pharmacy regarding appropriate crushable or liquid drug formulations that are available whenever modified delivery is recommended. Compensatory Strategies and Precautions to be Taken for Safe Swallow: Sitting Upright (90 deg) Small Bites and Sips Rate of Ingestion Change Supervision While Eating and Drinking for Safe Swallow: Intermittent Supervision Foods to Avoid: Swallowing Recommended Treatments: Recommendation for Speech: Inpatient Speech Therapy Comment: Patient was seen at breakfast. Patient noted to eat the entirety of her meal at a rapid pace, however evidenced no difficulties, no clinical signs of aspiration. Current diet of Chopped Advanced continues to be appropriate, secondary to being in small, precut pieces as a safer consistency given patient's rate of intake, reducing choking risk. Patient also tolerating thin liquids with no restrictions very well. Recommend Patient continue on Chopped Advanced (NDD3) with THIN liquids, pills whole with liquid while inpatient. Patient can resume typical diet of softer foods on discharge/next level of care. Recommend D/C speech at this time. Frequency/Duration: Date Range for Service Req: Timeline to reassess: Inspector Advanced Composite Clinican/Clinical Fellow: No Supervisory Statement: I have reviewed and agree with the student/clinical fellow's documentation: N/A Speech Language Pathologist: Yanique Vance M.A., CCC-CHEMICAL PRODUCTION ENGINEER
--- NOTE | 2024-01-15 10:37 | ECG_ITS ---
Test Reason : qtc Blood Pressure : / mmHG Vent. Rate : 055 BPM Atrial Rate : 055 BPM P-R Int : 144 ms QRS Dur : 088 ms QT Int : 462 ms P-R-T Axes : 029 -03 019 degrees QTc Int : 441 ms Sinus bradycardia Otherwise normal ECG When compared with ECG of 14-JAN-2024 10:40, No significant change was found Referred By: Daniella Sotelo Electronically Signed By:Omid De Guzman
[2024-01-15 11:42] LABS: Glucose, Whole Blood 236 mg/dL (60-115)
--- NOTE | 2024-01-15 12:20 | PM.PNNEP ---
Subjective Subjective Date of Service: 01/15/24 Interval history: Seen and examined this morning Follow-up for respiratory failure, pneumonia Breathing improving, blood pressure stable Physical Exam Vital Signs: Vital Signs: Last Vital Signs Temp 98.7 F 01/15/24 11:49 Pulse 60 01/15/24 11:49 Resp 20 01/15/24 11:49 BP 107/57 L 01/15/24 11:49 Pulse Ox 95 01/15/24 11:49 O2 Del Method Room Air 01/15/24 11:49 O2 Flow Rate 1 01/15/24 04:00 Oxygen Flow Rate 2 01/12/24 01:47 BMI result Body Mass Index 22.3 Neck: Neck: Yes supple Resp: Auscultation: clear to auscultation bilaterally Cardio: Palpation: no palpable S3 Heart sounds: no rubs GI: Palpation (GI): Soft to palpation Auscultation: normal bowel sounds Neuro: Motor exam (neuro): no asterixis Objective Data Labs 01/15/24 06:02 01/15/24 06:02 Labs: Laboratory Results - last 24 hr 01/14/24 01/14/24 01/14/24 15:34 20:19 20:55 WBC RBC Hgb Hct MCV MCH MCHC RDW Plt Count MPV Immature Gran % (Auto) Neut % (Auto) Lymph % (Auto) [place] % (Auto) Eos % (Auto) Baso % (Auto) Lymph # (Auto) [place] # (Auto) Eos # (Auto) Baso # (Auto) Abs Immat Gran (auto) Absolute Neuts (auto) Absolute Nucleated RBC Nucleated RBC % (auto) Sodium Potassium Chloride Carbon Dioxide Anion Gap BUN Creatinine Estim Creat Clear Calc Estimated GFR POC Glucose 201 H 263 H Random Glucose Calcium Magnesium Random Vancomycin 15.5 01/15/24 01/15/24 01/15/24 06:02 07:54 11:01 WBC 6.8 RBC 3.01 L Hgb 8.7 L Hct 27.5 L MCV 91.4 MCH 28.9 MCHC 31.6 RDW 16.4 H Plt Count 199 MPV 10.7 Immature Gran % (Auto) 0.3 Neut % (Auto) 67.5 Lymph % (Auto) 23.2 [place] % (Auto) 7.8 Eos % (Auto) 0.9 Baso % (Auto) 0.3 Lymph # (Auto) 1.6 [place] # (Auto) 0.5 Eos # (Auto) 0.1 Baso # (Auto) 0.0 Abs Immat Gran (auto) 0.02 Absolute Neuts (auto) 4.6 Absolute Nucleated RBC 0.000 Nucleated RBC % (auto) 0.0 Sodium 138 Potassium 4.1 Chloride 106 Carbon Dioxide 23 Anion Gap 13 BUN 19 H Creatinine 1.50 H Estim Creat Clear Calc 32.6 Estimated GFR 35 POC Glucose 325 H 236 H Random Glucose 364 H* Calcium 8.9 Magnesium 1.6 Random Vancomycin Microbiology Microbiology Results: Microbiology 01/11/24 18:04 Urine Catheterized - Straight Catheter Urine Culture - Final Bhavya glabrata 01/11/24 18:22 Blood - Venous Blood Culture - Preliminary No growth after 48 hours. 01/11/24 18:05 Blood - Venous Blood Culture - Preliminary No growth after 48 hours. Procedures Date of Service Date of Service: 01/15/24 Assessment & Plan Assessment and plan (1) Acute kidney injury: Status: Resolved Plan AUBRIE most likely due to TUbular injury from ischemic /Low BP Renal function is improving -unchanged Suggest Urine Na/CR/Pro and UA Hold ACEi Avoid hypotension Watch UO Avoid nephrotoxins /Vanco No indication for dialysis Time Spent With Patient Time: Total time managing care of this patient today ____ minutes. Progress Note: Quality Stroke Does the patient have a stroke diagnosis?: No
--- NOTE | 2024-01-15 12:56 | P.DS_ITS ---
DS: Providers Provider Date of Service: 01/17/24 Date of admission: 01/12/24 01:47 Date of discharge: 01/17/24 Primary care physician: Unknown Physician Consults: 01/12/24 08:31 Consult to Wound Care Routine Reason for consultation: right BKA wound 01/13/24 07:40 Addiction Medicine Routine Consulting Provider: Addiction Covering Reason for consultation: mult substance use 01/13/24 07:41 Consult to Nephrology Routine Consulting Provider: [facility] Reason for consultation: AUBRIE on CKD Attending physician on discharge: Leo Spence Discharging clinician: Rox Byers DS: Diagnosis Discharge Diagnosis (1) Acute kidney injury: Status: Resolved (2) Metabolic encephalopathy: Status: Acute (3) Aspiration pneumonia: Status: Acute (4) Septic shock: Status: Acute DS: Summary Hospital Course Hospital Course: From H&P from day of admission The patient is a? 63-year-old female with a past medical history of COPD,? PE (?? if patient is on Xarelto),? type 2 diabetes mellitus, polysubstance abuse on methadone, dyslipidemia, constipation, tobacco use? and recent admission 12/31/23 to 01/04/24 for hypoxia due to infectious inflammatory pneumonitis, acute COPD exacerbation? and she came back positive for fentanyl? was discharged with Augmentin, prednisone taper,? home nurse? services and advised to continue her methadone.? ?She presented to the emergency department after home nurse called EMS and? reported patient confused with nausea/vomiting /diarrhea. ? She had a recent admission from. On arrival to the emergency department,? patient was lethargic,? pupils constricted,? she received Narcan and became alert and oriented x3, Vital signs were stable.? She later became confused,? agitated? require administration of Ativan and Haldol.? After Ativan and Haldol patient became obtunded,? blood pressure dropped to 80s systolic despite 3 L bolus.? Requiring initiation of pressors. ? Laboratory data was significant for WBC 23, serum bicarb 21, anion gap 11, BUN 47, creatinine 2.66, lactic acid 2.6, calcium 7.5, albumin 2.5, Finger POC was only 48.? She received dextrose.?? TOXICOLOGY:? positive for opiates, methadone, fentanyl, and cocaine IMAGING:? ?Chest x-ray:? with signs of aspiration and multifocal pneumonia ED course:? she received naloxone 4 mg IN, ? ceftriaxone 1 g, 3 L normal saline bolus, Ativan 1 g, Haldol 5 mg, and started on Levophed Acute hypoxic respiratory failure d/t PNA, possibly aspiration type Septic shock d/t aspiration pneumonia stemming from drug use. initially requiring ICU level of care and pressor support. shock resolved, she was downgraded to the medical floor. She was treated with IV Zosyn. Blood cultures have remained negative. seen by speech - recommend NDD3 diet. She has been weaned off of supplemental oxygen onto room air, respiratory symptoms improved. Metabolic encephalopathy due to above, and drugs-resolved Acute kidney injury, likely early ATN from septic shock, resolved, back to base line CKD ( baseline not well established) Nephro following -outpatient follow up with nephro hold lisinopril upon discharge until follow up with nephrology Hypomagnesemia Resolved with replacement Substance use disorder/opioid dependence (+cocaine, fentanyl, methadone) continue Methadone seen by addiction med consult - plan for outpatient follow up. counseled on cessation. HLD- continue Lipitor HTN--septic shock and hypotension resolved restarted on Norvasc 10, Toprol 25.. Hold Lisinopril 40 for aubrie until follow up with nephrology as outpatient DM Type 2 diabetes mellitus, with hypoglycemia now resolved. BS trending up, resumed on lower dose of Lantus at 10U (on tresiba at baseline), will be reduced to 15 units at discharge hold Metformin (should be avoided for now d/t CKD) We will be discharged home with visiting nurses for close blood sugar monitoring Time Attestation Discharge Coordination Time (in mins): 36 Quality: Safe Use of Opioids Does Pt have an Active Cancer Diagnosis on the Problem List?: No Quality: Stroke Does the patient have a stroke diagnosis?: No Physical Exam Vital Signs: Vital Signs: Last Vital Signs Temp 98.7 F 01/15/24 11:49 Pulse 60 01/15/24 11:49 Resp 20 01/15/24 11:49 BP 107/57 L 01/15/24 11:49 Pulse Ox 95 01/15/24 11:49 O2 Del Method Room Air 01/15/24 11:49 O2 Flow Rate 1 01/15/24 04:00 Oxygen Flow Rate 2 01/12/24 01:47 BMI result Body Mass Index 22.3 Const: General: cooperative, comfortable, no acute distress, alert and awake Nutritional Appearance: average body habitus Orientation/consciousness: patient oriented x3 Resp: Effort & Inspection: normal respiratory effort, able to speak in complete sentences, no respiratory distress and no use of accessory muscles Cardio: Rate: regular rate GI: Inspection: No distended Palpation (GI): Soft to palpation and nontender Neuro: General: patient oriented x3 Extrem: Other: right bka DS: Data Data Completed and Pending Completed studies during hospitalization [Text1]: Procedures Compression of Right Foot using Pressure Dressing (05/28/20) Detachment at Right Lower Leg, Mid, Open Approach (01/11/22) Excision of Left Shoulder Joint, Open Approach (10/14/23) Insertion of Infusion Device into Superior Vena Cava, Percutaneous Approach (10/14/23) Ultrasonography of Superior Vena Cava, Guidance (10/14/23) Labs on day of discharge: Laboratory Results - last 24 hr 01/14/24 01/14/24 01/14/24 15:34 20:19 20:55 WBC RBC Hgb Hct MCV MCH MCHC RDW Plt Count MPV Immature Gran % (Auto) Neut % (Auto) Lymph % (Auto) [place] % (Auto) Eos % (Auto) Baso % (Auto) Lymph # (Auto) [place] # (Auto) Eos # (Auto) Baso # (Auto) Abs Immat Gran (auto) Absolute Neuts (auto) Absolute Nucleated RBC Nucleated RBC % (auto) Sodium Potassium Chloride Carbon Dioxide Anion Gap BUN Creatinine Estim Creat Clear Calc Estimated GFR POC Glucose 201 H 263 H Random Glucose Calcium Magnesium Random Vancomycin 15.5 01/15/24 01/15/24 01/15/24 06:02 07:54 11:01 WBC 6.8 RBC 3.01 L Hgb 8.7 L Hct 27.5 L MCV 91.4 MCH 28.9 MCHC 31.6 RDW 16.4 H Plt Count 199 MPV 10.7 Immature Gran % (Auto) 0.3 Neut % (Auto) 67.5 Lymph % (Auto) 23.2 [place] % (Auto) 7.8 Eos % (Auto) 0.9 Baso % (Auto) 0.3 Lymph # (Auto) 1.6 [place] # (Auto) 0.5 Eos # (Auto) 0.1 Baso # (Auto) 0.0 Abs Immat Gran (auto) 0.02 Absolute Neuts (auto) 4.6 Absolute Nucleated RBC 0.000 Nucleated RBC % (auto) 0.0 Sodium 138 Potassium 4.1 Chloride 106 Carbon Dioxide 23 Anion Gap 13 BUN 19 H Creatinine 1.50 H Estim Creat Clear Calc 32.6 Estimated GFR 35 POC Glucose 325 H 236 H Random Glucose 364 H* Calcium 8.9 Magnesium 1.6 Random Vancomycin Preliminary micro results at discharge 01/11/24 18:22 Blood Culture - Preliminary Blood - Venous No growth after 48 hours. 01/11/24 18:05 Blood Culture - Preliminary Blood - Venous No growth after 48 hours. Discharge Plan Discharge Anticipated Discharge Date/Time: 01/15/24 13:11 Patient Disposition: Home Health Service Discharge Diagnosis: septic shock due to aspiration pneumonia AUBRIE low magnesium Referrals: Ricky Claire MD [Physician] - 1 Week Physician,Pedro J [Primary Care Provider] - 1 Week Discharge Medications: Continued ondansetron 4 mg tablet,disintegrating 4 mg PO TID PRN (Reason: nausea and vomiting) 5 Days Qty: 10 0RF amlodipine 10 mg tablet 10 mg PO DAILY Qty: 90 0RF metoprolol succinate 25 mg tablet extended release 24 hr 25 mg PO DAILY mirtazapine 7.5 mg tablet 7.5 mg PO BEDTIME Fiasp U-100 Insulin 100 unit/mL solution 0 sliding scale dose subcut USEASDIRECTD zolpidem 10 mg tablet 10 mg PO BEDTIME PRN (Reason: Sleep) Arnuity Ellipta 100 mcg/actuation blister with device 1 inh inhalation DAILY methadone 10 mg/mL Concentrate 130 mg PO DAILY nicotine 14 mg/24 hr Patch 24 Hour 14 mg transdermal DAILY Qty: 30 0RF amoxicillin-pot clavulanate 875-125 mg tablet 1 tab PO BID 4 Days Qty: 8 0RF gabapentin 600 mg tablet 600 mg PO TID albuterol sulfate 90 mcg/actuation HFA aerosol inhaler 2 puff PO Q4H PRN (Reason: Respiratory Distress) omeprazole 20 mg capsule,delayed release(DR/EC) 20 mg PO DAILY@0630 aspirin 81 mg tablet,delayed release (DR/EC) 81 mg PO DAILY bupropion HCl 150 mg tablet sustained-release 12 hr 150 mg PO BID atorvastatin 40 mg tablet 40 mg PO DAILY acetaminophen 325 mg capsule 325 mg PO QID PRN (Reason: Pain) Changed insulin degludec [Tresiba FlexTouch U-100] 100 unit/mL (3 mL) insulin pen 15 unit subcut BEDTIME Qty: 15 0RF Held lisinopril 40 mg tablet 40 mg PO DAILY Qty: 90 0RF Hold Instructions: hold until follow up with nephrology metformin 1,000 mg tablet 1,000 mg PO BIDWM Hold Instructions: hold until follow up labs done outpatient. discuss with PCP if renal function ok to continue Discontinued sulfamethoxazole-trimethoprim [Bactrim DS] 800-160 mg tablet 1 tab PO MOWEFR prednisone 10 mg tablet See Rx Instructions .ROUTE .COMPLEX Qty: 12 0RF Rx Instructions: 30 mg daily x 2 days, then 20 mg daily x 2 days, then 10 mg daily x 2 days No Action (DME) walker Misc See Rx Instructions .ROUTE .MEDSUPPLY Qty: 1 0RF Rx Instructions: As directed (DME) lancets 33 gauge misc See Rx Instructions Not Applicable TID Qty: 100 Rx Instructions: As directed Discharge Orders: Discharge Order (Routine); Ordered 01/17/24 Ordered By: Rox Byers Activity on Discharge: As tolerated Stand Alone Forms: Patient Portal Discharge page Print Language: Ukrainian Care Plan Goals: See below Health Concerns: Septic shock due to aspiration pneumonia in the setting of drug overdose Acute kidney injury on chronic kidney disease Hypomagnesemia Plan of Treatment: Complete course of antibiotics as prescribed Stopped taking lisinopril until repeat labs/follow-up with Nephrology as outpatient Do not take metformin until outpatient labs/follow-up with PCP dose of tresiba was decreased to 15U. monitor blood sugar closely Call to schedule follow-up with PCP call to schedule follow-up appointment with Nephrology for close monitoring of kidney function Assessment: See discharge summary Patient Instructions: Community Acquired Pneumonia (ED)
--- NOTE | 2024-01-15 13:13 | P.CDIM_ITS ---
PROVIDER RESPONSE TEXT: To clarify, the appropriate diagnosis supported by the clinical indicators: CKD, please provide stage: 3b QUERY TEXT: PHYSICIAN'S DOCUMENTATION REQUEST Date of Query: 01/14/2024 12:32 PM EDT Patient Name: Lazara Driscoll Admit Date: 01/12/2024 Dear Rox Byers, A review of the medical record indicates additional documentation may be needed. Please review below and update the documentation accordingly. Clinical Indicators: Progress notes within the Plan: Acute kidney injury, likely early ATN from septic shock, resolved, ba ck to baseline CKD. Please clarify which of the following accurately represents the patient's stage of CKD if known: CKD, please provide stage 1, 2, 3a, 3b, 4 Other (explain) Clinically unable to determine (explain) Thank you, Kaitlynn Graves, CCS, CDIS Use of terms such as suspected, likely, concern for, or probable (associated with a specific diagnosi s that is being evaluated, monitored, or treated as if it exists) are acceptable and can be coded in the inpatient se tting, when documented at the time of discharge. Please use your independent medical judgment in providing your response. THIS QUERY IS PART OF THE PERMANENT MEDICAL RECORD
[2024-01-15 16:38] LABS: Glucose, Whole Blood 168 mg/dL (60-115)
--- NOTE | 2024-01-15 17:07 | P.PNIM_ITS ---
Subjective Subjective Date of Service: 01/15/24 Interval History: seen and examined this morning follow up for septic shock due to pneumonia breathing improving Review of Systems Review of Systems: Yes all other systems are reviewed and are negative Constitutional Constitutional: Denies chills and Denies fever(s) Physical Exam 2 Vital Signs: Vital Signs: Last Vital Signs Temp 97.2 F 01/15/24 16:20 Pulse 69 01/15/24 16:20 Resp 12 01/15/24 16:20 BP 116/54 L 01/15/24 16:20 Pulse Ox 94 01/15/24 16:20 O2 Del Method Room Air 01/15/24 16:20 O2 Flow Rate 1 01/15/24 04:00 Oxygen Flow Rate 2 01/12/24 01:47 BMI result Body Mass Index 22.3 Const: General: cooperative, comfortable, alert and awake Nutritional Appearance: average body habitus Orientation/consciousness: patient oriented x3 Resp: Other: course breath sounds b/l, no wheeze Effort & Inspection: normal respiratory effort, no respiratory distress and no use of accessory muscles Cardio: Rate: regular rate GI: Inspection: No distended Palpation (GI): Soft to palpation and nontender Neuro: General: patient oriented x3 Extrem: Other: s/p rigth BKA Objective Data Active Medications Albuterol Sulfate (Albuterol Sulfate 90 Mcg 8 Gm Inhaler) 2 puff INHALE Q4H PRN PRN Reason: Respiratory Distress Amlodipine Besylate (Amlodipine Besylate 10 Mg Tablet) 10 mg PO DAILY [facility]; Protocol Last Admin: 01/15/24 08:10 Dose: 10 mg Documented By: KELLY Aspirin (Aspirin Enteric Coated 81 Mg Tablet.Dr) 81 mg PO DAILY [facility] Last Admin: 01/15/24 08:09 Dose: 81 mg Documented By: KELLY Atorvastatin Calcium (Atorvastatin Calcium 40 Mg Tablet) 40 mg PO DAILY [facility] Last Admin: 01/15/24 08:09 Dose: 40 mg Documented By: KELLY Bupropion HCl (Bupropion Hcl Xl 300 Mg Tab.Er.24h) 300 mg PO DAILY [facility] Last Admin: 01/15/24 08:10 Dose: 300 mg Documented By: KELLY Fluticasone Propionate (Fluticasone Propionate 100 Mcg Blst.W.Dev) 1 puff INHALE RBID [facility] Last Admin: 01/15/24 07:41 Dose: 1 puff Documented By: MARIO Gabapentin (Gabapentin 600 Mg Tablet) 600 mg PO TID [facility] Last Admin: 01/15/24 15:41 Dose: 600 mg Documented By: KELLY Glucose (Glucose Gel 15 Gm Gel..Gram.) 15 gm PO Q15M PRN; Protocol PRN Reason: per Hypoglycemia Standing Ord. Heparin Sodium (Porcine) (Heparin Sodium,Porcine 5,000 Unit/Ml Vial) 5,000 unit SUBCUT Q8H [facility] Last Admin: 01/15/24 15:41 Dose: 5,000 unit Documented By: KELLY Dextrose (D10) 250 mls @ 750 mls/hr IV Q15M PRN PRN Reason: per Hypoglycemia Standing Ord. Last Infusion: 01/11/24 18:27 Dose: Infused Documented By: KENNEY Piperacillin Sod/Tazobactam (Sod 4.5 gm/ Sodium Chloride) 100 mls @ 200 mls/hr IV Q8H [facility] Last Infusion: 01/15/24 14:02 Dose: Infused Documented By: KELLY Dextrose (D10) 250 mls @ 750 mls/hr IV Q15M PRN; Protocol PRN Reason: per Hypoglycemia Standing Ord. Insulin Glargine (Insulin Glargine,Hum.Rec.Anlog 100 Unit/Ml 10 Ml Vial) 10 unit SUBCUT BEDTIME [facility] Last Admin: 01/14/24 21:12 Dose: 10 unit Documented By: CARMELO Insulin Human Lispro (Insulin Lispro 100 Unit/Ml 3 Ml Vial) 0 unit SUBCUT QIDACHS [facility]; Protocol Last Admin: 01/15/24 12:21 Dose: 4 unit Documented By: KELLY Methadone HCl (Methadone Hcl 20 Mg/2 Ml Oral.Conc) 130 mg PO DAILY [facility] Last Admin: 01/15/24 08:09 Dose: 130 mg Documented By: KELLY Metoprolol Succinate (Metoprolol Succinate Er 25 Mg Tab.Er.24h) 25 mg PO DAILY [facility]; Protocol Last Admin: 01/15/24 07:39 Dose: Not Given Documented By: KELLY Non-Admin Reason: HR below 60 Mirtazapine (Mirtazapine 7.5 Mg Tablet) 7.5 mg PO BEDTIME [facility] Last Admin: 01/14/24 21:11 Dose: 7.5 mg Documented By: CARMELO Nicotine (Nicotine 14 Mg Patch.Td24) 14 mg TRANSDERMA DAILY [facility] Last Admin: 01/15/24 08:10 Dose: 14 mg Documented By: KELLY Omeprazole (Omeprazole 20 Mg Capsule.Dr) 20 mg PO DAILY@0630 [facility] Last Admin: 01/15/24 06:25 Dose: 20 mg Documented By: CARMELO Sodium Chloride (0.9 % Sodium Chloride Flush 3 Ml Syringe) 3 ml IVFLUSH QSHIFT [facility] Last Admin: 01/15/24 08:12 Dose: 3 ml Documented By: KELLY Zolpidem Tartrate (Zolpidem Tartrate 5 Mg Tablet) 10 mg PO BEDTIME PRN PRN Reason: Sleep Last Admin: 01/14/24 22:40 Dose: 10 mg Documented By: CARMELO Labs 01/15/24 06:02 01/15/24 06:02 Labs: Laboratory Results - last 24 hr 01/14/24 01/14/24 01/15/24 20:19 20:55 06:02 MCV 91.4 MCH 28.9 MCHC 31.6 RDW 16.4 H Plt Count 199 MPV 10.7 Immature Gran % (Auto) 0.3 Neut % (Auto) 67.5 Lymph % (Auto) 23.2 [place] % (Auto) 7.8 Eos % (Auto) 0.9 Baso % (Auto) 0.3 Lymph # (Auto) 1.6 [place] # (Auto) 0.5 Eos # (Auto) 0.1 Baso # (Auto) 0.0 Abs Immat Gran (auto) 0.02 Absolute Neuts (auto) 4.6 Absolute Nucleated RBC 0.000 Nucleated RBC % (auto) 0.0 Anion Gap 13 Estim Creat Clear Calc 32.6 Estimated GFR 35 POC Glucose 263 H Random Glucose 364 H* Calcium 8.9 Magnesium 1.6 Random Vancomycin 15.5 01/15/24 01/15/24 01/15/24 07:54 11:01 16:33 MCV MCH MCHC RDW Plt Count MPV Immature Gran % (Auto) Neut % (Auto) Lymph % (Auto) [place] % (Auto) Eos % (Auto) Baso % (Auto) Lymph # (Auto) [place] # (Auto) Eos # (Auto) Baso # (Auto) Abs Immat Gran (auto) Absolute Neuts (auto) Absolute Nucleated RBC Nucleated RBC % (auto) Anion Gap Estim Creat Clear Calc Estimated GFR POC Glucose 325 H 236 H 168 H Random Glucose Calcium Magnesium Random Vancomycin Microbiology Microbiology Results: Microbiology 01/11/24 18:04 Urine Culture - Final Urine Catheterized - Straight Catheter Bhavya glabrata Assessment and Plan (1) Septic shock: Status: Acute (2) Aspiration pneumonia: Status: Acute Plan This is a 63 y/o female with history of opioid dependence, DM, HTN, HLD, recent hospitalization (12/30 to 01/03) for inflammatory PNA/copd exacerbation and acute hypoxic respiratory failure, unclear if she took antibiotics. She was admitted through the ICU with acute hypoxic respiratory failure and septic shock presumed to be related to aspiration pneumonia Acute hypoxic respiratory failure d/t PNA, possibly aspiration type treat underlying PNA Wean oxygen as tolerated Septic shock d/t aspiration pneumonia steming from drug use, shock resolved. continue IV Zosyn and Vanco, DC Vanco given no MRSA Blood cultures negative seen by speech - see notes for details Metabolic encephalopathy--due to above, and drugs--resolved Acute kidney injury, likely early ATN from septic shock, resolved, back to baseline CKD ( baseline not well established) Nephro following -outpatient follow up with nephro hold lisinopril Hypomagnesemia Replace Follow levels Type 2 diabetes mellitus, with hypoglycemia now resolved. BS trending up will resume Lantus at 10U (on tresiba at baseline) hold Metformin (should be avoided d/t CKD) -SSI - diabetic diet - A1C = 7 Substance use disorder/opioid dependence (+cocain, fentanyl, methadone) -continue Methadone -addiction med consult -counseled on cessation. HLD--continue Lipitor HTN--septic shock and hypotension resolved -restart Norvasc 10, Toprol 25.. Hold Lisinopril 40 for ines Tobacco use disorder Counseled, NRT Mood continue baseline meds DVT prophylaxis: Heparin Code status: Full Need for inpatient: management for severe sepsis, septic shock needing needing vasopressors and now on broad spec Abx pt evaluation prior to discharge Quality Stroke Does the patient have a stroke diagnosis?: No VTE Prior VTE?: No VTE Risk Level:: Medical - moderate - high VTE Device Contraindication: N/A - Device Ordered VTE Drug Contraindication: N/A - Med Ordered
[2024-01-15 21:23] LABS: Glucose, Whole Blood 277 mg/dL (60-115)
[2024-01-15] MEDS: Mirtazapine 7.5 MG TABLET PO (22:32)
[2024-01-15] MEDS: Insulin Glargine,Hum.rec.anlog 100 UNIT/ML 10 ML VIAL 10 UNIT SUBCUT (22:32)
[2024-01-16] VITALS (9 sets, daily range): BP systolic 97–125; BP diastolic 54–60; PULSE 57–69; RESP 16–20; TEMP 36.6–37.6; O2SAT 92–98; BMI 23.5
[2024-01-16] MEDS: Zolpidem Tartrate 5 MG TABLET 10 MG PO (00:20)
[2024-01-16] MEDS: Piperacillin Sodium/Tazobactam 4.5 GM in 0.9 % Sodium Chloride 100 ML IV ×2 (02:48→09:35)
[2024-01-16] MEDS: Heparin Sodium,Porcine 5,000 UNIT/ML VIAL 5000 UNIT SUBCUT ×3 (06:12→21:02)
[2024-01-16] MEDS: Omeprazole 20 MG CAPSULE.DR PO (06:13)
[2024-01-16 07:04] LABS: MANUAL DIFF FLAG NO
[2024-01-16 07:16] LABS: Basophils Percent Auto 0.5 % (0-2); Eosinophils Absolute Auto 0.1 X10*3/uL (0.0-0.4); Eosinophils Percent Auto 1.3 % (0-4); Hematocrit 26.9 % (37.0-47.0); Hemoglobin 8.7 g/dl (12.0-16.0); Imm Gran Abs Auto 0.02 X10*3/uL (0.00-0.03); Imm Gran Pct Auto 0.3 % (0.0-0.4); Lymphocytes Absolute Auto 2.1 X10*3/uL (1.2-4.9); Lymphocytes Percent Auto 26.5 % (20-40); Mean Corpuscular HGB Conc 32.3 g/dl (31.0-35.0); Mean Corpuscular Hemoglobin 29.4 pg (27.0-33.0); Mean Corpuscular Volume 90.9 fL (80.0-98.0); Monocytes Absolute Auto 0.6 X10*3/uL (0.1-1.2); Monocytes Percent Auto 7.9 % (2-11); Neutrophils Percent Auto 63.5 % (45-73); Platelet Count 224 X10*3/uL (160-400); Red Blood Count 2.96 X10*6/uL (4.20-5.50); Red Cell Distribution Width 16.6 % (11.0-16.0); White Blood Count 7.8 X10*3/uL (4.8-10.8)
[2024-01-16 07:42] LABS: Glucose, Whole Blood 172 mg/dL (60-115)
[2024-01-16 07:46] LABS: Anion Gap 12 (12-20); Blood Urea Nitrogen 20 mg/dL (9-16); Calcium 9.6 mg/dL (8.4-10.2); Carbon Dioxide 22 mmol/L (22-29); Chloride 108 mmol/L (96-108); Creatinine Clr Calc Pharmacy 34.8; Estimated Glomerular Filt Rate 38; Glucose Random 171 mg/dL (60-115); Magnesium 1.7 mg/dL (1.6-2.6); Potassium 4.2 mmol/L (3.3-5.1); Sodium 138 mmol/L (135-145)
[2024-01-16] MEDS: 0.9 % Sodium Chloride Flush 3 ML SYRINGE IVFLUSH ×3 (07:46→23:41)
[2024-01-16] MEDS: Insulin Lispro 100 UNIT/ML 3 ML VIAL SUBCUT ×3 (07:46→21:17)
[2024-01-16] MEDS: Fluticasone Propionate 100 MCG BLST.W.DEV 1 PUFF INHALE ×2 (07:51→20:16)
[2024-01-16] MEDS: Metoprolol Succinate ER 25 MG TAB.ER.24H PO (09:29)
[2024-01-16] MEDS: Atorvastatin Calcium 40 MG TABLET PO (09:29)
[2024-01-16] MEDS: Aspirin Enteric Coated 81 MG TABLET.DR PO (09:29)
[2024-01-16] MEDS: Gabapentin 600 MG TABLET PO ×3 (09:29→21:01)
[2024-01-16] MEDS: buPROPion HCl XL 300 MG TAB.ER.24H PO (09:29)
[2024-01-16] MEDS: methADONE HCl 20 MG/2 ML ORAL.CONC 130 MG PO (09:29)
[2024-01-16] MEDS: amLODIPine Besylate 10 MG TABLET PO (09:30)
[2024-01-16] MEDS: Nicotine 14 MG PATCH.TD24 TRANSDERMA (09:33)
[2024-01-16 11:11] LABS: Glucose, Whole Blood 253 mg/dL (60-115)
--- NOTE | 2024-01-16 11:37 | HO.PM.IMPN ---
Subjective Subjective Date of Service: 01/16/24 Interval History: seen and examined this morning No overnight events No shortness of breath, no cough, no fever. No specific complaints Review of Systems Review of Systems: Yes all other systems are reviewed and are negative Constitutional Constitutional: Denies chills and Denies fever(s) ENT Ears, Nose, Mouth, and Throat: Denies dizziness Cardiovascular Cardiovascular: Denies chest pain, Denies palpitations and Denies dyspnea Respiratory Respiratory: Denies cough and Denies dyspnea Neurologic Neurologic: Denies dizziness Endocrine Endocrine: Denies palpitations Physical Exam Vital Signs: Vital Signs: Last Vital Signs Temp 97.8 F 01/16/24 07:52 Pulse 61 01/16/24 07:53 Resp 16 01/16/24 07:53 BP 125/60 01/16/24 07:52 Pulse Ox 96 01/16/24 07:52 O2 Del Method Room Air 01/16/24 07:52 O2 Flow Rate 1 01/15/24 04:00 Oxygen Flow Rate 2 01/12/24 01:47 BMI result Body Mass Index 23.5 Const: General: cooperative, comfortable, alert and awake Nutritional Appearance: average body habitus Orientation/consciousness: patient oriented x3 Resp: Effort & Inspection: normal respiratory effort, no respiratory distress and no use of accessory muscles Cardio: Rate: regular rate GI: Inspection: No distended Palpation (GI): Soft to palpation and nontender Neuro: General: patient oriented x3 Extrem: Other: s/p rigth BKA Objective Data Active Medications Albuterol Sulfate (Albuterol Sulfate 90 Mcg 8 Gm Inhaler) 2 puff INHALE Q4H PRN PRN Reason: Respiratory Distress Amlodipine Besylate (Amlodipine Besylate 10 Mg Tablet) 10 mg PO DAILY REPLACED BY [facility]; Protocol Last Admin: 01/16/24 09:30 Dose: 10 mg Documented By: ODALIS Aspirin (Aspirin Enteric Coated 81 Mg Tablet.Dr) 81 mg PO DAILY REPLACED BY [facility] Last Admin: 01/16/24 09:29 Dose: 81 mg Documented By: ODALIS Atorvastatin Calcium (Atorvastatin Calcium 40 Mg Tablet) 40 mg PO DAILY REPLACED BY [facility] Last Admin: 01/16/24 09:29 Dose: 40 mg Documented By: ODALIS Bupropion HCl (Bupropion Hcl Xl 300 Mg Tab.Er.24h) 300 mg PO DAILY REPLACED BY [facility] Last Admin: 01/16/24 09:29 Dose: 300 mg Documented By: ODALIS Fluticasone Propionate (Fluticasone Propionate 100 Mcg Blst.W.Dev) 1 puff INHALE RBID REPLACED BY [facility] Last Admin: 01/16/24 07:51 Dose: 1 puff Documented By: KAITLIN Gabapentin (Gabapentin 600 Mg Tablet) 600 mg PO TID REPLACED BY [facility] Last Admin: 01/16/24 09:29 Dose: 600 mg Documented By: ODALIS Glucose (Glucose Gel 15 Gm Gel..Gram.) 15 gm PO Q15M PRN; Protocol PRN Reason: per Hypoglycemia Standing Ord. Heparin Sodium (Porcine) (Heparin Sodium,Porcine 5,000 Unit/Ml Vial) 5,000 unit SUBCUT Q8H REPLACED BY [facility] Last Admin: 01/16/24 06:12 Dose: 5,000 unit Documented By: RENETTA Dextrose (D10) 250 mls @ 750 mls/hr IV Q15M PRN PRN Reason: per Hypoglycemia Standing Ord. Last Infusion: 01/11/24 18:27 Dose: Infused Documented By: KENNEY Piperacillin Sod/Tazobactam (Sod 4.5 gm/ Sodium Chloride) 100 mls @ 200 mls/hr IV Q8H REPLACED BY [facility] Last Infusion: 01/16/24 10:48 Dose: Infused Documented By: ODALIS Dextrose (D10) 250 mls @ 750 mls/hr IV Q15M PRN; Protocol PRN Reason: per Hypoglycemia Standing Ord. Insulin Glargine (Insulin Glargine,Hum.Rec.Anlog 100 Unit/Ml 10 Ml Vial) 10 unit SUBCUT BEDTIME REPLACED BY [facility] Last Admin: 01/15/24 22:32 Dose: 10 unit Documented By: RENETTA Insulin Human Lispro (Insulin Lispro 100 Unit/Ml 3 Ml Vial) 0 unit SUBCUT QIDACHS REPLACED BY [facility]; Protocol Last Admin: 01/16/24 07:46 Dose: 2 unit Documented By: ODALIS Methadone HCl (Methadone Hcl 20 Mg/2 Ml Oral.Conc) 130 mg PO DAILY REPLACED BY [facility] Last Admin: 01/16/24 09:29 Dose: 130 mg Documented By: ODALIS Metoprolol Succinate (Metoprolol Succinate Er 25 Mg Tab.Er.24h) 25 mg PO DAILY REPLACED BY [facility]; Protocol Last Admin: 01/16/24 09:29 Dose: 25 mg Documented By: ODALIS Mirtazapine (Mirtazapine 7.5 Mg Tablet) 7.5 mg PO BEDTIME REPLACED BY [facility] Last Admin: 01/15/24 22:32 Dose: 7.5 mg Documented By: RENETTA Nicotine (Nicotine 14 Mg Patch.Td24) 14 mg TRANSDERMA DAILY REPLACED BY [facility] Last Admin: 01/16/24 09:33 Dose: 14 mg Documented By: ODALIS Omeprazole (Omeprazole 20 Mg Capsule.Dr) 20 mg PO DAILY@0630 REPLACED BY [facility] Last Admin: 01/16/24 06:13 Dose: 20 mg Documented By: RENETTA Sodium Chloride (0.9 % Sodium Chloride Flush 3 Ml Syringe) 3 ml IVFLUSH QSHIFT REPLACED BY [facility] Last Admin: 01/16/24 07:46 Dose: 3 ml Documented By: ODALIS Zolpidem Tartrate (Zolpidem Tartrate 5 Mg Tablet) 10 mg PO BEDTIME PRN PRN Reason: Sleep Last Admin: 01/16/24 00:20 Dose: 10 mg Documented By: RENETTA Labs 01/16/24 06:42 01/16/24 06:42 Labs: Laboratory Results - last 24 hr 01/15/24 01/15/24 01/15/24 11:01 16:33 21:00 MCV MCH MCHC RDW Plt Count MPV Immature Gran % (Auto) Neut % (Auto) Lymph % (Auto) Fergus % (Auto) Eos % (Auto) Baso % (Auto) Lymph # (Auto) [place] # (Auto) Eos # (Auto) Baso # (Auto) Abs Immat Gran (auto) Absolute Neuts (auto) Absolute Nucleated RBC Nucleated RBC % (auto) Anion Gap Estim Creat Clear Calc Estimated GFR POC Glucose 236 H 168 H 277 H Random Glucose Calcium Magnesium 01/16/24 01/16/24 01/16/24 06:42 07:17 10:57 MCV 90.9 MCH 29.4 MCHC 32.3 RDW 16.6 H Plt Count 224 MPV 11.0 Immature Gran % (Auto) 0.3 Neut % (Auto) 63.5 Lymph % (Auto) 26.5 Fergus % (Auto) 7.9 Eos % (Auto) 1.3 Baso % (Auto) 0.5 Lymph # (Auto) 2.1 Fergus # (Auto) 0.6 Eos # (Auto) 0.1 Baso # (Auto) 0.0 Abs Immat Gran (auto) 0.02 Absolute Neuts (auto) 5.0 Absolute Nucleated RBC 0.000 Nucleated RBC % (auto) 0.0 Anion Gap 12 Estim Creat Clear Calc 34.8 Estimated GFR 38 POC Glucose 172 H 253 H Random Glucose 171 H Calcium 9.6 D Magnesium 1.7 Microbiology Microbiology Results: Microbiology 01/11/24 18:04 Urine Culture - Final Urine Catheterized - Straight Catheter Bhavya glabrata Assessment and Plan (1) Septic shock: Status: Acute (2) Metabolic encephalopathy: Status: Acute (3) Aspiration pneumonia: Status: Acute (4) Opioid use disorder: Status: Acute Plan This is a 63 y/o female with history of opioid dependence, DM, HTN, HLD, recent hospitalization (12/30 to 01/03) for inflammatory PNA/copd exacerbation and acute hypoxic respiratory failure, unclear if she took antibiotics. She was admitted through the ICU with acute hypoxic respiratory failure and septic shock presumed to be related to aspiration pneumonia Acute hypoxic respiratory failure d/t PNA, possibly aspiration type treat underlying PNA Weaned to room air Septic shock d/t aspiration pneumonia stemming from drug use, shock resolved. treated with IV Zosyn. DC Vanco given no MRSA. will transition to po augmentin Blood cultures negative seen by speech - see notes for details Metabolic encephalopathy due to above, and drugs--resolved Acute kidney injury, likely early ATN from septic shock, resolved, back to baseline CKD ( baseline not well established) Nephro following -outpatient follow up with nephro hold lisinopril upon discharge until follow up with nephrology Hypomagnesemia Resolved with replacement Type 2 diabetes mellitus, with hypoglycemia now resolved. BS trending up will resume Lantus at 10U (on tresiba at baseline) hold Metformin (should be avoided d/t CKD) -SSI - diabetic diet - A1C = 7 Substance use disorder/opioid dependence (+cocaine, fentanyl, methadone) -continue Methadone -addiction med consult -counseled on cessation. HLD- continue Lipitor HTN--septic shock and hypotension resolved -restart Norvasc 10, Toprol 25.. Hold Lisinopril 40 for ines Tobacco use disorder Counseled, NRT Mood continue baseline meds DVT prophylaxis: Heparin Code status: Full Need for inpatient: management for severe sepsis, septic shock needing needing vasopressors and now on broad spec Abx dispo - home with services tomorrow Quality Stroke Does the patient have a stroke diagnosis?: No VTE Prior VTE?: No VTE Risk Level:: Medical - moderate - high VTE Device Contraindication: N/A - Device Ordered VTE Drug Contraindication: N/A - Med Ordered
[2024-01-16 16:49] LABS: Glucose, Whole Blood 108 mg/dL (60-115)
[2024-01-16] MEDS: Amoxicillin/Potassium Clav 875 MG TABLET PO (21:01)
[2024-01-16] MEDS: Mirtazapine 7.5 MG TABLET PO (21:02)
[2024-01-16 21:13] LABS: Glucose, Whole Blood 222 mg/dL (60-115)
[2024-01-16] MEDS: Insulin Glargine,Hum.rec.anlog 100 UNIT/ML 10 ML VIAL 10 UNIT SUBCUT (21:17)
[2024-01-17] VITALS: BP 124/59; PULSE 61; RESP 16; TEMP 36.9; O2SAT 94
[2024-01-17 03:40] VITALS: BP 137/64; PULSE 59; RESP 18; TEMP 37.1; O2SAT 97
[2024-01-17] MEDS: Heparin Sodium,Porcine 5,000 UNIT/ML VIAL 5000 UNIT SUBCUT (05:43)
[2024-01-17] MEDS: Omeprazole 20 MG CAPSULE.DR PO (05:43)
[2024-01-17 06:00] VITALS: BMI 22.7
[2024-01-17 07:52] LABS: Glucose, Whole Blood 159 mg/dL (60-115)
[2024-01-17 08:00] VITALS: BP 166/74; PULSE 64; RESP 20; TEMP 37.1; O2SAT 96
[2024-01-17 08:03] VITALS: PULSE 68; RESP 18
[2024-01-17] MEDS: Fluticasone Propionate 100 MCG BLST.W.DEV 1 PUFF INHALE (08:03)
[2024-01-17] MEDS: amLODIPine Besylate 10 MG TABLET PO (08:31)
[2024-01-17] MEDS: Atorvastatin Calcium 40 MG TABLET PO (08:31)
[2024-01-17] MEDS: buPROPion HCl XL 300 MG TAB.ER.24H PO (08:31)
[2024-01-17] MEDS: Gabapentin 600 MG TABLET PO (08:31)
[2024-01-17] MEDS: Amoxicillin/Potassium Clav 875 MG TABLET PO (08:31)
[2024-01-17] MEDS: Aspirin Enteric Coated 81 MG TABLET.DR PO (08:31)
[2024-01-17] MEDS: Insulin Lispro 100 UNIT/ML 3 ML VIAL SUBCUT ×2 (08:32→11:53)
[2024-01-17] MEDS: Metoprolol Succinate ER 25 MG TAB.ER.24H PO (08:32)
[2024-01-17] MEDS: 0.9 % Sodium Chloride Flush 3 ML SYRINGE IVFLUSH (08:32)
[2024-01-17] MEDS: Nicotine 14 MG PATCH.TD24 TRANSDERMA (08:32)
[2024-01-17] MEDS: methADONE HCl 20 MG/2 ML ORAL.CONC 130 MG PO (08:33)
--- NOTE | 2024-01-17 09:38 | W.MHC.F2F ---
Service Date Service Date: 01/17/24 Encounter Date of encounter: 01/17/24 Reasons for Services Signs and symptoms assessed: Needs nursing home for blood sugar monitoring and physical therapy services Reason for nursing home: diabetic teaching, medication management and teach disease management Reason for physical therapy: home safety and mobility and therapeutic exercises Overseeing Care: Kevon Herring Homebound: Leaving the home is medically contraindicated at this time without the asist of a device and/or another person due th the listed conditions above and below. Reason homebound: weakness related to hospital stay Certification: Based on the above findings, I certify that this patient is confined to the home and needs intermittent nursing home care, physical therapy and/or speech therapy, or continues to need occupational therapy. The patient is under my care, and I have initiated the establishment of the plan of care. The patient will be followed by a physician who will periodically review the plan of care. Time Spent With Patient Time: Total time managing care of this patient today ____ minutes.
--- NOTE | 2024-01-17 10:30 | MHC.CM.PN ---
PT CLEARED TO DC HOME WITH RESUMPTION OF SERVICES CM SPOKE TO DRAKE AT [facility], SHE CONFIRMS THEY ARE ABLE TO GET PTS METHADONE ON THURSDAY, SO WOULD JUST NEED TO RECEIVE HER DOSE PRIOR TO DC ON THURSDAY. LAST DOSE LETTER, F2F AND DCS SENT TO [facility]IA [facility] REPORTS HER RIDE IS COMING AROUND LUNCH TIME
[2024-01-17 11:36] LABS: Glucose, Whole Blood 203 mg/dL (60-115)
== END 2024-01-17 12:00 | disposition home health service (06) | DRG 871 ==
LOC: HO.ED 01-12 01:32 → HO.EDOVER 01-12 02:02 → HO.ICU 01-12 02:12 → HO.IMC 01-12 19:38
PROVIDERS: Internal Medicine; Internal Medicine Critical Care Medicine; Physician Assistant; Admitting Provider Registered Nurse Community Health; Emergency Provider Emergency Medicine; PCP Internal Medicine; Visit Provider Physician Assistant Medical
DX: A41.9 Sepsis, unspecified organism (principal); G92.8 Other toxic encephalopathy; J69.0 Pneumonitis due to inhalation of food and vomit; R65.21 Severe sepsis with septic shock; N17.0 Acute kidney failure with tubular necrosis; F11.20 Opioid dependence, uncomplicated; T40.411A Poisoning by fentanyl or fentanyl analogs, accidental (unintentional), initial encounter; T40.3X1A Poisoning by methadone, accidental (unintentional), initial encounter; T40.5X1A Poisoning by cocaine, accidental (unintentional), initial encounter; F19.10 Other psychoactive substance abuse, uncomplicated; E11.649 Type 2 diabetes mellitus with hypoglycemia without coma; E83.42 Hypomagnesemia; I12.9 Hypertensive chronic kidney disease with stage 1 through stage 4 chronic kidney disease, or unspecified chronic kidney disease; N18.32 Chronic kidney disease, stage 3b; E11.22 Type 2 diabetes mellitus with diabetic chronic kidney disease; Z86.711 Personal history of pulmonary embolism; Z89.511 Acquired absence of right leg below knee; Z79.4 Long term (current) use of insulin; Z79.01 Long term (current) use of anticoagulants; Z79.82 Long term (current) use of aspirin; Z79.84 Long term (current) use of oral hypoglycemic drugs; Z79.899 Other long term (current) drug therapy
CPT/HCPCS: 36415; 71045; 74176; 80048; 80053; 80202; 80307; 81001; 82010; 82140; 82550; 82803; 82947; 83036; 83605; 83735; 83880; 84100; 84439; 84443; 84484; 85025; 86850; 86900; 86901; 86923; 87040; 87086; 87088; 92526; 92610; 93005; 94640; 97162; 99285; C1758; J0613; J0696; J1630; J1644; J1940; J2060; J2543; J3370; J3475; P9016; P9047

== ENCOUNTER → 2024-01-11 17:34 | Outpatient (BNV) | payer MEDICARE, MEDICAID, SELFPAY | PROVIDERS: Admitting Provider Registered Nurse Community Health; Emergency Provider Emergency Medicine; Visit Provider Internal Medicine Cardiovascular Disease | DX: I95.9 Hypotension, unspecified (principal); R94.31 Abnormal electrocardiogram [ECG] [EKG] | CPT/HCPCS: 93010 ==

== ENCOUNTER 2024-01-12 01:47 | Outpatient (BNV) | payer MEDICARE, MEDICAID, SELFPAY | END 2024-01-14 10:37 | PROVIDERS: Admitting Provider Registered Nurse Community Health; Emergency Provider Emergency Medicine; Visit Provider Internal Medicine Cardiovascular Disease | DX: R00.1 Bradycardia, unspecified (principal) | CPT/HCPCS: 93010 ==

== ENCOUNTER 2024-01-12 01:47 | Outpatient (BNV) | payer MEDICARE, MEDICAID, SELFPAY | END 2024-01-15 10:37 | PROVIDERS: Admitting Provider Registered Nurse Community Health; Emergency Provider Emergency Medicine; Visit Provider Internal Medicine Cardiovascular Disease | DX: R00.1 Bradycardia, unspecified (principal) | CPT/HCPCS: 93010 ==

== ENCOUNTER 2024-01-12 01:47 | Outpatient (BNV) | payer MEDICARE, MEDICAID, SELFPAY | END 2024-01-12 12:20 | PROVIDERS: Admitting Provider Registered Nurse Community Health; Emergency Provider Emergency Medicine; Visit Provider Internal Medicine Cardiovascular Disease | DX: R94.31 Abnormal electrocardiogram [ECG] [EKG] (principal) | CPT/HCPCS: 93010 ==

== ENCOUNTER 2024-01-12 01:47 | Outpatient (BNV) | payer MEDICARE, MEDICAID, SELFPAY | END 2024-01-13 10:37 | PROVIDERS: Admitting Provider Registered Nurse Community Health; Emergency Provider Emergency Medicine; Visit Provider Internal Medicine Cardiovascular Disease | DX: R94.31 Abnormal electrocardiogram [ECG] [EKG] (principal) | CPT/HCPCS: 93010 ==

== ENCOUNTER → 2024-01-12 01:47 | Outpatient (BNV) | payer MEDICARE, MEDICAID, SELFPAY | PROVIDERS: Admitting Provider Registered Nurse Community Health; Emergency Provider Emergency Medicine; Visit Provider Registered Nurse Community Health | DX: A41.9 Sepsis, unspecified organism (principal); R65.21 Severe sepsis with septic shock; J69.0 Pneumonitis due to inhalation of food and vomit; G93.41 Metabolic encephalopathy; J96.01 Acute respiratory failure with hypoxia; N17.9 Acute kidney failure, unspecified; E16.2 Hypoglycemia, unspecified | CPT/HCPCS: 99291 ==

== ENCOUNTER → 2024-01-12 01:47 | Outpatient (BNV) | payer MEDICARE, MEDICAID, SELFPAY | PROVIDERS: Admitting Provider Registered Nurse Community Health; Emergency Provider Emergency Medicine; Visit Provider Internal Medicine Hypertension Specialist | DX: N17.9 Acute kidney failure, unspecified (principal) | CPT/HCPCS: 99222; 99232 ==

== ENCOUNTER → 2024-01-12 01:47 | Outpatient (BNV) | payer MEDICARE, MEDICAID, SELFPAY | PROVIDERS: Admitting Provider Registered Nurse Community Health; Emergency Provider Emergency Medicine; Visit Provider Internal Medicine | DX: N17.9 Acute kidney failure, unspecified (principal); G93.41 Metabolic encephalopathy; J69.0 Pneumonitis due to inhalation of food and vomit; A41.9 Sepsis, unspecified organism; R65.21 Severe sepsis with septic shock | CPT/HCPCS: 99232; 99239; G0180 ==

== ENCOUNTER 2024-01-20 16:55 | Inpatient (IN) | payer MEDICARE, MEDICAID, SELFPAY ==
[2024-01-20] VITALS (12 sets, daily range): BP systolic 99–152; BP diastolic 47–76; PULSE 66–96; RESP 18–34; TEMP 35.3–37.9; O2SAT 68–92; BMI 28.9
--- NOTE | ~2024-01-20 | XR_ITS ---
EXAMINATION: PORTABLE CHEST 1 VIEW CLINICAL INFORMATION: hypoxia. COMPARISON: 01/11/2024. TECHNIQUE: Portable frontal view of the chest was obtained. FINDINGS: Lungs are well expanded. There is worsened patchy bilateral airspace disease now more densely opacifying both lung bases with additional scattered airspace disease which appears more similar to the prior studies. No significant effusion, edema, or pneumothorax. Cardiac silhouette remains within normal limits for size for this technique with vascular calcification in the aorta. Extensive degenerative changes in the left shoulder and chronic appearing changes in the spine and right shoulder XR/XR chest 1V IMPRESSION: Worsened patchy bilateral airspace disease now more densely opacifying both lung bases. Infectious etiology would be suspected in the acute setting. Aspiration could have this appearance and should be clinically correlated.
--- NOTE | ~2024-01-20 | XR_ITS ---
EXAMINATION: XR CHEST CLINICAL INFORMATION: Central line placement. Intubation. COMPARISON: 01/20/2024. TECHNIQUE: Frontal view of the chest was obtained. FINDINGS: The cardiomediastinal silhouette is stable. Diffuse bilateral infiltrates are again seen. There are no significant pleural effusions. There is an endotracheal tube seen in good position approximately 3.1 cm above the jabeir. A gastric tube extends into left upper quadrant also in good position. A right central line is at the lower SVC/right atrial junction. There is no pneumothorax. The bony structures are osteopenic. The soft tissues are unremarkable. XR/XR chest 1V IMPRESSION: 1. Lines and tubes in good position as described above. 2. Diffuse bilateral infiltrates are again seen, similar to the previous study. 3. No pneumothorax.
--- NOTE | ~2024-01-20 | NM_ITS ---
PULMONARY PERFUSION ONLY STUDY: CLINICAL INDICATION: CVA hypoxia. History of PE. PROCEDURE: Following the intravenous administration of 4.0 millicuries technetium 99m MAA, images of the chest were obtained in multiple projections using a gamma scintiphotographic camera. COMPARISON: Chest radiograph done on the same day and prior perfusion only scintigraphic images done on 01/01/2024. Chest x-ray (01/21/2024): Bilateral multilobar predominantly bilateral perihilar and lower lobar and right upper lobar airspace opacities are present. PERFUSION IMAGES: Heterogeneous perfusion is noted bilaterally without evidence of any definite large segmental perfusion defect on either side. When compared to the prior study dated 01/01/2024, previously documented right upper lobar segmental perfusion defect appears significantly less pronounced on the current study. NM/NM pul perfusion IMPRESSION: Based on perfusion only modified PIOPED 2 criteria, PE is considered absent.
--- NOTE | 2024-01-20 17:11 | ECG_ITS ---
Test Reason : DKA Blood Pressure : / mmHG Vent. Rate : 068 BPM Atrial Rate : 068 BPM P-R Int : 144 ms QRS Dur : 088 ms QT Int : 422 ms P-R-T Axes : 057 -03 022 degrees QTc Int : 448 ms Normal sinus rhythm Minimal voltage criteria for LVH, may be normal variant ( David product ) Borderline ECG When compared with ECG of 15-JAN-2024 07:50, T wave amplitude has decreased in Anterior leads Referred By: Alon Armando Electronically Signed By:KYAW ANGELES MD
[2024-01-20 17:35] LABS: MANUAL DIFF FLAG NO
[2024-01-20 17:40] LABS: Basophils Percent Auto 0.2 % (0-2); Eosinophils Percent Auto 0.2 % (0-4); Hematocrit 29.9 % (37.0-47.0); Hemoglobin 9.7 g/dl (12.0-16.0); Imm Gran Abs Auto 0.08 X10*3/uL (0.00-0.03); Imm Gran Pct Auto 0.6 % (0.0-0.4); Lymphocytes Percent Auto 7.3 % (20-40); Mean Corpuscular HGB Conc 32.4 g/dl (31.0-35.0); Mean Corpuscular Volume 89.5 fL (80.0-98.0); Mean Platelet Volume 11.4 fL (9.4-12.3); Monocytes Absolute Auto 0.8 X10*3/uL (0.1-1.2); Monocytes Percent Auto 5.9 % (2-11); Neutrophils Absolute Auto 11.3 x10*3/uL (2.0-8.3); Neutrophils Percent Auto 85.8 % (45-73); Platelet Count 338 X10*3/uL (160-400); Red Blood Count 3.34 X10*6/uL (4.20-5.50); Red Cell Distribution Width 15.9 % (11.0-16.0); White Blood Count 13.1 X10*3/uL (4.8-10.8)
[2024-01-20 17:42] LABS: INTERNATIONAL NORM RATIO 1.1 (0.9-1.1); Prothrombin Time 13.7 SEC (11.1-13.3)
[2024-01-20 17:46] LABS: VBG Base Excess -5.3 mmol/L; VBG HCO3 19 mmol/L (22-26); VBG pCO2 36 mmHg; VBG pH 7.34 (7.32-7.43); VBG pO2 43 mmHg
--- NOTE | 2024-01-20 17:48 | ED_ITS ---
HPI - General Adult General Chief complaint: General Medical Stated complaint: hypoglycemia,still unresponsive, poc now 160 Time Seen by Provider: 01/20/24 17:11 Source: patient, EMS, RN notes reviewed and old records reviewed Mode of arrival: EMS Limitations: no limitations History of Present Illness ED Provider: Prabha HPI narrative: 64-year-old female past medical history significant for aspiration pneumonia, COPD, osteomyelitis, diabetes, peripheral artery disease presents for evaluation of unresponsiveness Apparently the patient's home health aide called EMS as the patient was unresponsive just prior to arrival. EMS found the patient is to have a low blood sugar and to be hypoxic at 70% The patient was placed on a non-rebreather and was given IV dextrose The home health aide reported to EMS that he had given the patient 20 units of some type of insulin. On review of the patient's medical history she was prescribed insulin degludec. It appears that upon her recent discharge from this facility this was to be given 15 units subQ at bedtime only She is also on a sliding scale of insulin aspart It is not clear which type of insulin the patient received earlier today The patient was found to be hypothermic, hypoxic and tachypneic on arrival. Of note, she should be taking Augmentin as she was discharged from this facility 3 days ago for AUBRIE and aspiration pneumonia The patient also has a history of opiate abuse She did not receive any Narcan in the field The patient arrives sleepy but arousable Prior to my arrival to the patient's room respiratory had already suction the patient and remove several cc of thick green sputum. EMS reported the patient did vomit and aspirate EN route Related Data Home Medications ?Medication ?Instructions ?Recorded ?Confirmed albuterol sulfate 90 mcg/actuation 2 puff PO Q4H PRN Respiratory 04/24/20 01/12/24 aerosol inhaler Distress aspirin 81 mg tablet,delayed 81 mg PO DAILY 04/24/20 01/12/24 release atorvastatin 40 mg tablet 40 mg PO DAILY 04/24/20 01/12/24 bupropion HCl 150 mg tablet,12 hr 150 mg PO BID 04/24/20 01/12/24 sustained-release lancets 33 gauge #100 ea 04/24/20 01/12/24 metformin 1,000 mg tablet 1,000 mg PO BIDWM 04/24/20 01/12/24 omeprazole 20 mg capsule,delayed 20 mg PO DAILY@0630 04/24/20 01/12/24 release gabapentin 600 mg tablet 600 mg PO TID 05/03/20 01/12/24 acetaminophen 325 mg capsule 325 mg PO QID PRN Pain 11/02/23 01/12/24 insulin aspart (niacinamide) 0 sliding scale dose subcut 12/31/23 01/12/24 (U-100) 100 unit/mL subcutaneous USEASDIRECTD solution (Fiasp U-100 Insulin) metoprolol succinate 25 mg 25 mg PO DAILY 12/31/23 01/12/24 tablet,extended release 24 hr mirtazapine 7.5 mg tablet 7.5 mg PO BEDTIME 12/31/23 01/12/24 fluticasone furoate 100 1 inh inhalation DAILY 01/01/24 01/12/24 mcg/actuation blister powder for inhalation (Arnuity Ellipta) methadone 10 mg/mL oral concentrate 130 mg PO DAILY 01/01/24 01/12/24 zolpidem 10 mg tablet 10 mg PO BEDTIME PRN Sleep 01/01/24 01/12/24 Previous Rx's ?Medication ?Instructions ?Recorded walker #1 ea 10/11/20 ondansetron 4 mg disintegrating 4 mg PO TID PRN nausea and 12/09/22 tablet vomiting 5 days #10 tabs amlodipine 10 mg tablet 10 mg PO DAILY #90 tabs 12/29/23 lisinopril 40 mg tablet 40 mg PO DAILY #90 tabs 12/29/23 nicotine 14 mg/24 hr daily 14 mg transdermal DAILY #30 ea 01/04/24 transdermal patch amoxicillin 875 mg-potassium 1 tab PO BID 4 days #8 tabs 01/15/24 clavulanate 125 mg tablet insulin degludec 100 unit/mL (3 15 unit (0.15 mL) subcut BEDTIME 01/17/24 mL) subcutaneous pen (Tresiba #15 mL FlexTouch U-100 insulin) Allergies Allergy/AdvReac Type Severity Reaction Status Date / Time No Known Allergies Allergy Verified 01/20/24 17:38 Review of Systems 2 Constitutional: Constitutional: Denies chills, Denies fever(s) and Reports weakness Cardiovascular: Cardiovascular: Denies chest pain and Reports dyspnea Respiratory: Respiratory: Reports cough and Reports dyspnea Gastrointestinal: Gastrointestinal: Reports vomiting Integumentary/Breasts: Skin/Breast: Denies rash Neurologic: Reports weakness PMFSH Past Medical History Medical History Diabetic osteomyelitis Below-knee amputation of right lower extremity Osteomyelitis of ankle Charcot foot due to diabetes mellitus Acute hyperglycemia Cellulitis Gastroenteritis Gastritis Constipation Diabetic foot ulcer New onset of congestive heart failure DKA (diabetic ketoacidoses) COVID-19 Dyslipidemia Glaucoma Pulmonary emboli Depression Chronic prescription opiate use Diabetes mellitus Pulmonary nodule Tobacco dependence COPD (chronic obstructive pulmonary disease) Surgical History History of below-knee amputation of right lower extremity (01/13/22) Cataract extraction status, right eye Cataract extraction status, left eye Hx of cholecystectomy Family History Family History Other CVA (cerebral vascular accident) Social History Social History Household Members: Unknown / Unable to assess Housing: Unknown / Unable to assess Housing Other:: hotel Do you presently have visiting nurse or other home services: Yes Unable to assess alcohol history related to: Unknown Alcohol intake: never Comment: refused telesitter Patient Tobacco Use Status: Tobacco use Unknown Tobacco use type: Cigarette Cigarette Packs Per Day: 0.3 Cigarettes Per Day: 6.0 Years Smoked: 50 e-Cigarette/Vaping Use: Currently Using Second Hand Smoke Exposure: No Substance Use Type: Former Substance User Advance Directives: Yes Advance Directives on File: Yes Advance Directives Date on File: 10/20/23 Do you have a plan to hurt others: No Plan service: No Current occupational status: disabled Physical Exam ED Vital Signs: Vital Signs - 24 hr 01/20/24 17:23 01/20/24 17:37 01/20/24 18:49 Temperature 95.6 F L Pulse Rate 66 74 Respiratory Rate 21 H 24 H 20 Blood Pressure 152/73 H 135/74 Pulse Oximetry 68 L 92 Oxygen Delivery Method Non-Rebreather Mask High Flow Nasal Cannula 01/20/24 20:06 01/20/24 20:29 01/20/24 20:30 Temperature 96.9 F Pulse Rate 91 Respiratory Rate 22 H 34 H Blood Pressure 121/76 122/55 L Pulse Oximetry 90 L Oxygen Delivery Method CPAP 01/20/24 20:37 01/20/24 22:15 Temperature 100.3 F Pulse Rate 92 78 Respiratory Rate 34 H 18 Blood Pressure 99/47 L Pulse Oximetry 92 Oxygen Delivery Method BiPAP BMI result Body Mass Index 28.9 Const General: alert Nutritional Appearance: well nourished [facility] Head: Yes normocephalic and Yes atraumatic Eyes Other: Sclerae is glazed over and left, pupil is not visible Eyelids: Yes eyelids normal Pupils: pupils not ERRL (Pupil was round and reactive on right) EOM: EOMs intact bilaterally Resp Effort & Inspection: abnormal respiratory effort, labored and respiratory distress Auscultation: not clear to auscultation bilaterally and rhonchi (Worse in the right mid lung) Cardio Rate: regular rate Rhythm: regular rhythm GI Inspection: No distended Palpation (GI): Soft to palpation, not firm, nontender, no guarding and not rigid Skin General skin exam: elasticity normal Neuro Cranial nerves: No Equal, round and reactive pupils present (Pupil was round and reactive on right) and Yes Bilaterally intact EOM present Cognition (Neuro): normal cognition Extrem Other: Right BKA with small open wound less than the size of a dime, no surrounding inflammatory changes. No erythema, no edema, no purulence Course Reevaluation(s) Reevaluation #1: Patient arrived with chief complaint of unresponsiveness, EMS found the patient's glucose to be less than 60. She was also hypoxic to 70% on room air. She was also found to be mildly hypothermic at 95.3. Sepsis alert was called. The patient was recently admitted and subsequently discharged from this facility for AUBRIE and multifocal pneumonia thought to be related to aspiration pneumonia. We will treat with Zosyn IV given suspected pneumonia. Labs are pending at this time. The patient is on high flow with an oxygen saturation of 90% Time: 17:49 Reevaluation #2: Patient's glucose is again dropping to 59. She has received an amp of D 50. She is on D10 at 75 cc an hour. Will continue to check point of care regularly. I will give her another bolus of D50 Time: 18:14 Reevaluation #3: Patient became more hypoxic, quite wheezy on exam, she is going to continue his nebulizer with Atrovent. She did receive a L of IV fluids and additional fluids with dextrose, she has a history of CHF and likely some degree of volume overload this point, will give a dose of Lasix. Will try the patient on BiPAP she is much more awake than arrival and able to tolerate it at this time Time: 19:51 Additional Reevaluation(s): 2253- the patient has been on BiPAP for about 2 hours now, her FiO2 has remained at 80% and was just decreased 60%. The patient is somewhat sleepy but arouses to verbal stimuli. Her temperature has climbed to 100.3, ordered per rectal Tylenol, she has already received Zosyn which should cover aspiration pneumonia. I discussed with the scrap crane operator, Dr Theodore we will review the case with his PA and likely admit the patient to the ICU Medications Administered Generic Name Dose Route Start Last Admin Trade Name Freq PRN Reason Stop Dose Admin Dextrose 250 mls @ 750 mls/hr 01/20/24 18:14 01/20/24 18:44 D10 IV Infused Q15M PRN Infusion per Hypoglycemia Standing Ord. Discontinued Medications Generic Name Dose Route Start Last Admin Trade Name Freq PRN Reason Stop Dose Admin Albuterol/Ipratropium 3 ml 01/20/24 19:16 01/20/24 19:29 Albuterol/Iprat 2.5/0.5mg 3 Ml Ampul.Neb INHALE 01/20/24 19:17 3 ml ONCE ONE Administration Dextrose 25 gm 01/20/24 17:30 01/20/24 17:15 Dextrose 50 % 25 Gm/50 Ml Vial IVPUSH 01/20/24 17:31 25 gm ONCE ONE Administration Furosemide 40 mg 01/20/24 19:50 01/20/24 20:06 Furosemide 40 Mg/4 Ml Vial IVPUSH 01/20/24 19:51 40 mg STAT STA Administration Protocol Sodium Chloride 1,000 mls @ 999 mls/hr 01/20/24 17:15 01/20/24 22:22 Ns IV 01/20/24 18:15 Infused .Q1H1M PRECIOUS Infusion Piperacillin Sod/Tazobactam 50 mls @ 100 mls/hr 01/20/24 17:11 01/20/24 18:32 Sod 3.375 gm/ Sodium Chloride IV 01/20/24 17:40 Infused ONCE ONE Infusion Dextrose 1,000 mls @ 75 mls/hr 01/20/24 18:00 01/20/24 22:29 D10 IVCONT Infused .[id number] PRECIOUS Infusion Methylprednisolone Sodium Succinate 125 mg 01/20/24 19:33 01/20/24 20:06 Methylprednisolone Sod Succ 125 Mg/2 Ml Vial IVPUSH 01/20/24 19:34 125 mg ONCE ONE Administration Medical Decision Making Medical Decision Making MDM Narrative: 64-year-old female with past medical history as documented above presents for evaluation of hypoxia, hyperglycemia, unresponsiveness. This may be multifactorial in nature, could related to insulin overdose versus sepsis versus drug abuse Differential Diagnosis Differential Diagnoses: The differential diagnosis associated with the presentation includes Insulin overdose Sepsis Aspiration pneumonia Substance abuse Hypothermia Admission/Observation Consideration of admission/observation: Escalation of care including admission/observation considered Patient will require admission for hypoxic respiratory failure Consult Healthcare Provider Management of the patient was discussed with: Machine Sweeper Brush Maker ([place]) Lab Data [facility] Lab Attestation statement: I reviewed the patient's lab results. Patient has a leukocytosis, she has a mild anemia just above her baseline. She has a left shift consistent with infectious process. Patient's chemistries are significant for a mild elevation of the BUN and creatinine consistent with her baseline chronic kidney disease. Patient's lactic acid was 2.4, does not meet criteria for severe sepsis 01/20/24 17:30 01/20/24 19:09 Labs: Lab Results 01/20/24 01/20/24 01/20/24 Range/Units 17:09 17:30 17:33 WBC 13.1 H (4.8-10.8) X10*3/uL RBC 3.34 L (4.20-5.50) X10*6/uL Hgb 9.7 L (12.0-16.0) g/dl Hct 29.9 L (37.0-47.0) % MCV 89.5 (80.0-98.0) fL MCH 29.0 (27.0-33.0) pg MCHC 32.4 (31.0-35.0) g/dl RDW 15.9 (11.0-16.0) % Plt Count 338 D (160-400) X10*3/uL MPV 11.4 (9.4-12.3) fL Immature Gran % (Auto) 0.6 H (0.0-0.4) % Neut % (Auto) 85.8 H (45-73) % Lymph % (Auto) 7.3 L (20-40) % [place] % (Auto) 5.9 (2-11) % Eos % (Auto) 0.2 (0-4) % Baso % (Auto) 0.2 (0-2) % Lymph # (Auto) 1.0 L (1.2-4.9) X10*3/uL [place] # (Auto) 0.8 (0.1-1.2) X10*3/uL Eos # (Auto) 0.0 (0.0-0.4) X10*3/uL Baso # (Auto) 0.0 (0.0-0.2) X10*3/uL Abs Immat Gran (auto) 0.08 H (0.00-0.03) X10*3/uL Absolute Neuts (auto) 11.3 H (2.0-8.3) x10*3/uL Absolute Nucleated RBC 0.000 (0.0-0.012) X10*3/uL Nucleated RBC % (auto) 0.0 (0.0-0.2) /100WBC PT 13.7 H (11.1-13.3) SEC INR 1.1 (0.9-1.1) VBG pH 7.34 (7.32-7.43) VBG pCO2 36 mmHg VBG pO2 43 mmHg VBG HCO3 19 L (22-26) mmol/L VBG O2 Saturation 67.0 % VBG Base Excess -5.3 mmol/L Sodium (135-145) mmol/L Potassium (3.3-5.1) mmol/L Chloride (96-108) mmol/L Carbon Dioxide (22-29) mmol/L Anion Gap (12-20) BUN (9-16) mg/dL Creatinine (0.5-1.4) mg/dL Estim Creat Clear Calc Estimated GFR POC Glucose 69 (60-115) mg/dL Random Glucose (60-115) mg/dL Lactic Acid 2.2 H* (0.5-2.0) mmol/L Lactic Acid F/U @ 2Hr (0.5-2.0) mmol/L Calcium (8.4-10.2) mg/dL Total Bilirubin (0.0-1.0) mg/dL AST (5-31) U/L ALT (0-31) U/L Alkaline Phosphatase (39-117) U/L Troponin I High Sens 5.0 (<3.5-17.0) ng/L B-Natriuretic Peptide 263 H (<100) pg/mL Total Protein (6.5-8.0) g/dL Albumin (3.5-5.0) g/dL Lipase (8-78) U/L Urine Color Urine Appearance Urine pH (5.0-9.0) Ur Specific [place] (1.005-1.025) Urine Protein (Neg-Trace) mg/dL Urine Glucose (UA) (Negative) mg/dL Urine Ketones (Negative) mg/dL Urine Blood (Negative) Urine Nitrite (Negative) Ur Leukocyte Esterase (Negative) Urine RBC (0-2) /HPF Urine WBC (0-5) /HPF Ur Squamous Epith Cells (0-2) /HPF Urine Bacteria (None Seen) Hyaline Casts (0-2) /LPF Urine Opiates Screen (Not Detect) Ur Buprenorphine Scrn (Not Detect) ng/mL Ur Oxycodone Screen (Not Detect) ng/mL Urine Methadone Screen (Not Detect) ng/mL Urine Fentanyl Screen (Not Detect) Ur Barbiturates Screen (Not Detect) Ur Phencyclidine Scrn (Not Detect) Ur Amphetamines Screen (Not Detect) U Benzodiazepines Scrn (Not Detect) Urine Cocaine Screen (Not Detect) U Marijuana (THC) Screen (Not Detect) Influenza Type A (PCR) (Negative) Influenza Type B (PCR) (Negative) RSV RNA Qual (PCR) (Negative) SARS-CoV-2 RNA (RT-PCR) (Negative) 01/20/24 01/20/24 01/20/24 Range/Units 17:41 18:13 18:58 WBC (4.8-10.8) X10*3/uL RBC (4.20-5.50) X10*6/uL Hgb (12.0-16.0) g/dl Hct (37.0-47.0) % MCV (80.0-98.0) fL MCH (27.0-33.0) pg MCHC (31.0-35.0) g/dl RDW (11.0-16.0) % Plt Count (160-400) X10*3/uL MPV (9.4-12.3) fL Immature Gran % (Auto) (0.0-0.4) % Neut % (Auto) (45-73) % Lymph % (Auto) (20-40) % [place] % (Auto) (2-11) % Eos % (Auto) (0-4) % Baso % (Auto) (0-2) % Lymph # (Auto) (1.2-4.9) X10*3/uL [place] # (Auto) (0.1-1.2) X10*3/uL Eos # (Auto) (0.0-0.4) X10*3/uL Baso # (Auto) (0.0-0.2) X10*3/uL Abs Immat Gran (auto) (0.00-0.03) X10*3/uL Absolute Neuts (auto) (2.0-8.3) x10*3/uL Absolute Nucleated RBC (0.0-0.012) X10*3/uL Nucleated RBC % (auto) (0.0-0.2) /100WBC PT (11.1-13.3) SEC INR (0.9-1.1) VBG pH (7.32-7.43) VBG pCO2 mmHg VBG pO2 mmHg VBG HCO3 (22-26) mmol/L VBG O2 Saturation % VBG Base Excess mmol/L Sodium (135-145) mmol/L Potassium (3.3-5.1) mmol/L Chloride (96-108) mmol/L Carbon Dioxide (22-29) mmol/L Anion Gap (12-20) BUN (9-16) mg/dL Creatinine (0.5-1.4) mg/dL Estim Creat Clear Calc Estimated GFR POC Glucose 120 H 59 L* 120 H (60-115) mg/dL Random Glucose (60-115) mg/dL Lactic Acid (0.5-2.0) mmol/L Lactic Acid F/U @ 2Hr (0.5-2.0) mmol/L Calcium (8.4-10.2) mg/dL Total Bilirubin (0.0-1.0) mg/dL AST (5-31) U/L ALT (0-31) U/L Alkaline Phosphatase (39-117) U/L Troponin I High Sens (<3.5-17.0) ng/L B-Natriuretic Peptide (<100) pg/mL Total Protein (6.5-8.0) g/dL Albumin (3.5-5.0) g/dL Lipase (8-78) U/L Urine Color Urine Appearance Urine pH (5.0-9.0) Ur Specific [place] (1.005-1.025) Urine Protein (Neg-Trace) mg/dL Urine Glucose (UA) (Negative) mg/dL Urine Ketones (Negative) mg/dL Urine Blood (Negative) Urine Nitrite (Negative) Ur Leukocyte Esterase (Negative) Urine RBC (0-2) /HPF Urine WBC (0-5) /HPF Ur Squamous Epith Cells (0-2) /HPF Urine Bacteria (None Seen) Hyaline Casts (0-2) /LPF Urine Opiates Screen (Not Detect) Ur Buprenorphine Scrn (Not Detect) ng/mL Ur Oxycodone Screen (Not Detect) ng/mL Urine Methadone Screen (Not Detect) ng/mL Urine Fentanyl Screen (Not Detect) Ur Barbiturates Screen (Not Detect) Ur Phencyclidine Scrn (Not Detect) Ur Amphetamines Screen (Not Detect) U Benzodiazepines Scrn (Not Detect) Urine Cocaine Screen (Not Detect) U Marijuana (THC) Screen (Not Detect) Influenza Type A (PCR) (Negative) Influenza Type B (PCR) (Negative) RSV RNA Qual (PCR) (Negative) SARS-CoV-2 RNA (RT-PCR) (Negative) 01/20/24 01/20/24 01/20/24 Range/Units 19:09 19:20 19:28 WBC (4.8-10.8) X10*3/uL RBC (4.20-5.50) X10*6/uL Hgb (12.0-16.0) g/dl Hct (37.0-47.0) % MCV (80.0-98.0) fL MCH (27.0-33.0) pg MCHC (31.0-35.0) g/dl RDW (11.0-16.0) % Plt Count (160-400) X10*3/uL MPV (9.4-12.3) fL Immature Gran % (Auto) (0.0-0.4) % Neut % (Auto) (45-73) % Lymph % (Auto) (20-40) % [place] % (Auto) (2-11) % Eos % (Auto) (0-4) % Baso % (Auto) (0-2) % Lymph # (Auto) (1.2-4.9) X10*3/uL [place] # (Auto) (0.1-1.2) X10*3/uL Eos # (Auto) (0.0-0.4) X10*3/uL Baso # (Auto) (0.0-0.2) X10*3/uL Abs Immat Gran (auto) (0.00-0.03) X10*3/uL Absolute Neuts (auto) (2.0-8.3) x10*3/uL Absolute Nucleated RBC (0.0-0.012) X10*3/uL Nucleated RBC % (auto) (0.0-0.2) /100WBC PT (11.1-13.3) SEC INR (0.9-1.1) VBG pH (7.32-7.43) VBG pCO2 mmHg VBG pO2 mmHg VBG HCO3 (22-26) mmol/L VBG O2 Saturation % VBG Base Excess mmol/L Sodium 136 (135-145) mmol/L Potassium 4.6 (3.3-5.1) mmol/L Chloride 105 (96-108) mmol/L Carbon Dioxide 19 L (22-29) mmol/L Anion Gap 17 (12-20) BUN 26 H (9-16) mg/dL Creatinine 1.64 H (0.5-1.4) mg/dL Estim Creat Clear Calc 28.3 Estimated GFR 32 POC Glucose 83 (60-115) mg/dL Random Glucose 95 (60-115) mg/dL Lactic Acid (0.5-2.0) mmol/L Lactic Acid F/U @ 2Hr (0.5-2.0) mmol/L Calcium 9.2 (8.4-10.2) mg/dL Total Bilirubin 0.3 (0.0-1.0) mg/dL AST 17 (5-31) U/L ALT 10 (0-31) U/L Alkaline Phosphatase 78 (39-117) U/L Troponin I High Sens (<3.5-17.0) ng/L B-Natriuretic Peptide (<100) pg/mL Total Protein 7.6 (6.5-8.0) g/dL Albumin 3.5 (3.5-5.0) g/dL Lipase 28 (8-78) U/L Urine Color Yellow Urine Appearance Cloudy Urine pH 5.0 (5.0-9.0) Ur Specific [place] 1.010 (1.005-1.025) Urine Protein 30 (1+) H (Neg-Trace) mg/dL Urine Glucose (UA) 100 H (Negative) mg/dL Urine Ketones Negative (Negative) mg/dL Urine Blood Small (1+) H (Negative) Urine Nitrite Negative (Negative) Ur Leukocyte Esterase Large (3+) H (Negative) Urine RBC 6-10 H (0-2) /HPF Urine WBC 11-20 H (0-5) /HPF Ur Squamous Epith Cells 6-10 (0-2) /HPF Urine Bacteria None Seen (None Seen) Hyaline Casts 6-10 (0-2) /LPF Urine Opiates Screen Not Detected (Not Detect) Ur Buprenorphine Scrn Not Detected (Not Detect) ng/mL Ur Oxycodone Screen Not Detected (Not Detect) ng/mL Urine Methadone Screen Positive H (Not Detect) ng/mL Urine Fentanyl Screen POSITIVE H (Not Detect) Ur Barbiturates Screen Not Detected (Not Detect) Ur Phencyclidine Scrn Not Detected (Not Detect) Ur Amphetamines Screen Not Detected (Not Detect) U Benzodiazepines Scrn Not Detected (Not Detect) Urine Cocaine Screen POSITIVE H (Not Detect) U Marijuana (THC) Screen Not Detected (Not Detect) Influenza Type A (PCR) (Negative) Influenza Type B (PCR) (Negative) RSV RNA Qual (PCR) (Negative) SARS-CoV-2 RNA (RT-PCR) (Negative) 01/20/24 01/20/24 01/20/24 Range/Units 19:49 20:35 21:38 WBC (4.8-10.8) X10*3/uL RBC (4.20-5.50) X10*6/uL Hgb (12.0-16.0) g/dl Hct (37.0-47.0) % MCV (80.0-98.0) fL MCH (27.0-33.0) pg MCHC (31.0-35.0) g/dl RDW (11.0-16.0) % Plt Count (160-400) X10*3/uL MPV (9.4-12.3) fL Immature Gran % (Auto) (0.0-0.4) % Neut % (Auto) (45-73) % Lymph % (Auto) (20-40) % [place] % (Auto) (2-11) % Eos % (Auto) (0-4) % Baso % (Auto) (0-2) % Lymph # (Auto) (1.2-4.9) X10*3/uL [place] # (Auto) (0.1-1.2) X10*3/uL Eos # (Auto) (0.0-0.4) X10*3/uL Baso # (Auto) (0.0-0.2) X10*3/uL Abs Immat Gran (auto) (0.00-0.03) X10*3/uL Absolute Neuts (auto) (2.0-8.3) x10*3/uL Absolute Nucleated RBC (0.0-0.012) X10*3/uL Nucleated RBC % (auto) (0.0-0.2) /100WBC PT (11.1-13.3) SEC INR (0.9-1.1) VBG pH (7.32-7.43) VBG pCO2 mmHg VBG pO2 mmHg VBG HCO3 (22-26) mmol/L VBG O2 Saturation % VBG Base Excess mmol/L Sodium (135-145) mmol/L Potassium (3.3-5.1) mmol/L Chloride (96-108) mmol/L Carbon Dioxide (22-29) mmol/L Anion Gap (12-20) BUN (9-16) mg/dL Creatinine (0.5-1.4) mg/dL Estim Creat Clear Calc Estimated GFR POC Glucose 77 118 H (60-115) mg/dL Random Glucose (60-115) mg/dL Lactic Acid (0.5-2.0) mmol/L Lactic Acid F/U @ 2Hr (0.5-2.0) mmol/L Calcium (8.4-10.2) mg/dL Total Bilirubin (0.0-1.0) mg/dL AST (5-31) U/L ALT (0-31) U/L Alkaline Phosphatase (39-117) U/L Troponin I High Sens (<3.5-17.0) ng/L B-Natriuretic Peptide (<100) pg/mL Total Protein (6.5-8.0) g/dL Albumin (3.5-5.0) g/dL Lipase (8-78) U/L Urine Color Urine Appearance Urine pH (5.0-9.0) Ur Specific [place] (1.005-1.025) Urine Protein (Neg-Trace) mg/dL Urine Glucose (UA) (Negative) mg/dL Urine Ketones (Negative) mg/dL Urine Blood (Negative) Urine Nitrite (Negative) Ur Leukocyte Esterase (Negative) Urine RBC (0-2) /HPF Urine WBC (0-5) /HPF Ur Squamous Epith Cells (0-2) /HPF Urine Bacteria (None Seen) Hyaline Casts (0-2) /LPF Urine Opiates Screen (Not Detect) Ur Buprenorphine Scrn (Not Detect) ng/mL Ur Oxycodone Screen (Not Detect) ng/mL Urine Methadone Screen (Not Detect) ng/mL Urine Fentanyl Screen (Not Detect) Ur Barbiturates Screen (Not Detect) Ur Phencyclidine Scrn (Not Detect) Ur Amphetamines Screen (Not Detect) U Benzodiazepines Scrn (Not Detect) Urine Cocaine Screen (Not Detect) U Marijuana (THC) Screen (Not Detect) Influenza Type A (PCR) NEGATIVE (Negative) Influenza Type B (PCR) NEGATIVE (Negative) RSV RNA Qual (PCR) NEGATIVE (Negative) SARS-CoV-2 RNA (RT-PCR) NEGATIVE (Negative) 01/20/24 01/20/24 Range/Units 22:03 22:26 WBC (4.8-10.8) X10*3/uL RBC (4.20-5.50) X10*6/uL Hgb (12.0-16.0) g/dl Hct (37.0-47.0) % MCV (80.0-98.0) fL MCH (27.0-33.0) pg MCHC (31.0-35.0) g/dl RDW (11.0-16.0) % Plt Count (160-400) X10*3/uL MPV (9.4-12.3) fL Immature Gran % (Auto) (0.0-0.4) % Neut % (Auto) (45-73) % Lymph % (Auto) (20-40) % [place] % (Auto) (2-11) % Eos % (Auto) (0-4) % Baso % (Auto) (0-2) % Lymph # (Auto) (1.2-4.9) X10*3/uL [place] # (Auto) (0.1-1.2) X10*3/uL Eos # (Auto) (0.0-0.4) X10*3/uL Baso # (Auto) (0.0-0.2) X10*3/uL Abs Immat Gran (auto) (0.00-0.03) X10*3/uL Absolute Neuts (auto) (2.0-8.3) x10*3/uL Absolute Nucleated RBC (0.0-0.012) X10*3/uL Nucleated RBC % (auto) (0.0-0.2) /100WBC PT (11.1-13.3) SEC INR (0.9-1.1) VBG pH (7.32-7.43) VBG pCO2 mmHg VBG pO2 mmHg VBG HCO3 (22-26) mmol/L VBG O2 Saturation % VBG Base Excess mmol/L Sodium (135-145) mmol/L Potassium (3.3-5.1) mmol/L Chloride (96-108) mmol/L Carbon Dioxide (22-29) mmol/L Anion Gap (12-20) BUN (9-16) mg/dL Creatinine (0.5-1.4) mg/dL Estim Creat Clear Calc Estimated GFR POC Glucose 173 H (60-115) mg/dL Random Glucose (60-115) mg/dL Lactic Acid (0.5-2.0) mmol/L Lactic Acid F/U @ 2Hr 2.4 H* (0.5-2.0) mmol/L Calcium (8.4-10.2) mg/dL Total Bilirubin (0.0-1.0) mg/dL AST (5-31) U/L ALT (0-31) U/L Alkaline Phosphatase (39-117) U/L Troponin I High Sens (<3.5-17.0) ng/L B-Natriuretic Peptide (<100) pg/mL Total Protein (6.5-8.0) g/dL Albumin (3.5-5.0) g/dL Lipase (8-78) U/L Urine Color Urine Appearance Urine pH (5.0-9.0) Ur Specific [place] (1.005-1.025) Urine Protein (Neg-Trace) mg/dL Urine Glucose (UA) (Negative) mg/dL Urine Ketones (Negative) mg/dL Urine Blood (Negative) Urine Nitrite (Negative) Ur Leukocyte Esterase (Negative) Urine RBC (0-2) /HPF Urine WBC (0-5) /HPF Ur Squamous Epith Cells (0-2) /HPF Urine Bacteria (None Seen) Hyaline Casts (0-2) /LPF Urine Opiates Screen (Not Detect) Ur Buprenorphine Scrn (Not Detect) ng/mL Ur Oxycodone Screen (Not Detect) ng/mL Urine Methadone Screen (Not Detect) ng/mL Urine Fentanyl Screen (Not Detect) Ur Barbiturates Screen (Not Detect) Ur Phencyclidine Scrn (Not Detect) Ur Amphetamines Screen (Not Detect) U Benzodiazepines Scrn (Not Detect) Urine Cocaine Screen (Not Detect) U Marijuana (THC) Screen (Not Detect) Influenza Type A (PCR) (Negative) Influenza Type B (PCR) (Negative) RSV RNA Qual (PCR) (Negative) SARS-CoV-2 RNA (RT-PCR) (Negative) Independent Interpretation I performed an independent interpretation of an: EKG (Normal sinus rhythm with a rate of [address] segment elevations or depressions.) and Plain X- Ray (Diffuse Patchy infiltrates appear worse when compared to previous from last week) Radiology Impression Discussion of test interpretation with radiology: I have reviewed the radiologist's reading. Radiologist Impression: XR/XR chest 1V IMPRESSION: Worsened patchy bilateral airspace disease now more densely opacifying both lung bases. Infectious etiology would be suspected in the acute setting. Aspiration could have this appearance and should be clinically correlated. Critical Care Time Critical Care Time Critical Care Time: Yes Total Critical Care Time: 65 Attestation: [age] old female presents for evaluation of unresponsiveness. She was found to be hypoxic, hypoglycemic, she required numerous re-evaluations, multiple interventions including IV antibiotics, IV fluids, corticosteroids, nebulizers, multiple regimens of IV dextrose. She will be admitted to the ICU Discharge Plan Discharge Clinical Impression: Acute hypoxic respiratory failure, Hypoglycemia, Sepsis Patient Disposition: Admitted As Inpatient Prescriptions: No Action (DME) walker Misc See Rx Instructions .ROUTE .MEDSUPPLY Qty: 1 0RF Rx Instructions: As directed ondansetron 4 mg tablet,disintegrating 4 mg PO TID PRN (Reason: nausea and vomiting) 5 Days Qty: 10 0RF lisinopril 40 mg tablet 40 mg PO DAILY Qty: 90 0RF Hold Instructions: hold until follow up with nephrology amlodipine 10 mg tablet 10 mg PO DAILY Qty: 90 0RF metoprolol succinate 25 mg tablet extended release 24 hr 25 mg PO DAILY mirtazapine 7.5 mg tablet 7.5 mg PO BEDTIME Fiasp U-100 Insulin 100 unit/mL solution 0 sliding scale dose subcut USEASDIRECTD zolpidem 10 mg tablet 10 mg PO BEDTIME PRN (Reason: Sleep) Arnuity Ellipta 100 mcg/actuation blister with device 1 inh inhalation DAILY methadone 10 mg/mL Concentrate 130 mg PO DAILY nicotine 14 mg/24 hr Patch 24 Hour 14 mg transdermal DAILY Qty: 30 0RF amoxicillin-pot clavulanate 875-125 mg tablet 1 tab PO BID 4 Days Qty: 8 0RF insulin degludec [Tresiba FlexTouch U-100] 100 unit/mL (3 mL) insulin pen 15 unit subcut BEDTIME Qty: 15 0RF gabapentin 600 mg tablet 600 mg PO TID (DME) lancets 33 gauge misc See Rx Instructions Not Applicable TID Qty: 100 Rx Instructions: As directed albuterol sulfate 90 mcg/actuation HFA aerosol inhaler 2 puff PO Q4H PRN (Reason: Respiratory Distress) omeprazole 20 mg capsule,delayed release(DR/EC) 20 mg PO DAILY@0630 metformin 1,000 mg tablet 1,000 mg PO BIDWM Hold Instructions: hold until follow up labs done outpatient. discuss with PCP if renal function ok to continue aspirin 81 mg tablet,delayed release (DR/EC) 81 mg PO DAILY bupropion HCl 150 mg tablet sustained-release 12 hr 150 mg PO BID atorvastatin 40 mg tablet 40 mg PO DAILY acetaminophen 325 mg capsule 325 mg PO QID PRN (Reason: Pain) Print Language: Togolese
[2024-01-20 17:51] LABS: Venous Blood Gas Refer to POC result
[2024-01-20] MEDS: 0.9 % Sodium Chloride 1,000 ML 999 ML IV (17:56)
[2024-01-20] MEDS: Piperacillin Sodium/Tazobactam 3.375 GM in 0.9 % Sodium Chloride 50 ML IV (17:56)
[2024-01-20 18:10] LABS: Glucose, Whole Blood 69 mg/dL (60-115)
[2024-01-20 18:10] LABS: Glucose, Whole Blood 120 mg/dL (60-115)
[2024-01-20 18:13] LABS: B Type Natriuretic Peptide 263 pg/mL (<100)
[2024-01-20] MEDS: Dextrose 10 % 1,000 ML 75 ML IVCONT (18:15)
[2024-01-20 18:18] LABS: Lactic Acid 2.2 mmol/L (0.5-2.0)
[2024-01-20] MEDS: Dextrose 10 % 250 ML 750 ML IV (18:24)
[2024-01-20 18:30] LABS: Glucose, Whole Blood 59 mg/dL (60-115)
--- NOTE | 2024-01-20 18:53 | MHC.EDTECH ---
at this time assisted pt to use the bedpan
--- NOTE | 2024-01-20 19:16 | PC.NURSE ---
bilateral AC IV's - 18lac/20rac. patient at this time alert and oriented, remains on high flow in low 90's. prn d10 administered. iv fluids/antibiotics infused. d10 infusing via left IV. patient incontinent of stool multiple times.
[2024-01-20] MEDS: Albuterol/Iprat 2.5/0.5MG 3 ML AMPUL.NEB INHALE (19:29)
[2024-01-20 19:33] LABS: Reflex Lactate? Lactic Acid Added
[2024-01-20 19:34] LABS: Glucose, Whole Blood 83 mg/dL (60-115)
[2024-01-20 19:35] LABS: Appearance Urine Cloudy; Color Urine Yellow; Glucose Urine UA 100 mg/dL (Negative); Leukocyte Esterase Urine Large (3+) (Negative); Nitrite Urine Negative (Negative); UMIC TRIGGER UACC YES; Urine Blood Small (1+) (Negative); Urine Ketones Negative (Negative); Urine Protein 30 (1+) mg/dL (Neg-Trace)
[2024-01-20 19:37] LABS: Alanine Aminotransferase 10 U/L (0-31); Albumin Level 3.5 g/dL (3.5-5.0); Alkaline Phosphatase 78 U/L (39-117); Anion Gap 17 (12-20); Aspartate Amino Transferase 17 U/L (5-31); Bilirubin Total 0.3 mg/dL (0.0-1.0); Blood Urea Nitrogen 26 mg/dL (9-16); Calcium 9.2 mg/dL (8.4-10.2); Carbon Dioxide 19 mmol/L (22-29); Chloride 105 mmol/L (96-108); Creatinine Clr Calc Pharmacy 28.3; Estimated Glomerular Filt Rate 32; Glucose Random 95 mg/dL (60-115); Lipase 28 U/L (8-78); Potassium 4.6 mmol/L (3.3-5.1); Sodium 136 mmol/L (135-145); Total Protein 7.6 g/dL (6.5-8.0)
[2024-01-20 19:47] LABS: Bacteria Urine None Seen (None Seen); UACC Culture Trigger YES
[2024-01-20 19:48] LABS: Glucose, Whole Blood 120 mg/dL (60-115)
[2024-01-20 19:49] LABS: Amphetamine Screen Urine Not Detected (Not Detect); Barbiturates, Urine Not Detected (Not Detect); Benzodiazepines Screen Urine Not Detected (Not Detect); Buprenorphine Scr Not Detected (Not Detect); Cannabinoid Screen Urine Not Detected (Not Detect); Cocaine Screen Urine POSITIVE (Not Detect); Fentanyl, urine POSITIVE (Not Detect); Methadone Screen, Urine Positive (Not Detect); Opiate Screen Urine Not Detected (Not Detect); Oxycodone Screen Urine Not Detected (Not Detect); Phencyclidine Screen Urine Not Detected (Not Detect)
[2024-01-20 19:52] LABS: Glucose, Whole Blood 77 mg/dL (60-115)
[2024-01-20] MEDS: methylPREDNISolone Sod Succ 125 MG/2 ML VIAL IVPUSH (20:06)
[2024-01-20] MEDS: Furosemide 40 MG/4 ML VIAL IVPUSH (20:06)
[2024-01-20 20:39] LABS: Glucose, Whole Blood 118 mg/dL (60-115)
--- NOTE | 2024-01-20 20:39 | MHC.EDTECH ---
placed the pt on a pure wick at this time, explained to pt the need for the pure wick, pt tolerated well
[2024-01-20 22:07] LABS: Glucose, Whole Blood 173 mg/dL (60-115)
[2024-01-20 22:22] LABS: Influenza A PCR NEGATIVE (Negative); Influenza B PCR NEGATIVE (Negative); Resp Syncy Virus RNA Qual PCR NEGATIVE (Negative); SARS COV2 PCR INHOUSE NEGATIVE (Negative)
[2024-01-20 22:46] LABS: ~Lactic Acid-LAB USE ONLY 2.4 mmol/L (0.5-2.0)
[2024-01-20] MEDS: Acetaminophen Supp 650 MG SUPP.RECT PR (23:04)
[2024-01-20] MEDS: Naloxone HCl 2 MG/2 ML SYRINGE IVPUSH (23:09)
[2024-01-20] MEDS: LORazepam 2 MG/ML VIAL 0.5 MG IVPUSH (23:23)
[2024-01-20 23:29] LABS: ABG Refer to POC result
[2024-01-20 23:30] LABS: ABG Base Excess -8.2 mmol/L; ABG HCO3 16 mmol/L (22-26); ABG pCO2 30 mmHg (32-45); ABG pH 7.33 (7.35-7.45); ABG pO2 54 mmHg (83-108)
[2024-01-21] VITALS (55 sets, daily range): BP systolic 92–151; BP diastolic 40–75; PULSE 82–106; RESP 14–54; TEMP 34.7–37.6; O2SAT 87–98; BMI 26.9
--- NOTE | 2024-01-21 00:05 | PM.CCHP ---
History of Present Illness Date of Service: 01/20/24 <MARTY Anne - Last Filed: 01/21/24 04:08> Attending physician on admission: Felipe Theodore <MARTY Anne - Last Filed: 01/21/24 04:08> Chief Complaint: Acute hypoxic respiratory failure/polysubstance overdose/sepsis/PNA/UTI <MARTY Anne - Last Filed: 01/21/24 04:08> 64-year-old female well known to this facility who has underlying history of polysubstance abuse, recurrent episodes of hypoxic respiratory failure,Diabetic osteomyelitis with [id number] amputation of the right lower extremity, charcoal foot, cellulitis, gastritis, constipation, CHF, DKA, pulmonary embolism, pulmonary nodule, COPD, tobacco abuse, medical noncompliance among others. Patient had come to the emergency room via EMS, no family members had arrived after. Patient was recently seen in the emergency room 3 days ago and prescribed Augmentin. ?Patient was reported to be unresponsive and having low blood sugar however intervention by EMS included IV dextrose causing her blood sugar to be 160 upon arrival to the ER.? She had been hypoxic with an O2 sat of 70% and placed on a non-rebreather mask.? Per reports the patient may have had a mistaken dose administration of insulin. While in the ER, patient had been found to be hypothermic, hypoxic and tachypneic.? She had been sleepy but arousable and no Narcan had been administered even though the patient does have a history of opiate abuse.? Several cc of thick green sputum had been suctioned during ER visit.? Her workup is significant for temperature 95.6 degrees insight and 68% non-rebreather mask, subsequently placed on high-flow nasal cannula bring in her O2 sat to 92%.? According to the physician academic assistant from the ER the patient had been doing well for several hours however later on she became more somnolent and hypoxic to the point that she would not be able to sat greater than 75 or 80% despite of high-flow administration therefore the patient was tried on CPAP; venous blood gas did not show any hypercapnia.? Patient received 1 L of IV fluid, Zosyn given that her x-ray showed worsening bilateral patchy infiltrates questionable pneumonitis.? She did have recurrent hypoglycemia down to 59 and another amp of D50 had been given.? After given her her 1 L of IV fluid the patient became more wheezy and they were concerned that she went into fluid overload therefore Lasix was administered the patient was placed on BiPAP. Upon arrival to the emergency room, patient was hard to arouse, responded to painful stimuli only, on BiPAP with 60% FiO2 satting only 80%, pupils are pinpointed, I requested Narcan 4 mg IV push to be given with significantly good effect as the patient right away to open her eyes, young and became alert but at the same time agitated, more hypoxic and tachypneic. ?It is clear to me that the patient has significant respiratory distress, suffering from an overdose and also underlying infections therefore I think the best course is to transfer to the ICU for emergent intubation. <MARTY Anne - Last Filed: 01/21/24 04:08> Review of Systems Review of Systems: Unobtainable, patient in significant respiratory distress on BiPAP <MARTY Anne - Last Filed: 01/21/24 04:08> [facility] Past Medical History Medical History: Medical History Diabetic osteomyelitis Below-knee amputation of right lower extremity Osteomyelitis of ankle Charcot foot due to diabetes mellitus Acute hyperglycemia Cellulitis Gastroenteritis Gastritis Constipation Diabetic foot ulcer New onset of congestive heart failure DKA (diabetic ketoacidoses) COVID-19 Dyslipidemia Glaucoma Pulmonary emboli Depression Chronic prescription opiate use Diabetes mellitus Pulmonary nodule Tobacco dependence COPD (chronic obstructive pulmonary disease) <MARTY Anne Last Filed: 01/21/24 04:08> Family History Family History: Family History Other CVA (cerebral vascular accident) <MARTY Anne Last Filed: 01/21/24 04:08> Family history: reviewed and not pertinent <MARTY Anne Last Filed: 01/21/24 04:08> Surgical History Surgical History: Surgical History History of below-knee amputation of right lower extremity (01/13/22) Cataract extraction status, right eye Cataract extraction status, left eye Hx of cholecystectomy <MARTY Anne - Last Filed: 01/21/24 04:08> Social History Social History: Social History Household Members: Unknown / Unable to assess Housing: Unknown / Unable to assess Housing Other:: hotel Do you presently have visiting nurse or other home services: Yes Unable to assess alcohol history related to: Unknown Alcohol intake: never Comment: refused telesitter Patient Tobacco Use Status: Tobacco use Unknown Tobacco use type: Cigarette Cigarette Packs Per Day: 0.3 Cigarettes Per Day: 6.0 Years Smoked: 50 e-Cigarette/Vaping Use: Currently Using Second Hand Smoke Exposure: No Use of substances other than those prescribed or required for medical reasons: Unable to respond Substance Use Type: Former Substance User Currently Displaying Signs/Symptoms of Drug Intoxication Withdrawal: No Advance Directives: Yes Advance Directives on File: Yes Advance Directives Date on File: 10/20/23 Do you have a plan to hurt others: No Plan Nutrition Risks: On aspiration precautions Patient : No service: No Current occupational status: disabled <MARTY Anne - Last Filed: 01/21/24 04:08> Meds Allergies/Adverse reactions: Allergies Allergy/AdvReac Type Severity Reaction Status Date / Time No Known Allergies Allergy Verified 01/20/24 17:38 <MARTY Anne - Last Filed: 01/21/24 04:08> Active Medications: Current Medications Dextrose (D10) 250 mls @ 750 mls/hr IV Q15M PRN PRN Reason: per Hypoglycemia Standing Ord. Last Infusion: 01/20/24 18:44 Dose: Infused Lactated Ringer's (Lr) 1,000 mls @ 999 mls/hr IV .Q1H1M PRECIOUS Stop: 01/21/24 00:45 Vancomycin HCl 1,000 mg/ (Sodium Chloride) 270 mls @ 270 mls/hr IV PREOP ONE Stop: 01/21/24 00:53 Albumin Human (Kedbumin 25 %) 100 mls @ 133.333 mls/hr IV Q1H PRECIOUS Stop: 01/21/24 01:29 Propofol (Diprivan) 1,000 mg in 100 mls @ 0 mls/hr IVCONT .Q0M PRECIOUS; Protocol Vancomycin HCl 1,500 mg/ (Sodium Chloride) 500 mls @ 333.333 mls/hr IV ONCE ONE Stop: 01/21/24 01:44 Pantoprazole Sodium (Pantoprazole Sodium 40 Mg/10 Ml Vial) 40 mg IVPUSH DAILY [facility] Pharmacy Consult (Consult Rx Vancomycin Dosing) 1 each MISCELLANE DAILY PRN PRN Reason: Consult order <MARTY Anne - Last Filed: 01/21/24 04:08> Home medications: Home Medications ?Medication ?Instructions ?Recorded ?Confirmed ?Last Taken ?Type albuterol sulfate 90 mcg/actuation 2 puff PO Q4H PRN Respiratory 04/24/20 01/21/24 10/12/23 History aerosol inhaler Distress aspirin 81 mg tablet,delayed 81 mg PO DAILY 04/24/20 01/21/24 12/29/23 History release atorvastatin 40 mg tablet 40 mg PO DAILY 04/24/20 01/21/24 12/29/23 History bupropion HCl 150 mg tablet,12 hr 150 mg PO BID 04/24/20 01/21/24 12/29/23 History sustained-release lancets 33 gauge #100 ea 04/24/20 01/12/24 10/12/23 History metformin 1,000 mg tablet 1,000 mg PO BIDWM 04/24/20 01/21/24 12/29/23 History omeprazole 20 mg capsule,delayed 20 mg PO DAILY@0630 04/24/20 01/21/24 12/29/23 History release gabapentin 600 mg tablet 600 mg PO TID 05/03/20 01/21/24 12/29/23 History acetaminophen 325 mg capsule 325 mg PO QID PRN Pain 11/02/23 01/21/24 Unknown History insulin aspart (niacinamide) 0 sliding scale dose subcut 12/31/23 01/21/24 12/29/23 History (U-100) 100 unit/mL subcutaneous USEASDIRECTD solution (Fiasp U-100 Insulin) metoprolol succinate 25 mg 25 mg PO DAILY 12/31/23 01/21/24 12/29/23 History tablet,extended release 24 hr mirtazapine 7.5 mg tablet 7.5 mg PO BEDTIME 12/31/23 01/21/24 12/29/23 History fluticasone furoate 100 1 inh inhalation DAILY 01/01/24 01/21/24 12/29/23 History mcg/actuation blister powder for inhalation (Arnuity Ellipta) methadone 10 mg/mL oral concentrate 130 mg PO DAILY 01/01/24 01/12/24 12/30/23 History zolpidem 10 mg tablet 10 mg PO BEDTIME PRN Sleep 01/01/24 01/21/24 Unknown History <MARTY Anne - Last Filed: 01/21/24 04:08> Physical Exam Vital Signs: Vital Signs: Last Vital Signs Temp 100.3 F 01/20/24 22:15 Pulse 78 01/20/24 22:15 Resp 18 01/20/24 22:15 BP 99/47 L 01/20/24 22:15 Pulse Ox 92 01/20/24 22:15 O2 Del Method BiPAP 01/20/24 22:15 BMI result Body Mass Index 28.9 <MARTY Anne Last Filed: 01/21/24 04:08> 143/61, 103, 25, 90% VENT SETTINGS : ?AC, 300, 14, 6, 100% ? General:? Somnolent on BiPAP responded to painful stimuli, in [id number] respiratory distress ? Skin:? Intact, no lesions, edema, erythema, clubbing or cyanosis.? No ulcers. ? HEENT:? Head is normocephalic, atraumatic, pupils pinpointed and nonreactive.? Neck is supple, no JVD or lymphadenopathy, no masses. ? Cardiac:? Clear S1-S2, no murmurs rubs or gallops. ? Pulmonary:? Very diminished lung sounds bilaterally with crackles and rhonchi bilaterally and throughout ? Abdomen:? Protuberant, positive bowel sounds in all 4 quadrants.? Soft ? Musculoskeletal:? No bony abnormalities, on passive range of motion at the major joints there is no cogwheeling or crepitus, no left lower extremity edema. Right BKA ? ? Neurologic:? As above otherwise unable to assess ? Vascular:? 2+ pulses upper and lower extremities distally. ?Less than 2nd capillary refill of the finger and toes bilaterally upper and left lower extremity <MARTY Anne - Last Filed: 01/21/24 04:08> Results Labs CBC and Chem 7: 01/21/24 05:20 01/21/24 05:20 <MARTY Anne - Last Filed: 01/21/24 04:08> Labs: Laboratory Results - last 24 hr 01/20/24 01/20/24 01/20/24 17:09 17:30 17:33 MCV 89.5 MCH 29.0 MCHC 32.4 RDW 15.9 Plt Count 338 D MPV 11.4 Immature Gran % (Auto) 0.6 H Neut % (Auto) 85.8 H Lymph % (Auto) 7.3 L [place] % (Auto) 5.9 Eos % (Auto) 0.2 Baso % (Auto) 0.2 Lymph # (Auto) 1.0 L [place] # (Auto) 0.8 Eos # (Auto) 0.0 Baso # (Auto) 0.0 Abs Immat Gran (auto) 0.08 H Absolute Neuts (auto) 11.3 H Absolute Nucleated RBC 0.000 Nucleated RBC % (auto) 0.0 PT 13.7 H INR 1.1 O2 Saturation ABG pH at Pt Temp ABG pCO2 at Pt Temp ABG pO2 at Pt Temp ABG HCO3 ABG Base Excess (Actual) VBG pH 7.34 VBG pCO2 36 VBG pO2 43 VBG HCO3 19 L VBG O2 Saturation 67.0 VBG Base Excess -5.3 Anion Gap Estim Creat Clear Calc Estimated GFR POC Glucose 69 Random Glucose Lactic Acid 2.2 H* Lactic Acid F/U @ 2Hr Calcium Total Bilirubin AST ALT Alkaline Phosphatase Troponin I High Sens 5.0 B-Natriuretic Peptide 263 H Total Protein Albumin Lipase Urine Color Urine Appearance Urine pH Ur Specific [place] Urine Protein Urine Glucose (UA) Urine Ketones Urine Blood Urine Nitrite Ur Leukocyte Esterase Urine RBC Urine WBC Ur Squamous Epith Cells Urine Bacteria Hyaline Casts Urine Opiates Screen Ur Buprenorphine Scrn Ur Oxycodone Screen Urine Methadone Screen Urine Fentanyl Screen Ur Barbiturates Screen Ur Phencyclidine Scrn Ur Amphetamines Screen U Benzodiazepines Scrn Urine Cocaine Screen U Marijuana (THC) Screen Influenza Type A (PCR) Influenza Type B (PCR) RSV RNA Qual (PCR) SARS-CoV-2 RNA (RT-PCR) 01/20/24 01/20/24 01/20/24 17:41 18:13 18:58 MCV MCH MCHC RDW Plt Count MPV Immature Gran % (Auto) Neut % (Auto) Lymph % (Auto) [place] % (Auto) Eos % (Auto) Baso % (Auto) Lymph # (Auto) [place] # (Auto) Eos # (Auto) Baso # (Auto) Abs Immat Gran (auto) Absolute Neuts (auto) Absolute Nucleated RBC Nucleated RBC % (auto) PT INR O2 Saturation ABG pH at Pt Temp ABG pCO2 at Pt Temp ABG pO2 at Pt Temp ABG HCO3 ABG Base Excess (Actual) VBG pH VBG pCO2 VBG pO2 VBG HCO3 VBG O2 Saturation VBG Base Excess Anion Gap Estim Creat Clear Calc Estimated GFR POC Glucose 120 H 59 L* 120 H Random Glucose Lactic Acid Lactic Acid F/U @ 2Hr Calcium Total Bilirubin AST ALT Alkaline Phosphatase Troponin I High Sens B-Natriuretic Peptide Total Protein Albumin Lipase Urine Color Urine Appearance Urine pH Ur Specific [place] Urine Protein Urine Glucose (UA) Urine Ketones Urine Blood Urine Nitrite Ur Leukocyte Esterase Urine RBC Urine WBC Ur Squamous Epith Cells Urine Bacteria Hyaline Casts Urine Opiates Screen Ur Buprenorphine Scrn Ur Oxycodone Screen Urine Methadone Screen Urine Fentanyl Screen Ur Barbiturates Screen Ur Phencyclidine Scrn Ur Amphetamines Screen U Benzodiazepines Scrn Urine Cocaine Screen U Marijuana (THC) Screen Influenza Type A (PCR) Influenza Type B (PCR) RSV RNA Qual (PCR) SARS-CoV-2 RNA (RT-PCR) 01/20/24 01/20/24 01/20/24 19:09 19:20 19:28 MCV MCH MCHC RDW Plt Count MPV Immature Gran % (Auto) Neut % (Auto) Lymph % (Auto) [place] % (Auto) Eos % (Auto) Baso % (Auto) Lymph # (Auto) [place] # (Auto) Eos # (Auto) Baso # (Auto) Abs Immat Gran (auto) Absolute Neuts (auto) Absolute Nucleated RBC Nucleated RBC % (auto) PT INR O2 Saturation ABG pH at Pt Temp ABG pCO2 at Pt Temp ABG pO2 at Pt Temp ABG HCO3 ABG Base Excess (Actual) VBG pH VBG pCO2 VBG pO2 VBG HCO3 VBG O2 Saturation VBG Base Excess Anion Gap 17 Estim Creat Clear Calc 28.3 Estimated GFR 32 POC Glucose 83 Random Glucose 95 Lactic Acid Lactic Acid F/U @ 2Hr Calcium 9.2 Total Bilirubin 0.3 AST 17 ALT 10 Alkaline Phosphatase 78 Troponin I High Sens B-Natriuretic Peptide Total Protein 7.6 Albumin 3.5 Lipase 28 Urine Color Yellow Urine Appearance Cloudy Urine pH 5.0 Ur Specific [place] 1.010 Urine Protein 30 (1+) H Urine Glucose (UA) 100 H Urine Ketones Negative Urine Blood Small (1+) H Urine Nitrite Negative Ur Leukocyte Esterase Large (3+) H Urine RBC 6-10 H Urine WBC 11-20 H Ur Squamous Epith Cells 6-10 Urine Bacteria None Seen Hyaline Casts 6-10 Urine Opiates Screen Not Detected Ur Buprenorphine Scrn Not Detected Ur Oxycodone Screen Not Detected Urine Methadone Screen Positive H Urine Fentanyl Screen POSITIVE H Ur Barbiturates Screen Not Detected Ur Phencyclidine Scrn Not Detected Ur Amphetamines Screen Not Detected U Benzodiazepines Scrn Not Detected Urine Cocaine Screen POSITIVE H U Marijuana (THC) Screen Not Detected Influenza Type A (PCR) Influenza Type B (PCR) RSV RNA Qual (PCR) SARS-CoV-2 RNA (RT-PCR) 01/20/24 01/20/24 01/20/24 19:49 20:35 21:38 MCV MCH MCHC RDW Plt Count MPV Immature Gran % (Auto) Neut % (Auto) Lymph % (Auto) [place] % (Auto) Eos % (Auto) Baso % (Auto) Lymph # (Auto) [place] # (Auto) Eos # (Auto) Baso # (Auto) Abs Immat Gran (auto) Absolute Neuts (auto) Absolute Nucleated RBC Nucleated RBC % (auto) PT INR O2 Saturation ABG pH at Pt Temp ABG pCO2 at Pt Temp ABG pO2 at Pt Temp ABG HCO3 ABG Base Excess (Actual) VBG pH VBG pCO2 VBG pO2 VBG HCO3 VBG O2 Saturation VBG Base Excess Anion Gap Estim Creat Clear Calc Estimated GFR POC Glucose 77 118 H Random Glucose Lactic Acid Lactic Acid F/U @ 2Hr Calcium Total Bilirubin AST ALT Alkaline Phosphatase Troponin I High Sens B-Natriuretic Peptide Total Protein Albumin Lipase Urine Color Urine Appearance Urine pH Ur Specific [place] Urine Protein Urine Glucose (UA) Urine Ketones Urine Blood Urine Nitrite Ur Leukocyte Esterase Urine RBC Urine WBC Ur Squamous Epith Cells Urine Bacteria Hyaline Casts Urine Opiates Screen Ur Buprenorphine Scrn Ur Oxycodone Screen Urine Methadone Screen Urine Fentanyl Screen Ur Barbiturates Screen Ur Phencyclidine Scrn Ur Amphetamines Screen U Benzodiazepines Scrn Urine Cocaine Screen U Marijuana (THC) Screen Influenza Type A (PCR) NEGATIVE Influenza Type B (PCR) NEGATIVE RSV RNA Qual (PCR) NEGATIVE SARS-CoV-2 RNA (RT-PCR) NEGATIVE 01/20/24 01/20/24 01/20/24 22:03 22:26 23:22 MCV MCH MCHC RDW Plt Count MPV Immature Gran % (Auto) Neut % (Auto) Lymph % (Auto) [place] % (Auto) Eos % (Auto) Baso % (Auto) Lymph # (Auto) [place] # (Auto) Eos # (Auto) Baso # (Auto) Abs Immat Gran (auto) Absolute Neuts (auto) Absolute Nucleated RBC Nucleated RBC % (auto) PT INR O2 Saturation 81.0 ABG pH at Pt Temp 7.33 L ABG pCO2 at Pt Temp 30 L ABG pO2 at Pt Temp 54 L ABG HCO3 16 L ABG Base Excess (Actual) -8.2 VBG pH VBG pCO2 VBG pO2 VBG HCO3 VBG O2 Saturation VBG Base Excess Anion Gap Estim Creat Clear Calc Estimated GFR POC Glucose 173 H Random Glucose Lactic Acid Lactic Acid F/U @ 2Hr 2.4 H* Calcium Total Bilirubin AST ALT Alkaline Phosphatase Troponin I High Sens B-Natriuretic Peptide Total Protein Albumin Lipase Urine Color Urine Appearance Urine pH Ur Specific [place] Urine Protein Urine Glucose (UA) Urine Ketones Urine Blood Urine Nitrite Ur Leukocyte Esterase Urine RBC Urine WBC Ur Squamous Epith Cells Urine Bacteria Hyaline Casts Urine Opiates Screen Ur Buprenorphine Scrn Ur Oxycodone Screen Urine Methadone Screen Urine Fentanyl Screen Ur Barbiturates Screen Ur Phencyclidine Scrn Ur Amphetamines Screen U Benzodiazepines Scrn Urine Cocaine Screen U Marijuana (THC) Screen Influenza Type A (PCR) Influenza Type B (PCR) RSV RNA Qual (PCR) SARS-CoV-2 RNA (RT-PCR) <MARTY Anne - Last Filed: 01/21/24 04:08> Imaging Radiologist's Impressions: Impressions Chest X-Ray 01/20/24 18:38 IMPRESSION: Worsened patchy bilateral airspace disease now more densely opacifying both lung bases. Infectious etiology would be suspected in the acute setting. Aspiration could have this appearance and should be clinically correlated. <MARTY Anne - Last Filed: 01/21/24 04:08> Assessment and Plan (1) Acute on chronic hypoxic respiratory failure: Status: Acute <Isaak Rene, PA - Last Filed: 01/21/24 04:08> (2) Sepsis: Status: Acute <Isaak Rene, PA - Last Filed: 01/21/24 04:08> (3) Aspiration pneumonia: Status: Acute <Isaak Rene, PA - Last Filed: 01/21/24 04:08> (4) COPD exacerbation: Status: Acute <Isaak Rene, PA - Last Filed: 01/21/24 04:08> (5) Opioid overdose: Status: Acute <Isaak Rene, PA - Last Filed: 01/21/24 04:08> (6) UTI (urinary tract infection): Status: Acute <Isaak Rene, PA - Last Filed: 01/21/24 04:08> (7) COPD with acute exacerbation: Status: Acute <Isaakdariel SchaferRene, PA - Last Filed: 01/21/24 04:08> Patient will be admitted to the ICU, monitor vital signs, I's and O's, she appears to be in significant respiratory distress, using accessory muscles and tachypneic at 40 breaths per minute clearly tiring out. I do not think that CPAP is doing of any help, review of the ABG shows no hypercapnia, when she was tried on high-flow O2 the patient was not able to keep a sat above 75% on 100% delivery. Patient will need to be intubated immediately for airway protection and further oxygenation management, I am concerned that she also may have mucus plug, will order a sputum culture and Gram stain, start her on vancomycin given her recent admissions to the hospital, continue with Zosyn, continue with Solu-Medrol, albuterol, DuoNebs. Patient has a history of PE, given the significant hypoxia I can not rule out pulmonary embolism, a CT angiogram of the chest can not be done given her renal dysfunction, rather I will treat her with Lovenox 1 milligram/kilogram every 12 hours assuming that she does have a pulmonary embolism, she could have a ventilation perfusion scan later on for further definition. We will order a 2 L of IV fluids, repeat laboratories including lactic acid. We will also give her albumin. Start insulin sliding scale Patient will be kept sedated with propofol and if needed fentanyl. If she does become hypotensive given the effects of propofol, Levophed will be added but at this point she is hemodynamically stable. Review of the post intubation, post central line and post OG tube insertion shows all lines are in good position, there is no pneumothorax. Continues appearance of bilateral patchy infiltrates GI prophylaxis will start her on IV PPI DVT prophylaxis: As above-mentioned will treat her with 1 milligram/kilogram Lovenox subQ q 24h Critical care time used for critical evaluation of this patient, diagnosis, treatment and coordination of care, review her records and documentation TOTAL CRITICAL CARE TIME 90??? MIN . discussion and coordination with consultants, completely separate from any procedures performed. Patient's care was discussed in detail with Dr. Theodore is aware of all the above as well as the plan of care for this patient. <MARTY Anne - Last Filed: 01/21/24 04:08> Patient will be admitted to the ICU, monitor vital signs, I's and O's, she appears to be in significant respiratory distress, using accessory muscles and tachypneic at 40 breaths per minute clearly tiring out. I do not think that CPAP is doing of any help, review of the ABG shows no hypercapnia, when she was tried on high-flow O2 the patient was not able to keep a sat above 75% on 100% delivery. Patient will need to be intubated immediately for airway protection and further oxygenation management, I am concerned that she also may have mucus plug, will order a sputum culture and Gram stain, start her on vancomycin given her recent admissions to the hospital, continue with Zosyn, continue with Solu-Medrol, albuterol, DuoNebs. Patient has a history of PE, given the significant hypoxia I can not rule out pulmonary embolism, a CT angiogram of the chest can not be done given her renal dysfunction, rather I will treat her with Lovenox 1 milligram/kilogram every 12 hours assuming that she does have a pulmonary embolism, she could have a ventilation perfusion scan later on for further definition. We will order a 2 L of IV fluids, repeat laboratories including lactic acid. We will also give her albumin. Start insulin sliding scale Patient will be kept sedated with propofol and if needed fentanyl. If she does become hypotensive given the effects of propofol, Levophed will be added but at this point she is hemodynamically stable. Review of the post intubation, post central line and post OG tube insertion shows all lines are in good position, there is no pneumothorax. Continues appearance of bilateral patchy infiltrates In summary this lady with history of COPD, diabetes, history of drug abuse presented to the ED with multiple drug overdose where her UDS was positive for cocaine, fentanyl and methadone with altered sensorium for the leading to aspiration and aspiration pneumonia thereby causing the hypoxic respiratory failure needing intubation and ventilator support. She is also in shock possibly cardiogenic from positive pressure ventilation in the setting of propofol and possible underlying RV dysfunction from chronic COPD needing Levophed support. Currently on Zosyn and vancomycin for antibiotic coverage, around the clock Duo nebs and IV steroids for the management of COPD exacerbation. She is on Precedex, propofol and drip for analgesia, sedation and anxiolysis. We will start the patient on tube feeds, we will closely monitor renal function. Patient had multiple episodes of hypotension and this is related to titration of sedation. Given patient's ongoing agitation she required significant doses of titration of propofol and Precedex leading to fluctuation in blood pressures. GI prophylaxis will start her on IV PPI DVT prophylaxis: As above-mentioned will treat her with 1 milligram/kilogram Lovenox subQ q 24h Critical care time used for critical evaluation of this patient in the ED, admission to the critical care unit, formulating critical care plan and management, ventilator management, sedation management, managing episodes of hypotension, vasopressor management diagnosis, treatment and coordination of care, review her records and documentation TOTAL CRITICAL CARE TIME 90??? MIN . discussion and coordination with consultants, completely separate from any procedures performed. . <Felipe Theodore MD - Last Filed: 01/21/24 11:17> Total time managing care of this patient today: 90 minutes. <MARTY Anne - Last Filed: 01/21/24 04:08>
--- NOTE | 2024-01-21 00:07 | W.PM.CCHP ---
Procedures Date of Service Date of Service: 01/21/24 Abscess I/D Consent for Procedure: Emergent-no informed consent obtained Intubation Consent for Procedure: Emergent-no informed consent obtained Time out performed: Yes Sedative: propofol Mg given: 50 Paralytic: rocuronium Mg given: 30 Laryngoscope: fiber optic video scope ET tube size: 7 ET tube uncuffed: Yes Tube secured depth (cm): 22 Tube secured location: lips Tube placement confirmation: visualized tube passing through cords, equal breath sounds bilaterally, no breath sounds over epigastrium and confirmation by capnometry Patient tolerated procedure: well Intubation complications: none
--- NOTE | 2024-01-21 00:09 | W.PM.CCHP ---
Procedures Date of Service Date of Service: 01/21/24 Central Line Placement Left IJ: Consent for Procedure: Emergent-no informed consent obtained Time out performed: Yes Sterile Technique Used: Yes Patient placed on monitor/pulse ox: Yes MD prep: mask, gown and gloves Central line prep: Chlorhexidine scrub Ultrasound used for placement: Yes Central line lumen inserted: triple Post procedure: sutured in place, good blood return, all ports aspirated, flushed, capped and sterile dressing applied Post procedure x-ray: tip of catheter in good position and no pneumothorax seen Patient tolerated procedure: well and no complications Complications: none
[2024-01-21] MEDS: propofoL 200 MG/20 ML VIAL 50 MG IVPUSH ×3 (00:15→00:16)
[2024-01-21] MEDS: Rocuronium Bromide 50 MG/5 ML VIAL 30 MG IVPUSH (00:17)
[2024-01-21] MEDS: propofoL 1,000 MG/100 ML VIAL 11.66 MG IVCONT (00:20)
[2024-01-21 00:29] LABS: Reflex Lactate? 2 Y
[2024-01-21 01:04] LABS: Glucose, Whole Blood 304 mg/dL (60-115)
[2024-01-21] MEDS: Enoxaparin Sodium 80 MG/0.8 ML SYRINGE 70 MG SUBCUT (01:10)
[2024-01-21] MEDS: Norepinephrine Bitartrate/D5W 8 MG/250 ML PLAST..BAG 6.08 MG IV (01:28)
[2024-01-21] MEDS: Sodium Bicarbonate 8.4% 50 MEQ/50 ML SYRINGE 100 MEQ IVPUSH ×2 (01:36→03:26)
[2024-01-21] MEDS: fentaNYL citrate/NS 1,000 MCG/100 ML PLAST..BAG 10 MCG IVCONT (01:37)
[2024-01-21] MEDS: Albumin Human 25 % 100 ML 133.33 ML IV ×2 (01:42→02:46)
[2024-01-21 01:43] LABS: Venous Blood Gas Refer to POC result
[2024-01-21 01:44] LABS: Basophils Percent Auto 0.2 % (0-2); Eosinophils Absolute Auto 0.2 X10*3/uL (0.0-0.4); Eosinophils Percent Auto 1.1 % (0-4); Hematocrit 26.7 % (37.0-47.0); Hemoglobin 8.8 g/dl (12.0-16.0); Imm Gran Abs Auto 0.05 X10*3/uL (0.00-0.03); Imm Gran Pct Auto 0.3 % (0.0-0.4); Lymphocytes Absolute Auto 0.3 X10*3/uL (1.2-4.9); Lymphocytes Percent Auto 1.5 % (20-40); MANUAL DIFF FLAG NO; Mean Corpuscular Hemoglobin 29.1 pg (27.0-33.0); Mean Corpuscular Volume 88.4 fL (80.0-98.0); Mean Platelet Volume 10.9 fL (9.4-12.3); Monocytes Absolute Auto 0.6 X10*3/uL (0.1-1.2); Monocytes Percent Auto 3.1 % (2-11); Neutrophils Absolute Auto 16.5 x10*3/uL (2.0-8.3); Neutrophils Percent Auto 93.8 % (45-73); Platelet Count 328 X10*3/uL (160-400); Red Blood Count 3.02 X10*6/uL (4.20-5.50); Red Cell Distribution Width 15.8 % (11.0-16.0); SCAN SMEAR FLAG 1; White Blood Count 17.6 X10*3/uL (4.8-10.8)
[2024-01-21] MEDS: methylPREDNISolone Sod Succ 40 MG/ML VIAL IVPUSH ×2 (01:44→09:58)
[2024-01-21] MEDS: Lactated Ringers 1,000 ML 999 ML IV (01:45)
[2024-01-21] MEDS: vancomycin HCL 1,500 MG in 0.9 % Sodium Chloride 500 ML 333.33 MG IV (01:46)
[2024-01-21 01:49] LABS: VBG Base Excess -7.2 mmol/L; VBG HCO3 18 mmol/L (22-26); VBG pCO2 36 mmHg; VBG pO2 83 mmHg
[2024-01-21 01:52] LABS: ~Lactic Acid-LAB USE ONLY 1.3 mmol/L (0.5-2.0)
[2024-01-21 01:58] LABS: Alanine Aminotransferase 9 U/L (0-31); Albumin Level 3.1 g/dL (3.5-5.0); Alkaline Phosphatase 70 U/L (39-117); Anion Gap 21 (12-20); Aspartate Amino Transferase 19 U/L (5-31); Bilirubin Total 0.3 mg/dL (0.0-1.0); Blood Urea Nitrogen 26 mg/dL (9-16); Calcium 8.7 mg/dL (8.4-10.2); Carbon Dioxide 16 mmol/L (22-29); Chloride 102 mmol/L (96-108); Estimated Glomerular Filt Rate 31; Glucose Random 324 mg/dL (60-115); Potassium 4.1 mmol/L (3.3-5.1); Sodium 135 mmol/L (135-145); Total Protein 6.8 g/dL (6.5-8.0)
[2024-01-21 03:20] LABS: Glucose, Whole Blood 314 mg/dL (60-115)
[2024-01-21] MEDS: Insulin Lispro 100 UNIT/ML 3 ML VIAL SUBCUT ×4 (03:25→21:50)
[2024-01-21] MEDS: dexmedeTOMIDidine HCL/NS 400 MCG/100 ML INFUS..BTL 16.2 MCG IVCONT (03:30)
[2024-01-21] MEDS: Lactated Ringers 1,000 ML 100 ML IVCONT ×3 (03:31→19:37)
[2024-01-21] MEDS: Albuterol/Iprat 2.5/0.5MG 3 ML AMPUL.NEB INHALE ×4 (03:50→20:33)
[2024-01-21] MEDS: Albumin Human 25 % 100 ML IV ×2 (03:53→05:08)
[2024-01-21] MEDS: propofoL 1,000 MG/100 ML VIAL 19.44 MG IVCONT ×2 (04:14→09:02)
[2024-01-21] MEDS: Albuterol Sulfate (0.083%) 2.5 MG/3 ML VIAL.NEB INHALE (04:17)
[2024-01-21 05:32] LABS: Hematocrit 22.4 % (37.0-47.0); Hemoglobin 7.5 g/dl (12.0-16.0); Mean Corpuscular HGB Conc 33.5 g/dl (31.0-35.0); Mean Corpuscular Hemoglobin 28.8 pg (27.0-33.0); Mean Corpuscular Volume 86.2 fL (80.0-98.0); Mean Platelet Volume 10.7 fL (9.4-12.3); Platelet Count 259 X10*3/uL (160-400); Red Cell Distribution Width 15.9 % (11.0-16.0); VBG Base Excess 1.9 mmol/L; VBG HCO3 25 mmol/L (22-26); VBG pCO2 34 mmHg; VBG pH 7.47 (7.32-7.43); VBG pO2 51 mmHg
[2024-01-21 05:33] LABS: Venous Blood Gas Refer to POC result
[2024-01-21 05:42] LABS: WBC ABN SCTR FOR CBC 1; White Blood Count 19.2 X10*3/uL (4.8-10.8)
[2024-01-21 05:54] LABS: Alanine Aminotransferase 7 U/L (0-31); Albumin Level 4.3 g/dL (3.5-5.0); Alkaline Phosphatase 57 U/L (39-117); Anion Gap 22 (12-20); Aspartate Amino Transferase 14 U/L (5-31); Bilirubin Total 0.4 mg/dL (0.0-1.0); Blood Urea Nitrogen 22 mg/dL (9-16); Calcium 8.9 mg/dL (8.4-10.2); Carbon Dioxide 23 mmol/L (22-29); Chloride 101 mmol/L (96-108); Creatinine Clr Calc Pharmacy 30.2; Estimated Glomerular Filt Rate 34; Glucose Random 384 mg/dL (60-115); Potassium 3.2 mmol/L (3.3-5.1); Sodium 143 mmol/L (135-145); Total Protein 7.2 g/dL (6.5-8.0)
[2024-01-21 05:57] LABS: Band Neutrophils Percent 19 % (3-5); Lymphocytes Absolute Manual 0.4 X10*3/uL (1.2-4.9); Lymphocytes Percent Manual 2 % (20-40); Monocytes Absolute Manual 0.2 X10*3/uL (0.1-1.2); Monocytes Percent Manual 1 % (2-11); Neutrophils Absolute Manual 18.6 X10*3/uL (2.0-8.3); Neutrophils Percent Manual 78 % (45-73)
[2024-01-21 06:00] LABS: Ovalocytes 1+ (5-14) /OIF; Platelet Estimate NORMAL (NORMAL); Platelet Morphology Comment NORMAL; RBC Morphology NOTED
[2024-01-21 06:01] LABS: Burr Cells 1+ (0-2) /OIF
[2024-01-21] MEDS: Insulin Regular, Human 100 UNIT/ML 10 ML VIAL 10 UNIT IVPUSH (06:06)
--- NOTE | 2024-01-21 07:00 | PC.NURSE ---
Patient arrived to ICU from ED at approximately 0010. On arrival- pt on Bipap 60%, tachypneic, sating 87-88%. Drowsy but arousable to name, tracking speaker, restless/ pulling at bipap, able to follow simple commands, MORAES. Pt emergently intubated- premedicated with 150mg IVP Propofol and 30mg IVP Rocuronium. ETT 7.0, 22 at the lip. Propofol gtt started and titrated per SEP. OGT and right TLC placed. XR obtained to confirm placement- see report. Thick yellow inline secretions- sputum culture obtained. Lau placed- draining pale yellow. Levophed gtt started and titrated per SEP. Pt remained tachypneic and was started on Fentanyl gtt per SEP then changed to Precedex gtt- started and titrated per SEP. SubQ lovenox, IV Vanco, 1L bolus of LR and 4 bags of Albumin given per SEP. Report given to oncoming RN.
--- NOTE | 2024-01-21 07:49 | PHA.MEDREC ---
Pharmacy Consult ? Medication Reconciliation Pharmacy has completed the medication reconciliation. Pt was recently discharged on 01/16 with a pharmacy med rec done on 01/11. No changes noted on fill history compared to discharge med list. Leaving Methadone unverified until we can confirm via verification form.
[2024-01-21] MEDS: Pantoprazole Sodium 40 MG/10 ML VIAL IVPUSH (07:51)
[2024-01-21] MEDS: dexmedeTOMIDidine HCL/NS 400 MCG/100 ML INFUS..BTL 24.3 MCG IVCONT ×5 (07:51→22:40)
[2024-01-21] MEDS: Potassium Chloride Packet 20 MEQ PACKET 40 MEQ PO (07:52)
--- NOTE | 2024-01-21 07:55 | HO.SKINPHOTO ---
Location: Right ischium Category: PI
--- NOTE | 2024-01-21 08:08 | PHA.PROG ---
Addendum entered by Nancie Adhikari reny 01/21/24 08:23: Predicted trough: 14. Original Note: Admission Date/Time: January 20, 2024 23:44 Indication: sepsis Weight in k.5 kg Adjusted body weight in Kg: [place] body weight in Kg: Obesity Dosing Indication % IBW: BMI 26.9 Serum Creatinine - Last 168 Hours 01/20/24 01/21/24 01/21/24 19:09 01:34 05:20 Creatinine 1.64 H 1.66 H 1.54 H Estimated CrCl and GFR - Last 168 Hours 01/20/24 01/21/24 01/21/24 19:09 01:34 05:20 Estim Creat Clear Calc 28.3 28.0 30.2 Estimated GFR 32 31 34 Vancomycin Loading Dose: 1500 x1 Current Vancomycin Dosing Regimen: 750 Q24H Vancomycin Monitoring using AUC goal of 400 - 600 range with trough as surrogate marker: 439 Date and Time for next Vancomycin Level to be drawn: 01/21 @2100 Pharmacist Comments on Vancomycin Plan: moved dose up to 2300 to be able to manage trough. renal function is poor, to be monitored and adjusted as needed. Vancomycin dosing will take advantage of [employer] as a clinical decision support tool that uses Bayesian modeling to calculate individual patient's pharmacokinetic parameters and forecast the patient's drug concentration time course with the target goal AUC 24 range of 400 - 600 mg/L/hr.
[2024-01-21] MEDS: fentaNYL citrate/NS 1,000 MCG/100 ML PLAST..BAG 2.5 MCG IVCONT (09:59)
[2024-01-21] MEDS: Piperacillin Sodium/Tazobactam 3.375 GM in 0.9 % Sodium Chloride 50 ML IV ×3 (09:59→21:40)
[2024-01-21 10:15] LABS: Glucose, Whole Blood 366 mg/dL (60-115)
--- NOTE | 2024-01-21 13:13 | MHC.CM.PN ---
Addendum entered by Jessie Ren 01/21/24 13:19: IMM in chart: HCP on file and verified w/[facility] Original Note: Pt admitted to ICU with respiratory distress: required intubation and unable to participate in CM assessment. Information obtained from HCP/son [facility] and review of previous visit a week prior. Pt resides w/[facility] and has VNA services. She receives Methadone from [facility] in [place]. Pt has a walker and cane but no other DME. /C planning ongoing but will likely include a return to home w/existing [facility] and family support. Son to transport.
[2024-01-21 13:48] LABS: Glucose, Whole Blood 335 mg/dL (60-115)
[2024-01-21] MEDS: Insulin Glargine,Hum.rec.anlog 100 UNIT/ML 10 ML VIAL 15 UNIT SUBCUT (14:24)
[2024-01-21 14:25] LABS: Glucose, Whole Blood 301 mg/dL (60-115)
[2024-01-21] MEDS: Enoxaparin Sodium 40 MG/0.4 ML SYRINGE SUBCUT (19:42)
[2024-01-21 21:45] LABS: MANUAL DIFF FLAG NO
[2024-01-21 21:47] LABS: Basophils Percent Auto 0.1 % (0-2); Hematocrit 23.3 % (37.0-47.0); Hemoglobin 7.8 g/dl (12.0-16.0); Imm Gran Abs Auto 0.06 X10*3/uL (0.00-0.03); Imm Gran Pct Auto 0.4 % (0.0-0.4); Lymphocytes Absolute Auto 0.8 X10*3/uL (1.2-4.9); Lymphocytes Percent Auto 5.6 % (20-40); Mean Corpuscular HGB Conc 33.5 g/dl (31.0-35.0); Mean Corpuscular Volume 86.6 fL (80.0-98.0); Monocytes Absolute Auto 0.8 X10*3/uL (0.1-1.2); Monocytes Percent Auto 5.8 % (2-11); Neutrophils Absolute Auto 12.2 x10*3/uL (2.0-8.3); Neutrophils Percent Auto 88.1 % (45-73); Platelet Count 236 X10*3/uL (160-400); Red Blood Count 2.69 X10*6/uL (4.20-5.50); Red Cell Distribution Width 15.9 % (11.0-16.0); White Blood Count 13.9 X10*3/uL (4.8-10.8)
[2024-01-21 21:49] LABS: Glucose, Whole Blood 240 mg/dL (60-115)
[2024-01-21 22:17] LABS: Alanine Aminotransferase 6 U/L (0-31); Albumin Level 3.9 g/dL (3.5-5.0); Alkaline Phosphatase 66 U/L (39-117); Anion Gap 17 (12-20); Aspartate Amino Transferase 13 U/L (5-31); Bilirubin Total 0.4 mg/dL (0.0-1.0); Blood Urea Nitrogen 18 mg/dL (9-16); Calcium 8.7 mg/dL (8.4-10.2); Carbon Dioxide 27 mmol/L (22-29); Chloride 107 mmol/L (96-108); Estimated Glomerular Filt Rate 41; Glucose Random 248 mg/dL (60-115); Potassium 4.1 mmol/L (3.3-5.1); Sodium 147 mmol/L (135-145); Total Protein 6.8 g/dL (6.5-8.0)
[2024-01-21] MEDS: fentaNYL citrate/NS 1,000 MCG/100 ML PLAST..BAG 7.5 MCG IVCONT (23:02)
[2024-01-21] MEDS: vancomycin HCL 750 MG in 0.9 % Sodium Chloride 250 ML 265 MG IV (23:11)
[2024-01-22] VITALS (52 sets, daily range): BP systolic 137–165; BP diastolic 64–81; PULSE 65–99; RESP 15–36; TEMP 34.9–37.4; O2SAT 86–99; BMI 26.7
[2024-01-22] MEDS: Piperacillin Sodium/Tazobactam 3.375 GM in 0.9 % Sodium Chloride 50 ML IV ×4 (02:47→21:21)
[2024-01-22] MEDS: dexmedeTOMIDidine HCL/NS 400 MCG/100 ML INFUS..BTL 24.3 MCG IVCONT ×3 (02:49→12:02)
[2024-01-22] MEDS: Lactated Ringers 1,000 ML 100 ML IVCONT (02:55)
[2024-01-22] MEDS: propofoL 1,000 MG/100 ML VIAL 19.44 MG IVCONT (03:48)
--- NOTE | 2024-01-22 04:05 | PC.NURSE ---
CARE ASSUMED 7PM..REMAINS TUBE/VENTED...PCV VENT SUPPORT,,,ORECIDEX 1.5 MCG/KG/HR AND FENTANYL 25 MCG/HR AT 7PM..INTERMITTANT PERIODS OF AGITATION..ATTEMPTING TO SIT UP IN BED AND SELF-EXTUBATED DESPITE BILATERAL WRIST RESTRAINTS...FENTANYL TITRATED TO 100 MCG/HR BUT INCREASED FREQUENCY OF PERIODS OF AGITATION...0330 AWAKE..AGITATED..MORAES..ATTEMPTING TO SIT UP AND SELF-EXTUBATED..DECREASED SAO2 WITH AGITATION TO 86%,,,FIO2 TITRATED TO 50%...ROPOFOL DRIP RESTARTED PER ICU PA WITH RESTFUL EFFECTSAO2 IMPROVED TO 85%...PRECIDEX WEANED PER MAR AFTER PROPOFOL DRIP INITIATED....PURWIK CATHETER COLLECTING YELLOW URINE....TUBE FEEDS HELD 8PM FOR RESIDUAL ASPIRATE 350ML...TUBE FEEDS RESTARTED 3AM AT 10 CC/HR..TO MONITOR RESIDUAL ASPIRATE..NSR,,NO ECTOPY
[2024-01-22] MEDS: Albuterol/Iprat 2.5/0.5MG 3 ML AMPUL.NEB INHALE ×5 (04:50→23:57)
[2024-01-22 05:18] LABS: Hematocrit 22.9 % (37.0-47.0); Hemoglobin 7.5 g/dl (12.0-16.0); Mean Corpuscular HGB Conc 32.8 g/dl (31.0-35.0); Mean Corpuscular Hemoglobin 29.2 pg (27.0-33.0); Mean Corpuscular Volume 89.1 fL (80.0-98.0); Mean Platelet Volume 11.3 fL (9.4-12.3); Platelet Count 238 X10*3/uL (160-400); Red Blood Count 2.57 X10*6/uL (4.20-5.50); Red Cell Distribution Width 16.2 % (11.0-16.0); White Blood Count 14.9 X10*3/uL (4.8-10.8)
[2024-01-22 05:47] LABS: Estimated Glomerular Filt Rate 44
[2024-01-22 05:48] LABS: Anion Gap 18 (12-20); Blood Urea Nitrogen 20 mg/dL (9-16); Carbon Dioxide 25 mmol/L (22-29); Chloride 108 mmol/L (96-108); Sodium 147 mmol/L (135-145)
[2024-01-22 05:49] LABS: Alanine Aminotransferase 6 U/L (0-31); Albumin Level 3.6 g/dL (3.5-5.0); Alkaline Phosphatase 65 U/L (39-117); Aspartate Amino Transferase 13 U/L (5-31); Bilirubin Total 0.4 mg/dL (0.0-1.0); Calcium 8.6 mg/dL (8.4-10.2); Glucose Random 210 mg/dL (60-115); Total Protein 6.5 g/dL (6.5-8.0)
[2024-01-22 06:09] LABS: Glucose, Whole Blood 148 mg/dL (60-115)
[2024-01-22] MEDS: fentaNYL citrate/NS 1,000 MCG/100 ML PLAST..BAG 2.5 MCG IVCONT (07:48)
[2024-01-22 08:19] LABS: Glucose, Whole Blood 226 mg/dL (60-115)
[2024-01-22] MEDS: methylPREDNISolone Sod Succ 40 MG/ML VIAL IVPUSH (08:21)
[2024-01-22] MEDS: Pantoprazole Sodium 40 MG/10 ML VIAL IVPUSH (08:21)
[2024-01-22] MEDS: Insulin Glargine,Hum.rec.anlog 100 UNIT/ML 10 ML VIAL 15 UNIT SUBCUT (08:21)
[2024-01-22] MEDS: Insulin Lispro 100 UNIT/ML 3 ML VIAL SUBCUT ×2 (08:22→14:48)
--- NOTE | 2024-01-22 08:56 | P.PNCC_ITS ---
Subjective Subjective Date of Service: 01/22/24 Critical Care Time (minutes): 40 Comment: On ventilator support this morning Physical Exam 2 Vital Signs: Vital Signs: Last Vital Signs Temp 98.9 F 01/22/24 03:00 Pulse 99 01/22/24 08:00 Resp 22 H 01/22/24 08:00 BP 156/75 H 01/22/24 08:00 Pulse Ox 96 01/22/24 08:00 O2 Del Method Mechanical Ventil ation 01/22/24 08:00 FiO2 40 01/22/24 08:00 BMI result Body Mass Index 26.7 General: acute distress, ill appearing and tired appearing Nutritional Appearance: Poorly nourished, poor hygiene Eyes: appearance normal, both eyes and all related structures; Alignment and Position: alignment normal and position normal Neck: No lymphadenopathy, no thyromegaly Resp: bilateral air entry equal, bilateral crackles heard Cardio: Regular rate, regular rhythm; Heart sounds: S1 normal heart sound present and S2 normal heart sound present GI: soft, nontender, no guarding, no hepatosplenomegaly : bladder normal to inspection, bladder normal to palpation, no renal angle tenderness Skin: no rashes or lesions noted and elasticity normal Neuro: Sedated and intubated, status post below-knee amputation of 1 leg Objective Data Labs 01/22/24 04:50 01/22/24 04:50 Labs: Laboratory Results - last 24 hr 01/21/24 01/21/24 01/21/24 09:56 13:44 14:21 WBC RBC Hgb Hct MCV MCH MCHC RDW Plt Count MPV Immature Gran % (Auto) Neut % (Auto) Lymph % (Auto) [place] % (Auto) Eos % (Auto) Baso % (Auto) Lymph # (Auto) [place] # (Auto) Eos # (Auto) Baso # (Auto) Abs Immat Gran (auto) Absolute Neuts (auto) Absolute Nucleated RBC Nucleated RBC % (auto) Sodium Potassium Chloride Carbon Dioxide Anion Gap BUN Creatinine Estim Creat Clear Calc Estimated GFR POC Glucose 366 H* 335 H 301 H Random Glucose Calcium Total Bilirubin AST ALT Alkaline Phosphatase Total Protein Albumin 01/21/24 01/21/24 01/22/24 21:31 21:46 02:40 WBC 13.9 H RBC 2.69 L Hgb 7.8 L Hct 23.3 L MCV 86.6 MCH 29.0 MCHC 33.5 RDW 15.9 Plt Count 236 MPV 11.0 Immature Gran % (Auto) 0.4 Neut % (Auto) 88.1 H Lymph % (Auto) 5.6 L [place] % (Auto) 5.8 Eos % (Auto) 0.0 Baso % (Auto) 0.1 Lymph # (Auto) 0.8 L [place] # (Auto) 0.8 Eos # (Auto) 0.0 Baso # (Auto) 0.0 Abs Immat Gran (auto) 0.06 H Absolute Neuts (auto) 12.2 H Absolute Nucleated RBC 0.000 Nucleated RBC % (auto) 0.0 Sodium 147 H Potassium 4.1 D Chloride 107 Carbon Dioxide 27 Anion Gap 17 BUN 18 H Creatinine 1.32 Estim Creat Clear Calc 34.0 Estimated GFR 41 POC Glucose 240 H 148 H Random Glucose 248 H Calcium 8.7 Total Bilirubin 0.4 AST 13 ALT 6 Alkaline Phosphatase 66 Total Protein 6.8 Albumin 3.9 01/22/24 01/22/24 04:50 08:16 WBC 14.9 H RBC 2.57 L Hgb 7.5 L Hct 22.9 L MCV 89.1 MCH 29.2 MCHC 32.8 RDW 16.2 H Plt Count 238 MPV 11.3 Immature Gran % (Auto) Neut % (Auto) Lymph % (Auto) [place] % (Auto) Eos % (Auto) Baso % (Auto) Lymph # (Auto) [place] # (Auto) Eos # (Auto) Baso # (Auto) Abs Immat Gran (auto) Absolute Neuts (auto) Absolute Nucleated RBC 0.000 Nucleated RBC % (auto) 0.0 Sodium 147 H Potassium 4.0 Chloride 108 Carbon Dioxide 25 Anion Gap 18 BUN 20 H Creatinine 1.24 Estim Creat Clear Calc 36.0 Estimated GFR 44 POC Glucose 226 H Random Glucose 210 H Calcium 8.6 Total Bilirubin 0.4 AST 13 ALT 6 Alkaline Phosphatase 65 Total Protein 6.5 Albumin 3.6 Microbiology Microbiology Results: Microbiology 01/20/24 17:35 Blood - Venous Blood Culture - Preliminary No growth after 24 hours. 01/20/24 17:30 Blood - Venous Blood Culture - Preliminary No growth after 24 hours. 01/21/24 00:40 Sputum - Suctioned Gram Stain - Final 01/20/24 19:48 Urine Catheterized - Lau Catheter Urine Culture - Preliminary Culture in progress. Progress Note: A&P Assessment and plan (1) COPD with acute exacerbation: Status: Acute (2) UTI (urinary tract infection): Status: Acute (3) Acute on chronic hypoxic respiratory failure: Status: Acute (4) Sepsis: Status: Acute (5) Acute hypoxic respiratory failure: Status: Acute (6) Metabolic encephalopathy: Status: Acute Plan Neuro: Acute encephalopathy possibly due to metabolic encephalopathy On Precedex for anxiolysis, she is on a continuous fentanyl drip, we will change to as needed fentanyl for analgesia Close neurological status monitoring in the ICU every hour Cardiac: Shock: Possibly secondary to On Levophed support, titrate Levophed to keep map above 65 mm Hg Respiratory: Acute hypoxemic respiratory failure due to Currently on ventilator support On PRVC mode FiO2[40%], PEEP 5, TV 360, RR 22 Peak pressures and plateau pressures are under the curve Ventilator management bundle with head end elevation, aspiration precaution, chlorhexidine mouthwash, daily awakening trials, daily spontaneous breathing trials Once the fentanyl is weaned off we will place the patient on pressor support if she does well we will get the weaning trials GI: on tube feeds Renal: Acute kidney injury possibly secondary to ATN and is improving Creatinine 1.54 on admission, down to 1.24 this morning We will closely monitor I's and O's Avoid nephrotoxic medications Heme: Chronic anemia, closely monitor H&H, transfuse for hemoglobin less than 7 grams/deciliter Endocrine: Blood sugars under control Sliding scale insulin as needed Infectious disease: Pancultures pending will get MRSA nares if negative will discontinue vancomycin continue Zosyn Musculoskeletal: Decubitus ulcer prevention protocol Lines: Prophylaxis: Lovenox, pantoprazole Critical care time spent is about 40 minutes on ventilator management, weaning from ventilator, sedation management, sedation weaning, close hemodynamic monitoring, close neurological status monitoring at this time is excluding any procedural time Quality Stroke Does the patient have a stroke diagnosis?: No VTE Prior VTE?: No VTE Risk Level:: Medical - moderate - high VTE Device Contraindication: N/A - Device Ordered VTE Drug Contraindication: N/A - Med Ordered
--- NOTE | 2024-01-22 09:51 | MHC.CLN ---
F/U PT REMAINS INTUBATED DISCUSSED AT ROUNDS WITH PT RECEIVING PROMOTE AT TRICKLE FEED 10ML/HR CURRENTLY RECOMMEND TF PROMOTE AT MAX GOAL RATE 25ML/HR TO PROVIDE 600KCALS (1113KCALS WITH SEDATION; 24KCALS/KG), 37.5G PROTEIN, 503ML FREE WATER FROM FORMULA MONITOR TOLERANCE AND LYTES
[2024-01-22] MEDS: Furosemide 40 MG/4 ML VIAL IVPUSH (10:04)
[2024-01-22] MEDS: QUEtiapine Fumarate 50 MG TABLET PO ×2 (10:13→21:21)
[2024-01-22 12:27] LABS: MRSA Nasal PCR NEGATIVE (Negative); SA Nasal PCR NEGATIVE (Negative)
--- NOTE | 2024-01-22 13:44 | MHC.CM.PN ---
Patient remains intubated/vented in ICU. Currently on Fentanyl and Precedex drips. Possible extubated later today. Continue to monitor for d/c needs.
[2024-01-22 14:44] LABS: Glucose, Whole Blood 251 mg/dL (60-115)
[2024-01-22] MEDS: dexmedeTOMIDidine HCL/NS 400 MCG/100 ML INFUS..BTL 11.34 MCG IVCONT (17:46)
[2024-01-22 20:34] LABS: Glucose, Whole Blood 152 mg/dL (60-115)
[2024-01-22] MEDS: Enoxaparin Sodium 40 MG/0.4 ML SYRINGE SUBCUT (21:21)
[2024-01-22 21:25] LABS: Vancomycin Random 11.9 mcg/mL (15-20)
--- NOTE | 2024-01-22 21:29 | PC.NURSE ---
Addendum entered by Alison Kitchen RN 01/23/24 06:37: Patient agitated/restless this morning, pulling off nc causing desats. NC replaced and attempts made to reorient and redirect; patient swearing at staff. Precedex gtt titrated as ordered and appropriate per PA (See MAR). Original Note: Assumed care of patient at 19:00. Weaning precedex as pt tolerates per PA verbal order. Nursing bedside swallow done prior to medication administration, passed and PA Isaak López made aware. PA verbal order to give medications in pudding. Pt tolerated meds whole in pudding without issue. Aspiration precautions in place. Diet clarification requested; PA Verbal order to hold ISS while NPO. Po care provided. Safety measures including tabs alarm and in-room camera in place.
[2024-01-23] VITALS (32 sets, daily range): BP systolic 122–179; BP diastolic 51–87; PULSE 64–87; RESP 13–28; TEMP 36.2–36.9; O2SAT 88–98; BMI 25.5
--- NOTE | 2024-01-23 | ECG_ITS ---
Test Reason : QT interval for methadone Blood Pressure : / mmHG Vent. Rate : 076 BPM Atrial Rate : 076 BPM P-R Int : 126 ms QRS Dur : 088 ms QT Int : 464 ms P-R-T Axes : 039 013 -07 degrees QTc Int : 522 ms Sinus rhythm with Premature atrial complexes Prolonged QT Abnormal ECG When compared with ECG of 20-JAN-2024 17:51, Premature atrial complexes are now Present T wave inversion now evident in Anterior leads QT has lengthened Referred By: Felipe Theodore Electronically Signed By:KYAW ANGELES MD
[2024-01-23 00:18] LABS: Glucose, Whole Blood 169 mg/dL (60-115)
[2024-01-23] MEDS: Piperacillin Sodium/Tazobactam 3.375 GM in 0.9 % Sodium Chloride 50 ML IV (03:43)
[2024-01-23 03:51] LABS: Glucose, Whole Blood 135 mg/dL (60-115)
[2024-01-23 04:54] LABS: VBG Base Excess 10.5 mmol/L; VBG HCO3 33 mmol/L (22-26); VBG pCO2 38 mmHg; VBG pH 7.55 (7.32-7.43); VBG pO2 36 mmHg
[2024-01-23 05:01] LABS: MANUAL DIFF FLAG NO
[2024-01-23 05:03] LABS: Basophils Percent Auto 0.2 % (0-2); Eosinophils Percent Auto 0.1 % (0-4); Hematocrit 25.7 % (37.0-47.0); Hemoglobin 8.3 g/dl (12.0-16.0); Imm Gran Abs Auto 0.12 X10*3/uL (0.00-0.03); Imm Gran Pct Auto 0.7 % (0.0-0.4); Lymphocytes Absolute Auto 2.1 X10*3/uL (1.2-4.9); Lymphocytes Percent Auto 12.9 % (20-40); Mean Corpuscular HGB Conc 32.3 g/dl (31.0-35.0); Mean Corpuscular Volume 89.9 fL (80.0-98.0); Mean Platelet Volume 10.6 fL (9.4-12.3); Monocytes Absolute Auto 0.5 X10*3/uL (0.1-1.2); Monocytes Percent Auto 3.2 % (2-11); Neutrophils Absolute Auto 13.4 x10*3/uL (2.0-8.3); Neutrophils Percent Auto 82.9 % (45-73); Platelet Count 271 X10*3/uL (160-400); Red Blood Count 2.86 X10*6/uL (4.20-5.50); White Blood Count 16.2 X10*3/uL (4.8-10.8)
[2024-01-23 05:08] LABS: Venous Blood Gas Refer to POC result
[2024-01-23] MEDS: Albuterol Sulfate (0.083%) 2.5 MG/3 ML VIAL.NEB INHALE (05:17)
[2024-01-23 05:21] LABS: Alanine Aminotransferase 8 U/L (0-31); Albumin Level 3.9 g/dL (3.5-5.0); Alkaline Phosphatase 74 U/L (39-117); Anion Gap 17 (12-20); Aspartate Amino Transferase 14 U/L (5-31); Bilirubin Total 0.4 mg/dL (0.0-1.0); Blood Urea Nitrogen 23 mg/dL (9-16); Calcium 9.3 mg/dL (8.4-10.2); Carbon Dioxide 28 mmol/L (22-29); Chloride 102 mmol/L (96-108); Creatinine Clr Calc Pharmacy 44.7; Estimated Glomerular Filt Rate 56; Glucose Random 142 mg/dL (60-115); Sodium 144 mmol/L (135-145); Total Protein 7.2 g/dL (6.5-8.0)
[2024-01-23] MEDS: Albuterol/Iprat 2.5/0.5MG 3 ML AMPUL.NEB INHALE ×3 (07:31→18:46)
[2024-01-23] MEDS: Potassium Chloride/H20 40 MEQ/100 ML PIGGYBACK 100 MEQ IV (08:13)
[2024-01-23 09:14] LABS: Glucose, Whole Blood 142 mg/dL (60-115)
--- NOTE | 2024-01-23 09:38 | MHC.SLORD ---
Speech Language Pathology Order Status: Patient seen for clinical swallow this am, presents as mostly WFL, edentulous. Recommend START diet of Chopped Advanced, Thin Liquids, pills whole with liquid or puree. Patient will initially need full support/assistance at meals. MEDICAL TECHNOLOGIST PRN to follow, full evaluation note will be in by suzette
[2024-01-23] MEDS: Pantoprazole Sodium 40 MG/10 ML VIAL IVPUSH (10:21)
[2024-01-23] MEDS: methylPREDNISolone Sod Succ 40 MG/ML VIAL IVPUSH (10:21)
[2024-01-23] MEDS: Insulin Glargine,Hum.rec.anlog 100 UNIT/ML 10 ML VIAL 15 UNIT SUBCUT (10:33)
[2024-01-23] MEDS: QUEtiapine Fumarate 50 MG TABLET PO ×2 (10:36→20:22)
[2024-01-23] MEDS: dexmedeTOMIDidine HCL/NS 400 MCG/100 ML INFUS..BTL IVCONT (10:38)
[2024-01-23 11:21] LABS: Glucose, Whole Blood 151 mg/dL (60-115)
[2024-01-23] MEDS: Insulin Lispro 100 UNIT/ML 3 ML VIAL SUBCUT ×3 (12:41→20:22)
--- NOTE | 2024-01-23 13:53 | MHC.SL.SWA ---
Speech Pathologist Impression: Risk of Aspiration Due to: History of Pneumonia Hx of Recent Extubation Dysphasia Diet Status: Liquid Consistency and Strategies for Safe Swallow: Liquid Intake Recommendation: Thin Liquid Intake Strategies: Small Sips Solid Food Consistency: Dietary Recommendations: Chopped/Advanced (NDD3) Additional Modifications to Solid Foods: Alternate liquids and solids. Patient will need full assistance at first meal, assess at that time ability to transition to greater independence. Oral Medication Intake: Whole with Liquid Please contact the pharmacy regarding appropriate crushable or liquid drug formulations that are available whenever modified delivery is recommended. Compensatory Strategies and Precautions to be Taken for Safe Swallow: Sitting Upright (90 deg) Liquids from Cup Liquids from Straw Small Bites and Sips Alternate Liquids/Solids Avoid Specific Foods Supervision While Eating and Drinking for Safe Swallow: Total Assistance (1:1) Foods to Avoid: Avoid hard, crunchy, dry difficult to chew solids. Swallowing Recommended Treatments: Compens. Strategy Educat. Recommendation for Speech: Inpatient Speech Therapy Comment: Patient presents with oral motor function and swallow mostly WFL, however patient is edentulous, and recently extubated. ? aspiration event (s) if present, associated with/during substance abuse episodes. Recommend START diet of Chopped/Advanced (NDD3) with THIN liquids, pills whole with liquid or puree. Patient will require full assistance at first meal, assess at that time ability to transition to greater independence. RN notified of recommendation in person, MD GRAY by secure text. LAW FIRM CONSULTANT to follow 1-2X for toleration of recommended diet, upgrade if indicated. Frequency/Duration: Date Range for Service Req: Timeline to reassess: Induction Machine Operator Clinican/Clinical Fellow: No Supervisory Statement: I have reviewed and agree with the student/clinical fellow's documentation: N/A Speech Language Pathologist: Yanique Vance M.A., CCC-LAW FIRM CONSULTANT
--- NOTE | 2024-01-23 14:12 | P.PNCC_ITS ---
Subjective Subjective Date of Service: 01/23/24 Critical Care Time (minutes): 40 Comment: breathing stable took off of Precedex drip this morning growing ESBL in urine and sputum Physical Exam 2 Vital Signs: Vital Signs: Last Vital Signs Temp 98.5 F 01/23/24 12:00 Pulse 86 01/23/24 13:00 Resp 25 H 01/23/24 13:00 BP 141/66 H 01/23/24 13:00 Pulse Ox 94 01/23/24 13:00 O2 Del Method Nasal Cannula 01/23/24 13:00 O2 Flow Rate 3 01/23/24 13:00 FiO2 40 01/22/24 16:00 BMI result Body Mass Index 25.5 General: not in acute distress Nutritional Appearance: chronicAlly nourished and overweight Eyes: appearance normal, both eyes and all related structures; Alignment and Position: alignment normal and position normal Neck: No lymphadenopathy, no thyromegaly Resp: bilateral air entry equal, occasional added sounds present Cardio: Regular rate, regular rhythm; Heart sounds: S1 normal heart sound present and S2 normal heart sound present GI: soft, nontender, no guarding, no hepatosplenomegaly : bladder normal to inspection, bladder normal to palpation, no renal angle tenderness Skin: no rashes or lesions noted and elasticity normal Neuro: Right leg BKA, oriented to person, oriented to place, oriented to time and moves all extremities Objective Data Labs 01/23/24 04:48 01/23/24 04:48 Labs: Laboratory Results - last 24 hr 01/22/24 01/22/24 01/22/24 14:41 20:31 21:00 WBC RBC Hgb Hct MCV MCH MCHC RDW Plt Count MPV Immature Gran % (Auto) Neut % (Auto) Lymph % (Auto) [place] % (Auto) Eos % (Auto) Baso % (Auto) Lymph # (Auto) [place] # (Auto) Eos # (Auto) Baso # (Auto) Abs Immat Gran (auto) Absolute Neuts (auto) Absolute Nucleated RBC Nucleated RBC % (auto) VBG pH VBG pCO2 VBG pO2 VBG HCO3 VBG O2 Saturation VBG Base Excess Sodium Potassium Chloride Carbon Dioxide Anion Gap BUN Creatinine Estim Creat Clear Calc Estimated GFR POC Glucose 251 H 152 H Random Glucose Calcium Total Bilirubin AST ALT Alkaline Phosphatase Total Protein Albumin Random Vancomycin 11.9 L 07/01/23/24 01/23/24 00:13 03:47 04:44 WBC RBC Hgb Hct MCV MCH MCHC RDW Plt Count MPV Immature Gran % (Auto) Neut % (Auto) Lymph % (Auto) [place] % (Auto) Eos % (Auto) Baso % (Auto) Lymph # (Auto) [place] # (Auto) Eos # (Auto) Baso # (Auto) Abs Immat Gran (auto) Absolute Neuts (auto) Absolute Nucleated RBC Nucleated RBC % (auto) VBG pH 7.55 H VBG pCO2 38 VBG pO2 36 VBG HCO3 33 H VBG O2 Saturation 65.0 VBG Base Excess 10.5 Sodium Potassium Chloride Carbon Dioxide Anion Gap BUN Creatinine Estim Creat Clear Calc Estimated GFR POC Glucose 169 H 135 H Random Glucose Calcium Total Bilirubin AST ALT Alkaline Phosphatase Total Protein Albumin Random Vancomycin 01/23/24 01/23/24 01/23/24 04:48 09:11 11:18 WBC 16.2 H RBC 2.86 L Hgb 8.3 L Hct 25.7 L MCV 89.9 MCH 29.0 MCHC 32.3 RDW 16.0 Plt Count 271 MPV 10.6 Immature Gran % (Auto) 0.7 H Neut % (Auto) 82.9 H Lymph % (Auto) 12.9 L [place] % (Auto) 3.2 Eos % (Auto) 0.1 Baso % (Auto) 0.2 Lymph # (Auto) 2.1 [place] # (Auto) 0.5 Eos # (Auto) 0.0 Baso # (Auto) 0.0 Abs Immat Gran (auto) 0.12 H Absolute Neuts (auto) 13.4 H Absolute Nucleated RBC 0.000 Nucleated RBC % (auto) 0.0 VBG pH VBG pCO2 VBG pO2 VBG HCO3 VBG O2 Saturation VBG Base Excess Sodium 144 Potassium 3.0 L D Chloride 102 Carbon Dioxide 28 Anion Gap 17 BUN 23 H Creatinine 1.00 Estim Creat Clear Calc 44.7 Estimated GFR 56 POC Glucose 142 H 151 H Random Glucose 142 H Calcium 9.3 D Total Bilirubin 0.4 AST 14 ALT 8 Alkaline Phosphatase 74 Total Protein 7.2 Albumin 3.9 Random Vancomycin Microbiology Microbiology Results: Microbiology 01/20/24 19:48 Urine Catheterized - Lau Catheter Urine Culture - Final Klebsiella pneumoniae 01/21/24 00:40 Sputum - Suctioned Gram Stain - Final 01/21/24 00:40 Sputum - Suctioned Sputum Culture - Final Klebsiella pneumoniae 01/20/24 17:35 Blood - Venous Blood Culture - Preliminary No growth after 48 hours. 01/20/24 17:30 Blood - Venous Blood Culture - Preliminary No growth after 48 hours. Progress Note: A&P Assessment and plan (1) COPD with acute exacerbation: Status: Acute (2) UTI (urinary tract infection): Status: Acute (3) Acute on chronic hypoxic respiratory failure: Status: Acute (4) Sepsis: Status: Acute (5) Acute hypoxic respiratory failure: Status: Acute (6) Septic shock: Status: Acute Plan Neuro: Acute encephalopathy possibly due to metabolic encephalopathy and is currently improving, patient is alert and oriented Turned off Precedex drip this morning, on Seroquel for agitation and psychosis, on clonazepam to prevent withdrawals can be discontinued upon discharge Respiratory: Acute hypoxemic respiratory failure due to aspiration pneumonia and Klebsiella pneumonia Extubated yesterday, tolerating liberation from ventilator well GI: on tube feeds Renal: Acute kidney injury possibly secondary to ATN and is improving Creatinine 1.54 on admission, down to 1.24 this morning We will closely monitor I's and O's Avoid nephrotoxic medications Heme: Chronic anemia, closely monitor H&H, transfuse for hemoglobin less than 7 grams/deciliter Endocrine: Blood sugars under control Sliding scale insulin as needed Infectious disease: Urine culture and sputum cultures growing ESBL Klebsiella Antibiotics changed from Zosyn to meropenem Chronic malnutrition: We will improve protein in the diet, passed speech and swallow evaluation Musculoskeletal: Decubitus ulcer prevention protocol Prophylaxis: Lovenox Quality Stroke Does the patient have a stroke diagnosis?: No VTE Prior VTE?: No VTE Risk Level:: Medical - moderate - high VTE Device Contraindication: N/A - Device Ordered VTE Drug Contraindication: N/A - Med Ordered
--- NOTE | 2024-01-23 14:15 | MHC.CM.PN ---
Pt successfully extubated on 01/21: has made clinical gains and will transfer to telemetry later today for continued care. D/C plans remain for a return to home w/family, [facility] and outpt Methadone services. Son will transfer to home.
--- NOTE | 2024-01-23 16:29 | PM.EVENT ---
Event Note Date of Service: 01/23/24 Event Note: ICU transfer. Drug overdose, aspiration, intubation ESBL Klebsiella in urine and lungs Time Spent With Patient Time: Total time managing care of this patient today ____ minutes.
[2024-01-23 16:37] LABS: Glucose, Whole Blood 283 mg/dL (60-115)
[2024-01-23] MEDS: Fluticasone Propionate 100 MCG BLST.W.DEV 1 PUFF INHALE (19:02)
[2024-01-23] MEDS: Zolpidem Tartrate 5 MG TABLET 10 MG PO (20:21)
[2024-01-23] MEDS: Gabapentin 600 MG TABLET PO (20:21)
[2024-01-23] MEDS: Mirtazapine 7.5 MG TABLET PO (20:21)
[2024-01-23] MEDS: Enoxaparin Sodium 40 MG/0.4 ML SYRINGE SUBCUT (20:22)
[2024-01-23 20:34] LABS: Glucose, Whole Blood 247 mg/dL (60-115)
[2024-01-24] VITALS (8 sets, daily range): BP systolic 126–164; BP diastolic 61–85; PULSE 71–81; RESP 16–20; TEMP 36.1–36.6; O2SAT 95–98; BMI 24.7
[2024-01-24] MEDS: Omeprazole 20 MG CAPSULE.DR PO (05:50)
[2024-01-24] MEDS: Albuterol/Iprat 2.5/0.5MG 3 ML AMPUL.NEB INHALE ×3 (07:42→19:39)
[2024-01-24] MEDS: Fluticasone Propionate 100 MCG BLST.W.DEV 1 PUFF INHALE ×2 (07:42→19:39)
[2024-01-24 08:04] LABS: Glucose, Whole Blood 121 mg/dL (60-115)
[2024-01-24 08:22] LABS: Hematocrit 30.1 % (37.0-47.0); Hemoglobin 9.7 g/dl (12.0-16.0); Mean Corpuscular HGB Conc 32.2 g/dl (31.0-35.0); Mean Corpuscular Hemoglobin 28.1 pg (27.0-33.0); Mean Corpuscular Volume 87.2 fL (80.0-98.0); Mean Platelet Volume 10.4 fL (9.4-12.3); Platelet Count 315 X10*3/uL (160-400); Red Blood Count 3.45 X10*6/uL (4.20-5.50); Red Cell Distribution Width 15.6 % (11.0-16.0)
[2024-01-24 08:46] LABS: Anion Gap 16 (12-20); Blood Urea Nitrogen 21 mg/dL (9-16); Calcium 9.9 mg/dL (8.4-10.2); Carbon Dioxide 24 mmol/L (22-29); Chloride 103 mmol/L (96-108); Estimated Glomerular Filt Rate > 60; Glucose Random 126 mg/dL (60-115); Magnesium 1.5 mg/dL (1.6-2.6); Potassium 3.2 mmol/L (3.3-5.1); Sodium 140 mmol/L (135-145)
[2024-01-24] MEDS: Aspirin Enteric Coated 81 MG TABLET.DR PO (09:24)
[2024-01-24] MEDS: Atorvastatin Calcium 40 MG TABLET PO (09:24)
[2024-01-24] MEDS: lisinopriL 40 MG TABLET PO (09:24)
[2024-01-24] MEDS: Metoprolol Succinate ER 25 MG TAB.ER.24H PO (09:25)
[2024-01-24] MEDS: buPROPion HCl XL 300 MG TAB.ER.24H PO (09:25)
[2024-01-24] MEDS: QUEtiapine Fumarate 50 MG TABLET PO ×2 (09:25→20:51)
[2024-01-24] MEDS: Insulin Glargine,Hum.rec.anlog 100 UNIT/ML 10 ML VIAL 15 UNIT SUBCUT (09:25)
[2024-01-24] MEDS: Nicotine 14 MG PATCH.TD24 TRANSDERMA (09:25)
[2024-01-24] MEDS: Gabapentin 600 MG TABLET PO ×3 (09:25→20:51)
[2024-01-24] MEDS: amLODIPine Besylate 10 MG TABLET PO (09:25)
[2024-01-24] MEDS: methylPREDNISolone Sod Succ 40 MG/ML VIAL IVPUSH (09:25)
[2024-01-24 11:11] LABS: Glucose, Whole Blood 262 mg/dL (60-115)
--- NOTE | 2024-01-24 11:15 | P.PNIM_ITS ---
Subjective Subjective Date of Service: 01/24/24 Review of Systems Follow up resp failure secondary to drug use feeling better day sitting up in bed with no pain or sob Physical Exam 2 Vital Signs: Vital Signs: Last Vital Signs Temp 97.5 F 01/24/24 11:06 Pulse 75 01/24/24 11:06 Resp 18 01/24/24 11:06 BP 150/81 H 01/24/24 11:06 Pulse Ox 95 01/24/24 11:06 O2 Del Method Nasal Cannula 01/24/24 11:06 O2 Flow Rate 2 01/24/24 11:06 FiO2 40 01/22/24 16:00 BMI result Body Mass Index 24.7 Appearing in no acute distress lung sounds are clear to auscultation heart regular rate rhythm, clear S1, S2 positive bowel sounds, abdomen is soft, nontender neuro patient is alert x3, no focal deficits Bilateral BKA Objective Data Active Medications Albuterol Sulfate (Albuterol Sulfate (0.083%) 2.5 Mg/3 Ml Vial.Neb) 2.5 mg INHALE Q3H PRN PRN Reason: wheezing Last Admin: 01/23/24 05:17 Dose: 2.5 mg Documented By: FRANDY Albuterol/Ipratropium (Albuterol/Iprat 2.5/0.5mg 3 Ml Ampul.Neb) 3 ml INHALE Q6H [facility] Last Admin: 01/24/24 07:42 Dose: 3 ml Documented By: KAITLIN Amlodipine Besylate (Amlodipine Besylate 10 Mg Tablet) 10 mg PO DAILY [facility]; Protocol Last Admin: 01/24/24 09:25 Dose: 10 mg Documented By: GREY Aspirin (Aspirin Enteric Coated 81 Mg Tablet.Dr) 81 mg PO DAILY [facility] Last Admin: 01/24/24 09:24 Dose: 81 mg Documented By: GREY Atorvastatin Calcium (Atorvastatin Calcium 40 Mg Tablet) 40 mg PO DAILY [facility] Last Admin: 01/24/24 09:24 Dose: 40 mg Documented By: GREY Bupropion HCl (Bupropion Hcl Xl 300 Mg Tab.Er.24h) 300 mg PO DAILY [facility] Last Admin: 01/24/24 09:25 Dose: 300 mg Documented By: GREY Clonazepam (Clonazepam 0.125 Mg Tab.Rapdis) 0.25 mg PO TID [facility] Last Admin: 01/24/24 09:25 Dose: 0.25 mg Documented By: GREY Enoxaparin Sodium (Enoxaparin Sodium 40 Mg/0.4 Ml Syringe) 40 mg SUBCUT Q24H [facility] Last Admin: 01/23/24 20:22 Dose: 40 mg Documented By: KIMBERLEY Fluticasone Propionate (Fluticasone Propionate 100 Mcg Blst.W.Dev) 1 puff INHALE RBID [facility] Last Admin: 01/24/24 07:42 Dose: 1 puff Documented By: KAITLIN Gabapentin (Gabapentin 600 Mg Tablet) 600 mg PO TID [facility] Last Admin: 01/24/24 09:25 Dose: 600 mg Documented By: GREY Glucose (Glucose Gel 15 Gm Gel..Gram.) 15 gm PO Q15M PRN; Protocol PRN Reason: per Hypoglycemia Standing Ord. Dextrose (D10) 250 mls @ 750 mls/hr IV Q15M PRN PRN Reason: per Hypoglycemia Standing Ord. Last Infusion: 01/20/24 18:44 Dose: Infused Documented By: TANMAY Dextrose (D10) 250 mls @ 750 mls/hr IV Q15M PRN; Protocol PRN Reason: per Hypoglycemia Standing Ord. Meropenem 1 gm/ Sodium (Chloride) 100 mls @ 200 mls/hr IV Q12H [facility] Last Infusion: 01/24/24 10:11 Dose: Infused Documented By: GREY Insulin Glargine (Insulin Glargine,Hum.Rec.Anlog 100 Unit/Ml 10 Ml Vial) 15 unit SUBCUT DAILY [facility] Last Admin: 01/24/24 09:25 Dose: 15 unit Documented By: GREY Insulin Human Lispro (Insulin Lispro 100 Unit/Ml 3 Ml Vial) 0 unit SUBCUT QIDACHS [facility]; Protocol Last Admin: 01/24/24 08:08 Dose: Not Given Documented By: GREY Non-Admin Reason: No Insulin Coverage Lisinopril (Lisinopril 40 Mg Tablet) 40 mg PO DAILY [facility]; Protocol Last Admin: 01/24/24 09:24 Dose: 40 mg Documented By: GREY Methylprednisolone Sodium Succinate (Methylprednisolone Sod Succ 40 Mg/Ml Vial) 40 mg IVPUSH DAILY [facility] Last Admin: 01/24/24 09:25 Dose: 40 mg Documented By: GREY Metoprolol Succinate (Metoprolol Succinate Er 25 Mg Tab.Er.24h) 25 mg PO DAILY [facility]; Protocol Last Admin: 01/24/24 09:25 Dose: 25 mg Documented By: GREY Mirtazapine (Mirtazapine 7.5 Mg Tablet) 7.5 mg PO BEDTIME [facility] Last Admin: 01/23/24 20:21 Dose: 7.5 mg Documented By: KIMBERLEY Naloxone HCl (Naloxone Hcl 0.4 Mg/Ml Vial) 0.2 mg IVPUSH Q2M PRN PRN Reason: Excessive sedation or RR < 8 Nicotine (Nicotine 14 Mg Patch.Td24) 14 mg TRANSDERMA DAILY [facility] Last Admin: 01/24/24 09:25 Dose: 14 mg Documented By: GREY Omeprazole (Omeprazole 20 Mg Capsule.Dr) 20 mg PO DAILY@0630 [facility] Last Admin: 01/24/24 05:50 Dose: 20 mg Documented By: KIMBERLEY Quetiapine Fumarate (Quetiapine Fumarate 50 Mg Tablet) 50 mg PO BID [facility] Last Admin: 01/24/24 09:25 Dose: 50 mg Documented By: GREY Zolpidem Tartrate (Zolpidem Tartrate 5 Mg Tablet) 10 mg PO BEDTIME PRN PRN Reason: Sleep Last Admin: 01/23/24 20:21 Dose: 10 mg Documented By: KIMBERLEY Labs 01/24/24 08:04 01/24/24 08:04 Labs: Laboratory Results - last 24 hr 01/23/24 01/23/24 01/23/24 11:18 16:33 20:11 MCV MCH MCHC RDW Plt Count MPV Absolute Nucleated RBC Nucleated RBC % (auto) Anion Gap Estim Creat Clear Calc Estimated GFR POC Glucose 151 H 283 H 247 H Random Glucose Calcium Magnesium 01/24/24 01/24/24 01/24/24 07:57 08:04 11:07 MCV 87.2 MCH 28.1 MCHC 32.2 RDW 15.6 Plt Count 315 MPV 10.4 Absolute Nucleated RBC 0.000 Nucleated RBC % (auto) 0.0 Anion Gap 16 Estim Creat Clear Calc 49.0 Estimated GFR > 60 POC Glucose 121 H 262 H Random Glucose 126 H Calcium 9.9 D Magnesium 1.5 L Microbiology Microbiology Results: Microbiology 01/20/24 19:48 Urine Culture - Final Urine Catheterized - Lau Catheter Klebsiella pneumoniae 01/21/24 00:40 Gram Stain - Final Sputum - Suctioned Sputum Culture - Final Klebsiella pneumoniae Assessment and Plan (1) UTI (urinary tract infection): Status: Acute Plan 64 year old women admitted by ICU secondary to drug overdose. She has a history of polysubstance abuse and recurrent episodes of hypoxic respiratory failure. She arrived to the ER via EMS unresponsive, hypoglycemic and hypoxic with oxygen saturation of 70%. Placed on non-rebreather mask. In the ER she was found to be hypothermic, hypoxic and tachypneic as well as very lethargic but arousable. She was then placed on high-flow due to oxygen saturation dropping to 68% and after doing well for a few hours she became more somnolent and hypoxic and was placed on CPAP. She was started on empiric IV antibiotics and x-ray showed worsening bilateral patchy infiltrates questioning pneumonitis. She continued to be hypoglycemic receiving D50 and IV fluids. She had some point was given IV Narcan with good effect but patient became more hypoxic and tachypneic and was transferred to the ICU for emergent intubation. Acute hypoxemic respiratory failure secondary to aspiration pneumonia and Klebsiella pneumoniae Likely secondary to drug intake/overdose Extubated 01/1924 On 2 L nasal cannula Continue meropenem ESBL Klebsiella UTI Continue meropenem Hypokalemia Potassium 3.2, replace Hypomagnesemia Magnesium 1.5, replace AUBRIE secondary to ATN Creatinine trending down Avoid nephrotoxic medications Acute on chronic normocytic anemia above transfusion threshold ESBL Klebsiella UTI Continue meropenem Hypertension Stable blood pressure Continue amlodipine, lisinopril Diabetes mellitus type 2 Sliding scale, Lantus Mental health Continue home medications GERD PPI COPD Albuterol inhaler no exacerbation Peripheral arterial disease Continue aspirin and statin DVT prophylaxis with Lovenox Full code DISPO lives at home with family Quality Stroke Does the patient have a stroke diagnosis?: No VTE Prior VTE?: No VTE Risk Level:: Medical - moderate - high VTE Device Contraindication: N/A - Device Ordered VTE Drug Contraindication: N/A - Med Ordered
[2024-01-24] MEDS: Insulin Lispro 100 UNIT/ML 3 ML VIAL SUBCUT ×3 (11:23→21:24)
[2024-01-24] MEDS: Potassium Chloride ER 20 MEQ TAB.ER.PRT 40 MEQ PO (11:40)
[2024-01-24] MEDS: Magnesium Sulfate/H2O 2 GM/50 ML PIGGYBACK IV (11:40)
[2024-01-24 16:18] LABS: Glucose, Whole Blood 389 mg/dL (60-115)
[2024-01-24] MEDS: Enoxaparin Sodium 40 MG/0.4 ML SYRINGE SUBCUT (20:50)
[2024-01-24] MEDS: Mirtazapine 7.5 MG TABLET PO (20:51)
[2024-01-24 21:16] LABS: Glucose, Whole Blood 391 mg/dL (60-115)
[2024-01-24] MEDS: Zolpidem Tartrate 5 MG TABLET 10 MG PO (23:00)
[2024-01-25] VITALS (9 sets, daily range): BP systolic 130–190; BP diastolic 61–90; PULSE 65–80; RESP 16–20; TEMP 36–36.8; O2SAT 90–100
[2024-01-25] MEDS: Albuterol/Iprat 2.5/0.5MG 3 ML AMPUL.NEB INHALE ×3 (01:44→20:28)
[2024-01-25] MEDS: Omeprazole 20 MG CAPSULE.DR PO (06:03)
[2024-01-25 07:09] LABS: Anion Gap 16 (12-20); Blood Urea Nitrogen 25 mg/dL (9-16); Calcium 9.6 mg/dL (8.4-10.2); Carbon Dioxide 25 mmol/L (22-29); Chloride 102 mmol/L (96-108); Creatinine Clr Calc Pharmacy 37.5; Estimated Glomerular Filt Rate 48; Glucose Random 212 mg/dL (60-115); Potassium 3.8 mmol/L (3.3-5.1); Sodium 139 mmol/L (135-145)
--- NOTE | 2024-01-25 07:09 | P.PNIM_ITS ---
Subjective Subjective Date of Service: 01/25/24 Interval History: Seen in follow up for respiratory failure secondary to aspiration pneumonia/Klebsiella pneumoniae, ESBL Klebsiella UTI, AUBRIE Interval history: Patient is somnolent but arousable, oriented x3. Lethargic, no complaints. Review of Systems Review of Systems: Yes all other systems are reviewed and are negative Physical Exam 2 Vital Signs: Vital Signs: Last Vital Signs Temp 97.8 F 01/25/24 03:36 Pulse 75 01/25/24 03:36 Resp 18 01/25/24 03:36 BP 144/68 H 01/25/24 03:36 Pulse Ox 93 01/25/24 03:36 O2 Del Method Nasal Cannula 01/25/24 03:36 O2 Flow Rate 2 01/25/24 03:36 FiO2 40 01/22/24 16:00 BMI result Body Mass Index 24.7 Constitutional - Awake and Alert, No apparent distress Eyes - PERRLA, EOMI Cardiovascular - S1S2, RRR, No edema Respiratory - Normal lung expansion, Normal respiratory effort, No respiratory distress, CTA bilaterally Gastrointestinal - NT / ND; +BS; No rebound or guarding Extremities - no calf tenderness bilaterally, no swelling Skin - Warm/Dry Neurological - somnolant but arousable, oriented x3, lethargic Objective Data Active Medications Albuterol Sulfate (Albuterol Sulfate (0.083%) 2.5 Mg/3 Ml Vial.Neb) 2.5 mg INHALE Q3H PRN PRN Reason: wheezing Last Admin: 01/23/24 05:17 Dose: 2.5 mg Documented By: FRANDY Albuterol/Ipratropium (Albuterol/Iprat 2.5/0.5mg 3 Ml Ampul.Neb) 3 ml INHALE Q6H [facility] Last Admin: 01/25/24 01:44 Dose: 3 ml Documented By: UMU Amlodipine Besylate (Amlodipine Besylate 10 Mg Tablet) 10 mg PO DAILY [facility]; Protocol Last Admin: 01/24/24 09:25 Dose: 10 mg Documented By: GREY Aspirin (Aspirin Enteric Coated 81 Mg Tablet.) 81 mg PO DAILY [facility] Last Admin: 01/24/24 09:24 Dose: 81 mg Documented By: GREY Atorvastatin Calcium (Atorvastatin Calcium 40 Mg Tablet) 40 mg PO DAILY [facility] Last Admin: 01/24/24 09:24 Dose: 40 mg Documented By: GREY Bupropion HCl (Bupropion Hcl Xl 300 Mg Tab.Er.24h) 300 mg PO DAILY [facility] Last Admin: 01/24/24 09:25 Dose: 300 mg Documented By: GREY Clonazepam (Clonazepam 0.125 Mg Tab.Rapdis) 0.25 mg PO TID [facility] Last Admin: 01/24/24 20:50 Dose: 0.25 mg Documented By: СВЕТЛАНА Enoxaparin Sodium (Enoxaparin Sodium 40 Mg/0.4 Ml Syringe) 40 mg SUBCUT Q24H [facility] Last Admin: 01/24/24 20:50 Dose: 40 mg Documented By: СВЕТЛАНА Fluticasone Propionate (Fluticasone Propionate 100 Mcg Blst.W.Dev) 1 puff INHALE RBID [facility] Last Admin: 01/24/24 19:39 Dose: 1 puff Documented By: UMU Gabapentin (Gabapentin 600 Mg Tablet) 600 mg PO TID [facility] Last Admin: 01/24/24 20:51 Dose: 600 mg Documented By: СВЕТЛАНА Glucose (Glucose Gel 15 Gm Gel..Gram.) 15 gm PO Q15M PRN; Protocol PRN Reason: per Hypoglycemia Standing Ord. Dextrose (D10) 250 mls @ 750 mls/hr IV Q15M PRN PRN Reason: per Hypoglycemia Standing Ord. Last Infusion: 01/20/24 18:44 Dose: Infused Documented By: TANMAY Dextrose (D10) 250 mls @ 750 mls/hr IV Q15M PRN; Protocol PRN Reason: per Hypoglycemia Standing Ord. Meropenem 1 gm/ Sodium (Chloride) 100 mls @ 200 mls/hr IV Q12H [facility] Last Infusion: 01/24/24 22:25 Dose: Infused Documented By: СВЕТЛАНА Insulin Glargine (Insulin Glargine,Hum.Rec.Anlog 100 Unit/Ml 10 Ml Vial) 15 unit SUBCUT DAILY [facility] Last Admin: 01/24/24 09:25 Dose: 15 unit Documented By: GREY Insulin Human Lispro (Insulin Lispro 100 Unit/Ml 3 Ml Vial) 0 unit SUBCUT QIDACHS [facility]; Protocol Last Admin: 01/24/24 21:24 Dose: 10 unit Documented By: СВЕТЛАНА Lisinopril (Lisinopril 40 Mg Tablet) 40 mg PO DAILY [facility]; Protocol Last Admin: 01/24/24 09:24 Dose: 40 mg Documented By: GREY Methylprednisolone Sodium Succinate (Methylprednisolone Sod Succ 40 Mg/Ml Vial) 40 mg IVPUSH DAILY [facility] Last Admin: 01/24/24 09:25 Dose: 40 mg Documented By: GREY Metoprolol Succinate (Metoprolol Succinate Er 25 Mg Tab.Er.24h) 25 mg PO DAILY [facility]; Protocol Last Admin: 01/24/24 09:25 Dose: 25 mg Documented By: GREY Mirtazapine (Mirtazapine 7.5 Mg Tablet) 7.5 mg PO BEDTIME [facility] Last Admin: 01/24/24 20:51 Dose: 7.5 mg Documented By: СВЕТЛАНА Naloxone HCl (Naloxone Hcl 0.4 Mg/Ml Vial) 0.2 mg IVPUSH Q2M PRN PRN Reason: Excessive sedation or RR < 8 Nicotine (Nicotine 14 Mg Patch.Td24) 14 mg TRANSDERMA DAILY [facility] Last Admin: 01/24/24 09:25 Dose: 14 mg Documented By: GREY Omeprazole (Omeprazole 20 Mg Capsule.Dr) 20 mg PO DAILY@0630 [facility] Last Admin: 01/25/24 06:03 Dose: 20 mg Documented By: СВЕТЛАНА Quetiapine Fumarate (Quetiapine Fumarate 50 Mg Tablet) 50 mg PO BID [facility] Last Admin: 01/24/24 20:51 Dose: 50 mg Documented By: СВЕТЛАНА Zolpidem Tartrate (Zolpidem Tartrate 5 Mg Tablet) 10 mg PO BEDTIME PRN PRN Reason: Sleep Last Admin: 01/24/24 23:00 Dose: 10 mg Documented By: KEHINDE Labs 01/24/24 08:04 01/25/24 06:00 Labs: Laboratory Results - last 24 hr 01/24/24 01/24/24 01/24/24 07:57 08:04 11:07 MCV 87.2 MCH 28.1 MCHC 32.2 RDW 15.6 Plt Count 315 MPV 10.4 Absolute Nucleated RBC 0.000 Nucleated RBC % (auto) 0.0 Anion Gap 16 Estim Creat Clear Calc 49.0 Estimated GFR > 60 POC Glucose 121 H 262 H Random Glucose 126 H Calcium 9.9 D Magnesium 1.5 L 01/24/24 01/24/24 01/25/24 16:08 21:12 06:13 MCV MCH MCHC RDW Plt Count MPV Absolute Nucleated RBC Nucleated RBC % (auto) Anion Gap Estim Creat Clear Calc Estimated GFR POC Glucose 389 H* 391 H* Random Glucose Calcium Magnesium Cancelled Assessment and Plan (1) UTI (urinary tract infection): Status: Acute (2) COPD with acute exacerbation: Status: Acute (3) Opioid overdose: Status: Acute (4) Acute on chronic hypoxic respiratory failure: Status: Acute (5) Sepsis: Status: Acute Plan 64 year old women admitted by ICU secondary to drug overdose. She has a history of polysubstance abuse and recurrent episodes of hypoxic respiratory failure. She arrived to the ER via EMS unresponsive, hypoglycemic and hypoxic with oxygen saturation of 70%. Placed on non-rebreather mask. In the ER she was found to be hypothermic, hypoxic and tachypneic as well as very lethargic but arousable. She was then placed on high-flow due to oxygen saturation dropping to 68% and after doing well for a few hours she became more somnolent and hypoxic and was placed on CPAP. She was started on empiric IV antibiotics and x-ray showed worsening bilateral patchy infiltrates questioning pneumonitis. She continued to be hypoglycemic receiving D50 and IV fluids. She had some point was given IV Narcan with good effect but patient became more hypoxic and tachypneic and was transferred to the ICU for emergent intubation. Acute hypoxemic respiratory failure secondary to aspiration pneumonia and Klebsiella pneumoniae Likely secondary to drug intake/overdose Extubated 01/22/24. ICU stepdown 01/22 On 2 L nasal cannula, wean as tolerated per protocol Continue meropenem- intiated 01/22. Discuss duration with ID acute Lethargy suspect r/t multiple sedating medications at bedtime. Zolpidem 10mg initiated 2 days ago given in addition to klonipin, gabapentin, seroquel. Discontinue zolpidem. Sedating meds except scheduled benzos held today. Monitor mentation and resume as appropriate ESBL Klebsiella UTI Continue meropenem Hypokalemia Potassium 3.2, repleted Hypomagnesemia Magnesium 1.5, repleted AUBRIE secondary to ATN Creatinine trending down Avoid nephrotoxic medications Acute on chronic normocytic anemia above transfusion threshold ESBL Klebsiella UTI Continue meropenem Hypertension Stable blood pressure Continue amlodipine, lisinopril Diabetes mellitus type 2 Sliding scale, Lantus Mental health Continue home medications GERD PPI COPD Albuterol inhaler no exacerbation Peripheral arterial disease Continue aspirin and statin DVT prophylaxis with Lovenox Full code DISPO lives at home with family , however per son with whom she lives, patient with recurrent overdoses, does not wish for her to return home given kids are at home and [facility] is involved. Case management following, PT eval pending Requires ongoing inpt stay on iv meropenem for resistent uti/pneumonia and awaiting safe dispo/placement Quality Stroke Does the patient have a stroke diagnosis?: No VTE Prior VTE?: No VTE Risk Level:: Medical - moderate - high VTE Device Contraindication: N/A - Device Ordered VTE Drug Contraindication: N/A - Med Ordered
[2024-01-25] MEDS: Fluticasone Propionate 100 MCG BLST.W.DEV 1 PUFF INHALE ×2 (07:18→20:27)
[2024-01-25 07:19] LABS: Glucose, Whole Blood 205 mg/dL (60-115)
[2024-01-25] MEDS: ondansetron HCL 4 MG/2 ML VIAL IVPUSH (08:34)
[2024-01-25] MEDS: methylPREDNISolone Sod Succ 40 MG/ML VIAL IVPUSH (08:38)
[2024-01-25] MEDS: Nicotine 14 MG PATCH.TD24 TRANSDERMA (08:38)
[2024-01-25] MEDS: Insulin Lispro 100 UNIT/ML 3 ML VIAL SUBCUT ×3 (08:39→22:09)
[2024-01-25] MEDS: Insulin Glargine,Hum.rec.anlog 100 UNIT/ML 10 ML VIAL 15 UNIT SUBCUT (08:40)
[2024-01-25] MEDS: Metoprolol Succinate ER 25 MG TAB.ER.24H PO (08:46)
[2024-01-25] MEDS: Aspirin Enteric Coated 81 MG TABLET.DR PO (08:46)
[2024-01-25] MEDS: buPROPion HCl XL 300 MG TAB.ER.24H PO (08:46)
[2024-01-25] MEDS: amLODIPine Besylate 10 MG TABLET PO (08:46)
[2024-01-25] MEDS: Atorvastatin Calcium 40 MG TABLET PO (08:46)
[2024-01-25] MEDS: lisinopriL 40 MG TABLET PO (08:46)
--- NOTE | 2024-01-25 10:47 | MHC.SLORD ---
Speech Language Pathology Order Status: Patient seen by on-call IRB COMPLIANCE COORDINATOR over the weekend for bedside swallow exam post-extubation. She was noted to be edentulous and was started on a chopped diet (NDD3) with thin liquids. IRB COMPLIANCE COORDINATOR attempted to see patient this morning for f/u. Patient refused food and drinks, reported she was vomiting and felt nauseous. There was what appeared to be yellow vomit over side of the bed on the bedding and on the floor. Patient stated her nurse was aware. [place] Message sent alerting RN and PA. Will re-attempt in the p.m.
--- NOTE | 2024-01-25 11:15 | MHC.CM.PN ---
CM received a call from Judy at [facility] informing us that pt.'s son refuses for her to come home. There are children in the home and this is the second drug OD in a few weeks for this pt. CM called son, no answer and not able to leave message, called dtr, phone # is not in service. Pt is very lethargic at this time, CM will approach later today to discuss this with her. Have requested a PT eval to determine if she can go to [facility], she was in [place] in the Spring and said it had gone well for her. CM to follow and continue to assist with a DC plan.
[2024-01-25 11:23] LABS: Amphetamine Screen Urine Not Detected (Not Detect); Barbiturates, Urine Not Detected (Not Detect); Benzodiazepines Screen Urine Not Detected (Not Detect); Buprenorphine Scr Not Detected (Not Detect); Cannabinoid Screen Urine Not Detected (Not Detect); Cocaine Screen Urine Not Detected (Not Detect); Fentanyl, urine POSITIVE (Not Detect); Methadone Screen, Urine Positive (Not Detect); Opiate Screen Urine Not Detected (Not Detect); Oxycodone Screen Urine Not Detected (Not Detect); Phencyclidine Screen Urine Not Detected (Not Detect)
[2024-01-25 11:28] LABS: Glucose, Whole Blood 173 mg/dL (60-115)
--- NOTE | 2024-01-25 11:33 | MHC.CLN ---
F/U PT EXTUBATED AND TRANSFERRED TO MEDICAL FLOOR PO INTAKE 100% X 2 MEALS DIET RX: CHOPPED-APPROPRIATE MONITOR PO INTAKE RD TO FOLLOW WEEKLY
[2024-01-25] MEDS: Metoclopramide HCl 10 MG/2 ML VIAL IVPUSH (11:42)
[2024-01-25 12:26] LABS: Venous Blood Gas Refer to POC result
[2024-01-25 12:27] LABS: VBG Base Excess 4.6 mmol/L; VBG HCO3 27 mmol/L (22-26); VBG pCO2 35 mmHg; VBG pO2 88 mmHg
--- NOTE | 2024-01-25 13:52 | MHC.SL.SWA ---
Speech Pathologist Impression: Risk of aspiration, oral phase dysphagia Risk of Aspiration Due to: History of Pneumonia Hx of Recent Extubation Dysphasia Diet Status: No changes at this time Liquid Consistency and Strategies for Safe Swallow: Liquid Intake Recommendation: Thin Liquid Intake Strategies: Small Sips Solid Food Consistency: Dietary Recommendations: Chopped/Advanced (NDD3) Additional Modifications to Solid Foods: Alternate liquids and solids. Patient will need full assistance at first meal, assess at that time ability to transition to greater independence. Oral Medication Intake: Whole with Liquid Please contact the pharmacy regarding appropriate crushable or liquid drug formulations that are available whenever modified delivery is recommended. Compensatory Strategies and Precautions to be Taken for Safe Swallow: Sitting Upright (90 deg) Small Bites and Sips Alternate Liquids/Solids Rate of Ingestion Change Avoid Specific Foods Supervision While Eating and Drinking for Safe Swallow: Total Supervision (1:1) Foods to Avoid: Avoid hard, crunchy, dry difficult to chew solids. Swallowing Recommended Treatments: Compens. Strategy Educat. Recommendation for Speech: Inpatient Speech Therapy Comment: Patient presents with oral motor function and swallow mostly WFL, however patient is edentulous, and recently extubated. ? aspiration event (s) if present, associated with/during substance abuse episodes. Recommend START diet of Chopped/Advanced (NDD3) with THIN liquids, pills whole with liquid or puree. Patient will require full assistance at first meal, assess at that time ability to transition to greater independence. RN notified of recommendation in person, MD GRAY by secure text. DEPENDENCY COUNSELOR to follow 1X for toleration of recommended diet, upgrade if indicated. Frequency/Duration: Date Range for Service Req: Timeline to reassess: [employer] Clinican/Clinical Fellow: No Supervisory Statement: I have reviewed and agree with the student/clinical fellow's documentation: N/A Speech Language Pathologist: Krissy Espinoza M.A., CCC-DEPENDENCY COUNSELOR
[2024-01-25 15:40] LABS: Glucose, Whole Blood 294 mg/dL (60-115)
[2024-01-25 20:16] LABS: Glucose, Whole Blood 204 mg/dL (60-115)
[2024-01-25] MEDS: Enoxaparin Sodium 40 MG/0.4 ML SYRINGE SUBCUT (21:56)
[2024-01-26] VITALS (15 sets, daily range): BP systolic 148–198; BP diastolic 76–96; PULSE 67–78; RESP 16–24; TEMP 36–36.6; O2SAT 94–98; BMI 24.1
[2024-01-26] MEDS: amLODIPine Besylate 5 MG TABLET PO ×2 (01:09→08:40)
[2024-01-26 06:04] LABS: Anion Gap 18 (12-20); Blood Urea Nitrogen 19 mg/dL (9-16); Calcium 10.3 mg/dL (8.4-10.2); Carbon Dioxide 24 mmol/L (22-29); Chloride 99 mmol/L (96-108); Creatinine Clr Calc Pharmacy 51.3; Estimated Glomerular Filt Rate > 60; Glucose Random 230 mg/dL (60-115); Potassium 3.8 mmol/L (3.3-5.1); Sodium 137 mmol/L (135-145)
[2024-01-26] MEDS: Omeprazole 20 MG CAPSULE.DR PO (06:08)
[2024-01-26] MEDS: Fluticasone Propionate 100 MCG BLST.W.DEV 1 PUFF INHALE ×2 (07:21→20:00)
[2024-01-26] MEDS: Albuterol/Iprat 2.5/0.5MG 3 ML AMPUL.NEB INHALE ×3 (07:22→20:00)
[2024-01-26 07:33] LABS: Glucose, Whole Blood 250 mg/dL (60-115)
[2024-01-26] MEDS: Insulin Glargine,Hum.rec.anlog 100 UNIT/ML 10 ML VIAL 15 UNIT SUBCUT (08:39)
[2024-01-26] MEDS: Insulin Lispro 100 UNIT/ML 3 ML VIAL SUBCUT ×4 (08:39→20:31)
[2024-01-26] MEDS: lisinopriL 40 MG TABLET PO (08:40)
[2024-01-26] MEDS: amLODIPine Besylate 10 MG TABLET PO (08:40)
[2024-01-26] MEDS: Atorvastatin Calcium 40 MG TABLET PO (08:40)
[2024-01-26] MEDS: Aspirin Enteric Coated 81 MG TABLET.DR PO (08:40)
[2024-01-26] MEDS: buPROPion HCl XL 300 MG TAB.ER.24H PO (08:40)
[2024-01-26] MEDS: methylPREDNISolone Sod Succ 40 MG/ML VIAL IVPUSH (08:40)
[2024-01-26] MEDS: Metoprolol Succinate ER 25 MG TAB.ER.24H PO (08:41)
[2024-01-26] MEDS: Nicotine 14 MG PATCH.TD24 TRANSDERMA (08:48)
[2024-01-26] MEDS: carvediloL 6.25 MG TABLET PO ×2 (09:43→20:30)
--- NOTE | 2024-01-26 11:01 | HE.PHANOTE ---
RE: METHADONE DOSING Last methadone dose of 130 mg was given on 01/18/24 @508pm + bottle for 01/20/24 per Kirsten SMITH at [facility] Care Resource [facility].
[2024-01-26 11:02] LABS: Glucose, Whole Blood 252 mg/dL (60-115)
--- NOTE | 2024-01-26 11:05 | MHC.SL.DTX ---
Dysphagia Diet modifications: Last documented Solid diet consistencies: Chopped/Advanced (NDD3) Last documented Liquid consistency: Thin Last documented Medication Administration: Changes made to current diet?: No: No changes at this time Liquid Consistency and Strategies: Liquid Intake Recommendation: Thin Compensatory Strategies for Safe Swallow: Small Sips Compensatory Strategies for Safe Swallow(b): Sitting Upright (90 deg) Small Bites and Sips Alternate Liquids/Solids Rate of Ingestion Change Avoid Specific Foods Solid Food Consistency: Dietary Recommendations: Chopped/Advanced (NDD3) Additional Modifications to Solids: Alternate liquids and solids. Patient will need full assistance at first meal, assess at that time ability to transition to greater independence. Oral Medication Intake: Whole with Liquid Strategies and Precautions to be Taken for Safe Swallow: Sitting Upright (90 deg) Small Bites and Sips Alternate Liquids/Solids Rate of Ingestion Change Avoid Specific Foods Supervision While Eating and/Drinking: Total Supervision (1:1) Foods to Avoid: Avoid hard, crunchy, dry difficult to chew solids. Swallowing Recommended Treatments: Compens. Strategy Educat. Level of Impact on: Daily activities: Mild Interpersonal interactions: Education: None Employment: None Community: Mild Prognosis for Improvement: Good Recommendation for Speech: Inpatient Speech Therapy Comment: Pt is in bed awake with the TV on but the sound off. Her Breakfast tray is at bedside and accurate to her diet order. She has not touched it however, and initially declines tray set-up. She does agree to trial some food with encouragement. She is repositioned upright and provided a cup of thin liquid (water) which she accepts and has difficulty raising to her mouth. She is provided a straw which she accepts and is then able to take x1-2 sip without overt s/s of aspiration. She accepts bites of Chopped/Advanced Solids moistened with syrup. Her oral preparation is delayed 2/2 missing teeth. She denies having dentures here, or a home. She is offered a follow-up sips of Thin Liquids via straw and swallows with adequate oral clearance and no overt s/s of aspiration. She has been consistent with this diet texture, despite frequent declining of food, and is not deemed a good candidate for further upgrade due to edentulous status and difficulty self-feeding d/t BUE weakness post-intubation. When asked if she had stomach pain or nausea, she endorsed nausea only. No further skilled SANITATION LEAD intervention is indicated at this time. Recommend she continue on current diet of Chopped/Advanced Solids and Thin Liquids. Meds Whole with Liquid. Pt will benefit from tray set-up and encouragement to complete meals. Please re-refer if status changes. Frequency/Duration: Date Range for Service Req: Timeline to reassess: Additional Comments: Patient is edentulous, post-extubation. Treatment: Pt is in bed awake with the TV on but the sound off. Her Breakfast tray is at bedside and accurate to her diet order. She has not touched it however, and initially declines tray set-up. She does agree to trial some food with encouragement. She is repositioned upright and provided a cup of thin liquid (water) which she accepts and has difficulty raising to her mouth. She is provided a straw which she accepts and is then able to take x1-2 sip without overt s/s of aspiration. She accepts bites of Chopped/Advanced Solids moistened with syrup. Her oral preparation is delayed 2/2 missing teeth. She denies having dentures here, or a home. She is offered a follow-up sips of Thin Liquids via straw and swallows with adequate oral clearance and no overt s/s of aspiration. She has been consistent with this diet texture, despite frequent declining of food, and is not deemed a good candidate for further upgrade due to edentulous status and difficulty self-feeding d/t BUE weakness post-intubation. When asked if she had stomach pain or nausea, she endorsed nausea only. No further skilled SANITATION LEAD intervention is indicated at this time. Recommend she continue on current diet of Chopped/Advanced Solids and Thin Liquids. Meds Whole with Liquid. Pt will benefit from tray set-up and encouragement to complete meals. Please re-refer if status changes. Assessment: Chalk Cutter Clinican/Clinical Fellow: No Supervisory Statement: I have reviewed and agree with the student/clinical fellow's documentation: N/A Speech Language Pathologist: Rigo Fregoso M.A., [facility]-SANITATION [facility]AD
--- NOTE | 2024-01-26 11:05 | MHC.SL.DTX ---
Dysphagia Diet modifications: Last documented Solid diet consistencies: Chopped/Advanced (NDD3) Last documented Liquid consistency: Thin Changes made to current diet?: No: No changes at this time Liquid Consistency and Strategies: Liquid Intake Recommendation: Thin Compensatory Strategies for Safe Swallow: Small Sips Compensatory Strategies for Safe Swallow(b): Sitting Upright (90 deg) Small Bites and Sips Alternate Liquids/Solids Rate of Ingestion Change Avoid Specific Foods Solid Food Consistency: Dietary Recommendations: Chopped/Advanced (NDD3) Additional Modifications to Solids: Alternate liquids and solids. Patient will need full assistance at mealtime, assess at that time ability to transition to greater independence. Oral Medication Intake: Whole with Liquid Strategies and Precautions to be Taken for Safe Swallow: Sitting Upright (90 deg) Small Bites and Sips Alternate Liquids/Solids Rate of Ingestion Change Avoid Specific Foods Supervision While Eating and/Drinking: Total Supervision (1:1) Foods to Avoid: Avoid hard, crunchy, dry difficult to chew solids. Swallowing Recommended Treatments: Compens. Strategy Educat. Level of Impact on: Daily activities: Mild Interpersonal interactions: Education: None Employment: None Community: Mild Prognosis for Improvement: Good Recommendation for Speech: Inpatient Speech Therapy Additional Comments: Patient is edentulous, post-extubation. Treatment: Pt is in bed awake with the TV on but the sound off. Her Breakfast tray is at bedside and accurate to her diet order. She has not touched it however, and initially declines tray set-up. She does agree to trial some food with encouragement. She is repositioned upright and provided a cup of thin liquid (water) which she accepts and has difficulty raising to her mouth. She is provided a straw which she accepts and is then able to take x1-2 sip without overt s/s of aspiration. She accepts bites of Chopped/Advanced Solids moistened with syrup. Her oral preparation is delayed 2/2 missing teeth. She denies having dentures here, or a home. She is offered a follow-up sips of Thin Liquids via straw and swallows with adequate oral clearance and no overt s/s of aspiration. She has been consistent with this diet texture, despite frequent declining of food, and is not deemed a good candidate for further upgrade due to edentulous status and difficulty self-feeding d/t BUE weakness post-intubation. When asked if she had stomach pain or nausea, she endorsed nausea only. No further skilled LAW EXAMINER intervention is indicated at this time. Recommend she continue on current diet of Chopped/Advanced Solids and Thin Liquids. Meds Whole with Liquid. Pt will benefit from tray set-up and encouragement to complete meals. Please re-refer if status changes. Assessment: Mail Rider Clinican/Clinical Fellow: No Supervisory Statement: I have reviewed and agree with the student/clinical fellow's documentation: N/A Speech Language Pathologist: Rigo Fregoso M.A., CCC-LAW EXAMINER
--- NOTE | 2024-01-26 14:39 | MHC.CM.PN ---
Signed STALIN has been faxed to [facility] Katina, and insurance info has been faxed to [facility] in [place], to arrange for pt. to receive Methadone from [facility] while she is at [facility] at .
--- NOTE | 2024-01-26 14:48 | HO.ADDICT_ITS ---
History of Present Illness Date of Service: 01/26/2024 Chief Complaint: hypoxic resp failure septic shock uti left lung PN Reason for Consult: OUD-restart methadone Sources of Information: patient interviewed and chart reviewed HPI Narrative: Patient medically admitted with respiratory failure-question if related to opioid use/overdose. Admitted in 01/19, in ICU and transferred to medical floor on 01/23. Chart review shows that patient was recnelty discharged from [facility] (01/16) and during that admission methadone 130mg was being administered and to be continued outpatient via [facility]. Since being on medical floor patient was noted to be somnolent with difficulty staying awake, sedating meds put on hold. Patient seen in room 482. Initially eyes closed, but woke to name. Slow to respond to questions, but providing short answers. Believes her last dose of methadone was 3 days ago (unclear when last dose was). When asked if she felt sleepy, she smiled and nodded. When asked if shes felt withdrwal sx, she denied, but in follow up did state that her stomach did not feel well. She was noted to be yawning and sneezing during interview. She did not appear restless or diaphoretic. No piloerection noted. Medical Evaluation Reviewed: Yes Review of Systems Constitutional: Reports as per HPI Diagnostics Vital Signs (24Hr): Vital Signs - 24 hr 01/25/24 15:20 01/25/24 20:00 01/25/24 20:30 Temperature 97.6 F 96.8 F Pulse Rate 65 80 80 Respiratory Rate 18 16 16 Blood Pressure 169/61 H 190/90 H Pulse Oximetry 90 L 94 Oxygen Delivery Method Room Air Room Air 01/26/24 00:00 01/26/24 01:09 01/26/24 03:41 Temperature 97.6 F 96.8 F Pulse Rate 70 78 Respiratory Rate 16 16 Blood Pressure 180/90 H 180/90 H 180/80 H Pulse Oximetry 95 96 Oxygen Delivery Method Room Air Room Air 01/26/24 06:00 01/26/24 07:22 01/26/24 07:57 Temperature 97.7 F Pulse Rate 78 76 Respiratory Rate 16 24 H Blood Pressure 170/90 H 198/86 H Pulse Oximetry 94 Oxygen Delivery Method Room Air 01/26/24 08:40 01/26/24 08:40 01/26/24 08:40 Temperature Pulse Rate Respiratory Rate Blood Pressure 198/86 H 198/86 H 198/86 H Pulse Oximetry Oxygen Delivery Method 01/26/24 08:41 01/26/24 09:43 01/26/24 11:42 Temperature 97.9 F Pulse Rate 76 76 73 Respiratory Rate 22 H Blood Pressure 198/86 H 148/96 H 158/80 H Pulse Oximetry 95 Oxygen Delivery Method Room Air 01/26/24 13:36 Temperature Pulse Rate 73 Respiratory Rate 22 H Blood Pressure Pulse Oximetry Oxygen Delivery Method BMI result Body Mass Index 24.1 Labs 01/24/24 08:04 01/26/24 05:35 Labs: Laboratory Results - last 48 hr 01/24/24 01/24/24 01/25/24 16:08 21:12 06:00 Hold Purple Top SEE NOTE VBG pH VBG pCO2 VBG pO2 VBG HCO3 VBG O2 Saturation VBG Base Excess Sodium 139 Potassium 3.8 Chloride 102 Carbon Dioxide 25 Anion Gap 16 BUN 25 H Creatinine 1.15 Estim Creat Clear Calc 37.5 Estimated GFR 48 POC Glucose 389 H* 391 H* Random Glucose 212 H Calcium 9.6 Magnesium 2.0 Urine Opiates Screen Ur Buprenorphine Scrn Ur Oxycodone Screen Urine Methadone Screen Urine Fentanyl Screen Ur Barbiturates Screen Ur Phencyclidine Scrn Ur Amphetamines Screen U Benzodiazepines Scrn Urine Cocaine Screen U Marijuana (THC) Screen 01/25/24 01/25/24 01/25/24 06:13 07:15 10:30 Hold Purple Top VBG pH VBG pCO2 VBG pO2 VBG HCO3 VBG O2 Saturation VBG Base Excess Sodium Potassium Chloride Carbon Dioxide Anion Gap BUN Creatinine Estim Creat Clear Calc Estimated GFR POC Glucose 205 H Random Glucose Calcium Magnesium Cancelled Urine Opiates Screen Not Detected Ur Buprenorphine Scrn Not Detected Ur Oxycodone Screen Not Detected Urine Methadone Screen Positive H Urine Fentanyl Screen POSITIVE H Ur Barbiturates Screen Not Detected Ur Phencyclidine Scrn Not Detected Ur Amphetamines Screen Not Detected U Benzodiazepines Scrn Not Detected Urine Cocaine Screen Not Detected U Marijuana (THC) Screen Not Detected 01/25/24 01/25/24 01/25/24 11:20 12:18 15:36 Hold Purple Top VBG pH 7.50 H VBG pCO2 35 VBG pO2 88 VBG HCO3 27 H VBG O2 Saturation 99.0 VBG Base Excess 4.6 Sodium Potassium Chloride Carbon Dioxide Anion Gap BUN Creatinine Estim Creat Clear Calc Estimated GFR POC Glucose 173 H 294 H Random Glucose Calcium Magnesium Urine Opiates Screen Ur Buprenorphine Scrn Ur Oxycodone Screen Urine Methadone Screen Urine Fentanyl Screen Ur Barbiturates Screen Ur Phencyclidine Scrn Ur Amphetamines Screen U Benzodiazepines Scrn Urine Cocaine Screen U Marijuana (THC) Screen 01/25/24 01/26/24 01/26/24 20:12 05:35 07:28 Hold Purple Top VBG pH VBG pCO2 VBG pO2 VBG HCO3 VBG O2 Saturation VBG Base Excess Sodium 137 Potassium 3.8 Chloride 99 Carbon Dioxide 24 Anion Gap 18 BUN 19 H Creatinine 0.84 Estim Creat Clear Calc 51.3 Estimated GFR > 60 POC Glucose 204 H 250 H Random Glucose 230 H Calcium 10.3 H D Magnesium Urine Opiates Screen Ur Buprenorphine Scrn Ur Oxycodone Screen Urine Methadone Screen Urine Fentanyl Screen Ur Barbiturates Screen Ur Phencyclidine Scrn Ur Amphetamines Screen U Benzodiazepines Scrn Urine Cocaine Screen U Marijuana (THC) Screen 01/26/24 10:57 Hold Purple Top VBG pH VBG pCO2 VBG pO2 VBG HCO3 VBG O2 Saturation VBG Base Excess Sodium Potassium Chloride Carbon Dioxide Anion Gap BUN Creatinine Estim Creat Clear Calc Estimated GFR POC Glucose 252 H Random Glucose Calcium Magnesium Urine Opiates Screen Ur Buprenorphine Scrn Ur Oxycodone Screen Urine Methadone Screen Urine Fentanyl Screen Ur Barbiturates Screen Ur Phencyclidine Scrn Ur Amphetamines Screen U Benzodiazepines Scrn Urine Cocaine Screen U Marijuana (THC) Screen Imaging Radiology Impressions: ITS Impressions Chest X-Ray 01/20/24 18:38 IMPRESSION: Worsened patchy bilateral airspace disease now more densely opacifying both lung bases. Infectious etiology would be suspected in the acute setting. Aspiration could have this appearance and should be clinically correlated. Chest X-Ray 01/21/24 01:25 IMPRESSION: 1. Lines and tubes in good position as described above. 2. Diffuse bilateral infiltrates are again seen, similar to the previous study. 3. No pneumothorax. Pulmonary Perfusion Imaging 01/21/24 08:50 IMPRESSION: Based on perfusion only modified PIOPED 2 criteria, PE is considered absent. Mental Status Exam Mental Status Exam Level of Consciousness: Drowsy Medications Medications Current Medications Albuterol Sulfate (Albuterol Sulfate (0.083%) 2.5 Mg/3 Ml Vial.Neb) 2.5 mg INHALE Q3H PRN PRN Reason: wheezing Last Admin: 01/23/24 05:17 Dose: 2.5 mg Albuterol/Ipratropium (Albuterol/Iprat 2.5/0.5mg 3 Ml Ampul.Neb) 3 ml INHALE Q6H [facility] Last Admin: 01/26/24 13:36 Dose: 3 ml Amlodipine Besylate (Amlodipine Besylate 10 Mg Tablet) 10 mg PO DAILY [facility]; Protocol Last Admin: 01/26/24 08:40 Dose: 10 mg Aspirin (Aspirin Enteric Coated 81 Mg Tablet.Dr) 81 mg PO DAILY [facility] Last Admin: 01/26/24 08:40 Dose: 81 mg Atorvastatin Calcium (Atorvastatin Calcium 40 Mg Tablet) 40 mg PO DAILY [facility] Last Admin: 01/26/24 08:40 Dose: 40 mg Bupropion HCl (Bupropion Hcl Xl 300 Mg Tab.Er.24h) 300 mg PO DAILY [facility] Last Admin: 01/26/24 08:40 Dose: 300 mg Carvedilol (Carvedilol 6.25 Mg Tablet) 6.25 mg PO BID [facility]; Protocol Last Admin: 01/26/24 09:43 Dose: 6.25 mg Clonazepam (Clonazepam 0.125 Mg Tab.Rapdis) 0.25 mg PO TID [facility] Last Admin: 01/25/24 15:44 Dose: 0.25 mg Enoxaparin Sodium (Enoxaparin Sodium 40 Mg/0.4 Ml Syringe) 40 mg SUBCUT Q24H [facility] Last Admin: 01/25/24 21:56 Dose: 40 mg Fluticasone Propionate (Fluticasone Propionate 100 Mcg Blst.W.Dev) 1 puff INHALE RBID [facility] Last Admin: 01/26/24 07:21 Dose: 1 puff Gabapentin (Gabapentin 600 Mg Tablet) 600 mg PO TID [facility] Last Admin: 01/25/24 15:38 Dose: Not Given Glucose (Glucose Gel 15 Gm Gel..Gram.) 15 gm PO Q15M PRN; Protocol PRN Reason: per Hypoglycemia Standing Ord. Dextrose (D10) 250 mls @ 750 mls/hr IV Q15M PRN PRN Reason: per Hypoglycemia Standing Ord. Last Infusion: 01/20/24 18:44 Dose: Infused Meropenem 1 gm/ Sodium (Chloride) 100 mls @ 200 mls/hr IV Q12H [facility] Last Infusion: 01/26/24 10:20 Dose: Infused Insulin Glargine (Insulin Glargine,Hum.Rec.Anlog 100 Unit/Ml 10 Ml Vial) 15 unit SUBCUT DAILY [facility] Last Admin: 01/26/24 08:39 Dose: 15 unit Insulin Human Lispro (Insulin Lispro 100 Unit/Ml 3 Ml Vial) 0 unit SUBCUT QIDACHS [facility]; Protocol Last Admin: 01/26/24 12:19 Dose: 4 unit Lisinopril (Lisinopril 40 Mg Tablet) 40 mg PO DAILY [facility]; Protocol Last Admin: 01/26/24 08:40 Dose: 40 mg Methylprednisolone Sodium Succinate (Methylprednisolone Sod Succ 40 Mg/Ml Vial) 40 mg IVPUSH DAILY [facility] Last Admin: 01/26/24 08:40 Dose: 40 mg Mirtazapine (Mirtazapine 7.5 Mg Tablet) 7.5 mg PO BEDTIME [facility] Last Admin: 01/24/24 20:51 Dose: 7.5 mg Naloxone HCl (Naloxone Hcl 0.4 Mg/Ml Vial) 0.2 mg IVPUSH Q2M PRN PRN Reason: Excessive sedation or RR < 8 Nicotine (Nicotine 14 Mg Patch.Td24) 14 mg TRANSDERMA DAILY [facility] Last Admin: 01/26/24 08:48 Dose: 14 mg Omeprazole (Omeprazole 20 Mg Capsule.Dr) 20 mg PO DAILY@0630 [facility] Last Admin: 01/26/24 06:08 Dose: 20 mg Ondansetron HCl (Ondansetron Hcl 4 Mg/2 Ml Vial) 4 mg IVPUSH Q8H PRN PRN Reason: Nausea and Vomiting Quetiapine Fumarate (Quetiapine Fumarate 50 Mg Tablet) 50 mg PO BID [facility] Last Admin: 01/25/24 09:42 Dose: Not Given Allergies Allergies Allergy/AdvReac Type Severity Reaction Status Date / Time No Known Allergies Allergy Verified 01/20/24 17:38 Assessment & Plan Assessment & Plan (1) Opioid use disorder: Status: Acute Code(s): F11.90 - Opioid use, unspecified, uncomplicated Assessment and Plan: * will restart methadone at 10mg q4H PRN for opioid withdrawal. * monitor for increasing sedation and hold dose subsequent doses if oversedation noted * will titrate dose based on response Total time managing care of this patient today __35__ minutes. [facility] Past Medical History Medical History Diabetic osteomyelitis Below-knee amputation of right lower extremity Osteomyelitis of ankle Charcot foot due to diabetes mellitus Acute hyperglycemia Cellulitis Gastroenteritis Gastritis Constipation Diabetic foot ulcer New onset of congestive heart failure DKA (diabetic ketoacidoses) COVID-19 Dyslipidemia Glaucoma Pulmonary emboli Depression Chronic prescription opiate use Diabetes mellitus Pulmonary nodule Tobacco dependence COPD (chronic obstructive pulmonary disease) Family History Family History Other CVA (cerebral vascular accident) Family history: reviewed and not pertinent Surgical History Surgical History History of below-knee amputation of right lower extremity (01/13/22) Cataract extraction status, right eye Cataract extraction status, left eye Hx of cholecystectomy Social History Social History Household Members: Unknown / Unable to assess Housing: Unknown / Unable to assess Housing Other:: hotel Do you presently have visiting nurse or other home services: Yes Unable to assess alcohol history related to: Unknown Alcohol intake: never Comment: refused telesitter Patient Tobacco Use Status: Tobacco use Unknown Tobacco use type: Cigarette Cigarette Packs Per Day: 0.3 Cigarettes Per Day: 6.0 Years Smoked: 50 e-Cigarette/Vaping Use: Currently Using Second Hand Smoke Exposure: No Use of substances other than those prescribed or required for medical reasons: Unable to respond Substance Use Type: Former Substance User Currently Displaying Signs/Symptoms of Drug Intoxication Withdrawal: No Advance Directives: Yes Advance Directives on File: Yes Advance Directives Date on File: 10/20/23 Do you have a plan to hurt others: No Plan Nutrition Risks: On aspiration precautions Patient : No service: Yes Current occupational status: disabled
--- NOTE | 2024-01-26 15:45 | HO.PM.IMPN ---
Subjective Subjective Date of Service: 01/26/24 Interval History: respiratory failure secondary to aspiration pneumonia/Klebsiella pneumoniae Review of Systems mental status somwhat improving more awake today no fevers sob improving Physical Exam Vital Signs: Vital Signs: Last Vital Signs Temp 97.9 F 01/26/24 11:42 Pulse 73 01/26/24 13:36 Resp 22 H 01/26/24 13:36 BP 158/80 H 01/26/24 11:42 Pulse Ox 95 01/26/24 11:42 O2 Del Method Room Air 01/26/24 11:42 O2 Flow Rate 2 01/25/24 12:00 FiO2 40 01/22/24 16:00 BMI result Body Mass Index 24.1 Appearance: awake (aox2)? cvs: rrr, [id number] res: clear to auscultation ,no rhonchii or wheezing abd: no rebound or guarding ,nt, bs present. ext pulses present , no cyanosis . neuro: axo3 , nonfocal. Objective Data Active Medications Albuterol Sulfate (Albuterol Sulfate (0.083%) 2.5 Mg/3 Ml Vial.Neb) 2.5 mg INHALE Q3H PRN PRN Reason: wheezing Last Admin: 01/23/24 05:17 Dose: 2.5 mg Documented By: FRANDY Albuterol/Ipratropium (Albuterol/Iprat 2.5/0.5mg 3 Ml Ampul.Neb) 3 ml INHALE Q6H [facility] Last Admin: 01/26/24 13:36 Dose: 3 ml Documented By: HEATHER Amlodipine Besylate (Amlodipine Besylate 10 Mg Tablet) 10 mg PO DAILY [facility]; Protocol Last Admin: 01/26/24 08:40 Dose: 10 mg Documented By: ANA Aspirin (Aspirin Enteric Coated 81 Mg Tablet.) 81 mg PO DAILY [facility] Last Admin: 01/26/24 08:40 Dose: 81 mg Documented By: ANA Atorvastatin Calcium (Atorvastatin Calcium 40 Mg Tablet) 40 mg PO DAILY [facility] Last Admin: 01/26/24 08:40 Dose: 40 mg Documented By: ANA Bupropion HCl (Bupropion Hcl Xl 300 Mg Tab.Er.24h) 300 mg PO DAILY [facility] Last Admin: 01/26/24 08:40 Dose: 300 mg Documented By: ANA Carvedilol (Carvedilol 6.25 Mg Tablet) 6.25 mg PO BID [facility]; Protocol Last Admin: 01/26/24 09:43 Dose: 6.25 mg Documented By: ANA Clonazepam (Clonazepam 0.125 Mg Tab.Rapdis) 0.25 mg PO TID [facility] Last Admin: 01/25/24 15:44 Dose: 0.25 mg Documented By: ANA Enoxaparin Sodium (Enoxaparin Sodium 40 Mg/0.4 Ml Syringe) 40 mg SUBCUT Q24H [facility] Last Admin: 01/25/24 21:56 Dose: 40 mg Documented By: KEHINDE Fluticasone Propionate (Fluticasone Propionate 100 Mcg Blst.W.Dev) 1 puff INHALE RBID [facility] Last Admin: 01/26/24 07:21 Dose: 1 puff Documented By: HEATHER Gabapentin (Gabapentin 600 Mg Tablet) 600 mg PO TID [facility] Last Admin: 01/25/24 15:38 Dose: Not Given Documented By: ANA Non-Admin Reason: Physician Held Med Glucose (Glucose Gel 15 Gm Gel..Gram.) 15 gm PO Q15M PRN; Protocol PRN Reason: per Hypoglycemia Standing Ord. Dextrose (D10) 250 mls @ 750 mls/hr IV Q15M PRN PRN Reason: per Hypoglycemia Standing Ord. Last Infusion: 01/20/24 18:44 Dose: Infused Documented By: TANMAY Meropenem 1 gm/ Sodium (Chloride) 100 mls @ 200 mls/hr IV Q12H [facility] Last Infusion: 01/26/24 10:20 Dose: Infused Documented By: ANA Insulin Glargine (Insulin Glargine,Hum.Rec.Anlog 100 Unit/Ml 10 Ml Vial) 15 unit SUBCUT DAILY [facility] Last Admin: 01/26/24 08:39 Dose: 15 unit Documented By: ANA Insulin Human Lispro (Insulin Lispro 100 Unit/Ml 3 Ml Vial) 0 unit SUBCUT QIDACHS [facility]; Protocol Last Admin: 01/26/24 12:19 Dose: 4 unit Documented By: ANA Lisinopril (Lisinopril 40 Mg Tablet) 40 mg PO DAILY [facility]; Protocol Last Admin: 01/26/24 08:40 Dose: 40 mg Documented By: ANA Methylprednisolone Sodium Succinate (Methylprednisolone Sod Succ 40 Mg/Ml Vial) 40 mg IVPUSH DAILY [facility] Last Admin: 01/26/24 08:40 Dose: 40 mg Documented By: ANA Mirtazapine (Mirtazapine 7.5 Mg Tablet) 7.5 mg PO BEDTIME [facility] Last Admin: 01/24/24 20:51 Dose: 7.5 mg Documented By: СВЕТЛАНА Naloxone HCl (Naloxone Hcl 0.4 Mg/Ml Vial) 0.2 mg IVPUSH Q2M PRN PRN Reason: Excessive sedation or RR < 8 Nicotine (Nicotine 14 Mg Patch.Td24) 14 mg TRANSDERMA DAILY [facility] Last Admin: 01/26/24 08:48 Dose: 14 mg Documented By: ANA Omeprazole (Omeprazole 20 Mg Capsule.Dr) 20 mg PO DAILY@0630 [facility] Last Admin: 01/26/24 06:08 Dose: 20 mg Documented By: KEHINDE Ondansetron HCl (Ondansetron Hcl 4 Mg/2 Ml Vial) 4 mg IVPUSH Q8H PRN PRN Reason: Nausea and Vomiting Quetiapine Fumarate (Quetiapine Fumarate 50 Mg Tablet) 50 mg PO BID [facility] Last Admin: 01/25/24 09:42 Dose: Not Given Documented By: STEVAN Non-Admin Reason: hold per Labs 01/24/24 08:04 01/26/24 05:35 Labs: Laboratory Results - last 24 hr 01/25/24 01/26/24 01/26/24 20:12 05:35 07:28 Anion Gap 18 Estim Creat Clear Calc 51.3 Estimated GFR > 60 POC Glucose 204 H 250 H Random Glucose 230 H Calcium 10.3 H D 01/26/24 10:57 Anion Gap Estim Creat Clear Calc Estimated GFR POC Glucose 252 H Random Glucose Calcium Microbiology Microbiology Results: Microbiology 01/20/24 17:35 Blood Culture - Final Blood - Venous No growth after 5 days. 01/20/24 17:30 Blood Culture - Final Blood - Venous No growth after 5 days. Assessment and Plan (1) COPD with acute exacerbation: Status: Acute (2) UTI (urinary tract infection): Status: Acute Assessment and Plan: Day 7: 64 year old women admitted by ICU secondary to drug overdose. She has a history of polysubstance abuse and recurrent episodes of hypoxic respiratory failure. She arrived to the ER via EMS unresponsive, hypoglycemic and hypoxic with oxygen saturation of 70%. Placed on non-rebreather mask. In the ER she was found to be hypothermic, hypoxic and tachypneic as well as very lethargic but arousable. She was then placed on high-flow due to oxygen saturation dropping to 68% and after doing well for a few hours she became more somnolent and hypoxic and was placed on CPAP. She was started on empiric IV antibiotics and x-ray showed worsening bilateral patchy infiltrates questioning pneumonitis. She continued to be hypoglycemic receiving D50 and IV fluids. She had some point was given IV Narcan with good effect but patient became more hypoxic and tachypneic and was transferred to the ICU for emergent intubation. Acute hypoxemic respiratory failure secondary to aspiration pneumonia and Klebsiella pneumoniae Likely secondary to drug intake/overdose Extubated 01/22/24. ICU stepdown 01/22 On 2 L nasal cannula, wean as tolerated per protocol Continue meropenem- intiated 01/22. ID eval acute Lethargy: improving suspect r/t multiple sedating medications at bedtime. Zolpidem 10mg initiated 2 days ago given in addition to klonipin, gabapentin, seroquel. Discontinue zolpidem. Sedating meds except scheduled benzos held . Monitor mentation and resume as appropriate ESBL Klebsiella UTI Continue meropenem Hypokalemia repleted and resolved. Hypomagnesemia repleted and resolved. AUBRIE secondary to ATN improved. Acute on chronic normocytic anemia above transfusion threshold ESBL Klebsiella UTI Continue meropenem Hypertension Stable blood pressure Continue amlodipine, lisinopril Diabetes mellitus type 2 Sliding scale, Lantus Mental health Continue home medications GERD PPI COPD Albuterol inhaler no exacerbation Peripheral arterial disease Continue aspirin and statin DVT prophylaxis with Lovenox Full code DISPO lives at home with family , however per son with whom she lives, patient with recurrent overdoses. Case management following, PT eval pending Requires ongoing inpt stay on iv meropenem for resistent uti/pneumonia and awaiting safe dispo/placement Quality Stroke Does the patient have a stroke diagnosis?: No VTE Prior VTE?: No VTE Risk Level:: Medical - moderate - high VTE Device Contraindication: N/A - Device Ordered VTE Drug Contraindication: N/A - Med Ordered
[2024-01-26 16:19] LABS: Glucose, Whole Blood 255 mg/dL (60-115)
[2024-01-26 20:19] LABS: Glucose, Whole Blood 196 mg/dL (60-115)
[2024-01-26] MEDS: Enoxaparin Sodium 40 MG/0.4 ML SYRINGE SUBCUT (20:27)
--- NOTE | 2024-01-26 22:52 | PC.NURSE ---
Normal saline fluids ordered on 01/20/24 at 1715 ended at 1856. Incorrect end time entered as 2221.
[2024-01-27] VITALS (10 sets, daily range): BP systolic 140–180; BP diastolic 67–91; PULSE 58–76; RESP 16–20; TEMP 36.3–37.2; O2SAT 96–99; BMI 24.6
[2024-01-27] MEDS: Omeprazole 20 MG CAPSULE.DR PO (06:34)
[2024-01-27] MEDS: Fluticasone Propionate 100 MCG BLST.W.DEV 1 PUFF INHALE ×2 (07:24→18:55)
[2024-01-27] MEDS: Albuterol/Iprat 2.5/0.5MG 3 ML AMPUL.NEB INHALE ×3 (07:26→18:55)
[2024-01-27 07:36] LABS: Glucose, Whole Blood 199 mg/dL (60-115)
[2024-01-27] MEDS: lisinopriL 40 MG TABLET PO (08:26)
[2024-01-27] MEDS: methylPREDNISolone Sod Succ 40 MG/ML VIAL IVPUSH (08:27)
[2024-01-27] MEDS: carvediloL 6.25 MG TABLET PO ×2 (08:27→21:01)
[2024-01-27] MEDS: Aspirin Enteric Coated 81 MG TABLET.DR PO (08:27)
[2024-01-27] MEDS: Insulin Lispro 100 UNIT/ML 3 ML VIAL SUBCUT ×4 (08:27→21:01)
[2024-01-27] MEDS: Atorvastatin Calcium 40 MG TABLET PO (08:27)
[2024-01-27] MEDS: buPROPion HCl XL 300 MG TAB.ER.24H PO (08:27)
[2024-01-27] MEDS: amLODIPine Besylate 10 MG TABLET PO (08:27)
[2024-01-27] MEDS: Insulin Glargine,Hum.rec.anlog 100 UNIT/ML 10 ML VIAL 15 UNIT SUBCUT (08:28)
[2024-01-27] MEDS: Nicotine 14 MG PATCH.TD24 TRANSDERMA (09:19)
[2024-01-27] MEDS: methADONE HCl 20 MG/2 ML ORAL.CONC 10 MG PO ×3 (11:11→17:58)
[2024-01-27 11:25] LABS: Glucose, Whole Blood 209 mg/dL (60-115)
--- NOTE | 2024-01-27 12:04 | P.PNADD_ITS ---
Subjective Subjective Date of Service: 01/27/24 Reason For Visit: hypoxic resp failure septic shock uti left lung PN Interim History: Patient seen in follow up Less drowsy, initiating conversation spontaneously and appropriately Methadone 10mg X1 administered with good effect, patient smiling and sitting up in recliner after dose. methadone 10mg administered 3 hours later Patient not feeling well, reporting nausea, but did state methadone helpful Review of Systems Constitutional: Reports as per HPI Mental Status Exam Mental Status Exam Patient Orientation: Person and Place Level of Consciousness: Awake and Appropriate Patient Behavior: Appropriate Diagnostics Vital Signs (24Hr): Vital Signs - 24 hr 01/26/24 13:36 01/26/24 16:00 01/26/24 19:51 Temperature 97.6 F 97.2 F Pulse Rate 73 76 67 Respiratory Rate 22 H 20 18 Blood Pressure 160/76 H 186/90 H Pulse Oximetry 97 98 Oxygen Delivery Method Nasal Cannula Room Air Oxygen Flow Rate 2 01/26/24 20:06 01/26/24 20:30 01/27/24 00:00 Temperature 97.5 F Pulse Rate 69 70 67 Respiratory Rate 18 20 Blood Pressure 179/87 H 172/80 H Pulse Oximetry 98 Oxygen Delivery Method Room Air Oxygen Flow Rate 01/27/24 04:00 01/27/24 07:19 01/27/24 07:23 Temperature 97.7 F 97.3 F Pulse Rate 76 73 Respiratory Rate 20 18 Blood Pressure 177/85 H 180/91 H Pulse Oximetry 99 96 Oxygen Delivery Method Room Air Room Air Nasal Cannula Oxygen Flow Rate 01/27/24 07:26 01/27/24 11:14 Temperature Pulse Rate 73 69 Respiratory Rate 18 16 Blood Pressure Pulse Oximetry Oxygen Delivery Method Oxygen Flow Rate BMI result Body Mass Index 24.1 Labs 01/24/24 08:04 01/26/24 05:35 Labs: Laboratory Results - last 48 hr 01/25/24 01/25/24 01/25/24 12:18 15:36 20:12 VBG pH 7.50 H VBG pCO2 35 VBG pO2 88 VBG HCO3 27 H VBG O2 Saturation 99.0 VBG Base Excess 4.6 Sodium Potassium Chloride Carbon Dioxide Anion Gap BUN Creatinine Estim Creat Clear Calc Estimated GFR POC Glucose 294 H 204 H Random Glucose Calcium 01/26/24 01/26/24 01/26/24 05:35 07:28 10:57 VBG pH VBG pCO2 VBG pO2 VBG HCO3 VBG O2 Saturation VBG Base Excess Sodium 137 Potassium 3.8 Chloride 99 Carbon Dioxide 24 Anion Gap 18 BUN 19 H Creatinine 0.84 Estim Creat Clear Calc 51.3 Estimated GFR > 60 POC Glucose 250 H 252 H Random Glucose 230 H Calcium 10.3 H D 01/26/24 01/26/24 01/27/24 16:14 20:16 07:21 VBG pH VBG pCO2 VBG pO2 VBG HCO3 VBG O2 Saturation VBG Base Excess Sodium Potassium Chloride Carbon Dioxide Anion Gap BUN Creatinine Estim Creat Clear Calc Estimated GFR POC Glucose 255 H 196 H 199 H Random Glucose Calcium 01/27/24 11:22 VBG pH VBG pCO2 VBG pO2 VBG HCO3 VBG O2 Saturation VBG Base Excess Sodium Potassium Chloride Carbon Dioxide Anion Gap BUN Creatinine Estim Creat Clear Calc Estimated GFR POC Glucose 209 H Random Glucose Calcium Imaging Radiology Impressions: ITS Impressions Chest X-Ray 01/20/24 18:38 IMPRESSION: Worsened patchy bilateral airspace disease now more densely opacifying both lung bases. Infectious etiology would be suspected in the acute setting. Aspiration could have this appearance and should be clinically correlated. Chest X-Ray 01/21/24 01:25 IMPRESSION: 1. Lines and tubes in good position as described above. 2. Diffuse bilateral infiltrates are again seen, similar to the previous study. 3. No pneumothorax. Pulmonary Perfusion Imaging 01/21/24 08:50 IMPRESSION: Based on perfusion only modified PIOPED 2 criteria, PE is considered absent. Medications Medications Current Medications Albuterol Sulfate (Albuterol Sulfate (0.083%) 2.5 Mg/3 Ml Vial.Neb) 2.5 mg INHALE Q3H PRN PRN Reason: wheezing Last Admin: 01/23/24 05:17 Dose: 2.5 mg Albuterol/Ipratropium (Albuterol/Iprat 2.5/0.5mg 3 Ml Ampul.Neb) 3 ml INHALE Q6H [facility] Last Admin: 01/27/24 11:12 Dose: 3 ml Amlodipine Besylate (Amlodipine Besylate 10 Mg Tablet) 10 mg PO DAILY [facility]; Protocol Last Admin: 01/27/24 08:27 Dose: 10 mg Aspirin (Aspirin Enteric Coated 81 Mg Tablet.) 81 mg PO DAILY [facility] Last Admin: 01/27/24 08:27 Dose: 81 mg Atorvastatin Calcium (Atorvastatin Calcium 40 Mg Tablet) 40 mg PO DAILY [facility] Last Admin: 01/27/24 08:27 Dose: 40 mg Bupropion HCl (Bupropion Hcl Xl 300 Mg Tab.Er.24h) 300 mg PO DAILY [facility] Last Admin: 01/27/24 08:27 Dose: 300 mg Carvedilol (Carvedilol 6.25 Mg Tablet) 6.25 mg PO BID [facility]; Protocol Last Admin: 01/27/24 08:27 Dose: 6.25 mg Clonazepam (Clonazepam 0.125 Mg Tab.Rapdis) 0.25 mg PO TID [facility] Last Admin: 01/25/24 15:44 Dose: 0.25 mg Enoxaparin Sodium (Enoxaparin Sodium 40 Mg/0.4 Ml Syringe) 40 mg SUBCUT Q24H [facility] Last Admin: 01/26/24 20:27 Dose: 40 mg Fluticasone Propionate (Fluticasone Propionate 100 Mcg Blst.W.Dev) 1 puff INHALE RBID [facility] Last Admin: 01/27/24 07:24 Dose: 1 puff Gabapentin (Gabapentin 600 Mg Tablet) 600 mg PO TID [facility] Last Admin: 01/25/24 15:38 Dose: Not Given Glucose (Glucose Gel 15 Gm Gel..Gram.) 15 gm PO Q15M PRN; Protocol PRN Reason: per Hypoglycemia Standing Ord. Dextrose (D10) 250 mls @ 750 mls/hr IV Q15M PRN PRN Reason: per Hypoglycemia Standing Ord. Last Infusion: 01/20/24 18:44 Dose: Infused Meropenem 1 gm/ Sodium (Chloride) 100 mls @ 200 mls/hr IV Q12H [facility] Last Infusion: 01/27/24 11:55 Dose: Infused Insulin Glargine (Insulin Glargine,Hum.Rec.Anlog 100 Unit/Ml 10 Ml Vial) 15 unit SUBCUT DAILY [facility] Last Admin: 01/27/24 08:28 Dose: 15 unit Insulin Human Lispro (Insulin Lispro 100 Unit/Ml 3 Ml Vial) 0 unit SUBCUT QIDACHS [facility]; Protocol Last Admin: 01/27/24 11:23 Dose: 4 unit Lisinopril (Lisinopril 40 Mg Tablet) 40 mg PO DAILY [facility]; Protocol Last Admin: 01/27/24 08:26 Dose: 40 mg Methadone HCl (Methadone Hcl 20 Mg/2 Ml Oral.Conc) 10 mg PO Q4H PRN PRN Reason: Opiate Withdrawal Last Admin: 01/27/24 11:11 Dose: 10 mg Methylprednisolone Sodium Succinate (Methylprednisolone Sod Succ 40 Mg/Ml Vial) 40 mg IVPUSH DAILY [facility] Last Admin: 01/27/24 08:27 Dose: 40 mg Mirtazapine (Mirtazapine 7.5 Mg Tablet) 7.5 mg PO BEDTIME [facility] Last Admin: 01/24/24 20:51 Dose: 7.5 mg Naloxone HCl (Naloxone Hcl 0.4 Mg/Ml Vial) 0.2 mg IVPUSH Q2M PRN PRN Reason: Excessive sedation or RR < 8 Nicotine (Nicotine 14 Mg Patch.Td24) 14 mg TRANSDERMA DAILY [facility] Last Admin: 01/27/24 09:19 Dose: 14 mg Omeprazole (Omeprazole 20 Mg Capsule.Dr) 20 mg PO DAILY@0630 [facility] Last Admin: 01/27/24 06:34 Dose: 20 mg Ondansetron HCl (Ondansetron Hcl 4 Mg/2 Ml Vial) 4 mg IVPUSH Q8H PRN PRN Reason: Nausea and Vomiting Quetiapine Fumarate (Quetiapine Fumarate 50 Mg Tablet) 50 mg PO BID [facility] Last Admin: 01/25/24 09:42 Dose: Not Given Allergies Allergies Allergy/AdvReac Type Severity Reaction Status Date / Time No Known Allergies Allergy Verified 01/20/24 17:38 Assessment & Plan Assessment & Plan (1) Opioid use disorder: Status: Acute Code(s): F11.90 - Opioid use, unspecified, uncomplicated Assessment and Plan: * additional 10mg methadone ordered for 6pm (total of 30m today) * methadone 40mg in AM * will continue titrating dose as tolerated by patient Total time managing care of this patient today __40__ minutes.
--- NOTE | 2024-01-27 13:18 | MHC.CM.PN ---
Per rounds, pt is not ready to DC. DCP is STR at . Information has been sent to [place] and [facility] to arrange for pt to get Methadone from [facility] at rehab.
[2024-01-27] MEDS: ondansetron HCL 4 MG/2 ML VIAL IVPUSH (15:03)
[2024-01-27 15:14] LABS: Glucose, Whole Blood 202 mg/dL (60-115)
[2024-01-27 16:23] LABS: Glucose, Whole Blood 188 mg/dL (60-115)
--- NOTE | 2024-01-27 17:32 | P.PNIM_ITS ---
Subjective Subjective Date of Service: 01/27/24 Interval History: respiratory failure secondary to aspiration pneumonia/Klebsiella pneumoniae Review of Systems no sob mental status seems somewhat improving no fevers or cough Physical Exam 2 Vital Signs: Vital Signs: Last Vital Signs Temp 98.9 F 01/27/24 15:09 Pulse 70 01/27/24 15:09 Resp 18 01/27/24 15:09 BP 163/78 H 01/27/24 15:09 Pulse Ox 97 01/27/24 15:09 O2 Del Method Room Air 01/27/24 15:09 O2 Flow Rate 2 01/26/24 16:00 FiO2 40 01/22/24 16:00 BMI result Body Mass Index 24.1 Appearance: awake (aox2)? cvs: rrr, [id number] res: clear to auscultation ,no rhonchii or wheezing abd: no rebound or guarding ,nt, bs present. ext pulses present , no cyanosis . neuro: axo3 , nonfocal. Objective Data Active Medications Albuterol Sulfate (Albuterol Sulfate (0.083%) 2.5 Mg/3 Ml Vial.Neb) 2.5 mg INHALE Q3H PRN PRN Reason: wheezing Last Admin: 01/23/24 05:17 Dose: 2.5 mg Documented By: FRANDY Albuterol/Ipratropium (Albuterol/Iprat 2.5/0.5mg 3 Ml Ampul.Neb) 3 ml INHALE Q6H [facility] Last Admin: 01/27/24 11:12 Dose: 3 ml Documented By: FAHEEM Amlodipine Besylate (Amlodipine Besylate 10 Mg Tablet) 10 mg PO DAILY [facility]; Protocol Last Admin: 01/27/24 08:27 Dose: 10 mg Documented By: KELLY Aspirin (Aspirin Enteric Coated 81 Mg Tablet.) 81 mg PO DAILY [facility] Last Admin: 01/27/24 08:27 Dose: 81 mg Documented By: KELLY Atorvastatin Calcium (Atorvastatin Calcium 40 Mg Tablet) 40 mg PO DAILY [facility] Last Admin: 01/27/24 08:27 Dose: 40 mg Documented By: KELLY Bupropion HCl (Bupropion Hcl Xl 300 Mg Tab.Er.24h) 300 mg PO DAILY [facility] Last Admin: 01/27/24 08:27 Dose: 300 mg Documented By: KELLY Carvedilol (Carvedilol 6.25 Mg Tablet) 6.25 mg PO BID [facility]; Protocol Last Admin: 01/27/24 08:27 Dose: 6.25 mg Documented By: KELLY Clonazepam (Clonazepam 0.125 Mg Tab.Rapdis) 0.25 mg PO TID [facility] Last Admin: 01/25/24 15:44 Dose: 0.25 mg Documented By: ANA Enoxaparin Sodium (Enoxaparin Sodium 40 Mg/0.4 Ml Syringe) 40 mg SUBCUT Q24H [facility] Last Admin: 01/26/24 20:27 Dose: 40 mg Documented By: YODIT Fluticasone Propionate (Fluticasone Propionate 100 Mcg Blst.W.Dev) 1 puff INHALE RBID [facility] Last Admin: 01/27/24 07:24 Dose: 1 puff Documented By: HEATHER Gabapentin (Gabapentin 600 Mg Tablet) 600 mg PO TID [facility] Last Admin: 01/25/24 15:38 Dose: Not Given Documented By: ANA Non-Admin Reason: Physician Held Med Glucose (Glucose Gel 15 Gm Gel..Gram.) 15 gm PO Q15M PRN; Protocol PRN Reason: per Hypoglycemia Standing Ord. Dextrose (D10) 250 mls @ 750 mls/hr IV Q15M PRN PRN Reason: per Hypoglycemia Standing Ord. Last Infusion: 01/20/24 18:44 Dose: Infused Documented By: TANMAY Meropenem 1 gm/ Sodium (Chloride) 100 mls @ 200 mls/hr IV Q12H [facility] Last Infusion: 01/27/24 11:55 Dose: Infused Documented By: KELLY Insulin Glargine (Insulin Glargine,Hum.Rec.Anlog 100 Unit/Ml 10 Ml Vial) 15 unit SUBCUT DAILY [facility] Last Admin: 01/27/24 08:28 Dose: 15 unit Documented By: KELLY Insulin Human Lispro (Insulin Lispro 100 Unit/Ml 3 Ml Vial) 0 unit SUBCUT QIDACHS [facility]; Protocol Last Admin: 01/27/24 16:32 Dose: 2 unit Documented By: KELLY Lisinopril (Lisinopril 40 Mg Tablet) 40 mg PO DAILY [facility]; Protocol Last Admin: 01/27/24 08:26 Dose: 40 mg Documented By: KELLY Methadone HCl (Methadone Hcl 20 Mg/2 Ml Oral.Conc) 10 mg PO ONCE ONE Stop: 01/27/24 18:01 Methadone HCl (Methadone Hcl 20 Mg/2 Ml Oral.Conc) 40 mg PO DAILY [facility] Methylprednisolone Sodium Succinate (Methylprednisolone Sod Succ 40 Mg/Ml Vial) 40 mg IVPUSH DAILY [facility] Last Admin: 01/27/24 08:27 Dose: 40 mg Documented By: KELLY Mirtazapine (Mirtazapine 7.5 Mg Tablet) 7.5 mg PO BEDTIME [facility] Last Admin: 01/24/24 20:51 Dose: 7.5 mg Documented By: СВЕТЛАНА Naloxone HCl (Naloxone Hcl 0.4 Mg/Ml Vial) 0.2 mg IVPUSH Q2M PRN PRN Reason: Excessive sedation or RR < 8 Nicotine (Nicotine 14 Mg Patch.Td24) 14 mg TRANSDERMA DAILY [facility] Last Admin: 01/27/24 09:19 Dose: 14 mg Documented By: NASIMA Omeprazole (Omeprazole 20 Mg Capsule.Dr) 20 mg PO DAILY@0630 [facility] Last Admin: 01/27/24 06:34 Dose: 20 mg Documented By: YODIT Ondansetron HCl (Ondansetron Hcl 4 Mg/2 Ml Vial) 4 mg IVPUSH Q8H PRN PRN Reason: Nausea and Vomiting Last Admin: 01/27/24 15:03 Dose: 4 mg Documented By: KELLY Quetiapine Fumarate (Quetiapine Fumarate 50 Mg Tablet) 50 mg PO BID [facility] Last Admin: 01/25/24 09:42 Dose: Not Given Documented By: STEVAN Non-Admin Reason: hold per Labs 01/24/24 08:04 01/26/24 05:35 Labs: Laboratory Results - last 24 hr 01/26/24 01/27/24 01/27/24 20:16 07:21 11:22 POC Glucose 196 H 199 H 209 H 01/27/24 01/27/24 15:11 16:16 POC Glucose 202 H 188 H Assessment and Plan (1) COPD with acute exacerbation: Status: Acute (2) UTI (urinary tract infection): Status: Acute Assessment and Plan: Day 8: 64 year old women admitted by ICU secondary to drug overdose. She has a history of polysubstance abuse and recurrent episodes of hypoxic respiratory failure. She arrived to the ER via EMS unresponsive, hypoglycemic and hypoxic with oxygen saturation of 70%. Placed on non-rebreather mask. In the ER she was found to be hypothermic, hypoxic and tachypneic as well as very lethargic but arousable. She was then placed on high-flow due to oxygen saturation dropping to 68% and after doing well for a few hours she became more somnolent and hypoxic and was placed on CPAP. She was started on empiric IV antibiotics and x-ray showed worsening bilateral patchy infiltrates questioning pneumonitis. She continued to be hypoglycemic receiving D50 and IV fluids. She had some point was given IV Narcan with good effect but patient became more hypoxic and tachypneic and was transferred to the ICU for emergent intubation. Acute hypoxemic respiratory failure secondary to aspiration pneumonia and Klebsiella pneumoniae Likely secondary to drug intake/overdose Extubated 01/22/24. ICU stepdown 01/22 On 2 L nasal cannula, wean as tolerated per protocol Continue meropenem- intiated 01/22. acute Lethargy: improving suspect r/t multiple sedating medications at bedtime. Zolpidem 10mg initiated 2 days ago given in addition to klonipin, gabapentin, seroquel. Discontinue zolpidem. Sedating meds except scheduled benzos held . Monitor mentation and resume as appropriate ESBL Klebsiella UTI Continue meropenem Hypokalemia repleted and resolved. Hypomagnesemia repleted and resolved. AUBRIE secondary to ATN improved. Acute on chronic normocytic anemia above transfusion threshold ESBL Klebsiella UTI Continue meropenem Hypertension Stable blood pressure Continue amlodipine, lisinopril Diabetes mellitus type 2 Sliding scale, Lantus Mental health Continue home medications GERD PPI COPD Albuterol inhaler no exacerbation Peripheral arterial disease Continue aspirin and statin DVT prophylaxis with Lovenox Full code DISPO lives at home with family , however per son with whom she lives, patient with recurrent overdoses. Case management following, PT eval pending Requires ongoing inpt stay on iv meropenem for resistent uti/pneumonia and awaiting safe dispo/placement Quality Stroke Does the patient have a stroke diagnosis?: No VTE Prior VTE?: No VTE Risk Level:: Medical - moderate - high VTE Device Contraindication: N/A - Device Ordered VTE Drug Contraindication: N/A - Med Ordered
[2024-01-27 20:41] LABS: Glucose, Whole Blood 160 mg/dL (60-115)
[2024-01-27] MEDS: Enoxaparin Sodium 40 MG/0.4 ML SYRINGE SUBCUT (21:00)
[2024-01-28] VITALS (12 sets, daily range): BP systolic 103–172; BP diastolic 50–90; PULSE 61–76; RESP 16–20; TEMP 36–36.4; O2SAT 96–98
[2024-01-28] MEDS: Omeprazole 20 MG CAPSULE.DR PO (05:26)
--- NOTE | 2024-01-28 05:54 | PC.NURSE ---
No urine output this shift. Bladder scan revealed 312 ml of urine in bladder. Dr Pablo Mittal make aware.Per Dr, give patient some more time to void and encourage po fluids.Patient voiced no discomfort.
[2024-01-28 06:53] LABS: Glucose, Whole Blood 192 mg/dL (60-115)
[2024-01-28] MEDS: Fluticasone Propionate 100 MCG BLST.W.DEV 1 PUFF INHALE ×2 (07:36→19:23)
[2024-01-28] MEDS: Nicotine 14 MG PATCH.TD24 TRANSDERMA (09:08)
[2024-01-28] MEDS: Insulin Glargine,Hum.rec.anlog 100 UNIT/ML 10 ML VIAL 15 UNIT SUBCUT (09:10)
[2024-01-28] MEDS: methylPREDNISolone Sod Succ 40 MG/ML VIAL IVPUSH (09:10)
[2024-01-28] MEDS: Insulin Lispro 100 UNIT/ML 3 ML VIAL SUBCUT ×4 (09:11→22:25)
[2024-01-28] MEDS: lisinopriL 40 MG TABLET PO (09:11)
[2024-01-28] MEDS: buPROPion HCl XL 300 MG TAB.ER.24H PO (09:11)
[2024-01-28] MEDS: Atorvastatin Calcium 40 MG TABLET PO (09:12)
[2024-01-28] MEDS: carvediloL 6.25 MG TABLET PO ×2 (09:12→20:58)
[2024-01-28] MEDS: amLODIPine Besylate 10 MG TABLET PO (09:12)
[2024-01-28] MEDS: Aspirin Enteric Coated 81 MG TABLET.DR PO (09:12)
[2024-01-28] MEDS: ondansetron HCL 4 MG/2 ML VIAL IVPUSH (09:13)
[2024-01-28] MEDS: methADONE HCl 20 MG/2 ML ORAL.CONC 40 MG PO (09:13)
[2024-01-28 10:54] LABS: Glucose, Whole Blood 187 mg/dL (60-115)
--- NOTE | 2024-01-28 11:14 | P.PNADD_ITS ---
Subjective Subjective Date of Service: 01/28/24 Reason For Visit: hypoxic resp failure septic shock uti left lung PN Interim History: Patient seen in follow up methadone 40mg this morning patient denies any withdrawal sx --although she is reporting occasional nausea. overall reports she does not feel well and feels very tired and weak. Sleeping most of the day, but easily woken Has not eaten very much. No loose stools reported. No tremor, restlessness, rhinorrhea, yawning or piloerection noted No pain remoted Discussed current methadone dose is at 40mg. She seemed surprised by this and when asked if she wanted dose to be increased she said, yes, but not today Unclear if patient is fully understanding as she also stated that she had not had any methadone is 3 days --which is what she reported to me at first assessment earlier this week. Review of Systems Review of Systems Yes Unobtainable due to mental status Constitutional: Reports as per [facility] Mental Status Exam Mental Status Exam Patient Orientation: Person and Place Level of Consciousness: Awake and Lethargic Patient Behavior: Cooperative and Passive Diagnostics Vital Signs (24Hr): Vital Signs - 24 hr 01/27/24 15:09 01/27/24 18:55 01/27/24 20:00 Temperature 98.9 F 97.8 F Pulse Rate 70 70 66 Respiratory Rate 18 18 20 Blood Pressure 163/78 H 140/78 H Pulse Oximetry 97 99 Oxygen Delivery Method Room Air Room Air 01/27/24 21:01 01/27/24 23:42 01/28/24 04:00 Temperature 97.9 F 97.0 F Pulse Rate 66 58 65 Respiratory Rate 16 20 Blood Pressure 140/78 H 143/67 H 159/72 H Pulse Oximetry 99 98 Oxygen Delivery Method Room Air Room Air 01/28/24 07:21 01/28/24 07:38 01/28/24 09:11 Temperature 97.0 F Pulse Rate 75 75 Respiratory Rate 18 16 Blood Pressure 170/89 H 172/90 H Pulse Oximetry 98 Oxygen Delivery Method Room Air 01/28/24 09:12 01/28/24 09:12 01/28/24 11:08 Temperature 96.8 F Pulse Rate 76 70 Respiratory Rate 18 Blood Pressure 172/90 H 170/80 H Pulse Oximetry 97 Oxygen Delivery Method Room Air BMI result Body Mass Index 24.6 Labs 01/24/24 08:04 01/26/24 05:35 Labs: Laboratory Results - last 48 hr 01/26/24 01/26/24 01/27/24 16:14 20:16 07:21 POC Glucose 255 H 196 H 199 H 01/27/24 01/27/24 01/27/24 11:22 15:11 16:16 POC Glucose 209 H 202 H 188 H 01/27/24 01/28/24 01/28/24 20:32 06:49 10:50 POC Glucose 160 H 192 H 187 H Imaging Radiology Impressions: ITS Impressions Chest X-Ray 01/20/24 18:38 IMPRESSION: Worsened patchy bilateral airspace disease now more densely opacifying both lung bases. Infectious etiology would be suspected in the acute setting. Aspiration could have this appearance and should be clinically correlated. Chest X-Ray 01/21/24 01:25 IMPRESSION: 1. Lines and tubes in good position as described above. 2. Diffuse bilateral infiltrates are again seen, similar to the previous study. 3. No pneumothorax. Pulmonary Perfusion Imaging 01/21/24 08:50 IMPRESSION: Based on perfusion only modified PIOPED 2 criteria, PE is considered absent. Medications Medications Current Medications Amlodipine Besylate (Amlodipine Besylate 10 Mg Tablet) 10 mg PO DAILY [facility]; Protocol Last Admin: 01/28/24 09:12 Dose: 10 mg Aspirin (Aspirin Enteric Coated 81 Mg Tablet.Dr) 81 mg PO DAILY [facility] Last Admin: 01/28/24 09:12 Dose: 81 mg Atorvastatin Calcium (Atorvastatin Calcium 40 Mg Tablet) 40 mg PO DAILY [facility] Last Admin: 01/28/24 09:12 Dose: 40 mg Bupropion HCl (Bupropion Hcl Xl 300 Mg Tab.Er.24h) 300 mg PO DAILY [facility] Last Admin: 01/28/24 09:11 Dose: 300 mg Carvedilol (Carvedilol 6.25 Mg Tablet) 6.25 mg PO BID [facility]; Protocol Last Admin: 01/28/24 09:12 Dose: 6.25 mg Clonazepam (Clonazepam 0.125 Mg Tab.Rapdis) 0.25 mg PO TID [facility] Last Admin: 01/25/24 15:44 Dose: 0.25 mg Enoxaparin Sodium (Enoxaparin Sodium 40 Mg/0.4 Ml Syringe) 40 mg SUBCUT Q24H [facility] Last Admin: 01/27/24 21:00 Dose: 40 mg Fluticasone Propionate (Fluticasone Propionate 100 Mcg Blst.W.Dev) 1 puff INHALE RBID [facility] Last Admin: 01/28/24 07:36 Dose: 1 puff Gabapentin (Gabapentin 600 Mg Tablet) 600 mg PO TID [facility] Last Admin: 01/25/24 15:38 Dose: Not Given Glucose (Glucose Gel 15 Gm Gel..Gram.) 15 gm PO Q15M PRN; Protocol PRN Reason: per Hypoglycemia Standing Ord. Dextrose (D10) 250 mls @ 750 mls/hr IV Q15M PRN PRN Reason: per Hypoglycemia Standing Ord. Last Infusion: 01/20/24 18:44 Dose: Infused Meropenem 1 gm/ Sodium (Chloride) 100 mls @ 200 mls/hr IV Q12H [facility] Last Infusion: 01/28/24 10:16 Dose: Infused Insulin Glargine (Insulin Glargine,Hum.Rec.Anlog 100 Unit/Ml 10 Ml Vial) 15 unit SUBCUT DAILY [facility] Last Admin: 01/28/24 09:10 Dose: 15 unit Insulin Human Lispro (Insulin Lispro 100 Unit/Ml 3 Ml Vial) 0 unit SUBCUT QIDACHS [facility]; Protocol Last Admin: 01/28/24 09:11 Dose: 2 unit Lisinopril (Lisinopril 40 Mg Tablet) 40 mg PO DAILY [facility]; Protocol Last Admin: 01/28/24 09:11 Dose: 40 mg Methadone HCl (Methadone Hcl 20 Mg/2 Ml Oral.Conc) 40 mg PO DAILY [facility] Last Admin: 01/28/24 09:13 Dose: 40 mg Methylprednisolone Sodium Succinate (Methylprednisolone Sod Succ 40 Mg/Ml Vial) 40 mg IVPUSH DAILY [facility] Last Admin: 01/28/24 09:10 Dose: 40 mg Mirtazapine (Mirtazapine 7.5 Mg Tablet) 7.5 mg PO BEDTIME [facility] Last Admin: 01/24/24 20:51 Dose: 7.5 mg Naloxone HCl (Naloxone Hcl 0.4 Mg/Ml Vial) 0.2 mg IVPUSH Q2M PRN PRN Reason: Excessive sedation or RR < 8 Nicotine (Nicotine 14 Mg Patch.Td24) 14 mg TRANSDERMA DAILY [facility] Last Admin: 01/28/24 09:08 Dose: 14 mg Omeprazole (Omeprazole 20 Mg Capsule.Dr) 20 mg PO DAILY@0630 [facility] Last Admin: 01/28/24 05:26 Dose: 20 mg Ondansetron HCl (Ondansetron Hcl 4 Mg/2 Ml Vial) 4 mg IVPUSH Q8H PRN PRN Reason: Nausea and Vomiting Last Admin: 01/28/24 09:13 Dose: 4 mg Quetiapine Fumarate (Quetiapine Fumarate 50 Mg Tablet) 50 mg PO BID [facility] Last Admin: 01/25/24 09:42 Dose: Not Given Allergies Allergies Allergy/AdvReac Type Severity Reaction Status Date / Time No Known Allergies Allergy Verified 01/20/24 17:38 Assessment & Plan Assessment & Plan (1) Opioid use disorder: Status: Acute Code(s): F11.90 - Opioid use, unspecified, uncomplicated Assessment and Plan: * continue methadone 40mg * will add 10mg PRN daily dose should patient report any withdrawal sx * encourage patient to eat or drink Total time managing care of this patient today __45__ minutes.
[2024-01-28] MEDS: Tamsulosin HCL 0.4 MG CAPSULE PO ×2 (13:25→20:58)
--- NOTE | 2024-01-28 13:42 | MHC.CM.PN ---
CM contacted [facility] and [facility] to determine if pt can be DC on Thu or Thu if medically cleared. [facility] will accept pt., call into [facility] to see if they will be able to have guest dosing set up, or if DC will have to be Thursday.
[2024-01-28] MEDS: hydrALAZINE HCl 10 MG TABLET PO (15:20)
--- NOTE | 2024-01-28 15:36 | HO.PM.IMPN ---
Subjective Subjective Date of Service: 01/28/24 Interval History: htn ,urinary retention Review of Systems mental status improving no fever or chills Physical Exam Vital Signs: Vital Signs: Last Vital Signs Temp 96.8 F 01/28/24 11:08 Pulse 70 01/28/24 11:08 Resp 18 01/28/24 11:08 BP 160/74 H 01/28/24 14:27 Pulse Ox 97 01/28/24 11:08 O2 Del Method Room Air 01/28/24 11:08 O2 Flow Rate 2 01/26/24 16:00 FiO2 40 01/22/24 16:00 BMI result Body Mass Index 24.6 Appearance: awake (aox2)? cvs: rrr, [id number] res: clear to auscultation ,no rhonchii or wheezing abd: no rebound or guarding ,nt, bs present. ext pulses present , no cyanosis . neuro: axo3 , nonfocal. Objective Data Active Medications Aspirin (Aspirin Enteric Coated 81 Mg Tablet.) 81 mg PO DAILY [facility] Last Admin: 01/28/24 09:12 Dose: 81 mg Documented By: JOHN Atorvastatin Calcium (Atorvastatin Calcium 40 Mg Tablet) 40 mg PO DAILY [facility] Last Admin: 01/28/24 09:12 Dose: 40 mg Documented By: JOHN Bupropion HCl (Bupropion Hcl Xl 300 Mg Tab.Er.24h) 300 mg PO DAILY [facility] Last Admin: 01/28/24 09:11 Dose: 300 mg Documented By: JOHN Carvedilol (Carvedilol 6.25 Mg Tablet) 6.25 mg PO BID [facility]; Protocol Last Admin: 01/28/24 09:12 Dose: 6.25 mg Documented By: JOHN Enoxaparin Sodium (Enoxaparin Sodium 40 Mg/0.4 Ml Syringe) 40 mg SUBCUT Q24H [facility] Last Admin: 01/27/24 21:00 Dose: 40 mg Documented By: YODIT Fluticasone Propionate (Fluticasone Propionate 100 Mcg Blst.W.Dev) 1 puff INHALE RBID [facility] Last Admin: 01/28/24 07:36 Dose: 1 puff Documented By: FAHEEM Gabapentin (Gabapentin 600 Mg Tablet) 600 mg PO TID [facility] Last Admin: 01/25/24 15:38 Dose: Not Given Documented By: ANA Non-Admin Reason: Physician Held Med Glucose (Glucose Gel 15 Gm Gel..Gram.) 15 gm PO Q15M PRN; Protocol PRN Reason: per Hypoglycemia Standing Ord. Dextrose (D10) 250 mls @ 750 mls/hr IV Q15M PRN PRN Reason: per Hypoglycemia Standing Ord. Last Infusion: 01/20/24 18:44 Dose: Infused Documented By: TANMAY Meropenem 1 gm/ Sodium (Chloride) 100 mls @ 200 mls/hr IV Q12H [facility] Last Infusion: 01/28/24 10:16 Dose: Infused Documented By: JOHN Insulin Glargine (Insulin Glargine,Hum.Rec.Anlog 100 Unit/Ml 10 Ml Vial) 15 unit SUBCUT DAILY [facility] Last Admin: 01/28/24 09:10 Dose: 15 unit Documented By: JOHN Insulin Human Lispro (Insulin Lispro 100 Unit/Ml 3 Ml Vial) 0 unit SUBCUT QIDACHS [facility]; Protocol Last Admin: 01/28/24 12:35 Dose: 2 unit Documented By: JOHN Lisinopril (Lisinopril 40 Mg Tablet) 40 mg PO DAILY [facility]; Protocol Last Admin: 01/28/24 09:11 Dose: 40 mg Documented By: JOHN Methadone HCl (Methadone Hcl 20 Mg/2 Ml Oral.Conc) 40 mg PO DAILY [facility] Last Admin: 01/28/24 09:13 Dose: 40 mg Documented By: JOHN Mirtazapine (Mirtazapine 7.5 Mg Tablet) 7.5 mg PO BEDTIME [facility] Last Admin: 01/24/24 20:51 Dose: 7.5 mg Documented By: СВЕТЛАНА Naloxone HCl (Naloxone Hcl 0.4 Mg/Ml Vial) 0.2 mg IVPUSH Q2M PRN PRN Reason: Excessive sedation or RR < 8 Nicotine (Nicotine 14 Mg Patch.Td24) 14 mg TRANSDERMA DAILY [facility] Last Admin: 01/28/24 09:08 Dose: 14 mg Documented By: JOHN Nifedipine (Nifedipine Er 60 Mg Tab.Er.24) 60 mg PO DAILY [facility]; Protocol Omeprazole (Omeprazole 20 Mg Capsule.Dr) 20 mg PO DAILY@0630 [facility] Last Admin: 01/28/24 05:26 Dose: 20 mg Documented By: YODIT Ondansetron HCl (Ondansetron Hcl 4 Mg/2 Ml Vial) 4 mg IVPUSH Q8H PRN PRN Reason: Nausea and Vomiting Last Admin: 01/28/24 09:13 Dose: 4 mg Documented By: JOHN Prednisone (Prednisone 10 Mg Tablet) 30 mg PO DAILY [facility] Quetiapine Fumarate (Quetiapine Fumarate 50 Mg Tablet) 50 mg PO BID [facility] Last Admin: 01/25/24 09:42 Dose: Not Given Documented By: STEVAN Non-Admin Reason: hold per md Tamsulosin HCl (Tamsulosin Hcl 0.4 Mg Capsule) 0.4 mg PO BEDTIME [facility] Labs 01/24/24 08:04 01/26/24 05:35 Labs: Laboratory Results - last 24 hr 01/27/24 01/27/24 01/28/24 16:16 20:32 06:49 POC Glucose 188 H 160 H 192 H 01/28/24 10:50 POC Glucose 187 H Assessment and Plan (1) COPD with acute exacerbation: Status: Acute (2) UTI (urinary tract infection): Status: Acute Assessment and Plan: Day 9: 64 year old women admitted by ICU secondary to drug overdose. She has a history of polysubstance abuse and recurrent episodes of hypoxic respiratory failure. She arrived to the ER via EMS unresponsive, hypoglycemic and hypoxic with oxygen saturation of 70%. Placed on non-rebreather mask. In the ER she was found to be hypothermic, hypoxic and tachypneic as well as very lethargic but arousable. She was then placed on high-flow due to oxygen saturation dropping to 68% and after doing well for a few hours she became more somnolent and hypoxic and was placed on CPAP. She was started on empiric IV antibiotics and x-ray showed worsening bilateral patchy infiltrates questioning pneumonitis. She continued to be hypoglycemic receiving D50 and IV fluids. She had some point was given IV Narcan with good effect but patient became more hypoxic and tachypneic and was transferred to the ICU for emergent intubation. Acute hypoxemic respiratory failure secondary to aspiration pneumonia and Klebsiella pneumoniae Likely secondary to drug intake/overdose Extubated 01/22/24. ICU stepdown 01/22 On 2 L nasal cannula, wean as tolerated per protocol Continue meropenem- intiated 01/22. acute Lethargy: improved with adjustment of seadtive meds, suspect r/t multiple sedating medications at bedtime. Zolpidem 10mg initiated 2 days ago given in addition to klonipin, gabapentin, seroquel. Discontinue zolpidem. Sedating meds except scheduled benzos held . Monitor mentation and resume as appropriate. ESBL Klebsiella UTI Continue meropenem Hypokalemia repleted and resolved. Hypomagnesemia repleted and resolved. AUBRIE secondary to ATN improved. Acute on chronic normocytic anemia above transfusion threshold ESBL Klebsiella UTI Continue meropenem Hypertension Stable blood pressure Continue amlodipine, lisinopril Diabetes mellitus type 2 Sliding scale, [facility] Continue home medications GERD PPI COPD Albuterol inhaler no exacerbation Peripheral arterial disease Continue aspirin and statin DVT prophylaxis with Lovenox Full code DISPO lives at home with family , however per son with whom she lives, patient with recurrent overdoses. Case management following, PT eval pending Requires ongoing inpt stay on iv meropenem for resistent uti/pneumonia and awaiting safe dispo/placement Quality Stroke Does the patient have a stroke diagnosis?: No VTE Prior VTE?: No VTE Risk Level:: Medical - moderate - high VTE Device Contraindication: N/A - Device Ordered VTE Drug Contraindication: N/A - Med Ordered
[2024-01-28 15:40] LABS: Glucose, Whole Blood 183 mg/dL (60-115)
[2024-01-28 20:13] LABS: Glucose, Whole Blood 179 mg/dL (60-115)
[2024-01-28] MEDS: Enoxaparin Sodium 40 MG/0.4 ML SYRINGE SUBCUT (20:57)
[2024-01-29 04:00] VITALS: BP 133/69; PULSE 71; RESP 18; TEMP 35.8; O2SAT 99
[2024-01-29] MEDS: Omeprazole 20 MG CAPSULE.DR PO (05:31)
--- NOTE | 2024-01-29 06:03 | PC.NURSE ---
Incontinent x1 large amt of urine this shift. Bladder scan reveal 294 at 0600. Change in cardiac rhythm from NSR with pvc's to junctional rhythm with occasional pvs's. Dr Shah make aware. No symptoms at this time.
[2024-01-29 07:40] LABS: Glucose, Whole Blood 203 mg/dL (60-115)
[2024-01-29 07:43] VITALS: BP 129/63; PULSE 77; RESP 18; TEMP 36.3; O2SAT 94
[2024-01-29 07:48] VITALS: PULSE 76; RESP 14; O2SAT 93
[2024-01-29] MEDS: Fluticasone Propionate 100 MCG BLST.W.DEV 1 PUFF INHALE (07:48)
[2024-01-29] MEDS: carvediloL 6.25 MG TABLET PO (08:44)
[2024-01-29] MEDS: methADONE HCl 20 MG/2 ML ORAL.CONC 40 MG PO (08:44)
[2024-01-29] MEDS: Insulin Lispro 100 UNIT/ML 3 ML VIAL SUBCUT ×2 (08:44→12:30)
[2024-01-29] MEDS: predniSONE 10 MG TABLET 30 MG PO (08:44)
[2024-01-29] MEDS: Insulin Glargine,Hum.rec.anlog 100 UNIT/ML 10 ML VIAL 15 UNIT SUBCUT (08:44)
[2024-01-29] MEDS: Aspirin Enteric Coated 81 MG TABLET.DR PO (08:45)
[2024-01-29] MEDS: buPROPion HCl XL 300 MG TAB.ER.24H PO (08:45)
[2024-01-29] MEDS: Nicotine 14 MG PATCH.TD24 TRANSDERMA (08:45)
[2024-01-29] MEDS: lisinopriL 40 MG TABLET PO (08:45)
[2024-01-29] MEDS: Atorvastatin Calcium 40 MG TABLET PO (08:45)
[2024-01-29] MEDS: amLODIPine Besylate 5 MG TABLET PO (08:45)
[2024-01-29 11:28] VITALS: BP 114/60; PULSE 62; RESP 18; TEMP 36.2; O2SAT 94
[2024-01-29 11:41] LABS: Glucose, Whole Blood 196 mg/dL (60-115)
--- NOTE | 2024-01-29 11:53 | P.DS_ITS ---
DS: Providers Provider Date of Service: 01/29/24 Date of admission: 01/20/24 23:44 Date of discharge: 01/29/24 Primary care physician: Kevon Herring MD Consults: 01/21/24 08:26 Consult to Wound Care Routine Reason for consultation: Right ischium blanchable redness, maceration to td area 01/26/24 08:54 Consult to Infectious Diseases Routine Consulting Provider: [facility] Reason for consultation: ahrf with kleb pneumonia ,uti Has provider been notified: No 01/26/24 08:59 Addiction Medicine Routine Consulting Provider: Addiction Covering Reason for consultation: on methdone Has provider been notified: No 01/28/24 08:45 Consult to Wound Care Routine Reason for consultation: wound care Attending physician on discharge: Dulce Chaudhari Discharging clinician: Dulce Chaudhari DS: Diagnosis Discharge Diagnosis (1) Opioid use disorder: Status: Acute DS: Summary Hospital Course Hospital Course: 64-year-old female well known to this facility who has underlying history of polysubstance abuse, recurrent episodes of hypoxic respiratory failure,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 Patient had come to the emergency room via EMS, no family members had arrived after. Patient was recently seen in the emergency room 3 days ago and prescribed Augmentin. ?Patient was reported to be unresponsive and having low blood sugar however intervention by EMS included IV dextrose causing her blood sugar to be 160 upon arrival to the ER.? She had been hypoxic with an O2 sat of 70% and placed on a non-rebreather mask.? Per reports the patient may have had a mistaken dose administration of insulin. While in the ER, patient had been found to be hypothermic, hypoxic and tachypneic.? She had been sleepy but arousable and no Narcan had been administered even though the patient does have a history of opiate abuse.? Several cc of thick green sputum had been suctioned during ER visit.? Her workup is significant for temperature 95.6 degrees insight and 68% non-rebreather mask, subsequently placed on high-flow nasal cannula bring in her O2 sat to 92%.? According to the physician office manager executive assistant from the ER the patient had been doing well for several hours however later on she became more somnolent and hypoxic to the point that she would not be able to sat greater than 75 or 80% despite of high- flow administration therefore the patient was tried on CPAP; venous blood gas did not show any hypercapnia.? Patient received 1 L of IV fluid, Zosyn given that her x-ray showed worsening bilateral patchy infiltrates questionable pneumonitis.? She did have recurrent hypoglycemia down to 59 and another amp of D50 had been given.? After given her her 1 L of IV fluid the patient became more wheezy and they were concerned that she went into fluid overload therefore Lasix was administered the patient was placed on BiPAP. Upon arrival to the emergency room, patient was hard to arouse, responded to painful stimuli only, on BiPAP with 60% FiO2 satting only 80%, pupils are pinpointed, I requested Narcan 4 mg IV push to be given with significantly good effect as the patient right away to open her eyes, young and became alert but at the same time agitated, more hypoxic and tachypneic. ?It is clear to me that the patient has significant respiratory distress, suffering from an overdose and also underlying infections therefore I think the best course is to transfer to the ICU for emergent intubation. Hospital course: 64 year old women admitted by ICU secondary to drug overdose. She has a history of polysubstance abuse and recurrent episodes of hypoxic respiratory failure: Patient was started on IV antibiotics, x-ray shoulder initially bilateral patchy infiltrate, blood culture, sputum cultures, urine culture was sent. Acute hypoxemic respiratory failure secondary to aspiration pneumonia/Klebsiella pneumoniae secondary to drug overdose, intubated in ICU and subsequently extubated on January 21: Patient was started on IV antibiotics: Subsequently blood culture negative, sputum culture and urine culture both growing ESBL Klebsiella: Patient was placed on meropenem, currently patient is improved significantly so will change patient to ertapenem upon discharge 8more days patient already received almost 7 days of IV meropenem. will place midline for 8 more days antibiotics.. Hypokalemia and hypomagnesemia repleted and resolved. Monitor BMP and electrolyte outpatient. In addition patient had episode of toxic metabolic encephalopathy so that is lethargy probably related to sedating medications, electrolytic abnormalities: Patient zolpidem and Klonopin discontinued also benzo was placed on hold. Hi her mental status seems to be improved significantly now at baseline. Electrolytes are repleted and improved. AUBRIE: Possibly related to underlying multiple medical issues as above, patient is eating better and hydrating well seems to be resolved AUBRIE norris. Mental health: Continue medications as adjusted above, consider outpatient psych evaluation for further management if needed. Currently patient seems better with above medication adjustment, monitor for any sedation. Polysubstance use: Patient is on methadone: Addiction Team had adjusted methadone as above-please see discharge meds instructions. Mild urinary retention: Tolerating with PVR and straight cath, added Flomax. Monitor PVR in rehab if needed consider outpatient urology evaluation. wound care :right bka site: Turn and Reposition every 2 hours and as needed for patient comfort.? Use pillows or wedges to support off loading positions. Off Load all bony prominences with use of pillows and heel boots if needed.? Apply Preventative foams where needed. ? Monitor for incontinence and moisture control, use barrier creams when needed for prevention and treatment. Provide adequate and supplemental nutrition.? When applicable maintain blood glucose levels per Providers order. Right BKA site - Cleanse with NS moist gauze, pat dry. Apply Skin prep to periwound allow to dry cut to size Durafiber AG cover with foam dressing, Change every 2-3 day Patient will be going to rehab. Plan: complete ertapenem 1 g daily IV for 8 days . Monitor BMP, magnesium level in 1 week. Consider outpatient follow-up with psych and Addiction for above-mentioned issues. Above management discussed with the patient in detail length, assessment and plan time spent 40 minute. Patient will benefit from less than 30 day stay. Time Attestation Total time managing care of this patient today: 40 mintues. Discharge Coordination Time (in mins): 40 minute Quality: Safe Use of Opioids Does Pt have an Active Cancer Diagnosis on the Problem List?: No Quality: Stroke Does the patient have a stroke diagnosis?: No Physical Exam Vital Signs: Vital Signs: Last Vital Signs Temp 97.2 F 01/29/24 11:28 Pulse 62 01/29/24 11:28 Resp 18 01/29/24 11:28 BP 114/60 01/29/24 11:28 Pulse Ox 94 01/29/24 11:28 O2 Del Method Room Air 01/29/24 11:28 O2 Flow Rate 2 01/26/24 16:00 FiO2 40 01/22/24 16:00 BMI result Body Mass Index 24.6 Appearance: awake (aox3)? cvs: rrr, [id number] res: clear to auscultation ,no rhonchii or wheezing abd: no rebound or guarding ,nt, bs present. ext ,has right bka. neuro: axo3 , nonfocal. DS: Data Data Completed and Pending Completed studies during hospitalization [Text1]: Procedures Compression of Right Foot using Pressure Dressing (05/28/20) Detachment at Right Lower Leg, Mid, Open Approach (01/11/22) Excision of Left Shoulder Joint, Open Approach (10/14/23) Insertion of Infusion Device into Superior Vena Cava, Percutaneous Approach (10/14/23) Introduction of Vasopressor into Peripheral Vein, Percutaneous Approach (01/12/24) Transfusion of Nonautologous Red Blood Cells into Peripheral Vein, Percutaneous Approach (01/12/24) Ultrasonography of Superior Vena Cava, Guidance (10/14/23) Labs on day of discharge: Laboratory Results - last 24 hr 01/28/24 01/28/24 01/29/24 15:27 20:03 07:36 POC Glucose 183 H 179 H 203 H 01/29/24 11:38 POC Glucose 196 H Imaging Chest x-ray: Radiologist's impression: ITS Impressions Chest X-Ray 01/20/24 18:38 IMPRESSION: Worsened patchy bilateral airspace disease now more densely opacifying both lung bases. Infectious etiology would be suspected in the acute setting. Aspiration could have this appearance and should be clinically correlated. Chest X-Ray 01/21/24 01:25 IMPRESSION: 1. Lines and tubes in good position as described above. 2. Diffuse bilateral infiltrates are again seen, similar to the previous study. 3. No pneumothorax. Pulmonary Perfusion Imaging 01/21/24 08:50 IMPRESSION: Based on perfusion only modified PIOPED 2 criteria, PE is considered absent. Discharge Plan Discharge Anticipated Discharge Date/Time: 01/29/24 11:34 Patient Disposition: Xfer SNF Discharge Diagnosis: Acute hypoxemic respiratory failure secondary to aspiration pneumonia and Klebsiella pneumoniae Referrals: [facility] [Outside] - 1 Week Kevon Herring MD [Primary Care Provider] - 1 Week Discharge Medications: New ertapenem 1 gram recon soln 1 g IV DAILY Qty: 8 0RF carvedilol 6.25 mg Tablet 6.25 mg PO BID Qty: 1 0RF Protocol: Hold for SBP/HR < HOLD for SBP < : 90 HOLD for HR < : 60 methadone [Methadose] 10 mg/mL Concentrate 10 mg PO DAILY PRN (Reason: Opiate Withdrawal) Qty: 1 0RF Rx Instructions: Partial Fill upon patient request. methadone [Methadose] 10 mg/mL Concentrate 40 mg PO DAILY Qty: 1 0RF Rx Instructions: Partial Fill upon patient request. prednisone 10 mg Tablet 30 mg PO DAILY Qty: 3 0RF docusate sodium [Colace] 100 mg capsule 100 mg PO DAILY Qty: 30 0RF polyethylene glycol 3350 [Miralax] 17 gram/dose powder 17 g PO DAILY PRN (Reason: constipation) Qty: 119 0RF tamsulosin 0.4 mg Capsule 0.4 mg PO BEDTIME Qty: 30 0RF Continued (DME) walker Misc See Rx Instructions .ROUTE .MEDSUPPLY Qty: 1 0RF Rx Instructions: As directed ondansetron 4 mg tablet,disintegrating 4 mg PO TID PRN (Reason: nausea and vomiting) 5 Days Qty: 10 0RF lisinopril 40 mg tablet 40 mg PO DAILY Qty: 90 0RF Hold Instructions: hold until follow up with nephrology mirtazapine 7.5 mg tablet 7.5 mg PO BEDTIME Fiasp U-100 Insulin 100 unit/mL solution 0 sliding scale dose subcut USEASDIRECTD Arnuity Ellipta 100 mcg/actuation blister with device 1 inh inhalation DAILY nicotine 14 mg/24 hr Patch 24 Hour 14 mg transdermal DAILY Qty: 30 0RF insulin degludec [Tresiba FlexTouch U-100] 100 unit/mL (3 mL) insulin pen 15 unit subcut BEDTIME Qty: 15 0RF gabapentin 600 mg tablet 600 mg PO TID (DME) lancets 33 gauge misc See Rx Instructions Not Applicable TID Qty: 100 Rx Instructions: As directed albuterol sulfate 90 mcg/actuation HFA aerosol inhaler 2 puff PO Q4H PRN (Reason: Respiratory Distress) omeprazole 20 mg capsule,delayed release(DR/EC) 20 mg PO DAILY@0630 metformin 1,000 mg tablet 1,000 mg PO BIDWM Hold Instructions: hold until follow up labs done outpatient. discuss with PCP if renal function ok to continue aspirin 81 mg tablet,delayed release (DR/EC) 81 mg PO DAILY bupropion HCl 150 mg tablet sustained-release 12 hr 150 mg PO BID atorvastatin 40 mg tablet 40 mg PO DAILY acetaminophen 325 mg capsule 325 mg PO QID PRN (Reason: Pain) Changed amlodipine 10 mg tablet 5 mg PO DAILY Qty: 90 0RF Discontinued metoprolol succinate 25 mg tablet extended release 24 hr 25 mg PO DAILY zolpidem 10 mg tablet 10 mg PO BEDTIME PRN (Reason: Sleep) methadone 10 mg/mL Concentrate 130 mg PO DAILY amoxicillin-pot clavulanate 875-125 mg tablet 1 tab PO BID 4 Days Qty: 8 0RF Discharge Orders: Discharge Order (Routine); Ordered 01/29/24 Ordered By: Dulce Chaudhari Diet: Advance to usual diet Activity on Discharge: As tolerated Stand Alone Forms: Patient Portal Discharge page Print Language: Afghan Care Plan Goals: 64 year old women admitted by ICU secondary to drug overdose. She has a history of polysubstance abuse and recurrent episodes of hypoxic respiratory failure: Patient was started on IV antibiotics, x-ray shoulder initially bilateral patchy infiltrate, blood culture, sputum cultures, urine culture was sent. Acute hypoxemic respiratory failure secondary to aspiration pneumonia/Klebsiella pneumoniae secondary to drug overdose, intubated in ICU and subsequently extubated on January 21: Patient was started on IV antibiotics: Subsequently blood culture negative, sputum culture and urine culture both growing ESBL Klebsiella: Patient was placed on meropenem, currently patient is improved significantly so will change patient to ertapenem upon discharge 7 more days patient already received almost 7 days of IV meropenem. will place midline for 8 more days antibiotics.. Hypokalemia and hypomagnesemia repleted and resolved. Monitor BMP and electrolyte outpatient. In addition patient had episode of toxic metabolic encephalopathy so that is lethargy probably related to sedating medications: Patient zolpidem and Klonopin discontinued also benzo was placed on hold. Hi her mental status seems to be improved significantly now at baseline. AUBRIE: Possibly related to underlying multiple medical issues as above, patient is eating better and hydrating well seems to be resolved AUBRIE norris. Mental health: Continue medications as adjusted above, consider outpatient psych evaluation for further management if needed. Currently patient seems better with above medication adjustment, monitor for any sedation. Polysubstance use: Patient is on methadone: Addiction Team had adjusted methadone as above-please see discharge meds instructions. Mild urinary retention: Tolerating with PVR and straight cath, added Flomax. Monitor PVR in rehab if needed consider outpatient urology evaluation. Health Concerns: As above. Plan of Treatment: As above. Assessment: As above.
--- NOTE | 2024-01-29 14:32 | MHC.CM.PN ---
Pt has been medically cleared for DC, she will go today to [facility] via BLS, Second IMM 01/29/24.
--- NOTE | 2024-01-29 14:55 | HO.MIDLINE_ITS ---
Midline Insertion MIDLINE INSERTION Diagnosis: open wound Indication: IV antibiotics needed Pertinent Labs: reviewed Technique: Using sterile technique including cap and mask, glove and drape, the right arm was prepped and draped in the usual sterile fashion of full barrier technique with CHG. Using ultrasound guidance, right basilic vein access was obtained on second attempt. 20G X 8 CM non-PASV Midline was positioned. The procedure was performed in S272. Ultrasound was used to document vein patency and for needle entry. A formal ultrasound picture was recorded. Vascular Edge Cutting Machine Operator has released the line for use and it is currently dressed with a StatLock, Tegaderm, and CHG disc. Verification has been performed for blood return and line patency. Arm Circumference: 24.5 CM Equipment: BARD PowerGlide ST Midline catheter Catheter Type: 20G x 8 CM non-PASV Midline Lot #: [id number]
[2024-01-29] MEDS: Heparin Sodium,Porcine Flush 50 UNITS, 0.9 % Sodium Chloride Flush 5 ML IVFLUSH (15:36)
[2024-01-29 16:00] VITALS: BP 121/60; PULSE 59; RESP 18; TEMP 36; O2SAT 98
[2024-01-29 17:03] LABS: Glucose, Whole Blood 208 mg/dL (60-115)
== END 2024-01-29 18:07 | disposition skilled nursing facility (03) | DRG 917 ==
LOC: HO.ED 22:57 → HO.EDOVER 01-21 00:11 → HO.ICU 01-21 00:12 → HO.IMC 01-23 14:32
PROVIDERS: Internal Medicine Critical Care Medicine; Nurse Practitioner Acute Care; Physician Assistant; Admitting Provider Physician Assistant Medical; Emergency Provider Internal Medicine; PCP Internal Medicine; Visit Provider Internal Medicine
DX: T40.2X1A Poisoning by other opioids, accidental (unintentional), initial encounter (principal); A41.9 Sepsis, unspecified organism; J96.21 Acute and chronic respiratory failure with hypoxia; N17.0 Acute kidney failure with tubular necrosis; J69.0 Pneumonitis due to inhalation of food and vomit; G92.8 Other toxic encephalopathy; R57.0 Cardiogenic shock; F11.20 Opioid dependence, uncomplicated; J44.1 Chronic obstructive pulmonary disease with (acute) exacerbation; E46 Unspecified protein-calorie malnutrition; Z16.12 Extended spectrum beta lactamase (ESBL) resistance; N39.0 Urinary tract infection, site not specified; F19.10 Other psychoactive substance abuse, uncomplicated; E87.6 Hypokalemia; E83.42 Hypomagnesemia; Z68.24 Body mass index [BMI] 24.0-24.9, adult; B96.1 Klebsiella pneumoniae [K. pneumoniae] as the cause of diseases classified elsewhere; D64.9 Anemia, unspecified; K21.9 Gastro-esophageal reflux disease without esophagitis; E11.51 Type 2 diabetes mellitus with diabetic peripheral angiopathy without gangrene; E11.649 Type 2 diabetes mellitus with hypoglycemia without coma; Z20.822 Contact with and (suspected) exposure to COVID-19; Z89.511 Acquired absence of right leg below knee; Z79.4 Long term (current) use of insulin; Z79.82 Long term (current) use of aspirin; Z79.899 Other long term (current) drug therapy
CPT/HCPCS: 0241U; 36410; 36415; 71045; 78580; 80048; 80053; 80202; 80307; 81001; 82803; 82947; 83605; 83690; 83735; 83880; 84484; 85007; 85025; 85027; 85610; 87040; 87070; 87077; 87086; 87088; 87186; 87205; 87640; 87641; 92610; 93005; 94002; 94003; 94640; 94799; 97162; 97530; 99285; A9540; C1758; J1642; J1650; J1940; J2060; J2185; J2310; J2405; J2470; J2543; J2704; J2765; J2919; J3010; J3370; J3371; J3475; J3480; J7120; P9047

== ENCOUNTER → 2024-01-20 17:11 | Outpatient (BNV) | payer MEDICARE, MEDICAID, SELFPAY | PROVIDERS: Admitting Provider Physician Assistant Medical; Emergency Provider Internal Medicine; PCP Internal Medicine; Visit Provider Internal Medicine Cardiovascular Disease | DX: R94.31 Abnormal electrocardiogram [ECG] [EKG] (principal) | CPT/HCPCS: 93010 ==

== ENCOUNTER 2024-01-20 23:44 | Outpatient (BNV) | payer MEDICARE, MEDICAID, SELFPAY | END 2024-01-23 10:10 | PROVIDERS: Admitting Provider Physician Assistant Medical; Emergency Provider Internal Medicine; PCP Internal Medicine; Visit Provider Internal Medicine Cardiovascular Disease | DX: R94.31 Abnormal electrocardiogram [ECG] [EKG] (principal) | CPT/HCPCS: 93010 ==

== ENCOUNTER → 2024-01-20 23:44 | Outpatient (BNV) | payer MEDICARE, MEDICAID, SELFPAY | PROVIDERS: Admitting Provider Physician Assistant Medical; Emergency Provider Internal Medicine; PCP Internal Medicine; Visit Provider Nurse Practitioner Acute Care | DX: F11.90 Opioid use, unspecified, uncomplicated (principal) | CPT/HCPCS: 99231; 99232; 99239; 99499 ==

== ENCOUNTER → 2024-01-20 23:44 | Outpatient (BNV) | payer MEDICARE, MEDICAID, SELFPAY | PROVIDERS: Admitting Provider Physician Assistant Medical; Emergency Provider Internal Medicine; PCP Internal Medicine; Visit Provider Physician Assistant Medical | DX: J44.1 Chronic obstructive pulmonary disease with (acute) exacerbation (principal); J96.21 Acute and chronic respiratory failure with hypoxia; A41.9 Sepsis, unspecified organism; N39.0 Urinary tract infection, site not specified | CPT/HCPCS: 31500; 36556; 99291 ==

== ENCOUNTER → 2024-01-20 23:44 | Outpatient (BNV) | payer MEDICARE, MEDICAID, SELFPAY | PROVIDERS: Admitting Provider Physician Assistant Medical; Emergency Provider Internal Medicine; PCP Internal Medicine; Visit Provider Nurse Practitioner Psychiatric/Mental Health | DX: F11.90 Opioid use, unspecified, uncomplicated (principal) | CPT/HCPCS: 99221; 99232 ==

== ENCOUNTER 2024-10-31 10:14 | Outpatient (REF) | payer MEDICARE, MEDICAID, SELFPAY ==
--- OUTSIDE RECORDS SUMMARY | 2024-10-31 11:58 | XMS_ITS | Patient Health Record ---
[facility] [place] Address [address] [place] [address] Care Team Providers Care Certified Nursing Assistant Name Role Phone Ellen Cheema Primary Care Provider Unavailab Sarika Kendrick Unavailable [phone] Allergies No Known Allergies Reason For Referral No Information Medications Medication SIG (Take, Route, Frequency, Duration) Notes Start Date End Date Status metFORMIN HCl 1000 MG TAKE 1 TABLET BY M OUTH TWICE DAILY IN THE MORNING AND IN THE EVENING WITH MEALS Oral for 30 Active NovoLOG FlexPen 100 UNIT/ML Subcutaneous for 17 Active Gabapentin 600 MG TAKE 1 TABLET BY HERNANDO TH THREE TIMES DAILY IN THE MORNING, AT NOON, AND AT BEDTIME Oral for 30 Active Lisinopril 10 MG Oral for 30 A ctive Atorvastatin Calcium 40 MG TAKE 1 TABLET BY MOUTH EVERY MORNING Oral for 30 Active Tresiba FlexTouch 100 UNIT/ML Subcutaneous for 35 Active buPROPion HCl ER (SR) 150 MG TAKE 1 TABLET BY MOUTH TWICE DAILY IN THE MORNING AND AT BEDTIME Oral for 30 Activ e UltiCare Short Pen [place] 31G X 8 MM USE FIVE TIMES DAILY for 20 Active Albuterol Sulfate HFA 108 (90 Base) MCG/ACT INHALE 2 PUFFS BY MOUTH EVERY 4 HOURS NEEDED Inhalation for 17 Active Omeprazole 20 MG TAKE 1 CAPSULE BY MO UTH EVERY MORNING (BEFORE BREAKFAST) Oral for 30 Active Aspirin Low Dose 81 MG TAKE 1 TABLET BY MOUTH EVERY MORNING Oral for 30 Active SM Alcohol Prep 70 % USE DIRECTED for 30 Active FreeStyle Lite Test - TEST BLOOD SUGAR T HREE TIMES DAILY Diagnosis Unavailable In Vitro for 34 Active Flovent HFA 110 MCG/ACT Inhalation for 30 Active Vitamin D 50 MCG (1999 UT) TAKE 1 TABLET BY MOUTH EVERY MORNING Oral for 30 Active Furosemide 20 MG Oral for 30 A ctive Extra Depth Orthopedic Shoes (1 Pair) with Customized Heat Molded Multidensity Innersoles (3 Pair) as directed Dx: NIDDM/Polyneuropathy (E11.42), Hammertoe Foot Deformity (M20.41,M20.42), Preulcerative Skin Lesion(s) (L85.1 03/05/2021 Active Immunizations Vaccine Route Administration Date Status Comme nts Influenza Unknown 03/06/2020 Administered Social History Tobacco Use: Social History Observation Description Date Details (start date - stop date) Never Smoker NA - NA Tobacco Use/Smoking Question Answer Notes Are you a: nonsmoker Tobacco use other than smoking: Question Answer Notes Are you an other tobacco user? No Problems Problem Type SNOMED Code ICD Code Onset Dates Problem Status W/U Status Risk Notes Problem Acquired hammer toe of right foot (045807534150752 5) Other hammer toe(s) (acquired), right foot (M20.41) Active confirmed Problem 383991571 Charcot's joint, right ankle and foot (M14.671) Active confirmed Problem 764819538 Hammer toe of le ft foot (M20.42) Active confirmed Problem 00585752 Type 2 diabetes mellitus with polyneuropathy (E11.42) Active confirmed Problem 798474336 Ulcer of right foot limited to breakdown of skin (L97.511) Active confirmed Problem 026984624511 Type 2 diabetes mellitus with Charcot's joint of right foot (E11.610) Active confirmed Plan Of Treatment Pending Test Test Name Order Date X ray : Foot, right 3V 03/05/2021 X ray : Ankle, right 3V 03/05/2021 Insurance Providers Payer Name Payer Address Payer Phone Subscriber Number Group Number Insured Name Patient Relationship to Insured Coverage Start Date Coverage End Date Medicare [employer] [address] [place] [address] [id number] Lazara Driscoll Self - patient is the insured Medical (General) History Medical History History ICD Code Diabetes mellitus asthma Headaches/Migraines High blood pressure Surgical History Surgery Date(Month/Year) gall bladder 2020 Hospitalization History Reason Date(Month/Year) [facility] [place]- Pain in Right foot/ test x-rays jolynn e 12/2020 [facility] [place]- 2 day stay, lost eye sight 06/2021
--- OUTSIDE RECORDS SUMMARY | 2024-10-31 11:58 | XMS_ITS ---
Author Organization [facility] Care Team Providers Care Acid Patroller Name Role Phone Fidel Espinosa Unavailable Unavailable Vaishali Perkins Unavailable Unavailable Ran Zurita Unavailable Allergies and adverse reactions No Known Allergies Care Team Name Role Address Phone Organization Dates Vaishali Perkins PCP [address], [address], [facility] (Office): (Pager): [facility] 03/31/2022 - 08/14/2022 Fidel Espinosa Attending Physician [address], [address], [facility] (Office): : [facility] 03/31/2022 - 08/14/2022 Ran Zurita Attending Physician [address] [place], [address], [place] (Office): [facility] 03/31/2022 - 08/14/2022 Immunizations Immunization Status Vaccine Details Vaccine Code CodeSystem Date Notes SARS-COV-2 (COVID-19) completed SARS-COV-2 (COVID-19) vaccine, vector non-replicating, recombinant spike protein-Ad26, preservative free, 0.5 mL Mfg: Noemi Step 1 of Multi-step 212 CVX created date: 01/17/2022 administere d date: 10/13/2020 Noemi Mental Status Section Date Assessment Total Score Description 08/14/2022 BIMS 15 cognitively int act CAM 0 No delirium ind icated PHQ-9 00 07/10/2022 BIMS 15 cognitively int act CAM 0 No delirium ind icated PHQ-9 12 moderate depres radha Problems Problem # Description Date of onset Resolved Date Code CodeSystem Concern Status 1 DYSPHONIA 07/09/[address] active 2 UNSPECIFIED VOICE AND RESONANCE DISORDER 07/09/[address] active 3 ANXIETY DISORDER, UNSPECIFIED 06/08/[address] active 4 ACUTE KIDNEY FAILURE, UNSPECIFIED 03/31/[address] active 5 ANEMIA, UNSPECIFIED 03/31/[address] active 6 BACTEREMIA 03/31/[address] active 7 CUTANEOUS ABSCESS OF LEFT UPPER LIMB 03/31/[address] active 8 ENCOUNTER FOR SURGICAL AFTERCARE FOLLOWING SURGERY ON THE SKIN AND SUBCUTANEOUS TISSUE 03/31/[address] active 9 LOCALIZED SWELLING, MASS AND LUMP, LEFT UPPER LIMB 03/31/[address] active 10 METHICILLIN RESISTANT STAPHYLOCOCCUS AUREUS INFECTION THE CAUSE OF DISEASES CLASSIFIED ELSEWHERE 03/31/[address] active 11 METHICILLIN RESISTANT STAPHYLOCOCCUS AUREUS INFECTION, UNSPECIFIED SITE 03/31/[address] active 12 HYPERLIPIDEMIA, UNSPECIFIED 02/15/[address] active 13 OTHER DIETARY VITAMIN B12 DEFICIENCY ANEMIA 02/15/[address] active 14 ACQUIRED ABSENCE OF RIGHT LEG BELOW KNEE 01/17/[address] active 15 CELLULITIS OF RIGHT LOWER LIMB 01/17/[address] active 16 CELLULITIS, UNSPECIFIED 01/17/20 22 03/05/[address] completed 17 CHARCOT'S JOINT, RIGHT ANKLE AND FOOT 01/17/[address] active 18 CHRONIC EMBOLISM AND THROMBOSIS OF OTHER SPECIFIED VEINS 01/17/[address] active 19 CHRONIC OBSTRUCTIVE PULMONARY DISEASE, UNSPECIFIED 01/17/[address] active 20 DIFFICULTY IN WALKING, NOT ELSEWHERE CLASSIFIED 01/17/[address] active 21 ENCOUNTER FOR ORTHOPEDIC AFTERCARE FOLLOWING SURGICAL AMPUTATION 01/17/[address] active 22 ESSENTIAL (PRIMARY) HYPERTENSION 01/17/[address] active 23 GASTRO-ESOPHAGEAL REFLUX DISEASE WITHOUT ESOPHAGITIS 01/17/[address] active 24 HEART FAILURE, UNSPECIFIED 01/17/[address] active 25 HYPERGLYCEMIA, UNSPECIFIED 01/17/[address] active 26 CLEARANCE CUTTER (CURRENT) USE OF OPIATE ANALGESIC 01/17/[address] active 27 MAJOR DEPRESSIVE DISORDER, RECURRENT, UNSPECIFIED 01/17/[address] active 28 OPIOID DEPENDENCE, UNCOMPLICATED 01/17/[address] active 29 OTHER ACUTE OSTEOMYELITIS, RIGHT ANKLE AND FOOT 01/17/[address] active 30 OTHER CHRONIC OSTEOMYELITIS, UNSPECIFIED ANKLE AND FOOT 01/17/20 22 01/17/[address] completed 31 SOLITARY PULMONARY NODULE 01/17/[address] active 32 TOBACCO USE 01/17/20 22 Z72.0 ICD-10-CM active 33 TYPE 2 DIABETES MELLITUS WITH UNSPECIFIED COMPLICATIONS 01/17/[address] active 34 UNSPECIFIED GLAUCOMA 01/17/[address] active 35 UNSTEADINESS ON FEET 01/17/[address] active 36 WEAKNESS 01/17/[address] active Reason for Referral No Reasons for Referral Entered Social History Social History Observation Description Start Date End Date Code Code System Current Smoking Status Tobacco smoking consumption unknown 281705766 SNOMED CT Sex Assigned At Female 1960 60860-7 [facility] Vital Signs Code Code System Vitals Name Values and Units Timing Information 70831-9 [facility] Pain Level Value=0.0 08/14/2022 2339-0 [facility] Blood Sugar Krljm=959.0 Units=mg/dL 08/14/2022 9279-1 [facility] Respiratory Rate Value=19.0 Units=/m in 08/14/2022 8310-5 [facility] Body Temperature Value=97.7 Units=?? F 08/14/2022 69252-1 [facility] O2 % BldC Oximetry Value=98.0 Units= % 08/14/2022 8462-4 [facility] Blood Pressure-Diastolic Value=79 Un its=mmHg 08/13/2022 8480-6 [facility] Blood Pressure-Systolic Mzrxe=966 Un its=mmHg 08/13/2022 8867-4 [facility] Heart rate Value=68.0 Units=/min 02/2023 54792-4 [facility] Weight Upica=585.6 Units=Lbs 10/2022 8302-2 [facility] Height Value=59.0 Units=Inches 01/17/2022
--- OUTSIDE RECORDS SUMMARY | 2024-10-31 11:58 | XMS_ITS | Clinical Summary ---
Author Organization [employer] Address [address] [place] [address] [address] [place] [address] Care Team Providers Care Dowel Setting Machine Operator Name Role Phone Unavailable Primary Care Provider Unavailabl e Medications albuterol (2.5 MG/3ML) 0.083% nebulizer solution inhale 3 milliliter by nebulization route every 6 hours as needed Dx: J44.9 9 Active atorvastatin (Lipitor) 20 MG tablet Take 1 tablet by mouth once daily 3 Active Flovent HFA 110 MCG/ACT inhaler Take 2 puffs by mouth 2 times a day (Rinse mouth after using). 3 Active gabapentin (Neurontin) 400 MG capsule Take 1 capsule by mouth 3 times a day 3 Active furosemide (Lasix) 20 MG tablet take 1 tablet by oral route every morning 1 Active aspirin (Vero Low Dose) 81 MG EC tablet take 1 by oral route once 0 Active metFORMIN (Glucophage) 1000 MG tablet TAKE 1 TABLET BY MOUTH TWICE DAILY IN THE MORNING AND IN THE EVENING WITH MEALS 2 Active methadone (Dolophine) 10 MG/ML solution take 90 mg by mouth daily Active nicotine (Nicoderm, Step 2) 14 MG/24HR patch apply 1 patch by transdermal route every day 1 Active NovoLOG 100 UNIT/ML solution Inject 4-28 units subcutaneously 3 times a day per sliding scale. 2 Active NovoLOG FLEXPEN 100 UNIT/ML pen INJECT 4 TO 28 UNITS SUBCUTANEOUSLY THREE TIMES DAILY WITH MEALS PER SLIDING SCALE 2 Active omeprazole (PriLOSEC) [address] capsule TAKE 1 CAPSULE BY MOUTH EVERY MORNING (BEFORE BREAKFAST) 1 Active UltiCare Short Pen [place] 31G X 8 MM misc USE FIVE TIMES DAILY 2 Active prednisoLONE acetate (Pred-Forte) 1 % ophthalmic suspension PLACE 1 DROP IN THE RIGHT EYE EVERY 2 HOURS DIRECTED. SHAKE WELL BEFORE USE. 2 Active Lantus 100 UNIT/ML injection Inject as directed 3 Active albuterol 108 (90 Base) MCG/ACT inhaler Inhale 2 puffs every 4 hours as needed 3 Active cholecalcifero l (Vitamin D-3) 50 MCG (2000 UT) tablet TAKE 1 TABLET BY MOUTH EVERY MORNING 0 Active buPROPion SR (Wellbutrin SR) 150 MG 12 hr tablet TAKE 1 TABLET BY MOUTH TWICE DAILY IN THE MORNING AND AT BEDTIME 2 Active buPROPion XL (Wellbutrin XL) 150 MG 24 hr tablet Take 1 tablet BID 3 Active ipratropium-al buterol (Duo-Neb) 0.5-2.5 mg/3 mL nebulizer solution Use as directed 2 Active lisinopril 10 MG tablet Take 1 tablet once daily 3 Active metoprolol succinate XL (Toprol-XL) 25 MG 24 hr tablet Take 1 tablet by mouth once daily 3 Active mirtazapine (Remeron) 7.5 MG tablet 3 Active naproxen sodium (Aleve) 220 MG tablet take 1 tablet by oral route every 12 hours as needed Active ondansetron (Zofran) 4 MG tablet Take 1 tablet by mouth every 6 hours as needed. 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 06/07/2021 Tobacco dependence syndrome 10/06/2014 Diabetic neuropathy 11/04/2013 Opioid dependence 11/04/2013 Type 2 diabetes mellitus 06/15/2012 Depressive disorder 04/06/2012 Loss of sense of smell 04/06/2012 Retinal disorder 04/06/2012 Chronic obstructive lung disease 11/27/2011 Pure hypercholesterolemia 11/27/2011 Immunizations Name Administration Dates Next Due Hep B, adult 03/12/2010,10/02/2009,08/28/2009 Influenza injectable quadriv alent IIV4 with preservative 04/08/2023 Influenza injectable quadriv alent preservative free 07/04/2019,07/08/2016 Influenza, IIV3, injectable 05/02/2011,0 03/28/2010,06/26/2008,05/27,07/15/2005,07/02/2004,04/28/2003 Influenza, Split (incl. vijay fied surface antigen) 04/06/2012 Influenza, seasonal, injecta ble, preservative free 03/06/2020 Noemi SARS-CoV-2 Vaccination 10/13/2020 Pneumococcal Polysaccharide PPSV23 04/14/2013, TD (adult), 2 Lf tetanus tox oid, preservative free, adsorbed 05/29/2006 Tdap 04/06/2012 Varicella 07/06/2000 Social History Tobacco Use Types Packs/Day Years Used Date Smoking Tobacco: Never Assessed Comments Unknown Sex and Gender Information Value Date Recorded Sex Assigned at Female 05/05/2022 10:14 AM EDT Legal Sex Female 10:14 AM EDT Gender Identity Female 05/05/2022 10:14 AM EDT Sexual Orientation Straight 05/05/2022 10 :14 AM EDT Last Filed Vital Signs Vital Sign Reading Time Taken Comments Blood Pressure 142/80 12/18/2021 12:06 AM EDT Pulse 88 12/18/2021 12:06 AM EDT Temperature - - Respiratory Rate - - Oxygen Saturation - - Inhaled Oxygen Concentration - - Weight 53.2 kg (117 lb 3.2 oz) 12/18/2021 12:06 AM EDT Height 149.9 cm (4' 11 ) 12/18/2021 12:06 AM EDT Body Mass Index 23.67 12/18/2021 12:06 AM EDT Plan of Treatment Health Maintenance Due Date Last Done Comments CT Colonography 1960 Colonoscopy 1960 Colorectal Cancer Screening 1960 Depression Screening 1960 FIT DNA/Cologuard 1960 FIT 1960 FOBT 1960 HIV Screening 1960 Lipid Panel 1960 SDOH Screening 1960 Sigmoidoscopy 1960 Diabetes: Foot Exam 01/06/1970 Eye Exam 01/06/1970 Alcohol/Substance Use Screening 1972 Tobacco Screening 1972 Hepatitis C Screening 01/06/1978 Diabetes: Urine Protein Screening 01/06/1979 Pap Smear 01/06/1981 Cervical Cancer Screening 01/06/1990 HPV/Cotest 01/06/1990 Mammogram 2000 Zoster Vaccines (1 of 2) 01/06/2010 Pneumococcal Vaccine: 50+ Years (2 of 2 - PCV) 04/14/2014 04/14/2013, 07/02/2004 RSV Patients and Patients Aged 60 years or older (1 - Risk 60-74 years 1-dose series) 2020 DTaP/Tdap/Td Vaccines (2 - Td or Tdap) 04/06/2022 04/06/2012, 05/29/2006 Diabetes: Hemoglobin A1C 01/20/2024 10/21/2023 COVID-19 Vaccine (2 - season) 2024 10/13/2020 Influenza Vaccine (#1) 2024 3, 03/06/2020, 07/04/2019, Additional history exists Hepatitis B Vaccines Completed 03/12/2010, 10/02/2009, 08/28/2009 HIB Vaccines Aged Out No longer eligi ble based on patient's age to complete this topic HPV Vaccines Aged Out No longer eligi ble based on patient's age to complete this topic Hepatitis A Vaccines Aged Out No long er eligible based on patient's age to complete this topic IPV Vaccines Aged Out No longer eligi ble based on patient's age to complete this topic Meningococcal Vaccine Aged Out No lencho júnior eligible based on patient's age to complete this topic RSV under 20 months Aged Out No longe r eligible based on patient's age to complete this topic Rotavirus Vaccines Aged Out No longer eligible based on patient's age to complete this topic Insurance * Guarantor: Lazara Driscoll Account Type Relation to Patient Date of Phone Billing Address Personal/Family Self [address]
[2024-10-31 12:01] LABS: Anion Gap 15 (12-20); Carbon Dioxide 23 mmol/L (22-29); Chloride 107 mmol/L (96-108); Potassium 5.5 mmol/L (3.3-5.1); Sodium 139 mmol/L (135-145)
== END 2024-10-31 10:15 | disposition home or self-care (01) ==
LOC: HO.LAB 10:14
PROVIDERS: PCP Internal Medicine; Visit Provider Internal Medicine
DX: E87.5 Hyperkalemia (principal)
CPT/HCPCS: 36415; 80051

== ENCOUNTER 2024-11-12 21:41 | Inpatient (IN) | payer MEDICARE, MEDICAID, SELFPAY ==
--- NOTE | 2024-11-12 | ECG_ITS ---
Test Reason : CONFUSION Blood Pressure : */* mmHG Vent. Rate : 67 BPM Atrial Rate : 67 BPM P-R Int : 152 ms QRS Dur : 82 ms QT Int : 426 ms P-R-T Axes : 30 -4 8 degrees QTcB Int : 450 ms Normal sinus rhythm Nonspecific ST and T wave abnormality Borderline ECG When compared with ECG of 23-Jan-2024 10:10, Premature atrial complexes are no longer Present T wave inversion no longer evident in Anterior leads Nonspecific T wave abnormality now evident in Lateral leads Referred By: Generic ED Physician Electronically Signed By: CATRACHITO NUNEZ
--- NOTE | ~2024-11-12 | XR_ITS ---
CLINICAL HISTORY: sob 1 view chest x-ray Comparison: CR/SR - XR CHEST 1V - 01/21/24 01:16 EDT Findings: Diffuse patchy interstitial and airspace opacity in both lungs. No pleural effusion or pneumothorax. Heart size normal. IMPRESSION: 1. Patchy mixed interstitial and airspace opacity may reflect atypical infectious process or CHF/volume overload. Correlate with CBC and BNP. This document has been electronically signed by: Randal Sanchez MD on 11/13/2024 00:34:24
--- NOTE | ~2024-11-12 | CT_ITS ---
CLINICAL HISTORY: confusion CT head without contrast Comparison: CT/SR - CT HEAD/BRAIN WO IV CON - 02/05/23 12:45 EDT Findings: Scattered subcortical and periventricular hypoattenuation, likely in keeping with chronic small vessel ischemic disease. Progressive parenchymal volume loss with compensatory prominence of the ventricles and CSF spaces. No acute territorial infarction, intracranial hemorrhage, midline shift or hydrocephalus. The visualized paranasal sinuses and mastoid air cells are normal. Redemonstrated bilateral lens extraction, left scleral buckle and left globe deformity. No skull fracture. IMPRESSION: 1. No acute intracranial abnormality. 2. Additional findings as described. This document has been electronically signed by: Ralph Villafana MD on 11/13/2024 03:04:04
[2024-11-12 21:48] VITALS: BP 126/43; PULSE 74; RESP 16; TEMP 37.1; O2SAT 95; BMI 34.3
--- NOTE | 2024-11-12 22:03 | PC.NURSE ---
terry cloth cutter hand and MD Mederos made aware of sx, pt being taken to ed17 at this time.
[2024-11-12 22:12] VITALS: BP 130/51; PULSE 76; RESP 16; TEMP 37; O2SAT 94
--- NOTE | 2024-11-12 22:15 | PC.NURSE ---
Patient is a 64-year-old female well known to this facility who has underlying history of polysubstance abuse, recurrent episodes of hypoxic respiratory failure, Diabetic osteomyelitis with [id number] amputation of the right lower extremity, charcoal foot, cellulitis, gastritis, constipation, CHF, DKA, pulmonary embolism, pulmonary nodule, COPD, tobacco abuse, medical noncompliance among others who presents s/p fem-pop bypass to her left leg. Daughter states she has had a high potassium and more is not herself . Denies any pain. Patient is alert and cooperative. composition weatherboard applier applied and NSR noted. Lungs essenitally clear. Respirations even and non-labored. Abdomen soft, distended with positive bowel sounds. Dressing intact to left LE.
--- NOTE | 2024-11-12 23:30 | ED.GENADULT ---
HPI - General Adult General Chief complaint: General Medical Stated complaint: fever,dizziness /bypass sugery 11/07 Time Seen by Provider: 11/12/24 22:06 Source: patient and family Mode of arrival: ambulatory Limitations: no limitations History of Present Illness ED Provider: Dr. Jose Martin HPI narrative: 64-year-old female with a history of diabetes mellitus, COPD, depression, opiate overdose, pneumonia, pulmonary embolism, osteomyelitis, right [id number] amputation who presents to the emergency department by her family for evaluation of chest pain, shortness of breath, cough, confusion. The patient developed chest pain earlier tonight. She describes the pain as a constant, sharp pain located in the center of her chest. Pain is worse with coughing and with the breathing. The family states the patient became confused and she has had similar infusion in the past secondary to pneumonia or due to electrolyte abnormalities. The patient also complained of lightheadedness, dizziness and weakness. Patient denied fever or chills. She states she has a cough which is chronic but has gotten worse. She has a nonproductive cough and increased shortness of breath over the last 3 days. She denied nausea, vomiting, diarrhea. She denied diarrhea. She denied change in her bowel movements. Related Data Home Medications ?Medication ?Instructions ?Recorded ?Confirmed albuterol sulfate 90 mcg/actuation 2 puff PO Q4H PRN Respiratory 04/24/20 01/21/24 aerosol inhaler Distress aspirin 81 mg tablet,delayed 81 mg PO DAILY 04/24/20 01/21/24 release atorvastatin 40 mg tablet 40 mg PO DAILY 04/24/20 01/21/24 bupropion HCl 150 mg tablet,12 hr 150 mg PO BID 04/24/20 01/21/24 sustained-release lancets 33 gauge #100 ea 04/24/20 01/12/24 metformin 1,000 mg tablet 1,000 mg PO BIDWM 04/24/20 01/21/24 omeprazole 20 mg capsule,delayed 20 mg PO DAILY@0630 04/24/20 01/21/24 release gabapentin 600 mg tablet 600 mg PO TID 05/03/20 01/21/24 acetaminophen 325 mg capsule 325 mg PO QID PRN Pain 11/02/23 01/21/24 insulin aspart (niacinamide) 0 sliding scale dose subcut 12/31/23 01/21/24 (U-100) 100 unit/mL subcutaneous USEASDIRECTD solution (Fiasp U-100 Insulin) mirtazapine 7.5 mg tablet 7.5 mg PO BEDTIME 12/31/23 01/21/24 fluticasone furoate 100 1 inh inhalation DAILY 01/01/24 01/21/24 mcg/actuation blister powder for inhalation (Arnuity Ellipta) Previous Rx's ?Medication ?Instructions ?Recorded walker #1 ea 10/11/20 ondansetron 4 mg disintegrating 4 mg PO TID PRN nausea and 12/09/22 tablet vomiting 5 days #10 tabs lisinopril 40 mg tablet 40 mg PO DAILY #90 tabs 12/29/23 nicotine 14 mg/24 hr daily 14 mg transdermal DAILY #30 ea 01/04/24 transdermal patch insulin degludec 100 unit/mL (3 15 unit (0.15 mL) subcut BEDTIME 01/17/24 mL) subcutaneous pen (Tresiba #15 mL FlexTouch U-100 insulin) amlodipine 10 mg tablet 5 mg (1/2 x 10 mg) PO DAILY #90 01/29/24 tabs carvedilol 6.25 mg tablet 6.25 mg PO BID #1 tab 01/29/24 docusate sodium 100 mg capsule 100 mg PO DAILY #30 caps 01/29/24 (Colace) ertapenem 1 gram solution for 1 g IV DAILY uti #8 ea 01/29/24 injection methadone 10 mg/mL oral 10 mg PO DAILY PRN Opiate 01/29/24 concentrate (Methadose) Withdrawal #1 mL methadone 10 mg/mL oral 40 mg (4 mL) PO DAILY #1 mL 01/29/24 concentrate (Methadose) polyethylene glycol 3350 17 17 g PO DAILY PRN constipation 01/29/24 gram/dose oral powder (Miralax) #119 grams prednisone 10 mg tablet 30 mg (3 x 10 mg) PO DAILY #3 tabs 01/29/24 tamsulosin 0.4 mg capsule 0.4 mg PO BEDTIME #30 caps 01/29/24 Allergies Allergy/AdvReac Type Severity Reaction Status Date / Time No Known Allergies Allergy Verified 11/12/24 21:54 Review of Systems Review of Systems: Yes all other systems are reviewed and are negative [facility] Past Medical History [facility] Narrative: Social history: The patient is a long-time smoker but she has been on nicotine patch since 11/06/2024 in his not been smoking. She denies alcohol use. 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 The patient states she has not used heroin since June 2024. Medical History Diabetic osteomyelitis Below-knee amputation of right lower extremity Osteomyelitis of ankle Charcot foot due to diabetes mellitus Acute hyperglycemia Cellulitis Gastroenteritis Gastritis Constipation Diabetic foot ulcer New onset of congestive heart failure DKA (diabetic ketoacidoses) COVID-19 Dyslipidemia Glaucoma Pulmonary emboli Depression Chronic prescription opiate use Diabetes mellitus Pulmonary nodule Tobacco dependence COPD (chronic obstructive pulmonary disease) Surgical History History of below-knee amputation of right lower extremity (01/13/22) Cataract extraction status, right eye Cataract extraction status, left eye Hx of cholecystectomy Family History Family History Other CVA (cerebral vascular accident) Social History Social History Household Members: Unknown / Unable to assess Housing: Unknown / Unable to assess Housing Other:: hotel Do you presently have visiting nurse or other home services: Yes Unable to assess alcohol history related to: Unknown Alcohol intake: never Comment: refused telesitter Patient Tobacco Use Status: Tobacco use Unknown Tobacco use type: Cigarette Cigarette Packs Per Day: 0.3 Cigarettes Per Day: 6.0 Years Smoked: 50 e-Cigarette/Vaping Use: Currently Using Second Hand Smoke Exposure: No Substance Use Type: Former Substance User Advance Directives: Yes Advance Directives on File: Yes Advance Directives Date on File: 10/20/23 Do you have a plan to hurt others: No Plan service: Yes Current occupational status: disabled Physical Exam ED Vital Signs: Vital Signs - 24 hr 11/12/24 21:48 11/12/24 22:12 11/13/24 00:26 Temperature 98.8 F 98.6 F Pulse Rate 74 76 67 Respiratory Rate 16 16 18 Blood Pressure 126/43 L 130/51 L Pulse Oximetry 95 94 Oxygen Delivery Method Room Air Room Air BMI result Body Mass Index 34.3 Vital signs were normal Exam: General: Awake, alert in no distress Head: Normocephalic, atraumatic EENT: Left cornea is sclerotic-left eye blind, right pupil 4 mm and reactive to light, Lids normal, sclera normal, conjunctiva normal, nose normal , ears normal, throat without erythema or exudates Neck: Supple, no adenopathy Lung: Patient has diffuse wheezing with diffuse rhonchi, no rales, breath sounds were symmetric bilaterally Chest: symmetric movement, tenderness with palpation of the anterior chest and sternum Heart: regular rate and rhythm, normal S1, S2 no murmurs or rubs Abdomen: soft, non-tender, nondistended, normal bowel sounds Back: no vertebral tenderness, no CVAT Extremities: no deformities, moves all extremities symmetrically (right ulruq-few-koss amputation) Neuro: Awake, alert, oriented, normal speech, cranial nerves intact, moves all extremities symmetrically Psych: Pleasant, cooperative Medications Administered Discontinued Medications Generic Name Dose Route Start Last Admin Trade Name Yuryq PRN Reason Stop Dose Admin Albuterol Sulfate 7.5 mg/ 10 mg 11/13/24 00:25 11/13/24 00:31 Albuterol Sulfate 2.5 mg INHALE 11/13/24 00:26 10 mg ONCE ONE Administration Methylprednisolone Sodium Succinate 125 mg 11/12/24 23:53 11/13/24 00:56 Methylprednisolone Sod Succ 125 Mg/2 Ml Vial IVPUSH 11/12/24 23:54 Not Given ONCE ONE Methylprednisolone Sodium Succinate 125 mg 11/13/24 01:00 11/13/24 00:56 Methylprednisolone Sod Succ 125 Mg Vial IVPUSH 11/13/24 01:01 125 mg ONCE ONE Administration Medical Decision Making Medical Decision Making [facility] Narrative: 64-year-old female with a history of diabetes mellitus, COPD, depression, opiate overdose, pneumonia, pulmonary embolism, osteomyelitis, right vdbqv-tua-xckf amputation who presents to the emergency department by her family for evaluation of chest pain, shortness of breath, cough, confusion. The patient developed chest pain earlier tonight. She describes the pain as a constant, sharp pain located in the center of her chest. Pain is worse with coughing and with the breathing. The family states the patient became confused and she has had similar infusion in the past secondary to pneumonia or due to electrolyte abnormalities. The patient also complained of lightheadedness, dizziness and weakness. Patient denied fever or chills. She states she has a cough which is chronic but has gotten worse. She has a nonproductive cough and increased shortness of breath over the last 3 days. She denied nausea, vomiting, diarrhea. She denied diarrhea. She denied change in her bowel movements. Vital signs were normal. Patient did have anterior chest wall tenderness. Lung exam revealed revealed diffuse wheezing and diffuse rhonchi with no rales. 00:20 Differential diagnosis: ?Includes but is not limited to asthma/chronic lung disease exacerbation, congestive heart failure, pneumonia, electrolyte abnormalities, anemia, urinary tract infection Course: 00:25 The patient was treated with that has IV, albuterol denies your 10 mg. 01:20 My interpretation patient's laboratory evaluation is as follows: WBC elevated 10,900-chronic. Chronic normocytic anemia with an H&H of 7.4 and 23.2. Platelet count was normal 232. INR was normal. VBG was normal. Chloride was elevated 110. BUN was elevated 28. Glucose elevated 153. Troponin was below detectable limits. BNP was elevated 155-she has had higher evaluations in the past. Urinalysis revealed trace leukocyte esterase. Microscopic was negative for bacteria lactic acid was normal at 1.6. The patient's one-view chest x-ray did reveal increased interstitial patchy infiltrates which could be secondary to pneumonia or chronic interstitial disease. Radiology reading is concerning for possible pneumonia versus chronic interstitial disease. Given these findings, the patient will be treated for possible pneumonia with ceftriaxone 1 g IV and azithromycin 500 mg IV. 01:39 I did discuss the patient's presentation over tiger text with the covering hospitalist, Dr. Erazo and the patient will be admitted for further treatment. Admission/Observation Consideration of admission/observation: Escalation of care including admission/observation considered (Yes) Lab Data MDM Lab Attestation statement: I reviewed the patient's lab results. 11/13/24 00:37 11/13/24 00:37 Labs: Lab Results 11/13/24 11/13/24 11/13/24 Range/Units 00:37 00:40 00:50 WBC 10.9 H (4.8-10.8) X10*3/uL RBC 2.54 L D (4.20-5.50) X10*6/uL Hgb 7.4 L D (12.0-16.0) g/dl Hct 23.2 L D (37.0-47.0) % MCV 91.3 (80.0-98.0) fL MCH 29.1 (27.0-33.0) pg MCHC 31.9 (31.0-35.0) g/dl RDW 14.6 (11.0-16.0) % Plt Count 232 D (160-400) X10*3/uL MPV 10.9 (9.4-12.3) fL Immature Gran % (Auto) 0.4 (0.0-0.4) % Neut % (Auto) 69.3 (45-73) % Lymph % (Auto) 19.2 L (20-40) % Lyon % (Auto) 9.3 (2-11) % Eos % (Auto) 1.4 (0-4) % Baso % (Auto) 0.4 (0-2) % Lymph # (Auto) 2.1 (1.2-4.9) X10*3/uL [place] # (Auto) 1.0 (0.1-1.2) X10*3/uL Eos # (Auto) 0.2 (0.0-0.4) X10*3/uL Baso # (Auto) 0.0 (0.0-0.2) X10*3/uL Abs Immat Gran (auto) 0.04 H (0.00-0.03) X10*3/uL Absolute Neuts (auto) 7.6 (2.0-8.3) x10*3/uL Absolute Nucleated RBC 0.000 (0.0-0.012) X10*3/uL Nucleated RBC % (auto) 0.0 (0.0-0.2) /100WBC PT 10.6 L (10.9-12.4) SEC INR 0.9 (0.9-1.1) VBG pH 7.34 (7.32-7.43) VBG pCO2 46 mmHg VBG pO2 46 mmHg VBG HCO3 25 (22-26) mmol/L VBG O2 Saturation 70.0 % VBG Base Excess -0.6 mmol/L Sodium 142 (135-145) mmol/L Potassium 5.0 (3.3-5.1) mmol/L Chloride 110 H (96-108) mmol/L Carbon Dioxide 22 (22-29) mmol/L Anion Gap 15 (12-20) BUN 28 H (9-16) mg/dL Creatinine 1.33 (0.5-1.4) mg/dL Estim Creat Clear Calc 38.3 Estimated GFR 40 Random Glucose 153 H (60-115) mg/dL Lactic Acid 1.6 (0.5-2.0) mmol/L Calcium 8.9 D (8.4-10.2) mg/dL Magnesium 1.7 (1.6-2.6) mg/dL Total Bilirubin 0.3 (0.0-1.0) mg/dL AST 15 (5-31) U/L ALT 6 (0-31) U/L Troponin I High Sens < 2.7 (<3.5-17.0) ng/L B-Natriuretic Peptide 155 H (<100) pg/mL Total Protein 7.3 (6.5-8.0) g/dL Albumin 3.7 (3.5-5.0) g/dL Urine Color Yellow Urine Appearance Clear Urine pH 5.5 (5.0-9.0) Ur Specific [place] 1.020 (1.005-1.025) Urine Protein Trace (Neg-Trace) mg/dL Urine Glucose (UA) Negative (Negative) mg/dL Urine Ketones Negative (Negative) mg/dL Urine Blood Negative (Negative) Urine Nitrite Negative (Negative) Ur Leukocyte Esterase Trace H (Negative) Urine RBC 0-2 (0-2) /HPF Urine WBC 0-5 (0-5) /HPF Ur Squamous Epith Cells 3-5 (0-2) /HPF Urine Bacteria None Seen (None Seen) Hyaline Casts 0-2 (0-2) /LPF Independent Interpretation I performed an independent interpretation of an: EKG and Plain X-Ray Interpretation: My interpretation of the patient's one-view chest x-ray is as follows: Patchy interstitial infiltrates, patient has had similar findings on previous x-rays and on several previous x-rays these infiltrates were much more prominent. My interpretation patient's 12 EKG done on 11/13/2024 at 19:08 hours is as follows: Normal sinus rhythm rate of 67, normal NV interval, QRS duration and QTC interval, no ST segment elevation, no ST no significant T-wave abnormalities. Compared to an EKG done on 01/23/2024 at 10:10 hours revealed no significant changes. Radiology Impression Discussion of test interpretation with radiology: I have reviewed the radiologist's reading. Radiologist Impression: 1 view chest x-ray Comparison: CR/SR - XR CHEST 1V - 01/21/24 01:16 EDT Findings: Diffuse patchy interstitial and airspace opacity in both lungs. No pleural effusion or pneumothorax. Heart size normal. IMPRESSION: 1. Patchy mixed interstitial and airspace opacity may reflect atypical infectious process or CHF/volume overload. Correlate with CBC and BNP. This document has been electronically signed by: Randal Sanchez MD on 11/13/2024 00:34:24 Independent Historian Clinical information obtained from an independent historian. History obtained from or confirmed by: Other (Daughter) External Record Review External record reviewed: Inpatient record Chronic Conditions Patient?s care impacted by: Diabetes and Other (COPD/asthma) Discharge Plan Discharge Clinical Impression: Asthma exacerbation, Pneumonia, Acute confusion Patient Disposition: Admitted As Inpatient Prescriptions: No Action (DME) walker Misc See Rx Instructions .ROUTE .MEDSUPPLY Qty: 1 0RF Rx Instructions: As directed ondansetron 4 mg tablet,disintegrating 4 mg PO TID PRN (Reason: nausea and vomiting) 5 Days Qty: 10 0RF lisinopril 40 mg tablet 40 mg PO DAILY Qty: 90 0RF mirtazapine 7.5 mg tablet 7.5 mg PO BEDTIME Fiasp U-100 Insulin 100 unit/mL solution 0 sliding scale dose subcut USEASDIRECTD Arnuity Ellipta 100 mcg/actuation blister with device 1 inh inhalation DAILY nicotine 14 mg/24 hr Patch 24 Hour 14 mg transdermal DAILY Qty: 30 0RF ertapenem 1 gram recon soln 1 g IV DAILY Qty: 8 0RF carvedilol 6.25 mg Tablet 6.25 mg PO BID Qty: 1 0RF Protocol: Hold for SBP/HR < HOLD for SBP < : 90 HOLD for HR < : 60 methadone [Methadose] 10 mg/mL Concentrate 10 mg PO DAILY PRN (Reason: Opiate Withdrawal) Qty: 1 0RF Rx Instructions: Partial Fill upon patient request. methadone [Methadose] 10 mg/mL Concentrate 40 mg PO DAILY Qty: 1 0RF Rx Instructions: Partial Fill upon patient request. prednisone 10 mg Tablet 30 mg PO DAILY Qty: 3 0RF amlodipine 10 mg tablet 5 mg PO DAILY Qty: 90 0RF docusate sodium [Colace] 100 mg capsule 100 mg PO DAILY Qty: 30 0RF polyethylene glycol 3350 [Miralax] 17 gram/dose powder 17 g PO DAILY PRN (Reason: constipation) Qty: 119 0RF tamsulosin 0.4 mg Capsule 0.4 mg PO BEDTIME Qty: 30 0RF insulin degludec [Tresiba FlexTouch U-100] 100 unit/mL (3 mL) insulin pen 15 unit subcut BEDTIME Qty: 15 0RF gabapentin 600 mg tablet 600 mg PO TID (DME) lancets 33 gauge misc See Rx Instructions Not Applicable TID Qty: 100 Rx Instructions: As directed albuterol sulfate 90 mcg/actuation HFA aerosol inhaler 2 puff PO Q4H PRN (Reason: Respiratory Distress) omeprazole 20 mg capsule,delayed release(DR/EC) 20 mg PO DAILY@0630 metformin 1,000 mg tablet 1,000 mg PO BIDWM aspirin 81 mg tablet,delayed release (DR/EC) 81 mg PO DAILY bupropion HCl 150 mg tablet sustained-release 12 hr 150 mg PO BID atorvastatin 40 mg tablet 40 mg PO DAILY acetaminophen 325 mg capsule 325 mg PO QID PRN (Reason: Pain) Print Language: Nicaraguan
--- NOTE | 2024-11-12 23:32 | PC.NURSE ---
This RN assumed pt care @ 2300. Pts family not happy with provider and requesting a different provider Pt denies pain at this time Pts family reporting pt began acting disoriented at 1700. Plan of care ongoing.
[2024-11-13] VITALS (10 sets, daily range): BP systolic 117–163; BP diastolic 39–75; PULSE 67–106; RESP 14–20; TEMP 36.3–36.8; O2SAT 94–100; BMI 32.9
[2024-11-13] MEDS: Albuterol Sulfate 7.5 MG, Albuterol Sulfate (0.083%) 2.5 MG 10 MG INHALE (00:31)
[2024-11-13 00:50] LABS: MANUAL DIFF FLAG NO
[2024-11-13 00:51] LABS: Basophils Percent Auto 0.4 % (0-2); Eosinophils Absolute Auto 0.2 X10*3/uL (0.0-0.4); Eosinophils Percent Auto 1.4 % (0-4); Hematocrit 23.2 % (37.0-47.0); Hemoglobin 7.4 g/dl (12.0-16.0); Imm Gran Abs Auto 0.04 X10*3/uL (0.00-0.03); Imm Gran Pct Auto 0.4 % (0.0-0.4); Lymphocytes Absolute Auto 2.1 X10*3/uL (1.2-4.9); Lymphocytes Percent Auto 19.2 % (20-40); Mean Corpuscular HGB Conc 31.9 g/dl (31.0-35.0); Mean Corpuscular Hemoglobin 29.1 pg (27.0-33.0); Mean Corpuscular Volume 91.3 fL (80.0-98.0); Mean Platelet Volume 10.9 fL (9.4-12.3); Monocytes Percent Auto 9.3 % (2-11); Neutrophils Absolute Auto 7.6 x10*3/uL (2.0-8.3); Neutrophils Percent Auto 69.3 % (45-73); Platelet Count 232 X10*3/uL (160-400); Red Blood Count 2.54 X10*6/uL (4.20-5.50); Red Cell Distribution Width 14.6 % (11.0-16.0); White Blood Count 10.9 X10*3/uL (4.8-10.8)
[2024-11-13 00:52] LABS: Appearance Urine Clear; Color Urine Yellow; Glucose Urine UA Negative (Negative); Leukocyte Esterase Urine Trace (Negative); Nitrite Urine Negative (Negative); PH 5.5 (5.0-9.0); UMIC TRIGGER UACC YES; Urine Blood Negative (Negative); Urine Ketones Negative (Negative); Urine Protein Trace mg/dL (Neg-Trace)
[2024-11-13 00:54] LABS: Venous Blood Gas Refer to POC result
[2024-11-13 00:55] LABS: Bacteria Urine None Seen (None Seen); Hyaline Casts Urine 0-2 /LPF (0-2); RBC Urine 0-2 /HPF (0-2); WBC Urine 0-5 /HPF (0-5)
[2024-11-13 00:55] LABS: VBG Base Excess -0.6 mmol/L; VBG HCO3 25 mmol/L (22-26); VBG pCO2 46 mmHg; VBG pH 7.34 (7.32-7.43); VBG pO2 46 mmHg
[2024-11-13 00:59] LABS: INTERNATIONAL NORM RATIO 0.9 (0.9-1.1); Prothrombin Time 10.6 SEC (10.9-12.4)
--- NOTE | 2024-11-13 00:59 | PC.NURSE ---
Fatoumata for 2353 d/c by pharmacy and reentered correctly Plan of care ongoing.
--- NOTE | 2024-11-13 01:01 | PC.NURSE ---
Pt medicated per [facility] Plan of care ongoing.
[2024-11-13 01:05] LABS: Lactic Acid 1.6 mmol/L (0.5-2.0)
[2024-11-13 01:11] LABS: B Type Natriuretic Peptide 155 pg/mL (<100)
[2024-11-13 01:13] LABS: Alanine Aminotransferase 6 U/L (0-31); Albumin Level 3.7 g/dL (3.5-5.0); Anion Gap 15 (12-20); Aspartate Amino Transferase 15 U/L (5-31); Bilirubin Total 0.3 mg/dL (0.0-1.0); Blood Urea Nitrogen 28 mg/dL (9-16); Calcium 8.9 mg/dL (8.4-10.2); Carbon Dioxide 22 mmol/L (22-29); Chloride 110 mmol/L (96-108); Creatinine Clr Calc Pharmacy 38.3; Estimated Glomerular Filt Rate 40; Glucose Random 153 mg/dL (60-115); Magnesium 1.7 mg/dL (1.6-2.6); Sodium 142 mmol/L (135-145); Total Protein 7.3 g/dL (6.5-8.0); Troponin-I High Sensitivity < 2.7 ng/L (<3.5-17.0)
[2024-11-13 01:29] LABS: Influenza A PCR NEGATIVE (Negative); Influenza B PCR NEGATIVE (Negative); Resp Syncy Virus RNA Qual PCR NEGATIVE (Negative); SARS COV2 PCR INHOUSE NEGATIVE (Negative)
[2024-11-13 01:55] LABS: Alkaline Phosphatase 90 U/L (39-117)
[2024-11-13] MEDS: cefTRIAXone sodium 1 GM VIAL IVPUSH ×2 (02:07→21:45)
[2024-11-13] MEDS: Azithromycin 500 MG in 0.9 % Sodium Chloride 250 ML 125 MG IV ×2 (02:08→21:54)
--- NOTE | 2024-11-13 02:08 | PM.IMHP ---
History of Present Illness Date of Service: 11/13/24 Attending physician on admission: Frederic Erazo Chief Complaint: SOB, cough, confusion Patient is a 64-year-old female with a past medical history significant for insulin-dependent diabetes, stage I COPD, depression history I will be overdose currently on methadone, pulmonary embolism, osteomyelitis s/p right BKA, HTN, HLD, CKD 3, chronic anemia who presented to the ED due to chest pain, shortness of breath, cough, confusion for the past 3 days. Cough is nonproductive however shortness of breath is worsening. She describes some lightheadedness and dizziness. It was noted by family members that she has had some confusion which she has also had in the past with pneumonia and electrolyte imbalances. Patient denies any abdominal pain, nausea, vomiting, fever, chills, urinary symptoms including frequency, urgency or dysuria. Review of Systems Constitutional: Constitutional: Denies body ache(s), Denies chills, Denies fatigue, Denies fever(s) and Denies headache(s) Eyes: Eyes: Denies change in vision and Denies photophobia ENT: Denies headache(s), Denies nasal congestion, Denies nasal discharge and Denies sore throat Cardiovascular: Cardiovascular: Reports chest pain, Denies syncope, Denies rapid heart rate, Denies leg edema and Reports dyspnea Respiratory: Respiratory: Reports chest congestion, Denies cough, Reports dyspnea and Denies wheezing Gastrointestinal: Gastrointestinal: Denies abdominal pain, Denies diarrhea, Denies nausea and Denies vomiting Genitourinary: Genitourinary: Denies difficulty voiding, Denies dysuria and Denies urinary urgency Musculoskeletal: Musculoskeletal: Denies myalgias Integumentary/Breasts: Skin/Breast: Denies rash Neurologic: Reports confusion, Denies syncope and Denies headache(s) Psychiatric: Psychiatric: Reports confusion Endocrine: Endocrine: Denies fatigue Hematologic/Lymphatic: Hematologic/Lymphatic: Denies easy bleeding and Denies easy bruising Allergic/Immunologic: Allergic/Immunologic: Denies wheezing [facility] Medical History (Updated 11/13/24 @ 02:14 by Renetta Sanchez PA-C) CKD (chronic kidney disease) stage 3, GFR 30-59 ml/min Diabetic osteomyelitis Below-knee amputation of right lower extremity Osteomyelitis of ankle Charcot foot due to diabetes mellitus Acute hyperglycemia Cellulitis Gastroenteritis Gastritis Constipation Diabetic foot ulcer New onset of congestive heart failure DKA (diabetic ketoacidoses) COVID-19 Dyslipidemia Glaucoma Pulmonary emboli Depression Chronic prescription opiate use Diabetes mellitus Pulmonary nodule Tobacco dependence COPD (chronic obstructive pulmonary disease) Family History Other CVA (cerebral vascular accident) Surgical History History of below-knee amputation of right lower extremity (01/13/22) Cataract extraction status, right eye Cataract extraction status, left eye Hx of cholecystectomy Social History Household Members: Unknown / Unable to assess Housing: Unknown / Unable to assess Housing Other:: hotel Do you presently have visiting nurse or other home services: Yes Unable to assess alcohol history related to: Unknown Alcohol intake: never Comment: refused telesitter Patient Tobacco Use Status: Tobacco use Unknown Tobacco use type: Cigarette Cigarette Packs Per Day: 0.3 Cigarettes Per Day: 6.0 Years Smoked: 50 e-Cigarette/Vaping Use: Currently Using Second Hand Smoke Exposure: No Substance Use Type: Former Substance User Advance Directives: Yes Advance Directives on File: Yes Advance Directives Date on File: 10/20/23 Do you have a plan to hurt others: No Plan service: Yes Current occupational status: disabled Narrative: Recently quit smoking methadone for substance use disorder, no alcohol Meds Allergies Allergy/AdvReac Type Severity Reaction Status Date / Time No Known Allergies Allergy Verified 11/12/24 21:54 Active Medications: Current Medications Acetaminophen (Acetaminophen 325 Mg Tablet) 975 mg PO Q6H PRN PRN Reason: Pain, Mild 1-3,fever,headache Albuterol/Ipratropium (Albuterol/Iprat 2.5/0.5mg 3 Ml Ampul.Neb) 3 ml INHALE RQ4H WHILE AWAKE PRECIOUS Calcium Carbonate (Calcium Carbonate 750 Mg Tab.Chew) 750 mg PO Q4H PRN PRN Reason: Heartburn Ceftriaxone Sodium (Ceftriaxone Sodium 1 Gm Vial) 1 gm IVPUSH Q24H PRECIOUS Enoxaparin Sodium (Enoxaparin Sodium 40 Mg/0.4 Ml Syringe) 40 mg SUBCUT Q24H PRECIOUS Azithromycin 500 mg/ Sodium (Chloride) 250 mls @ 125 mls/hr IV ONCE ONE Stop: 11/13/24 03:28 Azithromycin 500 mg/ Sodium (Chloride) 250 mls @ 125 mls/hr IV Q24H [facility] Magnesium Hydroxide (Milk Of Magnesia 30 Ml Oral.Susp) 30 ml PO DAILY PRN PRN Reason: Constipation Melatonin (Melatonin 3 Mg Tablet) 6 mg PO BEDTIME PRN PRN Reason: Insomnia Methylprednisolone Sodium Succinate (Methylprednisolone Sod Succ 125 Mg Vial) 60 mg IVPUSH Q12H [facility] Sodium Chloride (0.9 % Sodium Chloride Flush 3 Ml Syringe) 3 ml IVFLUSH QSHIFT [facility] Home Medications ?Medication ?Instructions ?Recorded ?Confirmed ?Last Taken ?Type albuterol sulfate 90 mcg/actuation 2 puff PO Q4H PRN Respiratory 04/24/20 01/21/24 10/12/23 History aerosol inhaler Distress aspirin 81 mg tablet,delayed 81 mg PO DAILY 04/24/20 01/21/24 12/29/23 History release atorvastatin 40 mg tablet 40 mg PO DAILY 04/24/20 01/21/24 12/29/23 History bupropion HCl 150 mg tablet,12 hr 150 mg PO BID 04/24/20 01/21/24 12/29/23 History sustained-release lancets 33 gauge #100 ea 04/24/20 01/12/24 10/12/23 History metformin 1,000 mg tablet 1,000 mg PO BIDWM 04/24/20 01/21/24 12/29/23 History omeprazole 20 mg capsule,delayed 20 mg PO DAILY@0630 04/24/20 01/21/24 12/29/23 History release gabapentin 600 mg tablet 600 mg PO TID 05/03/20 01/21/24 12/29/23 History acetaminophen 325 mg capsule 325 mg PO QID PRN Pain 11/02/23 01/21/24 Unknown History insulin aspart (niacinamide) 0 sliding scale dose subcut 12/31/23 01/21/24 12/29/23 History (U-100) 100 unit/mL subcutaneous USEASDIRECTD solution (Fiasp U-100 Insulin) mirtazapine 7.5 mg tablet 7.5 mg PO BEDTIME 12/31/23 01/21/24 12/29/23 History fluticasone furoate 100 1 inh inhalation DAILY 01/01/24 01/21/24 12/29/23 History mcg/actuation blister powder for inhalation (Arnuity Ellipta) Physical Exam Vital Signs and Narrative: Vital Signs: Last Vital Signs Temp 98.3 F 11/13/24 00:00 Pulse 67 11/13/24 00:26 Resp 18 11/13/24 00:26 BP 117/39 L 11/13/24 00:00 Pulse Ox 96 11/13/24 00:00 O2 Del Method Room Air 11/13/24 00:00 BMI result Body Mass Index 34.3 General: AOx3, no acute distress Resp: wheezing bilterally, mostly with expiration. rhonchi. no crackles CVS: RRR +murmur GI: +BS, NT, no distention Skin: Warm, dry Neuro: Cranial nerves II-XII grossly intact bilaterally. Motor grossly intact bilaterally Extremities: No LE pitting edema Psych: Appropriate affect Const: General: confusion Orientation/consciousness: confusion Eyes: Direct Ophthalmoscopy: No photophobia Neuro: General: confusion Results Labs 11/13/24 00:37 11/13/24 00:37 Labs: Laboratory Results - last 24 hr 11/13/24 11/13/24 11/13/24 00:37 00:40 00:50 MCV 91.3 MCH 29.1 MCHC 31.9 RDW 14.6 Plt Count 232 D MPV 10.9 Immature Gran % (Auto) 0.4 Neut % (Auto) 69.3 Lymph % (Auto) 19.2 L [place] % (Auto) 9.3 Eos % (Auto) 1.4 Baso % (Auto) 0.4 Lymph # (Auto) 2.1 [place] # (Auto) 1.0 Eos # (Auto) 0.2 Baso # (Auto) 0.0 Abs Immat Gran (auto) 0.04 H Absolute Neuts (auto) 7.6 Absolute Nucleated RBC 0.000 Nucleated RBC % (auto) 0.0 PT 10.6 L INR 0.9 VBG pH 7.34 VBG pCO2 46 VBG pO2 46 VBG HCO3 25 VBG O2 Saturation 70.0 VBG Base Excess -0.6 Anion Gap 15 Estim Creat Clear Calc 38.3 Estimated GFR 40 Random Glucose 153 H Lactic Acid 1.6 Calcium 8.9 D Magnesium 1.7 Total Bilirubin 0.3 AST 15 ALT 6 Alkaline Phosphatase 90 B-Natriuretic Peptide 155 H Total Protein 7.3 Albumin 3.7 Urine Color Yellow Urine Appearance Clear Urine pH 5.5 Ur Specific [place] 1.020 Urine Protein Trace Urine Glucose (UA) Negative Urine Ketones Negative Urine Blood Negative Urine Nitrite Negative Ur Leukocyte Esterase Trace H Urine RBC 0-2 Urine WBC 0-5 Ur Squamous Epith Cells 3-5 Urine Bacteria None Seen Hyaline Casts 0-2 Influenza Type A (PCR) NEGATIVE Influenza Type B (PCR) NEGATIVE RSV RNA Qual (PCR) NEGATIVE SARS-CoV-2 RNA (RT-PCR) NEGATIVE Assessment and Plan (1) Acute metabolic encephalopathy: Status: Acute (2) COPD exacerbation: Status: Acute (3) Pneumonia: Status: Acute (4) CKD (chronic kidney disease) stage 3, GFR 30-59 ml/min: Status: Chronic (5) Chronic anemia: Status: Chronic (6) Class 1 obesity: Status: Chronic Plan Patient is a 64-year-old female with a past medical history significant for insulin-dependent diabetes, stage I COPD, depression, history opioid overdose currently on methadone, pulmonary embolism, osteomyelitis s/p right BKA, HTN, HLD, CKD 3, chronic anemia who presented to the ED due to chest pain, shortness of breath, cough, confusion for the past 3 days. [facility] records reviewed to compare to last labs. Acute metabolic encephalopathy secondary to pneumonia - WBC 10 point, no tachycardia tachypnea, lactic acid 1.6, blood cultures x2 pending, not sepsis - BNP 155 - chest x-ray with patchy mixed interstitial airspace opacity reflect atypical infectious process or CHF/volume overload - COVID/flu/RSV negative - started on ceftriaxone azithromycin ED, continue - follow CBC and BMP acute on chronic COPD exacerbation - given solumedrol 125mg in ED, continue 60mg Q12H - duonebs q4h while awake CKD3 - Cr at baseline after reviewing [facility] records - monitor BMP chronic anemia - Hgb 7.4, around baseline from [facility] records - no active bleeding - check iron, B12, folate - no need for blood transfusion at this time IDDM - sliding scale insulin - lantus 7U QHS, reduced dose and converted from tresiba - diabetic diet ELIEZER - on methadone, will need dose confirmed in AM HTN - continue home meds HLD - continue home meds depression - continue home meds class 1 obesity - BMI 34.3 - weight loss encouraged Pt With acute metabolic encephalopathy secondary to pneumonia complicated by acute on chronic COPD exacerbation, requiring admission for at least 2 midnights stay for IV antibiotics, steroids and breathing treatments. Quality Stroke Does the patient have a stroke diagnosis?: No VTE Prior VTE?: No VTE Risk Level:: Medical - moderate - high VTE Device Contraindication: Treatment Not Indicated VTE Drug Contraindication: N/A - Med Ordered
--- NOTE | 2024-11-13 02:13 | PC.NURSE ---
Pt medicated per [facility] Plan of care ongoing.
[2024-11-13 02:23] LABS: Iron 13 mcg/dL (30-160); Percent Iron Saturation 6 % (15-50); Total Iron Binding Capacity 228 mcg/dL (228-428); Unsaturated Iron Binding 215 ug/dL
[2024-11-13 02:29] LABS: Glucose, Whole Blood 170 mg/dL (60-115)
[2024-11-13] MEDS: Insulin Glargine,Hum.rec.anlog 100 UNIT/ML 10 ML VIAL 7 UNIT SUBCUT ×2 (02:42→21:55)
--- NOTE | 2024-11-13 02:46 | PC.NURSE ---
Pt medicated per [facility] Plan of care ongoing.
[2024-11-13 03:14] LABS: MANUAL DIFF FLAG NO
[2024-11-13 03:18] LABS: Basophils Percent Auto 0.3 % (0-2); Eosinophils Absolute Auto 0.1 X10*3/uL (0.0-0.4); Eosinophils Percent Auto 0.5 % (0-4); Hematocrit 23.5 % (37.0-47.0); Hemoglobin 7.3 g/dl (12.0-16.0); Imm Gran Abs Auto 0.06 X10*3/uL (0.00-0.03); Imm Gran Pct Auto 0.6 % (0.0-0.4); Lymphocytes Absolute Auto 0.7 X10*3/uL (1.2-4.9); Lymphocytes Percent Auto 7.7 % (20-40); Mean Corpuscular HGB Conc 31.1 g/dl (31.0-35.0); Mean Corpuscular Hemoglobin 28.4 pg (27.0-33.0); Mean Corpuscular Volume 91.4 fL (80.0-98.0); Mean Platelet Volume 10.8 fL (9.4-12.3); Monocytes Absolute Auto 0.3 X10*3/uL (0.1-1.2); Monocytes Percent Auto 3.2 % (2-11); Neutrophils Absolute Auto 8.4 x10*3/uL (2.0-8.3); Neutrophils Percent Auto 87.7 % (45-73); Platelet Count 224 X10*3/uL (160-400); Red Blood Count 2.57 X10*6/uL (4.20-5.50); Red Cell Distribution Width 14.6 % (11.0-16.0); White Blood Count 9.6 X10*3/uL (4.8-10.8)
[2024-11-13 03:31] LABS: Anion Gap 16 (12-20); Blood Urea Nitrogen 28 mg/dL (9-16); Calcium 8.9 mg/dL (8.4-10.2); Carbon Dioxide 20 mmol/L (22-29); Chloride 111 mmol/L (96-108); Creatinine Clr Calc Pharmacy 38.3; Estimated Glomerular Filt Rate 40; Glucose Random 208 mg/dL (60-115); Potassium 4.7 mmol/L (3.3-5.1); Sodium 142 mmol/L (135-145)
[2024-11-13 04:09] LABS: Folate 13.4 ng/mL (> or = 4.0); Vitamin B12 258 pg/mL (200-900)
[2024-11-13 07:39] LABS: Glucose, Whole Blood 159 mg/dL (60-115)
[2024-11-13] MEDS: Insulin Lispro 100 UNIT/ML 3 ML VIAL SUBCUT ×4 (07:48→21:54)
[2024-11-13] MEDS: Enoxaparin Sodium 40 MG/0.4 ML SYRINGE SUBCUT (07:50)
[2024-11-13] MEDS: Iron Sucrose Complex 100 MG in 0.9 % Sodium Chloride 50 ML 220 MG IV (10:54)
[2024-11-13] MEDS: Albuterol/Iprat 2.5/0.5MG 3 ML AMPUL.NEB INHALE ×3 (11:24→19:13)
[2024-11-13 11:46] LABS: Glucose, Whole Blood 231 mg/dL (60-115)
--- NOTE | 2024-11-13 11:53 | PHA.MEDREC ---
Addendum entered by Nancie Adhikari RPh 11/13/24 12:31: reviewed by [facility]. Original Note: Pharmacy Consult ? Medication Reconciliation Pharmacy has completed the medication reconciliation. Spoke with patient to confirm. She reports methadone 45 mg daily, last had yesterday morning, picked up and administered by her visiting nurse, she gets it from [facility] in [place]. She started clopidogrel, last taken yesterday. She finished the Lokelma prescription. She confirmed Fiasp is sliding scale with meals and Tresiba is 15 units at bedtime. She confirmed use of nicotine patches daily at home. She had all of her morning medications yesterday.
[2024-11-13] MEDS: 0.9 % Sodium Chloride Flush 3 ML SYRINGE IVFLUSH ×2 (13:23→21:45)
--- NOTE | 2024-11-13 14:56 | PM.EVENT ---
Event Note Date of Service: 11/13/24 Event Note: Patient is a 64-year-old female with a past medical history significant for insulin-dependent diabetes, stage I COPD, depression, history opioid overdose currently on methadone, pulmonary embolism, osteomyelitis s/p right BKA, HTN, HLD, CKD 3, chronic anemia who presented to the ED due to chest pain, shortness of breath, cough, confusion for the past 3 days. [facility] records reviewed to compare to last labs. Acute metabolic encephalopathy secondary to pneumonia WBC 10 point, no tachycardia tachypnea, lactic acid 1.6, blood cultures x2 pending, not sepsis BNP 155 chest x-ray with patchy mixed interstitial airspace opacity reflect atypical infectious process or CHF/volume overload COVID/flu/RSV negative started on ceftriaxone azithromycin follow CBC and BMP Acute on chronic COPD exacerbation solumedrol 60mg Q12H duonebs q4h while awake Continue supplemental oxygen to keep oxygen saturation greater than 90% CKD3 Cr at baseline after reviewing [facility] records monitor BMP Chronic iron-deficiency anemia Hgb 7.4, around baseline from [facility] records no active bleeding Iron 13 IV iron x3 days IDDM sliding scale insulin lantus 7U QHS, reduced dose and converted from tresiba diabetic diet ELIEZER on methadone, will need dose confirmed in AM HTN continue home meds HLD continue home meds depression continue home meds class 1 obesity BMI 33.0 weight loss encouraged DVT prophylaxis with pneumatic compression boots due to anemia Time Spent With Patient Time: Total time managing care of this patient today ____ minutes.
--- NOTE | 2024-11-13 15:11 | MHC.CM.PN ---
PT REPORTS SHE LIVES WITH HER DAUGHTER AND IS INDEPENDENT WITH SELF CARE SHE HAS DAILY VNA VISITS FOR MED MANAGEMENT FROM [facility] PT USES A [facility] AND [facility] FOR DME HCP ON FILE PCP: KESHAV SHANE IMM DELIVERED DCP: [facility] DAUGHTER TO TRANSPORT
[2024-11-13 16:30] LABS: Glucose, Whole Blood 195 mg/dL (60-115)
[2024-11-13 19:53] LABS: Glucose, Whole Blood 286 mg/dL (60-115)
[2024-11-14] MEDS: ondansetron HCL 4 MG/2 ML VIAL IVPUSH (00:05)
[2024-11-14 03:39] VITALS: BP 157/70; PULSE 71; RESP 18; TEMP 36.4; O2SAT 97
[2024-11-14 06:53] LABS: MANUAL DIFF FLAG NO
[2024-11-14 07:08] LABS: Basophils Percent Auto 0.1 % (0-2); Hematocrit 25.5 % (37.0-47.0); Hemoglobin 8.2 g/dl (12.0-16.0); Imm Gran Abs Auto 0.14 X10*3/uL (0.00-0.03); Imm Gran Pct Auto 1.4 % (0.0-0.4); Lymphocytes Absolute Auto 0.6 X10*3/uL (1.2-4.9); Lymphocytes Percent Auto 5.6 % (20-40); Mean Corpuscular HGB Conc 32.2 g/dl (31.0-35.0); Mean Corpuscular Hemoglobin 29.2 pg (27.0-33.0); Mean Corpuscular Volume 90.7 fL (80.0-98.0); Mean Platelet Volume 11.2 fL (9.4-12.3); Monocytes Absolute Auto 0.4 X10*3/uL (0.1-1.2); Monocytes Percent Auto 3.5 % (2-11); Neutrophils Absolute Auto 9.2 x10*3/uL (2.0-8.3); Neutrophils Percent Auto 89.4 % (45-73); Platelet Count 260 X10*3/uL (160-400); Red Blood Count 2.81 X10*6/uL (4.20-5.50); Red Cell Distribution Width 14.3 % (11.0-16.0); White Blood Count 10.2 X10*3/uL (4.8-10.8)
[2024-11-14 07:14] LABS: Anion Gap 15 (12-20); Blood Urea Nitrogen 25 mg/dL (9-16); Calcium 9.3 mg/dL (8.4-10.2); Carbon Dioxide 20 mmol/L (22-29); Chloride 109 mmol/L (96-108); Creatinine Clr Calc Pharmacy 49.8; Estimated Glomerular Filt Rate 56; Glucose Random 301 mg/dL (60-115); Potassium 4.7 mmol/L (3.3-5.1); Sodium 139 mmol/L (135-145)
[2024-11-14 07:26] VITALS: BP 144/74; PULSE 71; RESP 16; TEMP 36.4; O2SAT 96
[2024-11-14 07:37] LABS: Glucose, Whole Blood 280 mg/dL (60-115)
[2024-11-14] MEDS: Insulin Lispro 100 UNIT/ML 3 ML VIAL SUBCUT ×2 (08:08→11:55)
--- NOTE | 2024-11-14 08:24 | P.DS_ITS ---
DS: Providers Provider Date of Service: 11/14/24 Date of admission: 11/13/24 02:29 Date of discharge: 11/14/24 Primary care physician: Kevon Herring MD DS: Diagnosis Discharge Diagnosis (1) Acute metabolic encephalopathy: Status: Acute (2) COPD exacerbation: Status: Acute (3) Pneumonia: Status: Acute (4) CKD (chronic kidney disease) stage 3, GFR 30-59 ml/min: Status: Chronic (5) Chronic anemia: Status: Chronic (6) Class 1 obesity: Status: Chronic DS: Summary Hospital Course Hospital Course: History and physical as per admitting provider. Patient is a 64-year-old female with a past medical history significant for insulin-dependent diabetes, stage I COPD, depression history I will be overdose currently on methadone, pulmonary embolism, osteomyelitis s/p right BKA, HTN, HLD, CKD 3, chronic anemia who presented to the ED due to chest pain, shortness of breath, cough, confusion for the past 3 days. Cough is nonproductive however shortness of breath is worsening. She describes some lightheadedness and dizziness. It was noted by family members that she has had some confusion which she has also had in the past with pneumonia and electrolyte imbalances. Patient denies any abdominal pain, nausea, vomiting, fever, chills, urinary symptoms including frequency, urgency or dysuria. 64-year-old woman treated for acute metabolic encephalopathy secondary to pneumonia, no sepsis. Chest x-ray showing patchy mixed interstitial airspace opacities, COVID, flu and RSV negative. Started on IV ceftriaxone and azithromycin. Plan will be to discharge patient with a few more days of Ceftin and azithromycin. Patient was not requiring oxygen and is not hypoxic. She was also noted to have COPD exacerbation as well and treated with IV steroids, DuoNebs. Plan will be to discharge with short prednisone burst. CKD stage 3. At baseline Chronic iron-deficiency anemia. Around baseline from [facility] records. Iron noted to be 13, received 2 doses of IV iron and we will continue iron supplementation. Should follow up with primary care provider for management of this. Insulin-dependent diabetes mellitus. Continue home medications History of substance abuse disorder. Continue methadone Hypertension. Continue home medications Depression. Continue home medications Obesity class 1. BMI 33.0. Discussed importance of weight management as this may be contributing to worsening of other comorbidities Time Attestation Discharge Coordination Time (in mins): 42 Quality: Safe Use of Opioids Does Pt have an Active Cancer Diagnosis on the Problem List?: No Quality: Stroke Does the patient have a stroke diagnosis?: No Physical Exam Vital Signs: Vital Signs: Last Vital Signs Temp 97.6 F 11/14/24 07:26 Pulse 71 11/14/24 07:26 Resp 16 11/14/24 07:26 BP 144/74 H 11/14/24 07:26 Pulse Ox 96 11/14/24 07:26 O2 Del Method Room Air 11/14/24 07:26 BMI result Body Mass Index 32.9 Appearing in no acute distress head is normocephalic atraumatic eyes pupils are PERRLA sclera is anicteric mouth throat mucous membranes are intact and moist neck is supple no lymphadenopathy, no JVD noted lung sounds are clear to auscultation heart regular rate rhythm, clear S1, S2 positive bowel sounds, abdomen is soft, nontender neuro patient is alert x3, no focal deficits DS: Data Data Completed and Pending Completed studies during hospitalization [Text1]: Procedures Assistance with Respiratory Ventilation, Less than 24 Consecutive Hours, Continuous Positive Airway Pressure (01/20/24) Compression of Right Foot using Pressure Dressing (05/28/20) Detachment at Right Lower Leg, Mid, Open Approach (01/11/22) Excision of Left Shoulder Joint, Open Approach (10/14/23) Insertion of Endotracheal Airway into Trachea, Via Natural or Artificial Opening (01/20/24) Insertion of Infusion Device into Right Basilic Vein, Percutaneous Approach (01/20/24) Insertion of Infusion Device into Superior Vena Cava, Percutaneous Approach (01/20/24) Introduction of Vasopressor into Peripheral Vein, Percutaneous Approach (01/20/24) Respiratory Ventilation, 24-96 Consecutive Hours (01/20/24) Transfusion of Nonautologous Red Blood Cells into Peripheral Vein, Percutaneous Approach (01/12/24) Ultrasonography of Superior Vena Cava, Guidance (01/20/24) Labs on day of discharge: Laboratory Results - last 24 hr 11/13/24 11/13/24 11/13/24 11:42 16:27 19:48 WBC RBC Hgb Hct MCV MCH MCHC RDW Plt Count MPV Immature Gran % (Auto) Neut % (Auto) Lymph % (Auto) [place] % (Auto) Eos % (Auto) Baso % (Auto) Lymph # (Auto) [place] # (Auto) Eos # (Auto) Baso # (Auto) Abs Immat Gran (auto) Absolute Neuts (auto) Absolute Nucleated RBC Nucleated RBC % (auto) Sodium Potassium Chloride Carbon Dioxide Anion Gap BUN Creatinine Estim Creat Clear Calc Estimated GFR POC Glucose 231 H 195 H 286 H Random Glucose Calcium 11/14/24 11/14/24 06:16 07:31 WBC 10.2 RBC 2.81 L Hgb 8.2 L Hct 25.5 L MCV 90.7 MCH 29.2 MCHC 32.2 RDW 14.3 Plt Count 260 MPV 11.2 Immature Gran % (Auto) 1.4 H Neut % (Auto) 89.4 H Lymph % (Auto) 5.6 L [place] % (Auto) 3.5 Eos % (Auto) 0.0 Baso % (Auto) 0.1 Lymph # (Auto) 0.6 L [place] # (Auto) 0.4 Eos # (Auto) 0.0 Baso # (Auto) 0.0 Abs Immat Gran (auto) 0.14 H Absolute Neuts (auto) 9.2 H Absolute Nucleated RBC 0.000 Nucleated RBC % (auto) 0.0 Sodium 139 Potassium 4.7 Chloride 109 H Carbon Dioxide 20 L Anion Gap 15 BUN 25 H Creatinine 1.00 Estim Creat Clear Calc 49.8 Estimated GFR 56 POC Glucose 280 H Random Glucose 301 H Calcium 9.3 Preliminary micro results at discharge 11/13/24 01:06 Blood Culture - Preliminary Blood - Venous No growth after 24 hours. 11/13/24 01:06 Blood Culture - Preliminary Blood - Venous No growth after 24 hours. Discharge Plan Discharge Anticipated Discharge Date/Time: 11/14/24 08:07 Patient Disposition: Home, Self-Care Discharge Diagnosis: Acute encephalopathy secondary to pneumonia Acute on chronic COPD exacerbation Referrals: Kevon Herring MD [Primary Care Provider] - 1 Week Discharge Medications: New prednisone 10 mg tablet 40 mg PO DIRECTED 4 Days Qty: 16 0RF Rx Instructions: Take 40 mg daily for 4 days cefuroxime axetil 500 mg tablet 500 mg PO BID Qty: 8 0RF azithromycin 500 mg tablet 500 mg PO DAILY 4 Days Qty: 4 0RF Continued (BEV) saad Samuel See Rx Instructions .ROUTE .MEDSUPPLY Qty: 1 0RF Rx Instructions: As directed lisinopril 40 mg tablet 40 mg PO DAILY Qty: 90 0RF mirtazapine 7.5 mg tablet 7.5 mg PO BEDTIME Fiasp U-100 Insulin 100 unit/mL solution 1 sliding scale dose subcut USEASDIRECTD Protocol: Insulin Correction Scale Less than or equal to 110 ---- Give (units): 0 111 to 150 Give (units): 0 151 to 200 Give (units): 2 201 to 250 Give (units): 4 251 to 300 Give (units): 6 301 to 350 Give (units): 8 Greater than 350 Give (units): 10 Call MD if Blood Glucose > : 350 nicotine 14 mg/24 hr Patch 24 Hour 14 mg transdermal DAILY Qty: 30 0RF insulin degludec [Tresiba FlexTouch U-100] 100 unit/mL (3 mL) insulin pen 15 unit subcut BEDTIME Qty: 15 0RF clopidogrel 75 mg tablet 75 mg PO DAILY amlodipine 10 mg tablet 10 mg PO DAILY docusate sodium [Colace] 100 mg capsule 100 mg PO DAILY PRN (Reason: Constipation) methadone [Methadose] 10 mg/mL concentrate 45 mg PO DAILY Rx Instructions: Partial Fill upon patient request. gabapentin 600 mg tablet 600 mg PO TID (DME) lancets 33 gauge misc See Rx Instructions Not Applicable TID Qty: 100 Rx Instructions: As directed albuterol sulfate 90 mcg/actuation HFA aerosol inhaler 2 puff PO Q4H PRN (Reason: Respiratory Distress) omeprazole 20 mg capsule,delayed release(DR/EC) 20 mg PO DAILY@0630 metformin 1,000 mg tablet 1,000 mg PO BIDWM aspirin 81 mg tablet,delayed release (DR/EC) 81 mg PO DAILY bupropion HCl 150 mg tablet sustained-release 12 hr 150 mg PO BID atorvastatin 40 mg tablet 40 mg PO DAILY acetaminophen 325 mg capsule 325 mg PO QID PRN (Reason: Pain) Discharge Orders: Discharge Order (Routine); Ordered 11/14/24 Ordered By: Lucille Perez Diet: Advance to usual diet Activity on Discharge: As tolerated Stand Alone Forms: Patient Portal Discharge page Print Language: Icelandic Care Plan Goals: Complete antibiotic and steroid course Health Concerns: Acute encephalopathy secondary to pneumonia Acute on chronic COPD exacerbation Plan of Treatment: Follow up with primary care provider as needed Take all medications as prescribed Assessment: See discharge summary
[2024-11-14] MEDS: Iron Sucrose Complex 100 MG in 0.9 % Sodium Chloride 50 ML 220 MG IV (09:26)
[2024-11-14] MEDS: Enoxaparin Sodium 40 MG/0.4 ML SYRINGE SUBCUT (09:28)
[2024-11-14] MEDS: 0.9 % Sodium Chloride Flush 3 ML SYRINGE IVFLUSH (09:44)
--- NOTE | 2024-11-14 10:35 | HE.PHANOTE ---
Re Methadone Pt receives 45mg daily from [facility]. Last dose was 11/11/2024
[2024-11-14 11:12] VITALS: BP 159/70; PULSE 70; RESP 16; TEMP 36.4; O2SAT 95
[2024-11-14 11:21] LABS: Glucose, Whole Blood 291 mg/dL (60-115)
--- NOTE | 2024-11-14 12:51 | MHC.CM.PN ---
Per MD rounds patient medically cleared for dc home w/ resumption of [facility] for methadone delivery. VNA updated of sd. Daughter will provide transport.
[2024-11-14 15:56] LABS: Glucose, Whole Blood 82 mg/dL (60-115)
[2024-11-14 16:00] VITALS: BP 150/63; PULSE 64; RESP 16; TEMP 36.6; O2SAT 96
== END 2024-11-14 17:25 | disposition home or self-care (01) | DRG 193 ==
LOC: HO.ED 11-13 01:34 → HO.EDOVER 11-13 02:31 → HO.S3 11-13 08:50
PROVIDERS: Admitting Provider Physician Assistant; Emergency Provider Emergency Medicine Emergency Medical Services; PCP Internal Medicine; Visit Provider Nurse Practitioner Acute Care
DX: J18.9 Pneumonia, unspecified organism (principal); G93.41 Metabolic encephalopathy; Z59.01 Sheltered homelessness; J44.0 Chronic obstructive pulmonary disease with (acute) lower respiratory infection; J44.1 Chronic obstructive pulmonary disease with (acute) exacerbation; F11.20 Opioid dependence, uncomplicated; Z89.511 Acquired absence of right leg below knee; I12.9 Hypertensive chronic kidney disease with stage 1 through stage 4 chronic kidney disease, or unspecified chronic kidney disease; N18.30 Chronic kidney disease, stage 3 unspecified; F32.A Depression, unspecified; E11.22 Type 2 diabetes mellitus with diabetic chronic kidney disease; D50.9 Iron deficiency anemia, unspecified; E66.811 Obesity, class 1; Z71.3 Dietary counseling and surveillance; Z68.34 Body mass index [BMI] 34.0-34.9, adult; E78.5 Hyperlipidemia, unspecified; Z20.822 Contact with and (suspected) exposure to COVID-19; Z87.891 Personal history of nicotine dependence; Z79.4 Long term (current) use of insulin; Z79.02 Long term (current) use of antithrombotics/antiplatelets; Z79.82 Long term (current) use of aspirin; Z79.899 Other long term (current) drug therapy
CPT/HCPCS: 0241U; 36415; 70450; 71045; 80048; 80053; 81001; 82607; 82746; 82803; 82947; 83540; 83605; 83735; 83880; 84484; 85025; 85610; 87040; 93005; 94640; 99285; J0456; J0696; J1650; J1756; J2405; J2919

== ENCOUNTER → 2024-11-12 23:35 | Outpatient (BNV) | payer MEDICARE, MEDICAID, SELFPAY | PROVIDERS: Emergency Provider Emergency Medicine Emergency Medical Services; PCP Internal Medicine; Visit Provider Radiology Diagnostic Radiology | DX: R06.02 Shortness of breath (principal) | CPT/HCPCS: 71045 ==

== ENCOUNTER → 2024-11-12 | Outpatient (BNV) | payer MEDICARE, MEDICAID, SELFPAY | PROVIDERS: Admitting Provider Physician Assistant; Emergency Provider Emergency Medicine Emergency Medical Services; PCP Internal Medicine; Visit Provider Internal Medicine | DX: R94.31 Abnormal electrocardiogram [ECG] [EKG] (principal); G93.41 Metabolic encephalopathy | CPT/HCPCS: 93010 ==

== ENCOUNTER → 2024-11-13 02:28 | Outpatient (BNV) | payer MEDICARE, MEDICAID, SELFPAY | PROVIDERS: Admitting Provider Physician Assistant; Emergency Provider Emergency Medicine Emergency Medical Services; PCP Internal Medicine; Visit Provider Radiology Diagnostic Radiology | DX: R41.0 Disorientation, unspecified (principal) | CPT/HCPCS: 70450 ==

== ENCOUNTER → 2024-11-13 02:29 | Outpatient (BNV) | payer MEDICARE, MEDICAID, SELFPAY | PROVIDERS: Admitting Provider Physician Assistant; Emergency Provider Emergency Medicine Emergency Medical Services; PCP Internal Medicine; Visit Provider Nurse Practitioner Acute Care | DX: G93.41 Metabolic encephalopathy (principal); J44.1 Chronic obstructive pulmonary disease with (acute) exacerbation; J18.9 Pneumonia, unspecified organism; N18.30 Chronic kidney disease, stage 3 unspecified; D64.9 Anemia, unspecified; E66.811 Obesity, class 1 | CPT/HCPCS: 99223; 99499 ==

== ENCOUNTER 2024-12-24 20:56 | Emergency (ER) | payer MEDICARE, MEDICAID, SELFPAY ==
[2024-12-24 21:04] VITALS: BP 169/61; PULSE 87; RESP 16; TEMP 37.1; O2SAT 96
[2024-12-24 21:06] VITALS: BP 165/64; PULSE 94; O2SAT 98; BMI 34.4
--- OUTSIDE RECORDS SUMMARY | 2024-12-24 21:33 | XMS_ITS | Clinical Summary ---
Author Organization [employer] Address [address] [place] [address] [address] [place] [address] Care Team Providers Care Sql Server Developer Name Role Phone Unavailable Primary Care Provider [...] (BEFORE BREAKFAST) 1 Active [employer] Short Pen [place] 31G X 8 MM misc USE FIVE [...] Active cholecalcifero l (Vitamin D-3) 50 MCG (1999 [place]) tablet TAKE 1 TABLET BY MOUTH [...] lung disease 11/27/2011 Pure hypercholesterolemia 11/27/2011 Immunizations Immunization Administration Dates Next Due Hep B, adult [...] Panel 1960 SDOH Screening 1960 Sigmoidoscopy 1960 Disability Screening 1960 Diabetes: Foot Exam 01/06/1970 Eye Exam [...] Diabetes: Hemoglobin A1C 01/20/2024 10/21/2023 COVID-19 Vaccine ( - season) 2024 10/13/2020 Influenza Vaccine (Season Ended) 2025 04/08/2023, 03/06/2020, 07/04/2019, Additional history exists Hepatitis B [...] patient's age to complete this topic Meningococcal B Vaccine Aged Out No l onger eligible based on patient's age to complete this topic Meningococcal Vaccine Aged Out No lencho júnior eligible based on patient's age to complete this topic RSV under 20 months Aged Out No longe r eligible based on patient's age to complete this topic Rotavirus Vaccines Aged Out No longer eligible based on patient's age to complete this topic Insurance [facility] STANDARD * Guarantor: Lazara Driscoll Account Type Relation to Patient Date of Phone Billing Address Personal/Family Self [address]
[2024-12-24 22:00] VITALS: BP 99/55; PULSE 76; RESP 13; TEMP 36.6; O2SAT 96
[2024-12-24 22:44] LABS: Basophils Percent Auto 0.4 % (0-2); Eosinophils Absolute Auto 0.1 X10*3/uL (0.0-0.4); Eosinophils Percent Auto 0.8 % (0-4); Hematocrit 25.6 % (37.0-47.0); Hemoglobin 8.3 g/dl (12.0-16.0); Imm Gran Abs Auto 0.03 X10*3/uL (0.00-0.03); Imm Gran Pct Auto 0.3 % (0.0-0.4); Lymphocytes Absolute Auto 1.7 X10*3/uL (1.2-4.9); Lymphocytes Percent Auto 18.2 % (20-40); MANUAL DIFF FLAG NO; Mean Corpuscular HGB Conc 32.4 g/dl (31.0-35.0); Mean Corpuscular Hemoglobin 29.4 pg (27.0-33.0); Mean Corpuscular Volume 90.8 fL (80.0-98.0); Mean Platelet Volume 9.9 fL (9.4-12.3); Monocytes Absolute Auto 0.8 X10*3/uL (0.1-1.2); Monocytes Percent Auto 8.4 % (2-11); Neutrophils Absolute Auto 6.8 x10*3/uL (2.0-8.3); Neutrophils Percent Auto 71.9 % (45-73); Platelet Count 217 X10*3/uL (160-400); Red Blood Count 2.82 X10*6/uL (4.20-5.50); Red Cell Distribution Width 13.5 % (11.0-16.0); White Blood Count 9.4 X10*3/uL (4.8-10.8)
[2024-12-24 23:01] LABS: Alanine Aminotransferase 8 U/L (0-31); Albumin Level 3.9 g/dL (3.5-5.0); Alkaline Phosphatase 107 U/L (39-117); Anion Gap 11 (12-20); Aspartate Amino Transferase 13 U/L (5-31); Bilirubin Total 0.1 mg/dL (0.0-1.0); Blood Urea Nitrogen 29 mg/dL (9-16); Calcium 8.9 mg/dL (8.4-10.2); Carbon Dioxide 21 mmol/L (22-29); Chloride 112 mmol/L (96-108); Creatinine Clr Calc Pharmacy 30.3; Estimated Glomerular Filt Rate 31; Glucose Random 149 mg/dL (60-115); Potassium 6.2 mmol/L (3.3-5.1); Sodium 138 mmol/L (135-145); Total Protein 6.8 g/dL (6.5-8.0)
--- NOTE | 2024-12-24 23:10 | ED.GENADULT ---
HPI - General Adult General Chief complaint: Wound/Laceration Stated complaint: AMS, ?high potassium Time Seen by Provider: 12/24/24 22:57 Source: patient Mode of arrival: EMS Limitations: no limitations History of Present Illness ED Provider: Dr. Jose Martin HPI narrative: 64-year-old female with a history of diabetes mellitus, COPD, depression, opiate overdose, pneumonia, pulmonary embolism, osteomyelitis, chronic kidney disease right [id number] amputation who presents to the emergency department by ambulance for evaluation of bleeding from her left 2nd toe. Patient states that she noticed a piece of skin on her right great toe and pulled it off but it turned out to be here toenail. After she pulled off her toenail she had bleeding and was sent to the emergency department for evaluation. Patient is awake and alert, answering questions appropriately. She states that she was recently admitted for confusion and a high potassium. In reviewing her record, patient was admitted 11/12/2024 for confusion secondary to pneumonia. During that admission her potassiums were normal. The patient states that if it was not for the bleeding from her toe she would have not come to emergency department today. Related Data Home Medications ?Medication ?Instructions ?Recorded ?Confirmed albuterol sulfate 90 mcg/actuation 2 puff PO Q4H PRN Respiratory 04/24/20 11/13/24 aerosol inhaler Distress aspirin 81 mg tablet,delayed 81 mg PO DAILY 04/24/20 11/13/24 release atorvastatin 40 mg tablet 40 mg PO DAILY 04/24/20 11/13/24 bupropion HCl 150 mg tablet,12 hr 150 mg PO BID 04/24/20 11/13/24 sustained-release lancets 33 gauge #100 ea 04/24/20 01/12/24 metformin 1,000 mg tablet 1,000 mg PO BIDWM 04/24/20 11/13/24 omeprazole 20 mg capsule,delayed 20 mg PO DAILY@0630 04/24/20 11/13/24 release gabapentin 600 mg tablet 600 mg PO TID 05/03/20 11/13/24 acetaminophen 325 mg capsule 325 mg PO QID PRN Pain 11/02/23 11/13/24 insulin aspart (niacinamide) 1 sliding scale dose subcut 12/31/23 11/13/24 (U-100) 100 unit/mL subcutaneous USEASDIRECTD solution (Fiasp U-100 Insulin) mirtazapine 7.5 mg tablet 7.5 mg PO BEDTIME 12/31/23 11/13/24 amlodipine 10 mg tablet 10 mg PO DAILY 11/13/24 11/13/24 clopidogrel 75 mg tablet 75 mg PO DAILY 11/13/24 11/13/24 docusate sodium 100 mg capsule 100 mg PO DAILY PRN Constipation 11/13/24 11/13/24 (Colace) methadone 10 mg/mL oral 45 mg PO DAILY 11/13/24 11/14/24 concentrate (Methadose) Previous Rx's ?Medication ?Instructions ?Recorded walker #1 ea 10/11/20 lisinopril 40 mg tablet 40 mg PO DAILY #90 tabs 12/29/23 nicotine 14 mg/24 hr daily 14 mg transdermal DAILY #30 ea 01/04/24 transdermal patch insulin degludec 100 unit/mL (3 15 unit (0.15 mL) subcut BEDTIME 01/17/24 mL) subcutaneous pen (Tresiba #15 mL FlexTouch U-100 insulin) azithromycin 500 mg tablet 500 mg PO DAILY 4 days #4 tabs 11/14/24 cefuroxime axetil 500 mg tablet 500 mg PO BID #8 tabs 11/14/24 prednisone 10 mg tablet 40 mg (4 x 10 mg) PO DIRECTED 4 11/14/24 days #16 tabs sodium zirconium cyclosilicate 10 10 g PO DAILY #30 ea 12/24/24 gram oral powder packet (Lokelma) Allergies Allergy/AdvReac Type Severity Reaction Status Date / Time No Known Allergies Allergy Verified 12/24/24 21:09 Review of Systems Review of Systems: Yes all other systems are reviewed and are negative [facility] Past Medical History Medical History (Updated 12/24/24 @ 23:52 by Jose Martin MD) Chronic anemia Class 1 obesity Acute metabolic encephalopathy CKD (chronic kidney disease) stage 3, GFR 30-59 ml/min Diabetic osteomyelitis Below-knee amputation of right lower extremity Osteomyelitis of ankle Charcot foot due to diabetes mellitus Acute hyperglycemia Cellulitis Gastroenteritis Gastritis Constipation Diabetic foot ulcer New onset of congestive heart failure DKA (diabetic ketoacidoses) COVID-19 Dyslipidemia Glaucoma Pulmonary emboli Depression Chronic prescription opiate use Diabetes mellitus Pulmonary nodule Tobacco dependence COPD (chronic obstructive pulmonary disease) Surgical History History of below-knee amputation of right lower extremity (01/13/22) Cataract extraction status, right eye Cataract extraction status, left eye Hx of cholecystectomy Family History Family History Other CVA (cerebral vascular accident) Social History Social History Household Members: Children Housing: Apartment Housing Other:: hotel Do you presently have visiting nurse or other home services: Yes Unable to assess alcohol history related to: Unknown Alcohol intake: never Comment: refused telesitter Patient Tobacco Use Status: Former Tobacco user Tobacco use type: Cigarette Cigarette Packs Per Day: 0.3 Cigarettes Per Day: 6.0 Years Smoked: 50 Smoked in Last 30 Days: No e-Cigarette/Vaping Use: Currently Using Second Hand Smoke Exposure: No Substance Use Type: Former Substance User Advance Directives: Yes Advance Directives on File: Yes Advance Directives Date on File: 10/20/23 Do you have a plan to hurt others: No Plan service: No Current occupational status: disabled Physical Exam ED Vital Signs: Vital Signs - 24 hr 12/24/24 21:04 12/24/24 22:00 Temperature 98.8 F 97.8 F Pulse Rate 87 76 Respiratory Rate 16 13 Blood Pressure 169/61 H 99/55 L Pulse Oximetry 96 96 Oxygen Delivery Method Room Air Room Air BMI result Body Mass Index 34.4 Vital signs revealed elevated blood pressure of 169/61 otherwise unremarkable Exam: General: Awake, alert in no distress Head: Normocephalic, atraumatic EENT: PERRL, Lids normal, sclera normal, conjunctiva normal, nose normal , ears normal, throat without erythema or exudates Neck: Supple, no adenopathy Lung: breath sounds symmetric, no wheezing, rales or rhonchi Chest: symmetric movement, nontender Heart: regular rate and rhythm, normal S1, S2 no murmurs or rubs Abdomen: soft, non-tender, nondistended, normal bowel sounds Back: no vertebral tenderness, no CVAT Extremities: Avulsed toenail from left 2nd toe, not actively bleeding Neuro: Awake, alert, oriented, normal speech, cranial nerves intact, moves all extremities symmetrically Psych: Pleasant, cooperative Medical Decision Making Medical Decision Making [facility] Narrative: 64-year-old female with a history of diabetes mellitus, COPD, depression, opiate overdose, pneumonia, pulmonary embolism, osteomyelitis, chronic kidney disease right [id number] amputation who presents to the emergency department by ambulance for evaluation of bleeding from her left 2nd toe. Patient states that she noticed a piece of skin on her right great toe and pulled it off but it turned out to be here toenail. After she pulled off her toenail she had bleeding and was sent to the emergency department for evaluation. Patient is awake and alert, answering questions appropriately. She states that she was recently admitted for confusion and a high potassium. In reviewing her record, patient was admitted 11/12/2024 for confusion secondary to pneumonia. During that admission her potassiums were normal. The patient states that if it was not for the bleeding from her toe she would have not come to emergency department today. Vital signs revealed an elevated blood pressure of 169/61 otherwise unremarkable. Physical examination did reveal bleeding from her left great toe where she peeled off her toenail otherwise exam is unremarkable. Differential diagnosis: ?Includes but is not limited to bleeding from toenail, anemia, electrolyte abnormalities, renal failure Course: 23:41 My independent interpretation patient's laboratory evaluation is as follows: Chronic normocytic anemia with an H&H of 8.3 and 25.6. Potassium elevated 6.2. Chloride elevated 112. Bicarb low 21. BUN creatinine elevated 29 and 1.68 with a low GFR of 30.3-she has had similar low GFR is in the past.. Glucose elevated 159. Patient's 12 EKG revealed no significant T-wave abnormalities which is reassuring. Patient does have an elevated potassium above her baseline. She was given Lokelma 10 mg orally. Patient does not appear to be fluid overloaded and I do not think that she needs to be admitted for her high potassium. Patient was given a prescription for Lokelma 10 mg daily. Admission/Observation Consideration of admission/observation: Escalation of care including admission/observation considered (Yes) Lab Data [facility] Lab Attestation statement: I reviewed the patient's lab results. 12/24/24 22:39 12/24/24 22:39 Labs: Lab Results 12/24/24 Range/Units 22:39 WBC 9.4 (4.8-10.8) X10*3/uL RBC 2.82 L (4.20-5.50) X10*6/uL Hgb 8.3 L (12.0-16.0) g/dl Hct 25.6 L (37.0-47.0) % MCV 90.8 (80.0-98.0) fL MCH 29.4 (27.0-33.0) pg MCHC 32.4 (31.0-35.0) g/dl RDW 13.5 (11.0-16.0) % Plt Count 217 (160-400) X10*3/uL MPV 9.9 (9.4-12.3) fL Immature Gran % (Auto) 0.3 (0.0-0.4) % Neut % (Auto) 71.9 (45-73) % Lymph % (Auto) 18.2 L (20-40) % Hale % (Auto) 8.4 (2-11) % Eos % (Auto) 0.8 (0-4) % Baso % (Auto) 0.4 (0-2) % Lymph # (Auto) 1.7 (1.2-4.9) X10*3/uL Hale # (Auto) 0.8 (0.1-1.2) X10*3/uL Eos # (Auto) 0.1 (0.0-0.4) X10*3/uL Baso # (Auto) 0.0 (0.0-0.2) X10*3/uL Abs Immat Gran (auto) 0.03 (0.00-0.03) X10*3/uL Absolute Neuts (auto) 6.8 (2.0-8.3) x10*3/uL Absolute Nucleated RBC 0.000 (0.0-0.012) X10*3/uL Nucleated RBC % (auto) 0.0 (0.0-0.2) /100WBC Sodium 138 (135-145) mmol/L Potassium 6.2 H* D (3.3-5.1) mmol/L Chloride 112 H (96-108) mmol/L Carbon Dioxide 21 L (22-29) mmol/L Anion Gap 11 L (12-20) BUN 29 H (9-16) mg/dL Creatinine 1.68 H (0.5-1.4) mg/dL Estim Creat Clear Calc 30.3 Estimated GFR 31 Random Glucose 149 H (60-115) mg/dL Calcium 8.9 (8.4-10.2) mg/dL Total Bilirubin 0.1 (0.0-1.0) mg/dL AST 13 (5-31) U/L ALT 8 (0-31) U/L Alkaline Phosphatase 107 (39-117) U/L Total Protein 6.8 (6.5-8.0) g/dL Albumin 3.9 (3.5-5.0) g/dL Independent Interpretation I performed an independent interpretation of an: EKG Interpretation: My independent interpretation patient's 12 EKG done on 12/24/2024 at 23:58 hours was interpreted by me as follows: Normal sinus rhythm rate of 63, normal ID interval fentanyl, QRS duration QTC interval, no ST segment elevation, no ST segment depression, no peaked T-waves, no PACs, no PVCs-this is a normal EKG Discharge Plan Discharge Clinical Impression: Acute hyperkalemia Injury of toenail Qualifiers: Encounter type: initial encounter Laterality: left Qualified Code(s): S99.922A - Unspecified injury of left foot, initial encounter Patient Disposition: Home, Self-Care Instructions: Potassium Content of Foods List (ED), Hyperkalemia (ED) Additional Instructions: Apply bacitracin twice a day to your left 2nd toe and keep the toe covered with a bandage. Your potassium was high at 6.2 (normal is 3.3-5.1) You were treated with Lokelma 10 mg orally. This is a medication that lowers your potassium. I am starting you on Lokelma 10 mg daily. Keep your appointment with the digital hardware design engineer/kidney doctor. Continue taking your other medications as prescribed by your providers. Follow-up with your doctor in 2 days. Please return to the emergency department if your symptoms get worse or if you develop any symptoms that are concerning to you. Prescriptions: New Lokelma 10 gram powder in packet 10 g PO DAILY Qty: 30 0RF No Action (DME) walker Misc See Rx Instructions .ROUTE .MEDSUPPLY Qty: 1 0RF Rx Instructions: As directed lisinopril 40 mg tablet 40 mg PO DAILY Qty: 90 0RF mirtazapine 7.5 mg tablet 7.5 mg PO BEDTIME Fiasp U-100 Insulin 100 unit/mL solution 1 sliding scale dose subcut USEASDIRECTD Protocol: Insulin Correction Scale Less than or equal to 110 ---- Give (units): 0 111 to 150 Give (units): 0 151 to 200 Give (units): 2 201 to 250 Give (units): 4 251 to 300 Give (units): 6 301 to 350 Give (units): 8 Greater than 350 Give (units): 10 Call MD if Blood Glucose > : 350 nicotine 14 mg/24 hr Patch 24 Hour 14 mg transdermal DAILY Qty: 30 0RF insulin degludec [Tresiba FlexTouch U-100] 100 unit/mL (3 mL) insulin pen 15 unit subcut BEDTIME Qty: 15 0RF clopidogrel 75 mg tablet 75 mg PO DAILY amlodipine 10 mg tablet 10 mg PO DAILY docusate sodium [Colace] 100 mg capsule 100 mg PO DAILY PRN (Reason: Constipation) methadone [Methadose] 10 mg/mL concentrate 45 mg PO DAILY Rx Instructions: Partial Fill upon patient request. prednisone 10 mg tablet 40 mg PO DIRECTED 4 Days Qty: 16 0RF Rx Instructions: Take 40 mg daily for 4 days cefuroxime axetil 500 mg tablet 500 mg PO BID Qty: 8 0RF azithromycin 500 mg tablet 500 mg PO DAILY 4 Days Qty: 4 0RF gabapentin 600 mg tablet 600 mg PO TID (DME) lancets 33 gauge misc See Rx Instructions Not Applicable TID Qty: 100 Rx Instructions: As directed albuterol sulfate 90 mcg/actuation HFA aerosol inhaler 2 puff PO Q4H PRN (Reason: Respiratory Distress) omeprazole 20 mg capsule,delayed release(DR/EC) 20 mg PO DAILY@0630 metformin 1,000 mg tablet 1,000 mg PO BIDWM aspirin 81 mg tablet,delayed release (DR/EC) 81 mg PO DAILY bupropion HCl 150 mg tablet sustained-release 12 hr 150 mg PO BID atorvastatin 40 mg tablet 40 mg PO DAILY acetaminophen 325 mg capsule 325 mg PO QID PRN (Reason: Pain) Print Language: Kiswahili
--- NOTE | 2024-12-24 23:37 | ECG_ITS ---
Test Reason : ELEVATED POTASSIUM Blood Pressure : */* mmHG Vent. Rate : 63 BPM Atrial Rate : 63 BPM P-R Int : 156 ms QRS Dur : 84 ms QT Int : 430 ms P-R-T Axes : 71 5 22 degrees QTcB Int : 440 ms Normal sinus rhythm Normal ECG When compared with ECG of 13-Nov-2024 00:19, No significant change was found Referred By: Jose Martin Electronically Signed By: Omid De Guzman
[2024-12-25] MEDS: Bacitracin Oint 0.9 GM PACKET 1 APPL TOPICAL (00:14)
[2024-12-25] MEDS: Sodium Zirconium Cyclosilicate 10 GM POWD.PACK PO (00:14)
[2024-12-25 00:26] VITALS: BP 131/65; PULSE 66; RESP 13; TEMP 36.3; O2SAT 98
[2024-12-25 02:47] VITALS: BP 131/65; PULSE 66; RESP 13; TEMP 36.3; O2SAT 98
== END 2024-12-25 02:50 | disposition home or self-care (01) ==
PROVIDERS: Physician Assistant Medical; Emergency Provider Emergency Medicine Emergency Medical Services; PCP Internal Medicine
DX: E87.5 Hyperkalemia (principal); S91.205A Unspecified open wound of left lesser toe(s) with damage to nail, initial encounter; X58.XXXA Exposure to other specified factors, initial encounter; E11.22 Type 2 diabetes mellitus with diabetic chronic kidney disease; I13.0 Hypertensive heart and chronic kidney disease with heart failure and stage 1 through stage 4 chronic kidney disease, or unspecified chronic kidney disease; N18.30 Chronic kidney disease, stage 3 unspecified; I50.9 Heart failure, unspecified; E78.5 Hyperlipidemia, unspecified; J44.9 Chronic obstructive pulmonary disease, unspecified; F11.20 Opioid dependence, uncomplicated; Z86.711 Personal history of pulmonary embolism; Z89.511 Acquired absence of right leg below knee; Z79.82 Long term (current) use of aspirin; Z79.84 Long term (current) use of oral hypoglycemic drugs; Z79.4 Long term (current) use of insulin; Z79.899 Other long term (current) drug therapy; Z87.891 Personal history of nicotine dependence; Y93.9 Activity, unspecified; Y92.039 Unspecified place in apartment as the place of occurrence of the external cause; Y99.9 Unspecified external cause status
CPT/HCPCS: 36415; 80053; 85025; 93005; 99283; 99284

== ENCOUNTER → 2024-12-24 23:37 | Outpatient (BNV) | payer MEDICARE, MEDICAID, SELFPAY | PROVIDERS: Emergency Provider Emergency Medicine Emergency Medical Services; PCP Internal Medicine; Visit Provider Internal Medicine Cardiovascular Disease | DX: E87.5 Hyperkalemia (principal) | CPT/HCPCS: 93010 ==